=== PATIENT | male | born 1945 | race Caucasian/White ===

== ENCOUNTER 2018-07-18 15:43 | Inpatient (IN) | payer OTHER ==
--- OUTSIDE RECORDS SUMMARY | 2018-07-18 16:01 | XMS REPORT | Continuity of Care Document ---
:1945 Author Organization Interface Problems Problem Status Onset Classification Date Comments Source Date Reported Essential Active Problem 06/18/2018 Data Mischer tremor<sup>7, 8, 017 migrated Neuro 9</sup> from [employer] [facility] on 05/12/2016. Originally documented as Essential tremor. HEADACHE Active [facility] 017 [facility] FOOT PAIN OR Active [facility] INJURY 017 Hospital CELLULITIS OF Active [facility] RIGHT LOWER LIMB 017 [facility] Essential Active Problem 07/01/2016 Data [facility] tremor<sup>7</sup 017 migrated Rehab, > from [facility] Works on 05/12/2016. Originally documented as Essential tremor. WOUND Active [facility] 017 Rehab ACUTE RESPIRATORY Active [facility] FAILURE, ACUTE 016 Hospital RESPIRA SHORTNESS OF Active [facility] BREATH 016 [facility] ACUTE COPD Active [facility] EXACERBATION 016 [facility] COPD Active [facility] 016 [facility] 305.1 - TOBACCO Active OPID [facility] USE DIS 015 Tobacco Active Problem 06/18/2018 Data Mischer dependence 015 migrated Neuro syndrome<sup>22, from GE 23</sup> [facility] on 08/12/14. Tobacco Active Problem 07/23/2015 Data [facility] dependence 015 migrated Hospital syndrome<sup>19, from GE 20</sup> [facility] on 08/12/14. Tobacco Active Problem 07/01/2016 Data [facility] dependence 015 migrated Rehab, syndrome<sup>20, from GE [facility] 21</sup> [facility] on 08/12/14. TOBACCO ABUSE Active Condition 07/23/2014 Medical 015 Group Carotid Active Problem 06/18/2018 Data Mischer bruit<sup>1, 015 migrated Neuro, 2</sup> from [facility] Rehab, on 08/12/14. [facility] Weight Active Problem 06/18/2018 Data Mischer decreased<sup>24, 015 migrated Neuro 25</sup> from [facility] on 08/12/14. Weight Active Problem 07/23/2015 Data [facility] decreased<sup>21, 015 migrated Hospital 22</sup> from [facility] on 08/12/14. Weight Active Problem 07/01/2016 Data [facility] decreased<sup>22, 015 migrated Rehab, 23</sup> from [facility] on 08/12/14. LOSS OF WEIGHT Active Condition 07/23/2014 Medical 015 Group CAROTID BRUIT, Active Condition 07/23/2014 Medical RIGHT 015 Group PNEUMONIA Active [facility] 015 Hospital COPD EXACERBATION Active [address] RASH AND OTHER Inactive Condition 07/23/2014 [facility] NONSPECIFIC SKIN 015 Group ERUPTION RASH Active [facility] 014 Hospital CELLULITIS FAILED Active [facility] OUTPATIENT 014 Hospital THERAPY Erysipelas<sup>6< Resolved Problem 06/18/2018 Data Mischer /sup> 014 migrated Neuro, from [facility] Re[facility], on 09/26/14. 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 [facility] Hypogonadism<sup> Active Problem 06/18/2018 Data Mischer 10, 11, 12</sup> 014 migrated Neuro from [facility] on 08/12/14. Hypothyroidism<arboleda Active Problem 06/18/2018 Data Mischer p>13, 14, 014 migrated Neuro 15</sup> from [facility] on 08/12/14. Osteoporosis<sup> Active Problem 06/18/2018 Data Mischer 16, 17, 18</sup> 014 migrated Neuro from [facility] on 08/12/14. Peripheral Active Problem 06/18/2018 Data Mischer vascular 014 migrated Neuro disease<sup>19, from GE 20, 21</sup> [facility] on 08/12/14. Hypogonadism<sup> Active Problem 07/23/2015 Data [facility] 7, 8, 9</sup> 014 migrated Hospital from [facility] on 08/12/14. Hypothyroidism<arboleda Active Problem 07/23/2015 Data [facility] p>10, 11, 014 migrated Hospital 12</sup> from [facility] on 08/12/14. Osteoporosis<sup> Active Problem 07/23/2015 Data [facility] 13, 14, 15</sup> 014 migrated Hospital from [facility] on 08/12/14. Peripheral Active Problem 07/23/2015 Data [facility] vascular 014 migrated Hospital disease<sup>16, from 17, 18</sup> [facility] on 08/12/14. Hypogonadism<sup> Active Problem 07/01/2016 Data [facility] 8, 9, 10</sup> 014 migrated Rehab, from [facility] on 08/12/14. Hypothyroidism<arboleda Active Problem 07/01/2016 Data [facility] p>11, 12, 014 migrated Rehab, 13</sup> from [facility] on 08/12/14. Osteoporosis<sup> Active Problem 07/01/2016 Data [facility] 14, 15, 16</sup> 014 migrated Rehab, from [facility] on 08/12/14. Peripheral Active 09/16/2 Problem 07/01/2016 Data [facility] vascular 014 migrated Rehab, disease<sup>17, from [facility] 18, 19</sup> [facility] on 08/12/14. HYPOTHYROIDISM Active Condition 07/23/2014 Medical 014 Group HYPOGONADISM Active Condition 07/23/2014 Medical 014 Group SHOULDER PAIN, Inactive Condition 07/23/2014 Medical LEFT 014 Group PERIPHERAL Active Condition 07/23/2014 Medical VASCULAR DISEASE 014 Group OSTEOPOROSIS Active Condition 07/23/2014 Medical 014 Group NEOPLASM, SKIN, Inactive Condition 07/23/2014 Medical UNCERTAIN 014 Group BEHAVIOR COPD Active Condition 07/23/2014 Medical 014 Group DYSPNEA Active [address] Cellulitis Resolved Problem 06/18/2018 [facility] Neuro,[facility] Rehab,[facility] COPD Active Problem 06/18/2018 VERONICA Tavares,[facility] Neuro Hx of Resolved Problem 06/18/2018 [facility] osteoporosis Neuro,[facility] Rehab,[facility] Hypertension Active Problem 06/18/2018 [facility] Neuro,[facility] Rehab,[facility] Hypothyroidism Resolved Problem 06/18/2018 [facility] Rehab,[facility] PAD (<span Active Problem 06/18/2018 Mischer ID="[id number]"> Neuro, Confirmed</span>) OPID Anusha,[facility] Rehab,[facility] PVD (<span Active Problem 09/11/2017 Mischer ID="[id number]" Neuro, >Confirmed</span> Anusha ) Rehab,[facility] Short-term memory Active Problem 06/18/2018 [facility] loss Neuro Current smoker Active Problem 06/18/2018 [facility] Neuro,[facility] Rehab,[facility] COPD Active Problem 07/01/2016 OPID [facility] COPD Resolved Problem 09/14/2012 [facility] COPD Active Problem 07/01/2016 OPID Anusha,[facility] Rehab Cellulitis of Active Diagnosis 02/18/2017 W Kristin right lower limb Infectious Disease RESPIRATORY Active [facility] ABNORM [facility] CHR AIRWAY Active [facility] OBSTRUCT NEC Hospital CELLULITIS NOS Active [facility] CHRONIC Active [facility] OBSTRUCTIVE [facility] PULMON DISEASE W ACU ACUTE RESPIRATORY Active [facility] FAILURE, UNSP W Hospital HYPOXI Medications Medication Details Route Status Patient Ordering Order Source Instructions Provider Date rivastigmine See Active 06/26/ Mischer 1.5 mg oral Instructions 2018 Neuro capsule , # 180 unknown unit, Refill(s) 3, TAKE 1 CAPSULE BY MOUTH TWICE DAILY, Pharmacy: [facility] [id number] primidone 50 mg See Active 06/05/ Mischer oral tablet Instructions 2018 Neuro , 4 tabs twice a day, # 720 tab, 3 Refill(s), Pharmacy: [facility] [id number] Megestrol See Active 05/12/ Mischer Acetate 40 Instructions 2018 Neuro MG/ML Oral , # 600 mL, Suspension SHAKE WELL AND TAKE 20 ML BY MOUTH EVERY DAY, Pharmacy: [facility] [id number] rivastigmine 1.5 mg=1 No Longer 04/24/ Mischer 1.5 mg oral cap, PO, Active 2017 Neuro capsule BID, # 60 cap, 3 Refill(s), Pharmacy: [facility] [id number] diazepam 2 mg 2 mg=1 tab, Active Mischer oral tablet PO, Daily, 2018 Neuro PRN Tremor, X 30 day, # 30 tab, 3 Refill(s) Enoxaparin 40 mg, 0.4 No Longer 06/29/ [facility] mL, Route: Active 2017 [facility] SUB-Q, Drug form: INJ, [id number], Dosing Weight 71.682, kg, Change to Q AM, Start date: 06/29/16 9:00:00 CDT, Stop date: 07/28/16 9:00:00 CDTNotes: (Same as: Lovenox) Miralax 17 gm, 1 Inactive 06/28/ [facility] pkt, Route: 2017 Hospital PO, Drug form: PWDR, Daily, Dosing Weight 71.682, kg, Start date: 06/28/16 13:31:00 CDT, Duration: 30 day, Stop date: 07/28/16 9:00:00 CDTNotes: Dissolve in 8 oz of water or juice. (Same as: Miralax) Dulcolax 10 mg, 1 Inactive [facility] Laxative supp, Route: [address] [facility] [address], Drug form: SUPP, ONCE, Dosing Weight 71.682, kg, PRN Constipation , Start date: 06/28/16 13:16:00 CDTNotes: (Same As: Dulcolax, Bisco-Lax) metoprolol 75 mg, 3 Inactive [facility] tartrate tab, Route: 2017 [facility] PO, Drug form: TAB, BID, Dosing Weight 71.682, kg, Start date: 06/28/16 12:00:00 CDT, Stop date: 07/28/16 0:00:00 CDTNotes: (Same as: Lopressor) metoprolol 50 mg=1 tab, Active [facility] tartrate 50 mg PO, BID, # 2017 Hospital oral tablet 60 tab, 0 Refill(s) Nystatin 426289 500,000 Active [facility] UNT/ML Oral unit=5 mL, 2017 Hospital Suspension S&SPIT, QID, X 7 day, # 140 mL, 0 Refill(s) amLODIPine 10 10 mg=1 tab, Active [facility] mg oral tablet PO, Daily, # 2017 Hospital 30 tab, 0 Refill(s) metoprolol 50 mg, 1 No Longer [facility] tartrate tab, Route: Active [address] [place] [address] PO, Drug form: TAB, BID, Dosing Weight 71.682, kg, Start date: 06/25/16 21:00:00 CDT, Stop date: 07/25/16 9:00:00 CDTNotes: (Same as: Lopressor) Levaquin 500 mg, 1 No Longer [facility] tab, Route: Active 2017 [facility] PO, Drug form: TAB, [id number], Dosing Weight 71.682, kg, Start date: 06/25/16 15:00:00 CDT, Duration: 7 day, Stop date: 07/01/16 15:00:00 CDT cholecalciferol 1,000 No Longer [facility] IntlUnit, 1 Active 2017 Hospital tab, Route: PO, Drug form: TAB, Daily, Dosing Weight 71.682, kg, Start date: 06/25/16 9:00:00 CDT, Duration: 30 day, Stop date: 07/24/16 9:00:00 CDTNotes: Same as : Vitamin D3 clopidogrel 75 mg, 1 No Longer [facility] tab, Route: Active 2017 Hospital PO, Drug form: TAB, Daily, Dosing Weight 71.682, kg, Start date: 06/25/16 9:00:00 CDT, Duration: 30 day, Stop date: 07/24/16 9:00:00 CDTNotes: (Same As: Plavix) Vitamin E 400 No Longer An[facility] IntlUnit, 1 Active 2017 Hospital cap, Route: PO, Drug form: CAP, Daily, Dosing Weight 71.682, kg, Start date: 06/25/16 9:00:00 CDT, Duration: 30 day, Stop date: 07/24/16 9:00:00 CDT Furosemide 20 20 mg, 1 No Longer An[facility] MG Oral Tablet tab, Route: Active 2017 Hospital PO, Drug form: TAB, Daily, Dosing Weight 71.682, kg, Start date: 06/25/16 9:00:00 CDT, Duration: 30 day, Stop date: 07/24/16 9:00:00 CDTNotes: (Same as: Lasix) May cause GI upset. Give with food or milk. Fish Oil 1,000 mg, 1 No Longer [facility] cap, Route: Active 2017 Hospital PO, Drug form: CAP, Daily, Dosing Weight 71.682, kg, Start date: 06/25/16 9:00:00 CDT, Duration: 30 day, Stop date: 07/24/16 9:00:00 CDTNotes: (Same as: MaxEPA, [place] 3 fish oil ) Non-Formular y Drug Vitamin C 2,000 mg, 4 No Longer [facility] tab, Route: Active 2017 Hospital PO, Drug form: TAB, Daily, Dosing Weight 71.682, kg, Start date: 06/25/16 9:00:00 CDT, Duration: 30 day, Stop date: 07/24/16 9:00:00 CDTNotes: (Same as: Vitamin C) Spiriva 18 No Longer An[facility] microgram, 1 Active 2017 Hospital inhalation, Route: INHALATION, Drug form: CAP, RDaily, Dosing Weight 71.682, kg, Start date: 06/25/16 8:00:00 CDT, Duration: 30 day, Stop date: 07/24/16 8:00:00 CDTNotes: (Same As: Spiriva) metoprolol 25 mg, 1 No Longer [facility] tartrate tab, Route: Active 2017 Hospital PO, Drug form: TAB, BID, Dosing Weight 71.682, kg, Start date: 06/24/16 23:50:00 CDT, Stop date: 07/24/16 21:00:00 CDTNotes: (Same as: Lopressor) atorvastatin 10 mg, 1 No Longer [facility] tab, Route: Active 2017 Hospital PO, Drug form: TAB, Bedtime, Dosing Weight 71.682, kg, Start date: 06/24/16 21:00:00 CDT, Duration: 30 day, Stop date: 07/23/16 21:00:00 CDTNotes: (Same As: Lipitor) Symbicort 2 puff, No Longer An[facility] 160/4.5 Route: Active 2017 Hospital inhalation INHALATION, aerosol with Drug Form: adapter AERO/A, Dosing Weight 71.682, kg, RBID, Start date: 06/24/16 20:00:00 CDT, Duration: 30 day, Stop date: 07/24/16 8:00:00 CDTNotes: (Same as: Symbicort) WASTE: Aerosol - Return to Pharmacy pantoprazole 40 mg, 1 No Longer [facility] tab, Route: Active 2017 Hospital PO, Drug form: ECTAB, Before Dinner, Dosing Weight 71.682, kg, Start date: 06/24/16 16:30:00 CDT, Duration: 30 day, Stop date: 07/23/16 16:30:00 CDTNotes: Tablet should not be chewed or crushed. (Same as: Protonix) Amlodipine 10 mg, 1 No Longer [facility] tab, Route: Active 2017 Hospital PO, Drug form: TAB, Daily, Dosing Weight 71.682, kg, Start date: 06/24/16 14:00:00 CDT, Stop date: 07/24/16 9:00:00 CDTNotes: (Same as: Norvasc) Primidone 50 mg, 1 No Longer [facility] tab, Route: Active [address] [place] [address] PO, Drug form: TAB, TID, Dosing Weight 71.682, kg, Start date: 06/24/16 13:00:00 CDT, Duration: 30 day, Stop date: 07/24/16 9:00:00 CDTNotes: (Same as: Mysoline) Albuterol 0.83 2.49 mg, 3 No Longer [facility] MG/ML Inhalant mL, Route: Active [address] [place] [address] Solution INHALATION, Drug form: SOLN, RQ4H, Dosing Weight 71.682, kg, PRN Wheezing, Start date: 06/24/16 3:09:00 CDT, Duration: 30 day, Stop date: 07/24/16 3:08:00 CDTNotes: SEE RT DOCUMENTATIO N (Same as: Proventil) vancomycin + 1,250 mg, No Longer An[facility] sodium chloride Route: IVPB, [address] 0.9% 250 mL INJ [id number], (for IV set) Start date: 250 mL 06/23/16 11:00:00 CDT, Duration: 30 day, Stop date: 07/22/16 23:00:00 CDTNotes: TIME CRITICAL MEDICATION (Same As: Vancocin) Infusion rate 2001 mg: infuse over 2.5 hours MEDICATION WASTE Product Size: 1000 mg Product Wasted: ___ mg ketOROLAC 15 15 mg, 0.5 No Longer [facility] mg/mL mL, Route: [address] injectable IVP, Drug solution form: INJ, Q6H, Dosing Weight 71.682, kg, PRN Pain Score 7-10, Start date: 06/22/16 21:27:00 CDT, Duration: 4 day, Stop date: 06/26/16 21:26:00 CDTNotes: (Same as:Toradol) IV bolus must be given >15 seconds. Give IM administrati on slowly and deeply into the muscle. Not for use > 4 days MEDICATION WASTE Product Size: 30 mg Product Wasted: _15__ mg Tylenol 650 mg, 1 No Longer An[facility] supp, Route: Active [address] [facility] [address], Drug form: SUPP, Q4H, Dosing Weight 71.682, kg, PRN For Temp > 100.4 F, Start date: 06/22/16 21:19:00 CDT, Duration: 30 day, Stop date: 07/22/16 21:18:00 CDTNotes: Max acetaminophe k=8426 mg/day (4 gm/day). (Same as: Tylenol) Levofloxacin 750 mg, 150 No Longer [facility] mL, Route: Active 2017 [facility] IVPB, Drug form: SOLN, [id number], Dosing Weight 71.682, kg, For CrCl > 49ml/min, Start date: 06/22/16 21:00:00 CDT, Duration: 10 day, Stop date: 07/01/16 21:00:00 CDTNotes: (Same as:Levaquin) Levofloxacin 500 mg, 100 Inactive An[facility] mL, Route: 2017 [facility] IVPB, Drug form: SOLN, [id number], Dosing Weight 71.682, kg, Start date: 06/22/16 20:00:00 CDT, Duration: 30 day, Stop date: 07/21/16 20:00:00 CDTNotes: (Same as:Levaquin) Hydralazine 10 mg, 0.5 Inactive [facility] mL, Route: [address] [place] [address] IV, Drug form: INJ, ONCE, Dosing Weight 71.682, kg, Start date: 06/22/16 18:32:00 CDT, Stop date: 06/22/16 18:32:00 CDTNotes: (Same as: Apresoline) Push over 5 minutes sodium chloride 1,000 mL, No Longer [facility] 0.9% 1000 ml Rate: [address] [place] [address] INJ 1,000 mL ml/hr, Infuse over: 20 hr, Route: IV, Dosing Weight 71.682 kg, Total Volume: 1,000, Start date: 06/22/16 18:30:00 CDT, Duration: 30 day, Stop date: 07/22/16 18:29:00 CDT Vancomycin 1,000 mg, No Longer An[facility] Route: IVPB, Active [address] [place] [address] [id number], Dosing Weight 71.682, kg, Start date: 06/22/16 10:00:00 CDT, Duration: 30 day, Stop date: 07/21/16 22:00:00 CDTNotes: MEDICATION WASTE Product Size: 1000 mg Product Wasted: _0__ mg Hydralazine 10 mg, 0.5 No Longer An[facility] mL, Route: Active 2017 [facility] IVP, Drug form: INJ, Q4H, Dosing Weight 71.682, kg, PRN Hypertension , Start date: 06/22/16 5:35:00 CDT, Duration: 30 day, Stop date: 07/22/16 5:34:00 CDT Dilaudid 1 mg, 0.5 Inactive An[facility] mL, Route: 2017 [facility] IVP, Drug form: INJ, Q4H, Dosing Weight 71.682, kg, PRN Pain Score 7-10, Start date: 06/22/16 5:34:00 CDT, Duration: 30 day, Stop date: 07/22/16 5:33:00 CDTNotes: Same as Dilaudid Albuterol 0.833 3 mL, Route: No Longer [facility] MG/ML / NEB, Drug Active [address] [place] [address] Ipratropium Form: SOLN, [place] 0.167 Dosing MG/ML Inhalant Weight Solution 71.682, kg, RQ6H, Start date: 06/22/16 2:00:00 CDT, Duration: 30 day, Stop date: 07/21/16 20:00:00 CDTNotes: (Same as: Duoneb) Nystatin [id number] 500,000 No Longer [facility] UNT/ML Oral unit, 5 mL, Active 2017 Hospital Suspension Route: S&SPIT, Drug form: SUSP, QID, Dosing Weight 71.682, kg, Start date: 06/22/16 0:00:00 CDT, Duration: 30 day, Stop date: 07/21/16 21:00:00 CDT Albuterol 0.83 2.49 mg, 3 No Longer [facility] MG/ML Inhalant mL, Route: Active 2017 Hospital Solution NEB, Drug form: SOLN, RQ2H, Dosing Weight 71.682, kg, PRN Respiratory Protocol, Start date: 06/21/16 23:08:00 CDT, Duration: 30 day, Stop date: 07/21/16 23:07:00 CDTNotes: SEE RT DOCUMENTATIO N (Same as: Proventil) Enoxaparin 40 mg, 0.4 No Longer [facility] mL, Route: Active 2017 Hospital SUB-Q, Drug form: INJ, [id number], Dosing Weight 71.682, kg, Start date: 06/21/16 23:00:00 CDT, Duration: 30 day, Stop date: 07/20/16 23:00:00 CDTNotes: (Same as: Lovenox) Albuterol 0.83 2.49 mg, Inactive [facility] MG/ML Inhalant Route: BANNER, 2016 Hospital Solution PRN, Dosing Weight 71.682, kg, PRN Respiratory Protocol, Start date: 06/21/16 22:54:00 CDT, Duration: 30 day, Stop date: 07/21/16 22:53:00 CDT Albuterol 0.833 3 mL, Route: Inactive An[facility] MG/ML / NEB, Dosing 2017 Hospital Ipratropium Weight [place] 0.167 71.682, kg, MG/ML Inhalant PRN, PRN Solution Respiratory Protocol, Start date: 06/21/16 22:54:00 CDT, Duration: 30 day, Stop date: 07/21/16 22:53:00 CDT Guaifenesin 200 mg, 10 No Longer [facility] mL, Route: Active 2017 Hospital PO, Drug form: SYRP, Q4H, Dosing Weight 71.682, kg, PRN Cough, Start date: 06/21/16 22:54:00 CDT, Duration: 30 day, Stop date: 07/21/16 22:53:00 CDTNotes: (Same as: Robitussin) Sodium Chloride 1,000 mL, No Longer [facility] 0.154 MEQ/ML Rate: 125 Active 2017 Hospital Injectable ml/hr, Solution Infuse over: 8 hr, Route: IV, Dosing Weight 71.682 kg, Total Volume: 1,000, Start date: 06/21/16 22:51:00 CDT, Duration: 30 day, Stop date: 07/21/16 22:50:00 CDT Saline Flush 10 ml, Inactive An[facility]a 0.9% Route: IVP, 2016 [facility] Drug Form: INJ, Dosing Weight 71.682, kg, PRN, PRN Line Flush, Start date: 06/21/16 22:51:00 CDT, Duration: 30 day, Stop date: 07/21/16 22:50:00 CDT Acetaminophen 650 mg, 2 No Longer [facility] tab, Route: Active 2016 [facility] PO, Drug form: TAB, Q4H, Dosing Weight 71.682, kg, PRN Pain 1-3/Temp > 100.4 F, Start date: 06/21/16 22:51:00 CDT, Duration: 30 day, Stop date: 07/21/16 22:50:00 CDT Ondansetron 4 mg, 2 mL, No Longer An[facility] Route: IVP, Active 2016 [facility] Drug form: INJ, Q6H, Dosing Weight 71.682, kg, PRN Nausea & Vomiting, Start date: 06/21/16 22:51:00 CDT, Duration: 30 day, Stop date: 07/21/16 22:50:00 CDTNotes: (Same as: Stephania) MEDICATION WASTE Product Size: 4 mg Product Wasted: ___ mg Acetaminophen 1 tab, No Longer Anusha 325 MG / Route: PO, Active 2016 [facility] Hydrocodone Drug Form: Bitartrate 5 MG TAB, Dosing Oral Tablet Weight 71.682, kg, Q4H, PRN Pain Score 4-6, Start date: 06/21/16 22:51:00 CDT, Duration: 30 day, Stop date: 07/21/16 22:50:00 CDT Morphine 2 mg, 1 mL, No Longer An[facility] Route: IVP, Active 2016 [facility] Drug form: SOLN, Q4H, Dosing Weight 71.682, kg, PRN Pain Score 7-10, Start date: 06/21/16 22:51:00 CDT, Duration: 30 day, Stop date: 07/21/16 22:50:00 CDT vancomycin + 1,750 mg, Inactive [facility] sodium chloride Route: IVPB, [address] [place] [address] 0.9% 500 mL INJ ONCE, Start (for IV set) date: 500 mL 06/21/16 22:00:00 CDT, Stop date: 06/21/16 22:00:00 CDTNotes: MEDICATION WASTE Product Size: 1750 mg Product Wasted: __0_ mg Furosemide 20 PO, 0 Active An[facility]a MG Oral Tablet Refill(s) 2017 [facility] pantoprazole 40 40 mg=1 tab, Active [facility] mg oral enteric PO, Daily, 0 2017 [facility] coated tablet Refill(s) Symbicort 2 puff, Active [facility] 160/4.5 INHALATION, [address] [place] [address] inhalation BID, 0 aerosol with Refill(s) adapter Vancomycin 1,000 mg, Inactive An[facility] Route: IVPB, [address] [place] [address] Drug form: INJ, ONCE, Dosing Weight 69.091, kg, Priority: STAT, Start date: 06/21/16 20:24:00 CDT, Stop date: 06/21/16 20:24:00 CDT, TIME CRITICAL MEDICATION Ciprofloxacin 400 mg, Inactive An[facility]a Route: IVPB, [address] [place] [address] ONCE, Dosing Weight 69.091, kg, Priority: STAT, Start date: 06/21/16 20:24:00 CDT, Stop date: 06/21/16 20:24:00 CDT Albuterol 0.833 3 ml, Route: Inactive Anusha MG/ML / INHALATION, 2017 [facility] Ipratropium Drug Form: [place] 0.167 SOLN, Dosing MG/ML Inhalant Weight Solution 69.091, kg, [DuoNeb] ONCE, Start date: 06/21/16 20:12:00 CDT, Stop date: 06/21/16 20:12:00 CDTNotes: (Same as: Duoneb) Acetaminophen 650 mg, 2 Inactive [facility] tab, Route: 2017 Hospital PO, Drug form: TAB, ONCE, Dosing Weight 69.091, kg, Priority: STAT, Start date: 06/21/16 19:42:00 CDT, Stop date: 06/21/16 19:42:00 CDTNotes: Do not exceed 4 gm/day. (Same as: Tylenol) Sodium Chloride 25 mL, No Longer An[facility] 0.9% IV Route: IV, Active 2017 Hospital Start date: 06/21/16 18:40:00 CDT, Duration: 30 day, Stop date: 07/21/16 18:39:00 CDT, PRN Line Flush Hydralazine 20 mg, 1 mL, Inactive An[facility] Route: IVP, 2016 [facility] Drug form: INJ, ONCE, Dosing Weight 69.091, kg, Priority: STAT, Start date: 06/21/16 18:36:00 CDT, Stop date: 06/21/16 18:36:00 CDTNotes: (Same as: Apresoline) Push over 5 minutes Morphine 4 mg, 1 mL, Inactive An[facility] Route: IVP, 2017 [facility] Drug form: INJ, ONCE, Dosing Weight 69.091, kg, Priority: STAT, Start date: 06/21/16 18:36:00 CDT, Stop date: 06/21/16 18:36:00 CDTNotes: (Same as:MORPhine Sulfate) Morphine 4 mg, 1 mL, Inactive An[facility]a Route: IVP, 2017 [facility] Drug form: INJ, ONCE, Dosing Weight 69.091, kg, Priority: STAT, Start date: 06/21/16 15:38:00 CDT, Stop date: 06/21/16 15:38:00 CDTNotes: (Same as:MORPhine Sulfate) Diphenhydramine 25 mg, 0.5 Inactive An[facility] mL, Route: 2017 [facility] IVP, Drug form: INJ, ONCE, Dosing Weight 69.091, kg, Priority: STAT, Start date: 06/21/16 15:38:00 CDT, Stop date: 06/21/16 15:38:00 CDTNotes: (Same as: Benadryl) Metoclopramide 10 mg, 2 mL, Inactive An[facility] Route: IVP, [address] [place] [address] Drug form: INJ, ONCE, Dosing Weight 69.091, kg, Priority: STAT, Start date: 06/21/16 15:38:00 CDT, Stop date: 06/21/16 15:38:00 CDTNotes: (Same as: Reglan) Sodium Chloride 1,000 mL, Inactive An[facility] 0.154 MEQ/ML 1000 ml/hr, 2017 [facility] Injectable Infuse Over: Solution 1 hr, Route: IV, 1,000, Drug form: INJ, ONCE, Priority: STAT, Dosing Weight 69.091 kg, Start date: 06/21/16 15:38:00 CDT, Duration: 1 doses or times, Stop date: 06/21/16 15:38:00 CDT Saline Flush 10 mL, No Longer An[facility] 0.9% Route: IVP, Active [address] [place] [address] Drug Form: INJ, Dosing Weight 69.091, kg, PRN, PRN Line Flush, Start date: 06/21/16 14:29:00 CDT, Duration: 30 day, Stop date: 07/21/16 14:28:00 CDTNotes: (Same as: BD Posiflush) Doxycycline 100 mg, 1 Inactive Anusha cap, Route: [address] [place] [address] PO, Drug form: CAP, [id number], Dosing Weight 74.545, kg, Start date: 05/18/16 15:00:00 [employer], Duration: 28 day, Stop date: 06/15/16 3:00:00 CDTNotes: (Same as: Vibramycin) No milk/antacid s/iron. Ciprofloxacin 500 mg, 1 Inactive Anusha tab, Route: [address] [place] [address] PO, Drug form: TAB, [id number], Dosing Weight 74.545, kg, Start date: 05/18/16 15:00:00 [employer], Duration: 14 day, Stop date: 06/01/16 3:00:00 CDTNotes: May interfere w/enteral feedings - Take 1 hr before or 2 hrs after antacids, dairy pdt & minerals. On empty stomach. minocycline 100 100 mg=1 Active Anusha mg oral capsule cap, PO, 2017 [facility] Q12H, X 30 day, # 60 cap, 0 Refill(s), [facility] [id number] ciprofloxacin 500 mg=1 Active Anusha 500 mg oral tab, PO, 2017 [facility] tablet Q12H, X 30 day, # 60 tab, 0 Refill(s), [id number] Nicotine 14 mg, 1 Inactive Anusha patch, 2017 [facility] Route: TOP, Drug form: ERFILM, Daily, Dosing Weight 74.545, kg, Start date: 05/18/16 9:00:00 [employer], Duration: 30 day, Stop date: 06/16/16 9:00:00 CDTNotes: (Same as: Habitrol) "Remove old patch before application of new patch" WASTE: F/P - P Waste Black; E - P Waste Black Protonix 40 mg, 1 Inactive Anusha tab, Route: 2017 [facility] PO, Drug form: ECTAB, Before Breakfast, Dosing Weight 74.545, kg, Start date: 05/18/16 7:30:00 [employer], Duration: 30 day, Stop date: 06/16/16 7:30:00 CDTNotes: Tablet should not be chewed or crushed. (Same as: Protonix) vancomycin + 1,000 mg, Inactive Anusha sodium chloride Route: IVPB, [address] [place] [address] 0.9% INJ 250 mL [id number], Start date: 05/18/16 6:30:00 [employer], Duration: 30 day, Stop date: 06/16/16 18:30:00 CDTNotes: TIME CRITICAL MEDICATION (Same As: Vancocin) Infusion rate 2001 mg: infuse over 2.5 hours MEDICATION WASTE Product Size: 1000 mg Product Wasted: _0__ mg Cleocin HCl 600 mg, 50 No Longer Anusha mL, Route: Active 2017 [facility] IVPB, Drug form: INJ, [id number], Start date: 05/17/16 21:30:00 [employer], Duration: 30 day, Stop date: 06/16/16 13:30:00 CDT atorvastatin 10 mg, 1 No Longer Anusha tab, Route: Active 2017 [facility] PO, Drug form: TAB, Bedtime, Dosing Weight 74.545, kg, Start date: 05/17/16 21:00:00 [employer], Duration: 30 day, Stop date: 06/15/16 21:00:00 CDTNotes: (Same As: Lipitor) Symbicort 2 No Longer Anusha 160/4.5 inhalation, Active 2017 [facility] inhalation Route: aerosol with INHALATION, adapter Drug Form: AERO/A, Dosing Weight 74.545, kg, RBID, Start date: 05/17/16 20:00:00 [employer], Duration: 30 day, Stop date: 06/16/16 8:00:00 CDTNotes: (Same as: Symbicort) WASTE: Aerosol - Return to Pharmacy Vitamin C 1000 2,000 mg=2 Active Anusha mg oral tablet tab, PO, 2017 [facility] Daily, # 30 tab, 0 Refill(s) Spiriva 18 Active Anusha microgram, 2017 [facility] INHALATION, Daily, # 30 ea, 0 Refill(s) vitamin E 400 400 Active Anusha intl units oral IntlUnit=[address] [place] [address] capsule cap, PO, Daily, # 100 cap, 0 Refill(s) predniSONE 50 See Active Anusha mg oral tablet Instructions [address] [place] [address] , PRN Allergies, 1 tab PO PRN asthma attacks., 0 Refill(s) clopidogrel 75 75 mg=1 tab, Active Anusha mg oral tablet PO, Daily, # 2017 [facility] 30 tab, 0 Refill(s) levofloxacin 500 mg=1 No Longer Anusha 500 mg oral tab, PO, Active 2017 [facility] tablet Daily, # 10 tab, 0 Refill(s) cholecalciferol 1,000 Active Anusha 1000 intl units IntlUnit=1 2017 [facility] oral tablet tab, PO, Daily, # 30 tab, 0 Refill(s) vancomycin + 1,750 mg, Inactive Anusha sodium chloride Route: IVPB, [address] [place] [address] 0.9% 500 mL INJ ONCE, Start (for IV set) date: 500 mL 05/17/16 17:30:00 [employer], Stop date: 05/17/16 17:30:00 CSTNotes: TIME CRITICAL MEDICATION (Same As: Vancocin) Infusion rate 2001 mg: infuse over 2.5 hours MEDICATION WASTE Product Size: 1000 mg Product Wasted: _250__ mg Primidone 50 mg, 1 No Longer Anusha tab, Route: Active 2017 [facility] PO, Drug form: TAB, TID, Dosing Weight 74.545, kg, Start date: 05/17/16 17:00:00 [employer], Duration: 30 day, Stop date: 06/16/16 13:00:00 CDTNotes: (Same as: Mysoline) Enoxaparin 40 mg, 0.4 No Longer Anusha mL, Route: Active 2016 [facility] SUB-Q, Drug form: INJ, [id number], Dosing Weight 74.545, kg, Start date: 05/17/16 17:00:00 [employer], Duration: 30 day, Stop date: 06/15/16 17:00:00 CDTNotes: (Same as: Lovenox) metoprolol 25 mg, 1 No Longer Anusha tartrate tab, Route: Active 2017 [facility] PO, Drug form: TAB, Q12H, Dosing Weight 74.545, kg, Priority: STAT, Start date: 05/17/16 16:42:00 [employer], Duration: 30 day, Stop date: 06/16/16 9:00:00 CDTNotes: (Same as: Lopressor) Ondansetron 4 mg, 2 mL, No Longer Anusha Route: IVP, Active 2016 [facility] Drug form: INJ, Q8H, Dosing Weight 74.545, kg, PRN Nausea & Vomiting, Start date: 05/17/16 16:41:00 [employer], Duration: 30 day, Stop date: 06/16/16 16:40:00 CDTNotes: (Same as: Zofran) MEDICATION WASTE Product Size: 4 mg Product Wasted: _0__ mg Simethicone 80 mg, 1 No Longer Anusha tab, Route: Active 2017 [facility] PO, Drug form: CHEWTAB, Q6H, Dosing Weight 74.545, kg, PRN Gas, Start date: 05/17/16 16:41:00 [employer], Duration: 2 doses or times, Stop date: Limited # of timesNotes: (Same as: Mylicon) Bisacodyl 10 mg, 1 No Longer Anusha supp, Route: Active 2017 [facility] [address], Drug form: SUPP, Daily, Dosing Weight 74.545, kg, PRN Constipation , Start date: 05/17/16 16:41:00 [employer], Duration: 30 day, Stop date: 06/16/16 16:40:00 CDTNotes: (Same As: Dulcolax, Bisco-Lax) Acetaminophen 650 mg, 2 No Longer Anusha tab, Route: Active 2017 [facility] PO, Drug form: TAB, Q4H, Dosing Weight 74.545, kg, PRN For Temp > 100.4 F, Start date: 05/17/16 16:41:00 [employer], Duration: 30 day, Stop date: 06/16/16 16:40:00 CDTNotes: Do not exceed 4 gm/day. (Same as: Tylenol) Tessalon Perles 100 mg, 1 No Longer Anusha cap, Route: Active 2017 [facility] PO, Drug form: CAP, Q8H, Dosing Weight 74.545, kg, PRN Cough, Start date: 05/17/16 16:41:00 [employer], Duration: 30 day, Stop date: 06/16/16 16:40:00 CDTNotes: (Same As: Tessalon Perles) "Do Not Crush" Loratadine 10 mg, 1 No Longer Anusha tab, Route: Active 2017 [facility] PO, Drug form: TAB, Daily, Dosing Weight 74.545, kg, PRN Allergies, Start date: 05/17/16 16:41:00 [employer], Duration: 30 day, Stop date: 06/16/16 16:40:00 CDTNotes: 1 hr before meals (Same as: Claritin) Non-formular y item Hydralazine 10 mg, 0.5 No Longer Anusha mL, Route: Active 2017 [facility] IVP, Drug form: INJ, Q4H, Dosing Weight 74.545, kg, PRN Elevated BP, SBP > 160 mmhg, Start date: 05/17/16 16:41:00 [employer], Duration: 30 day, Stop date: 06/16/16 16:40:00 CDTNotes: (Same as: Apresoline) Push over 5 minutes Acetaminophen 1 tab, No Longer Anusha 325 MG / Route: PO, Active [address] [place] [address] Hydrocodone Drug Form: Bitartrate 5 MG TAB, Dosing Oral Tablet Weight [Hachita 5/325] 74.545, kg, Q4H, PRN Pain Score 1-3, Start date: 05/17/16 16:41:00 [employer], Duration: 30 day, Stop date: 06/16/16 16:40:00 CDTNotes: (Same as: Hachita 325/5) Do not exceed 4gm/day of acetaminophe n. Acetaminophen 2 tab, No Longer Anusha 325 MG / Route: PO, Active [address] [place] [address] Hydrocodone Drug Form: Bitartrate 10 TAB, Dosing MG Oral Tablet Weight [Hachita 10/325] 74.545, kg, Q6H, PRN Pain Score 7-10, Start date: 05/17/16 16:41:00 [employer], Duration: 30 day, Stop date: 06/16/16 16:40:00 CDTNotes: Do not exceed 4gm/day of acetaminophe n. (Same as: Hachita 325/10) Lorazepam 0.5 mg, 1 No Longer Anusha tab, Route: Active [address] [place] [address] PO, Drug form: TAB, Q8H, Dosing Weight 74.545, kg, PRN as needed for anxiety, Start date: 05/17/16 16:41:00 [employer], Duration: 30 day, Stop date: 06/16/16 16:40:00 CDTNotes: (Same as: Ativan) Morphine 1 mg, 0.5 No Longer Anusha mL, Route: Active [address] [place] [address] IVP, Drug form: SOLN, Q4H, Dosing Weight 74.545, kg, PRN Pain Score 7-10, if unable to take po, Start date: 05/17/16 16:41:00 [employer], Duration: 30 day, Stop date: 06/16/16 16:40:00 CDT Albuterol 0.833 3 mL, Route: No Longer Anusha MG/ML / NEB, Drug Active [address] [place] [address] Ipratropium Form: SOLN, [place] 0.167 Dosing MG/ML Inhalant Weight Solution 74.545, kg, RQID, PRN Shortness of breath, Start date: 05/17/16 16:41:00 [employer], Duration: 30 day, Stop date: 06/16/16 16:40:00 CDTNotes: (Same as: Duoneb) Vancomycin 1,118.175 Inactive Anusha mg, Route: 2017 [facility] IVPB, [id number], Dosing Weight 74.545, kg, TIME CRITICAL MEDICATION, Priority: STAT, Start date: 05/17/16 16:39:00 [employer], Duration: 30 day, Stop date: 06/16/16 8:39:00 CDT Clindamycin 600 mg, Inactive Anusha Route: IVPB, [address] [place], [place] [id number], Dosing Weight 74.545, kg, Priority: STAT, Start date: 05/17/16 16:39:00 [employer], Duration: 30 day, Stop date: 06/16/16 8:39:00 CDT Saline Flush 10 ml, No Longer Anusha 0.9% Route: IVP, Active [address] [place] [address] Drug Form: INJ, Dosing Weight 74.545, kg, PRN, PRN Line Flush, Start date: 05/17/16 16:39:00 [employer], Duration: 30 day, Stop date: 06/16/16 17:38:00 CDTNotes: (Same as: BD Posiflush) Sodium Chloride 1,000 mL, No Longer Anusha 0.154 MEQ/ML Rate: 100 Active 2017 [facility] Injectable ml/hr, Solution Infuse over: 10 hr, Route: IV, Dosing Weight 74.545 kg, Total Volume: 1,000, Start date: 05/17/16 16:39:00 [employer], Duration: 30 day, Stop date: 06/16/16 16:38:00 CDT Acetaminophen 650 mg, Inactive Anusha Route: PO, 2017 [facility] Drug form: TAB, Q4H, Dosing Weight 74.545, kg, PRN Pain 1-3/Temp > 100.4 F, Start date: 05/17/16 16:39:00 [employer], Duration: 30 day, Stop date: 06/16/16 16:38:00 CDT Clindamycin 600 mg, 50 Inactive Anusha mL, Route: [address] [place] [address] IVPB, Drug form: INJ, ONCE, Dosing Weight 74.545, kg, Priority: STAT, Start date: 05/17/16 12:31:00 [employer], Stop date: 05/17/16 12:31:00 [employer] Symbicort 2 puff, Active Anusha 160/4.5 INHALATION, 2015 [facility] inhalation RBID, # 1 aerosol with ea, 0 adapter Refill(s) tiotropium 18 Active Anusha 0.018 MG/ACTUAT microgram=1 2015 [facility] Inhalant Powder cap, [Spiriva] INHALATION, Daily, Use two inhalations of one capsule for each dose, # 30 cap, 1 Refill(s) predniSONE 10 See Special Active Anusha mg oral tablet Instructions [address] [place] [address] , PO, Daily, 12 day regimen: Days 1-4 - 30 mg (3 tabs) daily Days 5-8 - 20 mg (2 tabs) daily Days 9-12 - 10 mg (1 tab) daily, X 12 day, # 24 tab, 0 Refill(s) methylPREDNISol 40 mg, 1 mL, No Longer Anusha one SODium Route: IVP, Active [address] [place] [address] SUCCinate Drug form: INJ, Q12H, Dosing Weight 68.182, kg, Start date: 07/18/15 21:00:00 CDT, Duration: 30 day, Stop date: 08/17/15 9:00:00 CDTNotes: (Same as:Solu-MEDR OL, A-Methapred) Albuterol 0.833 3 ml, Route: No Longer Anusha MG/ML / INHALATION, Active [address] [place] [address] Ipratropium Drug Form: [place] 0.167 SOLN, Dosing MG/ML Inhalant Weight Solution 68.182, kg, [DuoNeb] RQ6H, Start date: 07/18/15 14:00:00 CDT, Duration: 30 day, Stop date: 08/17/15 8:00:00 CDTNotes: (Same as: Duoneb) Acetylcysteine 200 mg, 1 No Longer Anusha 200 MG/ML mL, Route: Active 2015 [facility] Inhalant NEB, Drug Solution Form: SOLN, Dosing Weight 68.182, kg, RQ6H, Start date: 07/18/15 14:00:00 CDT, Duration: 30 day, Stop date: 08/17/15 8:00:00 CDT Symbicort 2 puff, No Longer Anusha 160/4.5 Route: Active 2015 [facility] inhalation INHALATION, aerosol with Drug Form: adapter AERO/A, Dosing Weight 68.182, kg, RBID, Start date: 07/18/15 11:42:00 CDT, Duration: 30 day, Stop date: 08/17/15 8:00:00 CDTNotes: (Same as: Symbicort) WASTE: Aerosol - Return to Pharmacy Spiriva 18 No Longer Anusha microgram, 1 Active 2015 [facility] inhalation, Route: INHALATION, Drug form: CAP, Daily, Dosing Weight 68.182, kg, Priority: NOW, Start date: 07/18/15 11:42:00 CDT, Duration: 30 day, Stop date: 08/17/15 9:00:00 CDTNotes: (Same As: Spiriva) remove patch 1 patch, No Longer Anusha Route: TOP, Active 2015 [facility] Drug form: ERFILM, Daily, Start date: 07/17/15 21:00:00 CDT, Duration: 30 day, Stop date: 08/15/15 21:00:00 CDTNotes: WASTE: F/P - P Waste Black; E - P Waste Black Ipratropium 500 No Longer Anusha [place] 0.2 microgram, Active 2016 [facility] MG/ML Inhalant 2.5 mL, Solution Route: NEB, Drug form: SOLN, RQ4H, Dosing Weight 68.182, kg, Start date: 07/16/15 11:00:00 CDT, Duration: 30 day, Stop date: 08/15/15 7:00:00 CDTNotes: SEE RT DOCUMENTATIO N (Same as:Atrovent) Levalbuterol 0.63 mg, 3 No Longer Anusha mL, Route: Active 2016 [facility] NEB, Drug form: SOLN, RQ4H, Dosing Weight 68.182, kg, Start date: 07/16/15 11:00:00 CDT, Duration: 30 day, Stop date: 08/15/15 7:00:00 CDTNotes: SEE RT DOCUMENTATIO N (Same as:Xopenex) Non-Formular y Nicotine 21 mg, 1 No Longer Anusha patch, Active 2016 [facility] Route: TOP, Drug form: ERFILM, Daily, Dosing Weight 68.182, kg, Start date: 07/16/15 9:00:00 CDT, Duration: 30 day, Stop date: 08/13/15 21:00:00 CDTNotes: (Same as: Habitrol) WASTE: F/P - P Waste Black; E - P Waste Black Ipratropium 500 Inactive Anusha [place] 0.2 microgram, 2016 [facility] MG/ML Inhalant 2.5 mL, Solution Route: BANNER, Drug form: SOLN, RQID, Dosing Weight 68.182, kg, Start date: 07/16/15 7:00:00 CDT, Duration: 30 day, Stop date: 08/14/15 19:00:00 CDTNotes: SEE RT DOCUMENTATIO N (Same as:Atrovent) Acetylcysteine 200 mg, 1 No Longer Anusha 200 MG/ML mL, Route: Active 2015 [facility] Inhalant NEB, Drug Solution Form: SOLN, Dosing Weight 68.182, kg, RQID, Start date: 07/16/15 7:00:00 CDT, Duration: 30 day, Stop date: 08/14/15 19:00:00 CDT methylPREDNISol 125 mg, 2 No Longer Anusha one SODium mL, Route: Active 2015 [facility] SUCCinate IVP, Drug form: INJ, Q8H, Dosing Weight 68.182, kg, Start date: 07/16/15 6:00:00 CDT, Duration: 30 day, Stop date: 08/14/15 22:00:00 CDTNotes: (Same as:Solu-MEDR OL, A-Methapred) Albuterol 0.833 3 mL, Route: No Longer Anusha MG/ML / NEB, Drug Active 2015 [facility] Ipratropium Form: SOLN, [place] 0.167 Dosing MG/ML Inhalant Weight Solution 68.182, kg, RQ6H, Start date: 07/16/15 2:00:00 CDT, Duration: 30 day, Stop date: 08/14/15 20:00:00 CDTNotes: (Same as: Duoneb) Levalbuterol 0.63 mg, 3 Inactive Anusha mL, Route: [address] [place] [address] NEB, Drug form: SOLN, RQ6H, Dosing Weight 68.182, kg, Start date: 07/16/15 2:00:00 CDT, Duration: 30 day, Stop date: 08/14/15 20:00:00 CDTNotes: SEE RT DOCUMENTATIO N (Same as:Xopenex) Non-Formular y methylPREDNISol 85 mg, 1.36 Inactive Anusha one mL, Route: 2016 [facility] IV, Drug form: INJ, ONCE, Start date: 07/15/15 22:30:00 CDT, Stop date: 07/15/15 22:30:00 CDTNotes: (Same as:Solu-MEDR OL, A-Methapred) methylPREDNISol 125 mg, 2 Inactive Anusha one SODium mL, Route: [address] [place] [address] SUCCinate IVP, Drug form: INJ, Q8H, Dosing Weight 68.182, kg, Start date: 07/15/15 22:00:00 CDT, Duration: 30 day, Stop date: 08/14/15 14:00:00 CDTNotes: (Same as:Solu-MEDR OL, A-Methapred) atorvastatin 10 mg, 1 No Longer 07/15[facility] Anusha tab, Route: Active 2016 [facility] PO, Drug form: TAB, Bedtime, Dosing Weight 68.182, kg, Start date: 07/15/15 22:00:00 CDT, Duration: 30 day, Stop date: 08/14/15 21:00:00 CDTNotes: (Same As: Lipitor) Plavix 75 mg, 1 No Longer Anusha tab, Route: Active 2016 [facility] PO, Drug form: TAB, Bedtime, Dosing Weight 68.182, kg, Start date: 07/15/15 22:00:00 CDT, Duration: 30 day, Stop date: 08/14/15 21:00:00 CDTNotes: (Same As: Plavix) Levaquin 750 mg, 150 No Longer Anusha mL, Route: Active 2016 [facility] IVPB, Drug form: SOLN, [id number], Dosing Weight 68.182, kg, Start date: 07/15/15 22:00:00 CDT, Duration: 30 day, Stop date: 08/13/15 22:00:00 CDTNotes: (Same as:Levaquin) Ativan 1 mg, 0.5 No Longer Anusha mL, Route: Active 2016 [facility] IVP, Drug form: INJ, Q8H, Dosing Weight 68.182, kg, PRN Anxiety, Start date: 07/15/15 21:46:00 CDT, Duration: 30 day, Stop date: 08/14/15 21:45:00 CDTNotes: (Same as: Ativan) Albuterol 0.83 2.49 mg, 3 No Longer Anusha MG/ML Inhalant mL, Route: Active 2015 [facility] Solution NEB, Drug form: SOLN, RQ2H, Dosing Weight 68.182, kg, PRN Wheezing, Priority: Routine, Start date: 07/15/15 21:13:00 CDT, Duration: 30 day, Stop date: 08/14/15 21:12:00 CDTNotes: SEE RT DOCUMENTATIO N (Same as: Proventil) Enoxaparin 40 mg, 0.4 No Longer Anusha mL, Route: Active 2016 [facility] SUB-Q, Drug form: INJ, [id number], Dosing Weight 68.182, kg, Start date: 07/15/15 21:00:00 CDT, Duration: 30 day, Stop date: 08/13/15 21:00:00 CDTNotes: (Same as: Lovenox) Albuterol 0.833 3 mL, Route: Inactive Anusha MG/ML / NEB, Drug 2016 [facility] Ipratropium Form: SOLN, [place] 0.167 Dosing MG/ML Inhalant Weight Solution 68.182, kg, RQ6H, STAT, Start date: 07/15/15 20:16:00 CDT, Duration: 30 day, Stop date: 08/14/15 20:00:00 CDTNotes: (Same as: Duoneb) Sodium Chloride 25 mL, No Longer Anusha 0.9% IV Route: IV, Active 2015 [facility] Start date: 07/15/15 18:14:00 CDT, Duration: 30 day, Stop date: 08/14/15 18:13:00 CDT, PRN Line Flush BD Normal 10 mL, No Longer Anusha Saline Flush Route: IV, Active 2015 [facility] Drug Form: INJ, PRN, PRN Line Flush, Start date: 07/15/15 18:14:00 CDT, Stop date: 08/14/15 18:13:52 CDTNotes: (Same as: BD Posiflush) Ipratropium 500 Inactive Anusha microgram, 2016 [facility] Route: NEB, ONCE, Dosing Weight 68.182, kg, Start date: 07/15/15 18:11:00 CDT, Stop date: 07/15/15 18:11:00 CDT Xopenex 1.25 mg, 0.5 Inactive Anusha mL, Route: 2016 [facility] NEB, Drug form: SOLN, ONCE, Dosing Weight 68.182, kg, Start date: 07/15/15 18:11:00 CDT, Stop date: 07/15/15 18:11:00 CDTNotes: Same as: Xopenex Non-Formular y High Concentrated (0.5ml) SEE RT DOCUMENTATIO N Lorazepam 1 mg, 0.5 Inactive Anusha mL, Route: 2016 [facility] IVP, Drug form: INJ, ONCE, Dosing Weight 68.182, kg, Priority: STAT, Start date: 07/15/15 18:10:00 CDT, Stop date: 07/15/15 18:10:00 CDTNotes: (Same as: Ativan) Sodium Chloride 1,000 mL, Inactive Anusha 0.154 MEQ/ML 1,000 ml/hr, 2016 [facility] Injectable Infuse Over: Solution 1 hr, Route: IV, 1,000, Drug form: INJ, ONCE, Priority: STAT, Dosing Weight 68.182 kg, Start date: 07/15/15 18:05:00 CDT, Duration: 1 doses or times, Stop date: 07/15/15 18:05:00 CDT Magnesium 2 gm, 50 mL, Inactive Anusha Sulfate Route: IVPB, [address] [place] [address] Drug form: INJ, ONCE, Dosing Weight 68.182, kg, Priority: STAT, Start date: 07/15/15 18:05:00 CDT, Duration: 30 min, Stop date: 07/15/15 18:05:00 CDTNotes: WASTE: F/P - Sink; E - [employer]ash [facility] Albuterol 0.833 3 ml, Route: Inactive Anusha MG/ML / INHALATION, [address] [place] [address] Ipratropium Drug Form: [place] 0.167 SOLN, Dosing MG/ML Inhalant Weight Solution 68.182, kg, [DuoNeb] ONCE, Start date: 07/15/15 18:05:00 CDT, Stop date: 07/15/15 18:05:00 CDTNotes: (Same as: Duoneb) Brovana 15 No Longer Anusha microgram, [address] [place] [address] mL, Route: NEB, Drug form: SOLN, RBID, Dosing Weight 68.182, kg, Start date: 07/15/15 8:00:00 CDT, Duration: 30 day, Stop date: 08/13/15 20:00:00 CDTNotes: SEE RT DOCUMENTATIO N Same as Brovana atorvastatin 10 mg, 1 Inactive 07/[facility] Anusha tab, Route: [address] [place] [address] PO, Drug form: TAB, Bedtime, Dosing Weight 71.932, kg, Start date: 07/14/15 21:00:00 CDT, Duration: 30 day, Stop date: 08/12/15 21:00:00 CDTNotes: (Same As: Lipitor) Plavix 75 mg, 1 Inactive Anusha tab, Route: [address] [place] [address] PO, Drug form: TAB, Bedtime, Dosing Weight 71.932, kg, Start date: 07/14/15 21:00:00 CDT, Duration: 30 day, Stop date: 08/12/15 21:00:00 CDTNotes: (Same As: Plavix) Levofloxacin 750 mg=1 On Hold Anusha 750 MG Oral tab, PO, 2016 [facility] Tablet Q24H, X 10 [Levaquin] day, # 10 tab, 0 Refill(s) predniSONE 20 40 mg=2 tab, On Hold Anusha mg oral tablet PO, Daily, X 2016 [facility] 5 day, # 10 tab, 0 Refill(s) Brovana 15 Inactive Anusha microgram, [address] [place] [address] mL, Route: NEB, Drug form: SOLN, RBID, Dosing Weight 71.932, kg, Start date: 07/14/15 8:00:00 CDT, Duration: 30 day, Stop date: 08/12/15 20:00:00 CDTNotes: SEE RT DOCUMENTATIO N Same as Brovana Protonix 40 mg, 1 Inactive Anusha tab, Route: [address] [place] [address] PO, Drug form: ECTAB, Before Breakfast, Dosing Weight 71.932, kg, Start date: 07/14/15 7:30:00 CDT, Duration: 30 day, Stop date: 08/12/15 7:30:00 CDTNotes: Tablet should not be chewed or crushed. (Same as: Protonix) Albuterol 0.833 3 mL, Route: Inactive Anusha MG/ML / NEB, Drug [address] [place] [address] Ipratropium Form: SOLN, [place] 0.167 Dosing MG/ML Inhalant Weight Solution 71.932, kg, RQ6H, Routine, Start date: 07/14/15 2:00:00 CDT, Duration: 30 day, Stop date: 08/12/15 20:00:00 CDTNotes: (Same as: Duoneb) Solu-Medrol 125 mg, 2 Inactive Anusha mL, Route: [address] [place] [address] IVP, Drug form: INJ, [id number], Dosing Weight 71.932, kg, Start date: 07/14/15 2:00:00 CDT, Duration: 30 day, Stop date: 08/12/15 20:00:00 CDTNotes: (Same as:Solu-MEDR OL, A-Methapred) Melatonin 3 mg, 1 tab, Inactive Anusha Route: PO, 2016 [facility] Drug form: TAB, Bedtime, Dosing Weight 71.932, kg, PRN Sleep, Start date: 07/14/15 0:40:00 CDT, Duration: 30 day, Stop date: 08/13/15 0:39:00 CDT, ..Notes: (Same as: Melatonin) Acetaminophen 1 tab, Inactive Anusha 325 MG / Route: PO, 2016 [facility] Hydrocodone Drug Form: Bitartrate 10 TAB, Dosing MG Oral Tablet Weight [Hachita 10/325] 71.932, kg, Q6H, PRN Pain Score 4-6, Start date: 07/14/15 0:39:00 CDT, Duration: 30 day, Stop date: 08/13/15 0:38:00 CDTNotes: Do not exceed 4gm/day of acetaminophe n. (Same as: Hach[place] 325/10) Hydralazine 10 mg, 0.5 Inactive Anusha mL, Route: [address] [place] [address] IVP, Drug form: INJ, Q4H, Dosing Weight 71.932, kg, PRN Elevated BP, SBP > 160 mmhg, Start date: 07/14/15 0:39:00 CDT, Duration: 30 day, Stop date: 08/13/15 0:38:00 CDTNotes: (Same as: Apresoline) Push over 5 minutes Acetaminophen 650 mg, 2 Inactive Anusha tab, Route: 2016 [facility] PO, Drug form: TAB, Q4H, Dosing Weight 71.932, kg, PRN For Temp > 100.4 F, Start date: 07/14/15 0:39:00 CDT, Duration: 30 day, Stop date: 08/13/15 0:38:00 CDTNotes: Do not exceed 4 gm/day. (Same as: Tylenol) Tessalon Perles 100 mg, 1 Inactive Anusha cap, Route: 2016 [facility] PO, Drug form: CAP, Q8H, Dosing Weight 71.932, kg, PRN Cough, Start date: 07/14/15 0:39:00 CDT, Duration: 30 day, Stop date: 08/13/15 0:38:00 CDTNotes: (Same As: Caitlin Cox) "Do Not Crush" Morphine 1 mg, 0.5 Inactive Anusha mL, Route: 2016 [facility] IVP, Drug form: INJ, Q4H, Dosing Weight 71.932, kg, PRN Pain Score 7-10, if unable to take po, Start date: 07/14/15 0:39:00 CDT, Duration: 30 day, Stop date: 08/13/15 0:38:00 CDTNotes: (Same as:MORPhine Sulfate) Loratadine 10 mg, 1 Inactive Anusha tab, Route: 2016 [facility] PO, Drug form: TAB, Daily, Dosing Weight 71.932, kg, PRN Allergies, Start date: 07/14/15 0:39:00 CDT, Duration: 30 day, Stop date: 08/13/15 0:38:00 CDTNotes: 1 hr before meals (Same as: Claritin) Bisacodyl 10 mg, 1 Inactive Anusha supp, Route: [address] [facility] [address], Drug form: SUPP, Daily, Dosing Weight 71.932, kg, PRN Constipation , Start date: 07/14/15 0:39:00 CDT, Duration: 30 day, Stop date: 08/13/15 0:38:00 CDTNotes: (Same As: Dulcolax, Bisco-Lax) Ondansetron 4 mg, 2 mL, Inactive Anusha Route: [facility], [facility] [facility] Drug form: INJ, Q8H, Dosing Weight 71.932, kg, PRN Nausea & Vomiting, Start date: 07/14/15 0:39:00 CDT, Duration: 30 day, Stop date: 08/13/15 0:38:00 CDTNotes: (Same as: Zofran) MEDICATION WASTE Product Size: 4 mg Product Wasted: _0__ mg Simethicone 80 mg, 1 Inactive [facility] tab, Route: 2016 [facility] PO, Drug form: [place], Q6H, Dosing Weight 71.932, kg, PRN Gas, Start date: 07/14/15 0:39:00 CDT, Duration: 2 doses or times, Stop date: Limited # of timesNotes: (Same as: Mylicon) Lorazepam 0.5 mg, 1 Inactive [facility] tab, Route: 2016 Hospital PO, Drug form: TAB, Q8H, Dosing Weight 71.932, kg, PRN as needed for anxiety, Start date: 07/14/15 0:39:00 CDT, Duration: 30 day, Stop date: 08/13/15 0:38:00 CDTNotes: (Same as: Ativan) Flagyl 500 mg, 100 Inactive [facility] mL, Route: 2016 [facility] IV, Drug form: INJ, [id number], Dosing Weight 71.932, kg, Priority: NOW, Start date: 07/14/15 0:32:00 CDT, Duration: 30 day, Stop date: 08/12/15 17:00:00 CDTNotes: (Same as: Flagyl) Avoid alcohol. Levaquin 750 mg, 150 No Longer [facility] mL, Route: Active [address] [place] [address], Drug form: SOLN, [id number], Dosing Weight 71.932, kg, Start date: 07/13/15 20:00:00 CDT, Duration: 30 day, Stop date: 08/11/15 20:00:00 CDTNotes: (Same as:Levaquin) Enoxaparin 40 mg, 0.4 No Longer [facility] mL, Route: Active 2016 [facility], Drug form: INJ, [id number], Dosing Weight 71.932, kg, Start date: 07/13/15 20:00:00 CDT, Duration: 30 day, Stop date: 08/11/15 20:00:00 CDTNotes: (Same as: Lovenox) Vitamin C 500 mg, PO, On Hold [facility] Daily 2016 [facility] Albuterol 0.83 2.49 mg, 3 Inactive [facility] MG/ML Inhalant mL, Route: 2016 [facility] Solution [facility]ANNER, Drug form: SOLN, ONCE, Dosing Weight 71.932, kg, Priority: STAT, Start date: 07/13/15 19:53:00 CDT, Stop date: 07/13/15 19:53:00 CDTNotes: SEE RT DOCUMENTATIO N (Same as: Proventil) arformoterol 15 On Hold [facility] 0.0075 MG/ML microgram=2 2015 [facility] Inhalant mL, NEB, BID Solution [Brovana] Saline Flush 10 ml, No Longer [facility] 0.9% Route: IVP, Active 2015 [facility] Drug Form: INJ, Dosing Weight 71.932, kg, PRN, PRN Line Flush, Start date: 07/13/15 19:47:00 CDT, Duration: 30 day, Stop date: 08/12/15 19:46:00 CDTNotes: (Same as: BD Posiflush) Sodium Chloride 1,000 mL, No Longer [facility] 0.154 MEQ/ML Rate: 75 Active 2015 [facility] Injectable ml/hr, Solution Infuse over: 13.3 hr, Route: IV, Dosing Weight 71.932 kg, Total Volume: 1,000, Start date: 07/13/15 19:47:00 CDT, Duration: 30 day, Stop date: 08/12/15 19:46:00 CDT Morphine 2 mg, 1 mL, No Longer [facility] Route: IVP, Active 2015 [facility] Drug form: INJ, Q4H, Dosing Weight 71.932, kg, PRN Pain Score 7-10, Start date: 07/13/15 19:47:00 CDT, Duration: 30 day, Stop date: 08/12/15 19:46:00 CDTNotes: (Same as:MORPhine Sulfate) Acetaminophen 1 tab, No Longer [facility] 325 MG / Route: PO, Active 2015 [facility] Hydrocodone Drug Form: Bitartrate 5 MG TAB, Dosing Oral Tablet Weight 71.932, kg, Q4H, PRN Pain Score 4-6, Start date: 07/13/15 19:47:00 CDT, Duration: 30 day, Stop date: 08/12/15 19:46:00 CDTNotes: (Same as: Hachita 325/5) Do not exceed 4gm/day of acetaminophe n. Docusate 100 mg, 1 No Longer [facility] cap, Route: Active 2016 [facility] PO, Drug form: CAP, BID, Dosing Weight 71.932, kg, PRN Constipation , Start date: 07/13/15 19:47:00 CDT, Duration: 30 day, Stop date: 08/12/15 19:46:00 CDTNotes: (Same as: Colace) Ondansetron 4 mg, 2 mL, No Longer [facility] Route: IVP, Active 2015 [facility] Drug form: INJ, Q6H, Dosing Weight 71.932, kg, PRN Nausea & Vomiting, Start date: 07/13/15 19:47:00 CDT, Duration: 30 day, Stop date: 08/12/15 19:46:00 CDTNotes: (Same as: Stephania) MEDICATION WASTE Product Size: 4 mg Product Wasted: _0__ mg Roflumilast 0.5 0 Refill(s) Inactive [facility] MG Oral Tablet [address] [place] [address] [Daliresp] Albuterol 0.833 0 Refill(s) Inactive [facility] MG/ML / [address] [place] [address] Ipratropium [place] 0.167 MG/ML Inhalant Solution atorvastatin 10 10 mg=1 tab, On Hold [facility] mg oral tablet PO, Bedtime, 2016 [facility] 0 Refill(s) Sodium Chloride 25 mL, No Longer [facility] 0.9% IV Route: IV, Active [facility] Start date: 07/13/15 15:59:00 CDT, Duration: 30 day, Stop date: 08/12/15 15:58:00 CDT, PRN Line Flush Albuterol 0.833 3 mL, Route: Inactive [facility] MG/ML / NEB, Drug 2015 [facility] Ipratropium Form: SOLN, [place] 0.167 Dosing MG/ML Inhalant Weight Solution 71.932, kg, Q15Min, STAT, Start date: 07/13/15 15:50:00 CDT, Duration: 2 doses or times, Stop date: 07/13/15 16:05:00 CDTNotes: (Same as: Olinda) methylPREDNISol 125 mg, 2 Inactive [facility] one SODium mL, Route: 2016 Hospital SUCCinate IVP, Drug form: INJ, ONCE, Dosing Weight 71.932, kg, Priority: STAT, Start date: 07/13/15 15:50:00 CDT, Stop date: 07/13/15 15:50:00 CDTNotes: (Same as:Solu-MEDR OL, A-Methapred) Saline Flush 10 mL, Inactive [facility] 0.9% Route: IVP, 2015 [facility] Drug Form: INJ, Dosing Weight 71.932, kg, PRN, PRN Line Flush, Start date: 07/13/15 15:50:00 CDT, Duration: 30 day, Stop date: 08/12/15 15:49:00 CDTNotes: (Same as: BD Posiflush) Doxycycline 100 mg, PO, No Longer [facility] Q12H Active 2015 [facility] Acetylcysteine 400 mg, 2 No Longer [facility] 200 MG/ML mL, Route: Active 2015 [facility] Inhalant INHALATION, Solution Drug form: DAWNA, [id number], Dosing Weight 71.023, kg, Start date: 05/06/15 15:00:00, Duration: 30 day, Stop date: 06/05/15 11:00:00Note s: WASTE: F/P - Black; E - [employer] Acetylcysteine 400 mg, 4 No Longer [facility] 200 MG/ML mL, Route: Active 2015 [facility] Inhalant INHALATION, Solution Drug form: SOLN, RQ8H, Dosing Weight 71.023, kg, Start date: 05/05/15 15:00:00, Duration: 30 day, Stop date: 06/04/15 7:00:00Notes : WASTE: F/P - Black; E - [employer] Trash [facility] methylPREDNISol 40 mg, 1 mL, No Longer [facility] one SODium Route: IVP, Active 2015 [facility] SUCCinate Drug form: INJ, Q8H, Dosing Weight 71.023, kg, Priority: Routine, Start date: 05/05/15 0:00:00, Duration: 30 day, Stop date: 06/03/15 16:00:00Note s: (Same as:Solu-MEDR OL, A-Methapred) Albuterol 0.833 3 ml, Route: No Longer [facility] MG/ML / INHALATION, Active 2015 [facility] Ipratropium Drug Form: [place] 0.167 SOLN, Dosing MG/ML Inhalant Weight Solution 71.023, kg, [DuoNeb] RQ4H, Start date: 05/04/15 19:00:00, Duration: 30 day, Stop date: 06/03/15 15:00:00Note s: (Same as: Duoneb) BD Normal 10 mL, No Longer [facility] Saline Flush Route: IV, Active 2015 [facility] Drug Form: INJ, PRN, PRN Line Flush, Start date: 05/04/15 17:43:00, Duration: 30 day, Stop date: 06/03/15 18:42:00Note s: (Same as: BD Posiflush) Sodium Chloride IV, 0 ml/hr, No Longer [facility] 0.9% IV PRN, PRN Active 2015 [facility] Line Flush, Start date: 05/04/15 17:42:00, Duration: 30, 25 ml Levaquin 750 mg, 150 No Longer [facility] mL, Route: Active 2015 [facility] IVPB, Drug form: SOLN, [id number], Dosing Weight 71.023, kg, Start date: 05/04/15 17:00:00, Duration: 30 day, Stop date: 06/02/15 17:00:00Note s: (Same as:Levaquin) Tessalon Perles 200 mg, 2 No Longer [facility] cap, Route: Active 2015 [facility] PO, Drug form: CAP, TID, Dosing Weight 71.023, kg, PRN Cough, Start date: 05/04/15 16:18:00, Duration: 30 day, Stop date: 06/03/15 16:17:00Note s: (Same As: Tessalon Perles) "Do Not Crush" Robitussin-AC 5 ml, Route: No Longer [facility] oral syrup PO, Drug Active 2015 [facility] Form: SYRP, Dosing Weight 71.023, kg, Q4H, PRN Cough/Conges tion, Start date: 05/04/15 16:18:00, Duration: 30 day, Stop date: 06/03/15 16:17:00Note s: (Same As: Radha MCCONNELL) Unknown Home 2 puffs, Active [facility] Medication INHALATION, 2016 [facility] BID, experimental drug no name, Refill(s) 0 PREDNISONE 10 4 po daily Active [facility] MG TABS on days 1-4, 2014 [facility] 3 po daily on days 5-8, 2 po daily on days 9-12, 1 po daily on days 13-16 AUGMENTIN 1 tablet No Longer Medical 875-125 MG TABS twice daily Active 2014 Group for 14 days PREDNISONE 10 4 po daily No Longer Medical MG TABS on days 1-4, Active 2014 [facility] 3 po daily on days 5-8, 2 po daily on days 9-12, 1 po daily on days 13-16 AUGMENTIN 1 tablet No Longer Medical 875-125 MG TABS twice daily Active 2013 Group for 10 days DOXYCYCLINE 1 tablet No Longer Medical HYCLATE 100 MG twice daily Active 2013 Group TABS for 10 days SYMBICORT Two puffs Active Medical 160-4.5 MCG/ACT twice a day. 2013 Group AERO ALENDRONATE 1 po weekly Active Medical SODIUM 70 MG 2013 Group TABS SPIRIVA Inhale one Active Medical HANDIHALER 18 capsule 2013 Group MCG CAPS daily ARMOUR THYROID 1 po qd Active [facility] 60 MG TABS 2013 Group CLOPIDOGREL 1 po qd Active Medical BISULFATE 75 MG 2013 Group TABS FISH OIL 1000 1 po qd Active Medical MG CAPS 2013 Group VITAMIN D3 5000 1 po qd Active Medical UNIT CAPS 2013 Group TESTOSTERONE inject .5 mL No Longer Medical CYPIONATE OIL every 10 Active 2013 Group days ALBUTEROL use as Active Medical SULFATE NEBU needed 2013 Group ARMOUR THYROID 1 po qd Active Medical 60 MG TABS 2013 Group dexamethasone 10 mg, 1 mL, No Longer [facility] Route: IV, Active 2013 [facility] Drug form: INJ, Q6H, Start date: 05/17/13 12:00:00, Duration: 30 day, Stop date: 06/16/13 6:00:00 ciprofloxacin 500 mg=1 Active [facility] 500 mg oral tab, PO, 2013 [facility] tablet Q12H, # 14 tab, 0 Refill(s) methylPREDNISol 40 mg, Inactive [facility] one SODium Route: IVP, 2013 [facility] SUCCinate Q6H, Dosing Weight 80.909, kg, Priority: Routine, Start date: 05/16/13 18:00:00, Duration: 30 day, Stop date: 06/15/13 12:00:00 Acetylcysteine 2 mL, Route: Inactive [facility] 100 MG/ML BANNER, Drug 2013 [facility] Inhalant Form: SOLN, Solution Dosing Weight 80.909, kg, Q8H, Start date: 05/16/13 16:00:00, Duration: 30 day, Stop date: 06/15/13 8:00:00 acetylcysteine 200 mg, 1 No Longer [facility] mL, Route: Active 2013 [facility], Drug Form: SOLN, RQ8H, Start date: 05/16/13 15:00:00, Duration: 30 day, Stop date: 06/15/13 7:00:00 Albuterol 0.833 3 ml, Route: No Longer [facility] MG/ML / INHALATION, Active 2013 [facility] Ipratropium Drug Form: [place] 0.167 SOLN, Dosing MG/ML Inhalant Weight Solution 80.909, kg, [DuoNeb] RQ4H, Start date: 05/16/13 15:00:00, Duration: 30 day, Stop date: 06/15/13 11:00:00(Joe obrien as: Duoneb) Cipro 400 mg, 200 No Longer [facility] mL, Route: Active 2013 [facility] IVPB, Drug form: INJ, [id number], Dosing Weight 80.909, kg, Start date: 05/16/13 13:00:00, Duration: 30 day, Stop date: 06/15/13 1:00:00Do not refrigerate dexamethasone 4 mg, 1 mL, No Longer [facility] Route: IV, Active 2013 [facility] Drug form: INJ, Q6H, Start date: 05/16/13 12:21:00, Duration: 30 day, Stop date: 06/15/13 12:00:00Conc entration: 4mg/ml Sodium Chloride 25 mL, No Longer [facility] 0.9% IV Route: IV, Active 2013 [facility] Start date: 05/16/13 12:18:00, Duration: 30 day, Stop date: 06/15/13 13:17:00, PRN Line Flush BD Normal 10 mL, No Longer [facility] Saline Flush Route: IV, Active 2013 [facility] Drug Form: INJ, PRN, PRN Line Flush, Start date: 05/16/13 12:17:00, Duration: 30 day, Stop date: 06/15/13 13:16:00(Joe e as: BD Posiflush) Robitussin-AC 5 ml, Route: No Longer [facility] oral syrup PO, Drug Active 2013 [facility] Form: SYRP, Dosing Weight 80.909, kg, Q4H, PRN Cough/Conges tion, Start date: 05/16/13 12:04:00, Duration: 30 day, Stop date: 06/15/13 12:03:00(cod eine-guaifen esin 20-200mg/10m l LIQ) (Same As: Robitussin AC) predniSONE 20 20 mg, 1 PO Active [facility] mg oral tablet tab, PO, 2012 [facility] BID, 14 tab, Substitution Allowed, TAB DuoNeb 3 ml, INHALATION Active [facility] An[facility] inhalation INHALATION, 2012 [facility] solution Q4H, 120 ea, Substitution Allowed, Maintenance, SOLN DuoNeb 3 ml, Route: NEB No Longer [facility] inhalation NEB, Drug Active 2012 [facility] solution Form: SOLN, Dosing Weight 80.028, kg, RQ4H, Start date: 09/11/12 15:00:00, Duration: 30 day, Stop date: 10/11/12 11:00:00 albuterol-iprat 3 ml, INHALATION Active [facility] ropium 2.5-0.5 INHALATION, 2012 [facility] mg inhalation QID, 30 ea, solution Substitution Allowed, Maintenance, SOLN Combivent 2 puff, INHALER Active [facility] inhalation INHALER, 2012 [facility] aerosol with QID, 14 gm, adapter Substitution Allowed, Maintenance Symbicort 2 puff, INHALATION Active [facility] 160/4.5 INHALATION, 2012 [facility] inhalation BID, 10 gm, aerosol with Substitution adapter Allowed, Maintenance, AERO Ventolin HFA 90 2 puff, INHALATION Active [facility] mcg/inh INHALATION, 2012 [facility] inhalation QID, 17 gm, aerosol with Substitution adapter Allowed, Maintenance, AERO levofloxacin 500 mg, 1 PO Active [facility] 500 mg oral tab, PO, 2012 [facility] tablet Daily, 7 tab, Substitution Allowed predniSONE 20 20 mg, 1 PO Active [facility] mg oral tablet tab, PO, 2012 [facility] BID, Substitution Allowed, TAB Cipro 400 mg, 200 IVPB No Longer [facility] 09/11/ [facility] mL, Route: Active 2012 [facility] IVPB, Drug form: INJ, [id number], Dosing Weight 80.028, kg, Start date: 09/11/12 12:00:00, Duration: 30 day, Stop date: 10/11/12 0:00:00 methylPREDNISol 40 mg, 1 mL, IVP No Longer [facility] 09/11/ [facility] one SODium Route: IVP, Active 2012 [facility] SUCCinate Drug form: INJ, Q8H, Dosing Weight 80.028, kg, Priority: Routine, Start date: 09/11/12 12:00:00, Duration: 30 day, Stop date: 10/11/12 4:00:00 Sodium Chloride 25 mL, IV No Longer [facility] 09/11/ [facility] 0.9% IV Route: IV, Active 2012 [facility] Start date: 09/11/12 11:48:00, Duration: 30 day, Stop date: 10/11/12 11:47:00, PRN Line Flush BD Normal 10 mL, IV No Longer [facility] 09/11/ [facility] Saline Flush Route: IV, Active 2012 [facility] Drug Form: INJ, PRN, PRN Line Flush, Start date: 09/11/12 11:48:00, Duration: 30 day, Stop date: 10/11/12 11:47:00 Robitussin-AC 5 ml, Route: PO No Longer [facility] 09/11/ [facility] oral syrup PO, Drug Active 2012 [facility] Form: SYRP, Dosing Weight 80.028, kg, Q4H, PRN Cough/Conges tion, Start date: 09/11/12 11:36:00, Duration: 30 day, Stop date: 10/11/12 11:35:00 NS 1,000 mL 1,000 mL, IV No Longer [facility] 09/11/ [facility] Rate: [address] [place] [address] ml/hr, Infuse over: 10 hr, Route: IV, Dosing Weight 80.028 kg, Total Volume: 1,000, Start date: 09/11/12 11:36:00, Duration: 30 day, Stop date: 10/11/12 11:35:00 clopidogrel 1 tab(s) orally Active 75 mg orally JIMY W Kristin once a day Infectious Disease potassium 1 tab Oral Active Oral [facility] prednisolone 5 mL orally Active 15 mg/5 mL JIM[facility] W Kristin orally 2 Infectious times a day Disease levofloxacin 1 tab(s) orally Active 250 mg orally JIMY W Kristin every 24 Infectious hours Disease Furosemide 1 tab Oral Active Oral [facility] Infectious Disease Allergies, Adverse Reactions, Alerts Substance Category Reaction Severity Reaction Status Date Comments Source type Reported KEFLEX Drug KEFLEX [facility] allergy 5 [facility] cephalexin Assertion Drug Active 2exudative OPID <sup>1, allergy 5 dermatitis [facility] 2</sup> cephalexin Assertion Drug Active exudative [facility] <sup>2, 3, allergy 7 dermatitis Neuro 4</sup> cephalexin Assertion Drug Active exudative [facility] <sup>1, 2, allergy 7 dermatitis Rehab 3</sup> N.K.D.A. Adverse Info Not Adverse Active W Kristin Reaction Available Reaction 7 Infectiou s Disease Bactrim drug Allergy Active [facility] Keflex drug Allergy Active [facility] nka Assertion Drug Active [facility] sulfa Assertion Moderate Drug Active generalized [facility] drugs<sup> allergy rash [facility] 1</sup> sulfa Assertion Moderate Drug Active generalized [facility] drugs<sup> allergy rash Hospital 3</sup> sulfa Assertion Moderate Drug Active generalized [facility] drugs<sup> allergy rash Hospital 4</sup> Immunizations Immunization Date Given Site Status Last Updated Comments Source Results Order Name Results Value Reference Date Interpretation Comments Source Range ELECTROLYTE Sodium Lvl 132 meq/L 135 - 145 06/24 [facility] ELECTROLYTE Creatinine 0.51 mg/dL 0.50 - 06/24 [facility] 1[facility]40 [facility] ELECTROLYTE CO2 26 meq/L 24 - 32 06/24 [facility] ELECTROLYTE Chloride Lvl 97 meq/L 95 - 109 06/24 [facility] ELECTROLYTE Potassium 3.7 meq/L 3.5 - 5.1 06/24 [facility] ELECTROLYTE Calcium Lvl 7.8 mg/dL 8.5 - 10.5 06/24 [facility] ELECTROLYTE eGFR 109 06/24 Result Comment: The eGFR is calculated using the CKD-EPI formula. In most young, healthy individuals the eGFR will be > 90 mL/min/1.73m2. The eGFR declines with age. An eGFR of 60-89 may be normal in [facility] S mL/min/1.7 some populations, particularly the elderly, for whom the CKD-EPI formula has not been extensively validated. Use of the eGFR is not recommended in the following populations: Hospital 3m2 Individuals with unstable creatinine concentrations, including patients and those with serious co-morbid conditions. Patients with extremes in muscle mass or diet. The data above are obtained from the National Kidney Disease Education Program (NKDEP) which additionally recommends that when the eGFR is used in patients with extremes of body mass index for purposes of drug dosing, the eGFR should be multiplied by the estimated BMI. ELECTROLYTE AGAP 12.7 meq/L 10.0 - 06/24 [facility] 20[facility]0 [facility] ELECTROLYTE BUN 7 mg/dL 7 - 22 06/24 [facility] ELECTROLYTE Glucose Lvl 101 mg/dL 70 - 99 06/24 [facility] BACTERIAL - Strep Negative Negative 06/23 [facility] pneumoniae [facility] Ag (06/23/16 10:36 AM) BACTERIAL - Source Strep Cerebral 06/23 [facility] Fluid BODY FLUIDS Glucose CSF 50 mg/dL 45 - 80 06/23 Hospital BODY FLUIDS Protein CSF 233 mg/dL 15 - 45 06/23 Result Comment: Hospital "Significant Findings called to AFSHIN MENDIETA_at 06/23/2016 12:14___by PAUL___. Read Back OK." BODY FLUIDS Color CSF Colorless Colorless 06/23 [facility] (06/23/16 10:36 AM) BODY FLUIDS Tube Num CSF 4 06/23 [facility] BODY FLUIDS WBC CSF 270 /mm3 0 - 53 06/23 [facility] BODY FLUIDS Clarity CSF Clear Clear 06/23 [facility] (06/23/16 10:36 AM) BODY FLUIDS RBC CSF 73 /mm3 0 - 03 06/23 [facility] BODY FLUIDS Supernat CSF Colorless Colorless 06/23 [facility] (06/23/16 10:36 AM) BODY FLUIDS Lymph CSF 82 % 40 - 80 06/23 [facility] BODY FLUIDS Segs CSF 5 % 0 - 6 06/23 [facility] BODY FLUIDS Monocyte CSF 12 % 15 - 45 06/23 [facility] BODY FLUIDS Eos CSF 1 % 06/23 [facility] IMMUNOLOGY VDRL Scr CSF Non Reactive Non 06/23 Reactive [facility] (06/23/16 10:36 AM) VIRAL - [facility] Negative Negative 06[facility]23 [facility] (06/23/16 10:36 AM) TOXICOLOGY Vanco Tr TND 1000 06/23 [facility] TOXICOLOGY Vanco Tr 11.2 ug/ml 06/23 [facility] Spine Spine lumbar FLUOROSCOPIC DIRECTED LUMBAR PUNCTURE 06/23 - [facility] lumbar puncture - Hospital puncture w fluoro DX fluoro DX HISTORY: Meningitis.. Read by: Kevon Mendoza MD Dictated Date/time: 06/23/16 11:14 Electronically Signed by: Kevon Mendoza MD 06/23/16 11:16 FINAL REPORT FLUORO TIME: 12 seconds of fluoroscopy were used. Informed consent was obtained. Site for needle placement was selected with fluoroscopy. Under sterile conditions and local anesthesia and with fluoroscopic guidance an L4-5 puncture was performed with a 22-gauge spinal needle without incident. Opening pressure 44 cm of water. Approximately 17mL of crystal clear CSF withdrawn and sent for analysis. No immediate complication evident. END REPORT SL: [id number] BACTERIAL - Source Strep Urine 06/23 [facility] *NA* (06/23/16 4:34 AM) BACTERIAL - Strep Negative Negative 06/23 [facility] Ag (06/23/16 4:34 AM) ELECTROLYTE Sodium Lvl 130 meq/L 135 - 145 06/23 [facility] ELECTROLYTE BUN 10 mg/dL 7 - 22 06/23 [facility] ELECTROLYTE Glucose Lvl 98 mg/dL 70 - 99 06/23 [facility] ELECTROLYTE Creatinine 0.68 mg/dL 0.50 - 06/23 [facility] 1.40 [facility] ELECTROLYTE Potassium 4.1 meq/L 3.5 - 5.1 06/23 [facility] Lvl [facility] ELECTROLYTE eGFR 97 06/23 Result Comment: The eGFR is calculated using the CKD-EPI formula. In most young, healthy individuals the eGFR will be >90 mL/ min/1.73m2. The eGFR declines with age. An eGFR of 60-89 may be normal in [facility] S mL/min/1.7 some populations, particularly the elderly, for whom the CKD-EPI formula has not been extensively validated. Use of the eGFR is not recommended in the following populations: Hospital 3m2 Individuals with unstable creatinine concentrations, including patients and those with serious co-morbid conditions. Patients with extremes in muscle mass or diet. The data above are obtained from the National Kidney Disease Education Program (NKDEP) which additionally recommends that when the eGFR is used in patients with extremes of body mass index for purposes of drug dosing, the eGFR should be multiplied by the estimated BMI. ELECTROLYTE AGAP 17.1 meq/L 10.0 - 06/23 [facility] S 20.0 [facility] ELECTROLYTE Calcium Lvl 7.9 mg/dL 8.5 - 10.5 06/23 [facility] ELECTROLYTE CO2 19 meq/L 24 - 32 06/23 [facility] ELECTROLYTE Chloride Lvl 98 meq/L 95 - 109 06/23 [facility] Brain w/wo Brain w/wo MRI head without and with contrast. 06/22 - [facility] contrast contrast MRI /2016 - [facility] MRI Indication: Headache for past 2 weeks with intermittent nausea and vomiting. Read by: Sha Richey MD Dictated Date/time: 06/22/16 15:54 Electronically Signed by: Sha Richey MD 06/22/16 16:03 FINAL REPORT Comparison: 06/21/2016 CT head. Technique: MRI head was performed in the following sequences: Axial T1 pre and post contrast, FLAIR, T2, DWI, sagittal T1, coronal FLAIR and post contrast T1. Approximately 13 mL gadolinium injected int ravenously for this exam. A full and complete exam was performed. Findings: Mild motion artifact degrades image quality. There is no evidence for restrictive diffusion. Normal flow-voids are appreciated in the intracranial internal carotid arteries. Moderate patchy pe riventricular and subcortical white matter T2 hyperintensities are present bilaterally. Black-white matter differentiation is otherwise preserved. There is no evidence for midline shift. Cerebral and cer ebellar sulci as well as the ventricles are normal in size for the patient' s age. No intra or extra-axial fluid collections are present. There are no areas of abnormal enhancement with contrast adm inistration. No evidence for acute intracranial hemorrhage, acute ischemic infarct, or enhancing cerebral or cerebellar masses. Impression: 1. No acute intracranial findings or abnormal contrast enhancement. 2. Nonspecific white matter changes likely related to chronic small vessel ischemia in patient of this age group. Demyelinating disorder, vasculitis , migraine headaches, and other etiologies can also be considered. SL: [id number] CHEM PANEL Glucose Lvl 82 mg/dL 70 - 99 06/22 Hospital CHEM PANEL BUN 12 mg/dL 7 - 22 06/22 Hospital CHEM PANEL Sodium Lvl 133 meq/L 135 - 145 06/22 Hospital CHEM PANEL Creatinine 0.67 mg/dL 0.50 - 06/22 [facility] Lvl 1.40 [facility] CHEM PANEL Potassium 3.7 meq/L 3.5 - 5.1 06/22 Hospital CHEM PANEL Chloride Lvl 98 meq/L 95 - 109 06/22 Hospital CHEM PANEL CO2 23 meq/L 24 - 32 06/22 Hospital CHEM PANEL Calcium Lvl 8.0 mg/dL 8.5 - 10.5 06/22 Hospital CHEM PANEL eGFR 97 06/22 Result Comment: The eGFR is calculated using the CKD-EPI formula. In most young, healthy individuals the eGFR will be >90 mL/ min/1.73m2. The eGFR declines with age. An eGFR of 60-89 may be normal in mL/min/1. some populations, particularly the elderly, for whom the CKD-EPI formula has not been extensively validated. Use of the eGFR is not recommended in the following populations: Hospital 3m2 Individuals with unstable creatinine concentrations, including patients and those with serious co-morbid conditions. Patients with extremes in muscle mass or diet. The data above are obtained from the National Kidney Disease Education Program (NKDEP) which additionally recommends that when the eGFR is used in patients with extremes of body mass index for purposes of drug dosing, the eGFR should be multiplied by the estimated BMI. CHEM PANEL AGAP 15.7 meq/L 10.0 - 06/22 [facility] 20.0 [facility] CHEM PANEL Procalcitoni <0.05 0.00 - 06/22 [facility] n Lvl ng/mL 0.10 [facility] HEMATOLOGY MPV 9.6 fL 7.4 - 10.4 06/22 [facility] HEMATOLOGY Platelet 97 K/CMM 133 - 450 06/22 [facility] HEMATOLOGY WBC 8.3 K/CMM 3.7 - 10.4 06/22 [facility] HEMATOLOGY RBC 4.78 M/CMM 4.70 - 06/22 [facility] 6.10 [facility] HEMATOLOGY Hgb 16.3 g/dL 14.0 - 06/22 [facility] 18.0 [facility] HEMATOLOGY MCHC 34.0 g/dL 32.0 - 06/22 [facility] 36.0 [facility] HEMATOLOGY RDW 13.7 % 11.5 - 06/22 [facility] 14.5 [facility] HEMATOLOGY Hct 48.0 % 42.0 - 06/22 [facility] 54.0 [facility] HEMATOLOGY MCV 100.4 fL 80.0 - 06/22 [facility] 94.0 [facility] HEMATOLOGY MCH 34.2 pg 27.0 - 06/22 [facility] 31.0 [facility] HEMATOLOGY Macrocyte 1+ None Seen 06/22 [facility] *ABN* (06/22/16 4:19 AM) HEMATOLOGY Monocytes # 1.0 K/CMM 0.0 - 0.8 06/22 [facility] HEMATOLOGY Basophils 0.2 % 0.0 - 1.0 06/22 [facility] HEMATOLOGY Monocytes 12.1 % 2.0 - 12.0 06/22 [facility] HEMATOLOGY Lymphocytes 5.5 % 20.0 - 06/22 [facility] 40.0 [facility] HEMATOLOGY Segs 81.7 % 45.0 - 06/22 [facility] 75.0 [facility] HEMATOLOGY Eosinophils 0.5 % 0.0 - 4.0 06/22 [facility] HEMATOLOGY Lymphocytes 0.5 K/CMM 1.0 - 5.5 06/22 [facility] # /2016 [facility] HEMATOLOGY Segs-Bands # 6.8 K/CMM 1.5 - 8.1 06/22 [facility] IMMUNOLOGY C-REACTIVE 57.8 mg/L <=2.9 mg/L 06/22 [facility] PROTEIN [facility] CHEM PANEL Lactic Acid 1.6 mMol/L 0.5 - 2.2 06/22 [facility] Lvl [facility] URINE AND UA Glucose 500 mg/dL Negative 06/21 [facility] STOOL mg/dL [facility] URINE AND UA Protein 100 mg/dL Negative 06/21 [facility] STOOL mg/dL [facility] URINE AND UA Bili Negative Negative 06/21 [facility] *NA* (06/21/16 5:17 PM) URINE AND UA Ketones 80 mg/dL Negative 06/21 [facility] STOOL mg/dL [facility] URINE AND UA Turbidity Slight Clear 06/21 [facility] *ABN* (06/21/16 5:17 PM) URINE AND UA pH 5.0 5.0 - 8.0 06/21 [facility] STOOL [facility] URINE AND UA Spec Grav 1.023 <=1.030 06/21 [facility] URINE AND UA Color Yellow Yellow 06/21 [facility] *NA* (06/21/16 5:17 PM) URINE AND UA Blood Small Negative 06/21 [facility] *ABN* (06/21/16 5:17 PM) URINE AND UA Mucus Moderate None Seen 06/21 [facility] STOOL /LPF /LPF Hospital URINE AND UA Nitrite Negative Negative 06/21 [facility] (06/21/16 5:17 PM) URINE AND UA Sq Epi Occasional Few /LPF 06/21 [facility] STOOL /LPF /2016 [facility] URINE AND UA Leuk Est Negative Negative 06/21 [facility] STOOL /2016 [facility] (06/21/16 5:17 PM) URINE AND UA Bacteria Occasional None Seen 06/21 [facility] STOOL /HPF /HPF [facility] URINE AND UA <=1.0 0.1 - 1.0 06/21 [facility] STOOL Urobilinogen mg/dL /2016 [facility] Chest Chest PROCEDURE: CTA CHEST 06/21 - [facility] Pulmonary /2016 - [facility] Embolism Embolism CTA CTA Clinical Indication: Shortness of Breath - cough, SOB, Fever. ; Read by: Rc Rivera MD Dictated Date/time: 06/21/16 21:53 Comparison: None Electronically Signed by: Rc Rivera MD 06/21/16 22:08 FINAL REPORT TECHNIQUE: CTA of the pulmonary arteries was performed following intravenous contrast administration. Multiplanar and 3-D MIP angiographic reconstructions are reviewed. IV CONTRAST: 100 mL Omnipaque 300 DLP: 9:15 mGy-cm FINDINGS: PULMONARY ARTERIES: Enhancement of the pulmonary arteries is technically suboptimal. No proximal or central emboli demonstrated. Assessment beyond the lobar branches is not of diagnostic quality. Immedi ate repeat imaging of the chest was obtained with similar suboptimal opacification of the pulmonary arteries demonstrating no central or proximal emboli through the lobar branches. Within limitations, n o discrete segmental or subsegmental emboli evident. MEDIASTINUM: The mediastinal contents are normal. No adenopathy. HEART: The cardiac chambers are unremarkable. Coronary arterial calcifications. No pericardial effusion. VASCULAR STRUCTURES: Atherosclerosis thoracic aorta and proximal great vessels. No aneurysm, dissection or other acute abnormality demonstrated. The superior vena cava is unremarkable. LUNGS: Mild centrilobular and paraseptal emphysema. Bronchial wall thickening with partial opacification of multiple segmental bronchi in the lower lobes. Interstitial opacities in the right lower lobe. No consolidation. Biapical pleural-parenchymal scarring. No suspicious mass lesions. No pleural abnormality. UPPER ABDOMEN: Survey of viscera may be limited by early phase of contrast enhancement. Bilateral perinephric stranding, nonspecific. No hydronephrosis. Visualized portions of the collecting systems. D egree of stranding is similar to that on prior chest CT. MUSCULOSKELETAL: The skeleton is intact. IMPRESSION: 1. Technically suboptimal CTA of the pulmonary arteries without proximal or central emboli demonstrated. 2. Emphysema. 3. Bronchial wall thickening with partial opacification of lower lobe segmental bronchi compatible with a bronchitis. Interstitial opacities asymmetric in the right lung base may reflect acute inflammat ion. No lobar pneumonia. Close radiographic follow-up is recommended. 4. Atherosclerosis. 5. Nonspecific stranding of perinephric fat, likely chronic. Acute inflammation not excluded. Please correlate with urinalysis. SL: KL-M CARDIAC Troponin-I 0.02 ng/mL 0.00 - 06/21 [facility] ENZYMES 0.40 /2016 [facility] CARDIAC CK MB null 0.5 - 3.6 06/21 [facility] CARDIAC Total CK 49 unit/L 12 - 191 06/21 [facility] ENZYMES [facility] CARDIAC CK MB Index null 0.0 - 2.5 06/21 [facility] CHEM PANEL B/C Ratio 25 6 - 25 06/21 [facility] CHEM PANEL Globulin 3.6 g/dL 2.7 - 4.2 06/21 [facility] CHEM PANEL A/G Ratio 0.9 0.7 - 1.6 06/21 [facility] CHEM PANEL Alk Phos 56 unit/L 39 - 136 06/21 [facility] CHEM PANEL AST 24 unit/L 0 - 37 06/21 [facility] CHEM PANEL Bili Total 0.7 mg/dL 0.2 - 1.3 06/21 [facility] CHEM PANEL Albumin Lvl 3.2 g/dL 3.5 - 5.0 06/21 [facility] CHEM PANEL ALT 31 unit/L 0 - 65 06/21 [facility] CHEM PANEL Total 6.8 g/dL 6.4 - 8.4 06/21 [facility] HEMATOLOGY PT 12.4 s 12.0 - 06/21 [facility] 14.7 [facility] HEMATOLOGY INR 0.91 0.85 - 06/21 [facility] 1.17 [facility] HEMATOLOGY MPV 9.2 fL 7.4 - 10.4 06/21 [facility] HEMATOLOGY RDW 13.6 % 11.5 - 06/21 [facility] 14.5 [facility] HEMATOLOGY Hgb 16.4 g/dL 14.0 - 06/21 [facility] 18.0 [facility] HEMATOLOGY MCHC 34.3 g/dL 32.0 - 06/21 [facility] 36.0 [facility] HEMATOLOGY Platelet 99 K/CMM 133 - 450 06/21 [facility] HEMATOLOGY MCV 99.1 fL 80.0 - 06/21 [facility] 94.0 [facility] HEMATOLOGY MCH 34.0 pg 27.0 - 06/21 [facility] 31.0 [facility] HEMATOLOGY Hct 47.9 % 42.0 - 06/21 [facility] 54.0 [facility] HEMATOLOGY WBC 10.1 K/CMM 3.7 - 10.4 06/21 [facility] HEMATOLOGY RBC 4.83 M/CMM 4.70 - 06/21 [facility] 6.10 [facility] HEMATOLOGY PTT 28.2 s 22.9 - 06/21 [facility] 35.8 [facility] HEMATOLOGY Monocytes # 1.0 K/CMM 0.0 - 0.8 06/21 [facility] HEMATOLOGY Segs 85.4 % 45.0 - 06/21 [facility] 75.0 [facility] HEMATOLOGY Basophils 0.3 % 0.0 - 1.0 06/21 [facility] HEMATOLOGY Eosinophils 0.2 % 0.0 - 4.0 06/21 [facility] HEMATOLOGY Monocytes 10.2 % 2.0 - 12.0 06/21 [facility] HEMATOLOGY Lymphocytes 3.9 % 20.0 - 06/21 [facility] 40.0 [facility] HEMATOLOGY Lymphocytes 0.4 K/CMM 1.0 - 5.5 06/21 [facility] # /2016 [facility] HEMATOLOGY Segs-Bands # 8.6 K/CMM 1.5 - 8.1 06/21 Hospital HEMATOLOGY Plt Morph Normal 06/21 [facility] (06/21/16 4:15 PM) HEMATOLOGY RBC Morph Normal 06/21 [facility] (06/21/16 4:15 PM) RAPID Grp A Strep Negative Negative 06/21 Scr [facility] (06/21/16 4:15 PM) VIRAL - Influ B Negative Negative 06/21 [facility] SEROLOGY [facility] (06/21/16 4:15 PM) VIRAL - Influ A Negative Negative 06/21 [facility] SEROLOGY /2017 Hospital (06/21/16 4:15 PM) Chest 1view Chest 1view FRONTAL CHEST, 06/21/2016 2:29 PM CDT : 06/21 - [facility] DX DX /2016 - Hospital HISTORY: Dizziness. Read by: Sammy Henry MD Dictated Date/time: 06/21/16 15:08 Electronically Signed by: Sammy Henry 06/21/16 15:13 FINAL REPORT COMPARISON: None FINDINGS: Heart size and vascularity are within normal limits. Emphysematous changes with hyperlucency and distortion of pulmonary architecture. The lungs are clear of focal consolidation. No effusion, pneumothorax, or acute osseous abnormality. IMPRESSION: 1. No radiographic evidence of acute cardiopulmonary process. SL: [id number] Brain wo Brain wo Addendum: Addendum: 06/21 - [facility] contrast CT contrast CT /2016 - Hospital I reviewed this examination and concur with the interpretation. Read by: Gustavo Randall MD Dictated Date/time: 06/21/16 14:[address] head. Electronically Signed by: Gustavo Randall MD 06/21/16 15:01 FINAL REPORT - - INDICATION: Headache for 2 weeks. Weakness. Read by: Sha Richey MD Dictated Date/time: 06/21/16 14:53 Comparison: None. Electronically Signed by: Sha Richey MD 06/21/16 14:58 FINAL REPORT TECHNIQUE: Noncontrast CT head was performed from skull base to vertex at 3 mm slice collimation. FINDINGS: Mild periventricular white matter hypodensities are present. Black -white matter differentiation is otherwise preserved. Ventricles are normal in size for the patient's stated age. There is no evidence of midline shift. No intra or extra-axial fluid collections are seen. No evidence for acute ischemic infarct or cerebral mass. No abnormally increased parenchymal density is identified to s uggest acute hemorrhage. Few bilateral mastoid air cells are opacified. Visualized portions of paranasal sinuses are clear. IMPRESSION: 1. No acute intracranial findings. 2. Mild nonspecific white matter hypodensities likely related to chronic small vessel ischemic changes. SL: [id number] CHEM PANEL eGFR 92 05/18 Result Comment: The eGFR is calculated using the CKD-EPI formula. In most young, healthy individuals the eGFR will be >90 mL/ min/1.73m2. The eGFR declines with age. An eGFR of 60-89 may be normal in mL/min/1.7 some populations, particularly the elderly, for whom the CKD-EPI formula has not been extensively validated. Use of the eGFR is not recommended in the following populations: Hospital 2 Individuals with unstable creatinine concentrations, including patients and those with serious co-morbid conditions. Patients with extremes in muscle mass or diet. The data above are obtained from the National Kidney Disease Education Program (NKDEP) which additionally recommends that when the eGFR is used in patients with extremes of body mass index for purposes of drug dosing, the eGFR should be multiplied by the estimated BMI. CHEM PANEL Alk Phos 49 unit/L 39 - 136 05/18 Hospital CHEM PANEL Bili Total 0.6 mg/dL 0.2 - 1.3 05/18 Hospital CHEM PANEL Total 5.0 g/dL 6.4 - 8.4 05/18 Hospital CHEM PANEL AST 23 unit/L 0 - 37 05/18 Hospital CHEM PANEL CO2 23 meq/L 24 - 32 05/18 Hospital CHEM PANEL Albumin Lvl 2.5 g/dL 3.5 - 5.0 05/18 Hospital CHEM PANEL Globulin 2.5 g/dL 2.7 - 4.2 05/18 Hospital CHEM PANEL A/G Ratio 1.0 0.7 - 1.6 05/18 Hospital CHEM PANEL ALT 21 unit/L 0 - 65 05/18 Hospital CHEM PANEL B/C Ratio 11 6 - 25 05/18 Hospital CHEM PANEL Creatinine 0.76 mg/dL 0.50 - 05/18 [facility] 1.40 [facility] CHEM PANEL AGAP 14.6 meq/L 10.0 - 05/18 20.0 Hospital CHEM PANEL Calcium Lvl 8.0 mg/dL 8.5 - 10.5 05/18 Hospital CHEM PANEL Potassium 3.6 meq/L 3.5 - 5.1 05/18 [facility] Lvl [facility] CHEM PANEL Chloride Lvl 110 meq/L 95 - 109 03/ [facility] CHEM PANEL Glucose Lvl 95 mg/dL 70 - 99 03 Hospital CHEM PANEL Sodium Lvl 144 meq/L 135 - 145 05/18 [facility] CHEM PANEL BUN 8 mg/dL 7 - 22 05/18 [facility] HEMATOLOGY Eosinophils 3.1 % 0.0 - 4.0 05/18 [facility] HEMATOLOGY Lymphocytes 1.4 K/CMM 1.0 - 5.5 05/18 [facility] HEMATOLOGY Segs-Bands # 3.2 K/CMM 1.5 - 8.1 05/18 [facility] HEMATOLOGY Monocytes 11.9 % 2.0 - 12.0 05/18 [facility] HEMATOLOGY Basophils 0.4 % 0.0 - 1.0 05/18 [facility] HEMATOLOGY Macrocyte 1+ None Seen 05/18 Hospital *ABN* (05/18/16 5:43 AM) HEMATOLOGY Eosinophils 0.2 K/CMM 0.0 - 0.5 05/18 [facility] HEMATOLOGY Monocytes # 0.6 K/CMM 0.0 - 0.8 05/18 [facility] HEMATOLOGY Lymphocytes 25.2 % 20.0 - 03 [facility] 40.0 [facility] HEMATOLOGY Segs 59.4 % 45.0 - 05/18 [facility] 75.0 [facility] HEMATOLOGY RBC 3.95 M/CMM 4.70 - 05/18 [facility] 6.10 [facility] HEMATOLOGY WBC 5.4 K/CMM 3.7 - 10.4 05/18 [facility] HEMATOLOGY Platelet 100 K/CMM 133 - 450 05/18 [facility] HEMATOLOGY RDW 14.1 % 11.5 - 05/18 [facility] 14.5 [facility] HEMATOLOGY MPV 9.1 fL 7.4 - 10.4 05/18 [facility] HEMATOLOGY MCV 104.8 fL 80.0 - 05/18 [facility] 94.0 [facility] HEMATOLOGY MCHC 33.5 g/dL 32.0 - 05/18 [facility] 36.0 [facility] HEMATOLOGY MCH 35.1 pg 27.0 - 05/18 [facility] 31.0 [facility] HEMATOLOGY Hct 41.3 % 42.0 - 05/18 [facility] 54.0 [facility] HEMATOLOGY Hgb 13.9 g/dL 14.0 - 05/18 [facility] 18.0 [facility] CHEM PANEL Lactic Acid 1.2 mMol/L 0.5 - 2.2 05/18 [facility] Lvl [facility] IMMUNOLOGY C-REACTIVE null <=2.9 mg/L 05/18 [facility] PROTEIN [facility] HEMATOLOGY MPV 9.3 fL 7.4 - 10.4 05/17 [facility] HEMATOLOGY Platelet 136 K/CMM 133 - 450 05/17 [facility] HEMATOLOGY RDW 14.3 % 11.5 - 05/17 [facility] 14.5 [facility] HEMATOLOGY MCHC 34.4 g/dL 32.0 - 05/17 [facility] 36.0 [facility] HEMATOLOGY Hgb 17.1 g/dL 14.0 - 05/17 [facility] 18.0 [facility] HEMATOLOGY RBC 4.78 M/CMM 4.70 - 05/17 [facility] 6.10 [facility] HEMATOLOGY WBC 8.4 K/CMM 3.7 - 10.4 05/17 [facility] HEMATOLOGY MCH 35.7 pg 27.0 - 05/17 [facility] 31.0 [facility] HEMATOLOGY MCV 103.6 fL 80.0 - 05/17 [facility] 94.0 [facility] HEMATOLOGY Hct 49.6 % 42.0 - 05/17 [facility] 54.0 [facility] HEMATOLOGY Macrocyte 1+ None Seen 05/17 Hospital *ABN* (05/17/16 1:08 PM) HEMATOLOGY Monocytes # 0.9 K/CMM 0.0 - 0.8 05/17 [facility] HEMATOLOGY Eosinophils 0.1 K/CMM 0.0 - 0.5 05/17 [facility] # [facility] HEMATOLOGY Segs-Bands # 6.0 K/CMM 1.5 - 8.1 05/17 [facility] HEMATOLOGY Eosinophils 1.1 % 0.0 - 4.0 05/17 [facility] HEMATOLOGY Lymphocytes 1.3 K/CMM 1.0 - 5.5 05/17 [facility] HEMATOLOGY Basophils 0.5 % 0.0 - 1.0 05/17 Hospital HEMATOLOGY Monocytes 10.9 % 2.0 - 12.0 05/17 Hospital HEMATOLOGY Lymphocytes 15.9 % 20.0 - 05/17 40.0 Hospital HEMATOLOGY Segs 71.6 % 45.0 - 05/17 75.0 Hospital CHEM PANEL Lactic Acid 1.7 mMol/L 0.5 - 2.2 05/17 Hospital ELECTROLYTE AGAP 18.3 meq/L 10.0 - 03 20.0 Hospital ELECTROLYTE B/C Ratio 6 6 - 25 05/17 Hospital ELECTROLYTE Globulin 3.7 g/dL 2.7 - 4.2 05/17 Hospital ELECTROLYTE A/G Ratio 1.0 0.7 - 1.6 05/17 Hospital ELECTROLYTE ALT 32 unit/L 0 - 65 05/17 Hospital ELECTROLYTE Albumin Lvl 3.7 g/dL 3.5 - 5.0 05/17 Hospital ELECTROLYTE AST 33 unit/L 0 - 37 05/17 Hospital ELECTROLYTE Alk Phos 68 unit/L 39 - 136 05/17 Hospital ELECTROLYTE Bili Total 0.5 mg/dL 0.2 - 1.3 05/17 Hospital ELECTROLYTE Chloride Lvl 104 meq/L 95 - 109 05/17 Hospital ELECTROLYTE Sodium Lvl 143 meq/L 135 - 145 05/17 Hospital ELECTROLYTE Potassium 3.3 meq/L 3.5 - 5.1 05/17 Hospital ELECTROLYTE Calcium Lvl 8.8 mg/dL 8.5 - 10.5 05/17 Hospital ELECTROLYTE CO2 24 meq/L 24 - 32 05/17 Hospital ELECTROLYTE Total 7.4 g/dL 6.4 - 8.4 05/17 Hospital ELECTROLYTE Creatinine 0.89 mg/dL 0.50 - 03 [facility] 1.40 [facility] ELECTROLYTE BUN 5 mg/dL 7 - 22 05/17 [facility] S /2016 [facility] ELECTROLYTE Glucose Lvl 89 mg/dL 70 - 99 05/17 [facility] S /2016 Hospital ELECTROLYTE eGFR 87 05/17 Result Comment: The eGFR is calculated using the CKD-EPI formula. In most young, healthy individuals the eGFR will be >90 mL/ min/1.73m2. The eGFR declines with age. An eGFR of 60-89 may be normal in [facility] mL/min/1.7 some populations, particularly the elderly, for whom the CKD-EPI formula has not been extensively validated. Use of the eGFR is not recommended in the following populations: [address] Individuals with unstable creatinine concentrations, including patients and those with serious co-morbid conditions. Patients with extremes in muscle mass or diet. The data above are obtained from the National Kidney Disease Education Program (NKDEP) which additionally recommends that when the eGFR is used in patients with extremes of body mass index for purposes of drug dosing, the eGFR should be multiplied by the estimated BMI. Ext Lower Ext Lower Study: Ext Lower Venous Doppler Bilat US 05/17/2016 4:39 PM [employer] 05/17 - [facility] Venous Venous /2016 - Hospital Doppler Doppler Bilat US Bilat US Clinical Indication: Bilateral leg swelling; Read by: Kolby Jaffe MD Dictated Date/time: 05/17/16 18:45 Comparison: None Electronically Signed by: Kolby Jaffe MD 05/17/16 18:46 FINAL REPORT TECHNIQUE: Sonographic evaluation of the bilateral lower extremity veins is performed using high resolution B-mode imaging, along with pulse and color Doppler imaging. FINDINGS: Right lower extremity: The common femoral vein, femoral vein, popliteal vein and visualized posterior tibial/calf veins are patent. There is no echogenic debris to suggest deep venous thrombosis. Left lower extremity: The common femoral vein, superficial femoral vein, popliteal vein and visualized posterior tibial/calf veins are patent. There is no echogenic debris to suggest deep venous thrombosis. IMPRESSION: No DVT of the bilateral lower extremities. SL: [id number] Tibia Tibia fibula PROCEDURE: Right leg 2 views 05/17 - [facility] fibula series DX /2016 - Hospital series DX Clinical Indication: Erythema. Wound infection right ankle. Redness and swelling right leg and ankle. Read by: Rc Rivera MD Dictated Date/time: 05/17/16 17:25 Comparison: None Electronically Signed by: Rc Rivera MD 05/17/16 17:27 FINAL REPORT FINDINGS: Scattered vascular calcifications. No gross soft tissue abnormality. No subcutaneous gas. Previous surgery proximal tibia with single screw in place. No radiographic evidence for loosening. Di minutive lucent foci compatible with previous orthopedic pin placement in the tibia. No bone destructive lesion. No fracture or dislocation. IMPRESSION: No acute radiographic abnormality. SL: [id number]-M CHEM PANEL eGFR 92 07/18 Result Comment: The eGFR is calculated using the CKD-EPI formula. In most young, healthy individuals the eGFR will be >90 mL/ min/1.73m2. The eGFR declines with age. An eGFR of 60-89 may be normal in mL/min/1. some populations, particularly the elderly, for whom the CKD-EPI formula has not been extensively validated. Use of the eGFR is not recommended in the following populations: [place] [address] Individuals with unstable creatinine concentrations, including patients and those with serious co-morbid conditions. Patients with extremes in muscle mass or diet. The data above are obtained from the National Kidney Disease Education Program (NKDEP) which additionally recommends that when the eGFR is used in patients with extremes of body mass index for purposes of drug dosing, the eGFR should be multiplied by the estimated BMI. CHEM PANEL Calcium Lvl 8.8 mg/dL 8.5 - 10.5 07/18 [facility] CHEM PANEL Creatinine 0.78 mg/dL 0.50 - 07/18 [facility] Lvl 1.40 [facility] CHEM PANEL Glucose Lvl 181 mg/dL 70 - 99 07/18 [facility] CHEM PANEL Chloride Lvl 104 meq/L 95 - 109 07/18 Hospital CHEM PANEL BUN 19 mg/dL 7 - 22 07/18 [facility] CHEM PANEL Sodium Lvl 139 meq/L 135 - 145 07/18 [facility] CHEM PANEL Potassium 4.5 meq/L 3.5 - 5.1 07/18 [facility] CHEM PANEL CO2 28 meq/L 24 - 32 07/18 [facility] CHEM PANEL AGAP 11.5 meq/L 10.0 - 07/18 [facility] 20.0 [facility] HEMATOLOGY Macrocyte 1+ None Seen 07/18 Hospital *ABN* (07/19/15 2:27 PM) HEMATOLOGY Basophils # 0.2 K/CMM 0.0 - 0.2 07/18 [facility] HEMATOLOGY Segs-Bands # 11.8 K/CMM 1.5 - 8.1 07/18 [facility] HEMATOLOGY Eosinophils 0.0 K/CMM 0.0 - 0.5 07/18 [facility] # [facility] HEMATOLOGY Monocytes # 0.4 K/CMM 0.0 - 0.8 07/18 [facility] HEMATOLOGY Basophils 1.4 % 0.0 - 1.0 07/18 [facility] HEMATOLOGY Lymphocytes 0.3 K/CMM 1.0 - 5.5 07/18 [facility] HEMATOLOGY Lymphocytes 2.0 % 20.0 - 07/18 [facility] 40.0 [facility] HEMATOLOGY Segs 93.2 % 45.0 - 07/18 [facility] 75.0 [facility] HEMATOLOGY Plt Morph Normal 07/18 [facility] (07/19/15 2:27 PM) HEMATOLOGY RBC Morph Normal 07/18 [facility] (07/19/15 2:27 PM) HEMATOLOGY Eosinophils 0.0 % 0.0 - 4.0 07/18 [facility] HEMATOLOGY Monocytes 3.4 % 2.0 - 12.0 07/18 [facility] HEMATOLOGY MCH 32.9 pg 27.0 - 07/18 [facility] 31.0 [facility] HEMATOLOGY MCV 101.1 fL 80.0 - 07/18 [facility] 94.0 [facility] HEMATOLOGY MCHC 32.6 g/dL 32.0 - 07/18 [facility] 36.0 [facility] HEMATOLOGY WBC 12.6 K/CMM 3.7 - 10.4 07/18 [facility] HEMATOLOGY RBC 4.21 M/CMM 4.70 - 07/18 [facility] 6.10 [facility] HEMATOLOGY Hgb 13.9 g/dL 14.0 - 07/18 [facility] 18.0 [facility] HEMATOLOGY Hct 42.6 % 42.0 - 07/18 [facility] 54.0 [facility] HEMATOLOGY MPV 8.4 fL 7.4 - 10.4 07/18 [facility] HEMATOLOGY Platelet 165 K/CMM 133 - 450 07/18 [facility] HEMATOLOGY RDW 14.6 % 11.5 - 07/18 [facility] 14.5 [facility] ELECTROLYTE AGAP 9.3 meq/L 10.0 - 07/15 [facility] S 20.0 [facility] ELECTROLYTE B/C Ratio 14 6 - 25 07/15 [facility] ELECTROLYTE Globulin 3.2 g/dL 2.0 - 4.0 07/15 [facility] ELECTROLYTE A/G Ratio 0.9 0.7 - 1.6 07/15 [facility] ELECTROLYTE Potassium 4.3 meq/L 3.5 - 5.1 07/15 [facility] Lvl [facility] ELECTROLYTE Chloride Lvl 106 meq/L 95 - 109 07/15 [facility] ELECTROLYTE Sodium Lvl 139 meq/L 135 - 145 07/15 [facility] ELECTROLYTE eGFR 76 07/15 Result Comment: The eGFR is calculated using the CKD-EPI formula. In most young, healthy individuals the eGFR will be >90 mL/ min/1.73m2. The eGFR declines with age. An eGFR of 60-89 may be normal in [facility] mL/min/1.7 some populations, particularly the elderly, for whom the CKD-EPI formula has not been extensively validated. Use of the eGFR is not recommended in the following populations: [address] Individuals with unstable creatinine concentrations, including patients and those with serious co-morbid conditions. Patients with extremes in muscle mass or diet. The data above are obtained from the National Kidney Disease Education Program (NKDEP) which additionally recommends that when the eGFR is used in patients with extremes of body mass index for purposes of drug dosing, the eGFR should be multiplied by the estimated BMI. ELECTROLYTE Glucose Lvl 178 mg/dL 70 - 99 07/15 [facility] ELECTROLYTE BUN 14 mg/dL 7 - 22 07/15 [facility] ELECTROLYTE Creatinine 1.01 mg/dL 0.50 - 07/15 [facility] Lvl 1.40 /2015 [facility] ELECTROLYTE Calcium Lvl 8.2 mg/dL 8.5 - 10.5 07/15 [facility] ELECTROLYTE CO2 28 meq/L 24 - 32 07/15 [facility] ELECTROLYTE Albumin Lvl 3.0 g/dL 3.5 - 5.0 05 [facility] ELECTROLYTE ALT 29 unit/L 0 - 65 05 [facility] ELECTROLYTE Total 6.2 g/dL 6.4 - 8.4 05 [facility] ELECTROLYTE Bili Total 0.4 mg/dL 0.2 - 1.3 05 [facility] ELECTROLYTE AST 36 unit/L 0 - 37 05 [facility] ELECTROLYTE Alk Phos 56 unit/L 39 - 136 05 [facility] HEMATOLOGY Lymphocytes 2.3 % 20.0 - 05 [facility] 40[facility]0 [facility] HEMATOLOGY Segs-Bands # 10.4 K/CMM 1.5 - 8.1 05 [facility] HEMATOLOGY Basophils 0.0 % 0.0 - 1.0 05 [facility] HEMATOLOGY Monocytes 3.2 % 2.0 - 12.0 05 [facility] HEMATOLOGY Segs 94.5 % 45.0 - 05 [facility] 75[facility]0 [facility] HEMATOLOGY Basophils # 0.0 K/CMM 0.0 - 0.2 05 [facility] HEMATOLOGY Eosinophils 0.0 K/CMM 0.0 - 0.5 05 [facility] # /2015 [facility] HEMATOLOGY Eosinophils 0.0 % 0.0 - 4.0 05/ [facility] HEMATOLOGY Monocytes # 0.3 K/CMM 0.0 - 0.8 05 [facility] HEMATOLOGY Lymphocytes 0.3 K/CMM 1.0 - 5.5 05 [facility] # /2015 [facility] HEMATOLOGY MCHC 33.3 g/dL 32.0 - 05/05 [facility] 36[facility] HEMATOLOGY MPV 8.4 fL 7.4 - 10.4 05 [facility] HEMATOLOGY Platelet 167 K/CMM 133 - 450 05 [facility] HEMATOLOGY MCH 33.6 pg 27.0 - 05 [facility] 31.0 /2015 [facility] HEMATOLOGY RDW 15.5 % 11.5 - 0505 [facility] 14[facility]5 [facility] HEMATOLOGY Hgb 13.6 g/dL 14.0 - 07/15 [facility] 18.0 [facility] HEMATOLOGY RBC 4.05 M/CMM 4.70 - 07/15 [facility] 6.10 [facility] HEMATOLOGY MCV 100.9 fL 80.0 - 07/15 [facility] 94.0 [facility] HEMATOLOGY Hct 40.9 % 42.0 - 07/15 [facility] 54.0 [facility] HEMATOLOGY WBC 11.0 K/CMM 3.7 - 10.4 07/15 [facility] CHEM PANEL BUN 14 mg/dL 7 - 22 07/14 [facility] CHEM PANEL Sodium Lvl 143 meq/L 135 - 145 07/14 [facility] CHEM PANEL Glucose Lvl 140 mg/dL 70 - 99 07/14 [facility] CHEM PANEL Chloride Lvl 107 meq/L 95 - 109 07/14 [facility] CHEM PANEL Potassium 4.1 meq/L 3.5 - 5.1 07/14 [facility] CHEM PANEL CO2 25 meq/L 24 - 32 07/14 [facility] CHEM PANEL Albumin Lvl 3.5 g/dL 3.5 - 5.0 07/14 [facility] CHEM PANEL Calcium Lvl 8.9 mg/dL 8.5 - 10.5 07/14 [facility] CHEM PANEL eGFR 63 07/14 Result Comment: The eGFR is calculated using the CKD-EPI formula. In most young, healthy individuals the eGFR will be >90 mL/ min/1.73m2. The eGFR declines with age. An eGFR of 60-89 may be normal in mL/min/1.7 some populations, particularly the elderly, for whom the CKD-EPI formula has not been extensively validated. Use of the eGFR is not recommended in the following populations: Hospital 3m2 Individuals with unstable creatinine concentrations, including patients and those with serious co-morbid conditions. Patients with extremes in muscle mass or diet. The data above are obtained from the National Kidney Disease Education Program (NKDEP) which additionally recommends that when the eGFR is used in patients with extremes of body mass index for purposes of drug dosing, the eGFR should be multiplied by the estimated BMI. CHEM PANEL AST 35 unit/L 0 - 37 07/14 [facility] CHEM PANEL Creatinine 1.17 mg/dL 0.50 - 05 [facility] 1.40 /2015 [facility] CHEM PANEL ALT 40 unit/L 0 - 65 05 [facility] CHEM PANEL Total 7.0 g/dL 6.4 - 8.4 07/14 [facility] CHEM PANEL Alk Phos 66 unit/L 39 - 136 07/14 [facility] CHEM PANEL Bili Total 0.4 mg/dL 0.2 - 1.3 07/14 [facility] CHEM PANEL AGAP 15.1 meq/L 10.0 - 07/14 [facility] 20[facility]0 [facility] CHEM PANEL Globulin 3.5 g/dL 2.0 - 4.0 07/14 [facility] CHEM PANEL A/G Ratio 1.0 0.7 - 1.6 07/14 [facility] CHEM PANEL B/C Ratio 12 6 - 25 07/14 [facility] HEMATOLOGY INR 0.98 0.85 - 07/14 [facility] 1[facility]17 [facility] HEMATOLOGY PT 13.3 s 12.0 - 07/14 [facility] 14[facility] HEMATOLOGY Platelet 218 K/CMM 133 - 450 07/14 [facility] HEMATOLOGY MPV 8.1 fL 7.4 - 10.4 07/14 [facility] HEMATOLOGY Hct 45.9 % 42.0 - 07/14 [facility] 54[facility]0 [facility] HEMATOLOGY MCHC 32.4 g/dL 32.0 - 07/14 [facility] 36[facility]0 [facility] HEMATOLOGY RDW 15.2 % 11.5 - 07/14 [facility] 14[facility]5 [facility] HEMATOLOGY MCV 101.9 fL 80.0 - 07/14 [facility] 94[facility]0 [facility] HEMATOLOGY MCH 33.0 pg 27.0 - 07/14 [facility] 31[facility]0 [facility] HEMATOLOGY WBC 17.8 K/CMM 3.7 - 10.4 07/14 [facility] HEMATOLOGY RBC 4.51 M/CMM 4.70 - 07/14 [facility] 6[facility]10 [facility] HEMATOLOGY Hgb 14.9 g/dL 14.0 - 07/14 [facility] 18[facility]0 [facility] HEMATOLOGY Monocytes # 1.1 K/CMM 0.0 - 0.8 05/ [facility] HEMATOLOGY Eosinophils 0.0 K/CMM 0.0 - 0.5 07/14 [facility] # /2015 [facility] HEMATOLOGY Segs-Bands # 15.4 K/CMM 1.5 - 8.1 07/14 [facility] HEMATOLOGY Lymphocytes 1.4 K/CMM 1.0 - 5.5 07/14 [facility] # /2016 [facility] HEMATOLOGY Eosinophils 0.0 % 0.0 - 4.0 07/14 [facility] HEMATOLOGY Basophils # 0.0 K/CMM 0.0 - 0.2 07/14 [facility] HEMATOLOGY Basophils 0.1 % 0.0 - 1.0 07/14 [facility] HEMATOLOGY Macrocyte 1+ None Seen 07/14 [facility] *ABN* (07/15/15 6:15 PM) HEMATOLOGY Monocytes 6.0 % 2.0 - 12.0 07/14 [facility] HEMATOLOGY Plt Morph Normal 07/14 [facility] (07/15/15 6:15 PM) HEMATOLOGY RBC Morph Normal 07/14 [facility] (07/15/15 6:15 PM) HEMATOLOGY Lymphocytes 7.7 % 20.0 - 07/14 [facility] 40.0 [facility] HEMATOLOGY Segs 86.2 % 45.0 - 07/14 [facility] 75.0 [facility] Chest 1view Chest 1view One view portable chest: 07/14 - [facility] DX DX - [facility] HISTORY: Dyspnea. Read by: Henri Fam MD Dictated Date/time: 07/15/15 18:26 Electronically Signed by: Henri Fam MD 07/15/15 18:27 FINAL REPORT FINDINGS: No active process in the chest. Exam is stable compared with 04/2015. SL: WR2-M CHEM PANEL eGFR 88 07/13 Result Comment: The eGFR is calculated using the CKD-EPI formula. In most young, healthy individuals the eGFR will be >90 mL/ min/1.73m2. The eGFR declines with age. An eGFR of 60-89 may be normal in mL/min/1. some populations, particularly the elderly, for whom the CKD-EPI formula has not been extensively validated. Use of the eGFR is not recommended in the following populations: Hospital 3m2 Individuals with unstable creatinine concentrations, including patients and those with serious co-morbid conditions. Patients with extremes in muscle mass or diet. The data above are obtained from the National Kidney Disease Education Program (NKDEP) which additionally recommends that when the eGFR is used in patients with extremes of body mass index for purposes of drug dosing, the eGFR should be multiplied by the estimated BMI. CHEM PANEL AGAP 11.4 meq/L 10.0 - 07/13 [facility] CHEM PANEL Calcium Lvl 8.9 mg/dL 8.5 - 10.5 07/13 [facility] CHEM PANEL CO2 28 meq/L 24 - 32 07/13 [facility] CHEM PANEL BUN 10 mg/dL 7 - 22 07/13 [facility] CHEM PANEL Creatinine 0.87 mg/dL 0.50 - 05 [facility] 1[facility]40 [facility] CHEM PANEL Glucose Lvl 149 mg/dL 70 - 99 07/13 [facility] CHEM PANEL Sodium Lvl 142 meq/L 135 - 145 07/13 [facility] CHEM PANEL Potassium 4.4 meq/L 3.5 - 5.1 07/13 [facility] /2015 [facility] CHEM PANEL Chloride Lvl 107 meq/L 95 - 109 07/13 [facility] HEMATOLOGY Basophils # 0.0 K/CMM 0.0 - 0.2 05 [facility] HEMATOLOGY Eosinophils 0.0 K/CMM 0.0 - 0.5 05 [facility] HEMATOLOGY Monocytes # 0.1 K/CMM 0.0 - 0.8 07/13 [facility] HEMATOLOGY Monocytes 1.9 % 2.0 - 12.0 / [facility] HEMATOLOGY Segs 92.6 % 45.0 - 05 [facility] 75[facility] HEMATOLOGY Lymphocytes 5.5 % 20.0 - 05/03 [facility] 40.0 [facility] HEMATOLOGY Basophils 0.0 % 0.0 - 1.0 05/ [facility] HEMATOLOGY Eosinophils 0.0 % 0.0 - 4.0 05/ [facility] HEMATOLOGY Segs-Bands # 5.1 K/CMM 1.5 - 8.1 07/13 [facility] /2015 [facility] HEMATOLOGY Lymphocytes 0.3 K/CMM 1.0 - 5.5 07/13 [facility] # /2015 [facility] HEMATOLOGY MCV 100.8 fL 80.0 - 07/13 [facility] 94.0 /2015 [facility] HEMATOLOGY Platelet 147 K/CMM 133 - 450 07/13 [facility] HEMATOLOGY MPV 8.1 fL 7.4 - 10.4 07/13 [facility] HEMATOLOGY RDW 14.9 % 11.5 - 07/13 [facility] 14.5 /2015 [facility] HEMATOLOGY Hgb 13.6 g/dL 14.0 - 07/13 [facility] 18.0 /2015 [facility] HEMATOLOGY RBC 4.11 M/CMM 4.70 - 07/13 [facility] 6.10 [facility] HEMATOLOGY Hct 41.5 % 42.0 - 07/13 [facility] 54.0 [facility] HEMATOLOGY WBC 5.5 K/CMM 3.7 - 10.4 07/13 [facility] HEMATOLOGY MCH 33.0 pg 27.0 - 07/13 [facility] 31.0 [facility] HEMATOLOGY MCHC 32.7 g/dL 32.0 - 07/13 [facility] 36.0 [facility] CHEM PANEL eGFR 93 07/13 Result Comment: The eGFR is calculated using the CKD-EPI formula. In most young, healthy individuals the eGFR will be >90 mL/ min/1.73m2. The eGFR declines with age. An eGFR of 60-89 may be normal in mL/min/1.7 some populations, particularly the elderly, for whom the CKD-EPI formula has not been extensively validated. Use of the eGFR is not recommended in the following populations: [facility] 3m2 Individuals with unstable creatinine concentrations, including patients and those with serious co-morbid conditions. Patients with extremes in muscle mass or diet. The data above are obtained from the National Kidney Disease Education Program (NKDEP) which additionally recommends that when the eGFR is used in patients with extremes of body mass index for purposes of drug dosing, the eGFR should be multiplied by the estimated BMI. CHEM PANEL Creatinine 0.76 mg/dL 0.50 - 07/13 [facility] 1.40 /2015 [facility] HEMATOLOGY Platelet 159 K/CMM 133 - 450 07/13 [facility] HEMATOLOGY PTT 26.6 s 22.9 - 07/13 [facility] 35.8 /2015 [facility] CARDIAC Total CK 70 unit/L 12 - 191 07/12 [facility] CARDIAC Troponin-I null 0.00 - 05 [facility]YMES 0.40 [facility] CARDIAC CK MB 1.7 ng/mL 0.5 - 3.6 07/12 [facility] CARDIAC CK MB Index 2.4 0.0 - 2.5 07/12 [facility] CHEM PANEL AST 28 unit/L 0 - 37 07/12 [facility] CHEM PANEL ALT 30 unit/L 0 - 65 07/12 [facility] CHEM PANEL Albumin Lvl 3.0 g/dL 3.5 - 5.0 07/12 [facility] CHEM PANEL Total 6.6 g/dL 6.4 - 8.4 07/12 [facility] CHEM PANEL Calcium Lvl 8.8 mg/dL 8.5 - 10.5 07/12 [facility] CHEM PANEL Globulin 3.6 g/dL 2.0 - 4.0 07/12 [facility] CHEM PANEL B/C Ratio 6 6 - 25 07/12 [facility] CHEM PANEL AGAP 11.8 meq/L 10.0 - 07/12 [facility] CHEM PANEL Bili Total 0.4 mg/dL 0.2 - 1.3 07/12 [facility] CHEM PANEL Alk Phos 65 unit/L 39 - 136 07/12 [facility] CHEM PANEL BUN 5 mg/dL 7 - 22 07/12 [facility] CHEM PANEL Glucose Lvl 141 mg/dL 70 - 99 07/12 [facility] CHEM PANEL CO2 29 meq/L 24 - 32 07/12 [facility] CHEM PANEL Chloride Lvl 104 meq/L 95 - 109 07/12 [facility] CHEM PANEL Potassium 3.8 meq/L 3.5 - 5.1 07/12 [facility] CHEM PANEL Sodium Lvl 141 meq/L 135 - 145 07/12 [facility] CHEM PANEL Creatinine 0.80 mg/dL 0.50 - 05 [facility] Lvl 1.40 /2015 [facility] CHEM PANEL A/G Ratio 0.8 0.7 - 1.6 07/12 [facility] CHEM PANEL eGFR 91 07/12 Result Comment: The eGFR is calculated using the CKD-EPI formula. In most young, healthy individuals the eGFR will be >90 mL/ min/1.73m2. The eGFR declines with age. An eGFR of 60-89 may be normal in [facility] mL/min/1.7 /2015 some populations, particularly the elderly, for whom the CKD-EPI formula has not been extensively validated. Use of the eGFR is not recommended in the following populations: Hospital 3m2 Individuals with unstable creatinine concentrations, including patients and those with serious co-morbid conditions. Patients with extremes in muscle mass or diet. The data above are obtained from the National Kidney Disease Education Program (NKDEP) which additionally recommends that when the eGFR is used in patients with extremes of body mass index for purposes of drug dosing, the eGFR should be multiplied by the estimated BMI. HEMATOLOGY MPV 8.5 fL 7.4 - 10.4 07/12 [facility] HEMATOLOGY RDW 15.2 % 11.5 - 07/12 [facility] 14[facility] HEMATOLOGY Platelet 166 K/CMM 133 - 450 07/12 [facility] HEMATOLOGY MCHC 33.1 g/dL 32.0 - 07/12 [facility] 36[facility]0 [facility] HEMATOLOGY WBC 5.8 K/CMM 3.7 - 10.4 07/12 [facility] HEMATOLOGY MCV 99.9 fL 80.0 - 07/12 [facility] 94[facility]0 [facility] HEMATOLOGY MCH 33.0 pg 27.0 - 07/12 [facility] 31.0 /2015 [facility] HEMATOLOGY Hct 42.8 % 42.0 - 07/12 [facility] 54.0 /2015 [facility] HEMATOLOGY RBC 4.28 M/CMM 4.70 - 07/12 [facility] 6.10 [facility] HEMATOLOGY Hgb 14.2 g/dL 14.0 - 07/12 [facility] 18.0 [facility] HEMATOLOGY Monocytes 5.8 % 2.0 - 12.0 07/12 [facility] HEMATOLOGY Eosinophils 0.0 % 0.0 - 4.0 07/12 [facility] HEMATOLOGY Lymphocytes 10.7 % 20.0 - 07/12 [facility] 40.0 /2016 [facility] HEMATOLOGY Monocytes # 0.3 K/CMM 0.0 - 0.8 / [facility] /2015 [facility] HEMATOLOGY Lymphocytes 0.6 K/CMM 1.0 - 5.5 / [facility] # /2016 [facility] HEMATOLOGY Eosinophils 0.0 K/CMM 0.0 - 0.5 / [facility] # /2016 [facility] HEMATOLOGY Segs 83.4 % 45.0 - / [facility] 75.0 /2015 [facility] HEMATOLOGY Segs-Bands # 4.8 K/CMM 1.5 - 8.1 07/12 [facility] /2015 [facility] HEMATOLOGY Basophils 0.1 % 0.0 - 1.0 / [facility] /2015 [facility] HEMATOLOGY Basophils # 0.0 K/CMM 0.0 - 0.2 / [facility] /2016 [facility] Chest 1view Chest 1view Patient Name: SHIRLENE NICHOLAS. 07/12 - [facility] DX DX - Hospital : 1945; Age: 70 years y/o; Male. MR: [id number]. Read by: Joe Judd MD Dictated Date/time: 07/13/15 18:00 Ordering Physician: Maryuri Mariscal MD. Electronically Signed by: Joe Judd MD 07/13/15 18:01 FINAL REPORT PORTABLE CHEST AP: HISTORY: Shortness of breath, nausea, cough and weakness with worsening. Chronic obstructive pulmonary disease. COMPARISON: Chest x-ray 05/04/2015. FINDINGS: Portable frontal view of the chest was obtained. The lungs are clear bilaterally. The cardiomediastinal silhouette and pulmonary vasculature are unremarkable. The partially visualized upper abdomen is unremarkable. IMPRESSION: No acute disease in the chest. SL: WR1-M Chest wo Chest wo CT chest without contrast with high-resolution images. 05/07 - [facility] contrast CT contrast CT /2015 - Hospital INDICATION: Shortness of breath with dyspnea on exertion. Acute exacerbation of chronic obstructive pulmonary disease. Tracheobronchitis. Tobacco dependency. Read by: Sha Richey MD Dictated Date/time: 05/07/15 10:51 Electronically Signed by: Sha Richey MD 05/07/15 11:04 FINAL REPORT COMPARISON: 07/31/[address] TECHNIQUE: Helical axial images were obtained from the thoracic inlet to the level the diaphragms at 3 mm slice collimation without IV contrast with coronal and sagittal reconstructions. Additional thin cut high-resolution axial images obtained. FINDINGS: Trachea and mainstem bronchi are free of masses. No hiatal hernia identified. Thoracic aorta is normal caliber with mild calcifications. Heart is normal in size without significant volume alex cardial effusion. No enlarged mediastinal lymph nodes are seen. No pneumothorax or significant volume pleural fluid identified. Posterior subpleural dependent atelectasis is seen in the lower lobes, lef t greater than right. Lungs are very well inflated with very subtle lucent changes suggesting a component of centrilobular emphysema. No definite changes of fibrosis seen on the high-resolution images. Visualized portions of the upper liver, spleen, pancreas, and adrenal glands appear normal. 4 cm fluid density lesion in the right kidney is partially visualized in the [id number]. 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 IMPRESSION: 1. Moderate dependent atelectasis in the lower lobes. 2. Mild emphysematous changes. 3. Atherosclerosis. 4. Partial visualization of right renal cyst. SL: [id number] CHEM PANEL Magnesium 2.2 mg/dL 1.8 - 2.4 05/06 [facility] CHEM PANEL eGFR 91 05/06 Result Comment: The eGFR is calculated using the CKD-EPI formula. In most young, healthy individuals the eGFR will be >90 mL/ min/1.73m2. The eGFR declines with age. An eGFR of 60-89 may be normal in [facility] mL/min/1. some populations, particularly the elderly, for whom the CKD-EPI formula has not been extensively validated. Use of the eGFR is not recommended in the following populations: Hospital 3m2 Individuals with unstable creatinine concentrations, including patients and those with serious co-morbid conditions. Patients with extremes in muscle mass or diet. The data above are obtained from the National Kidney Disease Education Program (NKDEP) which additionally recommends that when the eGFR is used in patients with extremes of body mass index for purposes of drug dosing, the eGFR should be multiplied by the estimated BMI. CHEM PANEL Globulin 3.1 g/dL 2.0 - 4.0 05/06 [facility] CHEM PANEL A/G Ratio 0.9 0.7 - 1.6 05/06 [facility] CHEM PANEL Glucose Lvl 170 mg/dL 70 - 99 05/06 [facility] CHEM PANEL Bili Total 0.3 mg/dL 0.2 - 1.3 05/06 [facility] CHEM PANEL AGAP 14.1 meq/L 10.0 - 05/06 [facility] 20[facility] CHEM PANEL B/C Ratio 25 6 - 25 05/06 [facility] CHEM PANEL Creatinine 0.79 mg/dL 0.50 - 05/06 [facility] CHEM PANEL BUN 20 mg/dL 7 - 05/06 [facility] CHEM PANEL CO2 25 meq/L 24 - 32 05/06 [facility] CHEM PANEL Calcium Lvl 8.4 mg/dL 8.5 - 10.5 05/06 [facility] CHEM PANEL Total 6.0 g/dL 6.4 - 8.4 05/06 [facility] CHEM PANEL Albumin Lvl 2.9 g/dL 3.5 - 5.0 05/06 [facility] CHEM PANEL ALT 74 unit/L 0 - 65 05/06 [facility] CHEM PANEL AST 22 unit/L 0 - 37 05/06 [facility] CHEM PANEL Alk Phos 46 unit/L 39 - 136 05/06 [facility] CHEM PANEL Potassium 4.1 meq/L 3.5 - 5.1 05/06 [facility] CHEM PANEL Chloride Lvl 107 meq/L 95 - 109 05/06 [facility] CHEM PANEL Sodium Lvl 142 meq/L 135 - 145 05/06 [facility] HEMATOLOGY Hgb 14.1 g/dL 14.0 - 05/06 [facility] 18[facility]0 [facility] HEMATOLOGY RBC 4.17 M/CMM 4.70 - 05/06 [facility] 6.10 [facility] HEMATOLOGY RDW 13.8 % 11.5 - 05/06 [facility] 14[facility]5 [facility] HEMATOLOGY MCHC 33.5 g/dL 32.0 - 05/06 [facility] HEMATOLOGY MPV 8.9 fL 7.4 - 10.4 05/06 [facility] HEMATOLOGY Platelet 119 K/CMM 133 - 450 05/06 [facility] HEMATOLOGY WBC 13.0 K/CMM 3.7 - 10.4 05/06 [facility] HEMATOLOGY Hct 42.0 % 42.0 - 05/06y 54.0 Hospital HEMATOLOGY MCH 33.8 pg 27.0 - 05/06y 31.0 Hospital HEMATOLOGY MCV 100.7 fL 80.0 - 05/06y 94.0 Hospital CHEM PANEL eGFR 72 05/04 Result Comment: The eGFR is calculated using the CKD-EPI formula. In most young, healthy individuals the eGFR will be >90 mL/ min/1.73m2. The eGFR declines with age. An eGFR of 60-89 may be normal in mL/min/1.7 some populations, particularly the elderly, for whom the CKD-EPI formula has not been extensively validated. Use of the eGFR is not recommended in the following populations: Hospital 3m2 Individuals with unstable creatinine concentrations, including patients and those with serious co-morbid conditions. Patients with extremes in muscle mass or diet. The data above are obtained from the National Kidney Disease Education Program (NKDEP) which additionally recommends that when the eGFR is used in patients with extremes of body mass index for purposes of drug dosing, the eGFR should be multiplied by the estimated BMI. CHEM PANEL Creatinine 1.05 mg/dL 0.50 - 05/04 [facility] 1[facility]40 [facility] CHEM PANEL Glucose Lvl 134 mg/dL 70 - 99 05/04 [facility] CHEM PANEL BUN 22 mg/dL 7 - 22 05/04 [facility] CHEM PANEL Chloride Lvl 105 meq/L 95 - 109 05/04 [facility] CHEM PANEL Calcium Lvl 8.7 mg/dL 8.5 - 10.5 05/04 [facility] CHEM PANEL CO2 29 meq/L 24 - 32 05/04 [facility] CHEM PANEL Potassium 4.3 meq/L 3.5 - 5.1 05/04 [facility] CHEM PANEL Sodium Lvl 141 meq/L 135 - 145 05/04 [facility] CHEM PANEL AGAP 11.3 meq/L 10.0 - 05/04 20.0 Hospital HEMATOLOGY Hct 45.4 % 42.0 - 05/04 [facility] 54.0 /2015 [facility] HEMATOLOGY MCH 33.8 pg 27.0 - 05/04 [facility] 31.0 /2015 [facility] HEMATOLOGY MCV 101.0 fL 80.0 - 05/04 [facility] 94.0 /2015 [facility] HEMATOLOGY MPV 8.7 fL 7.4 - 10.4 05/04 [facility] /2015 [facility] HEMATOLOGY MCHC 33.5 g/dL 32.0 - 05/04 [facility] 36.0 /2015 [facility] HEMATOLOGY Hgb 15.2 g/dL 14.0 - 05/04 [facility] 18.0 /2015 [facility] HEMATOLOGY RBC 4.50 M/CMM 4.70 - 05/04 [facility] 6.10 /2015 [facility] HEMATOLOGY WBC 12.5 K/CMM 3.7 - 10.4 05/04 [facility] /2015 [facility] HEMATOLOGY Platelet 153 K/CMM 133 - 450 05/04 [facility] /2015 [facility] HEMATOLOGY RDW 14.0 % 11.5 - 05/04 [facility] 14.5 [facility] Chest 1view Chest 1view Chest one view 05/04 - [facility] DX DX /2015 - Hospital HISTORY: Short of breath Read by: Henri Fam MD Dictated Date/time: 05/04/15 20:35 Electronically Signed by: Henri Fam MD 05/04/15 20:36 FINAL REPORT COMPARISON: 04/25/2014 Lungs are hyperinflated but clear. No pleural fluid or pneumothorax. The heart and mediastinal contours stable.. IMPRESSION: No active process. SL: 200 Carotid Carotid CAROTID DOPPLER ULTRASOUND 07/28 - [facility] artery artery /2014 [facility] Doppler Doppler bilat US bilat US INDICATION: 785.9. Other symptoms involving cardiovascular system. Carotid bruit Read by: Sammy Henry MD Dictated Date/time: 07/28/14 16:47 Electronically Signed by: Sammy Henry 07/28/14 16:53 FINAL REPORT TECHNIQUE: Black scale, color Doppler and spectral Doppler of the carotid arteries was performed. Any reported ICA stenoses indirectly references the distal internal carotid diameter as the denominator for stenosis measurement utilizing Consensus Panel Criteria. No comparison studies. RIGHT: Mild atherosclerotic plaque ICA PSV- 99 cm/sec CCA PSV- 94 cm/sec ICA/CCA Ratio- 1.0 Vertebral flow is antegrade LEFT: Mild atherosclerotic plaque ICA PSV- 131 cm/sec CCA PSV- 119 cm/sec ICA/CCA Ratio- 1.1 Vertebral flow is antegrade IMPRESSION: 1. RIGHT: ICA stenosis less than 50 % by velocity criteria. 2. LEFT: ICA stenosis less than 50 % by velocity criteria. SL: 41 CONSENSUS PANEL DOPPLER US CRITERIA FOR DIAGNOSIS OF ICA STENOSIS. Stenosis (%) ICA PSV (cm/s) ICA/CCA ratio <50 <125 <2.0 50-69 125-230 2.0 - 4.0 >70 >230 >4.0 Chest 1view Chest 1view One view portable chest: 04/25 - [facility] DX DX /2014 - Hospital HISTORY: Asthma exacerbation. Read by: Henri Fam MD Dictated Date/time: 04/25/14 11:24 Electronically Signed by: Henri Fam MD 04/25/14 11:24 FINAL REPORT FINDINGS: Lungs are hyperinflated but clear. The heart and mediastinal contours stable from 05/16/2013. No pleural fluid or pneumothorax. IMPRESSION: No acute finding. SL: 200 Shoulder wo Shoulder wo MRI LEFT SHOULDER WITHOUT CONTRAST: 11/27 - [facility] contrast contrast MRI /2013 - [facility] MRI HISTORY: Left shoulder pain. Read by: Joe Judd MD Dictated Date/time: 11/27/13 19:44 Electronically Signed by: Joe Judd MD 11/27/13 19:55 FINAL REPORT COMPARISON: None. FINDINGS: Multiplanar multisequence MRI of the left shoulder was performed without intravenous or intra-articular gadolinium based contrast. Intrasubstance signal is noted along the undersurface of the supraspinatus tendon just proximal to its greater tuberosity insertion/footprint compatible with either tendinopathy versus partial thickness undersurface tear. Tendinopathy versus partial thickness undersurface tear of the infraspinatus is also noted, best seen on sagittal T2 fat-sat sequence image 7. Teres minor and subscapularis tendons a re normal in signal and morphology. No evidence of full-thickness rotator cuff tear or subacromial/subdeltoid bursitis to suggest pinpoint full-thickness rotator cuff tear. Rotator cuff muscles are well preserved without edema or fatty atrophy. Long head of biceps tendon is normal in signal and morphology. Minimal glenohumeral spurring is noted. 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 Tear of the entire posterior glenoid labrum noted with paralabral cysts. Intras ubstance signal is also noted within the superior glenoid labrum extending posterior to the biceps anchor, highly suspicious for nondisplaced SLAP type labral tear. No evidence of tear involving the anterior glenoid labrum. Mild hypertrophic degenerative change of the acromioclavicular joint is noted. No evidence of subacromial spurring or os acromiale. IMPRESSION: 1. Tendinopathy versus partial-thickness undersurface tear of both supraspinatus and infraspinatus tendons as described. No evidence of full- thickness rotator cuff tear. 2. Tear of the entire posterior glenoid labrum with paralabral cysts. SLAP type labral tear is also suspected as described. 3. 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 Mild hypertrophic degenerative change of the AC joint. SL:02 Bone Bone Density - Bone Density DXA [employer] MA 10/09 - OPID Density DXA DXA /2013 - [employer] OR MALE BONE DENSITY EVALUATION: 10/09/2013 MA Read by: Bobby Sheldon MD Dictated Date/time: 10/09/13 15:52 RISK FACTORS: race. Electronically Signed by: Bobby Sheldon MD 10/09/13 15:52 FINAL REPORT FINDINGS: Bone density evaluation was performed 10/09/2013 on the AP L1-L4 region of spine using a Hologic unit. The BMD average for the exam is 0.810 g/cm2. The T- score is -2.60 and the Z-score is -1.70. This matches the World Health Organization's criteria for osteoporosis and places the patient at a high risk for fracture. An additional bone density evaluation was performed 10/09/2013 on the left femur neck using a Hologic unit. The BMD average for the exam is 0.655 g/cm2. The T-score is -2.00 and the Z-score is -0.90. This matches the World Health Organization's criteria for osteopenia and places the patient at a medium risk for fracture. An additional bone density evaluation was performed 10/09/2013 on the left hip using a Hologic unit. The BMD average for the exam is 0.765 g/cm2. The T- score is -1.80 and the Z-score is -1.20. This ma tches the World Health Organization's criteria for osteopenia and places the patient at a medium risk for fracture. IMPRESSION: OSTEOPOROSIS Patient is at high risk for fracture. Bobby Sheldon M.D. dg/lamont:10/09/2013 15:52:48 Chemical Strength Tester: Meeta TORRESy ELECTROLYTE AGAP 11.8 meq/L 10.0 - 05/16 [facility] S 20.0 [facility] ELECTROLYTE Chloride Lvl 107 meq/L 95 - 109 05/16 [facility] ELECTROLYTE Sodium Lvl 142 meq/L 135 - 145 05/16 [facility] S [facility] ELECTROLYTE Potassium 3.8 meq/L 3.5 - 5.1 05/16 [facility] S Lvl [facility] ELECTROLYTE eGFR 88 05/16 1Result Comment: The eGFR is calculated using the CKD-EPI formula. In most young, healthy individuals the eGFR will be > 90 mL/min/1.73m2. The eGFR declines with age. An eGFR of 60-89 may be normal in [facility] mL/min/1. some populations, particularly the elderly, for whom the CKD-EPI formula has not been extensively validated. Use of the eGFR is not recommended in the following populations: Hospital 3m2 Individuals with unstable creatinine concentrations, including patients and those with serious co-morbid conditions. Patients with extremes in muscle mass or diet. The data above are obtained from the National Kidney Disease Education Program (NKDEP) which additionally recommends that when the eGFR is used in patients with extremes of body mass index for purposes of drug dosing, the eGFR should be multiplied by the estimated BMI. ELECTROLYTE Glucose Lvl 104 mg/dL 70 - 99 05/16 2Interpretive Data: Adult reference range values reflect the clinical guidelines of the [place] [employer]. Hospital ELECTROLYTE CO2 27 meq/L 24 - 32 05/16 Hospital ELECTROLYTE Calcium Lvl 8.9 mg/dL 8.5 - 10.5 05/16 Hospital ELECTROLYTE BUN 10 mg/dL 7 - 22 05/16 [facility] ELECTROLYTE Creatinine 0.9 mg/dL 0.5 - 1.4 05/16 [facility] L[facility] HEMATOLOGY Monocytes # 0.6 K/CMM 0.0 - 0.8 05/16 [facility] HEMATOLOGY Eosinophils 0.1 K/CMM 0.0 - 0.5 05/16 [facility] # [facility] HEMATOLOGY Basophils # 0.0 K/CMM 0.0 - 0.2 05/16 Hospital HEMATOLOGY Eosinophils 1.6 % 0.0 - 4.0 05/16 Hospital HEMATOLOGY Monocytes 7.2 % 2.0 - 12.0 05/16 [facility] HEMATOLOGY Segs-Bands # 6.2 K/CMM 1.5 - 8.1 05/16 Hospital HEMATOLOGY Basophils 0.2 % 0.0 - 1.0 05/16 [facility] HEMATOLOGY Lymphocytes 1.1 K/CMM 1.0 - 5.5 05/16 [facility] HEMATOLOGY Lymphocytes 14.2 % 20.0 - 05/16 [facility] 40.0 [facility] HEMATOLOGY Segs 76.8 % 45.0 - 05/16 [facility] 75.0 [facility] HEMATOLOGY MCV 98.1 fL 80.0 - 05/16 [facility] 94.0 [facility] HEMATOLOGY Hgb 13.9 g/dL 14.0 - 05/16 [facility] 18.0 [facility] HEMATOLOGY MCH 33.3 pg 27.0 - 05/16 [facility] 31.0 [facility] HEMATOLOGY Hct 40.9 % 42.0 - 05/16 [facility] 54.0 [facility] HEMATOLOGY MCHC 34.0 g/dL 32.0 - 05/16 [facility] 36.0 [facility] HEMATOLOGY Platelet 149 K/CMM 133 - 450 05/16 [facility] HEMATOLOGY RDW 13.7 % 11.5 - 05/16 [facility] 14.5 [facility] HEMATOLOGY MPV 8.9 fL 7.4 - 10.4 05/16 [facility] HEMATOLOGY RBC X 10x6 4.17 M/CMM 4.70 - 05/16 [facility] 6.10 [facility] HEMATOLOGY WBC X 10x3 8.0 K/CMM 3.7 - 10.4 05/16 [facility] Chest 2 Chest 2 2 VIEW CHEST X-RAY 05/16 - [facility] views - Hospital HISTORY: Chest tightness. Read by: Kevon Mendoza Dictated Date/time: 05/16/13 13:04 Electronically Signed by: Kevon Mendoza MD 05/16/13 13:05 FINAL REPORT COMPARISON: No relevant priors available. Lungs are hyperinflated but free of infiltrate. The heart and mediastinum are normal.. IMPRESSION: Pulmonary hyperinflation otherwise normal exam . SL: 02 HEMATOLOGY Large Plt Slight None Seen 09/12 [facility] *ABN* (09/12/2012 03:55:40) HEMATOLOGY Tear Cell Slight None Seen 09/12 [facility] *ABN* (09/12/2012 03:55:40) HEMATOLOGY Elliptocyte Slight None Seen 09/12 [facility] *ABN* (09/12/2012 03:55:40) HEMATOLOGY Basophils # 0.0 K/CMM 0.0 - 0.2 09/12 Normal [facility] HEMATOLOGY Macrocyte 1+ None Seen 09/12 [facility] *ABN* (09/12/2012 03:55:40) HEMATOLOGY Monocytes # 0.5 K/CMM 0.0 - 0.8 09/12 Normal [facility] HEMATOLOGY Eosinophils 0.0 K/CMM 0.0 - 0.5 09/12 Normal [facility] HEMATOLOGY Lymphocytes 0.8 K/CMM 1.0 - 5.5 09/12 LOW [facility] HEMATOLOGY Lymphocytes 4.6 % 20.0 - 07 LOW [facility] 40.0 Hospital HEMATOLOGY Monocytes 3.1 % 2.0 - 12.0 09/12 Normal [facility] HEMATOLOGY Segs-Bands # 15.4 K/CMM 1.5 - 8.1 09/12 [facility] /2012 Hospital HEMATOLOGY Eosinophils 0.0 % 0.0 - 4.0 09/12 Normal [facility] /2012 Hospital HEMATOLOGY Basophils 0.0 % 0.0 - 1.0 09/12 Normal [facility] HEMATOLOGY Plt Morph Normal 09/12 Normal [facility] /2012 Hospital (09/12/2012 03:55:40) HEMATOLOGY Segs 92.3 % 45.0 - 09/12 [facility] 75.0 [facility] HEMATOLOGY Bands 0.0 % 0.0 - 11.0 09/12 Normal [facility] HEMATOLOGY MPV 9.3 fL 7.4 - 10.4 09/12 Normal [facility] HEMATOLOGY Hct 40.0 % 42.0 - 09/12 LOW [facility] 54.0 Hospital HEMATOLOGY MCV 97.4 fL 80.0 - 09/12 [facility] 94.0 [facility] HEMATOLOGY MCH 32.4 pg 27.0 - 09/12 [facility] 31.0 [facility] HEMATOLOGY Hgb 13.3 g/dL 14.0 - 09/12 LOW [facility] 18.0 [facility] HEMATOLOGY WBC 16.7 K/CMM 3.7 - 10.4 09/12 [facility] /2012 Hospital HEMATOLOGY RBC 4.11 M/CMM 4.70 - 09/12 LOW [facility] 6.10 Hospital HEMATOLOGY MCHC 33.3 g/dL 32.0 - 09/12 Normal [facility] 36.0 Hospital HEMATOLOGY RDW 15.0 % 11.5 - 09/12 [facility] 14.5 /2012 Hospital HEMATOLOGY Platelet 114 K/CMM 133 - 450 09/12 LOW [facility] CHEMISTRY eGFR 78 09/11 NA 1Result Comment: The eGFR is calculated using the CKD-EPI formula. In most young, healthy individuals the eGFR will be > 90 mL/min/1.73m2. The eGFR declines with age. An eGFR of 60-89 may be normal in [facility] mL/min/1.7 some populations, particularly the elderly, for whom the CKD-EPI formula has not been extensively validated. Use of the eGFR is not recommended in the following populations: Hospital 3m2 Individuals with unstable creatinine concentrations, including patients and those with serious co-morbid conditions. Patients with extremes in muscle mass or diet. The data above are obtained from the National Kidney Disease Education Program (NKDEP) which additionally recommends that when the eGFR is used in patients with extremes of body mass index for purposes of drug dosing, the eGFR should be multiplied by the estimated BMI. CHEMISTRY Chloride Lvl 106 meq/L 95 - 109 09/11 Normal Hospital CHEMISTRY CO2 27 meq/L 24 - 32 09/11 Normal Hospital CHEMISTRY Creatinine 1.0 mg/dL 0.5 - 1.4 09/11 [facility] CHEMI[facility]Y Calcium Lvl 9.0 mg/dL 8.5 - 10.5 09/11 Normal [facility] CHEMISTRY Sodium Lvl 143 meq/L 135 - 145 09/11 Normal Hospital CHEMISTRY Potassium 4.4 meq/L 3.5 - 5.1 09/11 Normal [facility] Lvl Hospital CHEMISTRY BUN 15 mg/dL 7 - 22 09/11 Normal Hospital CHEMISTRY Glucose Lvl 139 mg/dL 70 - 99 09/11 [facility] 2Interpretive Data: Adult reference range values reflect the clinical guidelines of the [place] [employer]. Hospital CHEMISTRY AGAP 14.4 meq/L 10.0 - 09/11 Normal [facility] 20.0 [facility] HEMATOLOGY Hgb 14.7 g/dL 14.0 - 09/11 Normal [facility] 18.0 /2012 Hospital HEMATOLOGY MCV 96.9 fL 80.0 - 09/11 HI [facility] 94.0 /2012 Hospital HEMATOLOGY Hct 43.9 % 42.0 - 07 Normal [facility] 54.0 /2012 Hospital HEMATOLOGY MCHC 33.4 g/dL 32.0 - 07/ Normal [facility] 36.0 /2012 Hospital HEMATOLOGY MCH 32.4 pg 27.0 - 07 HI [facility] 31.0 /2012 Hospital HEMATOLOGY RDW 15.1 % 11.5 - 07/ HI [facility] 14.5 /2012 Hospital HEMATOLOGY Platelet 136 K/CMM 133 - 450 07 Normal [facility] HEMATOLOGY MPV 9.5 fL 7.4 - 10.4 09/11 Normal [facility] HEMATOLOGY WBC 18.4 K/CMM 3.7 - 10.4 07/ [facility] /2012 Hospital HEMATOLOGY RBC 4.53 M/CMM 4.70 - 07/ LOW MH [facility] 6.10 /2012 Hospital HEMATOLOGY Basophils # 0.0 K/CMM 0.0 - 0.2 07/ Normal [facility] /2012 Hospital HEMATOLOGY Eosinophils 0.0 K/CMM 0.0 - 0.5 07/ Normal [facility] # /2012 Hospital HEMATOLOGY Monocytes # 0.6 K/CMM 0.0 - 0.8 07/ Normal [facility] /2012 Hospital HEMATOLOGY Monocytes 3.2 % 2.0 - 12.0 07/ Normal [facility] /2012 Hospital HEMATOLOGY Segs-Bands # 17.1 K/CMM 1.5 - 8.1 09/11 [facility] HEMATOLOGY Lymphocytes 0.7 K/CMM 1.0 - 5.5 07/ LOW [facility] # /2012 Hospital HEMATOLOGY Eosinophils 0.0 % 0.0 - 4.0 / Normal [facility] HEMATOLOGY Basophils 0.0 % 0.0 - 1.0 07/ Normal [facility] /2012 [facility] HEMATOLOGY Segs 92.9 % 45.0 - 07/ [place] [facility] 75.0 /2012 Hospital HEMATOLOGY Plt Morph Normal 09/11 Normal [facility] /2012 [facility] (09/11/2012 12:30:00) HEMATOLOGY Lymphocytes 3.9 % 20.0 - 07/ LOW MH [facility] 40.0 /2012 Hospital HEMATOLOGY RBC Morph Normal / Normal [facility] /2012 [facility] (09/11/2012 12:30:00) Vital Signs Vital Sign Value Date Comments Source Height 182.88 cm 06/05/2017 [facility] BMI Calculated 21.25 06/05/2017 [facility] Weight 71.08 06/05/2017 [facility] Systolic (mm Hg) 116 06/05/2017 [facility] Diastolic (mm Hg) 66 06/05/2017 [facility] Weight 68.693 04/24/2017 [facility] BMI Calculated 20.54 04/24/2017 [facility] Height 182.88 cm 04/24/2017 [facility] Heart Rate 92 04/24/2017 [facility] Systolic (mm Hg) 146 04/24/2017 [facility] Diastolic (mm Hg) 89 04/24/2017 [facility] Heart Rate 81 06/28/2016 [facility] Respitory Rate 20 06/28/2016 [facility] Systolic (mm Hg) 136 06/28/2016 [facility] Hospital Diastolic (mm Hg) 76 06/28/2016 [facility] Temperature Oral (F) 98.5 F 06/28/2016 [facility] Systolic (mm Hg) 134 06/28/2016 [facility] Diastolic (mm Hg) 75 06/28/2016 [facility] Respitory Rate 20 06/28/2016 [facility] Heart Rate 95 06/28/2016 [facility] Temperature Oral (F) 98.1 F 06/28/2016 [facility] Temperature Oral (F) 97.5 F 06/28/2016 [facility] Heart Rate 92 06/28/2016 [facility] Systolic (mm Hg) 153 06/28/2016 [facility] Diastolic (mm Hg) 79 06/28/2016 [facility] Respitory Rate 18 06/28/2016 [facility] Weight 71.682 06/22/2016 [facility] BMI Calculated 21.43 06/22/2016 [facility] Height 182.88 cm 06/22/2016 [facility] Weight 69.091 06/21/2016 [facility] Height 182.88 cm 06/21/2016 [facility] BMI Calculated 20.66 06/21/2016 [facility] Heart Rate 79 05/31/2016 [facility] Respitory Rate 16 05/31/2016 [facility] Temperature Oral (F) 97.8 F 05/31/2016 [facility] Weight 163 05/31/2016 [facility] Diastolic (mm Hg) 84 05/31/2016 [facility] Systolic (mm Hg) 130 05/31/2016 [facility] Systolic (mm Hg) 142 05/18/2016 [facility] Diastolic (mm Hg) 69 05/18/2016 [facility] Heart Rate 70 05/18/2016 [facility] Respitory Rate 18 05/18/2016 [facility] Temperature Oral (F) 98.5 F 05/18/2016 [facility] Temperature Oral (F) 98.4 F 05/18/2016 [facility] Heart Rate 61 05/18/2016 [facility] Systolic (mm Hg) 154 05/18/2016 [facility] Diastolic (mm Hg) 89 05/18/2016 [facility] Respitory Rate 17 05/18/2016 [facility] Temperature Oral (F) 98.2 F 05/18/2016 [facility] Respitory Rate 18 05/18/2016 [facility] Heart Rate 51 05/18/2016 [facility] Systolic (mm Hg) 163 05/18/2016 [facility] Diastolic (mm Hg) 80 05/18/2016 [facility] Height 182.88 cm 05/18/2016 [facility] BMI Calculated 22.29 05/18/2016 [facility] Weight 74.545 05/18/2016 [facility] BMI Calculated 22.29 05/17/2016 [facility] Height 182.88 cm 05/17/2016 [facility] Weight 74.545 05/17/2016 [facility] Systolic (mm Hg) 138 07/20/2015 [facility] Diastolic (mm Hg) 67 07/20/2015 [facility] Respitory Rate 18 07/20/2015 [facility] Heart Rate 65 07/20/2015 [facility] Temperature Oral (F) 98.4 F 07/20/2015 [facility] Temperature Oral (F) 98.3 F 07/20/2015 [facility] Respitory Rate 18 07/20/2015 [facility] Systolic (mm Hg) 130 07/20/2015 [facility] Diastolic (mm Hg) 74 07/20/2015 [facility] Heart Rate 63 07/20/2015 [facility] Respitory Rate 18 07/20/2015 [facility] Heart Rate 71 07/20/2015 [facility] Systolic (mm Hg) 119 07/20/2015 [facility] Diastolic (mm Hg) 67 07/20/2015 [facility] Temperature Oral (F) 97.4 F 07/20/2015 [facility] Height 203.2 cm 07/16/2015 [facility] BMI Calculated 22.2 07/15/2015 [facility] Height 175.26 cm 07/15/2015 [facility] Weight 68.182 07/15/2015 [facility] Respitory Rate 18 07/14/2015 [facility] Heart Rate 78 07/14/2015 [facility] Systolic (mm Hg) 110 07/14/2015 [facility] Hospital Diastolic (mm Hg) 54 07/14/2015 [facility] Temperature Oral (F) 98.6 F 07/14/2015 [facility] Hospital Respitory Rate 18 07/14/2015 [facility] Systolic (mm Hg) 136 07/14/2015 [facility] Hospital Diastolic (mm Hg) 76 07/14/2015 [facility] Hospital Heart Rate 61 07/14/2015 [facility] Temperature Oral (F) 98 F 07/14/2015 [facility] Temperature Oral (F) 98.2 F 07/14/2015 [facility] Heart Rate 83 07/14/2015 [facility] Systolic (mm Hg) 134 07/14/2015 [facility] Diastolic (mm Hg) 75 07/14/2015 [facility] Respitory Rate 18 07/14/2015 [facility] Height 182.88 cm 07/14/2015 [facility] Height 182.88 cm 07/14/2015 [facility] BMI Calculated 21.51 07/13/2015 [facility] Weight 71.932 07/13/2015 [facility] Height 182.88 cm 07/13/2015 [facility] Heart Rate 78 05/07/2015 [facility] Temperature Oral (F) 98 F 05/07/2015 [facility] Systolic (mm Hg) 132 05/07/2015 [facility] Diastolic (mm Hg) 78 05/07/2015 [facility] Respitory Rate 18 05/07/2015 [facility] Temperature Oral (F) 98.1 F 05/07/2015 [facility] Respitory Rate 18 05/07/2015 [facility] Systolic (mm Hg) 125 05/07/2015 [facility] Hospital Diastolic (mm Hg) 75 05/07/2015 [facility] Hospital Heart Rate 74 05/07/2015 [facility] Heart Rate 75 05/07/2015 [facility] Systolic (mm Hg) 134 05/07/2015 [facility] Diastolic (mm Hg) 69 05/07/2015 [facility] Respitory Rate 19 05/07/2015 [facility] Temperature Oral (F) 97.9 F 05/07/2015 [facility] Weight 71.023 05/04/2015 [facility] BMI Calculated 21.24 05/04/2015 [facility] Height 182.88 cm 05/04/2015 [facility] Height 182.88 cm 05/04/2015 [facility] Weight 72.727 05/04/2015 [facility] BMI Calculated 21.75 05/04/2015 [facility] Height 72 07/23/2014 [facility] Weight 160 07/23/2014 [facility] Systolic (mm Hg) 157 07/23/2014 [facility] Diastolic (mm Hg) 81 07/23/2014 [facility] Temperature Oral (F) 98.5 F 07/23/2014 [facility] Respitory Rate 17 07/23/2014 [facility] Heart Rate 82 07/23/2014 [facility] Height 72 03/14/2014 [facility] Temperature Oral (F) 97 F 03/14/2014 [facility] Respitory Rate 17 03/14/2014 [facility] Heart Rate 17 03/14/2014 [facility] Systolic (mm Hg) 172 03/14/2014 [facility] Diastolic (mm Hg) 80 03/14/2014 [facility] Height 72 02/20/2014 [facility] Weight 98.3 02/20/2014 [facility] Temperature Oral (F) 98.3 F 02/20/2014 [facility] Respitory Rate 17 02/20/2014 [facility] Heart Rate 102 02/20/2014 [facility] Systolic (mm Hg) 143 02/20/2014 [facility] Diastolic (mm Hg) 83 02/20/2014 [facility] Height 72 02/18/2014 [facility] Weight 167 02/18/2014 [facility] Temperature Oral (F) 98.3 F 02/18/2014 [facility] Respitory Rate 16 02/18/2014 [facility] Heart Rate 74 02/18/2014 [facility] Systolic (mm Hg) 149 02/18/2014 [facility] Diastolic (mm Hg) 78 02/18/2014 [facility] Height 72 12/03/2013 [facility] Weight 167 12/03/2013 [facility] Temperature Oral (F) 98.3 F 12/03/2013 [facility] Respitory Rate 17 12/03/2013 [facility] Heart Rate 67 12/03/2013 [facility] Systolic (mm Hg) 157 12/03/2013 [facility] Diastolic (mm Hg) 76 12/03/2013 [facility] Systolic (mm Hg) 151 11/26/2013 [facility] Diastolic (mm Hg) 75 11/26/2013 [facility] Weight 167 11/26/2013 [facility] Temperature Oral (F) 98.4 F 11/26/2013 [facility] Respitory Rate 17 11/26/2013 [facility] Heart Rate 75 11/26/2013 [facility] Height 72 11/26/2013 [facility] Temperature Oral (F) 98.1 F 05/18/2013 [facility] Hospital Respitory Rate 18 05/18/2013 [facility] Heart Rate 85 05/18/2013 [facility] Hospital Systolic (mm Hg) 116 05/18/2013 [facility] Hospital Diastolic (mm Hg) 62 05/18/2013 [facility] Hospital Systolic (mm Hg) 118 05/18/2013 [facility] Hospital Diastolic (mm Hg) 60 05/18/2013 [facility] Hospital Temperature Oral (F) 96.8 F 05/18/2013 [facility] Hospital Respitory Rate 18 05/18/2013 [facility] Hospital Heart Rate 82 05/18/2013 [facility] Hospital Diastolic (mm Hg) 59 05/18/2013 [facility] Temperature Oral (F) 96.5 F 05/18/2013 [facility] Hospital Respitory Rate 18 05/18/2013 [facility] Hospital Systolic (mm Hg) 114 05/18/2013 [facility] Hospital Heart Rate 68 05/18/2013 [facility] BMI Calculated 24.19 05/16/2013 [facility] Weight 80.909 05/16/2013 [facility] Height 182.88 cm 05/16/2013 [facility] Hospital Respitory Rate 18 09/12/2012 [facility] Hospital Systolic (mm Hg) 128 09/12/2012 [facility] Hospital Diastolic (mm Hg) 68 09/12/2012 [facility] Hospital Temperature Oral (F) 96.9 F 09/12/2012 [facility] Heart Rate 61 09/12/2012 [facility] Hospital Diastolic (mm Hg) 66 09/12/2012 [facility] Hospital Systolic (mm Hg) 127 09/12/2012 [facility] Hospital Respitory Rate 18 09/12/2012 [facility] Heart Rate 91 09/12/2012 [facility] Hospital Temperature Oral (F) 96.3 F 09/12/2012 [facility] Hospital Systolic (mm Hg) 129 09/12/2012 [facility] Hospital Diastolic (mm Hg) 63 09/12/2012 [facility] Heart Rate 57 09/12/2012 [facility] Respitory Rate 18 09/12/2012 [facility] Temperature Oral (F) 96.9 F 09/12/2012 [facility] Weight 80.028 09/11/2012 [facility] Height 182.88 cm 09/11/2012 [facility] Encounters Location Location Encounter Encounter Reason Attending ADM DC Status Source Details Type Number For Provider Date Date Visit [facility] Inpatient [id number] JOSÉ MIGUEL ASHISH 09/11 09/12 Active [facility] Inpatient [id number] _MAPID: José Miguel Brunner 05/17 05/18 [facility] [place] 5 [id number] ENCNTRR /2013 [facility] [id number] [facility] Outpt Diag [id number] Sriram Royal 10/09 10/10 [facility] 0 [facility] Tavares [facility] Office [id number] Ifeanyi 11/26 11/26 [place] Visit [id number] DeFriece, [facility] Outpt Diag [id number] Ifeanyi 11/27 11/28 [facility] 1 DeFriece /2013 [facility] Tavares [facility] Lab Report [id number] Ifeanyi 11/28 11/28 [place] [address] DeFriece, [facility] Group - [facility] Office [id number] Ifeanyi 12/03 12/03 [place] Visit [id number] DeFriece, [facility] Office [id number] Ifeanyi 02/18 02/18 [place] Visit [id number] DeFriece, Medical Medical MD [facility] Office [id number] Ifeanyi 02/20 02/20 [facility] Visit [id number] DeFriece, [facility] Office [id number] Ifeanyi 03/14 03/14 [place] Visit [id number] DeFriece, [facility] Office [id number] Ifeanyi 07/23 07/23 [place] Visit [id number] DeFriece, /2014 [facility] Outpt Diag [id number] Ifeanyi 07/28 07/29 [facility] 2 DeFriece /2014 [facility] [facility] Out[facility] Diag [id number] Ifeanyi 07/31 08/01 [facility] 3 DeFriece /2014 [facility] Outpatient [id number] IFEANYI 04/17 Active [facility] 0 [facility] Inpatient [id number] José Miguel Brunner 05/06 05/07 [facility] [place] [facility] OBS [id number] Alicia 07/12 07/13 [facility] [place] [facility] 4 [facility] Inpatient [id number] Alicia 07/14 07/19 [facility] 5 [facility] Outpatient [id number] AXEL 03/03 Active [facility] 1 [place] Outpatient [id number] AXEL 03/22 Active [facility] 2 [place] Outpatient [id number] AXEL 05/11 Active [facility] 3 [place] Outpatient [id number] AXEL 05/17 [facility] 4 [facility] Inpatient [id number] Crow Madni 05/17 05/19 MH [facility] [place] [facility] Wound Care [id number] Ebba Ning 05/30 06/29 [facility] [place] [facility] [id number] Kohler 06/21 06/29 [facility] [place] 9 Ishfaq [facility] Outpatient [id number] AXEL 07/11 Active [facility] Outpatient [id number] AXEL 08/04 Active [facility] [place] Outpatient [id number] AXEL 08/09 Active [facility] Outpatient [id number] NURSE VISIT 08/11 Active [facility] Outpatient [id number] AXEL 08/17 Active [facility] 9 [place] GUTIERREZA Phone [phone] 04/12 04/14 [facility] Neurology Message Neuro [facility] Outpatient [id number] Ifeanyi 04/24 04/25 [facility] Neurology 3 DeFri Neuro [facility]NA Outpatient [id number] Roddy Wyatt 06/05 06/06 [facility] Neurology Neuro [facility] MNA Ambulatory [id number] Roddy Wyatt 11/29 11/29 [facility] Neurology Pre-Reg Neuro [facility] Procedures Procedure Code Date Perfomer Comments Source smoking/tobacco 14 07/23/2014 yes Medical cessation, Group patient education and counseling smoking/tobacco 14 03/14/2014 yes Medical cessation, Group patient education and counseling smoking/tobacco 14 02/20/2014 yes Medical cessation, Group patient education and counseling smoking/tobacco 14 02/18/2014 yes Medical cessation, Group patient education and counseling smoking/tobacco 14 12/03/2013 yes Medical cessation, Group patient education and counseling smoking/tobacco 14 11/26/2013 DONE Medical cessation, Group patient education and counseling Appendectomy; [id number] [facility] Neuro ORIF - Open [id number] [facility] Neuro reduction and internal fixation of fracture ORIF - Open [id number] [facility] reduction and Hospital internal fixation of fracture ORIF - Open [id number] [facility] [place] reduction and internal fixation of fracture Appendectomy; 20843 [facility] Rehab ORIF - Open [id number] [facility] Rehab reduction and internal fixation of fracture ORIF - Open [id number] [facility] reduction and Hospital internal fixation of fracture Appendectomy; [address] [facility]
--- OUTSIDE RECORDS SUMMARY | 2018-07-18 16:04 | XMS REPORT | CCD ---
:1945 Author Organization [facility] Care Team Providers Name Role Phone Pascual Brunner Consulting Provider Allergies, Adverse Reactions, Alerts Substance Reaction Status Bactrim Active Keflex Active nka Active Problem List Condition Effective Dates Status COPD Resolved Medications Medication Instructions Start Date End Date Status Robitussin-AC oral syrup 5 ml, Route: PO, Drug 09/11/2012 09/12/2012 Discontinued Form: SYRP, Dosing Weight 80.028, kg, Q4H, PRN Cough/Congestion, Start date: 09/11/12 11:36:00, Duration: 30 day, Stop date: 10/11/12 11:35:00 levofloxacin 500 mg oral 500 mg, 1 tab, PO, 09/11/2012 09/18/2012 Ordered tablet Daily, 7 tab, Substitution Allowed NS 1,000 mL 1,000 mL, Rate: 100 09/11/2012 09/12/2012 Discontinued ml/hr, Infuse over: 10 hr, Route: IV, Dosing Weight 80.028 kg, Total Volume: 1,000, Start date: 09/11/12 11:36:00, Duration: 30 day, Stop date: 10/11/12 11:35:00 Cipro 400 mg, 200 mL, Route: 09/11/2012 09/12/2012 Discontinued IVPB, Drug form: INJ, [id number], Dosing Weight 80.028, kg, Start date: 09/11/12 12:00:00, Duration: 30 day, Stop date: 10/11/12 0:00:00 DuoNeb inhalation solution 3 ml, Route: NEB, Drug 09/11/2012 09/12/2012 Discontinued Form: SOLN, Dosing Weight 80.028, kg, RQ4H, Start date: 09/11/12 15:00:00, Duration: 30 day, Stop date: 10/11/12 11:00:00 methylPREDNISolone SODium 40 mg, 1 mL, Route: 09/11/2012 09/12/2012 Discontinued SUCCinate IVP, Drug form: INJ, Q8H, Dosing Weight 80.028, kg, Priority: Routine, Start date: 09/11/12 12:00:00, Duration: 30 day, Stop date: 10/11/12 4:00:00 Sodium Chloride 0.9% IV 25 mL, Route: IV, 09/11/2012 09/12/2012 Discontinued Start date: 09/11/12 11:48:00, Duration: 30 day, Stop date: 10/11/12 11:47:00, PRN Line Flush BD Normal Saline Flush 10 mL, Route: IV, Drug 09/11/2012 09/12/2012 Discontinued Form: INJ, PRN, PRN Line Flush, Start date: 09/11/12 11:48:00, Duration: 30 day, Stop date: 10/11/12 11:47:00 predniSONE 20 mg oral tablet 20 mg, 1 tab, PO, BID, 09/11/2012 Ordered Substitution Allowed, TAB albuterol-ipratropium 3 ml, INHALATION, QID, 09/11/2012 Ordered 2.5-0.5 mg inhalation 30 ea, Substitution solution Allowed, Maintenance, SOLN Combivent inhalation aerosol 2 puff, INHALER, QID, 09/11/2012 Ordered with adapter 14 gm, Substitution Allowed, Maintenance predniSONE 20 mg oral tablet 20 mg, 1 tab, PO, BID, 09/12/2012 09/26/2012 Ordered 14 tab, Substitution Allowed, TAB DuoNeb inhalation solution 3 ml, INHALATION, Q4H, 09/12/2012 Ordered 120 ea, Substitution Allowed, Maintenance, SOLN Symbicort 160/4.5 inhalation 2 puff, INHALATION, 09/11/2012 Ordered aerosol with adapter BID, 10 gm, Substitution Allowed, Maintenance, AERO Ventolin HFA 90 mcg/inh 2 puff, INHALATION, 09/11/2012 Ordered inhalation aerosol with QID, 17 gm, adapter Substitution Allowed, Maintenance, AERO Vital Signs Most recent to oldest 1 2 3 [Reference Range]: Height 182.88 cm (09/11/2012 11:16:00) Temperature Oral 96.9 DegF 96.3 DegF 96.9 DegF [96.4-99.1 DegF] (09/12/2012 12:09:00) *LOW* (09/12/2012 04:36:00) (09/12/2012 07:55:00) Systolic Blood Pressure 128 mmHg 127 mmHg 129 mmHg [90-140 mmHg] (09/12/2012 12:09:00) (09/12/2012 07:55:00) (09/12/2012 04:36: 00) Diastolic Blood Pressure 68 mmHg 66 mmHg 63 mmHg [60-90 mmHg] (09/12/2012 12:09:00) (09/12/2012 07:55:00) (09/12/2012 04:36: 00) Respiratory Rate [14-20 18 BRMIN 18 BRMIN 18 BRMIN BRMIN] (09/12/2012 12:09:00) (09/12/2012 07:55:00) (09/12/2012 04:36:00) Peripheral Pulse Rate 61 bpm 91 bpm 57 bpm [60-100 bpm] (09/12/2012 12:09:00) (09/12/2012 07:55:00) *LOW* (09/12/2012 04:36:00) Weight 80.028 kg (09/11/2012 11:16:00) Results CHEMISTRY Most recent to oldest [Reference Range]: 1 2 Sodium Lvl [135-145 mEq/L] 143 mEq/L (09/11/2012 12:30:00) Potassium Lvl [3.5-5.1 mEq/L] 4.4 mEq/L (09/11/2012 12:30:00) Chloride Lvl [95-109 mEq/L] 106 mEq/L (09/11/2012 12:30:00) CO2 [24-32 mEq/L] 27 mEq/L (09/11/2012 12:30:00) AGAP [10.0-20.0 mEq/L] 14.4 mEq/L (09/11/2012 12:30:00) Creatinine Lvl [0.5-1.4 mg/dL] 1.0 mg/dL (09/11/2012 12:30:00) eGFR 78 mL/min/1.73m2 1 *NA* (09/11/2012 12:30:00) BUN [7-22 mg/dL] 15 mg/dL (09/11/2012 12:30:00) Glucose Lvl [70-99 mg/dL] 139 mg/dL 2 *HI* (09/11/2012 12:30:00) Calcium Lvl [8.5-10.5 mg/dL] 9.0 mg/dL (09/11/2012 12:30:00) 1Result Comment: The eGFR is calculated using the CKD-EPI formula. In most young , healthy individualsthe eGFR will be >90 mL/min/1.73m2. The eGFR declines with age. An eGFR of 60-89 may be normal in some populations, particularly the elderly, for whom the CKD-EPI formula has not been extensively validated. Use of the eGFR is not recommended in the following populations: Individuals with unstable creatinine concentrations, including patients and those with serious co-morbid conditions. Patients with extremes in muscle mass or diet. The data above are obtained from the National Kidney Disease Education Program ( NKDEP) which additionally recommends that when the eGFR is used in patients with extremes of body mass index for purposesof drug dosing, the eGFR should be multiplied by the estimated BMI.2Interpretive Data: Adult reference range values reflect the clinical guidelines of the [place] [employer].HEMATOLOGY Most recent to oldest [Reference 1 2 Range]: WBC [3.7-10.4 K/CMM] 16.7 K/CMM 18.4 K/CMM *HI* *HI* (09/12/2012 03:55:40) (09/11/2012 12:30:00) RBC [4.70-6.10 M/CMM] 4.11 M/CMM 4.53 M/CMM *LOW* *LOW* (09/12/2012 03:55:40) (09/11/2012 12:30:00) Hgb [14.0-18.0 g/dL] 13.3 g/dL 14.7 g/dL *LOW* (09/11/2012 12:30:00) (09/12/2012 03:55:40) Hct [42.0-54.0 %] 40.0 % 43.9 % *LOW* (09/11/2012 12:30:00) (09/12/2012 03:55:40) MCV [80.0-94.0 fL] 97.4 fL 96.9 fL *HI* *HI* (09/12/2012 03:55:40) (09/11/2012 12:30:00) MCH [27.0-31.0 pg] 32.4 pg 32.4 pg *HI* *HI* (09/12/2012 03:55:40) (09/11/2012 12:30:00) MCHC [32.0-36.0 g/dL] 33.3 g/dL 33.4 g/dL (09/12/2012 03:55:40) (09/11/2012 12:30:00) RDW [11.5-14.5 %] 15.0 % 15.1 % *HI* *HI* (09/12/2012 03:55:40) (09/11/2012 12:30:00) Platelet [133-450 K/CMM] 114 K/CMM 136 K/CMM *LOW* (09/11/2012 12:30:00) (09/12/2012 03:55:40) MPV [7.4-10.4 fL] 9.3 fL 9.5 fL (09/12/2012 03:55:40) (09/11/2012 12:30:00) Segs [45.0-75.0 %] 92.3 % 92.9 % *HI* *HI* (09/12/2012 03:55:40) (09/11/2012 12:30:00) Bands [0.0-11.0 %] 0.0 % (09/12/2012 03:55:40) Lymphocytes [20.0-40.0 %] 4.6 % 3.9 % *LOW* *LOW* (09/12/2012 03:55:40) (09/11/2012 12:30:00) Monocytes [2.0-12.0 %] 3.1 % 3.2 % (09/12/2012 03:55:40) (09/11/2012 12:30:00) Eosinophils [0.0-4.0 %] 0.0 % 0.0 % (09/12/2012 03:55:40) (09/11/2012 12:30:00) Basophils [0.0-1.0 %] 0.0 % 0.0 % (09/12/2012 03:55:40) (09/11/2012 12:30:00) Segs-Bands # [1.5-8.1 K/CMM] 15.4 K/CMM 17.1 K/CMM *HI* *HI* (09/12/2012 03:55:40) (09/11/2012 12:30:00) Lymphocytes # [1.0-5.5 K/CMM] 0.8 K/CMM 0.7 K/CMM *LOW* *LOW* (09/12/2012 03:55:40) (09/11/2012 12:30:00) Monocytes # [0.0-0.8 K/CMM] 0.5 K/CMM 0.6 K/CMM (09/12/2012 03:55:40) (09/11/2012 12:30:00) Eosinophils # [0.0-0.5 K/CMM] 0.0 K/CMM 0.0 K/CMM (09/12/2012 03:55:40) (09/11/2012 12:30:00) Basophils # [0.0-0.2 K/CMM] 0.0 K/CMM 0.0 K/CMM (09/12/2012 03:55:40) (09/11/2012 12:30:00) RBC Morph Normal (09/11/2012 12:30:00) Macrocyte [None Seen] 1+ *ABN* (09/12/2012 03:55:40) Tear Cell [None Seen] Slight *ABN* (09/12/2012 03:55:40) Elliptocyte [None Seen] Slight *ABN* (09/12/2012 03:55:40) Plt Morph Normal Normal (09/12/2012 03:55:40) (09/11/2012 12:30:00) Large Plt [None Seen] Slight *ABN* (09/12/2012 03:55:40) Procedures Procedures Date Related Diagnosis ORIF - Open reduction and internal fixation of fracture
--- OUTSIDE RECORDS SUMMARY | 2018-07-18 16:06 | XMS REPORT | Continuity of Care Document ---
:1945 Author Organization [facility] Care Team Providers Name Role Phone MD Villasenor Joshua Unavailable Unavailable Insurance Providers Payer name Policy type / Policy ID Covered libertarian ID Policy Michele Coverage type [place] [employer] (MEDICARE SUPPLEMENT) [place] [employer] (MEDICARE REPLACEMENT PPO) HUMANA (MEDICARE SUPPLEMENT) [place] [employer] (MEDICARE SUPPLEMENT) [place]: [employer] Encounters Encounter Performer Location Date Office Visit Ifeanyi Villasenor MD [facility] Nov 26, 2013 [place] Problems Problem Effective Dates Problem Status HYPOTHYROIDISM Nov 26, 2013 Active HYPOGONADISM Nov 26, 2013 Active SHOULDER PAIN, LEFT Nov 26, 2013 Active PERIPHERAL VASCULAR DISEASE Nov 26, 2013 Active OSTEOPOROSIS Nov 26, 2013 Active NEOPLASM, SKIN, UNCERTAIN BEHAVIOR Nov 26, 2013 Active COPD Nov 26, 2013 Active Procedures Date Description Comments Nov 26, 2013 smoking/tobacco cessation, patient education DONE and counseling Nov 26, 2013 smoking status Current every day smoker Nov 26, 2013 smoking/tobacco cessation, patient education yes and counseling Medications Medication Instructions Start Date Status SYMBICORT 160-4.5 MCG/ACT AERO Two puffs twice a day. Nov 26, 2013 Active ALENDRONATE SODIUM 70 MG TABS 1 po weekly Nov 26, 2013 Active SPIRIVA HANDIHALER 18 MCG CAPS Inhale one capsule daily Nov 26, 2013 Active ARMOUR THYROID 60 MG TABS 1 po qd Nov 26, 2013 Active CLOPIDOGREL BISULFATE 75 MG TABS 1 po qd Nov 26, 2013 Active FISH OIL 1000 MG CAPS 1 po qd Nov 26, 2013 Active VITAMIN D3 5000 UNIT CAPS 1 po qd Nov 26, 2013 Active TESTOSTERONE CYPIONATE OIL inject .5 mL every 10 days Nov 26, 2013 Active ALBUTEROL SULFATE NEBU use as needed Nov 26, 2013 Active Vital Signs Date Description Test Result Nov 26, 2013 blood pressure, systolic - 8480-6 BP SYSTOLIC 151 mm Hg Nov 26, 2013 blood pressure, diastolic - 8462-4 BP DIASTOLIC 75 mm Hg Nov 26, 2013 weight E&M - 3141-9 WEIGHT 167 lb Nov 26, 2013 temperature E&M TEMPERATURE 98.4 deg f Nov 26, 2013 respiratory rate E&M - 9279-1 RESP RATE 17 /min Nov 26, 2013 pulse rate E&M - 8867-4 PULSE RATE 75 /min Nov 26, 2013 height E&M - 8302-2 HEIGHT 72 in
--- OUTSIDE RECORDS SUMMARY | 2018-07-18 16:06 | XMS REPORT | Continuity of Care Document ---
:1945 Author Organization [facility] Care Team Providers Name Role Phone MD Jacklyn, Ifeanyi Unavailable Unavailable Insurance Providers Payer name Policy type / Policy ID Covered constitution party ID Policy Michele Coverage type [place]IC[place]: [...] Location Date Office Visit Ifeanyi Villasenor MD [facility] Feb 20, 2014 [place] Problems Problem Effective Dates Problem Status HYPOTHYROIDISM Nov 26, 2013 Active HYPOGONADISM Nov 26, 2013 Active SHOULDER PAIN, LEFT Nov 26, 2013 Inactive PERIPHERAL VASCULAR DISEASE Nov 26, 2013 Active OSTEOPOROSIS Nov 26, 2013 Active NEOPLASM, SKIN, UNCERTAIN BEHAVIOR Nov 26, 2013 Inactive COPD Nov 26, 2013 Active SUPERIOR GLENOID LABRUM LESIONS (SLAP) Nov 27, 2013 Inactive ROTATOR CUFF TEAR Nov 27, 2013 Inactive SEBORRHEIC KERATOSIS Dec 03, 2013 Inactive ERYSIPELAS Feb 18, 2014 Active Procedures Date Description Comments Nov 26, 2013 smoking/tobacco cessation, patient education DONE and counseling Nov 26, 2013 smoking status Current every day smoker Nov 26, 2013 smoking/tobacco cessation, patient education yes and counseling Dec 03, 2013 smoking status Current every day smoker Dec 03, 2013 smoking/tobacco cessation, patient education yes and counseling Feb 18, 2014 smoking status Current every day smoker Feb 18, 2014 smoking/tobacco cessation, patient education yes and counseling Feb 20, 2014 smoking status Current every day smoker Feb 20, 2014 smoking/tobacco cessation, patient education yes and counseling [...] use as needed Nov 26, 2013 Active DOXYCYCLINE HYCLATE 100 MG TABS 1 tablet twice daily for 10 days Feb 18, 2014 Active AUGMENTIN 875-125 MG TABS 1 tablet twice daily for 10 days Feb 20, 2014 Active Vital Signs Date Description Test Result [...] height E&M - 8302-2 HEIGHT 72 in Dec 03, 2013 height E&M - 8302-2 HEIGHT 72 in Dec 03, 2013 weight E&M - 3141-9 WEIGHT 167 lb Dec 03, 2013 temperature E&M TEMPERATURE 98.3 deg f Dec 03, 2013 respiratory rate E&M - 9279-1 RESP RATE 17 /min Dec 03, 2013 pulse rate E&M - 8867-4 PULSE RATE 67 /min Dec 03, 2013 blood pressure, systolic - 8480-6 BP SYSTOLIC 157 mm Hg Dec 03, 2013 blood pressure, diastolic - 8462-4 BP DIASTOLIC 76 mm Hg Feb 18, 2014 height E&M - 8302-2 HEIGHT 72 in Feb 18, 2014 weight E&M - 3141-9 WEIGHT 167 lb Feb 18, 2014 temperature E&M TEMPERATURE 98.3 deg f Feb 18, 2014 respiratory rate E&M - 9279-1 RESP RATE 16 /min Feb 18, 2014 pulse rate E&M - 8867-4 PULSE RATE 74 /min Feb 18, 2014 blood pressure, systolic - 8480-6 BP SYSTOLIC 149 mm Hg Feb 18, 2014 blood pressure, diastolic - 8462-4 BP DIASTOLIC 78 mm Hg Feb 20, 2014 height E&M - 8302-2 HEIGHT 72 in Feb 20, 2014 weight E&M - 3141-9 WEIGHT 98.3 lb Feb 20, 2014 temperature E&M TEMPERATURE 98.3 deg f Feb 20, 2014 respiratory rate E&M - 9279-1 RESP RATE 17 /min Feb 20, 2014 pulse rate E&M - 8867-4 PULSE RATE 102 /min Feb 20, 2014 blood pressure, systolic - 8480-6 BP SYSTOLIC 143 mm Hg Feb 20, 2014 blood pressure, diastolic - 8462-4 BP DIASTOLIC 83 mm Hg
--- OUTSIDE RECORDS SUMMARY | 2018-07-18 16:06 | XMS REPORT | Continuity of Care Document ---
:1945 Author Organization [facility] Care Team Providers Name Role Phone MD Jacklyn, Ifeanyi Unavailable Unavailable Insurance Providers Payer name Policy type / Policy ID Covered democrat ID Policy Michele Coverage type MEDIC[place]: [...] Location Date Office Visit Ifeanyi Villasenor MD [facility] Dec 03, 2013 [place] Problems Problem Effective Dates Problem Status HYPOTHYROIDISM Nov 26, 2013 Active HYPOGONADISM Nov 26, 2013 Active SHOULDER PAIN, LEFT Nov 26, 2013 Active PERIPHERAL VASCULAR DISEASE Nov 26, 2013 Active OSTEOPOROSIS Nov 26, 2013 Active NEOPLASM, SKIN, UNCERTAIN BEHAVIOR Nov 26, 2013 Active COPD Nov 26, 2013 Active SUPERIOR GLENOID LABRUM LESIONS (SLAP) Nov 27, 2013 Active ROTATOR CUFF TEAR Nov 27, 2013 Active SEBORRHEIC KERATOSIS Dec 03, 2013 Active Procedures Date Description Comments Nov [...]
--- OUTSIDE RECORDS SUMMARY | 2018-07-18 16:06 | XMS REPORT | Continuity of Care Document ---
:1945 Author Organization [facility] Care Team Providers Name Role Phone MD Jacklyn, Ifeanyi Unavailable Unavailable Insurance Providers Payer name Policy type / Policy ID Covered constitution party ID Policy Michele Coverage type [place] [employer] (MEDICARE SUPPLEMENT) [place]: [employer] (MEDICARE REPLACEMENT PPO) HUMANA (MEDICARE SUPPLEMENT) MED[place]: [employer] HUMANA (MEDICARE SUPPLEMENT) MEDIC[place]: [employer] Encounters Encounter Performer Location Date Lab Report Ifeanyi Villasenor MD [facility] - Nov 28, 2013 [place] Problems Problem Effective Dates Problem Status HYPOTHYROIDISM [...]
--- OUTSIDE RECORDS SUMMARY | 2018-07-18 16:07 | XMS REPORT | Continuity of Care Document ---
:1945 Author Organization [facility] Care Team Providers Name Role [...] Location Date Office Visit Ifeanyi Villasenor MD [facility] July 23, 2014 [place] Allergies, Adverse Reactions, Alerts Type Substance Reaction Status Drug allergy KEFLEX Active Problems Problem Effective Dates Problem Status HYPOTHYROIDISM [...] 03, 2013 Inactive ERYSIPELAS Feb 18, 2014 Inactive RASH AND OTHER NONSPECIFIC SKIN ERUPTION Mar 14, 2014 Inactive LOSS OF WEIGHT July 23, 2014 Active CAROTID BRUIT, RIGHT July 23, 2014 Active Procedures Date Description Comments Nov [...] smoking/tobacco cessation, patient education yes and counseling Mar 14, 2014 smoking status Current every day smoker Mar 14, 2014 smoking/tobacco cessation, patient education yes and counseling July 23, 2014 smoking status Current every day smoker July 23, 2014 smoking/tobacco cessation, patient education yes and [...] 1 po qd Nov 26, 2013 Active ALBUTEROL SULFATE NEBU use as needed Nov 26, 2013 Active DOXYCYCLINE HYCLATE 100 MG TABS 1 tablet twice daily for Feb 18, 2014 Inactive days AUGMENTIN 875-125 MG TABS 1 tablet twice daily for Feb 20, 2014 Inactive days AUGMENTIN 875-125 MG TABS 1 tablet twice daily for 14 Mar 14, 2014 Inactive days PREDNISONE 10 MG TABS 4 po daily on days 1-4, 3 po Mar 14, 2014 Inactive daily on days 5-8, 2 po daily on days 9-12, 1 po daily on days - TESTOSTERONE CYPIONATE OIL inject .5 mL every 10 days Nov 26, 2013 Inactive Vital Signs Date Description Test Result Nov [...] - 8462-4 BP DIASTOLIC 83 mm Hg Mar 14, 2014 height E&M - 8302-2 HEIGHT 72 in Mar 14, 2014 temperature E&M TEMPERATURE 97 deg f Mar 14, 2014 respiratory rate E&M - 9279-1 RESP RATE 17 /min Mar 14, 2014 pulse rate E&M - 8867-4 PULSE RATE 17 /min Mar 14, 2014 blood pressure, systolic - 8480-6 BP SYSTOLIC 172 mm Hg Mar 14, 2014 blood pressure, diastolic - 8462-4 BP DIASTOLIC 80 mm Hg July 23, 2014 height E&M - 8302-2 HEIGHT 72 in July 23, 2014 weight E&M - 3141-9 WEIGHT 160 lb July 23, 2014 blood pressure, systolic - 8480-6 BP SYSTOLIC 157 mm Hg July 23, 2014 blood pressure, diastolic - 8462-4 BP DIASTOLIC 81 mm Hg July 23, 2014 temperature E&M TEMPERATURE 98.5 deg f July 23, 2014 respiratory rate E&M - 9279-1 RESP RATE 17 /min July 23, 2014 pulse rate E&M - 8867-4 PULSE RATE 82 /min
--- OUTSIDE RECORDS SUMMARY | 2018-07-18 16:07 | XMS REPORT ---
:1945 Author Organization [employer] Care Team Providers Name Role Phone NELL AHN Provider Role Unavailable Allergies, Adverse Reactions, Alerts Substance Reaction Event Type N.K.D.A. Info Not Available Non Drug Allergy Problems Problem Type Condition Code Onset Dates Condition Status Assessment Cellulitis of right lower limb L03.115 Active Problem Cellulitis of right lower limb L03.115 Active Medications Medication Code System Code Instructions Start End Date Status Dosage Date clopidogrel [facility] 30300828161 75 mg orally Active 1 tab(s) once a day potassium NDC 0 Oral Active 1 tab prednisolone ND 26149191313 15 mg/5 mL Active 5 mL orally 2 times a day levofloxacin ND 37242531536 250 mg orally Active 1 tab(s) every 24 hours Furosemide NDC 0 Oral Active 1 tab Vital Signs Date/Time: May 31, 2016 Cardiac Monitoring Heart Rate 79 /min Respiratory Rate 16 /min Temperature 97.8 F Weight 163 lbs Height 6,0 in Blood Pressure Diastolic 84 mm Hg Blood Pressure Systolic 130 mm Hg BMI 31.83 Index Results No Known Results Summary Purpose [employer] Submission
--- OUTSIDE RECORDS SUMMARY | 2018-07-18 16:07 | XMS REPORT | Continuity of Care Document ---
:1945 Author Organization [facility] Care Team Providers Name Role Phone MD Villasenor Joshua Unavailable Unavailable Insurance Providers Payer name Policy type / Policy ID Covered green party ID Policy Michele Coverage type MEDICARE [...] Location Date Office Visit Ifeanyi Villasenor MD [facility] July 23, 2014 [place] Allergies, Adverse Reactions, [...] CAROTID BRUIT, RIGHT July 23, 2014 Active TOBACCO ABUSE July 25, 2014 Active Procedures Date Description Comments Nov [...] TABS 1 tablet twice daily for 10 Feb 20, 2014 Inactive days AUGMENTIN 875-125 MG TABS 1 tablet twice daily for 14 Mar 14, 2014 Inactive days PREDNISONE 10 MG TABS 4 po daily on days 1-4, 3 po Mar 14, 2014 Inactive daily on days 5-8, 2 po daily on days 9-12, 1 po daily on days 13-16 TESTOSTERONE CYPIONATE OIL inject .5 mL every [...]
--- OUTSIDE RECORDS SUMMARY | 2018-07-18 16:07 | XMS REPORT | Continuity of Care Document ---
:1945 Author Organization [facility] Care Team Providers Name Role Phone MD Villasenor Joshua Unavailable Unavailable Insurance Providers Payer name Policy type / Policy ID Covered republican ID Policy Michele Coverage type MEDICARE [place]: [...] Location Date Office Visit Ifeanyi Villasenor MD [facility] Mar 14, 2014 [place] Allergies, Adverse Reactions, Alerts Type [...] OTHER NONSPECIFIC SKIN ERUPTION Mar 14, 2014 Active Procedures Date Description Comments Nov [...] daily for Feb 20, 2014 Inactive days PREDNISONE 10 MG TABS 4 po daily on days 1-4, 3 po Mar 14, 2014 Active daily on days 5-8, 2 po daily on days 9-12, 1 po daily on days 13-16 AUGMENTIN 875-125 MG TABS 1 tablet twice daily for Mar 14, 2014 Active days Vital Signs Date Description Test Result Nov [...]
--- OUTSIDE RECORDS SUMMARY | 2018-07-18 16:07 | XMS REPORT | Continuity of Care Document ---
:1945 Author Organization [facility] Care Team Providers Name Role Phone [...] Location Date Office Visit Ifeanyi Villasenor MD [facility] Feb 18, 2014 [place] Problems Problem Effective Dates Problem [...] for 10 days Feb 18, 2014 Active Vital Signs Date Description Test [...]
[2018-07-18 16:38] LABS: Arterial Blood Carboxyhemoglob 11.4 % (0-1.5); Blood Gas Oxyhemoglobin 78.8 % (94-97)
--- NOTE | 2018-07-18 17:07 | RAD REPORT ---
EXAM DESCRIPTION: RAD - Chest Single View - 07/18/2018 4:52 pm CLINICAL HISTORY: Cough, shortness of breath COMPARISON: January 2018 TECHNIQUE: AP portable chest image was obtained 1647 hours . FINDINGS: No focal lung parenchymal process. Interstitial pattern is similar to comparison. Heart an d vasculature are normal. No measurable pleural effusion and no pneumothorax. No acute bony abnormali ty seen. No acute aortic findings suspected. IMPRESSION: No acute cardiopulmonary process. No significant change from comparison.
[2018-07-18 17:44] LABS: Absolute Lymphocytes (CBC) 0.8 K/uL (0.7-4.9); Absolute Monocytes 0.6 K/uL (0.1-1.3); Absolute Neutrophil 8.2 K/uL (1.8-8.0); Basophils % 0.2 % (0-1.3); Eosinophils % 0.3 % (0-4.4); Hematocrit 52.1 % (39.6-49.0); Lymphocytes % 7.8 % (15.3-44.8); MPV 7.7 fL (7.6-11.3); Monocytes % 6.4 % (3.3-12.3); RBC Red Blood Cell Count 5.04 M/uL (4.33-5.43)
[2018-07-18 17:52] LABS: Protime INR 0.83
[2018-07-18] MEDS ORDERED: ALBUTEROL 2.5 MG/3 ML NEB SOL ONE (17:59)
[2018-07-18] MEDS ORDERED: FAMOTIDINE 20 MG TAB ONE (18:00)
[2018-07-18] MEDS ORDERED: predniSONE 20 MG TAB ONE (18:00)
[2018-07-18 18:06] LABS: ALT/SGPT 65 U/L (12-78); AST/SGOT 69 U/L (15-37); Albumin 3.8 g/dL (3.4-5.0); Alkaline Phosphatase 115 U/L (45-117); BUN Blood Urea Nitrogen 7 mg/dL (7-18); Bicarbonate 29 mmol/L (21-32); Bilirubin Direct 0.2 mg/dL (0-0.2); Bilirubin Total 0.4 mg/dL (0.2-1.0); CKMB Creatine Kinase MB 1.9 ng/mL (0.3-3.6); Creatine Phosphokinase 67 U/L (39-308); Glucose Level 85 mg/dL (74-106); Lipase 161 U/L (73-393); Potassium 4.3 mmol/L (3.5-5.1); Protein, Total 7.9 g/dL (6.4-8.2); Sodium Level 133 mmol/L (136-145); Troponin (Emerg Dept Use Only) < 0.02 ng/mL (0.0-0.045)
--- NOTE | 2018-07-18 18:09 | EDPHYS ---
Physician Documentation [facility] Name: Bossman Gooden Age: 73 yrs Sex: Male : 1945 Arrival Date: 07/18/2018 Time: 15:56 Bed 17 Private MD: ED Physician Yoni García HPI: 07/18 17:17 This 73 yrs old Male presents to ER via EMS with complaints of Shortness Of snw Breath. 17:17 The patient has shortness of breath at rest. Onset: The symptoms/episode began/occurred snw suddenly, 5 day(s) ago, and became worse 4 day(s) ago, and became persistent. Duration: The symptoms are continuous, but are steadily getting better. The patient's shortness of breath is aggravated by coughing, light activity. Associated signs and symptoms: Pertinent positives: chills. Severity of symptoms: At their worst the symptoms were moderate severe. It is unknown whether or not the patient has had similar symptoms in the past. 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 + COPD. Historical: - Allergies: 16:00 Keflex; sg 16:00 Sulfa (Sulfonamide Antibiotics); sg - PMHx: 16:00 Asthma; CAD; COPD; EDEMA; Emphysema; ESSENTIAL TREMORS; High Cholesterol; Hypertension; sg meningitis; Pneumonia; - Immunization history:: Adult Immunizations up to date. - Social history:: Smoking status: Patient uses tobacco products. - Ebola Screening: : Patient negative for fever greater than or equal to 101.5 degrees Fahrenheit, and additional compatible Ebola Virus Disease symptoms Patient denies exposure to infectious person Patient denies travel to an Ebola-affected area in the 21 days before illness onset No symptoms or risks identified at this time. ROS: 17:15 Constitutional: Negative for fever, chills, and weight loss, Eyes: Negative for injury, snw pain, redness, and discharge, ENT: Negative for injury, pain, and discharge, Neck: Negative for injury, pain, and swelling, Cardiovascular: Negative for chest pain, palpitations, and edema, Abdomen/GI: Negative for abdominal pain, nausea, vomiting, diarrhea, and constipation, Back: Negative for injury and pain, : Negative for injury, bleeding, discharge, and swelling, MS/Extremity: Negative for injury and deformity, Skin: Negative for injury, rash, and discoloration, Neuro: Negative for headache, weakness, numbness, tingling, and seizure. 17:15 Respiratory: Positive for cough, dyspnea on exertion, orthopnea, pleurisy, shortness of breath, wheezing, productive of toothpaste like, egg colored sputum. Exam: 17:13 Cardiovascular: Regular rate and rhythm with a normal S1 and S2. No gallops, murmurs, snw or rubs. Normal PMI, no JVD. No pulse deficits. 17:13 Abdomen/GI: Soft, non-tender, with normal bowel sounds. No distension or tympany. No guarding or rebound. No evidence of tenderness throughout. Back: No spinal tenderness. No costovertebral tenderness. Full range of motion. Skin: Warm, dry with normal turgor. Normal color with no rashes, no lesions, and no evidence of cellulitis. MS/ Extremity: Pulses equal, no cyanosis. Neurovascular intact. Full, normal range of motion. Neuro: Awake and alert, GCS 15, oriented to person, place, time, and situation. Cranial nerves II-XII grossly intact. Motor strength 5/5 in all extremities. Sensory grossly intact. Cerebellar exam normal. Normal gait. Psych: Awake, alert, with orientation to person, place and time. Behavior, mood, and affect are within normal limits. 17:13 Head/Face: Normocephalic, atraumatic. Eyes: Pupils equal round and reactive to light, extra-ocular motions intact. Lids and lashes normal. Conjunctiva and sclera are non-icteric and not injected. Cornea within normal limits. Periorbital areas with no swelling, redness, or edema. ENT: Nares patent. No nasal discharge, no septal abnormalities noted. Tympanic membranes are normal to left, tm with probable perf to right with slight blood noted in ear canal, and external auditory canals are clear. Oropharynx with redness, no swelling, or masses, exudates, or evidence of obstruction, uvula midline. Mucous membranes moist. Neck: Trachea midline, no thyromegaly or masses palpated, and no cervical lymphadenopathy. Supple, full range of motion without nuchal rigidity, or vertebral point tenderness. No Meningismus. 17:13 Constitutional: The patient appears alert, awake, anxious, uncomfortable. 17:13 Chest/axilla: Inspection: normal, Palpation: tenderness, that is moderate, that is severe, of the left breast, only with cough. 17:13 Respiratory: mild respiratory distress is noted, Respirations: shallow respirations, tachypnea, Breath sounds: bronchial sounds, + upper airway congestion. wheezing: Vital Signs: 16:00 BP 132 / 77; Pulse 89; Resp 19; Temp 98.3; Pulse Ox 94% on R/A; Weight 79.38 kg; Pain sg 0/10; 19:30 BP 140 / 80; Pulse 90; Resp 21; Temp 98.5(O); Pulse Ox 93% on 2 lpm NC; Pain 0/10; lp1 20:30 BP 139 / 68; Pulse 85; Resp 22; Pulse Ox 95% on 2 lpm NC; lp1 21:30 BP 139 / 73; Pulse 85; Resp 22; Pulse Ox 94% on 2 lpm NC; Pain 0/10; lp1 MDM: 16:23 Patient medically screened. snw 18:09 Data reviewed: vital signs, nurses notes. Data interpreted: Pulse oximetry: on room air snw is 89 %. Plan: will initiate a nebulizer treatment. Counseling: I had a detailed discussion with the patient and/or guardian regarding: the historical points, exam findings, and any diagnostic results supporting the discharge/admit diagnosis, lab results, radiology results, the need for further work-up and treatment in the hospital. 18:09 Physician consultation: Stephanie Rios MD was called at 18:10, regarding admission, to [facility] the telemetry unit. 07/18 16:23 Order name: ABG; Complete Time: 17:05 snw 07/18 16:47 Order name: Sputum Culture snw 07/18 16:47 Order name: Basic Metabolic Panel snw 07/18 16:47 Order name: Blood Culture Adult (2) snw 07/18 16:47 Order name: CBC with Diff snw 07/18 16:47 Order name: Ckmb; Complete Time: 18:10 snw 07/18 16:47 Order name: CPK; Complete Time: 18:10 snw 07/18 16:47 Order name: Lactate; Complete Time: 18:04 snw 07/18 16:47 Order name: LFT's; Complete Time: 18:10 w 07/18 16:47 Order name: Lipase; Complete Time: 18:10 w 07/18 16:47 Order name: Procalcitonin [facility] 07/18 16:47 Order name: Protime (+inr); Complete Time: 18:10 w 07/18 16:47 Order name: Ptt, Activated; Complete Time: 18:10 w 07/18 16:47 Order name: Troponin (emerg Dept Use Only); Complete Time: 18:10 w 07/18 16:23 Order name: Chest Single View XRAY; Complete Time: 17:09 [facility] 07/18 16:48 Order name: Sputum Culture [facility] 07/18 16:48 Order name: Basic Metabolic Panel; Complete Time: 18:10 [facility] 07/18 17:14 Order name: Urine Dipstick--Ancillary (enter results) 07/18 17:53 Order name: CBC Smear Scan [facility] 07/18 18:19 Order name: ETOH Level [facility] 07/18 18:19 Order name: B12 [facility] 07/18 18:19 Order name: Folic Acid,Serum (folate) [facility] 07/18 18:34 Order name: Influenza Screen (A [facility] 07/18 20:32 Order name: Lactate Sepsis 2 HR Follow-up [facility] 07/18 16:47 Order name: Accucheck; Complete Time: 17:35 w 07/18 16:47 Order name: Cardiac monitoring; Complete Time: 17:36 [facility] 07/18 16:47 Order name: EKG - Nurse/Tech; Complete Time: 19:10 [facility] 07/18 16:47 Order name: IV Saline Lock - Large Bore; Complete Time: 17:26 w 07/18 16:47 Order name: Labs collected and sent; Complete Time: 17:26 w 07/18 16:47 Order name: O2 Per Protocol; Complete Time: 17:48 w 07/18 16:47 Order name: O2 Sat Monitoring; Complete Time: 17:48 [facility] 07/18 16:47 Order name: Urine Dipstick-Ancillary (obtain specimen); Complete Time: 17:36 [facility] 07/18 18:03 Order name: EKG Electrocardiogram; Complete Time: 18:03 [facility] 07/18 18:29 Order name: CONS Physician Consult [facility] 07/18 18:30 Order name: Physical Therapy Consult [facility] 07/18 18:31 Order name: Heart Healthy [facility] Administered Medications: 17:47 Drug: Albuterol 2.5 mg Route: Inhalation; sg 18:20 Drug: NS 0.9% 1000 ml Route: IV; Rate: 1 bolus; Site: right antecubital; sg 20:00 Follow up: IV Status: Completed infusion; IV Intake: 1000ml lp1 18:41 Not Given (Physician Discretion): Cyanocobalamin 1000 mcg IM once sg 18:41 Drug: SOLU-Medrol 125 mg {Note: medication ordered by at bedside.} Route: IVP; sg Site: right antecubital; 19:59 Follow up: Response: No adverse reaction lp1 18:42 Not Given (Other Intervention Used): predniSONE 40 mg PO once sg 18:42 Not Given (Other Intervention Used): Pepcid 20 mg PO once sg Point of Care Testing: Blood Glucose: 17:35 Blood Glucose: 62 mg/dL; mh5 17:55 Blood Glucose: 79 mg/dL; sg Ranges: Critical Glucose Levels:Adult <50 mg/dl or >400 mg/dl <40 mg/dl or >180 mg/dl Disposition: 07/19 06:50 Co-signature as Attending Physician, Yoni García MD I agree with the assessment and kdr plan of care. Disposition: 07/18/18 18:08 Hospitalization ordered by Stephanie Rios for Inpatient Admission. Preliminary diagnosis are Chronic obstructive pulmonary disease with (acute) exacerbation, Dehydration, Malaise and fatigue. - Bed requested for Telemetry/MedSurg (Inpatient). - Status is Inpatient Admission. lp1 - Condition is Stable. - Problem is an acute exacerbation. - Symptoms have worsened. UTI on Admission? No Signatures: Dispatcher [employer] [facility] Sha Donaldson RN YULISA sg Yoni García MD MD kdr Therrien, Shelly, DECKHAND OYSTER DREDGE-C DECKHAND OYSTER DREDGE-Csnw Megan Villafuerte RN RN Viola Go RN RN lp1 Corrections: (The following items were deleted from the chart) 07/18 17:17 17:13 Head/Face: Normocephalic, atraumatic. Eyes: Pupils equal round and reactive to snw light, extra-ocular motions intact. Lids and lashes normal. Conjunctiva and sclera are non-icteric and not injected. Cornea within normal limits. Periorbital areas with no swelling, redness, or edema. ENT: Nares patent. No nasal discharge, no septal abnormalities noted. Tympanic membranes are normal and external auditory canals are clear. Oropharynx with no redness, swelling, or masses, exudates, or evidence of obstruction, uvula midline. Mucous membranes moist. Neck: Trachea midline, no thyromegaly or masses palpated, and no cervical lymphadenopathy. Supple, full range of motion without nuchal rigidity, or vertebral point tenderness. No Meningismus. snw 20:30 18:08 Hospitalization Ordered by Stephanie Rios MD for Inpatient Admission. Preliminary bb diagnosis is Chronic obstructive pulmonary disease with (acute) exacerbation; Dehydration; Malaise and fatigue. Bed requested for Telemetry/MedSurg (Inpatient). Status is Inpatient Admission. Condition is Stable. Problem is an acute exacerbation. Symptoms have worsened. UTI on Admission? No. snw 21:44 20:30 07/18/2018 18:08 Hospitalization Ordered by Stephanie Rios MD for Inpatient lp1 Admission. Preliminary diagnosis is Chronic obstructive pulmonary disease with (acute) exacerbation; Dehydration; Malaise and fatigue. Bed requested for Telemetry/MedSurg (Inpatient). Status is Inpatient Admission. Condition is Stable. Problem is an acute exacerbation. Symptoms have worsened. UTI on Admission? No. bb
--- NOTE | 2018-07-18 18:09 | ER ---
Nurse's Notes 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 Transition of care: patient was not received from another setting of care. Onset of symptoms was July 18, 2018. Risk Assessment: Do you want to hurt yourself or someone else? Patient reports no desire to harm self or others. Initial Sepsis Screen: Does the patient meet any 2 criteria? No. Patient's initial sepsis screen is negative. Does the patient have a suspected source of infection? Yes: Productive cough/pneumonia. Care prior to arrival: Glucose check: 98. 15:56 Method Of Arrival: EMS: [facility] 15:56 Acuity: GUANACO 3 sg Triage Assessment: 16:01 General: Appears in no apparent distress. well groomed, well developed, well nourished, sg Behavior is calm, cooperative, appropriate for age. Respiratory: Reports shortness of breath on exertion cough that is productive, pain with cough Pain is 8 out of 10 on a pain scale. Respiratory effort is even, unlabored, Respiratory pattern is regular, tachypnea Onset: The symptoms/episode began/occurred gradually, the patient has mild shortness of breath. Historical: - Allergies: 16:00 Keflex; sg 16:00 Sulfa (Sulfonamide Antibiotics); sg - PMHx: 16:00 Asthma; CAD; COPD; EDEMA; Emphysema; ESSENTIAL TREMORS; High Cholesterol; Hypertension; sg meningitis; Pneumonia; - Immunization history:: Adult Immunizations up to date. - Social history:: Smoking status: Patient uses tobacco products. - Ebola Screening: : Patient negative for fever greater than or equal to 101.5 degrees Fahrenheit, and additional compatible Ebola Virus Disease symptoms Patient denies exposure to infectious person Patient denies travel to an Ebola-affected area in the 21 days before illness onset No symptoms or risks identified at this time. Screenin:58 Abuse screen: Denies threats or abuse. Denies injuries from another. Nutritional lp1 screening: No deficits noted. Tuberculosis screening: No symptoms or risk factors identified. Fall Risk None identified. Assessment: 16:35 General: Appears in no apparent distress. well groomed, well developed, well nourished, sg Behavior is calm, cooperative, appropriate for age. 17:53 Reassessment: pt provided with pillow and educated on splinting technique while sg coughing to improve comfort, pt reports that is working better at this time. 19:30 Reassessment: Patient appears in no apparent distress at this time. General: Behavior lp1 is calm, cooperative. Neuro: Level of Consciousness is awake, alert, obeys commands, Oriented to person, place, situation. Cardiovascular: Patient's skin is warm and dry. Rhythm is sinus rhythm. Respiratory: Airway is patent Respiratory effort is even, Respiratory pattern is regular, symmetrical, Breath sounds are coarse bilaterally. Parent/caregiver reports the patient having shortness of breath cough that is productive. GI: Abdomen is flat. : No signs and/or symptoms were reported regarding the genitourinary system. EENT: No signs and/or symptoms were reported regarding the EENT system. Derm: Skin is intact, Skin is dry, Skin is normal. Musculoskeletal: No deficits noted. 21:00 Reassessment: Patient appears in no apparent distress at this time. Patient and/or lp1 family updated on plan of care and expected duration. Pain level reassessed. Patient resting, eyes closed, respirations unlabored. 21:13 Reassessment: report given to Isabella MÁRQUEZ for room 217. bb Vital Signs: 16:00 BP 132 / 77; Pulse 89; Resp 19; Temp 98.3; Pulse Ox 94% on R/A; Weight 79.38 kg; Pain sg 0/10; 19:30 BP 140 / 80; Pulse 90; Resp 21; Temp 98.5(O); Pulse Ox 93% on 2 lpm NC; Pain 0/10; lp1 20:30 BP 139 / 68; Pulse 85; Resp 22; Pulse Ox 95% on 2 lpm NC; lp1 21:30 BP 139 / 73; Pulse 85; Resp 22; Pulse Ox 94% on 2 lpm NC; Pain 0/10; lp1 ED Course: 15:50 Patient has correct armband on for positive identification. Bed in low position. Side sg rails up X2. conveyor monitor on. Pulse ox on. NIBP on. Head of bed elevated. 15:56 Patient arrived in ED. sg 15:59 Triage completed. sg 15:59 Arm band placed on. sg 16:03 Sha Donaldson, RN is Primary Nurse. sg 16:22 Lydia Bedolla F[facility]-C [facility]. snw 16:22 Yoni García MD is Attending Physician. snw 16:51 Assisted with urinal. pt able to stand at bedside with urinal, no assistance required sg with urinal, pt back in stretcher, no issues reported. 16:53 Chest Single View XRAY In Process Unspecified. EDMS 17:15 Initial lab(s) drawn, by sc, sent to lab. First set of blood cultures drawn by sc, ABG [facility] drawn. by RT staff, SPUTUM CULTURE. 17:23 Inserted saline lock: 22 gauge in right antecubital area, using aseptic technique. 5 Blood collected. 17:25 Basic Metabolic Panel Sent. [facility] 17:25 Sputum Culture Sent. [facility] 17:25 Basic Metabolic Panel Sent. [facility] 17:25 Blood Culture Adult (2) Sent. [facility] 17:25 CBC with Diff Sent. [facility] 17:25 Ckmb Sent. [facility] 17:25 CPK Sent. [facility] 17:25 Lactate Sent. [facility] 17:25 LFT's Sent. [facility] 17:25 Lipase Sent. [facility] 17:25 Procalcitonin Sent. [facility] 17:25 Protime (+inr) Sent. [facility] 17:25 Ptt, Activated Sent. [facility] 17:25 Troponin (emerg Dept Use Only) Sent. [facility] 17:30 Second set of blood cultures drawn by sc. [facility] 17:32 Diet: Patient given a regular meal tray. Patient given snack. Patient given juice. sg Patient given water. Tolerated well. 17:36 Urine Dipstick--Ancillary (enter results) Sent. [facility] 17:36 Sputum Culture Sent. 5 17:56 EKG done, by engineering technologist. reviewed by Lydia RODRÍGUEZ. 3 18:07 Stephanie Rios MD is Hospitalizing Provider. snw 19:58 No provider procedures requiring assistance completed. Patient admitted, IV remains in lp1 place. Administered Medications: 17:47 Drug: Albuterol 2.5 mg Route: Inhalation; sg 18:20 Drug: NS 0.9% 1000 ml Route: IV; Rate: 1 bolus; Site: right antecubital; sg 20:00 Follow up: IV Status: Completed infusion; IV Intake: 1000ml lp1 18:41 Not Given (Physician Discretion): Cyanocobalamin 1000 mcg IM once sg 18:41 Drug: SOLU-Medrol 125 mg {Note: medication ordered by at bedside.} Route: IVP; sg Site: right antecubital; 19:59 Follow up: Response: No adverse reaction lp1 18:42 Not Given (Other Intervention Used): predniSONE 40 mg PO once sg 18:42 Not Given (Other Intervention Used): Pepcid 20 mg PO once sg Point of Care Testing: Blood Glucose: 17:35 Blood Glucose: 62 mg/dL; mh5 17:55 Blood Glucose: 79 mg/dL; sg Ranges: Intake: 20:00 IV: 1000ml; Total: 1000ml. lp1 Outcome: 18:08 Decision to Hospitalize by Provider. snw 19:58 Condition: stable lp1 19:58 Instructed on the need for admit. 21:44 Admitted to Med/surg accompanied by tech, via wheelchair, room 217, with oxygen, with lp1 chart. 21:44 Patient left the ED. lp1 Signatures: Dispatcher [employer] EDMS Sha Donaldson RN RN sg Lydia Bedolla, KEYBOARD INSTRUMENT TUNER-C KEYBOARD INSTRUMENT TUNER-Jesusw Megan Villafuerte RN RN bb Pena, Laura, RN RN 1 Anastacia N[place] 5 Denise Patten 3 Corrections: (The following items were deleted from the chart) 18:42 17:46 Pepcid 20 mg PO sg sg 18:42 17:46 predniSONE 40 mg PO sg sg
[2018-07-18] MEDS ORDERED: NA CHLORIDE 0.9% 1,000 ML ONE (18:13)
[2018-07-18] MEDS ORDERED: LORazepam 2 MG/ML VIAL IV PRN (18:29)
[2018-07-18] MEDS ORDERED: chlordiazePOXIDE HCl 5 MG CAP PO PRN (18:29)
[2018-07-18] MEDS ORDERED: ALBUTEROL 2.5 MG/3 ML NEB SOL NEB PRN (18:29)
[2018-07-18] MEDS ORDERED: IPRATROPIUM BROM 0.5MG/2.5ML NEB PRN (18:29)
[2018-07-18 18:33] LABS: Urine Blood NEGATIVE (NEG); Urine Glucose NEGATIVE (NEG); Urine Protein NEGATIVE (NEG); Urine Specific Gravity <1.005 (1.005-1.030); Urine pH 5.5 (5.0-7.0)
--- NOTE | 2018-07-18 18:39 | P.HP ---
Certification for Inpatient Patient admitted to: Observation With expected LOS: <2 Midnights Patient will require the following post-hospital care: None Practitioner: I am a practitioner with admitting privileges, knowledge of patient current condition, hospital course, and medical plan of care. Services: Services provided to patient in accordance with Admission requirements found in Title 42 Section 412.3 of the Code of Federal Regulations Patient History Date of Service: 07/18/18 Reason for admission: Coughing and SOB History of Present Illness: The 73-year-old male with significant past medical history of CAD, COPD, alcohol abuse, tobacco abuse, who presented to the ED complaining of having some shortness of breath, chills, and coughing spells. 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 Cough is nonproductive at this time. Patient has inhalers at home which she did try using however did not have any improvement with that. Patient denies having any fever chills nausea vomiting chest pain or any other associated symptoms. Patient positive for alcohol and positive for smoking at this time. In the ER patient was seen and evaluated. Lab work and imaging was done. Patient was found to have COPD exacerbation and thus was referred for admission Allergies cephalexin [From Keflex] Allergy (Intermediate, Verified 12/23/16 16:36) Unknown Sulfa (Sulfonamide Ant Allergy (Uncoded 04/16/17 16:06) Unknown Home medications list reviewed: Yes Home Medications: Atorvastatin Calcium [Lipitor*] 10 mg PO BEDTIME 11/02/16 Clopidogrel Bisulfate [Plavix] 1 tab PO DAILY 11/02/16 Potassium Chloride [Klor-Con Sprinkle] 10 meq PO DAILY 11/02/16 Roflumilast [Daliresp*] 500 mcg PO DAILY #30 tablet 12/10/16 Aspirin [Aspirin EC 81 MG] 81 mg PO DAILY #30 tablet.dr 12/16/16 Ipratropium/Albuterol Sulfate [Iprat-Albut 0.5-3(2.5) mg/3 ml] 1 inh IH Q4HP PRN 12/23/16 Metoprolol Tartrate [Lopressor*] 50 mg PO DAILY 12/23/16 Nicotine [Nicotine Patch] 1 patch TOP DAILY 12/23/16 Primidone [Mysoline *] 150 mg PO BID 12/23/16 Losartan/Hydrochlorothiazide [Losartan-Hctz 50-12.5 mg Tab] 1 each PO DAILY #30 tablet 12/24/16 - Past Medical/Surgical History Has patient received pneumonia vaccine in the past: Yes Diabetic: No -: Peripheral arterial disease status post stent -: COPD -: Essential tremor -: Peripheral arterial disease -: HTN -: Tobacco abuse -: History of meningitis, June 2016 -: Appendectomy -: Right leg surgery -: Peripheral arterial disease with stent -: Eye surgery Psychosocial/ Personal History: The patient is . He has 1 child. 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 - Family History Father -: Lung disease Notes: COPD Mother -: Heart disease - Social History Smoking Status: Current every day smoker Counseled patient to stop smoking for: more than 10 minutes Smoking therapy provided: Yes Patient receptive to therapy: Yes Alcohol use: Yes CD- Drugs: No Caffeine use: Yes Place of Residence: Home Review of Systems 10-point ROS is otherwise unremarkable Physical Examination - Physical Exam General: Alert, Acute distress HEENT: Atraumatic Neck: Supple Respiratory: Normal air movement, Expiratory wheezes, Inspiratory wheezes Cardiovascular: Regular rate/rhythm, Normal S1 S2 Gastrointestinal: Normal bowel sounds, No tenderness Musculoskeletal: No tenderness Integumentary: No rashes Neurological: Normal speech, Normal tone Lymphatics: No axilla or inguinal lymphadenopathy - Studies Laboratory Data (last 24 hrs) 07/18/18 17:15: PT 9.9, INR 0.83, APTT 29.5 07/18/18 17:15: WBC 9.7, Hgb 17.3, Hct 52.1 H, Plt Count 198 07/18/18 17:15: Sodium 133 L, Potassium 4.3, BUN 7, Creatinine 0.83, Glucose 85 , Total Bilirubin 0.4, AST 69 H, ALT 65, Alkaline Phosphatase 115, Lipase 161 Assessment and Plan - Problems (Diagnosis) (1) COPD (chronic obstructive pulmonary disease) Current Visit: No Status: Acute Plan: Acute COPD exacerbation most likely secondary to viral illness -WBC and pro calcitonin negative chest x-ray negative for any pneumonia -sputum culture and flu culture pending at this time -started on duo nebs, steroids, oxygen at this time -pulmonology has been consulted. Awaiting recommendations Qualifiers: COPD type: COPD with acute exacerbation Qualified Code(s): J44.1 - Chronic obstructive pulmonary disease with (acute) exacerbation (2) Alcohol abuse Current Visit: Yes Status: Acute Plan: Currently states that he has occasional alcohol -blood alcohol level is pending at this time -Ativan p.r.n. along with folic acid thymine and multi vitamin order (3) Tobacco abuse Current Visit: No Status: Chronic Plan: Current every day smoker -smoking cessation provided more than 10 min (4) CAD (coronary artery disease) Current Visit: Yes Status: Chronic Plan: Stable at this time. -resume home medication Qualifiers: Coronary Disease-Associated Artery/Lesion type: [place] artery [place] vs. transplanted heart: [place] heart Associated angina: without angina Qualified Code(s): I25.10 - Atherosclerotic heart disease of [place] coronary artery without angina pectoris (5) Hyperlipidemia Current Visit: No Status: Chronic Plan: Stable at this time will restart home medication Qualifiers: (6) PAD (peripheral artery disease) Onset Date: 11/02/16 Current Visit: No Status: Chronic - Advance Directives Does patient have a Living Will: Yes Does patient have a Durable POA for Healthcare: Yes
[2018-07-18] MEDS ORDERED: METHYLPREDNISOLONE 125 MG INJ ONE (18:40)
[2018-07-18] MEDS: NA CHLORIDE 0.9% 1,000 ML IV SCH ×2 (19:00→22:19)
[2018-07-18 19:13] LABS: Folic Acid, (Folate) 9.6 ng/mL (3.1-17.5)
[2018-07-18] MEDS: ALBUTEROL 2.5 MG/3 ML NEB SOL NEB SCH (20:00)
[2018-07-18] MEDS: IPRATROPIUM BROM 0.5MG/2.5ML NEB SCH (20:00)
--- NOTE | 2018-07-18 20:30 | EKG ---
Test Date: 2018-07-18 Test Time: 17:31:48 Professional Housing Consultant: JACKY MEASUREMENT RESULTS: Intervals: Rate: 83 [place]: 176 QRSD: 88 QT: 408 QTc: 479 [place]: P: 87 [place]: 176 QRS: 82 T: 85 INTERPRETIVE STATEMENTS: Normal sinus rhythm Normal ECG Compared to ECG 04/16/2017 13:37:57 No significant changes Electronically Signed On 07-18-18 20:29:11 CDT by Farooq Hill
[2018-07-18 20:40] LABS: Blood Morphology Comment NOT SEEN (NOT SEEN); Platelet Estimate ADEQ; Urine White Blood Cell Casts OK
[2018-07-18] MEDS: BENZONATATE 100 MG CAP PO PRN (22:20)
[2018-07-18] MEDS: predniSONE 10 MG TAB PO SCH (22:20)
[2018-07-18] MEDS ORDERED: ONDANSETRON 4 MG/2 ML VIAL IV PRN (22:36)
[2018-07-19 01:29] VITALS: BMI 20.2
[2018-07-19] MEDS: IPRATROPIUM BROM 0.5MG/2.5ML NEB SCH ×4 (02:00→20:00)
[2018-07-19] MEDS: ALBUTEROL 2.5 MG/3 ML NEB SOL NEB SCH ×4 (02:00→20:00)
[2018-07-19] MEDS: NA CHLORIDE 0.9% 1,000 ML IV SCH ×2 (04:21→06:08)
[2018-07-19 05:53] LABS: Absolute Lymphocytes (CBC) 0.2 K/uL (0.7-4.9); Absolute Monocytes 0.2 K/uL (0.1-1.3); Absolute Neutrophil 6.7 K/uL (1.8-8.0); Basophils % 0.1 % (0-1.3); Hematocrit 43.9 % (39.6-49.0); Lymphocytes % 3.3 % (15.3-44.8); MPV 8.5 fL (7.6-11.3); Monocytes % 2.6 % (3.3-12.3)
[2018-07-19 06:01] LABS: ALT/SGPT 46 U/L (12-78); AST/SGOT 37 U/L (15-37); Albumin 2.8 g/dL (3.4-5.0); Alkaline Phosphatase 90 U/L (45-117); BUN Blood Urea Nitrogen 12 mg/dL (7-18); Bicarbonate 31 mmol/L (21-32); Bilirubin Total 0.3 mg/dL (0.2-1.0); Glucose Level 158 mg/dL (74-106); Magnesium 2.2 mg/dL (1.8-2.4); Phosphorus 3.3 mg/dL (2.5-4.9); Potassium 4.7 mmol/L (3.5-5.1); Protein, Total 6.1 g/dL (6.4-8.2); Sodium Level 139 mmol/L (136-145)
[2018-07-19 06:44] LABS: Anisocytosis SLIGHT; Blood Morphology Comment NOTED (NOT SEEN); Macrocytosis SLIGHT; Platelet Estimate ADEQ
[2018-07-19] MEDS: THIAMINE HCL 100 MG TABLET PO SCH (08:44)
[2018-07-19] MEDS: predniSONE 10 MG TAB PO SCH (08:44)
[2018-07-19] MEDS: MULTIVITAMIN TAB PO SCH (08:44)
[2018-07-19] MEDS: BENZONATATE 100 MG CAP PO PRN ×2 (08:44→17:03)
[2018-07-19] MEDS: ENOXAPARIN 40 MG/0.4 ML SQ SCH (08:44)
[2018-07-19] MEDS: FOLIC ACID 1 MG in NA CHLORIDE 0.9% 50 ML IV SCH ×2 (08:54→09:39)
--- NOTE | 2018-07-19 11:22 | P.PN ---
Subjective Date of Service: 07/19/18 Primary Care Provider: Dr. Mark Chief Complaint: Coughing and SOB Subjective: Improving Patient seen and examined at bedside. No family at bedside. Chart reviewed and case discussed with nursing staff. Patient reports improvement, though still having coughing fits. The medication helping with the cough. No other concerns or complaints today. He has been off of oxygen, satting well on room air. Review of Systems 10-point ROS is otherwise unremarkable Physical Examination - Vital Signs Temperature: 97.2 F Blood Pressure: 148/67 Pulse: 78 Respirations: 20 Pulse Ox (%): 95 - Physical Exam General: Alert, In no apparent distress Respiratory: Diminished, Expiratory wheezes Cardiovascular: Regular rate/rhythm, Normal S1 S2 Gastrointestinal: Normal bowel sounds, No tenderness Musculoskeletal: No tenderness - Studies Laboratory Data (last 24 hrs) 07/18/18 17:15: PT 9.9, INR 0.83, APTT 29.5 07/18/18 17:15: WBC 9.7, Hgb 17.3, Hct 52.1 H, Plt Count 198 07/18/18 17:15: Sodium 133 L, Potassium 4.3, BUN 7, Creatinine 0.83, Glucose 85 , Total Bilirubin 0.4, AST 69 H, ALT 65, Alkaline Phosphatase 115, Lipase 161 Assessment And Plan - Current Problems (Diagnosis) (1) COPD (chronic obstructive pulmonary disease) Current Visit: No Status: Acute Plan: Acute COPD exacerbation most likely secondary to viral illness -WBC and pro calcitonin negative chest x-ray negative for any pneumonia -sputum culture pending and flu negative -continue on duo nebs, steroids, oxygen at this time -pulmonology has been consulted. Awaiting recommendations Qualifiers: COPD type: COPD with acute exacerbation Qualified Code(s): J44.1 - Chronic obstructive pulmonary disease with (acute) exacerbation (2) Alcohol abuse Current Visit: Yes Status: Acute Plan: Currently states that he has occasional alcohol -blood alcohol level elevated at 158 -Ativan p.r.n. along with folic acid thymine and multi vitamin order (3) Tobacco abuse Current Visit: No Status: Chronic Plan: Current every day smoker -smoking cessation provided more than 10 min (4) CAD (coronary artery disease) Current Visit: Yes Status: Chronic Plan: Stable at this time. -resume home medication Qualifiers: Coronary Disease-Associated Artery/Lesion type: [place] artery [place] vs. transplanted heart: [place] heart Associated angina: without angina Qualified Code(s): I25.10 - Atherosclerotic heart disease of [place] coronary artery without angina pectoris (5) Hyperlipidemia Current Visit: No Status: Chronic Plan: Stable at this time will restart home medication Qualifiers: (6) PAD (peripheral artery disease) Onset Date: 11/02/16 Current Visit: No Status: Chronic (7) Macrocytosis without anemia Current Visit: No Status: Chronic Plan: This could be secondary to alcohol use. Normal folate and B12 levels, therefore no need to replete at this time This seems to be a chronic finding. He may need outpatient hematology follow up down the line - Plan DVT prophylaxis: Lovenox GI prophylaxis: None Diet: Heart healthy Disposition: Pending symptomatic improvement. Likely discharge in the next 24- 48 hr Discharge Plan: Home Plan to discharge in: 48 Hours
--- NOTE | 2018-07-19 11:52 | RAD REPORT ---
EXAM DESCRIPTION: RAD - Chest Pa And Lat (2 Views) - 07/19/2018 11:42 am CLINICAL HISTORY: copd exacerbation Chest pain. COMPARISON: Chest Single View dated 07/18/2018; Chest Pa And Lat (2 Views) dated 02/08/2018; Chest Pa And Lat (2 Views) dated 12/14/2017; Chest Single View dated 04/16/2017; Lung Cancer Screening CT W/O heike ed 07/12/2018 TECHNIQUE: PA and lateral views of the chest were obtained. FINDINGS: The lungs are hyperexpanded compatible with COPD. Blunting of the costophrenic angles is l ikely related to chronic pleural thickening. The heart is upper limit of normal in size. No fracture or aggressive bony process. IMPRESSION: COPD without acute process identified.
--- NOTE | 2018-07-19 13:07 | P.CNS ---
Date of Consult: 07/19/18 Reason for Consult: COPD exacerbation Primary Care Provider: Dr. Mark Chief Complaint: Shortness of breath and cough History of Present Illness: Patient is 73 years of age with a history of severe terminal COPD admitted with increasing shortness of breath cough left-sided pleuritic chest pain since Monday I have advised the patient to increase his prednisone to 20 mg twice a day on Monday and go to the emergency room did come to my office and had to call an EMS to be taken to the hospital still feeling weak complaining of cough congestion productive sputum Allergies cephalexin [From Keflex] Allergy (Intermediate, Verified 07/18/18 22:10) Unknown Home Medications: Albuterol Sulfate [Ventolin Hfa] 1 puff IN BID 07/18/18 Aspirin 1 tab PO DAILY 07/18/18 Diclofenac Sodium 1 tab PO BID PRN 07/18/18 Mirtazapine 5 mg PO DAILY 07/18/18 Omeprazole [Prilosec] 1 cap PO 0630 07/18/18 Potassium Chloride [Klor-Con M10] 1 tab PO DAILY 07/18/18 Primidone [Mysoline *] 1 tab PO BID 07/18/18 Rivastigmine Tartrate [Exelon*] 1 cap PO BID 07/18/18 Tiotropium Br/Olodaterol HCl [Stiolto Respimat Inhal [place]] 1 puff IN BID - Past Medical/Surgical History Diabetic: No -: Peripheral arterial disease status post stent 2013 -: COPD -: Essential tremor -: Peripheral arterial disease -: HTN -: Tobacco abuse -: History of meningitis, June 2016 -: pneumonia -: Appendectomy -: Right leg surgery -: Peripheral arterial disease with stent -: Eye surgery cataract sx on both eyes Psychosocial/ Personal History: The patient is . He has 1 child. 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 - Family History Father Medical History: Lung disease Notes: COPD Mother Medical History: Heart disease - Social History Smoking Status: Current every day smoker Alcohol use: Yes CD- Drugs: No Caffeine use: Yes Place of Residence: Home Review of Systems General: Weakness Respiratory: Cough, Shortness of Breath Cardiovascular: Chest Pain Gastrointestinal: Diarrhea Physical Examination Temp Pulse Resp BP Pulse Ox 97.2 F 78 20 148/67 H 95 07/19/18 11:22 07/19/18 11:22 07/19/18 11:22 07/19/18 11:22 07/19/18 11:22 General: Alert, Oriented x3, Moderate distress HEENT: Atraumatic Neck: Supple Respiratory: Diminished, Expiratory wheezes Cardiovascular: No edema, Normal S1 S2 Laboratory Data (last 24 hrs) 07/18/18 17:15: PT 9.9, INR 0.83, APTT 29.5 07/18/18 17:15: WBC 9.7, Hgb 17.3, Hct 52.1 H, Plt Count 198 07/18/18 17:15: Sodium 133 L, Potassium 4.3, BUN 7, Creatinine 0.83, Glucose 85 , Total Bilirubin 0.4, AST 69 H, ALT 65, Alkaline Phosphatase 115, Lipase 161 - Problems (1) COPD exacerbation Current Visit: Yes Status: Acute Plan: Patient is 73 years of age with a history of COPD admitted with worsening shortness of breath cough congestion chest pain no evidence of an obvious fracture chest x-ray hyperinflated patient is hypoxic hypercapnic no evidence of sepsis I have added levofloxacin sputum cultures patient's alcohol level is very high oxygenation satisfactory CT angiogram IV Solu-Medrol
[2018-07-19] MEDS: levoFLOXacin 750 MG TAB PO SCH (15:07)
[2018-07-19] MEDS: METHYLPREDNISOLONE 40 MG INJ IV SCH ×2 (15:07→16:36)
--- NOTE | 2018-07-19 15:23 | RAD REPORT ---
EXAM DESCRIPTION: CT - Chest Angio - 07/19/2018 2:52 pm CLINICAL HISTORY: Chest pain, shortness of breath COMPARISON: CT July 12, 2018 TECHNIQUE: Dynamically enhanced 3 mm thick images of the chest were obtained during administration o f approximately 150mL Isovue 370 IV contrast. Coronal and oblique MIP reconstruction images were gene rated and reviewed. Exam utilizes a protocol to evaluate the pulmonary arterial tree. All CT scans are performed using dose optimization technique as appropriate and may include automated exposure control or mA/KV adjustment according to patient size. FINDINGS: No pulmonary emboli are identified. The aorta as imaged shows no acute or suspicious finding. No pericardial thickening or effusion. No new mass or consolidation. Bronchial wall thickening has developed or progressed from prior imagin g. Partial opacification of left lower lobe segmental bronchi seen. No suspicious endobronchial lesio n. No consolidation or mass within the lung parenchyma. No pleural effusion or pleural thickening. No mediastinal or hilar suspicious masses. No chest wall masses or abnormal axillary lymphadenopathy. IMPRESSION: No pulmonary emboli identified. New or progressive bronchial wall thickening most likely bronchitis/ viral infiltrate.
[2018-07-19] MEDS: RIVASTIGMINE TARTRATE 1.5 MG PO SCH (21:40)
[2018-07-19] MEDS: PRIMIDONE 50 MG TAB PO SCH (21:40)
[2018-07-19] MEDS: HYDROCODONE/CHLORPHEN 5 ML/OSYR PO PRN (22:11)
[2018-07-20] MEDS: METHYLPREDNISOLONE 40 MG INJ IV SCH ×3 (00:03→16:31)
[2018-07-20] MEDS: BENZONATATE 100 MG CAP PO PRN ×2 (00:03→08:38)
[2018-07-20] MEDS: IPRATROPIUM BROM 0.5MG/2.5ML NEB SCH ×4 (02:00→19:20)
[2018-07-20] MEDS: ALBUTEROL 2.5 MG/3 ML NEB SOL NEB SCH ×2 (02:00→08:40)
[2018-07-20] MEDS: PANTOPRAZOLE 40MG TABLET PO SCH (04:56)
[2018-07-20 06:16] LABS: Absolute Lymphocytes (CBC) 0.3 K/uL (0.7-4.9); Absolute Monocytes 0.2 K/uL (0.1-1.3); Absolute Neutrophil 9.2 K/uL (1.8-8.0); Basophils % 0.3 % (0-1.3); Hematocrit 43.1 % (39.6-49.0); Lymphocytes % 3.1 % (15.3-44.8); Monocytes % 2.4 % (3.3-12.3); RBC Red Blood Cell Count 4.18 M/uL (4.33-5.43)
[2018-07-20] MEDS ORDERED: HOME MED 1 EA UNK (Omeprazole [Prilosec] 1 CAP) PO SCH (06:30)
[2018-07-20 06:31] LABS: ALT/SGPT 42 U/L (12-78); AST/SGOT 33 U/L (15-37); Albumin 2.9 g/dL (3.4-5.0); Alkaline Phosphatase 79 U/L (45-117); BUN Blood Urea Nitrogen 8 mg/dL (7-18); Bicarbonate 29 mmol/L (21-32); Bilirubin Total 0.4 mg/dL (0.2-1.0); Glucose Level 158 mg/dL (74-106); Phosphorus 2.6 mg/dL (2.5-4.9); Potassium 3.9 mmol/L (3.5-5.1); Sodium Level 136 mmol/L (136-145)
[2018-07-20] MEDS: levoFLOXacin 750 MG TAB PO SCH (08:38)
[2018-07-20] MEDS: MULTIVITAMIN TAB PO SCH (08:38)
[2018-07-20] MEDS: POTASSIUM CL SA 10 MEQ TAB PO SCH (08:38)
[2018-07-20] MEDS: ENOXAPARIN 40 MG/0.4 ML SQ SCH (08:38)
[2018-07-20] MEDS: ASPIRIN 81 MG CHEWABLE TABLET PO SCH (08:38)
[2018-07-20] MEDS: PRIMIDONE 50 MG TAB PO SCH ×2 (08:38→20:33)
[2018-07-20] MEDS: THIAMINE HCL 100 MG TABLET PO SCH (08:39)
[2018-07-20] MEDS: RIVASTIGMINE TARTRATE 1.5 MG PO SCH ×2 (08:39→20:33)
[2018-07-20] MEDS ORDERED: MIRTAZAPINE PO SCH (09:00)
[2018-07-20] MEDS ORDERED: POTASSIUM CHLORIDE PO SCH (09:00)
[2018-07-20] MEDS: FOLIC ACID 1 MG in NA CHLORIDE 0.9% 50 ML IV SCH (11:37)
[2018-07-20] MEDS: HYDROCODONE/CHLORPHEN 5 ML/OSYR PO PRN (11:38)
[2018-07-20] MEDS ORDERED: TRAMADOL 37.5mg/APAP 325mg PER TAB PO PRN (12:04)
[2018-07-20] MEDS ORDERED: ALBUTEROL 2.5 MG/3 ML NEB SOL NEB PRN (12:08)
--- NOTE | 2018-07-20 12:10 | P.PN ---
Subjective Date of Service: 07/20/18 Primary Care Provider: Dr. Mark Chief Complaint: COPD exacerbation Patient is still complaining of cough congestion shortness of breath no better again experiencing significant left-sided chest disk productive cough Review of Systems General: Weakness Respiratory: Cough, Shortness of Breath Cardiovascular: Chest Pain Physical Examination - Vital Signs Temperature: 97.1 F Blood Pressure: 172/77 Pulse: 68 Respirations: 16 Pulse Ox (%): 98 - Physical Exam General: Alert, Oriented x3, Moderate distress Neck: Supple Respiratory: Crackles/rales, Expiratory wheezes Cardiovascular: No edema, Regular rate/rhythm, Normal S1 S2 - Studies Microbiology Data (last 24 hrs): 07/18/18 17:00 Sputum Gram Stain - Final Assessment & Plan - Problems (Diagnosis) (1) COPD exacerbation Current Visit: Yes Status: Acute Plan: Patient is 73 years of age admitted with COPD exacerbation I suspect secondary to Haemophilus influenzae continue with antibiotics steroids I have also addeddaliresp. CT angiogram does not show any evidence of thromboembolism no pneumonia oxygenation satisfactory blood pressure is little elevated
[2018-07-20] MEDS: ROFLUMILAST 500 MCG TABLET PO SCH (12:42)
[2018-07-20] MEDS: CODEINE 12mg/APAP 120mg PER 5 ML UCUP PO PRN ×2 (13:50→20:36)
--- NOTE | 2018-07-20 14:40 | P.PN ---
Subjective Date of Service: 07/20/18 Primary Care Provider: Dr. Mark Chief Complaint: COPD exacerbation Subjective: No new changes Patient seen and examined at bedside. No family at bedside. Chart reviewed and case discussed with nursing staff. Still having coughing fits. The medication helping with the cough. No other concerns or complaints today. He has been off of oxygen, satting well on room air. Review of Systems 10-point ROS is otherwise unremarkable Physical Examination - Vital Signs Temperature: 97.1 F Blood Pressure: 172/77 Pulse: 68 Respirations: 16 Pulse Ox (%): 98 - Physical Exam General: Alert, In no apparent distress, Oriented x3 HEENT: Atraumatic, PERRLA, EOMI Neck: Supple, JVD not distended Respiratory: Diminished, Crackles/rales, Expiratory wheezes Cardiovascular: Regular rate/rhythm, Normal S1 S2 Gastrointestinal: Normal bowel sounds, No tenderness Musculoskeletal: No tenderness Integumentary: No rashes Neurological: Normal speech, Normal tone, Normal affect Lymphatics: No axilla or inguinal lymphadenopathy - Studies Microbiology Data (last 24 hrs): 07/18/18 17:00 Sputum Gram Stain - Final Assessment And Plan - Current Problems (Diagnosis) (1) COPD (chronic obstructive pulmonary disease) Current Visit: No Status: Acute Plan: Acute COPD exacerbation most likely secondary to viral illness -WBC and pro calcitonin negative chest x-ray negative for any pneumonia -sputum culture pending and flu negative -continue on duo nebs, steroids, oxygen at this time -pulmonology has been consulted. Recommendations appreciated Qualifiers: COPD type: COPD with acute exacerbation Qualified Code(s): J44.1 - Chronic obstructive pulmonary disease with (acute) exacerbation (2) Alcohol abuse Current Visit: Yes Status: Acute Plan: Currently states that he has occasional alcohol -blood alcohol level elevated at 158 -Ativan p.r.n. along with folic acid thymine and multi vitamin order (3) Tobacco abuse Current Visit: No Status: Chronic Plan: Current every day smoker -smoking cessation provided more than 10 min (4) CAD (coronary artery disease) Current Visit: Yes Status: Chronic Plan: Stable at this time. -resume home medication Qualifiers: Coronary Disease-Associated Artery/Lesion type: [place] artery [place] vs. transplanted heart: [place] heart Associated angina: without angina Qualified Code(s): I25.10 - Atherosclerotic heart disease of [place] coronary artery without angina pectoris (5) Hyperlipidemia Current Visit: No Status: Chronic Plan: Stable at this time will restart home medication Qualifiers: (6) PAD (peripheral artery disease) Onset Date: 11/02/16 Current Visit: No Status: Chronic (7) Macrocytosis without anemia Current Visit: No Status: Chronic Plan: This could be secondary to alcohol use. Normal folate and B12 levels, therefore no need to replete at this time This seems to be a chronic finding. He may need outpatient hematology follow up down the line - Plan DVT prophylaxis: Lovenox GI prophylaxis: None Diet: Heart healthy Disposition: Pending symptomatic improvement. Likely discharge in the next 24- 48 hr
[2018-07-20] MEDS: ARFORMOTEROL TARTRATE 15 MCG/2 ML VIAL.NEB NEB SCH (19:20)
[2018-07-20] MEDS ORDERED: MIRTAZAPINE 15 MG TAB PO SCH (21:00)
[2018-07-21] MEDS: METHYLPREDNISOLONE 40 MG INJ IV SCH ×2 (00:24→08:43)
[2018-07-21] MEDS: HYDROCODONE/CHLORPHEN 5 ML/OSYR PO PRN (01:28)
[2018-07-21] MEDS: IPRATROPIUM BROM 0.5MG/2.5ML NEB SCH ×2 (02:05→07:27)
[2018-07-21 05:58] LABS: Absolute Lymphocytes (CBC) 0.3 K/uL (0.7-4.9); Absolute Monocytes 0.4 K/uL (0.1-1.3); Absolute Neutrophil 8.3 K/uL (1.8-8.0); Basophils % 0.6 % (0-1.3); Hematocrit 43.4 % (39.6-49.0); Lymphocytes % 3.2 % (15.3-44.8); MPV 8.5 fL (7.6-11.3); Monocytes % 4.5 % (3.3-12.3); RBC Red Blood Cell Count 4.22 M/uL (4.33-5.43)
[2018-07-21 06:15] LABS: ALT/SGPT 42 U/L (12-78); AST/SGOT 32 U/L (15-37); Albumin 2.8 g/dL (3.4-5.0); Alkaline Phosphatase 68 U/L (45-117); BUN Blood Urea Nitrogen 13 mg/dL (7-18); Bicarbonate 30 mmol/L (21-32); Bilirubin Total 0.3 mg/dL (0.2-1.0); Glucose Level 152 mg/dL (74-106); Magnesium 2.2 mg/dL (1.8-2.4); Phosphorus 2.9 mg/dL (2.5-4.9); Potassium 4.3 mmol/L (3.5-5.1); Protein, Total 5.6 g/dL (6.4-8.2); Sodium Level 140 mmol/L (136-145)
[2018-07-21] MEDS: PANTOPRAZOLE 40MG TABLET PO SCH (06:37)
[2018-07-21] MEDS: ARFORMOTEROL TARTRATE 15 MCG/2 ML VIAL.NEB NEB SCH (07:27)
[2018-07-21] MEDS: POTASSIUM CL SA 10 MEQ TAB PO SCH (08:44)
[2018-07-21] MEDS: ROFLUMILAST 500 MCG TABLET PO SCH (08:44)
[2018-07-21] MEDS: levoFLOXacin 750 MG TAB PO SCH (08:44)
[2018-07-21] MEDS: ASPIRIN 81 MG CHEWABLE TABLET PO SCH (08:44)
[2018-07-21] MEDS: MULTIVITAMIN TAB PO SCH (08:44)
[2018-07-21] MEDS: RIVASTIGMINE TARTRATE 1.5 MG PO SCH (08:45)
[2018-07-21] MEDS: PRIMIDONE 50 MG TAB PO SCH (08:45)
[2018-07-21] MEDS: THIAMINE HCL 100 MG TABLET PO SCH (08:45)
[2018-07-21] MEDS: ENOXAPARIN 40 MG/0.4 ML SQ SCH (08:46)
[2018-07-21] MEDS: CODEINE 12mg/APAP 120mg PER 5 ML UCUP PO PRN (08:51)
[2018-07-21] MEDS: FOLIC ACID 1 MG in NA CHLORIDE 0.9% 50 ML IV SCH (09:26)
[2018-07-21 09:32] VITALS: O2SAT 96
--- NOTE | 2018-07-21 11:20 | P.PN ---
Subjective Date of Service: 07/21/18 Primary Care Provider: Dr. Mark Chief Complaint: COPD exacerbation Patient has improved significantly chest pain has resolved slight cough and shortness of breath he looks much better slept well last night Review of Systems General: Weakness Respiratory: Cough, Shortness of Breath Physical Examination - Vital Signs Temperature: 97.4 F Blood Pressure: 154/75 Pulse: 61 Respirations: 20 Pulse Ox (%): 96 - Physical Exam General: Alert, Oriented x3 Neck: Supple Respiratory: Clear to auscultation bilaterally, Diminished Cardiovascular: No edema, Normal pulses - Studies Microbiology Data (last 24 hrs): 07/18/18 17:00 Sputum Gram Stain - Final 07/18/18 17:00 Sputum Culture & Sensitivity - Final Haemophilus Influenzae I Assessment & Plan - Problems (Diagnosis) (1) COPD exacerbation Current Visit: Yes Status: Acute Plan: Patient admitted with COPD exacerbation Haemophilus influenza infection discharged home on prednisone 10 mg twice a day to be taken for 7 days and then 10 mg once a day I faxed in some Augmentin I am not sure if his allergic doing discuss with Dr. Rios will verify his allergies status or change to levofloxacin and he will also benefit from Daliresp discharged home
--- NOTE | 2018-07-21 11:46 | P.DS ---
Admission Date: 07/18/18 Discharge Date: 07/21/18 Primary Care Provider: Dr. Mark Disposition: ROUTINE DISCHARGE Discharge Condition: FAIR Reason for Admission: COPD exacerbation Consultations: Pulmonology - Problems (1) COPD (chronic obstructive pulmonary disease) Current Visit: No Status: Acute Qualifiers: COPD type: COPD with acute exacerbation Qualified Code(s): J44.1 - Chronic obstructive pulmonary disease with (acute) exacerbation (2) Alcohol abuse Current Visit: Yes Status: Acute (3) Tobacco abuse Current Visit: No Status: Chronic (4) CAD (coronary artery disease) Current Visit: Yes Status: Chronic Qualifiers: Coronary Disease-Associated Artery/Lesion type: [place] artery [place] vs. transplanted heart: [place] heart Associated angina: without angina Qualified Code(s): I25.10 - Atherosclerotic heart disease of [place] coronary artery without angina pectoris (5) Hyperlipidemia Current Visit: No Status: Chronic Qualifiers: (6) PAD (peripheral artery disease) Onset Date: 11/02/16 Current Visit: No Status: Chronic (7) Macrocytosis without anemia Current Visit: No Status: Chronic Brief History of Present Illness: The 73-year-old male with significant past medical history of CAD, COPD, alcohol abuse, tobacco abuse, who presented to the ED complaining of having some shortness of breath, chills, and coughing spells. Patient was seen at the [facility] today where he started having some shortness of breath along with coughing spell and thus was sent to the ER for further workup. Cough is nonproductive at this time. Patient has inhalers at home which she did try using however did not have any improvement with that. Patient denies having any fever chills nausea vomiting chest pain or any other associated symptoms. Patient positive for alcohol and positive for smoking at this time. In the ER patient was seen and evaluated. Lab work and imaging was done. Patient was found to have COPD exacerbation and thus was referred for admission Hospital Course: Patient was admitted for acute COPD exacerbation, most likely secondary to viral infection. He was started on duo nebs, steroids and oxygen as needed. Pulmonology was consulted. 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 He was discharged home on Augmentin, oral steroids. I did discuss cephalexin allergy with patient. Patient stated that he does not remember the reaction to some Keflex as it was 30-40 years ago, thinks it may have just been back in town but is unsure. He states that he has had Augmentin multiple times afterwards without any problems or concerns. He was provided medication for cough. His cough and symptoms improved. Prior to discharge, he was tolerating an oral diet, ambulating without concerns, shortness of breath had improved drastically, about at baseline. He was counseled on alcohol and tobacco cessation. He otherwise remained stable throughout the stay. His diagnoses/treatment plan were explained to patient. All questions were answered, he verbalized understanding. He was discharged home in a safe and stable manner. He was instructed to follow up with pulmonology in 2 weeks. Vital Signs/Physical Exam: Temp Pulse Resp BP Pulse Ox 97.4 F 61 20 154/75 H 96 07/21/18 11:20 07/21/18 11:20 07/21/18 11:20 07/21/18 11:20 07/21/18 11:20 General: Alert, In no apparent distress, Oriented x3 HEENT: Atraumatic, PERRLA, EOMI Neck: Supple, JVD not distended Respiratory: Clear to auscultation bilaterally, Normal air movement, Expiratory wheezes Cardiovascular: Regular rate/rhythm, Normal S1 S2 Gastrointestinal: Normal bowel sounds, No tenderness Musculoskeletal: No tenderness Integumentary: No rashes Neurological: Normal speech, Normal tone, Normal affect Lymphatics: No axilla or inguinal lymphadenopathy Laboratory Data at Discharge: WBC 9.1 K/uL (4.3-10.9) 07/21/18 05:32 Hgb 14.5 g/dL (13.6-17.9) 07/21/18 05:32 Hct 43.4 % (39.6-49.0) 07/21/18 05:32 Plt Count 189 K/uL (152-406) D 07/21/18 05:32 PT 9.9 SECONDS (9.5-12.5) 07/18/18 17:15 INR 0.83 07/18/18 17:15 APTT 29.5 SECONDS (24.3-36.9) 07/18/18 17:15 Sodium 140 mmol/L (136-145) 07/21/18 05:32 Potassium 4.3 mmol/L (3.5-5.1) 07/21/18 05:32 BUN 13 mg/dL (7-18) 07/21/18 05:32 Creatinine 0.67 mg/dL (0.55-1.3) 07/21/18 05:32 Glucose 152 mg/dL (74-106) H 07/21/18 05:32 Phosphorus 2.9 mg/dL (2.5-4.9) 07/21/18 05:32 Magnesium 2.2 mg/dL (1.8-2.4) 07/21/18 05:32 Total Bilirubin 0.3 mg/dL (0.2-1.0) 07/21/18 05:32 AST 32 U/L (15-37) 07/21/18 05:32 ALT 42 U/L (12-78) 07/21/18 05:32 Alkaline Phosphatase 68 U/L (45-117) 07/21/18 05:32 Lipase 161 U/L (73-393) 07/18/18 17:15 Home Medications: Albuterol Sulfate [Ventolin Hfa] 1 puff IN BID 07/18/18 Aspirin 1 tab PO DAILY 07/18/18 Diclofenac Sodium 1 tab PO BID PRN 07/18/18 Mirtazapine 5 mg PO DAILY 07/18/18 Omeprazole [Prilosec] 1 cap PO 0630 07/18/18 Potassium Chloride [Klor-Con M10] 1 tab PO DAILY 07/18/18 Primidone [Mysoline *] 1 tab PO BID 07/18/18 Rivastigmine Tartrate [Exelon*] 1 cap PO BID 07/18/18 Tiotropium Br/Olodaterol HCl [Stiolto Respimat Inhal [place]] 1 puff IN BID Amox/Clavulanate [Augmentin 875-125 Tab] 875 mg PO BID #14 tab 07/21/18 Prednisone [Sterapred Ds] 10 mg PO DAILY 90 Days #90 tab.ds.pk 07/21/18 Roflumilast [Daliresp*] 500 mcg PO DAILY #30 tablet 07/21/18 Thiamine HCl [Vitamin B-1*] 100 mg PO DAILY #30 tablet 07/21/18 New Medications: Amox/Clavulanate [Augmentin 875-125 Tab] 875 mg PO BID #14 tab Prednisone [Sterapred Ds] 10 mg PO DAILY 90 Days #90 tab.ds.pk Roflumilast [Daliresp*] 500 mcg PO DAILY #30 tablet Thiamine HCl [Vitamin B-1*] 100 mg PO DAILY #30 tablet Patient Discharge Instructions: Please follow up with the primary care physician in 2-3 days. Please follow up with pulmonology in 2 weeks. New medications: Prednisone 10 mg twice a day for 10 days. Augmentin, an antibiotic for your infection. As discussed, please stop medication and noted to have any allergic reaction. Diet: AHA Activity: Ad vania Followup: Brandon Ventura MD [ACTIVE - CAN ADMIT] - 1-2 Weeks Time spent managing pt's care (in minutes): 55
[2018-07-21 12:44] VITALS: BP 145/79; TEMP 97.7
== END 2018-07-21 13:28 | disposition home or self-care (01) | DRG 192 ==
LOC: ER 15:43 → 2ND 21:25
PROVIDERS: ADMIT Family Medicine; ATTEND Family Medicine
DX: J44.1 Chronic obstructive pulmonary disease with (acute) exacerbation (principal); I25.10 Atherosclerotic heart disease of native coronary artery without angina pectoris; F10.10 Alcohol abuse, uncomplicated; E78.5 Hyperlipidemia, unspecified; I73.9 Peripheral vascular disease, unspecified; D75.89 Other specified diseases of blood and blood-forming organs; F17.210 Nicotine dependence, cigarettes, uncomplicated; I10 Essential (primary) hypertension; R09.3 Abnormal sputum
CPT/HCPCS: 36415; 71045; 71046; 71275; 80048; 80053; 80076; 80320; 81003; 82550; 82553; 82607; 82746; 82805; 82962; 83605; 83690; 83735; 84100; 84145; 84484; 85025; 85610; 85730; 87040; 87070; 87184; 87205; 87804; 93005; 94760; 96361; 96365; 96367; 96374; 97116; 97163; 97530; 99285; J1650; J2920; J2930; J7030; J7512; J7605; Q9967

== ENCOUNTER 2019-03-15 21:47 | Emergency (ER) | payer OTHER ==
[2019-03-15 22:38] LABS: Absolute Lymphocytes (CBC) 0.8 K/uL (0.7-4.9); Basophils % 0.5 % (0-1.3); Hematocrit 44.7 % (39.6-49.0); Lymphocytes % 5.7 % (15.3-44.8); MPV 8.7 fL (7.6-11.3); RBC Red Blood Cell Count 4.75 M/uL (4.33-5.43)
[2019-03-15] MEDS ORDERED: LEVALBUTEROL 1.25 MG/3 ML NEB ONE (22:41)
[2019-03-15] MEDS ORDERED: NA CHLORIDE 0.9% 250 ML ONE (22:41)
[2019-03-15] MEDS ORDERED: NA CHLORIDE 0.9% 1,000 ML ONE (22:41)
[2019-03-15] MEDS ORDERED: NA CHLORIDE 0.9% 500 ML ONE (22:42)
[2019-03-15 22:57] LABS: Protime INR 0.99
[2019-03-15 22:59] LABS: ALT/SGPT 40 U/L (12-78); AST/SGOT 34 U/L (15-37); Albumin 2.8 g/dL (3.4-5.0); Alkaline Phosphatase 75 U/L (45-117); BUN Blood Urea Nitrogen 9 mg/dL (7-18); Bicarbonate 31 mmol/L (21-32); Bilirubin Direct 0.1 mg/dL (0-0.2); Bilirubin Total 0.3 mg/dL (0.2-1.0); Glucose Level 127 mg/dL (74-106); Magnesium 1.7 mg/dL (1.8-2.4); NT PRO-BNP 354 pg/mL (<125); Potassium 4.3 mmol/L (3.5-5.1); Protein, Total 6.9 g/dL (6.4-8.2); Sodium Level 136 mmol/L (136-145); Troponin (Emerg Dept Use Only) < 0.02 ng/mL (0.0-0.045)
[2019-03-15 23:41] LABS: Urine Blood NEGATIVE (NEG); Urine Glucose NEGATIVE (NEG); Urine Protein 1+ (NEG); Urine Specific Gravity >1.030 (1.005-1.030); Urine pH 5.5 (5.0-7.0)
[2019-03-15] MEDS ORDERED: MAGNESIUM SULFATE 1 gm IVPB 1 GM/100 ML BAG IV ONE (23:48)
[2019-03-16 00:38] LABS: Calcium Oxalate Crystals- Ur FEW (NONE SEEN); Urine Bacteria <20 /HPF (NONE SEEN); Urine Culture Reflex Order NOT NEEDED; Urine Mucus 3+ /HPF (NONE SEEN); Urine RBC <5 /HPF (NONE SEEN)
[2019-03-16] MEDS ORDERED: METHYLPREDNISOLONE 125 MG INJ ONE (01:05)
[2019-03-16] MEDS ORDERED: levoFLOXacin 750 MG TAB ONE (01:06)
--- NOTE | 2019-03-16 03:09 | ER ---
Nurse's Notes [facility] Name: Bossman Gooden Age: 74 yrs Sex: Male : 1945 Arrival Date: 03/15/2019 Time: 21:50 Bed 18 Private MD: Diagnosis: Chronic obstructive pulmonary disease with acute lower respiratory infection Presentation: 03/15 22:08 Presenting complaint: Patient states: Shortness of breath and cough for the past couple aj1 weeks, he started feeling worse a few days ago. Today he can't catch his breath at all. Patient reports that he has had pneumonia 3 time and this feels like when has has felt like every time he has pneumonia. Patient also reports that he has lost 30 pounds in the past 3 months. Denies fever. Transition of care: patient was not received from another setting of care. Onset of symptoms was 2019. Risk Assessment: Do you want to hurt yourself or someone else? Patient reports no desire to harm self or others. Initial Sepsis Screen: Does the patient meet any 2 criteria? RR > 20 per min. HR > 90 bpm. Yes Does the patient have a suspected source of infection? Yes: Productive cough/pneumonia. Care prior to arrival: None. 22:08 Method Of Arrival: Ambulatory aj1 22:08 Acuity: GUANACO 2 aj1 Triage Assessment: 22:10 General: Appears uncomfortable, Behavior is calm, cooperative, appropriate for age. aj1 Pain: Complains of pain in back Pain currently is 5 out of 10 on a pain scale. Neuro: Level of Consciousness is awake, alert, obeys commands. Cardiovascular:. Historical: - Allergies: 22:10 Keflex; aj1 22:10 Sulfa (Sulfonamide Antibiotics); aj1 - PMHx: 22:10 Asthma; CAD; COPD; EDEMA; Emphysema; ESSENTIAL TREMORS; High Cholesterol; Hypertension; aj1 meningitis; Pneumonia; - Immunization history:: Adult Immunizations up to date. - Social history:: Smoking status: Patient uses tobacco products, smokes one pack cigarettes per day. - Ebola Screening: : Patient denies travel to an Ebola-affected area in the 21 days before illness onset. Screenin:06 Abuse screen: Denies threats or abuse. Nutritional screening: No deficits noted. jd3 Tuberculosis screening: No symptoms or risk factors identified. Fall Risk IV access (20 points). Ambulatory Aid- None/Bed Rest/Nurse Assist (0 pts). Gait- Weak (10 pts.). Mental Status- Oriented to own ability (0 pts). Total Tello Fall Scale indicates Low Risk Score (25-44 pts). Fall prevention measures have been instituted. Side Rails Up X 2 Placed close to Nursing Station Frequent Obs/Assesments occuring Family Present and informed to notify staff if they need to leave bedside. Assessment: 22:34 General: Appears in no apparent distress. uncomfortable, ill, Behavior is calm, jd3 cooperative, appropriate for age, anxious. Pain: Complains of pain in back Quality of pain is described as aching. Neuro: Level of Consciousness is awake, alert, obeys commands, Oriented to person, place, time, situation. Cardiovascular: Heart tones S1 S2 present Capillary refill < 3 seconds Patient's skin is warm and dry. Respiratory: Reports shortness of breath at rest cough that is persistent Airway is patent Respiratory effort is labored, shallow, Respiratory pattern is tachypnea Breath sounds with wheezes bilaterally. GI: No signs and/or symptoms were reported involving the gastrointestinal system. Patient currently denies diarrhea, nausea, vomiting. : No signs and/or symptoms were reported regarding the genitourinary system. EENT: No signs and/or symptoms were reported regarding the EENT system. Derm: Skin is intact, Skin is dry, Skin is normal, Skin temperature is warm. Musculoskeletal: Circulation, motion, and sensation intact. Range of motion: intact in all extremities. 23:05 Reassessment: Patient appears in no apparent distress at this time. No changes from jd3 previously documented assessment. Patient and/or family updated on plan of care and expected duration. Pain level reassessed. 03/16 00:02 Reassessment: Patient appears in no apparent distress at this time. No changes from jd3 previously documented assessment. Patient and/or family updated on plan of care and expected duration. Pain level reassessed. reports minor relief from shortness of breath. A\\T\\O X 4. pt reporting continued shortness of breath. resting in bed comfortably. awaiting results. 01:09 Reassessment: Patient appears in no apparent distress at this time. No changes from jd3 previously documented assessment. Patient and/or family updated on plan of care and expected duration. Pain level reassessed. :45 Reassessment: provider at bedside discussing plan of care with pt. jd3 02:43 Reassessment: Patient appears in no apparent distress at this time. Patient and/or jd3 family updated on plan of care and expected duration. Pain level reassessed. pt reports some relief, provider at bedside discussing plan of care. pt with even respirations, tachypnea noted. pt appears less labored. 02:53 Reassessment: Patient appears in no apparent distress at this time. No changes from [facility] previously documented assessment. pt reported understanding of discharge instructions. awaiting ride for discharge. 03:34 Reassessment: Patient appears in no apparent distress at this time. No changes from [facility] previously documented assessment. Patient and/or family updated on plan of care and expected duration. Pain level reassessed. pt moved to different room to rest and wait for ride. pt attempted to call a ride with no answer. pt resting in bed comfortably. 04:30 Reassessment: Patient appears in no apparent distress at this time. No changes from previously documented assessment. Patient and/or family updated on plan of care and expected duration. Pain level reassessed. Patient is alert, oriented x 3, equal unlabored respirations, skin warm/dry/pink. PT awaiting ride to home. 05:31 Reassessment: Patient appears in no apparent distress at this time. Patient and/or jd3 family updated on plan of care and expected duration. Pain level reassessed. Patient is alert, oriented x 3, equal unlabored respirations, skin warm/dry/pink. resting comfortably in bed with no signs of pain. awaiting ride. 06:58 Reassessment: Patient appears in no apparent distress at this time. No changes from previously documented assessment. Patient and/or family updated on plan of care and expected duration. Pain level reassessed. Patient is alert, oriented x 3, equal unlabored respirations, skin warm/dry/pink. 07:36 Reassessment: Patient appears in no apparent distress at this time. Patient and/or ph family updated on plan of care and expected duration. Pain level reassessed. Patient is alert, oriented x 3, equal unlabored respirations, skin warm/dry/pink. Pt resting comfortably, awaiting ride home, states, " My should be here soon.". Vital Signs: 01/03 22:10 BP 158 / 81; Pulse 127; Resp 32; Temp 99.4; Pulse Ox 93% on 2 lpm NC; Weight 57.15 kg aj1 (R); Height 6 ft. 0 in. (182.88 cm) (R); Pain 5/10; 23:05 BP 176 / 81; Pulse 110; Resp 23 S; Pulse Ox 100% on Nebulizer Mask; jd3 03/16 00:02 BP 120 / 70; Pulse 110; Resp 26 S; Temp 98.9; Pulse Ox 96% on 2.5 lpm NC; jd3 01:08 BP 134 / 74; Pulse 101; Resp 26 S; Pulse Ox 97% on 2.5 lpm NC; jd3 02:42 BP 130 / 56; Pulse 97; Resp 21 S; Pulse Ox 95% on 2.5 lpm NC; jd3 03:37 Pulse 96; Resp 27 S; Pulse Ox 98% on 2.5 lpm NC; jd3 05:32 Pulse 97; Resp 24 S; Pulse Ox 98% on 2.5 lpm NC; jd3 07:39 BP 127 / 60; Pulse 95; Resp 22; Pulse Ox 97% on 2.5 lpm NC; ph 03/15 22:10 Body Mass Index 17.09 (57.15 kg, 182.88 cm) aj1 ED Course: 03/15 21:50 Patient arrived in ED. ag3 22:09 Triage completed. aj1 22:10 Arm band placed on Patient placed in an exam room. aj1 22:10 shelter monitor on. Pulse ox on. NIBP on. aj1 22:15 Paco Atkinson PA is PHCP. cp 22:16 Lior Monson MD is Attending Physician. cp 22:25 Inserted saline lock: 18 gauge in right antecubital area, using aseptic technique. aj1 Blood collected. 22:25 Initial lab(s) drawn, by me, sent to lab. First set of blood cultures drawn by me, Flu aj1 and/or RSV swab sent to lab. 22:33 Second set of blood cultures drawn by lab staff. aj1 22:35 Saleem Mercado, YULISA is Primary Nurse. jd3 22:52 XRAY Chest (1 view) In Process Unspecified. EDMS 23:06 Patient has correct armband on for positive identification. Placed in gown. Bed in low jd3 position. Call light in reach. Side rails up X2. Adult w/ patient. 03/16 02:15 CT Chest For PE Angio In Process Unspecified. EDMS 02:54 No provider procedures requiring assistance completed. IV discontinued, intact, jd3 bleeding controlled, No redness/swelling at site. Pressure dressing applied. Administered Medications: 03/15 22:48 Drug: Xopenex (3) 1.25 mg Route: Inhalation; jd3 03/16 02:56 Follow up: Response: No adverse reaction jd3 03/15 22:48 Drug: NS 0.9% (30 ml/kg) 30 ml/kg Route: IV; Rate: bolus; Site: right antecubital; jd3 03/16 02:55 Follow up: Response: No adverse reaction; IV Status: Completed infusion jd3 03/15 23:49 Drug: Magnesium Sulfate 1 grams Route: IVPB; Infused Over: 1 hrs; Site: right jd3 antecubital; 03/16 00:45 Follow up: Response: No adverse reaction; IV Status: Completed infusion jd3 01:08 Drug: LevaQUIN 750 mg Route: PO; jd3 02:00 Follow up: Response: No adverse reaction jd3 01:08 Drug: SOLU-Medrol 125 mg Route: IVP; Site: right antecubital; jd3 02:00 Follow up: Response: No adverse reaction jd3 Outcome: 02:12 Discharge ordered by MD. bennett 02:54 Condition: stable jd3 02:54 Discharge instructions given to patient, Instructed on discharge instructions, follow up and referral plans. medication usage, Demonstrated understanding of instructions, follow-up care, medications, Prescriptions given X 3. 08:36 Discharged to home ambulatory, with significant other. ph 08:36 Patient left the ED. ph Signatures: Dispatcher [employer] EDMS Ale Heath RN RN aj1 Tamar Borja RN RN ph Paco Atkinson PA PA cp Habalo, Winsy wh Davies, Jonathon, RN RN jd3 Jo Segundo3 Corrections: (The following items were deleted from the chart) 00:38 00:02 BP 120 / 70; Pulse 110bpm; Resp 26bpm; Spontaneous; Pulse Ox 96% 2.5 lpm Nasal jd3 Cannula; jd3
--- NOTE | 2019-03-16 03:12 | EDPHYS ---
Physician Documentation [facility] Name: Bossman Gooden Age: 74 yrs Sex: Male : 1945 Arrival Date: 03/15/2019 Time: 21:50 Bed 18 Private MD: ED Physician Lior Monson HPI: 03/15 22:26 This 74 yrs old Male presents to ER via Ambulatory with complaints of Cough. cp 22:26 The patient or guardian reports cough, with productive sputum, that is green. Onset: cp The symptoms/episode began/occurred over 1 week ago. Severity of symptoms: in the emergency department the symptoms are unchanged, despite home interventions. Associated signs and symptoms: Pertinent positives: shortness of breath, Pertinent negatives: chest pain, diarrhea, fever, vomiting. Historical: - Allergies: 22:10 Keflex; aj1 22:10 Sulfa (Sulfonamide Antibiotics); aj1 - PMHx: 22:10 Asthma; CAD; COPD; EDEMA; Emphysema; ESSENTIAL TREMORS; High Cholesterol; Hypertension; aj1 meningitis; Pneumonia; - Immunization history:: Adult Immunizations up to date. - Social history:: Smoking status: Patient uses tobacco products, smokes one pack cigarettes per day. - Ebola Screening: : Patient denies travel to an Ebola-affected area in the 21 days before illness onset. ROS: 22:33 Eyes: Negative for injury, pain, redness, and discharge. cp 22:33 Constitutional: Positive for weight loss, Negative for body aches, chills, fever, poor PO intake. 22:35 ENT: Negative for drainage from ear(s), ear pain, sore throat, difficulty swallowing, cp difficulty handling secretions. 22:35 Neck: Negative for pain with movement, pain at rest, stiffness. 22:35 Cardiovascular: Negative for chest pain, edema. 22:35 Respiratory: Positive for cough, with green sputum, shortness of breath, at rest. Negative for wheezing. 22:35 Abdomen/GI: Positive for nausea, anorexia, Negative for vomiting, diarrhea, constipation, black/tarry stool, rectal bleeding. 22:35 : Negative for urinary symptoms, flank pain. 22:35 Skin: Negative for rash. 22:35 Neuro: Negative for altered mental status, dizziness, headache, syncope, weakness. 22:35 All other systems are negative. cp Exam: 22:49 ECG was reviewed by the Attending Physician. cp 22:50 Head/Face: Normocephalic, atraumatic. cp 22:50 Eyes: Pupils equal round and reactive to light, extra-ocular motions intact. Lids and lashes normal. Conjunctiva and sclera are non-icteric and not injected. Cornea within normal limits. Periorbital areas with no swelling, redness, or edema. 22:50 Constitutional: The patient appears in no acute distress, alert, awake, non-diaphoretic, non-toxic, well developed, well groomed, well nourished. 22:50 ENT: External ear(s): are unremarkable, Ear canal(s): are normal, clear, TM's: dullness, bilaterally, Nose: is normal, Mouth: Lips: moist, Oral mucosa: moist, Posterior pharynx: Airway: no evidence of obstruction, patent, Tonsils: no enlargement, no exudate, swelling, is not appreciated, erythema, that is mild, exudate, is not appreciated. 22:50 Neck: ROM/movement: is normal, is supple, no meningismus, no nuchal rigidity. 22:50 Chest/axilla: Inspection: normal, Palpation: is normal, no crepitus, no tenderness. 22:50 Cardiovascular: Rate: tachycardic, Rhythm: regular, Edema: is not appreciated, JVD: is not appreciated. 22:50 Respiratory: mild respiratory distress is noted, Respirations: labored breathing, that is mild, shallow respirations, that is mild, tachypnea, that is mild, Breath sounds: decreased breath sounds, that are mild, throughout, stridor, is not appreciated, + upper airway congestion. wheezing: is not appreciated. 22:50 Abdomen/GI: Inspection: abdomen appears normal, Bowel sounds: active, all quadrants, Palpation: soft, in all quadrants, mild abdominal tenderness, in the epigastric area, voluntary guarding, is not appreciated, involuntary guarding, is not appreciated. 22:50 Back: pain, of the low back area, ROM is painful. 22:50 Skin: no rash present. 22:50 Neuro: Orientation: to person, place \T\ time. Mentation: is normal, Cerebellar function: is grossly normal, Motor: moves all fours, strength is normal, Sensation: is normal. Vital Signs: 22:10 BP 158 / 81; Pulse 127; Resp 32; Temp 99.4; Pulse Ox 93% on 2 lpm NC; Weight 57.15 kg aj1 (R); Height 6 ft. 0 in. (182.88 cm) (R); Pain 5/10; 23:05 BP 176 / 81; Pulse 110; Resp 23 S; Pulse Ox 100% on Nebulizer Mask; jd3 03/16 00:02 BP 120 / 70; Pulse 110; Resp 26 S; Temp 98.9; Pulse Ox 96% on 2.5 lpm NC; jd3 01:08 BP 134 / 74; Pulse 101; Resp 26 S; Pulse Ox 97% on 2.5 lpm NC; jd3 02:42 BP 130 / 56; Pulse 97; Resp 21 S; Pulse Ox 95% on 2.5 lpm NC; jd3 03:37 Pulse 96; Resp 27 S; Pulse Ox 98% on 2.5 lpm NC; jd3 05:32 Pulse 97; Resp 24 S; Pulse Ox 98% on 2.5 lpm NC; jd3 07:39 BP 127 / 60; Pulse 95; Resp 22; Pulse Ox 97% on 2.5 lpm NC; ph 03/15 22:10 Body Mass Index 17.09 (57.15 kg, 182.88 cm) aj1 MDM: 03/15 22:20 Patient medically screened. cp 23:00 Differential Diagnosis: Bronchitis Influenza Viral Syndrome Pneumonia Other pulmonary cp embolism, COPD exacerbation. 03/16 02:11 Data reviewed: vital signs, nurses notes, lab test result(s), EKG, radiologic studies, cp CT scan, plain films, I have discussed the patient's presentation/case with the attending Emergency Department Physician; and as a result, I will discharge patient. 02:11 Test interpretation: by ED physician or midlevel provider: ECG, plain radiologic cp studies, chest xray negative for infiltrates. 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 Response to treatment: the patient's symptoms have markedly improved after treatment, and as a result, I will discharge patient. 03/15 22:22 Order name: Basic Metabolic Panel; Complete Time: 23:39 cp 03/15 23:40 Interpretation: Normal except: GLUC 127. cp 03/15 22:22 Order name: CBC with Diff; Complete Time: 23:39 cp 03/16 00:20 Interpretation: Normal except: WBC 13.8; MCV 94.2; RDW 15.8; AVI% 80.7; LYM% 5.7; MN% cp 12.9; NEUT A 11.1; MNA 1.8. 03/15 22:22 Order name: LFT's; Complete Time: 23:39 cp 03/16 00:21 Interpretation: Normal except: ALB 2.8; GLOB 4.1; A/G 0.7. cp 03/15 22:22 Order name: Magnesium; Complete Time: 23:39 cp 03/16 00:21 Interpretation: Abnormal: MG 1.7. cp 03/15 22:22 Order name: NT PRO-BNP; Complete Time: 23:39 cp 03/15 22:22 Order name: PT-INR; Complete Time: 23:39 cp 03/15 22:22 Order name: Troponin (emerg Dept Use Only); Complete Time: 23:39 cp 03/16 00:23 Interpretation: Within normal limits: TROPED < 0.02. cp 03/15 22:22 Order name: Influenza Screen (a \T\ B); Complete Time: 23:39 cp 03/16 00:23 Interpretation: Reviewed. cp 03/15 22:22 Order name: Blood Culture Adult (2) cp 03/15 22:22 Order name: Procalcitonin; Complete Time: 23:39 cp 03/16 00:22 Interpretation: Within normal limits: Reviewed. cp 03/15 22:22 Order name: Lactate; Complete Time: 23:39 cp 03/16 00:22 Interpretation: Within normal limits: LAC 1.7; Reviewed. cp 03/15 22:30 Order name: Urine Microscopic Only; Complete Time: 00:44 cp 03/16 00:48 Interpretation: Reviewed. cp 03/15 22:30 Order name: Urine Culture cp 03/15 23:36 Order name: Urine Dipstick--Ancillary (enter results); Complete Time: 23:43 cm6 03/15 23:44 Interpretation: Normal except: USPGR >1.030; UPROT 1+. cp 03/15 22:22 Order name: XRAY Chest (1 view) cp 03/15 22:22 Order name: EKG; Complete Time: 22:24 cp 03/15 22:22 Order name: Cardiac monitoring; Complete Time: 22:32 cp 03/15 22:22 Order name: EKG - Nurse/Tech; Complete Time: 22:35 cp 03/15 22:22 Order name: IV Saline Lock; Complete Time: 22:32 cp 03/15 22:22 Order name: Labs collected and sent; Complete Time: 22:32 cp 03/15 22:22 Order name: O2 Per Protocol; Complete Time: 22:32 cp 03/15 22:22 Order name: O2 Sat Monitoring; Complete Time: 22:33 cp 03/15 22:30 Order name: Urine Dipstick-Ancillary (obtain specimen); Complete Time: 23:14 cp 03/15 23:44 Order name: CT Chest For PE Angio cp EC/03 22:49 Rate is 119 beats/min. Rhythm is regular. CO interval is normal. QRS interval is cp normal. QT interval is normal. T waves are Inverted in lead aVL. Interpreted by me. Reviewed by me. Administered Medications: 22:48 Drug: Xopenex (3) 1.25 mg Route: Inhalation; jd3 03/16 02:56 Follow up: Response: No adverse reaction [facility] 03/15 22:48 Drug: NS 0.9% (30 ml/kg) 30 ml/kg Route: IV; Rate: bolus; Site: right antecubital; jd3 03/16 02:55 Follow up: Response: No adverse reaction; IV Status: Completed infusion jd3 03/15 23:49 Drug: Magnesium Sulfate 1 grams Route: IVPB; Infused Over: 1 hrs; Site: right [facility] antecubital; 03/16 00:45 Follow up: Response: No adverse reaction; IV Status: Completed infusion jd3 01:08 Drug: LevaQUIN 750 mg Route: PO; jd3 02:00 Follow up: Response: No adverse reaction jd3 01:08 Drug: SOLU-Medrol 125 mg Route: IVP; Site: right antecubital; jd3 02:00 Follow up: Response: No adverse reaction jd3 Disposition: 19:03 Co-signature as Attending Physician, Lior Monson MD Available for consultation at ps1 all times. Signing chart for administrative purposes. Not an endorsement of care. . Disposition: 03/16/19 02:12 Discharged to Home. Impression: Chronic obstructive pulmonary disease with acute lower respiratory infection. - Condition is Stable. - Discharge Instructions: Chronic Obstructive Pulmonary Disease Exacerbation. - Prescriptions for ipratropium- albuterol 0.5 mg-3 mg(2.5 mg base)/3 mL Inhalation solution for nebulization - inhale 3 milliliter by NEBULIZATION route 4 times per day As needed; 1 box. Levaquin 750 mg Oral Tablet - take 1 tablet by ORAL route once daily for 7 days start taking before bedtime 03-16-2019; 6 tablet. Prednisone 20 mg Oral Tablet - take 3 tablet by ORAL route once daily for 5 days; 15 tablet. - Medication Reconciliation Form, Thank You Letter, Antibiotic Education, Prescription Opioid Use form. - Follow up: Private Physician; When: 2 - 3 days; Reason: Recheck today's complaints. - Problem is an acute exacerbation. - Symptoms have improved. Signatures: Dispatcher [employer] EDMS Ale Heath RN RN aj1 Tamar Borja RN RN ph Paco Atkinson PA PA cp Davies, Jonathon, RN RN jLior Bermudez MD MD ps1 Corrections: (The following items were deleted from the chart) 00:19 00:20 Normal except: WBC 13.8; MCV 94.2; RDW 15.8; AVI% 80.7; LYM% 5.7; MN% 12.9; NEUT cp A 11.1. cp 08:36 02:12 03/16/2019 02:12 Discharged to Home. Impression: Chronic obstructive pulmonary ph disease with acute lower respiratory infection. Condition is Stable. Forms are Medication Reconciliation Form, Thank You Letter, Antibiotic Education, Prescription Opioid Use. Follow up: Private Physician; When: 2 - 3 days; Reason: Recheck today's complaints. Problem is an acute exacerbation. Symptoms have improved. cp
--- NOTE | 2019-03-16 08:38 | RAD REPORT ---
EXAM DESCRIPTION: RAD - Chest Single View - 03/15/2019 10:53 pm CLINICAL HISTORY: Cough, shortness of breath COMPARISON: July 2018 TECHNIQUE: AP portable chest image was obtained 2249 hours . FINDINGS: Fibrotic and hyperexpanded lung [place] are present. Diaphragm is flattened. No peripheral mass or consolidation. Hilar regions are similar to comparison. No mass or consolidation. Severity of chronic lung disease could mask interstitial edema or infiltrate. Trachea is midline. Heart and vasculature are normal. No measurable pleural effusion and no pneumotho rax. No acute bony abnormality seen. No acute aortic findings suspected. IMPRESSION: Baseline COPD pattern with no focal mass or consolidation. Extent of chronic disease could mask early stage interstitial edema or infiltrate.
[2019-03-16 08:50] VITALS: TEMP 98.9
[2019-03-16 08:56] VITALS: BP 127/60; O2SAT 97
--- NOTE | 2019-03-16 14:51 | EKG ---
Test Date: 2019-03-15 Test Time: 22:38:53 Preschool Director: HERBERT MEASUREMENT RESULTS: Intervals: Rate: 119 AL: 152 QRSD: 88 QT: 324 QTc: 455 [place]: P: 88 AL: 152 QRS: 81 T: 85 INTERPRETIVE STATEMENTS: Sinus tachycardia Otherwise normal ECG Compared to ECG 07/18/2018 17:31:48 Sinus rhythm no longer present Electronically Signed On 03-16-19 14:50:15 TRANSPORT TRUCK DRIVER by Flaco Guallpa
--- NOTE | 2019-03-18 12:33 | RAD REPORT ---
EXAM DESCRIPTION: CT - Chest For Pe Angio - 03/16/2019 5:23 am CLINICAL HISTORY: SOB; Productive cough TECHNIQUE: Contiguous axial images obtained through the chest during angiographic phase following th e uneventful administration of IV contrast. Sagittal and coronal reformatted images were provided. NM P reformatted images were provided. This exam was performed according to our departmental dose-optimization program, which includes autom ated exposure control, adjustment of the mA and/or kV according to patient size and/or use of iterati ve reconstruction technique. COMPARISON: 07/19/2017 FINDINGS: Diagnostic quality: There is good opacification of the pulmonary arterial tree. Motion art ifact degrades image quality and limits evaluation of segmental and subsegmental vessels. Lungs: Mild centrilobular emphysema with an upper lobe predominance. Minimal biapical pleural parench ymal scar. Bilateral peribronchial thickening. Right greater than left basilar mucous plugging. Patch y multifocal reticulonodular opacities, right greater than left. Pleura: No effusion. No pneumothorax. Heart and pericardium: The heart is normal in size. Coronary artery calcification. Minimal pericardia l fluid. Mediastinum and mark: No pathologically enlarged lymph nodes. Lower neck and chest wall: Unremarkable Vessels: No central pulmonary arterial filling defects. Moderate atherosclerotic disease. No thoracic aortic aneurysm. Upper abdomen: Unremarkable Bones: Thoracic dextroscoliosis and multilevel spondylosis. No acute fracture. IMPRESSION: 1. Motion artifact degrades image quality and limits evaluation of segmental and subse gmental vessels. No central pulmonary embolic disease. 2. Findings compatible with bronchitis/bronchiolitis. Right greater than left basilar mucous pluggi ng. Patchy multifocal reticulonodular infiltrates, right greater than left. 3. Other findings as above. Electronically signed by: Maria Del Carmen Mcconnell MD 03/16/2019 1:47 AM WRECKER DRIVER Due to temporary technical issues with the PACS/Fluency reporting system, reports are being signed by the in house radiologist as a courtesy to ensure prompt reporting. The interpreting radiologist is f ully responsible for the content of the report.
== END 2019-03-16 08:36 | disposition home or self-care (01) ==
LOC: ER 21:47
DX: J44.0 Chronic obstructive pulmonary disease with (acute) lower respiratory infection (principal); I10 Essential (primary) hypertension; F17.210 Nicotine dependence, cigarettes, uncomplicated; Z88.1 Allergy status to other antibiotic agents; Z88.2 Allergy status to sulfonamides
CPT/HCPCS: 96365; 96361; 93005; 87040 ×2; 85025; 87086; 80048; 36415; 83735; 85610; 80076; 83605; 84484; 84145; 83880; 87804 ×2; 71275; 71045; 96375; 99285; Q9967; J3475; J7030 ×2; J7040; J2930; 81003; 81015; 87088; 96366

== ENCOUNTER 2019-04-25 12:16 | Observation (INO) | payer OTHER ==
[2019-04-25] MEDS ORDERED: NA CHLORIDE 0.9% 1,000 ML ONE ×2 (14:07→15:22)
--- NOTE | 2019-04-25 14:20 | RAD REPORT ---
EXAM DESCRIPTION: RAD - Chest Single View - 04/25/2019 2:13 pm CLINICAL HISTORY: COPD Chest pain. COMPARISON: Chest Single View dated 03/15/2019; Chest Pa And Lat (2 Views) dated 07/19/2018; Chest Singl e View dated 07/18/2018; Chest Pa And Lat (2 Views) dated 02/08/2018 FINDINGS: Portable technique limits examination quality. Diffuse COPD is present. The heart is normal in size. No displaced fractures.Mild thoracic dextroscol iosis. IMPRESSION: Mild diffuse COPD
[2019-04-25 14:37] LABS: Basophils % 0.6 % (0-1.3); Hematocrit 45.7 % (39.6-49.0); Lymphocytes % 15.6 % (15.3-44.8); MPV 9.4 fL (7.6-11.3); RBC Red Blood Cell Count 4.65 M/uL (4.33-5.43)
[2019-04-25 14:39] LABS: ALT/SGPT 61 U/L (12-78); AST/SGOT 59 U/L (15-37); Albumin 3.5 g/dL (3.4-5.0); Alkaline Phosphatase 70 U/L (45-117); BUN Blood Urea Nitrogen 7 mg/dL (7-18); Bicarbonate 28 mmol/L (21-32); Bilirubin Direct 0.2 mg/dL (0-0.2); Bilirubin Total 0.6 mg/dL (0.2-1.0); Glucose Level 90 mg/dL (74-106); Magnesium 1.7 mg/dL (1.8-2.4); NT PRO-BNP 669 pg/mL (<125); Potassium 4.2 mmol/L (3.5-5.1); Protein, Total 7.1 g/dL (6.4-8.2); Sodium Level 135 mmol/L (136-145); Troponin (Emerg Dept Use Only) 0.05 ng/mL (0.0-0.045)
[2019-04-25 14:41] LABS: Protime INR 0.89
--- NOTE | 2019-04-25 18:11 | ER ---
Nurse's Notes [facility] Name: Bossman Gooden Age: 74 yrs Sex: Male : 1945 Arrival Date: 04/25/2019 Time: 12:20 Bed 14 Private MD: Christian Mark Diagnosis: Weakness;Non-ST elevation (NSTEMI) myocardial infarction;Abnormal weight loss Presentation: 04/25 12:35 Presenting complaint: Patient states: I was the GI center today and they told me I was ca1 dehydrated and they don't have the capability to rehydrate me. I have constant and constant diarrhea for about 3 weeks and but has gotten worse. I lost 35 lbs in a month. Reports Nausea and "a bit" of abdominal pain. Denies vomiting and fever. Transition of care: patient was not received from another setting of care. Onset of symptoms was April 25, 2019. Risk Assessment: Do you want to hurt yourself or someone else? Patient reports no desire to harm self or others. Initial Sepsis Screen: Does the patient meet any 2 criteria? No. Patient's initial sepsis screen is negative. Does the patient have a suspected source of infection? No. Patient's initial sepsis screen is negative. Care prior to arrival: None. 12:35 Method Of Arrival: Wheelchair ca1 12:35 Acuity: GUANACO 3 ca1 Historical: - Allergies: 12:40 Keflex; ca1 12:40 Sulfa (Sulfonamide Antibiotics); ca1 - Home Meds: 12:44 Prednisone Oral [Active]; Primadone [Active]; Klor-Con 10 Oral [Active]; Vitamon B ca1 [Active]; sertraline oral oral [Active]; Diphenoxylate-Atropine Oral [Active]; Ventolin HFA inhalation Nebulizer [Active]; Trelegy [Active]; - PMHx: 12:40 Asthma; CAD; COPD; EDEMA; Emphysema; ESSENTIAL TREMORS; High Cholesterol; Hypertension; ca1 meningitis; Pneumonia; - PSHx: 12:40 Stents on Legs; Tonsillectomy; ca1 - Immunization history:: Adult Immunizations up to date, Pneumococcal vaccine is up to date, Flu vaccine is up to date. - Coronavirus screen:: The patient has NOT traveled to [place] in the past 14 days. The patient has NOT had contact with known/suspected case of Coronavirus?. - Social history:: Smoking status: Patient reports the use of cigarette tobacco products, 5-6 cigarettes a day. - Ebola Screening: : Patient negative for fever greater than or equal to 101.5 degrees Fahrenheit, and additional compatible Ebola Virus Disease symptoms Patient denies exposure to infectious person Patient denies travel to an Ebola-affected area in the 21 days before illness onset No symptoms or risks identified at this time. Screenin:45 Abuse screen: Denies threats or abuse. Denies injuries from another. Nutritional hb screening: No deficits noted. Tuberculosis screening: No symptoms or risk factors identified. Fall Risk None identified. Assessment: 13:00 General: Appears in no apparent distress. Behavior is calm, cooperative. Pain: Denies hb pain. Neuro: Level of Consciousness is awake, alert, obeys commands, Oriented to person, place, time, situation. Cardiovascular: Heart tones S1 S2 present Capillary refill < 3 seconds Patient's skin is warm and dry. Respiratory: Airway is patent Respiratory effort is even, unlabored, Respiratory pattern is regular, symmetrical, Breath sounds are clear bilaterally. GI: Reports diarrhea, nausea. : No signs and/or symptoms were reported regarding the genitourinary system. EENT: No signs and/or symptoms were reported regarding the EENT system. Derm: Skin is pink, warm \\T\\ dry. Musculoskeletal: No signs and/or symptoms reported regarding the musculoskeletal system. 14:00 Reassessment: Patient appears in no apparent distress at this time. Patient and/or hb family updated on plan of care and expected duration. Pain level reassessed. Patient is alert, oriented x 3, equal unlabored respirations, skin warm/dry/pink. 15:00 Reassessment: Patient appears in no apparent distress at this time. No changes from hb previously documented assessment. Patient and/or family updated on plan of care and expected duration. Pain level reassessed. Patient is alert, oriented x 3, equal unlabored respirations, skin warm/dry/pink. 16:00 Reassessment: Patient appears in no apparent distress at this time. Patient and/or hb family updated on plan of care and expected duration. Pain level reassessed. Patient is alert, oriented x 3, equal unlabored respirations, skin warm/dry/pink. 16:58 Reassessment: Patient appears in no apparent distress at this time. Patient and/or hb family updated on plan of care and expected duration. Pain level reassessed. Patient is alert, oriented x 3, equal unlabored respirations, skin warm/dry/pink. 18:01 Reassessment: Patient appears in no apparent distress at this time. Patient and/or hb family updated on plan of care and expected duration. Pain level reassessed. Patient is alert, oriented x 3, equal unlabored respirations, skin warm/dry/pink. 18:55 Reassessment: Ok to eat and drinking coffee per Dr. García, sandwich and cup of coffee hb provided as requested. Vital Signs: 12:40 BP 98 / 66; Pulse 104; Resp 16 S; Temp 98.5(O); Pulse Ox 95% on R/A; Weight 53.52 kg ca1 (R); Height 6 ft. (182.88 cm) (R); Pain 0/10; 14:00 BP 108 / 68; Pulse 84; Resp 15; Pulse Ox 97% ; kj1 15:31 BP 106 / 77; Pulse 70; Resp 17; Pulse Ox 100% on R/A; kj1 16:58 BP 137 / 72; Pulse 73; Resp 16; Pulse Ox 99% on R/A; hb 18:01 BP 141 / 79; Pulse 77; Resp 15; Pulse Ox 100% on R/A; hb 19:00 BP 145 / 72; Pulse 72; Resp 16; Pulse Ox 99% on R/A; rv 20:00 BP 149 / 71; Pulse 67; Resp 16; Pulse Ox 98% on R/A; rv 12:40 Body Mass Index 16.00 (53.52 kg, 182.88 cm) ca1 ED Course: 12:20 Patient arrived in ED. ag5 12:21 Christian Mark MD is Private Physician. ag5 12:23 Yoni García MD is Attending Physician. kdr 12:38 Triage completed. ca1 12:40 Arm band placed on right wrist. ca1 13:45 Patient has correct armband on for positive identification. Placed in gown. Bed in low hb position. Call light in reach. Side rails up X 1. 14:01 Shirin Hsu, RN is Primary Nurse. hb 14:02 Inserted MIDLINE inserted to R basilic vein. 18 gauge cm powerglide. PT tolerated well. ss Blood return noted, flushes easily. 16:01 Christian Mark MD is Referral Physician. kdr 18:09 Paulette Tafoya MD is Hospitalizing Provider. kdr 20:12 No provider procedures requiring assistance completed. Patient admitted, IV remains in rv place. Administered Medications: 14:07 Drug: NS 0.9% 1000 ml Route: IV; Rate: 1 bolus; Site: right antecubital; hb 15:27 Follow up: Response: No adverse reaction; IV Status: Completed infusion; IV Intake: ah 1000ml 15:34 Drug: NS 0.9% 1000 ml Route: IV; Rate: 125 ml/hr; Site: right antecubital; hb 20:20 Follow up: IV Status: Completed infusion rv 18:54 Drug: Aspirin Chewable Tablet 324 mg Route: PO; hb 20:20 Follow up: Response: No adverse reaction rv Intake: 15:27 IV: 1000ml; Total: 1000ml. ah Outcome: 16:01 Discharge ordered by MD. kdr 18:09 Decision to Hospitalize by Provider. kdr 20:13 Admitted to Tele accompanied by nurse, via wheelchair, room 409, with chart, Report rv called to brodie 20:13 Condition: good 20:13 Discharge instructions given to patient, Instructed on the need for admit, Demonstrated understanding of instructions. 20:21 Patient left the ED. rv Signatures: Yoni García MD MD kdr Gris Bowens RN RN Shirin Hsu RN RN Obdulio Tinsley RN RN Aida Santos RN RN ca1 [place], Ajare agJoslyn Murray kj1 Tameka Hill RN RN
--- NOTE | 2019-04-25 18:12 | EDPHYS ---
Physician Documentation [facility] Name: Bossman Gooden Age: 74 yrs Sex: Male : 1945 Arrival Date: 04/25/2019 Time: 12:20 Bed 14 Private MD: Christian Mark ED Physician Yoni García HPI: 04/25 15:23 This 74 yrs old Male presents to ER via Wheelchair with complaints of kdr Dehydration. 15:23 The patient feels dehydrated and weak. He has had persistent diarrhea for a week or kdr more. He denies focal pain but states he has lost 35 pounds in a month. He has had significant and complete scans in the last few weeks but has not been given a diagnosis. He has been a pack a day smoker for 59 years. Onset: The symptoms/episode began/occurred gradually, 1 month(s) ago. Severity of symptoms: At their worst the symptoms were moderate in the emergency department the symptoms are unchanged. The patient has experienced similar episodes in the past, chronically. The patient has been recently seen by a physician:. Historical: - Allergies: 12:40 Keflex; ca1 12:40 Sulfa (Sulfonamide Antibiotics); ca1 - Home Meds: 12:44 Prednisone Oral [Active]; Primadone [Active]; Klor-Con 10 Oral [Active]; Vitamon B ca1 [Active]; sertraline oral oral [Active]; Diphenoxylate-Atropine Oral [Active]; Ventolin HFA inhalation Nebulizer [Active]; Trelegy [Active]; - PMHx: 12:40 Asthma; CAD; COPD; EDEMA; Emphysema; ESSENTIAL TREMORS; High Cholesterol; Hypertension; ca1 meningitis; Pneumonia; - PSHx: 12:40 Stents on Legs; Tonsillectomy; ca1 - Immunization history:: Adult Immunizations up to date, Pneumococcal vaccine is up to date, Flu vaccine is up to date. - Coronavirus screen:: The patient has NOT traveled to [place] in the past 14 days. The patient has NOT had contact with known/suspected case of Coronavirus?. - Social history:: Smoking status: Patient reports the use of cigarette tobacco products, 5-6 cigarettes a day. - Ebola Screening: : Patient negative for fever greater than or equal to 101.5 degrees Fahrenheit, and additional compatible Ebola Virus Disease symptoms Patient denies exposure to infectious person Patient denies travel to an Ebola-affected area in the 21 days before illness onset No symptoms or risks identified at this time. ROS: 15:23 Constitutional: Negative for fever, chills, - he has had about 35 poounds of weight kdr loss in the last month Eyes: Negative for injury, pain, redness, and discharge, ENT: Negative for injury, pain, and discharge, Neck: Negative for injury, pain, and swelling, Cardiovascular: Negative for chest pain, palpitations, and edema, Respiratory: Negative for shortness of breath, cough, wheezing, and pleuritic chest pain, Abdomen/GI: Negative for abdominal pain, nausea, vomiting, diarrhea, and constipation, Back: Negative for injury and pain, : Negative for injury, bleeding, discharge, and swelling, MS/Extremity: Negative for injury and deformity, Skin: Negative for injury, rash, and discoloration, Psych: Negative for depression, anxiety, suicide ideation, homicidal ideation, and hallucinations, Allergy/Immunology: Negative for hives, rash, and allergies, Endocrine: Negative for neck swelling, polydipsia, polyuria, polyphagia, and marked weight changes, Hematologic/Lymphatic: Negative for swollen nodes, abnormal bleeding, and unusual bruising. 15:23 Neuro: Positive for weakness, Negative for altered mental status, dizziness, hearing loss, loss of consciousness, numbness, seizure activity, speech changes, syncope, near syncope, tingling. 15:23 Psych: Positive for Exam: 15:23 Constitutional: This is a well developed, well nourished patient who is awake, alert, kdr and in no acute distress. Head/Face: Normocephalic, atraumatic. Eyes: Pupils equal round and reactive to light, extra-ocular motions intact. Lids and lashes normal. Conjunctiva and sclera are non-icteric and not injected. Cornea within normal limits. Periorbital areas with no swelling, redness, or edema. Neck: Trachea midline, no thyromegaly or masses palpated, and no cervical lymphadenopathy. Supple, full range of motion without nuchal rigidity, or vertebral point tenderness. No Meningismus. Chest/axilla: Normal chest wall appearance and motion. Nontender with no deformity. No lesions are appreciated. Cardiovascular: Regular rate and rhythm with a normal S1 and S2. No gallops, murmurs, or rubs. Normal PMI, no JVD. No pulse deficits. Respiratory: Lungs have equal breath sounds bilaterally, clear to auscultation and percussion. No rales, rhonchi or wheezes noted. No increased work of breathing, no retractions or nasal flaring. Abdomen/GI: Soft, non-tender, with normal bowel sounds. No distension or tympany. No guarding or rebound. No evidence of tenderness throughout. Back: No spinal tenderness. No costovertebral tenderness. Full range of motion. Skin: Warm, dry with normal turgor. Normal color with no rashes, no lesions, and no evidence of cellulitis. MS/ Extremity: Pulses equal, no cyanosis. Neurovascular intact. Full, normal range of motion. Neuro: Awake and alert, GCS 15, oriented to person, place, time, and situation. Cranial nerves II-XII grossly intact. Motor strength 5/5 in all extremities. Sensory grossly intact. Cerebellar exam normal. Normal gait. Psych: Awake, alert, with orientation to person, place and time. Behavior, mood, and affect are within normal limits. Vital Signs: 12:40 BP 98 / 66; Pulse 104; Resp 16 S; Temp 98.5(O); Pulse Ox 95% on R/A; Weight 53.52 kg ca1 (R); Height 6 ft. (182.88 cm) (R); Pain 0/10; 14:00 BP 108 / 68; Pulse 84; Resp 15; Pulse Ox 97% ; kj1 15:31 BP 106 / 77; Pulse 70; Resp 17; Pulse Ox 100% on R/A; kj1 16:58 BP 137 / 72; Pulse 73; Resp 16; Pulse Ox 99% on R/A; hb 18:01 BP 141 / 79; Pulse 77; Resp 15; Pulse Ox 100% on R/A; hb 19:00 BP 145 / 72; Pulse 72; Resp 16; Pulse Ox 99% on R/A; rv 20:00 BP 149 / 71; Pulse 67; Resp 16; Pulse Ox 98% on R/A; rv 12:40 Body Mass Index 16.00 (53.52 kg, 182.88 cm) ca1 MDM: 15:23 Data reviewed: vital signs, nurses notes, lab test result(s), radiologic studies. kdr Counseling: I had a detailed discussion with the patient and/or guardian regarding: the historical points, exam findings, and any diagnostic results supporting the discharge/admit diagnosis, lab results, radiology results, the need for outpatient follow up. 16:01 Patient medically screened. [facility] 04/25 13:37 Order name: Basic Metabolic Panel kdr 04/25 13:37 Order name: CBC with Diff kdr 04/25 13:37 Order name: LFT's kdr 04/25 13:37 Order name: Magnesium kdr 04/25 13:37 Order name: NT PRO-BNP kdr 04/25 13:37 Order name: PT-INR kdr 04/25 13:37 Order name: Troponin (emerg Dept Use Only) kdr 04/25 15:22 Order name: Basic Metabolic Panel; Complete Time: 15:43 EDMS 04/25 15:22 Order name: Liver (Hepatic) Function; Complete Time: 15:43 EDMS 04/25 15:22 Order name: Troponin (Emerg Dept Use Only); Complete Time: 15:43 EDDC 04/25 15:22 Order name: NT PRO-BNP; Complete Time: 15:43 EDDC 04/25 15:22 Order name: Magnesium; Complete Time: 15:43 EDDC 04/25 15:24 Order name: CBC with Automated Diff; Complete Time: 15:43 EDDC 04/25 15:26 Order name: Protime (+INR); Complete Time: 15:43 EDDC 04/25 13:37 Order name: XRAY Chest (1 view) [facility] 04/25 13:37 Order name: Cardiac monitoring; Complete Time: 14:02 [facility] 04/25 13:37 Order name: IV Saline Lock; Complete Time: 14:02 [facility] 04/25 13:37 Order name: Labs collected and sent; Complete Time: 14:07 [facility] 04/25 13:37 Order name: O2 Per Protocol; Complete Time: 14:02 [facility] 04/25 13:37 Order name: O2 Sat Monitoring; Complete Time: 14:02 [facility] 04/25 14:18 Order name: Labs - recollect needed: cbc; Complete Time: 15:27 04/25 15:53 Order name: RAD; Complete Time: 16:02 EDDC 04/25 16:06 Order name: Troponin (emerg Dept Use Only) [facility] 04/25 16:07 Order name: EKG - Nurse/Tech; Complete Time: 17:15 kdr 04/25 18:02 Order name: Troponin (Emerg Dept Use Only); Complete Time: 18:41 EDMS 04/25 20:10 Order name: CT EDMS Administered Medications: 14:07 Drug: NS 0.9% 1000 ml Route: IV; Rate: 1 bolus; Site: right antecubital; hb 15:27 Follow up: Response: No adverse reaction; IV Status: Completed infusion; IV Intake: ah 1000ml 15:34 Drug: NS 0.9% 1000 ml Route: IV; Rate: 125 ml/hr; Site: right antecubital; hb 20:20 Follow up: IV Status: Completed infusion rv 18:54 Drug: Aspirin Chewable Tablet 324 mg Route: PO; hb 20:20 Follow up: Response: No adverse reaction rv Disposition: 04/25/19 18:09 Hospitalization ordered by Paulette Tafoya for Observation. Preliminary diagnosis are Weakness, Non-ST elevation (NSTEMI) myocardial infarction, Abnormal weight loss. - Bed requested for Telemetry/MedSurg (observation). - Status is Observation. rv - Condition is Fair. - Problem is new. - Symptoms are unchanged. Signatures: Dispatcher [employer] EDDC Nieves Newell RN Yoni Taylor MD MD [facility] Marlen Abad RN RN Shirin Hsu RN RN hb Vicente, Ronaldo, RN RN Aida Santos RN RN ca1 Harris, Amy RN Corrections: (The following items were deleted from the chart) 16:07 16:01 04/25/2019 16:01 Discharged to Home. Impression: Weakness; Dehydration. Condition kdr is Fair. Forms are Medication Reconciliation Form, Thank You Letter, Antibiotic Education, Prescription Opioid Use. Follow up: Christian Mark; When: 2 - 3 days; Reason: If symptoms return, Further diagnostic work-up, Recheck today's complaints, Continuance of care, Re-evaluation by your physician. Problem is an ongoing problem. Symptoms have improved. kdr 19:44 18:09 Hospitalization Ordered by Paulette Tafoya MD for Observation. Preliminary diagnosis is christa Weakness; Non-ST elevation (NSTEMI) myocardial infarction; Abnormal weight loss. Bed requested for Telemetry/MedSurg (observation). Status is Observation. Condition is Fair. Problem is new. Symptoms are unchanged. kdr 20:21 19:44 04/25/2019 18:09 Hospitalization Ordered by Paulette Tafoya MD for Observation. rv Preliminary diagnosis is Weakness; Non-ST elevation (NSTEMI) myocardial infarction; Abnormal weight loss. Bed requested for Telemetry/MedSurg (observation). Status is Observation. Condition is Fair. Problem is new. Symptoms are unchanged. mw
[2019-04-25] MEDS ORDERED: ALPRAZOLAM 0.25 MG TABLET PO PRN (18:29)
[2019-04-25] MEDS ORDERED: ONDANSETRON 4 MG/2 ML VIAL IV PRN (18:29)
[2019-04-25] MEDS ORDERED: ACETAMINOPHEN 500 MG TAB PO PRN (18:29)
[2019-04-25] MEDS ORDERED: ASPIRIN 81 MG CHEWABLE TABLET ONE (18:49)
[2019-04-25] MEDS: NA CHLORIDE 0.9% 1,000 ML IV SCH ×2 (19:00→21:31)
--- NOTE | 2019-04-25 19:24 | RAD REPORT ---
EXAM DESCRIPTION: CT - Abdomen Pelvis W Contrast - 04/25/2019 7:00 pm CLINICAL HISTORY: diarrhea COMPARISON: Abdomen Pelvis W Contrast dated 09/07/2018 TECHNIQUE: Biphasic, helical CT imaging of the abdomen and pelvis was performed following 100 ml non -ionic IV contrast. No oral contrast administered. All CT scans are performed using dose optimization technique as appropriate and may include automated exposure control or mA/KV adjustment according to patient size. FINDINGS: COPD changes are present in each lung base with no acute pleural or parenchymal process. N o cardiomegaly or pericardial effusion. The liver, spleen, and pancreas show no suspicious findings. Gallbladder is contracted. Stones can be occult on CT imaging. No biliary tree dilatation. Symmetric renal function is seen with no hydronephrosis or suspicious renal mass. No pyelonephritis o r acute parenchymal process. Bilateral renal cysts are present. Largest on the left is approximately 5.6 cm. This is not significantly different from the comparison. No active renal parenchymal process seen. Urinary bladder wall thickening is present. This is similar to the prior study and probably bas kathleen. No adrenal abnormalities. Prostate calcifications are present. No dilated bowel loops or bowel wall thickening. No acute GI process identifiable. There is dense spr ay artifact related to a metal object in the bowel right-sided pelvis. This appears to be a small bow el camera/pill cam. This can be correlated with history. Left-sided diverticulosis is present without diverticulitis. No free air, free fluid or inflammatory stranding. No hernia, mass or bulky lymphad enopathy. No suspicious bony findings. IMPRESSION: No bowel obstruction, free air or emergent abdomen or pelvis finding. No occult malignan cy findings. Urinary bladder wall thickening is present possibly related to prostate outlet obstructive process. T he bladder is normal in size. No wall thickening is similar to August 2018. Metallic object in the bowel right abdomen may be a pill cam. This can be correlated with history.
[2019-04-25] MEDS: ALBUTEROL 2.5 MG/3 ML NEB SOL NEB SCH (22:55)
[2019-04-25] MEDS: IPRATROPIUM BROM 0.5MG/2.5ML NEB SCH (22:55)
--- NOTE | 2019-04-25 23:21 | HP ---
Date of Admission: 04/25/2019 Chief Complaint: Generalized weakness. History Of Present Illness: This patient is a 74-year-old gentleman who presented for generalized weakness. He has a history of COPD, chronic diarrhea , and possible anxiety and depression. This patient has been suffering from diarrhea for the last month. His stool is watery and loose. There is no visible blood. There is no abdominal pain. No nausea or vomiting. He had bowel movement 3-4 times each day. He lost 35 pounds of body weight over 1 month. He has been feeling fatigue and weak. He has been feeling hungry, but he does not have a good appetite. This patient has been following GI physician , Dr. Renteria. GI physician performed colonoscopy, which is unremarkable per patient. Video capsule was ordered and the patient just swallowed yesterday. The patient has been feeling extremely weak and tired after preparation for GI video capsule. He almost could not get up. He spends a lot of time on the chair and bed. No fever or chills. He has some sore throat without much cough. He is an active smoker. The patient presented to the emergency room for extremity weakness. In the ED, his blood pressure is 98/66, pulse 104, respiratory rate 16, oxygen saturation 95 on room air. His WBC 6.6 and hemoglobin 15.4. Sodium 135, potassium 4.2, creatinine 0.69. Troponin 0.05. ED physician gave some IV fluid and he is feeling mildly better. He was admitted for further management. Review of Systems: No headaches or dizziness. No hearing or vision change. No nasal congestion. No chest pain or cough. No nausea or vomiting. No abdominal pain. No dysuria or hematuria. For the rest of the review of systems, please see HPI. Home Medications: Reviewed, please see home medication list. Family History: Noncontributory. Allergies: PATIENT IS ALLERGIC TO CEPHALEXIN. Past Medical History: 1. COPD. 2. Anxiety and depression. 3. Chronic diarrhea. 4. Tobacco abuse. Social History: Patient has been living with his . He is active smoker. No alcohol abuse. Physical Examination: General: Patient awake, alert, in chronic disease status, oriented x3. HEENT: Atraumatic, normocephalic. PERRLA. EOMI. Bilateral temporal wasting. Neck: No JVD. Supple. Chest: Bilateral decreased breath sounds. No wheezing. No respiratory distress. Heart: Normal S1, S2. Regular rhythm and rate. No murmur. Abdomen: Soft, flat. Bowel sounds present. No tenderness. Extremity: No edema. No cyanosis. Extensive muscle wasting. Neuro: Patient awake and alert, oriented x3, nonfocal. Strength 3 to 4/5. Psych: Mildly depressed. Skin: No rashes or eczema. Laboratory Data: WBC 6.6, hemoglobin 15.4, platelet 172. Sodium 135, potassium 4.2, chloride 98, creatinine 0.69, magnesium 1.7, AST 59, ALT of 61, troponin 0.05. ProBNP 669, albumin 3.5. Assessment And Plan: 04/25/19 This patient is 74-year-old gentleman who presented with generalized weakness. He has a history of chronic obstructive pulmonary disease, tobacco abuse, anxiety and depression, and chronic diarrhea. Likely, this patient is suffering from malnutrition from chronic diarrhea and poor intake. He appears to be dehydrated. We started IV fluid. Abdominal CT was ordered. 1. Generalized weakness. This is likely due to chronic diarrhea and malnutrition. PT was ordered. 2. Severe malnutrition. Patient has extensive muscle wasting. Dietitian was consulted. Started IV fluids. Encouraged the patient to eat. 3. Diarrhea. Patient had chronic diarrhea for months. He has been following with Dr. Renteria. Colonoscopy is unremarkable per patient. Capsule video result is pending. I will try to consult GI. C. diff test was ordered 4. Chronic obstructive pulmonary disease, this is stable. No wheezing. Patient requests anthropology instructor consultation. 5. Tobacco abuse. Advised the patient to stop smoking. 6. Anxiety and depression. We will resume home psych medication. 7. Troponin elevation. Troponin 0.05. The patient does not have shortness of breath or chest pain. This is likely secondary to stress. Echo was ordered. 8. Deep venous thrombosis prophylaxis with Lovenox. Further plan will be based on his condition. QT/MODL Voice ID: [id number] MTDD
[2019-04-26] MEDS: IPRATROPIUM BROM 0.5MG/2.5ML NEB SCH ×4 (02:42→21:30)
[2019-04-26] MEDS: ALBUTEROL 2.5 MG/3 ML NEB SOL NEB SCH ×4 (02:42→21:30)
[2019-04-26 04:11] VITALS: BMI 16.0
[2019-04-26] MEDS: NA CHLORIDE 0.9% 1,000 ML IV SCH ×3 (05:00→16:41)
[2019-04-26 07:20] LABS: Basophils % 0.6 % (0-1.3); Hematocrit 39.1 % (39.6-49.0); Lymphocytes % 22.2 % (15.3-44.8); MPV 8.7 fL (7.6-11.3); RBC Red Blood Cell Count 3.94 M/uL (4.33-5.43)
[2019-04-26 07:36] LABS: ALT/SGPT 39 U/L (12-78); AST/SGOT 39 U/L (15-37); Albumin 2.4 g/dL (3.4-5.0); Alkaline Phosphatase 47 U/L (45-117); BUN Blood Urea Nitrogen 8 mg/dL (7-18); Bicarbonate 29 mmol/L (21-32); Bilirubin Total 0.4 mg/dL (0.2-1.0); Glucose Level 88 mg/dL (74-106); Magnesium 1.7 mg/dL (1.8-2.4); Phosphorus 2.9 mg/dL (2.5-4.9); Potassium 3.6 mmol/L (3.5-5.1); Protein, Total 5.2 g/dL (6.4-8.2); Sodium Level 138 mmol/L (136-145)
[2019-04-26] MEDS: ENOXAPARIN 40 MG/0.4 ML SQ SCH (08:49)
[2019-04-26] MEDS ORDERED: POTASSIUM CL SA 10 MEQ TAB PO ONE (09:00)
[2019-04-26] MEDS ORDERED: MAGNESIUM SULFATE 1 gm IVPB 1 GM/100 ML BAG IV ONE (09:00)
--- NOTE | 2019-04-26 09:32 | P.PN ---
Subjective Date of Service: 05/12/19 Chief Complaint: COPD Patient admitted to the hospital for weakness he has been losing some weight I have been following him as an outpatient he has severe COPD far his lungs are concerned he is doing better with trilogy and nebulize bronchodilators I had stopped his Wellbutrin and dial arrest patient still continues to have diarrhea seen by GI denies any fever chills Review of Systems General: Weakness, Other (Significant weight loss) Respiratory: Shortness of Breath Physical Examination - Vital Signs Temperature: 97.7 F Blood Pressure: 134/64 Pulse: 74 Respirations: 18 Pulse Ox (%): 98 - Physical Exam General: Alert, In no apparent distress, Oriented x3 Respiratory: Clear to auscultation bilaterally, Diminished Cardiovascular: No edema, Regular rate/rhythm - Studies Laboratory Data (last 24 hrs) 04/25/19 14:26: WBC 6.6, Hgb 15.4, Hct 45.7, Plt Count 172 04/25/19 14:02: PT 10.5, INR 0.89 04/25/19 14:02: Sodium 135 L, Potassium 4.2, BUN 7, Creatinine 0.69, Glucose 90 , Magnesium 1.7 L, Total Bilirubin 0.6, AST 59 H, ALT 61, Alkaline Phosphatase 70 Assessment & Plan - Problems (Diagnosis) (1) COPD (chronic obstructive pulmonary disease) Status: Acute Plan: PT is well known to me with terminal COPD. c/o weight loss and diarhea. Aw dehydration. NE of sepsis. Labs unremarkable Wellbutrinand Daliresp was stopped. complaint progressive cachecxia from COPD , Alcohol and tobacco use. Stable fro discharge. PRog very poor Qualifiers: COPD type: COPD with acute exacerbation Qualified Code(s): J44.1 - Chronic obstructive pulmonary disease with (acute) exacerbation
--- NOTE | 2019-04-26 09:32 | P.PN ---
Subjective Date of Service: 04/26/19 Chief Complaint: weakness Subjective: No new changes, Doing well Review of Systems General: Weakness, Malaise Eyes: Unremarkable ENT: Unremarkable Respiratory: SOB with Excertion Cardiovascular: Unremarkable Gastrointestinal: Unremarkable Genitourinary: Unremarkable Musculoskeletal: Unremarkable Integumentary: Unremarkable Neurological: Unremarkable Physical Examination - Vital Signs Temperature: 97.7 F Blood Pressure: 134/64 Pulse: 74 Respirations: 18 Pulse Ox (%): 98 - Physical Exam General: Alert, In no apparent distress, Oriented x3, Cooperative HEENT: Atraumatic, Normocephalic, PERRLA Neck: Supple, 2+ carotid pulse no bruit, JVD not distended Respiratory: Clear to auscultation bilaterally, Normal air movement Cardiovascular: No edema, Normal pulses Gastrointestinal: Normal bowel sounds, Hypoactive Musculoskeletal: No clubbing, No swelling, No contractures, No erythema, No tenderness, No warmth, Other (wasting) Integumentary: No rashes, No breakdown, No significant lesion Neurological: Normal speech, Normal strength at 5/5 x4 extr, Normal tone, Sensation intact, Cranial nerves 3-12 intact, Abnormal strength (4/5) - Studies Laboratory Data (last 24 hrs) 04/25/19 14:26: WBC 6.6, Hgb 15.4, Hct 45.7, Plt Count 172 04/25/19 14:02: PT 10.5, INR 0.89 04/25/19 14:02: Sodium 135 L, Potassium 4.2, BUN 7, Creatinine 0.69, Glucose 90 , Magnesium 1.7 L, Total Bilirubin 0.6, AST 59 H, ALT 61, Alkaline Phosphatase 70 Assessment And Plan - Plan Assessment And Plan: 04/25/19 This patient is 74-year-old gentleman who presented with generalized weakness. He has a history of chronic obstructive pulmonary disease, tobacco abuse, anxiety and depression, and chronic diarrhea. Likely, this patient is suffering from malnutrition from chronic diarrhea and poor intake. He appears to be dehydrated. We started IV fluid. Abdominal CT was ordered. 04/26/19: Patient is feeling much better. He feels more energetic. He did not have diarrhea since admission. Waiting for stool sample for C. diff test. Will start oral Darwin to empirically in the setting of recent antibiotics use. Patient declined home health. Plan to discharge him tomorrow morning. Further plan will be based on his condition. 1. Generalized weakness. This is likely due to chronic diarrhea and malnutrition. PT was ordered. improving 2. Severe malnutrition. Patient has extensive muscle wasting. Dietitian was consulted. On IV fluids. Encouraged the patient to eat. 3. Diarrhea. Patient had chronic diarrhea for months. He has been following with Dr. Renteria. Colonoscopy is unremarkable per patient. Capsule video result is pending. C. diff test was ordered. He did not have BM since admission 4. Chronic obstructive pulmonary disease, this is stable. No wheezing. Patient requests balance truer consultation. 5. Tobacco abuse. Advised the patient to stop smoking. 6. Anxiety and depression. On home psych medication. 7. Troponin elevation. Troponin 0.05. The patient does not have shortness of breath or chest pain. This is likely secondary to stress. Echo was ordered. 8. Deep venous thrombosis prophylaxis with Lovenox. Discharge Plan: Home Plan to discharge in: 24 Hours - Code Status/Comfort Care Code Status Assessed: Yes Code Status: Full Code Time Spent Managing PTS Care (In Minutes): 28
[2019-04-26 11:13] LABS: Urine Appearance CLEAR; Urine Bilirubin NEGATIVE (NEG); Urine Blood NEGATIVE (NEG); Urine Color DK YELLOW; Urine Glucose NEGATIVE (NEG); Urine Protein NEGATIVE (NEG); Urine Specific Gravity >=1.030 (1.005-1.030); Urine pH 5.5 (5.0-7.0)
[2019-04-26 11:22] LABS: Urine Microscopic Reflex NO UMIC
--- NOTE | 2019-04-26 13:36 | EKG ---
Test Date: 2019-04-25 Test Time: 17:09:31 Spa Assistant Manager: OCTAVIA MEASUREMENT RESULTS: Intervals: Rate: 74 RI: 164 QRSD: 86 QT: 422 QTc: 468 Gamaliel: P: 82 RI: 164 QRS: 82 T: 97 INTERPRETIVE STATEMENTS: Normal sinus rhythm Normal ECG Compared to ECG 03/15/2019 22:38:53 Sinus tachycardia no longer present Electronically Signed On 04-26-19 13:36:07 CREATIVE INTERN by Farooq Hill
[2019-04-26] MEDS: metroNIDAZOLE 500 MG TABLET PO SCH ×2 (14:35→20:26)
--- NOTE | 2019-04-26 15:22 | ECHO ---
HEIGHT: 6 ft 0 in WEIGHT: 117 lb 15.862 oz DATE OF STUDY: 04/26/[address]: Paulette Tafoya MD 2-DIMENSIONAL: YES M.MODE: YES DOPPLER: YES COLOR FLOW: YES TDS: YES PORTABLE:NO DEFINITY: NO BUBBLE STUDY: NO DIAGNOSIS: SHORTNESS OF BREATH CARDIAC HISTORY: CATHERIZATION: NO SURGERY: NO PROSTHETIC VALVE: NO PACEMAKER: NO MEASUREMENTS (cm) DIASTOLIC (NORMALS) SYSTOLIC (NORMALS) IVSd 1.0 (0.6-1.2) LA Diam 4.0 (1.9-4.0) LVEF 57% LVIDd 4.2 (3.5-5.7) LVIDs 2.9 (2.0-3.5) %FS 30% LVPWd 1.1 (0.6-1.2) Ao Diam (2.0-3.7) 2 DIMENSIONAL ASSESSMENT: RIGHT ATRIUM: NORMAL LEFT ATRIUM: NORMAL RIGHT VENTRICLE: NORMAL LEFT VENTRICLE: NORMAL TRICUSPID VALVE: NORMAL MITRAL VALVE: NORMAL PULMONIC VALVE: NORMAL AORTIC VALVE: NORMAL PERICARDIAL EFFUSION: NONE AORTIC ROOT: NORMAL LEFT VENTRICULAR WALL MOTION: NORMAL DOPPLER/COLOR FLOW: NORMAL COMMENTS: NORMAL 2D ECHOCARDIOGRAM WITH DOPPLER. TECHNOLOGIST: Yarely KAN
[2019-04-26] MEDS: guaiFENesin 100 MG/5 ML UCUP PO PRN (17:41)
[2019-04-26] MEDS ORDERED: POLYETHYL GLY 3350 17 GM/DOSE PO ONE (18:51)
[2019-04-26] MEDS ORDERED: PANTOPRAZOLE 40MG TABLET PO ONE (18:51)
--- NOTE | 2019-04-26 18:55 | P.PN ---
Date of Service: 04/26/19 Pt complained sore throat. His throat appears to be red. I ordered sputum stain and culture. I started protonix and doxycycline as levaquin did not work in the past. he is allergic to Keflex.
[2019-04-26] MEDS: DOXYCYCLINE 100 MG CAP PO SCH (20:26)
[2019-04-26] MEDS: ENSURE HIGH PROTEIN 237 ML CAN PO SCH (20:27)
[2019-04-27] MEDS ORDERED: VANCOMYCIN 1 GM in NA CHLORIDE 0.9% 250 ML IVPB ONE (01:00)
[2019-04-27] MEDS: NA CHLORIDE 0.9% 1,000 ML IV SCH ×2 (01:00→06:21)
[2019-04-27] MEDS ORDERED: VANCOMYCIN 1 GM/VIAL ONE (01:05)
[2019-04-27] MEDS ORDERED: NA CHLORIDE 0.9% 250 ML ONE (01:06)
[2019-04-27] MEDS: ALBUTEROL 2.5 MG/3 ML NEB SOL NEB SCH ×2 (02:30→07:50)
[2019-04-27] MEDS: IPRATROPIUM BROM 0.5MG/2.5ML NEB SCH ×2 (02:30→07:50)
[2019-04-27] MEDS: guaiFENesin 100 MG/5 ML UCUP PO PRN (06:27)
[2019-04-27] MEDS: metroNIDAZOLE 500 MG TABLET PO SCH (07:41)
[2019-04-27] MEDS: ENOXAPARIN 40 MG/0.4 ML SQ SCH (07:41)
[2019-04-27] MEDS: DOXYCYCLINE 100 MG CAP PO SCH (07:41)
[2019-04-27] MEDS: ENSURE HIGH PROTEIN 237 ML CAN PO SCH (07:42)
[2019-04-27 08:11] LABS: BUN Blood Urea Nitrogen 2 mg/dL (7-18); Bicarbonate 28 mmol/L (21-32); Glucose Level 94 mg/dL (74-106); Magnesium 1.8 mg/dL (1.8-2.4); Potassium 4.4 mmol/L (3.5-5.1); Sodium Level 138 mmol/L (136-145)
[2019-04-27 12:05] VITALS: O2SAT 95
[2019-04-27 12:28] VITALS: TEMP 97.7
--- NOTE | 2019-04-27 20:51 | DS ---
Date of Discharge: 04/27/2019 Discharge Diagnoses: 1.Diarrhea? Gastroenteritis, resolved. 2.Generalized weakness, improved. 3.Malnutrition, secondary to diarrhea. 4.Chronic obstructive pulmonary disease, emphysema. 5.History of tobacco abuse. 6.Anxiety and depression. 7.Borderline troponin. Procedure: 1.Echocardiogram done yesterday showed normal. 2.CAT scan of the abdomen and pelvis done on the day of admission showed no obstruction or free air, questionable enlarged prostate. History Of Present Illness: Please refer to admission note. Consult: Dr. Ventura. Hospital Course: Initially, the patient presented with a generalized weakness as well as chronic renee rrhea. Patient was in progress, getting workup done for diarrhea by Dr. Renteria. Colonoscopy was d one and noted fine. Dr. Renteria ordered camera scope. In the ER, patient was evaluated and abdomin al CAT scan was unremarkable except for enlarged prostate. He was admitted and C diff was ordered, b ut the patient did not have any bowel movement since admission. He was able to tolerate diet well wi thout any abdominal pain. Internal medicine consult requested. Patient also has history of COPD and Dr. Ventura seen in followup pulmonary to adjust medication. Patient was able to tolerate diet lisa y well today and plan was to discharge him today home to follow up with Dr. Renteria as outpatient fo r further workup for this diarrhea. Patient last night had a sore throat. He was started on doxycyc line. I will continue that for 7 more days. Patient had borderline troponin of 0.05 and echocardiog sina was done and that was totally normal. Patient not have any shortness of breath, abdominal or christianne st pain. He will be discharged today in stable condition. Discharge Condition: Stable. Discharge Diet: As tolerated. Discharge Followup: With Dr. Renteria for the GI for colonoscopy workup. Follow up with primary car e physician on Monday and follow up with Dr. Ventura as advised. Discharge Medications: Doxycycline 100 mg twice a day for 7 days, albuterol inhaler, vitamin B12 as before orally, diphenoxylate atropine 1 tablet every 6 hours as needed, Trelegy inhaler daily, Mucine x 1 tab as needed, Creon 3 times a day 2 tablets, potassium chloride as before 10 mEq once a day. Pr imidone 50 mg twice a day 6 tablets, sertraline 50 mg 1 tablet daily, Stiolto inhaler daily, predniso ne 10 mg orally daily Physical Examination: Discharge Vital Signs: Blood pressure is 127/61, respiratory rate 16, pulse 70, temperature 97.6. General: Patient is alert and oriented x3. Does not look in any distress. HEENT: Atraumatic, normocephalic. PERRLA. Oral mucosa is moist. Neck: Supple. No JVD. No bruits. Chest: Clear to auscultation. Good air entry. Heart: Regular rate and rhythm. S1, S2 normal. No gallop or murmur. Abdomen: Soft, nontender. No masses. No hepatosplenomegaly. Positive bowel sounds. Extremities: No clubbing, cyanosis, or edema. No calf tenderness. Neurologic: Grossly intact. Cranial exam 2 through 12 intact. Normal sensation. Normal reflexes. Normal muscle strength. ANDREA/MODL Voice ID: [id number] Report ID: [id number]
[2019-05-12 09:39] VITALS: BP 134/64
== END 2019-04-27 13:30 | disposition home or self-care (01) ==
LOC: ER 12:16 → ERHOLD 18:30 → 4TH 20:23
PROVIDERS: ADMIT Internal Medicine; ATTEND Internal Medicine
DX: K52.9 Noninfective gastroenteritis and colitis, unspecified (principal); R53.1 Weakness; E43 Unspecified severe protein-calorie malnutrition; Z68.1 Body mass index [BMI] 19.9 or less, adult; J44.9 Chronic obstructive pulmonary disease, unspecified; F41.8 Other specified anxiety disorders; R79.89 Other specified abnormal findings of blood chemistry; F17.210 Nicotine dependence, cigarettes, uncomplicated
CPT/HCPCS: 96361; 93005; 93306; 87040 ×2; 85025 ×2; 80048 ×2; 36415 ×3; 83735 ×3; 87205; 84100; 85610; 80076; 84443; 81003; 84484 ×4; 80053; 83880; 74177; 71045; 97112; 97116; 97161; 94640; 94760 ×5; 96360; 99285; Q9967; J1650 ×2; J3475; J7030 ×9; G0378 ×4

== ENCOUNTER 2019-05-04 09:53 | Emergency (ER) | payer OTHER ==
[2019-05-04 11:00] LABS: Absolute Lymphocytes (CBC) 0.5 K/uL (0.7-4.9); Basophils % 0.4 % (0-1.3); Lymphocytes % 5.5 % (15.3-44.8); MPV 9.3 fL (7.6-11.3); RBC Red Blood Cell Count 4.65 M/uL (4.33-5.43)
[2019-05-04] MEDS ORDERED: NA CHLORIDE 0.9% 500 ML ONE (11:03)
[2019-05-04] MEDS ORDERED: ONDANSETRON 4 MG/2 ML VIAL ONE (11:12)
[2019-05-04 11:24] LABS: BUN Blood Urea Nitrogen 5 mg/dL (7-18); Bicarbonate 28 mmol/L (21-32); Glucose Level 103 mg/dL (74-106); Potassium 4.3 mmol/L (3.5-5.1); Sodium Level 133 mmol/L (136-145)
[2019-05-04 11:53] LABS: Anisocytosis 1+; Blood Morphology Comment NOTED (NOT SEEN); Platelet Estimate ADEQ; Urine White Blood Cell Casts OK
--- NOTE | 2019-05-04 12:04 | RAD REPORT ---
EXAM DESCRIPTION: CT - Soft Tissue Neck W/Contr - 05/04/2019 11:48 am CLINICAL HISTORY: Neck pain, weight loss, dysphagia COMPARISON: None TECHNIQUE: During dynamic enhancement using 100 milliliters nonionic IV contrast, axial 5 millimeter thick images of the neck were obtained. All CT scans are performed using dose optimization technique as appropriate and may include automated exposure control or mA/KV adjustment according to patient size. FINDINGS: No gross abnormality in the intracranial portion of the examination. No globe or orbital c ontent abnormality. Paranasal sinuses, mastoid air cells and middle ears are clear. No acute bone abn ormality seen. Patient has prominent facet joint degenerative change. Pathologic bone process not trevor ntified. Bilateral foraminal encroachment at C3-4 with borderline central spinal stenosis. Skeleton i s not optimally assessed on soft tissue neck examination. No pharyngeal mucosal mass or asymmetry identifiable. No tonsillar mass or enlargement. Soft palate i s normal. No tongue base, epiglottis or acute laryngeal finding seen. Imaged portions of the trachea and esophagus show no acute finding. Parotid, submandibular and thyroid gland tissue show no suspicious findings. No mass or lymphadenopat hy identifiable. No finding clearly distinguishable from normal neck soft tissues. Dense arterial tree calcifications are present. Proximal left subclavian artery stenosis is evident. Dense carotid bulb calcifications are present without a significant stenosis. There is borderline to mildly stenotic proximal left internal carotid artery. IMPRESSION: No pharyngeal mucosal mass, lymphadenopathy or other suspicious soft tissue finding. Slight asymmetry of the prevertebral soft tissues can be accounted for by the prominent degenerative change. No distinguishable mass seen. No abnormal lymphadenopathy.
--- NOTE | 2019-05-04 12:31 | EDPHYS ---
Physician Documentation [facility] Name: Bossman Gooden Age: 74 yrs Sex: Male : 1945 Arrival Date: 05/04/2019 Time: 09:55 Bed 15 Private MD: ED Physician Tahir Stephen HPI: 05/04 10:22 This 74 yrs old Male presents to ER via Ambulatory with complaints of rn Weakness, Decreased Appetite. 10:22 The patient presents to the emergency department with weakness of the entire body, rn generalized weakness. Onset: The symptoms/episode began/occurred at an unknown time. Severity of symptoms: At their worst the symptoms were moderate in the emergency department the symptoms are unchanged. Current symptoms:. The patient has experienced similar episodes in the past. Recently admitted for generalized weakness, chronic diarrhea, seen by GI, had neck pill camera, declined physical rehab during hospitalization, now returns because symptoms have not improved. Reports still having some diarrhea, decreased appetite, and not eating. Continues to lose weight. Reports recently had choking episode with steak, has not happened again. Pt states came here because didn't know where else to go. . Historical: - Allergies: 10:11 Keflex; iw 10:11 Sulfa (Sulfonamide Antibiotics); iw - Home Meds: 10:11 amlodipine 10 mg tab 1 tab once daily [Active]; aspirin 81 mg Oral chew 1 tab once iw daily [Active]; atorvastatin 10 mg Oral tab 1 tab once daily [Active]; Atrovent 0.5mg PRN Inhl [Active]; bevespi 2 puffs a day [Active]; clopidogrel 75 mg Oral tab 1 tab once daily [Active]; Daliresp 500 mcg Oral tab 1 tab once daily [Active]; Diphenoxylate-Atropine Oral [Active]; Klor-Con 10 Oral [Active]; prednisone 10 mg Oral tab once daily [Active]; primidone 50 mg Oral tab 2 tabs twice a day [Active]; sertraline Oral [Active]; trelegy [Active]; Ventolin Nebulizer PRN [Active]; Ventolin HFA inhalation Nebulizer [Active]; - PMHx: 10:11 Asthma; CAD; COPD; EDEMA; Emphysema; ESSENTIAL TREMORS; High Cholesterol; Hypertension; iw meningitis; Pneumonia; - PSHx: 10:11 Stents on Legs; Tonsillectomy; iw - Immunization history:: Adult Immunizations unknown. - Coronavirus screen:: The patient has NOT traveled to [place] in the past 14 days. The patient has NOT had contact with known/suspected case of Coronavirus?. - Family history:: not pertinent. - Social history:: Smoking status: Patient denies any tobacco usage or history of. - Ebola Screening: : Patient negative for fever greater than or equal to 101.5 degrees Fahrenheit, and additional compatible Ebola Virus Disease symptoms Patient denies exposure to infectious person Patient denies travel to an Ebola-affected area in the 21 days before illness onset No symptoms or risks identified at this time. - Hospitalizations: : The patient was recently seen at [facility]. ROS: 10:22 Constitutional: Negative for fever, chills, + weight loss Eyes: Negative for injury, rn pain, redness, and discharge, ENT: Negative for injury, pain, and discharge, Neck: Negative for injury, pain, and swelling, Cardiovascular: Negative for chest pain, palpitations, and edema, Respiratory: Negative for shortness of breath, cough, wheezing, and pleuritic chest pain, Abdomen/GI: Negative for abdominal pain, and constipation, MS/Extremity: Negative for injury and deformity, Skin: Negative for injury, rash, and discoloration, Neuro: Negative for headache, numbness, tingling, and seizure. Exam: 10:22 Constitutional: Thin male, no acute distress Head/Face: Normocephalic, atraumatic. product management intern: MMM, no stridor or oral swelling Neck: Trachea midline, no thyromegaly or masses palpated, and no cervical lymphadenopathy. Supple, full range of motion without nuchal rigidity, or vertebral point tenderness. No Meningismus. Cardiovascular: Regular rate and rhythm. No pulse deficits. Respiratory: No increased work of breathing, no retractions or nasal flaring. Abdomen/GI: soft, non-tender, non-distended MS/ Extremity: Pulses equal, no cyanosis. Neurovascular intact. Full, normal range of motion. Equal circumference. Neuro: Awake and alert, GCS 15, oriented to person, place, time, and situation. Cranial nerves II-XII grossly intact. Motor strength 5/5 in all extremities. Sensory grossly intact. Vital Signs: 10:11 BP 141 / 92; Pulse 100; Resp 16 S; Temp 97.9(TE); Pulse Ox 94% on R/A; iw MDM: 10:00 Patient medically screened. rn 12:28 Data reviewed: vital signs, nurses notes, lab test result(s), radiologic studies, CT rn scan, and as a result, I will discharge patient. Counseling: I had a detailed discussion with the patient and/or guardian regarding: the historical points, exam findings, and any diagnostic results supporting the discharge/admit diagnosis, lab results, radiology results, the need for outpatient follow up, to return to the emergency department if symptoms worsen or persist or if there are any questions or concerns that arise at home. Response to treatment: There is no appreciated change of the patient's symptoms at this time, and as a result, I will discharge patient. Special discussion: I discussed with the patient/guardian in detail that at this point there is no indication for admission to the hospital. It is understood, however, that if the symptoms persist or worsen the patient needs to return immediately for re-evaluation. ED course: No acute findings on blood or CT neck, just recently had GI w/u and CT abdomen/chest. Possibly progression of chronic illnesses vs depression. Will dc home with pcp f/u. . 05/04 10:18 Order name: CBC with Diff rn 05/04 10:18 Order name: Basic Metabolic Panel rn 05/04 10:18 Order name: [place] Screen Profile rn 05/04 10:19 Order name: TSH rn 05/04 10:19 Order name: T4 Free rn 05/04 11:08 Order name: CBC with Automated Diff; Complete Time: 12:27 EDHI 05/04 10:18 Order name: CT Soft Tissue Neck W/contr rn 05/04 11:24 Order name: Basic Metabolic Panel; Complete Time: 12:27 EDHI 05/04 11:24 Order name: T4 Free; Complete Time: 12:27 EDHI 05/04 11:24 Order name: Thyroid Stimulating Hormone; Complete Time: 12:27 EDHI 05/04 11:36 Order name: [place] Screen; Complete Time: 12:27 EDHI 05/04 11:53 Order name: CBC Smear Scan; Complete Time: 12:27 EDHI 05/04 12:05 Order name: CT; Complete Time: 12: EDHI 05/04 10:18 Order name: IV Start; Complete Time: 10:57 rn Administered Medications: 11:21 Drug: NS 0.9% 500 ml Route: IV; Rate: bolus; Site: right forearm; ph 11:22 Drug: Zofran 4 mg Route: IVP; Site: right forearm; ph Disposition: 05/04/19 12:30 Discharged to Home. Impression: Weakness, Abnormal weight loss. - Condition is Stable. - Discharge Instructions: Weakness, Fatigue. - Medication Reconciliation Form, Thank You Letter, Antibiotic Education, Prescription Opioid Use form. - Follow up: Private Physician; When: As needed; Reason: Recheck today's complaints, Re-evaluation by your physician. - Problem is an ongoing problem. - Symptoms are unchanged. Signatures: Dispatcher [employer] Marlen Montes RN RN iw Nieto, Roman, MD MD rn Hall, Patricia, RN RN ph Corrections: (The following items were deleted from the chart) 13:07 12:30 05/04/2019 12:30 Discharged to Home. Impression: Weakness; Abnormal weight loss. ph Condition is Stable. Forms are Medication Reconciliation Form, Thank You Letter, Antibiotic Education, Prescription Opioid Use. Follow up: Private Physician; When: As needed; Reason: Recheck today's complaints, Re-evaluation by your physician. Problem is an ongoing problem. Symptoms are unchanged. rn
--- NOTE | 2019-05-04 12:31 | ER ---
Nurse's Notes [facility] Name: Bossman Gooden Age: 74 yrs Sex: Male : 1945 Arrival Date: 05/04/2019 Time: 09:55 Bed 15 Private MD: Diagnosis: Weakness;Abnormal weight loss Presentation: 05/04 10:07 Presenting complaint: Patient states: was recently seen here for similar symptoms, is iw still having diarrhea, is becoming increasingly weak and is still losing weight. Transition of care: patient was not received from another setting of care. Onset of symptoms was May 04, 2019. Risk Assessment: Do you want to hurt yourself or someone else? Patient reports no desire to harm self or others. Initial Sepsis Screen: Does the patient meet any 2 criteria? No. Patient's initial sepsis screen is negative. Does the patient have a suspected source of infection? No. Patient's initial sepsis screen is negative. Care prior to arrival: None. 10:07 Method Of Arrival: Ambulatory iw 10:07 Acuity: GUANACO 3 iw Historical: - Allergies: 10:11 Keflex; iw 10:11 Sulfa (Sulfonamide Antibiotics); iw - Home Meds: 10:11 amlodipine 10 mg tab 1 tab once daily [Active]; aspirin 81 mg Oral chew 1 tab once iw daily [Active]; atorvastatin 10 mg Oral tab 1 tab once daily [Active]; Atrovent 0.5mg PRN Inhl [Active]; bevespi 2 puffs a day [Active]; clopidogrel 75 mg Oral tab 1 tab once daily [Active]; Daliresp 500 mcg Oral tab 1 tab once daily [Active]; Diphenoxylate-Atropine Oral [Active]; Klor-Con 10 Oral [Active]; prednisone 10 mg Oral tab once daily [Active]; primidone 50 mg Oral tab 2 tabs twice a day [Active]; sertraline Oral [Active]; trelegy [Active]; Ventolin Nebulizer PRN [Active]; Ventolin HFA inhalation Nebulizer [Active]; - PMHx: 10:11 Asthma; CAD; COPD; EDEMA; Emphysema; ESSENTIAL TREMORS; High Cholesterol; Hypertension; iw meningitis; Pneumonia; - PSHx: 10:11 Stents on Legs; Tonsillectomy; iw - Immunization history:: Adult Immunizations unknown. - Coronavirus screen:: The patient has NOT traveled to [place] in the past 14 days. The patient has NOT had contact with known/suspected case of Coronavirus?. - Family history:: not pertinent. - Social history:: Smoking status: Patient denies any tobacco usage or history of. - Ebola Screening: : Patient negative for fever greater than or equal to 101.5 degrees Fahrenheit, and additional compatible Ebola Virus Disease symptoms Patient denies exposure to infectious person Patient denies travel to an Ebola-affected area in the 21 days before illness onset No symptoms or risks identified at this time. - Hospitalizations: : The patient was recently seen at [facility]. Screenin:23 Abuse screen: Denies threats or abuse. Denies injuries from another. Nutritional ph screening: No deficits noted. Tuberculosis screening: No symptoms or risk factors identified. Fall Risk None identified. Assessment: 11:27 General: Appears in no apparent distress. comfortable, slender, well groomed, Behavior ph is calm, cooperative, appropriate for age, Denies fever. Pain: Denies pain. Neuro: Level of Consciousness is awake, alert, obeys commands, Oriented to person, place, time, situation. Cardiovascular: Capillary refill < 3 seconds in bilateral fingers Patient's skin is warm and dry. Respiratory: Airway is patent Respiratory effort is even, unlabored, Respiratory pattern is regular, symmetrical. GI: Abdomen is flat, non-distended, Reports diarrhea, nausea, Patient currently denies abdominal pain, vomiting. Derm: Skin is intact, Skin is pink, warm \T\ dry. Musculoskeletal: Circulation, motion, and sensation intact. Range of motion: intact in all extremities. 12:30 Reassessment: Patient appears in no apparent distress at this time. Patient and/or ph family updated on plan of care and expected duration. Pain level reassessed. Patient is alert, oriented x 3, equal unlabored respirations, skin warm/dry/pink. Vital Signs: 10:11 BP 141 / 92; Pulse 100; Resp 16 S; Temp 97.9(TE); Pulse Ox 94% on R/A; iw ED Course: 09:55 Patient arrived in ED. as 10:00 Tahir Stephen MD is Attending Physician. rn 10:08 Triage completed. iw 10:11 Arm band placed on. iw 10:26 Tamar Borja, RN is Primary Nurse. ph 11:00 Radiology exam delayed due to lab results not completed at this time. (BUN/Creatinine). mw3 11:24 Patient has correct armband on for positive identification. Bed in low position. Call ph light in reach. Side rails up X 1. Pulse ox on. NIBP on. 11:30 Inserted saline lock: 20 gauge in right forearm, using aseptic technique. ph 11:47 CT completed. Patient tolerated procedure well. Patient moved back from CT. bq 13:05 IV discontinued, intact, bleeding controlled, No redness/swelling at site. Pressure ph dressing applied. 13:07 No provider procedures requiring assistance completed. ph Administered Medications: 11:21 Drug: NS 0.9% 500 ml Route: IV; Rate: bolus; Site: right forearm; ph 11:22 Drug: Zofran 4 mg Route: IVP; Site: right forearm; ph Outcome: 12:30 Discharge ordered by . rn 13:07 Patient left the ED. ph 13:07 Discharged to home via wheelchair, with family. ph 13:07 Condition: good 13:07 Discharge instructions given to patient, family, Instructed on discharge instructions, follow up and referral plans. Demonstrated understanding of instructions, follow-up care. Signatures: Florinda Coy Amelia as Williams, Irene, RN RN iw Nieto, Roman, MD MD rn Hall, Patricia, RN RN ph Willis, Michelle mw3
[2019-05-04 13:27] VITALS: BP 141/92; TEMP 97.9; O2SAT 94
== END 2019-05-04 13:07 | disposition home or self-care (01) ==
LOC: ER 09:53
DX: R53.1 Weakness (principal); R63.4 Abnormal weight loss; Z88.2 Allergy status to sulfonamides; Z88.1 Allergy status to other antibiotic agents
CPT/HCPCS: 85025; 80048; 36415; 86308; 84443; 84439; 70491; 96374; 99284; Q9967; J7040; J2405

== ENCOUNTER 2019-11-08 10:28 | Emergency (ER) | payer OTHER ==
--- OUTSIDE RECORDS SUMMARY | 2019-11-08 10:37 | XMS REPORT | Continuity of Care Document ---
:1945 Author Organization [employer] Care Team Providers Name Role Phone [employer] Unavailable Un available Problems Problem Status Onset Classification Date Comments Sour e Date Reported Essential tremor Active Problem 06/18/2018 Data nathaniel rated from [employer] on 12/27/2016. Originally documented as Essential tremor. Mischer (disorder) 017 Data migrated from [employer] on 11/02/2016. Originally documented as Essential tremor. Neuro, Data migrated from [employer] on 05/12/2016. Originally documented as Essential tremor. [facility] HEADACHE Active [facility] 017 [facility] FOOT PAIN OR Active [facility] INJURY 017 Hospital CELLULITIS OF Active Jyoti y RIGHT LOWER LIMB 017 Hos pital WOUND Active [facility] 017 Rehab ACUTE RESPIRATORY Active [facility] FAILURE, ACUTE 016 Hospi [facility]quez RESPIRA SHORTNESS OF Active [facility] BREATH 016 Hospital PCP SENT/WEAKNESS Active [facility] 016 [facility] ACUTE COPD Active [facility] EXACERBATION 016 Hospita l COPD Active [address] 305.1 - TOBACCO Active O PID [facility] USE DIS 015 TOBACCO ABUSE Active Condition 07/23/2014 [facility] dical 015 Group Tobacco dependence Active Problem 06/18/2018 Data m igrated from [employer] on 09/17/14. 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 Neuro, (disorder) [facility] LOSS OF WEIGHT Active Condition 07/23/2014 [facility] edical 015 Group CAROTID BRUIT, Active Condition 07/23/2014 [facility] edical RIGHT 015 Group Carotid bruit Active Problem 06/18/2018 Data migrat ed from [employer] on 09/17/14. Mischer (finding) 015 Data migrated from [employer] on 08/12/14. Neuro,[facility] Weight decreased Active Problem 06/18/2018 Data nathaniel rated from [employer] on 09/17/14. Mischer (finding) 015 Data migrated from [employer] on 08/12/14. Neuro,[facility] PNEUMONIA Active [place] [id number] Hospital COPD EXACERBATION Active [address] RASH AND OTHER Inactive Condition 07/23/2014 [facility] edical NONSPECIFIC SKIN 015 Az up ERUPTION RASH Active [facility] 014 [facility] CELLULITIS FAILED Active [facility] OUTPATIENT THERAPY 014 H ospital ERYSIPELAS Inactive Condition 07/23/2014 Medic al 014 Group Erysipelas Resolved Problem 06/18/2018 Data Mischer (disorder) 014 migrated Neuro, from [facility], on 09/26/14. [facility] SEBORRHEIC Inactive Condition 07/23/2014 Medic al KERATOSIS 014 Group SUPERIOR GLENOID Inactive Condition 07/23/2014 Medical LABRUM LESIONS 014 Group (SLAP) ROTATOR CUFF TEAR Inactive Condition 07/23/[address] [facility] Medical 014 Group HYPOTHYROIDISM Active Condition 07/23/2014 [facility] edical 014 Group HYPOGONADISM Active Condition 07/23/2014 Med ical 014 Group SHOULDER PAIN, Inactive Condition 07/23/2014 [facility] edical LEFT 014 Group PERIPHERAL Active Condition 07/23/2014 Medic al VASCULAR DISEASE 014 Az up OSTEOPOROSIS Active Condition 07/23/2014 Med ical 014 Group NEOPLASM, SKIN, Inactive Condition 07/23/2014 Medical UNCERTAIN BEHAVIOR 014 G roup COPD Active Condition 07/23/2014 Medica l 014 Group Chronic Active Problem 06/18/2018 Data migrated from [employer] on 09/17/14. Mischer obstructive lung 014 Data migrated from [employer] on 08/12/14. Neuro, disease (disorder) Data migrat ed from [employer] on 08/12/14. [facility] Hypogonadism Active Problem 06/18/2018 Data migrate d from [employer] on 09/17/14. Mischer (disorder) 014 Data migrated from [employer] on 08/12/14. Neuro,[facility] Data migrated from [employer] on 08/12/14. [facility] Osteoporosis Active Problem 06/18/2018 Data migrate d from [employer] on 09/17/14. Mischer (disorder) 014 Data migrated from [employer] on 08/12/14. Neuro, Data migrated from [employer] on 08/12/14. [facility] Peripheral Active Problem 06/18/2018 Data migrated from [employer] on 09/17/14. Mischer vascular disease 014 Data migrated from [employer] on 08/12/14. Neuro, (disorder) Data migrated from [employer] on 08/12/14. 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, systemic N euro, arterial [facility] (disorder) [facility] Hypothyroidism Resolved Problem 06/18/2018 Misc her (disorder) Neuro,[facility] 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 euro, disease (disorder) K aty Rehab, OPID [facility] Poor short-term Active Problem 06/18/2018 Mis shamar memory (finding) Dede ro Smoker (finding) Active Problem 06/18/2018 Mi sofya Neuro,[facility] COPD Resolved Problem 09/14/2012 [facility] Cellulitis of Active Diagnosis 02/18/2017 W Kristin right lower limb Inf ectious Disease RESPIRATORY ABNORM Active Valarie Tavares [facility] CHR AIRWAY Active PATTIE Tavares [facility] Hospita l CELLULITIS NOS Active [facility] CHRONIC Active [facility] OBSTRUCTIVE PULMON H ospital DISEASE W ACU ACUTE RESPIRATORY Active PATTIE Tavares FAILURE, UNSP W Hosp ital HYPOXI Medications Medication Details Route Status Patient Ordering Order Source Instructions Provider Date rivastigmine See Active 06/26/ Mischer 1.5 mg oral Instructions 2018 Neuro capsule , # 180 unknown unit, Refill(s) 3, TAKE 1 CAPSULE BY MOUTH TWICE DAILY, Pharmacy: [facility] [id number] primidone 50 mg See Active 06/05/ Mischer oral tablet Instructions 2018 Neuro , 4 tabs twice a day, # 720 tab, 3 Refill(s), Pharmacy: [facility] [id number] Megestrol See Active 05/12/ Maryanncher Acetate 40 Instructions 2018 Neuro MG/ML Oral , # 600 mL, Suspension SHAKE WELL AND TAKE 20 ML BY MOUTH EVERY DAY, Pharmacy: [facility] [id number] rivastigmine 1.5 mg = 1 No Longer 04/24/ Mische r 1.5 mg oral cap, PO, Active 2018 Neuro capsule BID, # 60 cap, 3 Refill(s), Pharmacy: [facility] [id number] diazepam 2 mg 2 mg = 1 Active 04/12/ Maryanncher oral tablet tab, PO, 2018 Neuro Daily, PRN Tremor, X 30 day, # 30 tab, 3 Refill(s) Enoxaparin Notes: (Same No Longer 06/29/ Jyoti bourgeois as: Lovenox) Active 2017 Hospital Miralax Notes: Inactive 06/28/ [facility] Dissolve in 2017 Hospital 8 oz of water or juice. (Same as: Miralax) Dulcolax Notes: (Same Inactive 06/28/ [facility] Laxative As: 2017 Hospital Dulcolax, Bisco-Lax) metoprolol Notes: (Same Inactive 06/28/ [facility] tartrate as: 2017 Hospital Lopressor) metoprolol 50 mg = 1 Active 06/27/ [facility] tartrate 50 mg tab, PO, 2017 Hospital oral tablet BID, # 60 tab, 0 Refill(s) Nystatin 520840 500,000 unit Active [facility] UNT/ML Oral = 5 mL, 2017 Hospital Suspension S&SPIT, QID, X 7 day, # 140 mL, 0 Refill(s) amLODIPine 10 10 mg = 1 Active [facility] mg oral tablet tab, PO, 2017 Hospital Daily, # 30 tab, 0 Refill(s) metoprolol Notes: (Same No Longer Jyoti y tartrate as: Active 2017 Hospital Lopressor) Levaquin 500 mg, 1 No Longer [facility] tab, Route: Active 2017 Hospital PO, Drug form: TAB, [id number], Dosing Weight 71.682, kg, Start date: 06/25/16 15:00:00 CDT, Duration: 7 day, Stop date: 07/01/16 15:00:00 CDT cholecalciferol Notes: Same No Longer [facility] as : Vitamin Active 2017 Hospital D3 clopidogrel Notes: (Same No Longer Ka ty As: Plavix) Active 2017 Hospital Vitamin E 400 No Longer [facility] IntlUnit, 1 Active 2017 Hospital cap, Route: PO, Drug form: CAP, Daily, Dosing Weight 71.682, kg, Start date: 06/25/16 9:00:00 CDT, Duration: 30 day, Stop date: 07/24/16 9:00:00 CDT Furosemide 20 Notes: (Same No Longer [facility] MG Oral Tablet as: Lasix) Active 2017 Hospit al May cause GI upset. Give with food or milk. Fish Oil Notes: (Same No Longer [facility] as: MaxEPA, Active 2017 Hospital Sears 3 fish oil ) Non-Formular y Drug Vitamin C Notes: (Same No Longer [facility] as: Vitamin Active 2017 [facility] C) Spiriva Notes: (Same No Longer [facility] As: Spiriva) Active 2017 Hospital metoprolol Notes: (Same No Longer Jyoti y tartrate as: Active 2017 Hospital Lopressor) atorvastatin Notes: (Same No Longer K aty As: Lipitor) Active 2017 Hospital Symbicort Notes: (Same No Longer [facility] 160/4.5 as: Active 2017 Hospital inhalation Symbicort) aerosol with WASTE: adapter Aerosol - Return to Pharmacy pantoprazole Notes: No Longer [facility] Tablet Active 2017 Hospital should not be chewed or crushed. (Same as: Protonix) Amlodipine Notes: (Same No Longer Jyoti y as: Norvasc) Active 2017 Hospital Primidone Notes: (Same No Longer [facility] as: Active 2017 Hospital Mysoline) Albuterol 0.83 Notes: SEE No Longer K aty MG/ML Inhalant RT Active 2016 Hospital Solution DOCUMENTATIO N (Same as: Proventil) vancomycin + 2001 mg: No Longer [facility] sodium chloride infuse over Active 2017 Hosp ital 0.9% 250 mL INJ 2.5 hours (for IV set) 250 mL MEDICATION WASTE Product Size: 1000 mg Product Wasted: ___ mg ketOROLAC 15 4 days No Longer [facility] mg/mL Active 2016 Hospital injectable MEDICATION solution WASTE Product Size: 30 mg Product Wasted: _15__ mg Tylenol Notes: Max No Longer [facility] acetaminophe Active 2017 Hospital n = 4000 mg/day (4 gm/day). (Same as: Tylenol) Levofloxacin Notes: (Same No Longer K aty as:Levaquin) Active 2017 Hospital Levofloxacin Notes: (Same Inactive Ka ty as:Levaquin) 2017 Hospital Hydralazine Notes: (Same Inactive Jyoti y as: 2017 Hospital Apresoline) Push over 5 minutes sodium chloride 1,000 mL, No Longer K aty 0.9% 1000 ml Rate: 50 Active 2017 Hospital INJ 1,000 mL ml/hr, Infuse over: 20 hr, Route: IV, Dosing Weight 71.682 kg, Total Volume: 1,000, Start date: 06/22/16 18:30:00 CDT, Duration: 30 day, Stop date: 07/22/16 18:29:00 CDT Vancomycin Notes: No Longer [facility] MEDICATION Active 2017 Hospital WASTE Product Size: 1000 mg Product Wasted: _0__ mg Hydralazine 10 mg, 0.5 No Longer [facility] mL, Route: Active 2017 Hospital IVP, Drug form: INJ, Q4H, Dosing Weight 71.682, kg, PRN Hypertension , Start date: 06/22/16 5:35:00 CDT, Duration: 30 day, Stop date: 07/22/16 5:34:00 CDT Dilaudid Notes: Same Inactive [facility] as Dilaudid 2017 Hospital Albuterol 0.833 Notes: (Same No Longer H [facility] MG/ML / as: Duoneb) Active 2017 Hospital Ipratropium [place] 0.167 MG/ML Inhalant Solution Nystatin [id number] 500,000 No Longer Jyoti y UNT/ML Oral unit, 5 mL, Active 2017 Hospital Suspension Route: S&SPIT, Drug form: SUSP, QID, Dosing Weight 71.682, kg, Start date: 06/22/16 0:00:00 CDT, Duration: 30 day, Stop date: 07/21/16 21:00:00 CDT Albuterol 0.83 Notes: SEE No Longer K aty MG/ML Inhalant RT Active 2017 Hospital Solution DOCUMENTATIO N (Same as: Proventil) Enoxaparin Notes: (Same No Longer Jyoti y as: Lovenox) Active 2017 Hospital Albuterol 0.83 2.49 mg, Inactive [facility] MG/ML Inhalant Route: NEB, 2017 Hospi vasquez Solution PRN, Dosing Weight 71.682, kg, PRN Respiratory Protocol, Start date: 06/21/16 22:54:00 CDT, Duration: 30 day, Stop date: 07/21/16 22:53:00 CDT Albuterol 0.833 3 mL, Route: Inactive [facility] MG/ML / NEB, Dosing 2017 Hospital Ipratropium Weight [place] 0.167 71.682, kg, MG/ML Inhalant PRN, PRN Solution Respiratory Protocol, Start date: 06/21/16 22:54:00 CDT, Duration: 30 day, Stop date: 07/21/16 22:53:00 CDT Guaifenesin Notes: (Same No Longer Ellis ty as: Active 2017 Hospital Robitussin) Sodium Chloride 1,000 mL, No Longer K aty 0.154 MEQ/ML Rate: 125 Active 2017 Hospital Injectable ml/hr, Solution Infuse over: 8 hr, Route: IV, Dosing Weight 71.682 kg, Total Volume: 1,000, Start date: 06/21/16 22:51:00 CDT, Duration: 30 day, Stop date: 07/21/16 22:50:00 CDT Saline Flush 10 ml, Inactive [facility] 0.9% Route: IVP, 2016 Hospital Drug Form: INJ, Dosing Weight 71.682, kg, PRN, PRN Line Flush, Start date: 06/21/16 22:51:00 CDT, Duration: 30 day, Stop date: 07/21/16 22:50:00 CDT Acetaminophen 100.4 F, No Longer Jyoti y Start date: Active [address] [place] [address] 06/21/16 22:51:00 CDT, Duration: 30 day, Stop date: 07/21/16 22:50:00 CDT Ondansetron Notes: (Same No Longer Ellis dailey as: Zofran) Active 2017 Hospital MEDICATION WASTE Product Size: 4 mg Product Wasted: ___ mg Acetaminophen 1 tab, No Longer [facility] 325 MG / Route: PO, Active [address] [place] [address] Hydrocodone Drug Form: Bitartrate 5 MG TAB, Dosing Oral Tablet Weight 71.682, kg, Q4H, PRN Pain Score 4-6, Start date: 06/21/16 22:51:00 CDT, Duration: 30 day, Stop date: 07/21/16 22:50:00 CDT Morphine 2 mg, 1 mL, No Longer [facility] Route: IVP, Active 2016 Hospital Drug form: SOLN, Q4H, Dosing Weight 71.682, kg, PRN Pain Score 7-10, Start date: 06/21/16 22:51:00 CDT, Duration: 30 day, Stop date: 07/21/16 22:50:00 CDT vancomycin + Notes: Inactive [facility] sodium chloride MEDICATION 2017 Hospi vasquez 0.9% 500 mL INJ WASTE (for IV set) Product 500 mL Size: 1750 mg Product Wasted: __0_ mg Furosemide 20 PO, 0 Active [facility] MG Oral Tablet Refill(s) 2017 Hospita l pantoprazole 40 40 mg = 1 Active Jyoti y mg oral enteric tab, PO, 2017 Hospita l coated tablet Daily, 0 Refill(s) Symbicort 2 puff, Active [facility] 160/4.5 INHALATION, 2017 Hospital inhalation BID, 0 aerosol with Refill(s) adapter Vancomycin 1,000 mg, Inactive [facility] Route: IVPB, [address] [place] [address] Drug form: INJ, ONCE, Dosing Weight 69.091, kg, Priority: STAT, Start date: 06/21/16 20:24:00 CDT, Stop date: 06/21/16 20:24:00 CDT, TIME CRITICAL MEDICATION Ciprofloxacin 400 mg, Inactive [facility] Route: IVPB, [facility] ONCE, Dosing Weight 69.091, kg, Priority: STAT, Start date: 06/21/16 20:24:00 CDT, Stop date: 06/21/16 20:24:00 CDT Albuterol 0.833 Notes: (Same Inactive [facility] MG/ML / as: Duoneb) [address] [place] [address] Ipratropium [place] 0.167 MG/ML Inhalant Solution [DuoNeb] Acetaminophen Notes: Do Inactive [facility] not exceed 4 2017 Hospital gm/day. (Same as: Tylenol) Sodium Chloride 25 mL, No Longer Jyoti y 0.9% IV Route: IV, Active [facility] Start date: 06/21/16 18:40:00 CDT, Duration: 30 day, Stop date: 07/21/16 18:39:00 CDT, PRN Line Flush Hydralazine Notes: (Same Inactive Jyoti y as: 2017 Hospital Apresoline) Push over 5 minutes Morphine Notes: (Same Inactive [facility] as:MORPhine 2017 [facility] Sulfate) Morphine Notes: (Same Inactive [facility] as:MORPhine 2017 [facility] Sulfate) Diphenhydramine Notes: (Same Inactive [facility] as: 2017 Hospital Benadryl) Metoclopramide Notes: (Same Inactive [facility] as: Reglan) 2017 Hospital Sodium Chloride 1,000 mL, Inactive Ka ty 0.154 MEQ/ML 1000 ml/hr, 2017 Hospita l Injectable Infuse Over: Solution 1 hr, Route: IV, 1,000, Drug form: INJ, ONCE, Priority: STAT, Dosing Weight 69.091 kg, Start date: 06/21/16 15:38:00 CDT, Duration: 1 doses or times, Stop date: 06/21/16 15:38:00 CDT Saline Flush Notes: (Same No Longer K aty 0.9% as: BD Active 2016 Hospital Posiflush) Doxycycline Notes: (Same Inactive Jyoti y as: 2017 Hospital Vibramycin) No milk/antacid s/iron. Ciprofloxacin Notes: July Inactive Jyoti y interfere 2017 Hospital w/enteral feedings - Take 1 hr before or 2 hrs after antacids, dairy pdt & minerals. On empty stomach. minocycline 100 100 mg = 1 Active Ka ty mg oral capsule cap, PO, 2017 Hospita l Q12H, X 30 day, # 60 cap, 0 Refill(s), Pharmacy: [facility] [id number] ciprofloxacin 500 mg = 1 Active [facility] 500 mg oral tab, PO, 2017 Hospital tablet Q12H, X 30 day, # 60 tab, 0 Refill(s), Pharmacy: [facility] [id number] Nicotine Notes: (Same Inactive [facility] as: 2017 Hospital Habitrol) "Remove old patch before application of new patch" WASTE: F/P - P Waste Black; E - P Waste Black Protonix Notes: Inactive [facility] Tablet 2017 Hospital should not be chewed or crushed. (Same as: Protonix) vancomycin + 2001 mg: Inactive [facility] sodium chloride infuse over 2017 Hosp ital 0.9% INJ 250 mL 2.5 hours MEDICATION WASTE Product Size: 1000 mg Product Wasted: _0__ mg Cleocin HCl 600 mg, 50 No Longer [facility] mL, Route: Active 2016 Hospital IVPB, Drug form: INJ, [id number], Start date: 05/17/16 21:30:00 ENDOSCOPY RN, Duration: 30 day, Stop date: 06/16/16 13:30:00 CDT atorvastatin Notes: (Same No Longer K aty As: Lipitor) Active 2016 Hospital Symbicort Notes: (Same No Longer [facility] 160/4.5 as: Active 2016 Hospital inhalation Symbicort) aerosol with WASTE: adapter Aerosol - Return to Pharmacy Vitamin C 1000 2,000 mg = 2 Active K aty mg oral tablet tab, PO, 2017 Hospital Daily, # 30 tab, 0 Refill(s) Spiriva 18 Active [facility] microgram, 2016 Hospital INHALATION, Daily, # 30 ea, 0 Refill(s) vitamin E 400 400 IntlUnit Active Ka ty intl units oral = 1 cap, PO, 2017 Hos pital capsule Daily, # 100 cap, 0 Refill(s) predniSONE 50 See Active [facility] mg oral tablet Instructions 2017 Hosp ital , PRN Allergies, 1 tab PO PRN asthma attacks., 0 Refill(s) clopidogrel 75 75 mg = 1 Active [facility] mg oral tablet tab, PO, 2017 Hospital Daily, # 30 tab, 0 Refill(s) levofloxacin 500 mg = 1 No Longer Jyoti y 500 mg oral tab, PO, Active 2016 Hospital tablet Daily, # 10 tab, 0 Refill(s) cholecalciferol 1,000 Active [facility] 1000 intl units IntlUnit = 1 2017 Hos pital oral tablet tab, PO, Daily, # 30 tab, 0 Refill(s) vancomycin + 2001 mg: Inactive [facility] sodium chloride infuse over 2017 Hosp ital 0.9% 500 mL INJ 2.5 hours (for IV set) 500 mL MEDICATION WASTE Product Size: 1000 mg Product Wasted: _250__ mg Primidone Notes: (Same No Longer [facility] as: Active 2016 Hospital Mysoline) Enoxaparin Notes: (Same No Longer Jyoti y as: Lovenox) Active 2017 Hospital metoprolol Notes: (Same No Longer Jyoti y tartrate as: Active 2016 Hospital Lopressor) Ondansetron Notes: (Same No Longer Ka ty as: Zofran) Active 2016 Hospital MEDICATION WASTE Product Size: 4 mg Product Wasted: _0__ mg Simethicone Notes: (Same No Longer Ka ty as: Mylicon) Active 2016 Hospital Bisacodyl Notes: (Same No Longer [facility] As: Active 2016 Hospital Dulcolax, Bisco-Lax) Acetaminophen Notes: Do No Longer Jyoti y not exceed 4 Active 2016 Hospital gm/day. (Same as: Tylenol) Jeff Kenny Notes: (Same No Longer 05/17/ H [facility] As: Tessalon Active 2016 [facility] Perles) "Do Not Crush" Loratadine Notes: 1 hr No Longer [facility] before meals Active 2016 Hospital (Same as: Claritin) Non-formular y item Hydralazine Notes: (Same No Longer Ka ty as: Active 2016 [facility] Apresoline) Push over 5 minutes Acetaminophen Notes: (Same No Longer [facility] 325 MG / as: [place] Active 2016 [facility] Hydrocodone 325/5) Do Bitartrate 5 MG not exceed Oral Tablet 4gm/day of [[place] 5/325] acetaminophe n. Acetaminophen Notes: Do No Longer Jyoti y 325 MG / not exceed Active 2016 [facility] Hydrocodone 4gm/day of Bitartrate 10 acetaminophe MG Oral Tablet n. (Same [[place] 10/325] as: [place] 325/10) Lorazepam Notes: (Same No Longer [facility] as: Ativan) Active 2016 Hospital Morphine 1 mg, 0.5 No Longer [facility] mL, Route: Active 2016 Hospital IVP, Drug form: SOLN, Q4H, Dosing Weight 74.545, kg, PRN Pain Score 7-10, if unable to take po, Start date: 05/17/16 16:41:00 ENDOSCOPY RN, Duration: 30 day, Stop date: 06/16/16 16:40:00 CDT Albuterol 0.833 Notes: (Same No Longer 05/17/ H [facility] MG/ML / as: Duoneb) Active [address] [place] [address] Ipratropium [place] 0.167 MG/ML Inhalant Solution Vancomycin 1,118.175 Inactive [facility] mg, Route: [address] [place] [address] IVPB, [id number], Dosing Weight 74.545, kg, TIME CRITICAL MEDICATION, Priority: STAT, Start date: 05/17/16 16:39:00 ENDOSCOPY RN, Duration: 30 day, Stop date: 06/16/16 8:39:00 CDT Clindamycin 600 mg, Inactive [facility] Route: IVPB, [address] [place], [place] [id number], Dosing Weight 74.545, kg, Priority: STAT, Start date: 05/17/16 16:39:00 ENDOSCOPY RN, Duration: 30 day, Stop date: 06/16/16 8:39:00 CDT Saline Flush Notes: (Same No Longer K aty 0.9% as: BD Active [address] [place] [address] Posiflush) Sodium Chloride 1,000 mL, No Longer K aty 0.154 MEQ/ML Rate: [address] [place] [address] Injectable ml/hr, Solution Infuse over: 10 hr, Route: IV, Dosing Weight 74.545 kg, Total Volume: 1,000, Start date: 05/17/16 16:39:00 ENDOSCOPY RN, Duration: 30 day, Stop date: 06/16/16 16:38:00 CDT Acetaminophen 100.4 F, Inactive [facility] Start date: [address] [place] [address] 05/17/16 16:39:00 ENDOSCOPY RN, Duration: 30 day, Stop date: 06/16/16 16:38:00 CDT Clindamycin 600 mg, 50 Inactive [facility] mL, Route: 2017 [facility] IVPB, Drug form: INJ, ONCE, Dosing Weight 74.545, kg, Priority: STAT, Start date: 05/17/16 12:31:00 ENDOSCOPY RN, Stop date: 05/17/16 12:31:00 ENDOSCOPY RN Symbicort 2 puff, Active [facility] 160/4.5 INHALATION, 2016 [facility] inhalation RBID, # 1 aerosol with ea, 0 adapter Refill(s) tiotropium 18 microgram Active [facility] 0.018 MG/ACTUAT = 1 cap, 2016 Hospita l Inhalant Powder INHALATION, [Spiriva] Daily, Use two inhalations of one capsule for each dose, # 30 cap, 1 Refill(s) predniSONE 10 See Special Active Jyoti y mg oral tablet Instructions 2016 Hosp ital , PO, Daily, 12 day regimen: Days 1-4 - 30 mg (3 tabs) daily Days 5-8 - 20 mg (2 tabs) daily Days 9-12 - 10 mg (1 tab) daily, X 12 day, # 24 tab, 0 Refill(s) methylPREDNISol Notes: (Same No Longer 07/18/ H [facility] one SODium as:Solu-MEDR Active 2015 Hospital SUCCinate OL, A-Methapred) Albuterol 0.833 Notes: (Same No Longer H [facility] MG/ML / as: Duoneb) Active 2015 Hospital Ipratropium [place] 0.167 MG/ML Inhalant Solution [DuoNeb] Acetylcysteine 200 mg, 1 No Longer Ka ty 200 MG/ML mL, Route: Active 2015 Hospital Inhalant NEB, Drug Solution Form: SOLN, Dosing Weight 68.182, kg, RQ6H, Start date: 07/18/15 14:00:00 CDT, Duration: 30 day, Stop date: 08/17/15 8:00:00 CDT Symbicort Notes: (Same No Longer [facility] 160/4.5 as: Active 2015 Hospital inhalation Symbicort) aerosol with WASTE: adapter Aerosol - Return to Pharmacy Spiriva Notes: (Same No Longer [facility] As: Spiriva) Active 2015 Hospital remove patch Notes: No Longer [facility] WASTE: F/P - Active 2015 Hospital P Waste Black; E - P Waste Black Ipratropium Notes: SEE No Longer [facility] [place] 0.2 RT Active 2015 Hospital MG/ML Inhalant DOCUMENTATIO Solution N (Same as:Atrovent) Levalbuterol Notes: SEE No Longer Jyoti y RT Active 2015 Hospital DOCUMENTATIO N (Same as:Xopenex) Non-Formular y Nicotine Notes: (Same No Longer [facility] as: Active 2016 Hospital Habitrol) WASTE: F/P - P Waste Black; E - P Waste Black Ipratropium Notes: SEE Inactive [facility] [place] 0.2 RT 2016 Hospital MG/ML Inhalant DOCUMENTATIO Solution N (Same as:Atrovent) Acetylcysteine 200 mg, 1 No Longer Ka ty 200 MG/ML mL, Route: Active 2016 Hospital Inhalant NEB, Drug Solution Form: SOLN, Dosing Weight 68.182, kg, RQID, Start date: 07/16/15 7:00:00 CDT, Duration: 30 day, Stop date: 08/14/15 19:00:00 CDT methylPREDNISol Notes: (Same No Longer 07/15/ M H [facility] one SODium as:Solu-MEDR Active 2016 Hospital [facility], A-Methapred) Albuterol 0.833 Notes: (Same No Longer 07/15/ M H [facility] MG/ML / as: Duoneb) Active 2016 Hospital Ipratropium [place] 0.167 MG/ML Inhalant Solution Levalbuterol Notes: SEE Inactive [facility] RT 2016 Hospital DOCUMENTATIO N (Same as:Xopenex) Non-Formular y methylPREDNISol Notes: (Same Inactive [facility] one as:Solu-MEDR 2016 Hospital OL, A-Methapred) methylPREDNISol Notes: (Same Inactive [facility] one SODium as:Solu-MEDR 2016 [facility] [place] [facility], A-Methapred) atorvastatin Notes: (Same No Longer K aty As: Lipitor) Active 2016 Hospital Plavix Notes: (Same No Longer Anush[facility] As: Plavix) Active 2016 Hospital Levaquin Notes: (Same No Longer [facility] as:Levaquin) Active 2016 Hospital Ativan Notes: (Same No Longer [facility] as: Ativan) Active 2016 Hospital Albuterol 0.83 Notes: SEE No Longer K aty MG/ML Inhalant RT Active 2016 Hospital Solution DOCUMENTATIO N (Same as: Proventil) Enoxaparin Notes: (Same No Longer Jyoti y as: Lovenox) Active 2016 Hospital Albuterol 0.833 Notes: (Same Inactive [facility] MG/ML / as: Duoneb) 2016 Hospital Ipratropium [place] 0.167 MG/ML Inhalant Solution Sodium Chloride 25 mL, No Longer Jyoti y 0.9% IV Route: IV, Active 2016 Hospital Start date: 07/15/15 18:14:00 CDT, Duration: 30 day, Stop date: 08/14/15 18:13:00 CDT, PRN Line Flush BD Normal Notes: (Same No Longer [facility] Saline Flush as: BD Active 2016 Hospital Posiflush) Ipratropium 500 Inactive [facility] microgram, 2016 Hospital Route: NEB, ONCE, Dosing Weight 68.182, kg, Start date: 07/15/15 18:11:00 CDT, Stop date: 07/15/15 18:11:00 CDT Xopenex Notes: Same Inactive An[facility] as: Xopenex 2016 Hospital Non-Formular y High Concentrated (0.5ml) SEE RT DOCUMENTATIO N Lorazepam Notes: (Same Inactive Anusha as: Ativan) 2016 [facility] Sodium Chloride 1,000 mL, Inactive Ka ty 0.154 MEQ/ML 1,000 ml/hr, 2016 Hospit al Injectable Infuse Over: Solution 1 hr, Route: IV, 1,000, Drug form: INJ, ONCE, Priority: STAT, Dosing Weight 68.182 kg, Start date: 07/15/15 18:05:00 CDT, Duration: 1 doses or times, Stop date: 07/15/15 18:05:00 CDT Magnesium Notes: Inactive An[facility] Sulfate WASTE: F/P - 2016 Hospital Sink; E - [facility] Tr[facility] Albuterol 0.833 Notes: (Same Inactive Anusha MG/ML / as: Duoneb) 2016 [facility] Ipratropium [place] 0.167 MG/ML Inhalant Solution [DuoNeb] Brovana Notes: SEE No Longer Anusha RT Active 2016 Hospital DOCUMENTATIO N Same as Brovana atorvastatin Notes: (Same Inactive Ka ty As: Lipitor) 2016 Hospital Plavix Notes: (Same Inactive Anusha As: Plavix) 2016 Hospital Levofloxacin 750 mg = 1 On Hold Anusha 750 MG Oral tab, PO, 2016 Hospital Tablet Q24H, X 10 [Levaquin] day, # 10 tab, 0 Refill(s) predniSONE 20 40 mg = 2 On Hold [facility] mg oral tablet tab, PO, 2016 Hospital Daily, X 5 day, # 10 tab, 0 Refill(s) Noe Notes: SEE Inactive Anusha RT 2016 Hospital DOCUMENTATIO N Same as Brovana Protonix Notes: Inactive [facility] Tablet 2016 Hospital should not be chewed or crushed. (Same as: Protonix) Albuterol 0.833 Notes: (Same Inactive Anusha MG/ML / as: Duoneb) 2016 [facility] Ipratropium [place] 0.167 MG/ML Inhalant Solution Solu-Medrol Notes: (Same Inactive Jyoti y as:Solu-MEDR 2016 Hospital OL, A-Methapred) Melatonin Notes: (Same Inactive Anusha as: 2016 [facility] Melatonin) Acetaminophen Notes: Do Inactive Anusha 325 MG / not exceed 2016 Hospital Hydrocodone 4gm/day of Bitartrate 10 acetaminophe MG Oral Tablet n. (Same [[place] 10/325] as: [place] 325/10) Hydralazine Notes: (Same Inactive Jyoti y as: [address] [place] [address] Apresoline) Push over 5 minutes Acetaminophen Notes: Do Inactive Anusha not exceed 4 [facility] gm/day. (Same as: Tylenol) Caitlin Cox Notes: (Same Inactive Anusha As: Tessalon 2016 [facility] Perles) "Do Not Crush" Morphine Notes: (Same Inactive Ansuha as:MORPhine 2016 Hospital Sulfate) Loratadine Notes: 1 hr Inactive [facility] before meals 2016 Hospital (Same as: Claritin) Bisacodyl Notes: (Same Inactive [facility]ush[facility] As: 2016 Hospital Dulcolax, Bisco-Lax) Ondansetron Notes: (Same Inactive Jyoti y as: Zofran) 2016 Hospital MEDICATION WASTE Product Size: 4 mg Product Wasted: _0__ mg Simethicone Notes: (Same Inactive Jyoti y as: Mylicon) 2016 Hospital Lorazepam Notes: (Same Inactive as: Ativan) 2016 Hospital Flagyl Notes: (Same Inactive Anusha as: Flagyl) 2016 Hospital Avoid alcohol. Levaquin Notes: (Same No Longer as:Levaquin) Active 2016 Hospital Enoxaparin Notes: (Same No Longer Jyoti y as: Lovenox) Active 2015 Hospital Vitamin C 500 mg, PO, On Hold Daily 2016 Hospital Albuterol 0.83 Notes: SEE Inactive Ka ty MG/ML Inhalant RT 2016 Hospital Solution DOCUMENTATIO N (Same as: Proventil) arformoterol 15 microgram On Hold y 0.0075 MG/ML = 2 mL, NEB, 2016 Hospit al Inhalant BID Solution [Brovana] Saline Flush Notes: (Same No Longer K aty 0.9% as: BD Active 2015 Hospital Posiflush) Sodium Chloride 1,000 mL, No Longer K aty 0.154 MEQ/ML Rate: 75 Active 2016 Hospital Injectable ml/hr, Solution Infuse over: 13.3 hr, Route: IV, Dosing Weight 71.932 kg, Total Volume: 1,000, Start date: 07/13/15 19:47:00 CDT, Duration: 30 day, Stop date: 08/12/15 19:46:00 CDT Morphine Notes: (Same No Longer as:MORPhine Active 2015 Hospital Sulfate) Acetaminophen Notes: (Same No Longer Anusha 325 MG / as: [place] Active 2015 Hospital Hydrocodone 325/5) Do Bitartrate 5 MG not exceed Oral Tablet 4gm/day of acetaminophe n. Docusate Notes: (Same No Longer Anusha as: Colace) Active 2015 Hospital Ondansetron Notes: (Same No Longer Ka ty as: Zofran) Active 2016 Hospital MEDICATION WASTE Product Size: 4 mg Product Wasted: _0__ mg Roflumilast 0.5 0 Refill(s) Inactive [facility] MG Oral Tablet 2016 Hospital [Daliresp] Albuterol 0.833 0 Refill(s) Inactive An[facility] MG/ML / 2016 Hospital Ipratropium [place] 0.167 MG/ML Inhalant Solution atorvastatin 10 10 mg = 1 On Hold Jyoti y mg oral tablet tab, PO, 2016 Hospital Bedtime, 0 Refill(s) Sodium Chloride 25 mL, No Longer Jyoti y 0.9% IV Route: IV, Active 2015 Hospital Start date: 07/13/15 15:59:00 CDT, Duration: 30 day, Stop date: 08/12/15 15:58:00 CDT, PRN Line Flush Albuterol 0.833 Notes: (Same Inactive Anusha MG/ML / as: Duoneb) 2016 [facility] Ipratropium [place] 0.167 MG/ML Inhalant Solution methylPREDNISol Notes: (Same Inactive Anusha one SODium as:Solu-MEDR 2016 Hospital SUCCinate OL, A-Methapred) Saline Flush Notes: (Same Inactive Ka ty 0.9% as: BD 2016 Hospital Posiflush) Doxycycline 100 mg, PO, No Longer Jyoti y Q12H Active 2016 Hospital Acetylcysteine Notes: No Longer Anusha 200 MG/ML WASTE: F/P - Active 2016 Hospital Inhalant Black; E - Solution [facility] Acetylcysteine Notes: No Longer Anusha 200 MG/ML WASTE: F/P - Active 2015 Hospital Inhalant Black; E - Solution [facility] methylPREDNISol Notes: (Same No Longer 05/05/ M H [facility]a one SODium as:Solu-MEDR Active 2016 Hospital SUCCinate OL, A-Methapred) Albuterol 0.833 Notes: (Same No Longer 05/05/ M H [facility] MG/ML / as: Duoneb) Active 2016 Hospital Ipratropium [place] 0.167 MG/ML Inhalant Solution [DuoNeb] BD Normal Notes: (Same No Longer An[facility]a Saline Flush as: BD Active 2016 Hospital Posiflush) Sodium Chloride IV, 0 ml/hr, No Longer H Anusha 0.9% IV PRN, PRN Active 2015 [facility] Line Flush, Start date: 05/04/15 17:42:00, Duration: 30, 25 ml Levaquin Notes: (Same No Longer Anusha as:Levaquin) Active 2016 [facility] Notes: (Same No Longer H Anusha As: Tessalon Active 2016 [facility] Perl) "Do Not Crush" Robitussin-AC Notes: (Same No Longer Anusha oral syrup As: Active 2015 [facility] Robitussin AC) Unknown Home 2 puffs, Active [facility] Medication INHALATION, 2016 Hospital BID, experimental drug no name, Refill(s) 0 AUGMENTIN 1 tablet No Longer Medical 875-125 MG TABS twice daily Active 2014 [facility] for 14 days PREDNISONE 10 4 po daily No Longer Me dical MG TABS on days 1-4, Active 2014 Group 3 po daily on days 5-8, 2 po daily on days 9-12, 1 po daily on days 13-16 PREDNISONE 10 4 po daily Active Medi rogelio MG TABS on days 1-4, 2015 Group 3 po daily on days 5-8, 2 po daily on days 9-12, 1 po daily on days 13-16 AUGMENTIN 1 tablet No Longer Medical 875-125 MG TABS twice daily Active 2013 Grou p for 10 days DOXYCYCLINE 1 tablet No Longer Medica l HYCLATE 100 MG twice daily Active 2013 Group TABS for 10 days SYMBICORT Two puffs Active Medical 160-4.5 MCG/ACT twice a day. 2013 Az up AERO ALENDRONATE 1 po weekly Active Medic al SODIUM 70 MG 2013 Group TABS SPIRIVA Inhale one Active Medical HANDIHALER 18 capsule 2013 Group MCG CAPS daily ARMOUR THYROID 1 po qd Active Medica l 60 MG TABS 2013 Group CLOPIDOGREL 1 po qd Active Medical BISULFATE 75 MG 2013 Group TABS FISH OIL 1000 1 po qd Active Medical MG CAPS 2013 Group VITAMIN D3 5000 1 po qd Active Medic al UNIT CAPS 2013 Group TESTOSTERONE inject .5 mL No Longer M edical CYPIONATE OIL every 10 Active 2013 Group days ALBUTEROL use as Active Medical SULFATE NEBU needed 2013 Group ARMOUR THYROID 1 po qd Active Medica l 60 MG TABS 2013 Group dexamethasone 10 mg, 1 mL, No Longer [facility] Route: IV, Active 2013 Hospital Drug form: INJ, Q6H, Start date: 05/17/13 12:00:00, Duration: 30 day, Stop date: 06/16/13 6:00:00 ciprofloxacin 500 mg = 1 Active [facility] 500 mg oral tab, PO, 2013 [facility] tablet Q12H, # 14 tab, 0 Refill(s) methylPREDNISol 40 mg, Inactive Anusha one SODium Route: IVP, 2013 [facility] SUCCinate Q6H, Dosing Weight 80.909, kg, Priority: Routine, Start date: 05/16/13 18:00:00, Duration: 30 day, Stop date: 06/15/13 12:00:00 Acetylcysteine 2 mL, Route: Inactive Anusha 100 MG/ML [facility], Drug 2013 [facility] Inhalant Form: SOLN, Solution Dosing Weight 80.909, kg, Q8H, Start date: 05/16/13 16:00:00, Duration: 30 day, Stop date: 06/15/13 8:00:00 acetylcysteine 200 mg, 1 No Longer Ka ty mL, Route: Active 2013 [facility], Drug Form: SOLN, RQ8H, Start date: 05/16/13 15:00:00, Duration: 30 day, Stop date: 06/15/13 7:00:00 Albuterol 0.833 3 ml, Route: No Longer H Anusha MG/ML / INHALATION, Active 2013 [facility] Ipratropium Drug Form: [place] 0.167 SOLN, Dosing MG/ML Inhalant Weight Solution 80.909, kg, [DuoNeb] RQ4H, Start date: 05/16/13 15:00:00, Duration: 30 day, Stop date: 06/15/13 11:00:00([facility] e as: Duoneb) Cipro 400 mg, 200 No Longer Anusha mL, Route: Active 2013 [facility] IVPB, Drug form: INJ, [id number], Dosing Weight 80.909, kg, Start date: 05/16/13 13:00:00, Duration: 30 day, Stop date: 06/15/13 1:00:00Do not refrigerate dexamethasone 4 mg, 1 mL, No Longer K aty Route: IV, Active 2013 [facility] Drug form: INJ, Q6H, Start date: 05/16/13 12:21:00, Duration: 30 day, Stop date: 06/15/13 12:00:00Conc entration: 4mg/ml Sodium Chloride 25 mL, No Longer Jyoti y 0.9% IV Route: IV, [facility] 2013 [facility] Start date: 05/16/13 12:18:00, Duration: 30 day, Stop date: 06/15/13 13:17:00, PRN Line Flush BD Normal 10 mL, No Longer An[facility] Saline Flush Route: IV, Active 2013 [facility] Drug Form: INJ, PRN, PRN Line Flush, Start date: 05/16/13 12:17:00, Duration: 30 day, Stop date: 06/15/13 13:16:00([facility] e as: BD Posiflush) Robitussin-AC 5 ml, Route: No Longer Anusha oral syrup PO, Drug Active 2013 [facility] Form: SYRP, Dosing Weight 80.909, kg, Q4H, PRN Cough/Conges tion, Start date: 05/16/13 12:04:00, Duration: 30 day, Stop date: 06/15/13 12:03:00(cod eine-guaifen esin 20-200mg/10m l LIQ) (Same As: Robitussin AC) predniSONE 20 20 mg, 1 PO Active Hinojosa Anusha mg oral tablet tab, PO, 2012 [facility] BID, 14 tab, Substitution Allowed, TAB DuoNeb 3 ml, INHALATION Active Hinojosa An[facility]a inhalation INHALATION, 2012 [facility] solution Q4H, 120 ea, Substitution Allowed, Maintenance, SOLN DuoNeb 3 ml, Route: NEB No Longer Hinojosa 09/11/ Anusha inhalation NEB, Drug Active 2012 [facility] solution Form: SOLN, Dosing Weight 80.028, kg, RQ4H, Start date: 09/11/12 15:00:00, Duration: 30 day, Stop date: 10/11/12 11:00:00 albuterol-iprat 3 ml, INHALATION Active Ellis ty ropium 2.5-0.5 INHALATION, 2012 [facility] mg inhalation QID, 30 ea, solution Substitution Allowed, Maintenance, SOLN Combivent 2 puff, INHALER Active [facility] inhalation INHALER, 2012 Hospital aerosol with QID, 14 gm, adapter Substitution Allowed, Maintenance Symbicort 2 puff, INHALATION Active [facility] 160/4.5 INHALATION, 2012 Hospital inhalation BID, 10 gm, aerosol with Substitution adapter Allowed, Maintenance, AERO Ventolin HFA 90 2 puff, INHALATION Active Ka ty mcg/inh INHALATION, 2012 Hospital inhalation QID, 17 gm, aerosol with Substitution adapter Allowed, Maintenance, AERO levofloxacin 500 mg, 1 PO Active [facility] 500 mg oral tab, PO, 2012 Hospital tablet Daily, 7 tab, Substitution Allowed predniSONE 20 20 mg, 1 PO Active [facility] mg oral tablet tab, PO, 2012 Hospital BID, Substitution Allowed, TAB Cipro 400 mg, 200 IVPB No Longer Hinojosa 09/11/ Anusha mL, Route: Active 2012 [facility] IVPB, Drug form: INJ, [id number], Dosing Weight 80.028, kg, Start date: 09/11/12 12:00:00, Duration: 30 day, Stop date: 10/11/12 0:00:00 methylPREDNISol 40 mg, 1 mL, IVP No Longer Hinojosa 09/11/ M H Anusha one SODium Route: IVP, Active 2012 [facility] SUCCinate Drug form: INJ, Q8H, Dosing Weight 80.028, kg, Priority: Routine, Start date: 09/11/12 12:00:00, Duration: 30 day, Stop date: 10/11/12 4:00:00 Sodium Chloride 25 mL, IV No Longer Hinojosa 09/11/ Jyoti y 0.9% IV Route: IV, Active [address] [place] [address] Start date: 09/11/12 11:48:00, Duration: 30 day, Stop date: 10/11/12 11:47:00, PRN Line Flush BD Normal 10 mL, IV No Longer Kannan 09/11Rico Tavares Saline Flush Route: IV, [address] Drug Form: INJ, PRN, PRN Line Flush, Start date: 09/11/12 11:48:00, Duration: 30 day, Stop date: 10/11/12 11:47:00 Robitussin-AC 5 ml, Route: PO No Longer Kannan 09/11/ PATTIE Tavares oral syrup PO, Drug [facility] 2012 [facility] Form: SYRP, Dosing Weight 80.028, kg, Q4H, PRN Cough/Conges tion, Start date: 09/11/12 11:36:00, Duration: 30 day, Stop date: 10/11/12 11:35:00 NS 1,000 mL 1,000 mL, IV No Longer Kannan 09/11Rico Tavares Rate: [address] [place] [address] Hospital ml/hr, Infuse over: 10 hr, Route: IV, [...] orally Active 250 mg orally JIMY W Ho u every 24 Infectious hours Disease Furosemide 1 tab Oral Active Oral JIMY W Kristin Infectious Disease Allergies, Adverse Reactions, Alerts Substance Category Reaction Severity Reaction Status Date Comments S ource type Reported KEFLEX Drug KEFLEX allergy 5 [facility] cephalexin Assertion Drug Active Data migr ated from [facility] on 07/10/14. Originally documented as KEFLEX. Anusha <sup>1, allergy 5 exudative dermat itis [facility] 2</sup> cephalexin Assertion Drug Active Data migr ated from [employer] on 05/11/16. Originally documented as Keflex. Mischer <sup>2, 3, allergy 7 Data migrated from [facility] on 07/10/14. Originally documented as KEFLEX. Neuro 4</sup> exudative dermat itis cephalexin Assertion Drug Active Data migr ated from [employer] on 05/11/16. Originally documented as Keflex. MH Anusha <sup>1, 2, allergy 7 Data migrated from [facility] on 07/10/14. Originally documented as KEFLEX. Hospital 3</sup> exudative dermat itis N.K.D.A. Adverse Info Not Adverse Active W Ho u Reaction Available Reaction 7 Infe ctiou s Diseas e sulfa Assertion Moderate Drug Active generalized M ischer drugs<sup> allergy rash Neuro 1</sup> Bactrim Assertion Drug Active OPI D allergy An[facility]a Keflex Assertion Drug Active OPI D allergy Anusha nka Assertion Drug Active Jyoti y allergy Hospital sulfa Assertion Moderate Drug Active generalized M H [facility] drugs<sup> allergy rash [facility] 3</sup> sulfa Assertion Moderate Drug Active generalized M H [facility] drugs<sup> allergy rash [facility] 4</sup> Immunizations No Data Provided for This Section Results Order Name Results Value Reference Date Interpretation Comments [facility] Range ELECTROLYTE Sodium Lvl 132 135 - 145 06/24 [facility] ELECTROLYTE Creatinine 0.51 0.50 - 06/24 [facility] S Lvl 1.40 /2016 Hospital ELECTROLYTE CO2 26 24 - 32 06/24 [facility] ELECTROLYTE Chloride Lvl 97 95 - 109 06/24 [facility] ELECTROLYTE Potassium 3.7 3.5 - 5.1 06/24 [facility] S Lvl Hospital ELECTROLYTE Calcium Lvl 7.8 8.5 - 10.5 06/24 [facility] ELECTROLYTE eGFR 109 06/24 Result Comment: The Hospital eGFR is calculated using the CKD-EPI formula. In most young, healthy individuals the eGFR will be >90 mL/min/1.73m2 . The eGFR declines with age. An eGFR of 60-89 may be normal in some populations, particularly the elderly, for whom the CKD-EPI formula has not been extensively validated. Use of the eGFR is not recommended in the following populations:< br/>
Vidhya viduals with unstable creatinine concentration s, including patients and those with serious co-morbid conditions.<b r/>
Patie nts with extremes in muscle mass or diet.

The data above are obtained from the National Kidney Disease Education Program (NKDEP) which additionally recommends that when the eGFR is used in patients with extremes of body mass index for purposes of drug dosing, the eGFR should be multiplied by the estimated BMI. ELECTROLYTE AGAP 12.7 10.0 - 06/24 [facility] S 20.0 [facility] ELECTROLYTE BUN 7 7 - 22 06/24 [facility] S [facility] ELECTROLYTE Glucose Lvl 101 70 - 99 06/24 [facility] BACTERIAL - Strep Negative Negative 06/23 SEROLOGY pneumoniae (06/23/16 10:36 AM) H ospital Ag BACTERIAL - Source Strep Cerebral 06/23 J[facility] y [facility]OLOGY [facility] Fluid BODY FLUIDS Glucose CSF 50 45 - 80 06/23 Hospital BODY FLUIDS Protein CSF 233 15 - 45 06/23 Result Comment: Hospital "Significant Findings called to AFSHIN MENDIETA_at 06/23/2016 12:14___by PAUL___. Read Back OK." BODY FLUIDS Color CSF Colorless Colorless 06/23 Jyoti y (06/23/16 10:36 AM) [facility] BODY FLUIDS Tube Num CSF 4 06/23 Hospital BODY FLUIDS WBC CSF 270 0 - 53 06/23 Hospital BODY FLUIDS Clarity CSF Clear Clear 06/23 [facility] (06/23/16 10:36 AM) [facility] BODY FLUIDS RBC CSF 73 0 - 03 06/23 Hospital BODY FLUIDS Supernat CSF Colorless Colorless 06/23 [facility] (06/23/16 10:36 AM) [facility] BODY FLUIDS Lymph CSF 82 40 - 80 06/23 Hospital BODY FLUIDS Segs CSF 5 0 - 6 06/23 Hospital BODY FLUIDS Monocyte CSF 12 15 - 45 06/23 Hospital BODY FLUIDS Eos CSF 1 06/23 Hospital IMMUNOLOGY VDRL Scr CSF Non Reactive Non 06/23 [facility] (06/23/16 10:36 AM) Reactive /2016 Hosp ital VIRAL - Enterovirus Negative Negative 06/23 [facility] SEROLOGY PCR CSF (06/23/16 10:36 AM) Hosp ital TOXICOLOGY Vanco Tr TND 1000 06/23 [facility] TOXICOLOGY Vanco Tr 11.2 06/23 [facility] BACTERIAL - Source Strep Urine 06/23 [facility] SEROLOGY *NA* /2016 Hospital (06/23/16 4:34 AM) BACTERIAL - Strep Negative Negative 06/23 [facility] SEROLOGY pneumoniae (06/23/16 4:34 AM) Ho spital Ag ELECTROLYTE Sodium Lvl 130 135 - 145 06/23 [facility] S Hospital ELECTROLYTE BUN 10 7 - 22 06/23 [facility] S [facility] ELECTROLYTE Glucose Lvl 98 70 - 99 06/23 [facility] ELECTROLYTE Creatinine 0.68 0.50 - 06/23 [facility] S Lvl 1.40 Hospital ELECTROLYTE Potassium 4.1 3.5 - 5.1 06/23 [facility] Lvl [facility] ELECTROLYTE eGFR 97 06/23 Result [facility] Comment: The Hospital eGFR is calculated using the CKD-EPI formula. In most young, healthy individuals the eGFR will be >90 mL/min/1.73m2 . The eGFR declines with age. An eGFR of 60-89 may be normal in some populations, particularly the elderly, for whom the CKD-EPI formula has not been extensively validated. Use of the eGFR is not recommended in the following populations:< br/>
Vidhya viduals with unstable creatinine concentration s, including patients and those with serious co-morbid conditions.<b r/>
Patie nts with extremes in muscle mass or diet.

The data above are obtained from the National Kidney Disease Education Program (NKDEP) which additionally recommends that when the eGFR is used in patients with extremes of body mass index for purposes of drug dosing, the eGFR should be multiplied by the estimated BMI. ELECTROLYTE AGAP 17.1 10.0 - 06/23 [facility] S 20.0 [facility] ELECTROLYTE Calcium Lvl 7.9 8.5 - 10.5 06/23 [facility] ELECTROLYTE CO2 19 24 - 32 06/23 Hospital ELECTROLYTE Chloride Lvl 98 95 - 109 06/23 [facility] CHEM PANEL Glucose Lvl 82 70 - 99 06/22 Hospital CHEM PANEL BUN 12 7 - 22 06/22 Hospital CHEM PANEL Sodium Lvl 133 135 - 145 06/22 Hospital CHEM PANEL Creatinine 0.67 0.50 - 06/22 [facility] Lvl 1.40 [facility] CHEM PANEL Potassium 3.7 3.5 - 5.1 06/22 [facility] Lvl [facility] CHEM PANEL Chloride Lvl 98 95 - 109 06/22 Hospital CHEM PANEL CO2 23 24 - 32 06/22 Hospital CHEM PANEL Calcium Lvl 8.0 8.5 - 10.5 06/22 Hospital CHEM PANEL eGFR 97 06/22 Result Comment: The Hospital eGFR is calculated using the CKD-EPI formula. In most young, healthy individuals the eGFR will be >90 mL/min/1.73m2 . The eGFR declines with age. An eGFR of 60-89 may be normal in some populations, particularly the elderly, for whom the CKD-EPI formula has not been extensively validated. Use of the eGFR is not recommended in the following populations:< br/>
Vidhya viduals with unstable creatinine concentration s, including patients and those with serious co-morbid conditions.<b r/>
Patie nts with extremes in muscle mass or diet.

The data above are obtained from the National Kidney Disease Education Program (NKDEP) which additionally recommends that when the eGFR is used in patients with extremes of body mass index for purposes of drug dosing, the eGFR should be multiplied by the estimated BMI. CHEM PANEL AGAP 15.7 10.0 - 06/22 20.0 Hospital CHEM PANEL Procalcitoni <0.05 0.00 - 06/22 [facility] n Lvl ng/mL 0.10 Hospital HEMATOLOGY MPV 9.6 7.4 - 10.4 06/22 Hospital HEMATOLOGY Platelet 97 133 - 450 06/22 Hospital HEMATOLOGY WBC 8.3 3.7 - 10.4 06/22 [facility] /2016 Hospital HEMATOLOGY RBC 4.78 4.70 - 06/22 [facility] 6.10 Hospital HEMATOLOGY Hgb 16.3 14.0 - 06/22 [facility] 18.0 Hospital HEMATOLOGY MCHC 34.0 32.0 - 06/22 [facility] 36.0 Hospital HEMATOLOGY RDW 13.7 11.5 - 06/22 [facility] 14.5 Hospital HEMATOLOGY Hct 48.0 42.0 - 06/22 [facility] 54.0 Hospital HEMATOLOGY MCV 100.4 80.0 - 06/22 [facility] 94.0 [facility] HEMATOLOGY MCH 34.2 27.0 - 06/22 MH [facility] 31.0 Hospital HEMATOLOGY Macrocyte 1+ None Seen 06/22 [facility] *ABN* /2016 [facility] (06/22/16 4:19 AM) HEMATOLOGY Monocytes # 1.0 0.0 - 0.8 06/22 [facility] HEMATOLOGY Basophils 0.2 0.0 - 1.0 06/22 [facility] HEMATOLOGY Monocytes 12.1 2.0 - 12.0 06/22 [facility] HEMATOLOGY Lymphocytes 5.5 20.0 - 06/22 [facility] 40.0 Hospital HEMATOLOGY Segs 81.7 45.0 - 06/22 [facility] 75.0 [facility] HEMATOLOGY Eosinophils 0.5 0.0 - 4.0 06/22 [facility] HEMATOLOGY Lymphocytes 0.5 1.0 - 5.5 06/22 [facility] # /2016 [facility] HEMATOLOGY Segs-Bands # 6.8 1.5 - 8.1 06/22 Jyoti y /2016 Hospital IMMUNOLOGY C-REACTIVE 57.8 <=2.9 mg/L 06/22 [facility] PROTEIN /2016 Hospital CHEM PANEL Lactic Acid 1.6 0.5 - 2.2 06/22 [facility] Lvl /2016 Hospital URINE AND UA Glucose 500 mg/dL Negative 06/21 [facility] STOOL mg/dL /2016 Hospital URINE AND UA Protein 100 mg/dL Negative 06/21 [facility] STOOL mg/dL Hospital URINE AND UA Bili Negative Negative 06/21 [facility] STOOL *NA* /2016 Hospital (06/21/16 5:17 PM) URINE AND UA Ketones 80 mg/dL Negative 06/21 [facility] STOOL mg/dL /2016 Hospital URINE AND UA Turbidity Slight Clear 06/21 [facility] STOOL *ABN* /2016 Hospital (06/21/16 5:17 PM) URINE AND UA pH 5.0 5.0 - 8.0 06/21 [facility] STOOL [facility] URINE AND UA Spec Grav 1.023 <=1.030 06/21 [facility] STOOL Hospital URINE AND UA Color Yellow Yellow 06/21 [facility] STOOL *NA* /2016 Hospital (06/21/16 5:17 PM) URINE AND UA Blood Small Negative 06/21 [facility] STOOL *ABN* /2016 Hospital (06/21/16 5:17 PM) URINE AND UA Mucus Moderate None Seen 06/21 [facility] STOOL /LPF /LPF Hospital URINE AND UA Nitrite Negative Negative 06/21 [facility]OOL (06/21/16 5:17 PM) Hospit al URINE AND UA Sq Epi Occasional Few /LPF 06/21 [facility] STOOL /LPF [facility] URINE AND UA Leuk Est Negative Negative 06/21 [facility] STOOL (06/21/16 5:17 PM) Hospit al URINE AND UA Bacteria Occasional None Seen 06/21 Ka ty STOOL /HPF /HPF Hospital URINE AND UA <=1.0 0.1 - 1.0 06/21 [facility] STOOL Urobilinogen mg/dL [facility] CARDIAC Troponin-I 0.02 0.00 - 06/21 [facility] ENZYMES 0.40 [facility] CARDIAC CK MB <0.5 0.5 - 3.6 06/21 [facility] ENZYMES [facility] CARDIAC Total CK 49 12 - 191 06/21 [facility] ENZYMES [facility] CARDIAC CK MB Index <1.0 0.0 - 2.5 06/21 [facility] CHEM PANEL B/C Ratio 25 6 - 25 06/21 [facility] CHEM PANEL Globulin 3.6 2.7 - 4.2 06/21 [facility] CHEM PANEL A/G Ratio 0.9 0.7 - 1.6 06/21 [facility] CHEM PANEL Alk Phos 56 39 - 136 06/21 [facility] CHEM PANEL AST 24 0 - 37 06/21 [facility] CHEM PANEL Bili Total 0.7 0.2 - 1.3 06/21 [facility] CHEM PANEL Albumin Lvl 3.2 3.5 - 5.0 06/21 [facility] CHEM PANEL ALT 31 0 - 65 06/21 [facility] CHEM PANEL Total 6.8 6.4 - 8.4 06/21 [facility] HEMATOLOGY PT 12.4 12.0 - 06/21 [facility] 14[facility]7 [facility] HEMATOLOGY INR 0.91 0.85 - 06/21 [facility] 1[facility]17 [facility] HEMATOLOGY MPV 9.2 7.4 - 10.4 06/21 [facility] HEMATOLOGY RDW 13.6 11.5 - 06/21 [facility] 14[facility]5 [facility] HEMATOLOGY Hgb 16.4 14.0 - 06/21 [facility] 18.0 [facility] HEMATOLOGY MCHC 34.3 32.0 - 06/21 [facility] 36[facility]0 [facility] HEMATOLOGY Platelet 99 133 - 450 06/21 [facility] HEMATOLOGY MCV 99.1 80.0 - 06/21 [facility] 94.0 [facility] HEMATOLOGY MCH 34.0 27.0 - 06/21 [facility] 31[facility]0 [facility] HEMATOLOGY Hct 47.9 42.0 - 06/21 [facility] 54[facility]0 [facility] HEMATOLOGY WBC 10.1 3.7 - 10.4 06/21 [facility] HEMATOLOGY RBC 4.83 4.70 - 06/21 [facility] 6[facility]10 [facility] HEMATOLOGY PTT 28.2 22.9 - 06/21 [facility] 35[facility]8 [facility] HEMATOLOGY Monocytes # 1.0 0.0 - 0.8 06/21 [facility] HEMATOLOGY Segs 85.4 45.0 - 06/21 [facility] 75[facility]0 [facility] HEMATOLOGY Basophils 0.3 0.0 - 1.0 06/21 [facility] HEMATOLOGY Eosinophils 0.2 0.0 - 4.0 06/21 [facility] HEMATOLOGY Monocytes 10.2 2.0 - 12.0 06/21 [facility] HEMATOLOGY Lymphocytes 3.9 20.0 - 06/21 [facility] 40[facility]0 [facility] HEMATOLOGY Lymphocytes 0.4 1.0 - 5.5 06/21 [facility] # /2017 Hospital HEMATOLOGY Segs-Bands # 8.6 1.5 - 8.1 06/21 [facility] y /2016 Hospital HEMATOLOGY Plt Morph Normal 06/21 [facility] (06/21/16 4:15 PM) /2016 Hospit al HEMATOLOGY RBC Morph Normal 06/21 [facility] (06/21/16 4:15 PM) /2016 Hospit al RAPID Grp A Strep Negative Negative 06/21 [facility] Scr (06/21/16 4:15 PM) /2016 Hospit al VIRAL - Influ B Negative Negative 06/21 [facility] (06/21/16 4:15 PM[facility] A Negative Negative 06/21 [facility] (06/21/16 4:15 PM) [facility] eGFR 92 05/18 Result Comment: The Hospital eGFR is calculated using the CKD-EPI formula. In most young, healthy individuals the eGFR will be >90 mL/min/1.73m2 . The eGFR declines with age. An eGFR of 60-89 may be normal in some populations, particularly the elderly, for whom the CKD-EPI formula has not been extensively validated. Use of the eGFR is not recommended in the following populations:< br/>
Vidhya viduals with unstable creatinine concentration s, including patients and those with serious co-morbid conditions.<b r/>
Patie nts with extremes in muscle mass or diet.

The data above are obtained from the National Kidney Disease Education Program (NKDEP) which additionally recommends that when the eGFR is used in patients with extremes of body mass index for purposes of drug dosing, the eGFR should be multiplied by the estimated BMI. CHEM PANEL Alk Phos 49 39 - 136 05/18 [facility] CHEM PANEL Bili Total 0.6 0.2 - 1.3 05/18 Hospital CHEM PANEL Total 5.0 6.4 - 8.4 05/18 Hospital CHEM PANEL AST 23 0 - 37 05/18 Hospital CHEM PANEL CO2 23 24 - 32 05/18 Hospital CHEM PANEL Albumin Lvl 2.5 3.5 - 5.0 05/18 Hospital CHEM PANEL Globulin 2.5 2.7 - 4.2 03/08 [facility] CHEM PANEL A/G Ratio 1.0 0.7 - 1.6 03/ Hospital CHEM PANEL ALT 21 0 - 65 03/ Hospital CHEM PANEL B/C Ratio 11 6 - 25 03/ Hospital CHEM PANEL Creatinine 0.76 0.50 - 03/08 [facility] Lvl 1.40 /2016 [facility] CHEM PANEL AGAP 14.6 10.0 - 0308 [facility] 20.0 [facility] CHEM PANEL Calcium Lvl 8.0 8.5 - 10.5 03/ Hospital CHEM PANEL Potassium 3.6 3.5 - 5.1 03 [facility] CHEM PANEL Chloride Lvl 110 95 - 109 03/ [facility] CHEM PANEL Glucose Lvl 95 70 - 99 03 Hospital CHEM PANEL Sodium Lvl 144 135 - 145 03/ Hospital CHEM PANEL BUN 8 7 - 22 03/ Hospital HEMATOLOGY Eosinophils 3.1 0.0 - 4.0 03/08 [facility] HEMATOLOGY Lymphocytes 1.4 1.0 - 5.5 03 [facility] # [facility] HEMATOLOGY Segs-Bands # 3.2 1.5 - 8.1 03 [facility] HEMATOLOGY Monocytes 11.9 2.0 - 12.0 03/ [facility] HEMATOLOGY Basophils 0.4 0.0 - 1.0 03 [facility] HEMATOLOGY Macrocyte 1+ None Seen 05/18 [facility] *ABN* /2016 [facility] (05/18/16 5:43 AM) HEMATOLOGY Eosinophils 0.2 0.0 - 0.5 03/08 [facility] # [facility] HEMATOLOGY Monocytes # 0.6 0.0 - 0.8 03/ [facility] HEMATOLOGY Lymphocytes 25.2 20.0 - 03/08 [facility] 40.0 [facility] HEMATOLOGY Segs 59.4 45.0 - 03/08 [facility] 75.0 [facility] HEMATOLOGY RBC 3.95 4.70 - 03/08 [facility] 6.10 [facility] HEMATOLOGY WBC 5.4 3.7 - 10.4 03 [facility] HEMATOLOGY Platelet 100 133 - 450 05/18 [facility] HEMATOLOGY RDW 14.1 11.5 - 05/18 [facility] 14[facility]5 [facility] HEMATOLOGY MPV 9.1 7.4 - 10.4 05/18 [facility] HEMATOLOGY MCV 104.8 80.0 - 05/18 [facility] 94[facility]0 [facility] HEMATOLOGY MCHC 33.5 32.0 - 05/18 [facility] 36[facility]0 [facility] HEMATOLOGY MCH 35.1 27.0 - 05/18 [facility] 31[facility]0 [facility] HEMATOLOGY Hct 41.3 42.0 - 05/18 [facility] 54.0 [facility] HEMATOLOGY Hgb 13.9 14.0 - 05/18 [facility] 18[facility]0 [facility] CHEM PANEL Lactic Acid 1.2 0.5 - 2.2 05/18 [facility] IMMUNOLOGY C-REACTIVE <2.9 <=2.9 mg/L 05/18 [facility] HEMATOLOGY MPV 9.3 7.4 - 10.4 05/17 [facility] HEMATOLOGY Platelet 136 133 - 450 05/17 [facility] HEMATOLOGY RDW 14.3 11.5 - 05/17 [facility] 14[facility]5 [facility] HEMATOLOGY MCHC 34.4 32.0 - 05/17 [facility] 36[facility]0 [facility] HEMATOLOGY Hgb 17.1 14.0 - 05/17 [facility] 18[facility]0 [facility] HEMATOLOGY RBC 4.78 4.70 - 05/17 [facility] 6.10 [facility] HEMATOLOGY WBC 8.4 3.7 - 10.4 05/17 [facility] HEMATOLOGY MCH 35.7 27.0 - 05/17 [facility] 31[facility]0 [facility] HEMATOLOGY MCV 103.6 80.0 - 05/17 [facility] 94[facility]0 [facility] HEMATOLOGY Hct 49.6 42.0 - 05/17 [facility] 54.0 [facility] HEMATOLOGY Macrocyte 1+ None Seen 05/17 [facility] *ABN* /2016 [facility] (05/17/16 1:08 PM) HEMATOLOGY Monocytes # 0.9 0.0 - 0.8 05/17 [facility] HEMATOLOGY Eosinophils 0.1 0.0 - 0.5 05/17 [facility] # [facility] HEMATOLOGY Segs-Bands # 6.0 1.5 - 8.1 03 [facility] HEMATOLOGY Eosinophils 1.1 0.0 - 4.0 03 [facility] HEMATOLOGY Lymphocytes 1.3 1.0 - 5.5 03 [facility] # [facility] HEMATOLOGY Basophils 0.5 0.0 - 1.0 03 [facility] HEMATOLOGY Monocytes 10.9 2.0 - 12.0 05/17 [facility] HEMATOLOGY Lymphocytes 15.9 20.0 - 05/17 [facility] 40[facility]0 [facility] HEMATOLOGY Segs 71.6 45.0 - 03 [facility] 75[facility]0 [facility] CHEM PANEL Lactic Acid 1.7 0.5 - 2.2 05/17 [facility] ELECTROLYTE AGAP 18.3 10.0 - 03 [facility] S 20.0 [facility] ELECTROLYTE B/C Ratio 6 6 - 25 05/17 [facility] ELECTROLYTE Globulin 3.7 2.7 - 4.2 05/17 [facility] ELECTROLYTE A/G Ratio 1.0 0.7 - 1.6 05/17 [facility] ELECTROLYTE ALT 32 0 - 65 05/17 [facility] ELECTROLYTE Albumin Lvl 3.7 3.5 - 5.0 05/17 [facility] ELECTROLYTE AST 33 0 - 37 03 [facility] ELECTROLYTE Alk Phos 68 39 - 136 05/17 [facility] ELECTROLYTE Bili Total 0.5 0.2 - 1.3 05/17 [facility] ELECTROLYTE Chloride Lvl 104 95 - 109 05/17 [facility] ELECTROLYTE Sodium Lvl 143 135 - 145 03 [facility] ELECTROLYTE Potassium 3.3 3.5 - 5.1 05/17 [facility] ELECTROLYTE Calcium Lvl 8.8 8.5 - 10.5 05/17 [facility] ELECTROLYTE CO2 24 24 - 32 03 [facility] ELECTROLYTE Total 7.4 6.4 - 8.4 05/17 [facility] ELECTROLYTE Creatinine 0.89 0.50 - 05/17 [facility] S Lvl 1.40 /2016 Hospital ELECTROLYTE BUN 5 7 - 22 05/17 [facility] ELECTROLYTE Glucose Lvl 89 70 - 99 05/17 [facility] ELECTROLYTE eGFR 87 05/17 Result Comment: The Hospital eGFR is calculated using the CKD-EPI formula. In most young, healthy individuals the eGFR will be >90 mL/min/1.73m2 . The eGFR declines with age. An eGFR of 60-89 may be normal in some populations, particularly the elderly, for whom the CKD-EPI formula has not been extensively validated. Use of the eGFR is not recommended in the following populations:< br/>
Vidhya viduals with unstable creatinine concentration s, including patients and those with serious co-morbid conditions.<b r/>
Patie nts with extremes in muscle mass or diet.

The data above are obtained from the National Kidney Disease Education Program (NKDEP) which additionally recommends that when the eGFR is used in patients with extremes of body mass index for purposes of drug dosing, the eGFR should be multiplied by the estimated BMI. CHEM PANEL eGFR 92 07/18 Result Comment: The Hospital eGFR is calculated using the CKD-EPI formula. In most young, healthy individuals the eGFR will be >90 mL/min/1.73m2 . The eGFR declines with age. An eGFR of 60-89 may be normal in some populations, particularly the elderly, for whom the CKD-EPI formula has not been extensively validated. Use of the eGFR is not recommended in the following populations:< br/>
Vidhya viduals with unstable creatinine concentration s, including patients and those with serious co-morbid conditions.<b r/>
Patie nts with extremes in muscle mass or diet.

The data above are obtained from the National Kidney Disease Education Program (NKDEP) which additionally recommends that when the eGFR is used in patients with extremes of body mass index for purposes of drug dosing, the eGFR should be multiplied by the estimated BMI. CHEM PANEL Calcium Lvl 8.8 8.5 - 10.5 07/18 [facility] CHEM PANEL Creatinine 0.78 0.50 - 08 [facility] Lvl 1.40 /2015 Hospital CHEM PANEL Glucose Lvl 181 70 - 99 05/08 [facility] /2015 Hospital CHEM PANEL Chloride Lvl 104 95 - 109 05/08 [facility] /2015 Hospital CHEM PANEL BUN 19 7 - 22 05/08 [facility] /2015 Hospital CHEM PANEL Sodium Lvl 139 135 - 145 05/08 [facility] /2015 Hospital CHEM PANEL Potassium 4.5 3.5 - 5.1 05/08 [facility] Lvl /2015 Hospital CHEM PANEL CO2 28 24 - 32 05/08 [facility] /2015 Hospital CHEM PANEL AGAP 11.5 10.0 - 0508 [facility] 20.0 /2015 Hospital HEMATOLOGY Macrocyte 1+ None Seen 07/18 [facility] *ABN* /2015 Hospital (07/19/15 2:27 PM) HEMATOLOGY Basophils # 0.2 0.0 - 0.2 05/ [facility] /2016 [facility] HEMATOLOGY Segs-Bands # 11.8 1.5 - 8.1 05 [facility] y /2015 Hospital HEMATOLOGY Eosinophils 0.0 0.0 - 0.5 05/08 [facility] # /2016 Hospital HEMATOLOGY Monocytes # 0.4 0.0 - 0.8 05/08 [facility] /2015 [facility] HEMATOLOGY Basophils 1.4 0.0 - 1.0 05/08 [facility] /2015 Hospital HEMATOLOGY Lymphocytes 0.3 1.0 - 5.5 05/ [facility] # /2016 Hospital HEMATOLOGY Lymphocytes 2.0 20.0 - 0508 [facility] 40.0 [facility] HEMATOLOGY Segs 93.2 45.0 - 0508 [facility] 75.0 [facility] HEMATOLOGY Plt Morph Normal 07/18 [facility] (07/19/15 2:27 PM) [facility] HEMATOLOGY RBC Morph Normal 07/18 [facility] (07/19/15 2:27 PM) [facility]ospita [facility] HEMATOLOGY Eosinophils 0.0 0.0 - 4.0 05/08 [facility] /2015 [facility] HEMATOLOGY Monocytes 3.4 2.0 - 12.0 05/08 [facility] /2016 Hospital HEMATOLOGY MCH 32.9 27.0 - 05/08 [facility] 31.0 [facility] HEMATOLOGY MCV 101.1 80.0 - 0508 [facility] 94.0 [facility] HEMATOLOGY MCHC 32.6 32.0 - 05/08 [facility] 36.0 /2015 Hospital HEMATOLOGY WBC 12.6 3.7 - 10.4 07/18 [facility] /2015 [facility] HEMATOLOGY RBC 4.21 4.70 - 07/18 [facility] 6.10 [facility] HEMATOLOGY Hgb 13.9 14.0 - 07/18 [facility] 18.0 [facility] HEMATOLOGY Hct 42.6 42.0 - 07/18 [facility] 54.0 [facility] HEMATOLOGY MPV 8.4 7.4 - 10.4 07/18 [facility] /2015 [facility] HEMATOLOGY Platelet 165 133 - 450 07/18 [facility] HEMATOLOGY RDW 14.6 11.5 - 07/18 [facility] 14.5 [facility] ELECTROLYTE AGAP 9.3 10.0 - 07/15 [facility] S 20.0 [facility] ELECTROLYTE B/C Ratio 14 6 - 25 07/15 [facility] S [facility] ELECTROLYTE Globulin 3.2 2.0 - 4.0 07/15 [facility] S [facility] ELECTROLYTE A/G Ratio 0.9 0.7 - 1.6 07/15 [facility] S [facility] ELECTROLYTE Potassium 4.3 3.5 - 5.1 07/15 [facility] S Lvl /2015 [facility] ELECTROLYTE Chloride Lvl 106 95 - 109 05 [facility] S [facility] ELECTROLYTE Sodium Lvl 139 135 - 145 07/15 [facility] S [facility] ELECTROLYTE eGFR 76 07/15 Result Comment: The Hospital eGFR is calculated using the CKD-EPI formula. In most young, healthy individuals the eGFR will be >90 mL/min/1.73m2 . The eGFR declines with age. An eGFR of 60-89 may be normal in some populations, particularly the elderly, for whom the CKD-EPI formula has not been extensively validated. Use of the eGFR is not recommended in the following populations:< br/>
Vidhya viduals with unstable creatinine concentration s, including patients and those with serious co-morbid conditions.<b r/>
Patie nts with extremes in muscle mass or diet.

The data above are obtained from the National Kidney Disease Education Program (NKDEP) which additionally recommends that when the eGFR is used in patients with extremes of body mass index for purposes of drug dosing, the eGFR should be multiplied by the estimated BMI. ELECTROLYTE Glucose Lvl 178 70 - 99 05/05 [facility] S /2015 [facility] ELECTROLYTE BUN 14 7 - 22 05/05 [facility] S /2015 [facility] ELECTROLYTE Creatinine 1.01 0.50 - 05/05 [facility] S Lvl 1.40 /2015 [facility] ELECTROLYTE Calcium Lvl 8.2 8.5 - 10.5 05/05 [facility] /2015 [facility] ELECTROLYTE CO2 28 24 - 32 05/05 [facility] S /2015 [facility] ELECTROLYTE Albumin Lvl 3.0 3.5 - 5.0 05/05 [facility] y S [facility] ELECTROLYTE ALT 29 0 - 65 05/05 [facility] S /2015 [facility] ELECTROLYTE Total 6.2 6.4 - 8.4 05/05 [facility] S Protein [facility] ELECTROLYTE Bili Total 0.4 0.2 - 1.3 05/05 [facility] S [facility] ELECTROLYTE AST 36 0 - 37 05/05 [facility] S [facility] ELECTROLYTE Alk Phos 56 39 - 136 05/05 [facility] S [facility] HEMATOLOGY Lymphocytes 2.3 20.0 - 05/05 [facility] 40.0 [facility] HEMATOLOGY Segs-Bands # 10.4 1.5 - 8.1 05/05 [facility] y [facility] HEMATOLOGY Basophils 0.0 0.0 - 1.0 05/05 [facility] /2016 [facility] HEMATOLOGY Monocytes 3.2 2.0 - 12.0 05/05 [facility] 2016 [facility] HEMATOLOGY Segs 94.5 45.0 - 05/05 [facility] 75.0 [facility] HEMATOLOGY Basophils # 0.0 0.0 - 0.2 05/05 [facility] /2016 [facility] HEMATOLOGY Eosinophils 0.0 0.0 - 0.5 05/05 [facility] # /2016 Hospital HEMATOLOGY Eosinophils 0.0 0.0 - 4.0 05/05 [facility] /2016 [facility] HEMATOLOGY Monocytes # 0.3 0.0 - 0.8 05/05 [facility] /2016 [facility] HEMATOLOGY Lymphocytes 0.3 1.0 - 5.5 05/05 [facility] # /2016 [facility] HEMATOLOGY MCHC 33.3 32.0 - 05/05 [facility] 36.0 /2016 Hospital HEMATOLOGY MPV 8.4 7.4 - 10.4 05/05 [facility] /2016 [facility] HEMATOLOGY Platelet 167 133 - 450 05/05 [facility] HEMATOLOGY MCH 33.6 27.0 - 05 [facility] 31.0 /2015 [facility] HEMATOLOGY RDW 15.5 11.5 - 05 [facility] 14.5 [facility] HEMATOLOGY Hgb 13.6 14.0 - 05 [facility] 18.0 [facility] HEMATOLOGY RBC 4.05 4.70 - 07/15 [facility] 6.10 /2015 [facility] HEMATOLOGY MCV 100.9 80.0 - 05 [facility] 94.0 /2015 [facility] HEMATOLOGY Hct 40.9 42.0 - 05 [facility] 54.0 /2015 [facility] HEMATOLOGY WBC 11.0 3.7 - 10.4 05 Hospital CHEM PANEL BUN 14 7 - 22 05 [facility] CHEM PANEL Sodium Lvl 143 135 - 145 05 [facility] CHEM PANEL Glucose Lvl 140 70 - 99 07/14 [facility] CHEM PANEL Chloride Lvl 107 95 - 109 07/14 [facility] CHEM PANEL Potassium 4.1 3.5 - 5.1 07/14 [facility] CHEM PANEL CO2 25 24 - 32 05 Hospital CHEM PANEL Albumin Lvl 3.5 3.5 - 5.0 07/14 [facility] CHEM PANEL Calcium Lvl 8.9 8.5 - 10.5 07/14 Hospital CHEM PANEL eGFR 63 05 Result Comment: The Hospital eGFR is calculated using the CKD-EPI formula. In most young, healthy individuals the eGFR will be >90 mL/min/1.73m2 . The eGFR declines with age. An eGFR of 60-89 may be normal in some populations, particularly the elderly, for whom the CKD-EPI formula has not been extensively validated. Use of the eGFR is not recommended in the following populations:< br/>
Vidhya viduals with unstable creatinine concentration s, including patients and those with serious co-morbid conditions.<b r/>
Patie nts with extremes in muscle mass or diet.

The data above are obtained from the National Kidney Disease Education Program (NKDEP) which additionally recommends that when the eGFR is used in patients with extremes of body mass index for purposes of drug dosing, the eGFR should be multiplied by the estimated BMI. CHEM PANEL AST 35 0 - 37 05/ [facility] CHEM PANEL Creatinine 1.17 0.50 - 05 [facility] Lvl 1.40 /2015 [facility] CHEM PANEL ALT 40 0 - 65 05/ [facility] CHEM PANEL Total 7.0 6.4 - 8.4 05 [facility] Protein [facility] CHEM PANEL Alk Phos 66 39 - 136 05/ [facility] CHEM PANEL Bili Total 0.4 0.2 - 1.3 05/ [facility] CHEM PANEL AGAP 15.1 10.0 - 05 [facility] 20.0 [facility] CHEM PANEL Globulin 3.5 2.0 - 4.0 05/ [facility] CHEM PANEL A/G Ratio 1.0 0.7 - 1.6 07/14 [facility] CHEM PANEL B/C Ratio 12 6 - 25 05/ [facility] HEMATOLOGY INR 0.98 0.85 - 05 [facility] 1.17 [facility] HEMATOLOGY PT 13.3 12.0 - 05 [facility] 14.7 [facility] HEMATOLOGY Platelet 218 133 - 450 05 [facility] HEMATOLOGY MPV 8.1 7.4 - 10.4 05/ [facility] HEMATOLOGY Hct 45.9 42.0 - 05 [facility] 54.0 [facility] HEMATOLOGY MCHC 32.4 32.0 - 05 [facility] 36.0 [facility] HEMATOLOGY RDW 15.2 11.5 - 05 [facility] 14.5 /2015 Hospital HEMATOLOGY MCV 101.9 80.0 - 05 [facility] 94.0 /2015 [facility] HEMATOLOGY MCH 33.0 27.0 - 05/04 [facility] 31.0 [facility] HEMATOLOGY WBC 17.8 3.7 - 10.4 05 [facility] HEMATOLOGY RBC 4.51 4.70 - 05 [facility] 6.10 [facility] HEMATOLOGY Hgb 14.9 14.0 - 05 [facility] 18.0 [facility] HEMATOLOGY Monocytes # 1.1 0.0 - 0.8 05/ MH [facility] HEMATOLOGY Eosinophils 0.0 0.0 - 0.5 07/14 [facility] # /2015 Hospital HEMATOLOGY Segs-Bands # 15.4 1.5 - 8.1 07/14 [facility] y [facility] HEMATOLOGY Lymphocytes 1.4 1.0 - 5.5 07/14 [facility] # /2015 Hospital HEMATOLOGY Eosinophils 0.0 0.0 - 4.0 07/14 [facility] HEMATOLOGY Basophils # 0.0 0.0 - 0.2 07/14 [facility] HEMATOLOGY Basophils 0.1 0.0 - 1.0 07/14 [facility] HEMATOLOGY Macrocyte 1+ None Seen 07/14 [facility] *ABN* /2015 [facility] (07/15/15 6:15 PM) HEMATOLOGY Monocytes 6.0 2.0 - 12.0 07/14 [facility] HEMATOLOGY Plt Morph Normal 07/14 [facility] (07/15/15 6:15 PM) [facility] HEMATOLOGY RBC Morph Normal 07/14 [facility] (07/15/15 6:15 PM) [facility] HEMATOLOGY Lymphocytes 7.7 20.0 - 07/14 [facility] 40.0 [facility] HEMATOLOGY Segs 86.2 45.0 - 07/14 [facility] 75.0 [facility] CHEM PANEL eGFR 88 07/13 Result Comment: The Hospital eGFR is calculated using the CKD-EPI formula. In most young, healthy individuals the eGFR will be >90 mL/min/1.73m2 . The eGFR declines with age. An eGFR of 60-89 may be normal in some populations, particularly the elderly, for whom the CKD-EPI formula has not been extensively validated. Use of the eGFR is not recommended in the following populations:< br/>
Vidhya viduals with unstable creatinine concentration s, including patients and those with serious co-morbid conditions.<b r/>
Patie nts with extremes in muscle mass or diet.

The data above are obtained from the National Kidney Disease Education Program (NKDEP) which additionally recommends that when the eGFR is used in patients with extremes of body mass index for purposes of drug dosing, the eGFR should be multiplied by the estimated BMI. CHEM PANEL AGAP 11.4 10.0 - 07/13 [facility] 20.0 /2015 [facility] CHEM PANEL Calcium Lvl 8.9 8.5 - 10.5 05/ [facility] CHEM PANEL CO2 28 24 - 32 05/ [facility] CHEM PANEL BUN 10 7 - 22 05/ [facility] CHEM PANEL Creatinine 0.87 0.50 - 05/03 [facility] Lvl 1.40 /2015 [facility] CHEM PANEL Glucose Lvl 149 70 - 99 05/ [facility] CHEM PANEL Sodium Lvl 142 135 - 145 05/ [facility] CHEM PANEL Potassium 4.4 3.5 - 5.1 05/ [facility] Lvl /2015 [facility] CHEM PANEL Chloride Lvl 107 95 - 109 05/ [facility] HEMATOLOGY Basophils # 0.0 0.0 - 0.2 05/ [facility] HEMATOLOGY Eosinophils 0.0 0.0 - 0.5 05/ [facility] # /2015 Hospital HEMATOLOGY Monocytes # 0.1 0.0 - 0.8 05/ [facility] HEMATOLOGY Monocytes 1.9 2.0 - 12.0 05/ [facility] HEMATOLOGY Segs 92.6 45.0 - 05/03 [facility] 75.0 [facility] HEMATOLOGY Lymphocytes 5.5 20.0 - 05/03 [facility] 40.0 [facility] HEMATOLOGY Basophils 0.0 0.0 - 1.0 05/ [facility] HEMATOLOGY Eosinophils 0.0 0.0 - 4.0 05/ [facility] HEMATOLOGY Segs-Bands # 5.1 1.5 - 8.1 05 [facility] HEMATOLOGY Lymphocytes 0.3 1.0 - 5.5 05/ [facility] # /2015 [facility] HEMATOLOGY MCV 100.8 80.0 - 05/03 [facility] 94.0 [facility] HEMATOLOGY Platelet 147 133 - 450 05/ [facility] HEMATOLOGY MPV 8.1 7.4 - 10.4 05/ [facility] HEMATOLOGY RDW 14.9 11.5 - 05/03 [facility] 14.5 [facility] HEMATOLOGY Hgb 13.6 14.0 - 05/03 [facility] 18.0 [facility] HEMATOLOGY RBC 4.11 4.70 - 05/03 [facility] 6.10 /2015 [facility] HEMATOLOGY Hct 41.5 42.0 - 07/13 [facility] 54.0 /2015 [facility] HEMATOLOGY WBC 5.5 3.7 - 10.4 05/ [facility] /2015 [facility] HEMATOLOGY MCH 33.0 27.0 - 05 [facility] 31.0 /2015 [facility] HEMATOLOGY MCHC 32.7 32.0 - 07/13 [facility] 36.0 /2015 [facility] CHEM PANEL eGFR 93 / Result Comment: The Hospital eGFR is calculated using the CKD-EPI formula. In most young, healthy individuals the eGFR will be >90 mL/min/1.73m2 . The eGFR declines with age. An eGFR of 60-89 may be normal in some populations, particularly the elderly, for whom the CKD-EPI formula has not been extensively validated. Use of the eGFR is not recommended in the following populations:< br/>
Vidhya viduals with unstable creatinine concentration s, including patients and those with serious co-morbid conditions.<b r/>
Patie nts with extremes in muscle mass or diet.

The data above are obtained from the National Kidney Disease Education Program (NKDEP) which additionally recommends that when the eGFR is used in patients with extremes of body mass index for purposes of drug dosing, the eGFR should be multiplied by the estimated BMI. CHEM PANEL Creatinine 0.76 0.50 - 07/13 [facility] Lvl 1.40 /2015 [facility] HEMATOLOGY Platelet 159 133 - 450 07/13 [facility] HEMATOLOGY PTT 26.6 22.9 - 07/13 [facility] 35.8 /2016 [facility] CARDIAC Total CK 70 12 - 191 07/12 [facility] ENZYMES /2015 Hospital CARDIAC Troponin-I <0.02 0.00 - 05/ [facility] ENZYMES 0.40 /2015 [facility] CARDIAC CK MB 1.7 0.5 - 3.6 / [facility] ENZYMES /2015 [facility] CARDIAC CK MB Index 2.4 0.0 - 2.5 / [facility] ENZYMES /2015 [facility] CHEM PANEL AST 28 0 - 37 05/ [facility] CHEM PANEL ALT 30 0 - 65 05/ [facility] CHEM PANEL Albumin Lvl 3.0 3.5 - 5.0 / Hospital CHEM PANEL Total 6.6 6.4 - 8.4 07/12 [facility] CHEM PANEL Calcium Lvl 8.8 8.5 - 10.5 07/12 [facility] CHEM PANEL Globulin 3.6 2.0 - 4.0 / Hospital CHEM PANEL B/C Ratio 6 6 - 25 07/12 [facility] CHEM PANEL AGAP 11.8 10.0 - 07/12 [facility] 20.0 [facility] CHEM PANEL Bili Total 0.4 0.2 - 1.3 07/12 [facility] CHEM PANEL Alk Phos 65 39 - 136 07/12 [facility] CHEM PANEL BUN 5 7 - 22 07/12 [facility] CHEM PANEL Glucose Lvl 141 70 - 99 07/12 [facility] CHEM PANEL CO2 29 24 - 32 07/12 [facility] CHEM PANEL Chloride Lvl 104 95 - 109 07/12 [facility] CHEM PANEL Potassium 3.8 3.5 - 5.1 07/12 [facility] CHEM PANEL Sodium Lvl 141 135 - 145 07/12 [facility] CHEM PANEL Creatinine 0.80 0.50 - 05 [facility] CHEM PANEL A/G Ratio 0.8 0.7 - 1.6 07/12 [facility] CHEM PANEL eGFR 91 / Comment: The Hospital eGFR is calculated using the CKD-EPI formula. In most young, healthy individuals the eGFR will be >90 mL/min/1.73m2 . The eGFR declines with age. An eGFR of 60-89 may be normal in some populations, particularly the elderly, for whom the CKD-EPI formula has not been extensively validated. Use of the eGFR is not recommended in the following populations:< br/>
Vidhya viduals with unstable creatinine concentration s, including patients and those with serious co-morbid conditions.<b r/>
Patie nts with extremes in muscle mass or diet.

The data above are obtained from the [employer] Program (NKDEP) which additionally recommends that when the eGFR is used in patients with extremes of body mass index for purposes of drug dosing, the eGFR should be multiplied by the estimated BMI. HEMATOLOGY MPV 8.5 7.4 - 10.4 05/02 [facility]2015 [facility] HEMATOLOGY RDW 15.2 11.5 - 05/ [facility] 14.5 /2015 [facility] HEMATOLOGY Platelet 166 133 - 450 05/ [facility] /2015 [facility] HEMATOLOGY MCHC 33.1 32.0 - 05/ [facility] 36.0 /2015 [facility] HEMATOLOGY WBC 5.8 3.7 - 10.4 05/ [facility] /2015 [facility] HEMATOLOGY MCV 99.9 80.0 - 05/ [facility] 94.0 /2015 [facility] HEMATOLOGY MCH 33.0 27.0 - 05/ [facility] 31.0 /2015 [facility] HEMATOLOGY Hct 42.8 42.0 - 05/ [facility] 54.0 /2015 [facility] HEMATOLOGY RBC 4.28 4.70 - 07/12 [facility] 6.10 [facility] HEMATOLOGY Hgb 14.2 14.0 - 07/12 [facility] 18.0 [facility] HEMATOLOGY Monocytes 5.8 2.0 - 12.0 05/ [facility] /2015 [facility] HEMATOLOGY Eosinophils 0.0 0.0 - 4.0 05/ [facility] /2015 [facility] HEMATOLOGY Lymphocytes 10.7 20.0 - 05/ [facility] 40.0 /2015 [facility] HEMATOLOGY Monocytes # 0.3 0.0 - 0.8 05/ [facility] /2015 [facility] HEMATOLOGY Lymphocytes 0.6 1.0 - 5.5 05/ [facility] # /2015 Hospital HEMATOLOGY Eosinophils 0.0 0.0 - 0.5 05/ [facility] # /2016 [facility] HEMATOLOGY Segs 83.4 45.0 - 05/ [facility] 75.0 /2015 [facility] HEMATOLOGY Segs-Bands # 4.8 1.5 - 8.1 05/ [facility] HEMATOLOGY Basophils 0.1 0.0 - 1.0 05/ [facility] HEMATOLOGY Basophils # 0.0 0.0 - 0.2 05/ [facility] CHEM PANEL Magnesium 2.2 1.8 - 2.4 05/06 [facility] CHEM PANEL eGFR 91 05/06 Result Comment: The Hospital eGFR is calculated using the CKD-EPI formula. In most young, healthy individuals the eGFR will be >90 mL/min/1.73m2 . The eGFR declines with age. An eGFR of 60-89 may be normal in some populations, particularly the elderly, for whom the CKD-EPI formula has not been extensively validated. Use of the eGFR is not recommended in the following populations:< br/>
Vidhya viduals with unstable creatinine concentration s, including patients and those with serious co-morbid conditions.<b r/>
Patie nts with extremes in muscle mass or diet.

The data above are obtained from the National Kidney Disease Education Program (NKDEP) which additionally recommends that when the eGFR is used in patients with extremes of body mass index for purposes of drug dosing, the eGFR should be multiplied by the estimated BMI. CHEM PANEL Globulin 3.1 2.0 - 4.0 / [facility] CHEM PANEL A/G Ratio 0.9 0.7 - 1.6 05/06 [facility] CHEM PANEL Glucose Lvl 170 70 - 99 05/06 [facility] CHEM PANEL Bili Total 0.3 0.2 - 1.3 05/06 [facility] CHEM PANEL AGAP 14.1 10.0 - 02 [facility] 20.0 [facility] CHEM PANEL B/C Ratio 25 6 - 25 05/06 [facility] CHEM PANEL Creatinine 0.79 0.50 - 05/06 [facility] L[facility] 1.40 /2015 [facility] CHEM PANEL BUN 20 7 - 22 05/06 [facility] CHEM PANEL CO2 25 24 - 32 05/06 [facility] CHEM PANEL Calcium Lvl 8.4 8.5 - 10.5 05/06 [facility] CHEM PANEL Total 6.0 6.4 - 8.4 05/06 [facility] CHEM PANEL Albumin Lvl 2.9 3.5 - 5.0 05/06 [facility] CHEM PANEL ALT 74 0 - 65 05/06 [facility] CHEM PANEL AST 22 0 - 37 05/06 [facility] CHEM PANEL Alk Phos 46 39 - 136 05/06 [facility] CHEM PANEL Potassium 4.1 3.5 - 5.1 05/06 [facility] /2015 [facility] CHEM PANEL Chloride Lvl 107 95 - 109 05/06 [facility] CHEM PANEL Sodium Lvl 142 135 - 145 05/06 [facility] HEMATOLOGY Hgb 14.1 14.0 - 05/06 [facility] 18.0 [facility] HEMATOLOGY RBC 4.17 4.70 - 05/06 [facility] 6.10 [facility] HEMATOLOGY RDW 13.8 11.5 - 05/06 [facility] 14.5 /2015 [facility] HEMATOLOGY MCHC 33.5 32.0 - 05/06 [facility] 36.0 /2015 [facility] HEMATOLOGY MPV 8.9 7.4 - 10.4 05/06 [facility] HEMATOLOGY Platelet 119 133 - 450 05/06 [facility] HEMATOLOGY WBC 13.0 3.7 - 10.4 05/06 [facility] HEMATOLOGY Hct 42.0 42.0 - 05/06 [facility] 54.0 [facility] HEMATOLOGY MCH 33.8 27.0 - 05/06 [facility] 31.0 [facility] HEMATOLOGY MCV 100.7 80.0 - 05/06 [facility] 94.0 [facility] CHEM PANEL eGFR 72 05/04 Result Comment: The Hospital eGFR is calculated using the CKD-EPI formula. In most young, healthy individuals the eGFR will be >90 mL/min/1.73m2 . The eGFR declines with age. An eGFR of 60-89 may be normal in some populations, particularly the elderly, for whom the CKD-EPI formula has not been extensively validated. Use of the eGFR is not recommended in the following populations:< br/>
Vidhya viduals with unstable creatinine concentration s, including patients and those with serious co-morbid conditions.<b r/>
Patie nts with extremes in muscle mass or diet.

The data above are obtained from the National Kidney Disease Education Program (NKDEP) which additionally recommends that when the eGFR is used in patients with extremes of body mass index for purposes of drug dosing, the eGFR should be multiplied by the estimated BMI. CHEM PANEL Creatinine 1.05 0.50 - 05/04 [facility] 1.40 /2015 [facility] CHEM PANEL Glucose Lvl 134 70 - 99 05/04 [facility] CHEM PANEL BUN 22 7 - 22 05/04 [facility] CHEM PANEL Chloride Lvl 105 95 - 109 05/04 [facility] CHEM PANEL Calcium Lvl 8.7 8.5 - 10.5 05/04 [facility] CHEM PANEL CO2 29 24 - 32 05/04 [facility] CHEM PANEL Potassium 4.3 3.5 - 5.1 05/04 [facility] CHEM PANEL Sodium Lvl 141 135 - 145 05/04 [facility] CHEM PANEL AGAP 11.3 10.0 - 05/04 [facility] 20.0 /2015 [facility] HEMATOLOGY Hct 45.4 42.0 - 05/04 [facility] 54.0 /2015 [facility] HEMATOLOGY MCH 33.8 27.0 - 05/04 [facility] 31.0 [facility] HEMATOLOGY MCV 101.0 80.0 - 05/04 [facility] 94.0 [facility] HEMATOLOGY MPV 8.7 7.4 - 10.4 05/04 [facility] HEMATOLOGY MCHC 33.5 32.0 - 05/04 [facility] 36.0 /2015 [facility] HEMATOLOGY Hgb 15.2 14.0 - 05/04 [facility] 18.0 [facility] HEMATOLOGY RBC 4.50 4.70 - 05/04 [facility] 6.10 [facility] HEMATOLOGY WBC 12.5 3.7 - 10.4 05/04 [facility] /2015 [facility] HEMATOLOGY Platelet 153 133 - 450 05/04 [facility] HEMATOLOGY RDW 14.0 11.5 - 05/04 [facility] 14.5 [facility] ELECTROLYTE AGAP 11.8 10.0 - 05/16 [facility] S 20.0 [facility] ELECTROLYTE Chloride Lvl 107 95 - 109 05/16 [facility] ELECTROLYTE Sodium Lvl 142 135 - 145 05/16 [facility] ELECTROLYTE Potassium 3.8 3.5 - 5.1 05/16 [facility] ELECTROLYTE eGFR 88 05/16 <sup>1</sup>R [facility] Comment: The eGFR is calculated using the CKD-EPI formula. In most young, healthy individuals the eGFR will be >90 mL/min/1.73m2 . The eGFR declines with age. An eGFR of 60-89 may be normal in some populations, particularly the elderly, for whom the CKD-EPI formula has not been extensively validated. Use of the eGFR is not recommended in the following populations:& lt;br/>
I ndividuals with unstable creatinine concentration s, including patients and those with serious co-morbid conditions.<b r/>
Patie nts with extremes in muscle mass or diet.

The data above are obtained from the National Kidney Disease Education Program (NKDEP) which additionally recommends that when the eGFR is used in patients with extremes of body mass index for purposes of drug dosing, the eGFR should be multiplied by the estimated BMI. ELECTROLYTE Glucose Lvl 104 70 - 99 05/16 <sup>2</sup>I [facility] Data: Adult reference range values reflect the clinical guidelines
of the [place] [employer]. ELECTROLYTE CO2 27 24 - 32 05/16 [facility] ELECTROLYTE Calcium Lvl 8.9 8.5 - 10.5 05/16 [facility] ELECTROLYTE BUN 10 7 - 22 05/16 [facility] ELECTROLYTE Creatinine 0.9 0.5 - 1.4 05/16 [facility] Lvl [facility] HEMATOLOGY Monocytes # 0.6 0.0 - 0.8 05/16 [facility] HEMATOLOGY Eosinophils 0.1 0.0 - 0.5 05/16 [facility] # [facility] HEMATOLOGY Basophils # 0.0 0.0 - 0.2 05/16 [facility] HEMATOLOGY Eosinophils 1.6 0.0 - 4.0 05/16 [facility] HEMATOLOGY Monocytes 7.2 2.0 - 12.0 05/16 [facility] HEMATOLOGY Segs-Bands # 6.2 1.5 - 8.1 05/16 [facility] HEMATOLOGY Basophils 0.2 0.0 - 1.0 05/16 [facility] HEMATOLOGY Lymphocytes 1.1 1.0 - 5.5 05/16 [facility] # /2013 [facility] HEMATOLOGY Lymphocytes 14.2 20.0 - / [facility] 40.0 /2013 [facility] HEMATOLOGY Segs 76.8 45.0 - / [facility] 75.0 [facility] HEMATOLOGY MCV 98.1 80.0 - 05/16 [facility] 94.0 /2013 [facility] HEMATOLOGY Hgb 13.9 14.0 - 05/16 [facility] 18.0 /2013 [facility] HEMATOLOGY MCH 33.3 27.0 - 05/16 [facility] 31.0 /2013 [facility] HEMATOLOGY Hct 40.9 42.0 - 05/16 [facility] 54.0 /2013 [facility] HEMATOLOGY MCHC 34.0 32.0 - 05/16 [facility] 36.0 /2013 [facility] HEMATOLOGY Platelet 149 133 - 450 05/16 [facility] /2013 [facility] HEMATOLOGY RDW 13.7 11.5 - 05/16 [facility] 14.5 /2013 [facility] HEMATOLOGY MPV 8.9 7.4 - 10.4 05/16 [facility] HEMATOLOGY RBC X 10x6 4.17 4.70 - 05/16 [facility] 6.10 [facility] HEMATOLOGY WBC X 10x3 8.0 3.7 - 10.4 05/16 [facility] HEMATOLOGY Large Plt Slight None Seen 09/12 [facility] (09/12/2012 03:55:40) HEMATOLOGY Tear Cell Slight None Seen 09/12 [facility] *[facility]N* [facility] (09/12/2012 03:55:40) HEMATOLOGY Elliptocyte Slight None Seen 09/12 [facility] *ABN* [facility] (09/12/2012 03:55:40) HEMATOLOGY Basophils # 0.0 0.0 - 0.2 09/12 Normal [facility] HEMATOLOGY Macrocyte 1+ None Seen 09/12 [facility] *ABN* [facility] (09/12/2012 03:55:40) HEMATOLOGY Monocytes # 0.5 0.0 - 0.8 09/12 Normal [facility] HEMATOLOGY Eosinophils 0.0 0.0 - 0.5 09/12 Normal [facility] HEMATOLOGY Lymphocytes 0.8 1.0 - 5.5 09/12 LOW [facility] HEMATOLOGY Lymphocytes 4.6 20.0 - 09/12 LOW [facility] 40.0 [facility] HEMATOLOGY Monocytes 3.1 2.0 - 12.0 09/12 Normal [facility] HEMATOLOGY Segs-Bands # 15.4 1.5 - 8.1 09/12 HI [facility] /2012 Hospital HEMATOLOGY Eosinophils 0.0 0.0 - 4.0 / Normal [facility] /2012 Hospital HEMATOLOGY Basophils 0.0 0.0 - 1.0 09/12 Normal [facility] /2012 Hospital HEMATOLOGY Plt Morph Normal 09/12 Normal [facility] (09/12/2012 03:55:40) /2012 Ho spital HEMATOLOGY Segs 92.3 45.0 - 09/12 HI [facility] 75.0 /2012 Hospital HEMATOLOGY Bands 0.0 0.0 - 11.0 09/12 Normal [facility] /2012 Hospital HEMATOLOGY MPV 9.3 7.4 - 10.4 09/12 Normal [facility] /2012 Hospital HEMATOLOGY Hct 40.0 42.0 - 09/12 LOW MH [facility] 54.0 /2012 Hospital HEMATOLOGY MCV 97.4 80.0 - 09/12 HI [facility] 94.0 /2012 [facility] HEMATOLOGY MCH 32.4 27.0 - 09/12 HI [facility] 31.0 /2012 Hospital HEMATOLOGY Hgb 13.3 14.0 - 09/12 LOW [facility] 18.0 [facility] HEMATOLOGY WBC 16.7 3.7 - 10.4 09/12 HI [facility] /2012 Hospital HEMATOLOGY RBC 4.11 4.70 - 09/12 LOW MH [facility] 6.10 /2012 Hospital HEMATOLOGY MCHC 33.3 32.0 - 07 Normal MH [facility] 36.0 /2012 Hospital HEMATOLOGY RDW 15.0 11.5 - 09/12 HI [facility] 14.5 /2012 Hospital HEMATOLOGY Platelet 114 133 - 450 09/12 LOW [facility] CHEMISTRY eGFR 78 09/11 NA <sup>1</sup>R [facility] Comment: The eGFR is calculated using the CKD-EPI formula. In most young, healthy individuals the eGFR will be >90 mL/min/1.73m2 . The eGFR declines with age. An eGFR of 60-89 may be normal in some populations, particularly the elderly, for whom the CKD-EPI formula has not been extensively validated. Use of the eGFR is not recommended in the following populations:& lt;br/>
I ndividuals with unstable creatinine concentration s, including patients and those with serious co-morbid conditions.<b r/>
Patie nts with extremes in muscle mass or diet.

The data above are obtained from the National Kidney Disease Education Program (NKDEP) which additionally recommends that when the eGFR is used in patients with extremes of body mass index for purposes of drug dosing, the eGFR should be multiplied by the estimated BMI. CHEMISTRY Chloride Lvl 106 95 - 109 07/ Normal [facility] /2012 [facility] CHEMISTRY CO2 27 24 - 32 07/ Normal [facility] CHEMISTRY Creatinine 1.0 0.5 - 1.4 / Normal [facility] L[facility] /2012 Hospital CHEMISTRY Calcium Lvl 9.0 8.5 - 10.5 07/ Normal [facility] /2012 Hospital CHEMISTRY Sodium Lvl 143 135 - 145 07/ Normal [facility] CHEMISTRY Potassium 4.4 3.5 - 5.1 09/11 Normal [facility] CHEMISTRY BUN 15 7 - 22 09/11 Normal [facility] /2012 Hospital CHEMISTRY Glucose Lvl 139 70 - 99 09/11 [facility] <sup>2</sup>I [facility] Data: Adult reference range values reflect the clinical guidelines
of the [place] [employer]. CHEMISTRY AGAP 14.4 10.0 - 07 Normal [facility] 20.0 /2012 Hospital HEMATOLOGY Hgb 14.7 14.0 - 07/ Normal [facility] 18.0 /2012 Hospital HEMATOLOGY MCV 96.9 80.0 - 07/ HI [facility] 94.0 /2012 [facility] HEMATOLOGY Hct 43.9 42.0 - 07/ Normal [facility] 54.0 /2012 Hospital HEMATOLOGY MCHC 33.4 32.0 - 07/ Normal [facility] 36.0 /2012 Hospital HEMATOLOGY MCH 32.4 27.0 - 07/02 HI [facility] 31.0 /2012 Hospital HEMATOLOGY RDW 15.1 11.5 - 07/ HI [facility] 14.5 /2012 Hospital HEMATOLOGY Platelet 136 133 - 450 07/ Normal [facility] /2012 Hospital HEMATOLOGY MPV 9.5 7.4 - 10.4 07/ Normal [facility] /2012 Hospital HEMATOLOGY WBC 18.4 3.7 - 10.4 07/ HI [facility] /2012 Hospital HEMATOLOGY RBC 4.53 4.70 - 07 LOW [facility] 6.10 [facility] HEMATOLOGY Basophils # 0.0 0.0 - 0.2 / Normal [facility] /2012 Hospital HEMATOLOGY Eosinophils 0.0 0.0 - 0.5 07/ Normal [facility] # /2013 Hospital HEMATOLOGY Monocytes # 0.6 0.0 - 0.8 / Normal [facility] /2012 [facility] HEMATOLOGY Monocytes 3.2 2.0 - 12.0 / Normal [facility] /2012 [facility] HEMATOLOGY Segs-Bands # 17.1 1.5 - 8.1 / HI [facility] /2012 [facility] HEMATOLOGY Lymphocytes 0.7 1.0 - 5.5 / LOW MH [facility] # /2013 Hospital HEMATOLOGY Eosinophils 0.0 0.0 - 4.0 07/ Normal [facility] /2012 [facility] HEMATOLOGY Basophils 0.0 0.0 - 1.0 / Normal [facility] /2012 [facility] HEMATOLOGY Segs 92.9 45.0 - 09/11 HI [facility] 75.0 /2012 [facility] HEMATOLOGY Plt Morph Normal 09/11 Normal [facility] (09/11/2012 12:30:00) Ho spital HEMATOLOGY Lymphocytes 3.9 20.0 - 09/11 LOW [facility] 40.0 /2012 [facility] HEMATOLOGY RBC Morph Normal 09/11 [facility] 12:30:00[facility] Ho spital Pathology Reports No Data Provided for This Section Diagnostic Reports Report Value Date Source Spine lumbar puncture FLUOROSCOPIC DIRECTED LUMBAR PUNCTURE 06[facility] w fluoro DX HISTORY: Meningitis.. FLUORO TIME: 12 seconds of fluoroscopy were used . Informed consent was obtaine d. Site for needle placement was selected with fluoroscopy. Under sterile conditions and local anesthesia and with fluoroscopic guidance an L4-5 puncture was performed with a 22-gauge spinal needle with out incident. Opening pressure 44 cm of water. Approximately 17mL of crystal clear CSF withdrawn and sent for analysis. No immediate complication evident. END REPORT SL: [id number] Brain w/wo contrast MRI head without and with contrast. 06/23/[address] [place] [address] MRI Indication: Headache for pas t 2 weeks with intermittent nausea and vomiting. Comparison: 06/21/2016 CT head. Technique: MRI head was perf ormed in the following sequences: Axial T1 pre and post contrast, FLAIR, T2, DWI, sagittal T1, coronal FLAIR and post contrast T1. Approximately 13 mL gadolinium injected int ravenously for this exam. A full and complete ex am was performed. Findings: Mild motion artifa ct degrades image quality. There is no evidence for restrictive diffusion. Normal flow-voids are appreciated in the intracranial internal carotid arteries. Moderate patchy pe riventricular and subcortica l white matter T2 hyperintensities are present bilaterally. Black-white matter differentiation is otherwise preserved. There is no evidence for midline shift. Cerebral and cer ebellar sulci as well as the ventricles are normal in size for the patient's age. No intra or extra-axial fluid collections are present. There are no areas of abnormal enhancement with contrast administration. No evidence for acute intracranial hemorrhage, acute ischemic infarct, or enhancing cerebral or cerebellar masses. Impression: 1. No acute intracranial findings or abnormal c ontrast enhancement. 2. Nonspecific white matter changes likely related to chronic small vessel ischemia in patient of this age group. Demyelinating disorder, vasculitis, migraine headaches, and other etiologies can also be considered. SL: [id number] Chest Pulmonary PROCEDURE: CTA CHEST 06/21/2016 [facility] Embolism CTA Clinical Indication: Shortness of Breath - cough , SOB, Fever. ; Comparison: None TECHNIQUE: CTA of the pulmon stefania arteries was performed following intravenous contrast administration. Multiplanar and 3-D MIP angiographic reconstructions are reviewed. IV CONTRAST: 100 mL Omnipaque 300 DLP: 9:15 mGy-cm FINDINGS: PULMONARY ARTERIES: Enhancem ent of the pulmonary arteries is technically suboptimal. No proximal or central emboli demonstrated. Assessment beyond the lobar branches is not of diagnostic quality. Immedi ate repeat imaging of the est was obtained with similar suboptimal opacification of the pulmonary arteries demonstrating no central or proximal emboli through the lobar branches. Within limitations, n o discrete segmental or subsegmental emboli evid ent. MEDIASTINUM: The mediastinal contents are normal . No adenopathy. HEART: The cardiac chambers are unremarkable. Coronary arterial calcifications. No pericardial effusion. VASCULAR STRUCTURES: Atheros clerosis thoracic aorta and proximal great vessels. No aneurysm, dissection or other acute abnormality demonstrated. The superior vena cava is unremarkable. LUNGS: Mild centrilobular an d paraseptal emphysema. Bronchial wall thickening with partial opacification of multiple segmental bronchi in the lower lobes. Interstitial opacities in the right lower lobe. No consolidation. Biapical pleural-parenchymal scarring. No suspicious mass lesions. No pleural abnormality. UPPER ABDOMEN: Survey of vis cera may be limited by early phase of contrast enhancement. Bilateral perinephric stranding, nonspecific. No hydronephrosis. Visualized portions of the collecting systems. D egree of stranding is similar to that on prior c hest CT. MUSCULOSKELETAL: The skeleton is intact. IMPRESSION: 1. Technically suboptimal CT A of the pulmonary arteries without proximal or central emboli demonstrated. 2. Emphysema. 3. Bronchial wall thickening with partial opacification of lower lobe segmental bronchi compatible with a bronchitis. Interstitial opacities asymmetric in the right lung base may reflect acute inflammat ion. No lobar pneumonia. Close radiographic foll ow-up is recommended. 4. Atherosclerosis. 5. Nonspecific stranding of perinephric fat, likely chronic. Acute inflammation not excluded. Please correlate with urinalysis. SL: BRIA Chest 1view DX FRONTAL CHEST, 06/21/2016 2:29 PM CDT : 7 [facility] HISTORY: Dizziness. COMPARISON: None FINDINGS: Heart size and vascularity a re within normal limits. Emphysematous changes with hyperlucency and distortion of pulmonary architecture. The lungs are clear of focal consolidation. No effusion, pneumothorax, or acute osseous abnormality. IMPRESSION: 1. No radiographic evidence of acute cardiopulmo nary process. SL: [id number] Brain wo contrast CT Addendum: Addendum: 06/21/2016 [facility] I reviewed this examination and concur with the interpretation. Noncontrast CT head. INDICATION: Headache for 2 weeks. Weakness. Comparison: None. TECHNIQUE: Noncontrast CT he ad was performed from skull base to vertex at 3 mm slice collimation. FINDINGS: Mild periventricul ar white matter hypodensities are present. Black- white matter differentiation is otherwise preserved. Ventricles are normal in size for the patient's stated age. Ther e is no evidence of midline shift. No intra or extra-axial fluid collections are seen. No evidence for acute ischemic infarct or cerebral mass. No abnormally increased parenchymal density is identified to suggest acute hemorrhage. Few bilateral mastoid air cells are opacified. Visualized portions of paranasal sinuses are clear. IMPRESSION: 1. No acute intracranial findings. 2. Mild nonspecific white m atter hypodensities likely related to chronic small vessel ischemic changes. SL: [id number] Ext Lower Venous Study: Ext Lower Venous Doppler Bilat US 05/17/2016 4:39 PM ENDOSCOPY RN 05/17/2016 [facility] Doppler Bilat US Clinical Indication: Bilateral leg swelling; Comparison: None TECHNIQUE: Sonographic evalu ation of the bilateral lower extremity veins is performed using high resolution B-mode imaging, along with pulse and color Doppler imaging. FINDINGS: Right lower extremity: The c ommon femoral vein, femoral vein, popliteal vein and visualized posterior tibial/calf veins are patent. There is no echogenic debris to suggest deep venous thrombosis. Left lower extremity: The co mmon femoral vein, superficial femoral vein, popliteal vein and visualized posterior tibial/calf veins are patent. There is no echogenic debris to suggest deep venous thrombosis. IMPRESSION: No DVT of the bilateral lower extrem ities. SL: [id number]-M Tibia fibula series PROCEDURE: Right leg 2 views 05/17/2016 [facility] DX Clinical Indication: Erythem a. Wound infection right ankle. Redness and swelling right leg and ankle. Comparison: None FINDINGS: Scattered vascular calcifications. No gross soft tissue abnormality. No subcutaneous gas. Previous surgery proximal tibia with single screw in place. No radiographic evidence for loosening. Di minutive lucent foci compati ble with previous orthopedic pin placement in the tibia. No bone destructive lesion. No fracture or dislocation. IMPRESSION: No acute radiographic abnormality. SL: [id number] Chest 1view DX One view portable chest: 07/15/2015 [facility] HISTORY: Dyspnea. FINDINGS: No active process in the chest. Exam is stable compared with 07/13/2015. SL: WR2-M Chest 1view DX Patient Name: SHIRLENE NICHOLAS. 07[facility]13/2015 [facility] : 1945; Age: 70 years y/o; Male. MR: [id number]. Ordering Physician: Maryuri Mariscal MD. PORTABLE CHEST AP: HISTORY: Shortness of breath , nausea, cough and weakness with worsening. Chronic obstructive pulmonary disease. COMPARISON: Chest x-ray 05/04/2015. FINDINGS: Portable frontal v iew of the chest was obtained. The lungs are clear bilaterally. The cardiomediastinal silhouette and pulmonary vasculature are unremarkable. The partially visualized upper abdomen is unremarkable. IMPRESSION: No acute disease in the chest. SL: WR1-M Chest wo contrast CT CT chest without contrast with high-res olution images. 05/07/2015 [facility] INDICATION: Shortness of thony ath with dyspnea on exertion. Acute exacerbation of chronic obstructive pulmonary disease. Tracheobronchitis. Tobacco dependency. COMPARISON: 07/31/[address] TECHNIQUE: Helical axial yecenia ges were obtained from the thoracic inlet to the level the diaphragms at 3 mm slice collimation without IV contrast with coronal and sagittal reconstructions. Additional thin cut high-resolution axial images obtained. FINDINGS: Trachea and mainst em bronchi are free of masses. No hiatal hernia identified. Thoracic aorta is normal caliber with mild calcifications. Heart is normal in size without significant volume alex cardial effusion. No enlarge d mediastinal lymph nodes are seen. No pneumothorax or significant volume pleural fluid identified. Posterior subpleural dependent atelectasis is seen in the lower lobes, lef t greater than right. Lungs are very well inflated with very subtle lucent changes suggesting a component of centrilobular emphysema. No definite changes of fibrosis seen on the high-resolution images. Visualized portions of the u pper liver, spleen, pancreas, and adrenal glands appear normal. 4 cm fluid density lesion in the right kidney is partially visualized in the [id number]. 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 IMPRESSION: 1. Moderate dependent atelectasis in the lower l obes. 2. Mild emphysematous changes. 3. Atherosclerosis. 4. Partial visualization of right renal cyst. SL: [id number] Chest 1view DX Chest one view 05/04/2015 [facility] HISTORY: Short of breath COMPARISON: 04/25/2014 Lungs are hyperinflated but clear. No pleural fluid or pneumothorax. The heart and mediastinal contours stable.. IMPRESSION: No active process. SL: 200 Carotid artery CAROTID DOPPLER ULTRASOUND 07/28/2014 OP ID [facility] Doppler bilat US INDICATION: 785.9. Other sym ptoms involving cardiovascular system. Carotid bruit TECHNIQUE: Black scale, color Doppler and spectral Doppler of the carotid arteries was performed. Any reported ICA stenoses indirectly references the distal internal carotid diameter as the denominator for stenosis measurement uti lizing Consensus Panel Criteria. No comparison studies. RIGHT: Mild atherosclerotic plaque ICA PSV- 99 cm/sec CCA PSV- 94 cm/sec ICA/CCA Ratio- 1.0 Vertebral flow is antegrade LEFT: Mild atherosclerotic plaque ICA PSV- 131 cm/sec CCA PSV- 119 cm/sec ICA/CCA Ratio- 1.1 Vertebral flow is antegrade IMPRESSION: 1. RIGHT: ICA stenosis less than 50 % by veloci ty criteria. 2. LEFT: ICA stenosis less than 50 % by velocity criteria. SL: 41 CONSENSUS PANEL DOPPLER US CRITERIA FOR DIAGNOSI S OF ICA STENOSIS. Stenosis (%) ICA PSV (cm/s) ICA/CCA ratio _ <50 <125 <2.0 50-69 125-230 2.0 - 4.0 >70 >230 >4.0 Chest 1view DX One view portable chest: [facility] HISTORY: Asthma exacerbation. FINDINGS: Lungs are hyperinf lated but clear. The heart and mediastinal contours stable from 05/16/2013. No pleural fluid or pneumothorax. IMPRESSION: No acute finding. SL: 200 Shoulder wo contrast MRI LEFT SHOULDER WITHOUT CONTRAST: 014 [facility] MRI HISTORY: Left shoulder pain. COMPARISON: None. FINDINGS: Multiplanar multis equence MRI of the left shoulder was performed without intravenous or intra-articular gadolinium based contrast. Intrasubstance signal is not ed along the undersurface of the supraspinatus tendon just proximal to its greater tuberosity insertion/footprint compatible with either tendinopathy versus partial thickness undersurface tear. Tendinop athy versus partial thickness undersurface tear of the infraspinatus is also noted, best seen on sagittal T2 fat-sat sequence image 7. Teres minor and subscapularis tendons a re normal in signal and morp hology. No evidence of full-thickness rotator cuff tear or subacromial/subdeltoid bursitis to suggest pinpoint full-thickness rotator cuff tear. Rotator cuff muscles are well preserved without edema or fatty atrophy. Long head of biceps tendon is normal in signal a nd morphology. Minimal glenohumeral spurrin g is noted. 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 Tear of the entire posterior glenoid labrum noted with paralabral cysts. Intras ubstance signal is also note d within the superior glenoid labrum extending posterior to the biceps anchor, highly suspicious for nondisplaced SLAP type labral tear. No evidence of tear involving the anterior glenoid labrum. Mild hypertrophic degenerati ve change of the acromioclavicular joint is noted. No evidence of subacromial spurring or os acromiale. IMPRESSION: 1. Tendinopathy versus parti al-thickness undersurface tear of both supraspinatus and infraspinatus tendons as described. No evidence of full- thickness rotator cuff tear. 2. 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 SLAP type labral tear is also suspected as described. 3. 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 Mild hypertrophic degenerative change of the AC joint. SL:02 Bone Density DXA Dual - Bone Density DXA Dual Energy MA 10/10/19 14 [facility] MA MALE BONE DENSITY EVALUATION: 10/09/2013 RISK FACTORS: race. FINDINGS: Bone density evaluation was performed 10/09/2013 on the AP L1-L4 region of spine using a Hologic unit. The BMD average for the exam is 0.810 g/cm2. The T- score is -2.60 and the Z-score is -1.70. This matches the World Health Org anization's criteria for osteoporosis and places the patient at a high risk for fracture. An additional bone density e valuation was performed 10/09/2013 on the left femur neck using a Hologic unit. The BMD average for the exam is 0.655 g/cm2. The T-score is -2.00 and the Z-score is -0.90. This matches the World Healt h Organization's criteria for osteopenia and places the patient at a medium risk for fracture. An additional bone density e valuation was performed 10/09/2013 on the left hip using a Hologic unit. The BMD average for the exam is 0.765 g/cm2. The T-score is -1.80 and the Z-score is -1.20. This ma tches the World Health Organ ization's criteria for osteopenia and places the patient at a medium risk for fracture. IMPRESSION: OSTEOPOROSIS Patient is at high risk for fracture. Bobby Sheldon M.D. dg/penrad:10/09/2013 15:52:48 Summer Sessions Director: Meeta TORRES Chest 2 views 2 VIEW CHEST X-RAY 05/16/2013 [facility] HISTORY: Chest tightness. COMPARISON: No relevant priors available. Lungs are hyperinflated but free of infiltrate. The heart and mediastinum are normal.. IMPRESSION: Pulmonary hyperinflation otherwise normal exam . SL: 02 Consultation Notes No Data Provided for This Section Discharge Summaries No Data Provided for This Section History and Physicals No Data Provided for This Section Vital Signs Vital Sign Value Date Comments Source Height 182.88 cm 06/05/2017 [facility] BMI Calculated 21.25 06/05/2017 [facility] Weight 71.08 06/05/2017 [facility] Systolic (mm Hg) 116 06/05/2017 [facility] Diastolic (mm Hg) 66 06/05/2017 [facility] Weight 68.693 04/24/2017 [facility] BMI Calculated 20.54 04/24/2017 [facility] Height 182.88 cm 04/24/2017 [facility] Heart Rate 92 04/24/2017 [facility] Systolic (mm Hg) 146 04/24/2017 [facility] Diastolic (mm Hg) 89 04/24/2017 [facility] Heart Rate 81 06/28/2016 [facility] Resp[facility] 20 [facility] Sy[facility] (mm Hg) 136 06/28/2016 [facility] Diastolic (mm Hg) 76 06/28/2016 [facility] spital Temperature Oral (F) 98.5 F 06/28/2016 [facility] Systolic (mm Hg) 134 06/28/2016 [facility] Diastolic (mm Hg) 75 06/28/2016 [facility] Respitory Rate 20 06/28/2016 [facility] vasquez Heart Rate 95 06/28/2016 [facility] Temperature Oral (F) 98.1 F 06/28/2016 [facility] Temperature Oral (F) 97.5 F 06/28/2016 [facility] Heart Rate 92 06/28/2016 [facility] Systolic (mm Hg) 153 06/28/2016 [facility] Diastolic (mm Hg) 79 06/28/2016 [facility] Respitory Rate 18 06/28/2016 [facility] vasquez Weight 71.682 06/22/2016 [facility] BMI Calculated 21.43 06/22/2016 [facility] vasquez Height 182.88 cm 06/22/2016 [facility] Weight 69.091 06/21/2016 [facility] Height 182.88 cm 06/21/2016 [facility] BMI Calculated 20.66 06/21/2016 [facility] vasquez Heart Rate 79 05/31/2016 [facility] Respitory Rate 16 05/31/2016 [facility] Temperature Oral (F) 97.8 F 05/31/2016 [facility] nfect[facility] Weight 163 05/31/2016 [facility] Diastolic (mm Hg) 84 05/31/2016 [facility] Systolic (mm Hg) 130 05/31/2016 [facility] Systolic (mm Hg) 142 05/18/2016 [facility] Diastolic (mm Hg) 69 05/18/2016 [facility] Heart Rate 70 [facility] 18 05/18/2016 [facility] vasquez Temperature Oral (F) 98.5 F 05/18/2016 [facility] Temperature Oral (F) 98.4 F 05/18/2016 [facility] Heart Rate 61 05/18/2016 [facility] Systolic (mm Hg) 154 05/18/2016 [facility] Diastolic (mm Hg) 89 05/18/2016 [facility] Resp[facility] Rate 17 05/18/2016 [facility] vasquez Temperature Oral (F) 98.2 F 05/18/2016 [facility] Respitory Rate 18 05/18/2016 [facility] Heart Rate 51 05/18/[facility] Systolic (mm Hg) 163 05/18/2016 [facility] Diastolic (mm Hg) 80 05/18/2016 [facility] Height 182.88 cm 05/18/2016 [facility] BMI Calculated 22.29 05/18/2016 [facility] vasquez Weight 74.545 05/18/2016 [facility] BMI Calculated 22.29 05/17/2016 [facility] vasquez Height 182.88 cm 05/17/2016 [facility] Weight 74.545 05/17/2016 [facility] Systolic (mm Hg) 138 07/20/2015 [facility] Diastolic (mm Hg) 67 07/20/2015 [facility] Respitory Rate 18 07/20/2015 [facility] vasquez Heart Rate 65 07/20/2015 [facility] Temperature Oral (F) 98.4 F 07/20/2015 [facility] Temperature Oral (F) 98.3 F 07/20/2015 [facility] Respitory Rate 18 07/20/2015 [facility] vasquez Systolic (mm Hg) 130 07/20/2015 [facility] Diastolic (mm Hg) 74 07/20/2015 [facility] Heart Rate 63 07/20/2015 [facility] Respitory Rate 18 07/20/2015 [facility] vasquez Heart Rate 71 07/20/2015 [facility] Systolic (mm Hg) 119 07/20/2015 [facility] Diastolic (mm Hg) 67 07/20/2015 [facility] Temperature Oral (F) 97.4 F 07/20/2015 [facility] Height 203.2 cm 07/16/2015 [facility] BMI Calculated 22.2 07/15/2015 [facility] vasquez Height 175.26 cm 07/15/2015 [facility] Weight 68.182 07/15/2015 [facility] Respitory Rate 18 07/14/2015 [facility] vasquez Heart Rate 78 07/14/2015 [facility] Systolic (mm Hg) 110 07/14/2015 [facility] Diastolic (mm Hg) 54 07/14/2015 [facility] Temperature Oral (F) 98.6 F 07/14/2015 [facility] Respitory Rate 18 07/14/2015 [facility] vasquez Systolic (mm Hg) 136 07/14/2015 [facility] Diastolic (mm Hg) 76 07/14/2015 [facility] spital Heart Rate 61 07/14/2015 [facility] Temperature Oral (F) 98 F 07/14/2015 [facility] Temperature Oral (F) 98.2 F 07/14/2015 [facility] Heart Rate 83 07/14/2015 [facility] Systolic (mm Hg) 134 07/14/2015 [facility] Diastolic (mm Hg) 75 07/14/2015 [facility] Respitory Rate 18 07/14/2015 [facility] vasquez Height 182.88 cm 07/14/2015 [facility] Height 182.88 cm 07/14/2015 [facility] BMI Calculated 21.51 07/13/2015 [facility] vasquez Weight 71.932 07/13/2015 [facility] Height 182.88 cm 07/13/2015 [facility] Heart Rate 78 05/07/2015 [facility] Temperature Oral (F) 98 F 05/07/2015 [facility] Systolic (mm Hg) 132 05/07/2015 [facility] Diastolic (mm Hg) 78 05/07/2015 [facility] spital Respitory Rate 18 05/07/2015 [facility] vasquez Temperature Oral (F) 98.1 F 05/07/2015 [facility] Hospital Respitory Rate 18 05/07/2015 [facility] vasquez Systolic (mm Hg) 125 05/07/2015 [facility] Diastolic (mm Hg) 75 05/07/2015 [facility] Heart Rate 74 05/07/2015 [facility] Heart Rate 75 05/07/2015 [facility] Systolic (mm Hg) 134 05/07/2015 [facility] Diastolic (mm Hg) 69 05/07/2015 [facility] Resp[facility] Rate 19 05/07/2015 [facility] vasquez Temperature Oral (F) 97.9 F 05/07/2015 [facility] Weight 71.023 05/04/2015 [facility] BMI Calculated 21.24 05/04/2015 [facility] vasquez Height 182.88 cm 05/04/2015 [facility] Height 182.88 cm 05/04/2015 [facility] Weight 72.727 05/04/2015 [facility] BMI Calculated 21.75 05/04/2015 [facility] vasquez Height 72 07/23/2014 [facility] Weight 160 07/23/2014 [facility] Systolic (mm Hg) 157 07/23/2014 [facility] Diastolic (mm Hg) 81 07/23/2014 [facility] Temperature Oral (F) 98.5 F 07/23/2014 [facility] Respitory Rate 17 07/23/2014 [facility] Heart Rate 82 07/23/2014 [facility] Height 72 03/14/2014 [facility] Temperature Oral (F) 97 F 03/14/2014 [facility] Respitory Rate 17 03/14/2014 [facility] Heart Rate 17 03/14/2014 [facility] Systolic (mm Hg) 172 03/14/2014 [facility] Diastolic (mm Hg) 80 03/14/2014 [facility] Height 72 02/20/2014 [facility] Weight 98.3 02/20/2014 [facility] Temperature Oral (F) 98.3 F 02/20/2014 [facility] Respitory Rate 17 02/20/2014 [facility] Heart Rate 102 02/20/2014 [facility] Systolic (mm Hg) 143 02/20/2014 [facility] Diastolic (mm Hg) 83 02/20/2014 [facility] Height 72 02/18/2014 [facility] Weight 167 02/18/2014 [facility] Temperature Oral (F) 98.3 F 02/18/2014 [facility] Respitory Rate 16 02/18/2014 [facility] Heart Rate 74 02/18/2014 [facility] Systolic (mm Hg) 149 02/18/2014 [facility] Diastolic (mm Hg) 78 02/18/2014 [facility] Height 72 12/03/2013 [facility] Weight 167 12/03/2013 [facility] Temperature Oral (F) 98.3 F 12/03/2013 [facility] Respitory Rate 17 12/03/2013 [facility] Heart Rate 67 12/03/2013 [facility] Systolic (mm Hg) 157 12/03/2013 [facility] Diastolic (mm Hg) 76 12/03/2013 [facility] Systolic (mm Hg) 151 11/26/2013 [facility] Diastolic (mm Hg) 75 11/26/2013 [facility] Weight 167 11/26/2013 [facility] Temperature Oral (F) 98.4 F 11/26/2013 [facility] Respitory Rate 17 11/26/2013 [facility] Heart Rate 75 11/26/2013 [facility] Height 72 11/26/2013 [facility] Temperature Oral (F) 98.1 F 05/18/2013 [facility] Respitory Rate 18 05/18/2013 [facility] vasquez Heart Rate 85 05/18/2013 [facility] Systolic (mm Hg) 116 05/18/2013 [facility] Diastolic (mm Hg) 62 05/18/2013 [facility] Systolic (mm Hg) 118 05/18/2013 [facility] Diastolic (mm Hg) 60 05/18/2013 [facility] Temperature Oral (F) 96.8 F 05/18/2013 [facility] Respitory Rate 18 [facility] 82 05/18/2013 [facility] Diastolic (mm Hg) 59 05/18/2013 [facility] Temperature Oral (F) 96.5 F 05/18/2013 [facility] Respitory Rate 18 05/18/2013 [facility] vasquez Systolic (mm Hg) 114 05/18/2013 [facility] Heart Rate 68 05/18/2013 [facility] BMI Calculated 24.19 05/16/2013 [facility] Weight 80.909 05/16/2013 [facility] Height 182.88 cm 05/16/2013 [facility] Respitory Rate 18 09/12/2012 [facility]quez Systolic (mm Hg) 128 09/12/2012 [facility] Diastolic (mm Hg) 68 09/12/2012 [facility] Temperature Oral (F) 96.9 F 09/12/2012 [facility] Heart Rate 61 09/12/2012 [facility] Diastolic (mm Hg) 66 09/12/2012 [facility] Systolic (mm Hg) 127 09/12/2012 [facility] Respitory Rate 18 09/12/2012 [facility] Heart Rate 91 09/12/2012 [facility] Temperature Oral (F) 96.3 F 09/12/2012 [facility] Systolic (mm Hg) 129 09/12/2012 [facility] Diastolic (mm Hg) 63 09/12/2012 [facility] Heart Rate 57 09/12/2012 [facility] Respitory Rate 18 09/12/2012 [facility] vasquez Temperature Oral (F) 96.9 F 09/12/2012 [facility] Weight 80.028 09/11/2012 [facility] Height 182.88 cm 09/11/2012 [facility] Encounters Location Location Encounter Encounter Reason Attending ADM DC Stat us Source Details Type Number For Provider Date Date Visit [facility] Inpatient [id number] JOSÉ MIGUEL HINOJOSA 09/11 09/12 Disch arg [facility] ed [facility] Inpatient [id number] _MAPID: José Miguel Hinojosa 05/17 05/18 [facility] Damien 5 [id number] ENCNTRR /2013 [facility] [id number] Hospital [facility] Outpt Diag [id number] Srriam Royal 10/09 10/10 [facility] Outpatient Services 0 [facility] Imaging [facility] Office [id number] Ifeanyi11/26 [facility] EDann Visit 32104 DeFriece, Philip Reyna MD Group [facility] Outpt Diag [id number] Ifeanyi11/27 M [facility] Outpatient Services 1 DeFriece /2013 Ka ty Imaging [facility] Lab Report [id number] Ifeanyi11/28 Damein 05302 DeFriece, Philip Reyna MD Group Group - [facility] Office [id number] Ifeanyi12/03 [facility] Visit 09663 DeFriece, Philip Brown Group [facility] Office [id number] Ifeanyi02/18 [facility] EDann Visit 24266 DeFriece, /2013 [place] Reyna MD Group Group [facility] Office [id number] Ifeanyi 02/20 02/20 [facility] Visit 37491 DeFriece, Philip Reyna MD Group Group [facility] Office [id number] Ifeanyi 03/14 03/14 [place] Visit [id number] DeFriece, Philip Reyna MD Group Group [facility] Office [id number] Ifeanyi 07/23 07/23 [facility] Visit 57850 DeFriece, Philip Reyna MD Group Group [facility] Outpt Diag [id number] Ifeanyi 07/28 07/29 M H [facility] Outpatient Services 2 DeFriece /2014 Ka ty Imaging [facility] Outpt Diag [id number] Ifeanyi 07/31 08/01 M H [facility] Outpatient Services 3 DeFriece /2014 Ka ty Imaging [facility] Outpatient [id number] IFEANYI 04/17 Active [facility] 0 [facility] Inpatient [id number] José Miguel Hinojosa 05/06 05/07 [facility] Quezada [facility] OBS [id number] Alicia 07/12 07/13 [facility] Quezada Observation 4 Hosp ital [facility] Inpatient [id number] Alicia 07/14 07/19 [facility] Quezada 5 [facility] Outpatient [id number] XAEL 03/03 Active [facility] 1 [place] Outpatient [id number] AXEL 03/22 Active [facility] 2 [place] Outpatient [id number] AXEL 05/11 Active [facility] 3 [facility] Outpatient [id number] AXLE 05/17 Active [facility] 4 [facility] Inpatient [id number] Crow Madni 05/17 05/19 [facility] Quezada [facility] Wound Care [id number] Ebba Ning 05/30 06/29 [facility] Quezada 0 Tsinopo Reha b [facility] Inpatient [id number] Kohler 06/21 06/29 [facility] [place] 9 Ishfaq [facility] Outpatient [id number] AXEL 07/11 Active [facility] 5 [place] Outpatient [id number] AXEL 08/04 Active [facility] 7 [facility] Outpatient [id number] AXEL 08/09 Active [facility] 6 [facility] Outpatient [id number] NURSE VISIT 08/11 [facility] [place] Outpatient [id number] AXEL 08/17 Active [facility] 9 [facility] MNA Phone [id number] 04/12 04/14 [facility] er Neurology Message Neuro [facility]NA Outpatient [id number] Ifeanyi 04/24 04/25 [facility] 3 DeFri Neuro [facility] Outpatient [id number] Roddy Wyatt 06/05 06/06 [facility] Neuro [facility]NA Ambulatory [id number] Roddy Wyatt 11/29 11/29 [facility] Neurology Pre-Reg Neuro [facility] Procedures Procedure Code Date Perfomer Comments Source smoking/tobacco 14 11/26/2013 DONE Medica l cessation, Group patient education and counseling Appendectomy; [id number] [facility] Rehab,[facility] ORIF - Open [id number] [facility] reduction and Neuro,[facility] internal fixation Rehab,[facility] of fracture Damon,[facility] ORIF - Open [id number] [facility] internal fixation of fracture Assessment and Plan Assessment and Plan Date Source Extracted from:Title: Consult Note 06/29/2016 [facility] Author: Dominique Souza MD Date: 06/24/16 Assessment/Plan 1. PVCs (asymptomatic) 2. HTN 3. H/o CAD (stable) 4. Nicotine dependence 5. PVD 6. COPD 7. Viral meningitis 8. Hyponatremia RECOMMENDATIONS: Continue home cardiac medications at this time. No specific treatment necessary to PVCs at this time. If occurs in great frequency then will o rder an echo, and follow cardiac enzymes, but at this time this is not required. Follow on telemetry. Counselled on nicotine cessation. Continue current medical management of v iral meningitis, and electrolyte replacement. Extracted from:Title: Progress Note * 07/20/2015 [facility] Author: Alicia Payan MD Date: 07/19/15 Impression and Plan 1. Acute exacerbation of chronic obstru ctive pulmonary disease with acute worsening secondary to smoking and tobacco abuse disorder. continue with nebulizations, IV antibiotics, and IV steroids. Cont inue with incentive spirometry and aggre ssive pulmonary toilet. The patient's dominatrix, Dr. Hinojosa, is following for further evaluation and management. 2. Hyperlipidemia. Continue atorvastatin. 3. Hypothyroidism. 4. Peripheral vascular disease. Patient is on aspirin and Plavix. 5. Deep venous thrombosis and gastrointestinal prophylaxis will be initiated. 6. Family is at the bedside. Did discu ss his plan of care and condition in detail with the family. 7. Tobacco abuse disorder. Patient advised in detail about smoking cessation. Discussed plan of care with . Time spent is 35 minutes. Plan of Care No Data Provided for This Section Social History Social History Date Source Social History TypeResponse 05/18/2016 [facility] Substance Abuse Use: None. IV drug use: No. Drug use interferes with work/ home: No. Alcohol Never, Alcohol use interferes with work or home: No. Drinks more than intended: No. Others hurt by drinking: No. Smoking Status Current some day smoker; Type: Cigarette s; Previous treatment: Counseling; Ready to change: Yes; Concerns about tobacco use in household: No; Exposure to Tobacco Smoke habit; Cigarette Smoking Last 365 Days No; Reg Smoking Cessation Counselin g Yes; Tobacco use per day: 10; Number of years: 50; Started at age: 56.0; entered on: 06/05/17 Social History TypeResponse 05/18/2016 [facility] Substance Abuse Use: None. IV drug use: No. Drug use interferes with work/ home: No. Alcohol Never, Alcohol use interferes with work or home: No. Drinks more than intended: No. Others hurt by drinking: No. Smoking Status Current every day smoker; Type: Cigarett es; Tobacco use per day: 3; Ready to change: No; Concerns about tobacco use in household: No; Exposure to Tobacco Smoke None; Cigarette Smoking Last 365 Days Yes; Reg Smoking Cessation Counseling Yes Social History TypeResponse 05/18/2016 [facility] Reha b Substance Abuse Use: None. IV drug use: No. Drug use interferes with work/ home: No. Alcohol Never, Alcohol use interferes with work or home: No. Drinks more than intended: No. Others hurt by drinking: No. Smoking Status Current every day smoker; Type: Cigarett es; Tobacco use per day: 3; Ready to change: No; Concerns about tobacco use in household: No; Exposure to Tobacco Smoke None; Cigarette Smoking Last 365 Days Yes; Reg Smoking Cessation Counseling Yes Social History TypeResponse 02/22/2014 VERONICA Tavares Substance Abuse IV drug use: No. Drug use interferes with work/home: No. Alcohol Alcohol use interferes with work or home : No. Drinks more than intended: No. Others hurt by drinking: No. Smoking Status Current some day smoker; Type: Cigarette s; Number of years: 50; Started at age: 18.0; Previous treatment: Counseling; Ready to change: Yes; Concerns about tobacco use in household: No; Exposure to Tobac co Smoke habit; Cigarette Smoking Last 3 65 Days No; Reg Smoking Cessation Counseling Yes Family History No Data Provided for This Section Advance Directives No Data Provided for This Section Functional Status No Data Provided for This Section
[2019-11-08 11:53] LABS: Absolute Lymphocytes (CBC) 0.8 K/uL (0.7-4.9); Basophils % 0.5 % (0-1.3); Hematocrit 46.3 % (39.6-49.0); Lymphocytes % 13.3 % (15.3-44.8); MPV 8.5 fL (7.6-11.3); RBC Red Blood Cell Count 4.42 M/uL (4.33-5.43)
[2019-11-08 11:56] LABS: Protime INR 0.97
[2019-11-08] MEDS ORDERED: IPRATROPIUM BROM 0.5MG/2.5ML ONE (11:58)
[2019-11-08] MEDS ORDERED: ACETAMINOPHEN 325 MG TABLET ONE (11:59)
[2019-11-08] MEDS ORDERED: NA CHLORIDE 0.9% 500 ML ONE ×2 (11:59→12:28)
[2019-11-08] MEDS ORDERED: ALBUTEROL 2.5 MG/3 ML NEB SOL ONE (11:59)
[2019-11-08 12:30] LABS: ALT/SGPT 34 U/L (12-78); AST/SGOT 60 U/L (15-37); Albumin 2.6 g/dL (3.4-5.0); Alkaline Phosphatase 89 U/L (45-117); BUN Blood Urea Nitrogen 2 mg/dL (7-18); Bicarbonate 32 mmol/L (21-32); Bilirubin Direct 0.2 mg/dL (0-0.2); Bilirubin Total 0.4 mg/dL (0.2-1.0); Glucose Level 77 mg/dL (74-106); NT PRO-BNP 94 pg/mL (<125); Potassium 3.4 mmol/L (3.5-5.1); Protein, Total 6.5 g/dL (6.4-8.2); Sodium Level 134 mmol/L (136-145); Troponin (Emerg Dept Use Only) < 0.02 ng/mL (0.0-0.045)
[2019-11-08 12:31] LABS: Magnesium 1.4 mg/dL (1.8-2.4)
--- NOTE | 2019-11-08 12:45 | RAD REPORT ---
EXAM DESCRIPTION: CT - Chest Abdomen Pelvis W Cont - 11/08/2019 12:31 pm CLINICAL HISTORY: Chest and abdomen pain. abdomnal pain;Congestion;Cough COMPARISON: Soft Tissue Neck W/Wo dated 10/24/2019; Bone Imaging Whole Body dated 06/27/2019; Soft Tis vic Neck W/Contr dated 05/04/2019; Abdomen Pelvis W Contrast dated 04/25/2019 TECHNIQUE: Approximately 100 mL nonionic IV contrast was administered to the patient. All CT scans are performed using dose optimization technique as appropriate and may include automated exposure control or mA/KV adjustment according to patient size. FINDINGS: Mild diffuse COPD is present.No pleural or pericardial effusion.No intrathoracic adenopath y. The liver, spleen, pancreas, adrenal glands and kidneys are within normal limits. Bilateral renal cys ts are seen, largest on the left measuring 5 cm and containing thin septum. No bowel obstruction, free air, free fluid or abscess. Normal appendix. Diverticulosis coli involving the sigmoid colon. Moderate stool is present in the colon. Aortic atherosclerosis. No pathologic lym phadenopathy in the abdomen or pelvis. No worrisome osseous finding. IMPRESSION: Mild diffuse COPD. No acute abnormality discerned in the chest, abdomen or pelvis. Sigmoid diverticulosis coli.
[2019-11-08 12:54] LABS: Urine Blood NEGATIVE (NEG); Urine Glucose NEGATIVE (NEG); Urine Protein NEGATIVE (NEG); Urine Specific Gravity 1.005 (1.005-1.030)
--- NOTE | 2019-11-08 13:24 | RAD REPORT ---
EXAM DESCRIPTION: RAD - Chest Single View - 11/08/2019 12:05 pm CLINICAL HISTORY: cough, congestoin and abdomnal pain Chest pain. COMPARISON: Chest Single View dated 04/25/2019; Chest Single View dated 03/15/2019; Chest Pa And Lat (2 Views) dated 07/19/2018; Chest Single View dated 07/18/2018; Chest Abdomen Pelvis W Cont dated 11/08/2019 FINDINGS: Portable technique limits examination quality. The lungs are mildly emphysematous but grossly clear. The heart is normal in size. No displaced fract ures. IMPRESSION: Mild COPD.
[2019-11-08] MEDS ORDERED: MAGNESIUM SULFATE 1 gm IVPB 1 GM/100 ML BAG IV ONE (13:42)
--- NOTE | 2019-11-08 14:31 | ER ---
Nurse's Notes [facility] Name: Bossman Gooden Age: 74 yrs Sex: Male : 1945 Arrival Date: 11/08/2019 Time: 10:31 Bed 3 Private MD: Diagnosis: Shortness of breath;Peripheral Edema;COPD;Hypomagnesemia Presentation: 11/07 10:36 Chief complaint: Patient states: productive, painful cough, throat swelling and weight ss loss x 2-3 years that has been getting worse over the past 2-3 months. Coronavirus screen: Client denies travel out of the [place] in the last 14 days. Ebola Screen: Patient denies exposure to infectious person. Patient denies travel to an Ebola-affected area in the 21 days before illness onset. Initial Sepsis Screen:. Onset of symptoms is unknown. 10:36 Method Of Arrival: Wheelchair ss 10:36 Acuity: GUANACO 3 ss 10:42 Initial Sepsis Screen: Does the patient meet any 2 criteria? No. Patient's initial hb sepsis screen is negative. Does the patient have a suspected source of infection? No. Patient's initial sepsis screen is negative. Risk Assessment: Do you want to hurt yourself or someone else? Patient reports no desire to harm self or others. Historical: - Allergies: 10:38 Keflex; ss 10:38 Sulfa (Sulfonamide Antibiotics); ss - Home Meds: 10:47 amlodipine 10 mg tab 1 tab once daily [Active]; aspirin 81 mg Oral chew 1 tab once hb daily [Active]; atorvastatin 10 mg Oral tab 1 tab once daily [Active]; Atrovent 0.5mg PRN Inhl [Active]; bevespi 2 puffs a day [Active]; clopidogrel 75 mg Oral tab 1 tab once daily [Active]; Daliresp 500 mcg Oral tab 1 tab once daily [Active]; Diphenoxylate-Atropine Oral [Active]; Klor-Con 10 Oral [Active]; prednisone 10 mg Oral tab once daily [Active]; Prednisone Oral [Active]; primadone [Active]; primidone 50 mg Oral tab 2 tabs twice a day [Active]; sertraline Oral [Active]; trelegy [Active]; Ventolin Nebulizer PRN [Active]; Ventolin HFA inhalation Nebulizer [Active]; Vitamon B [Active]; - PMHx: 10:38 Asthma; COPD; CAD; meningitis; Pneumonia; ESSENTIAL TREMORS; Hypertension; High ss Cholesterol; Emphysema; EDEMA; - PSHx: 10:38 Stents on Legs; Tonsillectomy; ss - Immunization history:: Adult Immunizations up to date. - Social history:: Smoking status: Patient reports the use of cigarette tobacco products, smokes one pack cigarettes per day. Patient uses alcohol, on a daily basis. "3 beers a day". Screenin:43 Abuse screen: Denies threats or abuse. Denies injuries from another. Nutritional hb screening: No deficits noted. Tuberculosis screening: No symptoms or risk factors identified. Fall Risk None identified. Assessment: 10:44 General: Appears in no apparent distress. Behavior is calm, cooperative, Smells of hb alcohol. Pain:. Pain: Complains of pain in chest Pain does not radiate. Pain began years ago. Neuro: Level of Consciousness is awake, alert, obeys commands, Oriented to person, place, time, situation. Cardiovascular: Patient's skin is warm and dry. Rhythm is regular. Respiratory: Respiratory effort is even, unlabored, Respiratory pattern is regular, symmetrical. GI: Reports anorexia. : No signs and/or symptoms were reported regarding the genitourinary system. EENT: No signs and/or symptoms were reported regarding the EENT system. Derm: Skin is pink, warm \\T\\ dry. Musculoskeletal: No signs and/or symptoms reported regarding the musculoskeletal system. 11:30 Reassessment: Patient appears in no apparent distress at this time. No changes from hb previously documented assessment. Patient and/or family updated on plan of care and expected duration. Pain level reassessed. 11:56 Reassessment: Pt c/o headache 07/20. Dr. García notified, Tylenol administered as hb ordered. 12:53 Reassessment: Patient appears in no apparent distress at this time. No changes from tw2 previously documented assessment. Patient and/or family updated on plan of care and expected duration. Pain level reassessed. 13:59 Reassessment: Patient appears in no apparent distress at this time. No changes from tw2 previously documented assessment. Patient and/or family updated on plan of care and expected duration. Pain level reassessed. 15:01 Reassessment: Patient appears in no apparent distress at this time. Discharge pending hb completion of IV Mag. Vital Signs: 10:36 BP 154 / 78; Pulse 83; Resp 17; Temp 97.9(TE); Pulse Ox 99% on R/A; Weight 55.79 kg; hb Height 6 ft. (182.88 cm); Pain 4/10; 11:30 BP 130 / 72; Pulse 88; Resp 17; Pulse Ox 99% on R/A; hb 12:52 BP 120 / 65; Pulse 76; Resp 17; Pulse Ox 100% on R/A; tw2 14:00 BP 126 / 69; Pulse 67; Resp 17; Pulse Ox 97% on R/A; tw2 10:36 Body Mass Index 16.68 (55.79 kg, 182.88 cm) hb ED Course: 10:31 Patient arrived in ED. mr 10:36 Yoni García MD is Attending Physician. kdr 10:37 Triage completed. ss 10:38 Arm band placed on right wrist. ss 10:43 Patient has correct armband on for positive identification. Placed in gown. Bed in low hb position. Call light in reach. Side rails up X 1. threat monitoring analyst on. Pulse ox on. NIBP on. 10:43 Patient maintains SpO2 saturation greater than 95% on room air. hb 11:18 EKG done, by ED staff, reviewed by Yoni García MD. em1 11:29 Shirin Hsu, RN is Primary Nurse. hb 12:05 XRAY Chest (1 view) In Process Unspecified. EDMS 12:32 CT Chest, Abdomen, Pelvis - W/Contrast In Process Unspecified. EDMS 14:57 Awaiting: completion of IV magnesium at this time prior to discharge. tw2 15:33 No provider procedures requiring assistance completed. IV discontinued, intact, hb bleeding controlled, No redness/swelling at site. Administered Medications: 11:55 Drug: NS 0.9% 500 ml Route: IV; Rate: bolus; Site: right antecubital; hb 12:40 Follow up: Response: No adverse reaction; IV Status: Completed infusion; IV Intake: tw2 500ml 11:55 Drug: Albuterol - atroVENT (3:1) (2.5 mg - 0.5 mg) 3 ml Route: Nebulizer; hb 12:30 Follow up: Response: No adverse reaction tw2 11:55 Drug: Tylenol 650 mg Route: PO; hb 13:24 Follow up: Response: No adverse reaction tw2 13:55 Drug: Magnesium Sulfate 1 grams Route: IVPB; Infused Over: 1 hrs; Site: right tw2 antecubital; 15:32 Follow up: Response: No adverse reaction; IV Status: Completed infusion; IV Intake: hb 100ml Intake: 12:40 IV: 500ml; Total: 500ml. tw2 15:32 IV: 100ml; Total: 600ml. hb Output: 13:56 Urine: 650ml (Voided); Total: 650ml. tw2 Outcome: 14:31 Discharge ordered by . kdr 15:33 Discharged to home via wheelchair. hb 15:33 Condition: stable 15:33 Discharge instructions given to patient, Instructed on discharge instructions, follow up and referral plans. Demonstrated understanding of instructions, follow-up care. 15:33 Patient left the ED. hb Signatures: Dispatcher [employer] EDMS Yoni García MD MD [facility] Marry Chavira, Henri em1 Gris Bowens RN RN ss Shirin Hsu RN RN Tiffany Jaimes RN RN tw2 Corrections: (The following items were deleted from the chart) 10:43 10:36 Temp 97.9F Temporal; hb
--- NOTE | 2019-11-08 14:31 | EDPHYS ---
Physician Documentation [facility] Name: Bossman Gooden Age: 74 yrs Sex: Male : 1945 Arrival Date: 11/08/2019 Time: 10:31 Bed 3 Private MD: ED Physician Yoni García HPI: 11/07 14:39 This 74 yrs old Male presents to ER via Wheelchair with complaints of Chest kdr Pain, Breathing Difficulty. 14:40 The patient has shortness of breath at rest, with light activity. kdr 14:40 Onset: The symptoms/episode began/occurred gradually, many months. Duration: The kdr symptoms are continuous, and are steadily getting worse. The patient's shortness of breath is aggravated by exertion, light activity, is alleviated by rest. Associated signs and symptoms: Pertinent positives: chest pain, Pertinent negatives: productive cough, diaphoresis, dizziness, fever, hemoptysis, loss of consciousness, nausea, numbness in extremities, visual changes. Severity of symptoms: At their worst the symptoms were moderate just prior to arrival, in the emergency department the symptoms are unchanged. The patient has experienced similar episodes in the past, chronically, Has been getting worse over time. 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 14:40 The patient has been recently evaluated by multiple providers for weight loss, SOB, CP kdr and difficulty swallowing. He has been seen by Dr. Mendiola for the difficulty swallowing without definitive diagnosis. Historical: - Allergies: 10:38 Keflex; ss 10:38 Sulfa (Sulfonamide Antibiotics); ss - Home Meds: 10:47 amlodipine 10 mg tab 1 tab once daily [Active]; aspirin 81 mg Oral chew 1 tab once hb daily [Active]; atorvastatin 10 mg Oral tab 1 tab once daily [Active]; Atrovent 0.5mg PRN Inhl [Active]; bevespi 2 puffs a day [Active]; clopidogrel 75 mg Oral tab 1 tab once daily [Active]; Daliresp 500 mcg Oral tab 1 tab once daily [Active]; Diphenoxylate-Atropine Oral [Active]; Klor-Con 10 Oral [Active]; prednisone 10 mg Oral tab once daily [Active]; Prednisone Oral [Active]; primadone [Active]; primidone 50 mg Oral tab 2 tabs twice a day [Active]; sertraline Oral [Active]; trelegy [Active]; Ventolin Nebulizer PRN [Active]; Ventolin HFA inhalation Nebulizer [Active]; Vitamon B [Active]; - PMHx: 10:38 Asthma; COPD; CAD; meningitis; Pneumonia; ESSENTIAL TREMORS; Hypertension; High ss Cholesterol; Emphysema; EDEMA; - PSHx: 10:38 Stents on Legs; Tonsillectomy; ss - Immunization history:: Adult Immunizations up to date. - Social history:: Smoking status: Patient reports the use of cigarette tobacco products, smokes one pack cigarettes per day. Patient uses alcohol, on a daily basis. "3 beers a day". ROS: 14:40 Constitutional: Negative for fever, chills, and weight loss, Eyes: Negative for injury, kdr pain, redness, and discharge, Neck: Negative for injury, pain, and swelling. 14:40 ENT: Positive for difficulty swallowing. 14:40 Neck: Negative for injury, pain, and swelling, Cardiovascular: Negative for chest pain, kdr palpitations, and edema, Respiratory: Negative for shortness of breath, cough, wheezing, and pleuritic chest pain, Abdomen/GI: Negative for abdominal pain, nausea, vomiting, diarrhea, and constipation, Back: Negative for injury and pain, : Negative for injury, bleeding, discharge, and swelling, MS/Extremity: Negative for injury and deformity, Skin: Negative for injury, rash, and discoloration, Neuro: Negative for headache, weakness, numbness, tingling, and seizure activity. Psych: Negative for depression, anxiety, suicide ideation, homicidal ideation, and hallucinations, Allergy/Immunology: Negative for hives, rash, and allergies, Endocrine: Negative for neck swelling, polydipsia, polyuria, polyphagia, and marked weight changes, Hematologic/Lymphatic: Negative for swollen nodes, abnormal bleeding, and unusual bruising. 14:40 Respiratory: Positive for cough, "sounds productive", dyspnea on exertion, shortness of breath, wheezing. Exam: 14:40 Constitutional: This is a well developed, poorly nourished/cachectic patient who is kdr awake, alert, and in no acute distress. Head/Face: Normocephalic, atraumatic. Eyes: Pupils equal round and reactive to light, extra-ocular motions intact. Lids and lashes normal. Conjunctiva and sclera are non-icteric and not injected. Cornea within normal limits. Periorbital areas with no swelling, redness, or edema. Neck: Trachea midline, no thyromegaly or masses palpated, and no cervical lymphadenopathy. Supple, full range of motion without nuchal rigidity, or vertebral point tenderness. No Meningismus. Chest/axilla: Normal chest wall appearance and motion. Nontender with no deformity. No lesions are appreciated. Cardiovascular: Regular rate and rhythm with a normal S1 and S2. No gallops, murmurs, or rubs. Normal PMI, no JVD. No pulse deficits. Respiratory: Lungs have equal breath sounds bilaterally, clear to auscultation and percussion. No rales, rhonchi or wheezes noted. No increased work of breathing, no retractions or nasal flaring. Abdomen/GI: Soft, non-tender, with normal bowel sounds. No distension or tympany. No guarding or rebound. No evidence of tenderness throughout. Back: No spinal tenderness. No costovertebral tenderness. Full range of motion. Skin: Warm, dry with normal turgor. Normal color with no rashes, no lesions, and no evidence of cellulitis. MS/ Extremity: Pulses equal, no cyanosis. Neurovascular intact. Full, normal range of motion. Neuro: Awake and alert, GCS 15, oriented to person, place, time, and situation. Cranial nerves II-XII grossly intact. Motor strength 5/5 in all extremities. Sensory grossly intact. Cerebellar exam normal. Normal gait. Psych: Awake, alert, with orientation to person, place and time. Behavior, mood, and affect are within normal limits. 19:30 ECG was reviewed by the Attending Physician. kdr Vital Signs: 10:36 BP 154 / 78; Pulse 83; Resp 17; Temp 97.9(TE); Pulse Ox 99% on R/A; Weight 55.79 kg; hb Height 6 ft. (182.88 cm); Pain 4/10; 11:30 BP 130 / 72; Pulse 88; Resp 17; Pulse Ox 99% on R/A; hb 12:52 BP 120 / 65; Pulse 76; Resp 17; Pulse Ox 100% on R/A; tw2 14:00 BP 126 / 69; Pulse 67; Resp 17; Pulse Ox 97% on R/A; tw2 10:36 Body Mass Index 16.68 (55.79 kg, 182.88 cm) hb MDM: 14:31 Patient medically screened. kdr 14:40 Data reviewed: vital signs, nurses notes, lab test result(s), EKG, radiologic studies. kdr Counseling: I had a detailed discussion with the patient and/or guardian regarding: the historical points, exam findings, and any diagnostic results supporting the discharge/admit diagnosis, lab results, radiology results, the need for outpatient follow up. ED course: The patient was happy with the care provided and the plan for discharge and follow-up. 11/07 11:32 Order name: Basic Metabolic Panel; Complete Time: 13:23 kdr 11/07 11:32 Order name: CBC with Diff; Complete Time: 13: kdr 11/07 11:32 Order name: LFT's; Complete Time: 13: kdr 11/07 11:32 Order name: Magnesium; Complete Time: 13:23 kdr 11/07 11:32 Order name: NT PRO-BNP; Complete Time: 13:23 kdr 11/07 11:32 Order name: PT-INR; Complete Time: 13: kdr 11/07 11:32 Order name: Troponin (emerg Dept Use Only); Complete Time: 13: kdr 11/07 11:32 Order name: XRAY Chest (1 view); Complete Time: 13:24 kdr 11/07 11:34 Order name: CT Chest, Abdomen, Pelvis - W/Contrast; Complete Time: 13: kdr 11/07 11:56 Order name: Urine Dipstick--Ancillary (enter results); Complete Time: 13:23 eb 11/07 11:32 Order name: EKG; Complete Time: 11:33 kdr 11/07 11:32 Order name: EKG - Nurse/Tech; Complete Time: 11:56 kdr 11/07 11:32 Order name: Cardiac monitoring; Complete Time: 11:56 kdr 11/07 11:32 Order name: IV Saline Lock; Complete Time: 11:56 kdr 11/07 11:32 Order name: Labs collected and sent; Complete Time: 11:56 kdr 11/07 11:32 Order name: O2 Per Protocol; Complete Time: 11:56 kdr 11/07 11:32 Order name: O2 Sat Monitoring; Complete Time: 11:56 kdr EC:30 Rate is 64 beats/min. Rhythm is regular, Normal Sinus Rhythm with No ectopy. QRS [place] kdr is Normal. MO interval is normal. QRS interval is normal. Clinical impression: NSR w/ Non-specific ST/T Changes. Administered Medications: 11:55 Drug: NS 0.9% 500 ml Route: IV; Rate: bolus; Site: right antecubital; hb 12:40 Follow up: Response: No adverse reaction; IV Status: Completed infusion; IV Intake: tw2 500ml 11:55 Drug: Albuterol - atroVENT (3:1) (2.5 mg - 0.5 mg) 3 ml Route: Nebulizer; hb 12:30 Follow up: Response: No adverse reaction tw2 11:55 Drug: Tylenol 650 mg Route: PO; hb 13:24 Follow up: Response: No adverse reaction tw2 13:55 Drug: Magnesium Sulfate 1 grams Route: IVPB; Infused Over: 1 hrs; Site: right tw2 antecubital; 15:32 Follow up: Response: No adverse reaction; IV Status: Completed infusion; IV Intake: hb 100ml Disposition: 11/08/19 14:31 Discharged to Home. Impression: Shortness of breath, Peripheral Edema, COPD, Hypomagnesemia. - Condition is Stable. - Discharge Instructions: Dysphagia, Hypomagnesemia, Shortness of Breath, [id number]. - Medication Reconciliation Form, Thank You Letter form. - Follow up: Private Physician; When: 2 - 3 days; Reason: If symptoms return, Further diagnostic work-up, Recheck today's complaints, Continuance of care, Re-evaluation by your physician. - Problem is an ongoing problem. - Symptoms have improved. Signatures: Dispatcher [employer] EDNC Yoni García MD MD [facility] Gris Bowens RN RN Shirin Hsu RN RN Tiffany Jaimes RN RN tw2 Corrections: (The following items were deleted from the chart) 14:31 14:31 11/08/2019 14:31 Discharged to Home. Impression: Shortness of breath; Peripheral kdr Edema. Condition is Stable. Forms are Medication Reconciliation Form, Thank You Letter, Antibiotic Education, Prescription Opioid Use. Follow up: Private Physician; When: 2 - 3 days; Reason: If symptoms return, Further diagnostic work-up, Recheck today's complaints, Continuance of care, Re-evaluation by your physician. Problem is an ongoing problem. Symptoms have improved. kdr 15:33 14:31 11/08/2019 14:31 Discharged to Home. Impression: Shortness of breath; Peripheral hb Edema; COPD; Hypomagnesemia. Condition is Stable. Forms are Medication Reconciliation Form, Thank You Letter, Antibiotic Education, Prescription Opioid Use. Follow up: Private Physician; When: 2 - 3 days; Reason: If symptoms return, Further diagnostic work-up, Recheck today's complaints, Continuance of care, Re-evaluation by your physician. Problem is an ongoing problem. Symptoms have improved. kdr
--- NOTE | 2019-11-09 05:48 | EKG ---
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
[2019-11-12 13:25] VITALS: TEMP 97.9
[2019-11-12 13:29] VITALS: BP 126/69; O2SAT 97
== END 2019-11-08 15:33 | disposition home or self-care (01) ==
LOC: ER 10:28
DX: J44.9 Chronic obstructive pulmonary disease, unspecified (principal); R60.9 Edema, unspecified; E83.42 Hypomagnesemia; I10 Essential (primary) hypertension; E78.00 Pure hypercholesterolemia, unspecified; F17.210 Nicotine dependence, cigarettes, uncomplicated; Z79.82 Long term (current) use of aspirin; Z88.1 Allergy status to other antibiotic agents; Z88.2 Allergy status to sulfonamides
CPT/HCPCS: 96365; 96361; 93005; 85025; 80048; 36415; 83735; 85610; 82565; 80076; 81003; 84484; 83880; 71260; 74177; 71045; 99285; 96366; Q9967; J3475; J7040 ×2

== ENCOUNTER 2019-11-19 18:08 | Inpatient (IN) | payer OTHER ==
--- OUTSIDE RECORDS SUMMARY | 2019-11-19 18:16 | XMS REPORT | Continuity of Care Document ---
:1945 Author Organization [employer] Care Team Providers Name Role Phone Numecent Unavailable Un available Problems Problem Status Onset Classification Date Comments Sour e Date Reported Essential tremor Active Problem 06/18/2018 Data nathaniel rated from [employer] on 12/27/2016. Originally documented as Essential tremor. Mischer (disorder) 017 Data migrated from [employer] on 11/02/2016. Originally documented as Essential tremor. Neuro, Data migrated from [employer] on 05/12/2016. Originally documented as Essential tremor. [facility] HEADACHE Active [facility] 017 [facility] FOOT PAIN OR Active [facility] INJURY 017 Hospital CELLULITIS OF Active Jyoti y RIGHT LOWER LIMB 017 Hos pital WOUND Active [facility] 017 Rehab ACUTE RESPIRATORY Active [facility] FAILURE, ACUTE 016 Hospi vasquez RESPIRA SHORTNESS OF Active [facility] BREATH 016 Hospital PCP SENT/WEAKNESS Active [facility] 016 [facility] ACUTE COPD Active [facility] EXACERBATION 016 Hospita l COPD Active [address] 305.1 - TOBACCO Active O PID [facility] USE DIS 015 TOBACCO ABUSE Active Condition 07/23/2014 [facility] dical 015 Group Tobacco dependence Active Problem 06/18/2018 Data m igrated from [employer] on 09/17/14. 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 Neuro, (disorder) [facility] LOSS OF WEIGHT Active Condition 07/23/2014 [facility] edical 015 Group CAROTID BRUIT, Active Condition 07/23/2014 [facility] edical RIGHT 015 Group Carotid bruit Active Problem 06/18/2018 Data migrat ed from [employer] on 09/17/14. Mischer (finding) 015 Data migrated from G E [employer] on 08/12/14. Neuro,[facility] Rehab,[facility] Weight decreased Active Problem 06/18/2018 Data nathaniel rated from [employer] on 09/17/14. Mischer (finding) 015 Data migrated from E [employer] on 08/12/14. Neuro,[facility] Rehab,[facility] PNEUMONIA Active [place] [address] [facility] COPD EXACERBATION Active [address] RASH AND OTHER Inactive Condition 07/23/2014 [facility] edical NONSPECIFIC SKIN 015 Az up ERUPTION RASH Active [facility] 014 [facility] CELLULITIS FAILED Active [facility] OUTPATIENT THERAPY 014 H ospital ERYSIPELAS Inactive Condition 07/23/2014 Medic al 014 Group Erysipelas Resolved Problem 06/18/2018 Data Mischer (disorder) 014 migrated Neuro, from [facility], on 09/26/14. [facility] SEBORRHEIC Inactive Condition 07/23/2014 Medic al KERATOSIS 014 Group SUPERIOR GLENOID Inactive Condition 07/23/2014 Medical LABRUM LESIONS 014 Group (SLAP) ROTATOR CUFF TEAR Inactive Condition 07/23/2014 [facility] Medical 014 Group HYPOTHYROIDISM Active Condition 07/23/2014 [facility] edical 014 Group HYPOGONADISM Active Condition 07/23/2014 Med ical 014 Group SHOULDER PAIN, Inactive Condition 07/23/2014 [facility] edical LEFT 014 Group PERIPHERAL Active [...] Centricity on 08/12/14. [facility], [facility], [facility] Hypogonadism Active Problem 06/18/2018 Data migrate d from [employer] on 09/17/14. Mischer (disorder) 014 Data migrated from [employer] on 08/12/14. Neuro,[facility] Data migrated from G E [employer] on 08/12/14. [facility] Osteoporosis Active Problem 06/18/2018 Data migrate d from [employer] on 09/17/14. Mischer (disorder) 014 Data migrated from [employer] on 08/12/14. Neuro, Data migrated from G [facility] [employer] on 08/12/14. [place] [facility] Peripheral Active Problem 06/18/2018 Data migrated from [employer] on 09/17/14. Mischer vascular disease 014 Data migrated from [employer] on 08/12/14. Neuro, (disorder) Data migrated from [employer] on 08/12/14. 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, disease (disorder) K [facility] Re[facility], [facility], [facility] Poor short-term Active Problem 06/18/2018 Mis shamar memory (finding) Dede ro Smoker (finding) Active Problem 06/18/2018 Mi sofya Neuro,[facility] Rehab,[facility] COPD Resolved Problem 09/14/2012 [facility] Cellulitis of Active Diagnosis 02/18/2017 W Kristin right lower limb Inf ectious Disease RESPIRATORY ABNORM Active Valarie Tavares [facility] CHR AIRWAY Active PATTIE Tavares [facility]CT [facility] Hospita l CELLULITIS NOS Active [facility] CHRONIC Active [facility] OBSTRUCTIVE PULMON H ospital DISEASE W ACU ACUTE RESPIRATORY Active PATTIE Tavares FAILURE, UNSP W Hosp ital HYPOXI Medications Medication Details Route Status Patient Ordering Order Source Instructions Provider Date rivastigmine See Active 06/26/ Mischer 1.5 mg oral Instructions 2018 Neuro capsule , # 180 unknown unit, Refill(s) 3, TAKE 1 CAPSULE BY MOUTH TWICE DAILY, Pharmacy: [facility] [id number] primidone 50 mg See Active 06/05/ Mischer oral tablet Instructions 2018 Neuro , 4 tabs twice a day, # 720 tab, 3 Refill(s), Pharmacy: [facility] [id number] Megestrol See Active 05/12/ Maryanncher Acetate 40 Instructions 2018 Neuro MG/ML Oral , # 600 mL, Suspension SHAKE WELL AND TAKE 20 ML BY MOUTH EVERY DAY, Pharmacy: [facility] [id number] rivastigmine 1.5 mg = 1 No Longer 04/24/ Mische r 1.5 mg oral cap, PO, Active 2018 Neuro capsule BID, # 60 cap, 3 Refill(s), Pharmacy: [facility] [id number] diazepam 2 mg 2 mg = 1 [...] BID, # 60 tab, 0 Refill(s) Nystatin 445674 500,000 unit Active [facility] UNT/ML Oral = [...] Active 2017 Hospital PO, Drug form: TAB, [id number], Dosing Weight 71.682, kg, Start date: 06/25/16 [...] Longer Anusha as: MaxEPA, Active 2017 [facility] 3 fish oil ) Non-Formular y Drug Vitamin C Notes: (Same No Longer An[facility] as: Vitamin Active 2017 [facility] C) Spiriva Notes: (Same No Longer [...] / as: Duoneb) Active 2017 Hospital Ipratropium Tyler 0.167 MG/ML Inhalant Solution Nystatin [id number] 500,000 No Longer Jyoti y UNT/ML Oral [...] / NEB, Dosing 2017 Hospital Ipratropium Weight Tyler 0.167 71.682, kg, MG/ML Inhalant PRN, PRN [...] No Longer Jyoti y Start date: Active [address] [place] [address] 06/21/16 22:51:00 CDT, Duration: 30 day, Stop date: 07/21/16 22:50:00 CDT Ondansetron Notes: (Same No Longer Ellis dailey as: Zofran) Active 2017 Hospital MEDICATION WASTE Product Size: 4 mg Product Wasted: ___ mg Acetaminophen 1 tab, No Longer [facility] 325 MG / Route: PO, Active [address] [place] [address] Hydrocodone Drug Form: Bitartrate 5 MG TAB, [...] Vancomycin 1,000 mg, Inactive An[facility]a Route: IVPB, [address] [place] [address] Drug form: INJ, ONCE, Dosing Weight 69.091, kg, Priority: STAT, Start date: 06/21/16 20:24:00 CDT, Stop date: 06/21/16 20:24:00 CDT, TIME CRITICAL MEDICATION Ciprofloxacin 400 mg, Inactive An[facility]a Route: IVPB, [facility] ONCE, Dosing Weight 69.091, kg, Priority: STAT, Start date: 06/21/16 20:24:00 CDT, Stop date: 06/21/16 20:24:00 CDT Albuterol 0.833 Notes: (Same Inactive An[facility] MG/ML / as: Duoneb) [address] [place] [address] Ipratropium Tyler 0.167 MG/ML Inhalant Solution [DuoNeb] Acetaminophen Notes: Do Inactive An[facility] not exceed 4 2017 Hospital gm/day. (Same as: Tylenol) Sodium Chloride 25 mL, No Longer Jyoti y 0.9% IV Route: IV, Active [facility] Start date: 06/21/16 18:40:00 CDT, Duration: 30 day, Stop date: 07/21/16 18:39:00 CDT, PRN Line Flush Hydralazine Notes: (Same Inactive Jyoti y as: 2017 Hospital Apresoline) Push over 5 minutes Morphine Notes: (Same Inactive Anusha as:MORPhine 2017 [facility] Sulfate) Morphine Notes: (Same Inactive Anusha as:MORPhine 2017 [facility] Sulfate) Diphenhydramine Notes: (Same Inactive Anusha [...] day, # 60 cap, 0 Refill(s), Pharmacy: [facility] [id number] ciprofloxacin 500 mg = 1 Active An[facility] 500 mg oral tab, PO, 2017 Hospital tablet Q12H, X 30 day, # 60 tab, 0 Refill(s), Pharmacy: [facility] [id number] Nicotine Notes: (Same Inactive Anusha as: 2017 [...] form: INJ, ABXQ8H, Start date: 05/17/16 21:30:00 MEDICAL BILLING ASSOCIATE, Duration: 30 day, Stop date: 06/16/16 13:30:00 [...] 05/17/ H [facility] As: Tessalon Active 2016 [facility] Perles) "Do Not Crush" Loratadine Notes: 1 hr No Longer [facility] before meals Active 2016 Hospital (Same as: Claritin) Non-formular y item Hydralazine Notes: (Same No Longer Ka ty as: Active 2016 [facility] Apresoline) Push over 5 minutes Acetaminophen Notes: (Same No Longer [facility] 325 MG / as: Platinum Active 2016 [facility] Hydrocodone 325/5) Do Bitartrate 5 MG not exceed Oral Tablet 4gm/day of [Platinum 5/325] acetaminophe n. Acetaminophen Notes: Do No Longer Jyoti y 325 MG / not exceed Active 2016 [facility] Hydrocodone 4gm/day of Bitartrate 10 acetaminophe MG Oral Tablet n. (Same [Platinum 10/325] as: Platinum 325/10) Lorazepam Notes: (Same No Longer [facility] as: Ativan) Active 2016 Hospital Morphine 1 mg, 0.5 No Longer [facility] mL, Route: Active 2016 Hospital IVP, Drug form: SOLN, Q4H, Dosing Weight 74.545, kg, PRN Pain Score 7-10, if unable to take po, Start date: 05/17/16 16:41:00 MEDICAL BILLING ASSOCIATE, Duration: 30 day, Stop date: 06/16/16 16:40:00 CDT Albuterol 0.833 Notes: (Same No Longer 05/17/ H [facility] MG/ML / as: Duoneb) Active [address] [place] [address] Ipratropium Tyler 0.167 MG/ML Inhalant Solution Vancomycin 1,118.175 Inactive [facility] mg, Route: [address] [place] [address] IVPB, ABXQ8H, Dosing Weight 74.545, kg, TIME CRITICAL MEDICATION, Priority: STAT, Start date: 05/17/16 16:39:00 MEDICAL BILLING ASSOCIATE, Duration: 30 day, Stop date: 06/16/16 8:39:00 CDT Clindamycin 600 mg, Inactive [facility] Route: IVPB, [address] [place], [place] [id number], Dosing Weight 74.545, kg, Priority: STAT, Start date: 05/17/16 16:39:00 MEDICAL BILLING ASSOCIATE, Duration: 30 day, Stop date: 06/16/16 8:39:00 CDT Saline Flush Notes: (Same No Longer K aty 0.9% as: BD Active [address] [place] [address] Posiflush) Sodium Chloride 1,000 mL, No Longer K aty 0.154 MEQ/ML Rate: [address] [place] [address] Injectable ml/hr, Solution Infuse over: 10 hr, Route: IV, Dosing Weight 74.545 kg, Total Volume: 1,000, Start date: 05/17/16 16:39:00 MEDICAL BILLING ASSOCIATE, Duration: 30 day, Stop date: 06/16/16 16:38:00 CDT Acetaminophen 100.4 F, Inactive [facility] Start date: [address] [place] [address] 05/17/16 16:39:00 MEDICAL BILLING ASSOCIATE, Duration: 30 day, Stop date: 06/16/16 16:38:00 CDT Clindamycin 600 mg, 50 Inactive [facility] mL, Route: 2017 [facility] IVPB, Drug form: INJ, ONCE, Dosing Weight 74.545, kg, Priority: STAT, Start date: 05/17/16 12:31:00 MEDICAL BILLING ASSOCIATE, Stop date: 05/17/16 12:31:00 MEDICAL BILLING ASSOCIATE Symbicort 2 puff, Active [facility] 160/4.5 INHALATION, 2016 [facility] inhalation RBID, # 1 aerosol with [...] / as: Duoneb) Active 2015 Hospital Ipratropium Tyler 0.167 MG/ML Inhalant Solution [DuoNeb] Acetylcysteine 200 [...] Black Ipratropium Notes: SEE No Longer [facility] [place] 0.2 RT Active 2015 Hospital MG/ML Inhalant DOCUMENTATIO Solution N (Same as:Atrovent) Levalbuterol Notes: SEE No Longer Jyoti y RT Active 2015 Hospital DOCUMENTATIO N (Same as:Xopenex) Non-Formular y Nicotine Notes: (Same No Longer [facility] as: Active 2016 Hospital Habitrol) WASTE: F/P - P Waste Black; E - P Waste Black Ipratropium Notes: SEE Inactive [facility] Tyler 0.2 RT 2016 Hospital MG/ML Inhalant DOCUMENTATIO [...] Anusha one SODium as:Solu-MEDR Active 2016 Hospital [facility], A-Methapred) Albuterol 0.833 Notes: (Same No Longer 07/15/ M H [facility] MG/ML / as: Duoneb) Active 2016 Hospital Ipratropium Tyler 0.167 MG/ML Inhalant Solution Levalbuterol Notes: SEE Inactive [facility] RT 2016 Hospital DOCUMENTATIO N (Same as:Xopenex) Non-Formular y methylPREDNISol Notes: (Same Inactive [facility] one as:Solu-MEDR 2016 [facility], A-Methapred) methylPREDNISol Notes: (Same Inactive [facility] one SODium as:Solu-MEDR 2016 [facility], A-Methapred) atorvastatin Notes: (Same No Longer K [...] MG/ML / as: Duoneb) 2016 Hospital Ipratropium Tyler 0.167 MG/ML Inhalant Solution Sodium Chloride 25 [...] Notes: (Same Inactive An[facility]a as: Ativan) 2016 [facility] Sodium Chloride 1,000 mL, Inactive Ka [...] Inactive An[facility] MG/ML / as: Duoneb) 2016 [facility] Ipratropium Tyler 0.167 MG/ML Inhalant Solution [DuoNeb] Brovana Notes: [...] Inactive An[facility] MG/ML / as: Duoneb) 2016 [facility] Ipratropium Tyler 0.167 MG/ML Inhalant Solution Solu-Medrol Notes: (Same Inactive Jyoti y as:Solu-MEDR 2016 Hospital [facility], A-Methapred) Melatonin Notes: (Same Inactive [facility] as: 2016 [facility] Melatonin) Acetaminophen Notes: Do Inactive [facility] 325 MG / not exceed 2016 Hospital Hydrocodone 4gm/day of Bitartrate 10 acetaminophe MG Oral Tablet n. (Same [Platinum 10/325] as: Platinum 325/10) Hydralazine Notes: (Same Inactive Jyoti y as: [address] [place] [address] Apresoline) Push over 5 minutes Acetaminophen Notes: Do Inactive Anusha not exceed 4 [facility] gm/day. (Same as: Tylenol) Caitlin Cox Notes: (Same Inactive [facility] As: Tessalon 2016 [facility] Perles) "Do Not Crush" Morphine Notes: (Same Inactive An[facility] as:MORPhine 2016 Hospital Sulfate) Loratadine Notes: 1 [...] No Longer An[facility] 325 MG / as: Platinum Active 2015 Hospital Hydrocodone 325/5) Do Bitartrate [...] Inactive [facility] MG/ML / 2016 Hospital Ipratropium [place] 0.167 MG/ML Inhalant Solution atorvastatin 10 10 [...] MG/ML / as: Duoneb) 2016 Hospital Ipratropium Tyler 0.167 MG/ML Inhalant Solution methylPREDNISol Notes: (Same [...] / as: Duoneb) Active 2016 Hospital Ipratropium [place] 0.167 MG/ML Inhalant Solution [DuoNeb] BD Normal Notes: (Same No Longer [facility] Saline Flush as: BD Active 2016 Hospital Posiflush) Sodium Chloride IV, 0 ml/hr, No Longer H [facility] 0.9% IV PRN, PRN Active 2015 [facility] Line Flush, Start date: 05/04/15 17:42:00, Duration: 30, 25 ml Levaquin Notes: (Same No Longer [facility] as:Levaquin) Active 2016 [facility] Notes: (Same No Longer H Anusha As: Tessalon Active 2016 [facility] Perl) "Do Not Crush" Robitussin-AC Notes: (Same No Longer [facility] oral syrup As: Active 2015 [facility] Robitussin AC) Unknown Home 2 puffs, [...] Anusha 500 mg oral tab, PO, 2013 [facility] tablet Q12H, # 14 tab, 0 Refill(s) methylPREDNISol 40 mg, Inactive An[facility]a one SODium Route: IVP, 2013 [facility] SUCCinate Q6H, Dosing Weight 80.909, kg, Priority: Routine, Start date: 05/16/13 18:00:00, Duration: 30 day, Stop date: 06/15/13 12:00:00 Acetylcysteine 2 mL, Route: Inactive [facility] 100 MG/ML [facility], Drug 2013 [facility] Inhalant Form: SOLN, Solution Dosing Weight 80.909, kg, Q8H, Start date: 05/16/13 16:00:00, Duration: 30 day, Stop date: 06/15/13 8:00:00 acetylcysteine 200 mg, 1 No Longer Ka ty mL, Route: Active 2013 [facility] Drug Form: SOLN, RQ8H, Start date: 05/16/13 15:00:00, Duration: 30 day, Stop date: 06/15/13 7:00:00 Albuterol 0.833 3 ml, Route: No Longer H [facility] MG/ML / INHALATION, Active 2013 [facility] Ipratropium Drug Form: Tyler 0.167 SOLN, Dosing MG/ML Inhalant Weight Solution 80.909, kg, [DuoNeb] RQ4H, Start date: 05/16/13 15:00:00, Duration: 30 day, Stop date: 06/15/13 11:00:00([facility] e as: Duoneb) Cipro 400 mg, 200 No Longer [facility] mL, Route: Active 2013 [facility] IVPB, Drug form: INJ, [id number], Dosing Weight 80.909, kg, Start date: 05/16/13 13:00:00, Duration: 30 day, Stop date: 06/15/13 1:00:00Do not refrigerate dexamethasone 4 mg, 1 mL, No Longer K aty Route: IV, Active 2013 [facility] Drug form: INJ, Q6H, Start date: 05/16/13 12:21:00, Duration: 30 day, Stop date: 06/15/13 12:00:00Conc entration: 4mg/ml Sodium Chloride 25 mL, No Longer Jyoti y 0.9% IV Route: IV, [facility] 2013 [facility] Start date: 05/16/13 12:18:00, Duration: 30 day, Stop date: 06/15/13 13:17:00, PRN Line Flush BD Normal 10 mL, No Longer [facility] Saline Flush Route: IV, Active 2013 [facility] Drug Form: INJ, PRN, PRN Line Flush, Start date: 05/16/13 12:17:00, Duration: 30 day, Stop date: 06/15/13 13:16:00([facility] e as: BD Posiflush) Robitussin-AC 5 ml, Route: No Longer [facility] oral syrup PO, Drug Active 2013 [facility] Form: SYRP, Dosing Weight 80.909, kg, Q4H, PRN Cough/Conges tion, Start date: 05/16/13 12:04:00, Duration: 30 day, Stop date: 06/15/13 12:03:00(cod eine-guaifen esin 20-200mg/10m l LIQ) (Same As: Robitussin AC) predniSONE 20 20 mg, 1 PO Active Hinojosa [facility] mg oral tablet tab, PO, 2012 [facility] BID, 14 tab, Substitution Allowed, TAB DuoNeb 3 ml, INHALATION Active Hinojosa [facility] inhalation INHALATION, 2012 [facility] solution Q4H, 120 ea, Substitution Allowed, Maintenance, SOLN DuoNeb 3 ml, Route: NEB No Longer Hinojosa 09/11/ Anusha inhalation NEB, Drug Active 2012 [facility] solution Form: SOLN, Dosing Weight 80.028, [...] Hinojosa 09/11/ Anusha mL, Route: Active 2012 [facility] IVPB, Drug form: INJ, [id number], Dosing Weight 80.028, kg, Start date: 09/11/12 12:00:00, Duration: 30 day, Stop date: 10/11/12 0:00:00 methylPREDNISol 40 mg, 1 mL, IVP No Longer Hinojosa 09/11/ M H Anusha one SODium Route: IVP, Active 2012 [facility] SUCCinate Drug form: INJ, Q8H, Dosing Weight 80.028, kg, Priority: Routine, Start date: 09/11/12 12:00:00, Duration: 30 day, Stop date: 10/11/12 4:00:00 Sodium Chloride 25 mL, IV No Longer Hinojosa 09/11/ Jyoti y 0.9% IV Route: IV, Active [address] [place] [address] Start date: 09/11/12 11:48:00, Duration: 30 day, Stop date: 10/11/12 11:47:00, PRN Line Flush BD Normal 10 mL, IV No Longer Kannan 09/11Rico Tavares Saline Flush Route: IV, [address] Drug Form: INJ, PRN, PRN Line Flush, Start date: 09/11/12 11:48:00, Duration: 30 day, Stop date: 10/11/12 11:47:00 Robitussin-AC 5 ml, Route: PO No Longer Kannan 09/11/ PATTIE Tavares oral syrup PO, Drug [facility] 2012 [facility] Form: SYRP, Dosing Weight 80.028, kg, Q4H, PRN Cough/Conges tion, Start date: 09/11/12 11:36:00, Duration: 30 day, Stop date: 10/11/12 11:35:00 NS 1,000 mL 1,000 mL, IV No Longer Kannan 09/11Rico Tavares Rate: [address] [place] [address] Hospital ml/hr, Infuse over: 10 hr, Route: [...] Assertion Drug Active Data migr ated from [email or web address] on 07/10/14. Originally documented as KEFLEX. [facility] <sup>1, allergy [address] [facility] 2</sup> cephalexin Assertion Drug Active Data migr ated from [employer] on 05/11/16. Originally documented as Keflex. Mischer <sup>2, 3, allergy 7 Data migrated from [email or web address] on 07/10/14. Originally documented as KEFLEX. Neuro 4</sup> exudative dermat itis cephalexin Assertion Drug Active Data migr ated from [employer] on 05/11/16. Originally documented as Keflex. MH Anusha <sup>1, 2, allergy 7 Data migrated from [email or web address] on 07/10/14. Originally documented as KEFLEX. Hospital [...] 12.7 10.0 - 06/[address] [facility] ELECTROLYTE BUN 7 7 - 22 06/[address] [facility] ELECTROLYTE Glucose Lvl 101 70 - 99 06/24 [facility] BACTERIAL - Strep Negative Negative 06/23 [...] 1+ None Seen 06/22 [facility] *ABN* /2016 [facility] (06/22/16 4:19 AM) HEMATOLOGY Monocytes # 1.0 0.0 - 0.8 06/[address] [facility] HEMATOLOGY Basophils 0.2 0.0 - 1.0 06/22 [facility] HEMATOLOGY Monocytes 12.1 2.0 - 12.0 06/[address] [facility] HEMATOLOGY Lymphocytes 5.5 20.0 - 06/22 [facility] 40.0 Hospital HEMATOLOGY Segs 81.7 45.0 - 06/22 [facility] 75.0 Hospital HEMATOLOGY Eosinophils 0.5 0.0 - 4.0 06/[address] [facility] HEMATOLOGY Lymphocytes 0.5 1.0 - 5.5 06/22 An[facility]a # /2016 [facility] HEMATOLOGY Segs-Bands # 6.8 1.5 - [...] 5.0 5.0 - 8.0 06/[address] [facility] URINE AND UA Spec Grav 1.023 [...] Occasional Few /LPF 06/21 Anusha STOOL /LPF [facility] URINE AND UA Leuk Est Negative Negative 06/21 [facility] STOOL (06/21/16 5:17 PM) Hospit al URINE AND UA Bacteria Occasional None Seen 06/21 Ka ty STOOL /HPF /HPF Hospital URINE AND UA <=1.0 0.1 - 1.0 06/21 [facility] STOOL Urobilinogen mg/dL [facility] CARDIAC Troponin-I 0.02 0.00 - 06/[address] [facility] CARDIAC CK MB <0.5 0.5 - 3.6 06/[address] [facility] CARDIAC Total CK 49 12 - 191 06/[address] [facility] CARDIAC CK MB Index <1.0 0.0 - 2.5 06/[address] [facility] CHEM PANEL B/C Ratio 25 6 - 25 06/21 [facility] CHEM PANEL Globulin 3.6 2.7 - 4.2 06/[address] [facility] CHEM PANEL A/G Ratio 0.9 0.7 - 1.6 06/[address] [facility] CHEM PANEL Alk Phos 56 39 - 136 06/21 [facility] CHEM PANEL AST 24 0 - 37 06/21 [facility] CHEM PANEL Bili Total 0.7 0.2 - 1.3 06/[address] [facility] CHEM PANEL Albumin Lvl 3.2 3.5 - 5.0 06/21 [facility] CHEM PANEL ALT 31 0 - 65 06/[address] [facility] CHEM PANEL Total 6.8 6.4 - 8.4 06/21 [facility] HEMATOLOGY PT 12.4 12.0 - 06/21 [facility] 14.7 Hospital HEMATOLOGY INR 0.91 0.85 - 06/21 [facility] 1.17 Hospital HEMATOLOGY MPV 9.2 7.4 - 10.4 06/[address] [facility] HEMATOLOGY RDW 13.6 11.5 - 06/21 [...] WBC 10.1 3.7 - 10.4 06/[address] [facility] HEMATOLOGY RBC 4.83 4.70 - 06/21 [...] 06/21 [facility]21/16 4:15 PM[facility] - Influ A Negative Negative 06/21 [facility]OLOG[facility] (06/21/16 4:15 PM) [facility] eGFR 92 05/18 Result [...] Chloride Lvl 110 95 - 109 03/ [facility] CHEM PANEL Glucose Lvl 95 70 - 99 03 Hospital CHEM PANEL Sodium Lvl 144 135 - 145 03/ Hospital CHEM PANEL BUN 8 7 - 22 03/ Hospital HEMATOLOGY Eosinophils 3.1 0.0 - 4.0 03/08 [facility] HEMATOLOGY Lymphocytes 1.4 1.0 - 5.5 03 Anusha # [facility] HEMATOLOGY Segs-Bands # 3.2 1.5 - 8.[address] [facility] HEMATOLOGY Monocytes 11.9 2.0 - 12.0 03/ [facility] HEMATOLOGY Basophils 0.4 0.0 - 1.[address] [facility] HEMATOLOGY Macrocyte 1+ None Seen 05/18 [facility] *ABN* /2016 [facility] (05/18/16 5:43 AM) HEMATOLOGY Eosinophils 0.2 0.0 - 0.5 03/08 An[facility] # [facility] HEMATOLOGY Monocytes # 0.6 0.0 - 0.8 03/ [facility] HEMATOLOGY Lymphocytes 25.2 20.0 - 03/08 [...] 1+ None Seen 05/17 [facility] *ABN* /2016 [facility] (05/17/16 1:08 PM) HEMATOLOGY Monocytes # [...] ELECTROLYTE BUN 5 7 - 22 05/17 [facility] ELECTROLYTE Glucose Lvl 89 70 - 99 05/17 [facility] ELECTROLYTE eGFR 87 05/17 Result Comment: [...] Calcium Lvl 8.8 8.5 - 10.5 07/18 [facility] CHEM PANEL Creatinine 0.78 0.50 - [...] 0.2 0.0 - 0.2 05/ Anusha /2016 [facility] HEMATOLOGY Segs-Bands # 11.8 1.5 - 8.1 05 Jyoti y /2015 Hospital HEMATOLOGY Eosinophils 0.0 0.0 - 0.5 05/08 An[facility] # /2016 Hospital HEMATOLOGY Monocytes # 0.4 0.0 - 0.8 05/08 [facility] /2015 [facility] HEMATOLOGY Basophils 1.4 0.0 - 1.0 [...] 0.0 0.0 - 4.0 05/08 Anusha /2015 [facility] HEMATOLOGY Monocytes 3.4 2.0 - 12.0 05/08 [facility] /2016 Hospital HEMATOLOGY MCH 32.9 27.0 - 05/08 [facility] 31.0 [facility] HEMATOLOGY MCV 101.1 80.0 - 0508 [facility] 94.0 [facility] HEMATOLOGY MCHC 32.6 32.0 - 05/08 [facility] 36.0 /2015 Hospital HEMATOLOGY WBC 12.6 3.7 - 10.4 07/18 [facility] /2015 [facility] HEMATOLOGY RBC 4.21 4.70 - 07/[address] [facility] HEMATOLOGY Hgb 13.9 14.0 - 07/18 [facility] 18.0 [facility] HEMATOLOGY Hct 42.6 42.0 - 07/[address] [facility] HEMATOLOGY MPV 8.4 7.4 - 10.4 07/18 [facility] /2015 [facility] HEMATOLOGY Platelet 165 133 - 450 07/[address] [facility] HEMATOLOGY RDW 14.6 11.5 - 07/18 [facility] 14.5 [facility] ELECTROLYTE AGAP 9.3 10.0 - 07/[address] [facility] [facility] ELECTROLYTE B/C Ratio 14 6 - 25 07/[address] [facility] ELECTROLYTE Globulin 3.2 2.0 - 4.0 07/[address] [facility] ELECTROLYTE A/G Ratio 0.9 0.7 - 1.6 07/[address] [facility] ELECTROLYTE Potassium 4.3 3.5 - 5.1 07/15 [facility] S Lvl /2015 [facility] ELECTROLYTE Chloride Lvl 106 95 - 109 [address] [facility] ELECTROLYTE Sodium Lvl 139 135 - 145 07/[address] [facility] ELECTROLYTE eGFR 76 07/15 Result Comment: [...] 70 - 99 05/05 [facility] S /2015 [facility] ELECTROLYTE BUN 14 7 - 22 05/05 [facility] S /2015 [facility] ELECTROLYTE Creatinine 1.01 0.50 - 05/05 [facility] S Lvl 1.40 /2015 [facility] ELECTROLYTE Calcium Lvl 8.2 8.5 - 10.5 05/05 Ka ty S /2015 [facility] ELECTROLYTE CO2 28 24 - 32 05/05 [facility] S /2015 [facility] ELECTROLYTE Albumin Lvl 3.0 3.5 - 5.0 05/[address] [facility] ELECTROLYTE ALT 29 0 - 65 05/05 [facility] S /2015 [facility] ELECTROLYTE Total 6.2 6.4 - 8.4 05/[address] [place] [address] [facility] ELECTROLYTE Bili Total 0.4 0.2 - 1.3 05/[address] [facility] ELECTROLYTE AST 36 0 - 37 05/[address] [facility] ELECTROLYTE Alk Phos 56 39 - 136 05/[address] [facility] HEMATOLOGY Lymphocytes 2.3 20.0 - 05/[address] [facility] HEMATOLOGY Segs-Bands # 10.4 1.5 - 8.1 05/[address] [facility] HEMATOLOGY Basophils 0.0 0.0 - 1.0 05/05 [facility] /2016 [facility] HEMATOLOGY Monocytes 3.2 2.0 - 12.0 05/[address] [facility] HEMATOLOGY Segs 94.5 45.0 - 05/[address] [facility] HEMATOLOGY Basophils # 0.0 0.0 - 0.2 05/05 [facility] /2016 [facility] HEMATOLOGY Eosinophils 0.0 0.0 - 0.5 05/05 [facility] # /2016 Hospital HEMATOLOGY Eosinophils 0.0 0.0 - 4.0 05/05 [facility] /2016 [facility] HEMATOLOGY Monocytes # 0.3 0.0 - 0.8 05/05 [facility] /2016 [facility] HEMATOLOGY Lymphocytes 0.3 1.0 - 5.5 05/05 [facility] # /2016 [facility] HEMATOLOGY MCHC 33.3 32.0 - 05/05 [facility] 36.0 /2016 Hospital HEMATOLOGY MPV 8.4 7.4 - 10.4 05/05 [facility] /2016 [facility] HEMATOLOGY Platelet 167 133 - 450 05/05 [facility] HEMATOLOGY MCH 33.6 27.0 - 05 [facility] 31.0 /2015 [facility] HEMATOLOGY RDW 15.5 11.5 - [address] [facility] HEMATOLOGY Hgb 13.6 14.0 - [address] [facility] HEMATOLOGY RBC 4.05 4.70 - 07/15 [facility] 6.10 /2015 [facility] HEMATOLOGY MCV 100.9 80.0 - 05 [facility] 94.0 /2015 [facility] HEMATOLOGY Hct 40.9 42.0 - 05 [facility] 54.0 /2015 [facility] HEMATOLOGY WBC 11.0 3.7 - 10.4 05 Hospital CHEM PANEL BUN 14 7 - [address] [facility] CHEM PANEL Sodium Lvl 143 135 - [address] [facility] CHEM PANEL Glucose Lvl 140 70 - 99 07/14 [facility] CHEM PANEL Chloride Lvl 107 95 - 109 07/14 Hospital CHEM PANEL Potassium 4.1 3.5 - 5.1 07/14 [facility] Lvl [facility] CHEM PANEL CO2 25 24 - 32 05 Hospital CHEM PANEL Albumin Lvl 3.5 3.5 - 5.0 07/14 [facility] CHEM PANEL Calcium Lvl 8.9 8.5 [...] PANEL AST 35 0 - 37 05/ [facility] CHEM PANEL Creatinine 1.17 0.50 - 05 [facility] Lvl 1.40 /2015 [facility] CHEM PANEL ALT 40 0 - 65 05/ [facility] CHEM PANEL Total 7.0 6.4 - 8.[address] [facility] CHEM PANEL Alk Phos 66 39 - 136 05/ [facility] CHEM PANEL Bili Total 0.4 0.2 - 1.3 05/ [facility] CHEM PANEL AGAP 15.1 10.0 - [address] [facility] CHEM PANEL Globulin 3.5 2.0 - 4.0 05/ [facility] CHEM PANEL A/G Ratio 1.0 0.7 - 1.6 07/14 [facility] CHEM PANEL B/C Ratio 12 6 - 25 05/ [facility] HEMATOLOGY INR 0.98 0.85 - 05 [facility] 1.17 [facility] HEMATOLOGY PT 13.3 12.0 - [address] [facility] HEMATOLOGY Platelet 218 133 - [address] [facility] HEMATOLOGY MPV 8.1 7.4 - 10.4 05/ [facility] HEMATOLOGY Hct 45.9 42.0 - [address] [facility] HEMATOLOGY MCHC 32.4 32.0 - 05 [facility] 36.0 [facility] HEMATOLOGY RDW 15.2 11.5 - 05 [facility] 14.5 /2015 [facility] HEMATOLOGY MCV 101.9 80.0 - 05 [facility] 94.0 /2015 [facility] HEMATOLOGY MCH 33.0 27.0 - 05/04 [facility] 31.0 [facility] HEMATOLOGY WBC 17.8 3.7 - 10.[address] [facility] HEMATOLOGY RBC 4.51 4.70 - 05 [facility] 6.10 [facility] HEMATOLOGY Hgb 14.9 14.0 - 05 [facility] 18.0 [facility] HEMATOLOGY Monocytes # 1.1 0.0 - 0.8 05/ MH [facility] HEMATOLOGY Eosinophils 0.0 0.0 - 0.5 07/14 [facility] # /2015 Hospital HEMATOLOGY Segs-Bands # 15.4 1.5 - 8.1 07/[address] [facility] HEMATOLOGY Lymphocytes 1.4 1.0 - 5.5 07/14 MH [facility] # /2015 Hospital HEMATOLOGY Eosinophils 0.0 0.0 - 4.0 07/[address] [facility] HEMATOLOGY Basophils # 0.0 0.0 - 0.2 07/[address] [facility] HEMATOLOGY Basophils 0.1 0.0 - 1.0 07/[address] [facility] HEMATOLOGY Macrocyte 1+ None Seen 07/14 [facility] *ABN* /2015 [facility] (07/15/15 6:15 PM) HEMATOLOGY Monocytes 6.0 2.0 - 12.0 07/[address] [facility] HEMATOLOGY Plt Morph Normal 07/14 [facility] (07/15/15 6:15 PM) [facility] HEMATOLOGY RBC Morph Normal 07/14 [facility] (07/15/15 6:15 PM) [facility] HEMATOLOGY Lymphocytes 7.7 20.0 - 07/[address] [facility] HEMATOLOGY Segs 86.2 45.0 - 07/[address] [facility] CHEM PANEL eGFR 88 07/13 Result [...] # 0.0 0.0 - 0.2 05/ [facility] HEMATOLOGY Eosinophils 0.0 0.0 - 0.5 05/ [facility] # /2015 Hospital HEMATOLOGY Monocytes # 0.1 0.0 - 0.8 05/ [facility] HEMATOLOGY Monocytes 1.9 2.0 - 12.0 05/ [facility] HEMATOLOGY Segs 92.6 45.0 - 05/03 [facility] 75.0 [facility] HEMATOLOGY Lymphocytes 5.5 20.0 - 05/03 [facility] 40.0 [facility] HEMATOLOGY Basophils 0.0 0.0 - 1.0 05/ [facility] HEMATOLOGY Eosinophils 0.0 0.0 - 4.0 05/ [facility] HEMATOLOGY Segs-Bands # 5.1 1.5 - 8.1 05 Jy[facility] y [facility] HEMATOLOGY Lymphocytes 0.3 1.0 - 5.5 05/ [facility] # /2015 [facility] HEMATOLOGY MCV 100.8 80.0 - 05/03 [facility] 94.0 [facility] HEMATOLOGY Platelet 147 133 - 450 05/ [facility] HEMATOLOGY MPV 8.1 7.4 - 10.4 05/ [facility] HEMATOLOGY RDW 14.9 11.5 - 05/03 [...] 0.50 - 07/13 [facility] Lvl 1.40 /2015 [facility] HEMATOLOGY Platelet 159 133 - 450 [...] 0.3 0.0 - 0.8 05/ [facility] /2015 [facility] HEMATOLOGY Lymphocytes 0.6 1.0 - 5.5 05/ [facility] # /2015 [facility] HEMATOLOGY Eosinophils 0.0 0.0 - 0.5 05/ [facility] # /2016 [facility] HEMATOLOGY Segs 83.4 45.0 - 05/ [facility] 75.0 /2015 [facility] HEMATOLOGY Segs-Bands # 4.8 1.5 - 8.1 05/ Jyoti y [facility] HEMATOLOGY Basophils 0.1 0.0 - 1.0 05/ [facility] HEMATOLOGY Basophils # 0.0 0.0 - [...] Lvl 141 135 - 145 05/[address] [facility] CHEM PANEL AGAP 11.3 10.0 - 05/04 [facility] 20.0 /2015 Hospital HEMATOLOGY Hct 45.4 42.0 - 05/04 [facility] 54.0 /2015 Hospital HEMATOLOGY MCH 33.8 27.0 - 05/[address] [facility] HEMATOLOGY MCV 101.0 80.0 - 05/[address] [facility] HEMATOLOGY MPV 8.7 7.4 - 10.4 05/[address] [facility] HEMATOLOGY MCHC 33.5 32.0 - 05/04 [facility] 36.0 /2015 [facility] HEMATOLOGY Hgb 15.2 14.0 - 05/04 [facility] 18.0 [facility] HEMATOLOGY RBC 4.50 4.70 - 05/04 [facility] 6.10 [facility] HEMATOLOGY WBC 12.5 3.7 - 10.4 05/04 [facility] /2015 [facility] HEMATOLOGY Platelet 153 133 - 450 05/[address] [facility] HEMATOLOGY RDW 14.0 11.5 - 05/04 [facility] 14.5 [facility] ELECTROLYTE AGAP 11.8 10.0 - 05/16 [facility] S 20.0 Hospital ELECTROLYTE Chloride Lvl 107 95 - 109 05/16 Jyoti y S Hospital ELECTROLYTE Sodium Lvl 142 135 - 145 05/16 [facility] S [facility] ELECTROLYTE Potassium 3.8 3.5 - 5.1 05/16 [facility] S Lvl Hospital ELECTROLYTE eGFR 88 05/16 <sup>1</sup>R Jyoti y S [facility] Comment: The eGFR is calculated using [...] values reflect the clinical guidelines
of the [place] [employer]. ELECTROLYTE CO2 27 24 - 32 05/[address] [facility] ELECTROLYTE Calcium Lvl 8.9 8.5 - 10.5 05/[address] [facility] ELECTROLYTE BUN 10 7 - 22 05/[address] [facility] ELECTROLYTE Creatinine 0.9 0.5 - 1.4 05/16 [place] [address] [facility] HEMATOLOGY Monocytes # 0.6 0.0 - 0.8 05/16 [facility] HEMATOLOGY Eosinophils 0.1 0.0 - 0.5 05/16 [facility] # [facility] HEMATOLOGY Basophils # 0.0 0.0 - 0.2 05/16 [facility] HEMATOLOGY Eosinophils 1.6 0.0 - 4.0 05/[address] [facility] HEMATOLOGY Monocytes 7.2 2.0 - 12.0 05/[address] [facility] HEMATOLOGY Segs-Bands # 6.2 1.5 - 8.1 05/16 J[facility] y [facility] HEMATOLOGY Basophils 0.2 0.0 - 1.0 05/16 [facility] HEMATOLOGY Lymphocytes 1.1 1.0 - 5.5 [...] 149 133 - 450 05/16 [facility] /2013 [facility] HEMATOLOGY RDW 13.7 11.5 - 05/16 [facility] 14.5 /2013 Hospital HEMATOLOGY MPV 8.9 7.4 - 10.4 05/[address] [facility] HEMATOLOGY RBC X 10x6 4.17 4.70 - 05/16 [facility] 6.10 [facility] HEMATOLOGY WBC X 10x3 8.0 3.7 - 10.4 05/[address] [facility] HEMATOLOGY Large Plt Slight None Seen 09/12 [facility] *ABN* Hospital (09/12/2012 03:55:40) HEMATOLOGY Tear Cell Slight None Seen 09/12 [facility] *ABN* [facility] (09/12/2012 03:55:40) HEMATOLOGY Elliptocyte Slight None Seen 09/12 [facility] *ABN* [facility] (09/12/2012 03:55:40) HEMATOLOGY Basophils # 0.0 0.0 - 0.2 09/[address] [facility] HEMATOLOGY Macrocyte 1+ None Seen 09/12 [facility] *ABN* [facility] (09/12/2012 03:55:40) HEMATOLOGY Monocytes # 0.5 0.0 - 0.8 09/[address] [facility] HEMATOLOGY Eosinophils 0.0 0.0 - 0.5 09/12 Normal [facility] HEMATOLOGY Lymphocytes 0.8 1.0 - 5.5 09/12 LOW [facility] HEMATOLOGY Lymphocytes 4.6 20.0 - 09/12 LOW [facility] 40.0 [facility] HEMATOLOGY Monocytes 3.1 2.0 - 12.0 09/[address] [facility] HEMATOLOGY Segs-Bands # 15.4 1.5 - 8.1 09/12 HI MH Jyoti y /2012 Hospital HEMATOLOGY Eosinophils 0.0 0.0 - 4.0 / Normal MH [facility] /2012 Hospital HEMATOLOGY Basophils 0.0 0.0 - [...] eGFR 78 09/11 NA <sup>1</sup>R MH [facility] Comment: The eGFR is calculated using [...] values reflect the clinical guidelines
of the [place] [employer]. CHEMISTRY AGAP 14.4 10.0 - [...] 0.0 - 0.8 / Normal [facility] /2012 [facility] HEMATOLOGY Monocytes 3.2 2.0 - 12.0 / Normal [facility] /2012 [facility] HEMATOLOGY Segs-Bands # 17.1 1.5 - 8.1 / HI Jyoti y /2012 [facility] HEMATOLOGY Lymphocytes 0.7 1.0 - 5.5 / LOW MH [facility] # /2013 Hospital HEMATOLOGY Eosinophils 0.0 0.0 - 4.0 07/ Normal [facility] /2012 [facility] HEMATOLOGY Basophils 0.0 0.0 - 1.0 / Normal [facility] /2012 [facility] HEMATOLOGY Segs 92.9 45.0 - 09/11 HI [facility] 75.0 /2012 [facility] HEMATOLOGY Plt Morph Normal 09/11 Normal [facility] (09/11/2012 12:30:00) Ho spital HEMATOLOGY Lymphocytes 3.9 20.0 - 09/11 LOW [facility] 40.0 /2012 [facility] HEMATOLOGY RBC Morph Normal 09/11 [facility]09[facility] 12:30:00[facility] Ho spital Pathology Reports No Data Provided for This Section Diagnostic Reports Report Value Date Source Spine lumbar puncture FLUOROSCOPIC DIRECTED LUMBAR PUNCTURE 06/11 [facility] w fluoro DX HISTORY: Meningitis.. FLUORO TIME: [...] No immediate complication evident. END REPORT SL: [id number] Brain w/wo contrast MRI head without and with contrast. 06/23/[address] [place] [address] MRI Indication: Headache for pas t 2 [...] other etiologies can also be considered. SL: [id number] Chest Pulmonary PROCEDURE: CTA CHEST 06/21/2016 [facility] [...] CHEST, 06/21/2016 2:29 PM CDT : 7 [facility] HISTORY: Dizziness. COMPARISON: None FINDINGS: Heart size and vascularity a re within normal limits. Emphysematous changes with hyperlucency and distortion of pulmonary architecture. The lungs are clear of focal consolidation. No effusion, pneumothorax, or acute osseous abnormality. IMPRESSION: 1. No radiographic evidence of acute cardiopulmo nary process. SL: [id number] Brain wo contrast CT Addendum: Addendum: 06/21/2016 [facility] I reviewed this examination and concur with [...] to chronic small vessel ischemic changes. 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 Wound infection [...] 1view DX One view portable chest: 07/15/2015 [facility] HISTORY: Dyspnea. FINDINGS: No active process in the chest. Exam is stable compared with 07/13/2015. SL: [id number] Chest 1view DX Patient Name: SHIRLENE NICHOLAS. 07/13/2015 [facility] : 1945; Age: 70 years y/o; Male. MR: [id number]. Ordering Physician: Maryuri Mariscal MD. PORTABLE CHEST [...] without contrast with high-res olution images. 05/07/2015 [facility] INDICATION: Shortness of thony ath with dyspnea [...] right kidney is partially visualized in the [id number]. 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 IMPRESSION: 1. Moderate dependent atelectasis in the lower l obes. 2. Mild emphysematous changes. 3. Atherosclerosis. 4. Partial visualization of right renal cyst. SL: [id number] Chest 1view DX Chest one view 05/04/2015 [facility] HISTORY: Short of breath COMPARISON: 04/25/2014 Lungs [...] 1view DX One view portable chest: 04/25/2014 [facility] HISTORY: Asthma exacerbation. FINDINGS: Lungs are hyperinf lated but clear. The heart and mediastinal contours stable from 05/16/2013. No pleural fluid or pneumothorax. IMPRESSION: No acute finding. SL: 200 Shoulder wo contrast MRI LEFT SHOULDER WITHOUT CONTRAST: 014 [facility] MRI HISTORY: Left shoulder pain. COMPARISON: None. [...] cuff tear. 2. 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 SLAP [...] for fracture. Bobby Sheldon M.D. 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: Meeta TORRES Chest 2 views 2 VIEW [...] 06/05/2017 [facility] BMI Calculated 21.25 06/05/2017 [facility] Weight 71.08 06/05/2017 [facility] Systolic (mm Hg) 116 06/05/2017 [facility] Diastolic (mm Hg) 66 06/05/2017 [facility] Weight 68.693 04/24/2017 [facility] BMI Calculated 20.54 04/24/2017 [facility] Height 182.88 cm 04/24/2017 [facility] Heart Rate 92 04/24/2017 [facility] Systolic (mm Hg) 146 04/24/2017 [facility] Diastolic (mm Hg) 89 04/24/2017 [facility] Heart Rate 81 06/28/2016 [facility] Respitory [facility] 20 [facility]28[facility] Systolic (mm Hg) 136 06/28/2016 [facility] Diastolic (mm Hg) 76 06/28/2016 [facility] spital Temperature Oral (F) 98.5 F 06/28/2016 [facility] Systolic (mm Hg) 134 06/28/2016 [facility] Diastolic (mm Hg) 75 06/28/2016 [facility] Respitory Rate 20 06/28/2016 [facility] Heart Rate 95 06/28/2016 [facility] Temperature Oral (F) 98.1 F 06/28/2016 [facility] Temperature Oral (F) 97.5 F 06/28/2016 [facility] Heart Rate 92 06/28/2016 [facility] Systolic (mm Hg) 153 [...] Hos pital Diastolic (mm Hg) 69 05/18/2016 [facility] spital Heart Rate 70 05/18/2016 [facility] Respitory Rate 18 05/18/2016 [facility] vasquez Temperature Oral (F) 98.5 F 05/18/2016 [facility] Temperature Oral (F) 98.4 F 05/18/2016 [facility] Heart Rate 61 05/18/2016 [facility] Systolic (mm Hg) 154 05/18/2016 [facility] Diastolic (mm Hg) 89 05/18/2016 [facility] Respitory Rate 17 05/18/2016 [facility] vasquez Temperature Oral (F) 98.2 F 05/18/2016 [facility] Respitory Rate 18 05/18/2016 [facility] Heart Rate 51 05/18/2016 [facility] Systolic (mm Hg) 163 05/18/2016 [...] [facility] Heart Rate 65 07/20/2015 [facility] Temperature Oral (F) 98.4 F 07/20/2015 [facility] Temperature Oral (F) 98.3 F 07/20/2015 [facility] Respitory Rate 18 07/20/2015 [facility] [...] spital Temperature Oral (F) 97.4 F 07/20/2015 [facility] Height 203.2 cm 07/16/2015 [facility] BMI Calculated 22.2 07/15/2015 [facility] Height 175.26 cm 07/15/2015 [facility] Weight 68.182 07/15/2015 [facility] Respitory Rate 18 07/14/2015 [facility] Heart Rate 78 07/14/2015 [facility] Systolic (mm Hg) 110 07/14/2015 [facility] Diastolic (mm Hg) 54 07/14/2015 [facility] Temperature Oral (F) 98.6 F 07/14/2015 [facility] Respitory Rate 18 07/14/2015 [facility] Systolic (mm Hg) 136 07/14/2015 [facility] Diastolic (mm Hg) 76 07/14/2015 [facility] sp[facility] Heart Rate 61 07/14/2015 [facility] Temperature Oral (F) 98 F 07/14/2015 [facility] Temperature Oral (F) 98.2 F 07/14/2015 [facility] Heart Rate 83 07/14/2015 [facility] Systolic (mm Hg) 134 07/14/2015 [facility] Diastolic (mm Hg) 75 07/14/2015 [facility] Respitory Rate 18 07/14/2015 [facility] Height 182.88 cm 07/14/2015 [facility] Height 182.88 cm 07/14/2015 [facility] BMI Calculated 21.51 07/13/2015 [facility] Weight 71.932 07/13/2015 [facility] Height 182.88 cm 07/13/2015 [facility] Heart Rate 78 05/07/2015 [facility] Temperature Oral (F) 98 F 05/07/2015 [facility] Systolic (mm Hg) 132 05/07/2015 [facility] Diastolic (mm Hg) 78 05/07/2015 [facility] spital Respitory Rate 18 05/07/2015 [facility] vasquez Temperature Oral (F) 98.1 F 05/07/2015 [facility] Respitory Rate 18 05/07/2015 [facility] Systolic (mm Hg) 125 05/07/2015 [facility] Diastolic (mm Hg) 75 05/07/2015 [facility] Heart Rate 74 05/07/2015 [facility] Heart Rate 75 05/07/2015 [facility] Systolic (mm Hg) 134 05/07/2015 [facility] Diastolic (mm Hg) 69 05/07/2015 [facility] Respitory Rate 19 05/07/2015 [facility] Temperature Oral (F) 97.9 F 05/07/2015 [facility] Weight 71.023 05/04/2015 [facility] BMI [...] p Temperature Oral (F) 98.1 F 05/18/2013 [facility] Respitory Rate 18 05/18/2013 [facility] Heart Rate 85 05/18/2013 [facility] Systolic (mm Hg) 116 05/18/2013 [facility] Diastolic (mm Hg) 62 05/18/2013 [facility] Systolic (mm Hg) 118 05/18/2013 [facility] Diastolic (mm Hg) 60 05/18/2013 [facility] Temperature Oral (F) 96.8 F 05/18/2013 [facility] Respitory Rate 18 05/18/2013 [facility] 82 05/18/2013 [facility] Diastolic (mm Hg) 59 05/18/2013 [facility] Temperature Oral (F) 96.5 F 05/18/2013 [facility] Respitory Rate 18 05/18/2013 [facility] Hospi vasquez [...] spital Temperature Oral (F) 96.9 F 09/12/2012 [facility] Heart Rate 61 09/12/2012 [facility] Diastolic (mm Hg) 66 09/12/2012 [facility] Systolic (mm Hg) 127 09/12/2012 [facility] Respitory Rate 18 09/12/2012 [facility] Heart Rate 91 09/12/2012 [facility] Temperature Oral (F) 96.3 F 09/12/2012 [facility] Systolic (mm Hg) 129 09/12/2012 [facility] Diastolic (mm Hg) 63 09/12/2012 [facility] Heart Rate 57 09/12/2012 [facility] Respitory Rate 18 09/12/2012 [facility] vasqeuz Temperature Oral (F) 96.9 F 09/12/2012 [facility] Weight 80.028 09/11/2012 [facility] Height 182.88 cm 09/11/2012 [facility] Encounters Location Location Encounter Encounter Reason Attending ADM DC Stat us Source Details Type Number For Provider Date Date Visit [facility] Inpatient [id number] JOSÉ MIGUEL HINOJOSA 09/11 09/12 Disch arg [facility] ed [facility] Inpatient [id number] _MAPID: José Miguel Hinojosa 05/17 05/18 [facility] [place] 5 [id number] ENCNTRR /[address] [facility] [id number] Hospital 122 [facility] Outpt Diag [id number] Sriram Royal 10/09 10/10 [facility] 0 [facility] Imaging [facility] Office [id number] Ifeanyi11/26 [id number] DeFriece, Philip Reyna MD Group [facility] Outpt Diag [id number] Ifeanyi11/27 M [facility] Outpatient Services 1 DeFriece /2013 Ka ty Imaging [facility] Lab Report [id number] Ifeanyi11/28 Damien 24070 DeFriece, Philip Reyna MD Group Group - [facility] Office [id number] Ifeanyi12/03 [facility] Visit 08026 DeFriece, Philip Brown Group [facility] Office [id number] Ifeanyi02/18 [facility] 0[facility] De[facility]riece, /2013 Philip Reyna MD Group Group [facility] Office [id number] Ifeanyi 02/20 02/20 Damien Visit [id number] DeFriece, Philip Reyna MD Group Group [facility] Office [id number] Ifeanyi 03/14 03/14 Damien Visit [id number] DeFriece, Philip Reyna MD Group Group [facility] Office [id number] Ifeanyi 07/23 07/23 Damien Visit [id number] DeFriece, Philip Reyna MD Group Group [facility] Outpt Diag [id number] Ifeanyi 07/28 07/29 M H [facility] Outpatient Services 2 DeFriece /2014 [facility] Outpt Diag [id number] Ifeanyi 07/31 08/01 M H [facility] Outpatient Services 3 DeFriece /2014 [facility] Outpatient [id number] IFEANYI 04/17 Active [facility] 0 [facility] Inpatient [id number] José Miguel Hinojosa 05/06 05/07 [facility] OBS [id number] Alicia 07/12 07/13 [facility]a Quezada Observation 4 Hosp ital [facility] Inpatient [id number] Alicia 07/14 07/19 [facility] Quezada 5 [facility] Outpatient [id number] AXEL 03/03 Active [facility] 1 [facility] Outpatient [id number] AXEL 03/22 Active [facility] 2 [facility] Outpatient [id number] AXEL 05/11 Active [facility] 3 [facility] Outpatient [id number] AXEL 05/17 Active M [facility] 4 [facility] Inpatient [id number] Crow Madni 05/17 05/19 [facility]a Quezada [facility] Wound Care [id number] Ebba Ning 05/30 06/29 [facility]a Quezada 0 Tsinopo Reha b [facility] Inpatient [id number] Kohler 06/21 06/29 [facility] [place] 9 Ishfaq [facility] Outpatient [id number] AXEL 07/11 [facility] 5 [facility] Outpatient [id number] AXEL 08/04 Active [facility] 7 [facility] Outpatient [id number] AXEL 08/09 Active [facility] 6 [facility] Outpatient [id number] NURSE VISIT 08/11 [facility] Outpatient [id number] AXEL 08/17 [facility] 9 [facility] Phone [id number] 04/12 04/14 [facility] Message Neuro [facility] Outpatient [id number] Ifeanyi 04/24 04/25 [facility] 3 DeFri Neuro [facility] Outpatient [id number] Roddy Wyatt 06/05 06/06 [facility] Neurology Neuro [place] Ambulatory [id number] Roddy Wyatt 11/29 11/29 [facility] Neurology Pre-Reg Neuro [place] Procedures Procedure Code Date Perfomer Comments Source smoking/tobacco 14 11/26/2013 DONE Medica l cessation, Group patient education and counseling Appendectomy; [id number] [facility] Neuro,[facility] ORIF - Open [id number] [facility] reduction and Neuro,[facility] internal fixation Rehab,M OPID of fracture [place],[facility] ORIF - Open [id number] [facility] internal fixation of fracture Assessment and Plan Assessment and Plan Date Source Extracted from:Title: Consult Note 06/29/2016 [facility] Author: Dominique Souza MD Date: 06/24/16 Assessment/Plan [...] replacement. Extracted from:Title: Progress Note * 07/20/2015 [facility] Author: Alicia Payan MD Date: 07/19/15 Impression and Plan 1. Acute exacerbation of chronic obstru ctive pulmonary disease with acute worsening secondary to smoking and tobacco abuse disorder. continue with nebulizations, IV antibiotics, and IV steroids. Cont inue with incentive spirometry and aggre ssive pulmonary toilet. The patient's box toe cutter, Dr. Hinojosa, is following for further evaluation [...] entered on: 06/05/17 Social History TypeResponse 05/18/2016 [facility] Substance Abuse Use: None. IV drug [...]
[2019-11-19] MEDS ORDERED: ACETAMINOPHEN 500 MG TAB PO PRN (21:05)
--- NOTE | 2019-11-19 21:24 | P.HP ---
Certification for Inpatient With expected LOS: >2 Midnights Patient will require the following post-hospital care: None Practitioner: I am a practitioner with admitting privileges, knowledge of patient current condition, hospital course, and medical plan of care. Services: Services provided to patient in accordance with Admission requirements found in Title 42 Section 412.3 of the Code of Federal Regulations Patient History Date of Service: 11/19/19 Reason for admission: Dehydration/failure to thrive/syncope History of Present Illness: 74-year-old male with a past medical history of COPD not on home oxygen, PAD with stents in 2013, meningitis June 2016, chronic diarrhea, essential tremors, current smoker approximately half a pack-a-day and drinks 2 beers a day, who was seen by Dr. Martinez earlier today and was sent as a direct admit secondary to worsening syncope/diarrhea/dehydration and failure to thrive. Patient states that he was treated for thrush approximately 3 months ago. States that since then he has not been able to eat well or drink fluids. States that he has probably lost 30 lb over the last 3 months. On admission patient is alert and oriented x3 in no distress. He states that he cannot swallow well. Appears dehydrated. Patient is pleasant and cooperative though. Dr. Martinez spoke with his GI doctor who will see patient further wor kup as an inpatient. Also she consulted Dr. Manrique due to worsening muscle weakness. Patient will be admitted and further evaluated. Allergies cephalexin [From Keflex] Allergy (Intermediate, Verified 04/25/19 22:05) Unknown Home Medications: Albuterol Sulfate [Ventolin Hfa] 1 puff IN BIDP PRN 07/18/18 Primidone [Mysoline *] 6 tab PO BID 07/18/18 Tiotropium Br/Olodaterol HCl [Stiolto Respimat Inhal [place]] 1 puff IN DAILY 07/18/18 Cyanocobalamin (Vitamin B-12) [Vitamin B12] 500 mcg PO DAILY 04/26/19 Guaifenesin/Dextromethorphan [Mucinex Dm ER 600-30 mg Tablet] 1 tab PO DAILYPRN PRN 04/26/19 Lipase/Protease/Amylase [Alden [place] 36,000 Units Capsule] 2 tab PO TIDWM 04/26/19 Sertraline [Zoloft*] 1 tab PO DAILY 04/26/19 predniSONE [Prednisone] 60 mg PO DAILY 04/26/19 Ascorbic Acid [Vitamin C] 1 tab PO DAILY 11/19/19 Furosemide 60 mg PO DAILY 11/19/19 Loperamide [Imodium*] 1 cap PO SEECOM 11/19/19 Mirtazapine [Remeron*] 1 tab PO BEDTIME 11/19/19 Pantoprazole [Protonix Tab*] 1 tab PO DAILY 11/19/19 Primidone [Mysoline] 50 mg PO DAILY 11/19/19 Vitamin E 500 unit PO DAILY 11/19/19 - Past Medical/Surgical History Has patient received pneumonia vaccine in the past: Yes Diabetic: No -: Peripheral arterial disease status post stent 2013 -: COPD -: Essential tremor -: Peripheral arterial disease -: Chronic Diarrhea -: Tobacco abuse -: History of meningitis, June 2016 -: pneumonia -: Erysipelas -: Appendectomy -: Right leg surgery -: Peripheral arterial disease with stent -: Eye surgery cataract sx on both eyes Psychosocial/ Personal History: The patient is . He has 1 child. 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 - Family History Father -: Lung disease Notes: COPD Mother -: Heart disease - Social History Smoking Status: Current every day smoker Alcohol use: Yes CD- Drugs: No Caffeine use: Yes Place of Residence: Home Review of Systems General: As per HPI Eyes: Unremarkable ENT: Other (Difficulty swallowing) Respiratory: Unremarkable Cardiovascular: Unremarkable Gastrointestinal: Diarrhea (Chronic) Genitourinary: Unremarkable Musculoskeletal: As per HPI Integumentary: Unremarkable Neurological: Weakness Lymphatics: Unremarkable Physical Examination - Vital Signs Temperature: 97.8 F Blood Pressure: 177/74 Pulse: 75 Respirations: 18 Pulse Ox (%): 94 - Physical Exam General: Alert, In no apparent distress, Oriented x3 HEENT: Atraumatic, Normocephalic, PERRLA, Mucous membr. moist/pink Neck: Supple, JVD not distended, Other (Trachea midline) Respiratory: Clear to auscultation bilaterally, Normal air movement Cardiovascular: No edema, Normal pulses, Regular rate/rhythm Capillary refill: <2 Seconds Gastrointestinal: Normal bowel sounds, Soft and benign Musculoskeletal: No clubbing, No swelling, No contractures, No erythema, Other (Generalized wasting of muscle) Integumentary: No rashes, No significant lesion, No tenderness/swelling Neurological: Normal gait, Normal speech, Abnormal strength (Generalize weakness) Assessment and Plan - Plan Impression: Syncope: Dehydration complicated by a history of chronic diarrhea: Failure to thrive with unintentional weight loss of 30 lb over 3 months: Tobacco abuse: Plan: Syncope: Etiology unclear. Patient has had poor nutritional intake over the past 3 months, presents with dehydration and has a history of chronic diarrhea. Denies any lightheadedness, chest pain, dyspnea on exertion. Has a history of peripheral vascular disease with stent placements in 2013. States he has had multiple falls due to lower extremity weakness. Dehydration complicated by a history of chronic diarrhea: Patient states that he has a history of chronic diarrhea of uncertain etiology. GI consulted . Will continue IV fluids, telemetry. Will order full liquid diet. Patient states he can swallow some liquids but has to go slow. Failure to thrive with unintentional weight loss of 30 lb over 3 months: Patient stated he had thrush approximately 1 month ago. States he has lost over 30 lb in the last 3 months. Not able to tolerate regular p.o. diet. States he feels like he cannot swallow. Tobacco abuse: Patient smokes a half a pack of cigarettes a day. Discharge Plan: Home Plan to discharge in: Greater than 2 days - Advance Directives Does patient have a Living Will: Yes Does patient have a Durable POA for Healthcare: Yes - Code Status/Comfort Care Code Status Assessed: Yes Time Spent Managing Pts Care (In Minutes): 55
[2019-11-19] MEDS: NA CHLORIDE 0.9% 1,000 ML IV SCH (21:50)
[2019-11-19] MEDS ORDERED: HEPARIN 5000 UNIT/ML 1 ML VIAL SQ SCH (22:00)
[2019-11-20] MEDS: HEPARIN 5000 UNIT/ML 1 ML VIAL SQ SCH ×3 (00:13→17:18)
[2019-11-20 02:00] VITALS: BMI 16.0
[2019-11-20 06:46] LABS: Absolute Lymphocytes (CBC) 1.3 K/uL (0.7-4.9); Basophils % 0.6 % (0-1.3); Hematocrit 43.6 % (39.6-49.0); Lymphocytes % 17.6 % (15.3-44.8); MPV 9.1 fL (7.6-11.3); RBC Red Blood Cell Count 4.16 M/uL (4.33-5.43)
[2019-11-20 06:51] LABS: Protime INR 0.97
[2019-11-20 07:05] LABS: ALT/SGPT 20 U/L (12-78); AST/SGOT 26 U/L (15-37); Albumin 2.3 g/dL (3.4-5.0); Alkaline Phosphatase 74 U/L (45-117); BUN Blood Urea Nitrogen 4 mg/dL (7-18); Bicarbonate 30 mmol/L (21-32); Bilirubin Total 0.7 mg/dL (0.2-1.0); Glucose Level 74 mg/dL (74-106); HDL Cholesterol 90 mg/dL (40-60); LDL Cholesterol, Calculated 47 (<130); Magnesium 1.8 mg/dL (1.8-2.4); Potassium 3.7 mmol/L (3.5-5.1); Protein, Total 5.9 g/dL (6.4-8.2); Sodium Level 136 mmol/L (136-145)
[2019-11-20] MEDS ORDERED: MAGNESIUM SULFATE 1 gm IVPB 1 GM/100 ML BAG IV ONE (09:00)
[2019-11-20] MEDS ORDERED: POTASSIUM 25 MEQ EFFERV TAB PO ONE (09:00)
[2019-11-20] MEDS: NA CHLORIDE 0.9% 1,000 ML IV SCH ×3 (09:11→23:16)
[2019-11-20] MEDS ORDERED: KCL 20 MEQ/100 mL IVPB 20 MEQ/100 ML BAG IV SCH (10:00)
--- NOTE | 2019-11-20 13:21 | RAD REPORT ---
EXAM DESCRIPTION: RAD - Barium Swallow Modified - 11/20/2019 1:06 pm CLINICAL HISTORY: dysphagia Difficulty swelling, aspiration COMPARISON: Abdomen Pelvis W Contrast dated 04/25/2019 TECHNIQUE: The patient was given liquid, semi-solid and solid forms of barium. Lateral view fluorosc opic imaging was performed in conjunction with speech pathology service. FINDINGS: Laryngeal penetration cleared with thin on cue, hard cough and consecutive swallow. Pharyngeal penetration, vallecular. Moderate with all consistencies. Severe with barium tablet, could not pass from oropharynx to UES. Osteophytes C2-C4. Prominent cricopharyngeus C5-C6. Pain with pudding and cracker. Total fluoroscopy time: 5 minutes and 32 seconds
[2019-11-20] MEDS: ALBUTEROL 2.5 MG/3 ML NEB SOL NEB PRN (16:35)
--- NOTE | 2019-11-20 21:30 | CON ---
Reason For Consultation: Consultation called because of progressive muscle weakness and falling. History Of Present Illness: Mr. Gooden is a 74-year-old right-handed patient, whom I hav e seen in the clinic for more than 4 years for progressive weakness with gait instability and falls a nd a history of 60 years of drinking that much alcohol. He has had a progressive loss of balance and muscle weakness. He has poor nutrition secondary to drinking. He also smokes a pack of cigarettes daily. He was seen and treated in the clinic for benign essential tremor, which otherwise improved s lightly with primidone 50 mg twice daily. The patient also uses alcohol to control his tremors. He is now admitted to [facility] on November 19, 2019 with dehydration and failure to thrive, a nd syncopal episodes. He reports becoming more weak over the last few months. He has had an episode of oral thrush and has again not been able to swallow where he has also lost about 30 pounds in the 3 months. He has a swallow study done today showed significant difficulty with multiple consistencie s where there was laryngeal penetration, although it cleared with thin liquids and hard cough. There was severe difficulty swallowing the barium tablet and could not pass the oropharynx. There was als o pain when trying to swallow pudding and cracker. His workup thus far for malignancy has been negat sylvia. He is seen by Dr. Martinez in the Oncology Department. He is also seen by Dr. Ester Mendiola fo r his dysphagia. Past Medical History: COPD, essential tremor, peripheral artery disease, chronic diarrhea, alcohol a nd tobacco abuse. He also notes a history of meningitis in 2017 after which he did become even weake r. Past Surgical History: Appendectomy, right leg surgery, peripheral arterial disease stents, and jeffrey ract surgery in both eyes. Social History: The patient is . 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 He drinks at least 24 ounces of beer at night and perhaps more. At one point. He admitt ed to it and then suddenly said he does not drink anymore, but at one point admitted to drinking at [place] years every night and smoking regularly. He denies illegal drugs, but does drink caffeinated beverages. Family History: Positive for lung disease and COPD in father and heart disease in mother. Medications: At home; Ventolin 1 puff twice daily, primidone 50 mg twice daily, vitamin B12 500 mcg daily, Mucinex daily, Zoloft daily, prednisone 60 mg daily, ascorbic acid 500 mg daily, furosemide 60 mg daily, Imodium as needed, Remeron daily, Protonix daily, and vitamin E 500 international units da faby. Review of Systems: He reports progressive weakness, diarrhea, difficulty swallowing, and significant weight loss. Also, loss of balance with incoordination and again severe dysarthria. Physical Examination: Vital Signs: Blood pressure 127-162/67-72, pulse ranged from 70-80, respiratory rate from 14-18, tem perature 97.5, oxygen saturation 97% on room air. Weight 118 pounds with 6 feet with BMI of 16.0. General: Mr. Gooden is resting in bed. He appears disheveled and unkempt and older than stated ag e. HEENT: He is normocephalic, atraumatic. His sclerae are anicteric. Oropharynx is moist. He does a ppear somewhat emaciated. Abdomen: Soft. Extremities: Some bruising in his lower and upper extremities. Neurological: He is alert and oriented to situation, place, and person. He does follow commands mindi ropriately. Cranial nerves show mild facial muscle weakness. He does have some difficulty with labi al, lingual and guttural sounds and some atrophy of his tongue noted. No clear fasciculations apprec iated. He has poor neck flexion, strength and weakness in the shoulder elevation bilaterally. Motor examination, he has a diffuse more proximal than distal weakness in the upper and lower extremities, rated at least 4/5. He is able to lift and resist against gravity at hip flexion and knee extension and flexion bilaterally and he is stronger in the foot in terms of plantar dorsiflexion. In the upp er extremities proximally, he is slightly weaker than distally in the deltoids and biceps compared to the wrist extension and flexion where he is more 4/5 proximally and distally 4+ to 5-. He does have intact coordination in terms of [id number]-dw-ugki and dhhzzy-gt-hzii, although there is mild loss of chec k that is axial, inability to hold the arms unsteady when held out in front, but has had good finger- to-nose. He has absent reflexes in the upper and lower extremities. He actually will be ambulated t his with physical therapy. Laboratory Studies: Complete blood count with differential is essentially unremarkable, except eleva allyssa MCV of 104, RBCs low at 4.16. Coagulation panel is normal. Chemistries show creatinine low at 0 .53, calcium low at 8.0. AST, ALT, and alkaline phosphatase are normal despite his long history of a lcohol use. LDL cholesterol is 47, HDL cholesterol is 90. TSH and free T4 are normal. Procalcitoni n is less than 0.05. C-reactive protein elevated at 21.7. Assessment: Mr. Gooden is a 74-year-old patient with possible multiple etiologies for his diffuse weakness. His pattern is more consistent with a myopathy, perhaps alcohol-related myopathy, although he has some evidence of a neuropathy. He does have some cerebellar dysfunction probably related to chronic alcohol use in terms of loss of check and that may be partly responsible for his loss of alina nce. He is a heavy chronic alcohol user; however, the MRI of the brain does not show evidence of yoel tral pontine myelinolysis or any significant ischemic event, but [id number]-[id number] small vessel diffus e ischemic disease. He has no evidence of acute stroke. Plan: 1.Possible EMG nerve conduction study of the upper and lower extremities to help define the possibil ity of a myopathy. Other possibility is steroid related myopathy where he may have evidence in the p roximal lower extremities versus distal. 2.He should be on thiamine 100 mg twice daily and multivitamin along with folic acid for possible al cohol withdrawal. He does not have evidence of a Wernicke-Korsakoff syndrome at this time. 3.He may benefit from physical and occupational therapy along with speech therapy to help with his b alance, gait, coordination and activities of daily living and speech and swallowing. He may require a PEG tube placement short-term if he is unable to maintain his weight. 4.He should also continue with workup for possible malignancy. 5.He does not have evidence of probable pontocerebellar degeneration on the MRI or on clinical examination. He will be followed while in hospital. YI/SURYA Voice ID: [id number] Report ID: [id number]
[2019-11-21] MEDS: HEPARIN 5000 UNIT/ML 1 ML VIAL SQ SCH ×3 (00:55→17:05)
[2019-11-21] MEDS ORDERED: FENTANYL CITR 100 MCG/2 ML IV ONE (02:04)
[2019-11-21] MEDS: NA CHLORIDE 0.9% 1,000 ML IV SCH ×5 (04:00→23:53)
[2019-11-21 04:58] LABS: BUN Blood Urea Nitrogen 4 mg/dL (7-18); Bicarbonate 26 mmol/L (21-32); Glucose Level 67 mg/dL (74-106); Magnesium 1.9 mg/dL (1.8-2.4); Potassium 4.2 mmol/L (3.5-5.1); Sodium Level 139 mmol/L (136-145)
[2019-11-21] MEDS ORDERED: NA CHLORIDE 0.9% 250 ML IV ONE (06:53)
--- NOTE | 2019-11-21 09:05 | ECHO ---
HEIGHT: 6 ft 0 in WEIGHT: 118 lb 0 oz DATE OF STUDY: 11/20/[address]: Miky Quintero 2-DIMENSIONAL: YES M.MODE: YES DOPPLER: YES COLOR FLOW: YES TDS: YES PORTABLE: NO DEFINITY: NO BUBBLE STUDY: NO DIAGNOSIS: WEAKNESS, CONGESTIVE HEART FAILURE CARDIAC HISTORY: CATHERIZATION: NO SURGERY: NO PROSTHETIC VALVE: NO PACEMAKER: NO MEASUREMENTS (cm) DIASTOLIC (NORMALS) SYSTOLIC (NORMALS) IVSd 0.9 (0.6-1.2) LA Diam (1.9-4.0) LVEF 51% LVIDd 3.9 (3.5-5.7) LVIDs 2.9 (2.0-3.5) %FS % LVPWd 0.9 (0.6-1.2) Ao Diam 2.7 (2.0-3.7) 2 DIMENSIONAL ASSESSMENT: RIGHT ATRIUM: NORMAL LEFT ATRIUM: NORMAL RIGHT VENTRICLE: NORMAL LEFT VENTRICLE: NORMAL TRICUSPID VALVE: NORMAL MITRAL VALVE: MITRAL ANNULAR CALCIFICATION PULMONIC VALVE: NORMAL AORTIC VALVE: SCLEROSIS PERICARDIAL EFFUSION: NONE AORTIC ROOT: NORMAL LEFT VENTRICULAR WALL MOTION: NORMAL LEFT VENTRICULAR EJECTION FRACTION. DECREASED LEFT VENTRICULAR COMPLIANCE. DOPPLER/COLOR FLOW: NORMAL COMMENTS: DIASTOLIC DYSFUNCTION. NORMAL LEFT VENTRICULAR EJECTION FRACTION. MITRAL ANNULAR CALCIFICATION. AORTIC SCLEROSIS WITH NO STENOSIS. TECHNOLOGIST: Yarely KAN
[2019-11-21 10:27] LABS: Urine Appearance CLEAR; Urine Bilirubin NEGATIVE (NEG); Urine Blood NEGATIVE (NEG); Urine Color YELLOW; Urine Glucose NEGATIVE (NEG); Urine Protein NEGATIVE (NEG); Urine Specific Gravity 1.015 (1.005-1.030); Urine Urobilinogen 0.2 mg/dL (0.2-1.0)
[2019-11-21 10:30] LABS: Urine Microscopic Reflex NO UMIC
[2019-11-21 12:49] LABS: C.diff Antigen/Toxin Ag neg : Tox neg (NEG : NEG)
[2019-11-21] MEDS: ENSURE HIGH PROTEIN 237 ML CAN PO SCH (21:51)
[2019-11-22] MEDS: ALBUTEROL 2.5 MG/3 ML NEB SOL NEB PRN ×2 (05:35→20:27)
[2019-11-22] MEDS: NA CHLORIDE 0.9% 1,000 ML IV SCH ×3 (05:56→16:53)
[2019-11-22] MEDS: ENSURE HIGH PROTEIN 237 ML CAN PO SCH ×3 (08:26→22:22)
[2019-11-22] MEDS ORDERED: BOTU TOX TYPE A 100 UNIT/VIAL ID ONE (13:35)
[2019-11-22] MEDS ORDERED: NS 0.9% VIAL 0 ML ONE (13:38)
[2019-11-22] MEDS ORDERED: LIDOCAINE 1% W/EPI 1:100,000 MDV 20 ML VIAL ONE (13:38)
[2019-11-22] MEDS ORDERED: EPINEPHRINE/PF 1 MG/ML AMP ONE (13:38)
[2019-11-22] MEDS ORDERED: propofoL 200 MG/20 ML VIAL IV ONE (13:45)
[2019-11-22] MEDS ORDERED: NS 0.9% VIAL 10 ML ONE ×3 (13:45→14:26)
[2019-11-22] MEDS ORDERED: LIDOCAINE 1% MPF 5 ML VIAL ONE (13:46)
[2019-11-22] MEDS ORDERED: MIDAZOLAM HCL 2 MG/2 ML INJ ONE (13:46)
[2019-11-22] MEDS ORDERED: ROCURONIUM 50 MG/5 ML VIAL IV ONE (13:46)
[2019-11-22] MEDS ORDERED: FENTANYL CITR 100 MCG/2 ML ONE (13:48)
[2019-11-22] MEDS ORDERED: LIDOCAINE JELLY 2%- 5 ML TUBE ONE (13:53)
[2019-11-22] MEDS ORDERED: dexAMETHasone 10 MG/ML VIAL ONE ×2 (14:07→14:19)
[2019-11-22] MEDS ORDERED: KETOROLAC 30 MG/ML INJ ONE ×2 (14:07→14:19)
[2019-11-22] MEDS ORDERED: EPHEDRINE SULF 50 MG/ML VIAL ONE (14:12)
[2019-11-22] MEDS ORDERED: ONDANSETRON 4 MG/2 ML VIAL ONE (14:12)
[2019-11-22] MEDS ORDERED: Ringers Lactate 1,000 ML IV ONE (14:19)
--- NOTE | 2019-11-22 14:21 | P.BOP ---
Preoperative diagnosis: dysphagia, odynophagia, CP spasm Postoperative diagnosis: same, abnormal hypopharynx Primary procedure: DL with bx, Esophagoscopy with Botox injection to CP (21u) Labelling Machine Operator: NONE,NONE Estimated blood loss: <5ml Specimen: posterior pharyngeal wall, right Findings: thickened, irritated posterior pharynx, possible yeast/fungal infection Anesthesia: General Complications: None Implants: none Fluids & blood products: Crystalloid 500ml Transferred to: Recovery Room Condition: Fair
[2019-11-22] MEDS ORDERED: Phenylephrine HCl 10 MG/ML 1 ML VIAL ONE (14:26)
[2019-11-22] MEDS ORDERED: GLYCOPYRROLATE 0.2 MG/ML SYR ONE (14:28)
[2019-11-22] MEDS ORDERED: NEOSTIGMINE 1 MG/ML -5 ML ONE (14:30)
--- NOTE | 2019-11-22 15:52 | PN ---
Subjective: Mr. Gooden is resting in bed. He is working with the physical therapist. He is about to have a Botox injection actually by Dr. Rivera in the cricopharyngeal muscles to help assist with his dysphagia. He reports no new complaints. Continues to report significant difficulty with his ba panda, gait, coordination, and actually was unable to stand and ambulate with the help of the physica l therapist because of very very poor gait. His speech has not changed and his swallowing has not ch anged. He has no additional complaints. Objective: Vital Signs: Blood pressure 126/47, pulse is 59 to 89, respiratory rate 14 to 20, temper ature 98.3, oxygen saturation 100% on room air. General: Mr. Gooden does have some difficulty getting his articulation out but has fairly good lab ial, lingual and guttural sounds. Some mild tongue atrophy noted. He does have more proximal and di stal lower more than upper extremity symmetrical weakness noted. He does have stocking-glove loss to light touch temperature. Reflexes are depressed in the upper and lower extremities. He is able to show good coordination for appendicular activity such as [id number] and [id number]. Laboratory Studies: His creatinine yesterday 0.46. Magnesium normal at 1.9. Assessment: Mr. Gooden is a 74-year-old patient with weakness in terms of actually not necessarily significant weakness but still proximal more than distal weakness and normal upper extremity, weakne ss along with incoordination, gait difficulties, and some dysphagia and dysarthria. All of those are of unclear etiology. Still there should be considered a perhaps cerebellar paraneoplastic syndrome, which may produce ataxia of gait. 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 He has no evidence of olivopontocereb ellar degeneration or stroke at his brain imaging. Plan: Continue as with Dr. Rivera's plan for cricopharyngeal Botox injections. Also given his signi ficant weight loss over several months, he probably will benefit from PEG tube placement, which appea rs to be in the works and continue with speech therapy to help improve his swallowing. He should continue with physical therapy, bed mobility exercises, range of motion exercises and work on his coordination, balance, and gait. He may even require muscle biopsy after discharge along with EMG nerve conduction study and lumbar puncture for possible paraneoplastic syndrome workup. YI/MODL Voice ID: [id number] Report ID: [id number]
[2019-11-22] MEDS ORDERED: FLUCONAZOLE 200mg IVPB 200 MG/100 ML BAG IV ONE (17:00)
--- NOTE | 2019-11-22 19:52 | OP ---
Date of Procedure: 11/22/2019 Surgeon: Ester Mendiola MD Clerk Cashier: None. Preoperative Diagnoses: Odynophagia, dysphagia, cricopharyngeal muscle spasm, and excessive weight l oss. Postoperative Diagnoses: Odynophagia, dysphagia, cricopharyngeal muscle spasm, and excessive weight loss with findings suspicious for hypopharyngeal thrush. Procedures: 1.Direct operative laryngoscopy with telescope and biopsy. 2.Esophagoscopy, rigid, with injection of botulinum toxin to the cricopharyngeus muscle. 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 He was initially treated with flynn trimazole lozenges without improvement. He was subsequently treated with 7 days of oral fluconazole with significant improvement in the appearance of his oropharynx. He underwent a flexible laryngosco py in the office in early October with no significant finding suggestive of hypopharyngeal malignancy, tumor, or infections. The patient was recommended to have a modified barium swallow. Over the ensu ing 4 weeks, he had progressive increase in his odynophagia with inability to take p.o. due to the de gree of pain and difficulty swallowing. He was evaluated by his medical oncologist and recommended f or admission to the hospital for dehydration, overall debilitation with recommendations for swallow s alfredo. He underwent the swallow study on November 19. I spoke with the patient regarding the findi ngs on November 20 and recommended injection of the cricopharyngeus muscle with botulinum toxin in order to improve his swallowing and in hopes of improving his degree of pain and improve his ability to take oral foods and liquids. The patient had a strong desire to avoid placement of a feeding tub e if possible. Description Of Procedure: The patient was brought to the operating room. He was placed under genera l anesthesia via oral endotracheal tube. A thorough exam under anesthesia was undertaken. The patie nt's lips and buccal mucosa were unremarkable. His teeth are in poor condition and his gums are infl jyoti. There was no specific lesion visible or palpable of the floor of mouth, palate, uvula, posteri or oropharyngeal wall, tonsil, or tongue. There was a thick white coating on the dorsal surface of t he tongue. There was no palpable masses of the base of tongue or vallecula. A rubber tooth guard wa s placed over the upper teeth and the Lilly laryngoscope was used to perform direct laryngoscopy. The vallecula was unremarkable. The mucosal surface of the epiglottis was very erythematous, but ot herwise without lesions, ulcerations, or masses. The glottis was partially obscured by the endotrach eal tube, but the visualized portions appeared normal. The piriform sinuses were clear of mucosal le sions or ulcerations. The most notable finding was severe thickening, friability with white plaques across the posterior hypopharyngeal wall. A swab was obtained for fungal stain and culture due to cl inical suspicion for recurrent hypopharyngeal thrush. A second swab was collected for aerobic bacter ial culture. A cup forceps was used to obtain a biopsy along the right lateral aspect of this abnorm al tissue and sent to pathology for permanent section. A telescope was used to aid in visualization as well as photo documentation of this abnormal finding. Although the tissue was friable, there was minimal bleeding overall. After completion of the direct laryngoscopy, the Lilly was removed and set aside. The cervical rigid esophagoscope was then selected and passed under direct visualization through the oral cavity and oropharynx. The tip was passed into the esophageal introitus without dif ficulty. Once the esophageal introitus was entered, the scope was passed to its full length at 25 cm measured at the teeth. The mucosa of the esophagus did not appear overly irritated. There was no s ignificant friability. There were no white plaques. There were no evidence of ulcerations or esopha geal thrush that I could determine. The scope was slowly withdrawn to the point of the cricopharynge us. The muscle was noted to be mildly hypertrophic. The Sidekick needle was fitted to a 1 mL syring e, which was filled with botulinum toxin diluted to a concentration of 7 units per 0.1 mL. The needl e was inserted into the mucosa on the posterior aspect and 0.1 mL was injected. A second injection w as given to the left and a third injection to the right of the initial injection site at approximatel y 5, 6, and 7 o'clock for a total injection of 21 units of toxin. Bleeding was very minimal. The es ophagoscope was removed and the procedure was concluded. The mouth guard was removed and the patient was returned to care of Anesthesia for awakening, extubation in the operating room, which proceeded without difficulty. The patient was then transported to the recovery room in stable condition. Disposition: The patient will be returned to the floor for further medical evaluation. We will plan for fluconazole IV 200 mg today followed by 100 mg daily for 14 days. I spoke with the inpatient ph armacist regarding dosing and recommendations. Fluconazole does have mildly increased bioavailabilit y when given by IV rather than oral dose and therefore it is advisable the patient receive IV dosing while he remains in the hospital. We should continue to monitor his liver function periodically. We will monitor his oral intake and consider discharge within the next 48 to 72 hours depending on clin ical status. If the patient is not able to adequately hydrate and take calories by mouth, reconsider ation for PEG tube placement may need to be discussed. MERT Voice ID: [id number] Report ID: [id number]
[2019-11-23] MEDS: NA CHLORIDE 0.9% 1,000 ML IV SCH ×2 (03:35→06:00)
[2019-11-23 06:11] LABS: Absolute Lymphocytes (CBC) 1.1 K/uL (0.7-4.9); Basophils % 0.8 % (0-1.3); RBC Red Blood Cell Count 3.72 M/uL (4.33-5.43)
[2019-11-23 06:20] LABS: Protime INR 0.94
[2019-11-23 06:56] LABS: ALT/SGPT 20 U/L (12-78); AST/SGOT 25 U/L (15-37); Albumin 2.1 g/dL (3.4-5.0); Alkaline Phosphatase 63 U/L (45-117); BUN Blood Urea Nitrogen 5 mg/dL (7-18); Bicarbonate 24 mmol/L (21-32); Bilirubin Total 0.4 mg/dL (0.2-1.0); Folic Acid, (Folate) 17.8 ng/mL (3.1-17.5); Glucose Level 94 mg/dL (74-106); HDL Cholesterol 73 mg/dL (40-60); LDL Cholesterol, Calculated 65 (<130); Magnesium 1.7 mg/dL (1.8-2.4); Phosphorus 2.5 mg/dL (2.5-4.9); Protein, Total 5.3 g/dL (6.4-8.2); Sodium Level 137 mmol/L (136-145)
[2019-11-23] MEDS: ALBUTEROL 2.5 MG/3 ML NEB SOL NEB PRN ×2 (08:10→13:21)
[2019-11-23] MEDS: ENSURE HIGH PROTEIN 237 ML CAN PO SCH ×3 (08:50→21:13)
[2019-11-23] MEDS ORDERED: NA CHLORIDE 0.9% 250 ML ONE (16:42)
[2019-11-23] MEDS: FLUCONAZOLE 100mg IVPB 100 MG/50 ML BAG IV SCH (16:44)
[2019-11-23] MEDS ORDERED: MAGNESIUM SULFATE 1 gm IVPB 1 GM/100 ML BAG IV ONE (21:00)
[2019-11-24] MEDS: ALBUTEROL 2.5 MG/3 ML NEB SOL NEB PRN ×4 (02:35→23:30)
[2019-11-24 05:49] LABS: Absolute Lymphocytes (CBC) 0.9 K/uL (0.7-4.9); Basophils % 0.5 % (0-1.3); Hematocrit 39.6 % (39.6-49.0); Lymphocytes % 14.8 % (15.3-44.8); MPV 9.1 fL (7.6-11.3)
[2019-11-24 06:16] LABS: BUN Blood Urea Nitrogen 3 mg/dL (7-18); Bicarbonate 26 mmol/L (21-32); Glucose Level 96 mg/dL (74-106); Magnesium 1.8 mg/dL (1.8-2.4); Potassium 3.5 mmol/L (3.5-5.1); Sodium Level 139 mmol/L (136-145)
[2019-11-24] MEDS: ENSURE HIGH PROTEIN 237 ML CAN PO SCH ×3 (08:50→20:46)
[2019-11-24] MEDS ORDERED: POTASSIUM CL SA 10 MEQ TAB PO ONE (09:00)
[2019-11-24] MEDS ORDERED: MAGNESIUM SULFATE 1 gm IVPB 1 GM/100 ML BAG IV ONE (09:00)
[2019-11-24] MEDS: FLUCONAZOLE 100mg IVPB 100 MG/50 ML BAG IV SCH (16:47)
--- NOTE | 2019-11-24 17:15 | P.PN ---
Subjective Date of Service: 11/20/19 Patient is severely malnourished. Patient having severe odynophagia. Has lost over 60 lb per PCP. Will Consult dietitian and GI. Calorie count and possible PEG tube placement. Review of Systems 10-point ROS is otherwise unremarkable Physical Examination - Vital Signs Temperature: 97.2 F Blood Pressure: 122/63 Pulse: 55 Respirations: 16 Pulse Ox (%): 98 - Physical Exam General: Alert, In no apparent distress, Oriented x3 Respiratory: Clear to auscultation bilaterally, Normal air movement Cardiovascular: Regular rate/rhythm, Normal S1 S2, No murmurs Gastrointestinal: Normal bowel sounds, Soft and benign, Non-distended, No tenderness Musculoskeletal: No clubbing, No swelling, No tenderness Neurological: Sensation intact, Cranial nerves 3-12 intact, Abnormal strength - Studies Laboratory Data (last 24 hrs) 11/24/19 05:29: Sodium 139, Potassium 3.5, BUN 3 L, Creatinine 0.39 L, Glucose 96, Phosphorus 3.0, Magnesium 1.8 11/24/19 05:29: WBC 6.2 D, Hgb 13.9, Hct 39.6, Plt Count 125 L Microbiology Data (last 24 hrs): 11/22/19 14:00 Other - Other Gram Stain - Final Medications List Reviewed: Yes Assessment & Plan - Problems (Diagnosis) (1) Severe malnutrition Current Visit: Yes Status: Acute (2) Odynophagia Current Visit: Yes Status: Acute (3) Dysphagia Current Visit: Yes Status: Acute (4) Alcohol abuse Current Visit: No Status: Acute (5) COPD (chronic obstructive pulmonary disease) Current Visit: No Status: Acute Qualifiers: COPD type: COPD with acute exacerbation Qualified Code(s): J44.1 - Chronic obstructive pulmonary disease with (acute) exacerbation (6) CAD (coronary artery disease) Current Visit: No Status: Chronic Qualifiers: Coronary Disease-Associated Artery/Lesion type: [place] artery [place] vs. transplanted heart: [place] heart Associated angina: without angina Qualified Code(s): I25.10 - Atherosclerotic heart disease of [place] coronary artery without angina pectoris (7) PAD (peripheral artery disease) Onset Date: 11/02/16 Current Visit: No Status: Chronic (8) TIA (transient ischemic attack) Current Visit: No Status: Suspected Qualifiers: Transient cerebral ischemia type: unspecified Qualified Code(s): G45.9 - Transient cerebral ischemic attack, unspecified - Plan Plan: 1. Calorie count 2. GI consultation 3. Possible PEG tube placement as recommended by Dr. Martinez; patient sees Dr. Renteria, so will Consult him 4. Modified barium swallow study recommended per ENT 5. Pain control 6. Protein shakes 7. GI and DVT prophylax Discharge Plan: Home Plan to discharge in: Greater than 2 days - Advance Directives Does patient have a Living Will: Yes Does patient have a Durable POA for Healthcare: Yes - Code Status/Comfort Care Code Status Assessed: Yes Code Status: Full Code Critical Care: No Time Spent Managing PTS Care (In Minutes): 35
--- NOTE | 2019-11-24 17:18 | P.PN ---
Subjective Date of Service: 11/21/19 Patient doing poorly with his caloric intake. Modified barium swallow study revealed that he is able to swallow nectar thick liquids. However, he is having a lot of pain when he does this so we will still probably need to get GI to do PEG tube because of his poor caloric intake. Awaiting ENT recommendations Review of Systems 10-point ROS is otherwise unremarkable Physical Examination - Vital Signs Temperature: 97.2 F Blood Pressure: 122/63 Pulse: 55 Respirations: 16 Pulse Ox (%): 98 - Physical Exam General: Alert, In no apparent distress, Oriented x3, Cachectic, Other (Severely malnourished) Respiratory: Clear to auscultation bilaterally, Normal air movement Cardiovascular: Regular rate/rhythm, Normal S1 S2, No murmurs Gastrointestinal: Normal bowel sounds, Soft and benign, Non-distended, No tenderness Musculoskeletal: No clubbing, No swelling, No tenderness Integumentary: No rashes Neurological: Sensation intact, Cranial nerves 3-12 intact, Abnormal gait, Abnormal strength Lymphatics: No axilla or inguinal lymphadenopathy - Studies Laboratory Data (last 24 hrs) 11/24/19 05:29: Sodium 139, Potassium 3.5, BUN 3 L, Creatinine 0.39 L, Glucose 96, Phosphorus 3.0, Magnesium 1.8 11/24/19 05:29: WBC 6.2 D, Hgb 13.9, Hct 39.6, Plt Count 125 L Microbiology Data (last 24 hrs): 11/22/19 14:00 Other - Other Gram Stain - Final Medications List Reviewed: Yes Assessment & Plan - Problems (Diagnosis) (1) Severe malnutrition Current Visit: Yes Status: Acute (2) Odynophagia Current Visit: Yes Status: Acute (3) Dysphagia Current Visit: Yes Status: Acute (4) Alcohol abuse Current Visit: No Status: Acute (5) COPD (chronic obstructive pulmonary disease) Current Visit: No Status: Acute Qualifiers: COPD type: COPD with acute exacerbation Qualified Code(s): J44.1 - Chronic obstructive pulmonary disease with (acute) exacerbation (6) CAD (coronary artery disease) Current Visit: No Status: Chronic Qualifiers: Coronary Disease-Associated Artery/Lesion type: [place] artery [place] vs. transplanted heart: [place] heart Associated angina: without angina Qualified Code(s): I25.10 - Atherosclerotic heart disease of [place] coronary artery without angina pectoris (7) PAD (peripheral artery disease) Onset Date: 11/02/16 Current Visit: No Status: Chronic (8) TIA (transient ischemic attack) Current Visit: No Status: Suspected Qualifiers: Transient cerebral ischemia type: unspecified Qualified Code(s): G45.9 - Transient cerebral ischemic attack, unspecified - Plan Plan: Continue with plan of care as mentioned below 1. Calorie count 2. GI consultation will probably proceed with PEG tube placement unless ENT recommend something different; pending discussion with ENT 3. Possible PEG tube placement as recommended by Dr. Martinez; patient sees Dr. Renteria, so will Consult him 4. Modified barium swallow study showed that patient should tolerate nectar thick liquids. However, because of his poor calorie count he will probably need PEG tube placement 5. Pain control 6. Protein shakes 7. GI and DVT prophylax Discharge Plan: Home Plan to discharge in: Greater than 2 days - Advance Directives Does patient have a Living Will: Yes Does patient have a Durable POA for Healthcare: Yes - Code Status/Comfort Care Code Status: Full Code Critical Care: No Time Spent Managing PTS Care (In Minutes): 35
--- NOTE | 2019-11-24 17:20 | P.PN ---
Subjective Date of Service: 11/22/19 Spoke with ENT overnight and they are recommending laryngoscopy. They will do this this morning and see if there is anything they can do to assist in patient's swallowing issues. If not then will proceed with PEG tube placement Review of Systems 10-point ROS is otherwise unremarkable Physical Examination - Vital Signs Temperature: 97.2 F Blood Pressure: 122/63 Pulse: 55 Respirations: 16 Pulse Ox (%): 98 - Physical Exam General: Alert, In no apparent distress, Oriented x3 Respiratory: Clear to auscultation bilaterally, Normal air movement Cardiovascular: Regular rate/rhythm, Normal S1 S2 Gastrointestinal: Normal bowel sounds, Soft and benign, Non-distended, No tenderness Musculoskeletal: No clubbing, No swelling, No tenderness Integumentary: No rashes - Studies Laboratory Data (last 24 hrs) 11/24/19 05:29: Sodium 139, Potassium 3.5, BUN 3 L, Creatinine 0.39 L, Glucose 96, Phosphorus 3.0, Magnesium 1.8 11/24/19 05:29: WBC 6.2 D, Hgb 13.9, Hct 39.6, Plt Count 125 L Microbiology Data (last 24 hrs): 11/22/19 14:00 Other - Other Gram Stain - Final Medications List Reviewed: Yes Assessment & Plan - Problems (Diagnosis) (1) Severe malnutrition Current Visit: Yes Status: Acute (2) Odynophagia Current Visit: Yes Status: Acute (3) Dysphagia Current Visit: Yes Status: Acute (4) Alcohol abuse Current Visit: No Status: Acute (5) COPD (chronic obstructive pulmonary disease) Current Visit: No Status: Acute Qualifiers: COPD type: COPD with acute exacerbation Qualified Code(s): J44.1 - Chronic obstructive pulmonary disease with (acute) exacerbation (6) CAD (coronary artery disease) Current Visit: No Status: Chronic Qualifiers: Coronary Disease-Associated Artery/Lesion type: [place] artery [place] vs. transplanted heart: [place] heart Associated angina: without angina Qualified Code(s): I25.10 - Atherosclerotic heart disease of [place] coronary artery without angina pectoris (7) PAD (peripheral artery disease) Onset Date: 11/02/16 Current Visit: No Status: Chronic (8) TIA (transient ischemic attack) Current Visit: No Status: Suspected Qualifiers: Transient cerebral ischemia type: unspecified Qualified Code(s): G45.9 - Transient cerebral ischemic attack, unspecified - Plan Plan: Continue with plan of care as mentioned below 1. Calorie count 2. Spoke with the ENT and they will proceed with laryngoscopy this morning. Possible intervention if they find anything unusual. 3. If no abnormality than PEG tube placement on Monday 4. NPO for lower endoscopy today 5. Pain control 6. Protein shakes 7. GI and DVT prophylax Discharge Plan: Home Plan to discharge in: Greater than 2 days - Advance Directives Does patient have a Living Will: Yes Does patient have a Durable POA for Healthcare: Yes - Code Status/Comfort Care Code Status: Full Code Critical Care: No Time Spent Managing PTS Care (In Minutes): 35
--- NOTE | 2019-11-24 17:22 | P.PN ---
Subjective Date of Service: 11/23/19 Status post laryngoscopy and injection of cricopharyngeal muscle. Patient doing much better. He is able to start eating now. He has not had any difficulty with pain. ENT also recommends Diflucan for 2 weeks. Continue diet as tolerated. If he does well then anticipate discharge in the next 48 hr. Review of Systems 10-point ROS is otherwise unremarkable Physical Examination - Vital Signs Temperature: 97.2 F Blood Pressure: 122/63 Pulse: 55 Respirations: 16 Pulse Ox (%): 98 - Physical Exam General: Alert, In no apparent distress, Oriented x3 HEENT: Atraumatic, PERRLA, EOMI Neck: Supple, JVD not distended Respiratory: Clear to auscultation bilaterally, Normal air movement Cardiovascular: Regular rate/rhythm, Normal S1 S2, No murmurs Gastrointestinal: Normal bowel sounds, Soft and benign, Non-distended, No tenderness - Studies Laboratory Data (last 24 hrs) 11/24/19 05:29: Sodium 139, Potassium 3.5, BUN 3 L, Creatinine 0.39 L, Glucose 96, Phosphorus 3.0, Magnesium 1.8 11/24/19 05:29: WBC 6.2 D, Hgb 13.9, Hct 39.6, Plt Count 125 L Microbiology Data (last 24 hrs): 11/22/19 14:00 Other - Other Gram Stain - Final Medications List Reviewed: Yes Assessment & Plan - Problems (Diagnosis) (1) Severe malnutrition Current Visit: Yes Status: Acute (2) Odynophagia Current Visit: Yes Status: Acute (3) Dysphagia Current Visit: Yes Status: Acute (4) Alcohol abuse Current Visit: No Status: Acute (5) COPD (chronic obstructive pulmonary disease) Current Visit: No Status: Acute Qualifiers: COPD type: COPD with acute exacerbation Qualified Code(s): J44.1 - Chronic obstructive pulmonary disease with (acute) exacerbation (6) CAD (coronary artery disease) Current Visit: No Status: Chronic Qualifiers: Coronary Disease-Associated Artery/Lesion type: [place] artery [place] vs. transplanted heart: [place] heart Associated angina: without angina Qualified Code(s): I25.10 - Atherosclerotic heart disease of [place] coronary artery without angina pectoris (7) PAD (peripheral artery disease) Onset Date: 11/02/16 Current Visit: No Status: Chronic (8) TIA (transient ischemic attack) Current Visit: No Status: Suspected Qualifiers: Transient cerebral ischemia type: unspecified Qualified Code(s): G45.9 - Transient cerebral ischemic attack, unspecified - Plan Plan: Continue with plan of care as mentioned below 1. Patient doing much better with his diet after injection of cricopharyngeal muscle; tolerating diet and will probably not need PEG tube as he is eating much better. 2. Continue Diflucan for 2 week 3. Outpatient follow with PCP 4. Anticipate discharge home in the next 24-48 hr 5. GI and DVT prophylax Discharge Plan: Home Plan to discharge in: Greater than 2 days - Advance Directives Does patient have a Living Will: Yes Does patient have a Durable POA for Healthcare: Yes - Code Status/Comfort Care Code Status: Full Code Critical Care: No Time Spent Managing PTS Care (In Minutes): 35
--- NOTE | 2019-11-24 17:22 | P.PN ---
Subjective Date of Service: 11/24/19 Subjective: No new changes, No C/O voiced, Improving did have a mild headache which was relieved by Tylenol. Otherwise he continues to tolerate diet with no pain. Anticipate discharge home in morning. Review of Systems 10-point ROS is otherwise unremarkable Physical Examination - Vital Signs Temperature: 97.2 F Blood Pressure: 122/63 Pulse: 55 Respirations: 16 Pulse Ox (%): 98 - Physical Exam General: Alert, In no apparent distress, Oriented x3 Respiratory: Clear to auscultation bilaterally, Normal air movement Cardiovascular: Regular rate/rhythm, Normal S1 S2 Gastrointestinal: Normal bowel sounds, Soft and benign, Non-distended, No tenderness Neurological: Normal speech, Normal strength at 5/5 x4 extr - Studies Laboratory Data (last 24 hrs) 11/24/19 05:29: Sodium 139, Potassium 3.5, BUN 3 L, Creatinine 0.39 L, Glucose 96, Phosphorus 3.0, Magnesium 1.8 11/24/19 05:29: WBC 6.2 D, Hgb 13.9, Hct 39.6, Plt Count 125 L Microbiology Data (last 24 hrs): 11/22/19 14:00 Other - Other Gram Stain - Final Medications List Reviewed: Yes Assessment & Plan - Problems (Diagnosis) (1) Severe malnutrition Current Visit: Yes Status: Acute (2) Odynophagia Current Visit: Yes Status: Acute (3) Dysphagia Current Visit: Yes Status: Acute (4) Alcohol abuse Current Visit: No Status: Acute (5) COPD (chronic obstructive pulmonary disease) Current Visit: No Status: Acute Qualifiers: COPD type: COPD with acute exacerbation Qualified Code(s): J44.1 - Chronic obstructive pulmonary disease with (acute) exacerbation (6) CAD (coronary artery disease) Current Visit: No Status: Chronic Qualifiers: Coronary Disease-Associated Artery/Lesion type: [place] artery [place] vs. transplanted heart: [place] heart Associated angina: without angina Qualified Code(s): I25.10 - Atherosclerotic heart disease of [place] coronary artery without angina pectoris (7) PAD (peripheral artery disease) Onset Date: 11/02/16 Current Visit: No Status: Chronic (8) TIA (transient ischemic attack) Current Visit: No Status: Suspected Qualifiers: Transient cerebral ischemia type: unspecified Qualified Code(s): G45.9 - Transient cerebral ischemic attack, unspecified - Plan Plan: Continue with plan of care as mentioned below 1. Patient doing much better with his diet after injection of cricopharyngeal muscle; tolerating diet and will probably not need PEG tube as he is eating much better. Significant improvement. Anticipate discharge home in the morning. 2. Continue Diflucan for 2 week 3. Outpatient follow with PCP 4. GI and DVT prophylax Discharge Plan: Home Plan to discharge in: 24 Hours - Advance Directives Does patient have a Living Will: Yes Does patient have a Durable POA for Healthcare: Yes - Code Status/Comfort Care Code Status: Full Code Critical Care: No Time Spent Managing PTS Care (In Minutes): 35
[2019-11-24 22:28] VITALS: O2SAT 98
[2019-11-25 06:24] LABS: BUN Blood Urea Nitrogen 2 mg/dL (7-18); Bicarbonate 29 mmol/L (21-32); Glucose Level 80 mg/dL (74-106); Magnesium 1.9 mg/dL (1.8-2.4); Sodium Level 136 mmol/L (136-145)
[2019-11-25] MEDS ORDERED: levoFLOXacin 250 MG TAB PO ONE (06:53)
[2019-11-25] MEDS: ENSURE HIGH PROTEIN 237 ML CAN PO SCH (08:41)
--- NOTE | 2019-11-25 09:14 | P.PN ---
Subjective Date of Service: 11/25/19 Chief Complaint: Dehydration/failure to thrive/syncope Subjective: Improving, Other (eating well. no problems.) Physical Examination - Vital Signs Temperature: 97.2 F Blood Pressure: 122/63 Pulse: 55 Respirations: 16 Pulse Ox (%): 98 - Physical Exam General: Alert, In no apparent distress, Oriented x3, Cooperative HEENT: Atraumatic Neck: Supple Respiratory: Clear to auscultation bilaterally, Normal air movement Cardiovascular: Normal pulses, Regular rate/rhythm Gastrointestinal: Normal bowel sounds Integumentary: No erythema, No warmth, No cyanosis Neurological: Normal speech, Normal strength at 5/5 x4 extr, Normal tone, Normal affect - Studies Laboratory Data (last 24 hrs) 11/25/19 05:40: Sodium 136, Potassium 4.0, BUN 2 L, Creatinine 0.47 L, Glucose 80, Magnesium 1.9 Microbiology Data (last 24 hrs): 11/22/19 14:00 Other - Other Gram Stain - Final Medications List Reviewed: Yes Assessment & Plan Discharge Plan: Home Plan to discharge in: 24 Hours Physician Review Additional Text: Impression: Severe malnutrition secondary to Odynophasia/dysphagia/cricopharyngeal muscle spasm, weight loss with possible hypopharyngeal thrush status post direct operative laryngoscopy with injection of Botox to cricopharyngeus muscle COPD with exacerbation CAD Peripheral vascular disease History of TIA Alcohol abuse Essential tremors Depression Plan: Severe malnutrition secondary to Odynophasia/dysphagia/cricopharyngeal muscle spasm, weight loss with possible hypopharyngeal thrush status post direct operative laryngoscopy with injection of Botox to cricopharyngeus muscle: Patient has done remarkably well after Botox injection. Patient now able to eat. No need for PEG tube at this time. Patient to be evaluated by ENT prior to discharge. Discharge planned for today if okay with ENT. Patient will continue with treatment of thrush at discharge. Dc summary to done by Dr. Santillan. COPD with exacerbation: Continue COPD treatment in medications. CAD: Continue home medication Peripheral vascular disease: This can be further evaluated monitored as an outpatient. History of TIA: Overall stable. Alcohol abuse: Continue to address alcohol cessation education as an outpatient. Essential tremors: Continue medication Depression: Continue medication Time Spent Managing Pts Care (In Minutes): 55
[2019-11-25] MEDS ORDERED: LOPERAMIDE HCL 2 MG CAPSULE PO PRN (10:00)
[2019-11-25] MEDS ORDERED: AMYLASE PO SCH (12:00)
[2019-11-25] MEDS ORDERED: PROTEASE PO SCH (12:00)
[2019-11-25] MEDS ORDERED: LIPASE PO SCH (12:00)
[2019-11-25 12:49] VITALS: BP 113/53; TEMP 97.8
[2019-11-25] MEDS ORDERED: PRIMIDONE 50 MG TAB PO SCH ×2 (21:00)
[2019-11-25] MEDS ORDERED: MIRTAZAPINE 15 MG TAB PO SCH (21:00)
[2019-11-26] MEDS ORDERED: PANTOPRAZOLE 40MG TABLET PO SCH (09:00)
[2019-11-26] MEDS ORDERED: CYANOCOBALAMIN 1,000 MCG TAB PO SCH (09:00)
[2019-11-26] MEDS ORDERED: PRIMIDONE 50 MG TAB PO SCH ×2 (09:00)
[2019-11-26] MEDS ORDERED: predniSONE 10 MG TAB PO SCH (09:00)
[2019-11-26] MEDS ORDERED: TIOTROPIUM BR IN SCH (09:00)
[2019-11-26] MEDS ORDERED: ASCORBIC ACID 500 MG TABLET PO SCH (09:00)
[2019-11-26] MEDS ORDERED: FUROSEMIDE 20 MG TABLET PO SCH (09:00)
[2019-11-26] MEDS ORDERED: SERTRALINE HCL 50 MG TAB PO SCH (09:00)
[2019-11-26] MEDS ORDERED: VITAMIN E 400 IU CAP PO SCH (09:00)
[2019-11-26] MEDS ORDERED: predniSONE 20 MG TAB PO SCH (09:00)
[2019-11-26] MEDS ORDERED: levoFLOXacin 500 MG TAB PO SCH (09:00)
[2019-11-26] MEDS ORDERED: OLODATEROL HCL IN SCH (09:00)
== END 2019-11-25 14:25 | disposition home or self-care (01) | DRG 391 ==
LOC: 2ND 18:08 → OBSVTOIN 20:54
PROVIDERS: ADMIT Hospitalist; ATTEND Family Medicine
PROC: 3E0G8GC Introduction of Other Therapeutic Substance into Upper GI, Via Natural or Artificial Opening Endoscopic (ICD-10-PCS; 2019-11-22)
PROC: 0CBM8ZX Excision of Pharynx, Via Natural or Artificial Opening Endoscopic, Diagnostic (ICD-10-PCS; principal; 2019-11-22 14:45)
DX: R13.10 Dysphagia, unspecified (principal); E43 Unspecified severe protein-calorie malnutrition; Z68.1 Body mass index [BMI] 19.9 or less, adult; J44.1 Chronic obstructive pulmonary disease with (acute) exacerbation; E86.0 Dehydration; F17.210 Nicotine dependence, cigarettes, uncomplicated; G62.9 Polyneuropathy, unspecified; F10.10 Alcohol abuse, uncomplicated; I25.10 Atherosclerotic heart disease of native coronary artery without angina pectoris; I73.9 Peripheral vascular disease, unspecified; G25.0 Essential tremor; F32.9 Major depressive disorder, single episode, unspecified; R62.7 Adult failure to thrive; R55 Syncope and collapse; Z86.73 Personal history of transient ischemic attack (TIA), and cerebral infarction without residual deficits; Z88.1 Allergy status to other antibiotic agents; Z79.899 Other long term (current) drug therapy; Z90.49 Acquired absence of other specified parts of digestive tract; Z79.52 Long term (current) use of systemic steroids; Z20.828 Contact with and (suspected) exposure to other viral communicable diseases
CPT/HCPCS: 36415; 74230; 80048; 80053; 80061; 81003; 82607; 82746; 83540; 83735; 84100; 84145; 84439; 84443; 85025; 85044; 85610; 85652; 85730; 86140; 87070; 87077; 87102; 87186; 87205; 87324; 87449; 88305; 92526; 92611; 93306; 94640; 97110; 97161; 99215; G0378; G0379; J0171; J0585; J1100; J1450; J1644; J2250; J2370; J2405; J2704; J2710; J3010; J3475; J3480; J7030; J7050; J7120; U0002

== ENCOUNTER 2020-04-02 15:24 | Emergency (ER) | payer OTHER ==
--- OUTSIDE RECORDS SUMMARY | 2020-04-02 15:30 | XMS REPORT | Continuity of Care Document ---
:1945 Author Organization [employer] Care Team Providers Name Role Phone [employer] Unavailable Un available Problems Problem Status Onset Classification Date Comments Sour e Date Reported Essential tremor Active Problem 06/18/2018 Data nathaniel rated from [employer] on 12/27/2016. Originally documented as Essential tremor. Mischer (disorder) 017 Data migrated from [employer] on 11/02/2016. Originally documented as Essential tremor. Neuro, Data migrated from [employer] on 05/12/2016. Originally documented as Essential tremor. [facility] HEADACHE Active [facility] 017 [facility] FOOT PAIN OR Active [facility] INJURY 017 Hospital CELLULITIS OF Active Jyoti y RIGHT LOWER LIMB 017 Hos pital WOUND Active [facility] 017 Rehab ACUTE RESPIRATORY Active [facility] FAILURE, ACUTE 016 [facility] RESPIRA SHORTNESS OF Active [facility] BREATH 016 Hospital PCP SENT/WEAKNESS Active [facility] 016 [facility] ACUTE COPD Active [facility] EXACERBATION 016 Hospita l COPD Active [address] 305.1 - TOBACCO Active O PID Anush[facility] USE DIS 015 TOBACCO ABUSE Active Condition 07/23/2014 [facility] dical 015 Group Tobacco dependence Active Problem 06/18/2018 Data m igrated from [employer] on 09/17/14. 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 Neuro, (disorder) [facility] LOSS OF WEIGHT Active Condition 07/23/2014 M edical 015 Group CAROTID BRUIT, Active Condition 07/23/2014 [facility] edical RIGHT 015 Group Carotid bruit Active Problem 06/18/2018 Data migrat ed from [employer] on 09/17/14. Mischer (finding) 015 Data migrated from [employer] on 08/12/14. Neuro,[facility] Rehab,[facility] Weight decreased Active Problem 06/18/2018 Data nathaniel rated from [employer] on 09/17/14. Mischer (finding) 015 Data migrated from [employer] on 08/12/14. Neuro,[facility] Rehab,[facility] PNEUMONIA Active [facility] 015 Hospital COPD EXACERBATION Active [address] RASH AND OTHER Inactive Condition 07/23/2014 [facility] edical NONSPECIFIC SKIN 015 Az up ERUPTION RASH Active [facility] 014 [facility] CELLULITIS FAILED Active [facility] OUTPATIENT THERAPY 014 H ospital ERYSIPELAS Inactive Condition 07/23/2014 Medic al 014 Group Erysipelas Resolved Problem 06/18/2018 Data Mischer (disorder) 014 migrated Neuro, from [facility] Rehab, on 09/26/14. [facility] SEBORRHEIC Inactive Condition 07/23/2014 Medic al KERATOSIS 014 Group SUPERIOR GLENOID Inactive Condition 07/23/2014 Medical LABRUM LESIONS 014 Group (SLAP) ROTATOR CUFF TEAR Inactive Condition 07/23/2014 [facility] Medical 014 Group HYPOTHYROIDISM Active Condition 07/23/2014 [facility] edical 014 Group HYPOGONADISM Active Condition 07/23/2014 Med ical 014 Group SHOULDER PAIN, Inactive Condition 07/23/2014 [facility] edical LEFT 014 Group PERIPHERAL Active Condition [...] migrated from [employer] on 08/12/14. Neuro,[facility] disease (disorder) Data migrat ed from [employer] on 08/12/14. [facility], OPID Anusha, [facility] Hypogonadism Active Problem 06/18/2018 Data migrate d from [employer] on 09/17/14. Mischer (disorder) 014 Data migrated from [employer] on 08/12/14. Neuro,[facility] Data migrated from [employer] on 08/12/14. [facility] Osteoporosis Active Problem 06/18/2018 Data migrate d from [employer] on 09/17/14. Mischer (disorder) 014 Data migrated from [employer] on 08/12/14. Neuro, Data migrated from [employer] on 08/12/14. [place] [facility] Peripheral Active Problem 06/18/2018 Data migrated from [employer] on 09/17/14. Mischer vascular disease 014 Data migrated from [employer] on 08/12/14. Neuro, (disorder) Data migrated from [employer] on 08/12/14. 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, systemic N euro, arterial Anusha (disorder) Rehab,[facility] Hypothyroidism Resolved Problem 06/18/2018 Misc her (disorder) Neuro,[facility] Rehab,[facility] 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 euro, disease (disorder) K aty Rehab, OPID Anusha, [facility] Poor short-term Active Problem 06/18/2018 Mis shamar memory (finding) Dede ro Smoker (finding) Active Problem 06/18/2018 Mi sofya Neuro,[facility] Rehab,[facility] COPD Resolved Problem 09/14/2012 [facility] Cellulitis of Active Diagnosis 02/18/2017 W Kristin right lower limb Inf ectious Disease RESPIRATORY ABNORM Active Emelia Tavares [facility] CHR AIRWAY Active PATTIE Tavares [facility] CELLULITIS NOS Active [facility] CHRONIC Active PATTIE Tavares [facility] H ospital DISEASE W ACU ACUTE RESPIRATORY Active PATTIE Tavares FAILURE, UNSP W Hosp ital HYPOXI Medications Medication Details Route Status Patient Ordering Order Source Instructions Provider Date rivastigmine See Active 06/26/ Mischer 1.5 mg oral Instructions 2018 Neuro capsule , # 180 unknown unit, Refill(s) 3, TAKE 1 CAPSULE BY MOUTH TWICE DAILY, Pharmacy: [facility] [id number] primidone 50 mg See Active 06/05/ Mischer oral tablet Instructions 2018 Neuro , 4 tabs twice a day, # 720 tab, 3 Refill(s), Pharmacy: [facility] [id number] Megestrol See Active 05/12/ Mischer Acetate 40 Instructions 2018 Neuro MG/ML Oral , # 600 mL, Suspension SHAKE WELL AND TAKE 20 ML BY MOUTH EVERY DAY, Pharmacy: [facility] [id number] rivastigmine 1.5 mg = 1 No Longer 04/24/ Mische r 1.5 mg oral cap, PO, Active 2018 Neuro capsule BID, # 60 cap, 3 Refill(s), Pharmacy: [facility] [id number] diazepam 2 mg 2 mg = 1 Active 04/12/ Mischer oral tablet tab, PO, 2018 Neuro Daily, PRN Tremor, X 30 day, # 30 tab, 3 Refill(s) Enoxaparin Notes: (Same No Longer 06/29/ Jyoti y as: Lovenox) Active 2017 Hospital Miralax Notes: [...] BID, # 60 tab, 0 Refill(s) Nystatin 012519 500,000 unit Active Anusha UNT/ML Oral = [...] Active 2017 Hospital PO, Drug form: TAB, [id number], Dosing Weight 71.682, kg, Start date: 06/25/16 15:00:00 CDT, Duration: 7 day, Stop date: 07/01/16 15:00:00 CDT cholecalciferol Notes: Same No Longer Anusha as : Vitamin Active 2016 Hospital D3 clopidogrel Notes: (Same No Longer [...] Longer Anusha as: MaxEPA, Active 2017 Hospital Sandy 3 fish oil ) Non-Formular y Drug Vitamin C Notes: (Same No Longer Anusha as: Vitamin Active 2017 Hospital C) Spiriva Notes: (Same No Longer [...] / as: Duoneb) Active 2017 Hospital Ipratropium [place] 0.167 MG/ML Inhalant Solution Nystatin 289501 500,000 No Longer Jyoti y UNT/ML Oral [...] / NEB, Dosing 2017 Hospital Ipratropium Weight [place] 0.167 71.682, kg, MG/ML Inhalant PRN, PRN [...] No Longer Jyoti y Start date: Active [facility] Hospital 06/21/16 22:51:00 CDT, Duration: 30 day, Stop date: 07/21/16 22:50:00 CDT Ondansetron Notes: (Same No Longer Ellis dailey as: Zofran) Active 2017 Hospital MEDICATION WASTE Product Size: 4 mg Product Wasted: ___ mg Acetaminophen 1 tab, No Longer Anusha 325 MG / Route: PO, Active [address] [place] [address] Hydrocodone Drug Form: Bitartrate 5 MG TAB, [...] Vancomycin 1,000 mg, Inactive Anusha Route: IVPB, [address] [place] [address] Drug form: INJ, ONCE, Dosing Weight 69.091, kg, Priority: STAT, Start date: 06/21/16 20:24:00 CDT, Stop date: 06/21/16 20:24:00 CDT, TIME CRITICAL MEDICATION Ciprofloxacin 400 mg, Inactive Anusha Route: IVPB, [facility] Hospital ONCE, Dosing Weight 69.091, kg, Priority: STAT, Start date: 06/21/16 20:24:00 CDT, Stop date: 06/21/16 20:24:00 CDT Albuterol 0.833 Notes: (Same Inactive Anusha MG/ML / as: Duoneb) [address] [place] [address] Ipratropium [place] 0.167 MG/ML Inhalant Solution [DuoNeb] Acetaminophen Notes: Do Inactive Anusha not exceed 4 2017 Hospital gm/day. (Same as: Tylenol) Sodium Chloride 25 mL, No Longer Jyoti y 0.9% IV Route: IV, Active [facility] Hospital Start date: 06/21/16 18:40:00 CDT, Duration: 30 day, Stop date: 07/21/16 18:39:00 CDT, PRN Line Flush Hydralazine Notes: (Same Inactive Jyoti y as: [facility] Hospital Apresoline) Push over 5 minutes Morphine Notes: (Same Inactive Anusha as:MORPhine 2017 [facility] Sulfate) Morphine Notes: (Same Inactive Anusha as:MORPhine 2017 [facility] Sulfate) Diphenhydramine Notes: (Same Inactive Anusha as: [...] Hospital Posiflush) Doxycycline Notes: (Same Inactive Jyoti bourgeois as: 2017 [facility] Vibramycin) No milk/antacid s/iron. Ciprofloxacin Notes: May Inactive Jyoti y interfere 2017 Hospital w/enteral feedings - Take 1 hr before or 2 hrs after antacids, dairy pdt & minerals. On empty stomach. minocycline 100 100 mg = 1 Active Ka ty mg oral capsule cap, PO, 2017 Hospita l Q12H, X 30 day, # 60 cap, 0 Refill(s), Pharmacy: [facility] [address] ciprofloxacin 500 mg = 1 Active Anusha 500 mg oral tab, PO, 2017 Hospital tablet Q12H, X 30 day, # 60 tab, 0 Refill(s), Pharmacy: [facility] [id number] Nicotine Notes: (Same Inactive Anusha as: 2017 [...] form: INJ, ABXQ8H, Start date: 05/17/16 21:30:00 [employer], Duration: 30 day, Stop date: 06/16/16 13:30:00 [...] levofloxacin 500 mg = 1 No Longer y 500 mg oral tab, PO, Active [...] Jyoti y as: Lovenox) Active 2016 Hospital metoprolol Notes: (Same No Longer Jyoti y tartrate as: Active 2016 Hospital Lopressor) Ondansetron Notes: (Same No Longer Ka ty as: Zofran) Active 2017 Hospital MEDICATION WASTE [...] 05/17/ H Anusha As: Tessalon Active 2016 [facility] Perles) "Do Not Crush" Loratadine Notes: 1 hr No Longer Anusha before meals Active 2016 Hospital (Same as: Claritin) Non-formular y item Hydralazine Notes: (Same No Longer Ka ty as: Active 2016 Hospital Apresoline) Push over 5 minutes Acetaminophen Notes: (Same No Longer Anusha 325 MG / as: [place] Active 2016 [facility] Hydrocodone 325/5) Do Bitartrate 5 MG not exceed Oral Tablet 4gm/day of [[place] 5/325] acetaminophe n. Acetaminophen Notes: Do No Longer Jyoti y 325 MG / not exceed Active 2016 [facility] Hydrocodone 4gm/day of Bitartrate 10 acetaminophe MG Oral Tablet n. (Same [[place] 10/325] as: [place] 325/10) Lorazepam Notes: (Same No Longer Anusha as: Ativan) Active 2016 Hospital Morphine 1 mg, 0.5 No Longer Anusha mL, Route: Active 2016 Hospital IVP, Drug form: SOLN, Q4H, Dosing Weight 74.545, kg, PRN Pain Score 7-10, if unable to take po, Start date: 05/17/16 16:41:00 [employer], Duration: 30 day, Stop date: 06/16/16 16:40:00 CDT Albuterol 0.833 Notes: (Same No Longer 05/17/ H Anusha MG/ML / as: Duoneb) Active [address] [place] [address] Ipratropium [place] 0.167 MG/ML Inhalant Solution Vancomycin 1,118.175 Inactive Anusha mg, Route: [address] [place] [address] IVPB, ABXQ8H, Dosing Weight 74.545, kg, TIME CRITICAL MEDICATION, Priority: STAT, Start date: 05/17/16 16:39:00 [employer], Duration: 30 day, Stop date: 06/16/16 8:39:00 CDT Clindamycin 600 mg, Inactive Anusha Route: IVPB, [address] [place] [address] ABXQ8, Dosing Weight 74.545, kg, Priority: STAT, Start date: 05/17/16 16:39:00 [employer], Duration: 30 day, Stop date: 06/16/16 8:39:00 CDT Saline Flush Notes: (Same No Longer K aty 0.9% as: BD Active [address] [place] [address] Posiflush) Sodium Chloride 1,000 mL, No Longer K aty 0.154 MEQ/ML Rate: [address] [place] [address] Injectable ml/hr, Solution Infuse over: 10 hr, Route: IV, Dosing Weight 74.545 kg, Total Volume: 1,000, Start date: 05/17/16 16:39:00 [employer], Duration: 30 day, Stop date: 06/16/16 16:38:00 CDT Acetaminophen 100.4 F, Inactive Anusha Start date: [address] [place] [address] 05/17/16 16:39:00 [employer], Duration: 30 day, Stop date: 06/16/16 16:38:00 CDT Clindamycin 600 mg, 50 Inactive Anusha mL, Route: 2017 [facility] IVPB, Drug form: INJ, ONCE, Dosing Weight 74.545, kg, Priority: STAT, Start date: 05/17/16 12:31:00 [employer], Stop date: 05/17/16 12:31:00 [employer] Symbicort 2 puff, Active Anusha 160/4.5 INHALATION, 2016 [facility] inhalation RBID, # 1 aerosol with ea, [...] Refill(s) methylPREDNISol Notes: (Same No Longer 07/18/ M H Anusha one SODium as:Solu-MEDR Active 2015 Hospital SUCCinate OL, A-Methapred) Albuterol 0.833 Notes: (Same No Longer 07/17/ H Anusha MG/ML / as: Duoneb) Active 2015 Hospital Ipratropium [place] 0.167 MG/ML Inhalant Solution [DuoNeb] Acetylcysteine 200 [...] Black Ipratropium Notes: SEE No Longer Anusha [place] 0.2 RT Active 2015 Hospital MG/ML Inhalant DOCUMENTATIO Solution N (Same as:Atrovent) Levalbuterol Notes: SEE No Longer Jyoti y RT Active 2015 Hospital DOCUMENTATIO N (Same as:Xopenex) Non-Formular y Nicotine Notes: (Same No Longer Anusha as: Active 2016 Hospital Habitrol) WASTE: F/P - P Waste Black; E - P Waste Black Ipratropium Notes: SEE Inactive Anusha [place] 0.2 RT 2016 Hospital MG/ML Inhalant DOCUMENTATIO Solution N (Same as:Atrovent) Acetylcysteine 200 mg, 1 No Longer Ka ty 200 MG/ML mL, Route: Active 2016 Hospital Inhalant NEB, Drug Solution Form: SOLN, Dosing Weight 68.182, kg, RQID, Start date: 07/16/15 7:00:00 CDT, Duration: 30 day, Stop date: 08/14/15 19:00:00 CDT methylPREDNISol Notes: (Same No Longer 07/15/ H Anusha one SODium as:Solu-MEDR Active [address] [facility], A-Methapred) Albuterol 0.833 Notes: (Same No Longer 07/15/ M H Anusha MG/ML / as: Duoneb) Active 2016 Hospital Ipratropium [place] 0.167 MG/ML Inhalant Solution Levalbuterol Notes: SEE Inactive Anusha RT 2016 Hospital DOCUMENTATIO N (Same as:Xopenex) Non-Formular y methylPREDNISol Notes: (Same Inactive Anusha one as:Solu-MEDR 2016 Hospital OL, A-Methapred) methylPREDNISol Notes: (Same Inactive Anusha one SODium as:Solu-MEDR 2016 [facility], A-Methapred) atorvastatin Notes: (Same No Longer [...] MG/ML / as: Duoneb) 2016 Hospital Ipratropium [place] 0.167 MG/ML Inhalant Solution Sodium Chloride 25 mL, No Longer Jyoti y 0.9% IV Route: IV, Active 2016 Hospital Start date: 07/15/15 18:14:00 CDT, Duration: 30 day, Stop date: 08/14/15 18:13:00 CDT, PRN Line Flush BD Normal Notes: (Same No Longer Anusha Saline Flush as: BD Active 2015 Hospital Posiflush) Ipratropium 500 Inactive Anusha microgram, 2016 Hospital Route: NEB, ONCE, Dosing Weight 68.182, kg, Start date: 07/15/15 18:11:00 CDT, Stop date: 07/15/15 18:11:00 CDT Xopenex Notes: Same Inactive Anusha as: Xopenex 2016 Hospital Non-Formular y High Concentrated (0.5ml) SEE RT DOCUMENTATIO N Lorazepam Notes: (Same Inactive Anusha as: Ativan) 2016 [facility] Sodium Chloride 1,000 mL, Inactive Ka ty [...] MG/ML / as: Duoneb) 2016 Hospital Ipratropium [place] 0.167 MG/ML Inhalant Solution [DuoNeb] Brovana Notes: SEE No Longer Anusha RT Active 2015 Hospital DOCUMENTATIO N Same as Brovana atorvastatin [...] Inactive Anusha MG/ML / as: Duoneb) 2016 [facility] Ipratropium [place] 0.167 MG/ML Inhalant Solution Solu-Medrol Notes: (Same Inactive Jyoti y as:Solu-MEDR 2016 Hospital OL, A-Methapred) Melatonin Notes: (Same Inactive Anusha as: 2016 [facility] Melatonin) Acetaminophen Notes: Do Inactive Anusha 325 MG / not exceed 2016 Hospital Hydrocodone 4gm/day of Bitartrate 10 acetaminophe MG Oral Tablet n. (Same [[place] 10/325] as: [place] 325/10) Hydralazine Notes: (Same Inactive Jyoti y as: [address] [place] [address] Apresoline) Push over 5 minutes Acetaminophen Notes: Do Inactive Anusha not exceed [address] [facility] gm/day. (Same as: Tylenol) Caitlin Cox Notes: (Same Inactive Anusha As: Tessalon 2016 [facility] Perles) "Do Not Crush" Morphine Notes: (Same Inactive Anusha as:MORPhine 2016 [facility] Sulfate) Loratadine Notes: 1 hr Inactive Anusha before meals 2016 Hospital (Same as: Claritin) Bisacodyl Notes: (Same Inactive Anusha As: 2016 Hospital Dulcolax, Bisco-Lax) Ondansetron Notes: (Same Inactive Jyoti y as: Zofran) 2016 Hospital MEDICATION WASTE Product Size: 4 mg Product Wasted: _0__ mg Simethicone Notes: (Same Inactive Jyoti y as: Mylicon) 2016 Hospital Lorazepam Notes: (Same Inactive Anusha as: Ativan) 2016 Hospital Flagyl Notes: (Same [...] No Longer Anusha 325 MG / as: [place] Active 2015 Hospital Hydrocodone 325/5) Do Bitartrate [...] Inactive Anusha MG/ML / 2016 Hospital Ipratropium [place] 0.167 MG/ML Inhalant Solution atorvastatin 10 10 mg = 1 On Hold Jyoti y mg oral tablet tab, PO, 2016 Hospital Bedtime, 0 Refill(s) Sodium Chloride 25 mL, No Longer Jyoti y 0.9% IV Route: IV, Active 2016 Hospital Start date: 07/13/15 15:59:00 CDT, Duration: 30 day, Stop date: 08/12/15 15:58:00 CDT, PRN Line Flush Albuterol 0.833 Notes: (Same Inactive Anusha MG/ML / as: Duoneb) 2016 Hospital Ipratropium [place] 0.167 MG/ML Inhalant Solution methylPREDNISol Notes: (Same [...] / as: Duoneb) Active 2016 Hospital Ipratropium [place] 0.167 MG/ML Inhalant Solution [DuoNeb] BD Normal Notes: (Same No Longer Anusha Saline Flush as: BD Active 2016 Hospital Posiflush) Sodium Chloride IV, 0 ml/hr, No Longer H Anusha 0.9% IV PRN, PRN Active 2015 [facility] Line Flush, Start date: 05/04/15 17:42:00, Duration: 30, 25 ml Levaquin Notes: (Same No Longer Anusha as:Levaquin) Active 2016 [facility] Notes: (Same No Longer H Anusha As: Tessalon Active 2016 [facility]) "Do Not Crush" Robitussin-AC Notes: (Same No Longer Anusha oral syrup As: Active 2015 [facility] Robitussin AC) Unknown Home 2 puffs, Active [...] Anusha 500 mg oral tab, PO, 2013 [facility] tablet Q12H, # 14 tab, 0 Refill(s) methylPREDNISol 40 mg, Inactive Anusha one SODium Route: IVP, 2013 [facility] SUCCinate Q6H, Dosing Weight 80.909, kg, Priority: Routine, Start date: 05/16/13 18:00:00, Duration: 30 day, Stop date: 06/15/13 12:00:00 Acetylcysteine 2 mL, Route: Inactive Anusha 100 MG/ML [facility], Drug 2013 [facility] Inhalant Form: SOLN, Solution Dosing Weight 80.909, kg, Q8H, Start date: 05/16/13 16:00:00, Duration: 30 day, Stop date: 06/15/13 8:00:00 acetylcysteine 200 mg, 1 No Longer Ka ty mL, Route: Active 2013 [facility], Drug Form: SOLN, RQ8H, Start date: 05/16/13 15:00:00, Duration: 30 day, Stop date: 06/15/13 7:00:00 Albuterol 0.833 3 ml, Route: No Longer H Anusha MG/ML / INHALATION, Active 2013 [facility] Ipratropium Drug Form: [place] 0.167 SOLN, Dosing MG/ML Inhalant Weight Solution 80.909, kg, [DuoNeb] RQ4H, Start date: 05/16/13 15:00:00, Duration: 30 day, Stop date: 06/15/13 11:00:00([facility] e as: Duoneb) Cipro 400 mg, 200 No Longer Anusha mL, Route: Active 2013 [facility] IVPB, Drug form: INJ, [id number], Dosing Weight 80.909, kg, Start date: 05/16/13 13:00:00, Duration: 30 day, Stop date: 06/15/13 1:00:00Do not refrigerate dexamethasone 4 mg, 1 mL, No Longer K aty Route: IV, Active 2013 [facility] Drug form: INJ, Q6H, Start date: 05/16/13 12:21:00, Duration: 30 day, Stop date: 06/15/13 12:00:00Conc entration: 4mg/ml Sodium Chloride 25 mL, No Longer Jyoti y 0.9% IV Route: IV, [facility] 2013 [facility] Start date: 05/16/13 12:18:00, Duration: 30 day, Stop date: 06/15/13 13:17:00, PRN Line Flush BD Normal 10 mL, No Longer Anusha Saline Flush Route: IV, Active 2013 [facility] Drug Form: INJ, PRN, PRN Line Flush, Start date: 05/16/13 12:17:00, Duration: 30 day, Stop date: 06/15/13 13:16:00([facility] e as: BD Posiflush) Robitussin-AC 5 ml, Route: No Longer Anusha oral syrup PO, Drug Active 2013 [facility] Form: SYRP, Dosing Weight 80.909, kg, Q4H, PRN Cough/Conges tion, Start date: 05/16/13 12:04:00, Duration: 30 day, Stop date: 06/15/13 12:03:00(cod eine-guaifen esin 20-200mg/10m l LIQ) (Same As: Robitussin AC) predniSONE 20 20 mg, 1 PO Active Hinojosa Anusha mg oral tablet tab, PO, 2012 [facility] BID, 14 tab, Substitution Allowed, TAB DuoNeb 3 ml, INHALATION Active Hinojosa Anusha inhalation INHALATION, 2012 [facility] solution Q4H, 120 ea, Substitution Allowed, Maintenance, SOLN DuoNeb 3 ml, Route: NEB No Longer Hinojosa 09/11/ Anusha inhalation NEB, Drug Active 2012 [facility] solution Form: SOLN, Dosing Weight 80.028, kg, RQ4H, Start date: 09/11/12 15:00:00, Duration: 30 day, Stop date: 10/11/12 11:00:00 albuterol-iprat 3 ml, INHALATION Active Ellis ty ropium 2.5-0.5 INHALATION, 2012 Hospi vasquez mg inhalation QID, 30 ea, solution Substitution Allowed, Maintenance, SOLN Combivent 2 puff, INHALER Active Anusha inhalation INHALER, 2012 [facility] aerosol with QID, 14 gm, adapter Substitution [...] Anusha 500 mg oral tab, PO, 2012 [facility] tablet Daily, 7 tab, Substitution Allowed predniSONE 20 20 mg, 1 PO Active Anusha mg oral tablet tab, PO, 2012 Hospital BID, Substitution Allowed, TAB Cipro 400 mg, 200 IVPB No Longer Hinojosa Anusha mL, Route: Active 2012 [facility] IVPB, Drug form: INJ, [id number], Dosing Weight 80.028, kg, Start date: 09/11/12 12:00:00, Duration: 30 day, Stop date: 10/11/12 0:00:00 methylPREDNISol 40 mg, 1 mL, IVP No Longer Hinojosa 09/11/ M H Anusha one SODium Route: IVP, Active 2012 [facility] SUCCinate Drug form: INJ, Q8H, Dosing Weight 80.028, kg, Priority: Routine, Start date: 09/11/12 12:00:00, Duration: 30 day, Stop date: 10/11/12 4:00:00 Sodium Chloride 25 mL, IV No Longer Hinojosa 09/11/ Jyoti y 0.9% IV Route: IV, Active [address] [place] [address] Start date: 09/11/12 11:48:00, Duration: 30 day, Stop date: 10/11/12 11:47:00, PRN Line Flush BD Normal 10 mL, IV No Longer Kannan 09/11Rico Tavares Saline Flush Route: IV, [address] Drug Form: INJ, PRN, PRN Line Flush, Start date: 09/11/12 11:48:00, Duration: 30 day, Stop date: 10/11/12 11:47:00 Robitussin-AC 5 ml, Route: PO No Longer Kannan 09/11/ PATTIE Tavares oral syrup PO, Drug Active 2012 [facility] Form: SYRP, Dosing Weight 80.028, kg, Q4H, PRN Cough/Conges tion, Start date: 09/11/12 11:36:00, Duration: 30 day, Stop date: 10/11/12 11:35:00 NS 1,000 mL 1,000 mL, IV No Longer Kannan 09/11Rico Tavares Rate: [address] [address] Hospital ml/hr, Infuse over: 10 hr, Route: [...] Assertion Drug Active Data migr ated from [employer] on 07/10/14. Originally documented as KEFLEX. Anusha <sup>1, allergy 5 [facility]sup> cephalexin Assertion Drug Active Data migr ated from [employer] on 05/11/16. Originally documented as Keflex. Mischer <sup>2, 3, allergy 7 Data migrated from [employer] on 07/10/14. Originally documented as KEFLEX. Neuro 4</sup> exudative dermat itis cephalexin Assertion Drug Active Data migr ated from [employer] on 05/11/16. Originally documented as Kef[employer]. [facility] <sup>1, 2, allergy 7 Data migrated from [employer] on 07/10/14. Originally documented as [employer]EF[employer]. Hospital [...] ELECTROLYTE CO2 26 24 - 32 06/24 Hospital ELECTROLYTE Chloride Lvl 97 95 - [...] 12.7 10.0 - 06/24 [facility] S 20.0 [facility] ELECTROLYTE BUN 7 7 - 22 06/24 [facility] S [facility] ELECTROLYTE Glucose Lvl 101 70 - 99 06/24 An[facility] S [facility] BACTERIAL - Strep Negative Negative 06/23 SEROLOGY pneumoniae (06/23/16 10:36 AM) H ospital Ag BACTERIAL - Source Strep Cerebral 06/23 [facility] Fluid BODY FLUIDS Glucose CSF 50 [...] S Lvl Hospital ELECTROLYTE eGFR 97 06/23 Comment: The Hospital eGFR is calculated using [...] ELECTROLYTE CO2 19 24 - 32 06/23 [facility] ELECTROLYTE Chloride Lvl 98 95 - [...] Calcium Lvl 8.0 8.5 - 10.5 06/22 [facility] CHEM PANEL eGFR 97 06/22 Result [...] Hospital HEMATOLOGY WBC 8.3 3.7 - 10.4 04/12 [facility] /2016 Hospital HEMATOLOGY RBC 4.78 4.70 [...] 1+ None Seen 06/22 [facility] *ABN* /2016 [facility] (06/22/16 4:19 AM) HEMATOLOGY Monocytes # 1.0 0.0 - 0.8 06/22 [facility] HEMATOLOGY Basophils 0.2 0.0 - 1.0 06/22 [facility] HEMATOLOGY Monocytes 12.1 2.0 - 12.0 06/22 [facility] HEMATOLOGY Lymphocytes 5.5 20.0 - 06/22 [facility] 40.0 Hospital HEMATOLOGY Segs 81.7 45.0 - 06/22 [facility] 75.0 [facility] HEMATOLOGY Eosinophils 0.5 0.0 - 4.0 06/22 [facility] HEMATOLOGY Lymphocytes 0.5 1.0 - 5.5 06/22 [facility] # /2016 [facility] HEMATOLOGY Segs-Bands # 6.8 1.5 - 8.1 [...] Negative Negative 06/21 [facility] STOOL *NA* /2016 [facility] (06/21/16 5:17 PM) URINE AND UA Ketones 80 mg/dL Negative 06/21 [facility] STOOL mg/dL Hospital URINE AND UA Turbidity Slight Clear 06/21 [facility] STOOL *ABN* /2016 Hospital (06/21/16 5:17 PM) URINE AND UA pH 5.0 5.0 - 8.0 06/21 [facility] STOOL [facility] URINE AND UA Spec Grav 1.023 <=1.030 [...] Occasional Few /LPF 06/21 [facility] STOOL /LPF [facility] URINE AND UA Leuk Est Negative Negative 06/21 [facility] STOOL (06/21/16 5:17 PM) Hospit al URINE AND UA Bacteria Occasional None Seen 06/21 Ka ty STOOL /HPF /HPF Hospital URINE AND UA <=1.0 0.1 - 1.0 06/21 [facility] STOOL Urobilinogen mg/dL [facility] CARDIAC Troponin-I 0.02 0.00 - 06/21 [facility] ENZYMES 0.40 [facility] CARDIAC CK MB <0.5 0.5 - 3.6 06/21 [facility] ENZYMES [facility] CARDIAC Total CK 49 12 - 191 06/21 [facility] ENZYMES [facility] CARDIAC CK MB Index <1.0 0.0 - 2.5 06/21 [facility] ENZYMES [facility] CHEM PANEL B/C Ratio 25 6 - 25 06/21 [facility] CHEM PANEL Globulin 3.6 2.7 - 4.2 06/21 [facility] CHEM PANEL A/G Ratio 0.9 0.7 - 1.6 06/21 [facility] CHEM PANEL Alk Phos 56 39 - 136 06/21 [facility] CHEM PANEL AST 24 0 - 37 06/21 Hospital CHEM PANEL Bili Total 0.7 0.2 - 1.3 06/21 [facility] CHEM PANEL Albumin Lvl 3.2 3.5 - 5.0 06/21 [facility] CHEM PANEL ALT 31 0 - 65 06/21 [facility] CHEM PANEL Total 6.8 6.4 - 8.4 06/21 [facility] HEMATOLOGY PT 12.4 12.0 - 06/21 [facility] 14.7 [facility] HEMATOLOGY INR 0.91 0.85 - 06/21 [facility] 1.17 Hospital HEMATOLOGY MPV 9.2 7.4 - 10.4 06/21 [facility] HEMATOLOGY RDW 13.6 11.5 - 06/21 [facility] [...] HEMATOLOGY WBC 10.1 3.7 - 10.4 06/21 [facility] HEMATOLOGY RBC 4.83 4.70 - 06/21 [facility] 6.10 Hospital HEMATOLOGY PTT 28.2 22.9 - 06/21 [facility] 35.8 Hospital HEMATOLOGY Monocytes # 1.0 0.0 - 0.8 06/21 Hospital HEMATOLOGY Segs 85.4 45.0 - 06/21 [facility] 75.0 [facility] HEMATOLOGY Basophils 0.3 0.0 - 1.0 06/21 Hospital HEMATOLOGY Eosinophils 0.2 0.0 - 4.0 [...] 06/21 [facility] SEROLOG[facility] (06/21/16 4:15 PM[facility] - Influ A Negative Negative 06/21 [facility] SER[facility] (06/21/16 4:15 PM) [facility] CHEM PANEL eGFR 92 05/18 Result Comment: [...] PANEL Alk Phos 49 39 - 136 / Hospital CHEM PANEL Bili Total 0.6 0.2 - 1.3 05/18 Hospital CHEM PANEL Total 5.0 6.4 - 8.4 05/18 Hospital CHEM PANEL AST 23 0 - 37 / Hospital CHEM PANEL CO2 23 24 - [...] Hospital CHEM PANEL AGAP 14.6 10.0 - 03/08 [facility] 20.0 [facility] CHEM PANEL Calcium Lvl 8.0 8.5 - 10.5 03/ Hospital CHEM PANEL Potassium 3.6 3.5 - 5.1 03 [facility] Lvl [facility] CHEM PANEL Chloride Lvl 110 95 - 109 03/ [facility] CHEM PANEL Glucose Lvl 95 70 - 99 03 Hospital CHEM PANEL Sodium Lvl 144 135 - 145 03/ Hospital CHEM PANEL BUN 8 7 - 22 03/ [facility] HEMATOLOGY Eosinophils 3.1 0.0 - 4.0 03/08 [facility] HEMATOLOGY Lymphocytes 1.4 1.0 - 5.5 03/ [facility] # [facility] HEMATOLOGY Segs-Bands # 3.2 1.5 - 8.1 03 [facility] HEMATOLOGY Monocytes 11.9 2.0 - 12.0 03/ [facility] HEMATOLOGY Basophils 0.4 0.0 - 1.0 03/ [facility] HEMATOLOGY Macrocyte 1+ None Seen 05/18 [facility] *ABN* /2016 [facility] (05/18/16 5:43 AM) HEMATOLOGY Eosinophils 0.2 0.0 - 0.5 03/08 [facility] # [facility] HEMATOLOGY Monocytes # 0.6 0.0 - 0.8 03/ [facility] HEMATOLOGY Lymphocytes 25.2 20.0 - 03/08 [facility] [...] 1+ None Seen 05/17 [facility] *ABN* /2016 [facility] (05/17/16 1:08 PM) HEMATOLOGY Monocytes # 0.9 0.0 - 0.8 05/17 [facility] HEMATOLOGY Eosinophils 0.1 0.0 - 0.5 03/07 [facility] # Hospital HEMATOLOGY Segs-Bands # 6.0 [...] Hospital ELECTROLYTE AST 33 0 - 37 05/17 [facility] S Hospital ELECTROLYTE Alk Phos 68 [...] Hospital ELECTROLYTE CO2 24 24 - 32 05/17 [facility] S [facility] ELECTROLYTE Total 7.4 6.4 - 8.4 05/17 [facility] S [facility] ELECTROLYTE Creatinine 0.89 0.50 - 05/17 [facility] S Lvl 1.40 /2016 Hospital ELECTROLYTE BUN 5 7 - 22 05/17 [facility] Hospital ELECTROLYTE Glucose Lvl 89 70 - 99 05/17 [facility] Hospital ELECTROLYTE eGFR 87 05/17 [...] Calcium Lvl 8.8 8.5 - 10.5 07/18 [facility] CHEM PANEL Creatinine 0.78 0.50 - 05/08 [facility] Lvl 1.40 /2015 Hospital CHEM PANEL Glucose Lvl 181 70 - 99 05/08 [facility] /2015 Hospital CHEM PANEL Chloride Lvl 104 95 - 109 05/08 [facility] /2015 Hospital CHEM PANEL BUN 19 7 - 22 05/08 [facility] /2015 Hospital CHEM PANEL Sodium Lvl 139 135 - 145 05/08 [facility] CHEM PANEL Potassium 4.5 3.5 - 5.1 05/08 [facility] Lvl /2015 Hospital CHEM PANEL CO2 28 24 - 32 05/08 [facility] /2015 Hospital CHEM PANEL AGAP 11.5 10.0 - 0508 [facility] 20.0 [facility] HEMATOLOGY Macrocyte 1+ None Seen 07/18 [facility] *ABN* /2015 Hospital (07/19/15 2:27 PM) HEMATOLOGY Basophils # 0.2 0.0 - 0.2 05/ [facility] /2015 [facility] HEMATOLOGY Segs-Bands # 11.8 1.5 - 8.1 07/18 [facility] HEMATOLOGY Eosinophils 0.0 0.0 - 0.5 05/08 [facility] # /2016 Hospital HEMATOLOGY Monocytes # 0.4 0.0 - 0.8 0508 [facility] HEMATOLOGY Basophils 1.4 0.0 - 1.0 05/08 [facility] /2015 Hospital HEMATOLOGY Lymphocytes 0.3 1.0 - 5.5 05 [facility] # /2016 Hospital HEMATOLOGY Lymphocytes 2.0 20.0 - 0508 [facility] 40.0 [facility] HEMATOLOGY Segs 93.2 45.0 - 0508 [facility] 75.0 [facility] HEMATOLOGY Plt Morph Normal 07/18 [facility] (07/19/15 2:27 PM) [facility]ospita [facility] HEMATOLOGY RBC Morph Normal 07/18 [facility] (07/19/15 2:27 PM) [facility] HEMATOLOGY Eosinophils 0.0 0.0 - 4.0 05/08 [facility] /2015 [facility] HEMATOLOGY Monocytes 3.4 2.0 - 12.0 05/08 [facility] /2016 Hospital HEMATOLOGY MCH 32.9 27.0 - 05/08 [facility] 31.0 Hospital HEMATOLOGY MCV 101.1 80.0 - 0508 [facility] 94.0 [facility] HEMATOLOGY MCHC 32.6 32.0 - 05/08 [facility] 36.0 /2015 Hospital HEMATOLOGY WBC 12.6 3.7 - 10.4 07/18 [facility] /2015 Hospital HEMATOLOGY RBC 4.21 4.70 - 07/18 [facility] 6.10 [facility] HEMATOLOGY Hgb 13.9 14.0 - 07/18 [facility] 18.0 Hospital HEMATOLOGY Hct 42.6 42.0 - 07/18 [facility] 54.0 Hospital HEMATOLOGY MPV 8.4 7.4 - 10.4 07/18 [facility] /2015 [facility] HEMATOLOGY Platelet 165 133 - 450 07/18 [facility] HEMATOLOGY RDW 14.6 11.5 - 07/18 [facility] 14.5 Hospital ELECTROLYTE AGAP 9.3 10.0 - 07/15 [facility] S 20.0 [facility] ELECTROLYTE B/C Ratio 14 6 - 25 07/15 [facility] S [facility] ELECTROLYTE Globulin 3.2 2.0 - 4.0 07/15 [facility] S [facility] ELECTROLYTE A/G Ratio 0.9 0.7 - 1.6 07/15 [facility] S [facility] ELECTROLYTE Potassium 4.3 3.5 - 5.1 07/15 [facility] S Lvl /2015 [facility] ELECTROLYTE Chloride Lvl 106 95 - 109 05 [facility] ELECTROLYTE Sodium Lvl 139 135 - 145 05 [facility] S [facility] ELECTROLYTE eGFR 76 07/15 Result Comment: The [...] 70 - 99 05/05 [facility] S /2015 [facility] ELECTROLYTE BUN 14 7 - 22 05/05 [facility] S /2016 [facility] ELECTROLYTE Creatinine 1.01 0.50 - 05/05 [facility] S Lvl 1.40 /2015 [facility] ELECTROLYTE Calcium Lvl 8.2 8.5 - 10.5 05/05 Ka ty S /2015 [facility] ELECTROLYTE CO2 28 24 - 32 05/05 [facility] S /2015 [facility] ELECTROLYTE Albumin Lvl 3.0 3.5 - 5.0 05/05 [facility] S [facility] ELECTROLYTE ALT 29 0 - 65 05/05 [facility] S /2015 [facility] ELECTROLYTE Total 6.2 6.4 - 8.4 05/05 [facility] S Protein [facility] ELECTROLYTE Bili Total 0.4 0.2 - 1.3 05/05 [facility] S [facility] ELECTROLYTE AST 36 0 - 37 05/05 [facility] S [facility] ELECTROLYTE Alk Phos 56 39 - 136 05/05 [facility] S [facility] HEMATOLOGY Lymphocytes 2.3 20.0 - 05/05 [facility] 40.0 [facility] HEMATOLOGY Segs-Bands # 10.4 1.5 - 8.1 05/05 J[facility] y [facility] HEMATOLOGY Basophils 0.0 0.0 - 1.0 05/05 [facility] /2016 [facility] HEMATOLOGY Monocytes 3.2 2.0 - 12.0 05/05 An[facility] 2016 [facility] HEMATOLOGY Segs 94.5 45.0 - 05/05 [facility] 75.0 Hospital HEMATOLOGY Basophils # 0.0 0.0 - 0.2 05/05 [facility] /2016 [facility] HEMATOLOGY Eosinophils 0.0 0.0 - 0.5 05/05 [facility] # /2016 Hospital HEMATOLOGY Eosinophils 0.0 0.0 - 4.0 05/05 [facility] /2016 [facility] HEMATOLOGY Monocytes # 0.3 0.0 - 0.8 05/05 [facility] /2016 [facility] HEMATOLOGY Lymphocytes 0.3 1.0 - 5.5 05/05 [facility] # /2016 [facility] HEMATOLOGY MCHC 33.3 32.0 - 05/05 [facility] 36.0 /2016 Hospital HEMATOLOGY MPV 8.4 7.4 - 10.4 05/05 [facility] /2016 [facility] HEMATOLOGY Platelet 167 133 - 450 05/05 [facility] HEMATOLOGY MCH 33.6 27.0 - 05 [facility] 31.0 /2015 [facility] HEMATOLOGY RDW 15.5 11.5 - 05 [facility] 14.5 [facility] HEMATOLOGY Hgb 13.6 14.0 - 07/15 [facility] 18.0 [facility] HEMATOLOGY RBC 4.05 4.70 - 07/15 [facility] 6.10 Hospital HEMATOLOGY MCV 100.9 80.0 - 07/15 [facility] 94.0 /2015 Hospital HEMATOLOGY Hct 40.9 42.0 - 05 [facility] 54.0 /2015 [facility] HEMATOLOGY WBC 11.0 3.7 - 10.4 07/15 Hospital CHEM PANEL BUN 14 7 - 22 05 [facility] CHEM PANEL Sodium Lvl 143 135 - 145 05 [facility] CHEM PANEL Glucose Lvl 140 70 - 99 07/14 Hospital CHEM PANEL Chloride Lvl 107 95 - 109 07/14 Hospital CHEM PANEL Potassium 4.1 3.5 - 5.1 07/14 [facility] Lvl [facility] CHEM PANEL CO2 25 24 - 32 05 Hospital CHEM PANEL Albumin Lvl 3.5 3.5 - 5.0 07/14 [facility] CHEM PANEL Calcium Lvl 8.9 8.5 - [...] PANEL AST 35 0 - 37 05/ [facility] CHEM PANEL Creatinine 1.17 0.50 - 05/ [facility] Lvl 1.40 /2015 [facility] CHEM PANEL ALT 40 0 - 65 05/ [facility] CHEM PANEL Total 7.0 6.4 - 8.4 05/ [facility] Protein [facility] CHEM PANEL Alk Phos 66 39 - 136 05/ [facility] CHEM PANEL Bili Total 0.4 0.2 - 1.3 05/ [facility] CHEM PANEL AGAP 15.1 10.0 - 05 [facility] 20.0 [facility] CHEM PANEL Globulin 3.5 2.0 - 4.0 05/ [facility] CHEM PANEL A/G Ratio 1.0 0.7 - 1.6 05/ [facility] CHEM PANEL B/C Ratio 12 6 - 25 05/ [facility] HEMATOLOGY INR 0.98 0.85 - 05 [facility] 1.17 [facility] HEMATOLOGY PT 13.3 12.0 - 05 [facility] 14.7 [facility] HEMATOLOGY Platelet 218 133 - 450 05/ [facility] HEMATOLOGY MPV 8.1 7.4 - 10.4 05/ [facility] HEMATOLOGY Hct 45.9 42.0 - 05 [facility] 54.0 /2015 [facility] HEMATOLOGY MCHC 32.4 32.0 - 05 [facility] 36.0 Hospital HEMATOLOGY RDW 15.2 11.5 - 05 [facility] 14.5 /2015 Hospital HEMATOLOGY MCV 101.9 80.0 - 05 [facility] 94.0 /2015 Hospital HEMATOLOGY MCH 33.0 27.0 - 05/ [facility] 31.0 Hospital HEMATOLOGY WBC 17.8 3.7 - 10.4 05/ [facility] HEMATOLOGY RBC 4.51 4.70 - 05 [facility] 6.10 [facility] HEMATOLOGY Hgb 14.9 14.0 - 05/ [facility] 18.0 Hospital HEMATOLOGY Monocytes # 1.1 0.0 - 0.8 05/ MH [facility] HEMATOLOGY Eosinophils 0.0 0.0 - 0.5 07/14 [facility] # /2015 Hospital HEMATOLOGY Segs-Bands # 15.4 1.5 - 8.1 07/14 [facility] HEMATOLOGY Lymphocytes 1.4 1.0 - 5.5 07/14 MH [facility] # /2015 Hospital HEMATOLOGY Eosinophils 0.0 0.0 - 4.0 07/14 [facility] HEMATOLOGY Basophils # 0.0 0.0 - 0.2 07/14 [facility] HEMATOLOGY Basophils 0.1 0.0 - 1.0 07/14 [facility] HEMATOLOGY Macrocyte 1+ None Seen 07/14 [facility] *ABN* /2015 [facility] (07/15/15 6:15 PM) HEMATOLOGY Monocytes 6.0 2.0 - 12.0 07/14 [facility] HEMATOLOGY Plt Morph Normal 07/14 [facility] (07/15/15 6:15 PM) [facility] HEMATOLOGY RBC Morph Normal 07/14 [facility] (07/15/15 6:15 PM) /2015 [facility] HEMATOLOGY Lymphocytes 7.7 20.0 - 07/14 [facility] 40.0 [facility] HEMATOLOGY Segs 86.2 45.0 - 07/14 [facility] 75.0 [facility] CHEM PANEL eGFR 88 07/13 Result Comment: [...] AGAP 11.4 10.0 - 07/13 [facility] 20.0 [facility] CHEM PANEL Calcium Lvl 8.9 8.5 [...] HEMATOLOGY Basophils # 0.0 0.0 - 0.2 05/03 [facility] HEMATOLOGY Eosinophils 0.0 0.0 - 0.5 05/ [facility] # /2015 Hospital HEMATOLOGY Monocytes # 0.1 0.0 - 0.8 05/ Hospital HEMATOLOGY Monocytes 1.9 2.0 - 12.0 05/ [facility] HEMATOLOGY Segs 92.6 45.0 - 05/03 [facility] 75.0 [facility] HEMATOLOGY Lymphocytes 5.5 20.0 - 0503 [facility] 40.0 [facility] HEMATOLOGY Basophils 0.0 0.0 - 1.0 05/ [facility] HEMATOLOGY Eosinophils 0.0 0.0 - 4.0 05/ [facility] HEMATOLOGY Segs-Bands # 5.1 1.5 - 8.1 05/ [facility] HEMATOLOGY Lymphocytes 0.3 1.0 - 5.5 05/ [facility] # /2015 Hospital HEMATOLOGY MCV 100.8 80.0 - 05/03 [facility] 94.0 /2015 Hospital HEMATOLOGY Platelet 147 133 - 450 05/ [facility] HEMATOLOGY MPV 8.1 7.4 - 10.4 05/ [facility] HEMATOLOGY RDW 14.9 11.5 - 05/03 [facility] 14.5 [facility] HEMATOLOGY Hgb 13.6 14.0 - 05/03 [facility] 18.0 [facility] HEMATOLOGY RBC 4.11 4.70 - 05/03 [facility] 6.10 /2016 Hospital HEMATOLOGY Hct 41.5 42.0 - 07/13 [facility] 54.0 /2015 Hospital HEMATOLOGY WBC 5.5 3.7 - 10.4 05/ [facility] /2015 Hospital HEMATOLOGY MCH 33.0 27.0 - 05 MH [facility] 31.0 /2015 Hospital HEMATOLOGY MCHC 32.7 32.0 - 07/13 MH [facility] 36.0 /2015 Hospital CHEM PANEL eGFR [...] 0.50 - 07/13 [facility] Lvl 1.40 /2015 [facility] HEMATOLOGY Platelet 159 133 - 450 07/13 Hospital HEMATOLOGY PTT 26.6 22.9 - 07/13 [facility] 35.8 /2016 Hospital CARDIAC Total CK 70 12 - 191 07/12 [facility] ENZYMES /2015 Hospital CARDIAC Troponin-I <0.02 0.00 - 05/ [facility] ENZYMES 0.40 /2016 Hospital CARDIAC CK MB 1.7 0.5 - [...] CHEM PANEL Globulin 3.6 2.0 - 4.0 07/12 Hospital CHEM PANEL [...] 166 133 - 450 05/ MH [facility] HEMATOLOGY MCHC 33.1 32.0 - 05/ MH [facility] 36.0 /2015 Hospital HEMATOLOGY WBC 5.8 3.7 - 10.4 05/ [facility] /2015 Hospital HEMATOLOGY MCV 99.9 80.0 - 05/ [facility] 94.0 /2015 Hospital HEMATOLOGY MCH 33.0 27.0 - 05/ [facility] 31.0 /2015 Hospital HEMATOLOGY Hct 42.8 42.0 - 05/ [facility] 54.0 Hospital HEMATOLOGY RBC 4.28 4.70 - 07/12 [facility] 6.10 [facility] HEMATOLOGY Hgb 14.2 14.0 - 05 [facility] 18.0 [facility] HEMATOLOGY Monocytes 5.8 2.0 - 12.0 05/ [facility] HEMATOLOGY Eosinophils 0.0 0.0 - 4.0 05/ [facility] HEMATOLOGY Lymphocytes 10.7 20.0 - 05/ [facility] 40.0 [facility] HEMATOLOGY Monocytes # 0.3 0.0 - 0.8 05/ [facility] /2015 [facility] HEMATOLOGY Lymphocytes 0.6 1.0 - 5.5 05/ [facility] # /2015 Hospital HEMATOLOGY Eosinophils 0.0 0.0 - 0.5 05/ [facility] # /2015 Hospital HEMATOLOGY Segs 83.4 45.0 - 05/ [facility] 75.0 [facility] HEMATOLOGY Segs-Bands # 4.8 1.5 - 8.1 05/ [facility] HEMATOLOGY Basophils 0.1 0.0 - 1.0 05/ [facility] HEMATOLOGY Basophils # 0.0 0.0 - 0.2 05/ [facility] CHEM PANEL Magnesium 2.2 1.8 - 2.4 05/06 MH [facility] Lvl [facility] CHEM PANEL eGFR 91 05/06 Result Comment: [...] CHEM PANEL Globulin 3.1 2.0 - 4.0 05/06 [facility] CHEM PANEL A/G Ratio 0.9 0.7 - 1.6 05/06 Hospital CHEM PANEL Glucose Lvl 170 70 - 99 05/06 Hospital CHEM PANEL Bili Total 0.3 0.2 - 1.3 05/06 Hospital CHEM PANEL AGAP 14.1 10.0 - 05/06 [facility] 20.0 [facility] CHEM PANEL B/C Ratio 25 6 - 25 05/06 Hospital CHEM PANEL Creatinine 0.79 0.50 - 05/06 MH [facility] Lvl 1.40 /2015 Hospital CHEM PANEL BUN 20 7 - 22 05/06 Hospital CHEM PANEL CO2 25 24 - 32 05/06 Hospital CHEM PANEL Calcium Lvl 8.4 8.5 - 10.5 05/06 Hospital CHEM PANEL Total 6.0 6.4 - [...] Hospital HEMATOLOGY Hgb 14.1 14.0 - 05/06 [facility] 18.0 [facility] HEMATOLOGY RBC 4.17 4.70 - 05/06 [facility] 6.10 [facility] HEMATOLOGY RDW 13.8 11.5 - 05/06 [facility] 14.5 [facility] HEMATOLOGY MCHC 33.5 32.0 - 05/06 [...] Lvl 141 135 - 145 05/04 [facility] CHEM PANEL AGAP 11.3 10.0 - 05/04 [facility] 20.0 /2015 Hospital HEMATOLOGY Hct 45.4 42.0 - 05/04 [facility] 54.0 /2015 Hospital HEMATOLOGY MCH 33.8 27.0 - 05/04 [facility] 31.0 [facility] HEMATOLOGY MCV 101.0 80.0 - 05/04 [facility] 94.0 [facility] HEMATOLOGY MPV 8.7 7.4 - 10.4 05/04 [facility] HEMATOLOGY MCHC 33.5 32.0 - 05/04 [facility] 36.0 /2015 [facility] HEMATOLOGY Hgb 15.2 14.0 - 05/04 [facility] 18.0 [facility] HEMATOLOGY RBC 4.50 4.70 - 05/04 [facility] 6.10 Hospital HEMATOLOGY WBC 12.5 3.7 - 10.4 05/04 [facility] /2015 [facility] HEMATOLOGY Platelet 153 133 - 450 05/04 [facility] HEMATOLOGY RDW 14.0 11.5 - 05/04 [facility] 14.5 /2015 Hospital ELECTROLYTE AGAP 11.8 10.0 - 05/16 [facility] S 20.0 Hospital ELECTROLYTE Chloride Lvl 107 95 - 109 05/16 [facility] ELECTROLYTE Sodium Lvl 142 135 - 145 05/16 [facility] S [facility] ELECTROLYTE Potassium 3.8 3.5 - 5.1 05/16 [facility] S Lvl Hospital ELECTROLYTE eGFR 88 05/16 <sup>1</sup>R [facility] Comment: The eGFR is calculated using [...] Lvl 104 70 - 99 05/16 <sup>2</sup>I nterpretive Hospital Data: Adult reference range values reflect the clinical guidelines
of the [employer]. ELECTROLYTE CO2 27 24 - 32 05/16 [facility] S [facility] ELECTROLYTE Calcium Lvl 8.9 8.5 - 10.5 05/16 [facility] S [facility] ELECTROLYTE BUN 10 7 - 22 05/16 [facility] S [facility] ELECTROLYTE Creatinine 0.9 0.5 - 1.4 05/16 [facility] S Lvl [facility] HEMATOLOGY Monocytes # 0.6 0.0 - 0.8 05/16 [facility] HEMATOLOGY Eosinophils 0.1 0.0 - 0.5 05/16 [facility] # /2013 [facility] HEMATOLOGY Basophils # 0.0 0.0 - 0.2 05/16 Hospital HEMATOLOGY Eosinophils 1.6 0.0 - 4.0 05/16 [facility] HEMATOLOGY Monocytes 7.2 2.0 - 12.0 05/16 [facility] HEMATOLOGY Segs-Bands # 6.2 1.5 - 8.1 05/16 [facility] HEMATOLOGY Basophils 0.2 0.0 - 1.0 05/16 [facility] HEMATOLOGY Lymphocytes 1.1 1.0 - 5.5 05/16 [facility] # /2013 Hospital HEMATOLOGY Lymphocytes 14.2 20.0 - / [facility] 40.0 /2013 Hospital HEMATOLOGY Segs 76.8 45.0 - 05/16 [facility] 75.0 Hospital HEMATOLOGY MCV 98.1 80.0 - 05/16 [facility] 94.0 /2013 Hospital HEMATOLOGY Hgb 13.9 14.0 - 05/16 [facility] 18.0 [facility] HEMATOLOGY MCH 33.3 27.0 - 05/16 [facility] 31.0 /2013 Hospital HEMATOLOGY Hct 40.9 42.0 - 05/16 [facility] 54.0 /2013 Hospital HEMATOLOGY MCHC 34.0 32.0 - 05/16 [facility] 36.0 /2013 Hospital HEMATOLOGY Platelet 149 133 - 450 05/16 [facility] /2013 [facility] HEMATOLOGY RDW 13.7 11.5 - 05/16 [facility] 14.5 /2013 Hospital HEMATOLOGY MPV 8.9 7.4 - 10.4 05/16 [facility] HEMATOLOGY RBC X 10x6 4.17 4.70 - 05/16 [facility] 6.10 [facility] HEMATOLOGY WBC X 10x3 8.0 3.7 - 10.4 05/16 [facility] HEMATOLOGY Large Plt Slight None Seen 09/12 [facility] *ABN* Hospital (09/12/2012 03:55:40) HEMATOLOGY Tear Cell Slight None Seen 09/12 [facility] *ABN* [facility] (09/12/2012 03:55:40) HEMATOLOGY Elliptocyte Slight None Seen 09/12 [facility] An[facility] *ABN* [facility] (09/12/2012 03:55:40) HEMATOLOGY Basophils # 0.0 0.0 - 0.2 09/12 Normal [facility] HEMATOLOGY Macrocyte 1+ None Seen 09/12 [facility] An[facility] *ABN* [facility] (09/12/2012 03:55:40) HEMATOLOGY Monocytes # 0.5 0.0 - 0.8 09/12 Normal [facility] HEMATOLOGY Eosinophils 0.0 0.0 - 0.5 09/12 Normal [facility] HEMATOLOGY Lymphocytes 0.8 1.0 - 5.5 09/12 LOW [facility] HEMATOLOGY Lymphocytes 4.6 20.0 - 09/12 L[facility] 40.0 [facility] HEMATOLOGY Monocytes 3.1 2.0 - 12.0 09/12 Normal [facility] HEMATOLOGY Segs-Bands # 15.4 1.5 - 8.1 [...] HEMATOLOGY Hgb 13.3 14.0 - 09/12 [facility] 18.0 [facility] HEMATOLOGY WBC 16.7 3.7 - 10.4 09/12 [facility] /2012 Hospital HEMATOLOGY RBC 4.11 4.70 - 09/12 LOW [facility] 6.10 /2012 Hospital HEMATOLOGY MCHC 33.3 32.0 - 07 Normal [facility] 36.0 /2012 Hospital HEMATOLOGY RDW 15.0 11.5 - 09/12 [facility] 14.5 /2012 Hospital HEMATOLOGY Platelet 114 133 - 450 09/12 LOW [facility] CHEMISTRY eGFR 78 09/11 NA <sup>1</sup>R [facility] Comment: The eGFR is calculated using [...] 106 95 - 109 07/ Normal [facility] CHEMISTRY CO2 27 24 - 32 07 Normal [facility] CHEMISTRY Creatinine 1.0 0.5 - 1.4 09/11 Normal [facility] CHEMISTRY Calcium Lvl 9.0 8.5 - 10.5 / Normal [facility] /2012 Hospital CHEMISTRY Sodium Lvl 143 135 - 145 07/ Normal [facility] CHEMISTRY Potassium 4.4 3.5 - 5.1 09/11 Normal [facility] CHEMISTRY BUN 15 7 - 22 09/11 Normal [facility] /2012 Hospital CHEMISTRY Glucose Lvl 139 70 - 99 09/11 [facility] <sup>2</sup>I [facility] Data: Adult reference range values reflect the clinical guidelines
of the [employer]. CHEMISTRY AGAP 14.4 10.0 - [...] HEMATOLOGY RBC 4.53 4.70 - 07 LOW [facility] 6.10 [facility] HEMATOLOGY Basophils # 0.0 0.0 - 0.2 / Normal [facility] /2012 Hospital HEMATOLOGY Eosinophils 0.0 0.0 - 0.5 07/ Normal [facility] # /2013 [facility] HEMATOLOGY Monocytes # 0.6 0.0 - 0.8 / Normal [facility] /2012 [facility] HEMATOLOGY Monocytes 3.2 2.0 - 12.0 / Normal [facility] /2012 [facility] HEMATOLOGY Segs-Bands # 17.1 1.5 - 8.1 09/11 HI Jyoti y /2012 [facility] HEMATOLOGY Lymphocytes 0.7 1.0 - 5.5 / LOW [facility] # /2013 [facility] HEMATOLOGY Eosinophils 0.0 0.0 - 4.0 / Normal [facility] /2012 [facility] HEMATOLOGY Basophils 0.0 0.0 - 1.0 / Normal [facility] /2012 [facility] HEMATOLOGY Segs 92.9 45.0 - 09/11 HI [facility] 75.0 /2012 [facility] HEMATOLOGY Plt Morph Normal 09/11 Normal [facility] (09/11/2012 12:30:00) Ho spital HEMATOLOGY Lymphocytes 3.9 20.0 - 09/11 LOW [facility] 40.0 /2012 [facility] HEMATOLOGY RBC Morph Normal 09/11 Normal [facility] (09/11/2012 12:30:00) Ho spital Pathology Reports No Data Provided for This Section Diagnostic Reports Report Value Date Source Spine lumbar puncture FLUOROSCOPIC DIRECTED LUMBAR PUNCTURE 06/11 [facility] w fluoro DX HISTORY: Meningitis.. FLUORO TIME: [...] No immediate complication evident. END REPORT SL: [id number] Brain w/wo contrast MRI head without and with contrast. 06/23/[address] [place] [address] MRI Indication: Headache for pas t 2 [...] other etiologies can also be considered. SL: [id number] Chest Pulmonary PROCEDURE: CTA CHEST 06/21/2016 [facility] [...] CHEST, 06/21/2016 2:29 PM CDT : 7 [facility] HISTORY: Dizziness. COMPARISON: None FINDINGS: Heart size and vascularity a re within normal limits. Emphysematous changes with hyperlucency and distortion of pulmonary architecture. The lungs are clear of focal consolidation. No effusion, pneumothorax, or acute osseous abnormality. IMPRESSION: 1. No radiographic evidence of acute cardiopulmo nary process. SL: [id number] Brain wo contrast CT Addendum: Addendum: 06/21/2016 [facility] I reviewed this examination and concur with [...] to chronic small vessel ischemic changes. 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 Wound infection [...] 1view DX One view portable chest: 07/15/2015 [facility] HISTORY: Dyspnea. FINDINGS: No active process in the chest. Exam is stable compared with 07/13/2015. SL: WR2-M Chest 1view DX Patient Name: SHIRLENE NICHOLAS. 07/13/2015 [facility] : 1945; Age: 70 years y/o; Male. MR: [id number]. Ordering Physician: Maryuri Mariscal MD. PORTABLE CHEST [...] without contrast with high-res olution images. 05/07/2015 [facility] INDICATION: Shortness of thony ath with dyspnea [...] right kidney is partially visualized in the awcmr-au-osce. 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 IMPRESSION: 1. Moderate dependent atelectasis in the lower l obes. 2. Mild emphysematous changes. 3. Atherosclerosis. 4. Partial visualization of right renal cyst. SL: [id number] Chest 1view DX Chest one view 05/04/2015 [facility] HISTORY: Short of breath COMPARISON: 04/25/2014 Lungs [...] 1view DX One view portable chest: 04/25/2014 [facility] HISTORY: Asthma exacerbation. FINDINGS: Lungs are hyperinf lated but clear. The heart and mediastinal contours stable from 05/16/2013. No pleural fluid or pneumothorax. IMPRESSION: No acute finding. SL: 200 Shoulder wo contrast MRI LEFT SHOULDER WITHOUT CONTRAST: 014 [facility] MRI HISTORY: Left shoulder pain. COMPARISON: None. [...] cuff tear. 2. 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 SLAP [...] for fracture. Bobby Sheldon M.D. dg/penrad:10/09/2013 15:52:48 Assistant Men'S Lacrosse Coach: Meeta TORRES Chest 2 views 2 VIEW [...] 06/05/2017 [facility] Weight 68.693 04/24/2017 [facility] BMI Calculated 20.54 04/24/2017 [facility] Height 182.88 cm 04/24/2017 [facility] Heart Rate 92 04/24/2017 [facility] Systolic (mm Hg) 146 04/24/2017 [facility] Diastolic (mm Hg) 89 04/24/2017 [facility] Heart Rate 81 06/28/2016 [facility] 20 [facility]mm Hg) 136 06/28/2016 [facility] Diastolic (mm Hg) 76 06/28/2016 [facility] sp[facility] Temperature Oral (F) 98.5 F 06/28/2016 [facility] Hospital Systolic (mm Hg) 134 06/28/2016 [facility] Diastolic (mm Hg) 75 06/28/2016 [facility] Respitory Rate 20 06/28/2016 [facility] Heart Rate 95 06/28/2016 [facility] Temperature Oral (F) 98.1 F 06/28/2016 [facility] Temperature Oral (F) 97.5 F 06/28/2016 [facility] Hospital Heart Rate 92 06/28/2016 [facility] Systolic (mm Hg) 153 [...] tious Disease Systolic (mm Hg) 142 05/18/2016 [facility] Diastolic (mm Hg) 69 05/18/2016 [facility] spital Heart Rate 70 05/18/2016 [facility] Respitory Rate 18 05/18/2016 [facility] vasquez Temperature Oral (F) 98.5 F 05/18/2016 [facility] Temperature Oral (F) 98.4 F 05/18/2016 [facility] Heart Rate 61 05/18/2016 [facility] Systolic (mm Hg) 154 05/18/2016 [facility] Diastolic (mm Hg) 89 05/18/2016 [facility] spital Respitory Rate 17 05/18/2016 [facility] vasquez Temperature Oral (F) 98.2 F 05/18/2016 [facility] Hospital Respitory Rate 18 05/18/2016 [facility] vasquez Heart Rate 51 05/18/2016 [facility] Systolic (mm Hg) [...] [facility] Heart Rate 65 07/20/2015 [facility] Temperature Oral (F) 98.4 F 07/20/2015 [facility] Hospital Temperature Oral (F) 98.3 F 07/20/2015 [facility] Hospital Respitory Rate 18 07/20/2015 [facility] [...] spital Temperature Oral (F) 97.4 F 07/20/2015 [facility] Height 203.2 cm 07/16/2015 [facility] [...] Oral (F) 98.6 F 07/14/2015 [facility] Hospital Respitory Rate 18 07/14/2015 [facility] Systolic (mm Hg) 136 07/14/2015 [facility] Diastolic (mm Hg) 76 07/14/2015 [facility] Heart Rate 61 07/14/2015 [facility] Temperature Oral (F) 98 F 07/14/2015 [facility] Hospital Temperature Oral (F) 98.2 F 07/14/2015 [facility] Hospital Heart Rate 83 07/14/2015 [facility] [...] l Height 182.88 cm 07/13/2015 [facility] Heart Rate 78 05/07/2015 [facility] Temperature Oral (F) 98 F 05/07/2015 [facility] Systolic (mm Hg) 132 05/07/2015 [facility] Diastolic (mm Hg) 78 05/07/2015 [facility] spital Respitory Rate 18 05/07/2015 [facility] vasquez Temperature Oral (F) 98.1 F 05/07/2015 [facility] Hospital Respitory Rate 18 05/07/2015 [facility]quez Systolic (mm Hg) 125 05/07/2015 [facility] Diastolic (mm Hg) 75 05/07/2015 [facility] Ho [facility] Heart Rate 74 05/07/2015 [facility] Heart Rate 75 05/07/2015 [facility] Systolic (mm Hg) 134 05/07/2015 [facility] Diastolic (mm Hg) 69 05/07/2015 [facility] Respitory Rate 19 05/07/2015 [facility] vasquez Temperature Oral (F) 97.9 F 05/07/2015 [facility] Weight 71.023 05/04/2015 [facility] BMI Calculated 21.24 05/04/2015 [facility] Height 182.88 cm 05/04/2015 [facility] Height 182.88 cm 05/04/2015 [facility] Weight 72.727 05/04/2015 [facility] BMI Calculated 21.75 05/04/2015 [facility]quez Height 72 07/23/2014 [facility] [...] p Temperature Oral (F) 98.1 F 05/18/2013 [facility] Respitory Rate 18 05/18/2013 [facility] vasquez Heart Rate 85 05/18/2013 [facility] Systolic (mm Hg) 116 05/18/2013 [facility] Diastolic (mm Hg) 62 05/18/2013 [facility] Systolic (mm Hg) 118 05/18/2013 [facility] Diastolic (mm Hg) 60 05/18/2013 [facility] Temperature Oral (F) 96.8 F 05/18/2013 [facility] Respitory Rate 18 05/18[facility] 82 05/18/2013 [facility] Di[facility] (mm Hg) 59 05/18/2013 [facility] Temperature Oral (F) 96.5 F 05/18/2013 [facility] Respitory Rate 18 05/18/2013 [facility] Systolic (mm Hg) 114 05/18/2013 [facility] [...] spital Temperature Oral (F) 96.9 F 09/12/2012 [facility] Heart Rate 61 09/12/2012 [facility] Diastolic (mm Hg) 66 09/12/2012 [facility] Systolic (mm Hg) 127 09/12/2012 [facility] Respitory Rate 18 09/12/2012 [facility] Heart Rate 91 09/12/2012 [facility] Temperature Oral (F) 96.3 F 09/12/2012 [facility] Hospital Systolic (mm Hg) 129 09/12/2012 [facility] Diastolic (mm Hg) 63 09/12/2012 [facility] Heart Rate 57 09/12/2012 [facility] Respitory Rate 18 09/12/2012 [facility] Temperature Oral (F) 96.9 F 09/12/2012 [facility] Weight 80.028 09/11/2012 [facility] Height 182.88 cm 09/11/2012 [facility] Encounters Location Location Encounter Encounter Reason Attending ADM DC Stat us Source Details Type Number For Provider Date Date Visit [facility] Inpatient [id number] JOSÉ MIGUEL HINOJOSA 09/11 09/12 Disch arg [facility] ed [facility] Inpatient [id number] _MAPID: José Miguel Hinojosa 05/17 05/18 [facility] Arroyoann 5 [id number] ENCNTRR /2013 [facility] [id number] Hospital 122 [facility] Outpt Diag [id number] Sriram Royal 10/09 10/10 [facility] Outpatient [facility] 0 [facility] Dave Tavares [facility] Office [id number] Ifeanyi11/26 [id number] DeFriece, Philip Reyna MD Group Group [facility] Outpt Diag [id number] Ifeanyi11/27 M [facility] Outpatient Services 1 DeFriece /2013 Ka ty Imaging [facility] Lab Report [id number] Ifeanyi11/28 Damien [id number] DeFriece, Philip Reyna MD Group Group - [facility] Office [id number] Ifeanyi12/03 [facility] [id number] DeFriece, /2013 Philip Reyna MD Group Group [facility] Office [id number] Ifeanyi02/18 [facility] 72502 DeFriece, /2013 Philip Reyna MD Group Group [facility] Office [id number] Ifeanyi 02/20 02/20 [place] Visit [id number] DeFriece, Philip Reyna MD Group Group [facility] Office [id number] Ifeanyi 03/14 03/14 [place] Visit [id number] DeFriece, Philip Reyna MD Group Group [facility] Office [id number] Ifeanyi 07/23 07/23 [place] Visit [id number] DeFriece, Philip Reyna MD Group Group [facility] Outpt Diag [id number] Ifeanyi 07/28 07/29 M H [facility] Outpatient Services 2 DeFriece /2014 Ka [facility] Imaging [facility] Outpt Diag [id number] Ifeanyi 07/31 08/01 M H [facility] Outpatient Services 3 DeFriece /2014 Ka [facility] Outpatient [id number] IFEANYI 04/17 Active [facility] 0 [facility] Inpatient [id number] José Miguel Hinojosa 05/06 05/07 [facility] Que[facility] OBS [id number] Alicia 07/12 07/13 [facility] Quezada Observation 4 Hosp ital [facility] Inpatient [id number] Aliica 07/14 07/19 [facility] Quezada 5 [facility] Outpatient [id number] AXEL 03/03 Active [facility] 1 [facility] Outpatient [id number] AXEL 03/22 Active [facility] 2 [place] Outpatient [id number] AXEL 05/11 Active [facility] 3 [place] Outpatient [id number] AXEL 05/17 Active [facility] 4 [facility] Inpatient [id number] Crow Darianni 05/17 05/19 [facility] Quezada [facility] Wound Care [id number] Ebba Ning 05/30 06/29 [facility] Que[facility]ada 0 Tsinopo Reha b [facility] Inpatient [id number] Kohler 06/21 06/29 [facility] Damien 9 Ishfaq /2016 [facility] Outpatient [id number] AXEL 07/11 Active [facility] 5 [place] Outpatient [id number] AXEL 08/04 Active [facility] 7 [place] Outpatient [id number] AXEL 08/09 Active [facility] 6 [place] Outpatient [id number] NURSE VISIT 08/11 [facility] Damien Outpatient [id number] AXEL 08/17 Active [facility] 9 [facility] Phone [id number] 04/12 04/14 [facility] Message Neuro [facility] Outpatient [id number] Ifeanyi 04/24 04/25 [facility] 3 DeFri Neuro [facility] Outpatient [id number] Roddy Wyatt 06/05 06/06 [facility] Neurology Neuro [facility] MNA Ambulatory [id number] Roddy Wyatt 11/29 11/29 [facility] Neurology Pre-Reg Neuro [facility] Procedures Procedure Code Date Perfomer Comments Source smoking/tobacco 14 11/26/2013 DONE Medica l cessation, Group patient education and counseling Appendectomy; [id number] [facility] Neuro,[facility] Rehab,[facility] ORIF - Open [id number] [facility] reduction and Neuro,[facility] internal fixation Rehab,[facility] of fracture [place],[facility] ORIF - Open [id number] [facility] internal fixation of fracture Assessment and Plan Assessment and Plan Date Source Extracted from:Title: Consult Note 06/29/2016 [facility] Author: Dominique Souza MD Date: 06/24/16 Assessment/Plan [...] replacement. Extracted from:Title: Progress Note * 07/20/2015 [facility] Author: Alicia Payan MD Date: 07/19/15 Impression and Plan 1. Acute exacerbation of chronic obstru ctive pulmonary disease with acute worsening secondary to smoking and tobacco abuse disorder. continue with nebulizations, IV antibiotics, and IV steroids. Cont inue with incentive spirometry and aggre ssive pulmonary toilet. The patient's hand polisher, Dr. Hinojosa, is following for further evaluation [...] entered on: 06/05/17 Social History TypeResponse 05/18/2016 [facility] Substance Abuse Use: None. IV drug [...]
--- OUTSIDE RECORDS SUMMARY | 2020-04-02 15:34 | XMS REPORT | Continuity of Care Document ---
:1945 Author Organization [facility] t Address [address] [place] [address] Care Team Providers Name Role Phone Mj Wyatt Attending Clinician Best Prince Attending Clinician Josy Attending Clinician Holley Calzada Attending Clinician Jefe Payan Attending Clinician Kannan Attending Clinician Mu Villasenor Attending Clinician Lele Attending Clinician Marcoq Admitting Clinician Holley Calzada Admitting Clinician Jefe Payan Admitting Clinician Kannan Admitting Clinician Payers Payer Name Policy Type Policy Number Effective Date Expiration Date S ource Problems Condition Condition Condition Status Onset Resolution Last Treating Co mments Source Name Details Category Date Date Treatment Clinician Date Essential Problem Active 2018-06-18 Me moria tremor 10-19 11:05:32 l (disorder) 00:00: Shravan n Essential 00 tremor (disorder) Active 10/19/2016 Problem 06/18/2018 Data migrated from [employer] on 12/27/2016 . Originally documented as Essential tremor.Bud a migrated from [employer] on 11/02/2016 . Originally documented as Essential tremor.Bud a migrated from [employer] on 05/12/2016 . Originally documented as Essential tremor. [facility] HEADACHE Diagnosis Active 2016-07-04 M emoria 4 22:02:00 l HEADACHE 00:00: Shravan n 00 Active 06/21/2016 [facility] FOOT PAIN Diagnosis Active 2016-05-22 Memoria OR INJURY 3 20:01:00 l FOOT 00:00: Damien PAIN OR 00 INJURY Active 05/17/2016 [facility] WOUND Diagnosis Active 2016-05-30 Mem oria 1- 09:23:00 l WOUND 08:00: [place] 00 Active 03/13/2016 [facility] ACUTE Diagnosis Active 2015-07-21 Mem oria RESPIRATOR 5-04 11:54:00 l Y FAILURE, ACUTE 00:00: Danielle nn ACUTE RESPIRATOR 00 RESPIRA Y FAILURE, ACUTE RESPIRA Active 07/15/2015 [facility] SHORTNESS Diagnosis Active 2015-07-15 Memoria OF BREATH 5- 18:29:00 l 00:00: [place] SHORTNESS 00 OF BREATH Active 07/15/2015 [facility] PCP Diagnosis Active 2015-07-13 Mem oria SENT/WEAKN - 19:58:00 l ESS PCP 00:00: [place] SENT/WEAKN 00 ESS Active 07/13/2015 [facility] ACUTE COPD Diagnosis Active 2015-07-14 Memoria EXACERBATI 07-12 08:45:00 l ON ACUTE 00:00: Damien COPD 00 EXACERBATI ON Active 6 [facility] COPD Diagnosis Active 2015-05-13 Mem oria - 22:05:00 l COPD 07:00: [place] 00 Active 05/04/2015 [facility] 305.1 - Diagnosis Active 2014-07-31 Me moria TOBACCO 07-29 14:03:00 l USE DIS 305.1 - 00:01: Shravan n TOBACCO 00 USE DIS Active 07/29/2014 [facility] TOBACCO Condition Active 2014-07-23 Me moria ABUSE 07-25 07:58:30 l TOBACCO 00:00: [place] ABUSE 00 Active 07/25/2014 [facility] Tobacco Problem Active 2018-06-18 Xiang bethany dependence 07-25 11:05:32 l syndrome Tobacco 00:00: Danielle nn (disorder) dependence 00 syndrome (disorder) Active 07/25/2014 Problem 06/18/2018 Data migrated from [employer] on 09/17/14.Bud a migrated from [employer] on 08/12/14. [facility] LOSS OF Condition Active 2014-07-23 Sc moria WEIGHT 07-23 07:58:30 l LOSS OF 00:00: [place] WEIGHT 00 Active 07/23/2014 [facility] CAROTID Condition Active 2014-07-23 Sc moria BRUIT, 07-23 07:58:30 l RIGHT CAROTID 00:00: [place] BRUIT, 00 RIGHT Active 07/23/2014 [facility] Carotid Problem Active 2018-06-18 Xiang bethany bruit 07-23 11:05:32 l (finding) Carotid 00:00: Herm martha bruit 00 (finding) Active 07/23/2014 Problem 06/18/2018 Data migrated from [employer] on 09/17/14.Bud a migrated from [employer] on 08/12/14. [facility], [facility] Weight Problem Active 2018-06-18 Memor ia decreased 07-23 11:05:32 l (finding) Weight 00:00: Danielle nn decreased 00 (finding) Active 07/23/2014 Problem 06/18/2018 Data migrated from [employer] on 09/17/14.Bud a migrated from [employer] on 08/12/14. [facility], [facility] PNEUMONIA Diagnosis Active 2014-04-25 Memoria 04-25 11:22:00 l 00:00: [place] PNEUMONIA 00 Active 04/25/2014 [facility] COPD Diagnosis Active 2014-05-02 Mem oria EXACERBATI 04-25 16:47:00 l ON COPD 00:00: [place] EXACERBATI 00 ON Active 5 [facility] RASH Diagnosis Active 2013-032014-02-21 Mem oria 04-24 17:08:00 l RASH 00:00: [place] 00 Active 02/21/2014 [facility] CELLULITIS Diagnosis Active 2013-032014-03-05 Memoria FAILED 04-24 16:34:00 l OUTPATIENT 00:00: Shravan n THERAPY CELLULITIS 00 FAILED OUTPATIENT THERAPY Active 02/21/2014 [facility] HYPOTHYROI Condition Active 2014-07-23 Memoria DISM 11-26 07:58:30 l 00:00: [place] HYPOTHYROI 00 DISM Active 11/26/2013 [facility] HYPOGONADI Condition Active 2014-07-23 Memoria SM 11-26 07:58:30 l 00:00: [place] HYPOGONADI 00 SM Active 4 Condition 07/23/2014 [facility] PERIPHERAL Condition Active 2014-07-23 Memoria VASCULAR 11-26 07:58:30 l DISEASE 00:00: [place] PERIPHERAL 00 VASCULAR DISEASE Active 11/26/2013 [facility] OSTEOPOROS Condition Active 2014-07-23 Memoria IS 11-26 07:58:30 l 00:00: [place] OSTEOPOROS 00 IS Active 4 Condition 07/23/2014 [facility] COPD Condition Active 2014-07-23 Mem oria 11-26 07:58:30 l COPD 00:00: [place] 00 Active 11/26/2013 [facility] Chronic Problem Active 2018-06-18 Xiang bethany obstructiv 11-26 11:05:32 l e lung Chronic 00:00: [place] disease obstructiv 00 (disorder) e lung disease (disorder) Active 11/26/2013 Problem 06/18/2018 Data migrated from [employer] on 09/17/14.Bud a migrated from [employer] on 08/12/14.Bud a migrated from [employer] on 08/12/14. [facility], [facility], [facility] Hypogonadi Problem Active 2018-06-18 M emoria 11-26 11:05:32 l (disorder) 00:00: Shravan n Hypogonadi 00 sm (disorder) Active 11/26/2013 Problem 06/18/2018 Data migrated from [employer] on 09/17/14.Bud a migrated from [employer] on 08/12/14.Bud a migrated from [employer] on 08/12/14. [facility] Osteoporos Problem Active 2018-06-18 M emoria is 11-26 11:05:32 l (disorder) 00:00: Shravan n Osteoporos 00 is (disorder) Active 11/26/2013 Problem 06/18/2018 Data migrated from [employer] on 09/17/14.Bud a migrated from [employer] on 08/12/14.Bud a migrated from [employer] on 08/12/14. [facility] Peripheral Problem Active 2018-06-18 M emoria vascular 11-26 11:05:32 l disease 00:00: [place] (disorder) Peripheral 00 vascular disease (disorder) Active 11/26/2013 Problem 06/18/2018 Data migrated from [employer] on 09/17/14.Bud a migrated from [employer] on 08/12/14.Bud a migrated from [employer] on 08/12/14. [facility] DYSPNEA Diagnosis Active 2012-09-12 Sc moria 03-13 13:24:00 l DYSPNEA 08:00: Damien 00 Active 03/13/2012 [facility] Cellulitis Problem Resolve 2018-06-18 Memoria (disorder) d 11:05:32 l [place] Cellulitis (disorder) Resolved Problem 06/18/2018 [facility] History of Problem Resolve 2018-06-18 Memoria - d 11:05:32 l musculoske History Her ruiz letal of - disease musculoske (context-d letal ependent disease category) (context-d ependent category) Resolved Problem 06/18/2018 [facility] Hypothyroi Problem Resolve 2018-06-18 Memoria dism d 11:05:32 l (disorder) Shravan n Hypothyroi dism (disorder) Resolved Problem 06/18/2018 [facility] COPD Problem Resolve 2012-09-14 Xiang bethany d 21:37:11 l COPD Damien Resolved Problem 09/14/2012 [facility] Hypertensi Problem Active 2018-06-18 M emoria ve 11:05:32 l disorder, [place] systemic Hypertensi arterial ve (disorder) disorder, systemic arterial (disorder) Active Problem 06/18/2018 [facility] Peripheral Problem Active 2018-06-18 M emoria arterial 11:05:32 l occlusive [place] disease Peripheral (disorder) arterial occlusive disease (disorder) Active Problem 06/18/2018 [facility], [facility] Poor Problem Active 2018-06-18 Memor ia short-term 11:05:32 l memory Poor Dam[place] (finding) short-term memory (finding) Active Problem 06/18/2018 [facility] Smoker Problem Active 2018-06-18 Memor ia (finding) 11:05:32 l Smoker Dam[place] (finding) Active Problem 06/18/2018 [facility] Cellulitis Diagnosis Active 2017-02-18 Memoria of right 03:46:09 l lower limb Shravan n Cellulitis of right lower limb Active Diagnosis 02/18/2017 [facility] RESPIRATOR Diagnosis Active 2012-09-12 Memoria Y ABNORM 13:24:00 l NEC [place] RESPIRATOR Y ABNORM NEC Active [facility] CHR AIRWAY Diagnosis Active 2014-05-02 Memoria OBSTRUCT 16:47:00 l NEC CHR [place] AIRWAY OBSTRUCT NEC Active [facility] CELLULITIS Diagnosis Active 2014-03-05 Memoria NOS 16:34:00 l [place] CELLULITIS NOS Active [facility] CHRONIC Diagnosis Active 2015-05-13 Me moria OBSTRUCTIV 22:05:00 l E PULMON CHRONIC Danielle nn DISEASE W OBSTRUCTIV ACU E PULMON DISEASE W ACU Active [facility] ACUTE Diagnosis Active 2015-07-21 Mem oria RESPIRATOR 11:54:00 l Y FAILURE, ACUTE Danielle nn UNSP W RESPIRATOR HYPOXI Y FAILURE, UNSP W HYPOXI Active [facility] History of Past Illness Condition Condition Condition Status Onset Resolution Last Treating Co mments Source Name Details Category Date Date Treatment Clinician Date Erysipelas Problem Resolve 2013-032018-06-18 2018-06-18 Memoria (disorder) d 04-21 11:05:32 11:05:32 l 00:00: [place] Erysipelas 00 (disorder) Resolved 02/18/2014 Problem 06/18/2018 Data migrated from [facility] on 09/26/14. [facility] RASH AND Condition Inactiv 2014-07-23 2014-07-23 Memoria OTHER e 03-14 07:58:30 07:58:30 l NONSPECIFI RASH AND 00:00: He rmann C SKIN OTHER 00 ERUPTION NONSPECIFI C SKIN ERUPTION Inactive 03/14/2014 [facility] ERYSIPELAS Condition Inactiv 2013-032014-07-23 2014-07-23 Memoria e 04-21 07:58:30 07:58:30 l 00:00: [place] ERYSIPELAS 00 Inactive 02/18/2014 [facility] SEBORRHEIC Condition Inactiv 2014-07-23 2014-07-23 Memoria KERATOSIS e 12-03 07:58:30 07:58:30 l 00:00: [place] SEBORRHEIC 00 KERATOSIS Inactive 12/03/2013 Condition 5 [facility] SUPERIOR Condition Inactiv 2014-07-23 2014-07-23 Memoria GLENOID e 11-27 07:58:30 07:58:30 l LABRUM SUPERIOR 00:00: Shravan n LESIONS GLENOID 00 (SLAP) LABRUM LESIONS (SLAP) Inactive 11/27/2013 Condition 5 [facility] ROTATOR Condition Inactiv 2014-07-23 2014-07-23 Memoria CUFF TEAR e 11-27 07:58:30 07:58:30 l ROTATOR 00:00: [place] CUFF TEAR 00 Inactive 11/27/2013 Condition 5 [facility] SHOULDER Condition Inactiv 2014-07-23 2014-07-23 Memoria PAIN, LEFT e 11-26 07:58:30 07:58:30 l SHOULDER 00:00: Shravan n PAIN, LEFT 00 Inactive 11/26/2013 [facility] NEOPLASM, Condition Inactiv 2014-07-23 2014-07-23 Memoria SKIN, e 11-26 07:58:30 07:58:30 l UNCERTAIN 00:00: [place] BEHAVIOR NEOPLASM, 00 SKIN, UNCERTAIN BEHAVIOR Inactive 11/26/2013 [facility] Allergies, Adverse Reactions, Alerts Allergy Allergy Status Severity Reaction(s) Onset Inactive Treating Comm ents Source Name Type Date Date Clinician cephalex DA Active U 2019-03 [facility] in 0-21 Clear 00:00: [place] 00 [facility] N[facility] Active Info Not Xiang bethany Available 3-21 l 00:00: [place] 00 cephalex cephalex Active Memori a in<sup>1 in<sup>1 1-02 l , , 06:00: Damien 2</sup> 2</sup> 00 KEFLEX KEFLEX Active Memoria 1-02 l 00:00: [place] 00 sulfa sulfa Active Moderate Memoria drugs<arboleda drugs<arboleda l p>1</sup p>1</sup Shravan n > > Bactrim Bactrim Active Memoria l [place] Keflex Keflex Active Memoria l [place] nka nka Active Memoria l [place] sulfa sulfa Active Moderate Memoria drugs<arboleda drugs<arboleda l p>3</sup p>3</sup Shravan n > > sulfa sulfa Active Moderate Memoria drugs<arboleda drugs<arboleda l p>4</sup p>4</sup Shravan n > > Social History Social Habit Start Date Stop Date Quantity Comments Source Social History 2014-02-22 2014-02-22 [facility] 08:08:27 08:08:27 Medications Ordered Filled Start Stop Current Ordering Indication Dosage Frequency Signature Comments Components Source Medication Medication Date Date Medication? Clinician (SIG) Name Name rivastigmin Yes See Memori a e 1.5 mg 4-16 Instructio l oral 12:14: ns, # 180 [place] capsule 18 unknown unit, Refill(s) 3, TAKE 1 CAPSULE BY MOUTH TWICE DAILY, [facility] [address] primidone Yes See Memoria 50 mg oral 06-05 Instructio l tablet 18:35: ns, 4 tabs Danielle nn 00 twice a day, # 720 tab, 3 Refill(s), Pharmacy: [facility] [place] [id number] Megestrol Yes See Memoria Acetate 40 05-12 Instructio l MG/ML Oral 21:38: ns, # 600 He rmann Suspension 36 mL, SHAKE WELL AND TAKE 20 ML BY MOUTH EVERY DAY, Pharmacy: [facility] [place] [id number] rivastigmin No 1.5 mg = 1 Memoria e 1.5 mg 2-12 cap, PO, l oral 22:23: BID, # 60 [place] capsule 00 cap, 3 Refill(s), [facility] [place] [id number] diazepam 2 Yes 2 mg = 1 Mem oria mg oral -31 tab, PO, l tablet 18:07: Daily, PRN Danielle nn 00 Tremor, X 30 day, # 30 tab, 3 Refill(s) clopidogrel 2016-03 Yes NELL 1 tab(s) M emoria 2-09 JIMY l 03:46: potassium 2016-03 Yes NELL 1 tab Memori a - JIMY l 03:46: prednisolon 2016-03 Yes NELL 5 mL Memor ia e 04-21 JIMY l 03:46: levofloxaci 2016-03 Yes NELL 1 tab(s) M emoria n 2- JIMY l 03:46: Furosemide 2016-03 Yes NELL 1 tab Memor ia - JIMY l 03:46: Enoxaparin No Notes: Memor ia -19 (Same as: l 14:00: Lovenox) [place] 00 Miralax No Notes: Memoria -18 Dissolve l 18:31: in 8 oz of water or juice. (Same as: Miralax) Dulcolax No Notes: Memoria Laxative -18 (Same As: l 18:16: Dulcolax, Bisco-Lax) metoprolol No Notes: Memor ia tartrate 18 (Same as: l 17:00: Lopressor) metoprolol Yes 50 mg = 1 Me moria tartrate 50 4-17 tab, PO, l mg oral 17:15: BID, # 60 Danielle nn tablet 00 tab, 0 Refill(s) Nystatin Yes 500,000 Memori a 969498 4-17 unit = 5 l UNT/ML Oral 17:15: mL, Shravan n Suspension 00 S&SPIT, QID, X 7 day, # 140 mL, 0 Refill(s) amLODIPine Yes 10 mg = 1 Me moria 10 mg oral 4-17 tab, PO, l tablet 17:15: Daily, # [place] 00 30 tab, 0 Refill(s) metoprolol No Notes: Memor ia tartrate 4-16 (Same as: l 02:00: Lopressor) Levaquin No 500 mg, 1 Xiang bethany 4-15 tab, l 20:00: Route: PO, Drug form: TAB, [id number], Dosing Weight 71.682, kg, Start date: 06/25/16 15:00:00 CDT, Duration: 7 day, Stop date: 07/01/16 15:00:00 CDT cholecalcif No Notes: Xiang bethany adin 4-15 Same as : l 14:00: Vitamin D3 clopidogrel No Notes: Xiang bethany 4-15 (Same As: l 14:00: Plavix) Vitamin E No 400 Memoria 4-15 IntlUnit, l 14:00: 1 cap, Route: PO, Drug form: CAP, Daily, Dosing Weight 71.682, kg, Start date: 06/25/16 9:00:00 CDT, Duration: 30 day, Stop date: 07/24/16 9:00:00 CDT Furosemide No Notes: Memor ia 20 MG Oral 4-15 (Same as: l Tablet 14:00: Lasix) May cause GI upset. Give with food or milk. Fish Oil No Notes: Memoria 4-15 (Same as: l 14:00: MaxEPA, [place] 3 fish oil ) Non-Formul stef[facility] Drug Vitamin C No Notes: Memori a 4-15 (Same as: l 14:00: Vitamin C) Spiriva No Notes: Memoria 4-15 (Same As: l 13:00: Spiriva) metoprolol No Notes: Memor ia tartrate 4-15 (Same as: l 04:50: Lopressor) atorvastati No Notes: Xiang bethany n 4-15 (Same As: l 02:00: Lipitor) Symbicort No Notes: Memori a 160/4.5 4-15 (Same as: l inhalation 01:00: Symbicort) H ermann aerosol 00 WASTE: with Aerosol - adapter Return to Pharmacy pantoprazol No Notes: Xiang bethany e 4-14 Tablet l 21:30: should not [place] 00 be chewed or crushed. (Same as: Protonix) Amlodipine No Notes: Memor ia 4-14 (Same as: l 19:00: Norvasc) Primidone No Notes: Memori a 4-14 (Same as: l 18:00: Mysoline) Albuterol No Notes: SEE Me moria 0.83 MG/ML 4-14 RT l Inhalant 08:09: DOCUMENTAT Her ruiz Solution 00 ION (Same as: Proventil) vancomycin No 2000 mg: Me moria + sodium 4-13 infuse l chloride 16:00: over 2.5 Danielle nn 0.9% 250 mL 00 hours INJ (for IV set) 250 mL MEDICATION WASTE Product Size: 1000 mg Product Wasted: ___ mg ketOROLAC No 4 days Memor ia 15 mg/mL 4-13 l injectable 02:27: MEDICATION H ermann solution 00 WASTE Product Size: 30 mg Product Wasted: _15__ mg Tylenol No Notes: Max Xiang bethany 4-13 acetaminop l 02:19: hen = 4000 [place] 00 mg/day (4 gm/day). (Same as: Tylenol) Levofloxaci No Notes: Xiang bethany n 4-13 (Same l 02:00: as:Levaqui [place] 00 n) Levofloxaci No Notes: Xiang bethany n 4-13 (Same l 01:00: as:Levaqui [place] 00 n) Hydralazine No Notes: Xiang bethany 4-12 (Same as: l 23:32: Apresoline Damien 00 ) Push over 5 minutes sodium 2016- No 1,000 mL, Memori a chloride -12 Rate: 50 l 0.9% 1000 23:30: ml/hr, Shravan n ml INJ 00 Infuse 1,000 mL over: 20 hr, Route: IV, Dosing Weight 71.682 kg, Total Volume: 1,000, Start date: 06/22/16 18:30:00 CDT, Duration: 30 day, Stop date: 07/22/16 18:29:00 CDT Vancomycin 2016- No Notes: M emoria 4-12 MEDICATION l 15:00: WASTE Dam[place] 00 Product Size: 1000 mg Product Wasted: _0__ mg Hydralazine No 10 mg, 0.5 Memoria 4-12 mL, Route: l 10:35: IVP, Drug form: INJ, Q4H, Dosing Weight 71.682, kg, PRN Hypertensi on, Start date: 06/22/16 5:35:00 CDT, Duration: 30 day, Stop date: 07/22/16 5:34:00 CDT Dilaudid No Notes: Memoria 4-12 Same as l 10:34: Dilaudid Albuterol No Notes: Memori a 0.833 MG/ML -12 (Same as: l / 07:00: Duoneb) Damien Ipratropium 00 Mobile 0.167 MG/ML Inhalant Solution Nystatin No 500,000 Memori a 134245 4-12 unit, 5 l UNT/ML Oral 05:00: mL, Route: Dam[place] Suspension 00 S&SPIT, Drug form: SUSP, QID, Dosing Weight 71.682, kg, Start date: 06/22/16 0:00:00 CDT, Duration: 30 day, Stop date: 07/21/16 21:00:00 CDT Albuterol No Notes: SEE Me moria 0.83 MG/ML 4-12 RT l Inhalant 04:08: DOCUMENTAT Her ruiz Solution 00 ION (Same as: Proventil) Enoxaparin No Notes: Memor ia 4-12 (Same as: l 04:00: Lovenox) [place] 00 Albuterol No 2.49 mg, Xiang bethany 0.83 MG/ML 12 Route: l Inhalant 03:54: NEB, PRN, Herm martha Solution 00 Dosing Weight 71.682, kg, PRN Respirator y Protocol, Start date: 06/21/16 22:54:00 CDT, Duration: 30 day, Stop date: 07/21/16 22:53:00 CDT Albuterol No 3 mL, Memoria 0.833 MG/ML 06-22 Route: l / 03:54: NEB, [place] Ipratropium 00 Dosing Mobile Weight 0.167 MG/ML 71.682, Inhalant kg, PRN, Solution PRN Respirator y Protocol, Start date: 06/21/16 22:54:00 CDT, Duration: 30 day, Stop date: 07/21/16 22:53:00 CDT Guaifenesin No Notes: Xiang bethany -12 (Same as: l 03:54: Robitussin Damien ) Sodium No 1,000 mL, Memori a Chloride 12 Rate: 125 l 0.154 03:51: ml/hr, Dam[place] MEQ/ML 00 Infuse Injectable over: 8 Solution hr, Route: IV, Dosing Weight 71.682 kg, Total Volume: 1,000, Start date: 06/21/16 22:51:00 CDT, Duration: 30 day, Stop date: 07/21/16 22:50:00 CDT Saline No 10 ml, Memoria Flush 0.9% 06-22 Route: l 03:51: IVP, Drug [place] 00 Form: INJ, Dosing Weight 71.682, kg, PRN, PRN Line Flush, Start date: 06/21/16 22:51:00 CDT, Duration: 30 day, Stop date: 07/21/16 22:50:00 CDT Acetaminoph No 100.4 F, M emoria en 4-12 Start l 03:51: date: [place] 00 06/21/16 22:51:00 CDT, Duration: 30 day, Stop date: 07/21/16 22:50:00 CDT Ondansetron No Notes: Xiang bethany 4-12 (Same as: l 03:51: Zofran) MEDICATION WASTE Product Size: 4 mg Product Wasted: ___ mg Acetaminoph No 1 tab, Xiang bethany en 325 MG / 4-12 Route: PO, l Hydrocodone 03:51: Drug Form: [place] Bitartrate 00 TAB, 5 MG Oral Dosing Tablet Weight 71.682, kg, Q4H, PRN Pain Score 4-6, Start date: 06/21/16 22:51:00 CDT, Duration: 30 day, Stop date: 07/21/16 22:50:00 CDT Morphine No 2 mg, 1 Memori a 4-12 mL, Route: l 03:51: IVP, Drug form: SOLN, Q4H, Dosing Weight 71.682, kg, PRN Pain Score 7-10, Start date: 06/21/16 22:51:00 CDT, Duration: 30 day, Stop date: 07/21/16 22:50:00 CDT vancomycin No Notes: M emoria + sodium 4-12 MEDICATION l chloride 03:00: WASTE Herm martha 0.9% 500 mL 00 Product INJ (for IV Size: set) 500 mL 1750 mg Product Wasted: __0_ mg Furosemide 2017- Yes PO, 0 Memori a 20 MG Oral 4-12 Refill(s) l Tablet 02:26: [place] 00 pantoprazol Yes 40 mg = 1 M emoria e 40 mg 4-12 tab, PO, l oral 02:22: Daily, 0 Dam[place] enteric 00 Refill(s) coated tablet Symbicort Yes 2 puff, Memor ia 160/4.5 4-12 INHALATION l inhalation 02:21: , BID, 0 Her ruiz aerosol 00 Refill(s) with adapter Vancomycin No 1,000 mg, Me moria 06-22 Route: l 01:24: IVPB, Drug form: INJ, ONCE, Dosing Weight 69.091, kg, Priority: STAT, Start date: 06/21/16 20:24:00 CDT, Stop date: 06/21/16 20:24:00 CDT, TIME CRITICAL MEDICATION Ciprofloxac No 400 mg, Mem oria in 06-22 Route: l 01:24: IVPB, [place] 00 ONCE, Dosing Weight 69.091, kg, Priority: STAT, Start date: 06/21/16 20:24:00 CDT, Stop date: 06/21/16 20:24:00 CDT Albuterol No Notes: Memori a 0.833 MG/ML 06-22 (Same as: l :12: Duoneb) Ipratropium 00 Mobile 0.167 MG/ML Inhalant Solution [DuoNeb] Acetaminoph No Notes: Do M emoria en 06-22 not exceed l 00:42: 4 gm/day. (Same as: Tylenol) Sodium No 25 mL, Memoria Chloride 06-21 Route: IV, l 0.9% IV 23:40: Start date: 06/21/16 18:40:00 CDT, Duration: 30 day, Stop date: 07/21/16 18:39:00 CDT, PRN Line Flush Hydralazine No Notes: Xiang bethany -11 (Same as: l 23:36: Apresoline ) Push over 5 minutes Morphine No Notes: Memoria 4-11 (Same l 23:36: as:MORPhin e Sulfate) Morphine No Notes: Memoria 4-11 (Same l 20:38: as:MORPhin e Sulfate) Diphenhydra No Notes: Xiang bethany mine -11 (Same as: l 20:38: Benadryl) Metoclopram No Notes: Xiang bethany trevor -11 (Same as: l 20:38: Reglan) Sodium 2017-0 No 1,000 mL, Memori a Chloride -11 1000 l 0.154 20:38: ml/hr, [place] MEQ/ML 00 Infuse Injectable Over: 1 Solution hr, Route: IV, 1,000, Drug form: INJ, ONCE, Priority: STAT, Dosing Weight 69.091 kg, Start date: 06/21/16 15:38:00 CDT, Duration: 1 doses or times, Stop date: 06/21/16 15:38:00 CDT Saline No Notes: Memoria Flush 0.9% 06-21 (Same as: l 19:29: BD [place] 00 Posiflush) Doxycycline No Notes: Xiang bethany 05-18 (Same as: l 21:00: Vibramycin [place] 00 ) No milk/antac ids/iron. Ciprofloxac No Notes: May Memoria in 05-18 interfere l 21:00: w/enteral [place] 00 feedings - Take 1 hr before or 2 hrs after antacids, dairy pdt & minerals. On empty stomach. minocycline Yes 100 mg = 1 Memoria 100 mg oral 308 cap, PO, l capsule 20:20: Q12H, X 30 Herm day, # 60 cap, 0 Refill(s), Pharmacy: [facility] ciprofloxac Yes 500 mg = 1 Memoria in 500 mg 3-08 tab, PO, l oral tablet 20:20: Q12H, X 30 Dam[place] 00 day, # 60 tab, 0 Refill(s), Pharmacy: [facility] Nicotine No Notes: Memoria 3-08 (Same as: l 15:00: Habitrol) Damien 00 "Remove old patch before applicatio n of new patch" WASTE: F/P - P Waste Black; E - P Waste Black Protonix No Notes: Memoria 3-08 Tablet l 13:30: should not [place] 00 be chewed or crushed. (Same as: Protonix) vancomycin No 2001 mg: Me moria + sodium 3-08 infuse l chloride 12:30: over 2.5 Danielle nn 0.9% INJ 00 hours 250 mL MEDICATION WASTE Product Size: 1000 mg Product Wasted: _0__ mg Cleocin HCl No 600 mg, 50 Memoria 3-08 mL, Route: l 03:30: IVPB, Drug 00 form: INJ, [id number], Start date: 05/17/16 21:30:00 [facility] [employer], Duration: 30 day, Stop date: 06/16/16 13:30:00 CDT atorvastati No Notes: Xiang bethany n 05-18 (Same As: l 03:00: Lipitor) Damien 00 Symbicort No Notes: Memori a 160/4.5 05-18 (Same as: l inhalation 02:00: Symbicort) H ermann aerosol 00 WASTE: with Aerosol - adapter Return to Pharmacy Vitamin C Yes 2,000 mg = Me moria 1000 mg 3-08 2 tab, PO, l oral tablet 01:56: Daily, # He rmann 00 30 tab, 0 Refill(s) Spiriva Yes 18 Memoria 3-08 microgram, l 01:56: INHALATION [place] 00 , Daily, # 30 ea, 0 Refill(s) vitamin E Yes 400 Memoria 400 intl 308 IntlUnit = l units oral 01:56: 1 cap, PO, H ermann capsule 00 Daily, # 100 cap, 0 Refill(s) predniSONE Yes See Memoria 50 mg oral 308 Instructio l tablet 01:56: ns, PRN [place] 00 Allergies, 1 tab PO PRN asthma attacks., 0 Refill(s) clopidogrel Yes 75 mg = 1 M emoria 75 mg oral 3-08 tab, PO, l tablet 01:56: Daily, # [place] 00 30 tab, 0 Refill(s) levofloxaci No 500 mg = 1 Memoria n 500 mg 3-08 tab, PO, l oral tablet 01:56: Daily, # He rmann 00 10 tab, 0 Refill(s) cholecalcif Yes 1,000 Memor ia adin 1000 08 IntlUnit = l intl units 01:56: 1 tab, PO, H ermann oral tablet 00 Daily, # 30 tab, 0 Refill(s) vancomycin No 2001 mg: Me moria + sodium 3-07 infuse l chloride 23:30: over 2.5 Danielle nn 0.9% 500 mL 00 hours INJ (for IV set) 500 mL MEDICATION WASTE Product Size: 1000 mg Product Wasted: _250__ mg Primidone No Notes: Memori a 3-07 (Same as: l 23:00: Mysoline) Enoxaparin No Notes: Memor ia 3-07 (Same as: l 23:00: Lovenox) metoprolol No Notes: Memor ia tartrate 3-07 (Same as: l 22:42: Lopressor) Ondansetron No Notes: Xiang bethany 3-07 (Same as: l 22:41: Zofran) MEDICATION WASTE Product Size: 4 mg Product Wasted: _0__ mg Simethicone No Notes: Xiang bethany 3-07 (Same as: l 22:41: Mylicon) Bisacodyl No Notes: Memori a 3-07 (Same As: l 22:41: Dulcolax, Bisco-Lax) Acetaminoph No Notes: Do M emoria en 3-07 not exceed l 22:41: 4 gm/day. (Same as: Tylenol) Tessalon No Notes: Memoria Perles -07 (Same As: l 22:41: Tessalon Perles) "Do Not Crush" Loratadine No Notes: 1 Mem oria 3-07 hr before l 22:41: meals (Same as: Claritin) Non-formul stefania item Hydralazine No Notes: Xiang bethany 3-07 (Same as: l 22:41: Apresoline ) Push over 5 minutes Acetaminoph No Notes: Xiang bethany en 325 MG / 3-07 (Same as: l Hydrocodone 22:41: [place] Danielle nn Bitartrate 00 325/5) Do 5 MG Oral not exceed Tablet 4gm/day of [[place] acetaminop 5/325] hen. Acetaminoph No Notes: Do M emoria en 325 MG / 3-07 not exceed l Hydrocodone 22:41: 4gm/day of [place] Bitartrate 00 acetaminop 10 MG Oral hen. Tablet (Same as: [[place] 10/325] 325/10) Lorazepam No Notes: Memori a 3-07 (Same as: l 22:41: Ativan) Morphine No 1 mg, 0.5 Xiang bethany 3-07 mL, Route: l 22:41: IVP, Drug form: SOLN, Q4H, Dosing Weight 74.545, kg, PRN Pain Score 7-10, if unable to take po, Start date: 05/17/16 16:41:00 [facility] [employer], Duration: 30 day, Stop date: 06/16/16 16:40:00 CDT Albuterol No Notes: Memori a 0.833 MG/ML 05-17 (Same as: 22:41: Duoneb) Ipratropium 00 Mobile 0.167 MG/ML Inhalant Solution Vancomycin No 1,118.175 Me moria 3-07 mg, Route: l 22:39: IVPB, Damien 00 ABXQ8H, Dosing Weight 74.545, kg, TIME CRITICAL MEDICATION , Priority: STAT, Start date: 05/17/16 16:39:00 [facility] [employer], Duration: 30 day, Stop date: 06/16/16 8:39:00 CDT Clindamycin No 600 mg, Mem oria 3-07 Route: l 22:39: IVPB, [place] 00 ABXQ8H, Dosing Weight 74.545, kg, Priority: STAT, Start date: 05/17/16 16:39:00 [facility] [employer], Duration: 30 day, Stop date: 06/16/16 8:39:00 CDT Saline No Notes: Memoria Flush 0.9% 07 (Same as: l 22:39: BD Damien 00 Posiflush) Sodium No 1,000 mL, Memori a Chloride 3-07 Rate: 100 l 0.154 22:39: ml/hr, [place] MEQ/ML 00 Infuse Injectable over: 10 Solution hr, Route: IV, Dosing Weight 74.545 kg, Total Volume: 1,000, Start date: 05/17/16 16:39:00 [facility] [employer], Duration: 30 day, Stop date: 06/16/16 16:38:00 CDT Acetaminoph No 100.4 F, M nena en 3-07 Start l 22:39: date: Damien 00 05/17/16 16:39:00 [facility] [employer], Duration: 30 day, Stop date: 06/16/16 16:38:00 CDT Clindamycin No 600 mg, 50 Memoria 3-07 mL, Route: l 18:31: IVPB, Drug form: INJ, ONCE, Dosing Weight 74.545, kg, Priority: STAT, Start date: 05/17/16 12:31:00 [facility] [employer], Stop date: 05/17/16 12:31:00 [facility] [employer] Symbicort Yes 2 puff, Memor ia 160/4.5 5-09 INHALATION l inhalation 15:35: , RBID, # He rmann aerosol 00 1 ea, 0 with Refill(s) adapter tiotropium Yes 18 Memoria 0.018 5-09 microgram l MG/ACTUAT 15:35: = 1 cap, Herm martha Inhalant 00 INHALATION Powder , Daily, [Spiriva] Use two inhalation s of one capsule for each dose, # 30 cap, 1 Refill(s) predniSONE Yes See Memoria 10 mg oral 5-09 Special l tablet 15:35: Karina Santos nn 00 ns, PO, Daily, 12 day regimen: Days 1-4 - 30 mg (3 tabs) daily Days 5-8 - 20 mg (2 tabs) daily Days 9-12 - 10 mg (1 tab) daily, X 12 day, # 24 tab, 0 Refill(s) methylPREDN No Notes: Xiang bethany ISolone -08 (Same l SODium 02:00: as:Solu-ME Danielle nn SUCCinate 00 DROL, A-Methapre d) Albuterol No Notes: Memori a 0.833 MG/ML 07-17 (Same as: l / 19:00: Duoneb) Damien Ipratropium 00 Mobile 0.167 MG/ML Inhalant Solution [DuoNeb] Acetylcyste No 200 mg, 1 M emoria ine 200 5-07 mL, Route: l MG/ML 19:00: NEB, Drug [place] Inhalant 00 Form: Solution SOLN, Dosing Weight 68.182, kg, RQ6H, Start date: 07/18/15 14:00:00 CDT, Duration: 30 day, Stop date: 08/17/15 8:00:00 CDT Symbicort No Notes: Memori a 160/4.5 07-17 (Same as: l inhalation 16:42: Symbicort) H ermann aerosol WASTE: with Aerosol - adapter Return to Pharmacy Spiriva No Notes: Memoria 07-17 (Same As: l 16:42: Spiriva) [place] 00 remove No Notes: Memoria patch 07-17 WASTE: F/P l 02:00: - P Waste [place] 00 Black; E - P Waste Black Ipratropium No Notes: SEE Memoria Mobile 0.2 5-05 RT l MG/ML 16:00: DOCUMENTAT Shravan n Inhalant 00 ION (Same Solution as:Atroven t) Levalbutero No Notes: SEE Memoria l 5-05 RT l 16:00: DOCUMENTAT [place] 00 ION (Same as:Xopenex ) Non-Formul stefania Nicotine No Notes: Memoria 5-05 (Same as: l 14:00: Habitrol) [place] WASTE: F/P - P Waste Black; E - P Waste Black Ipratropium No Notes: SEE Memoria Mobile 0.2 5-05 RT l MG/ML 12:00: DOCUMENTAT Shravan n Inhalant 00 ION (Same Solution as:Atroven t) Acetylcyste No 200 mg, 1 M emoria ine 200 5-05 mL, Route: l MG/ML 12:00: NEB, Drug [place] Inhalant 00 Form: Solution SOLN, Dosing Weight 68.182, kg, RQID, Start date: 07/16/15 7:00:00 CDT, Duration: 30 day, Stop date: 08/14/15 19:00:00 CDT methylPREDN No Notes: Xiang bethany ISolone 5-05 (Same l SODium 11:00: as:Solu-ME Danielle nn SUCCinate 00 DROL, A-Methapre d) Albuterol No Notes: Memori a 0.833 MG/ML 5-05 (Same as: l / 07:00: Duoneb) Ipratropium 00 Mobile 0.167 MG/ML Inhalant Solution Levalbutero No Notes: SEE Memoria l 5-05 RT l 07:00: DOCUMENTAT [place] 00 ION (Same as:Xopenex ) Non-Formul setfania methylPREDN No Notes: Xiang bethany ISolone 5-05 (Same l 03:30: as:Solu-ME [place]ien 00 DROL, A-Methapre d) methylPREDN No Notes: Xiang behtany ISolone 5-05 (Same l SODium 03:00: as:Solu-ME Danielle nn SUCCinate 00 DROL, A-Methapre d) atorvastati No Notes: Xiang bethany n 5-05 (Same As: l 03:00: Lipitor) Plavix No Notes: Memoria 5-05 (Same As: l 03:00: Plavix) [place] 00 Levaquin No Notes: Memoria 5-05 (Same l 03:00: as:Levaqui Damien 00 n) Ativan No Notes: Memoria 5-05 (Same as: l 02:46: Ativan) Albuterol No Notes: SEE Me moria 0.83 MG/ML -05 RT l Inhalant 02:13: DOCUMENTAT Her ruiz Solution 00 ION (Same as: Proventil) Enoxaparin No Notes: Memor ia 5-05 (Same as: l 02:00: Lovenox) Albuterol No Notes: Memori a 0.833 MG/ML 5-05 (Same as: l / 01:16: Duoneb) Ipratropium 00 Mobile 0.167 MG/ML Inhalant Solution Sodium No 25 mL, Memoria Chloride 07-14 Route: IV, l 0.9% IV 23:14: Start date: 07/15/15 18:14:00 CDT, Duration: 30 day, Stop date: 08/14/15 18:13:00 CDT, PRN Line Flush BD Normal No Notes: Memori a Saline -04 (Same as: l Flush 23:14: BD Damien 00 Posiflush) Ipratropium No 500 Memori a 5-04 microgram, l 23:11: Route: [place] 00 NEB, ONCE, Dosing Weight 68.182, kg, Start date: 07/15/15 18:11:00 CDT, Stop date: 07/15/15 18:11:00 CDT Xopenex No Notes: Memoria 5-04 Same as: l 23:11: Xopenex Non-Formul stefania High Concentrat ed (0.5ml) SEE RT DOCUMENTAT ION Lorazepam No Notes: Memori a 5-04 (Same as: l 23:10: Ativan) Sodium No 1,000 mL, Memori a Chloride 5-04 1,000 l 0.154 23:05: ml/hr, [place] MEQ/ML 00 Infuse Injectable Over: 1 Solution hr, Route: IV, 1,000, Drug form: INJ, ONCE, Priority: STAT, Dosing Weight 68.182 kg, Start date: 07/15/15 18:05:00 CDT, Duration: 1 doses or times, Stop date: 07/15/15 18:05:00 CDT Magnesium No Notes: Memori a Sulfate - WASTE: F/P l 23:05: - Sink; E - Municipal Trash Bin Albuterol No Notes: Memori a 0.833 MG/ML - (Same as: l / 23:05: Duoneb) Ipratropium 00 Mobile 0.167 MG/ML Inhalant Solution [DuoNeb] Brovana No Notes: SEE Xiang bethany 5-04 RT l 13:00: DOCUMENTAT [place] 00 ION Same as Brovana atorvastati No Notes: Xiang bethany n -04 (Same As: l 02:00: Lipitor) [place] 00 Plavix No Notes: Memoria 5-04 (Same As: l 02:00: Plavix) Damien 00 Levofloxaci Yes 750 mg = 1 Memoria n 750 MG 5-03 tab, PO, l Oral Tablet 20:01: Q24H, X 10 [place] [Levaquin] 00 day, # 10 tab, 0 Refill(s) predniSONE Yes 40 mg = 2 Me moria 20 mg oral 5-03 tab, PO, l tablet 20:01: Daily, X 5 Danielle nn 00 day, # 10 tab, 0 Refill(s) Brovana No Notes: SEE Xiang bethany 5-03 RT l 13:00: DOCUMENTAT [place] 00 ION Same as Brovana Protonix No Notes: Memoria 5-03 Tablet l 12:30: should not be chewed or crushed. (Same as: Protonix) Albuterol No Notes: Memori a 0.833 MG/ML -03 (Same as: l / 07:00: Duoneb) Ipratropium 00 Mobile 0.167 MG/ML Inhalant Solution Solu-Medrol No Notes: Xiang bethany 5-03 (Same l 07:00: as:Solu-ME 00 DROL, A-Methapre d) Melatonin No Notes: Memori a 5-03 (Same as: l 05:40: Melatonin) Acetaminoph No Notes: Do M emoria en 325 MG / 5-03 not exceed l Hydrocodone 05:39: 4gm/day of [place] Bitartrate 00 acetaminop 10 MG Oral hen. Tablet (Same as: [[place] 10/325] 325/10) Hydralazine No Notes: Xiang bethany 5-03 (Same as: l 05:39: Apresoline ) Push over 5 minutes Acetaminoph No Notes: Do M emoria en 5-03 not exceed l 05:39: 4 gm/day. [place] 00 (Same as: Tylenol) Tessalon No Notes: Memoria Perles 5-03 (Same As: l 05:39: Tessalon Perles) "Do Not Crush" Morphine No Notes: Memoria 5-03 (Same l 05:39: as:MORPhin e Sulfate) Loratadine No Notes: 1 Mem oria 5-03 hr before l 05:39: meals Damien 00 (Same as: Claritin) Bisacodyl No Notes: Memori a 5-03 (Same As: l 05:39: Dulcolax, Bisco-Lax) Ondansetron No Notes: Xiang bethany 5-03 (Same as: l 05:39: Zofran) MEDICATION WASTE Product Size: 4 mg Product Wasted: _0__ mg Simethicone No Notes: Xiang bethany 5-03 (Same as: l 05:39: Mylicon) Lorazepam No Notes: Memori a 5-03 (Same as: l 05:39: Ativan) Flagyl No Notes: Memoria 5-03 (Same as: l 05:32: Flagyl) Avoid alcohol. Levaquin No Notes: Memoria 5-03 (Same l 01:00: as:Levaqui n) Enoxaparin No Notes: Memor ia -03 (Same as: l 01:00: Lovenox) Vitamin C Yes 500 mg, Memor ia 5-03 PO, Daily l 00:53: Albuterol No Notes: SEE Me moria 0.83 MG/ML 07-13 RT l Inhalant 00:53: DOCUMENTAT Her ruiz Solution 00 ION (Same as: Proventil) arformotero Yes 15 Memori a l 0.0075 -03 microgram l MG/ML 00:53: = 2 mL, Damien Inhalant 00 NEB, BID Solution [Brovana] Saline No Notes: Memoria Flush 0.9% 07-13 (Same as: l 00:47: BD Posiflush) Sodium No 1,000 mL, Memori a Chloride 07-13 Rate: 75 l 0.154 00:47: ml/hr, Damien MEQ/ML 00 Infuse Injectable over: 13.3 Solution hr, Route: IV, Dosing Weight 71.932 kg, Total Volume: 1,000, Start date: 07/13/15 19:47:00 CDT, Duration: 30 day, Stop date: 08/12/15 19:46:00 CDT Morphine No Notes: Memoria 5-03 (Same l 00:47: as:MORPhin Damien 00 e Sulfate) Acetaminoph No Notes: Xiang bethany en 325 MG / 5-03 (Same as: l Hydrocodone 00:47: [place] Danielle nn Bitartrate 00 325/5) Do 5 MG Oral not exceed Tablet 4gm/day of acetaminop hen. Docusate No Notes: Memoria 5-03 (Same as: l 00:47: Colace) Ondansetron No Notes: Xiang bethany 5-03 (Same as: l 00:47: Zofran) MEDICATION WASTE Product Size: 4 mg Product Wasted: _0__ mg Roflumilast No 0 Memori a 0.5 MG Oral 5-03 Refill(s) l Tablet 00:38: [place] [Daliresp] 00 Albuterol No 0 Memoria 0.833 MG/ML 5-03 Refill(s) l / 00:38: [place] Ipratropium 00 Mobile 0.167 MG/ML Inhalant Solution atorvastati Yes 10 mg = 1 M emoria n 10 mg 5-03 tab, PO, l oral tablet 00:38: Bedtime, 0 Refill(s) Sodium No 25 mL, Memoria Chloride 5-02 Route: IV, l 0.9% IV 20:59: Start [place] 00 date: 07/13/15 15:59:00 CDT, Duration: 30 day, Stop date: 08/12/15 15:58:00 CDT, PRN Line Flush Albuterol No Notes: Memori a 0.833 MG/ML -02 (Same as: l / 20:50: Duoneb) Ipratropium 00 Mobile 0.167 MG/ML Inhalant Solution methylPREDN No Notes: Xiang bethany ISolone 5-02 (Same l SODium 20:50: as:Solu-ME Danielle nn SUCCinate 00 DROL, A-Methapre d) Saline No Notes: Memoria Flush 0.9% -02 (Same as: l 20:50: BD D[place] 00 Posiflush) Doxycycline No 100 mg, Mem oria 4-29 PO, Q12H l 00:54: Damien 00 Acetylcyste No Notes: Xiang bethany ine 200 2-24 WASTE: F/P l MG/ML 21:00: - Black; E Shravan n Inhalant 00 - Solution [facility] Trash Bin Acetylcyste No Notes: Xiang bethany ine 200 2-23 WASTE: F/P l MG/ML 21:00: - Black; E Shravan n Inhalant 00 - Solution [place] Trash Bin methylPREDN No Notes: Xiang bethany ISolone 2- (Same l SODium 06:00: as:Solu-ME Danielle nn SUCCinate 00 DROL, A-Methapre d) Albuterol No Notes: Memori a 0.833 MG/ML - (Same as: l / 01:00: Duoneb) Damien Ipratropium 00 Mobile 0.167 MG/ML Inhalant Solution [DuoNeb] BD Normal No Notes: Memori a Saline 2- (Same as: l Flush 23:43: BD [place] 00 Posiflush) Sodium No IV, 0 Memoria Chloride 2-22 ml/hr, l 0.9% IV 23:42: PRN, PRN Shravan n 00 Line Flush, Start date: 05/04/15 17:42:00, Duration: 30, 25 ml Levaquin No Notes: Memoria 2-22 (Same l 23:00: as:Levaqui [place] 00 n) Tessalon No Notes: Memoria Perles 2-22 (Same As: l 22:18: Tessalon Damien 00 Perles) "Do Not Crush" Robitussin- No Notes: Xiang bethany AC oral 2-22 (Same As: l syrup 22:18: Robitussin Shravan n 00 AC) Unknown Yes 2 puffs, Memori a Home 2-22 INHALATION l Medication 21:24: , BID, Danielle nn 00 experiment al drug no name, Refill(s) 0 AUGMENTIN No 1 tablet Xiang bethany 875-125 MG 1-02 twice l TABS 00:00: daily for [place] 14 days PREDNISONE No 4 po daily M emoria 10 MG TABS 1-02 on days l 00:00: 1-4, 3 po Damien 00 daily on days 5-8, 2 po daily on days 9-12, 1 po daily on days 13-16 PREDNISONE Yes 4 po daily M emoria 10 MG TABS 1-02 on days l 00:00: 1-4, 3 po [place] 00 daily on days 5-8, 2 po daily on days 9-12, 1 po daily on days 13-16 AUGMENTIN 2013-03 No 1 tablet Xiang bethany 875-125 MG 2-11 twice l TABS 00:00: daily for Damien 00 10 days DOXYCYCLINE 2013-03 No 1 tablet Me moria HYCLATE 100 2-09 twice l MG TABS 00:00: daily for Danielle nn 10 days SYMBICORT Yes Two puffs Mem oria 160-4.5 9-16 twice a l MCG/ACT 00:00: day. AERO ALENDRONATE Yes 1 po Memori a SODIUM 70 9-16 weekly l MG TABS 00:00: SPIRIVA Yes Inhale one Xiang bethany HANDIHALER 9-16 capsule l 18 MCG CAPS 00:00: daily Danielle nn ARMOUR Yes 1 po qd Memoria THYROID 60 9-16 l MG TABS 00:00: CLOPIDOGREL Yes 1 po qd Mem oria BISULFATE 9-16 l 75 MG TABS 00:00: FISH OIL Yes 1 po qd Memori a 1000 MG 9-16 l CAPS 00:00: VITAMIN D3 Yes 1 po qd Xiang bethany 5000 UNIT 9-16 l CAPS 00:00: TESTOSTERON No inject .5 M emoria E CYPIONATE 9-16 mL every l OIL 00:00: 10 days ALBUTEROL Yes use as Memori a SULFATE 9-16 needed l NEBU 00:00: ARMOUR Yes 1 po qd Memoria THYROID 60 9-16 l MG TABS 00:00: dexamethaso No 10 mg, 1 Me moria ne 3-07 mL, Route: l 18:00: IV, Drug [place] 00 form: INJ, Q6H, Start date: 05/17/13 12:00:00, Duration: 30 day, Stop date: 06/16/13 6:00:00 ciprofloxac Yes 500 mg = 1 Memoria in 500 mg 3-07 tab, PO, l oral tablet 16:06: Q12H, # 14 tab, 0 Refill(s) methylPREDN No 40 mg, Xiang bethany ISolone 3-07 Route: l SODium 00:00: IVP, Q6H, Shravan n SUCCinate 00 Dosing Weight 80.909, kg, Priority: Routine, Start date: 05/16/13 18:00:00, Duration: 30 day, Stop date: 06/15/13 12:00:00 Acetylcyste No 2 mL, Memor ia ine 100 3-06 Route: l MG/ML 22:00: NEB, Drug Inhalant 00 Form: Solution SOLN, Dosing Weight 80.909, kg, Q8H, Start date: 05/16/13 16:00:00, Duration: 30 day, Stop date: 06/15/13 8:00:00 acetylcyste No 200 mg, 1 M emoria ine 3-06 mL, Route: l 21:00: NEB, Drug [place] 00 Form: SOLN, RQ8H, Start date: 05/16/13 15:00:00, Duration: 30 day, Stop date: 06/15/13 7:00:00 Albuterol 0 No 3 ml, Memoria 0.833 MG/ML 3-06 Route: l / 21:00: INHALATION [place] Ipratropium 00 , Drug Mobile Form: 0.167 MG/ML SOLN, Inhalant Dosing Solution Weight [DuoNeb] 80.909, kg, RQ4H, Start date: 05/16/13 15:00:00, Duration: 30 day, Stop date: 06/15/13 11:00:00(S lizabeth as: Duoneb) Cipro 2013- No 400 mg, Memoria 3-06 200 mL, l 19:00: Route: Damien IVPB, Drug form: INJ, [id number], Dosing Weight 80.909, kg, Start date: 05/16/13 13:00:00, Duration: 30 day, Stop date: 06/15/13 1:00:00Do not refrigerat e dexamethaso No 4 mg, 1 Mem oria ne 3-06 mL, Route: l 18:21: IV, Drug form: INJ, Q6H, Start date: 05/16/13 12:21:00, Duration: 30 day, Stop date: 06/15/13 12:00:00Co ncentratio n: 4mg/ml Sodium No 25 mL, Memoria Chloride 3 Route: IV, l 0.9% IV 18:18: Start Damien 00 date: 05/16/13 12:18:00, Duration: 30 day, Stop date: 06/15/13 13:17:00, PRN Line Flush BD Normal No 10 mL, Memori a Saline 06 Route: IV, l Flush 18:17: Drug Form: Shravan n 00 INJ, PRN, PRN Line Flush, Start date: 05/16/13 12:17:00, Duration: 30 day, Stop date: 06/15/13 13:16:00(S lizabeth as: BD Posiflush) Robitussin- No 5 ml, Memor ia AC oral 3-06 Route: PO, l syrup 18:04: Drug Form: Shravan n 00 SYRP, Dosing Weight 80.909, kg, Q4H, PRN Cough/Nii estion, Start date: 05/16/13 12:04:00, Duration: 30 day, Stop date: 06/15/13 12:03:00(c odeine-gua ifenesin 20-200mg/1 0ml LIQ) (Same As: Robitussin AC) predniSONE Yes Pascual Brunner 20 mg, 1 Memoria 20 mg oral 09-12 tab, PO, l tablet 15:49: BID, 14 [place] 54 tab, Substituti on Allowed, TAB DuoNeb Yes Pascual Brunner 3 ml, Memor ia inhalation 09-12 INHALATION l solution 15:49: , Q4H, 120 Her ruiz 47 ea, Substituti on Allowed, Maintenanc e SOLN DuoNeb No Pascual Brunner 3 ml, Memor ia inhalation 09-11 Route: l solution 20:00: NEB, Drug Form: SOLN, Dosing Weight 80.028, kg, RQ4H, Start date: 09/11/12 15:00:00, Duration: 30 day, Stop date: 10/11/12 11:00:00 albuterol-i Yes 3 ml, Memor ia pratropium 09-11 INHALATION l 2.5-0.5 mg 18:07: , QID, 30 He rmann inhalation 42 ea, solution Substituti on Allowed, Maintenanc eSHARONLyudmila Combivent Yes 2 puff, Memor ia inhalation 09-11 INHALER, l aerosol 18:07: QID, 14 [place] with 00 gm, adapter Substituti on Allowed, Maintenanc e Symbicort Yes 2 puff, Memor ia 160/4.5 09-11 INHALATION l inhalation 18:05: , BID, 10 He rmann aerosol 27 gm, with Substituti adapter on Allowed, Maintenanc e, AERO Ventolin Yes 2 puff, Memori a HFA 90 09-11 INHALATION l mcg/inh 18:04: , QID, 17 Danielle nn inhalation 22 gm, aerosol Substituti with on adapter Allowed, Maintenanc e, AERO levofloxaci Yes 500 mg, 1 M emoria n 500 mg 09-11 tab, PO, l oral tablet 18:02: Daily, 7 He rmann 03 tab, Substituti on Allowed predniSONE Yes 20 mg, 1 Mem oria 20 mg oral 09-11 tab, PO, l tablet 18:00: BID, [place] 21 Substituti on Allowed, TAB Cipro No Pascual Brunner 400 mg, Xiang bethany 7-02 200 mL, l 17:00: Route: [place] IVPB, Drug form: INJ, [id number], Dosing Weight 80.028, kg, Start date: 09/11/12 12:00:00, Duration: 30 day, Stop date: 10/11/12 0:00:00 methylPREDN No Pascual Brunner 40 mg, 1 Memoria ISolone 702 mL, Route: l SODium 17:00: IVP, Drug Shravan n SUCCinate 00 form: INJ, Q8H, Dosing Weight 80.028, kg, Priority: Routine, Start date: 09/11/12 12:00:00, Duration: 30 day, Stop date: 10/11/12 4:00:00 Sodium No Pascual Brunner 25 mL, Xiang bethany Chloride 09-11 Route: IV, l 0.9% IV 16:48: Start date: 09/11/12 11:48:00, Duration: 30 day, Stop date: 10/11/12 11:47:00, PRN Line Flush BD Normal No Pascual Brunner 10 mL, M emoria Saline 09-11 Route: IV, l Flush 16:48: Drug Form: Shravan n 00 INJ, PRN, PRN Line Flush, Start date: 09/11/12 11:48:00, Duration: 30 day, Stop date: 10/11/12 11:47:00 Robitussin- No Pascual Brunner 5 ml, Memoria AC oral 09-11 Route: PO, l syrup 16:36: Drug Form: Shravan n 00 SYRP, Dosing Weight 80.028, kg, Q4H, PRN Cough/Nii estion, Start date: 09/11/12 11:36:00, Duration: 30 day, Stop date: 10/11/12 11:35:00 NS 1,000 mL No Pascual Brunner 1,000 mL, Memoria 09-11 Rate: 100 l 16:36: ml/hr, Infuse over: 10 hr, Route: IV, Dosing Weight 80.028 kg, Total Volume: 1,000, Start date: 09/11/12 11:36:00, Duration: 30 day, Stop date: 10/11/12 11:35:00 Vital Signs Vital Name Observation Time Observation Value Comments Source Height 2017-06-05 18:21:00 182.88 cm [facility] [place] BMI Calculated 2017-06-05 18:21:00 [facility] [place] Weight 2017-06-05 18:21:00 [facility] [place] Systolic (mm Hg) 2017-06-05 18:21:00 Xiang rial [place] Diastolic (mm Hg) 2017-06-05 18:21:00 [facility] [place] Weight 2017-04-24 20:45:00 [facility] [place] BMI Calculated 2017-04-24 20:45:00 [facility] [place] Height 2017-04-24 20:45:00 182.88 cm [facility] [place] Heart Rate 2017-04-24 20:45:00 [facility] [place] Systolic (mm Hg) 2017-04-24 20:45:00 Xiang rial [place] Diastolic (mm Hg) 2017-04-24 20:45:00 [facility] [place] Heart Rate 2016-06-28 20:00:00 [facility] [place] Respitory Rate 2016-06-28 20:00:00 [facility] [place] Systolic (mm Hg) 2016-06-28 20:00:00 [facility] [place] Diastolic (mm Hg) 2016-06-28 20:00:00 [facility] [place] Temperature Oral (F) 2016-06-28 20:00:00 98.5 F [facility] Systolic (mm Hg) 2016-06-28 16:00:00 [facility] [place] Diastolic (mm Hg) 2016-06-28 16:00:00 [facility] Respitory Rate 2016-06-28 16:00:00 [facility] [place] Heart Rate 2016-06-28 16:00:00 [facility] [place] Temperature Oral (F) 2016-06-28 16:00:00 98.1 F [facility] Temperature Oral (F) 2016-06-28 12:00:00 97.5 F [facility] [place] Heart Rate 2016-06-28 12:00:00 [facility] Systolic (mm Hg) 2016-06-28 12:00:00 [facility] [place] Diastolic (mm Hg) 2016-06-28 12:00:00 [facility] Respitory Rate 2016-06-28 12:00:00 [facility] [place] Weight 2016-06-22 03:50:00 [facility] BMI Calculated 2016-06-22 03:50:00 [facility] Height 2016-06-22 03:50:00 182.88 cm [facility] Weight 2016-06-21 18:45:00 [facility] [place] Height 2016-06-21 18:45:00 182.88 cm [facility] [place] BMI Calculated 2016-06-21 18:45:00 [facility] [place] Heart Rate 2016-05-31 20:30:00 [facility] [place] Respitory Rate 2016-05-31 20:30:00 [facility] Temperature Oral (F) 2016-05-31 20:30:00 97.8 F [facility] [place] Weight 2016-05-31 20:30:00 [facility] [place] Diastolic (mm Hg) 2016-05-31 20:30:00 [facility] [place] Systolic (mm Hg) 2016-05-31 20:30:00 [facility] Systolic (mm Hg) 2016-05-18 22:11:00 [facility] [place] Diastolic (mm Hg) 2016-05-18 22:11:00 [facility] [place] Heart Rate 2016-05-18 22:11:00 [facility] Respitory Rate 2016-05-18 22:11:00 [facility] Temperature Oral (F) 2016-05-18 22:11:00 98.5 F [facility] Temperature Oral (F) 2016-05-18 17:09:00 98.4 F [facility] [place] Heart Rate 2016-05-18 17:09:00 [facility] Systolic (mm Hg) 2016-05-18 17:09:00 [facility] [place] Diastolic (mm Hg) 2016-05-18 17:09:00 [facility] Respitory Rate 2016-05-18 17:09:00 [facility] [place] Temperature Oral (F) 2016-05-18 14:45:00 98.2 F [facility] [place] Respitory Rate 2016-05-18 14:45:00 [facility] [place] Heart Rate 2016-05-18 14:45:00 [facility] [place] Systolic (mm Hg) 2016-05-18 14:45:00 [facility] [place] Diastolic (mm Hg) 2016-05-18 14:45:00 [facility] Height 2016-05-18 01:33:00 182.88 cm [facility] BMI Calculated 2016-05-18 01:33:00 [facility] [place] Weight 2016-05-18 01:33:00 [facility] [place] BMI Calculated 2016-05-17 17:50:00 [facility] Height 2016-05-17 17:50:00 182.88 cm [facility] [place] Weight 2016-05-17 17:50:00 [facility] [place] Systolic (mm Hg) 2015-07-20 16:05:00 [facility] [place] Diastolic (mm Hg) 2015-07-20 16:05:00 [facility] [place] Respitory Rate 2015-07-20 16:05:00 [facility] Heart Rate 2015-07-20 16:05:00 [facility] Temperature Oral (F) 2015-07-20 16:05:00 98.4 F [facility] [place] Temperature Oral (F) 2015-07-20 12:26:00 98.3 F [facility] Respitory Rate 2015-07-20 12:26:00 [facility] Systolic (mm Hg) 2015-07-20 12:26:00 [facility] Diastolic (mm Hg) 2015-07-20 12:26:00 [facility] Heart Rate 2015-07-20 12:26:00 [facility] Respitory Rate 2015-07-20 09:30:00 [facility] Heart Rate 2015-07-20 09:30:00 [facility] Systolic (mm Hg) 2015-07-20 09:30:00 [facility] Diastolic (mm Hg) 2015-07-20 09:30:00 [facility] Temperature Oral (F) 2015-07-20 09:30:00 97.4 F [facility] Height 2015-07-16 02:36:00 203.2 cm [facility] BMI Calculated 2015-07-15 23:02:00 [facility] Height 2015-07-15 23:02:00 175.26 cm [facility] Weight 2015-07-15 23:02:00 [facility] Respitory Rate 2015-07-14 17:47:00 [facility] Heart Rate 2015-07-14 17:47:00 [facility] Systolic (mm Hg) 2015-07-14 17:47:00 [facility] Diastolic (mm Hg) 2015-07-14 17:47:00 [facility] Temperature Oral (F) 2015-07-14 17:47:00 98.6 F [facility] Respitory Rate 2015-07-14 13:00:00 [facility] Systolic (mm Hg) 2015-07-14 13:00:00 [facility] Diastolic (mm Hg) 2015-07-14 13:00:00 [facility] Heart Rate 2015-07-14 13:00:00 [facility] Temperature Oral (F) 2015-07-14 13:00:00 98 F [facility] Temperature Oral (F) 2015-07-14 09:15:00 98.2 F [facility] Heart Rate 2015-07-14 09:15:00 [facility] Systolic (mm Hg) 2015-07-14 09:15:00 [facility] Diastolic (mm Hg) 2015-07-14 09:15:00 [facility] Respitory Rate 2015-07-14 09:15:00 [facility] Height 2015-07-14 02:19:00 182.88 cm [facility] Height 2015-07-14 02:13:00 182.88 cm [facility] BMI Calculated 2015-07-13 18:47:00 [facility] Weight 2015-07-13 18:47:00 [facility] Height 2015-07-13 18:47:00 182.88 cm [facility] Heart Rate 2015-05-07 18:43:00 [facility] Temperature Oral (F) 2015-05-07 18:43:00 98 F [facility] Systolic (mm Hg) 2015-05-07 18:43:00 [facility] Diastolic (mm Hg) 2015-05-07 18:43:00 [facility] Respitory Rate 2015-05-07 18:43:00 [facility] Temperature Oral (F) 2015-05-07 14:07:00 98.1 F [facility] Respitory Rate 2015-05-07 14:07:00 [facility] Systolic (mm Hg) 2015-05-07 14:07:00 [facility] Diastolic (mm Hg) 2015-05-07 14:07:00 [facility] Heart Rate 2015-05-07 14:07:00 [facility] Heart Rate 2015-05-07 09:20:00 [facility] Systolic (mm Hg) 2015-05-07 09:20:00 [facility] Diastolic (mm Hg) 2015-05-07 09:20:00 [facility] Respitory Rate 2015-05-07 09:20:00 [facility] Temperature Oral (F) 2015-05-07 09:20:00 97.9 F [facility] Weight 2015-05-04 21:15:00 [facility] BMI Calculated 2015-05-04 21:15:00 [facility] Height 2015-05-04 21:15:00 182.88 cm [facility] Height 2015-05-04 21:07:00 182.88 cm [facility] Weight 2015-05-04 21:07:00 [facility] BMI Calculated 2015-05-04 21:07:00 [facility] Height 2014-07-23 12:58:30 [facility] Weight 2014-07-23 12:58:30 [facility] Systolic (mm Hg) 2014-07-23 12:58:30 [facility] Diastolic (mm Hg) 2014-07-23 12:58:30 [facility] Temperature Oral (F) 2014-07-23 12:58:30 98.5 F [facility] Respitory Rate 2014-07-23 12:58:30 [facility] Heart Rate 2014-07-23 12:58:30 [facility] Height 2014-03-14 14:04:42 [facility] Temperature Oral (F) 2014-03-14 14:04:42 97 F [facility] Respitory Rate 2014-03-14 14:04:42 [facility] Heart Rate 2014-03-14 14:04:42 [facility] Systolic (mm Hg) 2014-03-14 14:04:42 [facility] Diastolic (mm Hg) 2014-03-14 14:04:42 [facility] Height 2014-02-20 14:03:41 [facility] Weight 2014-02-20 14:03:41 [facility] Temperature Oral (F) 2014-02-20 14:03:41 98.3 F [facility] Respitory Rate 2014-02-20 14:03:41 [facility] Heart Rate 2014-02-20 14:03:41 [facility] Systolic (mm Hg) 2014-02-20 14:03:41 [facility] Diastolic (mm Hg) 2014-02-20 14:03:41 [facility] Height 2014-02-18 17:25:11 [facility] Weight 2014-02-18 17:25:11 [facility] Temperature Oral (F) 2014-02-18 17:25:11 98.3 F [facility] Respitory Rate 2014-02-18 17:25:11 [facility] Heart Rate 2014-02-18 17:25:11 [facility] Systolic (mm Hg) 2014-02-18 17:25:11 [facility] Diastolic (mm Hg) 2014-02-18 17:25:11 [facility] Height 2013-12-03 18:05:02 [facility] Weight 2013-12-03 18:05:02 [facility] Temperature Oral (F) 2013-12-03 18:05:02 98.3 F [facility] Respitory Rate 2013-12-03 18:05:02 [facility] Heart Rate 2013-12-03 18:05:02 [facility] Systolic (mm Hg) 2013-12-03 18:05:02 [facility] Diastolic (mm Hg) 2013-12-03 18:05:02 [facility] Systolic (mm Hg) 2013-11-26 18:55:21 [facility] Diastolic (mm Hg) 2013-11-26 18:55:21 [facility] Weight 2013-11-26 18:55:21 [facility] Temperature Oral (F) 2013-11-26 18:55:21 98.4 F [facility] Respitory Rate 2013-11-26 18:55:21 [facility] Heart Rate 2013-11-26 18:55:21 [facility] Height 2013-11-26 18:55:21 [facility] Temperature Oral (F) 2013-05-18 13:27:00 98.1 F [facility] Respitory Rate 2013-05-18 13:27:00 [facility] Heart Rate 2013-05-18 13:27:00 [facility] Systolic (mm Hg) 2013-05-18 13:27:00 [facility] Diastolic (mm Hg) 2013-05-18 13:27:00 [facility] Systolic (mm Hg) 2013-05-18 10:00:00 [facility] Diastolic (mm Hg) 2013-05-18 10:00:00 [facility] Temperature Oral (F) 2013-05-18 10:00:00 96.8 F [facility] Respitory Rate 2013-05-18 10:00:00 [facility] Heart Rate 2013-05-18 10:00:00 [facility] Diastolic (mm Hg) 2013-05-18 05:35:00 [facility] Temperature Oral (F) 2013-05-18 05:35:00 96.5 F [facility] Respitory Rate 2013-05-18 05:35:00 [facility] Systolic (mm Hg) 2013-05-18 05:35:00 [facility] Heart Rate 2013-05-18 05:35:00 [facility] BMI Calculated 2013-05-16 17:59:00 [facility] Weight 2013-05-16 17:59:00 [facility] Height 2013-05-16 17:59:00 182.88 cm [facility] Respitory Rate 2012-09-12 17:09:00 [facility] Systolic (mm Hg) 2012-09-12 17:09:00 [facility] Diastolic (mm Hg) 2012-09-12 17:09:00 [facility] Temperature Oral (F) 2012-09-12 17:09:00 96.9 F [facility] Heart Rate 2012-09-12 17:09:00 [facility] Diastolic (mm Hg) 2012-09-12 12:55:00 [facility] Systolic (mm Hg) 2012-09-12 12:55:00 [facility] Respitory Rate 2012-09-12 12:55:00 [facility] Heart Rate 2012-09-12 12:55:00 [facility] Temperature Oral (F) 2012-09-12 12:55:00 96.3 F [facility] Systolic (mm Hg) 2012-09-12 09:36:00 [facility] Diastolic (mm Hg) 2012-09-12 09:36:00 [facility] Heart Rate 2012-09-12 09:36:00 [facility] Respitory Rate 2012-09-12 09:36:00 [facility] Temperature Oral (F) 2012-09-12 09:36:00 96.9 F [facility] Weight 2012-09-11 16:16:00 [facility] Height 2012-09-11 16:16:00 182.88 cm [facility] Procedures Procedure Date / Time Performed Performing Clinician [facility] e smoking/tobacco 2013-11-26 18:55:21 [facility] cessation, patient education and counseling Appendectomy; [facility] ORIF - Open reduction and [facility] internal fixation of fracture ORIF - Open reduction and [facility] internal fixation of fracture Encounters Start End Encounter Admission Attending Care Care Encounter Source Date/Time Date/Time Type Type Clinicians Facility Department ID 2017-11-29 2017-11-29 Outpatient Wyatt, MHMISCHER MISCHER [id number] 13:30:00 13:30:00 [facility] 2017-06-05 2017-06-05 Outpatient Wyatt, MHMISCHER MISCHER [id number] 13:15:00 23:59:59 [facility] 2017-04-24 2017-04-24 Outpatient Wyatt, MHMISCHER MHMISCHER [id number] 14:15:00 23:59:59 [facility] 2017-04-24 2017-04-24 Outpatient Wyatt, MHMISCHER MHMISCHER [id number] 14:15:00 23:59:59 [facility] 2017-04-12 2017-04-13 Outpatient MHMISCHER MHMISCHER [id number] 11:38:00 23:59:59 2016-05-30 2016-06-28 Outpatient Tsinopojay [id number]. [id number]. 1. [id number] 09:00:00 23:59:00 , Ebba [id number]. [id number] Ning 3.615.15 5.15 Best 2016-06-21 2016-06-28 Outpatient Josy, [facility] [id number] 13:24:00 19:30:00 [place] 2016-05-31 2016-05-31 Outpatient Sahil Hunter Sahil T Binta [id number] eClinic 14:30:00 14:30:00 Binta Crespo ks 2016-05-17 2016-05-18 Outpatient Crow Calzada MH9 MH9 [id number] 11:39:00 18:19:00 Ali 2015-07-15 2015-07-20 Outpatient , MH9 MH9 [id number] 18:00:00 12:31:00 Alicia 05 Jefe 2015-07-13 2015-07-14 Outpatient , MH9 MH9 [id number] 13:41:00 15:50:00 Alicia 04 Jefe 2015-05-06 2015-05-07 Outpatient Kannan Pascual 9 [id number] 12:00:00 16:00:00 53 2014-07-31 2014-07-31 Outpatient DeFriece, MHIE MHIE [id number] 13:53:00 23:59:00 Ifeanyi Dobbins 2014-07-28 2014-07-28 Outpatient DeFriece, MHIE MHIE [id number] 16:00:00 23:59:00 Ifeanyi Mu 2013-11-27 2013-11-27 Outpatient DeFriece, MHIE MHIE [id number] 18:11:00 23:59:00 Ifeanyi Mu 2013-10-09 2013-10-09 Outpatient Lele, MHIE MHIE [id number] 08:55:00 23:59:00 Sriram 00 2013-05-17 2013-05-18 Outpatient Kannan Pascual IE IE [id number] 11:45:00 12:45:00 65 Results Test Description Test Time Test Comments Results Result Sour e Comments - INS GASTRO TUBE 2020-01-23 PERC 15:10:00 [facility] 1945 Sex: M Name: SHIRLENE NICHOLAS [place] : 1945 Age/S: 74 / M [id number] [address] Unit #: [id number] Loc: [place] [address] Phys: Sapna Rosas MD Acct: [id number] Dis Date: [id number] Status: DIS IN PHONE #: [phone] Exam Date: 01/02/2020 1200 FAX #: Reason: THROAT CA EXAMS: CPT: [id number] INS GASTRO TUBE PERC 71240 Fluoro Time: 00:24 DAP (Gy m2): 1 Air Kerma (mGy): 0.27 C3 Procedure: Aborted gastrostomy tube Indication: Dysphagia. Head and neck cancer. Date: 01/02/2020 Operators: Jason Rosa M.D. Medications: 1 mg IV glucagon IV Versed, and IV fentanyl Omvg-ag-cewy time: Approximately 30 minutes. Complications: None immediate Technique: Informed consent was obtained. The specific risks of bleeding, damage to adjacent organs,(liver and bowel) and infection were discussed and accepted. The anterior abdominal wall was prepped and draped in sterile fashion. The liver edge was ultrasonographically evaluated and marked on the skin. A metallic marker was placed at the lower costal margin on the left. IV glucagon was administered. Through a 5-Indonesian Kumpe catheter which was placed in the procedure room, the gastric lumen was insufflated with air. Fluoroscopy was utilized to exclude the presence of overlying bowel gas. Findings: Colon is seen overlying the stomach as noted on previous CT. The window is inappropriate for percutaneous gastrostomy tube placement. Impression: Aborted percutaneous gastrostomy tube. The referring service was notified at the time of the procedure. PAGE 1 Signed Report (CONTINUED) Name: SHIRLENE NICHOLAS [place] : 1945 Age/S: 74 / M [address] [address] Unit #: [id number] Loc: [place] [address] Phys: Sapna Rosas MD Acct: [id number] Dis Date: [id number] Status: DIS IN PHONE #: [phone] Exam Date: 01/02/2020 1200 FAX #: Reason: THROAT CA EXAMS: CPT: [id number] INS GASTRO TUBE PERC 38050 Fluoro Time: 00:24 DAP (Gy m2): 1 Air Kerma (mGy): 0.27 <Continued> at 1510 Reported and signed by: Jason Rosa M.D. CC: Sapna Rosas MD; Morteza Arriaza MD PAGE 2 Signed Report Name: SHIRLENE NICHOLASland : 1945 Age/S: 74 / M [address] [address] Unit #: [id number] Loc: [place] [address] Phys: Sapna Rosas MD Acct: [id number] Dis Date: [id number] Status: DIS IN PHONE #: [phone] Exam Date: 01/02/2020 1200 FAX #: Reason: THROAT CA EXAMS: CPT: [id number] INS GASTRO TUBE PERC 40594 Fluoro Time: 00:24 DAP (Gy m2): 1 Air Kerma (mGy): 0.27 <Continued> Technologist: Kanika Garcia Trnhib Date/Time: 01/23/2020 (1509) [email or web address] Orig Print D/T: S: 01/23/2020 (151) PAGE 3 Signed Report GLUCOSE BEDSIDE TESTING 2020-01-08 11:44:00 Test Item Value Reference Range Interpretation Comme nts GLUCOSE BEDSIDE TESTING (test code = GLUBED) 131 mg/dL 70-110 H GLUCOSE BEDSIDE [id number] 07:59:00 Test Item Value Reference Range Interpretation Comments GLUCOSE BEDSIDE TESTING (test code = 79 mg/dL 70-110 N GLUBED) GLUCOSE BEDSIDE [id number] 06:23:00 Test Item Value Reference Range Interpretation Comments GLUCOSE BEDSIDE TESTING (test code = 87 mg/dL 70-110 N GLUBED) GLUCOSE BEDSIDE [id number] 11:37:00 Test Item Value Reference Range Interpretation Comments GLUCOSE BEDSIDE TESTING (test code 101 mg/dL 70-110 N = GLUBED) GLUCOSE BEDSIDE [id number] 08:43:00 Test Item Value Reference Range Interpretation Comments GLUCOSE BEDSIDE TESTING (test code 114 mg/dL 70-110 H = GLUBED) GLUCOSE BEDSIDE [id number] 20:55:00 Test Item Value Reference Range Interpretation Comments GLUCOSE BEDSIDE TESTING (test code = 86 mg/dL 70-110 N GLUBED) - XR SWLW FUNC W/C [id number] 12:12:00 [facility] : 1945 Sex: M Name: SHIRLENE NICHOLAS [facility] : 1945ge/S: 74 / M [id number] [address] Unit #: [id number] Loc: [place] [address] Phys: Sapna Rosas MD Acct: [id number] Dis Date: Status: ADM IN PHONE#: [phone] Exam Date: 01/06/2020 1000 FAX #: Reason: MBS EXAMS: CPT: [id number] XR SWLW FUNC W/C V 51907 Fluoro Time:132 DAP (Gy m2): Air Kerma (mGy): 8.79 EXAMINATION: - XR SWLW FUNC W/C V. LOCATION: S17. HISTORY: MBS. Difficulty swallowing, dysphagia. COMPARISON: None. FINDINGS: Fluoroscopic assistance was provided to speech therapy. Images were obtained from oropharynx to thoracic inlet while patient ingested barium coated food and liquid. Please see separately dictated speech therapy note for reportand recommendation. Fluoroscopic time: 132 seconds. 8.79 mGy. IMPRESSION: Please see separately dictated speech therapy note for report and recommendation. at 1212 Reported and signed by: Gely Muller M.D. CC: Sapna Rosas MD; Morteza Arriaza MD PAGE 1 Signed Report Name: SHIRLENE NICHOLAS [place] : 1945 Age/S: 74 / M [address] [address] Unit #: [id number] Loc: [place] [address] Phys: Sapna Rosas MD Acct: [id number] Dis Date: Status: ADMIN PHONE #: [phone] Exam Date: 01/06/2020 1000 FAX #: Reason: MBS EXAMS: CPT: [id number] XR SWLW FUNC W/C V 44111 Fluoro Time: 132 DAP (Gy m2): Air Kerma (mGy): 8.79 <Continued> Technologist: Wayne Cleary, RT(R)(CT) Trnscb Date/Time: 01/06/2020 (1212) [email or web address] Orig Print D/T: S: 01/06/2020 (8223) PAGE 2 Signed ReportGLUCOSE BEDSIDE [id number] 11:57:00 Test Item Value Reference Range Interpretation Comments GLUCOSE BEDSIDE TESTING (test code 136 mg/dL 70-110 H = GLUBED) GLUCOSE BEDSIDE [id number] 10:25:00 Test Item Value Reference Range Interpretation Comments GLUCOSE BEDSIDE TESTING (test code 105 mg/dL 70-110 N = GLUBED) - XR CHEST 1 [id number] 07:39:00 [facility] : 1945 Sex: M Name: SHIRLENE NICHOLAS [facility] : 1945ge/S: 74 / M [id number] [address] Unit #: [id number] Loc: [place] [address] Phys: Magen Hammond MD Acct: [id number] Dis Date: Status: ADM IN PHONE#: [phone] Exam Date: 01/06/2020604 FAX #: Reason: pneumnonia EXAMS: CPT: [id number] XR CHEST 1 V 05618 Fluoro Time: DAP (Gy m2): Air Kerma (mGy): EXAM: - XR CHEST 1 V LOCATION: C3 HISTORY: pneumonia COMPARISON: 01/04/2020 FINDINGS: Single view of the chest. No indwelling lines or tubes. No pneumothorax. Minimal interstitial opacities identified at the right lung base. Small left effusion. The mediastinal contours are unremarkable/unchanged. No acute osseous findings are present. IMPRESSION: Small left pleural effusion and minimal interstitial pulmonary edema the right lung base. at 0739 Reported and signed by: LUIS ANGEL STANTON M.D. CC: Sapna Rosas MD; Magen Hammond MD; Morteza Arriaza MD PAGE 1 Signed Report Name: SHIRLENE NICHOLAS [place] : 1945 Age/S: 74 / M [address] [facility] Unit #: [id number] Loc: [place] [address] Phys: Magen Hammond MD Acct: [id number] Dis Date: Status: ADM IN PHONE #: [phone] ExamDate: 01/06/2020604 FAX #: Reason: pneumnonia EXAMS: CPT: [id number] XR CHEST 1 V 12503 Fluoro Time: DAP (Gy m2): Air Kerma (mGy): <Continued> Technologist: Tati Buchanan, RT(R)(CT) Trnscb Date/Time: 01/06/2020 (0739) [email or web address] Orig Print D/T: S: 01/06/2020 (0742) PAGE 2 Signed ReportGLUCOSE BEDSIDE [id number] 04:31:00 Test Item Value Reference Range Interpretation Comments GLUCOSE BEDSIDE TESTING (test code = 89 mg/dL 70-110 N GLUBED) GLUCOSE BEDSIDE [id number] 20:49:00 Test Item Value Reference Range Interpretation Comments GLUCOSE BEDSIDE TESTING (test code 109 mg/dL 70-110 N = GLUBED) GLUCOSE BEDSIDE [id number] 12:37:00 Test Item Value Reference Range Interpretation Comments GLUCOSE BEDSIDE TESTING (test code 160 mg/dL 70-110 H = GLUBED) - CT CHEST W/O [id number] 10:09:00 [facility] 1945 Sex: M Name: SHIRLENE NICHOLAS [facility] : 1945ge/S: 74 / M [id number] [address] Unit #: [id number] Loc: [place] [address] Phys: Sapna Rosas MD Acct: [id number] Dis Date: Status: ADM IN PHONE#: [phone] Exam Date: 01/05/2020 0958 FAX #: Reason:TANIKA CONGESTION EXAMS: CPT: [id number] CT CHEST W/O CONTRAST 68668 EXAM: - CT CHEST W/O CONTRAST INDICATION: CHEST CONGESTION LOCATION: T18 COMPARISON: None available TECHNIQUE: Volumetric CT acquisition of the chest with no intravenous contrast. All CT scans are performed using radiation dose reductiontechnique. Technical factors are evaluated and adjusted to insure appropriate moderation of exposure. Automated dose management technology is applied to adjust the radiation dose to minimize exposure while achieving a diagnostic quality image. FINDINGS: Lungs: Small bilateral pleural effusions. Associated small amount of bibasilar opacities, favored to reflect atelectasis. Mild emphysematous changes. Mediastinum: No cardiomegaly or pericardial effusion seen. Aorta does not appear aneurysmal. Lower Neck: Visualized thyroid appears unremarkable. Lymph Nodes: No enlarged lymph nodes seen. Upper abdomen: There is pneumoperitoneum again seen, essentially unchanged. Partially visualized gastrostomy tube. The tip and balloon appear to be located within the gastric lumen. Soft Tissues: No significant abnormality seen Bones: No acute or destructive osseous process is seen. IMPRESSION: Pneumoperitoneum again seen, essentially unchanged. Small bilateral pleural effusions. Associated small amount of bibasilar opacities, favored to reflect atelectasis rather than pneumonia.Mild erythematous changes. Please refer to the findings section for additional details. PAGE 1 Signed Report (CONTINUED) Name: SHIRLENE NICHOLAS [facility] : 1945 Age/S: 74 / M [address] [address] Unit #: [id number] Loc: [place] [address] Phys: Sapna Rosas MD Acct: [id number] Dis Date: Status: ADM IN PHONE #: [phone] ExamDate: 01/05/2020 0926 FAX #: Reason: TANIKA CONGESTION EXAMS: CPT: [id number] CT CHEST W/O CONTRAST 29002 <Continued> at 1009 Reported and signed by: Lalo Lao M.D. CC: Sapna Rosas MD; Morteza Arriaza MD Tech nologist:Anne-Marie Cuevas, RT(R)(CT) CTDI: DLP: Trnscb Date/Time: 01/05/2020 (1009) [email or web address] Orig Print D/T: S: 01/05/2020 (1012) PAGE 2 Signed ReportGLUCOSE BEDSIDE [id number] 07:56:00 Test Item Value Reference Range Interpretation Comments GLUCOSE BEDSIDE TESTING (test code 137 mg/dL 70-110 H = GLUBED) GLUCOSE BEDSIDE [id number] 00:33:00 Test Item Value Reference Range Interpretation Comments GLUCOSE BEDSIDE TESTING (test code 162 mg/dL 70-110 H = GLUBED) - CT ABD PELVIS [id number] 13:06:00 [facility] 1945 Sex: M Name: SHIRLENE NICHOLAS [facility] : 1945ge/S: 74 / M [address] [address] Unit #: [id number] Loc: [place] [address] Phys: Sapna Rosas MD Acct: [id number] Dis Date: Status: ADM IN PHONE#: [phone] Exam Date: 01/04/2020 1230 FAX #: Reason:abd pain EXAMS: CPT: [id number] CT ABD PELVIS W/CONT 19798 CT abdomen and pelvis with IV contrast. Indication: Abdominal pain Location: R16 Comparison: 01/02/2020 Technique: CT images of the abdomen and pelvis were obtained from the diaphragm to the pubic symphysis after the administration of intravenous contrast. Coronal and sagittal reformats are provided. One or more of the following dose reduction techniques were used: Automated exposure control, adjustment of the mA and/or kV according to patient size, and/or utilization of iterative reconstruction technique. Findings: Lungs bases: Emphysema is visualized at the lung bases. There are trace pleural effusions with adjacent atelectasis. Liver: Unremarkable. Gallbladder: Unremarkable. Pancreas: Unremarkable. Spleen: Unremarkable. Adrenal glands: There is no adrenal mass. Kidneys: There are bilateral renal cysts measuring up to 4.7 cm on the left with thin peripheral calcification. There is no renal calculus or hydronephros is. Bowel: There is no bowel obstruction. A gastrostomy tube is visualized with ballooninflated within the gastric antrum. There appears to be an ulceration at the anterior gastricantrum as best seen on axial image 28. The appendix is not definitively visualized, though there is no pericecal inflammation to suggest acute appendicitis. There are sigmoid colonicdiverticula without evidence of diverticulitis. Peritoneum: There are foci of air withinthe upper abdomen. There is trace pelvic ascites. Pelvis: The bladder appears thick-walled despite decompression by a Steinberg catheter. The prostate is unchanged in appearance. V ascular: There is no abdominal aortic aneurysm. Moderately extensive arterial atheroscleroticcalcifications are redemonstrated. Skeletal: There is no acute fracture. Impression: PAGE 1 Signed Report (CONTINUED) Name: SHIRLENE NICHOLAS [facility] : 1945 Age/S: 74 / M [address] [address] Unit #: [id number] Loc: [place] [address] Phys: Sapna Rosas MD Acct: [id number] Date: Status: ADM IN PHONE #: [phone] Exam Date: 01/04/2020 1230 FAX #: Reason: abd pain EXAMS: CPT: [id number] CT ABD PELVIS W/CONT 34240 <Continued> Interval development of upper abdominal foci of pneumoperitoneum and trace pelvic ascites, this may be related to the patient's recent gastrostomy tube placement. Of note, there appears to be an anterior gastric ulceration without definitive evidence for perforation at thissite. Thickened appearing bladder despite decompression, correlate with urinalysis to assess for cystitis. Trace pleural effusions with compressive atelectasis. Additional chronic findings as above. at 1306 Reported and signed by: Kevon Angela M.D. CC: Sapna Rosas MD; Morteza Arriaza MD Technologist:RT Linda(R) CTDI: DLP: Trnscb Date/Time: 01/04/2020 (1306) [email or web address] Orig Print D/T: S: 01/04/2020 (1896) PAGE 2 Signed Report- XR ABDOMEN 1 [id number] 08:50:00 [facility] 1945 Sex: M Name: SHIRLENE NICHOLAS [place] : 1945ge/S: 74 / M [address] [address] Unit #: [id number] Loc: [place] [address] Phys: Sapna Rosas MD Acct: [id number] Dis Date: Status: ADM IN PHONE#: [phone] Exam Date: 01/04/2020 08 FAX #: Reason: abd pain EXAMS: CPT: [id number] XR ABDOMEN 1 V 66587 Fluoro Time: DAP (Gy m2): Air Kerma (mGy): STUDY: Chest abdominal radiograph HISTORY: Abdominal pain, cough. COMPARISON: 01/02/2020 CT abdomen/pelvis. TECHNIQUE: Frontal view of the chest. 2 supine views of the abdomen. SITE:R16 FINDINGS: Chest: The cardiac silhouette is unremarkable. The aorta isatherosclerotic. The lungs are hyperaerated. There is no focal consolidation, pleural effusion, or pneumothorax. No acute osseous abnormalities are identified. There is dextroscoliosis of the midthoracic spine. ABDOMEN: A gastrostomy tube projects over left upper abdomen. There are adjacent vertically oriented surgical skin david. There is question of trace subdiaphragmatic free air. There are no air-filled dilated loops of bowel to suggest bowel obstruction. Arterial atherosclerotic calcifications are appreciated. IMPRESSION: Chest: No radiographic evidence for acute pulmonary abnormality. Abdomen: Question of trace subdiaphragmatic free air, this may be related to the patient's gastrostomy tube placement, correlate clinically. No air-filled dilated bowel loops to suggestbowel obstruction. at 0850 Reported and signed by: Kevon Angela M.D. CC: Sapna Rosas MD; Morteza Arriaza MD PAGE 1 Signed Report Name:SHIRLENE NICHOLAS [place] : 1945 Age/S: 74 / M [id number] Unit #: [id number] Loc: [place] [address] Phys: Sapna Rosas MD Acct: [id number] Dis Date: Status: ADM IN PHONE #: [phone] Exam Date: 01/04/2020 0837 FAX #: Reason: abd pain EXAMS: CPT: [id number] XR ABDOMEN 1 V 34228 Fluoro Time: DAP(Gy m2): Air Kerma (mGy): <Continued> Technologist: Anne-Marie Cuevas RT(R)(CT) Trnscb Date/Time: 01/04/2020 (0850) t.ISISR.RH16 Orig Print D/T: S: 01/04/2020 (0853) PAGE 2 Signed Report- XR CHEST 1 [id number] 08:50:00 [facility] 1945 Sex: M Name: SHIRLENE NICHOLAS [facility] : 1945ge/S: 74 / M [address] [facility] Unit #: [id number] Loc: [place] [address] Phys: Sapna Rosas MD Acct: [id number] Dis Date: Status: ADM IN PHONE#: [phone] Exam Date: 01/04/2020 0837 FAX #: Reason: cough EXAMS: CPT: [id number] XR CHEST 1 V 16956 Fluoro Time: DAP (Gy m2): Air Kerma (mGy): STUDY: Chest abdominal radiograph HISTORY: Abdominal pain, cough. COMPARISON: 01/02/2020 CT abdomen/pelvis. TECHNIQUE: Frontal view of the chest. 2 supine views of the abdomen. SITE:R16 FINDINGS: Chest: The cardiac silhouette is unremarkable. The aorta isatherosclerotic. The lungs are hyperaerated. There is no focal consolidation, pleural effusion, or pneumothorax. No acute osseous abnormalities are identified. There is dextroscoliosis of the midthoracic spine. ABDOMEN: A gastrostomy tube projects over left upper abdomen. There are adjacent vertically oriented surgical skin david. There is question of trace subdiaphragmatic free air. There are no air-filled dilated loops of bowel to suggest bowel obstruction. Arterial atherosclerotic calcifications are appreciated. IMPRESSION: Chest: No radiographic evidence for acute pulmonary abnormality. Abdomen: Question of trace subdiaphragmatic free air, this may be related to the patient's gastrostomy tube placement, correlate clinically. No air-filled dilated bowel loops to suggestbowel obstruction. at 0850 Reported and signed by: Kevon Angela M.D. CC: Sapna Rosas MD; Morteza Arriaza MD PAGE 1 Signed Report Name:SHIRLENE NICHOLAS [facility] : 1945 Age/S: 74 / M [address] [address] Unit #: [id number] Loc: [place] [address] Phys: Sapna Rosas MD Acct: [id number] Dis Date: Status: ADM IN PHONE #: [phone] Exam Date: 01/04/2020 0837 FAX #: Reason: cough EXAMS: CPT: [id number] XR CHEST 1 V 74812 Fluoro Time: DAP(Gy m2): Air Kerma (mGy): <Continued> Technologist: RT Rekha(R)(CT) Trnscb Date/Time: 01/04/2020 (0850) tVERENAR.RH16 Orig Print D/T: S: 01/04/2020 (0953) PAGE 2 Signed ReportBASIC METABOLIC [id number] 10:05:00 Test Item Value Reference Range Interpretation Comments SODIUM (test code = NA) 141 mmol/L 134-147 N POTASSIUM (test code = 3.6 mmol/L 3.4-5.0 N K) CHLORIDE (test code = 110 mmol/L 100-108 H CL) CARBON DIOXIDE (test 25 mmol/L 21-32 N code = CO2) ANION GAP (test code = 6.0 GAP calc 4.0-15.0 N GAP) GLUCOSE (test code = 100 MG/DL 70-110 N GLU) BLOOD UREA NITROGEN 3 MG/DL 7-18 L (test code = BUN) GLOMERULAR FILTRATION >=60 max estimate >60 RATE (test code = GFR) estGFR CREATININE (test code = 0.4 MG/DL 0.8-1.3 L CREAT) CALCIUM (test code = CA) 7.4 MG/DL 8.5-10.1 L [id number] 10:05:00 Test Item Value Reference Range Interpretation Comments MAGNESIUM (test code = MAG) 1.7 MG/DL 1.8-2.4 L PROTHROMBIN [id number] 09:57:00 Test Item Value Reference Range Interpretation Comments PT PATIENT (test code = PTP) 11.5 SECONDS 9.3-12.9 N INTERNATIONAL NORMAL RATIO 1.02 INR Unit 0.8-1.2 N (test code = INR) CBC W/AUTO [id number] 09:50:00 Test Item Value Reference Range Interpretation Comments WHITE BLOOD CELL (test code = 5.8 K/mm3 3.5-11.0 N WBC) RED BLOOD CELL (test code = 3.14 M/mm3 4.70-6.10 L RBC) HEMOGLOBIN (test code = HGB) 11.1 G/DL 12.3-15.9 L HEMATOCRIT (test code = HCT) 32.0 % 35.8-46.7 L MEAN CELL VOLUME (test code = 101.9 Fl 86.3-98.9 H MCV) MEAN CELL HGB (test code = MCH) 35.4 pg 28.9-34.4 H MEAN CELL HGB CONCETRATION 34.7 G/DL 32.1-34.5 H (test code = MCHC) RED CELL DISTRIBUTION WIDTH 13.2 SD 11.5-14.5 N (test code = RDW) PLATELET COUNT (test code = 189 K/mm3 150-450 N PLT) MEAN PLATELET VOLUME (test code 9.80 fL 7.0-9.6 H = MPV) NEUTROPHIL % (test code = NT%) 75.0 % 40-76 IMMATURE GRANULOCYTE % (test 0.2 % 0.0-5.0 N code = IG%) LYMPHOCYTE % (test code = LY%) 13.9 % 20.5-51.1 L MONOCYTE % (test code = MO%) 9.5 % 1.7-9.3 H EOSINOPHIL % (test code = EO%) 1.2 % 0.0-6.0 N BASOPHIL % (test code = BA%) 0.2 % 0.0-2.0 N NUCLEATED RBC % (test code = 0.0 /100WBC% 0.0-1.0 N NRBC%) NEUTROPHIL # (test code = NT#) 4.3 K/mm3 1.8-7.6 N IMMATURE GRANULOCYTE # (test 0.01 x10 3/uL 0.00-0.03 N code = IG#) LYMPHOCYTE # (test code = LY#) 0.8 K/mm3 0.6-3.0 N MONOCYTE # (test code = MO#) 0.6 K/mm3 0.2-1.5 N EOSINOPHIL # (test code = EO#) 0.1 K/mm3 0.0-0.4 N BASOPHIL # (test code = BA#) 0.0 K/mm3 0.0-0.2 N NUCLEATED RBC # (test code = 0.0 K/mm3 0.00-0.01 N NRBC#) MANUAL DIFF REQUIRED (test code NO DIFF/SCN CRITERIA = MDIFF) - CT ABD PELVIS W/O [id number] 10:46:00 [facility] : 1945 Sex: M Name: SHIRLENE NICHOLAS [facility] : 1945ge/S: 74 / M [address] [address] Unit #: [id number] Loc: [place] [address] Phys: Jason Rosa MD Acct: [id number] Dis Date: Status: ADM IN PHONE#: [phone] Exam Date: 01/02/2020 1004 FAX #: Reason:PEG placement planning EXAMS: CPT: [id number] CT ABD PELVIS W/O CONT 99528 EXAM: CT pelvis abdomen and without contrast HISTORY: 74 years -old Male with PEG placement planning, malnutrition long-term enteric feeding LOCATION CODE: C3 TECHNIQUE: Contrast - No IV contrast was given . Noncontrast phase - abdomen and pelvis Reconstructions - coronal and sagittal planes One or more of the following dose reduction techniques were used: Automated exposure control, adjustment of the mA and/or kV accordin g to patient size, and/or utilization of iterative reconstruction technique. Total Exam DLP : 152 mGy/cm CTDI vol: 3.24 mGy COMPARISON: None FINDINGS: Statements: Lack of intravenous contrast compromises evaluation of solid organs and vasculature. Thoracic: Included images of the lower chest demonstrate no abnormalities. Hepatobiliary: Liver is homogeneous throughout. The left margin extending to the level of midline. The gallbladder is unremarkable. Pancreas: No abnormality identified in the pancreas. Spleen: No abnormality identified in the spleen. Adrenals: No abnormality identified in either adrenal gland. Genitourinary: Right kidney : There is a 4 cm hypodense structure compatible with renal cysts reside at the medial aspect of the mid to lower pole. No hydronephrosis. no nephrolithiasis Left kidney: There is a 5 cm hypodense structure involving the left lower pole compatiblewith a renal cyst. No hydronephrosis no nephrolithiasis . PAGE 1 Signed Report (CONTINUED) Name: SHIRLENE NICHOLAS [facility] : 1945 Age/S: 74 / M [address] [facility] Unit #: [id number] Loc: [place] [address] Phys: Jason Rosa MD Acct: [id number] Dis Date: Status: ADM IN PHONE #: [phone] Exam Date: 01/02/2020 1005 FAX #: Reason: PEG placement planning EXAMS: CPT: [id number] CT ABD PELVIS W/O CONT 00845 <Continued> Evaluation of the bladder is limited, butno obvious bladder abnormality is present. Organs of Reproduction: Not well assessed due to the lack of IV contrast, though no gross abnormalities are identified. Gastrointestinal: Small bowel are unremarkable. Large bowel reveal minimal fecal retentionwithin the ascending and descending colon. The transverse colon does extend anterior to the stomach therefore may poses a problem in placement of the G-tube. The appendix is not wellseen. Vascular: Abdominal aorta reveal severe atherosclerotic calcification throughout. No aneurysmal dilatation. Extending into the common iliac artery bilaterally is seen. Lymph nodes: No enlarged lymph nodes by CT size criteria. Bones/Soft Tissues: No concerning bony lesion identified. No ventral hernias. Peritoneum/Other: No extraluminal air. No extraluminal fluid. IMPRESSION: 1. No free fluid, air, or inflammatory process. 2. Transverse colon extends anterior to the stomach, as discussed above. 3. Bilateral renal cysts. RECOMMENDATIONS: None. Internal Coding only:B3One or more of the following dose reduction techniques were used: Automated exposure control, adjustment of the mA and/or kV according to patient size, and/or utilization of iterative re construction technique. PAGE 2 Signed Report (CONTINUED) Name: SHIRLENE NICHOLAS [facility] : 1945 Age/S: 74 / M [address] [address] Unit #: [id number] Loc: [place] [address] Phys: Jason Rosa MD Acct: [id number] Dis Date: Status: ADM IN PHONE #: [phone] Exam Date: 01/02/2020 1006 FAX #:Reason: PEG placement planning EXAMS: CPT: [id number] CT ABD PELVIS W/O CONT 79293 <Continued> at 1046 Reported and signed by: French Vazquez M.D. CC: Sapna Rosas MD; Jason Rosa MD; Morteza Arriaza MD Technologist:Viola Leger, RT(R) CTDI: DLP: Trnscb Date/Time: 01/02/2020 (1046) t.SDR.HPD Orig Print D/T: S: 01/02/2020 (4269) PAGE 3 Signed ReportCOVID 19 INHOUSE [id number] 13:50:00 Test Item Value Reference Range Interpretation Comments COVID 19 INHOUSE AG NEGATIVE Negative Per manu facturer, (test code = negative result s should [id number]) be treated aspr esumptive and, if inconsi stent with clinical signs andsymptoms or necessary for patient man agement, should betested with an alternative mol ecular assay. Negative resultsdo not preclude SA RS-CoV-2 infection and s hould not be usedas the s ole basis for patient man agement decisions. Neg ative results should be considered in t he context of apatient's r ecent exposures, hist ory, presence of cli nicalsigns and symptoms co nsistent with COVID-19. CBC W/AUTO [id number] 12:12:00 Test Item Value Reference Range Interpretation Comments WHITE BLOOD CELL (test code = 9.0 K/mm3 3.5-11.0 N WBC) RED BLOOD CELL (test code = 3.65 M/mm3 4.70-6.10 L RBC) HEMOGLOBIN (test code = HGB) 13.0 G/DL 12.3-15.9 N HEMATOCRIT (test code = HCT) 40.1 % 35.8-46.7 N MEAN CELL VOLUME (test code = 109.9 Fl 86.3-98.9 H MCV) MEAN CELL HGB (test code = MCH) 35.6 pg 28.9-34.4 H MEAN CELL HGB CONCETRATION 32.4 G/DL 32.1-34.5 N (test code = MCHC) RED CELL DISTRIBUTION WIDTH 13.2 SD 11.5-14.5 N (test code = RDW) PLATELET COUNT (test code = 201 K/mm3 150-450 N PLT) MEAN PLATELET VOLUME (test code 9.90 fL 7.0-9.6 H = MPV) NEUTROPHIL % (test code = NT%) 68.1 % 40-76 N IMMATURE GRANULOCYTE % (test 0.7 % 0.0-5.0 N code = IG%) LYMPHOCYTE % (test code = LY%) 16.0 % 20.5-51.1 L MONOCYTE % (test code = MO%) 13.7 % 1.7-9.3 H EOSINOPHIL % (test code = EO%) 1.1 % 0.0-6.0 N BASOPHIL % (test code = BA%) 0.4 % 0.0-2.0 N NUCLEATED RBC % (test code = 0.0 /100WBC% 0.0-1.0 N NRBC%) NEUTROPHIL # (test code = NT#) 6.1 K/mm3 1.8-7.6 N IMMATURE GRANULOCYTE # (test 0.06 x10 3/uL 0.00-0.03 H code = IG#) LYMPHOCYTE # (test code = LY#) 1.4 K/mm3 0.6-3.0 N MONOCYTE # (test code = MO#) 1.2 K/mm3 0.2-1.5 N EOSINOPHIL # (test code = EO#) 0.1 K/mm3 0.0-0.4 N BASOPHIL # (test code = BA#) 0.0 K/mm3 0.0-0.2 N NUCLEATED RBC # (test code = 0.0 K/mm3 0.00-0.01 N NRBC#) MANUAL DIFF REQUIRED (test code NO DIFF/SCN CRITERIA = MDIFF) BASIC METABOLIC [id number] 12:12:00 Test Item Value Reference Range Interpretation Comments SODIUM (test code = NA) 133 mmol/L 134-147 L POTASSIUM (test code = 4.4 mmol/L 3.4-5.0 N K) CHLORIDE (test code = 101 mmol/L 100-108 N CL) CARBON DIOXIDE (test 28 mmol/L 21-32 N code = CO2) ANION GAP (test code = 4.0 GAP calc 4.0-15.0 N GAP) GLUCOSE (test code = 91 MG/DL 70-110 N GLU) BLOOD UREA NITROGEN 5 MG/DL 7-18 L (test code = BUN) GLOMERULAR FILTRATION >=60 max estimate >60 RATE (test code = GFR) estGFR CREATININE (test code = 0.6 MG/DL 0.8-1.3 L CREAT) CALCIUM (test code = CA) 8.5 MG/DL 8.5-10.1 N GERPITGMKINL8576-40-57 10:27:21240Nylqkdds PuscffhLLGKCPQAPFDO3466-90-85 10:27:000.51[facility] KkxprioDEULMLHYJUME0906-13-47 10:27:0026[facility] JWXFGUPOLENN2490-95-41 10:27:0097[facility] XldzfioVEXGGBIMPSOM4219-17-94 10:27:00 3.7[facility] HsmxfgnLBYLGRFERLER8601-73-43 10:27:007.8[facility] ZPGRFDMAGFDR7232-20-01 10:27:25357Ejfauzyd CpwaimzWHZILIVAPFNF0407-20-69 10:27:0012.7[facility] GqjqjdfTTNJHTZTCTYL6740-53-18 10:27:007[facility] MDGTIUPBUMYC8914-82-74 10:27:21084Rhgjepye HermannBACTERIAL - ZSWWKCMS4385-46-62 15:36:00Negative (06/23/16 10:36 AM)[facility] HermannBODY VRPXEB5017-17-93 15:36:0050[facility] HermannBODY EPMAQJ0191-98-73 15:36:54661Hpjzckkd HermannBODY UGKYKC1041-31-66 15:36:00Colorless (06/23/16 10:36 AM)[facility] HermannBODY FLUIDS 2016-06-23 15:36:00 Test Item Value Reference Range Interpretation Comments Tube Num CSF (test code = Tube Num CSF) 4 1 [facility]annBODY FWNPPP4964-07-82 15:36:38180Djgbtobu HermannBODY FLUIDS 2016-06-23 15:36:00Clear (06/23/16 10:36 AM)[facility]annBODY MHSUIA5870-61-64 15:36:0073[facility]annBODY XSCGMO5379-58-75 15:36:00Colorless (06/23/16 10:36 AM)[facility]annBODY ATMKFU9045-74-07 15:36:0082[facility] HermannBODY STXRKP8677-53-89 15:36:005[facility]annB[facility] MBJXFA6353-40-62 15:36:0012 [facility]annB[facility] HNPWGM3354-40-18 15:36:001[facility] HermannIMMUNOLOGY 2016-06-23 15:36:00Non Reactive (06/23/16 10:36 AM)[facility] HermannVIRAL - IRQULMVJ9061-80-89 15:36:00Negative (06/23/16 10:36 AM)[facility] HermannTOXICOLOGY 2016-06-23 14:34:744721Ekwntnmq FdvmzyzYTIIQSDMTO3865-81-45 14:34:0011.2[facility] HermannBACTERIAL - OIPRZLFR4744-47-33 09:34:00Urine *NA*(06/23/16 4:34 AM) [facility] HermannBACTERIAL - QBNFVSBO5094-05-09 09:34:00Negative (06/23/16 4:34 AM)[facility] XashtlzLWDIWQNOKRXK0686-63-68 09:20:94723Spypysmr [place] JHFQBEMSEGCG3901-49-58 09:20:0010[facility] MkhpymvPBNTIMQPLEPW4462-85-75 09:20:00 98[facility] RhuilcaEDUMTZUNKZRT8770-48-75 09:20:000.68[facility] YAONGWMVNZSQ2436-43-75 09:20:004.1[facility] KgdxcoyPQHDXKESRGKP0345-86-30 09:20:0097[facility] LorjxqsOTPNPUJGSXRC5867-36-21 09:20:0017.1[facility] CXDNMBHVDNYV1715-35-77 09:20:007.9[facility] VqtnshtHUNZQKRCGHHT2406-82-71 09:20:0019[facility] NpirncbCGBAAJSLFYQS4555-09-65 09:20:0098[facility] HermannCHEM YGQUV6599-77-31 09:19:0082[facility] HermannCHEM IHXXX7987-91-63 09:19:0012 [facility] HermannCHEM MKKHF3479-04-25 09:19:58849Usrqiexy HermannCHEM PANEL 2016-06-22 09:19:000.67[facility] HermannCHEM XCLJA9440-54-54 09:19:003.7[facility] HermannCHEM QNWKQ4780-15-51 09:19:0098[facility] HermannCHEM BUYTV1965-63-19 09:19:0023[facility] HermannCHEM UBSXS3191-92-26 09:19:008.0[facility] HermannCHEM JKCLH8734-18-86 09:19:0097[facility] HermannCHEM ZEMDZ6092-28-88 09:19:0015.7 [facility] KhmufqoPPTWQHIDKR5729-52-55 09:19:009.6[facility] HermannHEMATOLOGY 2016-06-22 09:19:0097[facility] ZjhhwnkJHLCFWXIGJ4662-54-63 09:19:008.3[facility] YymkyeuUZRDCGGFYB6226-89-56 09:19:004.78[facility] NzwypleBWBFNDMLSX4881-47-77 09:19:0016.3[facility] TyyhbzeHIPKPSFYKW5737-40-80 09:19:0034.0[facility] OINKNVPZFZ3314-27-08 09:19:0013.7[facility] OanpektKWJJKLTSMJ6536-23-69 09:19:00 48.0[facility] FhabrfiQFAEBJIVUK3143-38-73 09:19:01234.4[facility] HermannHEMATOLOGY 2016-06-22 09:19:00 Test Item Value Reference Range Interpretation Comments MCH (test code = MCH) 34.2 pg 27.0-31.0 [facility] JgixmehMETLNTPTGV2912-90-52 09:19:001+ *ABN*(06/22/16 4:19 AM)[facility] QjpkympTRQFCCMAKB3211-03-72 09:19:001.0[facility] JtaeeweRQPDDBKRPF0580-90-58 09:19:000.2[facility] QtahyjnLHIJTYEBDI6804-40-41 09:19:0012.1[facility] HYEZCMUEIR9393-76-53 09:19:005.5[facility] CotsubkDDKXKURXIB8961-78-09 09:19:00 81.7[facility] FbbjczoLUZDGLVLXO3171-34-00 09:19:000.5[facility] HermannHEMATOLOGY 2016-06-22 09:19:000.5[facility] HrblspxELTAASHGXR1546-87-22 09:19:006.8[facility] NmfvpukNZDQARCGTA6801-64-18 08:24:0057.8[facility] HermannCHEM JPNYY5016-37-36 00:57:001.6[facility] HermannURINE AND KSPNY9303-99-73 22:17:00Negative *NA*(06/21/16 5:17 PM)[facility]annURINE AND PJLMR2366-38-70 22:17:00Slight *ABN*(06/21/16 5:17 PM)[facility]annURINE AND MCMAU8711-43-58 22:17:005.0 [facility]annURINE AND COZSI8742-94-16 22:17:001.023[facility]annURINE AND SZHOT7780-80-44 22:17:00Yellow *NA*(06/21/16 5:17 PM)[facility]annURINE AND SYWVE1880-10-04 22:17:00Small *ABN*(06/21/16 5:17 PM)[facility]annUR[facility] AND VKWCH0149-99-56 22:17:00Negative (06/21/16 5:17 PM)[facility]annURINE AND FYWPQ0890-84-91 22:17:00Negative (06/21/16 5:17 PM)[facility] HermannCARDIAC VGHFCZK5795-64-14 21:15:000.02[facility] HermannCARDIAC KZRVGPQ4134-80-72 21:15:00 <0.5[facility] HermannCARDIAC YKALTYH5394-85-47 21:15:0049[facility] CARDIAC OYVKLPE1984-92-22 21:15:00<1.0[facility] HermannCHEM XMIWV1048-18-09 21:15:0025[facility] HermannCHEM YPOTO7970-00-48 21:15:003.6[facility] HermannCHEM AQVVL8662-97-01 21:15:000.9[facility] HermannCHEM LCCVU6626-64-82 21:15:0056 [facility]annCHEM SJGQF1170-01-63 21:15:0024[facility] HermannCHEM PANEL 2016-06-21 21:15:000.7[facility] HermannCHEM ZZMIR5955-01-99 21:15:003.2[facility] HermannCHEM TPSEK6054-33-05 21:15:0031[facility] HermannCHEM CHWUO8849-21-09 21:15:006.8[facility] LayyosyKHXCCUUJPO4875-04-22 21:15:00 Test Item Value Reference Range Interpretation Comments PT (test code = PT) 12.4 s 12.0-14.7 [facility] GnglcueQQMZZMPLMS8601-40-66 21:15:000.91[facility] HermannHEMATOLOGY 2016-06-21 21:15:009.2[facility] XtjhtmvXZKGPRRTAL2957-06-78 21:15:0013.6[facility] TfwvytsIENAAVPHZI0054-37-36 21:15:0016.4[facility] ZldjnguLCPWPBJKUP5049-56-04 21:15:0034.3[facility] PiyzgszYZYEVEMPZH8182-30-25 21:15:0099[facility] TXHHLMXWLU9167-52-15 21:15:0099.1[facility] UbkbsqwUKVBAWMWDY9022-82-62 21:15:00 Test Item Value Reference Range Interpretation Comments MCH (test code = MCH) 34.0 pg 27.0-31.0 [facility] DyiqccmIZIAQVFPGT9527-14-08 21:15:0047.9[facility] HermannHEMATOLOGY 2016-06-21 21:15:0010.1[facility] KoqxnyqRXAGAYKZEN8657-22-74 21:15:004.83[facility] VvmfvmnCCWSLSIORV2903-27-39 21:15:00 Test Item Value Reference Range Interpretation Comments PTT (test code = PTT) 28.2 s 22.9-35.8 [facility] QxhlwgvAEECBJNMUJ3657-08-28 21:15:001.0[facility] HermannHEMATOLOGY 2016-06-21 21:15:0085.4[facility] AykyotjQEABKCAHLQ1587-18-99 21:15:000.3[facility] UhygzjzYDTSCDFJRO6094-29-79 21:15:000.2[facility] OihsnkxYTOTKRYCQA1668-25-18 21:15:0010.2[facility] WhrjwygSBIIOGDEGS3715-70-16 21:15:003.9[facility] UXJMEJYNGX7376-54-39 21:15:000.4[facility] OofwbczOHZCOXMHAL5967-83-11 21:15:008.6 [facility] OcdazojDVVGCEPDUP7041-18-30 21:15:00Normal (06/21/16 4:15 PM)[facility] OjsenzeTDQXYNIAVK4951-25-68 21:15:00Normal (06/21/16 4:15 PM)[facility] HZESO1368-87-84 21:15:00Negative (06/21/16 4:15 PM)[facility] HermannVIRAL - TFFGARIF4288-88-97 21:15:00Negative (06/21/16 4:15 PM)[facility] HermannVIRAL - HIPUARQH0618-88-91 21:15:00Negative (06/21/16 4:15 PM)[facility] HermannCHEM PANEL 2016-05-18 11:43:0092[facility] HermannCHEM ELYOG9038-56-71 11:43:0049[facility] HermannCHEM AUCER7550-86-31 11:43:000.6[facility] HermannCHEM WMYTB8786-77-06 11:43:005.0[facility] HermannCHEM JIGRV4189-24-43 11:43:0023[facility] HermannCHEM YMMGY4466-36-87 11:43:0023[facility] HermannCHEM ONVWM2980-01-52 11:43:002.5 [facility] HermannCHEM NNDCN5238-09-63 11:43:002.5[facility] HermannCHEM PANEL 2016-05-18 11:43:001.0[facility] HermannCHEM IZYVG5930-71-16 11:43:0021[facility] HermannCHEM FUFMT0539-72-20 11:43:0011[facility] HermannCHEM WRDJO8477-45-64 11:43:000.76[facility] HermannCHEM AVZUF0433-19-33 11:43:0014.6[facility] CHEM VIWQF7764-46-35 11:43:008.0[facility] HermannCHEM HHOVL4077-47-83 11:43:003.6 [facility] HermannCHEM BJZUI7623-71-18 11:43:64724Lpqcrlxf HermannCHEM PANEL 2016-05-18 11:43:0095[facility] HermannCHEM RWBFU6330-09-66 11:43:31645Zukyewta HermannCHEM CFATO9535-99-60 11:43:008[facility] NzsmhaqBZRGMCTLTC3610-47-64 11:43:003.1[facility] LknttaeHMARFOFSEL7424-71-39 11:43:001.4[facility] SSASDKYTFV6383-68-35 11:43:003.2[facility] IzzbixbJFZAZUJHDM1284-56-12 11:43:00 11.9[facility] WaqrxvqSXTRPBUHSG0773-25-81 11:43:000.4[facility] HermannHEMATOLOGY 2016-05-18 11:43:001+ *ABN*(05/18/16 5:43 AM)[facility] LscenhpAUVCWXRJOA7299-07-23 11:43:000.2[facility] PteeyxgHTZVFZOAYJ1494-68-60 11:43:000.6[facility] PYVJDTMBXH7319-45-14 11:43:0025.2[facility] HxciobaDVCFRYXAKL9641-76-08 11:43:00 59.4[facility] FafzlzgHAEGCHEYUN9166-57-76 11:43:003.95[facility]annHEMATOLOGY 2016-05-18 11:43:005.4[facility] XptmdxcOWMMVQDHDF8987-57-71 11:43:43415Ifnfhlir VqtvmciYLDFYQMQRD4310-08-13 11:43:0014.1[facility] AyubsguDDDHTAPTAZ6050-51-24 11:43:009.1[facility] WcwvkotZLLVLWBMBR7918-26-98 11:43:45051.8[facility] VAGKNNHDBD1414-33-25 11:43:0033.5[facility] ZykktnfTGJDWDKIPI3211-20-01 11:43:00 Test Item Value Reference Range Interpretation Comments MCH (test code = MCH) 35.1 pg 27.0-31.0 [facility] FngyqrtUCFHSUBOOR8739-84-04 11:43:0041.3[facility]annHEMATOLOGY 2016-05-18 11:43:0013.9[facility] HermannCHEM QSGFI0154-19-53 00:40:001.2[facility] MjdqyeiYQABVVCWWA5429-54-41 00:40:00<2.9[facility] OqjkmznKULJAJAYVH5453-63-82 19:08:009.3[facility] EaneowmQYLDMUXJEO7291-95-18 19:08:19457Torggwrg [place] EZMRXFEVOY4988-34-10 19:08:0014.3[facility] TxhebsdMGSVEFVUYT3605-68-39 19:08:00 34.4[facility] AvmcfgmFRTYSNDSMV2328-18-94 19:08:0017.1[facility]annHEMATOLOGY 2016-05-17 19:08:004.78[facility] OmgfjunGSTIUFHNDR1453-58-04 19:08:008.4[facility] VmrcmcpGAWPXLWOHA4803-70-63 19:08:00 Test Item Value Reference Range Interpretation Comments MCH (test code = MCH) 35.7 pg 27.0-31.0 [facility] OdxxzhrHVMRVCCZPD6840-03-40 19:08:84144.6[facility]annHEMATOLOGY 2016-05-17 19:08:0049.6[facility] LhqlberVMAIVGLTUL2537-08-62 19:08:001+ *ABN*(05/17/16 1:08 PM)[facility] WrskohgFPQLBWPOJQ1839-28-22 19:08:000.9[facility] GrufwlbURCMXSAUVJ5978-38-42 19:08:000.1[facility] JqnkbssGACDIRXLFO7166-30-80 19:08:006.0[facility] WhuemseWKZOIRZZFU5006-66-44 19:08:001.1[facility] FURPNBWRLK3709-71-62 19:08:001.3[facility] XdyvjnjFGLMXKFSYP9252-45-74 19:08:000.5 [facility] PxiiogmPLUSZWTRXG7710-84-75 19:08:0010.9[facility]annHEMATOLOGY 2016-05-17 19:08:0015.9[facility] TcvmgfpVLWQWLIIQN4128-22-39 19:08:0071.6[facility] HermannCHEM TDBKP1773-67-40 19:03:001.7[facility] DfeymgoLMXZJOLUULKZ9175-80-81 19:03:0018.3[facility] FiioxuxNAUVFAETWRAG6153-53-11 19:03:006[facility] XRZTLWZWPLQJ5476-30-51 19:03:003.7[facility] JorlxypGGRZEXUOUBDV4444-16-60 19:03:001.0[facility] PvgnapyHSBXQPBBOBMU9880-32-21 19:03:0032[facility] WKSCDAHMEDGS4219-99-57 19:03:003.7[facility] QzqoqzzMURWNFZMGKNG1250-25-58 19:03:0033[facility] MhtymhgGCEYITNIYLVK9848-42-63 19:03:0068[facility] YCIXSBLLKBNJ2130-50-26 19:03:000.5[facility] OzcfywxZHYLIQBKYGQX1670-09-06 19:03:67071Deyauhqg YpciekhQKUGHBZDZSYR3164-74-76 19:03:46693Kzvgotre [place] XAIBCZUHCZDZ1694-25-48 19:03:003.3[facility] OccihwcJSBUGYOUYNDJ6689-39-63 19:03:008.8[facility] JycgpvtUHISFGXRYYPX2980-27-49 19:03:0024[facility] WENMINXDJPNX0688-04-85 19:03:007.4[facility] YycsfxnMPGOWNRFCGGU4318-78-60 19:03:000.89[facility] LzoxqkpKVXRQFPUVSTZ4538-11-43 19:03:005[facility] WEBHMHTGFCTP0926-65-94 19:03:0089[facility] MtbedaxUANDHRMPSPCP7693-90-81 19:03:00 87[facility] HermannCHEM RKYGW5220-45-14 19:27:0092[facility] HermannCHEM PANEL 2015-07-19 19:27:008.8[facility]annCHEM KRWZF1400-91-33 19:27:000.78[facility] HermannCHEM IGHDI8891-23-29 19:27:71558Olkjlaxp HermannCHEM CJSIZ7258-77-09 19:27:11775Ylaackhu HermannCHEM UNHWK7339-66-65 19:27:0019[facility] HermannCHEM FJWCP5958-21-25 19:27:83312Amlteunx HermannCHEM RLPAU4831-98-99 19:27:004.5 [facility]annCHEM QRXRX2962-68-65 19:27:0028[facility] HermannCHEM PANEL 2015-07-19 19:27:0011.5[facility] GltsletWHOBFLDJRM1192-46-09 19:27:001+ *ABN*(07/19/15 2:27 PM)[facility] RgpfxbqGSQFEBXUJR2296-72-40 19:27:000.2[facility] AqnyoixHZJHVPLDNK0772-94-62 19:27:0011.8[facility] MddbltaZJQETNTEOR6969-69-22 19:27:000.0[facility] RgtrgmrVXNRSWMDSZ3118-45-91 19:27:000.4[facility] TONETZLYLR0493-88-62 19:27:001.4[facility] JkatktdEOAYREQNKH3075-54-26 19:27:000.3 [facility] EemvswgUNUILHCEVF5604-71-82 19:27:002.0[facility]annHEMATOLOGY 2015-07-19 19:27:0093.2[facility] SudrclgPOPZNOGGKX1328-82-49 19:27:00Normal (07/19/15 2:27 PM)[facility] JmvcxgmPSDUPXUCSX4264-40-26 19:27:00Normal (07/19/15 2:27 PM)[facility] OvlydwuSSHAAQXTFK8619-49-95 19:27:000.0[facility]annHEMATOLOGY 2015-07-19 19:27:003.4[facility] UozimouBFHWXATSOI6185-03-29 19:27:00 Test Item Value Reference Range Interpretation Comments MCH (test code = MCH) 32.9 pg 27.0-31.0 [facility] EceotioALYCIZEMQP8830-35-72 19:27:68061.1[facility]annHEMATOLOGY 2015-07-19 19:27:0032.6[facility] DemgtnaTGCDBWMQQC6323-20-87 19:27:0012.6[facility] ZqcecluILJIQBOANG7531-00-86 19:27:004.21[facility] BsadikpVKPDUJZFQK2908-67-65 19:27:0013.9[facility] QltthidIWVBZTFHRN1669-37-61 19:27:0042.6[facility] HQHTXUXEUF0677-36-55 19:27:008.4[facility] HssevjiKLEWTMCRKB9878-54-66 19:27:58930 [facility] QqqqxasEYCQPBKZIT1148-96-75 19:27:0014.6[facility] HermannELECTROLYTES 2015-07-16 10:10:009.3[facility] NtmsthbHALPUYPXEDML0509-24-45 10:10:0014[facility] AqjnajwITYTUBKZKTAT6283-25-73 10:10:003.2[facility] LqewlffVTGHWWNZMEAY8692-06-40 10:10:000.9[facility] PndqyvnRRHVTWGTGRFZ4026-20-95 10:10:004.3[facility] VPYCMKEDNAIE6817-00-33 10:10:58950Bhujmstt VupvpbqXZNRQOVHHUDO4296-82-82 10:10:68646Qfjjopal RfrevtgGNWRRAPJJKEC5713-34-49 10:10:0076[facility] DWEKFJCTXEPZ2338-95-38 10:10:76659Qkzuauph TyzcwevCPZMJDJOZPFD2852-57-58 10:10:0014[facility] LvupqapMTDLDHTRXCLR0311-52-29 10:10:001.01[facility] KVVUDDLWVZNN6033-11-60 10:10:008.2[facility] UjjtipsGAYYTRMLYJRX0262-37-51 10:10:0028[facility] UogepocWLZGNRSXUYOL9491-25-54 10:10:003.0[facility] KXKHJMAWSIFY2284-66-10 10:10:0029[facility] VumoaoyHEWLWSKIXVXL0214-46-36 10:10:00 6.2[facility] ZwofiblZNMRVQJPMBOX5224-44-59 10:10:000.4[facility] ENAFDRLSBPKE9656-34-12 10:10:0036[facility] UdexkjnFBHQPMCRXJJV3777-40-75 10:10:00 56[facility] UuqczlwCBVGIOTZOF9437-03-65 10:10:002.3[facility]annHEMATOLOGY 2015-07-16 10:10:0010.4[facility] ZxpvpigVXZHGZZWVF2587-73-15 10:10:000.0[facility] LlgkdhtEMNGGHJUBE8975-52-26 10:10:003.2[facility] LaznjqnBXYGIIHBYO0814-75-96 10:10:0094.5[facility] IfvkpeeUODKKVUMAO2363-88-40 10:10:000.0[facility] HOKIQTWWYB5011-28-05 10:10:000.0[facility] RkoirtmEXBQRYPBVN9115-17-07 10:10:000.0 [facility] KnpxjosNHOSQNGZCR8964-69-66 10:10:000.3[facility] HermannHEMATOLOGY 2015-07-16 10:10:000.3[facility] IyntjcwUCCKZURKJU7117-26-53 10:10:0033.3[facility] OqgnijeXZNOARECVR1726-87-01 10:10:008.4[facility] LosxwbdGMMILILSHP1159-98-85 10:10:14857Jjenkbbn DeqymlqTFJOOVACRL5143-34-92 10:10:00 Test Item Value Reference Range Interpretation Comments MCH (test code = MCH) 33.6 pg 27.0-31.0 [facility] FimhhmxVQQFZLVBPN5400-04-40 10:10:0015.5[facility] HermannHEMATOLOGY 2015-07-16 10:10:0013.6[facility] CtrwnayXNBLHHOLKD9831-81-09 10:10:004.05[facility] GrtjscaXSEPXGCMHY5841-26-48 10:10:82125.9[facility] UfluadpOMYFXIXIRY9034-20-23 10:10:0040.9[facility] XdozmiyOBGAISYGUK5443-23-47 10:10:0011.0[facility] CHEM JBGNJ8919-61-72 23:15:0014[facility] HermannCHEM VIDCV5115-30-27 23:15:17999 [facility]annCHEM GZZWX6304-86-87 23:15:65827Oekfeohc HermannCHEM PANEL 2015-07-15 23:15:29549Zkjuxjnu HermannCHEM IOSHG0367-56-39 23:15:004.1[facility] HermannCHEM HUMFL0593-31-24 23:15:0025[facility]annCHEM DTBJN8016-87-76 23:15:003.5[facility]annCHEM RZBJF4230-95-34 23:15:008.9[facility] HermannCHEM ULYXK0636-06-68 23:15:0063[facility]annCHEM QPXEQ1988-69-41 23:15:0035 [facility]annCHEM FUAVJ8144-51-99 23:15:001.17[facility]annCHEM PANEL 2015-07-15 23:15:0040[facility]annCHEM VGHWT4278-71-91 23:15:007.0[facility]annCHEM LJMMI2095-75-85 23:15:0066[facility]annCHEM CDJYL4995-08-89 23:15:000.4[facility] HermannCHEM DMING6096-24-54 23:15:0015.1[facility] HermannCHEM AUIBI6507-30-00 23:15:003.5[facility] HermannCHEM PWUYL5233-05-90 23:15:001.0 [facility]annCHEM TJGHA1768-01-11 23:15:0012[facility]annHEMATOLOGY 2015-07-15 23:15:000.98[facility] WicuzsiQNVGDSTWKZ7099-79-60 23:15:00 Test Item Value Reference Range Interpretation Comments PT (test code = PT) 13.3 s 12.0-14.7 [facility] OobzuygIXTAOBBHRX5140-14-59 23:15:12610Lmzykwrb HermannHEMATOLOGY 2015-07-15 23:15:008.1[facility] ZoxvdrnTRAUKBLUKB9723-47-62 23:15:0045.9[facility] NfgqigeJHVIJQJSYZ6412-45-81 23:15:0032.4[facility] YymtaplDENQUAZWYD3756-01-10 23:15:0015.2[facility] AfwkqhjEFLACHQYWN1370-39-18 23:15:75603.9[facility] GEFJWGMTRR9298-55-69 23:15:00 Test Item Value Reference Range Interpretation Comments MCH (test code = MCH) 33.0 pg 27.0-31.0 [facility] OxuffdxAXEIFFQVZQ0494-15-72 23:15:0017.8[facility] HermannHEMATOLOGY 2015-07-15 23:15:004.51[facility] BelnqqoRQLKAHPCOA3797-81-72 23:15:0014.9[facility] NpzujvsNVMWGCHIGB9019-76-36 23:15:001.1[facility] BaixrwnFCLHTMPJEE1352-01-16 23:15:000.0[facility] IdetekhOCHWNJTIQO1626-95-88 23:15:0015.4[facility] NKMHTVKPSZ1380-58-02 23:15:001.4[facility] JzhhoutSVKFHDGSAI7312-67-32 23:15:000.0 [facility] DzyhsnzECZIHYOVIY2238-97-16 23:15:000.0[facility] HermannHEMATOLOGY 2015-07-15 23:15:000.1[facility] DpwvshhOOGKASSJBA3414-26-32 23:15:001+ *ABN*(07/15/15 6:15 PM)[facility] NqnjwwlXYZJVTQDNA6675-57-36 23:15:006.0[facility] MsgforjRWPNPUICGF8319-39-49 23:15:00Normal (07/15/15 6:15 PM)[facility] GZXFIUNALP1955-37-87 23:15:00Normal (07/15/15 6:15 PM)[facility]annHEMATOLOGY 2015-07-15 23:15:007.7[facility] MxcmkswIPQGNDKROV7718-72-55 23:15:0086.2[facility] HermannCHEM CIPHH0281-47-27 10:30:0088[facility] HermannCHEM ANGTH4496-92-56 10:30:0011.4[facility] HermannCHEM ONWPL9059-49-84 10:30:008.9[facility] HermannCHEM OOZHY2070-69-30 10:30:0028[facility]annCHEM EACCC7011-98-19 10:30:0010 [facility]annCHEM UZHSC2886-30-49 10:30:000.87[facility] HermannCHEM PANEL 2015-07-14 10:30:68508Kuwogxdu HermannCHEM UWOYD2354-54-22 10:30:48315Jgjtosks HermannCHEM JTMON5648-19-60 10:30:004.4[facility] HermannCHEM QRASW9445-11-58 10:30:44964Tlmytzyw AdthjpeJTONREVDZN4711-00-03 10:30:000.0[facility] EIJIFHNXBT2428-62-75 10:30:000.0[facility] MoiomjiBBUAXSDJMK6636-80-76 10:30:000.1 [facility] EsrjegwHKHATNUNSZ4440-10-13 10:30:001.9[facility] HermannHEMATOLOGY 2015-07-14 10:30:0092.6[facility] GqcuhzkBJATWJSCZI8208-48-56 10:30:005.5[facility] JwhrkmpCGDTRMCFSE2045-11-03 10:30:000.0[facility] IqzeisuTYSGRJLEXU0754-49-64 10:30:000.0[facility] IggeoueHFNGKHVKCI8856-44-70 10:30:005.1[facility] PMKBUCTVIN2341-77-61 10:30:000.3[facility] YthcovdQZZVFEAHBT7687-77-66 10:30:00 100.8[facility] IkcaflgXFSDZFRTVW8875-24-26 10:30:16118Nnoofbwt HermannHEMATOLOGY 2015-07-14 10:30:008.1[facility] UliqvxaSVTCYJGLLC1446-87-84 10:30:0014.9[facility] UhkrahsAQEWMPLHVM7664-57-64 10:30:0013.6[facility] PsgnmneMKDXJXPSEY0166-97-96 10:30:004.11[facility] OluyfkuQDOZQGELHV9346-18-69 10:30:0041.5[facility] VAWWBLSJAD3965-59-35 10:30:005.5[facility] BosksrdZNKQQMXCOR8547-54-65 10:30:00 Test Item Value Reference Range Interpretation Comments MCH (test code = MCH) 33.0 pg 27.0-31.0 [facility] MqpbomkLBEBVAACCT5318-66-34 10:30:0032.7[facility] HermannCHEM PANEL 2015-07-14 01:11:0093[facility] HermannCHEM WNQIS9269-76-91 01:11:000.76[facility] UcettnlGZDJWRGHPM9309-38-52 01:11:11298Mghypxmw LrceqtmBNYJOROYBN4205-89-39 01:11:00 Test Item Value Reference Range Interpretation Comments PTT (test code = PTT) 26.6 s 22.9-35.8 [facility]annCARDIAC MKWQPPP5778-10-32 21:04:0070[facility] HermannCARDIAC BAOWNIB7342-32-41 21:04:00<0.02[facility] HermannCARDIAC GHEPXUG7649-38-83 21:04:001.7[facility] HermannCARDIAC HDMCCLC3128-85-54 21:04:002.4[facility] CHEM JKFUD4861-14-80 21:04:0028[facility]annCHEM SUJMD1616-62-91 21:04:0030 [facility]annCHEM VQLVB7488-05-17 21:04:003.0[facility] HermannCHEM PANEL 2015-07-13 21:04:006.6[facility] HermannCHEM TLTOW9861-81-99 21:04:008.8[facility]annCHEM KWGDG3070-12-84 21:04:003.6[facility] HermannCHEM KPCGW1324-88-77 21:04:006[facility]annCHEM PIBAV8819-83-28 21:04:0011.8[facility] HermannCHEM AULRD2458-90-56 21:04:000.4[facility] HermannCHEM UCKTZ7394-51-05 21:04:0065 [facility]annCHEM DNKKW9072-41-70 21:04:005[facility]annCHEM PANEL 2015-07-13 21:04:86746Xhyohhas HermannCHEM XYYKS3925-21-95 21:04:0029[facility] HermannCHEM IEIRA6474-53-27 21:04:13831Sqqqdbeq HermannCHEM IOIOF3541-76-37 21:04:003.8[facility] HermannCHEM LCJNJ5868-78-22 21:04:75235Tyvgskaq HermannCHEM BZOTG9085-65-43 21:04:000.80[facility] HermannCHEM JZHYW4139-28-90 21:04:000.8 [facility]annCHEM ZVJFJ5026-76-92 21:04:0091[facility] HermannHEMATOLOGY 2015-07-13 21:04:008.5[facility] JzcwphrWGEQVSVFQB8847-28-72 21:04:0015.2[facility] OpeavykCLONGHXGLA9861-62-19 21:04:90189Yslhjpsc CgtwabwGTXYVLPGFX4026-50-10 21:04:0033.1[facility] JhumqsaFUCMQXSYHW9407-56-13 21:04:005.8[facility] IYTLLHDANT5716-50-56 21:04:0099.9[facility] YztcuggXIYRJWYYPJ4036-95-35 21:04:00 Test Item Value Reference Range Interpretation Comments MCH (test code = MCH) 33.0 pg 27.0-31.0 [facility] BaswedfAXEECTDKYI8924-63-11 21:04:0042.8[facility] HermannHEMATOLOGY 2015-07-13 21:04:004.28[facility] IbzszelGVVOGIJUIE6181-15-21 21:04:0014.2[facility] AhnonedXVXSGZWNVM1320-23-31 21:04:005.8[facility] UjefwwkNFTYJDXQGT8233-15-00 21:04:000.0[facility] XkbkpssPSISMZAOEN6767-31-27 21:04:0010.7[facility] DLNAJWGGLO3889-53-33 21:04:000.3[facility] ZyrryauUSYZODOXFC7623-26-08 21:04:000.6 [facility] OxiaznsFKUOPMGVZZ7193-96-19 21:04:000.0[facility] HermannHEMATOLOGY 2015-07-13 21:04:0083.4[facility] RuotcgzHTXKFVTSVO0767-48-00 21:04:004.8[facility] XesqetkBOLWAYTAZH9494-66-60 21:04:000.1[facility] FdewzrpEPBBBCYFGQ1974-59-30 21:04:000.0[facility] HermannCHEM JSCRK4776-64-71 10:54:002.2[facility] HermannCHEM BMWQC0640-70-03 10:54:0091[facility] HermannCHEM BXXFS4549-10-21 10:54:003.1 [facility]annCHEM BDLCV9775-08-35 10:54:000.9[facility] HermannCHEM PANEL 2015-05-06 10:54:51124Cxiffroo HermannCHEM IUTZF9000-84-55 10:54:000.3[facility] HermannCHEM XGVKZ4377-53-77 10:54:0014.1[facility] HermannCHEM GSMOX7521-07-37 10:54:0025[facility]annCHEM GVNUS1373-63-81 10:54:000.79[facility]annCHEM ATLSA8586-53-86 10:54:0020[facility]annCHEM TBQXG3356-70-29 10:54:0025 [facility]annCHEM NINGC4404-20-49 10:54:008.4[facility] HermannCHEM PANEL 2015-05-06 10:54:006.0[facility] HermannCHEM WLUWR0737-34-25 10:54:002.9[facility]annCHEM ISJDI2085-77-49 10:54:0074[facility]annCHEM UJYWT9431-58-34 10:54:0022[facility]annCHEM GBLGC7685-97-72 10:54:0046[facility]annCHEM AHCGO9749-10-25 10:54:004.1[facility] HermannCHEM GREDC5748-99-19 10:54:24067 [facility]annCHEM DXBNN1284-37-78 10:54:76024Bxkhafjc HermannHEMATOLOGY 2015-05-06 10:54:0014.1[facility] HholpjdOFKXQLHNIP0107-58-52 10:54:004.17[facility] LuwbvqwMPFIUCXGZS9778-30-95 10:54:0013.8[facility] DzvtvbhZJZZUPUWPC6949-54-33 10:54:0033.5[facility] QqdiqyjPCYDXZUIKK6459-94-22 10:54:008.9[facility] ZWEWNFKWHY9487-51-16 10:54:57964Dkmijrye MiowkzbUEVQENRTBT4763-85-30 10:54:00 13.0[facility] IwyvodpFBKVZTRRKJ3755-63-93 10:54:0042.0[facility] HermannHEMATOLOGY 2015-05-06 10:54:00 Test Item Value Reference Range Interpretation Comments MCH (test code = MCH) 33.8 pg 27.0-31.0 [facility] VdtkgklTKPZPKOZVR6906-17-28 10:54:52964.7[facility] HermannCHEM PANEL 2015-05-04 23:48:0072[facility] HermannCHEM KDMRX9060-14-61 23:48:001.05[facility] HermannCHEM FZXTS9243-13-68 23:48:92714Bwgtfsqi HermannCHEM ZCZKA9872-67-04 23:48:0022[facility] HermannCHEM EHRWJ7896-97-66 23:48:16116Vxgearqj HermannCHEM WWUVA1467-16-52 23:48:008.7[facility] HermannCHEM DXUWH8582-04-40 23:48:0029 [facility]annCHEM DWLOF9178-67-35 23:48:004.3[facility] HermannCHEM PANEL 2015-05-04 23:48:84663Mmfuwflp HermannCHEM BGZAI4528-41-70 23:48:0011.3[facility] BqedrsfDLOVOEFALE2950-89-98 23:48:0045.4[facility] HxlmvgjPXGFCDTLLI8452-67-12 23:48:00 Test Item Value Reference Range Interpretation Comments MCH (test code = MCH) 33.8 pg 27.0-31.0 [facility] UodaufiXZUQOAUPGO6564-49-93 23:48:11865.0[facility] HermannHEMATOLOGY 2015-05-04 23:48:008.7[facility] XcucivdNPXAOHMXZL4797-36-25 23:48:0033.5[facility] WxwfhzyFSNXNZAJLU9634-71-99 23:48:0015.2[facility] BezljnkGVXZZIXSWV0830-49-59 23:48:004.50[facility] AlhfnqrAZROUDKWCR0365-54-26 23:48:0012.5[facility] AISBAFENPT6403-75-05 23:48:73334Ogrgrtrk MvzxgzeDIUPBJDAQA5925-57-09 23:48:00 14.0[facility] JxdrpqrVOQTPWLQEQOR9075-28-69 19:10:0011.8[facility] YZMUGYNBRDKP8520-99-06 19:10:03086Eosogshc YojmxdtWAHLUSMWBDMZ5227-96-46 19:10:31053Zdpvkdfd YknotogSGMWTFZHLHPR2408-70-07 19:10:003.8[facility] RXTJHBSQELRF0120-87-88 19:10:0088[facility] MmxzbqvROCQQAKBEAGI8759-67-13 19:10:00 104[facility] NagsbazKSNVZIXOCUYU6596-07-79 19:10:0027[facility] HermannELECTROLYTES 2013-05-16 19:10:008.9[facility] LdngasuWNECASKSBJAM8590-91-77 19:10:0010[facility] RngfqhcYIECTNACJZAK1358-90-40 19:10:000.9[facility] GsufzitDLSPJMTIDQ0242-20-89 19:10:000.6[facility] XfgpszdSYNDEOTBAA3980-59-37 19:10:000.1[facility] XOZXNPVVZA7246-60-18 19:10:000.0[facility] NruwadwVJIMNHICDG2789-68-41 19:10:001.6 [facility] YpogvtsIZBMCIPQGE3043-52-47 19:10:007.2[facility] HermannHEMATOLOGY 2013-05-16 19:10:006.2[facility] RslnpwqVGPRKFPOTD3476-55-54 19:10:000.2[facility] UdnpzsqBIKFIKLOQU4458-99-36 19:10:001.1[facility] ImboxdzPTGMPSWCZX1962-92-07 19:10:0014.2[facility] MmyihyiJBKZSRGPMZ5860-21-76 19:10:0076.8[facility] EXEPCTTHTA8588-91-74 19:10:0098.1[facility] HmiuxgnIUAHWDOHWT0635-47-23 19:10:00 13.9[facility] KwirvxtBFZZWMCMNY1457-53-30 19:10:00 Test Item Value Reference Range Interpretation Comments MCH (test code = MCH) 33.3 pg 27.0-31.0 [facility] DxzesooQDNYGDIOYO3167-24-09 19:10:0040.9[facility] HermannHEMATOLOGY 2013-05-16 19:10:0034.0[facility] JnwwxxcRWPGWJTKBX7796-07-46 19:10:18162Jyodnuaf RhzdvoyGTUGVSFNNP1544-13-18 19:10:0013.7[facility] DptsfryBXASBUOIPO8506-93-23 19:10:008.9[facility] WsgkdhaPBJLWIVKLN9587-89-12 19:10:004.17[facility] DYHYLDODEI8167-30-72 19:10:008.0[facility] WqnwkdgUMSYYHLFUG7169-99-67 08:55:40 Slight *ABN*(09/12/2012 03:55:40)[facility] TfhdafaKITNLHPTWM9996-80-56 08:55:40 Slight *ABN*(09/12/2012 03:55:40)[facility] KioshqqUNPORABBAM1508-07-78 08:55:40 Slight *ABN*(09/12/2012 03:55:40)[facility] LgdvrktPXMOGWWCFY0175-09-90 08:55:40 0.0[facility] TmxhupsLDDQMNVBEO7298-95-53 08:55:401+ *ABN*(09/12/2012 03:55:40) [facility] QffqpwcTTGXGONEHN3677-57-24 08:55:400.5[facility] HermannHEMATOLOGY 2012-09-12 08:55:400.0[facility] RubxlpjGIPZWUNVJQ5302-56-10 08:55:400.8[facility] TvirxkzCCSJIMNIWZ4620-11-22 08:55:404.6[facility] FyrcarsHBNHTZWSCN5922-58-64 08:55:403.1[facility] KyjubqfTUHHFZLKZG6923-07-72 08:55:4015.4[facility] EZSYGIRNVI6572-65-22 08:55:400.0[facility] WbjvpffISDZIOQRPM7993-31-94 08:55:400.0 [facility] ZldgmhhPBWMSPDIOA8096-13-86 08:55:40Normal (09/12/2012 03:55:40) [facility] HgcuxddHGWPVPFYMP2109-81-36 08:55:4092.3[facility] HermannHEMATOLOGY 2012-09-12 08:55:400.0[facility] GhwngehYDXEMOUVGX8451-93-91 08:55:409.3[facility] OwhaubeFTDEZTLUYA5452-40-50 08:55:4040.0[facility] OmzhkfpFUORRBESWK6686-16-19 08:55:4097.4[facility] YvbgadvMWPRJGPQFA2689-79-40 08:55:40 Test Item Value Reference Range Interpretation Comments MCH (test code = MCH) 32.4 pg 27.0-31.0 H [facility] JdsxudpNLZEENRLSS2149-48-35 08:55:4013.3[facility] HermannHEMATOLOGY 2012-09-12 08:55:4016.7[facility] GandoeiOGMHSWWINM1695-76-70 08:55:404.11[facility] NfmpswuLMLFTCQHDA8800-20-62 08:55:4033.3[facility] ArqfiwnYKGUTXXSDX6418-20-56 08:55:4015.0[facility] BkrtrziMKWQVAJMUR4585-92-28 08:55:04880Unnbqdit [facility] TBFWAIMLR3271-98-35 17:30:0078[facility] JiqzmdrLNLBUOETX5202-71-72 17:30:68216 [facility] YfrtrgtKJBHAXMUC2508-91-27 17:30:0027[facility] HermannCHEMISTRY 2012-09-11 17:30:001.0[facility] PbttrovKXBIOWCJV8684-82-03 17:30:009.0[facility] LbsvksmKFIZODJCG0941-69-92 17:30:81650Uhvignkz TihwaxbCEISYWGCH9912-54-82 17:30:004.4[facility] ZgtycjyWCORXFHDP3564-32-98 17:30:0015[facility] COIVYIATE6236-50-39 17:30:49622Vhqkwhmz VihjdpeRQOENLWHR8360-65-67 17:30:0014.4 [facility] OvwmgrtMJORTMCRPK6500-43-88 17:30:0014.7[facility] HermannHEMATOLOGY 2012-09-11 17:30:0096.9[facility] TmctztgEXPSGLAWFX3736-63-32 17:30:0043.9[facility] VqffiuzVFYLWWJSQW4778-68-46 17:30:0033.4[facility] PowhdbeUBJKJBJPAU5355-75-96 17:30:00 Test Item Value Reference Range Interpretation Comments MCH (test code = MCH) 32.4 pg 27.0-31.0 H [facility] LgpbnecNXFKRVTKDZ3057-17-75 17:30:0015.1[facility] HermannHEMATOLOGY 2012-09-11 17:30:68644Xhtshagg GkavixtHTFXBOTRRL8685-73-65 17:30:009.5[facility] WqpzgexGJBZYBEFVW0445-33-15 17:30:0018.4[facility] YwictjqLMZAATBZGQ1461-81-14 17:30:004.53[facility] AlmyxuzYVJQIXHMLR2929-46-36 17:30:000.0[facility] WFHQTFCGSY0673-41-32 17:30:000.0[facility] FwcctccLYWTBOUKPA2686-66-53 17:30:000.6 [facility] FrfzmezDOHNKRCZGW8592-96-43 17:30:003.2[facility] HermannHEMATOLOGY 2012-09-11 17:30:0017.1[facility] TxvedgxWMYRUHWCAL2470-00-88 17:30:000.7[facility] EcoksbhHOJIFNZETV7067-22-75 17:30:000.0[facility] MeyvuvvBIQKFHXKPD1161-67-16 17:30:000.0[facility] MxjhljbCQUXARHAOX1254-71-56 17:30:0092.9[facility] OEOHOSVZSH8088-11-58 17:30:00Normal (09/11/2012 12:30:00)[facility] MMRCBFOWER5697-03-22 17:30:003.9[facility] KsegtpuOLLQGIQQCZ1197-82-08 17:30:00 Normal (09/11/2012 12:30:00)[facility]
[2020-04-02 20:39] LABS: Protime INR 1.02
[2020-04-02] MEDS ORDERED: IPRATROPIUM BROM 0.5MG/2.5ML ONE (20:39)
[2020-04-02] MEDS ORDERED: NA CHLORIDE 0.9% 1,000 ML ONE (20:39)
[2020-04-02] MEDS ORDERED: METHYLPREDNISOLONE 125 MG INJ ONE (20:39)
[2020-04-02] MEDS ORDERED: LEVALBUTEROL 1.25 MG/3 ML NEB ONE ×2 (20:39→21:56)
--- NOTE | 2020-04-02 20:40 | RAD REPORT ---
EXAM DESCRIPTION: RAD - Chest Single View - 04/02/2020 8:27 pm CLINICAL HISTORY: COUGH Chest pain. COMPARISON: Chest Single View dated 11/08/2019; Chest Single View dated 04/25/2019; Chest Single View dated 03/15/2019; Chest Pa And Lat (2 Views) dated 07/19/2018 FINDINGS: Portable technique limits examination quality. The lungs are emphysematous but grossly clear. The heart is normal in size. No displaced fractures.Mi ld S-shaped scoliosis of the thoracic spine. IMPRESSION: Mild diffuse COPD.
[2020-04-02 20:41] LABS: Absolute Lymphocytes (CBC) 0.8 K/uL (0.7-4.9); Basophils % 0.8 % (0-1.3); Hematocrit 33.2 % (39.6-49.0); Lymphocytes % 17.6 % (15.3-44.8); MPV 8.7 fL (7.6-11.3); RBC Red Blood Cell Count 3.32 M/uL (4.33-5.43)
[2020-04-02 20:46] LABS: ALT/SGPT 21 U/L (12-78); AST/SGOT 23 U/L (15-37); Albumin 3.2 g/dL (3.4-5.0); Alkaline Phosphatase 69 U/L (45-117); BUN Blood Urea Nitrogen 19 mg/dL (7-18); Bicarbonate 31 mmol/L (21-32); Bilirubin Direct < 0.1 mg/dL (0-0.2); Bilirubin Total 0.3 mg/dL (0.2-1.0); Glucose Level 103 mg/dL (74-106); Lipase 133 U/L (73-393); Magnesium 2.2 mg/dL (1.8-2.4); NT PRO-BNP 157 pg/mL (<125); Potassium 4.2 mmol/L (3.5-5.1); Protein, Total 7.2 g/dL (6.4-8.2); Sodium Level 139 mmol/L (136-145); Troponin (Emerg Dept Use Only) < 0.02 ng/mL (0.0-0.045)
[2020-04-02] MEDS ORDERED: Levofloxacin500mg IV 500 MG/100 ML BAG IV ONE (21:11)
[2020-04-02] MEDS ORDERED: prednisoLONE 15 MG/5 ML OSYR ONE (21:12)
--- NOTE | 2020-04-02 21:29 | EDPHYS ---
Physician Documentation [facility] Name: Bossman Gooden Age: 75 yrs Sex: Male : 1945 Arrival Date: 04/02/2020 Time: 15:36 Bed 20 Private MD: ED Physician Paco Smith HPI: 04/02 20:08 This 75 yrs old Male presents to ER via Wheelchair with complaints of tsering Breathing Difficulty, Feeding tube problem. 20:08 The patient has shortness of breath at rest, with light activity. Onset: The tsering symptoms/episode began/occurred 2 day(s) ago. Duration: The symptoms are continuous, and are steadily getting worse. The patient's shortness of breath is aggravated by nothing, is alleviated by nebulizer treatment, application of supplemental oxygen. Associated signs and symptoms: The patient has no apparent associated signs or symptoms. Severity of symptoms: At their worst the symptoms were moderate in the emergency department the symptoms are worse mildly. The patient has experienced similar episodes in the past, several times. Historical: - Allergies: 16:09 Keflex; ll1 16:09 Sulfa (Sulfonamide Antibiotics); ll1 - PMHx: 16:09 Asthma; Emphysema; Pneumonia; EDEMA; meningitis; Hypertension; ESSENTIAL TREMORS; High ll1 Cholesterol; COPD; CAD; - PSHx: 16:09 Stents on Legs; Tonsillectomy; feeding tube; ll1 - Immunization history:: Flu vaccine is not up to date. - Social history:: Smoking status: Patient reports the use of cigarette tobacco products, smokes one-half pack cigarettes per day. - Family history:: not pertinent. ROS: 20:08 Constitutional: Negative for fever, chills, and weight loss, Eyes: Negative for injury, tsering pain, redness, and discharge, ENT: Negative for injury, pain, and discharge, Neck: Negative for injury, pain, and swelling, Cardiovascular: Negative for chest pain, palpitations, and edema, Back: Negative for injury and pain, : Negative for injury, bleeding, discharge, and swelling, MS/Extremity: Negative for injury and deformity, Skin: Negative for injury, rash, and discoloration, Neuro: Negative for headache, weakness, numbness, tingling, and seizure, Psych: Negative for depression, anxiety, suicide ideation, homicidal ideation, and hallucinations, Allergy/Immunology: Negative for hives, rash, and allergies, Endocrine: Negative for neck swelling, polydipsia, polyuria, polyphagia, and marked weight changes, Hematologic/Lymphatic: Negative for swollen nodes, abnormal bleeding, and unusual bruising. 20:08 Respiratory: Positive for cough, shortness of breath, wheezing, expiratory. 20:08 Abdomen/GI: Positive for peg tube blocked, rubber stopper. Exam: 20:08 Constitutional: This is a well developed, well nourished patient who is awake, alert, tsering and in no acute distress. Head/Face: Normocephalic, atraumatic. Eyes: Pupils equal round and reactive to light, extra-ocular motions intact. Lids and lashes normal. Conjunctiva and sclera are non-icteric and not injected. Cornea within normal limits. Periorbital areas with no swelling, redness, or edema. ENT: Nares patent. No nasal discharge, no septal abnormalities noted. Tympanic membranes are normal and external auditory canals are clear. Oropharynx with no redness, swelling, or masses, exudates, or evidence of obstruction, uvula midline. Mucous membranes moist. Neck: Trachea midline, no thyromegaly or masses palpated, and no cervical lymphadenopathy. Supple, full range of motion without nuchal rigidity, or vertebral point tenderness. No Meningismus. Chest/axilla: Normal chest wall appearance and motion. Nontender with no deformity. No lesions are appreciated. Cardiovascular: Regular rate and rhythm with a normal S1 and S2. No gallops, murmurs, or rubs. Normal PMI, no JVD. No pulse deficits. Abdomen/GI: Soft, non-tender, with normal bowel sounds. No distension or tympany. No guarding or rebound. No evidence of tenderness throughout. Back: No spinal tenderness. No costovertebral tenderness. Full range of motion. Male : Normal genitalia with no discharge or lesions. Skin: Warm, dry with normal turgor. Normal color with no rashes, no lesions, and no evidence of cellulitis. MS/ Extremity: Pulses equal, no cyanosis. Neurovascular intact. Full, normal range of motion. Neuro: Awake and alert, GCS 15, oriented to person, place, time, and situation. Cranial nerves II-XII grossly intact. Motor strength 5/5 in all extremities. Sensory grossly intact. Cerebellar exam normal. Normal gait. Psych: Awake, alert, with orientation to person, place and time. Behavior, mood, and affect are within normal limits. 20:08 Respiratory: mild respiratory distress is noted, Respirations: labored breathing, that is mild, accessory muscle usage, that is mild. 20:14 ECG was reviewed by the Attending Physician. [facility] Vital Signs: 16:05 BP 110 / 63; Pulse 91; Resp 18; Temp 97.7; Pulse Ox 98% ; Weight 53.52 kg; Height 6 ft. ll1 0 in. (182.88 cm); Pain 0/10; 20:00 BP 124 / 68; Pulse 78; Resp 22; Pulse Ox 97% on R/A; wh 21:00 BP 119 / 56; Pulse 75; Resp 20; Pulse Ox 98% ; wh 22:00 BP 127 / 60; Pulse 84; Resp 20; Pulse Ox 98% on R/A; wh 16:05 Body Mass Index 16.00 (53.52 kg, 182.88 cm) ll1 MDM: 19:16 Patient medically screened. tsering 20:12 Differential diagnosis: CHF exacerbation, Chronic Obstructive Pulmonary Disease tsering pneumonia, Pneumothorax pulmonary edema, reactive airway disease. Antibiotic administration: Levaquin given. The patient's Wells Deep Vein Thrombosis Score was calculated as follows: Total Score: 0-2 Pts- Low Risk. The patient's pulmonary embolism risk score was calculated as follows: Total Score: 0-2 points. This patient was found to be at low risk for a pulmonary embolism by using the Well's assessment criteria. Immunization status: Pneumococcal vaccine: Influenza vaccine: Data reviewed: vital signs, nurses notes, lab test result(s), EKG, radiologic studies, plain films. Data interpreted: nurse monitoring: rate is 91 beats/min, rhythm is regular, Pulse oximetry: is not applicable for this patient encounter. Test interpretation: by ED physician or midlevel provider: ECG, plain radiologic studies. Counseling: I had a detailed discussion with the patient and/or guardian regarding: the historical points, exam findings, and any diagnostic results supporting the discharge/admit diagnosis, lab results, radiology results. 04/02 19:28 Order name: Basic Metabolic Panel [facility] 04/02 19: Order name: CBC with Diff [facility] 04/02 18:28 Order name: LFT's [facility] 01/21 19:28 Order name: Magnesium [facility] 04/02 19:28 Order name: NT PRO-BNP [facility] 04/02 19:28 Order name: PT-INR [facility] 04/02 19:28 Order name: Troponin (emerg Dept Use Only) [facility] 04/02 19:28 Order name: Lipase [facility] 04/02 19:28 Order name: Blood Culture Adult (2) [facility] 04/02 19:28 Order name: Flu [facility] 04/02 19:28 Order name: COVID-19 [facility] 04/02 20:21 Order name: Influenza Screen (A EDMI 04/02 20:21 Order name: [facility] 04/02 20:47 Order name: Basic Metabolic Panel; Complete Time: 20:55 EDMS 04/02 19:28 Order name: XRAY Chest (1 view) [facility] 04/02 20:41 Order name: RAD; Complete Time: 20:55 EDMS 04/02 20:47 Order name: Liver (Hepatic) Function; Complete Time: 20:55 EDMI 04/02 20:47 Order name: Troponin (Emerg Dept Use Only); Complete Time: 20:55 EDMI 04/02 20:47 Order name: NT PRO-BNP; Complete Time: 20:55 EDMS 04/02 20:47 Order name: Magnesium; Complete Time: 20:55 EDMI 04/02 20:47 Order name: Lipase; Complete Time: 20:55 EDMI 04/02 20:47 Order name: Protime (+INR); Complete Time: 20:55 EDMS 04/02 20:50 Order name: CBC with Automated Diff; Complete Time: 20:55 EDMI 04/02 19:28 Order name: EKG; Complete Time: 19:30 [facility] 04/02 19:28 Order name: Cardiac monitoring; Complete Time: 20:15 [facility] 04/02 19:28 Order name: EKG - Nurse/Tech; Complete Time: 20:15 [facility] 04/02 19:28 Order name: IV Saline Lock; Complete Time: 20:15 [facility] 04/02 19:28 Order name: Labs collected and sent; Complete Time: 20:15 [facility] 04/02 19:28 Order name: O2 Per Protocol; Complete Time: 20:16 [facility] 04/02 19:28 Order name: O2 Sat Monitoring; Complete Time: 20:16 [facility] EC:14 Rate is 78 beats/min. Rhythm is regular. QRS Edwards is Normal. SD interval is normal. QRS tsering interval is normal. QT interval is normal. No Q waves. T waves are Normal. No ST changes noted. Clinical impression: Normal ECG and No evidence of ischemia. Interpreted by me. Reviewed by me. Administered Medications: : Drug: SOLU-Medrol 2 mg/kg Route: IVP; Site: right forearm; 22:22 Follow up: Response: No adverse reaction :43 Drug: Xopenex (3) 1.25 mg Route: Inhalation; :43 Drug: AtroVENT Aerosol 0.5 mg Route: Inhalation; :44 Drug: NS 0.9% 1000 ml Route: IV; Rate: 125 ml/hr; Site: right forearm; 22:22 Follow up: Response: No adverse reaction; IV Status: Order to discontinue infusion : Drug: levofloxacin 500 mg Volume: 100 ml; Route: IVPB; Infused Over: 60 mins; Site: right forearm; 22:22 Follow up: Response: No adverse reaction; IV Status: Completed infusion :35 Drug: PrElone Liquid 1 mg/kg Route: PO; : Follow up: Response: No adverse reaction :43 Drug: Xopenex 2.5 mg Route: Inhalation; Disposition: 04/02/20 21:28 Discharged to Home. Impression: Dyspnea, Chronic obstructive pulmonary disease with (acute) exacerbation, Gastrostomy status. - Condition is Stable. - Discharge Instructions: Asthma, Adult, Chronic Obstructive Pulmonary Disease, How to Use an Inhaler, Shortness of Breath, Chronic Obstructive Pulmonary Disease Exacerbation, Chronic Obstructive Pulmonary Disease, [id number], Gastrostomy Tube Home Guide, Adult. - Prescriptions for Levaquin 250 mg Oral Tablet - take 1 tablet by ORAL route once daily for 6 days; 6 tablet. Xopenex 1.25 mg/3 mL Inhalation Solution for Nebulization - inhale 1 unit by NEBULIZATION route every 8 hours As needed; 1 box. Albuterol Sulfate 90 mcg/actuation - inhale 1-2 puff by INHALATION route every 4-6 hours; 1 Inhaler. prednisolone 15 mg/5 mL Oral Solution - take 20 milliliter by ORAL route once daily for 7 days with food; 150 milliliter. - Medication Reconciliation Form, Thank You Letter, Antibiotic Education, Prescription Opioid Use form. - Follow up: Private Physician; When: 2 - 3 days; Reason: Recheck today's complaints, Continuance of care, Re-evaluation by your physician. Follow up: Brandon Ventura; When: 2 - 3 days; Reason: Recheck today's complaints, Continuance of care, Re-evaluation by your physician. - Problem is new. - Symptoms have improved. Signatures: Dispatcher [employer] EDMI Paco Smith MD MD cha Habalo, Winsy, RN RN Berkley Ngo RN RN ll1 Corrections: (The following items were deleted from the chart) 22:27 21:28 04/02/2020 21:28 Discharged to Home. Impression: Dyspnea; Chronic obstructive wh pulmonary disease with (acute) exacerbation; Gastrostomy status. Condition is Stable. Discharge Instructions: Asthma, Adult, Chronic Obstructive Pulmonary Disease, How to Use an Inhaler, Shortness of Breath, Chronic Obstructive Pulmonary Disease Exacerbation, Chronic Obstructive Pulmonary Disease, [id number], Gastrostomy Tube Home Guide, Adult. Prescriptions for Levaquin 250 mg Oral Tablet - take 1 tablet by ORAL route once daily for 6 days; 6 tablet, Xopenex 1.25 mg/3 mL Inhalation Solution for Nebulization - inhale 1 unit by NEBULIZATION route every 8 hours As needed; 1 box, Albuterol Sulfate 90 mcg/actuation - inhale 1-2 puff by INHALATION route every 4-6 hours; 1 Inhaler, prednisolone 15 mg/5 mL Oral Solution - take 20 milliliter by ORAL route once daily for 7 days with food; 150 milliliter. and Forms are Medication Reconciliation Form, Thank You Letter, Antibiotic Education, Prescription Opioid Use. Follow up: Private Physician; When: 2 - 3 days; Reason: Recheck today's complaints, Continuance of care, Re-evaluation by your physician. Follow up: Brandon Ventura; When: 2 - 3 days; Reason: Recheck today's complaints, Continuance of care, Re-evaluation by your physician. Problem is new. Symptoms have improved. tsering
--- NOTE | 2020-04-02 21:29 | ER ---
Nurse's Notes [facility] Name: Bossman Gooden Age: 75 yrs Sex: Male : 1945 Arrival Date: 04/02/2020 Time: 15:36 Bed 20 Private MD: Diagnosis: Dyspnea;Chronic obstructive pulmonary disease with (acute) exacerbation;Gastrostomy status Presentation: 04/02 16:05 Chief complaint: Patient states: Feeding tube clogged today. States the tip broke off ll1 into tubing. 2. Noticed SOB worse than usual today. Has been doing inhalers since 1300. Coronavirus screen: Client denies travel out of the [place] in the last 14 days. At this time, the client does not indicate any symptoms associated with coronavirus-19. Ebola Screen: Patient denies travel to an Ebola-affected area in the 21 days before illness onset. Initial Sepsis Screen: Does the patient meet any 2 criteria? HR > 90 bpm. No. Patient's initial sepsis screen is negative. Does the patient have a suspected source of infection? Yes: Other: SOB/COPD. Risk Assessment: Do you want to hurt yourself or someone else? Patient reports no desire to harm self or others. Onset of symptoms was April 02, 2020. 16:05 Method Of Arrival: Wheelchair ll1 16:05 Acuity: GUANACO 3 ll1 Triage Assessment: 19:30 Respiratory: Onset: The symptoms/episode began/occurred suddenly, the patient has mild wh shortness of breath. Historical: - Allergies: 16:09 Keflex; ll1 16:09 Sulfa (Sulfonamide Antibiotics); ll1 - PMHx: 16:09 Asthma; Emphysema; Pneumonia; EDEMA; meningitis; Hypertension; ESSENTIAL TREMORS; High ll1 Cholesterol; COPD; CAD; - PSHx: 16:09 Stents on Legs; Tonsillectomy; feeding tube; ll1 - Immunization history:: Flu vaccine is not up to date. - Social history:: Smoking status: Patient reports the use of cigarette tobacco products, smokes one-half pack cigarettes per day. - Family history:: not pertinent. Screenin:30 Abuse screen: Denies threats or abuse. Denies injuries from another. Nutritional wh screening: No deficits noted. Tuberculosis screening: No symptoms or risk factors identified. Fall Risk None identified. Assessment: 19:30 General: Appears in no apparent distress. Behavior is calm, cooperative, appropriate for age. Pain: Denies pain. Neuro: Level of Consciousness is awake, alert, obeys commands, Oriented to person, place, time, situation, Appropriate for age. Cardiovascular: Heart tones S1 S2 Rhythm is regular. Respiratory: Airway is patent Respiratory effort is labored, Respiratory pattern is tachypnea Breath sounds with wheezes. Respiratory: Reports shortness of breath cough that is. GI: Abdomen is flat, PEG tube. : No signs and/or symptoms were reported regarding the genitourinary system. EENT: No signs and/or symptoms were reported regarding the EENT system. Derm: Skin is intact, Skin is pink, warm \T\ dry. Musculoskeletal: Circulation, motion, and sensation intact. 20:45 Reassessment: Patient appears in no apparent distress at this time. No changes from previously documented assessment. Patient and/or family updated on plan of care and expected duration. Pain level reassessed. Patient is alert, oriented x 3, equal unlabored respirations, skin warm/dry/pink. 22:00 Reassessment: Patient appears in no apparent distress at this time. Patient and/or family updated on plan of care and expected duration. Pain level reassessed. Patient is alert, oriented x 3, equal unlabored respirations, skin warm/dry/pink. Vital Signs: 16:05 BP 110 / 63; Pulse 91; Resp 18; Temp 97.7; Pulse Ox 98% ; Weight 53.52 kg; Height 6 ft. 1 0 in. (182.88 cm); Pain 0/10; 20:00 BP 124 / 68; Pulse 78; Resp 22; Pulse Ox 97% on R/A; wh 21:00 BP 119 / 56; Pulse 75; Resp 20; Pulse Ox 98% ; wh 22:00 BP 127 / 60; Pulse 84; Resp 20; Pulse Ox 98% on R/A; 16:05 Body Mass Index 16.00 (53.52 kg, 182.88 cm) 1 ED Course: 15:36 Patient arrived in ED. mr 16:07 Triage completed. ll1 16:07 Arm band placed on. 1 19:16 Paco Smith MD is Attending Physician. [facility] 19:30 Patient has correct armband on for positive identification. Bed in low position. Call light in reach. Side rails up X 1. residential monitor on. Pulse ox on. NIBP on. 19:30 Inserted saline lock: 20 gauge in right forearm, using aseptic technique. Blood collected. 19:31 Gisell Huerta, RN is Primary Nurse. 21:28 Brandon Ventura MD is Referral Physician. [facility] 22:23 IV discontinued, intact, bleeding controlled, No redness/swelling at site. 22:25 No provider procedures requiring assistance completed. Administered Medications: 20:43 Drug: SOLU-Medrol 2 mg/kg Route: IVP; Site: right forearm; 22:22 Follow up: Response: No adverse reaction :43 Drug: Xopenex (3) 1.25 mg Route: Inhalation; :43 Drug: AtroVENT Aerosol 0.5 mg Route: Inhalation; :44 Drug: NS 0.9% 1000 ml Route: IV; Rate: 125 ml/hr; Site: right forearm; 22:22 Follow up: Response: No adverse reaction; IV Status: Order to discontinue infusion : Drug: levofloxacin 500 mg Volume: 100 ml; Route: IVPB; Infused Over: 60 mins; Site: right forearm; 22:22 Follow up: Response: No adverse reaction; IV Status: Completed infusion :35 Drug: PrElone Liquid 1 mg/kg Route: PO; 22: Follow up: Response: No adverse reaction :43 Drug: Xopenex 2.5 mg Route: Inhalation; Outcome: :28 Discharge ordered by . [facility] 22:23 Discharged to home via wheelchair, with family. 22:23 Condition: stable 22:23 Discharge instructions given to patient, family, Instructed on discharge instructions, follow up and referral plans. medication usage, POC Demonstrated understanding of instructions, follow-up care, medications, POC Prescriptions given X 4. 22:27 Patient left the ED. Signatures: Paco Smith MD MD cha Rivera, Mary mr Gisell Huerta, YULISA MÁRQUEZ Berkley gNo RN RN ll1
[2020-04-02 22:32] LABS: SARS-COV-2 RT PCR NEGATIVE (NEGATIVE)
[2020-04-02 22:46] VITALS: TEMP 97.7
[2020-04-02 22:49] VITALS: O2SAT 98
[2020-04-02 22:50] VITALS: BP 127/60
== END 2020-04-02 22:27 | disposition home or self-care (01) ==
LOC: ER 15:24
DX: J44.1 Chronic obstructive pulmonary disease with (acute) exacerbation (principal); K94.23 Gastrostomy malfunction; Z20.822 Contact with and (suspected) exposure to COVID-19; F17.210 Nicotine dependence, cigarettes, uncomplicated; I10 Essential (primary) hypertension; Z88.1 Allergy status to other antibiotic agents; Z88.2 Allergy status to sulfonamides
CPT/HCPCS: 96365; 96361; 87040 ×2; 85025; 80048; 36415; 83735; 85610; 80076; 84484; 83690; 83880; 0240U; 71045; 96375; 99285; J7030; J2930; 93005; J7510

== ENCOUNTER 2020-04-22 06:24 | Day surgery (SDC) | payer OTHER ==
[2020-04-22] MEDS ORDERED: Ringers Lactate 1,000 ML IV ONE (06:55)
[2020-04-22] MEDS ORDERED: propofoL 200 MG/20 ML VIAL IV ONE ×2 (07:53)
[2020-04-22] MEDS ORDERED: LIDOCAINE 1% MPF 5 ML VIAL ONE (07:53)
[2020-04-22] MEDS ORDERED: CEFAZOLIN/SWI 1gm 0 GM/0 ML SYR ONE (08:01)
[2020-04-22] MEDS ORDERED: Levofloxacin500mg IV 500 MG/100 ML BAG IV ONE (08:02)
--- NOTE | 2020-04-22 08:25 | ENDO RPT ---
[address], [address] EGD WITH PEG PROCEDURE REPORT EXAM DATE: 04/22/2020 PATIENT NAME: Bossman Gooden MR #: [id number] BIRTHDATE: 1945 ATTENDING: Panchito Huang Dr STATUS: outpatient SPOOL SANDER: Edelmira Clement RN, Yarelis Holley RN, Jack Blake CST, and Miranda Peck RN INDICATIONS: The patient is a 75 yr old Male here for an EGD with PEG due to dysphagia and malnutrition PROCEDURE PERFORMED: EGD-PEG EGD with biopsy MEDICATIONS: Per Anesthesia. TOPICAL ANESTHETIC: none CONSENT: The patient understands the risks and benefits of the procedure and understands that these risks include, but are not limited to: sedation, allergic reaction, infection, perforation and/or bleeding. Alternative means of evaluation and treatment include, among others: physical exam, x-rays, and/or surgical intervention. The patient elects to proceed with this endoscopic procedure. DESCRIPTION OF PROCEDURE: During intra-op preparation period all mechanical medical equipment was checked for proper function. Hand hygiene and appropriate measures for infection prevention was taken. After the risks, benefits and alternatives of the procedure were thoroughly explained, Informed consent was verified, confirmed and timeout was successfully executed by the treatment team. The patient was anesthetized with topical anesthesia and the EG-[id number] ([id number]) endoscope was introduced through the mouth and advanced to the second portion of the duodenum. The instrument was slowly withdrawn as the mucosa was fully examined. A small hiatal hernia was found. Specks of dark heme were found in the antrum. Duodenitis was found in the bulb of the duodenum. Multiple gastric biopsies were obtained and sent to pathology. The stomach was then inflated with air. The olc peg tube was identified (patient reports major difficulty with placement of PEG by surgery in the past due to interposition of colon and is highly concerned about repeat difficulty with PEG tube replacement and loss of enteral access). and by a combination of transillumination and manual palpation, the site for the gastrostomy tube placement was selected and marked on the anterior abdominal wall. The skin of the anterior abdomen was surgically prepped and draped with sterile towels. Utilizing strict sterile technique, insertion wire was placed through the PEG stoma into the stomach, maintaining visualization with the endoscope. A snare device previously placed through the instrument channel was then opened and placed around the insertion wire. The snare was then pulled up to the endoscope distal tip, and the scope was then withdrawn bringing with it the snare and insertion wire. The insertion wire was then released from the snare, and the PEG PUSH gastrostomy tube placed over the guidewire. Using the push technique, the tube was then pushed into place over the insertion wire at the abdominal wall end. The tube insertion site was then cleansed once again, and the external bolster was placed over the tube to secure it to the abdominal wall. A sterile dressing was then applied, and the procedure terminated. Retroflexed views revealed a small hiatal hernia. The gastroscope was then slowly withdrawn and removed. ADVERSE EVENT: There were no complications. IMPRESSIONS: 1. Status post 20 Fr percutaneous endoscopic gastrostomy 2. Small hiatal hernia 3. Specks of dark heme in the antrum 4. Duodenitis in the bulb of the duodenum, s/p gastric biopsies RECOMMENDATIONS: 1. begin PEG use in 3 hours 2. await biopsy results 3. acid suppression therapy REPEAT EXAM: Panchito Huang Dr eSigned: Panchito Huang Dr 04/22/2020 8:25 AM cc: CPT CODES: ICD9 CODES: PATIENT NAME: Bossman Gooden MR#: [id number]
[2020-04-22] MEDS ORDERED: Phenylephrine HCl 10 MG/ML 1 ML VIAL ONE (08:39)
[2020-04-22 09:28] VITALS: O2SAT 100
[2020-04-22 09:29] VITALS: BP 109/54; TEMP 97.8
--- OUTSIDE RECORDS SUMMARY | 2020-04-22 12:43 | XMS REPORT | Continuity of Care Document ---
:1945 Author Organization [facility] Care Team Providers Name Role Phone [facility] Unavailable Un available Problems Problem Status Onset Classification Date Comments Sour e Date Reported Essential tremor Active Problem 06/18/2018 Data nathaniel rated from [employer] on 12/27/2016. Originally documented as Essential tremor. Mischer (disorder) 017 Data migrated from [employer] on 11/02/2016. Originally documented as Essential tremor. Neuro, Data migrated from [employer] on 05/12/2016. Originally documented as Essential tremor. [facility] HEADACHE Active [facility] 017 [facility] FOOT PAIN OR Active [facility] INJURY 017 Hospital CELLULITIS OF Active Jyoti y RIGHT LOWER LIMB 017 Hos pital WOUND Active [facility] 017 Rehab ACUTE RESPIRATORY Active [facility] FAILURE, ACUTE 016 Hospi [facility]quez RESPIRA SHORTNESS OF Active [facility] BREATH 016 Hospital PCP SENT/WEAKNESS Active [facility] 016 [facility] ACUTE COPD Active [facility] EXACERBATION 016 Hospita l COPD Active [address] 305.1 - TOBACCO Active O PID [facility] USE DIS 015 TOBACCO ABUSE Active Condition 07/23/2014 [facility] dical 015 Group Tobacco dependence Active Problem 06/18/2018 Data m igrated from [employer] on 09/17/14. 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 Neuro, (disorder) [facility] LOSS OF WEIGHT Active Condition 07/23/2014 M edical 015 Group CAROTID BRUIT, Active Condition 07/23/2014 [facility] edical RIGHT 015 Group Carotid bruit Active Problem 06/18/2018 Data migrat ed from [employer] on 09/17/14. Mischer (finding) 015 Data migrated from [employer] on 08/12/14. Neuro,[facility] Rehab,[facility] Weight decreased Active Problem 06/18/2018 Data nathaniel rated from [employer] on 09/17/14. Mischer (finding) 015 Data migrated from [employer] on 08/12/14. Neuro,[facility] Rehab,[facility] PNEUMONIA Active [facility] 015 Hospital COPD EXACERBATION Active [address] RASH AND OTHER Inactive Condition 07/23/2014 [facility] edical NONSPECIFIC SKIN 015 Az up ERUPTION RASH Active [facility] 014 [facility] CELLULITIS FAILED Active [facility] OUTPATIENT THERAPY 014 H ospital ERYSIPELAS Inactive Condition 07/23/2014 Medic al 014 Group Erysipelas Resolved Problem 06/18/2018 Data Mischer (disorder) 014 migrated Neuro, from [facility], on 09/26/14. [facility] SEBORRHEIC Inactive Condition 07/23/2014 Medic al KERATOSIS 014 Group SUPERIOR GLENOID Inactive Condition 07/23/2014 Medical LABRUM LESIONS 014 Group (SLAP) ROTATOR CUFF TEAR Inactive Condition 07/23/2014 [facility] Medical 014 Group HYPOTHYROIDISM Active Condition 07/23/2014 [facility] edical 014 Group HYPOGONADISM Active Condition 07/23/2014 Med ical 014 Group SHOULDER PAIN, Inactive Condition 07/23/2014 [facility] edical LEFT 014 Group PERIPHERAL Active Condition [...] on 08/12/14. [facility], OPID [facility], [facility] Hypogonadism Active Problem 06/18/2018 Data migrate d from [employer] on 09/17/14. Mischer (disorder) 014 Data migrated from [employer] on 08/12/14. Neuro,[facility] Data migrated from [employer] on 08/12/14. [facility] Osteoporosis Active Problem 06/18/2018 Data migrate d from [employer] on 09/17/14. Mischer (disorder) 014 Data migrated from [employer] on 08/12/14. Neuro, Data migrated from [employer] on 08/12/14. [place] [facility] Peripheral Active Problem 06/18/2018 Data migrated from [employer] on 09/17/14. Mischer vascular disease 014 Data migrated from [employer] on 08/12/14. Neuro, (disorder) Data migrated from [employer] on 08/12/14. 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, disease (disorder) [facility], OPID [facility], [facility] Poor short-term Active Problem 06/18/2018 Mis shamar memory (finding) Dede ro Smoker (finding) Active Problem 06/18/2018 Mi sofya Neuro,[facility] Rehab,[facility] COPD Resolved Problem 09/14/2012 [facility] Cellulitis of Active Diagnosis 02/18/2017 W Kristin right lower limb Inf ectious Disease RESPIRATORY ABNORM Active Emelia Tavares [facility] CHR AIRWAY Active PATTIE Tavares [facility] Hospita l CELLULITIS NOS Active [facility] CHRONIC Active PATTIE Tavares [facility] H ospital DISEASE W ACU ACUTE RESPIRATORY Active PATTIE Tavares FAILURE, UNSP W Hosp ital HYPOXI Medications Medication Details Route Status Patient Ordering Order Source Instructions Provider Date rivastigmine See Active 06/26/ Mischer 1.5 mg oral Instructions 2018 Neuro capsule , # 180 unknown unit, Refill(s) 3, TAKE 1 CAPSULE BY MOUTH TWICE DAILY, Pharmacy: [facility] [id number] primidone 50 mg See Active 06/05/ Mischer oral tablet Instructions 2018 Neuro , 4 tabs twice a day, # 720 tab, 3 Refill(s), Pharmacy: [facility] [id number] Megestrol See Active 05/12/ Mischer Acetate 40 Instructions 2018 Neuro MG/ML Oral , # 600 mL, Suspension SHAKE WELL AND TAKE 20 ML BY MOUTH EVERY DAY, Pharmacy: [facility] [id number] rivastigmine 1.5 mg = 1 No Longer 04/24/ Mische r 1.5 mg oral cap, PO, Active 2018 Neuro capsule BID, # 60 cap, 3 Refill(s), Pharmacy: [facility] [id number] diazepam 2 mg 2 mg = 1 [...] BID, # 60 tab, 0 Refill(s) Nystatin 074636 500,000 unit Active [facility] UNT/ML Oral = [...] Active 2017 Hospital PO, Drug form: TAB, [id number], Dosing Weight 71.682, kg, Start date: 06/25/16 [...] Longer An[facility] as: MaxEPA, Active 2017 Hospital [place] 3 fish oil ) Non-Formular y Drug [...] / as: Duoneb) Active 2017 Hospital Ipratropium Dahinda 0.167 MG/ML Inhalant Solution Nystatin 368956 500,000 No Longer Jyoti y UNT/ML Oral [...] / NEB, Dosing 2017 Hospital Ipratropium Weight Dahinda 0.167 71.682, kg, MG/ML Inhalant PRN, PRN [...] No Longer Jyoti y Start date: Active [facility] 06/21/16 22:51:00 CDT, Duration: 30 day, Stop date: 07/21/16 22:50:00 CDT Ondansetron Notes: (Same No Longer Ellis dailey as: Zofran) Active 2017 Hospital MEDICATION WASTE Product Size: 4 mg Product Wasted: ___ mg Acetaminophen 1 tab, No Longer An[facility] 325 MG / Route: PO, Active [address] [place] [address] Hydrocodone Drug Form: Bitartrate 5 MG TAB, [...] Vancomycin 1,000 mg, Inactive An[facility] Route: IVPB, [address] [place] [address] Drug form: INJ, ONCE, Dosing Weight 69.091, kg, Priority: STAT, Start date: 06/21/16 20:24:00 CDT, Stop date: 06/21/16 20:24:00 CDT, TIME CRITICAL MEDICATION Ciprofloxacin 400 mg, Inactive Anusha Route: IVPB, [facility] ONCE, Dosing Weight 69.091, kg, Priority: STAT, Start date: 06/21/16 20:24:00 CDT, Stop date: 06/21/16 20:24:00 CDT Albuterol 0.833 Notes: (Same Inactive An[facility] MG/ML / as: Duoneb) [address] [place] [address] Ipratropium Dahinda 0.167 MG/ML Inhalant Solution [DuoNeb] Acetaminophen Notes: Do Inactive Anusha not exceed 4 2017 Hospital gm/day. (Same as: Tylenol) Sodium Chloride 25 mL, No Longer Jyoti y 0.9% IV Route: IV, Active [facility] Start date: 06/21/16 18:40:00 CDT, Duration: 30 day, Stop date: 07/21/16 18:39:00 CDT, PRN Line Flush Hydralazine Notes: (Same Inactive Jyoti y as: [facility] Apresoline) Push over 5 minutes Morphine Notes: (Same Inactive Anusha as:MORPhine 2017 [facility] Sulfate) Morphine Notes: (Same Inactive Anusha as:MORPhine 2017 [facility] Sulfate) Diphenhydramine Notes: (Same Inactive Anusha [...] Notes: (Same Inactive Jyoti bourgeois as: 2017 [facility] Vibramycin) No milk/antacid s/iron. Ciprofloxacin Notes: May Inactive Jyoti y interfere 2017 Hospital w/enteral feedings - Take 1 hr before or 2 hrs after antacids, dairy pdt & minerals. On empty stomach. minocycline 100 100 mg = 1 Active Ka ty mg oral capsule cap, PO, 2017 Hospita l Q12H, X 30 day, # 60 cap, 0 Refill(s), Pharmacy: [facility] [id number] ciprofloxacin 500 mg = 1 Active [facility] 500 mg oral tab, PO, 2017 Hospital tablet Q12H, X 30 day, # 60 tab, 0 Refill(s), Pharmacy: [facility] [id number] Nicotine Notes: (Same Inactive Anusha as: 2017 [...] form: INJ, ABXQ8H, Start date: 05/17/16 21:30:00 GENDER STUDIES PROFESSOR, Duration: 30 day, Stop date: 06/16/16 13:30:00 [...] 05/17/ H [facility] As: Tessalon Active 2016 [facility] Perles) "Do Not Crush" Loratadine Notes: 1 hr No Longer [facility] before meals Active 2016 Hospital (Same as: Claritin) Non-formular y item Hydralazine Notes: (Same No Longer Ka ty as: Active 2016 Hospital Apresoline) Push over 5 minutes Acetaminophen Notes: (Same No Longer [facility] 325 MG / as: [place] Active 2016 [facility] Hydrocodone 325/5) Do Bitartrate 5 MG not exceed Oral Tablet 4gm/day of [[place] 5/325] acetaminophe n. Acetaminophen Notes: Do No Longer Jyoti y 325 MG / not exceed Active 2016 [facility] Hydrocodone 4gm/day of Bitartrate 10 acetaminophe MG Oral Tablet n. (Same [[place] 10/325] as: [place] 325/10) Lorazepam Notes: (Same No Longer [facility] as: Ativan) Active 2016 Hospital Morphine 1 mg, 0.5 No Longer [facility] mL, Route: Active 2016 Hospital IVP, Drug form: SOLN, Q4H, Dosing Weight 74.545, kg, PRN Pain Score 7-10, if unable to take po, Start date: 05/17/16 16:41:00 GENDER STUDIES PROFESSOR, Duration: 30 day, Stop date: 06/16/16 16:40:00 CDT Albuterol 0.833 Notes: (Same No Longer 05/17/ H [facility] MG/ML / as: Duoneb) Active [address] [place] [address] Ipratropium Dahinda 0.167 MG/ML Inhalant Solution Vancomycin 1,118.175 Inactive An[facility] mg, Route: [address] [place] [address] IVPB, ABXQ8H, Dosing Weight 74.545, kg, TIME CRITICAL MEDICATION, Priority: STAT, Start date: 05/17/16 16:39:00 GENDER STUDIES PROFESSOR, Duration: 30 day, Stop date: 06/16/16 8:39:00 CDT Clindamycin 600 mg, Inactive [facility] Route: IVPB, [address] [place] [address] ABXQ8, Dosing Weight 74.545, kg, Priority: STAT, Start date: 05/17/16 16:39:00 GENDER STUDIES PROFESSOR, Duration: 30 day, Stop date: 06/16/16 8:39:00 CDT Saline Flush Notes: (Same No Longer K aty 0.9% as: BD Active [address] [place] [address] Posiflush) Sodium Chloride 1,000 mL, No Longer K aty 0.154 MEQ/ML Rate: [address] [place] [address] Injectable ml/hr, Solution Infuse over: 10 hr, Route: IV, Dosing Weight 74.545 kg, Total Volume: 1,000, Start date: 05/17/16 16:39:00 GENDER STUDIES PROFESSOR, Duration: 30 day, Stop date: 06/16/16 16:38:00 CDT Acetaminophen 100.4 F, Inactive An[facility] Start date: [address] [place] [address] 05/17/16 16:39:00 GENDER STUDIES PROFESSOR, Duration: 30 day, Stop date: 06/16/16 16:38:00 CDT Clindamycin 600 mg, 50 Inactive An[facility] mL, Route: 2017 [facility] IVPB, Drug form: INJ, ONCE, Dosing Weight 74.545, kg, Priority: STAT, Start date: 05/17/16 12:31:00 GENDER STUDIES PROFESSOR, Stop date: 05/17/16 12:31:00 GENDER STUDIES PROFESSOR Symbicort 2 puff, Active [facility] 160/4.5 INHALATION, 2016 [facility] inhalation RBID, # 1 aerosol with [...] / as: Duoneb) Active 2015 Hospital Ipratropium Dahinda 0.167 MG/ML Inhalant Solution [DuoNeb] Acetylcysteine 200 [...] Black Ipratropium Notes: SEE No Longer [facility] Dahinda 0.2 RT Active 2015 Hospital MG/ML Inhalant DOCUMENTATIO Solution N (Same as:Atrovent) Levalbuterol Notes: SEE No Longer Jyoti y RT Active 2015 Hospital DOCUMENTATIO N (Same as:Xopenex) Non-Formular y Nicotine Notes: (Same No Longer [facility] as: Active 2016 Hospital Habitrol) WASTE: F/P - P Waste Black; E - P Waste Black Ipratropium Notes: SEE Inactive [facility] Dahinda 0.2 RT 2016 Hospital MG/ML Inhalant DOCUMENTATIO [...] Anusha one SODium as:Solu-MEDR Active 2016 Hospital [facility], A-Methapred) Albuterol 0.833 Notes: (Same No Longer 07/15/ M H [facility] MG/ML / as: Duoneb) Active 2016 Hospital Ipratropium Dahinda 0.167 MG/ML Inhalant Solution Levalbuterol Notes: SEE Inactive An[facility] RT 2016 Hospital DOCUMENTATIO N (Same as:Xopenex) Non-Formular y methylPREDNISol Notes: (Same Inactive An[facility]a one as:Solu-MEDR 2016 Hospital OL, A-Methapred) methylPREDNISol Notes: (Same Inactive [facility] one SODium as:Solu-MEDR 2016 [facility], A-Methapred) atorvastatin Notes: (Same No Longer [...] MG/ML / as: Duoneb) 2016 Hospital Ipratropium Dahinda 0.167 MG/ML Inhalant Solution Sodium Chloride 25 [...] Notes: (Same Inactive Anusha as: Ativan) 2016 [facility] Sodium Chloride 1,000 mL, Inactive Ka [...] MG/ML / as: Duoneb) 2016 Hospital Ipratropium Dahinda 0.167 MG/ML Inhalant Solution [DuoNeb] Brovana Notes: [...] Inactive Anusha MG/ML / as: Duoneb) 2016 [facility] Ipratropium Dahinda 0.167 MG/ML Inhalant Solution Solu-Medrol Notes: (Same Inactive Jyoti y as:Solu-MEDR 2016 Hospital OL, A-Methapred) Melatonin Notes: (Same Inactive Anusha as: 2016 [facility] Melatonin) Acetaminophen Notes: Do Inactive An[facility] 325 MG / not exceed 2016 Hospital Hydrocodone 4gm/day of Bitartrate 10 acetaminophe MG Oral Tablet n. (Same [[place] 10/325] as: [place] 325/10) Hydralazine Notes: (Same Inactive Jyoti y as: [address] [place] [address] Apresoline) Push over 5 minutes Acetaminophen Notes: Do Inactive Anusha not exceed [address] [facility] Hospital gm/day. (Same as: Tylenol) Caitlin Cox Notes: (Same Inactive An[facility] As: Tessalon 2016 [facility] Perles) "Do Not Crush" Morphine Notes: (Same Inactive Anusha as:MORPhine 2016 [facility] Sulfate) Loratadine Notes: 1 hr Inactive [...] Hospital Sulfate) Acetaminophen Notes: (Same No Longer Nausha 325 MG / as: [place] Active 2015 Hospital Hydrocodone 325/5) Do Bitartrate [...] Inactive [facility] MG/ML / 2016 Hospital Ipratropium Dahinda 0.167 MG/ML Inhalant Solution atorvastatin 10 10 [...] MG/ML / as: Duoneb) 2016 Hospital Ipratropium Dahinda 0.167 MG/ML Inhalant Solution methylPREDNISol Notes: (Same [...] / as: Duoneb) Active 2016 Hospital Ipratropium Dahinda 0.167 MG/ML Inhalant Solution [DuoNeb] BD Normal Notes: (Same No Longer [facility] Saline Flush as: BD Active 2016 Hospital Posiflush) Sodium Chloride IV, 0 ml/hr, No Longer H [facility]ush[facility] 0.9% IV PRN, PRN Active 2015 [facility] Line Flush, Start date: 05/04/15 17:42:00, Duration: 30, 25 ml Levaquin Notes: (Same No Longer [facility] as:Levaquin) Active 2016 [facility] Notes: (Same No Longer H Anusha As: Tessalon Active 2016 [facility]) "Do Not Crush" Robitussin-AC Notes: (Same No Longer An[facility] oral syrup As: Active 2015 [facility] Robitussin AC) Unknown Home 2 puffs, [...] Anusha 500 mg oral tab, PO, 2013 [facility] tablet Q12H, # 14 tab, 0 Refill(s) methylPREDNISol 40 mg, Inactive An[facility]a one SODium Route: IVP, 2013 [facility] SUCCinate Q6H, Dosing Weight 80.909, kg, Priority: Routine, Start date: 05/16/13 18:00:00, Duration: 30 day, Stop date: 06/15/13 12:00:00 Acetylcysteine 2 mL, Route: Inactive An[facility]a 100 MG/ML [facility], Drug 2013 [facility] Inhalant Form: SOLN, Solution Dosing Weight 80.909, kg, Q8H, Start date: 05/16/13 16:00:00, Duration: 30 day, Stop date: 06/15/13 8:00:00 acetylcysteine 200 mg, 1 No Longer Ka ty mL, Route: Active 2013 [facility], Drug Form: SOLN, RQ8H, Start date: 05/16/13 15:00:00, Duration: 30 day, Stop date: 06/15/13 7:00:00 Albuterol 0.833 3 ml, Route: No Longer H Anusha MG/ML / INHALATION, Active 2013 [facility] Ipratropium Drug Form: Dahinda 0.167 SOLN, Dosing MG/ML Inhalant Weight Solution 80.909, kg, [DuoNeb] RQ4H, Start date: 05/16/13 15:00:00, Duration: 30 day, Stop date: 06/15/13 11:00:00([facility] e as: Duoneb) Cipro 400 mg, 200 No Longer Anusha mL, Route: Active 2013 [facility] IVPB, Drug form: INJ, [id number], Dosing Weight 80.909, kg, Start date: 05/16/13 13:00:00, Duration: 30 day, Stop date: 06/15/13 1:00:00Do not refrigerate dexamethasone 4 mg, 1 mL, No Longer K aty Route: IV, Active 2013 [facility] Drug form: INJ, Q6H, Start date: 05/16/13 12:21:00, Duration: 30 day, Stop date: 06/15/13 12:00:00Conc entration: 4mg/ml Sodium Chloride 25 mL, No Longer Jyoti y 0.9% IV Route: IV, [facility] 2013 [facility] Start date: 05/16/13 12:18:00, Duration: 30 day, Stop date: 06/15/13 13:17:00, PRN Line Flush BD Normal 10 mL, No Longer An[facility] Saline Flush Route: IV, Active 2013 [facility] Drug Form: INJ, PRN, PRN Line Flush, Start date: 05/16/13 12:17:00, Duration: 30 day, Stop date: 06/15/13 13:16:00([facility] e as: BD Posiflush) Robitussin-AC 5 ml, Route: No Longer An[facility]a oral syrup PO, Drug Active 2013 [facility] Form: SYRP, Dosing Weight 80.909, kg, Q4H, PRN Cough/Conges tion, Start date: 05/16/13 12:04:00, Duration: 30 day, Stop date: 06/15/13 12:03:00(cod eine-guaifen esin 20-200mg/10m l LIQ) (Same As: Robitussin AC) predniSONE 20 20 mg, 1 PO Active Hinojosa Anusha mg oral tablet tab, PO, 2012 [facility] BID, 14 tab, Substitution Allowed, TAB DuoNeb 3 ml, INHALATION Active Hinojosa [facility] inhalation INHALATION, 2012 [facility] solution Q4H, 120 ea, Substitution Allowed, Maintenance, SOLN DuoNeb 3 ml, Route: NEB No Longer Hinojosa 09/11/ Anusha inhalation NEB, Drug Active 2012 [facility] solution Form: SOLN, Dosing Weight 80.028, kg, RQ4H, Start date: 09/11/12 15:00:00, Duration: 30 day, Stop date: 10/11/12 11:00:00 albuterol-iprat 3 ml, INHALATION Active Ellis ty ropium 2.5-0.5 INHALATION, 2012 Hospi vasquez mg inhalation QID, 30 ea, solution Substitution Allowed, Maintenance, SOLN Combivent 2 puff, INHALER Active An[facility]a inhalation INHALER, 2012 [facility] aerosol with QID, 14 gm, adapter [...] Anusha 500 mg oral tab, PO, 2012 [facility] tablet Daily, 7 tab, Substitution Allowed predniSONE 20 20 mg, 1 PO Active [facility] mg oral tablet tab, PO, 2012 Hospital BID, Substitution Allowed, TAB Cipro 400 mg, 200 IVPB No Longer Hinojosa Anusha mL, Route: Active 2012 [facility] IVPB, Drug form: INJ, [id number], Dosing Weight 80.028, kg, Start date: 09/11/12 12:00:00, Duration: 30 day, Stop date: 10/11/12 0:00:00 methylPREDNISol 40 mg, 1 mL, IVP No Longer Hinojosa 09/11/ M H Anusha one SODium Route: IVP, Active 2012 [facility] SUCCinate Drug form: INJ, Q8H, Dosing Weight 80.028, kg, Priority: Routine, Start date: 09/11/12 12:00:00, Duration: 30 day, Stop date: 10/11/12 4:00:00 Sodium Chloride 25 mL, IV No Longer Hinojosa 09/11/ Jyoti y 0.9% IV Route: IV, Active [address] [place] [address] Start date: 09/11/12 11:48:00, Duration: 30 day, Stop date: 10/11/12 11:47:00, PRN Line Flush BD Normal 10 mL, IV No Longer Kannan 09/11Rico Tavares Saline Flush Route: IV, [address] Drug Form: INJ, PRN, PRN Line Flush, Start date: 09/11/12 11:48:00, Duration: 30 day, Stop date: 10/11/12 11:47:00 Robitussin-AC 5 ml, Route: PO No Longer Kannan 09/11/ PATTIE Tavares oral syrup PO, Drug Active 2012 [facility] Form: SYRP, Dosing Weight 80.028, kg, Q4H, PRN Cough/Conges tion, Start date: 09/11/12 11:36:00, Duration: 30 day, Stop date: 10/11/12 11:35:00 NS 1,000 mL 1,000 mL, IV No Longer Kannan 09/11Rico Tavares Rate: [address] [address] Hospital ml/hr, Infuse over: 10 hr, Route: [...] Assertion Drug Active Data migr ated from [employer] on 07/10/14. Originally documented as KEFLEX. [facility] <sup>[facility], [facility]exin Assertion Drug Active Data migr ated from [employer] on 05/11/16. Originally documented as Keflex. Mischer <sup>2, 3, allergy 7 Data migrated from [employer] on 07/10/14. Originally documented as KEFLEX. Neuro 4</sup> exudative dermat itis cephalexin Assertion Drug Active Data migr ated from [employer] on 05/11/16. Originally documented as Keflex. MH Anusha <sup>1, 2, allergy 7 Data migrated from [employer] on 07/10/14. Originally documented as KEFLEX. Hospital [...] 12.7 10.0 - 06/24 Anusha S 20.0 [facility] ELECTROLYTE BUN 7 7 - 22 06/24 Anusha S [facility] ELECTROLYTE Glucose Lvl 101 70 - 99 06/24 Anusha S [facility] BACTERIAL - Strep Negative Negative 06/23 [...] 1+ None Seen 06/22 Anusha *ABN* /2016 [facility] (06/22/16 4:19 AM) HEMATOLOGY Monocytes # 1.0 0.0 - 0.8 06/22 Anusha [facility] HEMATOLOGY Basophils 0.2 0.0 - 1.0 06/22 [facility] HEMATOLOGY Monocytes 12.1 2.0 - 12.0 06/22 Anush[facility] HEMATOLOGY Lymphocytes 5.5 20.0 - 06/22 [facility] 40.0 Hospital HEMATOLOGY Segs 81.7 45.0 - 06/22 [facility] 75.0 Hospital HEMATOLOGY Eosinophils 0.5 0.0 - 4.0 06/22 Anusha [facility] HEMATOLOGY Lymphocytes 0.5 1.0 - 5.5 06/22 Anusha # /2016 [facility] HEMATOLOGY Segs-Bands # 6.8 1.5 - [...] Negative Negative 06/21 An[facility]a STOOL *NA* /2016 [facility] (06/21/16 5:17 PM) URINE AND UA Ketones 80 mg/dL Negative 06/21 [facility] STOOL mg/dL Hospital URINE AND UA Turbidity Slight Clear 06/21 [facility] STOOL *ABN* /2016 Hospital (06/21/16 5:17 PM) URINE AND UA pH 5.0 5.0 - 8.0 06/21 [facility] STOOL [facility] URINE AND UA Spec Grav 1.023 [...] Occasional Few /LPF 06/21 An[facility] STOOL /LPF [facility] URINE AND UA Leuk Est Negative Negative 06/21 [facility] STOOL (06/21/16 5:17 PM) Hospit al URINE AND UA Bacteria Occasional None Seen 06/21 Ka ty STOOL /HPF /HPF Hospital URINE AND UA <=1.0 0.1 - 1.0 06/21 [facility] STOOL Urobilinogen mg/dL [facility] CARDIAC Troponin-I 0.02 0.00 - 06/21 [facility] ENZYMES 0.40 [facility] CARDIAC CK MB <0.5 0.5 - 3.6 06/21 [facility] ENZYMES [facility] CARDIAC Total CK 49 12 - 191 06/21 [facility] ENZYMES [facility] CARDIAC CK MB Index <1.0 0.0 - 2.5 06/21 An[facility] ENZYMES [facility] CHEM PANEL B/C Ratio 25 6 - 25 06/21 [facility] CHEM PANEL Globulin 3.6 2.7 - 4.2 06/21 Anusha [facility] CHEM PANEL A/G Ratio 0.9 0.7 - 1.6 06/21 Anush[facility] CHEM PANEL Alk Phos 56 39 - 136 06/21 [facility] CHEM PANEL AST 24 0 - 37 06/21 Hospital CHEM PANEL Bili Total 0.7 0.2 - 1.3 06/21 Anusha [facility] CHEM PANEL Albumin Lvl 3.2 3.5 - 5.0 06/21 [facility] CHEM PANEL ALT 31 0 - 65 06/21 Anusha [facility] CHEM PANEL Total 6.8 6.4 - 8.4 06/21 [facility] HEMATOLOGY PT 12.4 12.0 - 06/21 [facility] 14.7 Hospital HEMATOLOGY INR 0.91 0.85 - 06/21 [facility] 1.17 Hospital HEMATOLOGY MPV 9.2 7.4 - 10.4 06/21 Anusha [facility] HEMATOLOGY RDW 13.6 11.5 - 06/21 [...] HEMATOLOGY WBC 10.1 3.7 - 10.4 06/21 [facility] HEMATOLOGY RBC 4.83 4.70 - 06/21 [...] 06/21 [facility]16 4:15 PM[facility] - [facility] A Negative Negative 06/21 [facility] (06/21/16 4:15 PM[facility] CHEM PANEL eGFR 92 05/18 [...] Chloride Lvl 110 95 - 109 03/ [facility] CHEM PANEL Glucose Lvl 95 70 - 99 03 Hospital CHEM PANEL Sodium Lvl 144 135 - 145 03/ Hospital CHEM PANEL BUN 8 7 - 22 03/ [facility] HEMATOLOGY Eosinophils 3.1 0.0 - 4.0 03/08 [facility] HEMATOLOGY Lymphocytes 1.4 1.0 - 5.5 03/ Anusha # [facility] HEMATOLOGY Segs-Bands # 3.2 1.5 - 8.1 03 [facility] HEMATOLOGY Monocytes 11.9 2.0 - 12.0 03/ [facility] HEMATOLOGY Basophils 0.4 0.0 - 1.0 03/ [facility] HEMATOLOGY Macrocyte 1+ None Seen 05/18 An[facility]a *ABN* /2016 [facility] (05/18/16 5:43 AM) HEMATOLOGY Eosinophils 0.2 0.0 - 0.5 03/08 Anusha # [facility] HEMATOLOGY Monocytes # 0.6 0.0 - 0.8 03/ Anusha [facility] HEMATOLOGY Lymphocytes 25.2 20.0 - 03/08 [...] 1+ None Seen 05/17 An[facility]a *ABN* /2016 [facility] (05/17/16 1:08 PM) HEMATOLOGY Monocytes # [...] ELECTROLYTE BUN 5 7 - 22 05/17 [facility] Hospital ELECTROLYTE Glucose Lvl 89 70 - 99 05/17 [facility] Hospital ELECTROLYTE eGFR 87 05/17 Result Comment: [...] Calcium Lvl 8.8 8.5 - 10.5 07/18 [facility] CHEM PANEL Creatinine 0.78 0.50 - 05/08 [...] 0.2 0.0 - 0.2 05/ Anusha /2015 [facility] HEMATOLOGY Segs-Bands # 11.8 1.5 - [...] 0.0 0.0 - 4.0 05/08 Anusha /2015 [facility] HEMATOLOGY Monocytes 3.4 2.0 - 12.0 05/08 [facility] /2016 Hospital HEMATOLOGY MCH 32.9 27.0 - 05/08 [facility] 31.0 Hospital HEMATOLOGY MCV 101.1 80.0 - 0508 [facility] 94.0 Hospital HEMATOLOGY MCHC 32.6 32.0 - 05/08 [facility] 36.0 /2015 Hospital HEMATOLOGY WBC 12.6 3.7 - 10.4 07/18 [facility] /2015 Hospital HEMATOLOGY RBC 4.21 4.70 - 07/18 [facility] 6.10 [facility] HEMATOLOGY Hgb 13.9 14.0 - 07/18 [facility] 18.0 Hospital HEMATOLOGY Hct 42.6 42.0 - 07/18 [facility] 54.0 Hospital HEMATOLOGY MPV 8.4 7.4 - 10.4 07/18 Anusha /2015 [facility] HEMATOLOGY Platelet 165 133 - 450 07/18 Anush[facility] HEMATOLOGY RDW 14.6 11.5 - 07/18 [facility] 14.5 Hospital ELECTROLYTE AGAP 9.3 10.0 - 07/15 [facility] S 20.0 [facility] ELECTROLYTE B/C Ratio 14 6 - 25 07/15 Anusha S [facility] ELECTROLYTE Globulin 3.2 2.0 - 4.0 07/15 Anush[facility] S [facility] ELECTROLYTE A/G Ratio 0.9 0.7 - 1.6 07/15 Anusha S [facility] ELECTROLYTE Potassium 4.3 3.5 - 5.1 07/15 [facility] S Lvl /2015 [facility] ELECTROLYTE Chloride Lvl 106 95 - 109 05 Jyoti y S Hospital ELECTROLYTE Sodium Lvl 139 135 - 145 05 Anusha S [facility] ELECTROLYTE eGFR 76 07/15 Result Comment: [...] 70 - 99 05/05 An[facility]a S /2015 [facility] ELECTROLYTE BUN 14 7 - 22 05/05 Anusha S /2016 [facility] ELECTROLYTE Creatinine 1.01 0.50 - 05/05 An[facility] S Lvl 1.40 /2015 [facility] ELECTROLYTE Calcium Lvl 8.2 8.5 - 10.5 05/05 Ka ty S /2015 [facility] ELECTROLYTE CO2 28 24 - 32 05/05 Anusha S /2015 [facility] ELECTROLYTE Albumin Lvl 3.0 3.5 - 5.0 05/05 Jyoti y S [facility] ELECTROLYTE ALT 29 0 - 65 05/05 Anusha S /2015 [facility] ELECTROLYTE Total 6.2 6.4 - 8.4 05/05 Anusha S Protein [facility] ELECTROLYTE Bili Total 0.4 0.2 - 1.3 05/05 Anusha S [facility] ELECTROLYTE AST 36 0 - 37 05/05 Anush[facility] S [facility] ELECTROLYTE Alk Phos 56 39 - 136 05/05 Anusha S [facility] HEMATOLOGY Lymphocytes 2.3 20.0 - 05/05 Anusha 40.0 [facility] HEMATOLOGY Segs-Bands # 10.4 1.5 - 8.1 05/05 Jyoti y [facility] HEMATOLOGY Basophils 0.0 0.0 - 1.0 05/05 Anusha /2016 [facility] HEMATOLOGY Monocytes 3.2 2.0 - 12.0 05/05 Anusha 2016 [facility] HEMATOLOGY Segs 94.5 45.0 - 05/05 [facility] 75.0 Hospital HEMATOLOGY Basophils # 0.0 0.0 - 0.2 05/05 Anusha /2016 [facility] HEMATOLOGY Eosinophils 0.0 0.0 - 0.5 05/05 Anusha # /2016 Hospital HEMATOLOGY Eosinophils 0.0 0.0 - 4.0 05/05 Anusha /2016 [facility] HEMATOLOGY Monocytes # 0.3 0.0 - 0.8 05/05 Anusha /2016 [facility] HEMATOLOGY Lymphocytes 0.3 1.0 - 5.5 05/05 Anusha # /2016 [facility] HEMATOLOGY MCHC 33.3 32.0 - 05/05 [facility] 36.0 /2016 Hospital HEMATOLOGY MPV 8.4 7.4 - 10.4 05/05 Anusha /2016 [facility] HEMATOLOGY Platelet 167 133 - 450 05/05 [facility] HEMATOLOGY MCH 33.6 27.0 - 05 Anusha 31.0 /2015 [facility] HEMATOLOGY RDW 15.5 11.5 - 05 Anusha 14.5 [facility] HEMATOLOGY Hgb 13.6 14.0 - 07/15 Anusha 18.0 [facility] HEMATOLOGY RBC 4.05 4.70 - 07/15 [facility] 6.10 Hospital HEMATOLOGY MCV 100.9 80.0 - 07/15 [facility] 94.0 /2015 Hospital HEMATOLOGY Hct 40.9 42.0 - 05 Anusha 54.0 /2015 [facility] HEMATOLOGY WBC 11.0 3.7 - 10.4 07/15 Hospital CHEM PANEL BUN 14 7 - 22 05 [facility] CHEM PANEL Sodium Lvl 143 135 - 145 05 [facility] CHEM PANEL Glucose Lvl 140 70 - 99 07/14 Hospital CHEM PANEL Chloride Lvl 107 95 - 109 07/14 Hospital CHEM PANEL Potassium 4.1 3.5 - 5.1 07/14 [facility] Lvl Hospital CHEM PANEL CO2 25 24 - 32 05 Hospital CHEM PANEL Albumin Lvl 3.5 3.5 - 5.0 07/14 [facility] CHEM PANEL Calcium Lvl 8.9 8.5 [...] PANEL AST 35 0 - 37 05/ [facility] CHEM PANEL Creatinine 1.17 0.50 - 05/ Anusha Lvl 1.40 /2015 [facility] CHEM PANEL ALT 40 0 - 65 05/ [facility] CHEM PANEL Total 7.0 6.4 - 8.4 05/ Anusha Protein [facility] CHEM PANEL Alk Phos 66 39 - 136 05/ Anusha [facility] CHEM PANEL Bili Total 0.4 0.2 - 1.3 05/ Anusha [facility] CHEM PANEL AGAP 15.1 10.0 - 05 Anusha 20.0 [facility] CHEM PANEL Globulin 3.5 2.0 - 4.0 05/ [facility] CHEM PANEL A/G Ratio 1.0 0.7 - 1.6 05/ [facility] CHEM PANEL B/C Ratio 12 6 - 25 05/ [facility] HEMATOLOGY INR 0.98 0.85 - 05 Anusha 1.17 [facility] HEMATOLOGY PT 13.3 12.0 - 05 Anusha 14.7 [facility] HEMATOLOGY Platelet 218 133 - 450 05/ [facility] HEMATOLOGY MPV 8.1 7.4 - 10.4 05/ [facility] HEMATOLOGY Hct 45.9 42.0 - 05 Anusha 54.0 /2015 [facility] HEMATOLOGY MCHC 32.4 32.0 - 05 [facility] 36.0 Hospital HEMATOLOGY RDW 15.2 11.5 - 05 [facility] 14.5 /2015 Hospital HEMATOLOGY MCV 101.9 80.0 - 05 [facility] 94.0 /2015 Hospital HEMATOLOGY MCH 33.0 27.0 - 05/ [facility] 31.0 Hospital HEMATOLOGY WBC 17.8 3.7 - 10.4 05/ Anusha [facility] HEMATOLOGY RBC 4.51 4.70 - 05 Anusha 6.10 [facility] HEMATOLOGY Hgb 14.9 14.0 - 05/ [facility] 18.0 Hospital HEMATOLOGY Monocytes # 1.1 0.0 - 0.8 05/ MH Anusha [facility] HEMATOLOGY Eosinophils 0.0 0.0 - 0.5 07/14 Anusha # /2015 Hospital HEMATOLOGY Segs-Bands # 15.4 1.5 - 8.1 07/14 Jyoti y Hospital HEMATOLOGY Lymphocytes 1.4 1.0 - 5.5 07/14 MH Anusha # /2015 Hospital HEMATOLOGY Eosinophils 0.0 0.0 - 4.0 07/14 Anusha [facility] HEMATOLOGY Basophils # 0.0 0.0 - 0.2 07/14 Anusha [facility] HEMATOLOGY Basophils 0.1 0.0 - 1.0 07/14 Anusha [facility] HEMATOLOGY Macrocyte 1+ None Seen 07/14 Anusha *ABN* /2015 [facility] (07/15/15 6:15 PM) HEMATOLOGY Monocytes 6.0 2.0 - 12.0 07/14 Anusha [facility] HEMATOLOGY Plt Morph Normal 07/14 [facility] (07/15/15 6:15 PM) [facility] HEMATOLOGY RBC Morph Normal 07/14 [facility] (07/15/15 6:15 PM) /2015 [facility] HEMATOLOGY Lymphocytes 7.7 20.0 - 07/14 Anusha 40.0 [facility] HEMATOLOGY Segs 86.2 45.0 - 07/14 Anusha 75.0 [facility] CHEM PANEL eGFR 88 07/13 Result [...] # 0.0 0.0 - 0.2 05/03 Anusha [facility] HEMATOLOGY Eosinophils 0.0 0.0 - 0.5 [...] Eosinophils 0.0 0.0 - 4.0 05/ Anusha [facility] HEMATOLOGY Segs-Bands # 5.1 1.5 - [...] 0.50 - 07/13 Anusha Lvl 1.40 /2015 [facility] HEMATOLOGY Platelet 159 133 - 450 [...] 166 133 - 450 05/ MH Anusha [facility] HEMATOLOGY MCHC 33.1 32.0 - 05/ [...] Eosinophils 0.0 0.0 - 4.0 05/ Anusha [facility] HEMATOLOGY Lymphocytes 10.7 20.0 - 05/ Anusha 40.0 [facility] HEMATOLOGY Monocytes # 0.3 0.0 - 0.8 05/ Anusha /2015 [facility] HEMATOLOGY Lymphocytes 0.6 1.0 - 5.5 05/ Anusha # /2015 Hospital HEMATOLOGY Eosinophils 0.0 0.0 - 0.5 05/ Anusha # /2015 Hospital HEMATOLOGY Segs 83.4 45.0 - 05/ Anusha 75.0 [facility] HEMATOLOGY Segs-Bands # 4.8 1.5 - 8.1 05/ Jyoti y Hospital HEMATOLOGY Basophils 0.1 0.0 - 1.0 05/ Anusha [facility] HEMATOLOGY Basophils # 0.0 0.0 - 0.2 05/ Anusha [facility] CHEM PANEL Magnesium 2.2 1.8 - 2.4 05/06 MH Anusha Lvl [facility] CHEM PANEL eGFR 91 05/06 Result [...] Lvl 141 135 - 145 05/04 Anusha [facility] CHEM PANEL AGAP 11.3 10.0 - 05/04 An[facility] 20.0 /2015 Hospital HEMATOLOGY Hct 45.4 42.0 - 05/04 Anusha 54.0 /2015 Hospital HEMATOLOGY MCH 33.8 27.0 - 05/04 Anusha 31.0 [facility] HEMATOLOGY MCV 101.0 80.0 - 05/04 Anusha 94.0 [facility] HEMATOLOGY MPV 8.7 7.4 - 10.4 05/04 Anusha [facility] HEMATOLOGY MCHC 33.5 32.0 - 05/04 Anusha 36.0 /2015 [facility] HEMATOLOGY Hgb 15.2 14.0 - 05/04 [facility] 18.0 Hospital HEMATOLOGY RBC 4.50 4.70 - 05/04 [facility] 6.10 Hospital HEMATOLOGY WBC 12.5 3.7 - 10.4 05/04 Anusha /2015 [facility] HEMATOLOGY Platelet 153 133 - 450 05/04 Anusha [facility] HEMATOLOGY RDW 14.0 11.5 - 05/04 [facility] 14.5 /2015 Hospital ELECTROLYTE AGAP 11.8 10.0 - 05/16 [facility] S 20.0 Hospital ELECTROLYTE Chloride Lvl 107 95 - 109 05/16 Jyoti y S Hospital ELECTROLYTE Sodium Lvl 142 135 - 145 05/16 Anusha S Hospital ELECTROLYTE Potassium 3.8 3.5 - 5.1 05/16 [facility] S Lvl Hospital ELECTROLYTE eGFR 88 05/16 <sup>1</sup>R Jyoti y S [facility] Comment: The eGFR is calculated using [...] values reflect the clinical guidelines
of the [place] [employer]. ELECTROLYTE CO2 27 24 - 32 05/16 Anusha S [facility] ELECTROLYTE Calcium Lvl 8.9 8.5 - 10.5 05/16 Ka ty S [facility] ELECTROLYTE BUN 10 7 - 22 05/16 Anusha S [facility] ELECTROLYTE Creatinine 0.9 0.5 - 1.4 05/16 Anusha S Lvl [facility] HEMATOLOGY Monocytes # 0.6 0.0 - 0.8 05/16 [facility] HEMATOLOGY Eosinophils 0.1 0.0 - 0.5 05/16 Anusha # /2013 [facility] HEMATOLOGY Basophils # 0.0 0.0 - 0.2 05/16 Hospital HEMATOLOGY Eosinophils 1.6 0.0 - 4.0 05/16 [facility] HEMATOLOGY Monocytes 7.2 2.0 - 12.0 05/16 Anusha [facility] HEMATOLOGY Segs-Bands # 6.2 1.5 - 8.1 05/16 J[facility] y [facility] HEMATOLOGY Basophils 0.2 0.0 - 1.0 05/16 [facility] HEMATOLOGY Lymphocytes 1.1 1.0 - 5.5 [...] 149 133 - 450 05/16 Anusha /2013 [facility] HEMATOLOGY RDW 13.7 11.5 - 05/16 Anusha 14.5 /2013 Hospital HEMATOLOGY MPV 8.9 7.4 - 10.4 05/16 Anusha [facility] HEMATOLOGY RBC X 10x6 4.17 4.70 - 05/16 Anush[facility] 6.10 Hospital HEMATOLOGY WBC X 10x3 8.0 3.7 - 10.4 05/16 Anusha [facility] HEMATOLOGY Large Plt Slight None Seen 09/12 [facility] Anusha *ABN* Hospital (09/12/2012 03:55:40) HEMATOLOGY Tear Cell Slight None Seen 09/12 [facility] Anusha *ABN* [facility] (09/12/2012 03:55:40) HEMATOLOGY Elliptocyte Slight None Seen 09/12 [facility] Anusha *ABN* [facility] (09/12/2012 03:55:40) HEMATOLOGY Basophils # 0.0 0.0 - 0.2 09/12 Normal [facility] HEMATOLOGY Macrocyte 1+ None Seen 09/12 [facility] Anusha *ABN* [facility] (09/12/2012 03:55:40) HEMATOLOGY Monocytes # 0.5 0.0 - 0.8 09/12 Normal Anusha [facility] HEMATOLOGY Eosinophils 0.0 0.0 - 0.5 09/12 Normal Anusha [facility] HEMATOLOGY Lymphocytes 0.8 1.0 - 5.5 09/12 LOW [facility] HEMATOLOGY Lymphocytes 4.6 20.0 - 09/12 LOW [facility] 40.0 Hospital HEMATOLOGY Monocytes 3.1 2.0 - 12.0 09/12 Normal Anusha [facility] HEMATOLOGY Segs-Bands # 15.4 1.5 - [...] eGFR 78 09/11 NA <sup>1</sup>R MH [facility] Comment: The eGFR is calculated using [...] values reflect the clinical guidelines
of the [employer]. CHEMISTRY AGAP 14.4 10.0 - [...] 0.0 - 0.8 / Normal Anusha /2012 [facility] HEMATOLOGY Monocytes 3.2 2.0 - 12.0 / Normal Anusha /2012 [facility] HEMATOLOGY Segs-Bands # 17.1 1.5 - 8.1 09/11 HI Jyoti y /2012 [facility] HEMATOLOGY Lymphocytes 0.7 1.0 - 5.5 / LOW Anusha # /2013 [facility] HEMATOLOGY Eosinophils 0.0 0.0 - 4.0 / Normal Anusha /2012 [facility] HEMATOLOGY Basophils 0.0 0.0 - 1.0 / Normal Anusha /2012 [facility] HEMATOLOGY Segs 92.9 45.0 - 09/11 HI Anusha 75.0 /2012 [facility] HEMATOLOGY Plt Morph Normal 09/11 Normal [facility] (09/11/2012 12:30:00) Ho spital HEMATOLOGY Lymphocytes 3.9 20.0 - 09/11 LOW Anusha 40.0 /2012 [facility] HEMATOLOGY RBC Morph Normal 09/11 Normal [facility] (09/11/2012 12:30:00) Ho spital Pathology Reports No Data Provided for This Section Diagnostic Reports Report Value Date Source Spine lumbar puncture FLUOROSCOPIC DIRECTED LUMBAR PUNCTURE 06/11 [facility] w fluoro DX HISTORY: Meningitis.. FLUORO TIME: [...] No immediate complication evident. END REPORT SL: [id number] Brain w/wo contrast MRI head without and with contrast. 06/23/[address] [place] [address] MRI Indication: Headache for pas t 2 [...] other etiologies can also be considered. SL: [id number] Chest Pulmonary PROCEDURE: CTA CHEST 06/21/2016 Anusha [...] 06/21/2016 2:29 PM CDT : 7 [facility] HISTORY: Dizziness. COMPARISON: None FINDINGS: Heart size and vascularity a re within normal limits. Emphysematous changes with hyperlucency and distortion of pulmonary architecture. The lungs are clear of focal consolidation. No effusion, pneumothorax, or acute osseous abnormality. IMPRESSION: 1. No radiographic evidence of acute cardiopulmo nary process. SL: [id number] Brain wo contrast CT Addendum: Addendum: 06/21/2016 [facility] I reviewed this examination and concur with [...] to chronic small vessel ischemic changes. 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 Wound infection [...] DX One view portable chest: 07/15/2015 [facility] HISTORY: Dyspnea. FINDINGS: No active process in the chest. Exam is stable compared with 07/13/2015. SL: [id number] Chest 1view DX Patient Name: SHIRLENE NICHOLAS. 07/13/2015 [facility] : 1945; Age: 70 years y/o; Male. MR: [id number]. Ordering Physician: Maryuri Mariscal MD. PORTABLE CHEST [...] contrast with high-res olution images. 05/07/2015 [facility] INDICATION: Shortness of thony ath with dyspnea [...] right kidney is partially visualized in the [id number]. 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 IMPRESSION: 1. Moderate dependent atelectasis in the lower l obes. 2. Mild emphysematous changes. 3. Atherosclerosis. 4. Partial visualization of right renal cyst. SL: [id number] Chest 1view DX Chest one view 05/04/2015 [facility] HISTORY: Short of breath COMPARISON: 04/25/2014 Lungs [...] DX One view portable chest: 04/25/2014 [facility] HISTORY: Asthma exacerbation. FINDINGS: Lungs are hyperinf lated but clear. The heart and mediastinal contours stable from 05/16/2013. No pleural fluid or pneumothorax. IMPRESSION: No acute finding. SL: 200 Shoulder wo contrast MRI LEFT SHOULDER WITHOUT CONTRAST: 014 [facility] MRI HISTORY: Left shoulder pain. COMPARISON: [...] cuff tear. 2. Tear of the entire armhole feller handstitching machine ior glenoid labrum with paralabral cysts. SLAP [...] for fracture. Bobby Sheldon M.D. dg/penrad:10/09/2013 15:52:48 Machine Joint Cutter: Meeta TORRES Chest 2 views 2 VIEW [...] Mischer [facility] uro Heart Rate 81 06/28/2016 [facility] Resp[facility] Syst[facility]mm Hg) 136 06/28/2016 [facility] Diastolic (mm Hg) 76 06/28/2016 [facility] Temperature Oral (F) 98.5 F 06/28/2016 [facility] Systolic (mm Hg) 134 06/28/2016 [facility] Diastolic (mm Hg) 75 06/28/2016 [facility] Respitory Rate 20 06/28/2016 [facility] Heart Rate 95 06/28/2016 [facility] Temperature Oral (F) 98.1 F 06/28/2016 [facility] Temperature Oral (F) 97.5 F 06/28/2016 [facility] Heart Rate 92 06/28/2016 [facility] Systolic (mm Hg) 153 [...] tious Disease Systolic (mm Hg) 142 05/18/2016 [facility] Diastolic (mm Hg) 69 05/18/2016 [facility] Heart Rate 70 05/18/2016 [facility] Respitory Rate 18 05/18/2016 [facility] vasquez Temperature Oral (F) 98.5 F 05/18/2016 [facility] Temperature Oral (F) 98.4 F 05/18/2016 [facility] Heart Rate 61 05/18/2016 [facility] Systolic (mm Hg) 154 05/18/2016 [facility] Diastolic (mm Hg) 89 05/18/2016 [facility] Respitory Rate 17 05/18/2016 [facility] Temperature Oral (F) 98.2 F 05/18/2016 [facility] Respitory Rate 18 05/18/2016 [facility] Heart Rate 51 05/18/2016 [facility] Systolic (mm Hg) 163 05/18/2016 [...] [facility] Heart Rate 65 07/20/2015 [facility] Temperature Oral (F) 98.4 F 07/20/2015 [facility] Temperature Oral (F) 98.3 F 07/20/2015 [facility] Respitory Rate 18 07/20/2015 An[facility]a [...] Temperature Oral (F) 97.4 F 07/20/2015 [facility] Height 203.2 cm 07/16/2015 [facility] BMI Calculated 22.2 07/15/2015 [facility] Height 175.26 cm 07/15/2015 [facility] Weight 68.182 07/15/2015 [facility] Respitory Rate 18 07/14/2015 [facility] Heart Rate 78 07/14/2015 [facility] Systolic (mm Hg) 110 07/14/2015 [facility] Diastolic (mm Hg) 54 07/14/2015 [facility] Temperature Oral (F) 98.6 F 07/14/2015 [facility] Respitory Rate 18 07/14/2015 [facility] Systolic (mm Hg) 136 07/14/2015 [facility] Diastolic (mm Hg) 76 07/14/2015 [facility] Heart Rate 61 07/14/2015 [facility] Temperature Oral (F) 98 F 07/14/2015 [facility] Temperature Oral (F) 98.2 F 07/14/2015 [facility] Heart Rate 83 07/14/2015 [facility] Systolic (mm Hg) 134 07/14/2015 [facility] Diastolic (mm Hg) 75 07/14/2015 [facility] Respitory Rate 18 07/14/2015 [facility] Height 182.88 cm 07/14/2015 [facility] Height 182.88 cm 07/14/2015 [facility] BMI Calculated 21.51 07/13/2015 [facility] Weight 71.932 07/13/2015 [facility] Height 182.88 cm 07/13/2015 [facility] Heart Rate 78 05/07/2015 [facility] Temperature Oral (F) 98 F 05/07/2015 [facility] Systolic (mm Hg) 132 05/07/2015 [facility] Diastolic (mm Hg) 78 05/07/2015 [facility] spital Respitory Rate 18 05/07/2015 [facility] vas[facility] Temperature Oral (F) 98.1 F 05/07/2015 [facility] Respitory Rate 18 05/07/2015 [facility] Systolic (mm Hg) 125 05/07/2015 [facility] Diastolic (mm Hg) 75 05/07/2015 [facility] Heart Rate 74 05/07/2015 [facility] Heart Rate 75 05/07/2015 [facility] Systolic (mm Hg) 134 05/07/2015 [facility] Diastolic (mm Hg) 69 05/07/2015 [facility] Respitory Rate 19 05/07/2015 [facility] Temperature Oral (F) 97.9 F 05/07/2015 [facility] Weight 71.023 05/04/2015 [facility] BMI [...] Temperature Oral (F) 98.1 F 05/18/2013 [facility] Respitory Rate 18 05/18/2013 [facility] Heart Rate 85 05/18/2013 [facility] Systolic (mm Hg) 116 05/18/2013 [facility] Diastolic (mm Hg) 62 05/18/2013 [facility] Systolic (mm Hg) 118 05/18/2013 [facility] Diastolic (mm Hg) 60 05/18/2013 [facility] Temperature Oral (F) 96.8 F 05/18/2013 [facility] Respitory Rate 18 05/18/[facility] 82 [facility]18[facility] Diastolic (mm Hg) 59 05/18/2013 [facility] Temperature Oral (F) 96.5 F 05/18/2013 [facility] Respitory Rate 18 05/18/2013 [facility] Systolic (mm Hg) 114 05/18/2013 [...] Temperature Oral (F) 96.9 F 09/12/2012 [facility] Heart Rate 61 09/12/2012 [facility] Diastolic (mm Hg) 66 09/12/2012 [facility] Systolic (mm Hg) 127 09/12/2012 [facility] Respitory Rate 18 09/12/2012 [facility] Heart Rate 91 09/12/2012 [facility] Temperature Oral (F) 96.3 F 09/12/2012 [facility] Systolic (mm Hg) 129 09/12/2012 [facility] Diastolic (mm Hg) 63 09/12/2012 [facility] Heart Rate 57 09/12/2012 [facility] Respitory Rate 18 09/12/2012 [facility] Temperature Oral (F) 96.9 F 09/12/2012 [facility] Weight 80.028 09/11/2012 [facility] Height 182.88 cm 09/11/2012 [facility] Encounters Location Location Encounter Encounter Reason Attending ADM DC Stat us Source Details Type Number For Provider Date Date Visit [facility] Inpatient [id number] JOSÉ MIGUEL HINOJOSA 09/11 09/12 Disch arg [facility] ed [facility] Inpatient [id number] _MAPID: José Miguel Hinojosa 05/17 05/18 [facility] Arroyoann 5 [id number] ENCNTRR /2013 [facility] [id number] Hospital 122 [facility] Outpt Diag [id number] Sriram Royal 10/09 10/10 [facility] 0 [facility] Dave Tavares [facility] Office [id number] [facility]i11[facility] 7[facility] DeFriece, Philip Reyna MD Group Group [facility] Outpt Diag [id number] Ifeanyi11/27 M [facility] Outpatient [facility] 1 DeFriece /2013 [facility] Imaging [facility] Lab Report [id number] Ifeanyi11/28 Damien 99946 DeFriece, Philip Reyna MD Group Group - [facility] Office [id number] Ifeanyi12/03 [facility] 612[facility] DeFriece, /2013 Philip Reyna MD Group Group [facility] Office [id number] Ifeanyi02/18 [facility] [id number] DeFriece, /2013 Philip Reyna MD Group Group [facility] Office [id number] Ifeanyi 02/20 02/20 Damien Visit [id number] DeFriece, Philip Reyna MD Group Group [facility] Office [id number] Ifeanyi 03/14 03/14 Damien Visit [id number] DeFriece, Philip Reyna MD Group Group [facility] Office [id number] Ifeanyi 07/23 07/23 Damien Visit [id number] DeFriece, Philip Reyna MD Group Group [facility] Outpt Diag [id number] Ifeanyi 07/28 07/29 M H [facility] Outpatient Services 2 DeFriece /2014 [facility] Outpt Diag [id number] Ifeanyi 07/31 08/01 M H [facility] Outpatient Services 3 DeFriece /2014 [facility] Outpatient [id number] IFEANYI 04/17 [facility] Inpatient [id number] José Miguel Hinojosa 05/06 05/07 [facility] Quezada [facility] OBS [id number] Alicia 07/12 07/13 [facility] Quezada Observation 4 Hosp ital [facility] Inpatient [id number] Alicia 07/14 07/19 [facility] Quezada 5 [facility] [id number] AXEL 03/03 Active [facility] 1 [place] [facility] [id number] AXEL 03/22 Active [facility] 2 [facility] Outpatient [id number] AXEL 05/11 Active [facility] 3 [place] [facility] [id number] AXEL 05/17 Active [facility] 4 [facility] Inpatient [id number] Crow Darianni 05/17 05/19 Anusha Quezada [facility] [id number] Ebba Ning 05/30 06/29 Anusha Quezada 0 Tsinopo Reha b [facility] Inpatient [id number] Kohler 06/21 06/29 Anusha Damien 9 Ishfaq /2016 [facility] [id number] [facility] 07/11 [facility] [id number] AXEL 08/04 [facility] [place] [facility] [id number] AXEL 08/09 [facility] [place] [facility] [id number] NURSE VISIT 08/11 [facility] [place] [facility] [id number] AXEL 08/17 [facility] [place] [facility] Phone [id number] 04/12 04/14 [facility] Message Neuro [facility] Outpatient [id number] Ifeanyi 04/24 04/25 [facility] 3 [facility] Outpatient [id number] Roddy Wyatt 06/05 06/06 [facility] Neuro [facility] Ambulatory [id number] Roddy Wyatt 11/29 11/29 [facility] Pre-Reg Neuro Anusha Procedures Procedure Code Date Perfomer Comments Source smoking/tobacco 14 11/26/2013 DONE Medica l cessation, Group patient education and counseling Appendectomy; [address]32 [facility] Neuro,[facility] ORIF - Open [id number] [facility] reduction and Neuro,[facility] internal fixation Rehab,M [facility] of fracture [place],[facility] ORIF - Open [id number] [facility] internal fixation of fracture Assessment and Plan Assessment and Plan Date Source Extracted from:Title: Consult Note 06/29/2016 [facility] Author: Dominique Souza MD Date: 06/24/16 [...] Extracted from:Title: Progress Note * 07/20/2015 [facility] Author: Alicia Payan MD Date: 07/19/15 Impression and Plan 1. Acute exacerbation of chronic obstru ctive pulmonary disease with acute worsening secondary to smoking and tobacco abuse disorder. continue with nebulizations, IV antibiotics, and IV steroids. Cont inue with incentive spirometry and aggre ssive pulmonary toilet. The patient's computer aided design drafter, Dr. Hinojosa, is following for further evaluation [...] 06/05/17 Social History TypeResponse 05/18/2016 [facility] Substance Abuse Use: None. IV drug [...]
--- OUTSIDE RECORDS SUMMARY | 2020-04-22 12:48 | XMS REPORT | Continuity of Care Document ---
:1945 Author Organization [facility] t Address [address] [place] [address] Care Team Providers Name Role Phone Mj Wyatt Attending Clinician Best Prince Attending Clinician Josy Attending Clinician Holley Calzada Attending Clinician Jefe Payan Attending Clinician Kannan Attending Clinician Mu Villasenor Attending Clinician Lele Attending Clinician Ishfaq Admitting Clinician Hollye Calzada Admitting Clinician Jefe Payan Admitting Clinician Kannan Admitting Clinician Payers Payer Name Policy Type Policy Number Effective Date Expiration Date S ource Problems Condition Condition Condition Status Onset Resolution Last Treating Co mments Source Name Details Category Date Date Treatment Clinician Date Essential Problem Active 2018-06-18 Me moria tremor - 11:05:32 l (disorder) 00:00: Shravan n Essential 00 tremor (disorder) Active 10/19/2016 Problem 06/18/2018 Data migrated from [email or web address] on 12/27/2016 . Originally documented as Essential tremor.Bud a migrated from [email or web address] on 11/02/2016 . Originally documented as Essential tremor.Bud a migrated from [email or web address] on 05/12/2016 . Originally documented as Essential tremor. [facility] HEADACHE Diagnosis Active 2016-07-04 M emoria 06-21 22:02:00 l HEADACHE 00:00: Shravan n 00 Active 06/21/2016 [facility] FOOT PAIN Diagnosis Active 2016-05-22 Memoria OR INJURY 05-17 20:01:00 l FOOT 00:00: Damien PAIN OR 00 INJURY Active 05/17/2016 [facility] WOUND Diagnosis Active 2016-05-30 Mem oria 1- 09:23:00 l WOUND 08:00: Damien 00 Active 03/13/2016 [facility] ACUTE Diagnosis Active 2015-07-21 Mem oria RESPIRATOR - 11:54:00 l Y FAILURE, ACUTE 00:00: Danielle nn ACUTE RESPIRATOR 00 RESPIRA Y FAILURE, ACUTE RESPIRA Active 07/15/2015 [facility] SHORTNESS Diagnosis Active 2015-07-15 Memoria OF BREATH 5- 18:29:00 l 00:00: Damien SHORTNESS 00 OF BREATH Active 07/15/2015 [facility] PCP Diagnosis Active 2015-07-13 Mem oria SENT/WEAKN 5- 19:58:00 l ESS PCP 00:00: Damien SENT/WEAKN 00 ESS Active 07/13/2015 [facility] ACUTE COPD Diagnosis Active 2015-07-14 Memoria EXACERBATI - 08:45:00 l ON ACUTE 00:00: Damien COPD 00 EXACERBATI ON Active 6 [facility] COPD Diagnosis Active 2015-05-13 Mem oria 2- 22:05:00 l COPD 07:00: Damien 00 Active 05/04/2015 [facility] 305.1 - Diagnosis Active 2014-07-31 Me moria TOBACCO 07-29 14:03:00 l USE DIS 305.1 - 00:01: Shravan n TOBACCO 00 USE DIS Active 07/29/2014 [facility] TOBACCO Condition Active 2014-07-23 Me moria ABUSE 07-25 07:58:30 l TOBACCO 00:00: [place] ABUSE 00 Active 07/25/2014 [facility] Tobacco Problem Active 2018-06-18 Xiang bethany dependence 07-25 11:05:32 l syndrome Tobacco 00:00: Danielle nn (disorder) dependence 00 syndrome (disorder) Active 07/25/2014 Problem 06/18/2018 Data migrated from [employer] on 09/17/14.Bud a migrated from [employer] on 08/12/14. [facility], [facility] LOSS OF Condition Active 2014-07-23 Nv moria WEIGHT 07-23 07:58:30 l LOSS OF 00:00: Damien WEIGHT 00 Active 07/23/2014 [facility] CAROTID Condition Active 2014-07-23 Me moria BRUIT, 07-23 07:58:30 l RIGHT CAROTID 00:00: [place] BRUIT, 00 RIGHT Active 07/23/2014 [facility] Carotid Problem Active 2018-06-18 Xiang bethany bruit 07-23 11:05:32 l (finding) Carotid 00:00: Herm martha bruit 00 (finding) Active 07/23/2014 Problem 06/18/2018 Data migrated from [employer] on 09/17/14.Ubd a migrated from [employer] on 08/12/14. [facility], [facility] Weight Problem Active 2018-06-18 Memor ia decreased 07-23 11:05:32 l (finding) Weight 00:00: Danielle nn decreased 00 (finding) Active 07/23/2014 Problem 06/18/2018 Data migrated from [employer] on 09/17/14.Bud a migrated from [employer] on 08/12/14. [facility], [facility] PNEUMONIA Diagnosis Active 2014-04-25 Memoria 04-25 11:22:00 l 00:00: Damien PNEUMONIA 00 Active 04/25/2014 [facility] COPD Diagnosis Active 2014-05-02 Mem oria EXACERBATI 04-25 16:47:00 l ON COPD 00:00: Damien EXACERBATI 00 ON Active 5 [facility] RASH Diagnosis Active 2013-032014-02-21 Mem oria 04-24 17:08:00 l RASH 00:00: Damien 00 Active 02/21/2014 [facility] CELLULITIS Diagnosis Active 2013-032014-03-05 Memoria FAILED 04-24 16:34:00 l OUTPATIENT 00:00: Shravan n THERAPY CELLULITIS 00 FAILED OUTPATIENT THERAPY Active 02/21/2014 [facility] HYPOTHYROI Condition Active 2014-07-23 Memoria DISM 11-26 07:58:30 l 00:00: [place] HYPOTHYROI 00 DISM Active 11/26/2013 [facility] HYPOGONADI Condition Active 2014-07-23 Memoria SM 11-26 07:58:30 l 00:00: Damien HYPOGONADI 00 SM Active 4 Condition 07/23/2014 [facility] PERIPHERAL Condition Active 2014-07-23 Memoria VASCULAR 11-26 07:58:30 l DISEASE 00:00: Damien PERIPHERAL 00 VASCULAR DISEASE Active 11/26/2013 [facility] OSTEOPOROS Condition Active 2014-07-23 Memoria IS 11-26 07:58:30 l 00:00: Damien OSTEOPOROS 00 IS Active 4 Condition 07/23/2014 [facility] COPD Condition Active 2014-07-23 Mem oria 11-26 07:58:30 l COPD 00:00: Damien 00 Active 11/26/2013 [facility] Chronic Problem Active 2018-06-18 Xiang bethany obstructiv 11-26 11:05:32 l e lung Chronic 00:00: [place] disease obstructiv 00 (disorder) e lung disease (disorder) Active 11/26/2013 Problem 06/18/2018 Data migrated from [employer] on 09/17/14.Bud a migrated from [employer] on 08/12/14.Bud a migrated from [employer] on 08/12/14. [facility], [facility], VERON[facility] Hypogonadi Problem Active 2018-06-18 M emoria sm 11-26 11:05:32 l (disorder) 00:00: Shravan n Hypogonadi 00 sm (disorder) Active 11/26/2013 Problem 06/18/2018 Data migrated from [employer] on 09/17/14.Bud a migrated from [employer] on 08/12/14.Bud a migrated from [employer] on 08/12/14. [facility] Osteoporos Problem Active 2018-06-18 M emoria is 11-26 11:05:32 l (disorder) 00:00: Shravan n Osteoporos 00 is (disorder) Active 11/26/2013 Problem 06/18/2018 Data migrated from [employer] on 09/17/14.Bud a migrated from [employer] on 08/12/14.Bud a migrated from [employer] on 08/12/14. [facility] Peripheral Problem Active 2018-06-18 M emoria vascular 11-26 11:05:32 l disease 00:00: Damien (disorder) Peripheral 00 vascular disease (disorder) Active 11/26/2013 Problem 06/18/2018 Data migrated from [employer] on 09/17/14.Bud a migrated from [employer] on 08/12/14.Bud a migrated from [employer] on 08/12/14. T[facility] DYSPNEA Diagnosis Active 2012-09-12 Nv moria 03-13 13:24:00 l DYSPNEA 08:00: [place] 00 Active 03/13/2012 [facility] CELLULITIS Diagnosis Active 2014-03-05 Memoria NOS 16:34:00 l [place] CELLULITIS NOS Active [facility] CHRONIC Diagnosis Active 2015-05-13 Nv moria OBSTRUCTIV 22:05:00 l E PULMON CHRONIC Danielle nn DISEASE W OBSTRUCTIV ACU E PULMON DISEASE W ACU Active [facility] ACUTE Diagnosis Active 2015-07-21 Mem oria RESPIRATOR 11:54:00 l Y FAILURE, ACUTE Danielle nn UNSP W RESPIRATOR HYPOXI Y FAILURE, UNSP W HYPOXI Active [facility] Cellulitis Problem Resolve 2018-06-18 Memoria (disorder) d 11:05:32 l [place] Cellulitis (disorder) Resolved Problem 06/18/2018 [facility] History of Problem Resolve 2018-06-18 Memoria - d 11:05:32 l musculoske History Her ruiz letal of - disease musculoske (context-d letal ependent disease category) (context-d ependent category) Resolved Problem 06/18/2018 [facility] Hypothyroi Problem Resolve 2018-06-18 Memoria dism d 11:05:32 l (disorder) Shravan n Hypothyroi dism (disorder) Resolved Problem 06/18/2018 [facility] COPD Problem Resolve 2012-09-14 Xiang bethany d 21:37:11 l COPD Damien Resolved Problem 09/14/2012 [facility] Hypertensi Problem Active 2018-06-18 M emoria ve 11:05:32 l disorder, Damien systemic Hypertensi arterial ve (disorder) disorder, systemic arterial (disorder) Active Problem 06/18/2018 [facility] Peripheral Problem Active 2018-06-18 M emoria arterial 11:05:32 l occlusive Damien disease Peripheral (disorder) arterial occlusive disease (disorder) Active Problem 06/18/2018 [facility], [facility] Poor Problem Active 2018-06-18 Memor ia short-term 11:05:32 l memory Poor Damien (finding) short-term memory (finding) Active Problem 06/18/2018 [facility] Smoker Problem Active 2018-06-18 Memor ia (finding) 11:05:32 l Smoker Damien (finding) Active Problem 06/18/2018 [facility] Cellulitis Diagnosis Active 2017-02-18 Memoria of right 03:46:09 l lower limb Shravan n Cellulitis of right lower limb Active Diagnosis 02/18/2017 W [facility] Infectious Disease RESPIRATOR Diagnosis Active 2012-09-12 Memoria Y ABNORM 13:24:00 l NEC [place] RESPIRATOR Y ABNORM NEC Active [facility] CHR AIRWAY Diagnosis Active 2014-05-02 Memoria OBSTRUCT 16:47:00 l NEC CHR Damien AIRWAY OBSTRUCT NEC Active [facility] Erysipelas Problem Resolve 2013-032018-06-182018-06-18 Memoria (disorder) d 2 11:05:32 11:05:32 l 00:00: [place] Erysipelas 00 (disorder) Resolved 02/18/2014 Problem 06/18/2018 Data migrated from [facility] on 09/26/14. [facility], [facility] History of Past Illness Condition Condition Condition Status Onset Resolution Last Treating Co mments Source Name Details Category Date Date Treatment Clinician Date RASH AND Condition Inactiv 2014-07-23 2014-07-23 Memoria OTHER e 1- 07:58:30 07:58:30 l NONSPECIFI RASH AND 00:00: He rmann C SKIN OTHER 00 ERUPTION NONSPECIFI C SKIN ERUPTION Inactive 03/14/2014 [facility] ERYSIPELAS Condition Inactiv 2013-032014-07-23 2014-07-23 Memoria e 04-21 07:58:30 07:58:30 l 00:00: Damien ERYSIPELAS 00 Inactive 02/18/2014 Condition 5 [facility] SEBORRHEIC Condition Inactiv 2014-07-23 2014-07-23 Memoria KERATOSIS e 12-03 07:58:30 07:58:30 l 00:00: [place] SEBORRHEIC 00 KERATOSIS Inactive 12/03/2013 [facility] SUPERIOR Condition Inactiv 2014-07-23 2014-07-23 Memoria GLENOID e 11-27 07:58:30 07:58:30 l LABRUM SUPERIOR 00:00: Shravan n LESIONS GLENOID 00 (SLAP) LABRUM LESIONS (SLAP) Inactive 11/27/2013 [facility] ROTATOR Condition Inactiv 2014-07-23 2014-07-23 Memoria CUFF TEAR e 11-27 07:58:30 07:58:30 l ROTATOR 00:00: [place] CUFF TEAR 00 Inactive 11/27/2013 [facility] SHOULDER Condition Inactiv 2014-07-23 2014-07-23 Memoria PAIN, LEFT e 11-26 07:58:30 07:58:30 l SHOULDER 00:00: Shravan n PAIN, LEFT 00 Inactive 11/26/2013 [facility] NEOPLASM, Condition Inactiv 2013-2014-07-23 2014-07-23 Memoria SKIN, e 16 07:58:30 07:58:30 l UNCERTAIN 00:00: Damien BEHAVIOR NEOPLASM, 00 SKIN, UNCERTAIN BEHAVIOR Inactive 11/26/2013 [facility] Allergies, Adverse Reactions, Alerts Allergy Allergy Status Severity Reaction(s) Onset Inactive Treating Comm ents Source Name Type Date Date Clinician cephalex DA Active U 2019-03 [facility] in 0-21 Clear 00:00: Fowler 00 [facility] N.K.D.A. N.K.D.A. Active Info Not Xiang bethany Available 3-21 l 00:00: [place] 00 cephalex cephalex Active Memori a in<sup>2 in<sup>2 1-09 l , 3, , 3, 06:00: [place] 4</sup> 4</sup> 00 cephalex cephalex Active Memori a in<sup>1 in<sup>1 1-02 l , , 06:00: Damien 2</sup> 2</sup> 00 KEFLEX KEFLEX Active Memoria 1-02 l 00:00: [place] 00 sulfa sulfa Active Moderate Memoria drugs<arboleda drugs<arboleda l p>1</sup p>1</sup Shravan n > > Bactrim Bactrim Active Memoria l Damien nka nka Active Memoria l Damien sulfa sulfa Active Moderate Memoria drugs<arboleda drugs<arboleda l p>3</sup p>3</sup Shravan n > > sulfa sulfa Active Moderate Memoria drugs<arboleda drugs<arboleda l p>4</sup p>4</sup Shravan n > > Social History Social Habit Start Date Stop Date Quantity Comments Source Social History 2016-05-18 2016-05-18 Meeta linton 01:51:07 01:51:07 Medications Ordered Filled Start Stop Current Ordering Indication Dosage Frequency Signature Comments Components Source Medication Medication Date Date Medication? Clinician (SIG) Name Name rivastigmin Yes See Memori a e 1.5 mg 4-16 Instructio l oral 12:14: ns, # 180 Damien capsule 18 unknown unit, Refill(s) 3, TAKE 1 CAPSULE BY MOUTH TWICE DAILY, Pharmacy: [facility] [id number] primidone Yes See Memoria 50 mg oral 3-26 Instructio l tablet 18:35: ns, 4 tabs Danielle nn 00 twice a day, # 720 tab, 3 Refill(s), Pharmacy: [facility] Megestrol Yes See Memoria Acetate 40 3-02 Instructio l MG/ML Oral 21:38: ns, # 600 He rmann Suspension 36 mL, SHAKE WELL AND TAKE 20 ML BY MOUTH EVERY DAY, Pharmacy: [facility] [id number] rivastigmin No 1.5 mg = 1 Memoria e 1.5 mg 2-12 cap, PO, l oral 22:23: BID, # 60 [place] capsule 00 cap, 3 Refill(s), Pharmacy: [facility] [id number] diazepam 2 Yes 2 mg = 1 Mem oria mg oral 1-31 tab, PO, l tablet 18:07: Daily, PRN Danielle nn 00 Tremor, X 30 day, # 30 tab, 3 Refill(s) clopidogrel 2016-03 Yes NELL 1 tab(s) M emoria - JIMY l 03:46: potassium 2016-03 Yes NELL 1 tab Memori a - JIMY l 03:46: prednisolon 2016-03 Yes NELL 5 mL Memor ia e 04-21 JIMY l 03:46: levofloxaci 2016-03 Yes NELL 1 tab(s) M emoria n - JIMY l 03:46: Furosemide 2016-03 Yes NELL 1 tab Memor ia - JIMY l 03:46: Enoxaparin No Notes: Memor ia -19 (Same as: l 14:00: Lovenox) Miralax No Notes: Memoria -18 Dissolve l 18:31: in 8 oz of water or juice. (Same as: Miralax) Dulcolax No Notes: Memoria Laxative -18 (Same As: l 18:16: Dulcolax, Bisco-Lax) metoprolol No Notes: Memor ia tartrate 4-18 (Same as: l 17:00: Lopressor) metoprolol Yes 50 mg = 1 Me moria tartrate 50 4-17 tab, PO, l mg oral 17:15: BID, # 60 Danielle nn tablet 00 tab, 0 Refill(s) Nystatin Yes 500,000 Memori a [id number] 4-17 unit = 5 l UNT/ML Oral 17:15: mL, Shravan n Suspension 00 S&SPIT, QID, X 7 day, # 140 mL, 0 Refill(s) amLODIPine Yes 10 mg = 1 Me moria 10 mg oral 4-17 tab, PO, l tablet 17:15: Daily, # [place] 00 30 tab, 0 Refill(s) metoprolol No Notes: Memor ia tartrate 4-16 (Same as: l 02:00: Lopressor) Levaquin No 500 mg, 1 Xiang bethany 4-15 tab, l 20:00: Route: PO, Drug form: TAB, [id number], Dosing Weight 71.682, kg, Start date: 06/25/16 [...] Memoria 4-15 (Same as: l 14:00: MaxEPA, Damien 00 [place] 3 fish oil ) Non-Formul stefania Drug Vitamin C No Notes: Memori a 4-15 (Same as: l 14:00: Vitamin C) [place] 00 Spiriva No Notes: Memoria 4-15 (Same As: [...] e 4-14 Tablet l 21:30: should not Damien be chewed or crushed. (Same as: Protonix) [...] 4-13 acetaminop l 02:19: hen = 4000 Damien 00 mg/day (4 gm/day). (Same as: Tylenol) Levofloxaci No Notes: Xiang bethany n 4-13 (Same l 02:00: as:Levaqui [place] n) Levofloxaci No Notes: Xiang bethany n 4-13 (Same l 01:00: as:Levaqui Damien 00 n) Hydralazine No Notes: Xiang bethany 4-12 (Same as: l 23:32: Apresoline [place] 00 ) Push over 5 minutes sodium No 1,000 mL, Memori a chloride 12 Rate: 50 l 0.9% 1000 23:30: ml/hr, Shravan n ml INJ 00 Infuse 1,000 mL over: 20 hr, Route: IV, Dosing Weight 71.682 kg, Total Volume: 1,000, Start date: 06/22/16 18:30:00 CDT, Duration: 30 day, Stop date: 07/22/16 18:29:00 CDT Vancomycin No Notes: M emoria -12 MEDICATION l 15:00: WASTE [place] Product Size: 1000 mg Product Wasted: _0__ [...] a 0.833 MG/ML -12 (Same as: l 07:00: Duoneb) Ipratropium 00 Wallace 0.167 MG/ML Inhalant Solution Nystatin No 500,000 Memori a [id number] 4-12 unit, 5 l UNT/ML Oral 05:00: [...] ia 4-12 (Same as: l 04:00: Lovenox) Damien 00 Albuterol No 2.49 mg, Xiang bethany 0.83 MG/ML 12 Route: l Inhalant 03:54: NEB, PRN, Herm martha Solution 00 Dosing Weight 71.682, kg, PRN Respirator y Protocol, Start date: 06/21/16 22:54:00 CDT, Duration: 30 day, Stop date: 07/21/16 22:53:00 CDT Albuterol No 3 mL, Memoria 0.833 MG/ML 06-22 Route: l / 03:54: NEB, Damien Ipratropium 00 Dosing Wallace Weight 0.167 MG/ML 71.682, Inhalant kg, PRN, Solution PRN Respirator y Protocol, Start date: 06/21/16 22:54:00 CDT, Duration: 30 day, Stop date: 07/21/16 22:53:00 CDT Guaifenesin No Notes: Xiang bethany 4-12 (Same as: l 03:54: Robitussin Damien 00 ) Sodium No 1,000 mL, Memori a Chloride 12 Rate: 125 l 0.154 03:51: ml/hr, [place] MEQ/ML 00 Infuse Injectable over: 8 Solution hr, Route: IV, Dosing Weight 71.682 kg, Total Volume: 1,000, Start date: 06/21/16 22:51:00 CDT, Duration: 30 day, Stop date: 07/21/16 22:50:00 CDT Saline No 10 ml, Memoria Flush 0.9% 06-22 Route: l 03:51: IVP, Drug Damien 00 Form: INJ, Dosing Weight 71.682, kg, PRN, PRN Line Flush, Start date: 06/21/16 22:51:00 CDT, Duration: 30 day, Stop date: 07/21/16 22:50:00 CDT Acetaminoph 2017- No 100.4 F, M emoria en 4-12 Start l 03:51: date: [place] 00 06/21/16 22:51:00 CDT, Duration: 30 day, Stop date: 07/21/16 22:50:00 CDT Ondansetron 2016-0 No Notes: Xiang bethany 4-12 (Same as: l 03:51: Zofran) MEDICATION WASTE Product Size: 4 mg Product Wasted: ___ mg Acetaminoph No 1 tab, Xiang bethany en 325 MG / 4-12 Route: PO, l Hydrocodone 03:51: Drug Form: [place] Bitartrate 00 TAB, 5 MG Oral Dosing [...] day, Stop date: 07/21/16 22:50:00 CDT vancomycin 2016-0 No Notes: M emoria + sodium 4-12 MEDICATION l chloride 03:00: WASTE Herm martha 0.9% 500 mL 00 Product INJ (for IV Size: set) 500 mL 1750 mg Product Wasted: __0_ mg Furosemide 2017-0 Yes PO, 0 Memori a 20 MG Oral 4-12 Refill(s) l Tablet 02:26: Damien 00 pantoprazol 2017 Yes 40 mg = 1 M emoria e 40 mg 4-12 tab, PO, l oral 02:22: Daily, 0 [place] enteric 00 Refill(s) coated tablet Symbicort Yes 2 puff, Memor ia 160/4.5 06-22 INHALATION l inhalation 02:21: , BID, 0 Her ruiz aerosol 00 Refill(s) with adapter Vancomycin No 1,000 mg, Me moria 06-22 Route: l 01:24: IVPB, Drug form: INJ, ONCE, Dosing Weight 69.091, kg, Priority: STAT, Start date: 06/21/16 20:24:00 CDT, Stop date: 06/21/16 20:24:00 CDT, TIME CRITICAL MEDICATION Ciprofloxac No 400 mg, Mem oria in 06-22 Route: l 01:24: IVPB, Damien 00 ONCE, Dosing Weight 69.091, kg, Priority: STAT, Start date: 06/21/16 20:24:00 CDT, Stop date: 06/21/16 20:24:00 CDT Albuterol No Notes: Memori a 0.833 MG/ML 06-22 (Same as: :12: Duoneb) Ipratropium 00 Wallace 0.167 MG/ML Inhalant Solution [DuoNeb] Acetaminoph No [...] Sulfate) Diphenhydra No Notes: Xiang bethany mine 11 (Same as: l 20:38: Benadryl) Metoclopram No Notes: Xiang bethany trevor 11 (Same as: l 20:38: Reglan) Sodium No 1,000 mL, Memori a Chloride 11 1000 l 0.154 20:38: ml/hr, [place] MEQ/ML 00 Infuse Injectable Over: 1 Solution hr, Route: IV, 1,000, Drug form: INJ, ONCE, Priority: STAT, Dosing Weight 69.091 kg, Start date: 06/21/16 15:38:00 CDT, Duration: 1 doses or times, Stop date: 06/21/16 15:38:00 CDT Saline No Notes: Memoria Flush 0.9% 06-21 (Same as: l 19:29: BD [place] 00 Posiflush) Doxycycline No Notes: Xiang bethany 05-18 (Same as: l 21:00: Vibramycin ) No milk/antac ids/iron. Ciprofloxac No Notes: May Memoria in -08 interfere l 21:00: w/enteral [place] 00 feedings - Take 1 hr before or 2 hrs after antacids, dairy pdt & minerals. On empty stomach. minocycline Yes 100 mg = 1 Memoria 100 mg oral 3-08 cap, PO, l capsule 20:20: Q12H, X 30 Herm day, # 60 cap, 0 Refill(s), Pharmacy: [facility] [id number] ciprofloxac Yes 500 mg = 1 Memoria in 500 mg 3-08 tab, PO, l oral tablet 20:20: Q12H, X 30 [place] 00 day, # 60 tab, 0 Refill(s), Pharmacy: [facility] [id number] Nicotine No Notes: Memoria 3-08 (Same as: l 15:00: Habitrol) Damien 00 "Remove old patch before applicatio n of new patch" WASTE: F/P - P Waste Black; E - P Waste Black Protonix No Notes: Memoria 3-08 Tablet l 13:30: should not [place] 00 be chewed or crushed. (Same as: Protonix) vancomycin No 2001 mg: Me moria + sodium 308 infuse l chloride 12:30: over 2.5 Danielle nn 0.9% INJ 00 hours 250 mL MEDICATION WASTE Product Size: 1000 mg Product Wasted: _0__ mg Cleocin HCl No 600 mg, 50 Memoria 3-08 mL, Route: l 03:30: IVPB, Drug [place] 00 form: INJ, ABXQ8H, Start date: 05/17/16 21:30:00 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, Duration: 30 day, Stop date: 06/16/16 13:30:00 CDT atorvastati No Notes: Xiang bethany n 08 (Same As: l 03:00: Lipitor) Damien 00 Symbicort No Notes: Memori a 160/4.5 08 (Same as: l inhalation 02:00: Symbicort) H ermann aerosol 00 WASTE: with Aerosol - adapter Return to Pharmacy Vitamin C Yes 2,000 mg = Me moria 1000 mg 3-08 2 tab, PO, l oral tablet 01:56: Daily, # He rmann 00 30 tab, 0 Refill(s) Spiriva Yes 18 Memoria 3-08 microgram, l 01:56: INHALATION [place] 00 , Daily, # 30 ea, 0 Refill(s) vitamin E Yes 400 Memoria 400 intl 3-08 IntlUnit = l units oral 01:56: 1 cap, PO, H ermann capsule 00 Daily, # 100 cap, 0 Refill(s) predniSONE Yes See Memoria 50 mg oral 3-08 Instructio l tablet 01:56: ns, PRN Damien 00 Allergies, 1 tab PO PRN asthma attacks., 0 Refill(s) clopidogrel Yes 75 mg = 1 M emoria 75 mg oral 3-08 tab, PO, l tablet 01:56: Daily, # Damien 00 30 tab, 0 Refill(s) levofloxaci No 500 mg = 1 Memoria n 500 mg 3-08 tab, PO, l oral tablet 01:56: Daily, # He rmann 00 10 tab, 0 Refill(s) cholecalcif Yes 1,000 Memor ia adin 1000 3-08 IntlUnit = l intl units 01:56: 1 [...] 23:00: Mysoline) Enoxaparin No Notes: Memor ia 3- (Same as: l 23:00: Lovenox) metoprolol No Notes: Memor ia tartrate 05-17 (Same as: l 22:42: Lopressor) Ondansetron No Notes: Xiang bethany -07 (Same as: l 22:41: Zofran) MEDICATION WASTE Product Size: 4 mg Product Wasted: _0__ mg Simethicone No Notes: Xiang bethany 3-07 (Same as: l 22:41: Mylicon) Bisacodyl No Notes: Memori a 3-07 (Same As: l 22:41: Dulcolax, Bisco-Lax) Acetaminoph No Notes: Do M emoria en - not exceed l 22:41: 4 gm/day. (Same [...] / 3-07 (Same as: l Hydrocodone 22:41: [place] Danielle nn Bitartrate 00 325/5) Do 5 MG Oral not exceed Tablet 4gm/day of [[place] acetaminop 5/325] hen. Acetaminoph No Notes: Do M emoria en 325 MG / 3-07 not exceed l Hydrocodone 22:41: 4gm/day of [place] Bitartrate 00 acetaminop 10 MG Oral hen. Tablet (Same as: [[place] 10/325] 325/10) Lorazepam No Notes: Memori a 3-07 (Same as: l 22:41: Ativan) Morphine No 1 mg, 0.5 Xiang bethany 3-07 mL, Route: l 22:41: IVP, Drug form: SOLN, Q4H, Dosing Weight 74.545, kg, PRN Pain Score 7-10, if unable to take po, Start date: 05/17/16 16:41:00 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, Duration: 30 day, Stop date: 06/16/16 16:40:00 CDT Albuterol No Notes: Memori a 0.833 MG/ML 05-17 (Same as: l 22:41: Duoneb) Ipratropium Wallace 0.167 MG/ML Inhalant Solution Vancomycin No 1,118.175 Me moria 3-07 mg, Route: l 22:39: IVPB, ABXQ8H, Dosing Weight 74.545, kg, TIME CRITICAL MEDICATION , Priority: STAT, Start date: 05/17/16 16:39:00 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, Duration: 30 day, Stop date: 06/16/16 8:39:00 CDT Clindamycin No 600 mg, Mem oria 3-07 Route: l 22:39: IVPB, ABXQ8H, Dosing Weight 74.545, kg, Priority: STAT, Start date: 05/17/16 16:39:00 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, Duration: 30 day, Stop date: 06/16/16 8:39:00 CDT Saline No Notes: Memoria Flush 0.9% 07 (Same as: l 22:39: BD Posiflush) Sodium No 1,000 mL, Memori a Chloride 3-07 Rate: 100 l 0.154 22:39: ml/hr, Damien MEQ/ML Infuse Injectable over: 10 Solution hr, Route: IV, Dosing Weight 74.545 kg, Total Volume: 1,000, Start date: 05/17/16 16:39:00 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, Duration: 30 day, Stop date: 06/16/16 16:38:00 CDT Acetaminoph No 100.4 F, M emoria en 05-17 Start l 22:39: date: Damien 00 05/17/16 16:39:00 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, Duration: 30 day, Stop date: 06/16/16 16:38:00 CDT Clindamycin No 600 mg, 50 Memoria 3-07 mL, Route: l 18:31: IVPB, Drug form: INJ, ONCE, Dosing Weight 74.545, kg, Priority: STAT, Start date: 05/17/16 12:31:00 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, Stop date: 05/17/16 12:31:00 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 Symbicort Yes 2 puff, Memor ia 160/4.5 [...] predniSONE Yes See Memoria 10 mg oral -09 Special l tablet 15:35: Instructio Danielle nn 00 ns, PO, Daily, 12 day regimen: Days 1-4 - 30 mg (3 tabs) daily Days 5-8 - 20 mg (2 tabs) daily Days 9-12 - 10 mg (1 tab) daily, X 12 day, # 24 tab, 0 Refill(s) methylPREDN No Notes: Xiang bethany ISolone 07-18 (Same l SODium 02:00: as:Solu-ME Danielle nn SUCCinate 00 DROL, A-Methapre d) Albuterol No Notes: Memori a 0.833 MG/ML 07-17 (Same as: l / 19:00: Duoneb) Damien Ipratropium 00 Wallace 0.167 MG/ML Inhalant Solution [DuoNeb] Acetylcyste No 200 mg, 1 M emoria ine 200 5-07 mL, Route: l MG/ML 19:00: NEB, Drug Damien Inhalant 00 Form: Solution SOLN, Dosing Weight 68.182, kg, RQ6H, Start date: 07/18/15 14:00:00 CDT, Duration: 30 day, Stop date: 08/17/15 8:00:00 CDT Symbicort No Notes: Memori a 160/4.5 07-17 (Same as: l inhalation 16:42: Symbicort) H ermann aerosol 00 WASTE: with Aerosol - adapter Return to Pharmacy Spiriva No Notes: Memoria 07-17 (Same As: l 16:42: Spiriva) [place] 00 remove No Notes: Memoria patch 07-17 WASTE: F/P l 02:00: - P Waste Damien 00 Black; E - P Waste Black Ipratropium No Notes: SEE Memoria Wallace 0.2 5-05 RT l MG/ML 16:00: DOCUMENTAT Shravan n Inhalant 00 ION (Same Solution as:Atroven t) Levalbutero No Notes: SEE Memoria l 5-05 RT l 16:00: DOCUMENTAT Damien 00 ION (Same as:Xopenex ) Non-Formul stefania Nicotine No Notes: Memoria -05 (Same as: l 14:00: Habitrol) Damien WASTE: F/P - P Waste Black; E - P Waste Black Ipratropium No Notes: SEE Memoria Wallace 0.2 5-05 RT l MG/ML 12:00: DOCUMENTAT Shravan n Inhalant 00 ION (Same Solution as:Atroven t) Acetylcyste No 200 mg, 1 M emoria ine 200 5-05 mL, Route: l MG/ML 12:00: NEB, Drug [place] Inhalant 00 Form: Solution SOLN, Dosing Weight 68.182, kg, RQID, Start date: 07/16/15 7:00:00 CDT, Duration: 30 day, Stop date: 08/14/15 19:00:00 CDT methylPREDN No Notes: Xiang bethany ISolone 5-05 (Same l SODium 11:00: as:Solu-ME Danielle nn SUCCinate 00 DROL, A-Methapre d) Albuterol No Notes: Memori a 0.833 MG/ML 5-05 (Same as: l / 07:00: Duoneb) Damien Ipratropium 00 Wallace 0.167 MG/ML Inhalant Solution Levalbutero No Notes: SEE Memoria l 5-05 RT l 07:00: DOCUMENTAT [place] 00 ION (Same as:Xopenex ) Non-Formul stefania methylPREDN No Notes: Xiang bethany ISolone 5-05 (Same l 03:30: as:Solu-ME [place] 00 DROL, A-Methapre d) methylPREDN No Notes: Xiang bethany ISolone 5-05 (Same l SODium 03:00: as:Solu-ME Danielle nn SUCCinate 00 DROL, A-Methapre d) atorvastati No Notes: Xiang bethany n 5-05 (Same As: l 03:00: Lipitor) [place] 00 Plavix No Notes: Memoria 5-05 (Same As: l 03:00: Plavix) Damien 00 Levaquin No Notes: Memoria 5-05 (Same l 03:00: as:Levaqui [place] 00 n) Ativan No Notes: Memoria 5-05 (Same as: l 02:46: Ativan) [place] Albuterol No Notes: SEE Me moria 0.83 MG/ML 5-05 RT l Inhalant 02:13: DOCUMENTAT Her ruiz Solution 00 ION (Same as: Proventil) Enoxaparin No Notes: Memor ia 5-05 (Same as: l 02:00: Lovenox) [place] Albuterol No Notes: Memori a 0.833 MG/ML 5-05 (Same as: l 01:16: Duoneb) [place] Ipratropium 00 Wallace 0.167 MG/ML Inhalant Solution Sodium No 25 mL, Memoria Chloride -04 Route: IV, l 0.9% IV 23:14: Start [place] 00 date: 07/15/15 18:14:00 CDT, Duration: 30 day, Stop date: 08/14/15 18:13:00 CDT, PRN Line Flush BD Normal No Notes: Memori a Saline -04 (Same as: l Flush 23:14: BD [place] 00 Posiflush) Ipratropium No 500 Memori a 5-04 microgram, l 23:11: Route: Damien 00 NEB, ONCE, Dosing Weight 68.182, kg, Start date: 07/15/15 18:11:00 CDT, Stop date: 07/15/15 18:11:00 CDT Xopenex No Notes: Memoria 5-04 Same as: l 23:11: Xopenex Non-Formul stefania High Concentrat ed (0.5ml) SEE RT DOCUMENTAT ION Lorazepam No Notes: Memori a 5-04 (Same as: l 23:10: Ativan) Sodium No 1,000 mL, Memori a Chloride -04 1,000 l 0.154 23:05: ml/hr, MEQ/ML 00 Infuse Injectable Over: 1 Solution hr, Route: IV, 1,000, Drug form: INJ, ONCE, Priority: STAT, Dosing Weight 68.182 kg, Start date: 07/15/15 18:05:00 CDT, Duration: 1 doses or times, Stop date: 07/15/15 18:05:00 CDT Magnesium No Notes: Memori a Sulfate - WASTE: F/P l 23:05: - Sink; E [place] - [facility] Albuterol No Notes: Memori a 0.833 MG/ML -04 (Same as: l / 23:05: Duoneb) Ipratropium 00 Wallace 0.167 MG/ML Inhalant Solution [DuoNeb] Brovana No Notes: SEE Xiang bethany 5-04 RT l 13:00: DOCUMENTAT Damien 00 ION Same as Brorichellea atorezekieltaradha No Notes: Xiang bethany n 5-04 (Same As: l 02:00: Lipitor) Plavix No Notes: Memoria 5-04 (Same As: l 02:00: Plavix) Levofloxaci Yes 750 mg = 1 Memoria n 750 MG 5-03 tab, PO, l Oral Tablet 20:01: Q24H, X 10 [place] [Levaquin] 00 day, # 10 tab, 0 Refill(s) predniSONE Yes 40 mg = 2 Me moria 20 mg oral 5-03 tab, PO, l tablet 20:01: Daily, X 5 Danielle nn day, # 10 tab, 0 Refill(s) Brovana No Notes: SEE Xiang bethany 5-03 RT l 13:00: DOCUMENTAT [place] ION Same as Brovana Protonix No Notes: Memoria 5-03 Tablet l 12:30: should not be chewed or crushed. (Same as: Protonix) Albuterol No Notes: Memori a 0.833 MG/ML - (Same as: l / 07:00: Duoneb) Ipratropium 00 Wallace 0.167 MG/ML Inhalant Solution Solu-Medrol No Notes: Xiang bethany 5-03 (Same l 07:00: as:Solu-ME Damien 00 DROL, A-Methapre d) Melatonin No Notes: Memori a 5-03 (Same as: l 05:40: Melatonin) Acetaminoph No Notes: Do M emoria en 325 MG / 5- not exceed l Hydrocodone 05:39: 4gm/day of [place] Bitartrate 00 acetaminop 10 MG Oral hen. Tablet (Same as: [Exeter Exeter 10/325] 325/10) Hydralazine No Notes: Xiang bethayn 5-03 (Same as: l 05:39: Apresoline ) Push over 5 minutes Acetaminoph No Notes: Do M emoria en 5-03 not exceed l 05:39: 4 gm/day. Damien 00 (Same as: Tylenol) Tessalon No Notes: Memoria Perles 5-03 (Same As: l 05:39: Tessalon Perles) "Do Not Crush" Morphine No Notes: Memoria 5-03 (Same l 05:39: as:MORPhin e Sulfate) Loratadine No Notes: 1 Mem oria 5-03 hr before l 05:39: meals (Same as: Claritin) Bisacodyl No Notes: Memori a 5-03 (Same As: l 05:39: Dulcolax, Damien 00 Bisco-Lax) Ondansetron No Notes: Xiang bethany 5-03 (Same as: l 05:39: Zofran) MEDICATION WASTE Product Size: 4 mg Product Wasted: _0__ mg Simethicone No Notes: Xiang bethany -03 (Same as: l 05:39: Mylicon) Lorazepam No Notes: Memori a 5-03 (Same as: l 05:39: Ativan) Flagyl No Notes: Memoria 5-03 (Same as: l 05:32: Flagyl) Avoid alcohol. Levaquin No Notes: Memoria 5-03 (Same l 01:00: as:Levaqui n) Enoxaparin No Notes: Memor ia 5-03 (Same as: l 01:00: Lovenox) Vitamin C Yes 500 mg, Memor ia 5-03 PO, Daily l 00:53: Damien 00 Albuterol No Notes: SEE Me moria 0.83 MG/ML -03 RT l Inhalant 00:53: DOCUMENTAT Her ruiz Solution 00 ION (Same as: Proventil) arformotero Yes 15 Memori a l 0.0075 5-03 microgram l MG/ML 00:53: = 2 mL, Damien Inhalant 00 NEB, BID Solution [Brovana] Saline No Notes: Memoria Flush 0.9% 03 (Same as: l 00:47: BD Posiflush) Sodium 2016-0 No 1,000 mL, Memori a Chloride 5-03 Rate: 75 l 0.154 00:47: ml/hr, Damien MEQ/ML 00 Infuse Injectable over: 13.3 Solution hr, Route: IV, Dosing Weight 71.932 kg, Total Volume: 1,000, Start date: 07/13/15 19:47:00 CDT, Duration: 30 day, Stop date: 08/12/15 19:46:00 CDT Morphine No Notes: Memoria 5-03 (Same l 00:47: as:MORPhin Damien 00 e Sulfate) Acetaminoph No Notes: Xiang ebthany en 325 MG / 5-03 (Same as: l Hydrocodone 00:47: Exeter Danielle nn Bitartrate 00 325/5) Do 5 MG Oral not exceed Tablet 4gm/day of acetaminop hen. Docusate No Notes: Memoria 5-03 (Same as: l 00:47: Colace) Ondansetron No Notes: Xiang bethany 5-03 (Same as: l 00:47: Zofran) MEDICATION WASTE Product Size: 4 mg Product Wasted: _0__ mg Roflumilast No 0 Memori a 0.5 MG Oral 5-03 Refill(s) l Tablet 00:38: [place] [Daliresp] 00 Albuterol No 0 Memoria 0.833 MG/ML 5-03 Refill(s) l / 00:38: Damien Ipratropium 00 Wallace 0.167 MG/ML Inhalant Solution atorvastati Yes 10 mg = 1 M emoria n 10 mg 5-03 tab, PO, l oral tablet 00:38: Bedtime, 0 Refill(s) Sodium No 25 mL, Memoria Chloride 5-02 Route: IV, l 0.9% IV 20:59: Start Damien 00 date: 07/13/15 15:59:00 CDT, Duration: 30 day, Stop date: 08/12/15 15:58:00 CDT, PRN Line Flush Albuterol No Notes: Memori a 0.833 MG/ML 5-02 (Same as: l / 20:50: Duoneb) [place] Ipratropium 00 Wallace 0.167 MG/ML Inhalant Solution methylPREDN No Notes: Xiang bethany ISolone 5- (Same l SODium 20:50: as:Solu-ME Danielle nn SUCCinate 00 DROL, A-Methapre d) Saline No Notes: Memoria Flush 0.9% - (Same as: l 20:50: BD Damien 00 Posiflush) Doxycycline No 100 mg, Mem [...] Albuterol No Notes: Memori a 0.833 MG/ML 05-05 (Same as: l / 01:00: Duoneb) Damien Ipratropium 00 Wallace 0.167 MG/ML Inhalant Solution [DuoNeb] BD Normal No Notes: Memori a Saline - (Same as: l Flush 23:43: BD [place] Posiflush) Sodium No IV, 0 Memoria Chloride 2-22 ml/hr, l 0.9% IV 23:42: PRN, PRN Shravan n 00 Line Flush, Start date: 05/04/15 17:42:00, Duration: 30, 25 ml Levaquin No Notes: Memoria 2-22 (Same l 23:00: as:Levaqui [place] 00 n) Tessalon No Notes: Memoria Perles 2-22 (Same As: l 22:18: Tessalon Perles) "Do Not Crush" Robitussin- No Notes: Xiang bethany AC oral 2-22 (Same As: l syrup 22:18: Robitussin Shravan n 00 AC) Unknown Yes 2 puffs, Memori a Home 2-22 INHALATION l Medication 21:24: , BID, Danielle nn experiment al drug no name, Refill(s) 0 AUGMENTIN No 1 tablet Xiang bethany 875-125 MG 1-02 twice l TABS 00:00: daily for [place] 14 days PREDNISONE No 4 po daily [...] twice l TABS 00:00: daily for Damien 10 days DOXYCYCLINE 2013-03 No 1 tablet Me moria HYCLATE 100 2-09 twice l MG TABS 00:00: daily for Danielle nn 10 days SYMBICORT Yes Two puffs Mem oria 160-4.5 9-16 twice a l MCG/ACT 00:00: day. AER ALENDRONATE Yes 1 po Memori a SODIUM [...] 5000 UNIT 9-16 l CAPS 00:00: TESTOSTERON 2013- No inject .5 M emoria E CYPIONATE 9-16 mL every l OIL 00:00: 10 days ALBUTEROL Yes use as Memori a SULFATE 9-16 needed l NEBU 00:00: ARMOUR 0 Yes 1 po qd Memoria THYROID 60 9-16 l MG TABS 00:00: dexamethaso 0 No 10 mg, 1 Me moria ne 3-07 mL, Route: l 18:00: IV, Drug form: INJ, Q6H, Start date: 05/17/13 12:00:00, Duration: 30 day, Stop date: 06/16/13 6:00:00 ciprofloxac Yes 500 mg = 1 Memoria in 500 mg 3-07 tab, PO, l oral tablet 16:06: Q12H, # 14 tab, 0 Refill(s) methylPREDN No 40 mg, Xiang bethany ISolone 307 Route: l SODium 00:00: IVP, Q6H, Shravan n SUCCinate 00 Dosing Weight 80.909, kg, Priority: Routine, Start date: 05/16/13 18:00:00, Duration: 30 day, Stop date: 06/15/13 12:00:00 Acetylcyste No 2 mL, Memor ia ine 100 306 Route: l MG/ML 22:00: NEB, Drug [place] Inhalant 00 Form: Solution SOLN, Dosing Weight 80.909, kg, Q8H, Start date: 05/16/13 16:00:00, Duration: 30 day, Stop date: 06/15/13 8:00:00 acetylcyste No 200 mg, 1 M emoria ine 3-06 mL, Route: l 21:00: NEB, Drug Damien 00 Form: SOLN, RQ8H, Start date: 05/16/13 15:00:00, Duration: 30 day, Stop date: 06/15/13 7:00:00 Albuterol 0 No 3 ml, Memoria 0.833 MG/ML 306 Route: l / 21:00: INHALATION Damien Ipratropium 00 , Drug Wallace Form: 0.167 MG/ML SOLN, Inhalant Dosing Solution Weight [DuoNeb] 80.909, kg, RQ4H, Start date: 05/16/13 15:00:00, Duration: 30 day, Stop date: 06/15/13 11:00:00(S lizabeth as: Duoneb) Cipro 2014-0 No 400 mg, Memoria 3-06 200 mL, l 19:00: Route: Damien 00 IVPB, Drug form: INJ, [id number], Dosing Weight 80.909, kg, Start date: 05/16/13 13:00:00, Duration: 30 day, Stop date: 06/15/13 1:00:00Do not refrigerat e dexamethaso 2013-0 No 4 mg, 1 Mem oria ne 3-06 mL, Route: l 18:21: IV, Drug form: INJ, Q6H, Start date: 05/16/13 12:21:00, Duration: 30 day, Stop date: 06/15/13 12:00:00Co ncentratio n: 4mg/ml Sodium 2013-0 No 25 mL, Memoria Chloride 3-06 Route: IV, l 0.9% IV 18:18: Start Damien date: 05/16/13 12:18:00, Duration: 30 day, Stop date: 06/15/13 13:17:00, PRN Line Flush BD Normal 2014-0 No 10 mL, Memori a Saline 3-06 Route: IV, l Flush 18:17: Drug Form: Shravan n 00 INJ, PRN, PRN Line Flush, Start date: 05/16/13 12:17:00, Duration: 30 day, Stop date: 06/15/13 13:16:00(S lizabeth as: BD Posiflush) Robitussin- 2013-0 No 5 ml, Memor ia AC oral 3-06 Route: PO, l syrup 18:04: Drug Form: Shravan n 00 SYRP, Dosing Weight 80.909, kg, Q4H, PRN Cough/Nii estion, Start date: 05/16/13 12:04:00, Duration: 30 day, Stop date: 06/15/13 12:03:00(calos gilliam ifenesin 20-200mg/1 0ml LIQ) (Same As: Keanuitussin AC) predniSONE Yes Pascual Brunner 20 mg, 1 Memoria 20 mg oral 09-12 tab, PO, l tablet 15:49: BID, 14 Damien 54 tab, Substituti on Allowed, TAB DuoNeb Yes Pascual Brunner 3 ml, Memor ia inhalation 09-12 INHALATION l solution 15:49: , Q4H, 120 Her ruiz 47 ea, Substituti on Allowed, Maintenanc e, SOLN DuoNeb No Pascual Brunner 3 ml, Memor ia inhalation 09-11 Route: l solution 20:00: NEB, Drug Herm martha 00 Form: SOLN, Dosing Weight 80.028, kg, RQ4H, Start date: 09/11/12 15:00:00, Duration: 30 day, Stop date: 10/11/12 11:00:00 albuterol-i Yes 3 ml, Memor ia pratropium 09-11 INHALATION l 2.5-0.5 mg 18:07: , QID, 30 He rmann inhalation 42 ea, solution Substituti on Allowed, Maintenanc e, DAWNA Combivent Yes 2 puff, Memor ia inhalation 09-11 INHALER, l aerosol 18:07: QID, 14 [place] with 00 gm, adapter Substituti on Allowed, [...] mg, 1 Mem oria 20 mg oral 02 tab, PO, l tablet 18:00: BID, [place] 21 Substituti on Allowed, TAB Cipro No Pascual Brunner 400 mg, Xiang bethany -02 200 mL, l 17:00: Route: [place] IVPB, Drug form: INJ, [id number], Dosing Weight 80.028, kg, Start date: 09/11/12 12:00:00, Duration: 30 day, Stop date: 10/11/12 0:00:00 methylPREDN No Pascual Brunner 40 mg, 1 Memoria ISolone 7-02 mL, Route: l SODium 17:00: IVP, Drug [...] Damien BMI Calculated 2017-06-05 18:21:00 Memori al [place] Weight 2017-06-05 18:21:00 [facility] [place] Systolic (mm Hg) 2017-06-05 18:21:00 Xiang rial [place] Diastolic (mm Hg) 2017-06-05 18:21:00 Mem orial [place] Weight 2017-04-24 20:45:00 [facility] [place] BMI Calculated 2017-04-24 20:45:00 Memori al [place] Height 2017-04-24 20:45:00 182.88 cm [facility] [place] Heart Rate 2017-04-24 20:45:00 [facility] [place] Systolic (mm Hg) 2017-04-24 20:45:00 Xiang rial [place] Diastolic (mm Hg) 2017-04-24 20:45:00 Mem orial [place] Heart Rate 2016-06-28 20:00:00 [facility] [place] Respitory Rate 2016-06-28 20:00:00 Memori al [place] Systolic (mm Hg) 2016-06-28 20:00:00 Xiang rial [place]ien Diastolic (mm Hg) 2016-06-28 20:00:00 Mem orial [place] Temperature Oral (F) 2016-06-28 20:00:00 98.5 F [facility] [place] Systolic (mm Hg) 2016-06-28 16:00:00 Xiang rial [place] Diastolic (mm Hg) 2016-06-28 16:00:00 Mem orial [place] Respitory Rate 2016-06-28 16:00:00 Memori al [place] Heart Rate 2016-06-28 16:00:00 [facility] [place] Temperature Oral (F) 2016-06-28 16:00:00 98.1 F [facility] [place] Temperature Oral (F) 2016-06-28 12:00:00 97.5 F [facility] [place] Heart Rate 2016-06-28 12:00:00 [facility] [place] Systolic (mm Hg) 2016-06-28 12:00:00 Xiang rial [place] Diastolic (mm Hg) 2016-06-28 12:00:00 Mem orial [place] Respitory Rate 2016-06-28 12:00:00 Memori al [place] Weight 2016-06-22 03:50:00 [facility] [place] BMI Calculated 2016-06-22 03:50:00 Memori al [place] Height 2016-06-22 03:50:00 182.88 cm [facility] [place] Weight 2016-06-21 18:45:00 [facility] [place] Height 2016-06-21 18:45:00 182.88 cm [facility] [place] BMI Calculated 2016-06-21 18:45:00 Memori al [place] Heart Rate 2016-05-31 20:30:00 [facility] [place] Respitory Rate 2016-05-31 20:30:00 Memori al [place] Temperature Oral (F) 2016-05-31 20:30:00 97.8 F [facility] [place] Weight 2016-05-31 20:30:00 [facility] [place] Diastolic (mm Hg) 2016-05-31 20:30:00 Mem orial [place] Systolic (mm Hg) 2016-05-31 20:30:00 Xiang rial [place] Systolic (mm Hg) 2016-05-18 22:11:00 Xiang rial [place]ien Diastolic (mm Hg) 2016-05-18 22:11:00 Mem orial [place] Heart Rate 2016-05-18 22:11:00 [facility] [place] Respitory Rate 2016-05-18 22:11:00 Memori al [place] Temperature Oral (F) 2016-05-18 22:11:00 98.5 F [facility] [place] Temperature Oral (F) 2016-05-18 17:09:00 98.4 F [facility] [place] Heart Rate 2016-05-18 17:09:00 [facility] [place] Systolic (mm Hg) 2016-05-18 17:09:00 Xiang rial [place] Diastolic (mm Hg) 2016-05-18 17:09:00 Mem orial [place] Respitory Rate 2016-05-18 17:09:00 Memori al [place] Temperature Oral (F) 2016-05-18 14:45:00 98.2 F [facility] [place] Respitory Rate 2016-05-18 14:45:00 Memori al [place] Heart Rate 2016-05-18 14:45:00 [facility] [place] Systolic (mm Hg) 2016-05-18 14:45:00 Xiang rial [place] Diastolic (mm Hg) 2016-05-18 14:45:00 Mem orial [place] Height 2016-05-18 01:33:00 182.88 cm [facility] [place] BMI Calculated 2016-05-18 01:33:00 Memori al [place] Weight 2016-05-18 01:33:00 [facility] [place] BMI Calculated 2016-05-17 17:50:00 Memori al [place] Height 2016-05-17 17:50:00 182.88 cm [facility] [place] Weight 2016-05-17 17:50:00 [facility] [place] Systolic (mm Hg) 2015-07-20 16:05:00 Xiang rial [place] Diastolic (mm Hg) 2015-07-20 16:05:00 Mem orial [place] Respitory Rate 2015-07-20 16:05:00 Memori al [place] Heart Rate 2015-07-20 16:05:00 [facility] [place] Temperature Oral (F) 2015-07-20 16:05:00 98.4 F [facility] [place] Temperature Oral (F) 2015-07-20 12:26:00 98.3 F [facility] [place] Respitory Rate 2015-07-20 12:26:00 Memori al [place] Systolic (mm Hg) 2015-07-20 12:26:00 Xiang rial [place] Diastolic (mm Hg) 2015-07-20 12:26:00 Mem orial [place] Heart Rate 2015-07-20 12:26:00 [facility] [place] Respitory Rate 2015-07-20 09:30:00 Memori al [place] Heart Rate 2015-07-20 09:30:00 [facility] [place] Systolic (mm Hg) 2015-07-20 09:30:00 Xiang rial [place]ien Diastolic (mm Hg) 2015-07-20 09:30:00 Mem orial [place] Temperature Oral (F) 2015-07-20 09:30:00 97.4 F [facility] [place] Height 2015-07-16 02:36:00 203.2 cm [facility] [place] BMI Calculated 2015-07-15 23:02:00 Memori al [place] Height 2015-07-15 23:02:00 175.26 cm [facility] [place] Weight 2015-07-15 23:02:00 [facility] [place] Respitory Rate 2015-07-14 17:47:00 Memori al [place] Heart Rate 2015-07-14 17:47:00 [facility] [place] Systolic (mm Hg) 2015-07-14 17:47:00 Xiang rial [place] Diastolic (mm Hg) 2015-07-14 17:47:00 Mem orial [place] Temperature Oral (F) 2015-07-14 17:47:00 98.6 F [facility] [place] Respitory Rate 2015-07-14 13:00:00 Memori al [place] Systolic (mm Hg) 2015-07-14 13:00:00 Xiang rial [place]ien Diastolic (mm Hg) 2015-07-14 13:00:00 Mem orial [place] Heart Rate 2015-07-14 13:00:00 [facility] [place] Temperature Oral (F) 2015-07-14 13:00:00 98 F [facility] [place] Temperature Oral (F) 2015-07-14 09:15:00 98.2 F [facility] [place] Heart Rate 2015-07-14 09:15:00 [facility] [place] Systolic (mm Hg) 2015-07-14 09:15:00 Xiang rial [place] Diastolic (mm Hg) 2015-07-14 09:15:00 Mem orial [place] Respitory Rate 2015-07-14 09:15:00 Memori al [place] Height 2015-07-14 02:19:00 182.88 cm [facility] [place] Height 2015-07-14 02:13:00 182.88 cm [facility] [place] BMI Calculated 2015-07-13 18:47:00 Memori al [place] Weight 2015-07-13 18:47:00 [facility] [place] Height 2015-07-13 18:47:00 182.88 cm [facility] [place] Heart Rate 2015-05-07 18:43:00 [facility] [place] Temperature Oral (F) 2015-05-07 18:43:00 98 F [facility] [place] Systolic (mm Hg) 2015-05-07 18:43:00 Xiang rial [place] Diastolic (mm Hg) 2015-05-07 18:43:00 Mem orial [place] Respitory Rate 2015-05-07 18:43:00 Memori al [place] Temperature Oral (F) 2015-05-07 14:07:00 98.1 F [facility] [place] Respitory Rate 2015-05-07 14:07:00 Memori al [place] Systolic (mm Hg) 2015-05-07 14:07:00 Xiang rial [place] Diastolic (mm Hg) 2015-05-07 14:07:00 Mem orial [place] Heart Rate 2015-05-07 14:07:00 [facility] [place] Heart Rate 2015-05-07 09:20:00 [facility] [place] Systolic (mm Hg) 2015-05-07 09:20:00 Xiang rial [place]ien Diastolic (mm Hg) 2015-05-07 09:20:00 Mem orial [place] Respitory Rate 2015-05-07 09:20:00 Memori al [place] Temperature Oral (F) 2015-05-07 09:20:00 97.9 F [facility] [place] Weight 2015-05-04 21:15:00 [facility] [place] BMI Calculated 2015-05-04 21:15:00 [facility] al [place] Height 2015-05-04 21:15:00 182.88 cm [facility] [place] Height 2015-05-04 21:07:00 182.88 cm [facility] [place] Weight 2015-05-04 21:07:00 [facility] [place] BMI Calculated 2015-05-04 21:07:00 Mem[facility] al [place] Temperature Oral (F) 2014-07-23 12:58:30 98.5 F [facility] [place] Respitory Rate 2014-07-23 12:58:30 [facility] al [place] Heart Rate 2014-07-23 12:58:30 [facility] [place] Height 2014-07-23 12:58:30 [facility] [place] Weight 2014-07-23 12:58:30 [facility] [place] Systolic (mm Hg) 2014-07-23 12:58:30 Xiang rial Damien Diastolic (mm Hg) 2014-07-23 12:58:30 Mem orial [place] Height 2014-03-14 14:04:42 [facility] [place] Temperature Oral (F) 2014-03-14 14:04:42 97 F [facility] [place] Respitory Rate 2014-03-14 14:04:42 Memori al [place] Heart Rate 2014-03-14 14:04:42 [facility] [place] Systolic (mm Hg) 2014-03-14 14:04:42 Xiang rial [place]ien Diastolic (mm Hg) 2014-03-14 14:04:42 Mem orial [place] Height 2014-02-20 14:03:41 [facility] [place] Weight 2014-02-20 14:03:41 [facility] Temperature Oral (F) 2014-02-20 14:03:41 98.3 F [facility] Respitory Rate 2014-02-20 14:03:41 [facility] Heart Rate 2014-02-20 14:03:41 [facility] Systolic (mm Hg) 2014-02-20 14:03:41 [facility] Diastolic (mm Hg) 2014-02-20 14:03:41 [facility] Height 2014-02-18 17:25:11 [facility] Weight 2014-02-18 17:25:11 [facility] Temperature Oral (F) 2014-02-18 17:25:11 98.3 F [facility] Respitory Rate 2014-02-18 17:25:11 [facility] Heart Rate 2014-02-18 17:25:11 [facility] Systolic (mm Hg) 2014-02-18 17:25:11 [facility] Diastolic (mm Hg) 2014-02-18 17:25:11 [facility] Height 2013-12-03 18:05:02 [facility] Weight 2013-12-03 18:05:02 [facility] Temperature Oral (F) 2013-12-03 18:05:02 98.3 F [facility] Respitory Rate 2013-12-03 18:05:02 [facility] Heart Rate 2013-12-03 18:05:02 [facility] Systolic (mm Hg) 2013-12-03 18:05:02 [facility] Diastolic (mm Hg) 2013-12-03 18:05:02 [facility] Systolic (mm Hg) 2013-11-26 18:55:21 [facility] Diastolic (mm Hg) 2013-11-26 18:55:21 [facility] Weight 2013-11-26 18:55:21 [facility] Temperature Oral (F) 2013-11-26 18:55:21 98.4 F [facility] Respitory Rate 2013-11-26 18:55:21 [facility] Heart Rate 2013-11-26 18:55:21 [facility] Height 2013-11-26 18:55:21 [facility] Temperature Oral (F) 2013-05-18 13:27:00 98.1 F [facility] Respitory Rate 2013-05-18 13:27:00 [facility] Heart Rate 2013-05-18 13:27:00 [facility] Systolic (mm Hg) 2013-05-18 13:27:00 [facility] Diastolic (mm Hg) 2013-05-18 13:27:00 [facility] Systolic (mm Hg) 2013-05-18 10:00:00 [facility] Diastolic (mm Hg) 2013-05-18 10:00:00 [facility] Temperature Oral (F) 2013-05-18 10:00:00 96.8 F [facility] Respitory Rate 2013-05-18 10:00:00 [facility] Heart Rate 2013-05-18 10:00:00 [facility] Diastolic (mm Hg) 2013-05-18 05:35:00 [facility] Temperature Oral (F) 2013-05-18 05:35:00 96.5 F [facility] Respitory Rate 2013-05-18 05:35:00 [facility] Systolic (mm Hg) 2013-05-18 05:35:00 [facility] Heart Rate 2013-05-18 05:35:00 [facility] BMI Calculated 2013-05-16 17:59:00 [facility] Weight 2013-05-16 17:59:00 [facility] Height 2013-05-16 17:59:00 182.88 cm [facility] Respitory Rate 2012-09-12 17:09:00 [facility] Systolic (mm Hg) 2012-09-12 17:09:00 [facility] Diastolic (mm Hg) 2012-09-12 17:09:00 [facility] Temperature Oral (F) 2012-09-12 17:09:00 96.9 F [facility] Heart Rate 2012-09-12 17:09:00 [facility] Diastolic (mm Hg) 2012-09-12 12:55:00 [facility] Systolic (mm Hg) 2012-09-12 12:55:00 [facility] Respitory Rate 2012-09-12 12:55:00 [facility] Heart Rate 2012-09-12 12:55:00 [facility] Temperature Oral (F) 2012-09-12 12:55:00 96.3 F [facility] Systolic (mm Hg) 2012-09-12 09:36:00 Xiang sánchez [facility] Diastolic (mm Hg) 2012-09-12 09:36:00 [facility] Heart Rate 2012-09-12 09:36:00 [facility] Respitory Rate 2012-09-12 09:36:00 Niltonkimberli al [place] Temperature Oral (F) 2012-09-12 09:36:00 96.9 F [facility] Weight 2012-09-11 16:16:00 [facility] Height 2012-09-11 16:16:00 [facility] Procedure Date / Time Performed Performing Clinician Adriano camille smoking/tobacco 2013-11-26 18:55:21 [facility] ruiz cessation, patient education and counseling Appendectomy; [facility] ORIF - Open reduction and Karol al [place] internal fixation of fracture ORIF - Open reduction and Niltonori al [place] internal fixation of fracture Encounters Start End Encounter Admission Attending Care Care Encounter Source Date/Time Date/Time Type Type Clinicians Facility Department ID 2017-11-29 2017-11-29 Outpatient Wyatt, MHMISCHER MHMISCHER [id number] 13:30:00 13:30:00 Roddy Mj 2017-06-05 2017-06-05 Outpatient Wyatt, MHMISCHER MHMISCHER [id number] 13:15:00 23:59:59 Roddy Mj 2017-04-24 2017-04-24 Outpatient Wyatt, MHMISCHER MHMISCHER [id number] 14:15:00 23:59:59 Roddy Mj 2017-04-24 2017-04-24 Outpatient Wyatt, MHMISCHER MHMISCHER [id number] 14:15:00 23:59:59 Roddy Mj 2017-04-12 2017-04-13 Outpatient MHMISCHER MHMISCHER [id number] 11:38:00 23:59:59 2016-05-30 2016-06-28 Outpatient Niki 2.16.840. 2.16.840. 1. [id number] 09:00:00 23:59:00 , Ebba 1.970746. 831347.3.61 00 Ning 3.615.15 5.15 Manlangit 2016-06-21 2016-06-28 Outpatient Ishfaq, MH9 [id number] 13:24:00 19:30:00 Kohler 2016-05-31 2016-05-31 Outpatient Sahil Hunter Sahil Dale Binta [id number] eClinic 14:30:00 14:30:00 Binta Crespo ks 2016-05-17 2016-05-18 Outpatient Zheng, Crow MH9 MH9 [id number] 11:39:00 18:19:00 Ali 2015-07-15 2015-07-20 Outpatient Payan, MH9 [id number] 18:00:00 12:31:00 Alicia ooq 2015-07-13 2015-07-14 Outpatient Paayn, MH9 MH9 [id number] 13:41:00 15:50:00 Alicia 04 Jefe 2015-05-06 2015-05-07 Outpatient BrunnerPascual 9 9 [id number] 12:00:00 16:00:00 53 2014-07-31 2014-07-31 [place] [id number] 13:53:00 23:59:00 Iefanyi Mu 2014-07-28 2014-07-28 [place] [id number] 16:00:00 23:59:00 Ifeanyi Mu 2013-11-27 2013-11-27 [place] [id number] 18:11:00 23:59:00 Ifeanyi Mu 2013-10-09 2013-10-09 [facility] [id number] 08:55:00 23:59:00 Sriram 00 2013-05-17 2013-05-18 Outpatient BrunnerPascual [facility] [id number] 11:45:00 12:45:00 65 Results Test Description Test Time Test Comments Results Result [facility] e Comments - INS GASTRO TUBE 2020-01-23 PERC 15:10:00 [facility] 1945 Sex: M Name: SHIRLENE NICHOLAS [facility] : 1945 Age/S: 74 / M [address] [address] Unit #: [id number] Loc: [place] [address] Phys: Sapna Rosas MD Acct: [id number] Dis Date: [id number] Status: DIS IN PHONE #: [phone] Exam Date: 01/02/2020 1200 FAX #: Reason: THROAT CA EXAMS: CPT: [id number] INS GASTRO TUBE PERC 35034 Fluoro Time: 00:24 DAP (Gy m2): 1 Air Kerma (mGy): 0.27 C3 Procedure: Aborted gastrostomy tube Indication: Dysphagia. Head and neck cancer. Date: 01/02/2020 Operators: Jason Rosa M.D. Medications: 1 mg IV glucagon IV Versed, and IV fentanyl Esfy-xq-ehtr time: Approximately 30 minutes. Complications: None immediate [...] left. IV glucagon was administered. Through a 5-Slovenian Kumpe catheter which was placed in the [...] 1 Signed Report (CONTINUED) Name: SHIRLEN[facility]ICHOLAS [facility] [place] : 1945 Age/S: 74 / M [address] [address] Unit #: [id number] Loc: [place] [address] Phys: Sapna Rosas MD Acct: [id number] Dis Date: [id number] Status: DIS IN PHONE #: [phone] Exam Date: 01/02/2020 1200 FAX #: Reason: THROAT CA EXAMS: CPT: [id number] INS GASTRO TUBE PERC 54891 Fluoro Time: 00:24 DAP (Gy m2): 1 Air Kerma (mGy): 0.27 <Continued> at 1510 Reported and signed by: Jason Rosa M.D. CC: Spana Rosas MD; Morteza Arriaza MD PAGE 2 Signed Report Name: SHIRLENE NICHOLAS [place] : 1945 Age/S: 74 / M [address] [address] Unit #: [id number] Loc: [place] [address] Phys: Sapna Rosas MD Acct: [id number] Dis Date: 20200108 Status: DIS IN PHONE #: [phone] Exam Date: 01/02/2020 1200 FAX #: Reason: THROAT CA EXAMS: CPT: [id number] INS GASTRO TUBE PERC 51574 Fluoro Time: 00:24 DAP (Gy m2): 1 Air Kerma (mGy): 0.27 <Continued> Technologist: Kanika Garcia Trnsdb Date/Time: 01/23/2020 (1509) [email or web address] Orig Print D/T: S: 01/23/2020 (1512) PAGE 3 Signed Report GLUCOSE BEDSIDE TESTING 2020-01-08 11:44:00 Test Item Value Reference Range Interpretation Comme nts GLUCOSE BEDSIDE TESTING (test code = GLUBED) 131 mg/dL 70-110 H GLUCOSE BEDSIDE [id number] 07:59:00 Test Item Value Reference Range Interpretation Comments GLUCOSE BEDSIDE TESTING (test code = 79 mg/dL 70-110 N GLUBED) GLUCOSE BEDSIDE [id number] 06:23:00 Test Item Value Reference Range Interpretation Comments GLUCOSE BEDSIDE TESTING (test code = 87 mg/dL 70-110 N GLUBED) GLUCOSE BEDSIDE [id number] 11:37:00 Test Item Value Reference Range Interpretation Comments GLUCOSE BEDSIDE TESTING (test code 101 mg/dL 70-110 N = GLUBED) GLUCOSE BEDSIDE [id number] 08:43:00 Test Item Value Reference Range Interpretation Comments GLUCOSE BEDSIDE TESTING (test code 114 mg/dL 70-110 H = GLUBED) GLUCOSE BEDSIDE [id number] 20:55:00 Test Item Value Reference Range Interpretation Comments GLUCOSE BEDSIDE TESTING (test code = 86 mg/dL 70-110 N GLUBED) - XR SWLW FUNC W/C [id number] 12:12:00 [facility] : 1945 Sex: M Name: SHIRLENE NICHOLAS [facility] : 1945ge/S: 74 / M [address] [address] Unit #: [id number] Loc: [place] [address] Phys: Sapna Rosas MD Acct: [id number] Dis Date: Status: ADM IN PHONE#: [phone] Exam Date: 01/06/2020 1000 FAX #: Reason: MBS EXAMS: CPT: [id number] XR SWLW FUNC W/C V 75785 Fluoro Time:132 DAP (Gy m2): Air Kerma [...] PAGE 1 Signed Report Name: SHIRLENE NICHOLAS [facility] : 1945 Age/S: 74 / M [address] [address] Unit #: [id number] Loc: [place] [address] Phys: Sapna Rosas MD Acct: [id number] Dis Date: Status: ADMIN PHONE #: [phone] Exam Date: 01/06/2020 1000 FAX #: Reason: MBS EXAMS: CPT: [id number] XR SWLW FUNC W/C V 21556 Fluoro Time: 132 DAP (Gy m2): Air Kerma (mGy): 8.79 <Continued> Technologist: Wayne Cleary, RT(R)(CT) Trnscb Date/Time: 01/06/2020 (121) t.SDR.ANS4 Orig Print D/T: S: 01/06/2020 (2026) PAGE 2 Signed ReportGLUCOSE BEDSIDE [id number] 11:57:00 Test Item Value Reference Range Interpretation Comments GLUCOSE BEDSIDE TESTING (test code 136 mg/dL 70-110 H = GLUBED) GLUCOSE BEDSIDE [id number] 10:25:00 Test Item Value Reference Range Interpretation Comments GLUCOSE BEDSIDE TESTING (test code 105 mg/dL 70-110 N = GLUBED) - XR CHEST 1 [id number] 07:39:00 [facility] : 1945 Sex: M Name: SHIRLENE NICHOLAS [place] : 1945ge/S: 74 / M [address] [address] Unit #: [id number] Loc: [place] [address] Phys: Magen Hammond MD Acct: [id number] Dis Date: Status: ADM IN PHONE#: [phone] Exam Date: 01/06/2020604 FAX #: Reason: pneumnonia EXAMS: CPT: [id number] XR CHEST 1 V 70145 Fluoro Time: DAP (Gy m2): Air Kerma [...] PAGE 1 Signed Report Name: SHIRLENE NICHOLAS [place] : 1945 Age/S: 74 / M [address] [address] Unit #: [id number] Loc: [place] [address] Phys: Magen Hammond MD Acct: [id number] Dis Date: Status: ADM IN PHONE #: [phone] ExamDate: 01/06/2020 06 FAX #: Reason: pneumnonia EXAMS: CPT: [id number] XR CHEST 1 V 59522 Fluoro Time: DAP (Gy m2): Air Kerma (mGy): <Continued> Technologist: Tati Buchanan, RT(R)(CT) Trnscb Date/Time: 01/06/2020 (0739) tVERENAR.HV2 Orig Print D/T: S: 01/06/2020 (0742) PAGE 2 Signed ReportGLUCOSE BEDSIDE [id number] 04:31:00 Test Item Value Reference Range Interpretation Comments GLUCOSE BEDSIDE TESTING (test code = 89 mg/dL 70-110 N GLUBED) GLUCOSE BEDSIDE [id number] 20:49:00 Test Item Value Reference Range Interpretation Comments GLUCOSE BEDSIDE TESTING (test code 109 mg/dL 70-110 N = GLUBED) GLUCOSE BEDSIDE [id number] 12:37:00 Test Item Value Reference Range Interpretation Comments GLUCOSE BEDSIDE TESTING (test code 160 mg/dL 70-110 H = GLUBED) - CT CHEST W/O [id number] 10:09:00 [facility] : 1945 Sex: M Name: SHIRLENE NICHOLAS [facility] : 1945ge/S: 74 / M [address] Unit #: [id number] Loc: [place] [address] Phys: Sapna Rosas MD Acct: [id number] Dis Date: Status: ADM IN PHONE#: [phone] Exam Date: 01/05/2020 0958 FAX #: Reason:TANIKA CONGESTION EXAMS: CPT: [id number] CT CHEST W/O CONTRAST 76070 EXAM: - CT CHEST W/O CONTRAST INDICATION: [...] 1 Signed Report (CONTINUED) Name: SHIRLENE NICHOLAS [place] : 1945 Age/S: 74 / M [address] Unit #: [id number] Loc: [place] [address] Phys: Sapna Rosas MD Acct: [id number] Dis Date: Status: ADM IN PHONE #: [phone] ExamDate: 01/05/2020 0946 FAX #: Reason: TANIKA CONGESTION EXAMS: CPT: [id number] CT CHEST W/O CONTRAST 55165 <Continued> at 1009 Reported and signed by: Lalo Lao M.D. CC: Sapna Rosas MD; Morteza Arriaza MD Tech nologist:RT Rekha(R)(CT) CTDI: DLP: Trnscb Date/Time: 01/05/2020 (1009) t.ISISR.AH26 Orig Print D/T: S: 01/05/2020 (1012) PAGE 2 Signed ReportGLUCOSE BEDSIDE [id number] 07:56:00 Test Item Value Reference Range Interpretation Comments GLUCOSE BEDSIDE TESTING (test code 137 mg/dL 70-110 H = GLUBED) GLUCOSE BEDSIDE [id number] 00:33:00 Test Item Value Reference Range Interpretation Comments GLUCOSE BEDSIDE TESTING (test code 162 mg/dL 70-110 H = GLUBED) - CT ABD PELVIS W/DUZB1614-27-25 13:06:00 [facility] : 1945 Sex: M Name: SHIRLENE NICHOLAS [facility] : 1945ge/S: 74 / M [address] [address] Unit #: [id number] Loc: [place] [address] Phys: Sapna Rosas MD Acct: [id number] Dis Date: Status: ADM IN PHONE#: [phone] Exam Date: 01/04/2020 1238 FAX #: Reason:abd pain EXAMS: CPT: [id number] CT ABD PELVIS W/CONT 68856 CT abdomen and pelvis with IV contrast. [...] 1 Signed Report (CONTINUED) Name: SHIRLENE NICHOLAS [place] : 1945 Age/S: 74 / M [address] [address] Unit #: [id number] Loc: [place] [address] Phys: Sapna Rosas MD Acct: [id number] Date: Status: ADM IN PHONE #: [phone] Exam Date: 01/04/2020 1231 FAX #: Reason: abd pain EXAMS: CPT: [id number] CT ABD PELVIS W/CONT 34950 <Continued> Interval development of upper abdominal foci [...] CC: Sapna Rosas MD; Morteza Arriaza MD Technologist:Jennifer Abbasi, RT(R) CTDI: DLP: Trnscb Date/Time: 01/04/2020 (1306) t.ISISR.RH16 Orig Print D/T: S: 01/04/2020 (5573) PAGE 2 Signed Report- XR ABDOMEN 1 [id number] 08:50:00 [facility] : 1945 Sex: M Name: SHIRLENE NICHOLAS [facility] : 1945ge/S: 74 / M [address] [address] Unit #: [id number] Loc: [place] [address] Phys: Sapna Rosas MD Acct: [id number] Dis Date: Status: ADM IN PHONE#: [phone] Exam Date: 01/04/2020 0837 FAX #: Reason: abd pain EXAMS: CPT: [id number] XR ABDOMEN 1 V 26746 Fluoro Time: DAP (Gy m2): Air Kerma [...] MD PAGE 1 Signed Report Name:SHIRLENE NICHOLAS [place] : 1945 Age/S: 74 / M [address] [address] Unit #: [id number] Loc: [place] [address] Phys: Sapna Rosas MD Acct: [id number] Dis Date: Status: ADM IN PHONE #: [phone] Exam Date: 01/04/2020 0837 FAX #: Reason: abd pain EXAMS: CPT: [id number] XR ABDOMEN 1 V 02851 Fluoro Time: DAP(Gy m2): Air Kerma (mGy): <Continued> Technologist: RT Rekha(R)(CT) Trnscb Date/Time: 01/04/2020 (0850) tTATUMRH16 Orig Print D/T: S: 01/04/2020 (0853) PAGE 2 Signed Report- XR CHEST 1 [id number] 08:50:00 [facility] : 1945 Sex: M Name: SHIRLENE NICHOLAS [facility] : 1945ge/S: 74 / M [address] [address] Unit #: [id number] Loc: [place] [address] Phys: Sapna Rosas MD Acct: [id number] Dis Date: Status: ADM IN PHONE#: [phone] Exam Date: 01/04/2020 0837 FAX #: Reason: cough EXAMS: CPT: [id number] XR CHEST 1 V 38662 Fluoro Time: DAP (Gy m2): Air Kerma [...] MD PAGE 1 Signed Report Name:SHIRLENE NICHOLAS [facility] : 1945 Age/S: 74 / M [address] [address] Unit #: [id number] Loc: [place] [address] Phys: Sapna Rosas MD Acct: [id number] Dis Date: Status: ADM IN PHONE #: [phone] Exam Date: 01/04/2020 0837 FAX #: Reason: cough EXAMS: CPT: [id number] XR CHEST 1 V 04309 Fluoro Time: DAP(Gy m2): Air Kerma (mGy): <Continued> Technologist: Anne-Marie Cuevas RT(R)(CT) Trnscb Date/Time: 01/04/2020 (0850) TessaRH16 Orig Print D/T: S: 01/04/2020 (0853) PAGE 2 Signed ReportBASIC METABOLIC [id number] 10:05:00 Test Item Value Reference Range Interpretation [...] code = CA) 7.4 MG/DL 8.5-10.1 L [id number] 10:05:00 Test Item Value Reference Range Interpretation Comments MAGNESIUM (test code = MAG) 1.7 MG/DL 1.8-2.4 L PROTHROMBIN [id number] 09:57:00 Test Item Value Reference Range Interpretation Comments PT PATIENT (test code = PTP) 11.5 SECONDS 9.3-12.9 N INTERNATIONAL NORMAL RATIO 1.02 INR Unit 0.8-1.2 N (test code = INR) CBC W/AUTO [id number] 09:50:00 Test Item Value Reference Range Interpretation [...] = MDIFF) - CT ABD PELVIS W/O [id number] 10:46:00 [facility] : 1945 Sex: M Name: SHIRLENE NICHOLAS : 1945ge/S: 74 / M [address] [address] Unit #: [id number] Loc: [place] [address] Phys: Jason Rosa MD Acct: [id number] Dis Date: Status: ADM IN PHONE#: [phone] Exam Date: 01/02/2020 1001 FAX #: Reason:PEG placement planning EXAMS: CPT: [id number] CT ABD PELVIS W/O CONT 41949 EXAM: CT pelvis abdomen and without contrast [...] 1 Signed Report (CONTINUED) Name: SHIRLENE NICHOLAS : 1945 Age/S: 74 / M [address] [address] Unit #: [id number] Loc: [place] [address] Phys: Jason Rosa MD Acct: [id number] Dis Date: Status: ADM IN PHONE #: [phone] Exam Date: 01/02/2020 1005 FAX #: Reason: PEG placement planning EXAMS: CPT: [id number] CT ABD PELVIS W/O CONT 24729 <Continued> Evaluation of the bladder is limited, [...] 2 Signed Report (CONTINUED) Name: SHIRLENE NICHOLAS [place] : 1945 Age/S: 74 / M [address] [facility] Unit #: [id number] Loc: [place] [address] Phys: Jason Rosa MD Acct: [id number] Dis Date: Status: ADM IN PHONE #: [phone] Exam Date: 01/02/2020 1001 FAX #:Reason: PEG placement planning EXAMS: CPT: [id number] CT ABD PELVIS W/O CONT 25074 <Continued> at 1046 Reported and signed by: French Vazquez M.D. CC: Sapna Rosas MD; Jason Rosa MD; Morteza Arriaza MD Technologist:Viola Arsen, RT(R) CTDI: DLP: Trnscb Date/Time: 01/02/2020 (1871) t.SDR.HPD Orig Print D/T: S: 01/02/2020 (1025) PAGE 3 Signed ReportCOVID 19 INHOUSE [id number] 13:50:00 Test Item Value Reference Range Interpretation Comments COVID 19 INHOUSE AG NEGATIVE Negative Per manu facturer, (test code = negative result s should [id number]) be treated aspr esumptive and, if inconsi [...] symptoms co nsistent with COVID-19. CBC W/AUTO [id number] 12:12:00 Test Item Value Reference Range Interpretation [...] NO DIFF/SCN CRITERIA = MDIFF) BASIC METABOLIC [id number] 12:12:00 Test Item Value Reference Range Interpretation [...] code = CA) 8.5 MG/DL 8.5-10.1 N VTTKOZGJLNEX3868-08-93 10:27:61592Eiyvffko EqvohwcCGRSTDZWXVSD5708-49-41 10:27:000.51[facility] QuuihkgZSQATIYSSUGU6079-91-73 10:27:0026[facility] BNCBKAEYHMSM2820-23-40 10:27:0097[facility] AbhpfurAAPDQUHSMVQL1574-80-31 10:27:00 3.7[facility] UlxkwfqHGDBUBPMATAY9153-62-40 10:27:007.8[facility] WIAEUEPVVOJQ6584-87-31 10:27:81010Nbmtucke UpavvddDTUFUFSLRNDS2283-06-71 10:27:0012.7[facility] TvvgixiDOJQAJKKSTVT4166-91-18 10:27:007[facility] NTXYGBVKMAFD4886-68-23 10:27:95492Jmrvviuo HermannBACTERIAL - BUXWZIUC7270-49-86 15:36:00Negative (06/23/16 10:36 AM)[facility] HermannBODY EBTBVT9670-27-52 15:36:0050[facility] HermannBODY EUDQHG9225-50-99 15:36:82992Tpwxdikn HermannBODY DZTELQ6632-18-15 15:36:00Colorless (06/23/16 10:36 AM)[facility] HermannBODY FLUIDS 2016-06-23 15:36:00 Test Item Value Reference Range Interpretation Comments Tube Num CSF (test code = Tube Num CSF) 4 1 [facility] HermannBODY EMWAMD4154-48-49 15:36:76809Gxikjjjz HermannBODY FLUIDS 2016-06-23 15:36:00Clear (06/23/16 10:36 AM)[facility] HermannBODY XFCXSN8470-91-83 15:36:0073[facility] HermannBODY NMWDNW7939-34-91 15:36:00Colorless (06/23/16 10:36 AM)[facility] HermannBODY LDOLVW4108-55-96 15:36:0082[facility] HermannBODY XYMMEG9481-29-51 15:36:005[facility] HermannBODY TXAFXN2802-19-37 15:36:0012 [facility] HermannBODY UEWWTI8524-54-28 15:36:001[facility] HermannIMMUNOLOGY 2016-06-23 15:36:00Non Reactive (06/23/16 10:36 AM)[facility] HermannVIRAL - SUBQAVCF1668-05-23 15:36:00Negative (06/23/16 10:36 AM)[facility] HermannTOXICOLOGY 2016-06-23 14:34:943115Frlarejh BylyeadLIHEGIVALO0775-21-11 14:34:0011.2[facility] HermannBACTERIAL - LACLBFQB2759-93-61 09:34:00Urine *NA*(06/23/16 4:34 AM) [facility] HermannBACTERIAL - DRGIFZTY9313-64-82 09:34:00Negative (06/23/16 4:34 AM)[facility] LojrxtcPUPZDCSEHNQT6978-16-97 09:20:66175Gewtltuc Damien PFTOSSCYXZJF3909-41-57 09:20:0010[facility] IbuaadfQJSUMXCJZKNE6067-22-71 09:20:00 98[facility] KxrnzkfCYVVHDBIDPFB4656-07-46 09:20:000.68[facility] KRWHYUURJXIF7447-63-15 09:20:004.1[facility] LkdkevkUPRBLSQLWLZY5788-44-48 09:20:0097[facility] BvaabyeHFRKNTCGZZER9907-45-76 09:20:0017.1[facility] QDPOSMMTBJJP6878-81-47 09:20:007.9[facility] WoohnakMPULXSBOTWZM8590-53-29 09:20:0019[facility] HbvdevzFWALNUXYPUGC4767-55-25 09:20:0098[facility] HermannCHEM TZGWZ2153-68-42 09:19:0082[facility] HermannCHEM CKZTK6796-89-57 09:19:0012 [facility] HermannCHEM MXWMT5992-01-63 09:19:32201Aiaxihjr HermannCHEM PANEL 2016-06-22 09:19:000.67[facility] HermannCHEM EVHLT0624-40-25 09:19:003.7[facility] HermannCHEM LLJNE5600-46-89 09:19:0098[facility] HermannCHEM QMVVB8568-39-25 09:19:0023[facility] HermannCHEM VRIUN4401-34-13 09:19:008.0[facility] HermannCHEM CSBXC6711-14-61 09:19:0097[facility] HermannCHEM YQVOJ7202-13-31 09:19:0015.7 [facility] KkwvnarPWPAKKOHHF9110-88-53 09:19:009.6[facility] HermannHEMATOLOGY 2016-06-22 09:19:0097[facility] ObnadskHWOXXTJGCI8408-51-08 09:19:008.3[facility] ZlmhrrjEXPVSKTEET6637-12-95 09:19:004.78[facility] EilfcgaVUKCGHRSIJ0887-53-00 09:19:0016.3[facility] HgwflsnIKBKQUZNBT3378-72-51 09:19:0034.0[facility] RNSRVUBTTN0090-86-41 09:19:0013.7[facility] ShooypnYOEBPAMGDT4554-65-36 09:19:00 48.0[facility] NkhsewnIBIVUREIGV6033-18-51 09:19:98072.4[facility] HermannHEMATOLOGY 2016-06-22 09:19:00 Test Item Value Reference Range Interpretation Comments MCH (test code = MCH) 34.2 pg 27.0-31.0 [facility] RdilokuNZBFJGZJNM3650-69-50 09:19:001+ *ABN*(06/22/16 4:19 AM)[facility] IuldnbfZZACXKEKOY5900-14-92 09:19:001.0[facility] HgqkdmtXQIVYUJPAK8960-14-51 09:19:000.2[facility] VvqryrbHUKHFSLATK1677-38-31 09:19:0012.1[facility] JHYYCTBXBA3945-14-80 09:19:005.5[facility] CwhjmmsXUDMHKFCQM6934-43-76 09:19:00 81.7[facility] NcmcdbfELVRDLMHRP5491-54-11 09:19:000.5[facility] HermannHEMATOLOGY 2016-06-22 09:19:000.5[facility] MhsscniLUYYCJICEC9685-78-54 09:19:006.8[facility] UysqafcHHFEPSYXVJ1226-71-99 08:24:0057.8[facility] HermannCHEM WKJFR8629-16-10 00:57:001.6[facility] HermannURINE AND OPMKY3515-01-23 22:17:00Negative *NA*(06/21/16 5:17 PM)[facility] HermannURINE AND YLYUB4502-73-45 22:17:00Slight *ABN*(06/21/16 5:17 PM)[facility] HermannURINE AND PXCOG9100-65-95 22:17:005.0 [facility] HermannURINE AND HVXVS6864-39-21 22:17:001.023[facility] HermannURINE AND SCPZO5306-95-13 22:17:00Yellow *NA*(06/21/16 5:17 PM)[facility] HermannURINE AND HXIQC0073-95-67 22:17:00Small *ABN*(06/21/16 5:17 PM)[facility] HermannURINE AND URMGJ2565-02-23 22:17:00Negative (06/21/16 5:17 PM)[facility] HermannURINE AND YPPMU1151-59-77 22:17:00Negative (06/21/16 5:17 PM)[facility] HermannCARDIAC FXUYPHC1596-20-66 21:15:000.02[facility] HermannCARDIAC DFFPEUX0761-76-96 21:15:00 <0.5[facility] HermannCARDIAC JOWFEFU1916-92-68 21:15:0049[facility] CARDIAC DLUMSDK0263-89-12 21:15:00<1.0[facility]annCHEM QOLGG8414-74-26 21:15:0025[facility]annCHEM LZWSK1068-81-98 21:15:003.6[facility]annCHE[facility] GHQRE8963-00-51 21:15:000.9[facility]annCHE[facility] QLYKX7406-57-77 21:15:0056 [facility]CHE[facility] ONKXL7010-68-64 21:15:0024[facility]annCHEM PANEL 2016-06-21 21:15:000.7[facility]annCHE[facility] PDRJJ2075-75-81 21:15:003.2[facility]annCHE[facility] YJSDQ7718-11-31 21:15:0031[facility]annCHE[facility] BSLGB3099-64-57 21:15:006.8[facility] VbcmlonJQJSIZKSTZ3995-33-43 21:15:00 Test Item Value Reference Range Interpretation Comments PT (test code = PT) 12.4 s 12.0-14.7 [facility] AwsnustDKKNDSVYQH1991-60-82 21:15:000.91[facility]annHEMATOLOGY 2016-06-21 21:15:009.2[facility] JqtwjnoNWSWWLFYAR0350-00-25 21:15:0013.6[facility] LinwfgePVIWRXIIOS4346-00-44 21:15:0016.4[facility] ZmlcssdXIAEUIBQBZ5770-02-27 21:15:0034.3[facility] BxuwmsfQKSYOIMTRA2897-30-89 21:15:0099[facility] DYTNWLDEBV4134-29-11 21:15:0099.1[facility] CmcnsxiLLZCEXDHVP4757-36-22 21:15:00 Test Item Value Reference Range Interpretation Comments MCH (test code = MCH) 34.0 pg 27.0-31.0 [facility] DwxvscnULEOIWLECY6869-40-67 21:15:0047.9[facility]annHEMATOLOGY 2016-06-21 21:15:0010.1[facility] EmowqtmSMIGSSLCJB3486-29-12 21:15:004.83[facility] KjxeeawLSPLFDOGRD2149-31-38 21:15:00 Test Item Value Reference Range Interpretation Comments PTT (test code = PTT) 28.2 s 22.9-35.8 [facility] BbomfguGGFETQFLTE1628-10-44 21:15:001.0[facility]annHEMATOLOGY 2016-06-21 21:15:0085.4[facility] SmbzwpkQDZLDDHFYW8865-47-98 21:15:000.3[facility] GifocutFKXLPSGKGD3626-83-23 21:15:000.2[facility] FpslfvtLYSCUEFTDV4569-33-79 21:15:0010.2[facility] PcxuexxDNVPFBEGNG7003-98-60 21:15:003.9[facility] NXARVFBHRU4181-98-25 21:15:000.4[facility] MrucpruMXAKRFEDAI9760-96-39 21:15:008.6 [facility] FhqnnbpUYOFPEMKWX3911-70-20 21:15:00Normal (06/21/16 4:15 PM)[facility] XhsnygpCDKZITWVKW6013-78-74 21:15:00Normal (06/21/16 4:15 PM)[facility] EKXTG6771-42-58 21:15:00Negative (06/21/16 4:15 PM)[facility]annVIRAL - MSPOVESB9300-66-97 21:15:00Negative (06/21/16 4:15 PM)[facility]annVIRAL - PWLGOTUB9343-51-51 21:15:00Negative (06/21/16 4:15 PM)[facility]annCHEM PANEL 2016-05-18 11:43:0092[facility]annCHEM VXBUJ1571-69-53 11:43:0049[facility]annCHEM GUNAB4819-15-56 11:43:000.6[facility]annCHEM KIEUJ3365-15-08 11:43:005.0[facility]annCHE[facility] BJJTV1097-91-54 11:43:0023[facility]annCHEM VOJWX0600-90-46 11:43:0023[facility]annCHE[facility] MECTL4770-13-92 11:43:002.5 [facility]annCHE[facility] JFTOC1998-29-05 11:43:002.5[facility]annCHEM PANEL 2016-05-18 11:43:001.0[facility]annCHEM ZLKTE1388-96-89 11:43:0021[facility]annCHEM EZNLS2446-87-13 11:43:0011[facility]annCHEM QMXKS7604-68-44 11:43:000.76[facility]annCHEM HQGSS4379-10-47 11:43:0014.6[facility] CHEM ZQDGA9123-73-08 11:43:008.0[facility]annCHEM JPVQO4759-78-88 11:43:003.6 [facility]annCHE[facility] YIOPP4614-80-04 11:43:64181Kjtbpdqy HermannCHEM PANEL 2016-05-18 11:43:0095[facility]annCHEM AJBCG9889-96-47 11:43:89319Daqnvvth HermannCHEM PUNHO6847-06-91 11:43:008[facility] OfgfiisQTBMAHUSNA8424-28-82 11:43:003.1[facility] ZwofyucOGWZQRMJAX8036-82-95 11:43:001.4[facility] IYRLKZLICW4564-56-05 11:43:003.2[facility] FlyyzmqSHUBAHLPFE4955-59-48 11:43:00 11.9[facility] RzhpdlnSXQISUFUVT2360-37-98 11:43:000.4[facility]annHEMATOLOGY 2016-05-18 11:43:001+ *ABN*(05/18/16 5:43 AM)[facility] AeihvksVYGVDVTIBK4134-34-37 11:43:000.2[facility] UoosjdzGLRSHHUSQN4311-05-61 11:43:000.6[facility] MBSRPPPQGZ3584-74-80 11:43:0025.2[facility] GmfghhhLYNLAYNFTN3135-05-33 11:43:00 59.4[facility] UecuqudOVQVLURONF0830-77-14 11:43:003.95[facility]annHEMATOLOGY 2016-05-18 11:43:005.4[facility] MlplihpRDSSTEWYYN0914-42-29 11:43:99605Lfukcaki BspwthnKMKBVOBKFH6186-23-38 11:43:0014.1[facility] QfgkrkuNWRTAYTNQL5013-05-10 11:43:009.1[facility] ZygmrcwYLJQSHHDCL7942-63-78 11:43:25352.8[facility] UOYSECYJOT2858-07-75 11:43:0033.5[facility] IofmazkJMTQSWYXHA2553-27-86 11:43:00 Test Item Value Reference Range Interpretation Comments MCH (test code = MCH) 35.1 pg 27.0-31.0 [facility] YqzzfqqFQLQWKZLTN3727-62-87 11:43:0041.3[facility]annHEMATOLOGY 2016-05-18 11:43:0013.9[facility]annCHEM JCDDT8474-52-54 00:40:001.2[facility] HqqqytpCIPMAVEZWF0480-48-70 00:40:00<2.9[facility] MbmramgLIPTQSSIRD9330-68-32 19:08:009.3[facility] RfkichsENQQNWBQGZ2789-89-51 19:08:57665Okllwjyx [facility] XCKZDZPBDP2869-55-33 19:08:0014.3[facility] DigqfzfELCHSBBAIB3837-56-96 19:08:00 34.4[facility] MzbfytrMPPYBNYCPX3957-92-99 19:08:0017.1[facility]annHEMATOLOGY 2016-05-17 19:08:004.78[facility] LkqlhihYYTWRFLRFM8295-22-49 19:08:008.4[facility] CwpvdtrVAEQHIISFM4191-02-40 19:08:00 Test Item Value Reference Range Interpretation Comments MCH (test code = MCH) 35.7 pg 27.0-31.0 [facility] PzugmmmVKHTKJXTSD3663-13-83 19:08:13367.6[facility]annHEMATOLOGY 2016-05-17 19:08:0049.6[facility] TmzmafnYIEUQYGRKC1049-92-93 19:08:001+ *ABN*(05/17/16 1:08 PM)[facility] JoawywtOCUYXLZJGY0342-19-19 19:08:000.9[facility] NvlbrfsKQUVDTQGXQ1161-08-53 19:08:000.1[facility] GzxvuqkPTAJWCXOIQ3720-74-95 19:08:006.0[facility] IdjjzniYONLUAAXFX9391-36-55 19:08:001.1[facility] RRLHLKQSTC5101-42-17 19:08:001.3[facility] DfvoncmWAPIXIHDXV7133-31-54 19:08:000.5 [facility] TztaomcESVIQDIMBW0754-62-31 19:08:0010.9[facility]annHEMATOLOGY 2016-05-17 19:08:0015.9[facility] ZwawqprYQCMQRHVMX6816-38-73 19:08:0071.6[facility]annCHEM YFOTP5044-98-50 19:03:001.7[facility] NvuwcreXBKOXAAVFDHC8183-55-16 19:03:0018.3[facility] ZygyneuOLWXQGWRNPWQ8646-49-11 19:03:006[facility] CTVVZITXDPJM7965-84-42 19:03:003.7[facility] YwxpgnjTSIUFRVYBNRS3476-71-90 19:03:001.0[facility] CqotvtzPMMVMXDJVOVY3529-42-71 19:03:0032[facility] NOFZHCKGUGFQ0421-20-77 19:03:003.7[facility] BosrzouUBVZAJOGTMOO7773-40-50 19:03:0033[facility] AethcwoDNYXZUIPHCCJ1755-33-56 19:03:0068[facility] LZXYQJKJLBAB7267-69-37 19:03:000.5[facility] DglyuymAVLALKXQWQAP0776-74-82 19:03:52054Grecnwdo VxsbbscHKWSOCBJELIG4965-96-34 19:03:56050Begvulpe [facility] FUQGDFDUTIAU1668-12-67 19:03:003.3[facility] IcvsnzzQTVYSXGOOJCC6601-48-61 19:03:008.8[facility] DhfdtnwYNDAWBVWYMAJ7586-42-22 19:03:0024[facility] UVZMHSJTPDZO8896-73-12 19:03:007.4[facility] FeokdvhTEJMPMITLWZB0081-07-40 19:03:000.89[facility] MuefhbqCBCGBMIZKBYE9402-85-81 19:03:005[facility] ZSEKAANKGBIG6438-47-29 19:03:0089[facility] RvzvxnmQITLJXVKJJJZ8447-77-33 19:03:00 87[facility]annCHEM ASWSJ9658-72-14 19:27:0092[facility]annCHEM PANEL 2015-07-19 19:27:008.8[facility]annCHEM QKPYD7544-76-07 19:27:000.78[facility]annCHEM WFGRF0298-22-43 19:27:58845Qpjsujja HermannCHEM OOVRH5223-89-65 19:27:24128Kpuqxeqg HermannCHEM IOJHP4913-76-87 19:27:0019[facility]annCHEM GXSWQ2253-47-28 19:27:96097Myljquqx HermannCHEM SOQOK3776-09-81 19:27:004.5 [facility]annCHEM LLPYX8268-96-93 19:27:0028[facility]annCHEM PANEL 2015-07-19 19:27:0011.5[facility] EardizzDFSHVXTBYI6633-62-74 19:27:001+ *ABN*(07/19/15 2:27 PM)[facility] SkvwzxmEMAMQGJZWZ1424-44-36 19:27:000.2[facility] QpuxsyhFOEGRZSVBN0189-91-40 19:27:0011.8[facility] DiiyaoxYEYIXVZTZC1058-05-79 19:27:000.0[facility] WjseodeOIPRRBHYIT1133-95-90 19:27:000.4[facility] MMMLONCTKA6980-47-44 19:27:001.4[facility] FgbkdfiEDNTQBTHZE9889-55-01 19:27:000.3 [facility] LgnkrzxRMZZBEFYKK5142-70-15 19:27:002.0[facility]annHEMATOLOGY 2015-07-19 19:27:0093.2[facility] JjmglvcCFUKLTJHRN3176-81-16 19:27:00Normal (07/19/15 2:27 PM)[facility] JipmnmvQMDCPKLAGX3601-54-99 19:27:00Normal (07/19/15 2:27 PM)[facility] XeediklPEDQWPIGGH1939-87-37 19:27:000.0[facility]annHEMATOLOGY 2015-07-19 19:27:003.4[facility] GfrweuiFJWQYLOFAD2133-44-05 19:27:00 Test Item Value Reference Range Interpretation Comments MCH (test code = MCH) 32.9 pg 27.0-31.0 [facility] EqecszeOHIHKZSWXO8260-09-64 19:27:95868.1[facility]annHEMATOLOGY 2015-07-19 19:27:0032.6[facility] MyifjpoNGMIEKBRYX1147-80-73 19:27:0012.6[facility] PdmbslhLDAWOLZLZU9654-81-70 19:27:004.21[facility] MccegnyQUVIOXRUSX0037-98-06 19:27:0013.9[facility] LvgoczbJHEMYXCSON0105-17-16 19:27:0042.6[facility] ZDYATBDRTY9410-01-47 19:27:008.4[facility] OwuughjASIZLJWEGL8081-93-15 19:27:71210 [facility] VitnvcxRZSFFWRWOS6563-30-79 19:27:0014.6[facility] HermannELECTROLYTES 2015-07-16 10:10:009.3[facility] NzhdbqlPVSXVVYANDTA6718-22-00 10:10:0014[facility] PxvwayhNDOISSIPWQEP1616-45-76 10:10:003.2[facility] VhqluueHLMSGIKBCCGU5839-84-72 10:10:000.9[facility] FhymggiPCRDAPXXHCMG5564-19-33 10:10:004.3[facility] ASUCUOZIMECM6652-28-96 10:10:66848Wgpuijtm UwjkprsEXOEJROIXQUG9222-28-48 10:10:84026Pwrwvkkj FpkxpenDVWUPRIUTULT7298-36-43 10:10:0076[facility] EDSBYGLQOYYU0824-30-55 10:10:46044Ijmegnes ArsurecEDVKLRCHUJDM9115-64-57 10:10:0014[facility] ObxihipDHJMVZFPEOTM2164-10-82 10:10:001.01[facility] XDMWKBHUIDRD7205-43-26 10:10:008.2[facility] YwhmsplMYMXPCUGTVMV5101-74-05 10:10:0028[facility] RelqqefZDGQSJLWXIAK9479-43-91 10:10:003.0[facility] FCRWMGAZWQBS9814-06-26 10:10:0029[facility] UxnsfrhJXNQMQVZEAVA7015-54-06 10:10:00 6.2[facility] ZldzjsqBNEEVJCPYKHR0644-87-72 10:10:000.4[facility] BNQHSMMFXEFR0254-91-09 10:10:0036[facility] UwerazoCNKQKCIPRADD8357-96-85 10:10:00 56[facility] LxxcdwnPGDREXAAUR5259-51-11 10:10:002.3[facility]annHEMATOLOGY 2015-07-16 10:10:0010.4[facility] LmbzqjhIAOWWIPMNN0515-83-07 10:10:000.0[facility] GiiwmhyEXFLSMQUTR1964-74-66 10:10:003.2[facility] JjmwiglMRKPJNXURN4537-89-41 10:10:0094.5[facility] TmbswrkYKHOOJSIHG9446-78-08 10:10:000.0[facility] EJOBETJMBZ9087-54-80 10:10:000.0[facility] NvozrcvOEDYCZLJMZ4683-56-75 10:10:000.0 [facility] BttipfxNKJUFVPQYO4294-68-78 10:10:000.3[facility]annHEMATOLOGY 2015-07-16 10:10:000.3[facility] JguuaipTCXNXVDINT3273-20-78 10:10:0033.3[facility] YydbgkxHOSYQZZKTH7744-66-07 10:10:008.4[facility] YayduuzSSEHVLRWTA9392-07-06 10:10:08034Rthvluaa OwyrtjuGONMRXYOYY1226-67-06 10:10:00 Test Item Value Reference Range Interpretation Comments MCH (test code = MCH) 33.6 pg 27.0-31.0 [facility] GsfzqshLMOTEDFZHU1045-26-09 10:10:0015.5[facility] HermannHEMATOLOGY 2015-07-16 10:10:0013.6[facility] QvgclppUCYUQMIMXE9670-03-49 10:10:004.05[facility] IamveyeULXHVLQAAY2571-23-33 10:10:57004.9[facility] HvlffjwTLMSFAKCOB7603-21-64 10:10:0040.9[facility] RdesftvTRKPJSZFBY4465-67-95 10:10:0011.0[facility] CHEM HRRJL5896-72-57 23:15:0014[facility] HermannCHEM ULSPG7049-88-38 23:15:91688 [facility]annCHEM TUKQJ8112-73-88 23:15:70586Xztcottv HermannCHEM PANEL 2015-07-15 23:15:97719Ukphneuc HermannCHEM GFEGL6553-02-33 23:15:004.1[facility]annCHEM IFKUE2471-10-74 23:15:0025[facility]annCHEM BWEMI3987-18-66 23:15:003.5[facility]annCHEM VSUWE5955-14-04 23:15:008.9[facility]annCHEM YVHNE6688-73-63 23:15:0063[facility]annCHEM GRFDM4164-43-37 23:15:0035 [facility]annCHEM EDZQU6070-63-94 23:15:001.17[facility]annCHEM PANEL 2015-07-15 23:15:0040[facility]annCHEM TDLBS6395-54-75 23:15:007.0[facility]annCHEM VEZDR8192-36-47 23:15:0066[facility]annCHEM LGSHG2531-00-15 23:15:000.4[facility]annCHEM KIETC4019-02-50 23:15:0015.1[facility]annCHEM ZLUNO7303-51-87 23:15:003.5[facility]annCHEM PZNUM8548-88-57 23:15:001.0 [facility]annCHEM JZKNC2109-07-84 23:15:0012[facility]annHEMATOLOGY 2015-07-15 23:15:000.98[facility] YjbouobPBSREXFDYU2581-42-51 23:15:00 Test Item Value Reference Range Interpretation Comments PT (test code = PT) 13.3 s 12.0-14.7 [facility] XeyhtyeLKQIHAHSKG7453-66-38 23:15:90073Tqpnrbah HermannHEMATOLOGY 2015-07-15 23:15:008.1[facility] SspknqvDILKIKWAKU9348-43-49 23:15:0045.9[facility] HgaoofhVYIMPVSYRA5851-67-72 23:15:0032.4[facility] AocytizJVBBYHIBEO4419-35-06 23:15:0015.2[facility] CqlrrhhYTYLQMILRM7079-58-59 23:15:43106.9[facility] SJZLJVDJMV8504-33-10 23:15:00 Test Item Value Reference Range Interpretation Comments MCH (test code = MCH) 33.0 pg 27.0-31.0 [facility] IrwelebBFJAJYXBFI4707-62-57 23:15:0017.8[facility]annHEMATOLOGY 2015-07-15 23:15:004.51[facility] KkreqcwTTIUTFJXKK5171-82-19 23:15:0014.9[facility] FvnpmtbTYERUHERTE7238-46-30 23:15:001.1[facility] YlxpouhAFIKCGMPYJ2467-14-03 23:15:000.0[facility] XrpqracRAECXYGCCN1449-12-59 23:15:0015.4[facility] NCYNPKQDLH8430-52-37 23:15:001.4[facility] IjgsncsJOJFWFHYZM7333-47-83 23:15:000.0 [facility] YdbwuozLSBPKDOQMV3211-82-05 23:15:000.0[facility]annHEMATOLOGY 2015-07-15 23:15:000.1[facility] QkztavcELSUFEBDNT9392-01-97 23:15:001+ *ABN*(07/15/15 6:15 PM)[facility] JmhupelFMJJXKTJTJ1982-37-81 23:15:006.0[facility] SpxnhklFYTCJZJXWX8632-83-82 23:15:00Normal (07/15/15 6:15 PM)[facility] CPCJTOACTM2669-85-11 23:15:00Normal (07/15/15 6:15 PM)[facility]annHEMATOLOGY 2015-07-15 23:15:007.7[facility] MatplejXTHFFMHSYH7935-06-73 23:15:0086.2[facility] HermannCHEM YELHT3672-76-22 10:30:0088[facility]annCHEM DWJQL5191-16-98 10:30:0011.4[facility] HermannCHEM FULIK8300-12-85 10:30:008.9[facility]annCHEM GGWDX4669-41-13 10:30:0028[facility]annCHEM DGVOQ1060-18-87 10:30:0010 [facility]annCHEM MQHSR2072-21-74 10:30:000.87[facility] HermannCHEM PANEL 2015-07-14 10:30:17596Ywdvoyia HermannCHEM WRUHH8527-70-51 10:30:67938Wogmbftl HermannCHEM ULLLM4693-84-23 10:30:004.4[facility]annCHEM XIJRR3660-65-42 10:30:24756Hfusmbtz LkixmgaDDBWZVZGXV9126-26-76 10:30:000.0[facility] OXLLQASTVZ7141-86-35 10:30:000.0[facility] JwbasptGTPGYTLQTQ7439-02-45 10:30:000.1 [facility] OtgqavnHWFVYEKHYP6260-37-28 10:30:001.9[facility]annHEMATOLOGY 2015-07-14 10:30:0092.6[facility] MmfzsxgJJISKIVTCS0623-17-68 10:30:005.5[facility] TkxxdrxRCGVZPKWMA9738-80-69 10:30:000.0[facility] BagogvfNSLYHADSGD9123-25-62 10:30:000.0[facility] VtztxurFOBCOHGFRD7241-79-42 10:30:005.1[facility] VUAEKSCUWT4340-32-68 10:30:000.3[facility] SaxzkbqUZDSSCYCQV6962-13-84 10:30:00 100.8[facility] PezkfgjSRWFIGYHAK3390-51-91 10:30:33671Cljgqyoj HermannHEMATOLOGY 2015-07-14 10:30:008.1[facility] XrbucotWZIYHYUYNV9023-62-21 10:30:0014.9[facility] KnxfdzrBGEWENDCNW2773-06-77 10:30:0013.6[facility] SksifirJECUFSKZAV8517-13-48 10:30:004.11[facility] LkxxbggJPVYNPSKTJ3593-06-19 10:30:0041.5[facility] RUCODKOYFG9326-40-29 10:30:005.5[facility] WcscnneLXQCBQREUX3591-80-06 10:30:00 Test Item Value Reference Range Interpretation Comments MCH (test code = MCH) 33.0 pg 27.0-31.0 [facility] MijdrchZOGXAPKXSS6400-09-66 10:30:0032.7[facility] HermannCHEM PANEL 2015-07-14 01:11:0093[facility] HermannCHEM HRIAH6663-02-65 01:11:000.76[facility] HqomytgMZTKCKTUUS0976-54-01 01:11:04579Qxjymjzg JwjtfafBZICISQOBY2502-49-87 01:11:00 Test Item Value Reference Range Interpretation Comments PTT (test code = PTT) 26.6 s 22.9-35.8 [facility]annCARDIAC NJUUVLX0219-01-03 21:04:0070[facility]annCARDIAC LVXGHWI6857-91-85 21:04:00<0.02[facility]annCARDIAC LSLXTVE3920-66-15 21:04:001.7[facility]annCARDIAC SMSWJJE2100-23-85 21:04:002.4[facility] CHEM WPFSY6422-38-98 21:04:0028[facility]annCHEM PCAJT7811-05-18 21:04:0030 [facility]annCHEM AHWYL2341-64-67 21:04:003.0[facility]annCHEM PANEL 2015-07-13 21:04:006.6[facility]annCHEM JVFQE3171-14-29 21:04:008.8[facility]annCHEM AJBYA0326-78-83 21:04:003.6[facility]annCHEM EORNB3641-72-76 21:04:006[facility]annCHEM NRKBH4023-35-80 21:04:0011.8[facility]annCHEM DNVPJ5509-22-93 21:04:000.4[facility]annCHEM ZGPNJ3863-16-37 21:04:0065 [facility]annCHEM OOOPQ7118-72-24 21:04:005[facility]annCHEM PANEL 2015-07-13 21:04:28150Ntygdyim HermannCHEM ISURO3308-27-52 21:04:0029[facility]annCHEM VYOZV1493-36-25 21:04:45259Ksxjlojd HermannCHEM PIKXX8640-20-15 21:04:003.8[facility]annCHEM JBRJT5354-05-77 21:04:93224Nqygyotu HermannCHEM NVLUD2402-07-15 21:04:000.80[facility]annCHEM MZDJG7124-63-79 21:04:000.8 [facility]annCHEM YIRSD5134-77-74 21:04:0091[facility]annHEMATOLOGY 2015-07-13 21:04:008.5[facility] HrzcjsxGAQXLTZWGR9842-09-41 21:04:0015.2[facility] PddpulmBDYZFOOMQM0724-45-25 21:04:59711Elzwjagr NejoxaoHGNLVDAJWC6974-46-25 21:04:0033.1[facility] AdcqcrcVIWCEZJEPW5201-40-93 21:04:005.8[facility] NGYDCUCYTE7653-65-57 21:04:0099.9[facility] OkpzxzlWFZZLXUFAD9288-15-34 21:04:00 Test Item Value Reference Range Interpretation Comments MCH (test code = MCH) 33.0 pg 27.0-31.0 [facility] ZlmjashUOMZTVHKYP8341-57-89 21:04:0042.8[facility]annHEMATOLOGY 2015-07-13 21:04:004.28[facility] SevwbthODTBJPBKXO2254-98-80 21:04:0014.2[facility] BhqtrkmANQWCCHHLI9489-65-85 21:04:005.8[facility] XgnvdjsVGQMYOZAHD7792-21-95 21:04:000.0[facility] QtewgjjLVBHFWJJBM6102-07-88 21:04:0010.7[facility] FSCPVVNQZF5833-13-15 21:04:000.3[facility] DfgyyvcJGWMLQBBZN5104-64-27 21:04:000.6 [facility] LqlajqeVYKCVUZQSP3243-66-28 21:04:000.0[facility]annHEMATOLOGY 2015-07-13 21:04:0083.4[facility] CuhvtucICSEWMLIIM4529-69-19 21:04:004.8[facility] MlijtoyVYIPOLIANY5965-27-27 21:04:000.1[facility] BhtelazDUXRPPTOYB6976-25-10 21:04:000.0[facility]annCHEM OZRVK9624-12-30 10:54:002.2[facility]annCHEM WEBCW0132-12-29 10:54:0091[facility]annCHEM WLILQ2290-90-02 10:54:003.1 [facility]annCHEM VUARX8080-67-01 10:54:000.9[facility]annCHEM PANEL 2015-05-06 10:54:37324Okcticty HermannCHEM KRHMV2398-82-35 10:54:000.3[facility]annCHEM BEZBK3490-63-41 10:54:0014.1[facility]annCHEM EGUFR4428-50-61 10:54:0025[facility]annCHEM QPWZG3537-51-62 10:54:000.79[facility]annCHEM IBBBU7687-19-84 10:54:0020[facility]annCHEM MRZYN8429-78-09 10:54:0025 [facility]annCHEM TPBBX1562-98-83 10:54:008.4[facility]annCHEM PANEL 2015-05-06 10:54:006.0[facility] HermannCHEM ZLSNQ7041-43-15 10:54:002.9[facility]annCHEM KZWVE5113-90-18 10:54:0074[facility]annCHEM JRDNX4095-13-70 10:54:0022[facility]annCHEM QFIXC6295-91-81 10:54:0046[facility]annCHEM PIYJK8953-67-69 10:54:004.1[facility]annCHEM EPDVO7386-76-47 10:54:35891 [facility]annCHEM TYUXP1814-99-06 10:54:02176Teajcahr HermannHEMATOLOGY 2015-05-06 10:54:0014.1[facility] HmaxkbwYUPYUMWNOF1566-18-14 10:54:004.17[facility] SpezcthWKFTLQZRSW2344-88-77 10:54:0013.8[facility] WmyseofNADGKUHQYL9440-11-62 10:54:0033.5[facility] WznsjwmOPEBRHIXDJ9771-51-74 10:54:008.9[facility] EAJCWWXFMA0205-12-09 10:54:09063Aexyjxpb FeqiimtIVBEUESATF9421-34-59 10:54:00 13.0[facility] WhbkagtDMUXHIRSOV5321-21-23 10:54:0042.0[facility]annHEMATOLOGY 2015-05-06 10:54:00 Test Item Value Reference Range Interpretation Comments MCH (test code = MCH) 33.8 pg 27.0-31.0 [facility] YyhpsyvWACWXYJLVZ7773-43-05 10:54:52928.7[facility] HermannCHEM PANEL 2015-05-04 23:48:0072[facility] HermannCHEM CDOAX4573-51-26 23:48:001.05[facility] HermannCHEM DTLTQ6662-48-02 23:48:50628Hadcxfmd HermannCHEM UBQGF3325-45-70 23:48:0022[facility]annCHEM KWFYF5082-74-67 23:48:21932Hnizkktt HermannCHEM QTEMS4312-28-43 23:48:008.7[facility] HermannCHEM AYZHS4709-28-41 23:48:0029 [facility]annCHEM GRRDA9292-88-67 23:48:004.3[facility] HermannCHEM PANEL 2015-05-04 23:48:38611Xqjkketp HermannCHEM SKCGQ9219-87-25 23:48:0011.3[facility] BlqjejeXETFCZZNMG0406-57-06 23:48:0045.4[facility] SfibgruFCKPBZNKUL2035-37-48 23:48:00 Test Item Value Reference Range Interpretation Comments MCH (test code = MCH) 33.8 pg 27.0-31.0 [facility] BtzaomlUAAYDNZDGQ6579-86-59 23:48:48007.0[facility] HermannHEMATOLOGY 2015-05-04 23:48:008.7[facility] QypyquuXDOKECMJBE2052-10-76 23:48:0033.5[facility] AxwmtwhRFCFXWSKBK4600-61-84 23:48:0015.2[facility] MepggywCVCJMDISER8247-28-83 23:48:004.50[facility] FjtbzgpXZAGZQHKIB9205-57-50 23:48:0012.5[facility] QMNIJZTZSZ6179-78-66 23:48:88488Jqiryekx RoabcntZQVVQOUGBW2266-16-64 23:48:00 14.0[facility] LhzobrmMSABOHHIPXJS5435-46-23 19:10:0011.8[facility] ONWSCWUPIYYW8410-20-73 19:10:89784Buklevqq YabheqrJCOJBPQLYQCV7542-25-01 19:10:87820Ivgwtbjo IjjuohdMNDQFHTOPXUO2405-28-79 19:10:003.8[facility] AZCBMGBFNZGF7557-61-11 19:10:0088[facility] CimzvqbDLXDAPGRQCDT2854-78-22 19:10:00 104[facility] LsfjqcuCEOAESFNTSGB1794-11-23 19:10:0027[facility] HermannELECTROLYTES 2013-05-16 19:10:008.9[facility] NzmhvodHREXEEPGWUEK0130-31-83 19:10:0010[facility] UmlxvsqCKPLLDCSENAQ7916-73-72 19:10:000.9[facility] RkqdqnhXFSXMEFYDT7535-76-08 19:10:000.6[facility] QoxhadcCGUPUKFJFE9539-73-40 19:10:000.1[facility] LGKQSJRTIM7066-61-12 19:10:000.0[facility] BajjfucTFGHOTOLNL0815-95-44 19:10:001.6 [facility] CozvdglPFYWVAYYVA4413-08-63 19:10:007.2[facility] HermannHEMATOLOGY 2013-05-16 19:10:006.2[facility] HekhkiyMQGQSXFLSW5796-43-80 19:10:000.2[facility] EpuwtcuNLUYHKHRAJ2277-52-76 19:10:001.1[facility] VfymamoPLPBDYEBOE1509-95-72 19:10:0014.2[facility] VhinsgiPKXNEPSSGQ0430-85-16 19:10:0076.8[facility] NBMIHYWZWR7075-05-94 19:10:0098.1[facility] MjfissyFVWQYZPURI7045-06-49 19:10:00 13.9[facility] FygsonoUVNURTWPLD9981-16-72 19:10:00 Test Item Value Reference Range Interpretation Comments MCH (test code = MCH) 33.3 pg 27.0-31.0 [facility] KvlzrzuIAZGGVFLEV8191-44-09 19:10:0040.9[facility]annHEMATOLOGY 2013-05-16 19:10:0034.0[facility] EeaysgqEAOMTLGOGA4121-58-23 19:10:34295Jsbqsahv ZqkkaoePLJTKFVTKO5864-35-27 19:10:0013.7[facility] PkqgvzbVZXNBDIDBY9668-70-77 19:10:008.9[facility] YdfplqoNWDFUTCOHG4037-69-15 19:10:004.17[facility] KCMCJHOWLY5206-13-45 19:10:008.0[facility] JraoauuPSSZHMIMUN1961-00-09 08:55:40 Slight *ABN*(09/12/2012 03:55:40)[facility] GppedzlDKDXEDNLUZ0974-25-64 08:55:40 Slight *ABN*(09/12/2012 03:55:40)[facility] EwmihcuKSGVQIHEEN1787-86-42 08:55:40 Slight *ABN*(09/12/2012 03:55:40)[facility] IizllfzVZZOAEVECB0178-48-00 08:55:40 0.0[facility] NandyvnHWCUEPIBYP6441-51-30 08:55:401+ *ABN*(09/12/2012 03:55:40) [facility] PhdbujaVUKHGFLYCB1889-84-15 08:55:400.5[facility]annHEMATOLOGY 2012-09-12 08:55:400.0[facility] DidlnuwCCFNXZYUHD1946 08:55:400.8[facility] QsobdqjTQAIMLMMSZ6873-73-69 08:55:404.6[facility] KckyfdqDGWWOVWDUG7536-78-06 08:55:403.1[facility] TdyyqvoIDISLELKAX3801-54-88 08:55:4015.4[facility] SVEMHGIJYP0530-50-21 08:55:400.0[facility] SulqopvXNDICIRDBL1909-04-90 08:55:400.0 [facility] NfupdqlKSFTFJJAYD2724-22-12 08:55:40Normal (09/12/2012 03:55:40) [facility] WhqknktUTDHOZKOXI0363-49-09 08:55:4092.3[facility]annHEMATOLOGY 2012-09-12 08:55:400.0[facility] IifnluqDBNIWLLCHE4350-06-77 08:55:409.3[facility] GvddbrrGGGCDCMSYI7617-36-92 08:55:4040.0[facility] MjhpwpdMGSUUMLAAF1343-67-67 08:55:4097.4[facility] TtdxpmoEWNBYFPRJU2141-39-60 08:55:40 Test Item Value Reference Range Interpretation Comments MCH (test code = MCH) 32.4 pg 27.0-31.0 H [facility] OmamsolXCVCOPSVCG7316-80-09 08:55:4013.3[facility]annHEMATOLOGY 2012-09-12 08:55:4016.7[facility] AlunazbEFCZBURACC5879-53-49 08:55:404.11[facility] IjwlbgfRYPQJRVDDJ7490-18-87 08:55:4033.3[facility] ErctifdYNPEMZEUCP1531-18-03 08:55:4015.0[facility] FfopoceAKXSOBODPA7712-13-79 08:55:73572Uhtdtyqc [place] APPMYJIGC7961-99-56 17:30:0078[facility] KnxmgqnKXSVUBGEQ9516-49-92 17:30:72929 [facility] CntcnkvKOOUDTBHG9337-83-19 17:30:0027[facility]annCHEMISTRY 2012-09-11 17:30:001.0[facility] WzdhhkdFJIFSBLOH8886-70-20 17:30:009.0[facility] XcpxoikIJXNYYJZR5384-50-91 17:30:78623Yxpfcnty DftxjskHZUBVLVIQ6295-92-60 17:30:004.4[facility] DvqolplJWQHMDNOB9391-84-60 17:30:0015[facility] ITMLBMPMI3091-07-15 17:30:39773Xsymvosa BgtawvzMBONYFXBE0723-01-45 17:30:0014.4 [facility] XldoictLZSVSSISHL0644-98-19 17:30:0014.7[facility]annHEMATOLOGY 2012-09-11 17:30:0096.9[facility] XijjgedNLJLIBIXWM6751-27-45 17:30:0043.9[facility] WtbdjxwVOMPMCTJOE3478-50-49 17:30:0033.4[facility] GesuqmtUMUNMYFCFT3965-98-48 17:30:00 Test Item Value Reference Range Interpretation Comments MCH (test code = MCH) 32.4 pg 27.0-31.0 H [facility] GycaerhEBILLXEHDG7897-55-02 17:30:0015.1[facility]annHEMATOLOGY 2012-09-11 17:30:67973Iurudrac DyjmfcxJDYJLHUGHL8559-54-79 17:30:009.5[facility] WdoekpsKPURJYMCOV9796-30-45 17:30:0018.4[facility] TsrtyelDWXANVQAEH1126-51-22 17:30:004.53[facility] QtehausUJQHWDJKXU1773-02-12 17:30:000.0[facility] JFMGWFCPXD9844-13-31 17:30:000.0[facility] IbmtxcjOHEUCZYNAL8910-21-52 17:30:000.6 [facility] BuqxytqZIOFQQMHPI4591-00-72 17:30:003.2[facility]annHEMATOLOGY 2012-09-11 17:30:0017.1[facility] YmlfvfgWIWBVZSPCN5878-04-29 17:30:000.7[facility] XivphmfGMYNYMMAJS3430-61-30 17:30:000.0[facility] NwvabgbMHTTVJPNSU7650-08-56 17:30:000.0[facility] ExxckmlHFQKXYOYGA0151-19-29 17:30:0092.9[facility] LPKOCPDVFV7709-82-80 17:30:00Normal (09/11/2012 12:30:00)[facility] FCEQZVQPAI8080-59-97 17:30:003.9[facility] LvxraqfPYFLNAONEU5568-18-11 17:30:00 Normal (09/11/2012 12:30:00)[facility]
== END 2020-04-22 09:20 | disposition home or self-care (01) ==
LOC: OR 06:24
PROVIDERS: ATTEND Internal Medicine Gastroenterology
PROC: 0DH63UZ Insertion of Feeding Device into Stomach, Percutaneous Approach (ICD-10-PCS; principal; 2020-04-22 07:30)
PROC: 0DB68ZX Excision of Stomach, Via Natural or Artificial Opening Endoscopic, Diagnostic (ICD-10-PCS; 2020-04-22 07:30)
DX: R13.10 Dysphagia, unspecified (principal); K94.23 Gastrostomy malfunction; J45.909 Unspecified asthma, uncomplicated; J44.9 Chronic obstructive pulmonary disease, unspecified; Z88.2 Allergy status to sulfonamides; K29.80 Duodenitis without bleeding; K44.9 Diaphragmatic hernia without obstruction or gangrene; Z20.822 Contact with and (suspected) exposure to COVID-19
CPT/HCPCS: 88312; 88305; 43246; 43239; U0002; J2704 ×2; J2370; J7120; J0690

== ENCOUNTER 2020-06-05 06:25 | Day surgery (SDC) | payer OTHER ==
[2020-06-05] MEDS ORDERED: OXYMETAZOLINE HCL 0.05% 15ML NAS ONE (07:09)
[2020-06-05] MEDS ORDERED: EPINEPHRINE/PF 1 MG/ML AMP ONE (07:10)
[2020-06-05] MEDS ORDERED: Ringers Lactate 1,000 ML IV ONE ×2 (07:13→08:52)
[2020-06-05] MEDS ORDERED: BOTU TOX TYPE A 100 UNIT/VIAL ID ONE (07:25)
[2020-06-05] MEDS ORDERED: LIDOCAINE 1% W/EPI 1:100,000 MDV 20 ML VIAL ONE (07:34)
[2020-06-05] MEDS ORDERED: FENTANYL CITR 100 MCG/2 ML ONE ×2 (08:21)
[2020-06-05] MEDS ORDERED: propofoL 200 MG/20 ML VIAL IV ONE (08:21)
[2020-06-05] MEDS ORDERED: dexAMETHasone 4 MG/ML VIAL ONE (08:21)
[2020-06-05] MEDS ORDERED: ROCURONIUM 50 MG/5 ML VIAL IV ONE (08:21)
[2020-06-05] MEDS ORDERED: LIDOCAINE 2% MPF 5 ML VIAL ONE (08:21)
[2020-06-05] MEDS ORDERED: NS 0.9% VIAL 10 ML ONE (08:21)
[2020-06-05] MEDS ORDERED: ONDANSETRON 4 MG/2 ML VIAL ONE ×2 (08:21→09:13)
[2020-06-05] MEDS ORDERED: MIDAZOLAM HCL 2 MG/2 ML INJ ONE (08:21)
--- NOTE | 2020-06-05 08:30 | P.BOP ---
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
[2020-06-05] MEDS ORDERED: NEOSTIGMINE 1 MG/ML -5 ML ONE (08:42)
[2020-06-05] MEDS ORDERED: GLYCOPYRROLATE 0.2 MG/ML SYR ONE (08:42)
[2020-06-05] MEDS: MORPHINE 4 MG/ML SYR ONE ×2 (08:50→08:55)
[2020-06-05] MEDS: FENTANYL CITR 100 MCG/2 ML ONE ×2 (09:00→09:05)
[2020-06-05] MEDS ORDERED: MORPHINE 4 MG/ML SYR ONE (09:17)
[2020-06-05 10:21] VITALS: BP 113/64; TEMP 97; O2SAT 96
[2020-06-05] MEDS ORDERED: HYDROCODONE/APAP 7.5/325 MG TAB ONE (11:11)
--- NOTE | 2020-06-05 11:53 | OP ---
Date of Procedure: 06/05/2020 Surgeon: Ester Mendiola MD Application Support Consultant: None. Preoperative Diagnoses: Dysphagia, history of radiation treatment, history of hypopharyngeal cancer, and cricopharyngeal spasm. Postoperative Diagnoses: Dysphagia, history of radiation treatment, history of hypopharyngeal cancer , and cricopharyngeal spasm. Procedure: Direct laryngoscopy with telescope and rigid esophagoscopy with dilation and injection of therapeutic medication. Blood Loss: Minimal. Surgical Findings: Healing appearance of the posterior hypopharyngeal and oropharyngeal wall with th in layer of exudate and fibrinous material without obvious gross tumor. Dilation using bougie dilato rs from 10 mm to 16 mm. 21 units of botulinum toxin to the posterior cricopharyngeal muscle in 3 ali quots of 7 units. Indication For Procedure: Mr. 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 His subsequent staging i ncluded positive lymph nodes and he underwent concurrent chemoradiation treatment completed in late 2019. The patient presented in early May with continued severe dysphagia about 8 weeks fol lowing completion of his radiation treatment. He was pending restaging at that time and a swallow st udy was ordered, which demonstrated severe cricopharyngeal spasm. The risks, benefits, and alternati ves to the procedure were discussed with the patient who agreed to proceed. Procedure In Detail: The patient was brought to the operating room. He was placed under general ane sthesia via oral endotracheal tube. The neck was extended and supported but no shoulder roll was nec essary. The Lilly laryngoscope was used to perform a direct laryngoscopy following exam under anesthesia. Exam findings included no visible or palpable lesions of the lips or buccal mucosa. The patient's maxilla is edent ulous. His remaining mandibular teeth are in moderate to fair condition. He has mild xerostomia wit h dryness of the tongue and clinical findings consistent with black hairy tongue. There are no palpa ble lesions of the tonsillar fossa or base of tongue. The Lilly was advanced and used to examine the base of tongue, vallecula, epiglottis, supraglottis, and hypopharynx. There was mild generalized erythema of the larynx. There was minimal swelling of the epiglottis. The true and false vocal cor ds appear without discrete lesions. The arytenoids and post cricoid area appeared clear. The pirifo rm sinuses appeared clear. The posterior pharyngeal wall in the area of the original tumor appeared to be healing with no evidence of gross residual tumor. There were areas on the left wall and right posterior aspect, which have a thin layer of fibrinous debris. There was no significant friability o f these areas and no discrete ulcerations. A telescope was used to perform a photodocumentation of t hese areas. The Lilly laryngoscope was then removed and preparations were made for esophagoscopy. The rigid esophagus scope was passed through the hypopharynx, but was difficult to advance past the cricopharyngeus due to narrowing. The esophagoscope was then removed. The Lilly laryngoscope was used to elevate the larynx and provide better direct visualization to the esophageal introitus. Und er direct visualization the bougie dilators were sequentially passed with ease through the esophageal antritis starting at 10 mm diameter, advancing to a 16 mm diameter. The sidekick needle was then pr epared with a 1 mL syringe filled with botulinum toxin, which was reconstituted to 7 units per 0.1 mL . Under direct visualization, the tip of the needle was injected submucosally in the posterior aspec t just around the cricopharyngeus muscle. Injections were performed at 8 o'clock, 6 o'clock and 4 o' clock with 0.1 mL per injection for a total dose of 21 units of botulinum toxin. A pledget was appli ed to these areas for control of hemostasis. After several moments, the pledget was removed and the area was re-examined. There was no additional bleeding noted from deeper within the esophagus and th e area of the hypopharynx was again carefully examined. The small area of fibrinous debris was sucti oned and decision was made to forego biopsy. My suspicion is the patient is continuing to heal follo wing completion of his radiation approximately 3 months ago. The patient continues to use tobacco wi th unwillingness to quit, which I suspect is resulting in slow healing and slow recovery from his can cer treatment. At the conclusion of the procedure, all counts were verified and correct. The instru mentation was removed and there was no evidence of injury to the gums or lips. The patient was retur reginaldo to care of Anesthesia for awakening and extubation in the operating room, which proceeded without difficulty. Disposition: The patient will be discharged home in the care of his family and resume PEG tube feedi ngs. Starting in 24 hours he can resume oral trials as tolerated. Plan: Due to the operative findings of inadequately healed hypopharyngeal cancer and difficulty with examination of this area in the clinic setting due to the location, I will plan to repeat the greer t's direct laryngoscopy in the operating room in 6 weeks. I will strongly recommend the patient sust ain from smoking during that period of time. If this area is not completely healed, I will plan to p erform biopsies at that time. If biopsy-proven recurrence is noted, the patient will require salvage surgical therapy and be referred [facility]. I recommend we proceed with rest aging since his PET scan this week was not completed. I would defer scanning for approximately 2 wee ks to allow for recovery of local inflammatory changes associated with his procedure today. ISSAC/SURYA Voice ID: [id number] Report ID: [id number]
== END 2020-06-05 10:17 | disposition home health service (06) ==
LOC: OR 06:25
PROVIDERS: ATTEND Otolaryngology
PROC: 3E0G8GC Introduction of Other Therapeutic Substance into Upper GI, Via Natural or Artificial Opening Endoscopic (ICD-10-PCS; 2020-06-05)
PROC: 0C7S8ZZ Dilation of Larynx, Via Natural or Artificial Opening Endoscopic (ICD-10-PCS; principal; 2020-06-05 07:30)
DX: R13.12 Dysphagia, oropharyngeal phase (principal); Z20.822 Contact with and (suspected) exposure to COVID-19; Z85.818 Personal history of malignant neoplasm of other sites of lip, oral cavity, and pharynx; Z92.3 Personal history of irradiation
CPT/HCPCS: 31528; 43192; U0003; J2704; J1100; J0585; J2250; J3010 ×3; J2710; J7120 ×2; J2405 ×2; J0171

== ENCOUNTER 2020-06-16 09:47 | Emergency (ER) | payer OTHER ==
--- OUTSIDE RECORDS SUMMARY | 2020-06-16 09:54 | XMS REPORT | Continuity of Care Document ---
:1945 Author Organization [facility] t Address [address] [place] [address] Care Team Providers Name Role Phone Mj Wyatt Attending Clinician Best Prince Attending Clinician Josy Attending Clinician Holley Calzada Attending Clinician Jefe Payan Attending Clinician Kannan Attending Clinician Mu Villasenor Attending Clinician Lele Attending Clinician Ishfaq Admitting Clinician Holley Calzada Admitting Clinician Jefe [...] Active 10/19/2016 Problem 06/18/2018 Data migrated from Dhingana on 12/27/2016 . Originally documented as Essential tremor.Bud a migrated from Dhingana on 11/02/2016 . Originally documented as Essential tremor.Bud a migrated from Dhingana on 05/12/2016 . Originally documented as Essential tremor. [facility] HEADACHE Diagnosis Active 2016-07-04 M emoria 06-21 22:02:00 l HEADACHE 00:00: Shravan n 00 Active 06/21/2016 [facility] FOOT PAIN Diagnosis Active 2016-05-22 Memoria OR INJURY 05-17 20:01:00 l FOOT 00:00: [place] PAIN OR 00 INJURY Active 05/17/2016 [facility] WOUND Diagnosis Active 2016-05-30 Mem oria 1- 09:23:00 l WOUND 08:00: Damien 00 Active 03/13/2016 [facility] ACUTE Diagnosis Active 2015-07-21 Mem oria RESPIRATOR - 11:54:00 l Y FAILURE, ACUTE 00:00: Danielle nn ACUTE RESPIRATOR 00 RESPIRA Y FAILURE, ACUTE RESPIRA Active 07/15/2015 [facility] SHORTNESS Diagnosis Active 2015-07-15 Memoria OF BREATH 5- 18:29:00 l 00:00: Damien SHORTNESS 00 OF BREATH Active 07/15/2015 [facility] PCP Diagnosis Active 2015-07-13 Mem oria SENT/WEAKN - 19:58:00 l ESS PCP 00:00: Damien SENT/WEAKN 00 ESS Active 07/13/2015 [facility] ACUTE COPD Diagnosis Active 2015-07-14 Memoria EXACERBATI - 08:45:00 l ON ACUTE 00:00: Damien COPD 00 EXACERBATI ON Active 6 [facility] COPD Diagnosis Active 2015-05-13 Mem oria 2- 22:05:00 l COPD 07:00: [place] 00 Active 05/04/2015 [facility] 305.1 - Diagnosis Active 2014-07-31 Me moria TOBACCO 07-29 14:03:00 l USE DIS 305.1 - 00:01: Shravan n TOBACCO 00 USE DIS Active 07/29/2014 [facility] TOBACCO Condition Active 2014-07-23 Me moria ABUSE 07-25 07:58:30 l TOBACCO 00:00: [place] ABUSE 00 Active 07/25/2014 [facility] Tobacco Problem Active 2018-06-18 Xiang bethany dependence 07-25 11:05:32 l syndrome Tobacco 00:00: Danielle nn (disorder) dependence 00 syndrome (disorder) Active 07/25/2014 Problem 06/18/2018 Data migrated from [employer] on 09/17/14.Bud a migrated from [employer] on 08/12/14. [facility] LOSS OF Condition Active 2014-07-23 Ks moria WEIGHT 07-23 07:58:30 l LOSS OF 00:00: [place] WEIGHT 00 Active 07/23/2014 [facility] CAROTID Condition Active 2014-07-23 Me moria BRUIT, 07-23 07:58:30 l RIGHT CAROTID 00:00: [place] BRUIT, 00 RIGHT Active 07/23/2014 [facility] Carotid Problem Active 2018-06-18 Xiang bethany bruit 07-23 11:05:32 l (finding) Carotid 00:00: Herm martha bruit 00 (finding) Active 07/23/2014 Problem 06/18/2018 Data migrated from [employer] on 09/17/14.Bud a migrated from [employer] on 08/12/14. [facility], [facility] Weight Problem Active 2018-06-18 Memor ia decreased 07-23 11:05:32 l (finding) Weight 00:00: Danielle nn decreased 00 (finding) Active 07/23/2014 Problem 06/18/2018 Data migrated from [employer] on 09/17/14.Bud a migrated from [employer] on 08/12/14. [facility] PNEUMONIA Diagnosis Active 2014-04-25 Memoria 04-25 11:22:00 l 00:00: [place] PNEUMONIA 00 Active 04/25/2014 [facility] COPD Diagnosis Active 2014-05-02 Mem oria EXACERBATI 04-25 16:47:00 l ON COPD 00:00: [place] EXACERBATI 00 ON Active 5 [facility] RASH Diagnosis Active 2013-032014-02-21 Mem oria 04-24 17:08:00 l RASH 00:00: Damien 00 Active 02/21/2014 [facility] CELLULITIS Diagnosis Active 2013-032014-03-05 Memoria FAILED 04-24 16:34:00 l OUTPATIENT 00:00: Shravan n THERAPY CELLULITIS 00 FAILED OUTPATIENT THERAPY Active 02/21/2014 [facility] HYPOTHYROI Condition Active 2014-07-23 Memoria DISM 11-26 07:58:30 l 00:00: [place] HYPOTHYROI 00 DISM Active 11/26/2013 Condition 5 [...] Mem oria 11-26 07:58:30 l COPD 00:00: [place] 00 Active 11/26/2013 [facility] Chronic Problem Active 2018-06-18 Xiang bethany obstructiv 11-26 11:05:32 l e lung Chronic 00:00: [place] disease obstructiv 00 (disorder) e lung disease (disorder) Active 11/26/2013 Problem 06/18/2018 Data migrated from [employer] on 09/17/14.Bud a migrated from [employer] on 08/12/14.Bud a migrated from [employer] on 08/12/14. [facility], [facility], [facility] Hypogonadi Problem Active 2018-06-18 M emoria sm 11-26 11:05:32 l (disorder) 00:00: Shravan n Hypogonadi 00 sm (disorder) Active 11/26/2013 Problem 06/18/2018 Data migrated from [employer] on 09/17/14.Bud a migrated from [employer] on 08/12/14.Bud a migrated from [employer] on 08/12/14. [facility] Osteoporos Problem Active 2018-06-18 M emoria is 11-26 11:05:32 l (disorder) 00:00: Shravan n Osteoporos 00 is (disorder) Active 11/26/2013 Problem 06/18/2018 Data migrated from [employer] on 09/17/14.Bud a migrated from [employer] on 08/12/14.Bud a migrated from [employer] on 08/12/14. Tita [facility] Peripheral Problem Active 2018-06-18 M emoria vascular 11-26 11:05:32 l disease 00:00: [place] (disorder) Peripheral 00 vascular disease (disorder) Active 11/26/2013 Problem 06/18/2018 Data migrated from [employer] on 09/17/14.Bud a migrated from [employer] on 08/12/14.Bud a migrated from [employer] on 08/12/14. Tita [facility] DYSPNEA Diagnosis Active 2012-09-12 Me moria 03-13 13:24:00 l DYSPNEA 08:00: Damien 00 Active 03/13/2012 [facility] CELLULITIS Diagnosis Active 2014-03-05 Memoria NOS 16:34:00 l [place] CELLULITIS NOS Active [facility] CHRONIC Diagnosis Active 2015-05-13 Ks moria OBSTRUCTIV 22:05:00 l E PULMON CHRONIC Danielle nn DISEASE W OBSTRUCTIV ACU E PULMON DISEASE W ACU Active [facility] ACUTE Diagnosis Active 2015-07-21 Mem oria RESPIRATOR 11:54:00 l Y FAILURE, ACUTE Danielle nn UNSP W RESPIRATOR HYPOXI Y FAILURE, UNSP W HYPOXI Active [facility] Cellulitis Problem Resolve 2018-06-18 Memoria (disorder) d 11:05:32 l Damien Cellulitis (disorder) Resolved Problem 06/18/2018 [facility] History of Problem Resolve 2018-06-18 Memoria - d 11:05:32 l musculoske History Her ruiz letal of - disease musculoske (context-d letal ependent disease category) (context-d ependent category) Resolved Problem 06/18/2018 [facility] Hypothyroi Problem Resolve 2018-06-18 Memoria dism d 11:05:32 l (disorder) Shravan n Hypothyroi dism (disorder) Resolved Problem 06/18/2018 [facility] COPD Problem Resolve 2012-09-14 Xiang bethany d 21:37:11 l COPD Damien Resolved Problem 09/14/2012 [facility] Hypertensi Problem Active 2018-06-18 M emoria ve 11:05:32 l disorder, Damien systemic Hypertensi arterial ve (disorder) disorder, systemic arterial (disorder) Active Problem 06/18/2018 [facility] Peripheral Problem Active 2018-06-18 M emoria arterial 11:05:32 l occlusive [place] disease Peripheral (disorder) arterial occlusive disease (disorder) Active Problem 06/18/2018 [facility], [facility] Poor Problem Active 2018-06-18 Memor ia short-term 11:05:32 l memory Poor Damien (finding) short-term memory (finding) Active Problem 06/18/2018 [facility] Smoker Problem Active 2018-06-18 Memor ia (finding) 11:05:32 l Smoker Damien (finding) Active Problem 06/18/2018 [facility] Cellulitis Diagnosis Active 2017-02-18 Memoria of right 03:46:09 l lower limb Shravan n Cellulitis of right lower limb Active Diagnosis 02/18/2017 [facility] RESPIRATOR Diagnosis Active 2012-09-12 Memoria Y ABNORM 13:24:00 l NEC [place] RESPIRATOR Y ABNORM NEC Active [facility] CHR AIRWAY Diagnosis Active 2014-05-02 Memoria OBSTRUCT 16:47:00 l NEC CHR [place] AIRWAY OBSTRUCT NEC Active [facility] Erysipelas Problem Resolve 2013-032018-06-182018-062018-06-18 Memoria (disorder) d 2- 11:05:32 11:05:32 l 00:00: Damien Erysipelas 00 (disorder) Resolved 02/18/2014 Problem 06/18/2018 Data migrated from [facility] on 09/26/14. [facility], [facility] History of Past Illness Condition Condition [...] Memoria e 04-21 07:58:30 07:58:30 l 00:00: [place] ERYSIPELAS 00 Inactive 02/18/2014 Condition 5 [facility] SEBORRHEIC Condition Inactiv 2014-07-23 2014-07-23 Memoria [...] Condition Inactiv 2014-07-23 2014-07-23 Memoria SKIN, e 16 07:58:30 07:58:30 l UNCERTAIN 00:00: Damien BEHAVIOR NEOPLASM, 00 SKIN, UNCERTAIN BEHAVIOR Inactive 11/26/2013 [facility] Allergies, Adverse Reactions, Alerts Allergy Allergy Status Severity Reaction(s) Onset Inactive Treating Comm ents Source Name Type Date Date Clinician cedric DA Active U 2019-03 [facility] [place] 00:00: [address] N[place] N[place]A[facility] Active Info Not Xiang bethany Available 3- l 00:00: [place] 00 cephalex cephalex Active Memori a in<sup>2 in<sup>2 1-09 l , 3, , 3, 06:00: [place] 4</sup> 4</sup> 00 cephalex cephalex Active Memori a in<sup>1 in<sup>1 1-02 l , , 06:00: Damien 2</sup> 2</sup> 00 KEFLEX KEFLEX Active Memoria 1-02 l 00:00: [place] 00 sulfa sulfa Active Moderate Memoria drugs<arboleda [...] 1 CAPSULE BY MOUTH TWICE DAILY, Pharmacy: [facility] [id number] primidone Yes See Memoria 50 mg oral 3-26 Instructio l tablet 18:35: ns, 4 tabs Danielle nn 00 twice a day, # 720 tab, 3 Refill(s), Pharmacy: [facility] Megestrol Yes See Memoria Acetate 40 3-02 Instructio l MG/ML Oral 21:38: ns, # 600 He rmann Suspension 36 mL, SHAKE WELL AND TAKE 20 ML BY MOUTH EVERY DAY, Pharmacy: [facility] [id number] rivastigmin No 1.5 mg = 1 Memoria e 1.5 mg 2-12 cap, PO, l oral 22:23: BID, # 60 [place] capsule 00 cap, 3 Refill(s), Pharmacy: [facility] [id number] diazepam 2 Yes 2 mg = 1 Mem oria mg oral 1-31 tab, PO, l tablet 18:07: Daily, PRN Danielle nn 00 Tremor, X 30 day, # 30 tab, 3 Refill(s) clopidogrel 2016-03 Yes NELL 1 tab(s) M emoria 2-09 JIMY l 03:46: potassium 2016-03 Yes NELL 1 tab Memori a 2- JIMY l 03:46: prednisolon 2016-03 Yes NELL 5 mL Memor ia e -09 JIMY l 03:46: levofloxaci 2016-03 Yes NELL 1 tab(s) M emoria n 2- JIMY l 03:46: Furosemide 2016-03 Yes NELL 1 tab Memor ia - JIMY l 03:46: Enoxaparin No Notes: Memor ia 4-19 (Same as: l 14:00: Lovenox) Miralax No Notes: Memoria 4-18 Dissolve l 18:31: in 8 oz of [...] 0 Refill(s) Nystatin Yes 500,000 Memori a [id number] 4-17 unit = 5 l UNT/ML Oral 17:15: mL, Shravan n Suspension 00 S&SPIT, QID, X 7 day, # 140 mL, 0 Refill(s) amLODIPine Yes 10 mg = 1 Me moria 10 mg oral 4-17 tab, PO, l tablet 17:15: Daily, # [place] 00 30 tab, 0 Refill(s) metoprolol No Notes: Memor ia tartrate 4-16 (Same as: l 02:00: Lopressor) Levaquin No 500 mg, 1 Xiang bethany 4-15 tab, l 20:00: Route: PO, Drug form: TAB, [id number], Dosing Weight 71.682, kg, Start date: 06/25/16 [...] (Same as: l 14:00: MaxEPA, Damien 00 [place] 3 fish oil ) Non-Formul stefania Drug Vitamin C No Notes: Memori a 4-15 (Same as: l 14:00: Vitamin C) Damien 00 Spiriva No Notes: Memoria 4-15 (Same [...] bethany n 4-13 (Same l 02:00: as:Levaqui [place] 00 n) Levofloxaci No Notes: Xiang bethany [...] M emoria -12 MEDICATION l 15:00: WASTE Damien Product Size: 1000 mg Product Wasted: _0__ mg Hydralazine No 10 mg, 0.5 Memoria 4-12 mL, Route: l 10:35: IVP, Drug form: INJ, Q4H, Dosing Weight 71.682, kg, PRN Hypertensi on, Start date: 06/22/16 5:35:00 CDT, Duration: 30 day, Stop date: 07/22/16 5:34:00 CDT Dilaudid No Notes: Memoria 4-12 Same as l 10:34: Dilaudid Albuterol No Notes: Memori a 0.833 MG/ML 12 (Same as: l 07:00: Duoneb) Ipratropium 00 [place] 0.167 MG/ML Inhalant Solution Nystatin No 500,000 Memori a [id number] 4-12 unit, 5 l UNT/ML Oral 05:00: mL, Route: [place] Suspension 00 S&SPIT, Drug form: SUSP, QID, Dosing Weight 71.682, kg, Start date: 06/22/16 0:00:00 CDT, Duration: 30 day, Stop date: 07/21/16 21:00:00 CDT Albuterol No Notes: SEE Me moria 0.83 MG/ML 4-12 RT l Inhalant 04:08: DOCUMENTAT Her ruiz Solution 00 ION (Same as: Proventil) Enoxaparin No Notes: Memor ia 4-12 (Same as: l 04:00: Lovenox) Damien Albuterol No 2.49 mg, Xiang bethany 0.83 MG/ML 12 Route: l Inhalant 03:54: NEB, PRN, Herm martha Solution 00 Dosing Weight 71.682, kg, PRN Respirator y Protocol, Start date: 06/21/16 22:54:00 CDT, Duration: 30 day, Stop date: 07/21/16 22:53:00 CDT Albuterol No 3 mL, Memoria 0.833 MG/ML 12 Route: l / 03:54: NEB, Damien Ipratropium 00 Dosing [place] Weight 0.167 MG/ML 71.682, Inhalant kg, PRN, Solution PRN Respirator y Protocol, Start date: 06/21/16 22:54:00 CDT, Duration: 30 day, Stop date: 07/21/16 22:53:00 CDT Guaifenesin No Notes: Xiang bethany 4-12 (Same as: l 03:54: Robitussin [place] 00 ) Sodium No 1,000 mL, Memori a Chloride 12 Rate: 125 l 0.154 03:51: ml/hr, Damien MEQ/ML 00 Infuse Injectable over: 8 Solution hr, Route: IV, Dosing Weight 71.682 kg, Total Volume: 1,000, Start date: 06/21/16 22:51:00 CDT, Duration: 30 day, Stop date: 07/21/16 22:50:00 CDT Saline No 10 ml, Memoria Flush 0.9% 12 Route: l 03:51: IVP, Drug [place] 00 Form: INJ, Dosing Weight 71.682, kg, PRN, PRN Line Flush, Start date: 06/21/16 22:51:00 CDT, Duration: 30 day, Stop date: 07/21/16 22:50:00 CDT Acetaminoph 2016- No 100.4 F, M emoria en 4-12 Start l 03:51: date: Damien 06/21/16 22:51:00 CDT, Duration: 30 day, Stop [...] 06-22 (Same as: :12: Duoneb) Ipratropium 00 [place] 0.167 MG/ML Inhalant Solution [DuoNeb] Acetaminoph No [...] trevor 11 (Same as: l 20:38: Reglan) [place] 00 Sodium No 1,000 mL, Memori a Chloride 06-21 1000 l 0.154 20:38: ml/hr, [place] MEQ/ML 00 Infuse Injectable Over: 1 Solution hr, Route: IV, 1,000, Drug form: INJ, ONCE, Priority: STAT, Dosing Weight 69.091 kg, Start date: 06/21/16 15:38:00 CDT, Duration: 1 doses or times, Stop date: 06/21/16 15:38:00 CDT Saline No Notes: Memoria Flush 0.9% 06-21 (Same as: l 19:29: BD Posiflush) Doxycycline No Notes: Xiang bethany 05-18 (Same as: l 21:00: Vibramycin ) No milk/antac ids/iron. Ciprofloxac No Notes: May Memoria in -08 interfere l 21:00: w/enteral [place] 00 feedings - Take 1 hr before or 2 hrs after antacids, dairy pdt & minerals. On empty stomach. minocycline Yes 100 mg = 1 Memoria 100 mg oral 308 cap, PO, l capsule 20:20: Q12H, X 30 Herm day, # 60 cap, 0 Refill(s), Pharmacy: [facility] [id number] ciprofloxac Yes 500 mg = 1 Memoria in 500 mg 3-08 tab, PO, l oral tablet 20:20: Q12H, X 30 Damien 00 day, # 60 tab, 0 Refill(s), Pharmacy: [facility] [id number] Nicotine No Notes: Memoria 3-08 (Same as: l 15:00: Habitrol) Damien 00 "Remove old patch before applicatio n of new patch" WASTE: F/P - P Waste Black; E - P Waste Black Protonix No Notes: Memoria 3-08 Tablet l 13:30: should not [place] 00 be chewed or crushed. (Same as: Protonix) vancomycin No 2001 mg: Me moria + sodium 3-08 infuse l chloride 12:30: over 2.5 Danielle nn 0.9% INJ 00 hours 250 mL MEDICATION WASTE Product Size: 1000 mg Product Wasted: _0__ mg Cleocin HCl No 600 mg, 50 Memoria 3-08 mL, Route: l 03:30: IVPB, Drug [place] 00 form: INJ, ABXQ8H, Start date: 05/17/16 21:30:00 RESEARCH INTERVIEWER, Duration: 30 day, Stop date: 06/16/16 13:30:00 [...] 18 Memoria 3-08 microgram, l 01:56: INHALATION [place] 00 , Daily, # 30 ea, 0 Refill(s) vitamin E Yes 400 Memoria 400 intl 308 IntlUnit = l units oral 01:56: 1 cap, PO, H ermann capsule 00 Daily, # 100 cap, 0 Refill(s) predniSONE Yes See Memoria 50 mg oral 3-08 Instructio l tablet 01:56: ns, PRN [place] 00 Allergies, 1 tab PO PRN asthma [...] Acetaminoph No Notes: Do M emoria en -07 not exceed l 22:41: 4 gm/day. (Same [...] / 3-07 (Same as: l Hydrocodone 22:41: [place] Danielle nn Bitartrate 00 325/5) Do 5 MG Oral not exceed Tablet 4gm/day of [Empire acetaminop 5/325] hen. Acetaminoph No Notes: Do M emoria en 325 MG / 07 not exceed l Hydrocodone 22:41: 4gm/day of Damien Bitartrate acetaminop 10 MG Oral hen. Tablet (Same as: [Empire [place] 10/325] 325/10) Lorazepam No Notes: Memori a 3-07 (Same as: l 22:41: Ativan) Morphine No 1 mg, 0.5 Xiang bethany 3-07 mL, Route: l 22:41: IVP, Drug form: SOLN, Q4H, Dosing Weight 74.545, kg, PRN Pain Score 7-10, if unable to take po, Start date: 05/17/16 16:41:00 RESEARCH INTERVIEWER, Duration: 30 day, Stop date: 06/16/16 16:40:00 CDT Albuterol No Notes: Memori a 0.833 MG/ML 05-17 (Same as: l 22:41: Duoneb) Ipratropium [place] 0.167 MG/ML Inhalant Solution Vancomycin No 1,118.175 Me moria 3-07 mg, Route: l 22:39: IVPB, ABXQ8H, Dosing Weight 74.545, kg, TIME CRITICAL MEDICATION , Priority: STAT, Start date: 05/17/16 16:39:00 RESEARCH INTERVIEWER, Duration: 30 day, Stop date: 06/16/16 8:39:00 CDT Clindamycin No 600 mg, Mem oria 3-07 Route: l 22:39: IVPB, [place] 00 ABXQ8H, Dosing Weight 74.545, kg, Priority: STAT, Start date: 05/17/16 16:39:00 RESEARCH INTERVIEWER, Duration: 30 day, Stop date: 06/16/16 8:39:00 CDT Saline No Notes: Memoria Flush 0.9% 05-17 (Same as: l 22:39: BD Posiflush) Sodium No 1,000 mL, Memori a Chloride 3-07 Rate: 100 l 0.154 22:39: ml/hr, Damien MEQ/ML Infuse Injectable over: 10 Solution hr, Route: IV, Dosing Weight 74.545 kg, Total Volume: 1,000, Start date: 05/17/16 16:39:00 RESEARCH INTERVIEWER, Duration: 30 day, Stop date: 06/16/16 16:38:00 CDT Acetaminoph No 100.4 F, M emoria en 307 Start l 22:39: date: Damien 00 05/17/16 16:39:00 RESEARCH INTERVIEWER, Duration: 30 day, Stop date: 06/16/16 16:38:00 CDT Clindamycin No 600 mg, 50 Memoria 3-07 mL, Route: l 18:31: IVPB, Drug form: INJ, ONCE, Dosing Weight 74.545, kg, Priority: STAT, Start date: 05/17/16 12:31:00 RESEARCH INTERVIEWER, Stop date: 05/17/16 12:31:00 RESEARCH INTERVIEWER Symbicort Yes 2 puff, Memor ia 160/4.5 [...] mg oral 5-09 Special l tablet 15:35: Instructio Danielle nn [...] Albuterol No Notes: Memori a 0.833 MG/ML 5-07 (Same as: l / 19:00: Duoneb) Damien Ipratropium 00 [place] 0.167 MG/ML Inhalant Solution [DuoNeb] Acetylcyste No 200 mg, 1 M emoria ine 200 5-07 mL, Route: l MG/ML 19:00: NEB, Drug [place] Inhalant 00 Form: Solution SOLN, Dosing Weight 68.182, kg, RQ6H, Start date: 07/18/15 14:00:00 CDT, Duration: 30 day, Stop date: 08/17/15 8:00:00 CDT Symbicort No Notes: Memori a 160/4.5 07-17 (Same as: l inhalation 16:42: Symbicort) H ermann aerosol WASTE: with Aerosol - adapter Return to Pharmacy Spiriva No Notes: Memoria - (Same As: l 16:42: Spiriva) [place] 00 remove No Notes: Memoria patch 07-17 WASTE: F/P l 02:00: - P Waste Damien 00 Black; E - P Waste Black Ipratropium No Notes: SEE Memoria [place] 0.2 5-05 RT l MG/ML 16:00: DOCUMENTAT Shravan n Inhalant 00 ION (Same Solution as:Atroven t) Levalbutero No Notes: SEE Memoria l 5-05 RT l 16:00: DOCUMENTAT Damien 00 ION (Same as:Xopenex ) Non-Formul stefania Nicotine No Notes: Memoria 5-05 (Same as: l 14:00: Habitrol) Damien WASTE: F/P - P Waste Black; E - P Waste Black Ipratropium No Notes: SEE Memoria [place] 0.2 5-05 RT l MG/ML 12:00: DOCUMENTAT Shravan n Inhalant 00 ION (Same Solution as:Atroven t) Acetylcyste No 200 mg, 1 M emoria ine 200 5-05 mL, Route: l MG/ML 12:00: NEB, Drug Damien Inhalant 00 Form: Solution SOLN, Dosing Weight 68.182, kg, RQID, Start date: 07/16/15 7:00:00 CDT, Duration: 30 day, Stop date: 08/14/15 19:00:00 CDT methylPREDN No Notes: Xiang bethany ISolone 5-05 (Same l SODium 11:00: as:Solu-ME Danielle nn SUCCinate 00 DROL, A-Methapre d) Albuterol No Notes: Memori a 0.833 MG/ML 5-05 (Same as: l / 07:00: Duoneb) Damien Ipratropium 00 [place] 0.167 MG/ML Inhalant Solution Levalbutero No Notes: SEE Memoria l 5-05 RT l 07:00: DOCUMENTAT [place] 00 ION (Same as:Xopenex ) Non-Formul stefania methylPREDN No Notes: Xiang bethany ISolone 5-05 (Same l 03:30: as:Solu-ME [place] 00 DROL, A-Methapre d) methylPREDN No Notes: Xiang bethany ISolone 5-05 (Same l SODium 03:00: as:Solu-ME Danielle nn SUCCinate 00 DROL, A-Methapre d) atorvastati No Notes: Xiang bethany n 5-05 (Same As: l 03:00: Lipitor) Damien Plavix No Notes: Memoria 5-05 (Same As: l 03:00: Plavix) Damien 00 Levaquin No Notes: Memoria 5-05 (Same l 03:00: as:Levaqui [place] 00 n) Ativan No Notes: Memoria 5-05 (Same as: l 02:46: Ativan) Albuterol No Notes: SEE Me moria 0.83 MG/ML 5-05 RT l Inhalant 02:13: DOCUMENTAT Her ruiz Solution 00 ION (Same as: Proventil) Enoxaparin No Notes: Memor ia 5-05 (Same as: l 02:00: Lovenox) [place] 00 Albuterol No Notes: Memori a 0.833 MG/ML 5-05 (Same as: l 01:16: Duoneb) Damien Ipratropium 00 [place] 0.167 MG/ML Inhalant Solution Sodium 2016-0 No 25 mL, Memoria Chloride 5-04 Route: IV, l 0.9% IV 23:14: Start [place] date: 07/15/15 18:14:00 CDT, Duration: 30 day, Stop date: 08/14/15 18:13:00 CDT, PRN Line Flush BD Normal No Notes: Memori a Saline 5-04 (Same as: l Flush 23:14: BD [place] 00 Posiflush) Ipratropium No 500 Memori a 5-04 microgram, l 23:11: Route: Damien 00 NEB, ONCE, Dosing Weight 68.182, kg, Start date: 07/15/15 18:11:00 CDT, Stop date: 07/15/15 18:11:00 CDT Xopenex No Notes: Memoria 5-04 Same as: l 23:11: Xopenex Damien 00 Non-Formul stefania High Concentrat ed (0.5ml) SEE RT DOCUMENTAT ION Lorazepam No Notes: Memori a 5-04 (Same as: l 23:10: Ativan) Damien 00 Sodium No 1,000 mL, Memori a Chloride 5-04 1,000 l 0.154 23:05: ml/hr, [place] MEQ/ML 00 Infuse Injectable Over: 1 Solution hr, Route: IV, 1,000, Drug form: INJ, ONCE, Priority: STAT, Dosing Weight 68.182 kg, Start date: 07/15/15 18:05:00 CDT, Duration: 1 doses or times, Stop date: 07/15/15 18:05:00 CDT Magnesium No Notes: Memori a Sulfate - WASTE: F/P l 23:05: - Sink; E [place] 00 - Municipal Trash Bin Albuterol No Notes: Memori a 0.833 MG/ML -04 (Same as: l / 23:05: Duoneb) Damien Ipratropium 00 [place] 0.167 MG/ML Inhalant Solution [DuoNeb] Brovana No Notes: SEE Xiang bethany 5-04 RT l 13:00: DOCUMENTAT [place] 00 ION Same as Brovirginia villatoro No Notes: Xiang bethany n 5-04 (Same As: l 02:00: Lipitor) Plavix No Notes: Memoria 5-04 (Same As: l 02:00: Plavix) Levofloxaci Yes 750 mg = 1 Memoria n 750 MG 5-03 tab, PO, l Oral Tablet 20:01: Q24H, X 10 [place] [Levaquin] 00 day, # 10 tab, 0 Refill(s) predniSONE Yes 40 mg = 2 Me moria 20 mg oral 5-03 tab, PO, l tablet 20:01: Daily, X 5 Danielle nn 00 day, # 10 tab, 0 Refill(s) Brovana No Notes: SEE Xiang bethany - RT l 13:00: DOCUMENTAT Damien 00 ION Same as Brovana Protonix No Notes: Memoria 5-03 Tablet l 12:30: should not be chewed or crushed. (Same as: Protonix) Albuterol No Notes: Memori a 0.833 MG/ML 07-13 (Same as: l / 07:00: Duoneb) Ipratropium 00 [place] 0.167 MG/ML Inhalant Solution Solu-Medrol No Notes: Xiang bethany - (Same l 07:00: as:Solu-ME [place] 00 DROL, A-Methapre d) Melatonin No Notes: Memori a - (Same as: l 05:40: Melatonin) Acetaminoph No Notes: Do M emoria en 325 MG / - not exceed l Hydrocodone 05:39: 4gm/day of Damien Bitartrate 00 acetaminop 10 MG Oral hen. Tablet (Same as: [[place] 10/325] 325/10) Hydralazine No Notes: Xiang bethany -03 (Same as: l 05:39: Apresoline ) Push over 5 minutes Acetaminoph No Notes: Do M emoria en - not exceed l 05:39: 4 gm/day. Damien [...] l 05:39: Ativan) Flagyl No Notes: Memoria -03 (Same as: l 05:32: Flagyl) Avoid alcohol. [...] microgram l MG/ML 00:53: = 2 mL, [place] Inhalant 00 NEB, BID Solution [Brovana] Saline No Notes: Memoria Flush 0.9% 07-13 (Same as: l 00:47: BD Posiflush) Sodium No 1,000 mL, Memori a Chloride 5-03 Rate: 75 l 0.154 00:47: ml/hr, Damien MEQ/ML 00 Infuse Injectable over: 13.3 Solution hr, Route: IV, Dosing Weight 71.932 kg, Total Volume: 1,000, Start date: 07/13/15 19:47:00 CDT, Duration: 30 day, Stop date: 08/12/15 19:46:00 CDT Morphine No Notes: Memoria 5-03 (Same l 00:47: as:MORPhin [place] 00 e Sulfate) Acetaminoph No Notes: Xiang bethany en 325 MG / 5-03 (Same as: l Hydrocodone 00:47: [place] Danielle nn Bitartrate 00 325/5) Do 5 MG Oral not exceed Tablet 4gm/day of acetaminop hen. Docusate No Notes: Memoria 5-03 (Same as: l 00:47: Colace) Ondansetron No Notes: Xiang bethany 5-03 (Same as: l 00:47: Zofran) MEDICATION WASTE Product Size: 4 mg Product Wasted: _0__ mg Roflumilast No 0 Memori a 0.5 MG Oral 5-03 Refill(s) l Tablet 00:38: Damien [Daliresp] 00 Albuterol No 0 Memoria 0.833 MG/ML 5-03 Refill(s) l / 00:38: Damien Ipratropium 00 [place] 0.167 MG/ML Inhalant Solution atorvastati Yes 10 [...] 5-02 (Same as: l / 20:50: Duoneb) [place] Ipratropium 00 [place] 0.167 MG/ML Inhalant Solution methylPREDN No Notes: Xiang bethany ISolone 5- (Same l SODium 20:50: as:Solu-ME Danielle nn SUCCinate 00 DROL, A-Methapre d) Saline No Notes: Memoria Flush 0.9% - (Same as: l 20:50: BD [place] 00 Posiflush) Doxycycline No 100 mg, Mem [...] [facility] methylPREDN No Notes: Xiang bethayn ISolone 2- (Same l SODium 06:00: as:Solu-ME Danielle nn SUCCinate 00 DROL, A-Methapre d) Albuterol No Notes: Memori a 0.833 MG/ML 05-05 (Same as: l / 01:00: Duoneb) [place] Ipratropium 00 [place] 0.167 MG/ML Inhalant Solution [DuoNeb] BD Normal No Notes: Memori a Saline - (Same as: l Flush 23:43: BD Damien 00 Posiflush) Sodium No IV, 0 Memoria Chloride 2-22 ml/hr, l 0.9% IV 23:42: PRN, PRN Shravan n 00 Line Flush, Start date: 05/04/15 17:42:00, Duration: 30, 25 ml Levaquin No Notes: Memoria 2-22 (Same l 23:00: as:Levaqui [place] 00 n) Tessalon No Notes: Memoria Perles [...] 1-02 twice l TABS 00:00: daily for [place] 14 days PREDNISONE No 4 po daily [...] 9-16 twice a l MCG/ACT 00:00: day. ALENDRONATE Yes 1 po Memori a SODIUM [...] 3-07 mL, Route: l 18:00: IV, Drug [place] 00 form: INJ, Q6H, Start date: 05/17/13 [...] 306 Route: l MG/ML 22:00: NEB, Drug Damien Inhalant 00 Form: Solution SOLN, Dosing Weight 80.909, kg, Q8H, Start date: 05/16/13 16:00:00, Duration: 30 day, Stop date: 06/15/13 8:00:00 acetylcyste No 200 mg, 1 M emoria ine 3-06 mL, Route: l 21:00: NEB, Drug [place] 00 Form: SOLN, RQ8H, Start date: 05/16/13 15:00:00, Duration: 30 day, Stop date: 06/15/13 7:00:00 Albuterol No 3 ml, Memoria 0.833 MG/ML 3-06 Route: l / 21:00: INHALATION [place] Ipratropium 00 , Drug [place] Form: 0.167 MG/ML SOLN, Inhalant Dosing Solution Weight [DuoNeb] 80.909, kg, RQ4H, Start date: 05/16/13 15:00:00, Duration: 30 day, Stop date: 06/15/13 11:00:00(S lizabeth as: Duoneb) Cipro 2014-0 No 400 mg, Memoria 3-06 200 mL, l 19:00: Route: [place] 00 IVPB, Drug form: INJ, [id number], Dosing Weight 80.909, kg, Start date: 05/16/13 13:00:00, Duration: 30 day, Stop date: 06/15/13 1:00:00Do not refrigerat e dexamethaso 2013-0 No 4 mg, 1 Mem oria ne 3-06 mL, Route: l 18:21: IV, Drug form: INJ, Q6H, Start date: 05/16/13 12:21:00, Duration: 30 day, Stop date: 06/15/13 12:00:00Co ncentratio n: 4mg/ml Sodium 2013-0 No 25 mL, Memoria Chloride 3 Route: IV, l 0.9% IV 18:18: Start date: 05/16/13 12:18:00, Duration: 30 day, Stop date: 06/15/13 13:17:00, PRN Line Flush BD Normal 2013-0 No 10 mL, Memori a Saline 306 Route: IV, l Flush 18:17: Drug Form: Shravan n 00 INJ, PRN, PRN Line Flush, Start date: 05/16/13 12:17:00, Duration: 30 day, Stop date: 06/15/13 13:16:00(S lizabeth as: BD Posiflush) Robitussin- 2013-0 No 5 ml, Memor ia AC oral 306 Route: PO, l syrup 18:04: Drug Form: Shravan n 00 SYRP, Dosing Weight 80.909, kg, Q4H, PRN Cough/Nii estion, Start date: 05/16/13 12:04:00, Duration: 30 day, Stop date: 06/15/13 12:03:00(calos gilliam ifenesin 20-200mg/1 0ml LIQ) (Same As: Radha AC) predniSONE Yes Pascual Brunner 20 mg, 1 Memoria 20 mg oral 09-12 tab, PO, l tablet 15:49: BID, 14 [place] 54 tab, Substituti on Allowed, TAB DuoNeb Yes Pascual Brunner 3 ml, Memor ia inhalation 09-12 INHALATION l solution 15:49: , Q4H, 120 Her ruiz 47 ea, Substituti on Allowed, Maintenanc e, SOLN DuoNeb No Pascual Brunner 3 ml, Memor ia inhalation 09-11 Route: l solution 20:00: NEB, Drug Herm Form: SOLN, Dosing Weight 80.028, kg, RQ4H, Start date: 09/11/12 15:00:00, Duration: 30 day, Stop date: 10/11/12 11:00:00 albuterol-i Yes 3 ml, Memor ia pratropium 09-11 INHALATION l 2.5-0.5 mg 18:07: , QID, 30 He rmann inhalation 42 ea, solution Substituti on Allowed, Maintenanc e, SOLN Combivent Yes 2 puff, Memor ia inhalation 09-11 INHALER, l aerosol 18:07: QID, 14 [place] with 00 gm, adapter Substituti on Allowed, [...] 02 tab, PO, l tablet 18:00: BID, [place] 21 Substituti on Allowed, TAB Cipro No Pascual Brunner 400 mg, Xiang bethany 7-02 200 mL, l 17:00: Route: Damien IVPB, Drug form: INJ, [id number], Dosing Weight 80.028, kg, Start date: 09/11/12 [...] Source Height 2017-06-05 18:21:00 182.88 cm [facility] [place] BMI Calculated 2017-06-05 18:21:00 Memori al Damien Weight 2017-06-05 18:21:00 [facility] Systolic (mm Hg) 2017-06-05 18:21:00 Xiang rial Damien Diastolic (mm Hg) 2017-06-05 18:21:00 Mem orial Damien Weight 2017-04-24 20:45:00 [facility] [place] BMI Calculated 2017-04-24 20:45:00 Mem[facility] al [place] Height 2017-04-24 20:45:00 182.88 cm [facility] Heart Rate 2017-04-24 20:45:00 [facility] Systolic (mm Hg) 2017-04-24 20:45:00 Xiang rial Damien Diastolic (mm Hg) 2017-04-24 20:45:00 Mem orial [place] Heart Rate 2016-06-28 20:00:00 [facility] Respitory Rate 2016-06-28 20:00:00 [facility] al [place] Systolic (mm Hg) 2016-06-28 20:00:00 Xiang rial [place] Diastolic (mm Hg) 2016-06-28 20:00:00 Mem orial [place] Temperature Oral (F) 2016-06-28 20:00:00 98.5 F [facility] [place] Systolic (mm Hg) 2016-06-28 16:00:00 Xiang rial Damien Diastolic (mm Hg) 2016-06-28 16:00:00 Mem orial [place] Respitory Rate 2016-06-28 16:00:00 [facility] [place] Heart Rate 2016-06-28 16:00:00 [facility] Temperature Oral (F) 2016-06-28 16:00:00 98.1 F [facility] [place] Temperature Oral (F) 2016-06-28 12:00:00 97.5 F [facility] [place] Heart Rate 2016-06-28 12:00:00 [facility] Dam[facility] Systolic (mm Hg) 2016-06-28 12:00:00 Xiang rial [place] Diastolic (mm Hg) 2016-06-28 12:00:00 Mem orial [place] Respitory Rate 2016-06-28 12:00:00 [facility] [place] Weight 2016-06-22 03:50:00 [facility] BMI Calculated 2016-06-22 03:50:00 [facility] [place] Height 2016-06-22 03:50:00 182.88 cm [facility] Weight 2016-06-21 18:45:00 [facility] [place] Height 2016-06-21 18:45:00 182.88 cm [facility] [place] BMI Calculated 2016-06-21 18:45:00 [facility] Heart Rate 2016-05-31 20:30:00 [facility] Respitory Rate 2016-05-31 20:30:00 [facility] [place] Temperature Oral (F) 2016-05-31 20:30:00 97.8 F [facility] Weight 2016-05-31 20:30:00 [facility] Diastolic (mm Hg) 2016-05-31 20:30:00 Mem orial [place] Systolic (mm Hg) 2016-05-31 20:30:00 Xiang rial [place] Systolic (mm Hg) 2016-05-18 22:11:00 Xiang rial Damien Diastolic (mm Hg) 2016-05-18 22:11:00 Mem orial [place] Heart Rate 2016-05-18 22:11:00 [facility] Respitory Rate 2016-05-18 22:11:00 [facility] al [place] Temperature Oral (F) 2016-05-18 22:11:00 98.5 F [facility] [place] Temperature Oral (F) 2016-05-18 17:09:00 98.4 F [facility] Heart Rate 2016-05-18 17:09:00 [facility] [place] Systolic (mm Hg) 2016-05-18 17:09:00 Xiang rial Damien Diastolic (mm Hg) 2016-05-18 17:09:00 Mem orial [place] Respitory Rate 2016-05-18 17:09:00 [facility] al [place] Temperature Oral (F) 2016-05-18 14:45:00 98.2 F [facility] [place] Respitory Rate 2016-05-18 14:45:00 [facility] [place] Heart Rate 2016-05-18 14:45:00 [facility] Systolic (mm Hg) 2016-05-18 14:45:00 Xiang rial [place] Diastolic (mm Hg) 2016-05-18 14:45:00 Mem orial [place] Height 2016-05-18 01:33:00 182.88 cm [facility] BMI Calculated 2016-05-18 01:33:00 [facility] [place] Weight 2016-05-18 01:33:00 [facility] BMI Calculated 2016-05-17 17:50:00 [facility] [place] Height 2016-05-17 17:50:00 182.88 cm [facility] Weight 2016-05-17 17:50:00 [facility] [place] Systolic (mm Hg) 2015-07-20 16:05:00 Xiang rial [place] Diastolic (mm Hg) 2015-07-20 16:05:00 Mem orial [place] Respitory Rate 2015-07-20 16:05:00 [facility] [place] Heart Rate 2015-07-20 16:05:00 [facility] Temperature Oral (F) 2015-07-20 16:05:00 98.4 F [facility] Temperature Oral (F) 2015-07-20 12:26:00 98.3 F [facility] Respitory Rate 2015-07-20 12:26:00 [facility] [place] Systolic (mm Hg) 2015-07-20 12:26:00 Xiang rial [place] Diastolic (mm Hg) 2015-07-20 12:26:00 Mem orial [place] Heart Rate 2015-07-20 12:26:00 [facility] [place] Respitory Rate 2015-07-20 09:30:00 [facility] al [facility] Heart Rate 2015-07-20 09:30:00 [facility] [place] Systolic (mm Hg) 2015-07-20 09:30:00 Xiang rial [place] Diastolic (mm Hg) 2015-07-20 09:30:00 Mem o[facility] [place] Temperature Oral (F) 2015-07-20 09:30:00 97.4 F [facility] [place] Height 2015-07-16 02:36:00 203.2 cm [facility] [place] BMI Calculated 2015-07-15 23:02:00 [facility] [place] Height 2015-07-15 23:02:00 175.26 cm [facility] Weight 2015-07-15 23:02:00 [facility] Respitory Rate 2015-07-14 17:47:00 [facility] [place] Heart Rate 2015-07-14 17:47:00 [facility] [place] Systolic (mm Hg) 2015-07-14 17:47:00 Xiang rial [place] Diastolic (mm Hg) 2015-07-14 17:47:00 Mem orial [place] Temperature Oral (F) 2015-07-14 17:47:00 98.6 F [facility] Respitory Rate 2015-07-14 13:00:00 [facility] [place] Systolic (mm Hg) 2015-07-14 13:00:00 Xiang rial [place] Diastolic (mm Hg) 2015-07-14 13:00:00 Mem orial [place] Heart Rate 2015-07-14 13:00:00 [facility] Temperature Oral (F) 2015-07-14 13:00:00 98 F [facility] [place] Temperature Oral (F) 2015-07-14 09:15:00 98.2 F [facility] Heart Rate 2015-07-14 09:15:00 [facility] [place] Systolic (mm Hg) 2015-07-14 09:15:00 Xiang rial [place] Diastolic (mm Hg) 2015-07-14 09:15:00 Mem orial [place] Respitory Rate 2015-07-14 09:15:00 [facility] [place] Height 2015-07-14 02:19:00 182.88 cm [facility] Height 2015-07-14 02:13:00 182.88 cm [facility] BMI Calculated 2015-07-13 18:47:00 [facility] [place] Weight 2015-07-13 18:47:00 [facility] Height 2015-07-13 18:47:00 182.88 cm [facility] [place] Heart Rate 2015-05-07 18:43:00 [facility] Temperature Oral (F) 2015-05-07 18:43:00 98 F [facility] [place] Systolic (mm Hg) 2015-05-07 18:43:00 Xiang rial [place] Diastolic (mm Hg) 2015-05-07 18:43:00 Mem orial [place] Respitory Rate 2015-05-07 18:43:00 [facility] al [place] Temperature Oral (F) 2015-05-07 14:07:00 98.1 F [facility] Respitory Rate 2015-05-07 14:07:00 [facility] [place] Systolic (mm Hg) 2015-05-07 14:07:00 Xiang rial Damien Diastolic (mm Hg) 2015-05-07 14:07:00 Mem orial [place] Heart Rate 2015-05-07 14:07:00 [facility] [place] Heart Rate 2015-05-07 09:20:00 [facility] Systolic (mm Hg) 2015-05-07 09:20:00 Xiang rial [place] Diastolic (mm Hg) 2015-05-07 09:20:00 Mem orial [place] Respitory Rate 2015-05-07 09:20:00 [facility] [place] Temperature Oral (F) 2015-05-07 09:20:00 97.9 F [facility] Weight 2015-05-04 21:15:00 [facility] [place] BMI Calculated 2015-05-04 21:15:00 [facility] [place] Height 2015-05-04 21:15:00 182.88 cm [facility] Height 2015-05-04 21:07:00 182.88 cm [facility] Weight 2015-05-04 21:07:00 [facility] [place] BMI Calculated 2015-05-04 21:07:00 [facility] [place] Temperature Oral (F) 2014-07-23 12:58:30 98.5 F [facility] [place] Respitory Rate 2014-07-23 12:58:30 [facility] Heart Rate 2014-07-23 12:58:30 [facility] Height 2014-07-23 12:58:30 [facility] Weight 2014-07-23 12:58:30 [facility] [place] Systolic (mm Hg) 2014-07-23 12:58:30 Xiang rial Damien Diastolic (mm Hg) 2014-07-23 12:58:30 Mem orial [place] Height 2014-03-14 14:04:42 [facility] [place] Temperature Oral (F) 2014-03-14 14:04:42 97 F [facility] [place] Respitory Rate 2014-03-14 14:04:42 [facility] [place] Heart Rate 2014-03-14 14:04:42 [facility] [place] Systolic (mm Hg) 2014-03-14 14:04:42 Xiang rial [place] Diastolic (mm Hg) 2014-03-14 14:04:42 Mem orial [place] Height 2014-02-20 14:03:41 [facility] [place] Weight 2014-02-20 14:03:41 [facility] Temperature Oral (F) 2014-02-20 14:03:41 98.3 F [facility] [place] Respitory Rate 2014-02-20 14:03:41 [facility] Heart Rate 2014-02-20 14:03:41 [facility] Systolic (mm Hg) 2014-02-20 14:03:41 Xiang rial [place] Diastolic (mm Hg) 2014-02-20 14:03:41 Mem orial [place] Height 2014-02-18 17:25:11 [facility] Weight 2014-02-18 17:25:11 [facility] [place] Temperature Oral (F) 2014-02-18 17:25:11 98.3 F [facility] [place] Respitory Rate 2014-02-18 17:25:11 [facility] Heart Rate 2014-02-18 17:25:11 [facility] Systolic (mm Hg) 2014-02-18 17:25:11 Xiang rial [place] Diastolic (mm Hg) 2014-02-18 17:25:11 Mem o[facility] [place] Height 2013-12-03 18:05:02 [facility] [place] Weight 2013-12-03 18:05:02 [facility] [place] Temperature Oral (F) 2013-12-03 18:05:02 98.3 F [facility] [place] Respitory Rate 2013-12-03 18:05:02 [facility] Heart Rate 2013-12-03 18:05:02 [facility] [place] Systolic (mm Hg) 2013-12-03 18:05:02 Xiang rial Damien Diastolic (mm Hg) 2013-12-03 18:05:02 Mem orial [place] Systolic (mm Hg) 2013-11-26 18:55:21 Xiang rial [place] Diastolic (mm Hg) 2013-11-26 18:55:21 [facility] o[facility] [place] Weight 2013-11-26 18:55:21 [facility] Temperature Oral (F) 2013-11-26 18:55:21 98.4 F [facility] Respitory Rate 2013-11-26 18:55:21 [facility] Heart Rate 2013-11-26 18:55:21 [facility] Height 2013-11-26 18:55:21 [facility] [place] Temperature Oral (F) 2013-05-18 13:27:00 98.1 F [facility] Respitory Rate 2013-05-18 13:27:00 [facility] Heart Rate 2013-05-18 13:27:00 [facility] [place] Systolic (mm Hg) 2013-05-18 13:27:00 Xiang rial [place] Diastolic (mm Hg) 2013-05-18 13:27:00 Mem o[facility] [place] Systolic (mm Hg) 2013-05-18 10:00:00 Xiang rial [place] Diastolic (mm Hg) 2013-05-18 10:00:00 Mem orial [place] Temperature Oral (F) 2013-05-18 10:00:00 96.8 F [facility] [place] Respitory Rate 2013-05-18 10:00:00 [facility] Heart Rate 2013-05-18 10:00:00 [facility] [place] Diastolic (mm Hg) 2013-05-18 05:35:00 Mem orial [place] Temperature Oral (F) 2013-05-18 05:35:00 96.5 F [facility] [place] Respitory Rate 2013-05-18 05:35:00 [facility] [place] Systolic (mm Hg) 2013-05-18 05:35:00 Xiang rial [place] Heart Rate 2013-05-18 05:35:00 [facility] BMI Calculated 2013-05-16 17:59:00 [facility] [place] Weight 2013-05-16 17:59:00 [facility] [place] Height 2013-05-16 17:59:00 182.88 cm [facility] [place] Respitory Rate 2012-09-12 17:09:00 [facility] [place] Systolic (mm Hg) 2012-09-12 17:09:00 Xiang rial [place] Diastolic (mm Hg) 2012-09-12 17:09:00 Mem o[facility] [place] Temperature Oral (F) 2012-09-12 17:09:00 96.9 F [facility] [place] Heart Rate 2012-09-12 17:09:00 [facility] [place] Diastolic (mm Hg) 2012-09-12 12:55:00 Mem orial [place]ien Systolic (mm Hg) 2012-09-12 12:55:00 Xiang rial [place] Respitory Rate 2012-09-12 12:55:00 [facility] [place] Heart Rate 2012-09-12 12:55:00 [facility] [place] Temperature Oral (F) 2012-09-12 12:55:00 96.3 F [facility] [place] Systolic (mm Hg) 2012-09-12 09:36:00 Xiang Arroyoann Diastolic (mm Hg) 2012-09-12 09:36:00 Mem orial [place] Heart Rate 2012-09-12 09:36:00 [facility] Respitory Rate 2012-09-12 09:36:00 [facility] [place] Temperature Oral (F) 2012-09-12 09:36:00 96.9 F [facility] Weight 2012-09-11 16:16:00 [facility] [place] Height 2012-09-11 16:16:00 [facility] Procedure Date / Time Performed Performing Clinician [facility] e smoking/tobacco 2013-11-26 18:55:[address] [facility] ruiz cessation, patient education and counseling Appendectomy; [facility] [place] ORIF - Open reduction and Memori al [place] internal fixation of fracture ORIF - Open reduction and Memori al Damien internal fixation of fracture Encounters Start End Encounter Admission Attending Care Care Encounter Source Date/Time Date/Time Type Type Clinicians Facility Department ID 2017-11-29 2017-11-29 Outpatient Wyatt, MHMISCHER MHMISCHER [id number] 13:30:00 13:30:00 [facility] 2017-06-05 2017-06-05 Outpatient Wyatt, MHMISCHER MHMISCHER [id number] 13:15:00 23:59:59 [facility] 2017-04-24 2017-04-24 Outpatient Wyatt, MHMISCHER MHMISCHER [id number] 14:15:00 23:59:59 [facility] 2017-04-24 2017-04-24 Outpatient Wyatt, MHMISCHER MHMISCHER [id number] 14:15:00 23:59:59 [facility] 2017-04-12 2017-04-13 Outpatient MHMISCHER MHMISCHER [id number] 11:38:00 23:59:59 2016-05-30 2016-06-28 Outpatient Niki [id number]. [id number] 09:00:00 23:59:00 , Ebba [id number] Ning [id number] 5.15 Best 2016-06-21 2016-06-28 Outpatient Ishfaq, MH9 MH9 [id number] 13:24:00 19:30:00 Kohler 2016-05-31 2016-05-31 Outpatient Sahil Dale Sahil Dale Binta [id number] [facility] 14:30:00 14:30:00 Binta Crespo ks 2016-05-17 2016-05-18 Outpatient Zheng, Crow MH9 MH9 [id number] 11:39:00 18:19:00 Ali 2015-07-15 2015-07-20 Outpatient Payan, MH9 [id number] 18:00:00 12:31:00 Alicia Jefe 2015-07-13 2015-07-14 Outpatient Payan, MH9 MH9 [id number] 13:41:00 15:50:00 Alicia 04 Jefe 2015-05-06 2015-05-07 Outpatient BrunnerPascual 9 9 [id number] 12:00:00 16:00:00 53 2014-07-31 2014-07-31 Outpatient DeFriece, HS [facility] [id number] 13:53:00 23:59:00 Ifeanyi Mu 2014-07-28 2014-07-28 [place] [id number] 16:00:00 23:59:00 Ifeanyi Mu 2013-11-27 2013-11-27 [place] [id number] 18:11:00 23:59:00 Ifeanyi Mu 2013-10-09 2013-10-09 Outpatient Lele, HS HS [id number] 08:55:00 23:59:00 Sriram 00 2013-05-17 2013-05-18 Outpatient BrunnerPascual [facility] [id number] 11:45:00 12:45:00 65 Results Test Description Test Time Test Comments Results Result Comments Source ACT-ISTAT 2020-04-25 09:23:00 Test Item Value Reference Range Interpretation Comme nts ACT-ISTAT (test code = ACTI) 246 SEC 74-137 H BASIC METABOLIC [id number] 09:14:00 Test Item Value Reference Range Interpretation Comments SODIUM (test code = 136 MMOL/L 137-145 L NA) POTASSIUM (test code = 4.3 MMOL/L 3.5-5.1 N K) CHLORIDE (test code = 102 MMOL/L 98-107 N CL) CARBON DIOXIDE (test 30 MMOL/L 22-30 N code = CO2) GLUCOSE (test code = 106 MG/DL 74-106 N GLU) BLOOD UREA NITROGEN 19 MG/DL 9-20 N (test code = BUN) GLOMERULAR FILTRATION > 60 Report ing units: RATE (test code = GFR) ml/mi n/1.73 m2 (Modified MDRD Formula)Referen ce Range: > or = 6 0 ml/min/1.73 m2 CREATININE (test code 0.60 MG/DL 0.66-1.25 L = CREAT) CALCIUM (test code = 9.2 MG/DL 8.4-10.2 N CA) RECOLLECTION NEEDED ON 04/25/20 AT 0817 BY [email or web address]: POSSIBLE CONTAMINTION.NOTIFIED PATIENT CARE STAFF: AMYLIPID PROFILE (CORONARY RISK) 2020-04-25 09:14:00 Test Item Value Reference Range Interpretation Comments TRIGLYCERIDES (test 82 MG/DL TRIGLYCE RIDES code = TRIG) REFERENCE RANGE:Normal: < 150 mg/dLBorderline High: 150-199 mg/dLHi gh: 200-499 mg/dLVe ry High: >=500 mg/ dL CHOLESTEROL (test code 139 MG/DL <200 = CHOL) HDL CHOLESTEROL (test 45 MG/DL 40-59 N code = HDL) LIPOPROTEIN LDL (test 74 MG/DL 0-99 N code = LDL) OPTIMAL........ .<100 mg/dLNEAR OPTIMAL/ABOVE OPTIMAL........ .100-12 9 mg/dL BORDERLINE HIGH.........13 0-159 mg/dL HIGH.........16 0-189 mg/dL VERY HIGH...... ...>/= 190 mg/dL RECOLLECTION NEEDED ON 04/25/20 AT 0817 BY [email or web address]: POSSIBLE CONTAMINTION.NOTIFIED PATIENT CARE STAFF: [id number] 09:14:00 Test Item Value Reference Range Interpretation Comments MAGNESIUM (test code = MAG) 2.0 MG/DL 1.6-2.3 N RECOLLECTION NEEDED ON 04/25/20 AT 0817 BY [email or web address]: POSSIBLE CONTAMINTION.NOTIFIED PATIENT CARE STAFF: AMYBASIC METABOLIC [id number] 09:02:00 Test Item Value Reference Range Interpretation Comments SODIUM (test code = 136 MMOL/L 137-145 L NA) POTASSIUM (test code = 4.3 MMOL/L 3.5-5.1 N K) CHLORIDE (test code = 102 MMOL/L 98-107 N CL) CARBON DIOXIDE (test 30 MMOL/L 22-30 N code = CO2) GLUCOSE (test code = 106 MG/DL 74-106 N GLU) BLOOD UREA NITROGEN 19 MG/DL 9-20 N (test code = BUN) GLOMERULAR FILTRATION > 60 Report ing units: RATE (test code = GFR) ml/mi n/1.73 m2 (Modified MDRD Formula)Referen ce Range: > or = 6 0 ml/min/1.73 m2 CREATININE (test code 0.60 MG/DL 0.66-1.25 L = CREAT) CALCIUM (test code = 9.2 MG/DL 8.4-10.2 N CA) RECOLLECTION NEEDED ON 04/25/20 AT 0817 BY [email or web address]: POSSIBLE CONTAMINTION.NOTIFIED PATIENT CARE STAFF: AMYLIPID PROFILE (CORONARY RISK) 2020-04-25 09:02:00 Test Item Value Reference Range Interpretation Comments TRIGLYCERIDES (test 82 MG/DL TRIGLYCE RIDES code = TRIG) REFERENCE RANGE:Normal: < 150 mg/dLBorderline High: 150-199 mg/dLHi gh: 200-499 mg/dLVe ry High: >=500 mg/ dL CHOLESTEROL (test code 139 MG/DL <200 = CHOL) HDL CHOLESTEROL (test 45 MG/DL 40-59 N code = HDL) LIPOPROTEIN LDL (test 74 MG/DL 0-99 N code = LDL) OPTIMAL........ .<100 mg/dLNEAR OPTIMAL/ABOVE OPTIMAL........ .100-12 9 mg/dL BORDERLINE HIGH.........13 0-159 mg/dL HIGH.........16 0-189 mg/dL VERY HIGH...... ...>/= 190 mg/dL RECOLLECTION NEEDED ON 04/25/20 AT 08 BY [email or web address]: POSSIBLE CONTAMINTION.NOTIFIED PATIENT CARE STAFF: [id number] 09:02:00 Test Item Value Reference Range Interpretation Comments MAGNESIUM (test code = MAG) MG/DL 1.6-2.3 RECOLLECTION NEEDED ON 04/25/20 AT 08 BY [email or web address]: POSSIBLE CONTAMINTION.NOTIFIED PATIENT CARE STAFF: [facility] MET[facility]OL[facility] [id number] 08:52:00 Test Item Value Reference Range Interpretation Comments SODIUM (test code = 136 MMOL/L 137-145 L NA) POTASSIUM (test code = 4.3 MMOL/L 3.5-5.1 N K) CHLORIDE (test code = 102 MMOL/L 98-107 N CL) CARBON DIOXIDE (test 30 MMOL/L 22-30 N code = CO2) GLUCOSE (test code = 106 MG/DL 74-106 N GLU) BLOOD UREA NITROGEN 19 MG/DL 9-20 N (test code = BUN) GLOMERULAR FILTRATION > 60 Report ing units: RATE (test code = GFR) ml/mi n/1.73 m2 (Modified MDRD Formula)Referen ce Range: > or = 6 0 ml/min/1.73 m2 CREATININE (test code 0.60 MG/DL 0.66-1.25 L = CREAT) CALCIUM (test code = 9.2 MG/DL 8.4-10.2 N CA) RECOLLECTION NEEDED ON 04/25/20 AT 08 BY [email or web address]: POSSIBLE CONTAMINTION.NOTIFIED PATIENT CARE STAFF: AMYLIPID PROFILE (CORONARY RISK) 2020-04-25 08:52:00 Test Item Value Reference Range Interpretation Comments TRIGLYCERIDES (test 82 MG/DL TRIGLYCE RIDES code = TRIG) REFERENCE RANGE:Normal: < 150 mg/dLBorderline High: 150-199 mg/dLHi gh: 200-499 mg/dLVe ry High: >=500 mg/ dL CHOLESTEROL (test code 139 MG/DL <200 = CHOL) HDL CHOLESTEROL (test 45 MG/DL 40-59 N code = HDL) LIPOPROTEIN LDL (test MG/DL 0-99 code = LDL) RECOLLECTION NEEDED ON 04/25/20 AT 08 BY [email or web address]: POSSIBLE CONTAMINTION.NOTIFIED PATIENT CARE STAFF: [id number] 08:52:00 Test Item Value Reference Range Interpretation Comments MAGNESIUM (test code = MAG) MG/DL 1.6-2.3 RECOLLECTION NEEDED ON 04/25/20 AT 0817 BY [id number]: POSSIBLE CONTAMINTION.NOTIFIED PATIENT CARE STAFF: AMYPROTHROMBIN [id number] 06:44:00 Test Item Value Reference Range Interpretation Comments PROTHROMBIN TIME PATIENT 13.0 9.5-12.7 H (test code = PTP) INTERNATIONAL NORMAL RATIO 1.2 0.86-1.14 H T he INR is to be used (test code = INR) only for m onitoring oral anticoagulantth erapy. INDICATION INR VALUE ------- ------- -----1. Prophylaxis, d eep venous thrombos is, including high risk surgery. 2.0 - 3.0 2. Prophylaxis, de ep venous thrombos is, hip surgery, tr eatment for deep venous thrombosis or pulmonary preve ntion of systemic embolism in pat ients with valvula r heart disease, atrial fibrillation, tissue heart va lve, or acute myocardia l infarction. 2.0 - 3.0 3. Mechanical pros thesis heart valves, recurrent syste manish embolism. 3.0 - 4.5 PTT [id number] 06:44:00 Test Item Value Reference Range Interpretation Comments PTT ACTIVATED (test code = APTT) 23.6 SECONDS 25.1-36.5 L CBC W/AUTO [id number] 06:33:00 Test Item Value Reference Range Interpretation Comments WHITE BLOOD CELL (test code = 5.7 K/MM3 3.8-9.8 N WBC) RED BLOOD CELL (test code = 2.61 M/MM3 3.95-5.67 L RBC) HEMOGLOBIN (test code = HGB) 8.9 G/DL 12.4-16.7 L HEMATOCRIT (test code = HCT) 28.4 % 35.9-49.5 L MEAN CELL VOLUME (test code = 109 fL 81.7-96.1 H MCV) MEAN CELL HGB (test code = MCH) 34.1 pg 27.6-33.2 H MEAN CELL HGB CONCETRATION 31.3 % 32.9-35.5 L (test code = MCHC) RED CELL DISTRIBUTION WIDTH 14.5 % 12.1-15.2 N (test code = RDW) PLATELET COUNT (test code = 94 K/MM3 129-368 L PLT) MEAN PLATELET VOLUME (test code 11.6 fl 7.4-10.4 H = MPV) NEUTROPHIL % (test code = NT%) 78.0 % 43-75 H IMMATURE GRANULOCYTE % (test 0.2 % 0.0-2.0 N code = IG%) LYMPHOCYTE % (test code = LY%) 8.5 % 14-44 L MONOCYTE % (test code = MO%) 9.7 % 4-13 N EOSINOPHIL % (test code = EO%) 3.4 % 0-6 N BASOPHIL % (test code = BA%) 0.2 % 0-2 N NUCLEATED RBC % (test code = 0.0 % 0-1.0 N NRBC%) NEUTROPHIL # (test code = NT#) 4.41 K/mm3 2.0-7.6 N IMMATURE GRANULOCYTE # (test 0.01 x10 3/uL 0-0.03 N code = IG#) LYMPHOCYTE # (test code = LY#) 0.48 K/mm3 1.0-3.8 L MONOCYTE # (test code = MO#) 0.55 K/mm3 0.1-0.8 N EOSINOPHIL # (test code = EO#) 0.19 K/mm3 0.0-0.2 N BASOPHIL # (test code = BA#) 0.01 K/mm3 0.0-0.2 N NUCLEATED RBC # (test code = 0.00 K/mm3 0.0-0.1 N NRBC#) COVID 19 Asymptomatic IH [id number] 05:24:00 Test Item Value Reference Range Interpretation Comments COVID 19 NEGATIVE Negative "Negative resul ts from Asymptomatic IH AG patients with symptom (test code = onset beyondfiv e days, COVNONPUIAG) should be jh allyssa as presumptive, andconfirmation with a molecular assay , if necessary forpa tient management may be performed. Nega tive results do notr ule out COVID-19 and sh ould not be used as the sole basisfor treatm ent or patient managem ent decisions, includinginfect ion control decisio ns. Negative result s should beconsidered in the context of a pa tients recent exposure s,history, and the presenc e of clinical signs and symptomsconsist ent with COVID-19.This t est detects both vi able andnon-viable S ARS-CoV and SARS CoV-2. Test performance dep endson the amount of virus (antigen) in the sample." - INS GASTRO TUBE [id number] 15:10:00 [facility] 1945 Sex: M Name: SHIRLENE NICHOLAS [facility] : 1945ge/S: 74 / M [address] [facility] Unit #: [id number] Loc: [place] [address] Phys: Sapna Rosas MD Acct: [id number] Dis Date: [id number] Status: DIS IN PHONE#: [phone] Exam Date: 01/02/2020 1200 FAX #: Reason: THROAT CA EXAMS: CPT: [id number] INS GASTRO TUBE PERC 62152 Fluoro Time:00:24 DAP (Gy m2): 1 Air Kerma (mGy): 0.27 C3 Procedure: A borted gastrostomy tube Indication: Dysphagia. Head and neck cancer. Date: 01/02/2020 Operators: Jason Rosa M.D. Medications: 1 mg IV glucagon IV Versed, and IV fentanyl Qpbp-wo-jrvs time: Approximately 30 minutes. Complications: None immediate [...] left. IV glucagon was administered. Through a 5-Samoan Kumpe catheter which was placed in the procedure room, the gastric lumen was insufflated with air. Fluoroscopy was utilized to exclude the presence of overlying bowel gas. Findings: Colon is seen overlying the stomach as noted on previous CT. The window is inappropriate for percutaneous gastrostomy tube placement. Impression: Aborted percutaneous gastrostomy tube. The referring service was notified at the time of the procedure.PAGE 1 Signed Report (CONTINUED) Name: SHIRLENE NICHOLAS [place] : 1945 Age/S: 74 / M [address] [facility] Unit #: [id number] Loc: [place] [address] Phys: Sapna Rosas MD Acct: [id number] Dis Date: [id number] Status: DIS IN PHONE #: [phone] Exam Date: 01/02/2020 1200 FAX #: Reason: THROAT CA EXAMS: CPT: [id number] INS GASTRO TUBE PERC 14625 Fluoro Time: 00:24 DAP (Gy m2): 1 Air Kerma (mGy): 0.27 <Continued> at 1510 Reported and signed by: Jason Rosa M.D. CC: Sapna Rosas MD; Morteza Arriaza MD PAGE 2 Signed Report Name: SHIRLENE NICHOLAS [place] : 1945 Age/S: 74 / M [address] [place] [address] Unit #: [id number] Loc: [place] [address] Phys: Sapna Rosas MD Acct: [id number] Dis Date: [id number] Status: DIS IN PHONE #: [phone] Exam Date: 01/02/2020 1200 FAX #: Reason: THROAT CA EXAMS: CPT: [id number] INS GASTRO TUBE PERC 89603 Fluoro Time: 00:24 DAP (Gy m2): 1 Air Kerma (mGy): 0.27 <Continued> Technologist: Kanika Garcia [facility] Date/Time: 01/23/2020 (151 0) TessaSI1 Orig Print D/T: S: 01/23/2020 (1513) PAGE 3 Signed ReportGLUCOSE BEDSIDE TESTING 2020-01-08 11:44:00 Test Item Value Reference Range Interpretation Comments GLUCOSE BEDSIDE TESTING (test code 131 mg/dL 70-110 H = GLUBED) GLUCOSE BEDSIDE [id number] 07:59:00 Test Item Value Reference Range Interpretation Comments GLUCOSE BEDSIDE TESTING (test code = 79 mg/dL 70-110 N GLUBED) GLUCOSE BEDSIDE [id number] 06:23:00 Test Item Value Reference Range Interpretation Comments GLUCOSE BEDSIDE TESTING (test code = 87 mg/dL 70-110 N GLUBED) GLUCOSE BEDSIDE [id number] 11:37:00 Test Item Value Reference Range Interpretation Comments GLUCOSE BEDSIDE TESTING (test code 101 mg/dL 70-110 N = GLUBED) GLUCOSE BEDSIDE [id number] 08:43:00 Test Item Value Reference Range Interpretation Comments GLUCOSE BEDSIDE TESTING (test code 114 mg/dL 70-110 H = GLUBED) GLUCOSE BEDSIDE [id number] 20:55:00 Test Item Value Reference Range Interpretation Comments GLUCOSE BEDSIDE TESTING (test code = 86 mg/dL 70-110 N GLUBED) - XR SWLW FUNC W/C [id number] 12:12:00 [facility] 1945 Sex: M Name: SHIRLENE NICHOLAS [facility] : 1945ge/S: 74 / M [address] [address] Unit #: [id number] Loc: [place] [address] Phys: Sapna Rosas MD Acct: [id number] Dis Date: Status: ADM IN PHONE#: [phone] Exam Date: 01/06/2020 1000 FAX #: Reason: MBS EXAMS: CPT: [id number] XR SWLW FUNC W/C V 08460 Fluoro Time:132 DAP (Gy m2): Air Kerma [...] PAGE 1 Signed Report Name: SHIRLENE NICHOLAS [place] : 1945 Age/S: 74 / M [address] [facility] Unit #: [id number] Loc: [place] [address] Phys: Sapna Rosas MD Acct: [id number] Dis Date: Status: ADMIN PHONE #: [phone] Exam Date: 01/06/2020 1000 FAX #: Reason: MBS EXAMS: CPT: [id number] XR SWLW FUNC W/C V 19098 Fluoro Time: 132 DAP (Gy m2): Air Kerma (mGy): 8.79 <Continued> Technologist: Wayne Cleary, RT(R)(CT) Trnscb Date/Time: 01/06/2020 (1212) tTATUMANS4 Orig Print D/T: S: 01/06/2020 (1210) PAGE 2 Signed ReportGLUCOSE BEDSIDE [id number] 11:57:00 Test Item Value Reference Range Interpretation Comments GLUCOSE BEDSIDE TESTING (test code 136 mg/dL 70-110 H = GLUBED) GLUCOSE BEDSIDE [id number] 10:25:00 Test Item Value Reference Range Interpretation Comments GLUCOSE BEDSIDE TESTING (test code 105 mg/dL 70-110 N = GLUBED) - XR CHEST 1 [id number] 07:39:00 [facility] : 1945 Sex: M Name: SHIRLENE NICHOLAS [facility] : 1945ge/S: 74 / M [address] [address] Unit #: [id number] Loc: [place] [address] Phys: Magen Hammond MD Acct: [id number] Dis Date: Status: ADM IN PHONE#: [phone] Exam Date: 01/06/2020 0605 FAX #: Reason: pneumnonia EXAMS: CPT: [id number] XR CHEST 1 V 59009 Fluoro Time: DAP (Gy m2): Air Kerma [...] 0739 Reported and signed by: LUIS ANGEL SATNTON M.D. CC: Sapna Rosas MD; Magen Hammond MD; Morteza Arriaza MD PAGE 1 Signed Report [facility]: [facility] 1945 Age/S: 74 / M [address] [address] Unit #: [id number] Loc: [place] [address] Phys: Magen Hammond MD Acct: [id number] Dis Date: Status: ADM IN PHONE #: [phone] ExamDate: 01/06/2020 0605 FAX #: Reason: pneumnonia EXAMS: CPT: [id number] XR CHEST 1 V 26566 Fluoro Time: DAP (Gy m2): Air Kerma (mGy): <Continued> Technologist: Tati Buchanan, RT(R)(CT) Trnscb Date/Time: 01/06/2020 (0739) tVERENAR.HV2 Orig Print D/T: S: 01/06/2020 (0742) PAGE 2 Signed ReportGLUCOSE BEDSIDE [id number] 04:31:00 Test Item Value Reference Range Interpretation Comments GLUCOSE BEDSIDE TESTING (test code = 89 mg/dL 70-110 N GLUBED) GLUCOSE BEDSIDE [id number] 20:49:00 Test Item Value Reference Range Interpretation Comments GLUCOSE BEDSIDE TESTING (test code 109 mg/dL 70-110 N = GLUBED) GLUCOSE BEDSIDE [id number] 12:37:00 Test Item Value Reference Range Interpretation Comments GLUCOSE BEDSIDE TESTING (test code 160 mg/dL 70-110 H = GLUBED) - CT CHEST W/O [id number] 10:09:00 [facility] : 1945 Sex: M Name: SHIRLENE NICHOLAS [place] : 1945ge/S: 74 / M [address] [address] Unit #: [id number] Loc: [place] [address] Phys: Sapna Rosas MD Acct: [id number] Dis Date: Status: ADM IN PHONE#: [phone] Exam Date: 01/05/2020957 FAX #: Reason:TANIKA CONGESTION EXAMS: CPT: [id number] CT CHEST W/O CONTRAST 28265 EXAM: - CT CHEST W/O CONTRAST INDICATION: [...] NICHOLAS : 1945 Age/S: 74 / M [address] [address] Unit #: [id number] Loc: [place] [address] Phys: Sapna Rosas MD Acct: [id number] Dis Date: Status: ADM IN PHONE #: [phone] ExamDate: 01/05/2020957 FAX #: Reason: TANIKA CONGESTION EXAMS: CPT: [id number] CT CHEST W/O CONTRAST 22261 <Continued> at 1009 Reported and signed by: Lalo Lao M.D. CC: Sapna Rosas MD; Morteza Arriaza MD Tech nologist:Anne-Marie Cuevas RT(R)(CT) CTDI: DLP: Trnscb Date/Time: 01/05/2020 (1009) t.ISISR.AH26 Orig Print D/T: S: 01/05/2020 (1012) PAGE 2 Signed ReportGLUCOSE BEDSIDE [id number] 07:56:00 Test Item Value Reference Range Interpretation Comments GLUCOSE BEDSIDE TESTING (test code 137 mg/dL 70-110 H = GLUBED) GLUCOSE BEDSIDE [id number] 00:33:00 Test Item Value Reference Range Interpretation Comments GLUCOSE BEDSIDE TESTING (test code 162 mg/dL 70-110 H = GLUBED) - CT ABD PELVIS W/[id number] 13:06:00 [facility] : 1945 Sex: M Name: SHIRLENE NICHOLAS [facility] : 1945ge/S: 74 / M [address] [address] Unit #: [id number] Loc: [place] [address] Phys: Sapna Rosas MD Acct: [id number] Dis Date: Status: ADM IN PHONE#: [phone] Exam Date: 01/04/2020 1230 FAX #: Reason:abd pain EXAMS: CPT: [id number] CT ABD PELVIS W/CONT 50590 CT abdomen and pelvis with IV contrast. [...] 1 Signed Report (CONTINUED) Name: SHIRLENE NICHOLAS [facility] : 1945 Age/S: 74 / M [address] [facility] Unit #: [id number] Loc: [place] [address] Phys: Sapna Rosas MD Acct: [id number] Date: Status: ADM IN PHONE #: [phone] Exam Date: 01/04/2020 1230 FAX #: Reason: abd pain EXAMS: CPT: [id number] CT ABD PELVIS W/CONT 40440 <Continued> Interval development of upper abdominal foci [...] above. at 1306 Reported and signed by: Kveon Angela M.D. CC: Sapna Rosas MD; Morteza Arriaza MD Technologist:Jennifer Abbasi, RT(R) CTDI: DLP: Trnscb Date/Time: 01/04/2020 (1306) t.SDR.RH16 Orig Print D/T: S: 01/04/2020 (1889) PAGE 2 Signed Report- XR ABDOMEN 1 [id number] 08:50:00 [facility] : 1945 Sex: M Name: SHIRLENE NICHOLAS [facility] : 1945ge/S: 74 / M [address] [address] Unit #: [id number] Loc: [place] [address] Phys: Sapna Rosas MD Acct: [id number] Dis Date: Status: ADM IN PHONE#: [phone] Exam Date: 01/04/2020 0837 FAX #: Reason: abd pain EXAMS: CPT: [id number] XR ABDOMEN 1 V 25591 Fluoro Time: DAP (Gy m2): Air Kerma [...] MD PAGE 1 Signed Report Name:SHIRLENE NICHOLAS [facility] : 1945 Age/S: 74 / M [address] [address] Unit #: [id number] Loc: [place] [address] Phys: Sapna Rosas MD Acct: [id number] Dis Date: Status: ADM IN PHONE #: [phone] Exam Date: 01/04/2020 0837 FAX #: Reason: abd pain EXAMS: CPT: [id number] XR ABDOMEN 1 V 73806 Fluoro Time: DAP(Gy m2): Air Kerma (mGy): <Continued> Technologist: Anne-Marie Cuevas RT(R)(CT) Trnscb Date/Time: 01/04/2020 (0850) tTIMMY.RH16 Orig Print D/T: S: 01/04/2020 (0853) PAGE 2 Signed Report- XR CHEST 1 [id number] 08:50:00 [facility] : 1945 Sex: M Name: SHIRLENE NICHOLAS [place] : 1945ge/S: 74 / M [address] [address] Unit #: [id number] Loc: [place] [address] Phys: Sapna Rossa MD Acct: [id number] Dis Date: Status: ADM IN PHONE#: [phone] Exam Date: 01/04/2020 0837 FAX #: Reason: cough EXAMS: CPT: [id number] XR CHEST 1 V 01889 Fluoro Time: DAP (Gy m2): Air Kerma [...] MD PAGE 1 Signed Report Name:SHIRLENE NICHOLAS [place] : 1945 Age/S: 74 / M [address] [address] Unit #: [id number] Loc: [place] [address] Phys: Sapna Rosas MD Acct: [id number] Dis Date: Status: ADM IN PHONE #: [phone] Exam Date: 01/04/2020 0837 FAX #: Reason: cough EXAMS: CPT: [id number] XR CHEST 1 V 38398 Fluoro Time: DAP(Gy m2): Air Kerma (mGy): <Continued> Technologist: Anne-Marie Cuevas RT(R)(CT) Trnscb Date/Time: 01/04/2020 (0850) tVERENAR.RH16 Orig Print D/T: S: 01/04/2020 (0853) PAGE 2 Signed ReportBASIC METABOLIC [id number] 10:05:00 Test Item Value Reference Range Interpretation [...] code = CA) 7.4 MG/DL 8.5-10.1 L [id number] 10:05:00 Test Item Value Reference Range Interpretation Comments MAGNESIUM (test code = MAG) 1.7 MG/DL 1.8-2.4 L PROTHROMBIN [id number] 09:57:00 Test Item Value Reference Range Interpretation Comments PT PATIENT (test code = PTP) 11.5 SECONDS 9.3-12.9 N INTERNATIONAL NORMAL RATIO 1.02 INR Unit 0.8-1.2 N (test code = INR) CBC W/AUTO [id number] 09:50:00 Test Item Value Reference Range Interpretation [...] REQUIRED (test code NO DIFF/SCN CRITERIA = VICENTE) - CT ABD PELVIS W/O [id number] 10:46:00 [facility] : 1945 Sex: M Name: SHIRLENE NICHOLAS [facility] : 1945ge/S: 74 / M [address] [address] Unit #: [id number] Loc: [place] [address] Phys: Jason Rosa MD Acct: [id number] Dis Date: Status: ADM IN PHONE#: [phone] Exam Date: 01/02/2020 1005 FAX #: Reason:PEG placement planning EXAMS: CPT: [id number] CT ABD PELVIS W/O CONT 54474 EXAM: CT pelvis abdomen and without contrast [...] 1 Signed Report (CONTINUED) Name: SHIRLENE NICHOLAS [facility] [place] : 1945 Age/S: 74 / M [address] [address] Unit #: [id number] Loc: [place] [address] Phys: Jason Rosa MD Acct: [id number] Dis Date: Status: ADM IN PHONE #: [phone] Exam Date: 01/02/2020 1007 FAX #: Reason: PEG placement planning EXAMS: CPT: [id number] CT ABD PELVIS W/O CONT 57939 <Continued> Evaluation of the bladder is limited, [...] 2 Signed Report (CONTINUED) Name: SHIRLENE NICHOLAS : 1945 Age/S: 74 / M [address] [address] Unit #: [id number] Loc: [place] [address] Phys: Jason Rosa MD Acct: [id number] Dis Date: Status: ADM IN PHONE #: [phone] Exam Date: 01/02/2020 1003 FAX #:Reason: PEG placement planning EXAMS: CPT: [id number] CT ABD PELVIS W/O CONT 30538 <Continued> at 1046 Reported and signed by: French Vazquez M.D. CC: Sapna Rosas MD; Jason Rosa MD; Morteza Arriaza MD Technologist:Viola Leger, RT(R) CTDI: DLP: Trnscb Date/Time: 01/02/2020 (1046) t.SDR.HPD Orig Print D/T: S: 01/02/2020 (2617) PAGE 3 Signed ReportCOVID 19 INHOUSE [id number] 13:50:00 Test Item Value Reference Range Interpretation Comments COVID 19 INHOUSE AG NEGATIVE Negative Per harjit factpeggyr, (test code = negative result s should [id number]) be treated aspr esumptive and, if inconsi [...] symptoms co nsistent with COVID-19. CBC W/AUTO [id number] 12:12:00 Test Item Value Reference Range Interpretation [...] NO DIFF/SCN CRITERIA = MDIFF) BASIC METABOLIC [id number] 12:12:00 Test Item Value Reference Range Interpretation [...] code = CA) 8.5 MG/DL 8.5-10.1 N ECNQDZDHSDOK9077-42-68 10:27:89446Ihzgnssa IjzpahzUGNEOZDNKEWJ0617-11-44 10:27:000.51[facility] GnlijwwLVETZNWTAJZE9441-22-62 10:27:0026[facility] BSLIYLPVHAXU4440-75-18 10:27:0097[facility] GthwdyqGPHYTSMDOMDD9909-57-20 10:27:00 3.7[facility] QqmgbkbBYAHCFETFMIG8929-97-75 10:27:007.8[facility] EYOOSNVBXAUU1196-02-43 10:27:00944Uavxceus RmnaifyBUBLTOHYISIK7629-36-60 10:27:0012.7[facility] EnpoeqqKPVHIETOLRCO7530-26-96 10:27:007[facility] EXIKFICJKXYB4987-04-02 10:27:17413Jmoakkql HermannBACTERIAL - PGCEWGUK1275-63-48 15:36:00Negative (06/23/16 10:36 AM)[facility] HermannBODY UEYTBA9187-64-08 15:36:0050[facility] HermannBODY FWICZY5109-22-03 15:36:25390Chsotiye HermannBODY GOOPQD1861-62-11 15:36:00Colorless (06/23/16 10:36 AM)[facility] HermannBODY FLUIDS 2016-06-23 15:36:00 Test Item Value Reference Range Interpretation Comments Tube Num CSF (test code = Tube Num CSF) 4 1 [facility] HermannBODY AJILQS5292-73-94 15:36:79426Qvnzotpt HermannBODY FLUIDS 2016-06-23 15:36:00Clear (06/23/16 10:36 AM)[facility] HermannBODY OBGDRI2942-51-12 15:36:0073[facility] HermannBODY XSMKHY5673-65-01 15:36:00Colorless (06/23/16 10:36 AM)[facility]annBODY MQFVLM7863-79-25 15:36:0082[facility] HermannBODY WGCJSP1237-89-87 15:36:005[facility]annBODY ZJVVTE9796-23-01 15:36:0012 [facility]annBODY AVRRUH2977-67-69 15:36:001[facility] HermannIMMUNOLOGY 2016-06-23 15:36:00Non Reactive (06/23/16 10:36 AM)[facility] HermannVIRAL - LZZMVPOF1798-37-31 15:36:00Negative (06/23/16 10:36 AM)[facility] HermannTOXICOLOGY 2016-06-23 14:34:692567Feamjuhg KbqafzbXDRJIAKWIX4977-19-35 14:34:0011.2[facility] HermannBACTERIAL - MTSQDLRX4367-91-38 09:34:00Urine *NA*(06/23/16 4:34 AM) [facility] HermannBACTERIAL - RSQCGFCV0671-41-17 09:34:00Negative (06/23/16 4:34 AM)[facility] DifzggnGHTGLPLFJZFS6831-16-85 09:20:43532Wpdovwoi Damien SJAGLVYQSQIJ7633-81-71 09:20:0010[facility] UzwxyqnHCXFTMFWZWSM3787-50-70 09:20:00 98[facility] VuyunuhQGMQCKONBODW6490-35-79 09:20:000.68[facility] TNVVTMRWUWXO7122-09-33 09:20:004.1[facility] SavyzshYTVRWMZATOUP2539-31-64 09:20:0097[facility] OmueqdbPTWGOPIMFWXI5084-40-15 09:20:0017.1[facility] RKJDGMVOLHMU9099-91-89 09:20:007.9[facility] UiykbovFDWFTIJQHRVD5757-80-65 09:20:0019[facility] MjiyzwiASBFOHSOTVRR8243-66-72 09:20:0098[facility] HermannCHEM DTTXF9168-89-01 09:19:0082[facility] HermannCHEM FGZED5009-85-34 09:19:0012 [facility] HermannCHEM UVXQU3678-99-00 09:19:40423Raugorur HermannCHEM PANEL 2016-06-22 09:19:000.67[facility] HermannCHEM ZZRFO1433-26-68 09:19:003.7[facility] HermannCHEM KKULL9620-61-74 09:19:0098[facility] HermannCHEM BWOTW3054-37-46 09:19:0023[facility] HermannCHEM OXGNB6181-57-55 09:19:008.0[facility] HermannCHEM OYRJN2955-28-27 09:19:0097[facility] HermannCHEM ZZOVY0638-98-82 09:19:0015.7 [facility] IbqogomRSQKFDDDEQ9370-97-91 09:19:009.6[facility] HermannHEMATOLOGY 2016-06-22 09:19:0097[facility] CqldpszLYNAWSVUNM1496-52-65 09:19:008.3[facility] DnyfuzlPGYRRYSDCX8785-57-42 09:19:004.78[facility] YblsclzDJVHINBQDP3332-77-06 09:19:0016.3[facility] FoskwlyTXHNHSLRLL4476-64-10 09:19:0034.0[facility] SNJNAONMZB0719-30-65 09:19:0013.7[facility] LpeeinkEXYFSENUVM5679-29-64 09:19:00 48.0[facility] SyhxgbiTSHGUYTFUA2214-16-64 09:19:39943.4[facility] HermannHEMATOLOGY 2016-06-22 09:19:00 Test Item Value Reference Range Interpretation Comments MCH (test code = MCH) 34.2 pg 27.0-31.0 [facility] WfoyihhYWDZYNQJJP7298-74-98 09:19:001+ *ABN*(06/22/16 4:19 AM)[facility] XrgkbzfNQIGSWYAKT6008-82-56 09:19:001.0[facility] SuqqwjxZYVNHNMFWD6214-52-11 09:19:000.2[facility] VihwdziABCVQJYSRJ9587-37-80 09:19:0012.1[facility] HXDTNBMCWG5709-94-91 09:19:005.5[facility] DqufrppHIGRSGHUDM8421-68-39 09:19:00 81.7[facility] JfuryqlQAONRKGXCK5911-21-96 09:19:000.5[facility] HermannHEMATOLOGY 2016-06-22 09:19:000.5[facility] RubcfpzTALDXYGOOM1158-39-70 09:19:006.8[facility] KptxxwtNVWLPSDZPB3265-90-01 08:24:0057.8[facility] HermannCHEM XSGFX4377-45-64 00:57:001.6[facility] HermannURINE AND BDXWR2608-25-16 22:17:00Negative *NA*(06/21/16 5:17 PM)[facility] HermannURINE AND QVDZM3414-30-42 22:17:00Slight *ABN*(06/21/16 5:17 PM)[facility] HermannURINE AND YWTHP3374-24-14 22:17:005.0 [facility] HermannURINE AND BWEVM0588-26-51 22:17:001.023[facility] HermannURINE AND SKSQB8366-59-26 22:17:00Yellow *NA*(06/21/16 5:17 PM)[facility] HermannURINE AND KRNUO4119-74-30 22:17:00Small *ABN*(06/21/16 5:17 PM)[facility] HermannURINE AND KTRVI1054-00-29 22:17:00Negative (06/21/16 5:17 PM)[facility] HermannURINE AND RLPOI3353-50-44 22:17:00Negative (06/21/16 5:17 PM)[facility] HermannCARDIAC MEHNXQY0106-77-10 21:15:000.02[facility] HermannCARDIAC LPTIEAJ3139-22-97 21:15:00 <0.5[facility] HermannCARDIAC VINAUHQ3476-72-55 21:15:0049[facility] CARDIAC ZZCJTEH6589-35-32 21:15:00<1.0[facility]annCHEM CZUTL2776-03-68 21:15:0025[facility]annCHEM JNMRR2436-36-87 21:15:003.6[facility]annCHE[facility] IDWDT1081-75-17 21:15:000.9[facility]annCHE[facility] IMAHC4315-53-85 21:15:0056 [facility] MLMKZ2091-44-46 21:15:0024[facility]annCHEM PANEL 2016-06-21 21:15:000.7[facility]annCHE[facility] MIQNX2361-85-56 21:15:003.2[facility]annCHE[facility] QKOEF9330-55-40 21:15:0031[facility]CHE[facility] YHKDG6966-67-42 21:15:006.8[facility] EcbautiBUPMHXANRR9170-44-54 21:15:00 Test Item Value Reference Range Interpretation Comments PT (test code = PT) 12.4 s 12.0-14.7 [facility] GhegsstHXCATTPUCE5616-93-58 21:15:000.91[facility]annHEMATOLOGY 2016-06-21 21:15:009.2[facility] OikgypfAJOTDMSMZV5708-83-75 21:15:0013.6[facility] ZqmsiagFVNPFAQGWK4778-53-19 21:15:0016.4[facility] DdjntqwYQDGESSPRV2484-35-30 21:15:0034.3[facility] KujqpdpZKYXKCAABV9544-16-62 21:15:0099[facility] VXHGRCGAMC4008-70-84 21:15:0099.1[facility] XoezhloWUCPWFTTSB2136-44-84 21:15:00 Test Item Value Reference Range Interpretation Comments MCH (test code = MCH) 34.0 pg 27.0-31.0 [facility] JccjeskEAIQJCGNBD0358-67-41 21:15:0047.9[facility]annHEMATOLOGY 2016-06-21 21:15:0010.1[facility] GviqmqoTFYNSPCFJQ1310-09-79 21:15:004.83[facility] ScguctgJYUYPYAVIV2637-77-28 21:15:00 Test Item Value Reference Range Interpretation Comments PTT (test code = PTT) 28.2 s 22.9-35.8 [facility] LoonawyUGONTDWILU0948-35-71 21:15:001.0[facility]annHEMATOLOGY 2016-06-21 21:15:0085.4[facility] SoybqzeFHGPRYBJPJ8078-74-70 21:15:000.3[facility] SuxzqcrTDYAMDUFKJ5366-05-16 21:15:000.2[facility] ClabvmsQNMDPHMEPI0845-06-19 21:15:0010.2[facility] MjrmsqxTLRPUWZGBB3319-55-70 21:15:003.9[facility] KITNAWWDEX1766-36-20 21:15:000.4[facility] DulemwcCMNMAOMQNO0157-60-64 21:15:008.6 [facility] BzqtitrOYDFIKBAEX8785-60-66 21:15:00Normal (06/21/16 4:15 PM)[facility] BlwdbmlHHAVUFPOSZ1908-89-83 21:15:00Normal (06/21/16 4:15 PM)[facility] CDZZF7679-81-04 21:15:00Negative (06/21/16 4:15 PM)[facility]annVIRAL - OTUJSWPN6026-02-70 21:15:00Negative (06/21/16 4:15 PM)[facility]AL - ZKWWJSSE3677-98-68 21:15:00Negative (06/21/16 4:15 PM)[facility]annCHEM PANEL 2016-05-18 11:43:0092[facility]annCHEM XMXLT5563-02-02 11:43:0049[facility]annCHE[facility] WCFZO2569-59-36 11:43:000.6[facility]annCHE[facility] LVLBW4755-34-47 11:43:005.0[facility]annCHEM QOACN0255-93-06 11:43:0023[facility]annCHEM PHBTW3622-59-49 11:43:0023[facility]annCHEM GWVDW5467-49-88 11:43:002.5 [facility]CHE[facility] TLQFO9406-36-20 11:43:002.5[facility]annCHEM PANEL 2016-05-18 11:43:001.0[facility]annCHE[facility] NXIZJ0006-49-60 11:43:0021[facility]annCHEM AXEZU9792-75-86 11:43:0011[facility]annCHE[facility] DYGDT2674-32-25 11:43:000.76[facility]annCHE[facility] VXPFP0453-12-33 11:43:0014.6[facility] CHEM HXBMC2147-20-38 11:43:008.0[facility]annCHEM VODKA9227-84-58 11:43:003.6 [facility]annCHE[facility] SFDJU5817-72-86 11:43:46022Sfthdmao HermannCHEM PANEL 2016-05-18 11:43:0095[facility]annCHEM BDIPV4127-36-33 11:43:86567Oqdaefwl HermannCHEM FDJMJ7665-76-95 11:43:008[facility] AxpzumyGFKAQMCDNU9226-61-88 11:43:003.1[facility] CnekjrzPAQFGGDWHX7714-14-10 11:43:001.4[facility] VTSXKRNVQU0520-18-90 11:43:003.2[facility] YnfcllvARTXCXJYSX3671-75-78 11:43:00 11.9[facility] IhsiizbGWVXYCXEUN6770-43-75 11:43:000.4[facility] 11:43:001+ *ABN*(05/18/16 5:43 AM)[facility] FmhbjryKFXAOYGYNC6496-46-93 11:43:000.2[facility] MzetqhoGFKUKKOOFW1897-28-42 11:43:000.6[facility] VPVMNFZXWG8407-77-03 11:43:0025.2[facility] KybprpaWTAHBBHQTX4975-16-51 11:43:00 59.4[facility] SkqtwwkCUKYCFCRXL8269-18-28 11:43:003.95[facility]annHEMATOLOGY 2016-05-18 11:43:005.4[facility] CohfihyAMNYZHEQJE9137-67-47 11:43:34533Tzbipcwd LyxclrnGWYQBWCGYQ9426-71-50 11:43:0014.1[facility] YpyjpipNBWNASIWYR2299-23-71 11:43:009.1[facility] PjzyaolDVCOQSTAMA3118-27-55 11:43:90509.8[facility] ITYXQGQPMY8080-36-93 11:43:0033.5[facility] NsfkfqvLPDSNPHHIE3287-92-50 11:43:00 Test Item Value Reference Range Interpretation Comments MCH (test code = MCH) 35.1 pg 27.0-31.0 [facility] GhtzznqSASPBWFHPM4533-71-61 11:43:0041.3[facility]annHE[facility]OLOGY 2016-05-18 11:43:0013.9[facility]annCHEM TRDPS4390-86-61 00:40:001.2[facility] FtckutgJFQBOACYJA8365-46-65 00:40:00<2.9[facility] TdtgpezMGHLIYEBUG9286-25-45 19:08:009.3[facility] IsximfcXOFQRTFYUY4740-56-93 19:08:42921Ephlbbwg [place] COTCAGBPQD6943-76-93 19:08:0014.3[facility] YblriavNUODCGCNAI4660-75-43 19:08:00 34.4[facility] PpcfedqYZARVDUXWY2965-38-92 19:08:0017.1[facility]annHE[facility]OLOGY 2016-05-17 19:08:004.78[facility] IomqfwhGEHBTLYXOG2652-92-66 19:08:008.4[facility] GydteioRFXCLBFOBY0841-87-88 19:08:00 Test Item Value Reference Range Interpretation Comments MCH (test code = MCH) 35.7 pg 27.0-31.0 [facility] LktkdxeIFHHAUOYVW0630-60-45 19:08:67582.6[facility]HE[facility]Y 2016-05-17 19:08:0049.6[facility] WxmnwkyZMLIKSFVEO9540-77-90 19:08:001+ *ABN*(05/17/16 1:08 PM)[facility] HxmpilsQBUWROEAHP1225-30-57 19:08:000.9[facility] FrgireeNTBNVYFMYD4670-75-88 19:08:000.1[facility] HgvihixDEFJDGLSLZ5645-82-33 19:08:006.0[facility] GkwybioVDNIIEVMZR4439-65-16 19:08:001.1[facility] ZAAWIELPFX6225-81-13 19:08:001.3[facility] IuqeocbYPDVLEMQQH2338-65-75 19:08:000.5 [facility] OazpunuJNYSSFAZUX0476-28-82 19:08:0010.9[facility]annHEMATOLOGY 2016-05-17 19:08:0015.9[facility] ZhrnlyjPNTXEANOIG4772-43-27 19:08:0071.6[facility]annCHEM HKXZH3039-12-21 19:03:001.7[facility] GoxosxzQNGKIZHZKWEH0877-48-50 19:03:0018.3[facility] YzenmkcPYJJICHKRTFV8921-62-62 19:03:006[facility] KNSGKUBPOONK5333-65-47 19:03:003.7[facility] VcbgvrlATBDNQFFZWNC1917-90-92 19:03:001.0[facility] OsofoakMZLWOLRKDCWE8071-34-80 19:03:0032[facility] IPVCZDQCZRXL3839-19-04 19:03:003.7[facility] YopgnxgUGYUDSSICMEE6875-93-90 19:03:0033[facility] AqmfvbrTDZXVUTHDTTI8648-85-21 19:03:0068[facility] LJKJILGBWEAH2692-82-27 19:03:000.5[facility] NpdxjkkMNKMXMCWTKEG0478-70-29 19:03:24617Dumvlvag ZenotwfFEYKMPWOPZQQ2886-07-10 19:03:46961Ybliubdr [facility] OIOSWUVFMXKF9061-15-41 19:03:003.3[facility] ZxpxwfnZTMKRVFCKXOF2491-67-21 19:03:008.8[facility] DfzymldHLGTTFXMXWBQ2116-70-19 19:03:0024[facility] MQCICKFHSGPI9561-89-60 19:03:007.4[facility] QrzpmgkWOCKKUKHQGGD0032-85-99 19:03:000.89[facility] WeulczuVZFEYOOMSBWA6581-97-63 19:03:005[facility] EDNDIGFAXCFT0583-64-14 19:03:0089[facility] WfhybxyVHTMBWWKTHCS7234-66-68 19:03:00 87[facility]annCHEM UWMAD7701-63-23 19:27:0092[facility]annCHEM PANEL 2015-07-19 19:27:008.8[facility]annCHEM YVXZE0195-20-60 19:27:000.78[facility]annCHEM AWCWT7248-03-78 19:27:37355Qkuetptq HermannCHEM FQNKZ8564-65-04 19:27:05612Pzgzvdzw HermannCHEM ELLOT9785-36-74 19:27:0019[facility]annCHEM GAWVR5620-95-66 19:27:60929Vidvuoty HermannCHEM AWCYC0380-29-40 19:27:004.5 [facility]annCHE[facility] CTVSJ1546-39-11 19:27:0028[facility]annCHEM PANEL 2015-07-19 19:27:0011.5[facility] JpqasdfCMOAWZDNAU0825-44-26 19:27:001+ *ABN*(07/19/15 2:27 PM)[facility] WdhvlwcAFXVAHXCCW5120-77-75 19:27:000.2[facility] LqarwzuPGDQGKWYNH4089-72-18 19:27:0011.8[facility] JsniozbRXIGIIUFWH7561-21-69 19:27:000.0[facility] MwfilqkXVOQNYWFQT3709-03-31 19:27:000.4[facility] YBPMEVLERM3985-07-59 19:27:001.4[facility] BcnephxRAOKHRXGQI0248-78-44 19:27:000.3 [facility] KuzpxjrRTFOZJNOBS2176-94-18 19:27:002.0[facility]annHEMATOLOGY 2015-07-19 19:27:0093.2[facility] WqgugrdBQCRNDPGXG0810-65-21 19:27:00Normal (07/19/15 2:27 PM)[facility] GzoabrcPREQPZVKKG1787-89-65 19:27:00Normal (07/19/15 2:27 PM)[facility] QhoxptaGYMDCVEDGI5824-03-28 19:27:000.0[facility]annHEMATOLOGY 2015-07-19 19:27:003.4[facility] WpihuhtEBEEIDDXTJ0327-86-27 19:27:00 Test Item Value Reference Range Interpretation Comments MCH (test code = MCH) 32.9 pg 27.0-31.0 [facility] KhaycrpWAUBLSPAIM0214-00-32 19:27:64004.1[facility]annHEMATOLOGY 2015-07-19 19:27:0032.6[facility] KcwhwmaHIENMROSJQ0510-86-03 19:27:0012.6[facility] OigmwwoMPAROOIDNN4644-89-52 19:27:004.21[facility] MqypwwfDIHVRWEMZF2336-65-74 19:27:0013.9[facility] GfiqbdzROQVAAXWLT3442-12-02 19:27:0042.6[facility] MVSENASRFG7791-88-04 19:27:008.4[facility] PogeyddYLAIBQEEZI9974-95-14 19:27:67364 [facility] GldilazERJTPXCUYI8754-45-01 19:27:0014.6[facility] HermannELECTROLYTES 2015-07-16 10:10:009.3[facility] YuurtfeLJTJHOJPKCLX0632-03-07 10:10:0014[facility] NcmurtsXUEAXZFQYZIJ8068-38-67 10:10:003.2[facility] FovxjuhGASVQGTYPDFM1075-63-58 10:10:000.9[facility] GducqniOANSPJQMQFDS5162-54-89 10:10:004.3[facility] CPZATJYXJJIG7472-31-32 10:10:74288Nrtvotar TovmncuSYBCGRILNTKG2792-65-00 10:10:42386Qjioioga LrryhdrCPNTHGLWTDUM5044-97-72 10:10:0076[facility] JMVKENEXNULF1865-48-34 10:10:75583Pszmhsnh BjzzzexZQUNVTFVPFDZ6617-11-07 10:10:0014[facility] McrmgfpQXLNONHAGNFD5887-23-79 10:10:001.01[facility] CQOXCMQSZEYL6569-92-33 10:10:008.2[facility] AxwvauwYYGVMRGWFCHF6110-21-49 10:10:0028[facility] QevsxbrEPHHREPSBSYX5451-40-11 10:10:003.0[facility] JYPKQIBXNEZU8036-09-85 10:10:0029[facility] WzowaobJYOAJWYGBRDC6739-08-42 10:10:00 6.2[facility] XivtubeETIPAMNNJOTI9041-61-45 10:10:000.4[facility] ACKDAJYZPJRV8530-00-22 10:10:0036[facility] NdljhkwVRQVVDRHAWNB8870-52-38 10:10:00 56[facility] NdnbjkuNWJCJFCVRI1106-49-76 10:10:002.3[facility]annHEMATOLOGY 2015-07-16 10:10:0010.4[facility] EnxaavcLSUNSFNXVS7524-55-16 10:10:000.0[facility] QcxnfnyCTLQYYDRFE7745-58-47 10:10:003.2[facility] UlxknvhIDZVSITPRM5470-34-27 10:10:0094.5[facility] XiydxaiFFNEJAULQW0041-31-67 10:10:000.0[facility] JBSHJOQNPL1113-47-42 10:10:000.0[facility] DjyovjdRXKDLRVQTX9654-80-68 10:10:000.0 [facility] IcuokzySIDKSIYNAQ8254-28-62 10:10:000.3[facility]annHEMATOLOGY 2015-07-16 10:10:000.3[facility] IloycpcQVJHMBKBPG4445-71-85 10:10:0033.3[facility] VwrklzmIDRTHTMOSS0336-54-50 10:10:008.4[facility] JfilefgJTDMSVRZNE0108-06-35 10:10:11619Vfslyady FatomfmFBHTEXLFCT9639-90-67 10:10:00 Test Item Value Reference Range Interpretation Comments MCH (test code = MCH) 33.6 pg 27.0-31.0 [facility] KpezlwhWVUZGICVGV3997-98-54 10:10:0015.5[facility]annHEMATOLOGY 2015-07-16 10:10:0013.6[facility] YklooooLQWCDOJAOM7171-02-53 10:10:004.05[facility] SpogeetVSMUBTPGDD5077-15-94 10:10:75199.9[facility] AzucwhlXDPFWCKCHI5416-14-08 10:10:0040.9[facility] MubwgzoDZJIATFNXW5303-42-94 10:10:0011.0[facility] CHEM CCUZJ2373-11-19 23:15:0014[facility]annCHEM FZHSH0909-28-39 23:15:21035 [facility]annCHE[facility] QWNQP9595-83-80 23:15:92187Umgwtray HermannCHEM PANEL 2015-07-15 23:15:27745Tiitkitr HermannCHEM QBTXV8361-37-27 23:15:004.1[facility]annCHEM GIWRA6089-77-69 23:15:0025[facility]annCHEM RGHPL1157-28-48 23:15:003.5[facility]annCHEM DDVZR5860-93-15 23:15:008.9[facility]annCHEM YKCLM0920-86-90 23:15:0063[facility]annCHEM WLBXI3515-34-79 23:15:0035 [facility]annCHE[facility] PBXBF8411-88-91 23:15:001.17[facility]annCHEM PANEL 2015-07-15 23:15:0040[facility]annCHEM OTYZP5163-65-36 23:15:007.0[facility]annCHEM RNZHB6092-30-84 23:15:0066[facility]annCHEM LKGRZ9381-37-62 23:15:000.4[facility]annCHEM HHWJA4512-25-77 23:15:0015.1[facility]annCHEM MJQII0320-07-46 23:15:003.5[facility]annCHEM AUNLP7676-94-24 23:15:001.0 [facility]annCHE[facility] MHIGY9411-10-50 23:15:0012[facility]annHEMATOLOGY 2015-07-15 23:15:000.98[facility] IcjrxihMOGIRPHNWC0574-11-19 23:15:00 Test Item Value Reference Range Interpretation Comments PT (test code = PT) 13.3 s 12.0-14.7 [facility] PhgfhceHQHQOHWHEA2659-70-28 23:15:16018Ztxwqvov HermannHEMATOLOGY 2015-07-15 23:15:008.1[facility] AbrqxygCAIEVYWTBC2629-11-38 23:15:0045.9[facility] GlowwmiSISIPRTQTG5614-71-90 23:15:0032.4[facility] FzpbrdlKORVCLFESQ5575-21-53 23:15:0015.2[facility] IxunjtdPWLCOEXJLT9756-71-97 23:15:13691.9[facility] FWTWRIBJZQ1890-95-98 23:15:00 Test Item Value Reference Range Interpretation Comments MCH (test code = MCH) 33.0 pg 27.0-31.0 [facility] SfhqcozLBUEQYMZAV8252-06-56 23:15:0017.8[facility]annHEMATOLOGY 2015-07-15 23:15:004.51[facility] SdvtvflUVSOWSKVLY2435-81-94 23:15:0014.9[facility] ZsjpsqtUOXZPPCKMU3975-44-85 23:15:001.1[facility] DduskriEFZHKFGCXJ0130-92-99 23:15:000.0[facility] BapwuvmKRVYVMWQHE3999-01-74 23:15:0015.4[facility] UMHFVOKGIM9822-88-58 23:15:001.4[facility] SycoubqBRARVHBDGT8131-56-04 23:15:000.0 [facility] DzolsuwDNZNYGPLPB7484-00-50 23:15:000.0[facility]annHEMATOLOGY 2015-07-15 23:15:000.1[facility] BgkvtduODMPMLQVKJ7380-93-08 23:15:001+ *ABN*(07/15/15 6:15 PM)[facility] DjjoepiLLQRYNRAKR0226-94-80 23:15:006.0[facility] FykdyehRNZUNCPVCB0828-85-15 23:15:00Normal (5/4/16 6:15 PM)[facility] OSXWPVUFIM0250-57-41 23:15:00Normal (07/15/15 6:15 PM)[facility]annHEMATOLOGY 2015-07-15 23:15:007.7[facility] IutpmrdMVEAPWHMYU0948-78-30 23:15:0086.2[facility] HermannCHEM LIXCX2680-31-22 10:30:0088[facility]annCHEM PNYLM2075-27-48 10:30:0011.4[facility]annCHEM DIGEC4179-69-77 10:30:008.9[facility]annCHEM ZKGYI3923-32-13 10:30:0028[facility]annCHEM TZNYC5098-74-54 10:30:0010 [facility]annCHEM KCBEC1342-80-98 10:30:000.87[facility]annCHEM PANEL 2015-07-14 10:30:97120Vfdmxahu HermannCHEM XVSTW9775-23-54 10:30:18209Ktlgrkoe HermannCHEM WVKNU0438-64-53 10:30:004.4[facility]annCHEM NBPJA5559-18-03 10:30:37421Ilnsfxcv IvicthlZGKLEAHQFJ8278-33-41 10:30:000.0[facility] VXFADLKTJO4544-50-19 10:30:000.0[facility] MokoafqYDSXGSNTCW2127-57-15 10:30:000.1 [facility] QvjsfikRCXVMVSLET0956-88-00 10:30:001.9[facility]annHEMATOLOGY 2015-07-14 10:30:0092.6[facility] PhlauplEYRRNIFNXY3045-01-57 10:30:005.5[facility] AxijuwiEFNEANZERM3476-05-73 10:30:000.0[facility] DabobmfPWVXVNHMFH0845-98-24 10:30:000.0[facility] YoaovsrTRABIDIUFO3449-55-81 10:30:005.1[facility] EBSBKOKWCL5134-42-97 10:30:000.3[facility] DghusrpRTAGQDQJNT3537-94-96 10:30:00 100.8[facility] ObfzcaxBCUTEJKWTU8805-35-36 10:30:61247Iyyhwzbm HermannHEMATOLOGY 2015-07-14 10:30:008.1[facility] JnlqdqvTEAYDKIMWW5734-23-65 10:30:0014.9[facility] DnczkanMJJLPEANDD6139-24-44 10:30:0013.6[facility] CldsfkwDANGABUYUL3031-74-68 10:30:004.11[facility] JtoobvzPDUFBDHCFK3696-21-10 10:30:0041.5[facility] BOVJLRSXNA7621-55-62 10:30:005.5[facility] VmgtfzzFCMFMOPJXX3465-07-49 10:30:00 Test Item Value Reference Range Interpretation Comments MCH (test code = MCH) 33.0 pg 27.0-31.0 [facility] YefbegwTCODAOWNDR2853-28-45 10:30:0032.7[facility]annCHEM PANEL 2015-07-14 01:11:0093[facility]annCHEM JJEGD3473-94-17 01:11:000.76[facility] BrocaefZFAZBVCVOK4868-82-30 01:11:06253Twsxcbgi HuvwcpsDPIIFXCORY6392-07-59 01:11:00 Test Item Value Reference Range Interpretation Comments PTT (test code = PTT) 26.6 s 22.9-35.8 [facility]annCARDIAC OGGTXMJ4889-33-86 21:04:0070[facility]annCARDIAC QNXVAKO0751-84-50 21:04:00<0.02[facility]annCARDIAC MTXIWTI4701-60-75 21:04:001.7[facility]annCARDIAC COFZFYV2752-22-55 21:04:002.4[facility] CHEM YRMHU5807-94-63 21:04:0028[facility]annCHEM LJJYX2107-75-97 21:04:0030 [facility]annCHEM VJCRN1930-19-94 21:04:003.0[facility]annCHEM PANEL 2015-07-13 21:04:006.6[facility]annCHEM JPUJB1863-29-20 21:04:008.8[facility]annCHEM CVLTC8680-47-33 21:04:003.6[facility]annCHEM XGLGK7220-39-81 21:04:006[facility]annCHEM QNIDP6736-15-98 21:04:0011.8[facility]annCHEM PMBXB0193-08-65 21:04:000.4[facility]annCHEM USPRB9538-79-28 21:04:0065 [facility]annCHEM LREXV9003-46-17 21:04:005[facility]annCHEM PANEL 2015-07-13 21:04:40314Bjsgahkf HermannCHEM XNOQM4984-94-78 21:04:0029[facility]annCHEM JNFEN2297-95-64 21:04:88058Uiblpxgg HermannCHEM KZRSW5888-71-57 21:04:003.8[facility]annCHEM JMHJE5481-51-34 21:04:67896Qhvvzors HermannCHEM PPIGI9431-19-33 21:04:000.80[facility]annCHEM WLLFX0416-62-32 21:04:000.8 [facility]annCHE[facility] UVFSQ3135-64-45 21:04:0091[facility]annHEMATOLOGY 2015-07-13 21:04:008.5[facility] TxamqypHBYDZGVUBB7195-98-51 21:04:0015.2[facility] WbknzzmRKRFMZZZBB3334-13-56 21:04:53726Pveeegmj MdkbjguMOMEVNGUKJ2800-23-83 21:04:0033.1[facility] CzpbihiJCOLMLNYVV9920-18-91 21:04:005.8[facility] ICSYXNPXCB3850-97-25 21:04:0099.9[facility] ZqxzajlYTZJRTJDSA6053-05-73 21:04:00 Test Item Value Reference Range Interpretation Comments MCH (test code = MCH) 33.0 pg 27.0-31.0 [facility] BwwliiyHDMOTGERPW7153-21-20 21:04:0042.8[facility]annHEMATOLOGY 2015-07-13 21:04:004.28[facility] DquakzsQTUPTCUYYG9497-79-05 21:04:0014.2[facility] XajhhbjGVRFVARETT1279-72-67 21:04:005.8[facility] SvtwllbEARSIMMGFP2840-13-45 21:04:000.0[facility] HxhsqrzPJXLNYQIJS6656-95-40 21:04:0010.7[facility] VGQQKYPGFM9472-53-84 21:04:000.3[facility] HrvniybXJMFIDLLVR9913-08-54 21:04:000.6 [facility] MdaypelSIEPXFMJNO8085-80-21 21:04:000.0[facility]annHEMATOLOGY 2015-07-13 21:04:0083.4[facility] JzkjkceILWXHAWVXF7203-27-59 21:04:004.8[facility] TmclscjNYBHQVHEMT3569-32-93 21:04:000.1[facility] OelkkupCPPVRXDDYK0430-29-05 21:04:000.0[facility]annCHEM ZDGZC6589-39-30 10:54:002.2[facility]annCHEM CMOWS8787-30-68 10:54:0091[facility]annCHEM CKEHX4684-55-88 10:54:003.1 [facility]annCHEM JFENQ8543-04-88 10:54:000.9[facility]annCHEM PANEL 2015-05-06 10:54:19469Svtejfak HermannCHEM GNITS0289-39-60 10:54:000.3[facility]annCHEM SLQVB4243-25-06 10:54:0014.1[facility]annCHEM FMDAA6694-79-55 10:54:0025[facility]annCHEM ASPEL8577-21-27 10:54:000.79[facility]annCHEM MGUVF3008-55-33 10:54:0020[facility]annCHEM CUTZC3084-58-93 10:54:0025 [facility]annCHEM PZCOL6789-46-87 10:54:008.4[facility]annCHEM PANEL 2015-05-06 10:54:006.0[facility]annCHEM DDVSD1639-37-16 10:54:002.9[facility]annCHEM XWMWF9408-00-00 10:54:0074[facility]annCHEM QIIRK6542-70-10 10:54:0022[facility]annCHEM GOWVO4715-53-35 10:54:0046[facility]annCHEM XMQDR3160-52-68 10:54:004.1[facility]annCHEM XJDQL6842-45-00 10:54:43377 [facility]annCHEM QEJLG3849-93-70 10:54:74063Wdfmvasn HermannHEMATOLOGY 2015-05-06 10:54:0014.1[facility] UtnteizEKZQJDFPFR2233-75-55 10:54:004.17[facility] RbzwkthYUXVPDEITH1111-31-61 10:54:0013.8[facility] HbztjvfFVAKXQJSMN6555-59-10 10:54:0033.5[facility] ScyyvwwJQVXJVDCQW5814-01-26 10:54:008.9[facility] MVMIBVSGCQ5459-33-40 10:54:30607Ynkwdlkt RzgeswsERGNXVCFMQ8909-03-98 10:54:00 13.0[facility] IpqxzqhVKAXWOMYSP7474-76-54 10:54:0042.0[facility]annHEMATOLOGY 2015-05-06 10:54:00 Test Item Value Reference Range Interpretation Comments MCH (test code = MCH) 33.8 pg 27.0-31.0 [facility] PssaqwdHKDIIDBSDQ7479-69-79 10:54:87894.7[facility]annCHEM PANEL 2015-05-04 23:48:0072[facility]annCHEM QGHQI3613-41-90 23:48:001.05[facility]annCHEM KPWBT3192-24-57 23:48:01673Ectpgkxk HermannCHEM YPSZC4753-98-69 23:48:0022[facility]annCHEM JYXTU6120-51-46 23:48:85423Zszmwnkn HermannCHEM CASLC1323-33-87 23:48:008.7[facility] HermannCHEM AHJAM4335-41-36 23:48:0029 [facility]annCHEM VQRUX0110-65-11 23:48:004.3[facility]annCHEM PANEL 2015-05-04 23:48:52051Tpzaxqrp HermannCHEM SHIPL8299-83-94 23:48:0011.3[facility] HsingojKVRLCIONCH4630-56-57 23:48:0045.4[facility] AlihezvPQXWGEHCOV6489-30-19 23:48:00 Test Item Value Reference Range Interpretation Comments MCH (test code = MCH) 33.8 pg 27.0-31.0 [facility] XkwsrprFKRGRJBCLN4143-59-42 23:48:14616.0[facility]annHEMATOLOGY 2015-05-04 23:48:008.7[facility] TnmjzprPYKTYLBSRB2814-29-04 23:48:0033.5[facility] AhjktnsMFIFHNENTP2051-33-17 23:48:0015.2[facility] IkucrdsDJFPZSVQYI8997-97-28 23:48:004.50[facility] PafminiLJQCETDHOW9502-85-51 23:48:0012.5[facility] SVYONYGNOA2737-44-55 23:48:93762Jehovpyn HtevgrdLRBNOEBCBT8563-19-26 23:48:00 14.0[facility] RfeuwxcUIBVMCHXHBRT1754-18-06 19:10:0088[facility] RCXICAHDAFEF7125-26-15 19:10:81722Mnjvokie LzdcbagZVRRUDWNUGIU3014-07-47 19:10:0027[facility] BamsqakXBUKRRKYXMAG8671-77-67 19:10:008.9[facility] YMCADIMPUADP7243-98-86 19:10:0010[facility] UqdarrxKQECXJRTSDQP7143-79-70 19:10:00 0.9[facility] ZszbcsoUDKYDTYVIU2821-54-60 19:10:000.6[facility]annHEMATOLOGY 2013-05-16 19:10:000.1[facility] VlwqfvqKSFGRFYXQE5071-54-55 19:10:000.0[facility] IexlcssOLLHLAILRT4399-19-70 19:10:001.6[facility] OxrfqtxGUBZUWSMUP8392-04-62 19:10:007.2[facility] TcexweqYIBCGWNLCW4069-36-02 19:10:006.2[facility] SQZPMQXJFD5417-76-50 19:10:000.2[facility] TdqdqtuPACRWKWMXO6664-08-62 19:10:001.1 [facility] XrqkvqxGEVAELVRVU6284-23-18 19:10:0014.2[facility]annHEMATOLOGY 2013-05-16 19:10:0076.8[facility] XgvowtmKWPOPSOGIB2400-22-50 19:10:0098.1[facility] EsipdsoDJBQFIYOQF7627-47-18 19:10:0013.9[facility] SfwzjdsEMUHSHENQA6800-71-48 19:10:00 Test Item Value Reference Range Interpretation Comments MCH (test code = MCH) 33.3 pg 27.0-31.0 [facility] ZjbhjnjQWGSGXMSNE1822-66-32 19:10:0040.9[facility] HermannHEMATOLOGY 2013-05-16 19:10:0034.0[facility] MlhuqwxNSGGYGQUTP5885-75-71 19:10:01775Emxkrigr MepuhseNANUKLLITG0974-72-61 19:10:0013.7[facility] WismwxtIGIBGTFIGS2688-36-42 19:10:008.9[facility] KnxyoqmRPTALIMPQH2668-70-94 19:10:004.17[facility] DPJOBXOHBM6575-09-94 19:10:008.0[facility] VrjztemZIQZAOBVPOSP9824-74-85 19:10:00 11.8[facility] UkhbzjoCZPMYNIHCXDY7190-99-33 19:10:98670Dvulzlsd [place] KITDXYDOLDER5697-60-68 19:10:05420Zwcbnxas TgnnjoiCNWGKPYKWZZX7828-91-82 19:10:003.8[facility] ArazxobCUMBPXWHNK3874-72-59 08:55:40Slight *ABN*(09/12/2012 03:55:40)[facility] JufxdqdMGUGYPAREF3832-10-96 08:55:40Slight *ABN*(09/12/2012 03:55:40)[facility] DrvqgvrUJZKWRSRWO3287-50-15 08:55:40Slight *ABN*(09/12/2012 03:55:40)[facility] SzwcpppFQCFHYZICQ7549-78-03 08:55:400.0[facility] [place] MFGVXIOSBI4556-82-55 08:55:401+ *ABN*(09/12/2012 03:55:40)[facility] [place] FDEMVSJAAD4021-36-98 08:55:400.5[facility] MnaafqdDCTKTCUEHD2820-50-49 08:55:400.0 [facility] PdceisdKLBYFWEZSP4114-57-44 08:55:400.8[facility]annHEMATOLOGY 2012-09-12 08:55:404.6[facility] OatxvomMZFEVFJSKX3790-88-94 08:55:403.1[facility] EocfqalULNOPBICIB5983-55-75 08:55:4015.4[facility] TogfnsnMVRINFCBWB4077-61-03 08:55:400.0[facility] FdtfcunNNOJLDHHOY9198-86-98 08:55:400.0[facility] ZQDDRTWUJU8760-88-31 08:55:40Normal (09/12/2012 03:55:40)[facility] [place] POSVUCBXFJ3758-44-42 08:55:4092.3[facility] IjrjztsRXWIWSHXJP4815-96-46 08:55:40 0.0[facility] AsciihdQLIBBTBEWE3883-76-92 08:55:409.3[facility]annHEMATOLOGY 2012-09-12 08:55:4040.0[facility] HcdlqncNORAZSUFQI4421-89-16 08:55:4097.4[facility] ZidvgkyAXTEURCYYY8870-54-63 08:55:40 Test Item Value Reference Range Interpretation Comments MCH (test code = MCH) 32.4 pg 27.0-31.0 H [facility] IyqlpabTLHRSLRPDK0097-63-33 08:55:4013.3[facility]annHEMATOLOGY 2012-09-12 08:55:4016.7[facility] SwlgvmqVJSWPAKNBM0081-64-33 08:55:404.11[facility] LwnzqtoAWWVAOROLM1855-59-41 08:55:4033.3[facility] BjnxnpvKBQIBPNHVU2619-21-12 08:55:4015.0[facility] AnucyztLGXBYTUHVV8775-41-86 08:55:79033Dkyaamej [place] SJICOVQYN4743-97-89 17:30:0078[facility] UfdnysxPRKTJOCXI2027-24-36 17:30:82409 [facility] UailvdaFKTXUVQCH7927-61-18 17:30:0027[facility]annCHEMISTRY 2012-09-11 17:30:001.0[facility] BnrwdikDOMNFAKSD8490-50-68 17:30:009.0[facility] NlwsrziAFMXCVPYQ5086-43-63 17:30:69135Vlzqipsg HjpdkilFLLZSZLQT0569-65-82 17:30:004.4[facility] PirouxcJMNHZHBMW9539-69-22 17:30:0015[facility] [place] PNAOXJBTX0766-51-28 17:30:86143Urbwglor YwzlgpbPSFNJPYUC0651-99-57 17:30:0014.4 [facility] FiuprkfUSEHMVKCGR7488-71-86 17:30:0014.7[facility]annHEMATOLOGY 2012-09-11 17:30:0096.9[facility] AjifejgJPQQXSOJSP0390-19-89 17:30:0043.9[facility] FliwinsKQWPTRUEDA3981-41-23 17:30:0033.4[facility] QaajsxcIVTBVOOCUI6576-12-20 17:30:00 Test Item Value Reference Range Interpretation Comments MCH (test code = MCH) 32.4 pg 27.0-31.0 H [facility] RxdtqlwSMFDYCUKIS1053-53-85 17:30:0015.1[facility]annHEMATOLOGY 2012-09-11 17:30:89489Rkauosmc BzsqhwjSQAJGGSWGS0651-39-65 17:30:009.5[facility] DlzwyblGMQCAZALJN5749-87-90 17:30:0018.4[facility] RdmuvmgNTGVOCNECU6311-32-84 17:30:004.53[facility] EynsigdRFGEEZESZL9284-07-69 17:30:000.0[facility] YPQRVOPYNT2154-24-00 17:30:000.0[facility] RbhxgeeBMLYALDUDP5242-94-03 17:30:000.6 [facility] SapjtvuNFCCBKFRUK1973-42-83 17:30:003.2[facility]annHEMATOLOGY 2012-09-11 17:30:0017.1[facility] LypqohhBAESBMEKNX0571-22-07 17:30:000.7[facility] QdqmrfcKNDZDOXWXD0068-76-44 17:30:000.0[facility] DrpqsytXVYZESUCYD2874-30-29 17:30:000.0[facility] TcqbojmGARATIZNKJ3357-47-44 17:30:0092.9[facility] [place] VIHILRQZAQ5546-32-27 17:30:00Normal (09/11/2012 12:30:00)[facility] VCBQSQNBIU9099-24-32 17:30:003.9[facility] BbzaqghUDOHURBVGK5487-70-71 17:30:00 Normal (09/11/2012 12:30:00)[facility]
[2020-06-16] MEDS ORDERED: IPRATROPIUM BROM 0.5MG/2.5ML ONE (10:37)
[2020-06-16] MEDS ORDERED: ALBUTEROL 2.5 MG/3 ML NEB SOL ONE (10:37)
[2020-06-16] MEDS ORDERED: METHYLPREDNISOLONE 125 MG INJ ONE (10:37)
[2020-06-16] MEDS ORDERED: Magnesium Sulfate 2gm IVPB 2 G/50 ML BAG IV ONE (10:38)
[2020-06-16 10:40] LABS: Absolute Lymphocytes (CBC) 0.6 K/uL (0.7-4.9); Basophils % 0.6 % (0-1.3); Hematocrit 36.8 % (39.6-49.0); Lymphocytes % 8.9 % (15.3-44.8); MPV 9.6 fL (7.6-11.3); RBC Red Blood Cell Count 3.66 M/uL (4.33-5.43)
[2020-06-16 10:44] LABS: Protime INR 0.96
--- NOTE | 2020-06-16 11:35 | RAD REPORT ---
EXAM DESCRIPTION: Kamran Single View06/16/2020 11:10 am CLINICAL HISTORY: Shortness of breath COMPARISON: April 2020 FINDINGS: Lungs are hyperaerated. The lungs appear clear of acute infiltrate. The heart is normal size IMPRESSION: COPD without visualization acute abnormality
[2020-06-16 12:06] LABS: BUN Blood Urea Nitrogen 19 mg/dL (7-18); Bicarbonate 32 mmol/L (21-32); Glucose Level 101 mg/dL (74-106); Magnesium 2.4 mg/dL (1.8-2.4); NT PRO-BNP 147 pg/mL (<125); Potassium 3.8 mmol/L (3.5-5.1); Sodium Level 144 mmol/L (136-145); Troponin (Emerg Dept Use Only) < 0.02 ng/mL (0.0-0.045)
--- NOTE | 2020-06-16 13:23 | RAD REPORT ---
EXAM DESCRIPTION: CT - Chest For Pe Angio - 06/16/2020 1:10 pm CLINICAL HISTORY: Chest pain. DYSPNEA COMPARISON: Chest For Pe Angio dated 03/16/2019; Ct Skull/Thigh dated 06/11/2020 TECHNIQUE: CT angiogram of the pulmonary arteries was performed with MIP. All CT scans are performed using dose optimization technique as appropriate and may include automated exposure control or mA/KV adjustment according to patient size. FINDINGS: No evidence of pulmonary thromboembolism. No acute aortic finding demonstrated. Prominent diffuse COPD is present. No significant pericardial or pleural fluid. No concerning bony finding. 33 mm right renal cyst. IMPRESSION: No evidence of pulmonary thromboembolism. Advanced COPD.
--- NOTE | 2020-06-16 13:38 | EDPHYS ---
Physician Documentation [facility] Name: Bossman Gooden Age: 75 yrs Sex: Male : 1945 Arrival Date: 06/16/2020 Time: 09:48 Bed 16 Private MD: ED Physician Tahir Stephen HPI: 06/16 11:25 This 75 yrs old Male presents to ER via Wheelchair with complaints of kb Breathing Difficulty. 11:25 The patient has shortness of breath at rest. Onset: The symptoms/episode began/occurred kb 3 day(s) ago, and became worse today. Duration: The symptoms are continuous. The patient's shortness of breath is aggravated by exertion. Associated signs and symptoms: Pertinent positives: non-productive cough, Pertinent negatives: fever. Severity of symptoms: At their worst the symptoms were moderate in the emergency department the symptoms are unchanged. The patient has not experienced similar symptoms in the past. The patient has not recently seen a physician. Historical: - Allergies: 09:55 Keflex; hb 09:55 Sulfa (Sulfonamide Antibiotics); hb - PMHx: 09:55 Pneumonia; Hypertension; Emphysema; COPD; CAD; EDEMA; Asthma; ESSENTIAL TREMORS; High hb Cholesterol; meningitis; - PSHx: 09:55 Tonsillectomy; Stents on Legs; feeding tube; hb ROS: 11:23 Constitutional: Negative for fever, chills, and weight loss, Cardiovascular: Negative kb for chest pain, palpitations, and edema, Abdomen/GI: Negative for abdominal pain, nausea, vomiting, diarrhea, and constipation, MS/Extremity: Negative for injury and deformity, Skin: Negative for injury, rash, and discoloration, Neuro: Negative for headache, weakness, numbness, tingling, and seizure. 11:23 Respiratory: Positive for dyspnea on exertion, shortness of breath. Exam: 11:23 Constitutional: This is a well developed, well nourished patient who is awake, alert, kb and in no acute distress. Head/Face: Normocephalic, atraumatic. Cardiovascular: Regular rate and rhythm with a normal S1 and S2. No gallops, murmurs, or rubs. No pulse deficits. Skin: Warm, dry with normal turgor. Normal color. MS/ Extremity: Pulses equal, no cyanosis. Neurovascular intact. Full, normal range of motion. Neuro: Awake and alert, GCS 15, oriented to person, place, time, and situation. Moves all extremities. Normal gait. 11:23 Respiratory: moderate respiratory distress is noted, Respirations: labored breathing, that is moderate, Breath sounds: wheezing: inspiratory expiratory that is moderate, is heard diffusely. Vital Signs: 09:55 BP 121 / 73; Pulse 89; Resp 30; Temp 98.1; Pulse Ox 91% on R/A; Weight 57.61 kg; Height hb 6 ft. 0 in. (182.88 cm); 11:37 BP 139 / 67; Pulse 68; Resp 22; Pulse Ox 100% on 2.5 lpm NC; ll1 12:58 BP 134 / 63; Pulse 74; Resp 20; Pulse Ox 96% on 3 lpm NC; vg1 09:55 Body Mass Index 17.22 (57.61 kg, 182.88 cm) hb 09:55 Pt placed on O2 \T\ 2L per NC. hb MDM: 09:54 Patient medically screened. kb 11:23 Data reviewed: vital signs, nurses notes. Data interpreted: Pulse oximetry: on room air kb is 91 %. Interpretation: borderline. 13:34 Counseling: I had a detailed discussion with the patient and/or guardian regarding: the kb historical points, exam findings, and any diagnostic results supporting the discharge/admit diagnosis, lab results, radiology results, the need for outpatient follow up, a log hooker, to return to the emergency department if symptoms worsen or persist or if there are any questions or concerns that arise at home. ED course: Discussed admission with pt for COPD exacerbation. Pt does not want to stay in the hospital. Pt states he has neb treatments and oxygen to use at home. Pt recently seen by log hooker and has steroids to take at home. Pt will return for worsening symptoms.. 13:38 Physician consultation: Ester Mendiola MD in the emergency department to see patient kb at 12:45. 06/16 09:56 Order name: Troponin (emerg Dept Use Only); Complete Time: 12:11 kb 06/16 09:56 Order name: Basic Metabolic Panel; Complete Time: 12:11 kb 06/16 09:56 Order name: CBC with Diff; Complete Time: 10:46 kb 06/16 09:56 Order name: Magnesium; Complete Time: 12:11 kb 06/16 09:56 Order name: NT PRO-BNP; Complete Time: 12:11 kb 06/16 09:56 Order name: PT-INR; Complete Time: 10:48 kb 06/16 09:56 Order name: XRAY Chest (1 view); Complete Time: 11:36 kb 06/16 09:56 Order name: EKG; Complete Time: 09:57 kb 06/16 12:09 Order name: SARS-COV-2 RT PCR; Complete Time: 12:09 EDMS 06/16 12:46 Order name: CT Chest For PE Angio; Complete Time: 13:25 kb 06/16 09:56 Order name: Cardiac monitoring; Complete Time: 10:27 kb 06/16 09:56 Order name: EKG - Nurse/Tech; Complete Time: 10:27 kb 06/16 09:56 Order name: IV Saline Lock; Complete Time: 10:15 kb 06/16 09:56 Order name: Labs collected and sent; Complete Time: 10:16 kb 06/16 09:56 Order name: O2 Per Protocol; Complete Time: 10:15 kb 06/16 09:56 Order name: O2 Sat Monitoring; Complete Time: 10:15 kb 06/16 10:44 Order name: Labs - recollect needed: recollect c7; Complete Time: 11:57 bd Administered Medications: 10:45 Drug: SOLU-Medrol 125 mg Route: IVP; Site: left hand; [facility] 13:02 Follow up: Response: No adverse reaction vg1 10:45 Drug: DuoNeb (albuterol 2.5 mg, ipratropium 0.5 mg) (3:1) (2.5 mg - 0.5 mg) 3 ml Route: ll1 Nebulizer; 13:01 Follow up: Response: No adverse reaction vg1 10:59 Drug: Magnesium Sulfate 2 grams Route: IVPB; Infused Over: 1 hrs; Site: left hand; [facility] 13:01 Follow up: IV Status: Completed infusion; IV Intake: 50ml vg1 Disposition: 15:10 Co-signature as Attending Physician, Tahir Stephen MD. rn Disposition: 06/16/20 13:37 Discharged to Home. Impression: Chronic obstructive pulmonary disease with (acute) exacerbation. - Condition is Stable. - Discharge Instructions: Chronic Obstructive Pulmonary Disease Exacerbation. - Prescriptions for Zithromax Z- Osvaldo 250 mg Oral Tablet - take 1 tablet by ORAL route as directed for 5 days Day 1 - take two (2) tablets one time. Day 2, 3, 4 , 5 take one (1) tablet once daily.; 6 tablet. - Medication Reconciliation Form, Thank You Letter, Antibiotic Education, Prescription Opioid Use form. - Follow up: Emergency Department; When: As needed; Reason: Worsening of condition. Follow up: Private Physician; When: 2 - 3 days; Reason: Recheck today's complaints, Continuance of care, Re-evaluation by your physician. Signatures: Dispatcher [employer] EDMT Kimberlyn Schultz, HUMAN SERVICES SUPERVISOR-C HUMAN SERVICES SUPERVISOR-Ckb Day Cole Roman, MD MD rn Baxter, Heather, RN RN hb Garcia, Victoria, RN RN vg1 Berkley Ngo RN RN ll1 Corrections: (The following items were deleted from the chart) 11:17 09:57 CORONAVIRUS+MR.LAB.BRZ ordered. [facility] 14:10 13:37 06/16/2020 13:37 Discharged to Home. Impression: Chronic obstructive pulmonary vg1 disease with (acute) exacerbation. Condition is Stable. Forms are Medication Reconciliation Form, Thank You Letter, Antibiotic Education, Prescription Opioid Use. Follow up: Emergency Department; When: As needed; Reason: Worsening of condition. Follow up: Private Physician; When: 2 - 3 days; Reason: Recheck today's complaints, Continuance of care, Re-evaluation by your physician. kb
--- NOTE | 2020-06-16 13:38 | ER ---
Nurse's Notes [facility] Name: Bossman Gooden Age: 75 yrs Sex: Male : 1945 Arrival Date: 06/16/2020 Time: 09:48 Bed 16 Private MD: Diagnosis: Chronic obstructive pulmonary disease with (acute) exacerbation Presentation: 06/16 09:53 Chief complaint: Patient states: SOB that started yesterday, reports having surgery hb about 10 days ago on his throat and feels like he can't breathe well today. Coronavirus screen: Client denies travel out of the [place] in the last 14 days. Client presents with at least one sign or symptom that may indicate coronavirus-19. Standard/surgical mask placed on the client. Provider contacted for isolation considerations. Risk Assessment: Do you want to hurt yourself or someone else? Patient reports no desire to harm self or others. Onset of symptoms was June 2001. 09:53 Method Of Arrival: Wheelchair hb 09:53 Acuity: GUANACO 2 hb 09:55 Initial Sepsis Screen: Does the patient meet any 2 criteria? RR > 20 per min. No. hb Patient's initial sepsis screen is negative. Does the patient have a suspected source of infection? No. Patient's initial sepsis screen is negative. Historical: - Allergies: 09:55 Keflex; hb 09:55 Sulfa (Sulfonamide Antibiotics); hb - PMHx: 09:55 Pneumonia; Hypertension; Emphysema; COPD; CAD; EDEMA; Asthma; ESSENTIAL TREMORS; High hb Cholesterol; meningitis; - PSHx: 09:55 Tonsillectomy; Stents on Legs; feeding tube; hb Screenin:58 Abuse screen: Denies threats or abuse. Nutritional screening: No deficits noted. vg1 Tuberculosis screening: No symptoms or risk factors identified. Fall Risk No fall in past 12 months (0 pts). No secondary diagnosis (0 pts). IV access (20 points). Ambulatory Aid- Crutches/Cane/Walker (15 pts). Gait- Normal/Bed Rest/Wheelchair (0 pts) Mental Status- Oriented to own ability (0 pts). Total Tello Fall Scale indicates Low Risk Score (25-44 pts). Fall prevention measures have been instituted. Side Rails Up X 2 Placed close to Nursing Station. Assessment: 10:05 General: Appears uncomfortable, ill, Behavior is calm, cooperative, appropriate for ll1 age. Pain: Denies pain. Neuro: No deficits noted. Cardiovascular: No deficits noted. Rhythm is regular. Respiratory: Airway is patent Trachea midline Respiratory effort is even, labored, Respiratory pattern is symmetrical, tachypnea Sputum is thick, the patient has moderate shortness of breath. 11:05 Reassessment: No changes from previously documented assessment. Patient and/or family ll1 updated on plan of care and expected duration. Pain level reassessed. Patient states symptoms have improved. 12:56 General: Appears in no apparent distress. comfortable, Behavior is calm, cooperative. vg1 Pain: Denies pain. Neuro: Level of Consciousness is awake, alert, obeys commands, Oriented to person, place, time, situation. Cardiovascular: Patient's skin is warm and dry. Respiratory: Airway is patent Respiratory effort is even, labored, Respiratory pattern is regular, symmetrical. GI: No signs and/or symptoms were reported involving the gastrointestinal system. : No signs and/or symptoms were reported regarding the genitourinary system. EENT: Reports difficulty swallowing. Derm: Skin is pink, warm \T\ dry. Musculoskeletal: Circulation, motion, and sensation intact. 14:09 Reassessment: Patient appears in no apparent distress at this time. No changes from vg1 previously documented assessment. Patient and/or family updated on plan of care and expected duration. Pain level reassessed. Patient denies pain at this time. Vital Signs: 09:55 BP 121 / 73; Pulse 89; Resp 30; Temp 98.1; Pulse Ox 91% on R/A; Weight 57.61 kg; Height hb 6 ft. 0 in. (182.88 cm); 11:37 BP 139 / 67; Pulse 68; Resp 22; Pulse Ox 100% on 2.5 lpm NC; ll1 12:58 BP 134 / 63; Pulse 74; Resp 20; Pulse Ox 96% on 3 lpm NC; vg1 09:55 Body Mass Index 17.22 (57.61 kg, 182.88 cm) hb 09:55 Pt placed on O2 \T\ 2L per NC. hb ED Course: 09:48 Patient arrived in ED. ds1 09:54 Kimberlyn Schultz FNP-C [facility]. kb 09:54 Tahir Stephen MD is Attending Physician. kb 09:54 Triage completed. hb 09:57 Berkley Ngo, RN is Primary Nurse. ll1 09:58 Arm band placed on Patient placed in an exam room, on a stretcher. ll1 10:05 Missed attempt(s): 22 gauge in left forearm. Bleeding controlled, band aid applied, ll1 catheter tip intact. 10:15 Inserted saline lock: 22 gauge in left hand, using aseptic technique. Blood collected. ll1 11:10 XRAY Chest (1 view) In Process Unspecified. EDMS 12:01 Primary Nurse role handed off by Berkley Ngo, RN vg1 12:01 Rita Doe, RN is Primary Nurse. vg1 12:[address] via stretcher. vg1 12:58 Patient has correct armband on for positive identification. Bed in low position. Call vg1 light in reach. Side rails up X2. 13:10 CT Chest For PE Angio In Process Unspecified. EDMS 14:09 No provider procedures requiring assistance completed. IV discontinued, intact, vg1 bleeding controlled, No redness/swelling at site. Pressure dressing applied. Administered Medications: 10:45 Drug: SOLU-Medrol 125 mg Route: IVP; Site: left hand; ll1 13:02 Follow up: Response: No adverse reaction vg1 10:45 Drug: DuoNeb (albuterol 2.5 mg, ipratropium 0.5 mg) (3:1) (2.5 mg - 0.5 mg) 3 ml Route: ll1 Nebulizer; 13:01 Follow up: Response: No adverse reaction vg1 10:59 Drug: Magnesium Sulfate 2 grams Route: IVPB; Infused Over: 1 hrs; Site: left hand; ll1 13:01 Follow up: IV Status: Completed infusion; IV Intake: 50ml vg1 Intake: 13:01 IV: 50ml; Total: 50ml. vg1 Outcome: 13:37 Discharge ordered by . kb 14:09 Discharged to home via wheelchair. vg1 14:09 Condition: stable 14:09 Discharge instructions given to patient, Instructed on discharge instructions, follow up and referral plans. medication usage, Demonstrated understanding of instructions, follow-up care, medications, Prescriptions given X 1. 14:10 Patient left the ED. vg1 Signatures: Dispatcher [employer] EDMS Kimberlyn Schultz, AIRCRAFT MAGNETO MECHANIC-C AIRCRAFT MAGNETO MECHANIC-CkVida Santacruz ds1 Shirin Hsu, RN RN hb Rita Doe, RN RN vg1 Berkley Ngo, RN RN ll1
--- NOTE | 2020-06-17 12:50 | EKG ---
Test Date: 2020-06-16 Test Time: 10:23:21 Track Dresser: ANDREA MEASUREMENT RESULTS: Intervals: Rate: 80 CA: 144 QRSD: 76 QT: 402 QTc: 463 [place]: P: 79 CA: 144 QRS: 78 T: 83 INTERPRETIVE STATEMENTS: Normal sinus rhythm Normal ECG Compared to ECG 04/02/2020 19:50:45 No significant changes Electronically Signed On 06-17-20 12:45:51 CDT by Flaco Guallpa
== END 2020-06-16 14:10 | disposition home or self-care (01) ==
LOC: ER 09:47
DX: J44.1 Chronic obstructive pulmonary disease with (acute) exacerbation (principal); I10 Essential (primary) hypertension; Z20.822 Contact with and (suspected) exposure to COVID-19; Z88.1 Allergy status to other antibiotic agents; Z88.2 Allergy status to sulfonamides
CPT/HCPCS: 85025; 80048; 36415; 83735; 85610; 84484; 83880; 71275; 71045; U0003; Q9967; J3475; J2930; 93005; 96365; 96366; 96375; 99285

== ENCOUNTER 2020-06-25 10:26 | Observation (INO) | payer OTHER ==
--- OUTSIDE RECORDS SUMMARY | 2020-06-25 10:29 | XMS REPORT | Continuity of Care Document ---
:1945 Author Organization [facility] t Address [address] [place] [address] Care Team Providers Name Role Phone Mj Wyatt Attending Clinician Best Prince Attending Clinician Josy Attending Clinician Holley Calzada Attending Clinician Jefe Payan Attending Clinician Kannan Attending Clinician Mu Villasenor Attending Clinician Lele Attending Clinician Ishkevenq Admitting Clinician Holley Calzada Admitting Clinician Jefe Payan Admitting Clinician Kannan Admitting Clinician Payers Payer Name Policy Type Policy Number Effective Date Expiration Date S ource Problems This patient has no known problems. Allergies, Adverse Reactions, Alerts Allergy Allergy Status Severity Reaction(s) Onset Inactive Treating Comm ents Source Name Type Date Date Clinician cephalex DA Active U 2019-03 FORMERLY [facility] in 00:00: [address] Medications This patient has no known medications. Procedures This patient has no known procedures. Encounters Start End Encounter Admission Attending Care Care Encounter Source Date/Time Date/Time Type Type Clinicians Facility Department ID 2017-11-29 2017-11-29 Outpatient Wyatt, MHMISCHER MHMISCHER [id number] 13:30:00 13:30:[address] [facility] 2017-06-05 2017-06-05 Outpatient Wyatt, MHMISCHER MHMISCHER [id number] 13:15:00 23:59:[address] [facility] 2017-04-24 2017-04-24 Outpatient Wyatt, MHMISCHER MHMISCHER [id number] 14:15:00 23:59:[address] [facility] 2017-04-24 2017-04-24 Outpatient Wyatt, MHMISCHER MHMISCHER [id number] 14:15:00 23:59:[address] [facility] 2017-04-12 2017-04-13 Outpatient MHMISCHER MHMISCHER [id number] 11:38:00 23:59:59 2016-05-30 2016-06-28 Outpatient Tsinopoulos 2.16.840. 2.16.840. 1. [id number] 09:00:00 23:59:00 , Ebba [id number]. [id number] 00 Ning 3.615.15 5.15 [facility] 2016-06-21 2016-06-28 Outpatient Ishfaq, MH9 MH9 [id number] 13:24:00 19:30:00 Kohler 2016-05-31 2016-05-31 Outpatient Sahil Judd [id number] eClinic 14:30:00 14:30:00 Binta nur 2016-05-17 2016-05-18 Outpatient Crow Calzada MH9 MH9 [id number] 11:39:00 18:19:00 Ali 2015-07-15 2015-07-20 Outpatient Payan, MH9 MH9 [id number] 18:00:00 12:31:00 Alicia Jefe 2015-07-13 2015-07-14 Outpatient Payan, MH9 MH9 [id number] 13:41:00 15:50:00 Alicia 04 Jefe 2015-05-06 2015-05-07 Outpatient Pascual Brunner MH9 MH9 [id number] 12:00:00 16:00:00 2014-07-31 2014-07-31 Outpatient DeFriece, [facility] [id number] 13:53:00 23:59:00 Ifeanyi Dobbins 2014-07-28 2014-07-28 Outpatient DeFriece, [facility] [id number] 16:00:00 23:59:00 Ifeanyi Dobbins 2013-11-27 2013-11-27 Outpatient DeFriece, [facility] [id number] 18:11:00 23:59:00 Ifeanyi Dobbins 2013-10-09 2013-10-09 Outpatient Lele, [facility] [id number] 08:55:00 23:59:00 Sriram 00 2013-05-17 2013-05-18 Outpatient Brunner, Pascual [facility] [id number] 11:45:00 12:45:00 65 Results Test Description Test Time Test Comments Results Result Comments Source ACT-ISTAT 2020-04-25 09:23:00 Test Item Value Reference Range Interpretation Comme nts ACT-ISTAT (test code = ACTI) 246 SEC 74-137 H BASIC METABOLIC [id number] 09:14:00 Test Item Value Reference Range Interpretation [...] RECOLLECTION NEEDED ON 04/25/20 AT 0817 BY [email or web address]: POSSIBLE CONTAMINTION.NOTIFIED PATIENT CARE STAFF: BRITNYLIPID PROFILE (CORONARY RISK) 2020-04-25 09:14:00 Test Item [...] RECOLLECTION NEEDED ON 04/25/20 AT 08 BY Z.LAB.DX6IPPOVV: POSSIBLE CONTAMINTION.NOTIFIED PATIENT CARE STAFF: [id number] 09:14:00 Test Item Value Reference Range Interpretation Comments MAGNESIUM (test code = MAG) 2.0 MG/DL 1.6-2.3 N RECOLLECTION NEEDED ON 04/25/20 AT 08 BY Z.LAB.EO1XKSKSP: POSSIBLE CONTAMINTION.NOTIFIED PAT[facility] ST[facility] [id number] 09:02:00 Test Item Value Reference Range Interpretation [...] RECOLLECTION NEEDED ON 04/25/20 AT 0817 BY Z.LAB.TW3TKELMQ: POSSIBLE CONTAMINTION.NOTIFIED PATIENT CARE STAFF: AMYLIPID PROFILE [...] RECOLLECTION NEEDED ON 04/25/20 AT 08 BY Z.LAB.OE4XUAHFG: POSSIBLE CONTAMINTION.NOTIFIED PATIENT CARE STAFF: [id number] 09:02:00 Test Item Value Reference Range Interpretation Comments MAGNESIUM (test code = MAG) MG/DL 1.6-2.3 RECOLLECTION NEEDED ON 04/25/20 AT 08 BY Jose De Jesus.LAB.CZ4URPCKN: POSSIBLE CONTAMINTION.NOTIFIED PATIENT CARE STAFF: AMYBASIC METABOLIC [id number] 08:52:00 Test Item Value Reference Range Interpretation [...] RECOLLECTION NEEDED ON 04/25/20 AT 08 BY Z.LAB.BJ2LLNVKP: POSSIBLE CONTAMINTION.NOTIFIED PATIENT CARE STAFF: AMYLIPID PROFILE [...] RECOLLECTION NEEDED ON 04/25/20 AT 08 BY Z.LAB.US3MOFNFA: POSSIBLE CONTAMINTION.NOTIFIED PATIENT CARE STAFF: [id number] 08:52:00 Test Item Value Reference Range Interpretation Comments MAGNESIUM (test code = MAG) MG/DL 1.6-2.3 RECOLLECTION NEEDED ON 04/25/20 AT 08 BY Z.LAB.QW2QLUBYU: POSSIBLE CONTAMINTION.NOTIFIED PATIENT CARE STAFF: AMYPROTHROMBIN [id number] 06:44:00 Test Item Value Reference Range Interpretation [...] syste manish embolism. 3.0 - 4.5 PTT [id number] 06:44:00 Test Item Value Reference Range Interpretation Comments PTT ACTIVATED (test code = APTT) 23.6 SECONDS 25.1-36.5 L CBC W/AUTO [id number] 06:33:00 Test Item Value Reference Range Interpretation [...] 0.0-0.1 N NRBC#) COVID 19 Asymptomatic IH [id number] 05:24:00 Test Item Value Reference Range Interpretation [...] in the sample." - INS GASTRO TUBE [id number] 15:10:00 [facility] 1945 Sex: M Name: SHIRLENE NICHOLAS : 1945ge/S: 74 / M [address] Unit #: [id number] Loc: [place] [address] Phys: Sapna Roass MD Acct: [id number] Dis Date: [id number] Status: DIS IN PHONE#: [phone] Exam Date: 01/02/2020 1200 FAX #: Reason: THROAT CA EXAMS: CPT: [id number] INS GASTRO TUBE PERC 55341 Fluoro Time:00:24 DAP (Gy m2): 1 Air Kerma (mGy): 0.27 C3 Procedure: Aborted gastrostomy tube Indication: Dysphagia. Head and neck cancer. Date: 01/02/2020 Operators: Jason Rosa M.D. Medications: 1 mg IV glucagon IV Versed, and IV fentanyl Soyw-ry-rgws time: Approximately 30 minutes. Complications: None immediate [...] left. IV glucagon was administered. Through a 5-Turkish Kumpe catheter which was placed in the [...] NICHOLAS : 1945 Age/S: 74 / M [address] Unit #: [id number] Loc: [place] [address] Phys: Sapna Rosas MD Acct: [id number] Dis Date: [id number] Status: DIS IN PHONE #: [phone] Exam Date: 01/02/2020 1200 FAX #: Reason: THROAT CA EXAMS: CPT: [id number] INS GASTRO TUBE PERC 57069 Fluoro Time: 00:24 DAP (Gy m2): 1 Air Kerma (mGy): 0.27 <Continued> at 1510 Reported and signed by: Jason Rosa M.D. CC: Sapna Rosas MD; Morteza Arriaza MD PAGE 2 Signed Report Name: SHIRLENE NICHOLAS [place] : 1945 Age/S: 74 / M [address] [address] Unit #: [id number] Loc: [place] [address] Phys: Sapna Rosas MD Acct: [id number] Dis Date: [id number] Status: DIS IN PHONE #: [phone] Exam Date: 01/02/2020 1200 FAX #: Reason: THROAT CA EXAMS: CPT: [id number] INS GASTRO TUBE PERC 58203 Fluoro Time: 00:24 DAP (Gy m2): 1 Air Kerma (mGy): 0.27 <Continued> Technologist: Kanika Garcia Trnncb Date/Time: 01/23/2020 (151) TessaSI1 Orig Print D/T: S: 01/23/2020 (1513) PAGE 3 Signed ReportGLUCOSE BEDSIDE [id number] 11:44:00 Test Item Value Reference Range Interpretation Comments GLUCOSE BEDSIDE TESTING (test code 131 mg/dL 70-110 H = GLUBED) GLUCOSE BEDSIDE [id number] 07:59:00 Test Item Value Reference Range Interpretation Comments GLUCOSE BEDSIDE TESTING (test code = 79 mg/dL 70-110 N GLUBED) GLUCOSE BEDSIDE [id number] 06:23:00 Test Item Value Reference Range Interpretation Comments GLUCOSE BEDSIDE TESTING (test code = 87 mg/dL 70-110 N GLUBED) GLUCOSE BEDSIDE [id number] 11:37:00 Test Item Value Reference Range Interpretation Comments GLUCOSE BEDSIDE TESTING (test code 101 mg/dL 70-110 N = GLUBED) GLUCOSE BEDSIDE [id number] 08:43:00 Test Item Value Reference Range Interpretation Comments GLUCOSE BEDSIDE TESTING (test code 114 mg/dL 70-110 H = GLUBED) GLUCOSE BEDSIDE [id number] 20:55:00 Test Item Value Reference Range Interpretation Comments GLUCOSE BEDSIDE TESTING (test code = 86 mg/dL 70-110 N GLUBED) - XR SWLW FUNC W/C [id number] 12:12:00 [facility] 1945 Sex: M Name: SHIRLENE NICHOLAS [facility] : 1945ge/S: 74 / M [address] [address] Unit #: [id number] Loc: [place] [address] Phys: Sapna Rosas MD Acct: [id number] Dis Date: Status: ADM IN PHONE#: [phone] Exam Date: 01/06/2020 1000 FAX #: Reason: MBS EXAMS: CPT: [id number] XR SWLW FUNC W/C V 53648 Fluoro Time:132 DAP (Gy m2): Air Kerma [...] PAGE 1 Signed Report Name: SHIRLENE NICHOLAS [place] : 1945 Age/S: 74 / M [address] [address] Unit #: [id number] Loc: [place] [address] Phys: Sapna Rosas MD Acct: [id number] Dis Date: Status: ADMIN PHONE #: [phone] Exam Date: 01/06/2020 1000 FAX #: Reason: MBS EXAMS: CPT: [id number] XR SWLW FUNC W/C V 46594 Fluoro Time: 132 DAP (Gy m2): Air Kerma (mGy): 8.79 <Continued> Technologist: Wayne Cleary, RT(R)(CT) Trnscb Date/Time: 01/06/2020 (1212) t.ISISR.ANS4 Orig Print D/T: S: 01/06/2020 (1215) PAGE 2 Signed ReportGLUCOSE BEDSIDE [id number] 11:57:00 Test Item Value Reference Range Interpretation Comments GLUCOSE BEDSIDE TESTING (test code 136 mg/dL 70-110 H = GLUBED) GLUCOSE BEDSIDE [id number] 10:25:00 Test Item Value Reference Range Interpretation Comments GLUCOSE BEDSIDE TESTING (test code 105 mg/dL 70-110 N = GLUBED) - XR CHEST 1 [id number] 07:39:00 [facility] : 1945 Sex: M Name: SHIRLENE NICHOLAS [place] : 1945ge/S: 74 / M [address] [address] Unit #: [id number] Loc: [place] [address] Phys: Magen Hammond MD Acct: [id number] Dis Date: Status: ADM IN PHONE#: [phone] Exam Date: 01/06/2020604 FAX #: Reason: pneumnonia EXAMS: CPT: [id number] XR CHEST 1 V 19551 Fluoro Time: DAP (Gy m2): Air Kerma [...] STANTON M.D. CC: Sapna Rosas MD; Magen ball MD; Morteza Arriaza MD PAGE 1 Signed Report Name: SHIRLENE NICHOLAS [place] : 1945 Age/S: 74 / M [address] [place] [address] Unit #: [id number] Loc: [place] [address] Phys: Magen Hammond MD Acct: [id number] Dis Date: Status: ADM IN PHONE #: [phone] ExamDate: 01/06/2020 06 FAX #: Reason: pneumnonia EXAMS: CPT: [id number] XR CHEST 1 V 68003 Fluoro Time: DAP (Gy m2): Air Kerma (mGy): <Continued> Technologist: Tati Buchanan, RT(R)(CT) Trnscb Date/Time: 01/06/2020 (0739) TessaHV2 Orig Print D/T: S: 01/06/2020 (0742) PAGE 2 Signed Report GLUCOSE BEDSIDE [id number] 04:31:00 Test Item Value Reference Range Interpretation Comments GLUCOSE BEDSIDE TESTING (test code = 89 mg/dL 70-110 N GLUBED) GLUCOSE BEDSIDE [id number] 20:49:00 Test Item Value Reference Range Interpretation Comments GLUCOSE BEDSIDE TESTING (test code 109 mg/dL 70-110 N = GLUBED) GLUCOSE BEDSIDE [id number] 12:37:00 Test Item Value Reference Range Interpretation Comments GLUCOSE BEDSIDE TESTING (test code 160 mg/dL 70-110 H = GLUBED) - CT CHEST W/O [id number] 10:09:00 [facility] : 1945 Sex: M Name: SHIRLENE NICHOLAS [facility] : 1945ge/S: 74 / M [address] [address] Unit #: [id number] Loc: [place] [address] Phys: Sapna Rosas MD Acct: [id number] Dis Date: Status: ADM IN PHONE#: [phone] Exam Date: 01/05/2020 0958 FAX #: Reason:TANIKA CONGESTION EXAMS: CPT: [id number] CT CHEST W/O CONTRAST 21217 EXAM: - CT CHEST W/O CONTRAST INDICATION: [...] 1 Signed Report (CONTINUED) Name: SHIRLENE NICHOLAS [place] : 1945 Age/S: 74 / M [address] [address] Unit #: [id number] Loc: [place] [address] Phys: Sapna Rosas MD Acct: [id number] Dis Date: Status: ADM IN PHONE #: [phone] ExamDate: 01/05/2020 0900 FAX #: Reason: TANIKA CONGESTION EXAMS: CPT: [id number] CT CHEST W/O CONTRAST 89876 <Continued> at 1009 Reported and signed by: Lalo Lao M.D. CC: Sapna Rosas MD; Morteza Arriaza MD Technologist:Anne-Marie Cuevas RT(R)(CT) CTDI: DLP: Trnscb Date/Time: 01/05/2020 (1009) t.ISISR.AH26 Orig Print D/T: S: 01/05/2020 (1012) PAGE 2 Signed ReportGLUCOSE BEDSIDE [id number] 07:56:00 Test Item Value Reference Range Interpretation Comments GLUCOSE BEDSIDE TESTING (test code 137 mg/dL 70-110 H = GLUBED) GLUCOSE BEDSIDE [id number] 00:33:00 Test Item Value Reference Range Interpretation Comments GLUCOSE BEDSIDE TESTING (test code 162 mg/dL 70-110 H = GLUBED) - CT ABD PELVIS [id number] 13:06:00 [facility] : 1945 Sex: M Name: SHIRLENE NICHOLAS [facility] : 1945ge/S: 74 / M [address] [address] Unit #: [id number] Loc: [place] [address] Phys: Sapna Rosas MD Acct: [id number] Dis Date: Status: ADM IN PHONE#: [phone] Exam Date: 01/04/2020 1230 FAX #: Reason:abd pain EXAMS: CPT: [id number] CT ABD PELVIS W/CONT 52694 CT abdomen and pelvis with IV contrast. Indication: Abdominal pain Location:R16 Comparison: 01/02/2020 Technique: CT images of the [...] 1 Signed Report (CONTINUED) Name: SHIRLENE NICHOLAS [facility] : 1945 Age/S: 74 / [id number] Unit #: [id number] Loc: [place] [address] Phys: Sapna Rosas MD Acct: [id number] Date: Status: ADM IN PHONE #: [phone] Exam Date: 01/04/2020 1230 FAX #: Reason: abd pain EXAMS: CPT: [id number] CT ABD PELVIS W/CONT 25866 <Continued> Interval development of upper abdominal foci [...] above. at 1306 Reported and signed by: eKvon Angela M.D. CC: Sapna Rosas MD; Morteza Arriaza MD Technologist:RT Linda(R) CTDI: DLP: Trnscb Date/Time: 01/04/2020 (1306) t.ISISR.RH16 Orig Print D/T: S: 01/04/2020 (5159) PAGE 2 Signed Report- XR ABDOMEN 1 [id number] 08:50:00 [facility] : 1945 Sex: M Name: SHIRLENE NICHOLAS [facility] : 1945ge/S: 74 / M [address] [address] Unit #: [id number] Loc: [place] [address] Phys: Sapna Rosas MD Acct: [id number] Dis Date: Status: ADM IN PHONE#: [phone] Exam Date: 01/04/2020 08 FAX #: Reason: abd pain EXAMS: CPT: [id number] XR ABDOMEN 1 V 89355 Fluoro Time: DAP (Gy m2): Air Kerma [...] this may be related to the patient's gas trostomy tube placement, correlate clinically. No air-filled dilated bowel loops to suggestbowel obstruction. at 0850 Reported and signed by: Kevon Angela M.D. CC: Sapna Rosas MD; Morteza Arriaza MD PAGE 1 Signed Report Name:SHIRLENE NICHOLAS [facility] : 1945 Age/S: 74 / M [address] [address] Unit #: [id number] Loc: [place] [address] Phys: Sapna Rosas MD Acct: [id number] Dis Date: Status: ADM IN PHONE #: [phone] Exam Date: 01/04/2020 0837 FAX #: Reason: abd pain EXAMS: CPT: [id number] XR ABDOMEN 1 V 10508 Fluoro Time: DAP(Gy m2): Air Kerma (mGy): <Continued> Technologist: Anne-Marie Cuevas RT(R)(CT) Trnscb Date/Time: 01/04/2020 (0850) t.ISISR.RH16 Orig Print D/T: S: 01/04/2020 (0853) PAGE 2 Signed Report- XR CHEST 1 [id number] 08:50:00 [facility] : 1945 Sex: M Name: SHIRLENE NICHOLAS [facility] : 1945ge/S: 74 / M [address] [facility] Unit #: [id number] Loc: [place] [address] Phys: Sapna Rosas MD Acct: [id number] Dis Date: Status: ADM IN PHONE#: [phone] Exam Date: 01/04/2020 0837 FAX #: Reason: cough EXAMS: CPT: [id number] XR CHEST 1 V 08378 Fluoro Time: DAP (Gy m2): Air Kerma [...] this may be related to the patient's gas trostomy tube placement, correlate clinically. No air-filled dilated bowel loops to suggestbowel obstruction. at 0850 Reported and signed by: Kevon Angela M.D. CC: Sapna Rosas MD; Morteza Arriaza MD PAGE 1 Signed Report Name:SHIRLENE NICHOLAS [facility] : 1945 Age/S: 74 / M [address] [address] Unit #: [id number] Loc: [place] [address] Phys: Sapna Rosas MD Acct: [id number] Dis Date: Status: ADM IN PHONE #: [phone] Exam Date: 01/04/2020 0837 FAX #: Reason: cough EXAMS: CPT: [id number] XR CHEST 1 V 23065 Fluoro Time: DAP(Gy m2): Air Kerma (mGy): <Continued> Technologist: Anne-Marie Cuevas RT(R)(CT) Trnscb Date/Time: 01/04/2020 (0850) tVERENAR.RH16 Orig Print D/T: S: 01/04/2020 (6776) PAGE 2 Signed ReportBASIC METABOLIC [id number] 10:05:00 Test Item Value Reference Range Interpretation [...] code = CA) 7.4 MG/DL 8.5-10.1 L [id number] 10:05:00 Test Item Value Reference Range Interpretation Comments MAGNESIUM (test code = MAG) 1.7 MG/DL 1.8-2.4 L PROTHROMBIN [id number] 09:57:00 Test Item Value Reference Range Interpretation Comments PT PATIENT (test code = PTP) 11.5 SECONDS 9.3-12.9 N INTERNATIONAL NORMAL RATIO 1.02 INR Unit 0.8-1.2 N (test code = INR) CBC W/AUTO [id number] 09:50:00 Test Item Value Reference Range Interpretation [...] = MDIFF) - CT ABD PELVIS W/O [id number] 10:46:00 [facility] : 1945 Sex: M Name: SHIRLENE NICHOLAS [facility] : 1945Age/S: 74 / M [address] [address] Unit #: [id number] Loc: [place] [address] Phys: Jason Rosa MD Acct: [id number] Dis Date: Status: ADM IN PHONE#: [phone] Exam Date: 01/02/2020 1002 FAX #: Reason:PEG placement planning EXAMS: CPT: [id number] CT ABD PELVIS W/O CONT 06605 EXAM: CT pelvis abdomen and without contrast [...] NICHOLAS : 1945 Age/S: 74 / M [address] [facility] Unit #: [id number] Loc: [place] [address] Phys: Jason Rosa MD Acct: [id number] Dis Date: Status: ADM IN PHONE #: [phone] Exam Date: 01/02/2020 1005 FAX #: Reason: PEG placement planning EXAMS: CPT: [id number] CT ABD PELVIS W/O CONT 35433 <Continued> Evaluation of the bladder is limited, [...] size, and/or utilization of iterative reconstruction technique. PAGE 2 Signed Report (CONTINUED) Name: SHIRLENE NICHOLAS [facility] : 1945 Age/S: 74 / M [address] [address] Unit #: [id number] Loc: [place] [address] Phys: Jason Rosa MD Acct: [id number] Dis Date: Status: ADM IN PHONE #: [phone] Exam Date: 01/02/2020 100 FAX #:Reason: PEG placement planning EXAMS: CPT: [id number] CT ABD PELVIS W/O CONT 06159 <Continued> at 1046 Reported and signed by: French Vazquez M.D. CC: Sapna Rosas MD; Jason Rosa MD; Morteza Arriaza MD Technologist:Viola Leger, RT(R) CTDI: DLP: Trnscb Date/Time: 01/02/2020 (1046) t.SDR.HPD Orig Print D/T: S: 01/02/2020 (9372) PAGE 3 Signed ReportCOVID 19 INHOUSE [id number] 13:50:00 Test Item Value Reference Range Interpretation Comments COVID 19 INHOUSE AG NEGATIVE Negative Per manu facturer, (test code = negative result s should [id number]) be treated aspr esumptive and, if inconsi [...] symptoms co nsistent with COVID-19. CBC W/AUTO [id number] 12:12:00 Test Item Value Reference Range Interpretation [...] NO DIFF/SCN CRITERIA = MDIFF) BASIC METABOLIC [id number] 12:12:00 Test Item Value Reference Range Interpretation [...]
[2020-06-25 12:12] LABS: Absolute Lymphocytes (CBC) 0.3 K/uL (0.7-4.9); Basophils % 0.3 % (0-1.3); Hematocrit 37.6 % (39.6-49.0); Lymphocytes % 2.9 % (15.3-44.8); MPV 9.6 fL (7.6-11.3); RBC Red Blood Cell Count 3.76 M/uL (4.33-5.43)
--- NOTE | 2020-06-25 12:15 | RAD REPORT ---
EXAM DESCRIPTION: RAD - Chest Single View - 06/25/2020 12:09 pm CLINICAL HISTORY: SOB Chest pain. COMPARISON: Chest Single View dated 06/16/2020; Chest Pa And Lat (2 Views) dated 05/07/2020; Chest Sing le View dated 04/02/2020; Chest Single View dated 11/08/2019 FINDINGS: Portable technique limits examination quality. The lungs are mildly emphysematous but grossly clear. The heart is normal in size. Mild S-shaped thor acic scoliosis. IMPRESSION: Mild COPD.
[2020-06-25] MEDS ORDERED: predniSONE 20 MG TAB ONE (12:21)
[2020-06-25 12:22] LABS: Protime INR 0.99
[2020-06-25] MEDS ORDERED: LEVALBUTEROL 1.25 MG/3 ML NEB ONE (12:22)
[2020-06-25] MEDS ORDERED: METHYLPREDNISOLONE 125 MG INJ ONE (12:29)
[2020-06-25 12:36] LABS: ALT/SGPT 22 U/L (12-78); AST/SGOT 15 U/L (15-37); Albumin 3.1 g/dL (3.4-5.0); Alkaline Phosphatase 58 U/L (45-117); BUN Blood Urea Nitrogen 19 mg/dL (7-18); Bicarbonate 31 mmol/L (21-32); Bilirubin Direct < 0.1 mg/dL (0-0.2); Bilirubin Total 0.2 mg/dL (0.2-1.0); Glucose Level 101 mg/dL (74-106); Magnesium 2.2 mg/dL (1.8-2.4); NT PRO-BNP 150 pg/mL (<125); Potassium 3.9 mmol/L (3.5-5.1); Protein, Total 6.4 g/dL (6.4-8.2); Sodium Level 141 mmol/L (136-145); Troponin (Emerg Dept Use Only) < 0.02 ng/mL (0.0-0.045)
[2020-06-25 13:22] LABS: Blood Morphology Comment NOT SEEN (NOT SEEN); Platelet Estimate ADEQ; White Blood Cell Scan OK (OK)
--- NOTE | 2020-06-25 15:49 | P.HP ---
Certification for Inpatient Patient admitted to: Observation With expected LOS: <2 Midnights Patient will require the following post-hospital care: None Practitioner: I am a practitioner with admitting privileges, knowledge of patient current condition, hospital course, and medical plan of care. Services: Services provided to patient in accordance with Admission requirements found in Title 42 Section 412.3 of the Code of Federal Regulations Patient History Date of Service: 06/25/20 Primary Care Provider: ENT: Dr. Mendiola, Pulmonary-Dr. Ventura Reason for admission: Shortness of breath History of Present Illness: 75-year-old male with history of laryngeal cancer and COPD. Patient came to the ER with increasing shortness of breath. He reports mild cough, congestion. Patient uses oxygen from time to time at home but his room air saturations he reports are normal. Patient takes an inhaler and prednisone. Patient recently treated for throat cancer with Botox. Patient sees pulmonology. Pulmonology recently gave him antibiotics for Pseudomonas in the sputum. He denies any nausea, vomiting. Denies any significant chest pain. In the ER patient was evaluated. Chest x-ray shows mild COPD. CBC unremarkable. BMP unremarkable. Troponin unremarkable. Patient stable at this time. Patient admitted for observation Patient has PEG tube for nutritional purposes. Patient able to take clear liquids. Patient still smokes. Allergies cephalexin [From Keflex] Allergy (Intermediate, Verified 06/03/20 11:58) Unknown Sulfa (Sulfonamide Antibiotics) Allergy (Verified 06/03/20 11:58) unknown Home medications list reviewed: Yes Home Medications: Albuterol Inhaler [Ventolin Inhaler] 2 puff IH PRN PRN 04/20/20 Aspirin 81 mg PO DAILY 04/20/20 Clopidogrel Bisulfate [Plavix] 75 mg PO DAILY 04/20/20 Tamsulosin [Flomax] 0.4 mg PO BEDTIME 06/03/20 predniSONE [Deltasone] 10 mg PO DAILY 06/03/20 - Past Medical/Surgical History Diabetic: No -: COPD -: Laryngeal cancer -: Essential tremor -: Peripheral arterial disease -: Chronic Diarrhea -: Tobacco abuse -: History of meningitis, June 2016 -: Appendectomy -: Right leg surgery -: Peripheral arterial disease with stent -: Eye surgery cataract sx on both eyes Psychosocial/ Personal History: The patient is . He has 1 child. 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 - Family History Father -: Lung disease Notes: COPD Mother -: Heart disease - Social History Smoking Status: Heavy Tobacco smoker (>10 cigarettes/day) Counseled patient to stop smoking for: less than 10 minutes Smoking therapy provided: Yes Patient receptive to therapy: No Alcohol use: Yes CD- Drugs: No Caffeine use: Yes Place of Residence: Home Review of Systems General: As per HPI Eyes: As per HPI ENT: Nose Congestion, As per HPI Respiratory: Cough, Shortness of Breath, SOB with Excertion, Wheezing, As per HPI Cardiovascular: Unremarkable Gastrointestinal: Unremarkable Genitourinary: Unremarkable Musculoskeletal: Unremarkable Integumentary: Unremarkable Neurological: Unremarkable Lymphatics: As per HPI Physical Examination - Physical Exam General: Alert, In no apparent distress, Oriented x3, Cooperative HEENT: Atraumatic, Normocephalic, PERRLA, Mucous membr. moist/pink Neck: Other (Left submandibular nodule) Respiratory: Expiratory wheezes, Inspiratory wheezes Cardiovascular: Normal pulses, Regular rate/rhythm Gastrointestinal: Normal bowel sounds, Soft and benign, Non-distended, No tenderness, No masses, No rebound, No guarding Musculoskeletal: No erythema, No tenderness, No warmth Integumentary: No tenderness/swelling Neurological: Normal speech, Normal strength at 5/5 x4 extr, Normal tone, Normal affect - Studies Laboratory Data (last 24 hrs) 06/25/20 12:00: PT 11.4, INR 0.99 06/25/20 12:00: WBC 9.70 D, Hgb 12.6 L, Hct 37.6 L, Plt Count 156 06/25/20 12:00: Sodium 141, Potassium 3.9, BUN 19 H, Creatinine 0.48 L, Glucose 101, Magnesium 2.2, Total Bilirubin 0.2, AST 15, ALT 22, Alkaline Phosphatase 58 Assessment and Plan - Plan Impression: Dyspnea secondary to COPD exacerbation Laryngeal cancer Tobacco abuse Left submandibular nodule Seasonal chronic allergies Plan: Patient will be admitted for further evaluation and treatment. We will start IV Solu-Medrol. Continue with COPD medication including Brovana. Continue with home medication. Will provide medication for seasonal allergiesSingulair. Will maintain oxygen above 93%. Patient uses oxygen from time to time. Case discussed with his manager drug safety. Will check sputum culture as the patient was recently treated with Levaquin for Pseudomonas. We will monitor the patient closely. Patient has a nodule to the left submandibular region. He reports this is to be further evaluated by ENT. Patient still smokes. Tobacco cessation addressed in detail. Anticipate improvement over the next 24 hours. Likely discharge tomorrow. Discharge Plan: Home Plan to discharge in: 24 Hours - Advance Directives Does patient have a Living Will: Yes Does patient have a Durable POA for Healthcare: Yes - Code Status/Comfort Care Code Status Assessed: Yes (Patient is full code) Time Spent Managing Pts Care (In Minutes): 55
--- NOTE | 2020-06-25 17:48 | ER ---
Nurse's Notes [facility] Name: Bossman Gooden Age: 75 yrs Sex: Male : 1945 Arrival Date: 06/25/2020 Time: 10:30 Bed 13 Private MD: Diagnosis: COPD Exacerbation;Shortness of breath Presentation: 06/25 11:02 Chief complaint: Patient states: Shortness of breath on exertion x months. Pt reports ss that he was in the ER just over a week ago and was told that he should stay in the hospital, but left anyway. Also reports sinus congestion/ pain. HX of COPD and throat CA. Coronavirus screen: Client denies travel out of the [place] in the last 14 days. Client presents with at least one sign or symptom that may indicate coronavirus-19. Standard/surgical mask placed on the client. Ebola Screen: Patient denies exposure to infectious person. Patient denies travel to an Ebola-affected area in the 21 days before illness onset. Initial Sepsis Screen: Does the patient meet any 2 criteria? No. Patient's initial sepsis screen is negative. Does the patient have a suspected source of infection? No. Patient's initial sepsis screen is negative. Risk Assessment: Do you want to hurt yourself or someone else? Patient reports no desire to harm self or others. Onset of symptoms is unknown. 11:02 Method Of Arrival: Wheelchair 11:02 Acuity: GUANACO 3 ss Triage Assessment: 12:28 General: . Respiratory: Onset: The symptoms/episode began/occurred ca1 Historical: - Allergies: 11:05 Keflex; ss 11:05 Sulfa (Sulfonamide Antibiotics); ss - Home Meds: 21:56 Ventolin HFA inhalation Nebulizer [Active]; sertraline Oral [Active]; trelegy [Active]; sf Ventolin Nebulizer PRN [Active]; primidone 50 mg Oral tab 2 tabs twice a day [Active]; Klor-Con 10 Oral [Active]; Diphenoxylate-Atropine Oral [Active]; Daliresp 500 mcg Oral tab 1 tab once daily [Active]; clopidogrel 75 mg Oral tab 1 tab once daily [Active]; bevespi 2 puffs a day [Active]; Atrovent 0.5mg PRN Inhl [Active]; atorvastatin 10 mg Oral tab 1 tab once daily [Active]; aspirin 81 mg Oral chew 1 tab once daily [Active]; amlodipine 10 mg tab 1 tab once daily [Active]; - PMHx: 11:05 Asthma; CAD; COPD; EDEMA; Emphysema; ESSENTIAL TREMORS; Pneumonia; meningitis; ss Hypertension; High Cholesterol; - PSHx: 11:05 Tonsillectomy; Stents on Legs; feeding tube; ss - Immunization history:: Adult Immunizations up to date. - Social history:: Smoking status: Patient reports the use of cigarette tobacco products, < 1/2 ppd. Screenin:00 Abuse screen: Denies threats or abuse. Denies injuries from another. Nutritional ca1 screening: No deficits noted. Tuberculosis screening: No symptoms or risk factors identified. Fall Risk IV access (20 points). Assessment: 12:00 General: Appears in no apparent distress. comfortable, Behavior is calm, cooperative, ca1 appropriate for age. Pain: Denies pain. Neuro: Level of Consciousness is awake, alert, obeys commands, Oriented to person, place, time, situation. Cardiovascular: Heart tones S1 S2 present Capillary refill < 3 seconds Patient's skin is warm and dry. Rhythm is sinus rhythm. Respiratory: Airway is patent Respiratory effort is even, unlabored, Respiratory pattern is regular, symmetrical, Breath sounds are clear bilaterally. Respiratory: Reports shortness of breath at rest cough that is productive. GI: Abdomen is flat, non-distended, PEG tube in place, clamped. Site clean. Bowel sounds present X 4 quads. Abd is soft and non tender X 4 quads. : No signs and/or symptoms were reported regarding the genitourinary system. EENT: No signs and/or symptoms were reported regarding the EENT system. Derm: Skin is intact, is healthy with good turgor, Skin is pink, warm \T\ dry. Musculoskeletal: Circulation, motion, and sensation intact. Capillary refill < 3 seconds. 13:04 Reassessment: Patient appears in no apparent distress at this time. Patient and/or ca1 family updated on plan of care and expected duration. Pain level reassessed. Patient is alert, oriented x 3, equal unlabored respirations, skin warm/dry/pink. 13:42 Reassessment: Patient appears in no apparent distress at this time. Patient and/or ca1 family updated on plan of care and expected duration. Pain level reassessed. Patient is alert, oriented x 3, equal unlabored respirations, skin warm/dry/pink. 14:01 Reassessment: VO to ambulate pt. Ambulated pt around nurse's station, 20 - 25 steps ca1 after pt got severely SOB, wheeled back to pt's room, O2 sat at 87% RA quickly recovered to 93% in seconds. Put on O2 at 2lpm via NC. Pt did 2 puffs of albuterol inhaler per pt's stock. Condition improved, notified provider. 15:00 Reassessment: Patient appears in no apparent distress at this time. Patient and/or ca1 family updated on plan of care and expected duration. Pain level reassessed. Patient is alert, oriented x 3, equal unlabored respirations, skin warm/dry/pink. 16:00 Reassessment: Patient appears in no apparent distress at this time. Patient and/or ca1 family updated on plan of care and expected duration. Pain level reassessed. Patient is alert, oriented x 3, equal unlabored respirations, skin warm/dry/pink. 16:48 Reassessment: Patient appears in no apparent distress at this time. Patient is alert, ca1 oriented x 3, equal unlabored respirations, skin warm/dry/pink. 17:50 Reassessment: Patient appears in no apparent distress at this time. Patient and/or ca1 family updated on plan of care and expected duration. Pain level reassessed. Patient is alert, oriented x 3, equal unlabored respirations, skin warm/dry/pink. 19:54 Reassessment: Patient appears in no apparent distress at this time. Patient and/or sf family updated on plan of care and expected duration. Pain level reassessed. Patient is alert, oriented x 3, equal unlabored respirations, skin warm/dry/pink. Patient given urinal per request. Patient requesting tube feeding. No orders at this time. Vital Signs: 11:02 BP 138 / 60; Pulse 93; Resp 20; Temp 97.4(TE); Pulse Ox 94% on R/A; Weight 58.79 kg; ss Height 6 ft. 0 in. (182.88 cm); Pain 6/10; 12:00 BP 104 / 54; Pulse 71; Resp 20 S; Pulse Ox 100% on Nebulizer Mask; ca1 13:04 BP 120 / 59; Pulse 74; Resp 17 S; Pulse Ox 98% on R/A; ca1 13:42 BP 120 / 59; Pulse 82; Resp 16 S; Pulse Ox 95% on R/A; ca1 14:36 BP 115 / 75; Pulse 70; Resp 18 S; Pulse Ox 98% on 2 lpm NC; ca1 15:30 BP 114 / 64; Pulse 74; Resp 18 S; Pulse Ox 97% on R/A; ca1 16:22 BP 124 / 63; Pulse 90; Resp 16 S; Pulse Ox 95% on R/A; ca1 17:35 BP 128 / 65; Pulse 73; Resp 18 S; Pulse Ox 98% on R/A; ca1 19:00 BP 117 / 71; Pulse 76; Resp 18; Pulse Ox 98% ; sf 20:00 BP 120 / 70; Pulse 71; Resp 18; Pulse Ox 98% ; sf 21:00 BP 123 / 67; Pulse 78; Resp 18; Pulse Ox 96% ; sf 22:00 BP 122 / 65; Pulse 71; Resp 18; Pulse Ox 96% on 2 lpm NC; sf 11:02 Body Mass Index 17.58 (58.79 kg, 182.88 cm) ED Course: 10:30 Patient arrived in ED. mr 11:04 Triage completed. ss 11:05 Arm band placed on left wrist. ss 11:29 Yoni García MD is Attending Physician. kdr 11:36 Berkley Ngo, RN is Primary Nurse. ll1 12:00 Patient has correct armband on for positive identification. Placed in gown. Bed in low ca1 position. Call light in reach. Side rails up X2. medical billing associate on. Pulse ox on. NIBP on. Warm blanket given. 12:01 Primary Nurse role handed off by Berkley Ngo, YULISA ca1 12:01 Aida Santos, YULISA is Primary Nurse. ca1 12:01 No provider procedures requiring assistance completed. Initial lab(s) drawn, by ky, ca1 sent to lab. Inserted saline lock: 22 gauge in right forearm, using aseptic technique. Blood collected. 12:09 XRAY Chest (1 view) In Process Unspecified. EDMS 17:45 Denilson Stephen MD is Hospitalizing Provider. kdr 17:46 Rudi Hein DO is Hospitalizing Provider. kdr 19:06 Report given to Sha, RN. ca1 19:54 Basic Metabolic Panel Sent. sf 19:54 CBC with Diff Sent. sf 19:54 LFT's Sent. sf 20:42 COVID swab sent to lab. jp3 21:56 Patient admitted, IV remains in place. sf Administered Medications: 12:08 Drug: Xopenex (levalbuterol) (3) 1.25 mg Route: Inhalation; ca1 19:54 Follow up: Response: No adverse reaction sf 12:09 Not Given (Physician Discretion): predniSONE 60 mg PO once ca1 12:14 Drug: SOLU-Medrol (methylPrednisoLONE) 125 mg Route: IVP; Site: right forearm; ca1 13:44 Follow up: Response: No adverse reaction; Marked relief of symptoms ca1 Outcome: 17:47 Decision to Hospitalize by Provider. kdr 21:54 Condition: stable sf 21:54 Instructed on the need for admit. 22:25 Admitted to Tele accompanied by tech, via wheelchair, room 421, with oxygen, Report sf called to YULISA Rod 22:41 Patient left the ED. sf Signatures: Dispatcher [employer] EDMS Yoni García MD MD [facility] Chavira, Marry mr Gris Bowens, YULISA RN ss Noe Cunningham jp3 Aida Santos RN RN ca1 Berkley Ngo RN RN ll1 Sha Ybarra RN RN sf
--- NOTE | 2020-06-25 17:48 | EDPHYS ---
Physician Documentation [facility] Name: Bossman Gooden Age: 75 yrs Sex: Male : 1945 Arrival Date: 06/25/2020 Time: 10:30 Bed 13 Private MD: ED Physician Yoni García HPI: 06/25 13:50 This 75 yrs old Male presents to ER via Wheelchair with complaints of kdr Breathing Difficulty. 13:50 The patient has shortness of breath at rest, with light activity. Onset: The kdr symptoms/episode began/occurred gradually, The patient has a recent history of COPD and neck cancer which has threatened his air way. He is currently very tachypneic and with labored breathing without stridor. Duration: The symptoms are intermittent, with exertion. The patient's shortness of breath is aggravated by exertion, light activity, talking, walking. Associated signs and symptoms: Pertinent positives: productive cough, Pertinent negatives: fever, hemoptysis, loss of consciousness, nausea, numbness in extremities. Severity of symptoms: At their worst the symptoms were severe incapacitating just prior to arrival, in the emergency department the symptoms have improved mildly. The patient has experienced similar episodes in the past, chronically. The patient has been recently seen by a physician: Was here last week for similar problem but opted not to be admitted - regrets not staying at this time. He was seen by Dr. Mendiola prior to d/c. Historical: - Allergies: 11:05 Keflex; ss 11:05 Sulfa (Sulfonamide Antibiotics); ss - Home Meds: 21:56 Ventolin HFA inhalation Nebulizer [Active]; sertraline Oral [Active]; trelegy [Active]; sf Ventolin Nebulizer PRN [Active]; primidone 50 mg Oral tab 2 tabs twice a day [Active]; Klor-Con 10 Oral [Active]; Diphenoxylate-Atropine Oral [Active]; Daliresp 500 mcg Oral tab 1 tab once daily [Active]; clopidogrel 75 mg Oral tab 1 tab once daily [Active]; bevespi 2 puffs a day [Active]; Atrovent 0.5mg PRN Inhl [Active]; atorvastatin 10 mg Oral tab 1 tab once daily [Active]; aspirin 81 mg Oral chew 1 tab once daily [Active]; amlodipine 10 mg tab 1 tab once daily [Active]; - PMHx: 11:05 Asthma; CAD; COPD; EDEMA; Emphysema; ESSENTIAL TREMORS; Pneumonia; meningitis; ss Hypertension; High Cholesterol; - PSHx: 11:05 Tonsillectomy; Stents on Legs; feeding tube; ss - Immunization history:: Adult Immunizations up to date. - Social history:: Smoking status: Patient reports the use of cigarette tobacco products, < 1/2 ppd. ROS: 13:50 Constitutional: Negative for fever, chills, and weight loss, Eyes: Negative for injury, kdr pain, redness, and discharge, ENT: Negative for injury, pain, and discharge, Neck: Negative for injury, pain, and swelling, Cardiovascular: Negative for chest pain, palpitations, and edema, Abdomen/GI: Negative for abdominal pain, nausea, vomiting, diarrhea, and constipation, Back: Negative for injury and pain, : Negative for injury, bleeding, discharge, and swelling, MS/Extremity: Negative for injury and deformity, Skin: Negative for injury, rash, and discoloration. 13:50 Respiratory: Positive for cough, with white sputum, dyspnea on exertion, shortness of breath, wheezing. Exam: 11:45 ECG was reviewed by the Attending Physician. kdr 13:50 Constitutional: This is a well developed, well nourished patient who is awake, alert, kdr and in no acute distress. Head/Face: Normocephalic, atraumatic. Eyes: Pupils equal round and reactive to light, extra-ocular motions intact. Lids and lashes normal. Conjunctiva and sclera are non-icteric and not injected. Cornea within normal limits. Periorbital areas with no swelling, redness, or edema. ENT: Nares patent. No nasal discharge, no septal abnormalities noted. Tympanic membranes are normal and external auditory canals are clear. Oropharynx with no redness, swelling, or masses, exudates, or evidence of obstruction, uvula midline. Mucous membranes moist. Neck: Trachea midline, no thyromegaly or masses palpated, and no cervical lymphadenopathy. Supple, full range of motion without nuchal rigidity, or vertebral point tenderness. No Meningismus. Chest/axilla: Normal chest wall appearance and motion. Nontender with no deformity. No lesions are appreciated. Cardiovascular: Regular rate and rhythm with a normal S1 and S2. No gallops, murmurs, or rubs. Normal PMI, no JVD. No pulse deficits. Abdomen/GI: Soft, non-tender, with normal bowel sounds. No distension or tympany. No guarding or rebound. No evidence of tenderness throughout. Back: No spinal tenderness. No costovertebral tenderness. Full range of motion. Skin: Warm, dry with normal turgor. Normal color with no rashes, no lesions, and no evidence of cellulitis. MS/ Extremity: Pulses equal, no cyanosis. Neurovascular intact. Full, normal range of motion. Neuro: Awake and alert, GCS 15, oriented to person, place, time, and situation. Cranial nerves II-XII grossly intact. Motor strength 5/5 in all extremities. Sensory grossly intact. Cerebellar exam normal. Normal gait. Psych: Awake, alert, with orientation to person, place and time. Behavior, mood, and affect are within normal limits. 13:50 Respiratory: mild respiratory distress is noted, moderate respiratory distress is noted, Respirations: labored breathing, shallow respirations, Breath sounds: decreased breath sounds, that are moderate, are scattered. Vital Signs: 11:02 BP 138 / 60; Pulse 93; Resp 20; Temp 97.4(TE); Pulse Ox 94% on R/A; Weight 58.79 kg; ss Height 6 ft. 0 in. (182.88 cm); Pain 6/10; 12:00 BP 104 / 54; Pulse 71; Resp 20 S; Pulse Ox 100% on Nebulizer Mask; ca1 13:04 BP 120 / 59; Pulse 74; Resp 17 S; Pulse Ox 98% on R/A; ca1 13:42 BP 120 / 59; Pulse 82; Resp 16 S; Pulse Ox 95% on R/A; ca1 14:36 BP 115 / 75; Pulse 70; Resp 18 S; Pulse Ox 98% on 2 lpm NC; ca1 15:30 BP 114 / 64; Pulse 74; Resp 18 S; Pulse Ox 97% on R/A; ca1 16:22 BP 124 / 63; Pulse 90; Resp 16 S; Pulse Ox 95% on R/A; ca1 17:35 BP 128 / 65; Pulse 73; Resp 18 S; Pulse Ox 98% on R/A; ca1 19:00 BP 117 / 71; Pulse 76; Resp 18; Pulse Ox 98% ; sf 20:00 BP 120 / 70; Pulse 71; Resp 18; Pulse Ox 98% ; sf 21:00 BP 123 / 67; Pulse 78; Resp 18; Pulse Ox 96% ; sf 22:00 BP 122 / 65; Pulse 71; Resp 18; Pulse Ox 96% on 2 lpm NC; sf 11:02 Body Mass Index 17.58 (58.79 kg, 182.88 cm) ss MDM: 13:50 Data reviewed: vital signs, nurses notes, lab test result(s), radiologic studies. kdr Counseling: I had a detailed discussion with the patient and/or guardian regarding: the historical points, exam findings, and any diagnostic results supporting the discharge/admit diagnosis, lab results, radiology results. 17:47 Patient medically screened. [facility] 06/25 11:40 Order name: Basic Metabolic Panel [facility] 06/25 11:40 Order name: CBC with Diff [facility] 06/25 11:40 Order name: LFT's [facility] 06/25 11:40 Order name: Magnesium; Complete Time: 13:08 [facility] 06/25 11:40 Order name: NT PRO-BNP; Complete Time: 13:08 [facility] 06/25 11:40 Order name: PT-INR; Complete Time: 13:08 [facility] 06/25 11:40 Order name: Troponin (emerg Dept Use Only); Complete Time: 13:08 [facility] 06/25 11:40 Order name: Basic Metabolic Panel; Complete Time: 13:08 [facility] 06/25 11:40 Order name: CBC with Automated Diff; Complete Time: 13:48 [facility] 06/25 11:40 Order name: Liver (Hepatic) Function; Complete Time: 13:08 [facility] 06/25 13:22 Order name: CBC Smear Scan; Complete Time: 13:48 [facility] 06/25 20:49 Order name: COVID-19 : Document "Date of Symptom Onset" if Symptomatic. [email or web address] 06/25 20:53 Order name: CORONAVIRUS EDHI 06/25 11:40 Order name: XRAY Chest (1 view); Complete Time: 13:08 [facility] 06/25 11:40 Order name: EKG; Complete Time: 11:41 [facility] 06/25 11:40 Order name: Cardiac monitoring; Complete Time: 12:02 [facility] 06/25 11:40 Order name: EKG - Nurse/Tech; Complete Time: 11:45 [facility] 06/25 11:40 Order name: IV Saline Lock; Complete Time: 12:02 kdr 06/25 11:40 Order name: Labs collected and sent; Complete Time: 12:02 kdr 06/25 11:40 Order name: O2 Per Protocol; Complete Time: 11:45 [facility] 06/25 11:40 Order name: O2 Sat Monitoring; Complete Time: 11:46 kdr 06/25 21:35 Order name: SARS-COV-2 RT PCR EDMS EC:45 Rate is 87 beats/min. Rhythm is regular, Normal Sinus Rhythm with No ectopy. QRS Gifford kdr is Normal. WA interval is normal. QRS interval is normal. QT interval is normal. Clinical impression: Normal ECG. Administered Medications: 12:08 Drug: Xopenex (levalbuterol) (3) 1.25 mg Route: Inhalation; ca1 19:54 Follow up: Response: No adverse reaction sf 12:09 Not Given (Physician Discretion): predniSONE 60 mg PO once ca1 12:14 Drug: SOLU-Medrol (methylPrednisoLONE) 125 mg Route: IVP; Site: right forearm; ca1 13:44 Follow up: Response: No adverse reaction; Marked relief of symptoms ca1 Disposition: 06/25/20 17:47 Hospitalization ordered by Rudi Hein for Inpatient Admission. Preliminary diagnosis are COPD Exacerbation, Shortness of breath. - Bed requested for Telemetry/MedSurg (observation). - Status is Inpatient Admission. sf - Condition is Fair. - Problem is new. - Symptoms have improved. Signatures: Dispatcher [employer] EDMS Yoni García MD MD [facility] Gris Bowens RN RN Elisa Doe RN RN Aida Santos RN RN [facility] Sha Ybarra RN RN sf Corrections: (The following items were deleted from the chart) 21:41 17:47 Hospitalization Ordered by Rudi Hein DO for Inpatient Admission. Preliminary cg diagnosis is COPD Exacerbation; Shortness of breath. Bed requested for Telemetry/MedSurg (observation). Status is Inpatient Admission. Condition is Fair. Problem is new. Symptoms have improved. kdr 22:41 21:41 06/25/2020 17:47 Hospitalization Ordered by Rudi Hein DO for Inpatient sf Admission. Preliminary diagnosis is COPD Exacerbation; Shortness of breath. Bed requested for Telemetry/MedSurg (observation). Status is Inpatient Admission. Condition is Fair. Problem is new. Symptoms have improved. cg
[2020-06-25] MEDS ORDERED: MONTELUKAST 10 MG TAB PO SCH (23:38)
[2020-06-25] MEDS ORDERED: ALBUTEROL 2.5 MG/3 ML NEB SOL NEB PRN (23:38)
[2020-06-25] MEDS: FLUTICASONE 50MCG NASAL SPRAY NAS SCH (23:38)
[2020-06-25] MEDS ORDERED: IPRATROPIUM BROM 0.5MG/2.5ML NEB PRN (23:38)
[2020-06-25] MEDS ORDERED: ACETAMINOPHEN 500 MG TAB PO PRN (23:38)
[2020-06-25] MEDS ORDERED: ONDANSETRON 4 MG/2 ML VIAL IV PRN (23:38)
[2020-06-25] MEDS ORDERED: D5 0.45 NS 1,000 ML IV SCH (23:45)
[2020-06-26] MEDS: METHYLPREDNISOLONE 125 MG INJ IV SCH ×2 (00:12→07:35)
[2020-06-26] MEDS: ARFORMOTEROL TARTRATE 15 MCG/2 ML VIAL.NEB NEB SCH ×2 (01:10→08:15)
[2020-06-26 02:20] VITALS: BMI 17.8
[2020-06-26 05:59] LABS: Absolute Lymphocytes (CBC) 0.2 K/uL (0.7-4.9); Hematocrit 37.4 % (39.6-49.0); Lymphocytes % 2.1 % (15.3-44.8); MPV 10.1 fL (7.6-11.3); RBC Red Blood Cell Count 3.72 M/uL (4.33-5.43)
[2020-06-26 06:20] LABS: BUN Blood Urea Nitrogen 19 mg/dL (7-18); Bicarbonate 28 mmol/L (21-32); Glucose Level 147 mg/dL (74-106); Magnesium 2.2 mg/dL (1.8-2.4); Potassium 4.5 mmol/L (3.5-5.1); Sodium Level 141 mmol/L (136-145)
[2020-06-26 07:34] LABS: Urine Appearance CLEAR (Clear); Urine Bilirubin NEGATIVE (Negative); Urine Blood NEGATIVE (Negative); Urine Color YELLOW (Yellow); Urine Glucose TRACE (Negative); Urine Protein NEGATIVE (Negative); Urine Urobilinogen 0.2 mg/dL (0.2-1.0); Urine pH 7.5 (5.0-7.0)
[2020-06-26 07:40] LABS: Urine Microscopic Reflex NO UMIC
[2020-06-26] MEDS: FLUTICASONE 50MCG NASAL SPRAY NAS SCH (08:03)
[2020-06-26 08:16] LABS: Urine Bacteria <20 /HPF (NONE SEEN); Urine RBC NONE SEEN /HPF (NONE SEEN)
[2020-06-26 08:20] VITALS: BP 106/5; TEMP 97.2
--- NOTE | 2020-06-26 08:26 | P.DS ---
Admission Date: 06/25/20 Discharge Date: 06/26/20 Primary Care Provider: ENT: Dr. Mendiola, Pulmonary-Dr. Ventura Disposition: ROUTINE DISCHARGE Discharge Condition: GOOD Reason for Admission: Shortness of breath Consultations: none Procedures: COVID: Negative CXR: FINDINGS: Portable technique limits examination quality. The lungs are mildly emphysematous but grossly clear. The heart is normal in size. Mild S-shaped thoracic scoliosis. IMPRESSION: Mild COPD. Medical problem List: Dyspnea secondary to COPD exacerbation with history of COPD on chronic steroid and home oxygen Laryngeal cancer Tobacco abuse Left submandibular nodule Seasonal chronic allergies Peripheral vascular disease BPH Brief History of Present Illness: 75-year-old male with history of laryngeal cancer and COPD. Patient came to the ER with increasing shortness of breath. He reports mild cough, congestion. Patient uses oxygen from time to time at home but his room air saturations he reports are normal. Patient takes an inhaler and prednisone. Patient recently treated for throat cancer with Botox. Patient sees pulmonology. Pulmonology recently gave him antibiotics for Pseudomonas in the sputum. He denies any nausea, vomiting. Denies any significant chest pain. In the ER patient was evaluated. Chest x-ray shows mild COPD. CBC unremarkable. BMP unremarkable. Troponin unremarkable. Patient stable at this time. Patient admitted for observation Patient has PEG tube for nutritional purposes. Patient able to take clear liquids. Patient still smokes. Hospital Course: Patient presented with shortness of breath. Patient with underlying COPD on chronic oxygen and steroid. Patient presented with dyspnea secondary to COPD exacerbation. Chest x-ray unremarkable. COVID-19 test negative. Patient was given IV steroids with improvement. 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 Patient recently treated with Levaquin. Sputum culture obtained. Patient appears to be at his baseline level. Pulmonology recommends continued COPD treatment. At discharge patient will continue with prednisone 20 mg 1 pill twice daily for 7 days then return back to his baseline of 20 mg daily. Patient will also continue with his other medications Stiolto 2 puffs daily and albuterol 1 unit dose 3 times a day as needed for shortness of breath. Patient will continue with oxygen to maintain sats above 93%. Currently on 2 to 3 L per nasal cannula. Patient may need to use his oxygen more consistently at home. Patient reports using this only as needed. Recommend follow-up with pulmonology within 1 week. Pulmonology will follow up on sputum culture. Education on COPD provided. Patient also with history of laryngeal cancer with prior radiation and Botox. Patient sees ENT. Patient has a left submandibular nodule. Patient is planning to follow-up with ENT to further monitor and address. Patient with seasonal chronic allergies. Patient with mild congestion. At discharge patient will continue with Flonase 1 spray per nostril twice daily and Singulair 10 mg at bedtime. Recommend follow-up with pulmonology and ENT to further monitor and address. Patient with tobacco abuse. Tobacco cessation addressed in detail. Patient would benefit with nicotine patch to help with cessation. This can be further addressed by ENT and pulmonology. Patient with peripheral vascular disease. At discharge he will continue with aspirin 81 mg daily and Plavix 25 mg daily. Patient with BPH. At discharge patient will continue with Flomax 0.4 mg daily. Vital Signs/Physical Exam: Temp Pulse Resp BP Pulse Ox 97.2 F 64 16 106/5 L 95 06/26/20 08:00 06/26/20 08:00 06/26/20 08:00 06/26/20 08:00 06/26/20 08:00 General: Alert, In no apparent distress, Oriented x3, Cooperative HEENT: Atraumatic Neck: Supple Respiratory: Clear to auscultation bilaterally, Normal air movement Cardiovascular: Normal pulses, Regular rate/rhythm Gastrointestinal: Normal bowel sounds, Soft and benign, Non-distended, No tenderness, No masses, No rebound, No guarding Musculoskeletal: No tenderness Integumentary: No tenderness/swelling Neurological: Normal speech, Normal strength at 5/5 x4 extr, Normal tone, Normal affect Laboratory Data at Discharge: WBC 9.20 K/uL (4.3-10.9) 06/26/20 05:15 Hgb 12.4 g/dL (13.6-17.9) L 06/26/20 05:15 Hct 37.4 % (39.6-49.0) L 06/26/20 05:15 Plt Count 163 K/uL (152-406) 06/26/20 05:15 PT 11.4 SECONDS (9.5-12.5) 06/25/20 12:00 INR 0.99 06/25/20 12:00 Sodium 141 mmol/L (136-145) 06/26/20 05:15 Potassium 4.5 mmol/L (3.5-5.1) 06/26/20 05:15 BUN 19 mg/dL (7-18) H 06/26/20 05:15 Creatinine 0.51 mg/dL (0.55-1.3) L 06/26/20 05:15 Glucose 147 mg/dL (74-106) H 06/26/20 05:15 Magnesium 2.2 mg/dL (1.8-2.4) 06/26/20 05:15 Total Bilirubin 0.2 mg/dL (0.2-1.0) 06/25/20 12:00 AST 15 U/L (15-37) 06/25/20 12:00 ALT 22 U/L (12-78) 06/25/20 12:00 Alkaline Phosphatase 58 U/L (45-117) 06/25/20 12:00 Home Medications: Aspirin 81 mg PO DAILY 04/20/20 Clopidogrel Bisulfate [Plavix*] 75 mg PO DAILY 04/20/20 Tamsulosin [Flomax*] 0.4 mg PO BEDTIME 06/03/20 predniSONE [Deltasone*] 20 mg PO DAILY 06/03/20 Albuterol Inhaler [Ventolin Inhaler*] 2 puff IH TID PRN #1 06/26/20 Fluticasone [Flonase 50MCG Nasal Dennis*] 1 sprays ASHLIE BID #1 btl 06/26/20 Montelukast [Singulair*] 10 mg PO BEDTIME #30 tab 06/26/20 Nicotine [Nicoderm] 21 mg TD DAILY #30 patch.td24 06/26/20 Tiotropium Br/Olodaterol HCl [Stiolto Respimat Inhal Dennis] 2 puff IH DAILY #1 mist.inhal 06/26/20 predniSONE [Prednisone*] 20 mg PO SEECOM #21 tab 06/26/20 New Medications: Fluticasone [Flonase 50MCG Nasal Dennis*] 1 sprays ASHLIE BID #1 btl Nicotine [Nicoderm] 21 mg TD DAILY #30 patch.td24 predniSONE [Prednisone*] 20 mg PO SEECOM #21 tab Montelukast [Singulair*] 10 mg PO BEDTIME #30 tab Tiotropium Br/Olodaterol HCl [Stiolto Respimat Inhal Dennis] 2 puff IH DAILY #1 mist.inhal Albuterol Inhaler [Ventolin Inhaler*] 2 puff IH TID PRN #1 PRN Reason: Shortness Of Breath Physician Discharge Instructions: Patient presented with shortness of breath. Patient with underlying COPD on chronic oxygen and steroid. Patient presented with dyspnea secondary to COPD exacerbation. Chest x-ray unremarkable. COVID-19 test negative. Patient was given IV steroids with improvement. 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 Patient recently treated with Levaquin. Sputum culture obtained. Patient appears to be at his baseline level. Pulmonology recommends continued COPD treatment. At discharge patient will continue with prednisone 20 mg 1 pill twice daily for 7 days then return back to his baseline of 20 mg daily. Patient will also continue with his other medications Stiolto 2 puffs daily and alb uterol 1 unit dose 3 times a day as needed for shortness of breath. Patient will continue with oxygen to maintain sats above 93%. Currently on 2 to 3 L per nasal cannula. Patient may need to use his oxygen more consistently at home. Patient reports using this only as needed. Recommend follow-up with pulmonology within 1 week. Pulmonology will follow up on sputum culture. Education on COPD provided. Patient also with history of laryngeal cancer with prior radiation and Botox. Patient sees ENT. Patient has a left submandibular nodule. Patient is planning to follow-up with ENT to further monitor and address. Patient with seasonal chronic allergies. Patient with mild congestion. At discharge patient will continue with Flonase 1 spray per nostril twice daily and Singulair 10 mg at bedtime. Recommend follow-up with pulmonology and ENT to further monitor and address. Patient with tobacco abuse. Tobacco cessation addressed in detail. Patient would benefit with nicotine patch to help with cessation. This can be further addressed by ENT and pulmonology. Patient with peripheral vascular disease. At discharge he will continue with aspirin 81 mg daily and Plavix 25 mg daily. Patient with BPH. At discharge patient will continue with Flomax 0.4 mg daily. Diet: AHA Activity: Ad vania Followup: Noelle Rodríguez FNP [Primary Care Provider] - Time spent managing pt's care (in minutes): 55
[2020-06-26] MEDS ORDERED: ASPIRIN 81 MG CHEWABLE TABLET PO SCH (09:00)
[2020-06-26] MEDS ORDERED: TIOTROPIUM 5 SPRAYS/INHALER IH SCH (09:00)
[2020-06-26] MEDS ORDERED: ENOXAPARIN 40 MG/0.4 ML SQ SCH (09:00)
[2020-06-26] MEDS ORDERED: CLOPIDOGREL 75 MG TABLET PO SCH (09:00)
[2020-06-26 10:05] VITALS: O2SAT 97
[2020-06-26] MEDS ORDERED: TAMSULOSIN 0.4 MG SR CAP PO SCH (21:00)
== END 2020-06-26 12:30 | disposition home or self-care (01) ==
LOC: ER 10:26 → ERHOLD 15:22 → 4TH 22:27
PROVIDERS: ADMIT Family Medicine; ATTEND Family Medicine
DX: J44.1 Chronic obstructive pulmonary disease with (acute) exacerbation (principal); C32.9 Malignant neoplasm of larynx, unspecified; R22.1 Localized swelling, mass and lump, neck; J30.2 Other seasonal allergic rhinitis; I73.9 Peripheral vascular disease, unspecified; N40.0 Benign prostatic hyperplasia without lower urinary tract symptoms; I25.10 Atherosclerotic heart disease of native coronary artery without angina pectoris; I10 Essential (primary) hypertension; E78.00 Pure hypercholesterolemia, unspecified; R60.9 Edema, unspecified; G25.0 Essential tremor; Z79.52 Long term (current) use of systemic steroids; Z99.81 Dependence on supplemental oxygen; F17.210 Nicotine dependence, cigarettes, uncomplicated; Z20.822 Contact with and (suspected) exposure to COVID-19; Z88.2 Allergy status to sulfonamides; Z88.3 Allergy status to other anti-infective agents; Z93.1 Gastrostomy status; Z87.01 Personal history of pneumonia (recurrent); Z86.61 Personal history of infections of the central nervous system; Z95.820 Peripheral vascular angioplasty status with implants and grafts
CPT/HCPCS: 93005; 87070; 85025 ×2; 80048 ×2; 36415; 83735 ×2; 87205; 85610; 80076; 84484; 83880; 71045; 94640; 96374; 99285; U0003; J1650; J7605 ×2; J7799; J2930 ×3; 81003; 81015; G0378; J7512

== ENCOUNTER 2020-07-06 07:35 | Observation (INO) | payer OTHER ==
--- OUTSIDE RECORDS SUMMARY | 2020-07-06 07:38 | XMS REPORT | Continuity of Care Document ---
:1945 Author Organization [facility] t Address [address] [place] [address] Care Team Providers Name Role Phone Mj [...] Date Clinician cephalex DA Active U 2019-03 [facility] in 00:00: [address] Medications This patient has no known medications. Procedures This patient has no known procedures. Encounters Start End Encounter Admission Attending Care Care Encounter Source Date/Time Date/Time Type Type Clinicians Facility Department ID 2017-11-29 2017-11-29 Outpatient Wyatt, MHMISCHER MHMISCHER [id number] 13:30:00 13:30:00 [facility] 2017-06-05 2017-06-05 Outpatient Wyatt, MHMISCHER MHMISCHER [id number] 13:15:00 23:59:59 [facility] 2017-04-24 2017-04-24 Outpatient Wyatt, MHMISCHER MHMISCHER [id number] 14:15:00 23:59:59 [facility] 2017-04-24 2017-04-24 Outpatient Wyatt, MHMISCHER MHMISCHER [id number] 14:15:00 23:59:59 [facility] 2017-04-12 2017-04-13 Outpatient MHMISCHER MHMISCHER [id number] 11:38:00 23:59:59 2016-05-30 2016-06-28 Outpatient Tsinopoulos 2.16.840. 2.16.840. 1. [id number] 09:00:00 23:59:00 , Ebba [id number]. [id number] 00 Ning 3.615.15 5.15 [facility] 2016-06-21 2016-06-28 Outpatient Ishfaq, MH9 MH9 [id number] 13:24:00 19:30:00 Kohler 2016-05-31 2016-05-31 Outpatient Sahil Judd [id number] eClinic 14:30:00 14:30:00 Binta nur 2016-05-17 2016-05-18 Outpatient Crow Calzada MH9 MH9 [id number] 11:39:00 18:19:00 Ali 2015-07-15 2015-07-20 Outpatient Payan, MH9 MH9 [id number] 18:00:00 12:31:00 Alicia Jefe 2015-07-13 2015-07-14 Outpatient Payan, MH9 MH9 [id number] 13:41:00 15:50:00 Alicia 04 Jefe 2015-05-06 2015-05-07 Outpatient Pascual Brunner MH9 MH9 [id number] 12:00:00 16:00:00 2014-07-31 2014-07-31 Outpatient DeFriece, [facility] [id number] 13:53:00 23:59:00 Ifeanyi Dobbins 2014-07-28 2014-07-28 Outpatient DeFriece, [facility] [id number] 16:00:00 23:59:00 Ifeanyi Dobbins 2013-11-27 2013-11-27 Outpatient DeFriece, [facility] [id number] 18:11:00 23:59:00 Ifeanyi Dobbins 2013-10-09 2013-10-09 Outpatient Lele, [facility] [id number] 08:55:00 23:59:00 Sriram 00 2013-05-17 2013-05-18 Outpatient Brunner, Pascual [facility] [id number] 11:45:00 12:45:00 65 Results Test Description Test Time Test Comments Results Result Comments Source ACT-ISTAT 2020-04-25 09:23:00 Test Item Value Reference Range Interpretation Comme nts ACT-ISTAT (test code = ACTI) 246 SEC 74-137 H BASIC METABOLIC [id number] 09:14:00 Test Item Value Reference Range Interpretation [...] RECOLLECTION NEEDED ON 04/25/20 AT 0817 BY [id number]: POSSIBLE CONTAMINTION.NOTIFIED PATIENT CARE STAFF: BRITNYLIPID PROFILE [...] RECOLLECTION NEEDED ON 04/25/20 AT 08 BY Z.LAB.MU0TMFSJT: POSSIBLE CONTAMINTION.NOTIFIED PATIENT CARE STAFF: [id number] 09:14:00 Test Item Value Reference Range Interpretation Comments MAGNESIUM (test code = MAG) 2.0 MG/DL 1.6-2.3 N RECOLLECTION NEEDED ON 04/25/20 AT 08 BY Z.LAB.QZ1KYUSYP: POSSIBLE CONTAMINTION.NOTIFIED PATIENT CARE STAFF: [facility] METABOLIC [id number] 09:02:00 Test Item Value Reference Range Interpretation [...] RECOLLECTION NEEDED ON 04/25/20 AT 0817 BY Z.LAB.QZ8JINPFL: POSSIBLE CONTAMINTION.NOTIFIED PATIENT CARE STAFF: AMYLIPID PROFILE [...] RECOLLECTION NEEDED ON 04/25/20 AT 08 BY Z.LAB.KZ5MNVAJL: POSSIBLE CONTAMINTION.NOTIFIED PATIENT CARE STAFF: [id number] 09:02:00 Test Item Value Reference Range Interpretation Comments MAGNESIUM (test code = MAG) MG/DL 1.6-2.3 RECOLLECTION NEEDED ON 04/25/20 AT 08 BY Jose De Jesus.LAB.HN2CQMTLD: POSSIBLE CONTAMINTION.NOTIFIED PATIENT CARE STAFF: AMYBASIC METABOLIC [id number] 08:52:00 Test Item Value Reference Range Interpretation [...] RECOLLECTION NEEDED ON 04/25/20 AT 08 BY Z.LAB.CQ8XXLFSB: POSSIBLE CONTAMINTION.NOTIFIED PATIENT CARE STAFF: AMYLIPID PROFILE [...] RECOLLECTION NEEDED ON 04/25/20 AT 08 BY Z.LAB.RR1PLXDHZ: POSSIBLE CONTAMINTION.NOTIFIED PATIENT CARE STAFF: [id number] 08:52:00 Test Item Value Reference Range Interpretation Comments MAGNESIUM (test code = MAG) MG/DL 1.6-2.3 RECOLLECTION NEEDED ON 04/25/20 AT 08 BY Z.LAB.OC2BLWBIT: POSSIBLE CONTAMINTION.NOTIFIED PATIENT CARE STAFF: AMYPROTHROMBIN [id number] 06:44:00 Test Item Value Reference Range Interpretation [...] syste manish embolism. 3.0 - 4.5 PTT [id number] 06:44:00 Test Item Value Reference Range Interpretation Comments PTT ACTIVATED (test code = APTT) 23.6 SECONDS 25.1-36.5 L CBC W/AUTO [id number] 06:33:00 Test Item Value Reference Range Interpretation [...] 0.0-0.1 N NRBC#) COVID 19 Asymptomatic IH [id number] 05:24:00 Test Item Value Reference Range Interpretation [...] in the sample." - INS GASTRO TUBE [id number] 15:10:00 [facility] : 1945 Sex: M Name: SHIRLENE NICHOLAS : 1945ge/S: 74 / M [address] [address] Unit #: [id number] Loc: [place] [address] Phys: Sapna Rosas MD Acct: [id number] Dis Date: [id number] Status: DIS IN PHONE#: [phone] Exam Date: 01/02/2020 1200 FAX #: Reason: THROAT CA EXAMS: CPT: [id number] INS GASTRO TUBE PERC 32363 Fluoro Time:00:24 DAP (Gy m2): 1 Air Kerma (mGy): 0.27 C3 Procedure: Aborted gastrostomy tube Indication: Dysphagia. Head and neck cancer. Date: 01/02/2020 Operators: Jason Rosa M.D. Medications: 1 mg IV glucagon IV Versed, and IV fentanyl Ljxx-nf-drar time: Approximately 30 minutes. Complications: None immediate [...] left. IV glucagon was administered. Through a 5-Ivorian Kumpe catheter which was placed in the [...] NICHOLAS : 1945 Age/S: 74 / M [address] [address] Unit #: [id number] Loc: [place] [address] Phys: Sapna Rosas MD Acct: [id number] Dis Date: [id number] Status: DIS IN PHONE #: [phone] Exam Date: 01/02/2020 1200 FAX #: Reason: THROAT CA EXAMS: CPT: [id number] INS GASTRO TUBE PERC 07898 Fluoro Time: 00:24 DAP (Gy m2): 1 Air Kerma (mGy): 0.27 <Continued> at 1510 Reported and signed by: Jason Rosa M.D. CC: Sapna Rosas MD; Morteza Arriaza MD PAGE 2 Signed Report Name: SHIRLENE NICHOLAS [place] : 1945 Age/S: 74 / M [address] [address] Unit #: [id number] Loc: [place] [address] Phys: Sapna Rosas MD Acct: [id number] Dis Date: 20200108 Status: DIS IN PHONE #: [phone] Exam Date: 01/02/2020 1200 FAX #: Reason: THROAT CA EXAMS: CPT: [id number] INS GASTRO TUBE PERC 87058 Fluoro Time: 00:24 DAP (Gy m2): 1 Air Kerma (mGy): 0.27 <Continued> Technologist: Kanika Garcia Trnmnb Date/Time: 01/23/2020 (151) TessaSI1 Orig Print D/T: S: 01/23/2020 (1513) PAGE 3 Signed ReportGLUCOSE BEDSIDE [id number] 11:44:00 Test Item Value Reference Range Interpretation Comments GLUCOSE BEDSIDE TESTING (test code 131 mg/dL 70-110 H = GLUBED) GLUCOSE BEDSIDE [id number] 07:59:00 Test Item Value Reference Range Interpretation Comments GLUCOSE BEDSIDE TESTING (test code = 79 mg/dL 70-110 N GLUBED) GLUCOSE BEDSIDE [id number] 06:23:00 Test Item Value Reference Range Interpretation Comments GLUCOSE BEDSIDE TESTING (test code = 87 mg/dL 70-110 N GLUBED) GLUCOSE BEDSIDE [id number] 11:37:00 Test Item Value Reference Range Interpretation Comments GLUCOSE BEDSIDE TESTING (test code 101 mg/dL 70-110 N = GLUBED) GLUCOSE BEDSIDE [id number] 08:43:00 Test Item Value Reference Range Interpretation Comments GLUCOSE BEDSIDE TESTING (test code 114 mg/dL 70-110 H = GLUBED) GLUCOSE BEDSIDE [id number] 20:55:00 Test Item Value Reference Range Interpretation Comments GLUCOSE BEDSIDE TESTING (test code = 86 mg/dL 70-110 N GLUBED) - XR SWLW FUNC W/C [id number] 12:12:00 [facility] 1945 Sex: M Name: SHIRLENE NICHOLAS [facility] : 1945ge/S: 74 / M [address] [address] Unit #: [id number] Loc: [place] [address] Phys: Sapna Rosas MD Acct: [id number] Dis Date: Status: ADM IN PHONE#: [phone] Exam Date: 01/06/2020 1000 FAX #: Reason: MBS EXAMS: CPT: [id number] XR SWLW FUNC W/C V 10202 Fluoro Time:132 DAP (Gy m2): Air Kerma [...] PAGE 1 Signed Report Name: SHIRLENE NICHOLAS [place] : 1945 Age/S: 74 / M [address] [address] Unit #: [id number] Loc: [place] [address] Phys: Sapna Rosas MD Acct: [id number] Dis Date: Status: ADMIN PHONE #: [phone] Exam Date: 01/06/2020 1000 FAX #: Reason: MBS EXAMS: CPT: [id number] XR SWLW FUNC W/C V 92874 Fluoro Time: 132 DAP (Gy m2): Air Kerma (mGy): 8.79 <Continued> Technologist: Wayne Cleary, RT(R)(CT) Trnscb Date/Time: 01/06/2020 (1212) t.ISISR.ANS4 Orig Print D/T: S: 01/06/2020 (1215) PAGE 2 Signed ReportGLUCOSE BEDSIDE [id number] 11:57:00 Test Item Value Reference Range Interpretation Comments GLUCOSE BEDSIDE TESTING (test code 136 mg/dL 70-110 H = GLUBED) GLUCOSE BEDSIDE [id number] 10:25:00 Test Item Value Reference Range Interpretation Comments GLUCOSE BEDSIDE TESTING (test code 105 mg/dL 70-110 N = GLUBED) - XR CHEST 1 [id number] 07:39:00 [facility] : 1945 Sex: M Name: SHIRLENE NICHOLAS [place] : 1945ge/S: 74 / M [address] [address] Unit #: [id number] Loc: [place] [address] Phys: Magen Hammond MD Acct: [id number] Dis Date: Status: ADM IN PHONE#: [phone] Exam Date: 01/06/2020604 FAX #: Reason: pneumnonia EXAMS: CPT: [id number] XR CHEST 1 V 45518 Fluoro Time: DAP (Gy m2): Air Kerma [...] PAGE 1 Signed Report Name: SHIRLENE NICHOLAS [place] : 1945 Age/S: 74 / M [address] [place] [address] Unit #: [id number] Loc: [place] [address] Phys: Magen Hammond MD Acct: [id number] Dis Date: Status: ADM IN PHONE #: [phone] ExamDate: 01/06/2020 06 FAX #: Reason: pneumnonia EXAMS: CPT: [id number] XR CHEST 1 V 40075 Fluoro Time: DAP (Gy m2): Air Kerma (mGy): <Continued> Technologist: Tati Buchanan, RT(R)(CT) Trnscb Date/Time: 01/06/2020 (0739) TessaHV2 Orig Print D/T: S: 01/06/2020 (0742) PAGE 2 Signed Report GLUCOSE BEDSIDE [id number] 04:31:00 Test Item Value Reference Range Interpretation Comments GLUCOSE BEDSIDE TESTING (test code = 89 mg/dL 70-110 N GLUBED) GLUCOSE BEDSIDE [id number] 20:49:00 Test Item Value Reference Range Interpretation Comments GLUCOSE BEDSIDE TESTING (test code 109 mg/dL 70-110 N = GLUBED) GLUCOSE BEDSIDE [id number] 12:37:00 Test Item Value Reference Range Interpretation Comments GLUCOSE BEDSIDE TESTING (test code 160 mg/dL 70-110 H = GLUBED) - CT CHEST W/O [id number] 10:09:00 [facility] : 1945 Sex: M Name: SHIRLENE NICHOLAS [facility] : 1945ge/S: 74 / M [address] [address] Unit #: [id number] Loc: [place] [address] Phys: Sapna Rosas MD Acct: [id number] Dis Date: Status: ADM IN PHONE#: [phone] Exam Date: 01/05/2020 0958 FAX #: Reason:TANIKA CONGESTION EXAMS: CPT: [id number] CT CHEST W/O CONTRAST 16502 EXAM: - CT CHEST W/O CONTRAST INDICATION: [...] 1 Signed Report (CONTINUED) Name: SHIRLENE NICHOLAS [place] : 1945 Age/S: 74 / M [address] [address] Unit #: [id number] Loc: [place] [address] Phys: Sapna Rosas MD Acct: [id number] Dis Date: Status: ADM IN PHONE #: [phone] ExamDate: 01/05/2020 0941 FAX #: Reason: TANIKA CONGESTION EXAMS: CPT: [id number] CT CHEST W/O CONTRAST 38563 <Continued> at 1009 Reported and signed by: Lalo Lao M.D. CC: Sapna Rosas MD; Morteza Arriaza MD Technologist:Anne-Marie Cuevas RT(R)(CT) CTDI: DLP: Trnscb Date/Time: 01/05/2020 (1009) t.ISISR.AH26 Orig Print D/T: S: 01/05/2020 (1012) PAGE 2 Signed ReportGLUCOSE BEDSIDE [id number] 07:56:00 Test Item Value Reference Range Interpretation Comments GLUCOSE BEDSIDE TESTING (test code 137 mg/dL 70-110 H = GLUBED) GLUCOSE BEDSIDE [id number] 00:33:00 Test Item Value Reference Range Interpretation Comments GLUCOSE BEDSIDE TESTING (test code 162 mg/dL 70-110 H = GLUBED) - CT ABD PELVIS [id number] 13:06:00 [facility] : 1945 Sex: M Name: SHIRLENE NICHOLAS [facility] : 1945ge/S: 74 / M [address] [address] Unit #: [id number] Loc: [place] [address] Phys: Sapna Rosas MD Acct: [id number] Dis Date: Status: ADM IN PHONE#: [phone] Exam Date: 01/04/2020 1230 FAX #: Reason:abd pain EXAMS: CPT: [id number] CT ABD PELVIS W/CONT 62420 CT abdomen and pelvis with IV contrast. [...] [facility] : 1945 Age/S: 74 / [id number] [address] [place] Unit #: [id number] Loc: [place] [address] Phys: Sapna Rosas MD Acct: [id number] Date: Status: ADM IN PHONE #: [phone] Exam Date: 01/04/2020 1230 FAX #: Reason: abd pain EXAMS: CPT: [id number] CT ABD PELVIS W/CONT 42416 <Continued> Interval development of upper abdominal foci [...] (1306) t.ISISR.RH16 Orig Print D/T: S: 01/04/2020 (3288) PAGE 2 Signed Report- XR ABDOMEN 1 [id number] 08:50:00 [facility] : 1945 Sex: M Name: SHIRLENE NICHOLAS [facility] : 1945ge/S: 74 / M [address] [address] [place] Unit #: [id number] Loc: [place] [address] Phys: Sapna Rosas MD Acct: [id number] Dis Date: Status: ADM IN PHONE#: [phone] Exam Date: 01/04/2020 08 FAX #: Reason: abd pain EXAMS: CPT: [id number] XR ABDOMEN 1 V 66556 Fluoro Time: DAP (Gy m2): Air Kerma [...] Center : 1945 Age/S: 74 / M [address] [address] [place] Unit #: [id number] Loc: [place] [address] Phys: Sapna oRsas MD Acct: [id number] Dis Date: Status: ADM IN PHONE #: [phone] Exam Date: 01/04/2020 0837 FAX #: Reason: abd pain EXAMS: CPT: [id number] XR ABDOMEN 1 V 43235 Fluoro Time: DAP(Gy m2): Air Kerma (mGy): <Continued> Technologist: Anne-Marie Cuevas RT(R)(CT) Trnscb Date/Time: 01/04/2020 (0850) t.ISISR.RH16 Orig Print D/T: S: 01/04/2020 (0853) PAGE 2 Signed Report- XR CHEST 1 [id number] 08:50:00 [facility] : 1945 Sex: M Name: SHIRLENE NICHOLAS [facility] : 1945ge/S: 74 / M [address] [facility] Unit #: [id number] Loc: [place] [address] Phys: Sapna Rosas MD Acct: [id number] Dis Date: Status: ADM IN PHONE#: [phone] Exam Date: 01/04/2020 0837 FAX #: Reason: cough EXAMS: CPT: [id number] XR CHEST 1 V 76084 Fluoro Time: DAP (Gy m2): Air Kerma [...] Center : 1945 Age/S: 74 / M [address] [address] [place] Unit #: [id number] Loc: [place] [address] Phys: Sapna Rosas MD Acct: [id number] Dis Date: Status: ADM IN PHONE #: [phone] Exam Date: 01/04/2020 0837 FAX #: Reason: cough EXAMS: CPT: [id number] XR CHEST 1 V 48997 Fluoro Time: DAP(Gy m2): Air Kerma (mGy): <Continued> Technologist: Anne-Marie Cuevas RT(R)(CT) Trnscb Date/Time: 01/04/2020 (0850) tVERENAR.RH16 Orig Print D/T: S: 01/04/2020 (0304) PAGE 2 Signed ReportBASIC METABOLIC [id number] 10:05:00 Test Item Value Reference Range Interpretation [...] code = CA) 7.4 MG/DL 8.5-10.1 L [id number] 10:05:00 Test Item Value Reference Range Interpretation Comments MAGNESIUM (test code = MAG) 1.7 MG/DL 1.8-2.4 L PROTHROMBIN [id number] 09:57:00 Test Item Value Reference Range Interpretation Comments PT PATIENT (test code = PTP) 11.5 SECONDS 9.3-12.9 N INTERNATIONAL NORMAL RATIO 1.02 INR Unit 0.8-1.2 N (test code = INR) CBC W/AUTO [id number] 09:50:00 Test Item Value Reference Range Interpretation [...] = MDIFF) - CT ABD PELVIS W/O [id number] 10:46:00 [facility] : 1945 Sex: M Name: SHIRLENE NICHOLAS [facility] : 1945Age/S: 74 / M [address] [address] [place] Unit #: [id number] Loc: [place] [address] Phys: Jason Rosa MD Acct: [id number] Dis Date: Status: ADM IN PHONE#: [phone] Exam Date: 01/02/2020 100 FAX #: Reason:PEG placement planning EXAMS: CPT: [id number] CT ABD PELVIS W/O CONT 44076 EXAM: CT pelvis abdomen and without contrast [...] NICHOLAS : 1945 Age/S: 74 / M [address] [facility] Unit #: [id number] Loc: [place] [address] Phys: Jason Rosa MD Acct: [id number] Dis Date: Status: ADM IN PHONE #: [phone] Exam Date: 01/02/2020 1005 FAX #: Reason: PEG placement planning EXAMS: CPT: [id number] CT ABD PELVIS W/O CONT 46261 <Continued> Evaluation of the bladder is limited, [...] Center : 1945 Age/S: 74 / M [address] [address] [place] Unit #: [id number] Loc: [place] [address] Phys: Jason Rosa MD Acct: [id number] Dis Date: Status: ADM IN PHONE #: [phone] Exam Date: 01/02/2020 1000 FAX #:Reason: PEG placement planning EXAMS: CPT: [id number] CT ABD PELVIS W/O CONT 82067 <Continued> at 1046 Reported and signed by: French Vazquez M.D. CC: Sapna Rosas MD; Jason Rosa MD; Morteza Arraiza MD Technologist:Viola Leger, RT(R) CTDI: DLP: Trnscb Date/Time: 01/02/2020 (1046) t.SDR.HPD Orig Print D/T: S: 01/02/2020 (5664) PAGE 3 Signed ReportCOVID 19 INHOUSE [id number] 13:50:00 Test Item Value Reference Range Interpretation Comments COVID 19 INHOUSE AG NEGATIVE Negative Per manu facturer, (test code = negative result s should [id number]) be treated aspr esumptive and, if inconsi [...] symptoms co nsistent with COVID-19. CBC W/AUTO [id number] 12:12:00 Test Item Value Reference Range Interpretation [...] NO DIFF/SCN CRITERIA = MDIFF) BASIC METABOLIC [id number] 12:12:00 Test Item Value Reference Range Interpretation [...]
[2020-07-06] MEDS ORDERED: LEVALBUTEROL 1.25 MG/3 ML NEB ONE ×2 (08:17→08:36)
[2020-07-06] MEDS ORDERED: NA CHLORIDE 0.9% 1,000 ML ONE (08:17)
[2020-07-06] MEDS ORDERED: IPRATROPIUM BROM 0.5MG/2.5ML ONE (08:17)
--- NOTE | 2020-07-06 08:20 | ER ---
Nurse's Notes [facility] Name: Bossman Gooden Age: 75 yrs Sex: Male : 1945 Arrival Date: 07/06/2020 Time: 07:35 Bed 7 Private MD: Dereck Toussaint R Diagnosis: Chronic obstructive pulmonary disease with (acute) exacerbation;Dyspnea, unspecified Presentation: 07/06 07:58 Chief complaint: Patient states: SOB and cough since Monday. Reports O2 sat being low mg2 yesterday <90%. No known fever. Coronavirus screen: Client denies travel out of the [place] in the last 14 days. cough unrelated to allergies, difficulty breathing, fatigue, shortness of breath, sore throat, Client presents with at least one sign or symptom that may indicate coronavirus-19. Standard/surgical mask placed on the client. Ebola Screen: Patient denies travel to an Ebola-affected area in the 21 days before illness onset. Initial Sepsis Screen: Does the patient meet any 2 criteria? RR > 20 per min. No. Patient's initial sepsis screen is negative. Does the patient have a suspected source of infection? Yes: Productive cough/pneumonia. Risk Assessment: Do you want to hurt yourself or someone else? Patient reports no desire to harm self or others. Onset of symptoms was July 04, 2020. 07:58 Method Of Arrival: Wheelchair mg2 07:58 Acuity: GUANACO 3 mg2 Triage Assessment: 12:26 Respiratory: the patient has mild shortness of breath. ld1 Historical: - Allergies: 07:57 Keflex; mg2 07:57 Sulfa (Sulfonamide Antibiotics); mg2 - Home Meds: 10:19 aspirin 81 mg Oral chew 1 tab once daily [Active]; Mucinex oral oral [Active]; Ventolin ld1 Nebulizer [Active]; montelukast oral oral [Active]; Prednisolone Oral [Active]; clopidogrel 75 mg oral tab 1 tab once daily [Active]; tamsulosin oral oral [Active]; Famotidine Oral [Active]; - PMHx: 07:57 Asthma; ESSENTIAL TREMORS; Emphysema; High Cholesterol; EDEMA; COPD; CAD; Hypertension; mg2 Pneumonia; meningitis; - PSHx: 07:57 Tonsillectomy; Stents on Legs; feeding tube; mg2 - Immunization history:: Client reports receiving the 2nd dose of the Covid vaccine, Flu vaccine is up to date. - Social history:: Smoking status: Patient reports the use of cigarette tobacco products, smokes one-half pack cigarettes per day. Screenin:27 Abuse screen: Denies threats or abuse. Denies injuries from another. Nutritional ld1 screening: No deficits noted. Tuberculosis screening: No symptoms or risk factors identified. Fall Risk IV access (20 points). Assessment: 08:27 General: Appears in no apparent distress. uncomfortable, Behavior is calm, cooperative, ld1 appropriate for age. Pain: Complains of pain in right eye, left eye and nose Pain radiates to forehead Pain currently is 9 out of 10 on a pain scale. Quality of pain is described as throbbing, Pain began 1 day ago. Is continuous, Aggravated by Coughing. Neuro: Level of Consciousness is awake, alert, obeys commands, Oriented to person, place, time, situation. Cardiovascular: Capillary refill < 3 seconds Patient's skin is warm and dry. Rhythm is regular. Respiratory: Airway is patent Respiratory effort is even, labored, Respiratory pattern is regular, symmetrical, Breath sounds with wheezes bilaterally. GI: Abdomen is flat, non-distended. GI: PEG tube to LLQ. No redness, swelling or drainage. : No deficits noted. EENT: Reports difficulty swallowing nasal congestion since 07/04/2020. Derm: No deficits noted. Musculoskeletal: No deficits noted. 09:43 Reassessment: Patient and/or family updated on plan of care and expected duration. Pain ld1 level reassessed. Patient is alert, oriented x 3, equal unlabored respirations, skin warm/dry/pink. Pain level is now 4/10. Patient states symptoms have improved. 11:31 Reassessment: Patient and/or family updated on plan of care and expected duration. Pain ld1 level reassessed. Patient is alert, oriented x 3, equal unlabored respirations, skin warm/dry/pink. Laying in bed sleeping. No signs of distress, respirations are even and unlabored. Patient denies pain at this time. 12:24 Reassessment: Patient and/or family updated on plan of care and expected duration. Pain ld1 level reassessed. Patient is alert, oriented x 3, equal unlabored respirations, skin warm/dry/pink. Admitted to ER hold status, charting continued in [facility]. Patient denies pain at this time. 22:18 Reassessment: Patient and/or family updated on plan of care and expected duration. Pain ea level reassessed. Patient is alert, oriented x 3, equal unlabored respirations, skin warm/dry/pink. Report given to receiving nurse on second floor. Vital Signs: 07:58 BP 143 / 71; Pulse 82; Resp 24; Temp 98.9; Pulse Ox 98% ; Weight 58.97 kg; Height 6 ft. mg2 0 in. (182.88 cm); Pain 6/10; 08:27 BP 141 / 88; Pulse 67; Resp 20; Temp 98.9(O); Pulse Ox 100% on Nebulizer Mask; Weight ld1 58.97 kg; Pain 9/10; 09:39 BP 145 / 57; Pulse 64; Resp 15 S; Pulse Ox 95% on R/A; ld1 10:40 BP 126 / 51; Pulse 66; Resp 18; Pulse Ox 93% on R/A; ld1 11:31 BP 103 / 40; Pulse 69; Resp 18; Pulse Ox 93% on R/A; ld1 08:27 Body Mass Index 17.63 (58.97 kg, 182.88 cm) ld1 ED Course: 07:35 Patient arrived in ED. am2 07:35 Dereck Toussaint MD is Private Physician. am2 07:44 Paco Smith MD is Attending Physician. tsering 07:55 Janey Ramon RN is Primary Nurse. ld1 07:56 Arm band placed on Patient placed in an exam room, on a stretcher. mg2 08:00 Triage completed. mg2 08:10 Inserted saline lock: 22 gauge in right forearm, using aseptic technique. Blood jl7 collected. 08:10 First set of blood cultures drawn. jl7 08:14 XRAY Chest (1 view) In Process Unspecified. EDMS 08:18 X-ray completed. Portable x-ray completed in exam room. Patient tolerated procedure sw well. 08:19 Noah Duarte is Hospitalizing Provider. tsering 08:19 Initial lab(s) drawn, by ky, sent to lab. Second set of blood cultures drawn. Inserted jl7 saline lock: 20 gauge in left antecubital area, using aseptic technique. Blood collected. 08:22 Patient has correct armband on for positive identification. Bed in low position. Call mh5 light in reach. Side rails up X 1. Adult w/ patient. Warm blanket given. campus monitor on. Pulse ox on. NIBP on. : EKG done, by ED staff, reviewed by Paco Smith MD. 5 08:27 No provider procedures requiring assistance completed. ld1 12:26 Patient admitted, IV remains in place. intact, No redness/swelling at site. ld1 Administered Medications: 08:25 Drug: SOLU-Medrol (methylPrednisoLONE) 125 mg Route: IVP; Site: right forearm; ld1 09:00 Follow up: Response: No adverse reaction ld1 08: Drug: Xopenex (levalbuterol) 2.5 mg Route: Inhalation; ld1 :00 Follow up: Response: No adverse reaction ld1 : Drug: NS 0.9% 1000 ml Route: IV; Rate: 125 ml/hr; Site: left forearm; ld1 09:00 Follow up: Response: No adverse reaction ld1 21:40 Follow up: IV Status: Infusion continued upon admission rv : Drug: Xopenex (levalbuterol) 1.25 mg Route: Inhalation; ld1 09:00 Follow up: Response: No adverse reaction ld1 08: Drug: AtroVENT (ipratropium) Aerosol 0.5 mg Route: Inhalation; ld1 09:12 Drug: Zosyn (piperacillin-tazobactam) 3.375 grams Route: IVPB; Infused Over: 60 mins; ld1 Site: right forearm; 09:45 Follow up: Response: No adverse reaction ld1 Outcome: 08:19 Decision to Hospitalize by Provider. [facility] 12:26 Admitted to ER Hold. Please see [employer] for further documentation. ld1 12: Condition: stable 12:26 Instructed on the need for admit. 22:19 Patient left the ED. ea Signatures: Dispatcher [employer] EDMS Paco Smith MD MD cha Warren, Anastacia Jackson 5 Mariama Velázquez RN RN jl7 Libby Patino am2 Jovita Pena RN RN ea Gardose, Michele RN YULISA [facility] Obdulio Tinsley RN RN Dibbern, Janey, RN RN ld1 Corrections: (The following items were deleted from the chart) 08:48 08:14 CORONAVIRUS+ drawn and sent. ld1 EDMS
--- NOTE | 2020-07-06 08:21 | EDPHYS ---
Physician Documentation [facility] Name: Bossman Gooden Age: 75 yrs Sex: Male : 1945 Arrival Date: 07/06/2020 Time: 07:35 Bed 7 Private MD: Dereck Toussaint R ED Physician Paco Smith HPI: 07/06 08:12 This 75 yrs old Male presents to ER via Wheelchair with complaints of tsering Breathing Difficulty, Shortness Of Breath. 08:12 This 75 yrs old Male presents to ER via Wheelchair with complaints of tsering Breathing Difficulty, Shortness Of Breath. 08:12 The patient has shortness of breath at rest, with light activity. Onset: The tsering symptoms/episode began/occurred 3 day(s) ago. Duration: The symptoms are continuous, and are steadily getting worse. The patient's shortness of breath has no apparent modifying factors. Associated signs and symptoms: Pertinent positives: non-productive cough, nausea. Severity of symptoms: At their worst the symptoms were moderate in the emergency department the symptoms are unchanged. The patient has experienced similar episodes in the past, multiple times. Historical: - Allergies: 07:57 Keflex; mg2 07:57 Sulfa (Sulfonamide Antibiotics); mg2 - Home Meds: 10:19 aspirin 81 mg Oral chew 1 tab once daily [Active]; Mucinex oral oral [Active]; Ventolin ld1 Nebulizer [Active]; montelukast oral oral [Active]; Prednisolone Oral [Active]; clopidogrel 75 mg oral tab 1 tab once daily [Active]; tamsulosin oral oral [Active]; Famotidine Oral [Active]; - PMHx: 07:57 Asthma; ESSENTIAL TREMORS; Emphysema; High Cholesterol; EDEMA; COPD; CAD; Hypertension; mg2 Pneumonia; meningitis; - PSHx: 07:57 Tonsillectomy; Stents on Legs; feeding tube; mg2 - Immunization history:: Client reports receiving the 2nd dose of the Covid vaccine, Flu vaccine is up to date. - Social history:: Smoking status: Patient reports the use of cigarette tobacco products, smokes one-half pack cigarettes per day. ROS: 08:14 Constitutional: Negative for fever, chills, and weight loss, Eyes: Negative for injury, tsering pain, redness, and discharge, ENT: Negative for injury, pain, and discharge, Neck: Negative for injury, pain, and swelling, Cardiovascular: Negative for chest pain, palpitations, and edema, Abdomen/GI: Negative for abdominal pain, nausea, vomiting, diarrhea, and constipation, Back: Negative for injury and pain, : Negative for injury, bleeding, discharge, and swelling, MS/Extremity: Negative for injury and deformity, Skin: Negative for injury, rash, and discoloration, Neuro: Negative for headache, weakness, numbness, tingling, and seizure, Psych: Negative for depression, anxiety, suicide ideation, homicidal ideation, and hallucinations, Allergy/Immunology: Negative for hives, rash, and allergies, Endocrine: Negative for neck swelling, polydipsia, polyuria, polyphagia, and marked weight changes, Hematologic/Lymphatic: Negative for swollen nodes, abnormal bleeding, and unusual bruising. 08:14 Respiratory: Positive for cough, shortness of breath, wheezing, inspiratory, expiratory. Exam: 08:14 Constitutional: This is a well developed, well nourished patient who is awake, alert, tsering and in no acute distress. Head/Face: Normocephalic, atraumatic. Eyes: Pupils equal round and reactive to light, extra-ocular motions intact. Lids and lashes normal. Conjunctiva and sclera are non-icteric and not injected. Cornea within normal limits. Periorbital areas with no swelling, redness, or edema. ENT: Nares patent. No nasal discharge, no septal abnormalities noted. Tympanic membranes are normal and external auditory canals are clear. Oropharynx with no redness, swelling, or masses, exudates, or evidence of obstruction, uvula midline. Mucous membranes moist. Neck: Trachea midline, no thyromegaly or masses palpated, and no cervical lymphadenopathy. Supple, full range of motion without nuchal rigidity, or vertebral point tenderness. No Meningismus. Chest/axilla: Normal chest wall appearance and motion. Nontender with no deformity. No lesions are appreciated. Cardiovascular: Regular rate and rhythm with a normal S1 and S2. No gallops, murmurs, or rubs. Normal PMI, no JVD. No pulse deficits. Abdomen/GI: Soft, non-tender, with normal bowel sounds. No distension or tympany. No guarding or rebound. No evidence of tenderness throughout. Back: No spinal tenderness. No costovertebral tenderness. Full range of motion. Male : Normal genitalia with no discharge or lesions. Skin: Warm, dry with normal turgor. Normal color with no rashes, no lesions, and no evidence of cellulitis. MS/ Extremity: Pulses equal, no cyanosis. Neurovascular intact. Full, normal range of motion. Neuro: Awake and alert, GCS 15, oriented to person, place, time, and situation. Cranial nerves II-XII grossly intact. Motor strength 5/5 in all extremities. Sensory grossly intact. Cerebellar exam normal. Normal gait. Psych: Awake, alert, with orientation to person, place and time. Behavior, mood, and affect are within normal limits. 08:14 Respiratory: mild respiratory distress is noted, Respirations: labored breathing, that is mild, that is moderate, Breath sounds: bronchial sounds, that are mild, that are moderate, decreased breath sounds, that are mild, rhonchi, that are moderate, wheezing: inspiratory expiratory Respiratory rate: 24 08:37 ECG was reviewed by the Attending Physician. [facility] Vital Signs: 07:58 BP 143 / 71; Pulse 82; Resp 24; Temp 98.9; Pulse Ox 98% ; Weight 58.97 kg; Height 6 ft. mg2 0 in. (182.88 cm); Pain 6/10; 08:27 BP 141 / 88; Pulse 67; Resp 20; Temp 98.9(O); Pulse Ox 100% on Nebulizer Mask; Weight ld1 58.97 kg; Pain 9/10; 09:39 BP 145 / 57; Pulse 64; Resp 15 S; Pulse Ox 95% on R/A; ld1 10:40 BP 126 / 51; Pulse 66; Resp 18; Pulse Ox 93% on R/A; ld1 11:31 BP 103 / 40; Pulse 69; Resp 18; Pulse Ox 93% on R/A; ld1 08:27 Body Mass Index 17.63 (58.97 kg, 182.88 cm) ld1 MDM: 07:45 Patient medically screened. [facility] 08:16 Differential diagnosis: asthma, Bronchitis Chronic Obstructive Pulmonary Disease tsering pneumonia, pulmonary edema, reactive airway disease, Sepsis. Antibiotic administration: zosyn. The patient's Wells Deep Vein Thrombosis Score was calculated as follows: Total Score: 0-2 Pts- Low Risk. Differential Diagnosis: Bronchitis Influenza Upper Respiratory Infection Sinusitis Otitis Media Asthma Exacerbation Viral Syndrome Pneumonia. The patient's pulmonary embolism risk score was calculated as follows: Total Score: 0-2 points. This patient was found to be at low risk for a pulmonary embolism by using the Well's assessment criteria. Immunization status: Pneumococcal vaccine: Influenza vaccine: Data reviewed: vital signs, nurses notes, lab test result(s), EKG, radiologic studies, plain films. Data interpreted: playground monitor: rate is 82 beats/min, rhythm is regular, Pulse oximetry: on room air is 98 %. Test interpretation: by ED physician or midlevel provider: ECG, plain radiologic studies. Counseling: I had a detailed discussion with the patient and/or guardian regarding: the historical points, exam findings, and any diagnostic results supporting the discharge/admit diagnosis, lab results, radiology results, the need for further work-up and treatment in the hospital. 07/06 07:50 Order name: Basic Metabolic Panel 07/06 07:50 Order name: CBC with Diff 07/06 07:50 Order name: LFT's 07/06 07:50 Order name: Magnesium 07/06 07:50 Order name: NT PRO-BNP 07/06 07:50 Order name: PT-INR 07/06 07:50 Order name: Troponin (emerg Dept Use Only); Complete Time: 08:57 07/06 07:51 Order name: Blood Culture Adult (2) 07/06 07:51 Order name: Lactate; Complete Time: 08:57 07/06 07:51 Order name: Basic Metabolic Panel; Complete Time: 08:57 EDMS 07/06 07:51 Order name: CBC with Automated Diff; Complete Time: 08:57 EDMS 07/06 07:51 Order name: Liver (Hepatic) Function; Complete Time: 08:57 EDMS 07/06 07:50 Order name: XRAY Chest (1 view) 07/06 07:50 Order name: EKG; Complete Time: 07:52 07/06 07:50 Order name: Cardiac monitoring; Complete Time: 08:21 07/06 07:50 Order name: EKG - Nurse/Tech; Complete Time: 08:21 07/06 07:50 Order name: IV Saline Lock; Complete Time: 08:27 07/06 07:51 Order name: Magnesium; Complete Time: 08:57 EDMS 07/06 07:51 Order name: NT PRO-BNP; Complete Time: 08:57 [facility] 07/06 08:34 Order name: Sputum Culture jl7 07/06 09:41 Order name: COVID-19/FLU A+B [facility] 07/06 10:31 Order name: Urine Dipstick-Ancillary [facility] 07/06 07:50 Order name: Labs collected and sent; Complete Time: 08:27 [facility] 07/06 07:50 Order name: O2 Per Protocol; Complete Time: 08:27 [facility] 07/06 07:50 Order name: O2 Sat Monitoring; Complete Time: 08:27 [facility] 07/06 07:51 Order name: Urine Dipstick-Ancillary (obtain specimen); Complete Time: 11:28 [facility] EC:37 Rate is 67 beats/min. Rhythm is regular. QRS [place] is Normal. IN interval is normal. QRS tsering interval is normal. QT interval is normal. No Q waves. T waves are Normal. No ST changes noted. Clinical impression: NSR w/ Non-specific ST/T Changes and No evidence of ischemia. Interpreted by me. Reviewed by me. Administered Medications: 08: Drug: SOLU-Medrol (methylPrednisoLONE) 125 mg Route: IVP; Site: right forearm; ld1 09:00 Follow up: Response: No adverse reaction ld1 08:25 Drug: Xopenex (levalbuterol) 2.5 mg Route: Inhalation; ld1 09:00 Follow up: Response: No adverse reaction ld1 : Drug: NS 0.9% 1000 ml Route: IV; Rate: 125 ml/hr; Site: left forearm; ld1 09:00 Follow up: Response: No adverse reaction ld1 21:40 Follow up: IV Status: Infusion continued upon admission rv : Drug: Xopenex (levalbuterol) 1.25 mg Route: Inhalation; ld1 09:00 Follow up: Response: No adverse reaction ld1 : Drug: AtroVENT (ipratropium) Aerosol 0.5 mg Route: Inhalation; ld1 09:12 Drug: Zosyn (piperacillin-tazobactam) 3.375 grams Route: IVPB; Infused Over: 60 mins; ld1 Site: right forearm; 09:45 Follow up: Response: No adverse reaction ld1 Disposition: 07/06/20 08:19 Hospitalization ordered by Noah Duarte for Inpatient Admission. Preliminary diagnosis are Chronic obstructive pulmonary disease with (acute) exacerbation, Dyspnea, unspecified. - Bed requested for Telemetry/MedSurg (Inpatient). - Status is Inpatient Admission. ea - Condition is Fair. - Problem is new. - Symptoms have improved. Signatures: Dispatcher [employer] EDMS Day Cole bd Nataly Bliss RN RN dw Anderson, Corey, MD MD cha Antunez, Elena, RN RN ea Gardose, Michele, RN RN mg2 Janey Ramon RN RN ld1 Obdulio Tinsley RN rv Corrections: (The following items were deleted from the chart) 08:48 07:51 CORONAVIRUS+MR.LAB.BRZ ordered. EDMS EDMS 08:49 07:51 Influenza Screen (A \T\ B)+BA.LAB.BRZ ordered. EDKS EDKS 14:00 08:19 Hospitalization Ordered by Noah Duarte for Inpatient Admission. Preliminary bd diagnosis is Chronic obstructive pulmonary disease with (acute) exacerbation; Dyspnea, unspecified. Bed requested for Telemetry/MedSurg (Inpatient). Status is Inpatient Admission. Condition is Fair. Problem is new. Symptoms have improved. [facility] 19:36 14:00 07/06/2020 08:19 Hospitalization Ordered by Noah Duarte for Inpatient dw Admission. Preliminary diagnosis is Chronic obstructive pulmonary disease with (acute) exacerbation; Dyspnea, unspecified. Bed [facility] ER HOLD. Status is Inpatient Admission. Condition is Fair. Problem is new. Symptoms have improved. bd 20:26 19:36 07/06/2020 08:19 Hospitalization Ordered by Noah Duarte for Inpatient dw Admission. Preliminary diagnosis is Chronic obstructive pulmonary disease with (acute) exacerbation; Dyspnea, unspecified. Bed requested for Telemetry/MedSurg (Inpatient). Status is Inpatient Admission. Condition is Fair. Problem is new. Symptoms have improved. dw 22:19 20:26 07/06/2020 08:19 Hospitalization Ordered by Noah Duarte for Inpatient ea Admission. Preliminary diagnosis is Chronic obstructive pulmonary disease with (acute) exacerbation; Dyspnea, unspecified. Bed requested for Telemetry/MedSurg (Inpatient). Status is Inpatient Admission. Condition is Fair. Problem is new. Symptoms have improved. dw
[2020-07-06 08:34] LABS: Absolute Lymphocytes (CBC) 0.7 K/uL (0.7-4.9); Basophils % 0.3 % (0-1.3); Hematocrit 37.3 % (39.6-49.0); Lymphocytes % 6.8 % (15.3-44.8); RBC Red Blood Cell Count 3.77 M/uL (4.33-5.43)
[2020-07-06] MEDS ORDERED: METHYLPREDNISOLONE 125 MG INJ ONE (08:36)
[2020-07-06 08:50] LABS: ALT/SGPT 22 U/L (12-78); AST/SGOT 16 U/L (15-37); Albumin 3.4 g/dL (3.4-5.0); Alkaline Phosphatase 59 U/L (45-117); BUN Blood Urea Nitrogen 18 mg/dL (7-18); Bicarbonate 31 mmol/L (21-32); Bilirubin Direct 0.1 mg/dL (0-0.2); Bilirubin Total 0.3 mg/dL (0.2-1.0); Glucose Level 85 mg/dL (74-106); Magnesium 2.3 mg/dL (1.8-2.4); NT PRO-BNP 191 pg/mL (<125); Potassium 3.7 mmol/L (3.5-5.1); Protein, Total 6.8 g/dL (6.4-8.2); Sodium Level 143 mmol/L (136-145); Troponin (Emerg Dept Use Only) < 0.02 ng/mL (0.0-0.045)
[2020-07-06 08:57] LABS: Protime INR 0.97
--- NOTE | 2020-07-06 09:03 | RAD REPORT ---
EXAM DESCRIPTION: RAD - Chest Single View - 07/06/2020 8:14 am CLINICAL HISTORY: Cough;Dyspnea;Fever Chest pain. COMPARISON: Chest Single View dated 06/25/2020; Chest Single View dated 06/16/2020; Chest Pa And Lat (2 Views) dated 05/07/2020; Chest Single View dated 04/02/2020 FINDINGS: Portable technique limits examination quality. The lungs are emphysematous but grossly clear. The heart is normal in size. No displaced fractures. IMPRESSION: Mild diffuse COPD.
[2020-07-06 09:41] LABS: SARS-COV-2 RT PCR NEGATIVE (NEGATIVE)
[2020-07-06 10:32] LABS: Urine Blood Negative (Negative); Urine Glucose Negative (Negative); Urine Protein Negative (Negative); Urine Specific Gravity 1.025 (1.005-1.030)
--- NOTE | 2020-07-06 10:54 | P.HP ---
Certification for Inpatient Patient admitted to: Observation With expected LOS: <2 Midnights Patient will require the following post-hospital care: Home Health Services Practitioner: I am a practitioner with admitting privileges, knowledge of patient current condition, hospital course, and medical plan of care. Services: Services provided to patient in accordance with Admission requirements found in Title 42 Section 412.3 of the Code of Federal Regulations Patient History Date of Service: 07/07/20 Reason for admission: SOB History of Present Illness: Patient presents with SOB for 3 days. He has wheezing. No chest pain. Cough noted. He has a history of COPD. He has worse symptoms. He is not improving. Allergies cephalexin [From Keflex] Allergy (Intermediate, Verified 06/03/20 11:58) Unknown Sulfa (Sulfonamide Antibiotics) Allergy (Verified 06/03/20 11:58) unknown Home medications list reviewed: Yes Home Medications: Aspirin 81 mg PO DAILY 04/20/20 Clopidogrel Bisulfate [Plavix*] 75 mg PO DAILY 04/20/20 Tamsulosin [Flomax*] 0.4 mg PO BEDTIME 06/03/20 predniSONE [Deltasone*] 10 mg PO DAILY 06/03/20 Albuterol Inhaler [Ventolin Inhaler*] 2 puff IH TID PRN #1 06/26/20 Fluticasone [Flonase 50MCG Nasal [place]*] 1 sprays ASHLIE BID #1 btl 06/26/20 Montelukast [Singulair*] 10 mg PO BEDTIME #30 tab 06/26/20 Famotidine 10 mg PO BEDTIME 07/07/20 - Past Medical/Surgical History Diabetic: No -: COPD -: Laryngeal cancer -: Essential tremor -: Peripheral arterial disease -: Chronic Diarrhea -: Tobacco abuse -: History of meningitis, June 2016 -: pneumonia -: Erysipelas -: Appendectomy -: Right leg surgery -: Peripheral arterial disease with stent -: Eye surgery cataract sx on both eyes Psychosocial/ Personal History: The patient is . He has 1 child. 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 - Family History Father -: Lung disease Notes: COPD Mother -: Heart disease - Social History Alcohol use: Yes CD- Drugs: No Caffeine use: Yes Place of Residence: Home Review of Systems General: As per HPI Eyes: Unremarkable Respiratory: Shortness of Breath, SOB with Excertion, As per HPI Cardiovascular: Unremarkable Gastrointestinal: Unremarkable Genitourinary: Unremarkable Musculoskeletal: Unremarkable Integumentary: Unremarkable Neurological: Unremarkable Lymphatics: Unremarkable Physical Examination - Physical Exam General: Alert, Cooperative HEENT: Atraumatic Neck: Supple Respiratory: Expiratory wheezes Cardiovascular: Normal pulses, Regular rate/rhythm Gastrointestinal: Normal bowel sounds, No tenderness, No masses, No rebound, No guarding Musculoskeletal: No tenderness, No warmth Integumentary: No tenderness/swelling Neurological: Normal strength at 5/5 x4 extr, Normal affect - Studies Laboratory Data (last 24 hrs) 07/06/20 08:19: PT 11.2, INR 0.97 07/06/20 08:19: WBC 9.90, Hgb 12.8 L, Hct 37.3 L, Plt Count 171 07/06/20 08:19: Sodium 143, Potassium 3.7, BUN 18, Creatinine 0.64, Glucose 85, Magnesium 2.3, Total Bilirubin 0.3, AST 16, ALT 22, Alkaline Phosphatase 59 Assessment and Plan - Plan Impression: Dyspnea secondary to COPD exacerbation Plan: Dyspnea secondary to COPD exacerbation: Patient will be made for further evaluation and treatment. We will start IV steroid treatment including COPD treatment with nebulizers. We will monitor the patient closely. Patient uses home oxygen. This will need to be continued at discharge. We will set up and arrange for home health to teach on COPD education. Will monitor overnight. Patient on DVT prophylaxis. Will provide medication for pain, nausea, fever. If stable and well we will plan for discharge as early as tomorrow. Discharge Plan: Home Plan to discharge in: 24 Hours - Advance Directives Does patient have a Living Will: Yes Does patient have a Durable POA for Healthcare: Yes - Code Status/Comfort Care Code Status Assessed: Yes (he is full code) Time Spent Managing Pts Care (In Minutes): 55
--- NOTE | 2020-07-06 10:57 | P.PN ---
Subjective Date of Service: 07/06/20 Physical Examination - Studies Laboratory Data (last 24 hrs) 07/06/20 08:19: PT 11.2, INR 0.97 07/06/20 08:19: WBC 9.90, Hgb 12.8 L, Hct 37.3 L, Plt Count 171 07/06/20 08:19: Sodium 143, Potassium 3.7, BUN 18, Creatinine 0.64, Glucose 85, Magnesium 2.3, Total Bilirubin 0.3, AST 16, ALT 22, Alkaline Phosphatase 59 Assessment & Plan Physician Review Additional Text: Impression: Dyspnea secondary to COPD exacerbation Plan: Dyspnea secondary to COPD exacerbation: Patient will be made for further evaluation and treatment. We will start IV steroid treatment including COPD treatment with nebulizers. We will monitor the patient closely. Patient uses home oxygen. This will need to be continued at discharge. We will set up and arrange for home health to teach on COPD education. Will monitor overnight. Patient on DVT prophylaxis. Will provide medication for pain, nausea, fever. If stable and well we will plan for discharge as early as tomorrow.
[2020-07-06 12:22] VITALS: BMI 19.0
[2020-07-06] MEDS ORDERED: ACETAMINOPHEN 500 MG TAB PO PRN (12:28)
[2020-07-06] MEDS ORDERED: ONDANSETRON 4 MG/2 ML VIAL IV PRN (12:28)
[2020-07-06] MEDS ORDERED: ALBUTEROL 2.5 MG/3 ML NEB SOL NEB PRN ×2 (12:28→15:00)
[2020-07-06] MEDS ORDERED: TRAMADOL HCL 50 MG TAB PO PRN (12:28)
[2020-07-06] MEDS ORDERED: IPRATROPIUM BROM 0.5MG/2.5ML NEB PRN ×2 (12:28→15:00)
[2020-07-06] MEDS: METHYLPREDNISOLONE 125 MG INJ IV SCH ×2 (14:00→23:25)
[2020-07-06] MEDS ORDERED: PNEUMOCOCCAL VACCINE 0.5 ML IMVAC ONE ×2 (14:00→14:19)
[2020-07-06] MEDS ORDERED: METHYLPREDNISOLONE 40 MG INJ ONE (14:18)
[2020-07-06] MEDS ORDERED: CODEINE 30MG/APAP 300MG TAB ONE (15:00)
[2020-07-06] MEDS: CODEINE 30MG/APAP 300MG TAB PO PRN (15:25)
--- NOTE | 2020-07-06 19:35 | P.HP ---
Certification for Inpatient Patient admitted to: Observation With expected LOS: <2 Midnights Patient will require the following post-hospital care: Home Health Services (Social service consulted) Practitioner: I am a practitioner with admitting privileges, knowledge of navarro saenz current condition, hospital course, and medical plan of care. Services: Services provided to patient in accordance with Admission requirements found in Title 42 Section 412.3 of the Code of Federal Regulations Patient History Date of Service: 07/07/20 Reason for admission: SOB History of Present Illness: Patient is a 75 year old male with a PMHx significant for COPD , Laryngeal Cancer, PAD, Essential tremor who presents with c\o of shortness of breath that has been ongoing for the past 2 days. Patient is on O2 therapy- 2 L\min prn at home. Patient reported associated s\s of cough, congestion, weakness and fatigue. Patient denies other s\s. Symptoms are aggravated by exertion and relieved by nothing. Patient reported that his home medications have not been helpful and his O2 sat was 90% on 2.5 L\min of O2 therapy. Patient decided to present to the hospital due to worsening symptoms. Of noted, patient reports of recent stent placed on the right leg 6 weeks ago. Patient has a G-tube due to dysphagia secondary to Laryngeal cancer. Allergies cephalexin [From Keflex] Allergy (Intermediate, Verified 06/03/20 11:58) Unknown Sulfa (Sulfonamide Antibiotics) Allergy (Verified 06/03/20 11:58) unknown Home medications list reviewed: Yes Home Medications: Aspirin 81 mg PO DAILY 04/20/20 Clopidogrel Bisulfate [Plavix*] 75 mg PO DAILY 04/20/20 Tamsulosin [Flomax*] 0.4 mg PO BEDTIME 06/03/20 predniSONE [Deltasone*] 10 mg PO DAILY 06/03/20 Albuterol Inhaler [Ventolin Inhaler*] 2 puff IH TID PRN #1 06/26/20 Fluticasone [Flonase 50MCG Nasal [place]*] 1 sprays ASHLIE BID #1 btl 06/26/20 Montelukast [Singulair*] 10 mg PO BEDTIME #30 tab 06/26/20 Famotidine 10 mg PO BEDTIME 07/07/20 predniSONE [Deltasone] 20 mg PO SEECOM #21 tab 07/07/20 - Past Medical/Surgical History Has patient received pneumonia vaccine in the past: No Diabetic: No -: COPD -: Laryngeal cancer -: Essential tremor -: Peripheral arterial disease -: Chronic Diarrhea -: Tobacco abuse -: History of meningitis, June 2016 -: pneumonia -: Erysipelas -: Appendectomy -: Right leg surgery -: Peripheral arterial disease with stent -: Eye surgery cataract sx on both eyes Psychosocial/ Personal History: The patient is . He has 1 child. 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 - Family History Father -: Lung disease Notes: COPD Mother -: Heart disease, Lung disease - Social History Smoking Status: Current every day smoker Counseled patient to stop smoking for: more than 10 minutes Smoking therapy provided: Yes Patient receptive to therapy: Yes Alcohol use: Yes CD- Drugs: No Caffeine use: Yes Place of Residence: Home Review of Systems General: Weakness Eyes: Unremarkable ENT: Unremarkable Respiratory: Cough, Shortness of Breath, SOB with Excertion Cardiovascular: Unremarkable Gastrointestinal: Unremarkable Genitourinary: Unremarkable Musculoskeletal: Leg Pain Integumentary: Unremarkable Neurological: Weakness Physical Examination - Vital Signs Temperature: 98.9 F Blood Pressure: 105/53 Pulse: 76 Respirations: 12 Pulse Ox (%): 96 - Physical Exam General: Alert, Oriented x3, Cooperative HEENT: Atraumatic, Normocephalic, PERRLA, EOMI Neck: Supple, 2+ carotid pulse no bruit, JVD not distended Respiratory: Diminished, Expiratory wheezes, Inspiratory wheezes Cardiovascular: No edema, Normal pulses, Regular rate/rhythm Capillary refill: <2 Seconds Gastrointestinal: Normal bowel sounds, Non-distended Musculoskeletal: No clubbing, No swelling Integumentary: No rashes, No breakdown, No significant lesion, No tenderness/swelling Neurological: Normal speech, Normal affect Lymphatics: No axilla or inguinal lymphadenopathy External genitalia: No edema Rectal: Deferred - Studies Laboratory Data (last 24 hrs) 07/06/20 08:19: PT 11.2, INR 0.97 07/06/20 08:19: WBC 9.90, Hgb 12.8 L, Hct 37.3 L, Plt Count 171 07/06/20 08:19: Sodium 143, Potassium 3.7, BUN 18, Creatinine 0.64, Glucose 85, Magnesium 2.3, Total Bilirubin 0.3, AST 16, ALT 22, Alkaline Phosphatase 59 Microbiology Data (last 24 hrs): 07/06/20 08:48 Sputum Sputum Gram Stain - Final Assessment and Plan - Plan --Acute on chronic COPD exacerbation. Patient placed on steroids, neb TX with Duoneb and on O2 therapy prn. Titrate to keep O2 sat >93%. instructional services specialist consulted for help with COPD management O/P. --Hx of Laryngeal cancer. Patient follows up with an O\P ENT and Oncologist. Patient scheduled for a throat biopsy in July 2020 out of concern for resurgence of cancer. Continue supportive care. --RLE Chronic pain\PVD. S/P stent placement on the Right leg 6 weeks ago. Continue Aspirin and Plavix. We will manage pain with current pain medication regimen --Nicotine dependence. Patient counseled on tobacco cessation and placed on nicotine patch --Dysphagia. Patient has a peg-tube. Rn Admission consulted to restart tube feeding. Continue supportive care --BPH. Continue flomax --Hx of Essential Tremors. Stable. Continue supportive care --GERD. Continue home medications --DVT prophylaxis with Lovenox SubQ Discharge Plan: Home Plan to discharge in: 48 Hours - Advance Directives Does patient have a Living Will: Yes Does patient have a Durable POA for Healthcare: Yes - Code Status/Comfort Care Code Status Assessed: Yes Code Status: Full Code Critical Care: No
[2020-07-06] MEDS: FLUTICASONE 50MCG NASAL SPRAY NAS SCH (21:00)
[2020-07-06] MEDS: ARFORMOTEROL TARTRATE 15 MCG/2 ML VIAL.NEB NEB SCH (23:40)
[2020-07-07] MEDS: CODEINE 30MG/APAP 300MG TAB PO PRN (05:00)
[2020-07-07 06:12] LABS: BUN Blood Urea Nitrogen 21 mg/dL (7-18); Bicarbonate 27 mmol/L (21-32); Glucose Level 104 mg/dL (74-106); Magnesium 2.2 mg/dL (1.8-2.4); Sodium Level 143 mmol/L (136-145)
[2020-07-07] MEDS: ARFORMOTEROL TARTRATE 15 MCG/2 ML VIAL.NEB NEB SCH (08:21)
--- NOTE | 2020-07-07 08:25 | P.DS ---
Admission Date: 07/06/20 Discharge Date: 07/07/20 Primary Care Provider: Dr. Toussaint; Pulmonary-Dr. Ventura Disposition: ROUTINE DISCHARGE Discharge Condition: GOOD Reason for Admission: SOB Consultations: none Procedures: COVID: Negative CXR: FINDINGS: Portable technique limits examination quality. The lungs are emphysematous but grossly clear. The heart is normal in size. No displaced fractures. IMPRESSION: Mild diffuse COPD. Medical problem List: Dyspnea secondary to COPD exacerbation with history of COPD on chronic steroid and home oxygen Laryngeal cancer Tobacco abuse Left submandibular nodule Seasonal chronic allergies Peripheral vascular disease BPH Anxiety Brief History of Present Illness: 75-year-old male with history of laryngeal cancer and COPD. Patient came to the ER with increasing shortness of breath. He reports mild cough, congestion. He reports periods of shortness of breath and congestion. This increases his anxiety and shortness of breath gets worse. He is on chronic oxygen and steroids. In the ER patient was evaluated. Chest x-ray shows mild COPD. CBC unremarkable. BMP unremarkable. Troponin unremarkable. Patient stable at this time. Patient admitted for observation Patient has PEG tube for nutritional purposes. Patient able to take clear liquids. Patient still smokes. Hospital Course: Patient presented with shortness of breath. Patient with underlying COPD on chronic oxygen and steroid. Patient presented with dyspnea secondary to COPD exacerbation. Chest x-ray unremarkable. COVID-19 test negative. Patient was given IV steroids with improvement. She reports episodes of shortness of breath with increased anxiety. Patient takes medication for anxiety. He reports some nasal congestion as well. Case discussed with his jumpbasting lining baster. Patient recently treated with Levaquin. Sputum culture obtained on June 25. This was unremarkable. Repeat culture obtained. No evidence of infection at this time. Patient would benefit with home health and physical therapy with education on COPD. We will help arrange for this. We will also make arrangements for a suction device at home to help with his increased congestion. Patient appears to be at his baseline level at discharge. Pulmonology recommends continued COPD treatment. At discharge patient will continue with prednisone 20 mg 1 pill twice daily for 7 days then return back to his baseline of 20 mg daily. Patient will also continue with his other medications Stiolto 2 puffs daily and albuterol 1 unit dose 3 times a day as needed for shortness of breath. Patient will be given Brovana at discharge but this is too expensive. This can be arranged through pulmonology as an outpatient. For now patient will be getting samples of Stiolto from pulmonology. Patient will continue with oxygen to maintain sats above 93%. Currently on 2 to 3 L per nasal cannula. Patient may need to use his oxygen more consistently at home. Patient reports using this only as needed. Recommend follow-up with pulmonology within 1 week. Pulmonology will follow up on sputum culture. Education on COPD provided. Patient also with history of laryngeal cancer with prior radiation and Botox. P atient sees ENT. Patient has a left submandibular nodule. Patient is planning to follow-up with ENT to further monitor and address. Patient reports that he is to have an evaluation July 17. Patient with seasonal chronic allergies. Patient with mild congestion. At discharge patient will continue with Flonase 1 spray per nostril twice daily and Singulair 10 mg at bedtime. Recommend follow-up with pulmonology and ENT to further monitor and address. Patient with tobacco abuse. Tobacco cessation addressed in detail. Patient would benefit with nicotine patch to help with cessation. This can be further addressed by ENT and pulmonology. Patient with peripheral vascular disease. At discharge he will continue with aspirin 81 mg daily and Plavix 25 mg daily. Patient with BPH. At discharge patient will continue with Flomax 0.4 mg daily. Vital Signs/Physical Exam: Temp Pulse Resp BP Pulse Ox 98.3 F 76 18 108/54 L 98 07/07/20 04:00 07/07/20 04:00 07/07/20 06:00 07/07/20 04:00 07/07/20 06:00 General: Alert, In no apparent distress, Oriented x3, Cooperative, Other (Increase anxiety) HEENT: Atraumatic Neck: Supple Respiratory: Clear to auscultation bilaterally, Normal air movement Cardiovascular: Normal pulses, Regular rate/rhythm Gastrointestinal: Normal bowel sounds, Soft and benign, Non-distended, No masses, No rebound, No guarding Musculoskeletal: No tenderness, No warmth Integumentary: No tenderness/swelling Neurological: Normal speech, Normal strength at 5/5 x4 extr, Normal tone, Normal affect Laboratory Data at Discharge: WBC 9.90 K/uL (4.3-10.9) 07/06/20 08:19 Hgb 12.8 g/dL (13.6-17.9) L 07/06/20 08:19 Hct 37.3 % (39.6-49.0) L 07/06/20 08:19 Plt Count 171 K/uL (152-406) 07/06/20 08:19 PT 11.2 SECONDS (9.5-12.5) 07/06/20 08:19 INR 0.97 07/06/20 08:19 Sodium 143 mmol/L (136-145) 07/07/20 05:31 Potassium 4.0 mmol/L (3.5-5.1) 07/07/20 05:31 BUN 21 mg/dL (7-18) H 07/07/20 05:31 Creatinine 0.58 mg/dL (0.55-1.3) 07/07/20 05:31 Glucose 104 mg/dL (74-106) 07/07/20 05:31 Magnesium 2.2 mg/dL (1.8-2.4) 07/07/20 05:31 Total Bilirubin 0.3 mg/dL (0.2-1.0) 07/06/20 08:19 AST 16 U/L (15-37) 07/06/20 08:19 ALT 22 U/L (12-78) 07/06/20 08:19 Alkaline Phosphatase 59 U/L (45-117) 07/06/20 08:19 Home Medications: Aspirin 81 mg PO DAILY 04/20/20 Clopidogrel Bisulfate [Plavix*] 75 mg PO DAILY 04/20/20 Tamsulosin [Flomax*] 0.4 mg PO BEDTIME 06/03/20 predniSONE [Deltasone*] 10 mg PO DAILY 06/03/20 Albuterol Inhaler [Ventolin Inhaler*] 2 puff IH TID PRN #1 06/26/20 Fluticasone [Flonase 50MCG Nasal [place]*] 1 sprays ASHLIE BID #1 btl 06/26/20 Montelukast [Singulair*] 10 mg PO BEDTIME #30 tab 06/26/20 Famotidine 10 mg PO BEDTIME 07/07/20 predniSONE [Deltasone] 20 mg PO SEECOM #21 tab 07/07/20 New Medications: predniSONE [Deltasone] 20 mg PO SEECOM #21 tab Physician Discharge Instructions: Patient presented with shortness of breath. Patient with underlying COPD on chronic oxygen and steroid. Patient presented with dyspnea secondary to COPD exacerbation. Chest x-ray unremarkable. COVID-19 test negative. Patient was g iven IV steroids with improvement. She reports episodes of shortness of breath with increased anxiety. Patient takes medication for anxiety. He reports some nasal congestion as well. Case discussed with his jumpbasting lining baster. Patient recently treated with Levaquin. Sputum culture obtained on June 25. This was unremarkable. Repeat culture obtained. No evidence of infection at this time. Patient would benefit with home health and physical therapy with education on COPD. We will help arrange for this. We will also make arrangements for a suction device at home to help with his increased congestion. Patient appears to be at his baseline level at discharge. Pulmonology recommends continued COPD treatment. At discharge patient will continue with prednisone 20 mg 1 pill twice daily for 7 days then return back to his baseline of 20 mg daily. Patient will also continue with his other medications Stiolto 2 puffs daily and albuterol 1 unit dose 3 times a day as needed for shortness of breath. Patient will be given Brovana at discharge but this is too expensive. This can be arranged through pulmonology as an outpatient. For now patient will be getting samples of Stiolto from pulmonology. Patient will continue with oxygen to maintain sats above 93%. Currently on 2 to 3 L per nasal cannula. Patient may need to use his oxygen more consistently at home. Patient reports using this only as needed. Recommend follow-up with pulmonology within 1 week. Pulmonology will follow up on sputum culture. Education on COPD provided. Patient also with history of laryngeal cancer with prior radiation and Botox. Patient sees ENT. Patient has a left submandibular nodule. Patient is planning to follow-up with ENT to further monitor and address. Patient reports that he is to have an evaluation July 17. Patient with seasonal chronic allergies. Patient with mild congestion. At discharge patient will continue with Flonase 1 spray per nostril twice daily and Singulair 10 mg at bedtime. Recommend follow-up with pulmonology and ENT to further monitor and address. Patient with tobacco abuse. Tobacco cessation addressed in detail. Patient would benefit with nicotine patch to help with cessation. This can be further addressed by ENT and pulmonology. Patient with peripheral vascular disease. At discharge he will continue with aspirin 81 mg daily and Plavix 25 mg daily. Patient with BPH. At discharge patient will continue with Flomax 0.4 mg daily. Diet: AHA Activity: Ad vania Followup: Dereck Toussaint MD [Primary Care Provider] - Time spent managing pt's care (in minutes): 55
[2020-07-07] MEDS ORDERED: ENOXAPARIN 40 MG/0.4 ML SQ SCH (09:00)
[2020-07-07] MEDS: FLUTICASONE 50MCG NASAL SPRAY NAS SCH (09:00)
[2020-07-07] MEDS ORDERED: ASPIRIN 81 MG CHEWABLE TABLET PO SCH (09:00)
[2020-07-07] MEDS ORDERED: FLUTICASONE 50MCG NASAL SPRAY NAS SCH (09:00)
[2020-07-07] MEDS ORDERED: CLOPIDOGREL 75 MG TABLET PO SCH (09:00)
[2020-07-07] MEDS: METHYLPREDNISOLONE 125 MG INJ IV SCH (10:17)
[2020-07-07 10:46] VITALS: BP 105/53; TEMP 98.9
[2020-07-07 10:58] VITALS: O2SAT 96
--- NOTE | 2020-07-07 11:17 | EKG ---
Test Date: 2020-07-06 Test Time: 08:30:49 Tuft Machine Operator: DAWSON MEASUREMENT RESULTS: Intervals: Rate: 67 MT: 160 QRSD: 72 QT: 410 QTc: 433 [place]: P: 84 MT: 160 QRS: 77 T: 83 INTERPRETIVE STATEMENTS: Normal sinus rhythm ST elevation, consider early repolarization, pericarditis, or injury Abnormal ECG Compared to ECG 06/25/2020 11:41:07 ST (T wave) deviation now present Electronically Signed On 07-07-20 11:13:42 CDT by Flaco Guallpa
[2020-07-07] MEDS ORDERED: TAMSULOSIN 0.4 MG SR CAP PO SCH (21:00)
[2020-07-07] MEDS ORDERED: FAMOTIDINE 20 MG TAB PO SCH (21:00)
[2020-07-07] MEDS ORDERED: MONTELUKAST 10 MG TAB PO SCH (21:00)
== END 2020-07-07 11:00 | disposition home health service (06) ==
LOC: ER 07:35 → ERHOLD 10:26 → 2ND 20:36
PROVIDERS: ADMIT Family Medicine; ATTEND Family Medicine
DX: J44.1 Chronic obstructive pulmonary disease with (acute) exacerbation (principal); Z99.81 Dependence on supplemental oxygen; Z79.52 Long term (current) use of systemic steroids; C32.9 Malignant neoplasm of larynx, unspecified; I73.9 Peripheral vascular disease, unspecified; Z20.822 Contact with and (suspected) exposure to COVID-19; N40.0 Benign prostatic hyperplasia without lower urinary tract symptoms; F41.9 Anxiety disorder, unspecified; R22.0 Localized swelling, mass and lump, head; R94.31 Abnormal electrocardiogram [ECG] [EKG]; Z93.1 Gastrostomy status; J30.2 Other seasonal allergic rhinitis; F17.210 Nicotine dependence, cigarettes, uncomplicated
CPT/HCPCS: 96361; 93005; 87040 ×2; 87070; 85025; 80048 ×2; 36415; 83735 ×2; 87205; 85610; 80076; 83605; 87077; 87186; 81003; 84484; 83880; 0240U; 71045; 90471; 90732; 96375; 96374; 99285; J7605; J7030; J2930 ×3; J2920; G0378; J1650

== ENCOUNTER 2020-07-17 07:22 | Day surgery (SDC) | payer OTHER ==
[2020-07-17] MEDS ORDERED: Ringers Lactate 1,000 ML IV ONE (07:55)
[2020-07-17] MEDS ORDERED: ALBUTEROL 2.5 MG/3 ML NEB SOL ONE ×2 (08:04→09:17)
[2020-07-17] MEDS ORDERED: METHYLPREDNISOLONE 125 MG INJ ONE (08:09)
[2020-07-17] MEDS ORDERED: BOTU TOX TYPE A 100 UNIT/VIAL ID ONE (08:16)
[2020-07-17] MEDS ORDERED: FENTANYL CITR 100 MCG/2 ML ONE (08:20)
[2020-07-17] MEDS ORDERED: MIDAZOLAM HCL 2 MG/2 ML INJ ONE (08:20)
[2020-07-17] MEDS ORDERED: propofoL 200 MG/20 ML VIAL IV ONE (08:20)
[2020-07-17] MEDS ORDERED: ROCURONIUM 50 MG/5 ML VIAL IV ONE (08:20)
[2020-07-17] MEDS ORDERED: LIDOCAINE 2% MPF 5 ML VIAL ONE (08:20)
[2020-07-17] MEDS ORDERED: EPINEPHRINE/PF 1 MG/ML AMP ONE (08:27)
[2020-07-17] MEDS ORDERED: LIDOCAINE 1% W/EPI 1:100,000 MDV 20 ML VIAL ONE (08:27)
[2020-07-17] MEDS ORDERED: GLYCOPYRROLATE 0.2 MG/ML SYR ONE (09:04)
[2020-07-17] MEDS: MORPHINE 4 MG/ML SYR ONE ×2 (09:05→09:33)
[2020-07-17] MEDS ORDERED: NEOSTIGMINE 1 MG/ML -5 ML ONE (09:11)
[2020-07-17 09:45] VITALS: TEMP 97.8
[2020-07-17] MEDS ORDERED: ONDANSETRON 4 MG/2 ML VIAL ONE (09:45)
[2020-07-17 10:35] VITALS: BP 102/54; O2SAT 98
--- NOTE | 2020-07-23 10:00 | OP ---
Date of Procedure: 07/17/2020 Surgeon: Ester Mendiola MD Preoperative Diagnoses: Persistent dysphagia, history of hypopharyngeal carcinoma with poor healing noted during prior evaluation, continued tobacco use. Postoperative Diagnoses: Persistent dysphagia, history of hypopharyngeal carcinoma with poor healing noted during prior evaluation, continued tobacco use with high clinical concern for persistent versus residual disease in the left oropharynx. Procedure: Direct laryngoscopy with telescope and biopsy. Indication For Procedure: Mr. 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 He was also noted to have severe cricopharyngeal spasm and underwent concurrent injection of the cricopharyngeus with botulinum toxin. He subsequently was treated with concurrent chemotherapy and IMRT external beam radiation. He completed therapy in February 2020. The patient had worsening dysphagia and was brought to the operating room in May 2020 for bougie dilation of the esophagus and reinjection of the cricopharyngeus with botulinum toxin. Operative findings at that time indicated diffuse exudates in and throughout the oral and hypopharynx. There was no obvious tumor at that time and the findings were attributed to poor healing from his radiation and associated with continued tobacco use. Due to the findings and difficulty of thorough exam in the office setting, a planned return to the operating room in 6 weeks for re-evaluation was arranged. Description Of Procedure: The patient was brought to the operating room. He was placed under general anesthesia via oral endotracheal tube. Prior to the initiation of the laryngoscopy, an exam under anesthesia was performed. Deep palpation of the oral and base of tongue was unremarkable, but during palpation of the vallecular space and lateral pharyngeal wall, a palpable ulceration and induration consistent with later laryngoscopic findings was also noted. The upper gingiva was protected and a Jonny-Berci laryngoscope was used to perform a direct laryngoscopy. The vallecula appeared clear and unremarkable. The epiglottis appeared moderately edematous and worse compared to prior exam 6 weeks ago. There were no significant ulcerations or masses of the epiglottis. The false vocal folds likewise appeared edematous and erythematous, but no ulcerations or ac masses were noted. The true vocal folds appeared unremarkable. The piriform sinuses appeared unremarkable. The left oropharyngeal wall laterally and posteriorly demonstrated persistent ulceration with exudate and friability. The lateral fold was thickened and firm to palpation. The degree of ulceration forming laterally and under this tissue fold appeared deeper and progressive compared to prior exam, resulting in a high clinical suspicion for recurrent versus persistent disease in this location. This location is also consistent with the recent PET scan demonstrating hypermetabolic activity in this location. A cup forceps was used to collect specimens from the posterior pharyngeal wall and the left lateral pharyngeal wall. Gauze packing was applied for several minutes to apply pressure to the biopsy sites and control hemostasis. After removal of the packing, the area appeared hemostatic. The instrumentation was withdrawn and the patient was returned to care of Anesthesia for awakening and extubation in the operating room, which proceeded without difficulty. Disposition: I spoke with the patient and his regarding the findings and clinical suspicion for malignancy. We had a detailed discussion regarding options to include referral for surgical evaluation, re-consultation with the oncologist regarding systemic therapy, re-consultation with radiation oncologist regarding treatment options. The patient was encouraged to consider options while awaiting biopsy results. We also discussed the patient's ongoing moderate to severe dysphagia with partial dependence on feeding tube and difficulty with secretions. The patient has very thick mucus and has significant difficulty in swallowing. The secretions resulting in a choking episodes. His swallowing did improve to some degree following recent Botox injection, but I feel the patient would benefit from use of a home suction machine to help manually remove the secretions when he feels unable to tolerate these. The patient states that during his recent hospitalization for COPD exacerbation, the hospitalist was to arrange for a home suction machine, but he has not been contacted regarding further results. I discussed with the patient that I would be happy to resume outpatient management and we will contact the [employer] to help facilitate delivery of necessary medical equipment. MERT Voice ID: [id number] Report ID: [id number] KELVIN
== END 2020-07-17 11:20 | disposition home or self-care (01) ==
LOC: OR 07:22
PROVIDERS: ATTEND Otolaryngology
PROC: 0DJ08ZZ Inspection of Upper Intestinal Tract, Via Natural or Artificial Opening Endoscopic (ICD-10-PCS; 2020-07-17)
PROC: 0CBS8ZX Excision of Larynx, Via Natural or Artificial Opening Endoscopic, Diagnostic (ICD-10-PCS; principal; 2020-07-17 08:30)
DX: R13.12 Dysphagia, oropharyngeal phase (principal); C13.2 Malignant neoplasm of posterior wall of hypopharynx; J45.909 Unspecified asthma, uncomplicated; Z20.822 Contact with and (suspected) exposure to COVID-19
CPT/HCPCS: 88305; J0171; J0585; J2250; J2405; J2704; J2710; J2930; J3010; J7120; U0003

== ENCOUNTER 2020-08-01 18:12 | Inpatient (IN) | payer OTHER ==
--- OUTSIDE RECORDS SUMMARY | 2020-08-01 18:22 | XMS REPORT | Continuity of Care Document ---
:[address] [facility] t Address [address] [place] [address] Care Team Providers Name Role Phone PHYSICIAN Primary Care Physician Unavailable SYSTEM, NOT IN Attending Clinician Unavailable Mj Wyatt Attending Clinician Best Prince Attending Clinician Ishkevenq Attending Clinician Holley Calzada Attending Clinician Jefe [...] Essential Problem Active 2018-06-18 Me moria tremor 8- 11:05:32 l (disorder) 00:00: Shravan n Essential 00 tremor (disorder) Active 10/19/2016 Problem 06/18/2018 Data migrated from [employer] on 12/27/2016 . Originally documented as Essential tremor.Bud a migrated from [employer] on 11/02/2016 . Originally documented as Essential tremor.Bud a migrated from [employer] on 05/12/2016 . Originally documented as Essential tremor. [facility] HEADACHE Diagnosis Active 2016-07-04 M emoria 4 22:02:00 l HEADACHE 00:00: Shravan n 00 Active 06/21/2016 [facility] FOOT PAIN Diagnosis Active 2016-05-22 Memoria OR INJURY 3 20:01:00 l FOOT 00:00: Damien PAIN OR 00 INJURY Active 05/17/2016 [facility] WOUND Diagnosis Active 2016-05-30 Mem oria 1- 09:23:00 l WOUND 08:00: Damien 00 Active 03/13/2016 [facility] ACUTE Diagnosis Active 2015-07-21 Mem oria RESPIRATOR 5-04 11:54:00 l Y FAILURE, ACUTE 00:00: Danielle nn ACUTE RESPIRATOR 00 RESPIRA Y FAILURE, ACUTE RESPIRA Active 07/15/2015 [facility] SHORTNESS Diagnosis Active 2015-07-15 Memoria OF BREATH 5- 18:29:00 l 00:00: [place] SHORTNESS 00 OF BREATH Active 07/15/2015 [facility] PCP Diagnosis Active 2015-07-13 Mem oria SENT/WEAKN - 19:58:00 l ESS PCP 00:00: [place] SENT/WEAKN 00 ESS Active 07/13/2015 [facility] ACUTE COPD Diagnosis Active 2015-07-14 Memoria EXACERBATI - 08:45:00 l ON ACUTE 00:00: Damien COPD 00 EXACERBATI ON Active 6 [facility] COPD Diagnosis Active 2015-05-13 Mem oria 2- 22:05:00 l COPD 07:00: Damien 00 Active 05/04/2015 [facility] 305.1 - Diagnosis Active 2014-07-31 Me moria TOBACCO - 14:03:00 l USE DIS 305.1 - 00:01: Shravan n TOBACCO 00 USE DIS Active 07/29/2014 [facility] TOBACCO Condition Active 2014-07-23 Me moria ABUSE 07-25 07:58:30 l TOBACCO 00:00: [place] ABUSE 00 Active 07/25/2014 [facility] Tobacco Problem Active 2018-06-18 Xiang bethany dependence 07-25 11:05:32 l syndrome Tobacco 00:00: Danielle nn (disorder) dependence 00 syndrome (disorder) Active 07/25/2014 Problem 06/18/2018 Data migrated from [employer] on 09/17/14.Bud a migrated from [employer] on 08/12/14. [facility], [facility] LOSS OF Condition Active 2014-07-23 Sd moria WEIGHT 07-23 07:58:30 l LOSS OF 00:00: Damien WEIGHT 00 Active 07/23/2014 [facility] CAROTID Condition Active 2014-07-23 Sd moria BRUIT, 07-23 07:58:30 l RIGHT CAROTID 00:00: [place] BRUIT, 00 RIGHT Active 07/23/2014 [facility] Carotid Problem Active 2018-06-18 Xiang bethany bruit 07-23 11:05:32 l (finding) Carotid 00:00: Herm martha bruit 00 (finding) Active 07/23/2014 Problem 06/18/2018 Data migrated from [employer] on 09/17/14.Bud a migrated from [employer] on 08/12/14. [facility], [facility] Weight Problem Active 2018-06-18 Memor ia decreased 07-23 11:05:32 l (finding) Weight 00:00: Danielle nn decreased 00 (finding) Active 07/23/2014 Problem 06/18/2018 Data migrated from [employer] on 09/17/14.Bud a migrated from [employer] on 08/12/14. [facility], [facility] PNEUMONIA Diagnosis Active 2014-04-25 Memoria 04-25 11:22:00 l 00:00: [place] PNEUMONIA 00 Active 04/25/2014 [facility] COPD Diagnosis Active 2014-05-02 Mem oria EXACERBATI 04-25 16:47:00 l ON COPD 00:00: [place] EXACERBATI 00 ON Active 5 [facility] RASH Diagnosis Active 2013-032014-02-21 Mem oria 04-24 17:08:00 l RASH 00:00: Damien 00 Active 02/21/2014 [facility] CELLULITIS Diagnosis Active 2013-032014-03-05 Memoria FAILED 04-24 16:34:00 l OUTPATIENT 00:00: Shravan n THERAPY CELLULITIS 00 FAILED OUTPATIENT THERAPY Active 02/21/2014 [facility] HYPOTHYROI Condition Active 2014-07-23 Memoria DISM 11-26 07:58:30 l 00:00: Damien HYPOTHYROI 00 DISM Active 11/26/2013 [facility] HYPOGONADI Condition Active 2014-07-23 Memoria SM 11-26 07:58:30 l 00:00: [place] HYPOGONADI 00 SM Active 4 Condition 07/23/2014 [facility] PERIPHERAL Condition Active 2014-07-23 Memoria VASCULAR 11-26 07:58:30 l DISEASE 00:00: Damien PERIPHERAL 00 VASCULAR DISEASE Active 11/26/2013 [facility] OSTEOPOROS Condition Active 2014-07-23 Memoria IS 11-26 07:58:30 l 00:00: [place] OSTEOPOROS 00 IS Active 4 Condition 07/23/2014 [facility] COPD Condition Active 2014-07-23 Mem oria 11-26 07:58:30 l COPD 00:00: [place] 00 Active 11/26/2013 [facility] Chronic Problem Active 2018-06-18 Xiang bethany obstructiv 11-26 11:05:32 l e lung Chronic 00:00: [place] disease obstructiv 00 (disorder) e lung disease (disorder) Active 11/26/2013 Problem 06/18/2018 Data migrated from [employer] on 09/17/14.Bud a migrated from [employer] on 08/12/14.Bud a migrated from [employer] on 08/12/14. [facility], [facility], [facility] Hypogonadi Problem Active 2018-06-18 M emoria sm 11-26 11:05:32 l (disorder) 00:00: Shravan n Hypogonadi 00 sm (disorder) Active 11/26/2013 Problem 06/18/2018 Data migrated from [employer] on 09/17/14.Bud a migrated from [employer] on 08/12/14.Bud a migrated from [employer] on 08/12/14. [facility] Osteoporos Problem Active 2018-06-18 M emoria is 11-26 11:05:32 l (disorder) 00:00: Shravan n Osteoporos 00 is (disorder) Active 11/26/2013 Problem 06/18/2018 Data migrated from [employer] on 09/17/14.Bud a migrated from [employer] on 08/12/14.Bud a migrated from [employer] on 08/12/14. [facility] Peripheral Problem Active 2018-06-18 M emoria vascular 11-26 11:05:32 l disease 00:00: Damien (disorder) Peripheral 00 vascular disease (disorder) Active 11/26/2013 Problem 06/18/2018 Data migrated from [employer] on 09/17/14.Bud a migrated from [employer] on 08/12/14.Bud a migrated from [employer] on 08/12/14. [facility] DYSPNEA Diagnosis Active 2012-09-12 Sd moria 03-13 13:24:00 l DYSPNEA 08:00: [place] 00 Active 03/13/2012 [facility] CELLULITIS Diagnosis Active 2014-03-05 Memoria NOS 16:34:00 l [place] CELLULITIS NOS Active [facility] CHRONIC Diagnosis Active 2015-05-13 Me moria OBSTRUCTIV 22:05:00 l E PULMON CHRONIC Danielle nn DISEASE W OBSTRUCTIV ACU E PULMON DISEASE W ACU Active [facility] ACUTE Diagnosis Active 2015-07-21 Mem oria RESPIRATOR 11:54:00 l Y FAILURE, ACUTE Danielle nn UNSP W RESPIRATOR HYPOXI Y FAILURE, UNSP W HYPOXI Active [facility] Cellulitis Problem Resolve 2018-06-18 Memoria (disorder) d 11:05:32 l Damien Cellulitis (disorder) Resolved Problem 06/18/2018 [facility] History of Problem Resolve 2018-06-18 Memoria - d 11:05:32 l musculoske History Her ruiz letal of - disease musculoske (context-d letal ependent disease category) (context-d ependent category) Resolved Problem 06/18/2018 [facility] Hypothyroi Problem Resolve 2018-06-18 Memoria dism d 11:05:32 l (disorder) Shravan n Hypothyroi dism (disorder) Resolved Problem 06/18/2018 [facility] COPD Problem Resolve 2012-09-14 Xiang bethany d 21:37:11 l COPD Damien Resolved Problem 09/14/2012 [facility] Hypertensi Problem Active 2018-06-18 M emoria ve 11:05:32 l disorder, [place] systemic Hypertensi arterial ve (disorder) disorder, systemic arterial (disorder) Active Problem 06/18/2018 [facility] Peripheral Problem Active 2018-06-18 M emoria arterial 11:05:32 l occlusive [place] disease Peripheral (disorder) arterial occlusive disease (disorder) Active Problem 06/18/2018 [facility], [facility] Poor Problem Active 2018-06-18 Memor ia short-term 11:05:32 l memory Poor Damien (finding) short-term memory (finding) Active Problem 06/18/2018 [facility] Smoker Problem Active 2018-06-18 Memor ia (finding) 11:05:32 l Smoker Damien (finding) Active Problem 06/18/2018 [facility] Cellulitis Diagnosis Active 2017-02-18 Memoria of right 03:46:09 l lower limb Shravan n Cellulitis of right lower limb Active Diagnosis 02/18/2017 W Krist[facility] Infectious Disease RESPIRATOR Diagnosis Active 2012-09-12 Memoria Y ABNORM 13:24:00 l NEC Damien RESPIRATOR Y ABNORM NEC Active [facility] CHR AIRWAY Diagnosis Active 2014-05-02 Memoria OBSTRUCT 16:47:00 l NEC CHR [place] AIRWAY OBSTRUCT NEC Active [facility] Erysipelas Problem Resolve 2013-032018-06-18 2018-06-18 Memoria (disorder) d 04-21 11:05:32 11:05:32 l 00:00: Damien Erysipelas 00 (disorder) Resolved 02/18/2014 Problem 06/18/2018 Data migrated from [facility] on 09/26/14. [facility] History of Past Illness Condition Condition Condition Status Onset Resolution Last Treating Co mments Source Name Details Category Date Date Treatment Clinician Date RASH AND Condition Inactiv 2014-07-23 2014-07-23 Memoria OTHER e 03-14 07:58:30 07:58:30 l NONSPECIFI RASH AND 00:00: He rmann C SKIN OTHER 00 ERUPTION NONSPECIFI C SKIN ERUPTION Inactive 03/14/2014 Condition 5 [facility] ERYSIPELAS Condition Inactiv 2013-032014-07-23 2014-07-23 Memoria e 04-21 07:58:30 07:58:30 l 00:00: [place] ERYSIPELAS 00 Inactive 02/18/2014 Condition 5 [facility] SEBORRHEIC Condition Inactiv 2014-07-23 2014-07-23 Memoria KERATOSIS e 12-03 07:58:30 07:58:30 l 00:00: [place] SEBORRHEIC 00 KERATOSIS Inactive 12/03/2013 Condition 5 [facility] SUPERIOR Condition Inactiv 2014-07-23 2014-07-23 Memoria GLENOID e 11-27 07:58:30 07:58:30 l LABRUM SUPERIOR 00:00: Shravan n LESIONS GLENOID 00 (SLAP) LABRUM LESIONS (SLAP) Inactive 11/27/2013 Condition 5 [facility] ROTATOR Condition Inactiv 2014-07-23 2014-07-23 Memoria CUFF TEAR e 11-27 07:58:30 07:58:30 l ROTATOR 00:00: [place] CUFF TEAR 00 Inactive 11/27/2013 Condition 5 [facility] SHOULDER Condition Inactiv 2014-07-23 2014-07-23 Memoria PAIN, LEFT e 9-16 07:58:30 07:58:30 l SHOULDER 00:00: Shravan franks PAIN, LEFT 00 Inactive 11/26/2013 [facility] NEOPLASM, Condition Inactiv 2014-07-23 2014-07-23 Memoria SKIN, e 11-26 07:58:30 07:58:30 l UNCERTAIN 00:00: Damien BEHAVIOR NEOPLASM, 00 SKIN, UNCERTAIN BEHAVIOR Inactive 11/26/2013 [facility] Allergies, Adverse Reactions, Alerts Allergy Allergy Status Severity Reaction(s) Onset Inactive Treating Comm ents Source Name Type Date Date Clinician cephalex DA Active U 2019-03 [facility] [place] 00:00: [address] N[place] N[place].Jackeline.A. Active Info Not Xiang bethany Available 3-21 l 00:00: [place] 00 cephalex cephalex Active Memori a in<sup>2 in<sup>2 1-09 l , 3, , 3, 06:00: Damien 4</sup> 4</sup> 00 cephalex cephalex Active Memori a in<sup>1 in<sup>1 1-02 l , , 06:00: Damien 2</sup> 2</sup> 00 KEFLEX KEFLEX Active Memoria 1-02 l 00:00: [place] 00 sulfa sulfa Active Moderate Memoria drugs<arboleda drugs<arboleda l p>1</sup p>1</sup Shravan n > > Bactrim Bactrim Active Memoria l [place] nka nka Active Memoria l Damien sulfa [...] 1 CAPSULE BY MOUTH TWICE DAILY, Pharmacy: [facility] [address] [facility] primidone Yes See Memoria 50 mg oral 3-26 Instructio l tablet 18:35: ns, 4 tabs Danielle nn 00 twice a day, # 720 tab, 3 Refill(s), Pharmacy: [facility] [address] [facility] Megestrol Yes See Memoria Acetate 40 3-02 Instructio l MG/ML Oral 21:38: ns, # 600 He rmann Suspension 36 mL, SHAKE WELL AND TAKE 20 ML BY MOUTH EVERY DAY, Pharmacy: [facility] [address] [facility] rivastigmin No 1.5 mg = 1 Memoria e 1.5 mg 2-12 cap, PO, l oral 22:23: BID, # 60 [place] capsule 00 cap, 3 Refill(s), Pharmacy: [facility] [address] [facility] diazepam 2 Yes 2 mg = 1 Mem oria mg oral 1-31 tab, PO, l tablet 18:07: Daily, PRN Danielle nn 00 Tremor, X 30 day, # 30 tab, 3 Refill(s) clopidogrel 2016-03 Yes NELL 1 tab(s) M emoria 2-09 JIMY l 03:46: potassium 2016-03 Yes NELL 1 tab Memori a 2-09 JIMY l 03:46: prednisolon 2016-03 Yes NELL 5 mL Memor ia e - JIMY l 03:46: levofloxaci 2016-03 Yes NELL 1 tab(s) M emoria n 2-09 JIMY l 03:46: Furosemide 2016-03 Yes NELL 1 tab Memor ia 2-09 JIMY l 03:46: Enoxaparin No Notes: Memor ia 4-19 (Same as: l 14:00: Lovenox) Damien 00 Miralax No Notes: Memoria 4-18 Dissolve l 18:31: in 8 oz of water or juice. (Same as: Miralax) Dulcolax No Notes: Memoria Laxative 4-18 (Same As: l 18:16: Dulcolax, Bisco-Lax) metoprolol No Notes: Memor ia tartrate 4-18 (Same as: l 17:00: Lopressor) metoprolol Yes 50 mg = 1 Me moria tartrate 50 4-17 tab, PO, l mg oral 17:15: BID, # 60 Danielle nn tablet 00 tab, 0 Refill(s) Nystatin Yes 500,000 Memori a [id number] -17 unit = 5 l UNT/ML Oral 17:15: mL, Shravan n Suspension 00 S&SPIT, QID, X 7 day, # 140 mL, 0 Refill(s) amLODIPine Yes 10 mg = 1 Me moria 10 mg oral 4-17 tab, PO, l tablet 17:15: Daily, # [place] 00 30 tab, 0 Refill(s) metoprolol No Notes: Memor ia tartrate 4-16 (Same as: l 02:00: Lopressor) Levaquin No 500 mg, 1 Xiang bethany 4-15 tab, l 20:00: Route: PO, Drug form: TAB, [id number], Dosing Weight 71.682, kg, Start date: 06/25/16 [...] Memoria 4-15 (Same as: l 14:00: MaxEPA, [place] 3 fish oil ) Non-Formul stefania Drug [...] e 4-14 Tablet l 21:30: should not be chewed or crushed. (Same [...] 4-13 acetaminop l 02:19: hen = 4000 [place] 00 mg/day (4 gm/day). (Same as: Tylenol) Levofloxaci No Notes: Xiang bethany n 4-13 (Same l 02:00: as:Levaqui [place] 00 n) Levofloxaci No Notes: Xiang bethany n 4-13 (Same l 01:00: as:Levaqui Damien n) Hydralazine No Notes: Xiang bethany 4-12 (Same as: l 23:32: Apresoline [place] ) Push over 5 minutes sodium 2016- No 1,000 mL, Memori a chloride 12 Rate: 50 l 0.9% 1000 23:30: ml/hr, Shravan n ml INJ 00 Infuse 1,000 mL over: 20 hr, Route: IV, Dosing Weight 71.682 kg, Total Volume: 1,000, Start date: 06/22/16 18:30:00 CDT, Duration: 30 day, Stop date: 07/22/16 18:29:00 CDT Vancomycin No Notes: M emoria 4-12 MEDICATION l 15:00: WASTE [place] Product Size: 1000 mg Product Wasted: _0__ mg Hydralazine No 10 mg, 0.5 Memoria 4-12 mL, Route: l 10:35: IVP, Drug [place] 00 form: INJ, Q4H, Dosing Weight 71.682, kg, PRN Hypertensi on, Start date: 06/22/16 5:35:00 CDT, Duration: 30 day, Stop date: 07/22/16 5:34:00 CDT Dilaudid No Notes: Memoria 4-12 Same as l 10:34: Dilaudid Damien 00 Albuterol No Notes: Memori a 0.833 MG/ML -12 (Same as: l / 07:00: Duoneb) Damien Ipratropium 00 [place] 0.167 MG/ML Inhalant Solution Nystatin No 500,000 Memori a [id number] 4-12 unit, 5 l UNT/ML Oral 05:00: [...] ia 4-12 (Same as: l 04:00: Lovenox) [place] Albuterol No 2.49 mg, Xiang bethany 0.83 MG/ML 4-12 Route: l Inhalant 03:54: NEB, PRN, Herm martha Solution 00 Dosing Weight 71.682, kg, PRN Respirator y Protocol, Start date: 06/21/16 22:54:00 CDT, Duration: 30 day, Stop date: 07/21/16 22:53:00 CDT Albuterol No 3 mL, Memoria 0.833 MG/ML 12 Route: l / 03:54: NEB, [place] Ipratropium 00 Dosing [place] Weight 0.167 MG/ML 71.682, Inhalant kg, PRN, Solution PRN Respirator y Protocol, Start date: 06/21/16 22:54:00 CDT, Duration: 30 day, Stop date: 07/21/16 22:53:00 CDT Guaifenesin No Notes: Xiang bethany 4-12 (Same as: l 03:54: Robitussin [place] ) Sodium No 1,000 mL, Memori a Chloride 06-22 Rate: 125 l 0.154 03:51: ml/hr, [place] MEQ/ML 00 Infuse Injectable over: 8 Solution [...] day, Stop date: 07/21/16 22:50:00 CDT Acetaminoph 2017-0 No 100.4 F, M emoria en 4-12 Start l 03:51: date: [place] 06/21/16 22:51:00 CDT, Duration: 30 day, Stop date: 07/21/16 22:50:00 CDT Ondansetron 2016-0 No Notes: Xiang bethany 4-12 (Same as: l 03:51: Zofran) MEDICATION WASTE Product Size: 4 mg Product Wasted: ___ mg Acetaminoph No 1 tab, Xiang bethany en 325 MG / 4-12 Route: PO, l Hydrocodone 03:51: Drug Form: [place] Bitartrate 00 TAB, 5 MG Oral Dosing Tablet Weight 71.682, kg, Q4H, PRN Pain Score 4-6, Start date: 06/21/16 22:51:00 CDT, Duration: 30 day, Stop date: 07/21/16 22:50:00 CDT Morphine 2017- No 2 mg, 1 Memori a 4-12 mL, Route: l 03:51: IVP, Drug form: SOLN, Q4H, Dosing Weight 71.682, kg, PRN Pain Score 7-10, Start date: 06/21/16 22:51:00 CDT, Duration: 30 day, Stop date: 07/21/16 22:50:00 CDT vancomycin 2017-0 No Notes: M emoria + sodium 4-12 MEDICATION l chloride 03:00: WASTE Herm martha 0.9% 500 mL 00 Product INJ (for IV Size: set) 500 mL 1750 mg Product Wasted: __0_ mg Furosemide 2017-0 Yes PO, 0 Memori a 20 MG Oral 4-12 Refill(s) l Tablet 02:26: [place] 00 pantoprazol 2017- Yes 40 mg = 1 M emoria e 40 mg 4-12 tab, PO, l oral 02:22: Daily, 0 Damien enteric 00 Refill(s) coated tablet Symbicort Yes 2 puff, Memor ia 160/4.5 06-22 INHALATION l inhalation 02:21: , BID, 0 Her ruiz aerosol 00 Refill(s) with adapter Vancomycin No 1,000 mg, Me moria 06-22 Route: l 01:24: IVPB, Drug Damien 00 form: INJ, ONCE, Dosing Weight 69.091, kg, [...] (Same as: l :12: Duoneb) Ipratropium 00 [place] 0.167 MG/ML Inhalant Solution [DuoNeb] Acetaminoph No Notes: Do M emoria en 06-22 not exceed l 00:42: 4 gm/day. Damien (Same as: Tylenol) Sodium No 25 mL, Memoria Chloride 06-21 Route: IV, l 0.9% IV 23:40: Start Damien date: 06/21/16 18:40:00 CDT, Duration: 30 day, Stop date: 07/21/16 18:39:00 CDT, PRN Line Flush Hydralazine No Notes: Xiang bethany -11 (Same as: l 23:36: Apresoline ) Push over 5 minutes Morphine No Notes: Memoria 4-11 (Same l 23:36: as:MORPhin Damien e Sulfate) Morphine No Notes: Memoria 4-11 (Same l 20:38: as:MORPhin [place] e Sulfate) Diphenhydra No Notes: Xiang bethany mine -11 (Same as: l 20:38: Benadryl) Metoclopram No Notes: Xiang bethany trevor 11 (Same as: l 20:38: Reglan) Sodium No 1,000 mL, Memori a Chloride 11 1000 l 0.154 20:38: ml/hr, Damien MEQ/ML 00 Infuse Injectable Over: 1 Solution hr, Route: IV, 1,000, Drug form: INJ, ONCE, Priority: STAT, Dosing Weight 69.091 kg, Start date: 06/21/16 15:38:00 CDT, Duration: 1 doses or times, Stop date: 06/21/16 15:38:00 CDT Saline No Notes: Memoria Flush 0.9% 06-21 (Same as: l 19:29: BD Posiflush) Doxycycline No Notes: Xiang bethany 08 (Same as: l 21:00: Vibramycin ) No milk/antac ids/iron. Ciprofloxac No Notes: May Memoria in 3-08 interfere l 21:00: w/enteral feedings - Take 1 hr before or 2 hrs after antacids, dairy pdt & minerals. On empty stomach. minocycline Yes 100 mg = 1 Memoria 100 mg oral 3-08 cap, PO, l capsule 20:20: Q12H, X 30 Herm day, # 60 cap, 0 Refill(s), Pharmacy: [facility] [id number] ciprofloxac Yes 500 mg = 1 Memoria in 500 mg 3-08 tab, PO, l oral tablet 20:20: Q12H, X 30 day, # 60 tab, 0 Refill(s), Pharmacy: [facility] [id number] Nicotine No Notes: Memoria 3-08 (Same as: l 15:00: Habitrol) "Remove old patch before applicatio n of new patch" WASTE: F/P - P Waste Black; E - P Waste Black Protonix No Notes: Memoria 3-08 Tablet l 13:30: should not be chewed or crushed. (Same as: Protonix) vancomycin No 2001 mg: Me moria + sodium 3-08 infuse l chloride 12:30: over 2.5 Danielle nn 0.9% INJ 00 hours 250 mL MEDICATION WASTE Product Size: 1000 mg Product Wasted: _0__ mg Cleocin HCl No 600 mg, 50 Memoria 3-08 mL, Route: l 03:30: IVPB, Drug Damien 00 form: INJ, ABXQ8H, Start date: 05/17/16 21:30:00 CHOPPER OPERATOR, Duration: 30 day, Stop date: 06/16/16 [...] 18 Memoria 3-08 microgram, l 01:56: INHALATION [place] 00 , Daily, # 30 ea, 0 Refill(s) vitamin E Yes 400 Memoria 400 intl 08 IntlUnit = l units oral 01:56: 1 cap, PO, H ermann capsule 00 Daily, # 100 cap, 0 Refill(s) predniSONE Yes See Memoria 50 mg oral 3-08 Instructio l tablet 01:56: ns, PRN [place] 00 Allergies, 1 tab PO PRN asthma [...] No 2001 mg: Me moria + sodium 05-17 infuse l chloride 23:30: over 2.5 Danielle nn 0.9% 500 mL 00 hours INJ (for IV set) 500 mL MEDICATION WASTE Product Size: 1000 mg Product Wasted: _250__ mg Primidone No Notes: Memori a - (Same as: l 23:00: Mysoline) Enoxaparin No Notes: Memor ia 05-17 (Same as: l 23:00: Lovenox) metoprolol No Notes: Memor ia tartrate 05-17 (Same as: l 22:42: Lopressor) Ondansetron No Notes: Xiang bethany 05-17 (Same as: l 22:41: Zofran) MEDICATION WASTE Product Size: 4 mg Product Wasted: _0__ mg Simethicone No Notes: Xiang bethany -07 (Same as: l 22:41: Mylicon) Bisacodyl No Notes: Memori a - (Same As: l 22:41: Dulcolax, Bisco-Lax) Acetaminoph No Notes: Do M emoria en 05-17 not exceed l 22:41: 4 gm/day. (Same as: Tylenol) Tessalon No Notes: Memoria Perles - (Same As: l 22:41: Tessalon Perles) "Do Not Crush" Loratadine No Notes: 1 Mem oria 3-07 hr before l 22:41: meals (Same as: Claritin) Non-formul stefania item Hydralazine No Notes: Xiang bethany 3-07 (Same as: l 22:41: Apresoline ) Push over 5 minutes Acetaminoph No Notes: Xiang bethany en 325 MG / 3-07 (Same as: l Hydrocodone 22:41: [place] Danielle nn Bitartrate 00 325/5) Do 5 MG Oral not exceed Tablet 4gm/day of [[place] acetaminop 5/325] hen. Acetaminoph No Notes: Do M emoria en 325 MG / 3-07 not exceed l Hydrocodone 22:41: 4gm/day of Damien Bitartrate 00 acetaminop 10 MG Oral hen. Tablet (Same as: [[place] 10/325] 325/10) Lorazepam No Notes: Memori a 3-07 (Same as: l 22:41: Ativan) Morphine No 1 mg, 0.5 Xiang bethany 3-07 mL, Route: l 22:41: IVP, Drug form: SOLN, Q4H, Dosing Weight 74.545, kg, PRN Pain Score 7-10, if unable to take po, Start date: 05/17/16 16:41:00 CHOPPER OPERATOR, Duration: 30 day, Stop date: 06/16/16 16:40:00 CDT Albuterol No Notes: Memori a 0.833 MG/ML - (Same as: l 22:41: Duoneb) Ipratropium 00 [place] 0.167 MG/ML Inhalant Solution Vancomycin No 1,118.175 Me moria 3-07 mg, Route: l 22:39: IVPB, ABXQ8H, Dosing Weight 74.545, kg, TIME CRITICAL MEDICATION , Priority: STAT, Start date: 05/17/16 16:39:00 CHOPPER OPERATOR, Duration: 30 day, Stop date: 06/16/16 8:39:00 CDT Clindamycin No 600 mg, Mem oria 3-07 Route: l 22:39: IVPB, Damien 00 ABXQ8H, Dosing Weight 74.545, kg, Priority: STAT, Start date: 05/17/16 16:39:00 CHOPPER OPERATOR, Duration: 30 day, Stop date: 06/16/16 8:39:00 CDT Saline No Notes: Memoria Flush 0.9% 3-07 (Same as: l 22:39: BD [place] 00 Posiflush) Sodium No 1,000 mL, Memori a Chloride 05-17 Rate: 100 l 0.154 22:39: ml/hr, MEQ/ML Infuse Injectable over: 10 Solution hr, Route: IV, Dosing Weight 74.545 kg, Total Volume: 1,000, Start date: 05/17/16 16:39:00 CHOPPER OPERATOR, Duration: 30 day, Stop date: 06/16/16 16:38:00 CDT Acetaminoph No 100.4 F, M emoria en 05-17 Start l 22:39: date: [place] 05/17/16 16:39:00 CHOPPER OPERATOR, Duration: 30 day, Stop date: 06/16/16 16:38:00 CDT Clindamycin No 600 mg, 50 Memoria 3-07 mL, Route: l 18:31: IVPB, Drug form: INJ, ONCE, Dosing Weight 74.545, kg, Priority: STAT, Start date: 05/17/16 12:31:00 CHOPPER OPERATOR, Stop date: 05/17/16 12:31:00 CHOPPER OPERATOR Symbicort Yes 2 puff, Mem[facility] ia 160/4.5 [...] Refill(s) methylPREDN No Notes: Xiang bethany ISolone 08 (Same l SODium 02:00: as:Solu-ME Danielle nn SUCCinate 00 DROL, A-Methapre d) Albuterol No Notes: Memori a 0.833 MG/ML 07-17 (Same as: l / 19:00: Duoneb) [place] Ipratropium 00 [place] 0.167 MG/ML Inhalant Solution [DuoNeb] Acetylcyste No 200 mg, 1 M emoria ine 200 5-07 mL, Route: l MG/ML 19:00: NEB, Drug [place] Inhalant 00 Form: Solution SOLN, Dosing Weight 68.182, kg, RQ6H, Start date: 07/18/15 14:00:00 CDT, Duration: 30 day, Stop date: 08/17/15 8:00:00 CDT Symbicort No Notes: Memori a 160/4.5 07 (Same as: l inhalation 16:42: Symbicort) H ermann aerosol 00 WASTE: with Aerosol - adapter Return to Pharmacy Spiriva No Notes: Memoria 07 (Same As: l 16:42: Spiriva) [place] 00 remove No Notes: Memoria patch 07-17 WASTE: F/P l 02:00: - P Waste Damien 00 Black; E - P Waste Black Ipratropium No Notes: SEE Memoria [place] 0.2 5-05 RT l MG/ML 16:00: DOCUMENTAT Shravan n Inhalant 00 ION (Same Solution as:Atroven t) Levalbutero No Notes: SEE Memoria l 5-05 RT l 16:00: DOCUMENTAT [place]ien 00 ION (Same as:Xopenex ) Non-Formul stefania Nicotine No Notes: Memoria 5-05 (Same as: l 14:00: Habitrol) [place] 00 WASTE: F/P - P Waste Black; E - P Waste Black Ipratropium No Notes: SEE [facility]oria [place] 0.2 5-05 RT l MG/ML 12:00: DOCUMENTAT [...] 5-05 (Same as: l / 07:00: Duoneb) [place] Ipratropium 00 [place] 0.167 MG/ML Inhalant Solution Levalbutero No Notes: SEE Memoria l 5-05 RT l 07:00: DOCUMENTAT [place] 00 ION (Same as:Xopenex ) Non-Formul stefania [...] Notes: Memoria 5-05 (Same l 03:00: as:Levaqui [place] 00 n) Ativan No Notes: Memoria 5-05 (Same as: l 02:46: Ativan) [place] Albuterol No Notes: SEE Me moria 0.83 MG/ML 5-05 RT l Inhalant 02:13: DOCUMENTAT Her ruiz Solution 00 ION (Same as: Proventil) Enoxaparin No Notes: Memor ia 5-05 (Same as: l 02:00: Lovenox) [place] Albuterol No Notes: Memori a 0.833 MG/ML 5-05 (Same as: l :16: Duoneb) [place] Ipratropium 00 [place] 0.167 MG/ML Inhalant Solution Sodium No 25 mL, Memoria Chloride 5-04 Route: IV, l 0.9% IV 23:14: Start Damien 00 date: 07/15/15 18:14:00 CDT, Duration: 30 day, Stop date: 08/14/15 18:13:00 CDT, PRN Line Flush BD Normal No Notes: Memori a Saline 5-04 (Same as: l Flush 23:14: BD [place] Posiflush) Ipratropium No 500 Memori a 5-04 microgram, l 23:11: Route: [place] 00 NEB, ONCE, Dosing Weight 68.182, kg, Start date: 07/15/15 18:11:00 CDT, Stop date: 07/15/15 18:11:00 CDT Xopenex No Notes: Memoria 5-04 Same as: l 23:11: Xopenex Non-Formul stefania High Concentrat ed (0.5ml) SEE RT DOCUMENTAT ION Lorazepam No Notes: Memori a 5-04 (Same as: l 23:10: Ativan) [place] Sodium No 1,000 mL, Memori a Chloride 5-04 1,000 l 0.154 23:05: ml/hr, Damien MEQ/ML 00 Infuse Injectable Over: 1 Solution hr, Route: IV, 1,000, Drug form: INJ, ONCE, Priority: STAT, Dosing Weight 68.182 kg, Start date: 07/15/15 18:05:00 CDT, Duration: 1 doses or times, Stop date: 07/15/15 18:05:00 CDT Magnesium No Notes: Memori a Sulfate -04 WASTE: F/P l 23:05: - Sink; E Damien 00 - [facility] Albuterol No Notes: Memori a 0.833 MG/ML -04 (Same as: l / 23:05: Duoneb) [place] Ipratropium 00 [place] 0.167 MG/ML Inhalant Solution [DuoNeb] Brovana No Notes: SEE Xiang bethany 5-04 RT l 13:00: DOCUMENTAT [place] 00 ION Same as [facility] atorvastati No Notes: Xiang bethany n 5-04 (Same As: l 02:00: Lipitor) Plavix No Notes: Memoria 5-04 (Same As: l 02:00: Plavix) Levofloxaci Yes 750 mg = 1 Memoria n 750 MG 5-03 tab, PO, l Oral Tablet 20:01: Q24H, X 10 Damien [Levaquin] day, # 10 tab, 0 Refill(s) predniSONE Yes 40 mg = 2 Me moria 20 mg oral 5-03 tab, PO, l tablet 20:01: Daily, X 5 Danielle nn day, # 10 tab, 0 Refill(s) Brovana No Notes: SEE Xiang bethany 5-03 RT l 13:00: DOCUMENTAT [place] 00 ION Same as [facility] Protonix No Notes: Memoria 5-03 Tablet l 12:30: should not be chewed or crushed. (Same as: Protonix) Albuterol No Notes: Memori a 0.833 MG/ML 07-13 (Same as: l / 07:00: Duoneb) Ipratropium 00 [place] 0.167 MG/ML Inhalant Solution Solu-Medrol No Notes: Xiang bethany 5-03 (Same l 07:00: as:Solu-ME 00 DROL, A-Methapre d) Melatonin No Notes: Memori a 5-03 (Same as: l 05:40: Melatonin) Acetaminoph No Notes: Do M emoria en 325 MG / 5-03 not exceed l Hydrocodone 05:39: 4gm/day of Damien Bitartrate 00 acetaminop 10 MG Oral hen. Tablet (Same as: [[place] 10/325] 325/10) Hydralazine No Notes: Xiang bethany 5-03 (Same as: l 05:39: Apresoline ) Push over 5 minutes Acetaminoph No Notes: Do M emoria en 5-03 not exceed l 05:39: 4 gm/day. [place] 00 (Same as: Tylenol) Tessalon No Notes: Memoria Perles -03 (Same As: l 05:39: Tessalon Perles) "Do [...] ia 5-03 PO, Daily l 00:53: Dam[place] Albuterol No Notes: SEE Me moria 0.83 MG/ML -03 RT l Inhalant 00:53: DOCUMENTAT Her ruiz Solution 00 ION (Same as: Proventil) arformotero Yes 15 Memori a l 0.0075 5-03 microgram l MG/ML 00:53: = 2 mL, Damien Inhalant 00 NEB, BID Solution [Brovana] Saline No Notes: Memoria Flush 0.9% -03 (Same as: l 00:47: BD Dam[place] 00 Posiflush) Sodium No 1,000 mL, Memori a Chloride 07-13 Rate: 75 l 0.154 00:47: ml/hr, [place] MEQ/ML 00 Infuse Injectable over: 13.3 Solution hr, Route: IV, Dosing Weight 71.932 kg, Total Volume: 1,000, Start date: 07/13/15 19:47:00 CDT, Duration: 30 day, Stop date: 08/12/15 19:46:00 CDT Morphine No Notes: Memoria 5- (Same l 00:47: as:MORPhin [place] 00 e Sulfate) Acetaminoph No Notes: Xiang bethany en 325 MG / 07-13 (Same as: l Hydrocodone 00:47: [place] Danielle nn Bitartrate 00 325/5) Do 5 MG Oral not exceed Tablet 4gm/day of acetaminop hen. Docusate No Notes: Memoria - (Same as: l 00:47: Colace) Ondansetron No Notes: Xiang bethany -03 (Same as: l 00:47: Zofran) MEDICATION WASTE Product Size: 4 mg Product Wasted: _0__ mg Roflumilast No 0 Memori a 0.5 MG Oral 5-03 Refill(s) l Tablet 00:38: Damien [Daliresp] 00 Albuterol No 0 Memoria 0.833 MG/ML - Refill(s) l / 00:38: [place] Ipratropium 00 [place] 0.167 MG/ML Inhalant Solution atorvastati Yes 10 mg = 1 M emoria n 10 mg 5-03 tab, PO, l oral tablet 00:38: Bedtime, 0 Refill(s) Sodium No 25 mL, Memoria Chloride 07-12 Route: IV, l 0.9% IV 20:59: Start date: 07/13/15 15:59:00 CDT, Duration: 30 day, Stop date: 08/12/15 15:58:00 CDT, PRN Line Flush Albuterol No Notes: Memori a 0.833 MG/ML - (Same as: l / 20:50: Duoneb) [place] Ipratropium 00 [place] 0.167 MG/ML Inhalant Solution methylPREDN No Notes: [...] l / 01:00: Duoneb) Damien Ipratropium 00 [place] 0.167 MG/ML Inhalant Solution [DuoNeb] BD Normal No Notes: Memori a Saline - (Same as: l Flush 23:43: BD [place] 00 Posiflush) Sodium No IV, 0 Memoria Chloride 2-22 ml/hr, l 0.9% IV 23:42: PRN, PRN Shravan n 00 Line Flush, Start date: 05/04/15 17:42:00, Duration: 30, 25 ml Levaquin No Notes: Memoria 2-22 (Same l 23:00: as:Levaqui [place] 00 n) Tessalon No Notes: Memoria Perles 2-22 (Same As: l 22:18: Tessalon Damien 00 Kenny) "Do Not Crush" Robitussin- No Notes: Xiang bethany AC oral 2-22 (Same As: l syrup 22:18: Robitussin Shravan n 00 AC) Unknown Yes 2 puffs, Memori a Home 2-22 INHALATION l Medication 21:24: , BID, Danielle nn experiment al drug no name, Refill(s) 0 AUGMENTIN No 1 tablet Xiang bethany 875-125 MG 1-02 twice l TABS 00:00: daily for Damien 00 14 days PREDNISONE No 4 po daily M emoria 10 MG TABS 1-02 on days l 00:00: 1-4, 3 po 00 daily on days 5-8, 2 po daily on days 9-12, 1 po daily on days 13-16 PREDNISONE Yes 4 po daily M emoria 10 MG TABS 1-02 on days l 00:00: 1-4, 3 po daily on days 5-8, 2 po daily on days 9-12, 1 po daily on days 13-16 AUGMENTIN 2013-03 No 1 tablet Xiang bethany 875-125 MG 2-11 twice l TABS 00:00: daily for [place] 00 10 days DOXYCYCLINE 2013-03 No 1 tablet Me moria HYCLATE 100 2-09 twice l MG TABS 00:00: daily for Danielle 10 days SYMBICORT Yes Two puffs Mem [...] Route: l MG/ML 22:00: NEB, Drug Inhalant Form: Solution SOLN, Dosing Weight 80.909, kg, Q8H, Start date: 05/16/13 16:00:00, Duration: 30 day, Stop date: 06/15/13 8:00:00 acetylcyste No 200 mg, 1 M emoria ine 3-06 mL, Route: l 21:00: NEB, Drug Form: SOLN, RQ8H, Start date: 05/16/13 15:00:00, Duration: 30 day, Stop date: 06/15/13 7:00:00 Albuterol No 3 ml, Memoria 0.833 MG/ML 3-06 Route: l / 21:00: INHALATION [place] Ipratropium , Drug [place] Form: 0.167 MG/ML SOLN, Inhalant Dosing Solution Weight [DuoNeb] 80.909, kg, RQ4H, Start date: 05/16/13 15:00:00, Duration: 30 day, Stop date: 06/15/13 11:00:00(S lizabeth as: Duoneb) Cipro 2013-0 No 400 mg, Memoria 3-06 200 mL, l 19:00: Route: Damien 00 IVPB, Drug form: INJ, [id number], Dosing Weight 80.909, kg, Start date: 05/16/13 [...] Duration: 30 day, Stop date: 06/15/13 12:03:00(c odcheri-meet ifenesin 20-200mg/1 0ml LIQ) (Same As: Radha AC) predniSONE Yes Pascual Brunner 20 mg, 1 Memoria 20 mg oral 09-12 tab, PO, l tablet 15:49: BID, 14 [place] 54 tab, Substituti on Allowed, TAB DuoNeb [...] 42 ea, solution Substituti on Allowed, Maintenanc eDAWNA Combivent Yes 2 puff, Memor ia inhalation 09-11 INHALER, l aerosol 18:07: QID, 14 [place] with 00 gm, adapter Substituti on Allowed, [...] 09-11 tab, PO, l tablet 18:00: BID, Damien 21 Substituti on Allowed, TAB Cipro No Pascual Brunner 400 mg, Xiang bethany 09-11 200 mL, l 17:00: Route: [place] IVPB, Drug form: INJ, [id number], Dosing Weight 80.028, kg, Start date: 09/11/12 12:00:00, Duration: 30 day, Stop date: 10/11/12 0:00:00 methylPREDN No Pascual Brunner 40 mg, 1 Memoria ISolone 09-11 mL, Route: l SODium 17:00: IVP, Drug [...] Memoria 09-11 Rate: 100 l 16:36: ml/hr, [place] 00 Infuse over: 10 hr, Route: IV, Dosing Weight 80.028 kg, Total Volume: 1,000, Start date: 09/11/12 11:36:00, Duration: 30 day, Stop date: 10/11/12 11:35:00 Vital Signs Vital Name Observation Time Observation Value Comments Source Height 2017-06-05 18:21:00 182.88 cm [facility] [place] BMI Calculated 2017-06-05 18:21:00 Memori al [place] Weight 2017-06-05 18:21:00 [facility] [place] Systolic (mm Hg) 2017-06-05 18:21:00 Xiang rial [place] Diastolic (mm Hg) 2017-06-05 18:21:00 Mem orial [place] Weight 2017-04-24 20:45:00 [facility] [place] BMI Calculated 2017-04-24 20:45:00 [facility] al [place] Height 2017-04-24 20:45:00 182.88 cm [facility] [place] Heart Rate 2017-04-24 20:45:00 [facility] [place] Systolic (mm Hg) 2017-04-24 20:45:00 Xiang rial [place] Diastolic (mm Hg) 2017-04-24 20:45:00 Mem orial [place] Heart Rate 2016-06-28 20:00:00 [facility] [place] Respitory Rate 2016-06-28 20:00:00 Mem[facility] al [place] Systolic (mm Hg) 2016-06-28 20:00:00 Xiang rial [place] Diastolic (mm Hg) 2016-06-28 20:00:00 Mem o[facility] [place] Temperature Oral (F) 2016-06-28 20:00:00 98.5 F [facility] [place] Systolic (mm Hg) 2016-06-28 16:00:00 Xiang rial [place] Diastolic (mm Hg) 2016-06-28 16:00:00 Mem orial [place] Respitory Rate 2016-06-28 16:00:00 Memori al [place] Heart Rate 2016-06-28 16:00:00 [facility] [place] Temperature Oral (F) 2016-06-28 16:00:00 98.1 F [facility] [place] Temperature Oral (F) 2016-06-28 12:00:00 97.5 F [facility] [place] Heart Rate 2016-06-28 12:00:00 [facility] [place] Systolic (mm Hg) 2016-06-28 12:00:00 Xiang rial [place] Diastolic (mm Hg) 2016-06-28 12:00:00 Mem orial [place] Respitory Rate 2016-06-28 12:00:00 [facility] al [place] Weight 2016-06-22 03:50:00 [facility] [place] BMI Calculated 2016-06-22 03:50:00 [facility] al [place] Height 2016-06-22 03:50:00 182.88 cm [facility] [place] Weight 2016-06-21 18:45:00 [facility] [place] Height 2016-06-21 18:45:00 182.88 cm [facility] [place] BMI Calculated 2016-06-21 18:45:00 [facility] [place] Heart Rate 2016-05-31 20:30:00 [facility] [place] Respitory Rate 2016-05-31 20:30:00 [facility] al [place] Temperature Oral (F) 2016-05-31 20:30:00 97.8 F [facility] [place] Weight 2016-05-31 20:30:00 [facility] [place] Diastolic (mm Hg) 2016-05-31 20:30:00 Mem orial [place] Systolic (mm Hg) 2016-05-31 20:30:00 Xiang rial [place] Systolic (mm Hg) 2016-05-18 22:11:00 Xiang rial [place] Diastolic (mm Hg) 2016-05-18 22:11:00 Mem orial [place] Heart Rate 2016-05-18 22:11:00 [facility] [place] Respitory Rate 2016-05-18 22:11:00 [facility]ori al [place] Temperature Oral (F) 2016-05-18 22:11:00 98.5 F [facility] [place] Temperature Oral (F) 2016-05-18 17:09:00 98.4 F [facility] [place] Heart Rate 2016-05-18 17:09:00 [facility] [place] Systolic (mm Hg) 2016-05-18 17:09:00 Xiang rial [place] Diastolic (mm Hg) 2016-05-18 17:09:00 Mem orial [place] Respitory Rate 2016-05-18 17:09:00 [facility] al [place] Temperature Oral (F) 2016-05-18 14:45:00 98.2 F [facility] [place] Respitory Rate 2016-05-18 14:45:00 [facility] al [place] Heart Rate 2016-05-18 14:45:00 [facility] [place] Systolic (mm Hg) 2016-05-18 14:45:00 Xiang rial [place] Diastolic (mm Hg) 2016-05-18 14:45:00 Mem orial [place] Height 2016-05-18 01:33:00 182.88 cm [facility] [place] BMI Calculated 2016-05-18 01:33:00 [facility] al [place] Weight 2016-05-18 01:33:00 [facility] [place] BMI Calculated 2016-05-17 17:50:00 [facility] al [place] Height 2016-05-17 17:50:00 182.88 cm [facility] [place] Weight 2016-05-17 17:50:00 [facility] [place] Systolic (mm Hg) 2015-07-20 16:05:00 Xiang rial [place] Diastolic (mm Hg) 2015-07-20 16:05:00 Mem o[facility] [place] Respitory Rate 2015-07-20 16:05:00 [facility] al [place] Heart Rate 2015-07-20 16:05:00 [facility] [place] Temperature Oral (F) 2015-07-20 16:05:00 98.4 F [facility] [place] Temperature Oral (F) 2015-07-20 12:26:00 98.3 F [facility] [place] Respitory Rate 2015-07-20 12:26:00 [facility]ori al [place] Systolic (mm Hg) 2015-07-20 12:26:00 Xiang rial [place] Diastolic (mm Hg) 2015-07-20 12:26:00 Mem orial [place] Heart Rate 2015-07-20 12:26:00 [facility] [place] Respitory Rate 2015-07-20 09:30:00 [facility] al [place] Heart Rate 2015-07-20 09:30:00 [facility] [place] Systolic (mm Hg) 2015-07-20 09:30:00 Xiang rial [place] Diastolic (mm Hg) 2015-07-20 09:30:00 Mem o[facility] [place] Temperature Oral (F) 2015-07-20 09:30:00 97.4 F [facility] [place] Height 2015-07-16 02:36:00 203.2 cm [facility] [place] BMI Calculated 2015-07-15 23:02:00 [facility] al [place] Height 2015-07-15 23:02:00 175.26 cm [facility] [place] Weight 2015-07-15 23:02:00 [facility] [place] Respitory Rate 2015-07-14 17:47:00 Memori al [place] Heart Rate 2015-07-14 17:47:00 [facility] [place] Systolic (mm Hg) 2015-07-14 17:47:00 Xiang rial [place] Diastolic (mm Hg) 2015-07-14 17:47:00 Mem [facility] [place] Temperature Oral (F) 2015-07-14 17:47:00 98.6 F [facility] [place] Respitory Rate 2015-07-14 13:00:00 Mem[facility] al [place] Systolic (mm Hg) 2015-07-14 13:00:00 Xiang rial [place] Diastolic (mm Hg) 2015-07-14 13:00:00 Mem orial [place] Heart Rate 2015-07-14 13:00:00 [facility] [place] Temperature Oral (F) 2015-07-14 13:00:00 98 F [facility] [place] Temperature Oral (F) 2015-07-14 09:15:00 98.2 F [facility] [place] Heart Rate 2015-07-14 09:15:00 [facility] [place] Systolic (mm Hg) 2015-07-14 09:15:00 Xiang rial [place] Diastolic (mm Hg) 2015-07-14 09:15:00 Mem o[facility] [place] Respitory Rate 2015-07-14 09:15:00 [facility] al [place] Height 2015-07-14 02:19:00 182.88 cm [facility] [place] Height 2015-07-14 02:13:00 182.88 cm [facility] [place] BMI Calculated 2015-07-13 18:47:00 [facility] [place] Weight 2015-07-13 18:47:00 [facility] [place] Height 2015-07-13 18:47:00 182.88 cm [facility] [place] Heart Rate 2015-05-07 18:43:00 [facility] [place] Temperature Oral (F) 2015-05-07 18:43:00 98 F [facility] [place] Systolic (mm Hg) 2015-05-07 18:43:00 Xiang rial [place] Diastolic (mm Hg) 2015-05-07 18:43:00 Mem o[facility] [place] Respitory Rate 2015-05-07 18:43:00 [facility] [place] Temperature Oral (F) 2015-05-07 14:07:00 98.1 F [facility] [place] Respitory Rate 2015-05-07 14:07:00 [facility] [place] Systolic (mm Hg) 2015-05-07 14:07:00 Xiang rial [place] Diastolic (mm Hg) 2015-05-07 14:07:00 Mem o[facility] [place] Heart Rate 2015-05-07 14:07:00 [facility] [place] Heart Rate 2015-05-07 09:20:00 [facility] [place] Systolic (mm Hg) 2015-05-07 09:20:00 Xiang rial [place] Diastolic (mm Hg) 2015-05-07 09:20:00 Mem o[facility] [place] Respitory Rate 2015-05-07 09:20:00 [facility] [place] Temperature Oral (F) 2015-05-07 09:20:00 97.9 F [facility] [place] Weight 2015-05-04 21:15:00 [facility] [place] BMI Calculated 2015-05-04 21:15:00 [facility] [place] Height 2015-05-04 21:15:00 182.88 cm [facility] [place] Height 2015-05-04 21:07:00 182.88 cm [facility] [place] Weight 2015-05-04 21:07:00 [facility] [place] BMI Calculated 2015-05-04 21:07:00 [facility] [place] Temperature Oral (F) 2014-07-23 12:58:30 98.5 F [facility] [place] Respitory Rate 2014-07-23 12:58:30 [facility] [place] Heart Rate 2014-07-23 12:58:30 [facility] [place] Height 2014-07-23 12:58:30 [facility] [place] Weight 2014-07-23 12:58:30 [facility] [place] Systolic (mm Hg) 2014-07-23 12:58:30 Xiang rial [place] Diastolic (mm Hg) 2014-07-23 12:58:30 [facility] [place] Height 2014-03-14 14:04:42 [facility] [place] Temperature Oral (F) 2014-03-14 14:04:42 97 F [facility] [place] Respitory Rate 2014-03-14 14:04:42 [facility] [place] Heart Rate 2014-03-14 14:04:42 [facility] [place] Systolic (mm Hg) 2014-03-14 14:04:42 Xiang rial [place] Diastolic (mm Hg) 2014-03-14 14:04:42 [facility] [place] Height 2014-02-20 14:03:41 [facility] [place] Weight 2014-02-20 14:03:41 [facility] [place] Temperature Oral (F) 2014-02-20 14:03:41 98.3 F [facility] [place] Respitory Rate 2014-02-20 14:03:41 [facility] [place] Heart Rate 2014-02-20 14:03:41 [facility] [place] Systolic (mm Hg) 2014-02-20 14:03:41 Xiang rial [place] Diastolic (mm Hg) 2014-02-20 14:03:41 [facility] [place] Height 2014-02-18 17:25:11 [facility] [place] Weight 2014-02-18 17:25:11 [facility] [place] Temperature Oral (F) 2014-02-18 17:25:11 98.3 F [facility] [place] Respitory Rate 2014-02-18 17:25:11 [facility] [place] Heart Rate 2014-02-18 17:25:11 [facility] [place] Systolic (mm Hg) 2014-02-18 17:25:11 Xiang rial [place] Diastolic (mm Hg) 2014-02-18 17:25:11 [facility] [place] Height 2013-12-03 18:05:02 [facility] [place] Weight 2013-12-03 18:05:02 [facility] [place] Temperature Oral (F) 2013-12-03 18:05:02 98.3 F [facility] [place] Respitory Rate 2013-12-03 18:05:02 [facility] [place] Heart Rate 2013-12-03 18:05:02 [facility] [place] Systolic (mm Hg) 2013-12-03 18:05:02 Xiang rial [place] Diastolic (mm Hg) 2013-12-03 18:05:02 [facility] [place] Systolic (mm Hg) 2013-11-26 18:55:21 Xiang rial [place] Diastolic (mm Hg) 2013-11-26 18:55:21 [facility] [place] Weight 2013-11-26 18:55:21 [facility] [place] Temperature Oral (F) 2013-11-26 18:55:21 98.4 F [facility] [place] Respitory Rate 2013-11-26 18:55:21 [facility] [place] Heart Rate 2013-11-26 18:55:21 [facility] [place] Height 2013-11-26 18:55:21 [facility] [place] Temperature Oral (F) 2013-05-18 13:27:00 98.1 F [facility] [place] Respitory Rate 2013-05-18 13:27:00 [facility] [place] Heart Rate 2013-05-18 13:27:00 [facility] [place] Systolic (mm Hg) 2013-05-18 13:27:00 Xiang rial [place] Diastolic (mm Hg) 2013-05-18 13:27:00 [facility] [place] Systolic (mm Hg) 2013-05-18 10:00:00 Xiang rial [place] Diastolic (mm Hg) 2013-05-18 10:00:00 [facility] [place] Temperature Oral (F) 2013-05-18 10:00:00 96.8 F [facility] [place] Respitory Rate 2013-05-18 10:00:00 [facility] [place] Heart Rate 2013-05-18 10:00:00 [facility] [place] Diastolic (mm Hg) 2013-05-18 05:35:00 [facility] [place] Temperature Oral (F) 2013-05-18 05:35:00 96.5 F [facility] [place] Respitory Rate 2013-05-18 05:35:00 [facility] [place] Systolic (mm Hg) 2013-05-18 05:35:00 Xiang rial [place] Heart Rate 2013-05-18 05:35:00 [facility] [place] BMI Calculated 2013-05-16 17:59:00 [facility] [place] Weight 2013-05-16 17:59:00 [facility] [place] Height 2013-05-16 17:59:00 182.88 cm [facility] [place] Respitory Rate 2012-09-12 17:09:00 [facility] [place] Systolic (mm Hg) 2012-09-12 17:09:00 Xiang rial [place] Diastolic (mm Hg) 2012-09-12 17:09:00 [facility] [place] Temperature Oral (F) 2012-09-12 17:09:00 96.9 F [facility] [place] Heart Rate 2012-09-12 17:09:00 [facility] [place] Diastolic (mm Hg) 2012-09-12 12:55:00 [facility] [place] Systolic (mm Hg) 2012-09-12 12:55:00 Xiang rial [place] Respitory Rate 2012-09-12 12:55:00 [facility] [place] Heart Rate 2012-09-12 12:55:00 [facility] [place] Temperature Oral (F) 2012-09-12 12:55:00 96.3 F [facility] [place] Systolic (mm Hg) 2012-09-12 09:36:00 Xiang sánchez [place] Diastolic (mm Hg) 2012-09-12 09:36:00 [facility] [place] Heart Rate 2012-09-12 09:36:00 [facility] [place] Respitory Rate 2012-09-12 09:36:00 [facility] [place] Temperature Oral (F) 2012-09-12 09:36:00 96.9 F [facility] [place] Weight 2012-09-11 16:16:00 [facility] [place] Height 2012-09-11 16:16:00 182.88 cm [facility] Procedures Procedure Date / Time Performed Performing Clinician [facility] e smoking/tobacco 2013-11-26 18:55:21 [facility] ruiz cessation, patient education and counseling Appendectomy; [facility] [place] ORIF - Open reduction and [facility] [place] internal fixation of fracture ORIF - Open reduction and Mem[facility] [place] internal fixation of fracture Encounters Start End Encounter Admission Attending Care Care Encounter Source Date/Time Date/Time Type Type Clinicians Facility Department ID 2020-07-28 Outpatient SYSTEM, [facility] [id number] 08:16:37 PROVIDER Joel franks 2017-11-29 2017-11-29 Outpatient Wyatt, MHMISCHER MHMISCHER [id number] 13:30:00 13:30:00 [facility] 2017-06-05 2017-06-05 Outpatient Wyatt, MHMISCHER MHMISCHER [id number] 13:15:00 23:59:59 [facility] 2017-04-24 2017-04-24 Outpatient Wyatt, MHMISCHER MHMISCHER [id number] 14:15:00 23:59:59 [facility] 2017-04-24 2017-04-24 Outpatient Wyatt, MHMISCHER MHMISCHER [id number] 14:15:00 23:59:59 [facility] 2017-04-12 2017-04-13 Outpatient MHMISCHER MHMISCHER [id number] 11:38:00 23:59:59 2016-05-30 2016-06-28 Outpatient Niki [id number]. [id number] 09:00:00 23:59:00 , Ebba [id number] Ning [id number] 5.15 Best 2016-06-21 2016-06-28 Outpatient Ishkevenq, MH9 MH9 [id number] 13:24:00 19:30:00 Jose F 2016-05-31 2016-05-31 Outpatient Sahil Hunter Sahil T Lo [id number] [facility] 14:30:00 14:30:00 Binta Crespo ks 2016-05-17 2016-05-18 Outpatient Agustín Calzadaed MH9 MH9 [id number] 11:39:00 18:19:00 Ali 2015-07-15 2015-07-20 Outpatient Payan, MH9 MH9 [id number] 18:00:00 12:31:00 Alicia 05 Jefe 2015-07-13 2015-07-14 Outpatient Payan, MH9 MH9 [id number] 13:41:00 15:50:00 Alicia 04 Jefe 2015-05-06 2015-05-07 Outpatient Pascual Brunner MH9 [id number] 12:00:00 16:00:00 53 2014-07-31 2014-07-31 [place] [id number] 13:53:00 23:59:00 Ifeanyi Mu 2014-07-28 2014-07-28 [place] [id number] 16:00:00 23:59:00 Ifeanyi Dobbins 2013-11-27 2013-11-27 [place] [id number] 18:11:00 23:59:00 Ifeanyi Mu 2013-10-09 2013-10-09 Outpatient Lele, MHHS [facility]HS [id number] 08:55:00 23:59:00 Sriram 00 2013-05-17 2013-05-18 [id number] 11:45:00 12:45:00 65 Results Test Description Test Time Test Comments Results Result Comments Source ACT-ISTAT 2020-04-25 09:23:00 Test Item Value Reference Range Interpretation Comme nts ACT-ISTAT (test code = ACTI) 246 SEC 74-137 H BASIC METABOLIC [id number] 09:14:00 Test Item Value Reference Range Interpretation [...] RECOLLECTION NEEDED ON 04/25/20 AT 0817 BY [email or web address]: POSSIBLE CONTAMINTION.NOTIFIED PATIENT CARE STAFF: BRITNYLIPID PROFILE [...] RECOLLECTION NEEDED ON 04/25/20 AT 0817 BY [email or web address]: POSSIBLE CONTAMINTION.NOTIFIED PATIENT CARE STAFF: [id number] 09:14:00 Test Item Value Reference Range Interpretation Comments MAGNESIUM (test code = MAG) 2.0 MG/DL 1.6-2.3 N RECOLLECTION NEEDED ON 04/25/20 AT 0817 BY [email or web address]: POSSIBLE CONTAMINTION.NOTIFIED PATIENT CARE STAFF: [facility] MET[facility]OLIC [id number] 09:02:00 Test Item Value Reference Range Interpretation [...] RECOLLECTION NEEDED ON 04/25/20 AT 0817 BY [email or web address]: POSSIBLE CONTAMINTION.NOTIFIED PATIENT CARE STAFF: AMYLIPID PROFILE [...] RECOLLECTION NEEDED ON 04/25/20 AT 0817 BY [email or web address]: POSSIBLE CONTAMINTION.NOTIFIED PATIENT CARE STAFF: [id number] 09:02:00 Test Item Value Reference Range Interpretation Comments MAGNESIUM (test code = MAG) MG/DL 1.6-2.3 RECOLLECTION NEEDED ON 04/25/20 AT 08 BY Z.LAB.DY5NJVVFW: POSSIBLE CONTAMINTION.NOTIFIED PATIENT CARE STAFF: AMYBASIC METABOLIC [id number] 08:52:00 Test Item Value Reference Range Interpretation [...] RECOLLECTION NEEDED ON 04/25/20 AT 0817 BY Z.LAB.UN6ZGZMDJ: POSSIBLE CONTAMINTION.NOTIFIED PATIENT CARE STAFF: AMYLIPID PROFILE [...] = LDL) RECOLLECTION NEEDED ON 04/25/20 AT 0817 BY StephenLAB.AR0GNBSNZ: POSSIBLE CONTAMINTION.NOTIFIED PATIENT CARE STAFF: FEXVKUTCETMMLCY3360-24-07 08:52:00 Test Item Value Reference Range Interpretation Comments MAGNESIUM (test code = MAG) MG/DL 1.6-2.3 RECOLLECTION NEEDED ON 04/25/20 AT 08 BY Jose De Jesus.LAB.JT4BRIBBI: POSSIBLE CONTAMINTION.NOTIFIED PATIENT CARE STAFF: AMYPROTHROMBIN [id number] 06:44:00 Test Item Value Reference Range Interpretation [...] syste manish embolism. 3.0 - 4.5 PTT JATDABJQU5453-79-00 06:44:00 Test Item Value Reference Range Interpretation Comments PTT ACTIVATED (test code = APTT) 23.6 SECONDS 25.1-36.5 L CBC W/AUTO PQDT2920-03-25 06:33:00 Test Item Value Reference Range Interpretation [...] 0.0-0.1 N NRBC#) COVID 19 Asymptomatic IH [id number] 05:24:00 Test Item Value Reference Range Interpretation [...] in the sample." - INS GASTRO TUBE KIQV0838-13-28 15:10:00 [facility] : 1945 Sex: M Name: SHIRLENE NICHOLAS [facility] : 1945ge/S: 74 / M [address] [address] Unit #: [id number] Loc: [place] [address] Phys: Sapna Rosas MD Acct: [id number] Dis Date: [id number] Status: DIS IN PHONE#: [phone] Exam Date: 01/02/2020 1200 FAX #: Reason: THROAT CA EXAMS: CPT: [id number] INS GASTRO TUBE PERC 07832 Fluoro Time:00:24 DAP (Gy m2): 1 Air Kerma (mGy): 0.27 C3 Procedure: A borted gastrostomy tube Indication: Dysphagia. Head and neck cancer. Date: 01/02/2020 Operators: Jason Rosa M.D. Medications: 1 mg IV glucagon IV Versed, and IV fentanyl Stms-uh-yfnq time: Approximately 30 minutes. Complications: None immediate [...] left. IV glucagon was administered. Through a 5-Nigerian Kumpe catheter which was placed in the [...] the procedure.PAGE 1 Signed Report (CONTINUED) Name: SHRILENE NICHOLAS : 1945 Age/S: 74 / M [address] [facility] Unit #: [id number] Loc: [place] [address] Phys: Sapna Rosas MD Acct: [id number] Dis Date: [id number] Status: DIS IN PHONE #: [phone] Exam Date: 01/02/2020 1200 FAX #: Reason: THROAT CA EXAMS: CPT: [id number] INS GASTRO TUBE PERC 31376 Fluoro Time: 00:24 DAP (Gy m2): 1 Air Kerma (mGy): 0.27 <Continued> at 1510 Reported and signed by: Jason Rosa M.D. CC: Sapna Rosas MD; Morteza Arriaza MD PAGE 2 Signed Report Name: SHIRLENE NICHOLAS : 1945 Age/S: 74 / M [address] [facility] Unit #: [id number] Loc: [place] [address] Phys: Sapna Rosas MD Acct: [id number] Dis Date: [id number] Status: DIS IN PHONE #: [phone] Exam Date: 01/02/2020 1200 FAX #: Reason: THROAT CA EXAMS: CPT: [id number] INS GASTRO TUBE PERC 76452 Fluoro Time: 00:24 DAP (Gy m2): 1 Air Kerma (mGy): 0.27 <Continued> Technologist: Kanika Garcia Trnscb Date/Time: 01/23/2020 (151 0) tVERENAR.SI1 Orig Print D/T: S: 01/23/2020 (1513) PAGE 3 Signed ReportGLUCOSE BEDSIDE TESTING 2020-01-08 11:44:00 Test Item Value Reference Range Interpretation Comments GLUCOSE BEDSIDE TESTING (test code 131 mg/dL 70-110 H = GLUBED) GLUCOSE BEDSIDE [id number] 07:59:00 Test Item Value Reference Range Interpretation Comments GLUCOSE BEDSIDE TESTING (test code = 79 mg/dL 70-110 N GLUBED) GLUCOSE BEDSIDE [id number] 06:23:00 Test Item Value Reference Range Interpretation Comments GLUCOSE BEDSIDE TESTING (test code = 87 mg/dL 70-110 N GLUBED) GLUCOSE BEDSIDE [id number] 11:37:00 Test Item Value Reference Range Interpretation Comments GLUCOSE BEDSIDE TESTING (test code 101 mg/dL 70-110 N = GLUBED) GLUCOSE BEDSIDE [id number] 08:43:00 Test Item Value Reference Range Interpretation Comments GLUCOSE BEDSIDE TESTING (test code 114 mg/dL 70-110 H = GLUBED) GLUCOSE BEDSIDE [id number] 20:55:00 Test Item Value Reference Range Interpretation Comments GLUCOSE BEDSIDE TESTING (test code = 86 mg/dL 70-110 N GLUBED) - XR SWLW FUNC W/C [id number] 12:12:00 [facility] : 1945 Sex: M Name: SHIRLENE NICHOLAS [place] : 1945ge/S: 74 / M [address] [address] Unit #: [id number] Loc: [place] [address] Phys: Sapna Rosas MD Acct: [id number] Dis Date: Status: ADM IN PHONE#: [phone] Exam Date: 01/06/2020 1000 FAX #: Reason: MBS EXAMS: CPT: [id number] XR SWLW FUNC W/C V 64697 Fluoro Time:132 DAP (Gy m2): Air Kerma [...] PAGE 1 Signed Report Name: SHIRLENE NICHOLAS [place] : 1945 Age/S: 74 / M [address] [address] Unit #: [id number] Loc: [place] [address] Phys: Sapna Rosas MD Acct: [id number] Dis Date: Status: ADMIN PHONE #: [phone] Exam Date: 01/06/2020 1000 FAX #: Reason: MBS EXAMS: CPT: [id number] XR SWLW FUNC W/C V 14221 Fluoro Time: 132 DAP (Gy m2): Air Kerma (mGy): 8.79 <Continued> Technologist: Wayne Cleary, RT(R)(CT) Trnscb Date/Time: 01/06/2020 (6524) t.SDR.ANS4 Orig Print D/T: S: 01/06/2020 (6056) PAGE 2 Signed ReportGLUCOSE BEDSIDE [id number] 11:57:00 Test Item Value Reference Range Interpretation Comments GLUCOSE BEDSIDE TESTING (test code 136 mg/dL 70-110 H = GLUBED) GLUCOSE BEDSIDE [id number] 10:25:00 Test Item Value Reference Range Interpretation Comments GLUCOSE BEDSIDE TESTING (test code 105 mg/dL 70-110 N = GLUBED) - XR CHEST 1 [id number] 07:39:00 [facility] : 1945 Sex: M Name: SHIRLENE NICHOLAS [facility] : 1945ge/S: 74 / M [address] [address] Unit #: [id number] Loc: [place] [address] Phys: Magen Hammond MD Acct: [id number] Dis Date: Status: ADM IN PHONE#: [phone] Exam Date: 01/06/2020 0605 FAX #: Reason: pneumnonia EXAMS: CPT: [id number] XR CHEST 1 V 20403 Fluoro Time: DAP (Gy m2): Air Kerma [...] PAGE 1 Signed Report Name: SHIRLENE NICHOLAS [facility] : 1945 Age/S: 74 / M [address] [address] Unit #: [id number] Loc: [place] [address] Phys: Magen Hammond MD Acct: [id number] Dis Date: Status: ADM IN PHONE #: [phone] ExamDate: 01/06/2020 06 FAX #: Reason: pneumnonia EXAMS: CPT: [id number] XR CHEST 1 V 58426 Fluoro Time: DAP (Gy m2): Air Kerma (mGy): <Continued> Technologist: Tati Buchanan, RT(R)(CT) Trnscb Date/Time: 01/06/2020 (07) tVERENAR.HV2 Orig Print D/T: S: 01/06/2020 (0742) PAGE 2 Signed ReportGLUCOSE BEDSIDE [id number] 04:31:00 Test Item Value Reference Range Interpretation Comments GLUCOSE BEDSIDE TESTING (test code = 89 mg/dL 70-110 N GLUBED) GLUCOSE BEDSIDE [id number] 20:49:00 Test Item Value Reference Range Interpretation Comments GLUCOSE BEDSIDE TESTING (test code 109 mg/dL 70-110 N = GLUBED) GLUCOSE BEDSIDE [id number] 12:37:00 Test Item Value Reference Range Interpretation Comments GLUCOSE BEDSIDE TESTING (test code 160 mg/dL 70-110 H = GLUBED) - CT CHEST W/O NZCPJJBI1263-21-64 10:09:00 [facility] : 1945 Sex: M Name: SHIRLENE NICHOLAS : 1945ge/S: 74 / M [address] [address] Unit #: [id number] Loc: [place] [address] Phys: Sapna Rosas MD Acct: [id number] Dis Date: Status: ADM IN PHONE#: [phone] Exam Date: 01/05/2020 0958 FAX #: Reason:TANIKA CONGESTION EXAMS: CPT: [id number] CT CHEST W/O CONTRAST 02171 EXAM: - CT CHEST W/O CONTRAST INDICATION: [...] NICHOLAS : 1945 Age/S: 74 / M [address] [address] Unit #: [id number] Loc: [place] [address] Phys: Sapna Rosas MD Acct: [id number] Dis Date: Status: ADM IN PHONE #: [phone] ExamDate: 01/05/2020 0958 FAX #: Reason: TANIKA CONGESTION EXAMS: CPT: [id number] CT CHEST W/O CONTRAST 28172 <Continued> at 1009 Reported and signed by: Lalo Lao M.D. CC: Sapna Rosas MD; Morteza Arriaza MD Tech nologist:Anne-Marie Cuevas, RT(R)(CT) CTDI: DLP: Trnscb Date/Time: 01/05/2020 (1009) t.ISISR.AH26 Orig Print D/T: S: 01/05/2020 (1012) PAGE 2 Signed ReportGLUCOSE BEDSIDE [id number] 07:56:00 Test Item Value Reference Range Interpretation Comments GLUCOSE BEDSIDE TESTING (test code 137 mg/dL 70-110 H = GLUBED) GLUCOSE BEDSIDE [id number] 00:33:00 Test Item Value Reference Range Interpretation Comments GLUCOSE BEDSIDE TESTING (test code 162 mg/dL 70-110 H = GLUBED) - CT ABD PELVIS W/HXEG0575-21-43 13:06:00 [facility] : 1945 Sex: M Name: SHIRLENE NICHOLAS [facility] : 1945ge/S: 74 / M [address] [address] Unit #: [id number] Loc: [place] [address] Phys: Sapna Rosas MD Acct: [id number] Dis Date: Status: ADM IN PHONE#: [phone] Exam Date: 01/04/2020 1230 FAX #: Reason:abd pain EXAMS: CPT: [id number] CT ABD PELVIS W/CONT 38619 CT abdomen and pelvis with IV contrast. [...] 1 Signed Report (CONTINUED) Name: SHIRLENE NICHOLAS [facility] : 1945 Age/S: 74 / M [address] [address] Unit #: [id number] Loc: [place] [address] Phys: Sapna Rosas MD Acct: [id number] Date: Status: ADM IN PHONE #: [phone] Exam Date: 01/04/2020 1230 FAX #: Reason: abd pain EXAMS: CPT: [id number] CT ABD PELVIS W/CONT 83341 <Continued> Interval development of upper abdominal foci [...] above. at 1306 Reported and signed by: Kevno Angela M.D. CC: Sapna Rosas MD; Morteza Arriaza MD Technologist:Jennifer Abbasi, RT(R) CTDI: DLP: Trnscb Date/Time: 01/04/2020 (7037) t.ISISR.RH16 Orig Print D/T: S: 01/04/2020 (0484) PAGE 2 Signed Report- XR ABDOMEN 1 [id number] 08:50:00 [facility] : 1945 Sex: M Name: SHIRLENE NICHOLAS [facility] : 1945ge/S: 74 / M [address] [facility] Unit #: [id number] Loc: [place] [address] Phys: Sapna Rosas MD Acct: [id number] Dis Date: Status: ADM IN PHONE#: [phone] Exam Date: 01/04/2020 0837 FAX #: Reason: abd pain EXAMS: CPT: [id number] XR ABDOMEN 1 V 97803 Fluoro Time: DAP (Gy m2): Air Kerma [...] MD PAGE 1 Signed Report Name:SHIRLENE NICHOLAS [facility] : 1945 Age/S: 74 / M [address] [address] Unit #: [id number] Loc: [place] [address] Phys: Sapna Rosas MD Acct: [id number] Dis Date: Status: ADM IN PHONE #: [phone] Exam Date: 01/04/2020 0837 FAX #: Reason: abd pain EXAMS: CPT: [id number] XR ABDOMEN 1 V 54604 Fluoro Time: DAP(Gy m2): Air Kerma (mGy): <Continued> Technologist: Anne-Marie Cuevas RT(R)(CT) Trnscb Date/Time: 01/04/2020 (0850) TessaRH16 Orig Print D/T: S: 01/04/2020 (0853) PAGE 2 Signed Report- XR CHEST 1 [id number] 08:50:00 [facility] : 1945 Sex: M Name: SHIRLENE NICHOLAS [facility] : 1945ge/S: 74 / M [address] [address] Unit #: [id number] Loc: [place] [address] Phys: Sapna Rosas MD Acct: [id number] Dis Date: Status: ADM IN PHONE#: [phone] Exam Date: 01/04/2020 08 FAX #: Reason: cough EXAMS: CPT: [id number] XR CHEST 1 V 41834 Fluoro Time: DAP (Gy m2): Air Kerma [...] Arriaza MD PAGE 1 Signed Report Name:SHIRLENE NCIHOLAS [place] : 1945 Age/S: 74 / M [address] [address] Unit #: [id number] Loc: [place] [address] Phys: Sapna Rosas MD Acct: [id number] Dis Date: Status: ADM IN PHONE #: [phone] Exam Date: 01/04/2020 0837 FAX #: Reason: cough EXAMS: CPT: [id number] XR CHEST 1 V 15614 Fluoro Time: DAP(Gy m2): Air Kerma (mGy): <Continued> Technologist: Anne-Marie Cuevas RT(R)(CT) Trnscb Date/Time: 01/04/2020 (0850) SimiR.RH16 Orig Print D/T: S: 01/04/2020 (0853) PAGE 2 Signed ReportBASIC METABOLIC [id number] 10:05:00 Test Item Value Reference Range Interpretation [...] code = CA) 7.4 MG/DL 8.5-10.1 L ISNCKQPII5684-30-55 10:05:00 Test Item Value Reference Range Interpretation Comments MAGNESIUM (test code = MAG) 1.7 MG/DL 1.8-2.4 L PROTHROMBIN [id number] 09:57:00 Test Item Value Reference Range Interpretation Comments PT PATIENT (test code = PTP) 11.5 SECONDS 9.3-12.9 N INTERNATIONAL NORMAL RATIO 1.02 INR Unit 0.8-1.2 N (test code = INR) CBC W/AUTO [id number] 09:50:00 Test Item Value Reference Range Interpretation [...] = MDIFF) - CT ABD PELVIS W/O JAII0537-66-61 10:46:00 [facility] : 1945 Sex: M Name: SHIRLENE NICHOLAS [facility] : 1945ge/S: 74 / M [address] [address] Unit #: [id number] Loc: [place] [address] Phys: Jason Rosa MD Acct: [id number] Dis Date: Status: ADM IN PHONE#: [phone] Exam Date: 01/02/2020 1001 FAX #: Reason:PEG placement planning EXAMS: CPT: [id number] CT ABD PELVIS W/O CONT 52531 EXAM: CT pelvis abdomen and without contrast [...] NICHOLAS : 1945 Age/S: 74 / M [address] [address] Unit #: [id number] Loc: [place] [address] Phys: Jason Rosa MD Acct: [id number] Dis Date: Status: ADM IN PHONE #: [phone] Exam Date: 01/02/2020 1004 FAX #: Reason: PEG placement planning EXAMS: CPT: [id number] CT ABD PELVIS W/O CONT 18014 <Continued> Evaluation of the bladder is limited, [...] NICHOLAS : 1945 Age/S: 74 / M [address] [address] Unit #: [id number] Loc: [place] [address] Phys: Jason Rosa MD Acct: [id number] Dis Date: Status: ADM IN PHONE #: [phone] Exam Date: 01/02/2020 1008 FAX #:Reason: PEG placement planning EXAMS: CPT: [id number] CT ABD PELVIS W/O CONT 86590 <Continued> at 1046 Reported and signed by: French Vazquez M.D. CC: Sapna Rosas MD; Jason Rosa MD; Morteza Arriaza MD Technologist:Viola Leger, RT(R) CTDI: DLP: Trnscb Date/Time: 01/02/2020 (1046) t.SDR.HPD Orig Print D/T: S: 01/02/2020 (8067) PAGE 3 Signed ReportCOVID 19 INHOUSE [id number] 13:50:00 Test Item Value Reference Range Interpretation Comments COVID 19 INHOUSE AG NEGATIVE Negative Per manu facturer, (test code = negative result s should [id number]) be treated aspr esumptive and, if inconsi [...] symptoms co nsistent with COVID-19. CBC W/AUTO [id number] 12:12:00 Test Item Value Reference Range Interpretation [...] NO DIFF/SCN CRITERIA = MDIFF) BASIC METABOLIC [id number] 12:12:00 Test Item Value Reference Range Interpretation [...] code = CA) 8.5 MG/DL 8.5-10.1 N DJRTZPQNMQQU6791-21-34 10:27:60705Aruawfxv SggaxzpTCJUDPJKDRLR9465-59-36 10:27:000.51[facility] SywoslxCXVFXXEQOYSY7707-47-54 10:27:0026[facility] LYYDUFQEJWYD0479-74-20 10:27:0097[facility] IrolsryILSZKLACTXVP8476-94-03 10:27:00 3.7[facility] AypionsDYBEETMGTFEE4263-35-93 10:27:007.8[facility] MMEKKZZGGCLS6998-69-07 10:27:69530Peudrkhi TsqxaytUGILTLTOHCPE8335-28-87 10:27:0012.7[facility] MyplinjITNZMMNQBCKQ3001-47-61 10:27:007[facility] AWPMOZWZHKNE6401-94-72 10:27:49857Afvenrwe HermannBACTERIAL - CRKPYPLY8912-32-77 15:36:00Negative (06/23/16 10:36 AM)[facility] HermannBODY USOCZK6072-68-61 15:36:0050[facility] HermannBODY HEDKDT7988-97-28 15:36:79312Xmvcbimr HermannBODY SVETQX8439-51-73 15:36:00Colorless (06/23/16 10:36 AM)[facility] HermannBODY FLUIDS 2016-06-23 15:36:00 Test Item Value Reference Range Interpretation Comments Tube Num CSF (test code = Tube Num CSF) 4 1 [facility] HermannBODY HSNPDW3426-23-88 15:36:40587Mcawevij HermannBODY FLUIDS 2016-06-23 15:36:00Clear (06/23/16 10:36 AM)[facility] HermannBODY JBGPHM5052-09-34 15:36:0073[facility] HermannBODY JPNUMT9921-10-52 15:36:00Colorless (06/23/16 10:36 AM)[facility] HermannBODY CIIELN0721-30-76 15:36:0082[facility] HermannBODY AVUCOA0045-67-36 15:36:005[facility] HermannBODY KPUWRW2116-15-71 15:36:0012 [facility]annBODY UFDXKE9016-65-75 15:36:001[facility] HermannIMMUNOLOGY 2016-06-23 15:36:00Non Reactive (06/23/16 10:36 AM)[facility] HermannVIRAL - ZVRXNPJU0724-47-97 15:36:00Negative (06/23/16 10:36 AM)[facility] HermannTOXICOLOGY 2016-06-23 14:34:302399Iipkjgtx WhqqptnBZMTKWNVED9217-69-14 14:34:0011.2[facility] HermannBACTERIAL - YLOTOCYH3282-76-47 09:34:00Urine *NA*(06/23/16 4:34 AM) [facility] HermannBACTERIAL - XCJDWMTM0600-94-75 09:34:00Negative (06/23/16 4:34 AM)[facility] FirnzraVLYGEBOOZMZP3950-84-49 09:20:68569Iislxfnt Damien IMINHGTIFLTR8884-52-49 09:20:0010[facility] YajigvuRWGHHPFLONLS7190-26-11 09:20:00 98[facility] VcabcxcZFFXQFPESLBF9326-14-30 09:20:000.68[facility] OLWHJDECWGDX9709-47-51 09:20:004.1[facility] SrzzlzbRFNLIYNIEQPE2794-22-42 09:20:0097[facility] SthaixqXQKFJSEADQKK5339-41-99 09:20:0017.1[facility] MEPPIXUSIYOB0293-78-43 09:20:007.9[facility] MxfaskuWNKWOASINVBD8426-88-98 09:20:0019[facility] YzwjwikCUCCYUKIGVLC0798-02-27 09:20:0098[facility] HermannCHEM WDDYY3160-51-65 09:19:0082[facility] HermannCHEM XZXMT2751-62-53 09:19:0012 [facility] HermannCHEM BKDWL5975-81-85 09:19:51291Qomortvc HermannCHEM PANEL 2016-06-22 09:19:000.67[facility] HermannCHEM GKWYJ2357-50-43 09:19:003.7[facility] HermannCHEM HRHRS1165-15-99 09:19:0098[facility] HermannCHEM HNXJA7443-72-68 09:19:0023[facility] HermannCHEM CLPQO3705-25-16 09:19:008.0[facility] HermannCHEM BBEFD3942-58-76 09:19:0097[facility] HermannCHEM JIVRZ1918-53-34 09:19:0015.7 [facility] JhdjeclJTFQJHENBW9760-67-43 09:19:009.6[facility] HermannHEMATOLOGY 2016-06-22 09:19:0097[facility] IrzwfusXBXBGHOGWS0410-46-97 09:19:008.3[facility] XdtyygeHNCQDOEYRK9031-29-27 09:19:004.78[facility] OzyyfajWZISAAWJJJ1140-29-63 09:19:0016.3[facility] RitxnfnUHQMGVCSXE3894-50-80 09:19:0034.0[facility] DCMBORDTAI8491-24-05 09:19:0013.7[facility] CujpqogDBRJVYGZUG3377-52-21 09:19:00 48.0[facility] JkyalwmFIHJLADFKT4395-78-60 09:19:33079.4[facility] HermannHEMATOLOGY 2016-06-22 09:19:00 Test Item Value Reference Range Interpretation Comments MCH (test code = MCH) 34.2 pg 27.0-31.0 [facility] WisshlzJXOMZOBPCN4224-32-06 09:19:001+ *ABN*(06/22/16 4:19 AM)[facility] DucbcwqFTMGKSANOR2217-70-08 09:19:001.0[facility] SfsvdkzOLUMJSWGIA7255-32-63 09:19:000.2[facility] LohdbsiVSSOZNJLUN8286-28-69 09:19:0012.1[facility] CSHKBYWZQW7809-49-33 09:19:005.5[facility] ThilcrqEELHQUOCRY6317-92-15 09:19:00 81.7[facility] NergboiKWFAKWPAIJ9460-16-18 09:19:000.5[facility] HermannHEMATOLOGY 2016-06-22 09:19:000.5[facility] TjjsqanJOENGBPVZG9888-23-73 09:19:006.8[facility] HhjjovuKBCNKMFVXM5432-21-18 08:24:0057.8[facility] HermannCHEM CHZJH3927-05-22 00:57:001.6[facility] HermannURINE AND LEIKS4569-29-09 22:17:00Negative *NA*(06/21/16 5:17 PM)[facility] HermannURINE AND BNFIJ6193-56-13 22:17:00Slight *ABN*(06/21/16 5:17 PM)[facility] HermannURINE AND VWLTB2916-09-69 22:17:005.0 [facility] HermannURINE AND ROMLU0829-24-91 22:17:001.023[facility] HermannURINE AND XMWZQ6597-29-91 22:17:00Yellow *NA*(06/21/16 5:17 PM)[facility] HermannURINE AND OSDUM7972-11-01 22:17:00Small *ABN*(06/21/16 5:17 PM)[facility] HermannURINE AND NEVPD4004-02-70 22:17:00Negative (06/21/16 5:17 PM)[facility] HermannURINE AND ZTGBX1583-56-44 22:17:00Negative (06/21/16 5:17 PM)[facility] HermannCARDIAC WOHTNWV6773-55-48 21:15:000.02[facility] HermannCARDIAC BXIVKKX4088-47-26 21:15:00 <0.5[facility] HermannCARDIAC NEETHWL9303-21-34 21:15:0049[facility] CARDIAC YSAZQVT2361-22-51 21:15:00<1.0[facility] HermannCHEM ZBFCE6499-53-05 21:15:0025[facility] HermannCHEM OOCTY5150-45-00 21:15:003.6[facility] HermannCHEM TJVXE6207-09-84 21:15:000.9[facility] HermannCHEM VAUVE8655-37-59 21:15:0056 [facility] HermannCHEM ZSRNY6110-74-64 21:15:0024[facility] HermannCHEM PANEL 2016-06-21 21:15:000.7[facility] HermannCHEM DOULS1293-98-93 21:15:003.2[facility] HermannCHEM EHCTR4192-68-99 21:15:0031[facility] HermannCHEM DBXUS6807-60-86 21:15:006.8[facility] RqdnfgsWYNYCAWZYL4132-14-86 21:15:00 Test Item Value Reference Range Interpretation Comments PT (test code = PT) 12.4 s 12.0-14.7 [facility] HlrhbsdUKJDBRFMFZ7934-24-05 21:15:000.91[facility] HermannHEMATOLOGY 2016-06-21 21:15:009.2[facility] ZerocjkFNVAESFXAT9805-46-26 21:15:0013.6[facility] VvqwljzOGMWKGYGTM7738-91-33 21:15:0016.4[facility] RprdnyeCGALYWMXKV8602-99-56 21:15:0034.3[facility] DpumpyzTOFWIUYVWD2296-49-15 21:15:0099[facility] DIMARFJTTU1338-51-13 21:15:0099.1[facility] JqfncstDSZAGTLAIS9483-32-21 21:15:00 Test Item Value Reference Range Interpretation Comments MCH (test code = MCH) 34.0 pg 27.0-31.0 [facility] HzwpvusVFNLUYADQV3940-54-58 21:15:0047.9[facility] HermannHEMATOLOGY 2016-06-21 21:15:0010.1[facility] YhnwsnvNIGNSIRTWO6881-39-98 21:15:004.83[facility] MtoblxxSFJMHGIERV9433-46-85 21:15:00 Test Item Value Reference Range Interpretation Comments PTT (test code = PTT) 28.2 s 22.9-35.8 [facility] WqxyllvRUBCSVYSYK8168-60-51 21:15:001.0[facility] HermannHEMATOLOGY 2016-06-21 21:15:0085.4[facility] QdmackrFJMQANAYVA3509-35-24 21:15:000.3[facility] AtjbotzJYGVIJRCEK4774-97-89 21:15:000.2[facility] UfkxdrqRRGPVMBBUS9229-37-64 21:15:0010.2[facility] CkowztsMCKILWIMSJ9818-20-07 21:15:003.9[facility] WYEQDJURJB0646-41-36 21:15:000.4[facility] YgpmqytTKJYKUYQEW6204-16-21 21:15:008.6 [facility] YzkowtuDSGZOCAEUK4141-43-77 21:15:00Normal (06/21/16 4:15 PM)[facility] TjfjiqxZMMLATJPNJ7475-31-86 21:15:00Normal (06/21/16 4:15 PM)[facility] NEQJK0211-03-92 21:15:00Negative (06/21/16 4:15 PM)[facility]annVIRAL - RFXTFUPR6229-79-38 21:15:00Negative (06/21/16 4:15 PM)[facility]annVIRAL - LMLLRUOR3657-49-49 21:15:00Negative (06/21/16 4:15 PM)[facility]annCHEM PANEL 2016-05-18 11:43:0092[facility]annCHEM VBOZZ0367-56-70 11:43:0049[facility]annCHEM VIEOJ4877-74-55 11:43:000.6[facility]annCHEM XYNDG5048-25-99 11:43:005.0[facility]annCHEM VHZGP6613-42-00 11:43:0023[facility]annCHEM QNOFW1803-02-98 11:43:0023[facility]annCHE[facility] RXDXB0042-46-41 11:43:002.5 [facility]annCHE[facility] CNQWH2400-85-72 11:43:002.5[facility]annCHEM PANEL 2016-05-18 11:43:001.0[facility]annCHEM HIFVQ0538-17-38 11:43:0021[facility]annCHEM LPOTB2917-15-17 11:43:0011[facility]annCHEM JYESH2878-89-81 11:43:000.76[facility]annCHEM ZMXJZ7659-67-94 11:43:0014.6[facility] [place] CHEM LRLBZ3348-22-80 11:43:008.0[facility]annCHEM MPYOS8081-72-46 11:43:003.6 [facility]annCHE[facility] POHEJ0017-50-44 11:43:92193Nkrywyrd HermannCHEM PANEL 2016-05-18 11:43:0095[facility]annCHEM IHDBC6786-02-11 11:43:67832Owhriecx HermannCHEM DCKPX9238-83-40 11:43:008[facility] ZycrzyjHFQIFJRAHJ5980-04-34 11:43:003.1[facility] BtimhggTHRNNNFKFJ1361-94-95 11:43:001.4[facility] ZEJJYUBQZH3357-45-58 11:43:003.2[facility] WffqjyiVCNJYUATBW5213-12-21 11:43:00 11.9[facility] CnlzxypBKJVKWCCDY6811-41-86 11:43:000.4[facility]annHEMATOLOGY 2016-05-18 11:43:001+ *ABN*(05/18/16 5:43 AM)[facility] DrzisxfBXJVSQUWKF3205-88-81 11:43:000.2[facility] FugrztdCZSZQZHRDI5109-72-31 11:43:000.6[facility] OYAKMOEYEP7467-45-24 11:43:0025.2[facility] ZywwhltQVGNPXIZBS3737-11-62 11:43:00 59.4[facility] XzsiogrTZLWKZIZSJ4512-35-54 11:43:003.95[facility]annHEMATOLOGY 2016-05-18 11:43:005.4[facility] JhblqhxVJZFIRSVGE6678-05-52 11:43:38884Qwksuisj UriwmhsRNAJVPSRWV4298-35-46 11:43:0014.1[facility] CifijbcLNAZRDSDWB3239-03-62 11:43:009.1[facility] CvvswbtYPSXHHWODS1089-86-64 11:43:90480.8[facility] TRUYDQGGSN6145-61-33 11:43:0033.5[facility] HzoqaqfMELNRWWEOG6294-15-73 11:43:00 Test Item Value Reference Range Interpretation Comments MCH (test code = MCH) 35.1 pg 27.0-31.0 [facility] JigqvdkTWEGSFBQSE3810-20-21 11:43:0041.3[facility]annHEMATOLOGY 2016-05-18 11:43:0013.9[facility]annCHEM IGBBB0556-12-12 00:40:001.2[facility] RuezrmvWTSCARFGTU6316-19-05 00:40:00<2.9[facility] NsctrxyJYJABWOJQH1724-03-69 19:08:009.3[facility] LicvczoYWBYCYNMEA2515-92-90 19:08:66245Huojtlyr [facility] SDZRXODNZY8922-05-47 19:08:0014.3[facility] WylugiaTSHWRJPZWM8824-77-95 19:08:00 34.4[facility] SdgkhomXGMKFUBJYP5606-55-68 19:08:0017.1[facility]annHEMATOLOGY 2016-05-17 19:08:004.78[facility] ViwtldwOEGTBKZBTD3988-47-99 19:08:008.4[facility] YtebpjoSNLMHWYZDL5699-43-41 19:08:00 Test Item Value Reference Range Interpretation Comments MCH (test code = MCH) 35.7 pg 27.0-31.0 [facility] QzpyqaaGNUDOFVQSX2288-77-23 19:08:91085.6[facility]annHEMATOLOGY 2016-05-17 19:08:0049.6[facility] QcgprtdZOMNUAABES0195-81-48 19:08:001+ *ABN*(05/17/16 1:08 PM)[facility] WrmnizrVSWCWRYJJC5475-53-44 19:08:000.9[facility] UzrpuhbSOCFMUUUWG2591-36-61 19:08:000.1[facility] TntvqssCQWNAVODFD4003-45-98 19:08:006.0[facility] UldulakESQGSWRAII4317-25-82 19:08:001.1[facility] UMSVOKJKKV3887-95-24 19:08:001.3[facility] SohveirNLIALQNRRG8093-83-59 19:08:000.5 [facility] FwpnehzCJHUURNYAX5944-68-06 19:08:0010.9[facility]annHEMATOLOGY 2016-05-17 19:08:0015.9[facility] BdkaqplLYUULYUVPE3331-72-34 19:08:0071.6[facility]annCHEM RWUNE1120-89-71 19:03:001.7[facility] OnrkjejFTQRRGEMMTPT1885-57-80 19:03:0018.3[facility] DgtzjexBTSMVULGELYN3740-64-26 19:03:006[facility] ICKPGTEWPZKJ0512-23-66 19:03:003.7[facility] QwydoekTAQYGDZUJDXE3831-72-89 19:03:001.0[facility] ZfnghseRYFZRZAZGTNQ3250-76-55 19:03:0032[facility] ZRRJFTQPBIFI0335-21-42 19:03:003.7[facility] MlwdvdrJUOFQFXAPMXM5980-51-53 19:03:0033[facility] KcdhtjhHMLGXSJCZIFM0487-77-92 19:03:0068[facility] FIOZFUNWSHMD7636-35-82 19:03:000.5[facility] OymkujpLQWBFZFYIAEK0592-77-93 19:03:50459Quoefoqt QmelpndAOVKRFCQBLLI5564-86-65 19:03:00395Rnnabate [place] VZXBDCLUMYOP7770-15-45 19:03:003.3[facility] ReqlnbtYJZBSMXFMEEM4699-60-13 19:03:008.8[facility] ZnftisvTFUEHGDPUZPR0781-87-33 19:03:0024[facility] HOSGHITRTVID7856-89-82 19:03:007.4[facility] YrtodyhQEYMTQUQSNTP7278-80-82 19:03:000.89[facility] GpqukkuWOUPWMKEYAQW1384-46-04 19:03:005[facility] NXVGBCDYXUCP5417-32-37 19:03:0089[facility] QspvxenOIFHDWFZETNK1950-25-78 19:03:00 87[facility]annCHEM OAKIN6981-41-81 19:27:0092[facility]annCHEM PANEL 2015-07-19 19:27:008.8[facility]annCHEM LGYOR9761-84-54 19:27:000.78[facility]annCHEM XNLXQ4375-19-01 19:27:80853Rcfrvebd HermannCHEM NLIII3045-77-05 19:27:81992Viathank HermannCHEM NIDWH9616-49-08 19:27:0019[facility]annCHEM YQDBQ3655-76-89 19:27:65684Bvtrzjto HermannCHEM CSUYK3177-82-34 19:27:004.5 [facility]annCHE[facility] ECJYR8349-82-43 19:27:0028[facility]annCHEM PANEL 2015-07-19 19:27:0011.5[facility] MaqcbymZQRZQWBYEA8772-37-75 19:27:001+ *ABN*(07/19/15 2:27 PM)[facility] RggkpanWSEQYMPAME3649-00-28 19:27:000.2[facility] CzvfnboRUJBBHUFUV1561-09-83 19:27:0011.8[facility] YpqeqcbUVVYBGBLDC7644-61-38 19:27:000.0[facility] DbmtpbeYLTKXSCJNH8284-67-81 19:27:000.4[facility] CZTCHGYOGB3881-53-23 19:27:001.4[facility] LtgtwdhNGOVOGUAAA9047-27-92 19:27:000.3 [facility] WqizfyqHRIFSYRVVM1187-79-42 19:27:002.0[facility] HermannHEMATOLOGY 2015-07-19 19:27:0093.2[facility] RrrgkpxNNWJIBXFEG4551-57-71 19:27:00Normal (07/19/15 2:27 PM)[facility] EelksjbVPQTVGWAHL3070-02-57 19:27:00Normal (07/19/15 2:27 PM)[facility] VisisysXOUXMZIZLK9410-99-14 19:27:000.0[facility] HermannHEMATOLOGY 2015-07-19 19:27:003.4[facility] CxorzquPZEWICFRVD2193-37-84 19:27:00 Test Item Value Reference Range Interpretation Comments MCH (test code = MCH) 32.9 pg 27.0-31.0 [facility] SesizwnTQJTMYOAHM6462-89-82 19:27:81291.1[facility]annHEMATOLOGY 2015-07-19 19:27:0032.6[facility] JmckvwqGUHSGFWXXB1427-99-11 19:27:0012.6[facility] JmjghxeLQUSNOWFGV9333-67-84 19:27:004.21[facility] RlnbsrwURYYFQFBEJ3271-36-99 19:27:0013.9[facility] GuyvajhCUOBZGUZNR5490-81-32 19:27:0042.6[facility] FQHYFUNJFD9530-60-83 19:27:008.4[facility] FbrteioJKGKLCGVAU9115-99-16 19:27:81413 [facility] CrjuhbuVTAQXMGEDF4514-88-08 19:27:0014.6[facility] HermannELECTROLYTES 2015-07-16 10:10:009.3[facility] WwwjopkYHOZVASFMZBB3989-37-30 10:10:0014[facility] JenjsfaEWFGCDFTZBTO1529-59-80 10:10:003.2[facility] MfbescmMYPIVOSVJTSN3294-76-44 10:10:000.9[facility] RgycxscVQMYIGDIZDIR9394-20-77 10:10:004.3[facility] BYLZTOICQAIP4506-06-27 10:10:90342Ezmuxiil KzkbcwpQNGTLCTFXZTQ1684-77-32 10:10:67609Ztrddkuf IimmrulHICGWKLJGTXO1192-42-78 10:10:0076[facility] OIJFKJSFKQYM2250-45-27 10:10:17793Kyrwtkpp BkjcwfuYEYFHXVAJQYH8917-78-06 10:10:0014[facility] BcxltzsUNOHFFJZYJAL9093-93-48 10:10:001.01[facility] OJVWJWSFMTPB2062-90-18 10:10:008.2[facility] CoeaqehIIIFBTPZONRJ7205-20-60 10:10:0028[facility] WaryploMBFFUZVZHMAR8772-49-15 10:10:003.0[facility] LTWEMYOANTTD7467-50-02 10:10:0029[facility] TssnhgsGESLXDQWPDMW3107-31-80 10:10:00 6.2[facility] YjdilhcDCEJLQUXAQAI1079-01-78 10:10:000.4[facility] JNJCIROOHKKD9789-34-87 10:10:0036[facility] JzphleqINEQXYTFLQEG3071-72-91 10:10:00 56[facility] YaraiycIQDXIUBFUS4977-70-86 10:10:002.3[facility] HermannHEMATOLOGY 2015-07-16 10:10:0010.4[facility] AralijlBDYIBJROUI4680-51-44 10:10:000.0[facility] XiponwjTYZSQQIELE2913-36-13 10:10:003.2[facility] TzvmzczYRMJEWRHVX8155-04-11 10:10:0094.5[facility] ZwmhgicXRRRWCDMHB1806-43-47 10:10:000.0[facility] LSZHNWUITU5407-33-93 10:10:000.0[facility] NflywbaRSOBGXCIRU8587-85-14 10:10:000.0 [facility] BwvnutdUZAZYAPIIB9691-28-92 10:10:000.3[facility] HermannHEMATOLOGY 2015-07-16 10:10:000.3[facility] MnaafhrWAKJMCZRQQ8870-71-46 10:10:0033.3[facility] PnfamrmDPMAKOCPEX9227-80-06 10:10:008.4[facility] GdxniueAXDYVLUQJC2721-79-79 10:10:76057Lvcgemax IdsoqnaEWICKIQJFR7447-36-59 10:10:00 Test Item Value Reference Range Interpretation Comments MCH (test code = MCH) 33.6 pg 27.0-31.0 [facility] TswuvckYWNIIMQMTO1865-52-38 10:10:0015.5[facility] HermannHEMATOLOGY 2015-07-16 10:10:0013.6[facility] GhpakneZJTJXKTFRE8578-44-52 10:10:004.05[facility] MyrwoiiVYBDGGSZDQ8344-48-30 10:10:58940.9[facility] MikwtoxVQAATVKHTU4760-14-93 10:10:0040.9[facility] XjnfztnVCSDJAQXGI5484-22-32 10:10:0011.0[facility] CHEM NYCDD7529-11-90 23:15:0014[facility]annCHEM CDTUW7660-80-80 23:15:47491 [facility]annCHEM NXXZL3206-40-07 23:15:70439Vwfkkxdr HermannCHEM PANEL 2015-07-15 23:15:80818Zkyjfjov HermannCHEM EJJQO6275-52-36 23:15:004.1[facility]annCHEM MMDYC0731-91-15 23:15:0025[facility]annCHEM CVCQA5186-38-43 23:15:003.5[facility]annCHEM JDITK9117-38-83 23:15:008.9[facility]annCHEM BAYNM5713-19-64 23:15:0063[facility]annCHEM FDRFG6045-48-06 23:15:0035 [facility]annCHE[facility] IKGXQ4692-83-86 23:15:001.17[facility]annCHEM PANEL 2015-07-15 23:15:0040[facility]annCHEM GCULE1542-15-17 23:15:007.0[facility]annCHEM DAABG0662-10-53 23:15:0066[facility]annCHEM KEUIK4612-72-61 23:15:000.4[facility]annCHEM FJOJV4356-67-76 23:15:0015.1[facility]annCHEM RMKRK3923-89-83 23:15:003.5[facility]annCHEM AZDPM8952-79-37 23:15:001.0 [facility]annCHEM UALPC0477-25-07 23:15:0012[facility]annHEMATOLOGY 2015-07-15 23:15:000.98[facility] LqchefwBCNYXQAEEB6911-42-93 23:15:00 Test Item Value Reference Range Interpretation Comments PT (test code = PT) 13.3 s 12.0-14.7 [facility] GuxfxbiVKZWTQAVUE7314-75-83 23:15:25255Tmgfegna HermannHEMATOLOGY 2015-07-15 23:15:008.1[facility] AcwqeopDEBRCVGZPU6896-65-16 23:15:0045.9[facility] WhbycixUYFGYHPZIY5449-57-77 23:15:0032.4[facility] SvqeaqgPEYDWTAYVN2739-88-68 23:15:0015.2[facility] TzezvnnWZQCDTZNZQ3012-07-07 23:15:07959.9[facility] HTZUDJGVZW4088-48-21 23:15:00 Test Item Value Reference Range Interpretation Comments MCH (test code = MCH) 33.0 pg 27.0-31.0 [facility] HqlallxJJTOEWJQLO0740-44-78 23:15:0017.8[facility] HermannHEMATOLOGY 2015-07-15 23:15:004.51[facility] QujyjwjJBBSIEPSJG3968-21-60 23:15:0014.9[facility] LcbvsncSQOVCQSGBV4735-95-56 23:15:001.1[facility] PgletosBSBTQCGNHM7271-89-92 23:15:000.0[facility] WmwxnvnXBBEZHEYZO4451-54-11 23:15:0015.4[facility] TWCGFSXBBI0688-10-21 23:15:001.4[facility] FpykjhxFMONKPEQFL3760-69-55 23:15:000.0 [facility] RbvcaacHOOYJYQBGL3771-25-90 23:15:000.0[facility] HermannHEMATOLOGY 2015-07-15 23:15:000.1[facility] YastrqtDGZJUEZJKH6278-46-43 23:15:001+ *ABN*(07/15/15 6:15 PM)[facility] YxqovgiRXFRDTGUNJ9486-95-33 23:15:006.0[facility] BwibumiTHNNNUFSTF2376-98-13 23:15:00Normal (07/15/15 6:15 PM)[facility] VPZZVYJRQF3145-18-29 23:15:00Normal (07/15/15 6:15 PM)[facility]annHEMATOLOGY 2015-07-15 23:15:007.7[facility] BnygovrSBLBHYBWQG0413-78-88 23:15:0086.2[facility]annCHEM BBQHG1259-49-67 10:30:0088[facility]annCHEM AKIGN2333-38-44 10:30:0011.4[facility]annCHEM ISITP5479-36-60 10:30:008.9[facility]annCHEM NXJHV2507-26-63 10:30:0028[facility]annCHEM FIEAF4185-31-79 10:30:0010 [facility]annCHE[facility] OGOPH1616-47-34 10:30:000.87[facility]annCHEM PANEL 2015-07-14 10:30:67638Ywagcdmr HermannCHEM VTJYH1440-07-30 10:30:02398Ouanljmc HermannCHEM TUBPJ3657-94-76 10:30:004.4[facility]annCHEM BVNOG6044-40-53 10:30:97275Msjlcrqu AusfndoLDZUUOCVRG0663-87-46 10:30:000.0[facility] CEXOZSOZOI3637-23-18 10:30:000.0[facility] PfsuqkyCKEIUSGEVT3897-44-96 10:30:000.1 [facility] YcrdsfiIDKJMGHPCZ5799-48-96 10:30:001.9[facility] HermannHEMATOLOGY 2015-07-14 10:30:0092.6[facility] XdxrcxqGYNPLYRGOF9661-29-20 10:30:005.5[facility] AbrrhseRIBPVWBFSI3226-31-61 10:30:000.0[facility] SfxrvwbDLZXWLIHEK4948-24-82 10:30:000.0[facility] FtzfspmJEMSRXORZK4967-46-12 10:30:005.1[facility] PNBRXDSQDZ5066-43-74 10:30:000.3[facility] FiyrwxnUTZNNGAZQK5527-23-19 10:30:00 100.8[facility] ChhyoxnUEDUQYDEKQ6700-69-80 10:30:51443Dwbzglvy HermannHEMATOLOGY 2015-07-14 10:30:008.1[facility] AeqhjpgGZGXMEWNBI1860-14-63 10:30:0014.9[facility] QuggbjwFNANAFTUQB1130-61-93 10:30:0013.6[facility] DdlcsyeFPNSIHFZIL7043-99-77 10:30:004.11[facility] CzedqfxNCMZVGYHXI2428-01-61 10:30:0041.5[facility] AVQCYXPAAM8923-71-82 10:30:005.5[facility] OrxerurYBADIJLREM4311-11-43 10:30:00 Test Item Value Reference Range Interpretation Comments MCH (test code = MCH) 33.0 pg 27.0-31.0 [facility] TrbzfgxTPHGZVQONR5910-95-18 10:30:0032.7[facility] HermannCHEM PANEL 2015-07-14 01:11:0093[facility]annCHEM ZQZFH4266-58-23 01:11:000.76[facility] BxoylbaNZNWAINSKP5536-56-19 01:11:24019Sptxmocj BemdfrmFRKQSCWHDO1865-75-89 01:11:00 Test Item Value Reference Range Interpretation Comments PTT (test code = PTT) 26.6 s 22.9-35.8 [facility]annCARDIAC EPQKTMP1525-50-50 21:04:0070[facility] HermannCARDIAC KTKJKYD1023-92-90 21:04:00<0.02[facility] HermannCARDIAC OAKKXTI0336-50-36 21:04:001.7[facility] HermannCARDIAC UAZHXKI6868-94-52 21:04:002.4[facility] CHEM KPDDQ6576-01-73 21:04:0028[facility]annCHEM IOXYA3093-05-46 21:04:0030 [facility]annCHEM BKXLL0395-47-94 21:04:003.0[facility]annCHEM PANEL 2015-07-13 21:04:006.6[facility]annCHEM DZIHN6982-15-11 21:04:008.8[facility]annCHEM SUJZX4438-11-46 21:04:003.6[facility]annCHEM VOUVW5068-77-84 21:04:006[facility]annCHEM CHUHS6711-77-10 21:04:0011.8[facility]annCHEM BYFBZ9374-64-67 21:04:000.4[facility]annCHEM JRQRG9071-81-71 21:04:0065 [facility]annCHEM NZIGP9477-45-42 21:04:005[facility]annCHEM PANEL 2015-07-13 21:04:67178Hkdjgvif HermannCHEM BGUCT8720-52-31 21:04:0029[facility]annCHEM BMOTI4087-10-58 21:04:94830Vranvlng HermannCHEM USQUE3180-35-43 21:04:003.8[facility]annCHEM OCYBH6413-08-28 21:04:54264Fmdpyqdv HermannCHEM USXOR5933-58-00 21:04:000.80[facility]annCHEM JECUU7628-22-81 21:04:000.8 [facility]annCHEM XDTAE7556-33-57 21:04:0091[facility]annHEMATOLOGY 2015-07-13 21:04:008.5[facility] VopdnioFUWCYFVJXB1524-02-37 21:04:0015.2[facility] TktnaafLFGBXRBWMO8910-37-06 21:04:58968Puctlfqm YfywjveDMZUOMEPPQ6599-14-11 21:04:0033.1[facility] BphqnssQZLNWEMUAA4475-77-64 21:04:005.8[facility] FDMQIXBPIQ0762-58-34 21:04:0099.9[facility] QxvaeqzVKRPTUGITE1856-74-15 21:04:00 Test Item Value Reference Range Interpretation Comments MCH (test code = MCH) 33.0 pg 27.0-31.0 [facility] TkfyawhKMHUQREMNC5289-36-20 21:04:0042.8[facility]annHEMATOLOGY 2015-07-13 21:04:004.28[facility] BrvrinlWGIWMLTEYW5813-58-13 21:04:0014.2[facility] KkvwfehNOLATGRPAE4964-93-51 21:04:005.8[facility] VzteitoVTBXRSPXDN8637-86-89 21:04:000.0[facility] VzzztooCUIKZKJLOZ1921-52-00 21:04:0010.7[facility] XKFFDIRDQE6959-07-24 21:04:000.3[facility] DpyheklKLEQZBEFGM2819-12-95 21:04:000.6 [facility] BhzkymxOELLDVNIUZ5240-12-99 21:04:000.0[facility]annHEMATOLOGY 2015-07-13 21:04:0083.4[facility] OdjdiamZTAWGZXEHY7792-34-69 21:04:004.8[facility] SkliitoQOXAIUQIAN1356-10-14 21:04:000.1[facility] UsbvmgvYPPQNSUQZI0010-11-10 21:04:000.0[facility]annCHEM GJCYE1661-24-08 10:54:002.2[facility]annCHEM JSPKL9654-35-14 10:54:0091[facility]annCHEM TADOR7428-62-19 10:54:003.1 [facility]annCHEM FRHSW4401-48-47 10:54:000.9[facility]annCHEM PANEL 2015-05-06 10:54:45382Dtvuetqx HermannCHEM XCYMZ3570-34-48 10:54:000.3[facility]annCHEM PPHWS8696-87-76 10:54:0014.1[facility]annCHEM YSHIH8070-90-75 10:54:0025[facility]annCHEM LDSIN1858-60-32 10:54:000.79[facility]annCHEM VYAAB8900-14-35 10:54:0020[facility]annCHEM GXNSQ8505-09-76 10:54:0025 [facility]annCHEM XGLTN4528-65-89 10:54:008.4[facility]annCHEM PANEL 2015-05-06 10:54:006.0[facility]annCHEM RVAQS5042-78-85 10:54:002.9[facility]annCHEM QMVCN5477-93-03 10:54:0074[facility]annCHEM KHFPY3733-40-32 10:54:0022[facility]annCHEM BDQSA6147-68-68 10:54:0046[facility]annCHEM UYIRZ0899-64-80 10:54:004.1[facility]annCHEM RXRKH9424-09-49 10:54:03794 [facility]annCHEM YVHLU0768-85-69 10:54:24593Haixauvj HermannHEMATOLOGY 2015-05-06 10:54:0014.1[facility] SreksmjQWCCOMLCAN9872-96-10 10:54:004.17[facility] ZukrqenWMZIBNBZTU3471-47-13 10:54:0013.8[facility] RctzrskGRSUMXKWKQ0327-12-44 10:54:0033.5[facility] YbfcfemEFOAHSICPI9012-08-10 10:54:008.9[facility] WKUGOKRYHH5066-22-22 10:54:91421Xwtcehva FbjxkahHDSCKLAHVC3177-56-28 10:54:00 13.0[facility] BuxtltsRZWXQNBUQW3358-05-49 10:54:0042.0[facility]annHEMATOLOGY 2015-05-06 10:54:00 Test Item Value Reference Range Interpretation Comments MCH (test code = MCH) 33.8 pg 27.0-31.0 [facility] BlrzwxrWOQSFEYXVY1793-25-71 10:54:07585.7[facility]annCHEM PANEL 2015-05-04 23:48:0072[facility]annCHEM TWUUR3105-34-33 23:48:001.05[facility]annCHEM AORGM7740-88-70 23:48:34775Tzlzuodo HermannCHEM BKRCK8096-12-94 23:48:0022[facility]annCHEM GBSVX1100-72-82 23:48:80506Ofsyclfv HermannCHEM VOQRY7159-42-81 23:48:008.7[facility]annCHEM QJRPP7290-34-75 23:48:0029 [facility]annCHEM ZAOXW4011-01-29 23:48:004.3[facility]annCHEM PANEL 2015-05-04 23:48:82309Yjqhrkzf HermannCHEM PNWEM3206-09-99 23:48:0011.3[facility] FxytvyzZDVHHQKSJB0753-14-49 23:48:0045.4[facility] ZdxzscdNNKZFUIQCL4311-90-29 23:48:00 Test Item Value Reference Range Interpretation Comments MCH (test code = MCH) 33.8 pg 27.0-31.0 [facility] LvqwkemEAVNFFTGBV2671-71-87 23:48:36241.0[facility] HermannHEMATOLOGY 2015-05-04 23:48:008.7[facility] XeemrrjPGEQHRSOME4520-48-93 23:48:0033.5[facility] GxoajhvPMHXZTIOMP3585-81-62 23:48:0015.2[facility] IppftaoOOAEHYUNSV4058-76-67 23:48:004.50[facility] PcpqufuGBVLXSULJM2144-10-31 23:48:0012.5[facility] VEDHGEYNHP9523-16-89 23:48:58317Zujnvzyh VhvrozuHIWHZQPOZT3417-42-59 23:48:00 14.0[facility] PdgfmrkSVIUEKXMLLPZ7893-51-25 19:10:0088[facility] AYQSXTJEYAWC5156-19-44 19:10:34129Ewcmlpvd UsirfruMSYMDHKKXMCX2738-72-66 19:10:0027[facility] OndeydgIXJZFXIVFJEC2157-23-57 19:10:008.9[facility] EVQMTTYHFUNH5307-92-41 19:10:0010[facility] AqjjdrfAVDOYPWXOXTR9738-85-66 19:10:00 0.9[facility] VdxycwhOKVNOTCVDX8317-62-24 19:10:000.6[facility] HermannHEMATOLOGY 2013-05-16 19:10:000.1[facility] OfrmotkWOYZSJAUUG0244-64-56 19:10:000.0[facility] MgqjileDNUFSAUZZB0079-89-24 19:10:001.6[facility] UqsaiacPIHJXXYQGV3512-91-18 19:10:007.2[facility] OydtyedSJQYTCRHLM8020-64-22 19:10:006.2[facility] TPTJSTAXJP6398-55-27 19:10:000.2[facility] EkcleclDPSCFRFNUC6059-40-06 19:10:001.1 [facility] RjlfkwmWYLYKCIOBD4911-62-66 19:10:0014.2[facility] HermannHEMATOLOGY 2013-05-16 19:10:0076.8[facility] StdfjizPKIHOEXJNS8197-55-57 19:10:0098.1[facility] SdjutsbNHPAPGUJVR9627-92-05 19:10:0013.9[facility] QdzjcqqTZPQDFGXAS5286-39-47 19:10:00 Test Item Value Reference Range Interpretation Comments MCH (test code = MCH) 33.3 pg 27.0-31.0 [facility] XwdrrdsJVYWJPECCH0564-49-79 19:10:0040.9[facility] HermannHEMATOLOGY 2013-05-16 19:10:0034.0[facility] JnpvpbhMSHCKLULAV8453-10-37 19:10:81609Urbrnhwq TqtdngqOWLYWEBKFH8897-38-48 19:10:0013.7[facility] WanbygjQRTVKTGOGJ0420-48-88 19:10:008.9[facility] WppiaifWKRVRBVTGZ3108-25-17 19:10:004.17[facility] WSGRJJECQN3641-57-11 19:10:008.0[facility] CavwbbxOSTSDGQQTLAJ4574-85-38 19:10:00 11.8[facility] NdjshyeNFKMUFJQJIFU3270-19-89 19:10:87240Hdayjpvu [place] CQFXGYDMMXSA3867-86-11 19:10:03663Drsqxvav FepikmoGBTKSFRAAXKE1855-30-75 19:10:003.8[facility] FaammgjLCLLUGHMWO9005-53-92 08:55:40Slight *ABN*(09/12/2012 03:55:40)[facility] DpcwmucCOJLBOLYLZ5702-08-56 08:55:40Slight *ABN*(09/12/2012 03:55:40)[facility] SeajkmlLZFVEYOFFR0529-71-35 08:55:40Slight *ABN*(09/12/2012 03:55:40)[facility] KkuhbcuVUCPNVGTON1204-78-24 08:55:400.0[facility] HSMJXWKGPF0218-70-59 08:55:401+ *ABN*(09/12/2012 03:55:40)[facility] WTGSBTGDUE1439-80-82 08:55:400.5[facility] IxctbmuJTBYNJBUVY2495-42-28 08:55:400.0 [facility] BzceercMTHYGXDTCF7093-69-91 08:55:400.8[facility] HermannHEMATOLOGY 2012-09-12 08:55:404.6[facility] NlacgowTGECRSAHEC7499-68-75 08:55:403.1[facility] FptdehcSBCBDBNWTA0737-09-24 08:55:4015.4[facility] DdlidcyYRBTVSYZCK5841-54-76 08:55:400.0[facility] KuyewctZRIUKZAVGO8107-86-02 08:55:400.0[facility] KSRSGCHWPP3172-85-57 08:55:40Normal (09/12/2012 03:55:40)[facility] VNVWPNXPED3637-54-81 08:55:4092.3[facility] TeubzwiWPHARFOIZL8483-79-27 08:55:40 0.0[facility] WequyqrDXGCZVOVFW3611-39-10 08:55:409.3[facility] HermannHEMATOLOGY 2012-09-12 08:55:4040.0[facility] KwtqjspATMYYQLLJF7665-71-78 08:55:4097.4[facility] YassqjdRQREJVWXQB3362-24-22 08:55:40 Test Item Value Reference Range Interpretation Comments MCH (test code = MCH) 32.4 pg 27.0-31.0 H [facility] PccjygcSINZLOVQEQ9436-93-32 08:55:4013.3[facility] HermannHEMATOLOGY 2012-09-12 08:55:4016.7[facility] NonojdeQBDFNYHQNX3430-36-52 08:55:404.11[facility] PrrkylaGFIIJSEOQH1279-95-62 08:55:4033.3[facility] WhvflwxSZOQWZNHIL6478-19-12 08:55:4015.0[facility] MqwhsujKFKEUTAUAL2403-34-12 08:55:28711Jwpdywzu [place] EZSVUBUPJ5227-08-15 17:30:0078[facility] JzcebxrBTZOHJOEQ0915-87-61 17:30:22597 [facility] GmmpxqaIMIPHFBOW8110-56-71 17:30:0027[facility]annCHEMISTRY 2012-09-11 17:30:001.0[facility] HercgzkSRFOEYWAW7100-60-28 17:30:009.0[facility] TrffbypYQRRVBRIR1490-07-53 17:30:10385Nrqzhetx BpgwpooLJGUXTTHT1840-87-28 17:30:004.4[facility] JwupokeZWFSHXYYH7094-82-95 17:30:0015[facility] RNFUPYNEN4137-96-18 17:30:76684Kugzajam UxqbfhbGFKJQFVXS2961-73-07 17:30:0014.4 [facility] WrxmnlmZJQUDPFLZD6996-40-05 17:30:0014.7[facility]annHEMATOLOGY 2012-09-11 17:30:0096.9[facility] BdaccopJWFAJPEURM2273-49-55 17:30:0043.9[facility] UlwcrmcOGGRMQSVJF6481-51-65 17:30:0033.4[facility] HcwmreaRZACCJPSOU0255-96-62 17:30:00 Test Item Value Reference Range Interpretation Comments MCH (test code = MCH) 32.4 pg 27.0-31.0 H [facility] ZoywktpZQFCTGSZDA2820-20-85 17:30:0015.1[facility]annHE[facility]OLOGY 2012-09-11 17:30:66547Nwiuamay WjeujzxPHBMKJYGTJ5393-60-71 17:30:009.5[facility] GjkwomnDPTDBODBFF2494-24-57 17:30:0018.4[facility] WnehmtbYUQKTPJBKF4856-10-76 17:30:004.53[facility] OajxkyxJSNEBPDSSG0143-31-27 17:30:000.0[facility] BWTLVDWXFG0848-88-02 17:30:000.0[facility] TvgbsjrGCZMRULNVI5236-06-30 17:30:000.6 [facility] BixztbfATFFNIQNNJ1395-94-79 17:30:003.2[facility]annHEMATOLOGY 2012-09-11 17:30:0017.1[facility] TejqpscYPLEPLRPHQ8698-19-71 17:30:000.7[facility] MxdrdzzROZIMVNWKL3979-90-13 17:30:000.0[facility] VyxpbirUFMPJPVUOU8954-16-11 17:30:000.0[facility] BurcjskVRQRHPNJSN5477-12-57 17:30:0092.9[facility] FJXIDZFOBI8131-60-35 17:30:00Normal (09/11/2012 12:30:00)[facility] WQGYOYLRHB7220-73-44 17:30:003.9[facility] XdihkceXGWLPIFNXH3232-51-12 17:30:00 Normal (09/11/2012 12:30:00)[facility]
[2020-08-01] MEDS ORDERED: Levofloxacin500mg IV 500 MG/100 ML BAG IV ONE (18:53)
[2020-08-01] MEDS ORDERED: METHYLPREDNISOLONE 125 MG INJ ONE (18:53)
[2020-08-01 19:00] LABS: Absolute Lymphocytes (CBC) 0.6 K/uL (0.7-4.9); Basophils % 0.5 % (0-1.3); Hematocrit 40.3 % (39.6-49.0); Lymphocytes % 7.5 % (15.3-44.8); MPV 9.4 fL (7.6-11.3); RBC Red Blood Cell Count 4.05 M/uL (4.33-5.43)
--- NOTE | 2020-08-01 19:00 | RAD REPORT ---
EXAM DESCRIPTION: RAD - Chest Single View - 08/01/2020 6:46 pm CLINICAL HISTORY: DYSPNEA Chest pain. COMPARISON: Chest Single View dated 07/06/2020; Chest Single View dated 06/25/2020; Chest Single View dated 06/16/2020; Chest Pa And Lat (2 Views) dated 05/07/2020 FINDINGS: Portable technique limits examination quality. The lungs are mildly emphysematous but grossly clear. The heart is normal in size. No displaced fract ures. IMPRESSION: No acute intrathoracic process suspected.
--- NOTE | 2020-08-01 19:01 | ER ---
Nurse's Notes [facility] Name: Bossman Gooden Age: 75 yrs Sex: Male : 1945 Arrival Date: 08/01/2020 Time: 18:14 Bed 5 Private MD: Diagnosis: Acute and chronic respiratory failure with hypoxia;Chronic obstructive pulmonary disease with (acute) exacerbation Presentation: 08/01 18:18 Chief complaint: EMS states: increasing SOB over the past few days. on arrival pt is on tr6 bipap sat 100%. pt baseline wears 3L NC at home. Coronavirus screen: At this time, unable to obtain information related to travel outside the [place] Ebola Screen: Patient negative for fever greater than or equal to 101.5 degrees Fahrenheit, and additional compatible Ebola Virus Disease symptoms Patient denies exposure to infectious person. Patient denies travel to an Ebola-affected area in the 21 days before illness onset. Initial Sepsis Screen: Does the patient meet any 2 criteria? RR > 20 per min. No. Patient's initial sepsis screen is negative. Does the patient have a suspected source of infection? No. Patient's initial sepsis screen is negative. Risk Assessment: Do you want to hurt yourself or someone else? Patient reports no desire to harm self or others. Onset of symptoms is unknown. 18:18 Method Of Arrival: EMS: [facility] tr6 18:18 Acuity: GUANACO 2 tr6 Triage Assessment: 18:24 General: Appears distressed, uncomfortable, slender, Behavior is cooperative, anxious. tr6 Pain: Denies pain. Neuro: No deficits noted. Respiratory: Airway is patent Respiratory effort is labored, using tripod position, Respiratory pattern is symmetrical, Patient placed on BiPAP: Breath sounds are diminished Breath sounds with wheezes the patient has severe shortness of breath. GI: Abdomen is flat, non-distended, PEG tube placed. : No deficits noted. Derm: No deficits noted. Musculoskeletal: No deficits noted. Historical: - Home Meds: 18:24 Levofloxacin Oral 500 mg [Active]; doxepin hydrochloride [Active]; Ventolin Nebulizer tr6 [Active]; prednisone 10 mg Oral tab once daily [Active]; - PMHx: 18:24 COPD; Hypertension; esophageal cancer; tr6 - Immunization history:: Adult Immunizations up to date. - Social history:: Smoking status: unknown. Screenin:29 Abuse screen: Denies threats or abuse. Denies injuries from another. Nutritional tr6 screening: No deficits noted. Tuberculosis screening: No symptoms or risk factors identified. Fall Risk None identified. Assessment: 18:57 Reassessment: see triage assessment. Cardiovascular: Rhythm is sinus rhythm. tr6 19:20 Reassessment: Patient appears in no apparent distress at this time. Patient and/or jb4 family updated on plan of care and expected duration. Pain level reassessed. Patient is alert, oriented x 3, equal unlabored respirations, skin warm/dry/pink. Respiratory: Breath sounds with wheezes bilaterally. 20:10 Reassessment: attempted to call report, instructed to wait for call back due to jb4 situation on the floor. 20:30 Reassessment: Patient appears in no apparent distress at this time. Patient and/or jb4 family updated on plan of care and expected duration. Pain level reassessed. Patient is alert, oriented x 3, equal unlabored respirations, skin warm/dry/pink. 21:30 Reassessment: Patient appears in no apparent distress at this time. Patient and/or jb4 family updated on plan of care and expected duration. Pain level reassessed. Patient is alert, oriented x 3, equal unlabored respirations, skin warm/dry/pink. 22:55 Reassessment: Patient appears in no apparent distress at this time. Patient and/or jb4 family updated on plan of care and expected duration. Pain level reassessed. Patient is alert, oriented x 3, equal unlabored respirations, skin warm/dry/pink. Vital Signs: 18:18 BP 144 / 83; Pulse 97; Resp 23; Pulse Ox 100% on BiPAP; Weight 63.05 kg; Height 6 ft. tr6 (182.88 cm); 18:30 BP 126 / 74; Pulse 94; Pulse Ox 100% on BiPAP; tr6 20:00 BP 113 / 64; Pulse 89; Resp 17; Pulse Ox 100% on 30% BiPAP; jb4 21:00 BP 111 / 63; Pulse 93; Resp 24; Pulse Ox 99% on 30% BiPAP; jb4 22:00 BP 115 / 60; Pulse 77; Resp 15; Temp 99.4(TE); Pulse Ox 99% on 30% BiPAP; jb4 18:18 Body Mass Index 18.85 (63.05 kg, 182.88 cm) tr6 ED Course: 18:14 Patient arrived in ED. em1 18:18 Betsy Gonzalez, YULISA is Primary Nurse. tr6 18:22 Triage completed. tr6 18:22 Taiwo Saunders PA is PHCP. jr8 18:22 Yoni García MD is Attending Physician. jr8 18:29 Patient has correct armband on for positive identification. Fall risk band placed. tr6 Placed in gown. Bed in low position. Call light in reach. Side rails up X2. 18:29 monitor worker on. Pulse ox on. NIBP on. Door closed. Noise minimized. Lights dimmed. tr6 Moved to private room. Warm blanket given. Verbal reassurance given. Head of bed elevated. 18:29 No provider procedures requiring assistance completed. Maintain EMS IV. Dressing tr6 intact. Good blood return noted. Site clean \T\ dry. Gauge \T\ site: 20 Right wrist. 18:45 Inserted saline lock: 22 gauge in left wrist, using aseptic technique. hb 18:46 XRAY Chest (1 view) In Process Unspecified. EDMS 19:01 Noah Duarte is Hospitalizing Provider. jr8 22:31 Patient admitted, IV remains in place. jb4 Administered Medications: 18:55 Drug: SOLU-Medrol (methylPrednisoLONE) 125 mg Route: IVP; Site: right wrist; tr6 19:30 Follow up: Response: No adverse reaction jb4 18:55 Drug: LevaQUIN (levofloxacin) 500 mg Volume: 100 ml; Route: IVPB; Infused Over: 60 tr6 mins; Site: right wrist; 19:55 Follow up: Response: No adverse reaction; IV Status: Completed infusion; IV Intake: jb4 100ml 19:37 Drug: Albuterol - atroVENT (ipratropium) (3:1) (2.5 mg - 0.5 mg) 3 ml Route: Nebulizer; jb4 20:00 Follow up: Response: No adverse reaction; Marked relief of symptoms jb4 Intake: 19:55 IV: 100ml; Total: 100ml. jb4 Outcome: 19:01 Decision to Hospitalize by Provider. jr8 22:30 Admitted to Med/surg accompanied by mary via stretcher, room 225, with oxygen, with jb4 chart, Report called to YULISA Rod 22:30 Condition: stable 22:30 Discharge instructions given to patient, Instructed on the need for admit, Demonstrated understanding of instructions. 22:56 Patient left the ED. jb4 Signatures: Dispatcher [employer] EDMS Henri Nj em1 Taiwo Saunders PA PA jr8 Shirin Hsu RN Maik Martins RN RN jb4 Betsy Gonzalez RN RN tr6 Corrections: (The following items were deleted from the chart) 22:30 22:29 BP 115 / 60; Pulse 77bpm; Resp 15bpm; Pulse Ox 99% 02 30% BiPAP; jb4 jb4
--- NOTE | 2020-08-01 19:02 | EDPHYS ---
Physician Documentation [facility] Name: Bossman Gooden Age: 75 yrs Sex: Male : 1945 Arrival Date: 08/01/2020 Time: 18:14 Bed 5 Private MD: ED Physician Yoni García HPI: 08/01 18:38 This 75 yrs old Male presents to ER via EMS with complaints of shortness of jr8 breath. 18:38 The patient has shortness of breath at rest. Onset: The symptoms/episode began/occurred jr8 gradually, 2 day(s) ago. 18:59 Duration: The symptoms are continuous, and are markedly worse than the original jr8 presentation. The patient's shortness of breath is aggravated by talking, walking. Associated signs and symptoms: Pertinent positives: productive cough. Severity of symptoms: At their worst the symptoms were moderate. It is unknown whether or not the patient has had similar symptoms in the past. The patient has not recently seen a physician. Historical: - Home Meds: 18:24 Levofloxacin Oral 500 mg [Active]; doxepin hydrochloride [Active]; Ventolin Nebulizer tr6 [Active]; prednisone 10 mg Oral tab once daily [Active]; - PMHx: 18:24 COPD; Hypertension; esophageal cancer; tr6 - Immunization history:: Adult Immunizations up to date. - Social history:: Smoking status: unknown. ROS: 18:59 Eyes: Negative for injury, pain, redness, and discharge, ENT: Negative for injury, jr8 pain, and discharge, Neck: Negative for injury, pain, and swelling, Cardiovascular: Negative for chest pain, palpitations, and edema, Abdomen/GI: Negative for abdominal pain, nausea, vomiting, diarrhea, and constipation, Back: Negative for injury and pain, MS/Extremity: Negative for injury and deformity, Skin: Negative for injury, rash, and discoloration, Neuro: Negative for headache, weakness, numbness, tingling, and seizure. 18:59 Respiratory: Positive for cough, dyspnea on exertion, shortness of breath, wheezing, expiratory. Exam: 18:59 Cardiovascular: Regular rate and rhythm with a normal S1 and S2. No gallops, murmurs, jr8 or rubs. Normal PMI, no JVD. No pulse deficits. Abdomen/GI: Soft, non-tender, with normal bowel sounds. No distension or tympany. No guarding or rebound. No evidence of tenderness throughout. Back: No spinal tenderness. No costovertebral tenderness. Full range of motion. Skin: Warm, dry with normal turgor. Normal color with no rashes, no lesions, and no evidence of cellulitis. MS/ Extremity: Pulses equal, no cyanosis. Neurovascular intact. Full, normal range of motion. Neuro: Awake and alert, GCS 15, oriented to person, place, time, and situation. Cranial nerves II-XII grossly intact. Motor strength 5/5 in all extremities. Sensory grossly intact. 18:59 Constitutional: The patient appears alert, awake, in obvious distress, moderately distressed. 18:59 Respiratory: moderate respiratory distress is noted, Respirations: labored breathing, tachypnea, Breath sounds: rhonchi, that are moderate, are heard diffusely. Vital Signs: 18:18 BP 144 / 83; Pulse 97; Resp 23; Pulse Ox 100% on BiPAP; Weight 63.05 kg; Height 6 ft. tr6 (182.88 cm); 18:30 BP 126 / 74; Pulse 94; Pulse Ox 100% on BiPAP; tr6 20:00 BP 113 / 64; Pulse 89; Resp 17; Pulse Ox 100% on 30% BiPAP; jb4 21:00 BP 111 / 63; Pulse 93; Resp 24; Pulse Ox 99% on 30% BiPAP; jb4 22:00 BP 115 / 60; Pulse 77; Resp 15; Temp 99.4(TE); Pulse Ox 99% on 30% BiPAP; jb4 18:18 Body Mass Index 18.85 (63.05 kg, 182.88 cm) tr6 MDM: 18:22 Patient medically screened. jr8 18:59 Data reviewed: vital signs, nurses notes, lab test result(s), EKG, radiologic studies, jr8 plain films. Data interpreted: Pulse oximetry: on BIPAP is 100 %. Interpretation: normal. Counseling: I had a detailed discussion with the patient and/or guardian regarding: the historical points, exam findings, and any diagnostic results supporting the discharge/admit diagnosis, lab results, radiology results, the need for further work-up and treatment in the hospital. 08/01 18:23 Order name: Basic Metabolic Panel [facility] 08/01 18:23 Order name: CBC with Diff [facility] 08/01 18:23 Order name: LFT's; Complete Time: 19:40 [facility] 08/01 18:23 Order name: Magnesium; Complete Time: 19:40 [facility] 08/01 18:23 Order name: NT PRO-BNP; Complete Time: 19:40 [facility] 08/01 18:23 Order name: PT-INR; Complete Time: 19:40 [facility] 08/01 18:23 Order name: Troponin (emerg Dept Use Only); Complete Time: 19:40 [facility] 08/01 18:23 Order name: XRAY Chest (1 view); Complete Time: 19:02 [facility] 08/01 18:23 Order name: Blood Culture Adult (2) [facility] 08/01 18:24 Order name: Basic Metabolic Panel; Complete Time: 19:40 [facility] 08/01 18:24 Order name: CBC with Automated Diff; Complete Time: 19:21 [facility] 08/01 18:50 Order name: COVID-19 : Document "Date of Symptom Onset" if Symptomatic. em1 08/01 19:50 Order name: SARS-COV-2 RT PCR [facility] 08/01 18:23 Order name: EKG; Complete Time: 18:24 [facility] 08/01 18:23 Order name: Cardiac monitoring; Complete Time: 18:32 [facility] 08/01 18:23 Order name: EKG - Nurse/Tech; Complete Time: 19:17 [facility] 08/01 18:23 Order name: IV Saline Lock; Complete Time: 18:56 [facility] 08/01 18:23 Order name: Labs collected and sent; Complete Time: 18:56 [facility] 08/01 18:23 Order name: O2 Per Protocol; Complete Time: 18:32 [facility] 08/01 18:23 Order name: O2 Sat Monitoring; Complete Time: 18:32 [facility] 08/01 20:04 Order name: CONS Physician Consult EDMS Administered Medications: 18:55 Drug: SOLU-Medrol (methylPrednisoLONE) 125 mg Route: IVP; Site: right wrist; tr6 19:30 Follow up: Response: No adverse reaction jb4 18:55 Drug: LevaQUIN (levofloxacin) 500 mg Volume: 100 ml; Route: IVPB; Infused Over: 60 tr6 mins; Site: right wrist; 19:55 Follow up: Response: No adverse reaction; IV Status: Completed infusion; IV Intake: jb4 100ml 19:37 Drug: Albuterol - atroVENT (ipratropium) (3:1) (2.5 mg - 0.5 mg) 3 ml Route: Nebulizer; jb4 20:00 Follow up: Response: No adverse reaction; Marked relief of symptoms jb4 Disposition: 08/01/20 19:01 Hospitalization ordered by Noah Duarte for Inpatient Admission. Preliminary diagnosis are Acute and chronic respiratory failure with hypoxia, Chronic obstructive pulmonary disease with (acute) exacerbation. - Bed requested for Telemetry/MedSurg (Inpatient). - Status is Inpatient Admission. jb4 - Condition is Fair. - Problem is new. - Symptoms have improved. Addendum: 08/03/2020 14:58 Co-signature as Attending Physician, Yoni García MD I agree with the assessment and k dr plan of care. Signatures: Dispatcher [employer] [facility] Nataly Bliss RN RN dw Rittger, Kevin, MD MD [facility] Taiwo Saunders PA PA jr8 Maik De Jesus RN RN jb4 Betsy Gonzalez RN RN tr6 Corrections: (The following items were deleted from the chart) 08/01 19:09 18:50 CORONAVIRUS ordered. [facility] 20:11 19:01 Hospitalization Ordered by Noah Duarte for Inpatient Admission. Preliminary diagnosis is Acute and chronic respiratory failure with hypoxia; Chronic obstructive pulmonary disease with (acute) exacerbation. Bed requested for Telemetry/MedSurg (Inpatient). Status is Inpatient Admission. Condition is Fair. Problem is new. Symptoms have improved. jr8 22:56 20:11 08/01/2020 19:01 Hospitalization Ordered by Noah Duarte for Inpatient jb4 Admission. Preliminary diagnosis is Acute and chronic respiratory failure with hypoxia; Chronic obstructive pulmonary disease with (acute) exacerbation. Bed requested for Telemetry/MedSurg (Inpatient). Status is Inpatient Admission. Condition is Fair. Problem is new. Symptoms have improved.
[2020-08-01 19:13] LABS: Protime INR 1.03
[2020-08-01 19:29] LABS: ALT/SGPT 28 U/L (12-78); Albumin 3.6 g/dL (3.4-5.0); Alkaline Phosphatase 75 U/L (45-117); BUN Blood Urea Nitrogen 13 mg/dL (7-18); Bicarbonate 30 mmol/L (21-32); Bilirubin Direct 0.1 mg/dL (0-0.2); Bilirubin Total 0.4 mg/dL (0.2-1.0); Glucose Level 127 mg/dL (74-106); NT PRO-BNP 196 pg/mL (<125); Protein, Total 7.5 g/dL (6.4-8.2); Sodium Level 142 mmol/L (136-145); Troponin (Emerg Dept Use Only) < 0.02 ng/mL (0.0-0.045)
[2020-08-01 19:38] LABS: AST/SGOT 28 U/L (15-37); Magnesium 2.7 mg/dL (1.8-2.4); Potassium 4.3 mmol/L (3.5-5.1)
[2020-08-01] MEDS ORDERED: IPRATROPIUM BROM 0.5MG/2.5ML ONE (19:54)
[2020-08-01] MEDS ORDERED: ALBUTEROL 2.5 MG/3 ML NEB SOL ONE (19:54)
--- NOTE | 2020-08-01 21:16 | P.HP ---
Certification for Inpatient Patient admitted to: Inpatient With expected LOS: >2 Midnights Patient will require the following post-hospital care: None Practitioner: I am a practitioner with admitting privileges, knowledge of patient current condition, hospital course, and medical plan of care. Services: Services provided to patient in accordance with Admission requirements found in Title 42 Section 412.3 of the Code of Federal Regulations Patient History Date of Service: 08/01/20 Primary Care Provider: Sierra Reason for admission: copd exacerbation History of Present Illness: Mr. Gooden is a 75 yo M with laryngeal cancer, COPD, PAD, and a Peg Tube here today for 3 days of worsening SOB, CHACON and increased yellow mucus production. He has not had any relief of symptoms at all and has had to use his PRN O2 on 3L all day yesterday. He reports pleuritc pain. He denies hemoptysis. He says his cancer has returned and he is scheduled to be seen at [facility] next week. Allergies cephalexin [From Keflex] Allergy (Intermediate, Verified 06/03/20 11:58) Unknown Sulfa (Sulfonamide Antibiotics) Allergy (Verified 06/03/20 11:58) unknown Home Medications: Aspirin 81 mg PO DAILY 04/20/20 Clopidogrel Bisulfate [Plavix*] 75 mg PO DAILY 04/20/20 Tamsulosin [Flomax*] 0.4 mg PO BEDTIME 06/03/20 Albuterol Inhaler [Ventolin Inhaler*] 2 puff IH TID PRN #1 06/26/20 Fluticasone [Flonase 50MCG Nasal [place]*] 1 sprays ASHLIE BID #1 btl 06/26/20 Montelukast [Singulair*] 10 mg PO BEDTIME #30 tab 06/26/20 Famotidine 10 mg PO BEDTIME 07/07/20 predniSONE [Deltasone] 20 mg PO SEECOM #21 tab 07/07/20 - Past Medical/Surgical History Diabetic: No -: COPD -: Laryngeal cancer -: Essential tremor -: Peripheral arterial disease -: Chronic Diarrhea -: History of meningitis, June 2016 -: Erysipelas -: Appendectomy -: Right leg surgery -: Peripheral arterial disease with stent -: Eye surgery cataract sx on both eyes Psychosocial/ Personal History: The patient is . He has 1 child. 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 - Family History Father -: Lung disease Notes: COPD Mother -: Heart disease, Lung disease - Social History Smoking Status: Former smoker Alcohol use: No CD- Drugs: No Caffeine use: No Place of Residence: Home Review of Systems General: Unremarkable Eyes: Unremarkable ENT: Unremarkable Respiratory: Cough, Shortness of Breath, SOB with Excertion, Pleuritic Pain, Sputum, As per HPI Cardiovascular: Unremarkable Gastrointestinal: Unremarkable Genitourinary: Unremarkable Musculoskeletal: Unremarkable Integumentary: Unremarkable Neurological: Unremarkable Lymphatics: Unremarkable Physical Examination - Physical Exam General: Alert, Oriented x3, Cooperative HEENT: Atraumatic, Normocephalic, PERRLA, Mucous membr. moist/pink, EOMI, Sclerae nonicteric Neck: Supple, 2+ carotid pulse no bruit, JVD not distended, No Thyromegaly, No LAD Respiratory: Diminished Cardiovascular: No edema, Normal pulses, Regular rate/rhythm, Normal S1 S2, No gallops, No rubs, No murmurs Gastrointestinal: Normal bowel sounds, Soft and benign, Non-distended, No ascites, No tenderness, No masses, No rebound, No guarding Musculoskeletal: No clubbing, No swelling, No contractures, No erythema, No tenderness, No warmth Integumentary: No rashes, No breakdown, No significant lesion, No tenderness/swelling, No erythema, No warmth, No cyanosis Neurological: Normal speech, Normal strength at 5/5 x4 extr, Normal tone, Sensation intact, Cranial nerves 3-12 intact, Normal affect Lymphatics: No axilla or inguinal lymphadenopathy - Studies Laboratory Data (last 24 hrs) 08/01/20 18:50: PT 11.9, INR 1.03 08/01/20 18:50: WBC 7.90 D, Hgb 13.2 L, Hct 40.3, Plt Count 209 08/01/20 18:50: Sodium 142, Potassium 4.3, BUN 13, Creatinine 0.63, Glucose 127 H, Magnesium 2.7 H D, Total Bilirubin 0.4, AST 28, ALT 28, Alkaline Phosphatase 75 Assessment and Plan - Problems (Diagnosis) (1) S/P percutaneous endoscopic gastrostomy (PEG) tube placement Current Visit: Yes Status: Chronic (2) COPD (chronic obstructive pulmonary disease) Current Visit: No Status: Acute Qualifiers: COPD type: COPD with acute exacerbation Qualified Code(s): J44.1 - Chronic obstructive pulmonary disease with (acute) exacerbation (3) COPD exacerbation Current Visit: No Status: Chronic (4) CAD (coronary artery disease) Current Visit: No Status: Chronic Qualifiers: Coronary Disease-Associated Artery/Lesion type: [place] artery [place] vs. transplanted heart: [place] heart Associated angina: without angina Qualified Code(s): I25.10 - Atherosclerotic heart disease of [place] coronary artery without angina pectoris (5) Hyperlipidemia Current Visit: No Status: Chronic Qualifiers: (6) PAD (peripheral artery disease) Onset Date: 11/02/16 Current Visit: No Status: Chronic - Plan pulm consulted, respiratory consulted, continue with bipap continue with steroids, IV antibiotics, breathing treatments continue with home medications for PAD continue with PEG tube feedings, patient can tolerate liquids, dietitian consulted snehal byrd and pain medications PRN Discharge Plan: Home Plan to discharge in: 72 Hours - Advance Directives Does patient have a Living Will: Yes Does patient have a Durable POA for Healthcare: Yes - Code Status/Comfort Care Code Status Assessed: Yes (full code) Critical Care: No Time Spent Managing Pts Care (In Minutes): 70
[2020-08-02] MEDS ORDERED: MORPHINE 2 MG/ML SYR IV PRN (00:07)
[2020-08-02] MEDS: predniSONE 20 MG TAB PO SCH ×2 (00:07→08:50)
[2020-08-02] MEDS ORDERED: ONDANSETRON 4 MG/2 ML VIAL IV PRN (00:07)
[2020-08-02] MEDS ORDERED: ACETAMINOPHEN 500 MG TAB PO PRN (00:07)
[2020-08-02] MEDS ORDERED: DOXEPIN HCL 25 MG CAP PO SCH (00:07)
[2020-08-02] MEDS ORDERED: BENZONATATE 100 MG CAP PO PRN (00:07)
[2020-08-02 01:16] VITALS: BMI 18.8
[2020-08-02 01:56] LABS: Absolute Lymphocytes (CBC) 0.1 K/uL (0.7-4.9); Basophils % 0.2 % (0-1.3); Hematocrit 34.8 % (39.6-49.0); Lymphocytes % 1.9 % (15.3-44.8); MPV 9.4 fL (7.6-11.3); RBC Red Blood Cell Count 3.51 M/uL (4.33-5.43)
[2020-08-02] MEDS: IPRATROPIUM BROM 0.5MG/2.5ML NEB SCH ×3 (02:00→13:50)
[2020-08-02 02:24] LABS: ALT/SGPT 24 U/L (12-78); AST/SGOT 16 U/L (15-37); Albumin 2.9 g/dL (3.4-5.0); Alkaline Phosphatase 63 U/L (45-117); BUN Blood Urea Nitrogen 15 mg/dL (7-18); Bicarbonate 31 mmol/L (21-32); Bilirubin Total 0.4 mg/dL (0.2-1.0); Glucose Level 167 mg/dL (74-106); Magnesium 2.3 mg/dL (1.8-2.4); Phosphorus 3.8 mg/dL (2.5-4.9); Potassium 4.8 mmol/L (3.5-5.1); Protein, Total 6.4 g/dL (6.4-8.2); Sodium Level 144 mmol/L (136-145)
[2020-08-02] MEDS: ALBUTEROL 2.5 MG/3 ML NEB SOL NEB PRN ×3 (04:30→13:50)
[2020-08-02] MEDS ORDERED: ENOXAPARIN 40 MG/0.4 ML SQ SCH (09:00)
[2020-08-02] MEDS ORDERED: CEFEPIME 1 GM/VIAL IV SCH (09:18)
[2020-08-02] MEDS ORDERED: CEFEPIME/SWI 1gm 10 ML IVP SCH (09:45)
[2020-08-02 10:31] VITALS: O2SAT 94
--- NOTE | 2020-08-02 12:05 | RAD REPORT ---
EXAM DESCRIPTION: CT - Chest For Pe Angio - 08/02/2020 11:43 am CLINICAL HISTORY: Shortness of breath COMPARISON: June 2020 TECHNIQUE: Dynamically enhanced axial 3 mm thick images of the chest were obtained during administra tion of <100> mL Isovue 370 IV contrast. Coronal and oblique reconstruction images were generated and reviewed. Exam utilizes a protocol for optimal evaluation of pulmonary arterial tree. Maximum intensity projections 3D imaging was utilized All CT scans are performed using dose optimization technique as appropriate and may include automated exposure control or mA/KV adjustment according to patient size. FINDINGS: A pulmonary embolus is not seen. A thoracic aortic aneurysm is not noted. A pleural effusion is not seen. A pericardial effusion is not seen. A lung consolidation is not present. COPD. Mucous within lower lobe bronchi. Atherosclerotic disease IMPRESSION: Negative for a pulmonary embolism.
--- NOTE | 2020-08-02 13:34 | P.PN ---
Subjective Date of Service: 08/02/20 Primary Care Provider: Sierra Chief Complaint: copd exacerbation Patient states he is feeling much better. The report excessive upper airway secretions and had to be his respiratory distress to the secretions. He required BiPAP briefly last night. He is now stable on baseline oxygen by nasal cannula. Chest x-ray: No infiltrate. Physical Examination - Vital Signs Temperature: 97.4 F Blood Pressure: 103/59 Pulse: 62 Respirations: 24 Pulse Ox (%): 100 - Physical Exam General: Alert, In no apparent distress, Oriented x3 HEENT: Atraumatic, Normocephalic, Mucous membr. moist/pink Neck: JVD not distended Respiratory: Clear to auscultation bilaterally, Normal air movement Cardiovascular: No edema, Regular rate/rhythm, Normal S1 S2 Gastrointestinal: Normal bowel sounds, Soft and benign, Non-distended, Other (PEG tube) Musculoskeletal: No swelling, No tenderness Integumentary: No rashes Neurological: Normal speech, Normal strength at 5/5 x4 extr, Cranial nerves 3-12 intact - Studies Laboratory Data (last 24 hrs) 08/01/20 18:50: PT 11.9, INR 1.03 08/01/20 18:50: WBC 7.90 D, Hgb 13.2 L, Hct 40.3, Plt Count 209 08/01/20 18:50: Sodium 142, Potassium 4.3, BUN 13, Creatinine 0.63, Glucose 127 H, Magnesium 2.7 H D, Total Bilirubin 0.4, AST 28, ALT 28, Alkaline Phosphatase 75 Assessment And Plan - Current Problems (Diagnosis) (1) Acute bronchitis Current Visit: Yes Status: Acute (2) S/P percutaneous endoscopic gastrostomy (PEG) tube placement Current Visit: Yes Status: Chronic (3) Dysphagia Current Visit: No Status: Chronic (4) Laryngeal cancer Current Visit: Yes Status: Acute - Plan CTA thorax: No infiltrate, no pulmonary embolus. Patient symptoms likely related to increased airway secretions. Continue antibiotics, bronchodilators, steroid. Pulmonary input appreciated. Chest physiotherapy as needed. Patient states he has an appointment for infusion chemo tomorrow morning. Will discharge to home today so he can make his appointment tomorrow if he remains stable and asymptomatic.
[2020-08-02 17:35] VITALS: BP 108/54; TEMP 98
[2020-08-02] MEDS ORDERED: Levofloxacin 750mg IV 750 MG/150 ML BAG IV SCH (18:00)
[2020-08-02 19:03] LABS: Urine Appearance CLEAR (Clear); Urine Bilirubin NEGATIVE (Negative); Urine Blood NEGATIVE (Negative); Urine Color YELLOW (Yellow); Urine Glucose TRACE (Negative); Urine Protein NEGATIVE (Negative); Urine Urobilinogen 0.2 mg/dL (0.2-1.0); Urine pH 7.5 (5.0-7.0)
[2020-08-02 19:11] LABS: Urine Microscopic Reflex NO UMIC
[2020-08-02] MEDS ORDERED: GUAIFENESIN 600 MG SA TAB PO SCH (21:00)
--- NOTE | 2020-08-03 20:12 | P.DS ---
Admission Date: 08/01/20 Discharge Date: 08/02/20 Primary Care Provider: Sierra Disposition: ROUTINE DISCHARGE Discharge Condition: GOOD Reason for Admission: copd exacerbation - Problems (1) Acute bronchitis Status: Acute (2) S/P percutaneous endoscopic gastrostomy (PEG) tube placement Status: Chronic (3) Dysphagia Status: Chronic (4) Laryngeal cancer Status: Acute Brief History of Present Illness: 75-year-old gentleman with a history of laryngeal cancer, COPD, peripheral arterial disease and PEG tube presented with a complaint of shortness of breath which has been progressive over the past 3 days. Patient had increased sputum production and secretions which per patient were choking him. He was dyspneic on arrival to the ED and was placed on BiPAP. Chest x-ray did not show show any infiltrate. Patient was hospitalized for COPD exacerbation. Hospital Course: Patient required BiPAP briefly. He was put on bronchodilators and steroid therapy. He was seen in consultation by pulmonary-Dr. Ventura will requested for CTA thorax. CT chest showed no infiltrates by because in the bronchi. Patient clinically improved, was transition to his baseline oxygen by nasal cannula 3 L per min. Patient requested to go home. He is clinically stable. He is discharged per his request. Vital Signs/Physical Exam: Temp Pulse Resp BP Pulse Ox 98.0 F 69 24 H 108/54 L 98 08/02/20 16:00 08/02/20 16:00 08/02/20 16:00 08/02/20 16:00 08/02/20 16:00 General: Alert, In no apparent distress, Oriented x3 HEENT: Mucous membr. moist/pink Neck: JVD not distended Respiratory: Clear to auscultation bilaterally, Normal air movement Cardiovascular: No edema, Regular rate/rhythm, Normal S1 S2 Gastrointestinal: Normal bowel sounds, Soft and benign, Non-distended Musculoskeletal: No swelling Integumentary: No rashes Neurological: Normal strength at 5/5 x4 extr Laboratory Data at Discharge: WBC 6.40 K/uL (4.3-10.9) D 08/02/20 01:38 Hgb 11.6 g/dL (13.6-17.9) L 08/02/20 01:38 Hct 34.8 % (39.6-49.0) L 08/02/20 01:38 Plt Count 188 K/uL (152-406) 08/02/20 01:38 PT 11.9 SECONDS (9.5-12.5) 08/01/20 18:50 INR 1.03 08/01/20 18:50 Sodium 144 mmol/L (136-145) 08/02/20 01:38 Potassium 4.8 mmol/L (3.5-5.1) 08/02/20 01:38 BUN 15 mg/dL (7-18) 08/02/20 01:38 Creatinine 0.73 mg/dL (0.55-1.3) 08/02/20 01:38 Glucose 167 mg/dL (74-106) H 08/02/20 01:38 Phosphorus 3.8 mg/dL (2.5-4.9) 08/02/20 01:38 Magnesium 2.3 mg/dL (1.8-2.4) 08/02/20 01:38 Total Bilirubin 0.4 mg/dL (0.2-1.0) 08/02/20 01:38 AST 16 U/L (15-37) 08/02/20 01:38 ALT 24 U/L (12-78) 08/02/20 01:38 Alkaline Phosphatase 63 U/L (45-117) 08/02/20 01:38 Home Medications: Aspirin 81 mg PO DAILY 04/20/20 Tamsulosin [Flomax*] 0.4 mg PO DAILY 06/03/20 Albuterol Neb [Proventil 0.083% Neb Soln] QID PRN 08/02/20 Albuterol Sulfate [Ventolin Hfa] QID PRN 08/02/20 Clopidogrel Bisulfate [Plavix] 1 tab 08/02/20 Doxepin HCl 1 cap BEDTIME 08/02/20 Famotidine 1 tab BID 08/02/20 Fluticasone [Flonase 50MCG Nasal [place]*] 1 spray DAILY 08/02/20 Levofloxacin [Levaquin] 1 tab DAILY 08/02/20 Montelukast [Singulair*] 10 mg PO DAILY 08/02/20 Tiotropium Br/Olodaterol HCl [Stiolto Respimat Inhal [place]] BID 08/02/20 guaiFENesin [Mucinex Fast-Max Chest-Congest] DAILY 08/02/20 predniSONE [Deltasone*] 1 tab DAILY 08/02/20 Diet: AHA Activity: Ad vania Followup: Unknown,U [Primary Care Provider] - Time spent managing pt's care (in minutes): 32
== END 2020-08-02 19:13 | disposition home or self-care (01) | DRG 189 ==
LOC: ER 18:12 → ERHOLD 20:02 → 2ND 22:33
PROVIDERS: ADMIT Internal Medicine; ATTEND Internal Medicine
PROC: 5A09357 Assistance with Respiratory Ventilation, Less than 24 Consecutive Hours, Continuous Positive Airway Pressure (ICD-10-PCS; principal; 2020-08-01)
DX: J96.21 Acute and chronic respiratory failure with hypoxia (principal); J44.1 Chronic obstructive pulmonary disease with (acute) exacerbation; J44.0 Chronic obstructive pulmonary disease with (acute) lower respiratory infection; J20.9 Acute bronchitis, unspecified; I10 Essential (primary) hypertension; I73.9 Peripheral vascular disease, unspecified; I25.10 Atherosclerotic heart disease of native coronary artery without angina pectoris; E78.5 Hyperlipidemia, unspecified; C32.9 Malignant neoplasm of larynx, unspecified; R13.10 Dysphagia, unspecified; Z79.52 Long term (current) use of systemic steroids; Z79.899 Other long term (current) drug therapy; Z85.01 Personal history of malignant neoplasm of esophagus; Z88.1 Allergy status to other antibiotic agents; Z79.82 Long term (current) use of aspirin; Z90.49 Acquired absence of other specified parts of digestive tract; Z79.02 Long term (current) use of antithrombotics/antiplatelets; Z87.891 Personal history of nicotine dependence; Z93.1 Gastrostomy status; Z20.822 Contact with and (suspected) exposure to COVID-19
CPT/HCPCS: 36415; 71045; 71275; 80048; 80053; 80076; 81003; 83735; 83880; 84100; 84484; 85025; 85379; 85610; 87040; 87205; 93005; 94660; 96365; 96375; 99285; J0692; J1650; J2930; J7050; J7512; Q0138; Q9967; U0003

== ENCOUNTER 2020-09-11 15:37 | Emergency (ER) | payer OTHER ==
--- OUTSIDE RECORDS SUMMARY | 2020-09-11 15:57 | XMS REPORT | Continuity of Care Document ---
:1945 Author Organization [facility] t Address [address] [place] [address] Care Team Providers Name Role Phone [phone] Primary Care Physician Unavailable SYSTEM, NOT IN Attending Clinician Unavailable Dolly DELATORRE Attending Clinician Unavailable Sonya YOST Attending Clinician Unavailable KIM Attending Clinician Unavailable HOWARD Attending Clinician Unavailable ELEUTERIO Attending Clinician Unavailable Mj Wyatt Attending Clinician Best Prince Attending Clinician Isheileen Attending Clinician Holley Calzada Attending Clinician Jefe Payan Attending Clinician Kannan Attending Clinician DeFribonnie, Mu Attending Clinician Lele Attending Clinician HOWARD Admitting Clinician Unavailable Ishfaq Admitting Clinician Holley Calzada Admitting Clinician Jefe Payan Admitting Clinician Kannan Admitting Clinician Payers Payer Name Policy Type Policy Number Effective Date Expiration Date S ource [employer] CHOICE [id number] 2019 MEDICARE PPO 00:00:00 Problems Condition Condition Condition Status Onset Resolution Last Treating Co mments Source Name Details Category Date Date Treatment Clinician Date Essential Problem Active 2018-06-18 Me moria tremor 10-19 11:05:32 l (disorder) 00:00: Shravan n Essential 00 tremor (disorder) Active 10/19/2016 Problem 06/18/2018 Data migrated from [employer] on 12/27/2016 . Originally documented as Essential tremor.Bud a migrated from [employer] on 11/02/2016 . Originally documented as Essential tremor.Bud a migrated from [employer] on 05/12/2016 . Originally documented as Essential tremor. [facility] HEADACHE Diagnosis Active 2016-07-04 M emoria 06-21 22:02:00 l HEADACHE 00:00: Shravan n 00 Active 06/21/2016 [facility] FOOT PAIN Diagnosis Active 2016-05-22 Memoria OR INJURY 05-17 20:01:00 l FOOT 00:00: Lynco PAIN OR 00 INJURY Active 05/17/2016 [facility] WOUND Diagnosis Active 2016-05-30 Mem oria 1- 09:23:00 l WOUND 08:00: Damien 00 Active 03/13/2016 [facility] ACUTE Diagnosis Active 2015-07-21 Mem oria RESPIRATOR 5-04 11:54:00 l Y FAILURE, ACUTE 00:00: Danielle nn ACUTE RESPIRATOR 00 RESPIRA Y FAILURE, ACUTE RESPIRA Active 07/15/2015 [facility] SHORTNESS Diagnosis Active 2015-07-15 Memoria OF BREATH 5-04 18:29:00 l 00:00: Damien SHORTNESS 00 OF BREATH Active 07/15/2015 [facility] ACUTE COPD Diagnosis Active 2015-07-14 Memoria EXACERBATI - 08:45:00 l ON ACUTE 00:00: Damien COPD 00 EXACERBATI ON Active 6 [facility] PCP Diagnosis Active 2015-07-13 Mem oria SENT/WEAKN 5- 19:58:00 l ESS PCP 00:00: Lynco SENT/WEAKN 00 ESS Active 07/13/2015 [facility] COPD Diagnosis Active 2015-05-13 Mem oria 2-22 22:05:00 l COPD 07:00: Lynco 00 Active 05/04/2015 [facility] 305.1 - Diagnosis Active 2014-07-31 Vt moria TOBACCO 07-29 14:03:00 l USE DIS 305.1 - 00:01: Shravan n TOBACCO 00 USE DIS Active 07/29/2014 [facility] TOBACCO Condition Active 2014-07-23 Vt moria ABUSE 07-25 07:58:30 l TOBACCO 00:00: Damien ABUSE 00 Active 07/25/2014 [facility] Tobacco Problem Active 2018-06-18 Xiang bethany dependence 07-25 11:05:32 l syndrome Tobacco 00:00: Danielle nn (disorder) dependence 00 syndrome (disorder) Active 07/25/2014 Problem 06/18/2018 Data migrated from [employer] on 09/17/14.Bud a migrated from [employer] on 08/12/14. [facility], [facility] LOSS OF Condition Active 2014-07-23 Vt moria WEIGHT 07-23 07:58:30 l LOSS OF 00:00: Damien WEIGHT 00 Active 07/23/2014 [facility] CAROTID Condition Active 2014-07-23 Vt moria BRUIT, 07-23 07:58:30 l RIGHT CAROTID 00:00: Lynco BRUIT, 00 RIGHT Active 07/23/2014 [facility] Carotid Problem Active 2018-06-18 Xiang bethany bruit 07-23 11:05:32 l (finding) Carotid 00:00: Herm martha bruit 00 (finding) Active 07/23/2014 Problem 06/18/2018 Data migrated from [employer] on 09/17/14.Bud a migrated from [employer] on 08/12/14. [facility] Weight Problem Active 2018-06-18 Memor ia decreased 07-23 11:05:32 l (finding) Weight 00:00: Danielle nn decreased 00 (finding) Active 07/23/2014 Problem 06/18/2018 Data migrated from [employer] on 09/17/14.Bud a migrated from [employer] on 08/12/14. [facility], [facility] PNEUMONIA Diagnosis Active 2014-04-25 Memoria 2- 11:22:00 l 00:00: Damien PNEUMONIA 00 Active 04/25/2014 [facility] COPD Diagnosis Active 2014-05-02 Mem oria EXACERBATI 04-25 16:47:00 l ON COPD 00:00: Lynco EXACERBATI 00 ON Active 5 [facility] RASH Diagnosis Active 2013-032014-02-21 Mem oria 04-24 17:08:00 l RASH 00:00: Damien 00 Active 02/21/2014 [facility] CELLULITIS Diagnosis Active 2013-032014-03-05 Memoria FAILED 04-24 16:34:00 l OUTPATIENT 00:00: Shravan n THERAPY CELLULITIS 00 FAILED OUTPATIENT THERAPY Active 02/21/2014 [facility] HYPOTHYROI Condition Active 2014-07-23 Memoria DISM 11-26 07:58:30 l 00:00: Lynco HYPOTHYROI 00 DISM Active 11/26/2013 [facility] HYPOGONADI Condition Active 2014-07-23 Memoria SM 11-26 07:58:30 l 00:00: Lynco HYPOGONADI 00 SM Active 4 Condition 07/23/2014 [facility] PERIPHERAL Condition Active 2014-07-23 Memoria VASCULAR 11-26 07:58:30 l DISEASE 00:00: Damien PERIPHERAL 00 VASCULAR DISEASE Active 11/26/2013 [facility] OSTEOPOROS Condition Active 2014-07-23 Memoria IS 11-26 07:58:30 l 00:00: Damien OSTEOPOROS 00 IS Active 4 Condition 07/23/2014 [facility] COPD Condition Active 2014-07-23 Mem oria 11-26 07:58:30 l COPD 00:00: Lynco 00 Active 11/26/2013 [facility] Chronic Problem Active 2018-06-18 Xiang bethany obstructiv 11-26 11:05:32 l e lung Chronic 00:00: Damien disease obstructiv 00 (disorder) e lung disease (disorder) Active 11/26/2013 Problem 06/18/2018 Data migrated from [employer] on 09/17/14.Bud a migrated from [employer] on 08/12/14.Bud a migrated from [employer] on 08/12/14. [facility], [facility] Hypogonadi Problem Active 2018-06-18 M emoria sm 11-26 11:05:32 l (disorder) 00:00: Shravan n Hypogonadi 00 sm (disorder) Active 11/26/2013 Problem 06/18/2018 Data migrated from [employer] on 09/17/14.Bud a migrated from [employer] on 08/12/14.Bud a migrated from [employer] on 08/12/14. [facility] Osteoporos Problem Active 2018-06-18 M emoria is 11-26 11:05:32 l (disorder) 00:00: Shravan n Osteoporos 00 is (disorder) Active 11/26/2013 Problem 06/18/2018 Data migrated from [employer] on 09/17/14.Bud a migrated from [employer] on 08/12/14.Bud a migrated from [employer] on 08/12/14. [facility] Peripheral Problem Active 2018-06-18 M emori vascular 11-26 11:05:32 l disease 00:00: Damien (disorder) Peripheral 00 vascular disease (disorder) Active 11/26/2013 Problem 06/18/2018 Data migrated from [employer] on 09/17/14.Bud a migrated from [employer] on 08/12/14.Bud a migrated from [employer] on 08/12/14. [facility] DYSPNEA Diagnosis Active 2012-09-12 Me moria - 13:24:00 l DYSPNEA 08:00: Damien 00 Active 03/13/2012 [facility] CELLULITIS Diagnosis Active 2014-03-05 Memoria NOS 16:34:00 l Damien CELLULITIS NOS Active [facility] CHRONIC Diagnosis Active 2015-05-13 Me moria OBSTRUCTIV 22:05:00 l E PULMON CHRONIC Danielle nn DISEASE W OBSTRUCTIV ACU E PULMON DISEASE W ACU Active [facility] ACUTE Diagnosis Active 2015-07-21 Mem oria RESPIRATOR 11:54:00 l Y FAILURE, ACUTE Danielle nn UNSP W RESPIRATOR HYPOXI Y FAILURE, UNSP W HYPOXI Active [facility] Cellulitis Problem Resolve 2018-06-18 Memoria (disorder) d 11:05:32 l Lynco Cellulitis (disorder) Resolved Problem 06/18/2018 [facility] History of Problem Resolve 2018-06-18 Memoria - d 11:05:32 l musculoske History Her ruiz letal of - disease musculoske (context-d letal ependent disease category) (context-d ependent category) Resolved Problem 06/18/2018 [facility] Hypothyroi Problem Resolve 2018-06-18 Memoria dism d 11:05:32 l (disorder) Shravan n Hypothyroi dism (disorder) Resolved Problem 06/18/2018 [facility] COPD Problem Resolve 2012-09-14 Xiang bethany d 21:37:11 l COPD Damien Resolved Problem 09/14/2012 [facility] Hypertensi Problem Active 2018-06-18 M emoria ve 11:05:32 l disorder, Lynco systemic Hypertensi arterial ve (disorder) disorder, systemic arterial (disorder) Active Problem 06/18/2018 [facility] Peripheral Problem Active 2018-06-18 M emoria arterial 11:05:32 l occlusive Lynco disease Peripheral (disorder) arterial occlusive disease (disorder) Active Problem 06/18/2018 [facility] Poor Problem Active 2018-06-18 Memor ia short-term 11:05:32 l memory Poor Damien (finding) short-term memory (finding) Active Problem 06/18/2018 [facility] Smoker Problem Active 2018-06-18 Memor ia (finding) 11:05:32 l Smoker Damien (finding) Active Problem 06/18/2018 [facility] Cellulitis Diagnosis Active 2017-02-18 Memoria of right 03:46:09 l lower limb Shravan n Cellulitis of right lower limb Active Diagnosis 02/18/2017 [facility] Infectious Disease RESPIRATOR Diagnosis Active 2012-09-12 Memoria Y ABNORM 13:24:00 l NEC Lynco RESPIRATOR Y ABNORM NEC Active [facility] CHR AIRWAY Diagnosis Active 2014-05-02 Memoria OBSTRUCT 16:47:00 l NEC CHR Damien AIRWAY OBSTRUCT NEC Active [facility] Erysipelas Problem Resolve 2013-032018-06-18 2018-06-18 Memoria (disorder) d 04-21 11:05:32 11:05:32 l 00:00: Damien Erysipelas 00 (disorder) Resolved 02/18/2014 Problem 06/18/2018 Data migrated from [facility] on 09/26/14. [facility] History of Past Illness Condition Condition [...] Damien ERYSIPELAS 00 Inactive 02/18/2014 [facility] SEBORRHEIC Condition Inactiv 2014-07-23 2014-07-23 Memoria KERATOSIS e 12-03 07:58:30 07:58:30 l 00:00: Lynco SEBORRHEIC 00 KERATOSIS Inactive 12/03/2013 Condition 5 [...] DA Active U 2019-03 [facility] in 0- 00:00: [address] N.K.D.A. N.K.D.A. Active Info Not Xiang bethany Available 3-21 l 00:00: Damien 00 cephalex cephalex Active Memori a in<sup>2 in<sup>2 1-09 l , 3, , 3, 06:00: Damien 4</sup> 4</sup> 00 cephalex cephalex Active Memori a in<sup>1 in<sup>1 1-02 l , , 06:00: Lynco 2</sup> 2</sup> 00 KEFLEX KEFLEX Active Memoria 1-02 l 00:00: Lynco 00 sulfa sulfa Active Moderate Memoria drugs<arboleda drugs<arboleda l p>1</sup p>1</sup Shravan n > > Bactrim Bactrim Active Memoria l Lynco nka nka Active Memoria l Lyn[place] sulfa sulfa Active Moderate Memoria drugs<arboleda drugs<arboleda l p>3</sup p>3</sup Shravan n > > sulfa sulfa Active Moderate Memoria drugs<arboleda drugs<arboleda l p>4</sup p>4</sup Shravan n > > Social History Social Habit Start Date Stop Date Quantity Comments Source Social History 2016-05-18 2016-05-18 [facility] 01:51:07 01:51:07 Medications Ordered Filled Start Stop Current Ordering Indication Dosage Frequency Signature Comments Components Source Medication Medication Date Date Medication? Clinician (SIG) Name Name rivastigmin Yes See Memori a e 1.5 mg 4-16 Instructio l oral 12:14: ns, # 180 Lynco capsule 18 unknown unit, Refill(s) 3, TAKE 1 CAPSULE BY MOUTH TWICE DAILY, Pharmacy: [facility] primidone Yes See Memoria 50 mg oral 3-26 Instructio l tablet 18:35: ns, 4 tabs Danielle nn 00 twice a day, # 720 tab, 3 Refill(s), Pharmacy: [facility] Megestrol Yes See Memoria Acetate 40 3-02 Instructio l MG/ML Oral 21:38: ns, # 600 He rmann Suspension 36 mL, SHAKE WELL AND TAKE 20 ML BY MOUTH EVERY DAY, Pharmacy: [facility] rivastigmin No 1.5 mg = 1 Memoria e 1.5 mg 2-12 cap, PO, l oral 22:23: BID, # 60 Damien capsule 00 cap, 3 Refill(s), Pharmacy: [facility] diazepam 2 Yes 2 mg = 1 Mem oria mg oral 1-31 tab, PO, l tablet 18:07: Daily, PRN Danielle nn 00 Tremor, X 30 day, # 30 tab, 3 Refill(s) clopidogrel 2016-03 Yes NELL 1 tab(s) M emoria - JIMY l 03:46: Lynco 09 potassium 2016-03 Yes NELL 1 tab Memori a 2-09 JIMY l 03:46: Lynco 09 prednisolon 2016-03 Yes NELL 5 mL Memor ia e 2-09 JIMY l 03:46: Lynco 09 levofloxaci 2016-03 Yes NELL 1 tab(s) M emoria n 2-09 JIMY l 03:46: Damien 09 Furosemide 2016-03 Yes NELL 1 tab Memor [...] 0 Refill(s) Nystatin Yes 500,000 Memori a 444220 4-17 unit = 5 l UNT/ML Oral 17:15: mL, Shravan n Suspension 00 S&SPIT, QID, X 7 day, # 140 mL, 0 Refill(s) amLODIPine Yes 10 mg = 1 Me moria 10 mg oral 4-17 tab, PO, l tablet 17:15: Daily, # Damien 00 30 tab, 0 Refill(s) metoprolol No Notes: Memor ia tartrate 4-16 (Same as: l 02:00: Lopressor) Levaquin No 500 mg, 1 Xiang bethany 4-15 tab, l 20:00: Route: PO, Drug form: TAB, [id number], Dosing Weight 71.682, kg, Start date: 06/25/16 [...] 4-15 (Same as: l Tablet 14:00: Lasix) Damien 00 May cause GI upset. Give with food or milk. Fish Oil No Notes: Memoria 4-15 (Same as: l 14:00: MaxEPA, Damien Dexter 3 fish oil ) Non-Formul stefania Drug [...] e 4-14 Tablet l 21:30: should not Lynco 00 be chewed or crushed. (Same as: Protonix) Amlodipine No Notes: Memor ia 4-14 (Same as: l 19:00: Norvasc) Primidone No Notes: Memori a 4-14 (Same as: l 18:00: Mysoline) Albuterol No Notes: SEE Me moria 0.83 MG/ML 4-14 RT l Inhalant 08:09: DOCUMENTAT Her ruiz Solution 00 ION (Same as: Proventil) vancomycin No 2001 mg: Me moria + sodium 4-13 infuse l chloride 16:00: over 2.5 Danielle nn 0.9% 250 mL 00 hours INJ (for IV set) 250 mL MEDICATION WASTE Product Size: 1000 mg Product Wasted: ___ mg ketOROLAC No 4 days Memor ia 15 mg/mL 06-23 l injectable 02:27: MEDICATION H ermann solution 00 WASTE Product Size: 30 mg Product Wasted: _15__ mg Tylenol No Notes: Max Xiang bethany -13 acetaminop l 02:19: hen = 4000 Damien 00 mg/day (4 gm/day). (Same as: Tylenol) Levofloxaci No Notes: Xiang bethany n - (Same l 02:00: as:Levaqui Admien 00 n) Levofloxaci No Notes: Xiang bethany n -13 (Same l 01:00: as:Levaqui Damien n) Hydralazine No Notes: Xiang bethany -12 (Same as: l 23:32: Apresoline Damien ) Push over 5 minutes sodium No 1,000 mL, Memori a chloride 06-22 Rate: 50 l 0.9% 1000 23:30: ml/hr, [...] 4-12 mL, Route: l 10:35: IVP, Drug Lynco 00 form: INJ, Q4H, Dosing Weight 71.682, kg, PRN Hypertensi on, Start date: 06/22/16 5:35:00 CDT, Duration: 30 day, Stop date: 07/22/16 5:34:00 CDT Dilaudid No Notes: Memoria 4-12 Same as l 10:34: Dilaudid Albuterol No Notes: Memori a 0.833 MG/ML 06-22 (Same as: l / 07:00: Duoneb) Lynco Ipratropium 00 [place] 0.167 MG/ML Inhalant Solution Nystatin No 500,000 Memori a [id number] 4-12 unit, 5 l UNT/ML Oral 05:00: mL, Route: Lynco Suspension 00 S&SPIT, Drug form: SUSP, QID, [...] MG/ML 12 Route: l / 03:54: NEB, Lynco Ipratropium 00 Dosing [place] Weight 0.167 MG/ML 71.682, Inhalant kg, PRN, Solution PRN Respirator y Protocol, Start date: 06/21/16 22:54:00 CDT, Duration: 30 day, Stop date: 07/21/16 22:53:00 CDT Guaifenesin No Notes: Xiang bethany 4-12 (Same as: l 03:54: Robitussin Damien ) Sodium No 1,000 mL, Memori a Chloride 12 Rate: 125 l 0.154 03:51: ml/hr, Lynco MEQ/ML 00 Infuse Injectable over: 8 Solution hr, Route: IV, Dosing Weight 71.682 kg, Total Volume: 1,000, Start date: 06/21/16 22:51:00 CDT, Duration: 30 day, Stop date: 07/21/16 22:50:00 CDT Saline No 10 ml, Memoria Flush 0.9% 12 Route: l 03:51: IVP, Drug Form: INJ, Dosing Weight 71.682, kg, PRN, PRN Line Flush, Start date: 06/21/16 22:51:00 CDT, Duration: 30 day, Stop date: 07/21/16 22:50:00 CDT Acetaminoph No 100.4 F, M emoria en 4-12 Start l 03:51: date: Lynco 06/21/16 22:51:00 CDT, Duration: 30 day, Stop date: 07/21/16 22:50:00 CDT Ondansetron No Notes: Xiang bethany -12 (Same as: l 03:51: Zofran) MEDICATION WASTE Product Size: 4 mg Product Wasted: ___ mg Acetaminoph No 1 tab, Xiang bethany en 325 MG / 12 Route: PO, l Hydrocodone 03:51: Drug Form: Lynco Bitartrate 00 TAB, 5 MG Oral Dosing [...] MG Oral 4-12 Refill(s) l Tablet 02:26: Lynco 00 pantoprazol Yes 40 mg = 1 M emoria e 40 mg -12 tab, PO, l oral 02:22: Daily, 0 Lynco enteric 00 Refill(s) coated tablet Symbicort Yes [...] 06-22 (Same as: :12: Duoneb) Ipratropium 00 [place] 0.167 MG/ML Inhalant Solution [DuoNeb] Acetaminoph No Notes: Do M emoria en 06-22 not exceed l 00:42: 4 gm/day. Lynco (Same as: Tylenol) Sodium No 25 mL, Memoria Chloride 06-21 Route: IV, l 0.9% IV 23:40: Start Damien 00 date: 06/21/16 18:40:00 CDT, Duration: 30 day, Stop date: 07/21/16 18:39:00 CDT, PRN Line Flush Hydralazine No Notes: Xiang bethany 06-21 (Same as: l 23:36: Apresoline ) Push over 5 minutes Morphine No Notes: Memoria 4-11 (Same l 23:36: as:MORPhin Damien e Sulfate) Morphine No Notes: Memoria 4-11 (Same l 20:38: as:MORPhin e Sulfate) Diphenhydra No Notes: Xiang bethany mine -11 (Same as: l 20:38: Benadryl) Metoclopram No Notes: Xiang bethayn trevor 06-21 (Same as: l 20:38: Reglan) Sodium No 1,000 mL, Memori a Chloride 06-21 1000 l 0.154 20:38: ml/hr, Damien MEQ/ML [...] day, # 60 cap, 0 Refill(s), Pharmacy: [facility] [id number] ciprofloxac Yes 500 mg = 1 Memoria in 500 mg 3-08 tab, PO, l oral tablet 20:20: Q12H, X 30 Damien 00 day, # 60 tab, 0 Refill(s), Pharmacy: [facility] [id number] Nicotine No Notes: Memoria 3-08 (Same as: l 15:00: Habitrol) "Remove old patch before applicatio n of new patch" WASTE: F/P - P Waste Black; E - P Waste Black Protonix No Notes: Memoria 3-08 Tablet l 13:30: should not Lynco 00 be chewed or crushed. (Same as: Protonix) vancomycin No 2001 mg: Me moria + sodium 05-18 infuse l chloride 12:30: over 2.5 Danielle nn 0.9% INJ 00 hours 250 mL MEDICATION WASTE Product Size: 1000 mg Product Wasted: _0__ mg Cleocin HCl No 600 mg, 50 Memoria 3-08 mL, Route: l 03:30: IVPB, Drug form: INJ, ABXQ8H, Start date: 05/17/16 21:30:00 PROMOTIONAL ADVERTISING ASSISTANT, Duration: 30 day, Stop date: 06/16/16 13:30:00 [...] 18 Memoria 3-08 microgram, l 01:56: INHALATION Damien 00 , Daily, # 30 ea, 0 Refill(s) vitamin E Yes 400 Memoria 400 intl -08 IntlUnit = l units oral 01:56: 1 cap, PO, H ermann capsule 00 Daily, # 100 cap, 0 Refill(s) predniSONE Yes See Memoria 50 mg oral 308 Instructio l tablet 01:56: ns, PRN Damien 00 Allergies, 1 tab PO PRN asthma attacks., 0 Refill(s) clopidogrel Yes 75 mg = 1 M emoria 75 mg oral 3-08 tab, PO, l tablet 01:56: Daily, # Lynco 00 30 tab, 0 Refill(s) levofloxaci No 500 mg = 1 Memoria n 500 mg 3-08 tab, PO, l oral tablet 01:56: Daily, # He rmann 00 10 tab, 0 Refill(s) cholecalcif Yes 1,000 Memor ia adin 1000 05-18 IntlUnit = l intl units 01:56: 1 tab, PO, H ermann oral tablet 00 Daily, # 30 tab, 0 Refill(s) vancomycin No 2001 mg: Me moria + sodium 05-17 infuse l chloride 23:30: over 2.5 Danielle nn 0.9% 500 mL 00 hours INJ (for IV set) 500 mL MEDICATION WASTE Product Size: 1000 mg Product Wasted: _250__ mg Primidone No Notes: Memori a 05-17 (Same as: l 23:00: Mysoline) Enoxaparin No Notes: Memor ia 05-17 (Same as: l 23:00: Lovenox) metoprolol No Notes: Memor ia tartrate 05-17 (Same as: l 22:42: Lopressor) Ondansetron No Notes: Xiang bethany 05-17 (Same as: l 22:41: Zofran) MEDICATION WASTE Product Size: 4 mg Product Wasted: _0__ mg Simethicone No Notes: Xiang bethany - (Same as: l 22:41: Mylicon) Bisacodyl No Notes: Memori a 05-17 (Same As: l 22:41: Dulcolax, Bisco-Lax) Acetaminoph No Notes: Do M emoria en 05-17 not exceed l 22:41: 4 gm/day. (Same as: Tylenol) Tessalon No Notes: Memoria Perles 05-17 (Same As: l 22:41: Tessalon Perles) "Do Not Crush" Loratadine No Notes: 1 Mem oria 3-07 hr before l 22:41: meals (Same as: Claritin) Non-formul stefania item Hydralazine No Notes: Xiang bethany 3-07 (Same as: l 22:41: Apresoline ) Push over 5 minutes Acetaminoph No Notes: Xiang bethany en 325 MG / 07 (Same as: l Hydrocodone 22:41: [place] Danielle nn Bitartrate 00 325/5) Do 5 MG Oral not exceed Tablet 4gm/day of [[place] acetaminop 5/325] hen. Acetaminoph No Notes: Do M emoria en 325 MG / 3-07 not exceed l Hydrocodone 22:41: 4gm/day of Damien Bitartrate 00 acetaminop 10 MG Oral hen. Tablet (Same as: [[place] 10/325] 325/10) Lorazepam No Notes: Memori a 3-07 (Same as: l 22:41: Ativan) Morphine No 1 mg, 0.5 Xiang bethany -07 mL, Route: l 22:41: IVP, Drug form: SOLN, Q4H, Dosing Weight 74.545, kg, PRN Pain Score 7-10, if unable to take po, Start date: 05/17/16 16:41:00 PROMOTIONAL ADVERTISING ASSISTANT, Duration: 30 day, Stop date: 06/16/16 16:40:00 CDT Albuterol No Notes: Memori a 0.833 MG/ML 05-17 (Same as: l / 22:41: Duoneb) Ipratropium 00 [place] 0.167 MG/ML Inhalant Solution Vancomycin No 1,118.175 Me moria 3-07 mg, Route: l 22:39: IVPB, Lynco ABXQ8H, Dosing Weight 74.545, kg, TIME CRITICAL MEDICATION , Priority: STAT, Start date: 05/17/16 16:39:00 PROMOTIONAL ADVERTISING ASSISTANT, Duration: 30 day, Stop date: 06/16/16 8:39:00 CDT Clindamycin No 600 mg, Mem oria 3-07 Route: l 22:39: IVPB, Damien 00 ABXQ8H, Dosing Weight 74.545, kg, Priority: STAT, Start date: 05/17/16 16:39:00 PROMOTIONAL ADVERTISING ASSISTANT, Duration: 30 day, Stop date: 06/16/16 8:39:00 CDT Saline No Notes: Memoria Flush 0.9% 3-07 (Same as: l 22:39: BD Damien Posiflush) Sodium No 1,000 mL, Memori a Chloride 3-07 Rate: 100 l 0.154 22:39: ml/hr, Lynco MEQ/ML 00 Infuse Injectable over: 10 Solution hr, Route: IV, Dosing Weight 74.545 kg, Total Volume: 1,000, Start date: 05/17/16 16:39:00 PROMOTIONAL ADVERTISING ASSISTANT, Duration: 30 day, Stop date: 06/16/16 16:38:00 CDT Acetaminoph No 100.4 F, M emoria en 3-07 Start l 22:39: date: Lynco 05/17/16 16:39:00 PROMOTIONAL ADVERTISING ASSISTANT, Duration: 30 day, Stop date: 06/16/16 16:38:00 CDT Clindamycin No 600 mg, 50 Memoria 3-07 mL, Route: l 18:31: IVPB, Drug form: INJ, ONCE, Dosing Weight 74.545, kg, Priority: STAT, Start date: 05/17/16 12:31:00 PROMOTIONAL ADVERTISING ASSISTANT, Stop date: 05/17/16 12:31:00 PROMOTIONAL ADVERTISING ASSISTANT Symbicort Yes 2 puff, Memor ia 160/4.5 [...] Albuterol No Notes: Memori a 0.833 MG/ML 07 (Same as: l / 19:00: Duoneb) Lynco Ipratropium 00 [place] 0.167 MG/ML Inhalant Solution [DuoNeb] Acetylcyste No 200 mg, 1 M emoria ine 200 5-07 mL, Route: l MG/ML 19:00: NEB, Drug Damien Inhalant 00 Form: Solution SOLN, Dosing Weight 68.182, kg, RQ6H, Start date: 07/18/15 14:00:00 CDT, Duration: 30 day, Stop date: 08/17/15 8:00:00 CDT Symbicort No Notes: Memori a 160/4.5 -07 (Same as: l inhalation 16:42: Symbicort) H ermann aerosol 00 WASTE: with Aerosol - adapter Return to Pharmacy [facility] No Notes: Memoria 5-07 (Same As: l 16:42: [facility]) Lynco 00 remove No Notes: Memoria patch 07 WASTE: F/P l 02:00: - P Waste Lynco 00 Black; E - P Waste Black Ipratropium No Notes: SEE Memoria [place] 0.2 5-05 RT l MG/ML 16:00: DOCUMENTAT Shravan n Inhalant 00 ION (Same Solution as:Atroven t) Levalbutero No Notes: SEE Memoria l 5-05 RT l 16:00: DOCUMENTAT Lynco 00 ION (Same as:Xopenex ) Non-Formul stefania Nicotine No Notes: Memoria 5-05 (Same as: l 14:00: Habitrol) [place] 00 WASTE: F/P - P Waste Black; E - P Waste Black Ipratropium No Notes: SEE [facility] [place] 0.2 5-05 RT l MG/ML 12:00: DOCUMENTAT [...] l / 07:00: Duoneb) Damien Ipratropium 00 [place] 0.167 MG/ML Inhalant Solution Levalbutero No Notes: [...] n 5-05 (Same As: l 03:00: Lipitor) [place] Plavix No Notes: [facility]oria 5-05 (Same As: l 03:00: Plavix) [place] 00 Levaquin No Notes: Memoria 5-05 (Same [...] MG/ML 5-05 (Same as: l :16: Duoneb) Ipratropium 00 [place] 0.167 MG/ML Inhalant Solution Sodium No 25 mL, Memoria Chloride 5-04 Route: IV, l 0.9% IV 23:14: Start [place] 00 date: 07/15/15 18:14:00 CDT, Duration: 30 day, Stop date: 08/14/15 18:13:00 CDT, PRN Line Flush BD Normal No Notes: Memori a Saline 5-04 (Same as: l Flush 23:14: BD Posiflush) Ipratropium No 500 Memori a 5-04 [...] Chloride 5-04 1,000 l 0.154 23:05: ml/hr, MEQ/ML 00 Infuse Injectable Over: 1 Solution hr, Route: IV, 1,000, Drug form: INJ, ONCE, Priority: STAT, Dosing Weight 68.182 kg, Start date: 07/15/15 18:05:00 CDT, Duration: 1 doses or times, Stop date: 07/15/15 18:05:00 CDT Magnesium No Notes: Memori a Sulfate 5-04 WASTE: F/P l 23:05: - Sink; E [place] 00 - [facility] Albuterol No Notes: Memori a 0.833 MG/ML 5-04 (Same as: l / 23:05: Duoneb) [place] Ipratropium 00 [place] 0.167 MG/ML Inhalant Solution [DuoNeb] Brovana No Notes: SEE Xiang bethany 07-14 RT l 13:00: DOCUMENTAT Damien 00 ION Same as [facility] atorvastati No Notes: Xiang bethany n - (Same As: l 02:00: Lipitor) Damien 00 Plavix No Notes: Memoria 5-04 (Same As: l 02:00: Plavix) [place] 00 Levofloxaci Yes 750 mg = 1 Memoria n 750 MG - tab, PO, l Oral Tablet 20:01: Q24H, X 10 Damien [Levaquin] 00 day, # 10 tab, 0 Refill(s) predniSONE Yes 40 mg = 2 Me moria 20 mg oral 5-03 tab, PO, l tablet 20:01: Daily, X 5 Danielle nn day, # 10 tab, 0 Refill(s) Brovana No Notes: SEE Xiang bethany 07-13 RT l 13:00: DOCUMENTAT [place] 00 ION Same as [facility] Protonix No Notes: Memoria - Tablet l 12:30: should not [place] 00 be chewed or crushed. (Same as: Protonix) Albuterol No Notes: Memori a 0.833 MG/ML 07-13 (Same as: l / 07:00: Duoneb) Ipratropium 00 [place] 0.167 MG/ML Inhalant Solution Solu-Medrol No Notes: Xiang bethany - (Same l 07:00: as:Solu-ME [place] 00 DROL, A-Methapre d) Melatonin No Notes: Memori a - (Same as: l 05:40: Melatonin) Damien 00 Acetaminoph No Notes: Do M emoria en 325 MG / 07-13 not exceed l Hydrocodone 05:39: 4gm/day of Damien Bitartrate 00 acetaminop 10 MG Oral hen. Tablet (Same as: [[place] 10/325] 325/10) Hydralazine No Notes: Xiang bethany -03 (Same as: l 05:39: Apresoline ) Push over 5 minutes Acetaminoph No Notes: Do M emoria en 07-13 not exceed l 05:39: 4 gm/day. [place] 00 (Same as: Tylenol) Tessalon No Notes: Memoria Perles 07-13 (Same As: l 05:39: Tessalon Perles) "Do Not Crush" Morphine No Notes: Memoria -03 (Same l 05:39: as:MORPhin e Sulfate) Loratadine No Notes: 1 Mem oria - hr before l 05:39: meals (Same as: Claritin) Bisacodyl No Notes: Memori a 07-13 (Same As: l 05:39: Dulcolax, Bisco-Lax) Ondansetron No Notes: Xiang bethany - (Same as: l 05:39: Zofran) MEDICATION WASTE Product Size: 4 mg Product Wasted: _0__ mg Simethicone No Notes: Xiang bethany - (Same as: l 05:39: Mylicon) Lorazepam No Notes: Memori a - (Same as: l 05:39: Ativan) Flagyl No Notes: Memoria 07-13 (Same as: l 05:32: Flagyl) Avoid alcohol. Levaquin No Notes: Memoria -03 (Same l 01:00: as:Levaqui n) Enoxaparin No [...] [Brovana] Saline No Notes: [facility]oria Flush 0.9% 5-03 (Same as: l 00:47: BD [place] 00 Posiflush) Sodium No 1,000 mL, Memori [...] / 5-03 (Same as: l Hydrocodone 00:47: [place] Danielle nn Bitartrate 00 325/5) Do 5 MG Oral not exceed Tablet 4gm/day of acetaminop hen. Docusate No Notes: Memoria 5-03 (Same as: l 00:47: Colace) [place] 00 Ondansetron No Notes: Xiang bethany 5-03 (Same as: l 00:47: Zofran) [place] 00 MEDICATION WASTE Product Size: 4 mg Product Wasted: _0__ mg Roflumilast No 0 Memori a 0.5 MG Oral 5-03 Refill(s) l Tablet 00:38: [place] [Daliresp] 00 Albuterol No 0 Memoria 0.833 MG/ML 5-03 Refill(s) l / 00:38: Damien Ipratropium 00 [place] 0.167 MG/ML Inhalant Solution atorvastati Yes 10 mg = 1 M emoria n 10 mg 5-03 tab, PO, l oral tablet 00:38: Bedtime, 0 [place] 00 Refill(s) Sodium No 25 mL, Memoria Chloride 07-12 Route: IV, l 0.9% IV 20:59: Start Damien 00 date: 07/13/15 15:59:00 CDT, Duration: 30 day, Stop date: 08/12/15 15:58:00 CDT, PRN Line Flush Albuterol No Notes: Memori a 0.833 MG/ML - (Same as: l / 20:50: Duoneb) [place] Ipratropium 00 [place] 0.167 MG/ML Inhalant Solution methylPREDN No Notes: Xiang bethany ISolone - (Same l SODium 20:50: as:Solu-ME Danielle nn SUCCinate 00 DROL, A-Methapre d) Saline No Notes: Memoria Flush 0.9% 07-12 (Same as: l 20:50: BD Damien 00 [...] Bin methylPREDN No Notes: Xiang bethany ISolone 2-23 (Same l SODium 06:00: as:Solu-ME Danielle nn SUCCinate 00 DROL, A-Methapre d) Albuterol No Notes: Memori a 0.833 MG/ML 2- (Same as: l / 01:00: Duoneb) Damien Ipratropium 00 [place] 0.167 MG/ML Inhalant Solution [DuoNeb] BD Normal No Notes: Memori a Saline 2-22 (Same as: l Flush 23:43: BD Damien 00 Posiflush) Sodium No IV, 0 Memoria Chloride 2-22 ml/hr, l 0.9% IV 23:42: PRN, PRN Shravan n 00 Line Flush, Start date: 02/22/16 17:42:00, Duration: 30, 25 ml Levaquin No Notes: Memoria 2-22 (Same l 23:00: as:Levaqui Damien 00 n) Tessalon No Notes: [facility]oria Perles -22 (Same As: l 22:18: Tessalon Perles) "Do Not Crush" Robitussin- No Notes: Xiang bethany AC oral - (Same As: l syrup 22:18: Robitussin Shravan n AC) Unknown Yes 2 puffs, [facility]ori a Home -22 INHALATION l Medication 21:24: , BID, Danielle nn experiment al drug no name, Refill(s) 0 PREDNISONE Yes 4 po daily M emoria 10 MG TABS 1-02 on days l 00:00: 1-4, 3 po [place] 00 daily on days 5-8, 2 po daily on days 9-12, 1 po daily on days 13-16 AUGMENTIN No 1 tablet Xiang bethany 875-125 MG 1-02 twice l TABS 00:00: daily for Damien 14 days PREDNISONE No 4 po daily M emoria 10 MG TABS 1-02 on days l 00:00: 1-4, 3 po [place] 00 daily on days 5-8, 2 po daily on days 9-12, 1 po daily on days 13-16 AUGMENTIN 2013-03 No 1 tablet Xiang bethany 875-125 MG 2-11 twice l TABS 00:00: daily for [place] 10 days DOXYCYCLINE 2013-03 No 1 tablet Me moria HYCLATE 100 2-09 twice l MG TABS 00:00: daily for Danielle nn 10 days SYMBICORT Yes Two puffs Mem oria 160-4.5 9-16 twice a l MCG/ACT 00:00: day. [place] AERO ALENDRONATE Yes 1 po Memori a SODIUM 70 9-16 weekly l MG TABS 00:00: [place] 00 SPIRIVA Yes Inhale one Xiang bethany HANDIHALER 9-16 capsule l 18 MCG CAPS 00:00: daily Danielle nn ARMOUR Yes 1 po qd Memoria THYROID 60 9-16 l MG TABS 00:00: Damien 00 CLOPIDOGREL Yes 1 po qd Mem oria [...] l oral tablet 16:06: Q12H, # 14 00 tab, 0 Refill(s) methylPREDN No 40 mg, Xiang bethany ISolone 3-07 Route: l SODium 00:00: IVP, Q6H, Shravan n SUCCinate 00 Dosing Weight 80.909, kg, Priority: Routine, Start date: 05/16/13 18:00:00, Duration: 30 day, Stop date: 06/15/13 12:00:00 Acetylcyste No 2 mL, Memor ia ine 100 3-06 Route: l MG/ML 22:00: NEB, Drug [place] Inhalant Form: Solution SOLN, Dosing Weight 80.909, kg, Q8H, Start date: 05/16/13 16:00:00, Duration: 30 day, Stop date: 06/15/13 8:00:00 acetylcyste No 200 mg, 1 M emoria ine 3-06 mL, Route: l 21:00: NEB, Drug Form: SOLN, RQ8H, Start date: 05/16/13 15:00:00, Duration: 30 day, Stop date: 06/15/13 7:00:00 Albuterol 2013-0 No 3 ml, Memoria 0.833 MG/ML 05-16 Route: l / 21:00: INHALATION Damien Ipratropium 00 , Drug [place] Form: 0.167 MG/ML SOLN, Inhalant Dosing Solution Weight [DuoNeb] 80.909, kg, RQ4H, Start date: 05/16/13 15:00:00, Duration: 30 day, Stop date: 06/15/13 11:00:00(S lizabeth as: Duoneb) Cipro 2013- No 400 mg, Memoria 05-16 200 mL, l 19:00: Route: IVPB, Drug form: INJ, [id number], Dosing Weight 80.909, kg, Start date: 05/16/13 13:00:00, Duration: 30 day, Stop date: 06/15/13 1:00:00Do not refrigerat e dexamethaso No 4 mg, 1 Mem oria ne 3-06 mL, Route: l 18:21: IV, Drug form: INJ, Q6H, Start date: 05/16/13 12:21:00, Duration: 30 day, Stop date: 06/15/13 12:00:00Co ncentratio n: 4mg/ml Sodium No 25 mL, Memoria Chloride 05-16 Route: IV, l 0.9% IV 18:18: Start date: 05/16/13 12:18:00, Duration: 30 day, Stop date: 06/15/13 13:17:00, PRN Line Flush BD Normal 2013-0 No 10 mL, Memori a Saline 3 Route: IV, l Flush 18:17: Drug Form: [...] tab, PO, l tablet 15:49: BID, 14 [place] 54 tab, Substituti on Allowed, TAB DuoNeb [...] inhalation 42 ea, solution Substituti on Allowed, Maintensarkis eDAWNA Combivent Yes 2 puff, Memor ia inhalation 09-11 INHALER, l aerosol 18:07: QID, 14 Damien with 00 gm, adapter Substituti on Allowed, [...] gm, aerosol Substituti with on adapter Allowed, Stephanie obrien, AERO levofloxaci Yes 500 mg, 1 M [...] bethany 09-11 200 mL, l 17:00: Route: IVPB, Drug form: INJ, [id number], Dosing Weight 80.028, kg, Start date: 09/11/12 [...] Stop date: 10/11/12 11:35:00 NS 1,000 mL 2012- No Pascual Brunner 1,000 mL, Memoria 09-11 Rate: 100 l 16:36: ml/hr, Damien 00 Infuse over: 10 hr, Route: IV, Dosing Weight 80.028 kg, Total Volume: 1,000, Start date: 09/11/12 11:36:00, Duration: 30 day, Stop date: 10/11/12 11:35:00 Vital Signs Vital Name Observation Time Observation Value Comments Source Height 2017-06-05 18:21:00 182.88 cm [facility] [place] BMI Calculated 2017-06-05 18:21:00 [facility] al [place] Weight 2017-06-05 18:21:00 [facility] [place] Systolic (mm Hg) 2017-06-05 18:21:00 Xiang rial [place] Diastolic (mm Hg) 2017-06-05 18:21:00 Mem orial [place] Weight 2017-04-24 20:45:00 [facility] [place] BMI Calculated 2017-04-24 20:45:00 [facility] al [place] Height 2017-04-24 20:45:00 182.88 cm [facility] [place] Heart Rate 2017-04-24 20:45:00 [facility] [place] Systolic (mm Hg) 2017-04-24 20:45:00 Xiang rial [place] Diastolic (mm Hg) 2017-04-24 20:45:00 Mem orial [place] Heart Rate 2016-06-28 20:00:00 [facility] [place] Respitory Rate 2016-06-28 20:00:00 [facility] al [place] Systolic (mm Hg) 2016-06-28 20:00:00 Xiang rial [place] Diastolic (mm Hg) 2016-06-28 20:00:00 [facility] [place] Temperature Oral (F) 2016-06-28 20:00:00 98.5 F [facility] [place] Systolic (mm Hg) 2016-06-28 16:00:00 Xiang rial [place] Diastolic (mm Hg) 2016-06-28 16:00:00 Mem orial [place] Respitory Rate 2016-06-28 16:00:00 [facility] al [place] Heart Rate 2016-06-28 16:00:00 [facility] [place] Temperature Oral (F) 2016-06-28 16:00:00 98.1 F [facility] [place] Temperature Oral (F) 2016-06-28 12:00:00 97.5 F [facility] [place] Heart Rate 2016-06-28 12:00:00 [facility] [place] Systolic (mm Hg) 2016-06-28 12:00:00 Xiang rial [place] Diastolic (mm Hg) 2016-06-28 12:00:00 Mem orial [place] Respitory Rate 2016-06-28 12:00:00 [facility] al [place] Weight 2016-06-22 03:50:00 [facility] [place] BMI Calculated 2016-06-22 03:50:00 [facility] al [place] Height 2016-06-22 03:50:00 182.88 cm [facility] [place] Weight 2016-06-21 18:45:00 [facility] [place] Height 2016-06-21 18:45:00 182.88 cm [facility] [place] BMI Calculated 2016-06-21 18:45:00 [facility] al [place] Heart Rate 2016-05-31 20:30:00 [facility] [place] Respitory Rate 2016-05-31 20:30:00 [facility] al [place] Temperature Oral (F) 2016-05-31 20:30:00 97.8 F [facility] [place] Weight 2016-05-31 20:30:00 [facility] [place] Diastolic (mm Hg) 2016-05-31 20:30:00 Mem orial [place] Systolic (mm Hg) 2016-05-31 20:30:00 Xiang rial [place] Systolic (mm Hg) 2016-05-18 22:11:00 Xiang rial [place] Diastolic (mm Hg) 2016-05-18 22:11:00 Mem orial [place] Heart Rate 2016-05-18 22:11:00 [facility] [place] Respitory Rate 2016-05-18 22:11:00 [facility] al [place] Temperature Oral (F) 2016-05-18 22:11:00 98.5 F [facility] [place] Temperature Oral (F) 2016-05-18 17:09:00 98.4 F [facility] [place] Heart Rate 2016-05-18 17:09:00 [facility] [place] Systolic (mm Hg) 2016-05-18 17:09:00 Xiang rial [place] Diastolic (mm Hg) 2016-05-18 17:09:00 Mem orial [place] Respitory Rate 2016-05-18 17:09:00 [facility] al [place] Temperature Oral (F) 2016-05-18 14:45:00 98.2 F [facility] [place] Respitory Rate 2016-05-18 14:45:00 [facility] al [place] Heart Rate 2016-05-18 14:45:00 [facility] [place] Systolic (mm Hg) 2016-05-18 14:45:00 Xiang rial [place] Diastolic (mm Hg) 2016-05-18 14:45:00 Mem orial [place] Height 2016-05-18 01:33:00 182.88 cm [facility] [place] BMI Calculated 2016-05-18 01:33:00 [facility] al [place] Weight 2016-05-18 01:33:00 [facility] [place] BMI Calculated 2016-05-17 17:50:00 [facility] al [place] Height 2016-05-17 17:50:00 182.88 cm [facility] [place] Weight 2016-05-17 17:50:00 [facility] [place] Systolic (mm Hg) 2015-07-20 16:05:00 Xiang rial [place] Diastolic (mm Hg) 2015-07-20 16:05:00 Mem orial [place] Respitory Rate 2015-07-20 16:05:00 [facility] al [place] Heart Rate 2015-07-20 16:05:00 [facility] [place] Temperature Oral (F) 2015-07-20 16:05:00 98.4 F [facility] [place] Temperature Oral (F) 2015-07-20 12:26:00 98.3 F [facility] [place] Respitory Rate 2015-07-20 12:26:00 [facility] al [place] Systolic (mm Hg) 2015-07-20 12:26:00 Xiang rial [place] Diastolic (mm Hg) 2015-07-20 12:26:00 Mem orial [place] Heart Rate 2015-07-20 12:26:00 [facility] [place] Respitory Rate 2015-07-20 09:30:00 [facility] al [place] Heart Rate 2015-07-20 09:30:00 [facility] [place] Systolic (mm Hg) 2015-07-20 09:30:00 Xiang rial [place] Diastolic (mm Hg) 2015-07-20 09:30:00 Mem orial [place] Temperature Oral (F) 2015-07-20 09:30:00 97.4 F [facility] [place] Height 2015-07-16 02:36:00 203.2 cm [facility] [place] BMI Calculated 2015-07-15 23:02:00 [facility] al [place] Height 2015-07-15 23:02:00 175.26 cm [facility] [place] Weight 2015-07-15 23:02:00 [facility] [place] Respitory Rate 2015-07-14 17:47:00 [facility] [place] Heart Rate 2015-07-14 17:47:00 [facility] [place] Systolic (mm Hg) 2015-07-14 17:47:00 Xiang rial [place] Diastolic (mm Hg) 2015-07-14 17:47:00 Mem orial [place] Temperature Oral (F) 2015-07-14 17:47:00 98.6 F [facility] [place] Respitory Rate 2015-07-14 13:00:00 [facility] al [place] Systolic (mm Hg) 2015-07-14 13:00:00 Xiang rial [place] Diastolic (mm Hg) 2015-07-14 13:00:00 Mem orial [place] Heart Rate 2015-07-14 13:00:00 [facility] [place] Temperature Oral (F) 2015-07-14 13:00:00 98 F [facility] [place] Temperature Oral (F) 2015-07-14 09:15:00 98.2 F [facility] [place] Heart Rate 2015-07-14 09:15:00 [facility] [place] Systolic (mm Hg) 2015-07-14 09:15:00 Xiang rial [place] Diastolic (mm Hg) 2015-07-14 09:15:00 Mem orial [place] Respitory Rate 2015-07-14 09:15:00 [facility] al [place] Height 2015-07-14 02:19:00 182.88 cm [facility] [place] Height 2015-07-14 02:13:00 182.88 cm [facility] [place] BMI Calculated 2015-07-13 18:47:00 [facility] [place] Weight 2015-07-13 18:47:00 [facility] [place] Height 2015-07-13 18:47:00 182.88 cm [facility] [place] Heart Rate 2015-05-07 18:43:00 [facility] [place] Temperature Oral (F) 2015-05-07 18:43:00 98 F [facility] [place] Systolic (mm Hg) 2015-05-07 18:43:00 Xiang rial [place] Diastolic (mm Hg) 2015-05-07 18:43:00 Mem orial [place] Respitory Rate 2015-05-07 18:43:00 [facility] al [place] Temperature Oral (F) 2015-05-07 14:07:00 98.1 F [facility] [place] Respitory Rate 2015-05-07 14:07:00 [facility] al [place] Systolic (mm Hg) 2015-05-07 14:07:00 Xiang rial [place] Diastolic (mm Hg) 2015-05-07 14:07:00 Mem orial [place] Heart Rate 2015-05-07 14:07:00 [facility] [place] Heart Rate 2015-05-07 09:20:00 [facility] [place] Systolic (mm Hg) 2015-05-07 09:20:00 Xiang rial [place] Diastolic (mm Hg) 2015-05-07 09:20:00 Mem o[facility] [place] Respitory Rate 2015-05-07 09:20:00 [facility] al [place] Temperature Oral (F) 2015-05-07 09:20:00 97.9 F [facility] [place] Weight 2015-05-04 21:15:00 [facility] [place] BMI Calculated 2015-05-04 21:15:00 [facility] [place] Height 2015-05-04 21:15:00 182.88 cm [facility] [place] Height 2015-05-04 21:07:00 182.88 cm [facility] [place] Weight 2015-05-04 21:07:00 [facility] [place] BMI Calculated 2015-05-04 21:07:00 [facility] [place] Temperature Oral (F) 2014-07-23 12:58:30 98.5 F [facility] [place] Respitory Rate 2014-07-23 12:58:30 [facility] [place] Heart Rate 2014-07-23 12:58:30 [facility] [place] Height 2014-07-23 12:58:30 [facility] [place] Weight 2014-07-23 12:58:30 [facility] [place] Systolic (mm Hg) 2014-07-23 12:58:30 Xiang rial [place] Diastolic (mm Hg) 2014-07-23 12:58:30 Mem orial [place] Height 2014-03-14 14:04:42 [facility] [place] Temperature Oral (F) 2014-03-14 14:04:42 97 F [facility] [place] Respitory Rate 2014-03-14 14:04:42 [facility] [place] Heart Rate 2014-03-14 14:04:42 [facility] [place] Systolic (mm Hg) 2014-03-14 14:04:42 Xiang rial [place] Diastolic (mm Hg) 2014-03-14 14:04:42 Mem orial [place] Height 2014-02-20 14:03:41 [facility] [place] Weight 2014-02-20 14:03:41 [facility] [place] Temperature Oral (F) 2014-02-20 14:03:41 98.3 F [facility] [place] Respitory Rate 2014-02-20 14:03:41 [facility] [place] Heart Rate 2014-02-20 14:03:41 [facility] [place] Systolic (mm Hg) 2014-02-20 14:03:41 Xiang rial [place] Diastolic (mm Hg) 2014-02-20 14:03:41 [facility] o[facility] [place] Height 2014-02-18 17:25:11 [facility] [place] Weight 2014-02-18 17:25:11 [facility] [place] Temperature Oral (F) 2014-02-18 17:25:11 98.3 F [facility] [place] Respitory Rate 2014-02-18 17:25:11 [facility] [place] Heart Rate 2014-02-18 17:25:11 [facility] [place] Systolic (mm Hg) 2014-02-18 17:25:11 Xiang rial [place] Diastolic (mm Hg) 2014-02-18 17:25:11 [facility] o[facility] [place] Height 2013-12-03 18:05:02 [facility] [place] Weight 2013-12-03 18:05:02 [facility] [place] Temperature Oral (F) 2013-12-03 18:05:02 98.3 F [facility] [place] Respitory Rate 2013-12-03 18:05:02 [facility] [place] Heart Rate 2013-12-03 18:05:02 [facility] [place] Systolic (mm Hg) 2013-12-03 18:05:02 Xiang rial [place] Diastolic (mm Hg) 2013-12-03 18:05:02 Mem orial [place] Systolic (mm Hg) 2013-11-26 18:55:21 Xiang rial [place] Diastolic (mm Hg) 2013-11-26 18:55:21 [facility] o[facility] [place] Weight 2013-11-26 18:55:21 [facility] [place] Temperature Oral (F) 2013-11-26 18:55:21 98.4 F [facility] [place] Respitory Rate 2013-11-26 18:55:21 [facility] [place] Heart Rate 2013-11-26 18:55:21 [facility] [place] Height 2013-11-26 18:55:21 [facility] [place] Temperature Oral (F) 2013-05-18 13:27:00 98.1 F [facility] [place] Respitory Rate 2013-05-18 13:27:00 [facility] [place] Heart Rate 2013-05-18 13:27:00 [facility] [place] Systolic (mm Hg) 2013-05-18 13:27:00 Xiang rial [place] Diastolic (mm Hg) 2013-05-18 13:27:00 Mem orial [place] Systolic (mm Hg) 2013-05-18 10:00:00 Xiang rial [place] Diastolic (mm Hg) 2013-05-18 10:00:00 Mem o[facility] [place] Temperature Oral (F) 2013-05-18 10:00:00 96.8 F [facility] [place] Respitory Rate 2013-05-18 10:00:00 [facility] [place] Heart Rate 2013-05-18 10:00:00 [facility] [place] Diastolic (mm Hg) 2013-05-18 05:35:00 Mem orial [place] Temperature Oral (F) 2013-05-18 05:35:00 96.5 F [facility] [place] Respitory Rate 2013-05-18 05:35:00 [facility] [place] Systolic (mm Hg) 2013-05-18 05:35:00 Xiang rial [place] Heart Rate 2013-05-18 05:35:00 [facility] [place] BMI Calculated 2013-05-16 17:59:00 [facility] [place] Weight 2013-05-16 17:59:00 [facility] [place] Height 2013-05-16 17:59:00 182.88 cm [facility] [place] Respitory Rate 2012-09-12 17:09:00 [facility] [place] Systolic (mm Hg) 2012-09-12 17:09:00 Xiang rial [place] Diastolic (mm Hg) 2012-09-12 17:09:00 [facility] o[facility] [place] Temperature Oral (F) 2012-09-12 17:09:00 96.9 F [facility] [place] Heart Rate 2012-09-12 17:09:00 [facility] [place] Diastolic (mm Hg) 2012-09-12 12:55:00 Mem o[facility] [place] Systolic (mm Hg) 2012-09-12 12:55:00 Xiang rial [place] Respitory Rate 2012-09-12 12:55:00 [facility] [place] Heart Rate 2012-09-12 12:55:00 [facility] [place] Temperature Oral (F) 2012-09-12 12:55:00 96.3 F [facility] [place] Systolic (mm Hg) 2012-09-12 09:36:00 Xiang rial [place] Diastolic (mm Hg) 2012-09-12 09:36:00 Mem orial [place] Heart Rate 2012-09-12 09:36:00 [facility] [place] Respitory Rate 2012-09-12 09:36:00 [facility] [place] Temperature Oral (F) 2012-09-12 09:36:00 96.9 F [facility] [place] Weight 2012-09-11 16:16:00 [facility] [place] Height 2012-09-11 16:16:00 182.88 cm [facility] Procedures Procedure Date / Time Performed Performing Clinician [facility] e smoking/tobacco 2013-11-26 18:55:21 [facility] cessation, patient education and counseling Appendectomy; [facility] [place] ORIF - Open reduction and [facility] internal fixation of fracture ORIF - Open reduction and Memori al [place] internal fixation of fracture Encounters Start End Encounter Admission Attending Care Care Encounter Source Date/Time Date/Time Type Type Clinicians Facility Department ID 2020-09-01 Inpatient MARCO DE DIOS MDA [id number] 14:28:05 David franks 2020-07-28 Outpatient [facility] MDA [id number] 08:16:37 PROVIDER Joel franks 2020-09-10 2020-09-10 Outpatient RK LOPEZ MDA, MDA [id number] 15:56:40 23:59:00 Joel o golden 2020-09-10 2020-09-10 Outpatient MARCO YOST MDA MDA [id number] 12:16:05 12:16:05 KENDAL franks 2020-09-03 2020-09-03 Outpatient MARCO ALVAREZ MDA MDA [id number] 14:10:00 23:59:00 HAILEE Maldonado o golden 2020-09-03 2020-09-03 Outpatient RK LOPEZ MDA, MDA [id number] 13:30:00 14:09:00 Joel o n 2020-09-03 2020-09-03 Outpatient MARCO ALVAREZ MDA MDA [id number] 12:30:00 13:29:00 HAILEE Joel franks 2020-09-01 2020-09-01 Outpatient RK LOPEZ MDA MDA [id number] MD 09:54:18 23:59:00 Joel franks 2020-08-29 2020-09-01 Inpatient BONNIE LAWRENCE MDA [facility] Surgery [id number] MD 09:13:00 14:18:00 RAMOSPRATIBHA franks 2020-08-04 2020-08-04 Outpatient MARCO MCCLELLAN MDA MDA [id number] MD 14:27:54 14:38:27 LUCIO franks 2017-11-29 2017-11-29 Outpatient Wyatt, MHMISCHER MHMISCHER [id number] 13:30:00 13:30:00 Roddy [facility] 2017-06-05 2017-06-05 Outpatient Wyatt, MHMISCHER MHMISCHER [id number] 13:15:00 23:59:59 [facility] 2017-04-24 2017-04-24 Outpatient Wyatt, MHMISCHER MHMISCHER [id number] 14:15:00 23:59:59 Roddy [facility] 2017-04-24 2017-04-24 Outpatient Wyatt, MHMISCHER MHMISCHER [id number] 14:15:00 23:59:59 [facility] 2017-04-12 2017-04-13 Outpatient MHMISCHER MHMISCHER [id number] 11:38:00 23:59:59 2016-05-30 2016-06-28 Outpatient Tsinopoulos [id number] 09:00:00 23:59:00 , Ebba [id number] Ning [id number] 5.15 Best 2016-06-21 2016-06-28 Outpatient Ishfaq, MH9 MH9 [id number] 13:24:00 19:30:00 Jose F 2016-05-31 2016-05-31 Outpatient Sahil Judd [id number] [facility] 14:30:00 14:30:00 Binta Crespo ks 2016-05-17 2016-05-18 Outpatient Crow Calzada MH9 [id number] 11:39:00 18:19:00 Ali 2015-07-15 2015-07-20 Outpatient , MH9 [id number] 18:00:00 12:31:00 Alicia Jefe 2015-07-13 2015-07-14 Outpatient , MH9 [id number] 13:41:00 15:50:00 Alicia 04 Jefe 2015-05-06 2015-05-07 Outpatient BrunnerPascual [place] [id number] 12:00:00 16:00:00 53 2014-07-31 2014-07-31 Outpatient DeFriece, [facility] [id number] 13:53:00 23:59:00 Ifeanyi Mu 2014-07-28 2014-07-28 Outpatient DeFriece, [facility] [id number] 16:00:00 23:59:00 Ifeanyi Mu 2013-11-27 2013-11-27 Outpatient DeFriece, [facility] [id number] 18:11:00 23:59:00 Ifeanyi Mu 2013-10-09 2013-10-09 Outpatient Lele, [facility] [id number] 08:55:00 23:59:00 Sriram 00 2013-05-17 2013-05-18 Outpatient Pascual Brunner [facility] [id number] 11:45:00 12:45:00 65 Results Test Description Test Time Test Comments Results Result Comments Source ACT-ISTAT 2020-04-25 09:23:00 Test Item Value Reference Range Interpretation Comme nts ACT-ISTAT (test code = ACTI) 246 SEC 74-137 H BASIC METABOLIC [id number] 09:14:00 Test Item Value Reference Range Interpretation [...] RECOLLECTION NEEDED ON 04/25/20 AT 0817 BY [email or web address]: POSSIBLE CONTAMINTION.NOTIFIED PATIENT CARE STAFF: AMYLIPID PROFILE [...] RECOLLECTION NEEDED ON 04/25/20 AT 0817 BY [email or web address]: POSSIBLE CONTAMINTION.NOTIFIED PATIENT CARE STAFF: [id number] 09:14:00 Test Item Value Reference Range Interpretation Comments MAGNESIUM (test code = MAG) 2.0 MG/DL 1.6-2.3 N RECOLLECTION NEEDED ON 04/25/20 AT 0817 BY [email or web address]: POSSIBLE CONTAMINTION.NOTIFIED PATIENT CARE STAFF: AMYBASIC METABOLIC [id number] 09:02:00 Test Item Value Reference Range Interpretation [...] RECOLLECTION NEEDED ON 04/25/20 AT 0817 BY [email or web address]: POSSIBLE CONTAMINTION.NOTIFIED PATIENT CARE STAFF: AMYLIPID PROFILE [...] RECOLLECTION NEEDED ON 04/25/20 AT 0817 BY [email or web address]: POSSIBLE CONTAMINTION.NOTIFIED PATIENT CARE STAFF: [id number] 09:02:00 Test Item Value Reference Range Interpretation Comments MAGNESIUM (test code = MAG) MG/DL 1.6-2.3 RECOLLECTION NEEDED ON 04/25/20 AT 0817 BY Z.LAB.CK9UHPYEQ: POSSIBLE CONTAMINTION.NOTIFIED PATIENT CARE STAFF: [facility]OLIC [id number] 08:52:00 Test Item Value Reference Range Interpretation [...] RECOLLECTION NEEDED ON 04/25/20 AT 0817 BY Z.LAB.NC5MVHORU: POSSIBLE CONTAMINTION.NOTIFIED PATIENT CARE STAFF: AMYLIPID PROFILE [...] RECOLLECTION NEEDED ON 04/25/20 AT 0817 BY Z.LAB.HD7NXYLTU: POSSIBLE CONTAMINTION.NOTIFIED PATIENT CARE STAFF: DIJAYJPSDNLLXUK0504-10-32 08:52:00 Test Item Value Reference Range Interpretation Comments MAGNESIUM (test code = MAG) MG/DL 1.6-2.3 RECOLLECTION NEEDED ON 04/25/20 AT 0817 BY JESSECF8IGCXBU: POSSIBLE CONTAMINTION.NOTIFIED PATIENT CARE STAFF: LESLIE [id number] 06:44:00 Test Item Value Reference Range Interpretation [...] syste manish embolism. 3.0 - 4.5 PTT [id number] 06:44:00 Test Item Value Reference Range Interpretation Comments PTT ACTIVATED (test code = APTT) 23.6 SECONDS 25.1-36.5 L CBC W/AUTO [id number] 06:33:00 Test Item Value Reference Range Interpretation [...] 0.0-0.1 N NRBC#) COVID 19 Asymptomatic IH [id number] 05:24:00 Test Item Value Reference Range Interpretation [...] in the sample." - INS GASTRO TUBE [id number] 15:10:00 [facility] 1945 Sex: M Name: SHIRLENE NICHOLAS [facility] : 1945ge/S: 74 / M [address] [address] Unit #: [id number] Loc: [place] [address] Phys: Sapna Rosas MD Acct: [id number] Dis Date: [id number] Status: DIS IN PHONE#: [phone] Exam Date: 01/02/2020 1200 FAX #: Reason: THROAT CA EXAMS: CPT: [id number] INS GASTRO TUBE PERC 57059 Fluoro Time:00:24 DAP (Gy m2): 1 Air Kerma (mGy): 0.27 C3 Procedure: A borted gastrostomy tube Indication: Dysphagia. Head and neck cancer. Date: 01/02/2020 Operators: Jason Rosa M.D. Medications: 1 mg IV glucagon IV Versed, and IV fentanyl Khgq-ll-xhua time: Approximately 30 minutes. Complications: None immediate [...] left. IV glucagon was administered. Through a 5-Taiwanese Kumpe catheter which was placed in the [...] 1 Signed Report (CONTINUED) Name: SHIRLENE NICHOLAS [place] : 1945 Age/S: 74 / M [address] [facility] Unit #: [id number] Loc: [place] [address] Phys: Sapna Rosas MD Acct: [id number] Dis Date: [id number] Status: DIS IN PHONE #: [phone] Exam Date: 01/02/2020 1200 FAX #: Reason: THROAT CA EXAMS: CPT: [id number] INS GASTRO TUBE PERC 71425 Fluoro Time: 00:24 DAP (Gy m2): 1 Air Kerma (mGy): 0.27 <Continued> at 1510 Reported and signed by: Jason Rosa M.D. CC: Sapna Rosas MD; Morteza Arriaza MD PAGE 2 Signed Report Name: SHIRLENE NICHOLAS [place] : 1945 Age/S: 74 / M [address] [facility] Unit #: [id number] Loc: [place] [address] Phys: Sapna Rosas MD Acct: [id number] Dis Date: [id number] Status: DIS IN PHONE #: [phone] Exam Date: 01/02/2020 1200 FAX #: Reason: THROAT CA EXAMS: CPT: [id number] INS GASTRO TUBE PERC 76077 Fluoro Time: 00:24 DAP (Gy m2): 1 Air Kerma (mGy): 0.27 <Continued> Technologist: Kanika Garcia Trnmob Date/Time: 01/23/2020 (151 0) tVERENAR.[email or web address] Orig Print D/T: S: 01/23/2020 (3061) PAGE 3 Signed ReportGLUCOSE BEDSIDE TESTING 2020-01-08 11:44:00 Test Item Value Reference Range Interpretation Comments GLUCOSE BEDSIDE TESTING (test code 131 mg/dL 70-110 H = GLUBED) GLUCOSE BEDSIDE [id number] 07:59:00 Test Item Value Reference Range Interpretation Comments GLUCOSE BEDSIDE TESTING (test code = 79 mg/dL 70-110 N GLUBED) GLUCOSE BEDSIDE [id number] 06:23:00 Test Item Value Reference Range Interpretation Comments GLUCOSE BEDSIDE TESTING (test code = 87 mg/dL 70-110 N GLUBED) GLUCOSE BEDSIDE [id number] 11:37:00 Test Item Value Reference Range Interpretation Comments GLUCOSE BEDSIDE TESTING (test code 101 mg/dL 70-110 N = GLUBED) GLUCOSE BEDSIDE [id number] 08:43:00 Test Item Value Reference Range Interpretation Comments GLUCOSE BEDSIDE TESTING (test code 114 mg/dL 70-110 H = GLUBED) GLUCOSE BEDSIDE [id number] 20:55:00 Test Item Value Reference Range Interpretation Comments GLUCOSE BEDSIDE TESTING (test code = 86 mg/dL 70-110 N GLUBED) - XR SWLW FUNC W/C [id number] 12:12:00 [facility] : 1945 Sex: M Name: SHIRLENE NICHOLAS [facility] : 1945ge/S: 74 / M [address] [address] Unit #: [id number] Loc: [place] [address] Phys: Sapna Rosas MD Acct: [id number] Dis Date: Status: ADM IN PHONE#: [phone] Exam Date: 01/06/2020 1000 FAX #: Reason: MBS EXAMS: CPT: [id number] XR SWLW FUNC W/C V 51526 Fluoro Time:132 DAP (Gy m2): Air Kerma [...] MD PAGE 1 Signed Report Name: [place] : 1945 Age/S: 74 / M [address] [address] Unit #: [id number] Loc: [place] [address] Phys: Sapna Rosas MD Acct: [id number] Dis Date: Status: ADMIN PHONE #: [phone] Exam Date: 01/06/2020 1000 FAX #: Reason: [facility] [place] EXAMS: CPT: [id number] XR SWLW FUNC W/C V 17211 Fluoro Time: 132 DAP (Gy m2): Air Kerma (mGy): 8.79 <Continued> Technologist: Wayne Cleary, RT(R)(CT) Trnscb Date/Time: 01/06/2020 (1212) t.ANS4 Orig Print D/T: S: 01/06/2020 (8856) PAGE 2 Signed ReportGLUCOSE BEDSIDE [id number] 11:57:00 Test Item Value Reference Range Interpretation Comments GLUCOSE BEDSIDE TESTING (test code 136 mg/dL 70-110 H = GLUBED) GLUCOSE BEDSIDE [id number] 10:25:00 Test Item Value Reference Range Interpretation Comments GLUCOSE BEDSIDE TESTING (test code 105 mg/dL 70-110 N = GLUBED) - XR CHEST 1 [id number] 07:39:00 [facility] : 1945 Sex: M Name: SHIRLENE NICHOLAS [place] : 1945ge/S: 74 / M [address] [address] Unit #: [id number] Loc: [place] [address] Phys: Magen Hammond MD Acct: [id number] Dis Date: Status: ADM IN PHONE#: [phone] Exam Date: 01/06/2020 0605 FAX #: Reason: pneumnonia EXAMS: CPT: [id number] XR CHEST 1 V 17078 Fluoro Time: DAP (Gy m2): Air Kerma [...] PAGE 1 Signed Report Name: [facility] [place] : 1945 Age/S: 74 / M [address] [address] Unit #: [id number] Loc: [place] [address] Phys: Magen Hammond MD Acct: [id number] Dis Date: Status: ADM IN PHONE #: [phone] ExamDate: 01/06/2020604 FAX #: Reason: pneumnonia EXAMS: CPT: [id number] XR CHEST 1 V 23073 Fluoro Time: DAP (Gy m2): Air Kerma (mGy): <Continued> Technologist: Tati Buchanan, RT(R)(CT) Trnscb Date/Time: 01/06/2020 (0739) t.ISISRJimyHV2 Orig Print D/T: S: 01/06/2020 (0742) PAGE 2 Signed ReportGLUCOSE BEDSIDE [id number] 04:31:00 Test Item Value Reference Range Interpretation Comments GLUCOSE BEDSIDE TESTING (test code = 89 mg/dL 70-110 N GLUBED) GLUCOSE BEDSIDE [id number] 20:49:00 Test Item Value Reference Range Interpretation Comments GLUCOSE BEDSIDE TESTING (test code 109 mg/dL 70-110 N = GLUBED) GLUCOSE BEDSIDE [id number] 12:37:00 Test Item Value Reference Range Interpretation Comments GLUCOSE BEDSIDE TESTING (test code 160 mg/dL 70-110 H = GLUBED) - CT CHEST W/O [id number] 10:09:00 [facility] : 1945 Sex: M Name: SHIRLENE NICHOLAS [facility] : 1945ge/S: 74 / M [address] [address] Unit #: [id number] Loc: [place] [address] Phys: Sapna Rosas MD Acct: [id number] Dis Date: Status: ADM IN PHONE#: [phone] Exam Date: 01/05/202058 FAX #: Reason:TANIKA CONGESTION EXAMS: CPT: [id number] CT CHEST W/O CONTRAST 09062 EXAM: - CT CHEST W/O CONTRAST INDICATION: [...] 1 Signed Report (CONTINUED) Name: SHIRLENE NICHOLAS [facility] [place] : 1945 Age/S: 74 / M [address] [facility] [address] [place] Unit #: [id number] Loc: [place] [address] Phys: Sapna Rosas MD Acct: [id number] Dis Date: Status: ADM IN PHONE #: [phone] ExamDate: 01/05/202058 FAX #: Reason: TANIKA CONGESTION EXAMS: CPT: [id number] CT CHEST W/O CONTRAST 67220 <Continued> at 1009 Reported and signed by: Lalo Lao M.D. CC: Sapna Rosas MD; Morteza Arriaza MD Tech nologist:Anne-Marie Cuevas, RT(R)(CT) CTDI: DLP: Trnscb Date/Time: 01/05/2020 (1001) t.ISISR.AH26 Orig Print D/T: S: 01/05/2020 (1018) PAGE 2 Signed ReportGLUCOSE BEDSIDE [id number] 07:56:00 Test Item Value Reference Range Interpretation Comments GLUCOSE BEDSIDE TESTING (test code 137 mg/dL 70-110 H = GLUBED) GLUCOSE BEDSIDE [id number] 00:33:00 Test Item Value Reference Range Interpretation Comments GLUCOSE BEDSIDE TESTING (test code 162 mg/dL 70-110 H = GLUBED) - CT ABD PELVIS W/EVEZ3231-07-94 13:06:00 [facility] : 1945 Sex: M Name: SHIRLENE NICHOLAS [facility] : 1945ge/S: 74 [facility] [address] [facility] Unit #: [id number] Loc: [place] [address] Phys: Sapna Rosas MD Acct: [id number] Dis Date: Status: ADM IN PHONE#: [phone] Exam Date: 01/04/2020 1230 FAX #: Reason:abd pain EXAMS: CPT: [id number] CT ABD PELVIS W/CONT 02348 CT abdomen and pelvis with IV contrast. [...] 1 Signed Report (CONTINUED) Name: SHIRLENE NICHOLAS [place] : 1945 Age/S: 74 / M [address] [facility] Unit #: [id number] Loc: [place] [address] Phys: Sapna Rosas MD Acct: [id number] Date: Status: ADM IN PHONE #: [phone] Exam Date: 01/04/2020 1234 FAX #: Reason: abd pain EXAMS: CPT: [id number] CT ABD PELVIS W/CONT 35480 <Continued> Interval development of upper abdominal foci [...] Abbasi, RT(R) CTDI: DLP: Trnscb Date/Time: 01/04/2020 (5866) t.SDR.RH16 Orig Print D/T: S: 01/04/2020 (6190) PAGE 2 Signed Report- XR ABDOMEN 1 [id number] 08:50:00 [facility] : 1945 Sex: M Name: SHIRLENE NICHOLAS [facility] : 1945ge/S: 74 / M [address] [address] Unit #: [id number] Loc: [place] [address] Phys: Sapna oRsas MD Acct: [id number] Dis Date: Status: ADM IN PHONE#: [phone] Exam Date: 01/04/2020 0837 FAX #: Reason: abd pain EXAMS: CPT: [id number] XR ABDOMEN 1 V 26892 Fluoro Time: DAP (Gy m2): Air Kerma [...] 1 Signed Report Name:SHIRLENE NICHOLAS [facility] : 1945 Age/S: 74 / M [address] [address] Unit #: [id number] Loc: [place] [address] Phys: Sapna Rosas MD Acct: [id number] Dis Date: Status: ADM IN PHONE #: [phone] Exam Date: 01/04/2020 0837 FAX #: Reason: abd pain EXAMS: CPT: [id number] XR ABDOMEN 1 V 14708 Fluoro Time: DAP(Gy m2): Air Kerma (mGy): <Continued> Technologist: Anne-Marie Cuevas RT(R)(CT) Trnscb Date/Time: 01/04/2020 (0850) tTIMMY.RH16 Orig Print D/T: S: 01/04/2020 (0853) PAGE 2 Signed Report- XR CHEST 1 [id number] 08:50:00 [facility] : 1945 Sex: M Name: SHIRLENE NICHOLAS [place] : 1945ge/S: 74 / M [address] [address] Unit #: [id number] Loc: [place] [address] Phys: Sapna Rosas MD Acct: [id number] Dis Date: Status: ADM IN PHONE#: [phone] Exam Date: 01/04/2020 0837 FAX #: Reason: cough EXAMS: CPT: [id number] XR CHEST 1 V 57505 Fluoro Time: DAP (Gy m2): Air Kerma [...] MD PAGE 1 Signed Report Name:SHIRLENE NICHOLAS [place] : 1945 Age/S: 74 / M [address] [address] Unit #: [id number] Loc: [place] [address] Phys: Sapna Rosas MD Acct: [id number] Dis Date: Status: ADM IN PHONE #: [phone] Exam Date: 01/04/2020 0837 FAX #: Reason: cough EXAMS: CPT: [id number] XR CHEST 1 V 33852 Fluoro Time: DAP(Gy m2): Air Kerma (mGy): <Continued> Technologist: Anne-Marie Cuevas RT(R)(CT) Trnscb Date/Time: 01/04/2020 (1850) tVERENAR.RH16 Orig Print D/T: S: 01/04/2020 (6509) PAGE 2 Signed ReportBASIC METABOLIC [id number] 10:05:00 Test Item Value Reference Range Interpretation [...] code = CA) 7.4 MG/DL 8.5-10.1 L [id number] 10:05:00 Test Item Value Reference Range Interpretation Comments MAGNESIUM (test code = MAG) 1.7 MG/DL 1.8-2.4 L PROTHROMBIN [id number] 09:57:00 Test Item Value Reference Range Interpretation Comments PT PATIENT (test code = PTP) 11.5 SECONDS 9.3-12.9 N INTERNATIONAL NORMAL RATIO 1.02 INR Unit 0.8-1.2 N (test code = INR) CBC W/AUTO [id number] 09:50:00 Test Item Value Reference Range Interpretation [...] = MDIFF) - CT ABD PELVIS W/O [id number] 10:46:00 [facility] : 1945 Sex: M Name: SHIRLENE NICHOLAS [facility] : 1945ge/S: 74 / M [address] [address] Unit #: [id number] Loc: [place] [address] Phys: Jason Rosa MD Acct: [id number] Dis Date: Status: ADM IN PHONE#: [phone] Exam Date: 01/02/2020 1008 FAX #: Reason:PEG placement planning EXAMS: CPT: [id number] CT ABD PELVIS W/O CONT 75522 EXAM: CT pelvis abdomen and without contrast [...] NICHOLAS : 1945 Age/S: 74 / M [address] [address] Unit #: [id number] Loc: [place] [address] Phys: Jason Rosa MD Acct: [id number] Dis Date: Status: ADM IN PHONE #: [phone] Exam Date: 01/02/2020 1003 FAX #: Reason: PEG placement planning EXAMS: CPT: [id number] CT ABD PELVIS W/O CONT 36208 <Continued> Evaluation of the bladder is limited, [...] 2 Signed Report (CONTINUED) Name: SHIRLENE NICHOLAS [place] : 1945 Age/S: 74 / M [address] [address] Unit #: [id number] Loc: [place] [id number] Phys: Jason Rosa MD Acct: [id number] Dis Date: Status: ADM IN PHONE #: [phone] Exam Date: 01/02/2020 1007 FAX #:Reason: PEG placement planning EXAMS: CPT: [id number] CT ABD PELVIS W/O CONT 39341 <Continued> at 1046 Reported and signed by: French Vazquez M.D. CC: Sapna Rosas MD; Jason Rosa MD; Morteza Arriaza MD Technologist:Viola Leger, RT(R) CTDI: DLP: Trnscb Date/Time: 01/02/2020 (3431) t.SDR.HPD Orig Print D/T: S: 01/02/2020 (0029) PAGE 3 Signed ReportCOVID 19 INHOUSE [id number] 13:50:00 Test Item Value Reference Range Interpretation Comments COVID 19 INHOUSE AG NEGATIVE Negative Per manu facturer, (test code = negative result s should [id number]) be treated aspr esumptive and, if inconsi [...] symptoms co nsistent with COVID-19. CBC W/AUTO [id number] 12:12:00 Test Item Value Reference Range Interpretation [...] NO DIFF/SCN CRITERIA = MDIFF) BASIC METABOLIC [id number] 12:12:00 Test Item Value Reference Range Interpretation [...] code = CA) 8.5 MG/DL 8.5-10.1 N BGNRHWTYFDHD6343-73-37 10:27:83259Jkapssih FpcqiihQLSQCAIBSCQK7941-74-60 10:27:000.51[facility] GegakrdYTHNSQEISBQI8972-34-67 10:27:0026[facility] FDILRQVDCUXZ0255-57-59 10:27:0097[facility] HyiryijHNXCYSFXGBJD7668-29-31 10:27:00 3.7[facility] DqlofivWVARQQFQQEWH6071-62-36 10:27:007.8[facility] OCXOAQQFJSUY4786-25-66 10:27:35683Rpmjuyeh VplmvfjWZFYKNDRTQWY3022-70-53 10:27:0012.7[facility] BjtymgrCOCNZDYSIFVS8212-65-72 10:27:007[facility] RBSMUATELXCV9971-71-61 10:27:08375Mtsspamk HermannBACTERIAL - LRFYUNZR4676-06-07 15:36:00Negative (06/23/16 10:36 AM)[facility] HermannBODY FMGLKN3248-36-86 15:36:0050[facility] HermannBODY IJUPPP8829-48-71 15:36:12495Pspnbwlu HermannBODY DMYAGD0518-92-63 15:36:00Colorless (06/23/16 10:36 AM)[facility] HermannBODY FLUIDS 2016-06-23 15:36:00 Test Item Value Reference Range Interpretation Comments Tube Num CSF (test code = Tube Num CSF) 4 1 [facility] HermannBODY HFILQH3222-63-66 15:36:67092Rewwhvbt HermannBODY FLUIDS 2016-06-23 15:36:00Clear (06/23/16 10:36 AM)[facility] HermannBODY ZPRSTV4231-11-06 15:36:0073[facility] HermannBODY ANPHLB8401-77-06 15:36:00Colorless (06/23/16 10:36 AM)[facility] HermannBODY CUBKZG4078-81-37 15:36:0082[facility] HermannBODY LSQMEY1370-38-63 15:36:005[facility] HermannBODY NMUBBY2516-81-13 15:36:0012 [facility] HermannBODY BVHQIE2515-88-72 15:36:001[facility] HermannIMMUNOLOGY 2016-06-23 15:36:00Non Reactive (06/23/16 10:36 AM)[facility] HermannVIRAL - GNIABWHI4621-35-45 15:36:00Negative (06/23/16 10:36 AM)[facility] HermannTOXICOLOGY 2016-06-23 14:34:014667Sdhbraoo AbqhoenZGVZWWVWDF5475-08-57 14:34:0011.2[facility] HermannBACTERIAL - MXIPDHDB4776-87-12 09:34:00Urine *NA*(06/23/16 4:34 AM) [facility] HermannBACTERIAL - TWJUEDNY1268-94-81 09:34:00Negative (06/23/16 4:34 AM)[facility] DazcuheYFSVVDJYZLKV9055-99-61 09:20:55551Esomaahb Damien SBOQKDCQFBUB1142-60-99 09:20:0010[facility] WrfjxwpBCBKWDZXIIFA2242-62-81 09:20:00 98[facility] EhzwsjjHRNAUOFTQFHS3565-45-14 09:20:000.68[facility] NNDJIRMJJJVS3300-76-87 09:20:004.1[facility] LbckrpaOSFVLPIXLLFO3748-36-13 09:20:0097[facility] GuvflfgHNOGAGMLWPET0815-36-23 09:20:0017.1[facility] PNLXKVFBBXKI6138-22-40 09:20:007.9[facility] UcclochLLBSBFZBWZFF8475-16-65 09:20:0019[facility] DpnqzcyICXCNGRPKBGG3591-02-34 09:20:0098[facility] HermannCHEM LGSUS3490-19-62 09:19:0082[facility] HermannCHEM GSDIK0494-49-81 09:19:0012 [facility] HermannCHEM DMHUY3076-86-90 09:19:52442Jqeetzea HermannCHEM PANEL 2016-06-22 09:19:000.67[facility] HermannCHEM JZWVQ6241-12-27 09:19:003.7[facility] HermannCHEM YKNAF6209-11-38 09:19:0098[facility] HermannCHEM EARNR3075-30-16 09:19:0023[facility] HermannCHEM EEWSG2349-55-12 09:19:008.0[facility] HermannCHEM TZMNG2464-78-29 09:19:0097[facility] HermannCHEM TCWTU2269-42-33 09:19:0015.7 [facility] KrvhdnyZCAANYVJIB0217-94-70 09:19:009.6[facility] HermannHEMATOLOGY 2016-06-22 09:19:0097[facility] DeopdxvVWBJASLVGE5148-94-54 09:19:008.3[facility] FwsjevnWNZRVWUJOJ0788-40-78 09:19:004.78[facility] XzvhypdVPZQZYYJOH6502-28-15 09:19:0016.3[facility] EnerlrxSPNDWZLIWP1764-62-18 09:19:0034.0[facility] WKTTLLOTFX9808-96-63 09:19:0013.7[facility] ZuljnbuBEVPPMVEIV8052-04-64 09:19:00 48.0[facility] YgxdhegEWVEUPASMJ2001-89-57 09:19:27086.4[facility] HermannHEMATOLOGY 2016-06-22 09:19:00 Test Item Value Reference Range Interpretation Comments MCH (test code = MCH) 34.2 pg 27.0-31.0 [facility] EyankcnJJJXDSKEUL6099-33-31 09:19:001+ *ABN*(06/22/16 4:19 AM)[facility] MwybsbxYGMAYGNGBG2864-65-57 09:19:001.0[facility] YkqzovzGXCALCFLUB7492-00-60 09:19:000.2[facility] UcxodeqAONRVFDKNJ7672-04-94 09:19:0012.1[facility] IQTCMHPOWB5003-56-73 09:19:005.5[facility] LkmibwkJMIVEJSSQX9519-68-92 09:19:00 81.7[facility] JntxzplVWKOQTXFRD7379-33-09 09:19:000.5[facility] HermannHEMATOLOGY 2016-06-22 09:19:000.5[facility] VhdtqjlUGBOVPAVFV6458-81-59 09:19:006.8[facility] YfwekghDNRTNVNUWR5404-17-10 08:24:0057.8[facility] HermannCHEM ZWWKU6130-61-34 00:57:001.6[facility] HermannURINE AND OVPCX0714-39-35 22:17:00Negative *NA*(06/21/16 5:17 PM)[facility] HermannURINE AND HMDSJ1041-76-01 22:17:00Slight *ABN*(06/21/16 5:17 PM)[facility] HermannURINE AND ZSIYA5252-38-12 22:17:005.0 [facility] HermannURINE AND HTUMW8493-21-41 22:17:001.023[facility] HermannURINE AND PJULG3152-08-08 22:17:00Yellow *NA*(06/21/16 5:17 PM)[facility] HermannURINE AND YQFRU4652-38-45 22:17:00Small *ABN*(06/21/16 5:17 PM)[facility] HermannURINE AND PQIMY7813-62-56 22:17:00Negative (06/21/16 5:17 PM)[facility] HermannURINE AND MHOSP5577-65-91 22:17:00Negative (06/21/16 5:17 PM)[facility] HermannCARDIAC IKFKBPG8290-92-59 21:15:000.02[facility] HermannCARDIAC IQMGPXW3343-91-91 21:15:00 <0.5[facility] HermannCARDIAC NBUKKKG8193-83-39 21:15:0049[facility] CARDIAC TNERDZQ0511-07-73 21:15:00<1.0[facility] HermannCHEM VWFSO6561-77-99 21:15:0025[facility] HermannCHEM JUYVC7854-35-56 21:15:003.6[facility] HermannCHEM TGECO0102-48-53 21:15:000.9[facility] HermannCHEM DETHL1476-06-15 21:15:0056 [facility] HermannCHEM NXGMV0733-35-45 21:15:0024[facility] HermannCHEM PANEL 2016-06-21 21:15:000.7[facility] HermannCHEM TLSNW6701-39-07 21:15:003.2[facility] HermannCHEM AQHLN2639-82-11 21:15:0031[facility] HermannCHEM RMTZB1292-09-39 21:15:006.8[facility] NpvjvjfMLRNPLYRAW5422-17-51 21:15:00 Test Item Value Reference Range Interpretation Comments PT (test code = PT) 12.4 s 12.0-14.7 [facility] UlnevifRXJGLVNCUT6839-11-64 21:15:000.91[facility] HermannHEMATOLOGY 2016-06-21 21:15:009.2[facility] KawreroDASAMSYZPV9468-46-23 21:15:0013.6[facility] CdtesglLNGGGQPGRM7221-26-48 21:15:0016.4[facility] UhuiyciLKFSZOYJHI2381-73-25 21:15:0034.3[facility] NmfudmtTNJJKQXIZZ6565-09-28 21:15:0099[facility] HEIWREKXCV7129-52-84 21:15:0099.1[facility] FcdaoipDDOQXBCRKX1339-87-68 21:15:00 Test Item Value Reference Range Interpretation Comments MCH (test code = MCH) 34.0 pg 27.0-31.0 [facility] QvvykkyWXMVTYZGRU2642-54-52 21:15:0047.9[facility] HermannHEMATOLOGY 2016-06-21 21:15:0010.1[facility] FloqsqdULONTLGIKH6571-79-36 21:15:004.83[facility] XynzublPBDIJRCEMM6218-78-27 21:15:00 Test Item Value Reference Range Interpretation Comments PTT (test code = PTT) 28.2 s 22.9-35.8 [facility] XoidgpmSOKLKHLQFH7253-58-41 21:15:001.0[facility] HermannHEMATOLOGY 2016-06-21 21:15:0085.4[facility] XpukbisIYFVNAWWZD6146-62-10 21:15:000.3[facility] XzslnncUBACQGESAD5419-57-15 21:15:000.2[facility] VmvoxlyQWFKTDSBFU1604-37-78 21:15:0010.2[facility] LifwxqlTBNSSSFAWX1537-06-79 21:15:003.9[facility] OKMMAESRJI7609-63-80 21:15:000.4[facility] WndsmtnYYFLOKTSZL3414-28-17 21:15:008.6 [facility] AofqrckLUUAINEHCC2647-19-34 21:15:00Normal (06/21/16 4:15 PM)[facility] PhxnoelBTFRJMKTYU7090-78-62 21:15:00Normal (06/21/16 4:15 PM)[facility] APVUJ5010-10-29 21:15:00Negative (06/21/16 4:15 PM)[facility] HermannVIRAL - EZWEDOUW5508-84-85 21:15:00Negative (06/21/16 4:15 PM)[facility] HermannVIRAL - EALBQOUS4467-70-47 21:15:00Negative (06/21/16 4:15 PM)[facility]annCHEM PANEL 2016-05-18 11:43:0092[facility] HermannCHEM KBCNT0678-16-54 11:43:0049[facility]annCHEM NYRSY2334-02-69 11:43:000.6[facility]annCHEM DSHVJ7545-66-57 11:43:005.0[facility]annCHEM JVVRT8092-12-21 11:43:0023[facility]annCHEM QWQBJ3874-79-47 11:43:0023[facility]annCHEM BFOBD1883-99-84 11:43:002.5 [facility]annCHEM JRKQF9339-28-90 11:43:002.5[facility] HermannCHEM PANEL 2016-05-18 11:43:001.0[facility]annCHEM FHJSE9536-94-52 11:43:0021[facility]annCHEM VJSRK1529-56-32 11:43:0011[facility]annCHEM RCHGE3750-89-62 11:43:000.76[facility]annCHEM OGNDI8958-06-24 11:43:0014.6[facility] CHEM ZIWOK1797-30-58 11:43:008.0[facility] HermannCHEM MDARF6754-97-80 11:43:003.6 [facility]annCHEM PDGPK1456-89-18 11:43:83057Lgwahigd HermannCHEM PANEL 2016-05-18 11:43:0095[facility]annCHEM LJAHC7809-70-27 11:43:97461Mkunvrve HermannCHEM MVPOM7690-89-00 11:43:008[facility] XoanwpeXGMCIGMLTM5255-71-73 11:43:003.1[facility] BvjunxaWBCJBEKFRZ7939-47-98 11:43:001.4[facility] GLZFKYPBIK7590-64-44 11:43:003.2[facility] YrahpneKUIJEUKDUU2333-51-06 11:43:00 11.9[facility] LwiisxbSBCOQPQZKI2630-31-07 11:43:000.4[facility] HermannHEMATOLOGY 2016-05-18 11:43:001+ *ABN*(05/18/16 5:43 AM)[facility] PqdpyrgFXKIZERFMT4454-89-68 11:43:000.2[facility] LissumoZNVWFUJIWY9821-73-83 11:43:000.6[facility] PBBCSIOLZC4016-52-24 11:43:0025.2[facility] BukmuiuRBAUXTFYBZ9955-22-71 11:43:00 59.4[facility] WbcfdtpJGFVFVZAJM8624-12-94 11:43:003.95[facility]annHEMATOLOGY 2016-05-18 11:43:005.4[facility] HdopexqKQYNSAQCFJ2874-90-78 11:43:46869Xcsrkkbn LcmscdzSPTYFDPZUJ8982-38-12 11:43:0014.1[facility] WbmhjceORHBZKMLOU4576-72-44 11:43:009.1[facility] HecwojeTVYCPRFUGV5864-13-40 11:43:30798.8[facility] MMOYSIYSBU1141-24-22 11:43:0033.5[facility] DtplnzoBJWJRXISUR6975-86-60 11:43:00 Test Item Value Reference Range Interpretation Comments MCH (test code = MCH) 35.1 pg 27.0-31.0 [facility] SysdkwvKOZNNNOORF3517-73-29 11:43:0041.3[facility] HermannHEMATOLOGY 2016-05-18 11:43:0013.9[facility] HermannCHEM IECFK9091-67-65 00:40:001.2[facility] UiegbqwPDSVUHPWMY4322-87-07 00:40:00<2.9[facility] BhdbiohLCTMEPCQBI3977-73-15 19:08:009.3[facility] IannouqYYEPJICNCS4093-41-54 19:08:74400Dlursmax [facility] XEWTEVNPHC9093-81-53 19:08:0014.3[facility] IgghogxHSQMCQQEJT3556-51-81 19:08:00 34.4[facility] BbqrdhgKUUDEDDRLL0031-01-77 19:08:0017.1[facility] HermannHEMATOLOGY 2016-05-17 19:08:004.78[facility] HnjfpufMJLRIDFCVM7392-87-90 19:08:008.4[facility] VdhfpinFPBLVPHPKO6653-58-49 19:08:00 Test Item Value Reference Range Interpretation Comments MCH (test code = MCH) 35.7 pg 27.0-31.0 [facility] GxwfaehPZMGIYBLJI8236-26-48 19:08:48738.6[facility] HermannHEMATOLOGY 2016-05-17 19:08:0049.6[facility] ZjdwgtvEAPJKELXZQ7244-28-85 19:08:001+ *ABN*(05/17/16 1:08 PM)[facility] UeurxgiXTRBOTJWLS1092-90-96 19:08:000.9[facility] VczcelwFNDUQGMNSD9835-87-57 19:08:000.1[facility] AspcnadSWWUMHBOVW1195-32-20 19:08:006.0[facility] LlfyhkeXYLRWBJGBH4138-48-24 19:08:001.1[facility] AHWPDIXJWH9295-73-03 19:08:001.3[facility] PzzibmmYWWWRAEXCG3718-81-60 19:08:000.5 [facility] QpilcfvUVKATNMESQ7583-27-60 19:08:0010.9[facility]MATOLOGY 2016-[facility]-17 19:08:0015.9[facility] TtfrpvcTTHIPVIOWB2931-60-82 19:08:0071.6[facility]annCHEM LRGJW7190-00-12 19:03:001.7[facility] QtrapyzPFVXCOZDIZRA3052-72-27 19:03:0018.3[facility] HuedgqoGFNIQJTBZYPS5641-06-53 19:03:006[facility] ASPIOOAIJDIO5744-08-47 19:03:003.7[facility] PglzzkwWKFGMMMNAXLX9346-32-09 19:03:001.0[facility] LzremfqVTSGAENDDKIM6409-73-86 19:03:0032[facility] ZCIFNJJJFRVG5156-14-48 19:03:003.7[facility] XayrrxgZRAACRLRDBNJ7251-81-23 19:03:0033[facility] VzdluviDDRIUQTQYLZB0441-20-69 19:03:0068[facility] EHWXWOICKICN2858-22-09 19:03:000.5[facility] ObuplfuIWPIFHMUHUEN9690-00-16 19:03:92959Qzajvcoy RbhtpqkLKZIUZPZAYVE7131-72-64 19:03:72429Rjotwpta [facility] YLWPWTXRTZYF1395-93-74 19:03:003.3[facility] EdmemlwYSZJNMCFWWWM3579-60-13 19:03:008.8[facility] YztrycuDGFRUBOAQZWY8043-88-40 19:03:0024[facility] XZRIUHUABUNU6294-93-10 19:03:007.4[facility] EeukewzQSCIESPNSRSR3011-33-92 19:03:000.89[facility] JvtaxbdMJIWNLLIBKOC2175-59-81 19:03:005[facility] XSZXGETCTXKP1983-49-44 19:03:0089[facility] BlacvatTYIDRUTBQXIW9160-50-39 19:03:00 87[facility]annCHEM DXUPN8934-93-57 19:27:0092[facility]annCHEM PANEL 2015-07-19 19:27:008.8[facility]annCHEM FZJPV9285-43-94 19:27:000.78[facility]annCHEM WHYHT6300-08-46 19:27:08872Qnrzbfvd HermannCHEM HHCSV4448-24-14 19:27:01112Fvvxprbz [facility]annCHEM IRGFK9897-89-98 19:27:0019[facility]annCHEM LRKSB8196-09-53 19:27:02049Wzinswcl HermannCHEM KCKUW8722-04-62 19:27:004.5 [facility]annCHE[facility] YUMTZ2310-12-26 19:27:0028[facility]annCHEM PANEL 2015-07-19 19:27:0011.5[facility] CuvmxigQGEBVKJTPO1762-30-14 19:27:001+ *ABN*(07/19/15 2:27 PM)[facility] XrpktygGCRJDCYXLS8116-76-00 19:27:000.2[facility] MdhqobjLBSRYWSJEF1797-74-89 19:27:0011.8[facility] RqrzmkpZLZJALNTUB4948-29-50 19:27:000.0[facility] PqfgxesYEDMEYJLLO5920-54-56 19:27:000.4[facility] PVDWXPRFRZ0014-77-01 19:27:001.4[facility] KsfoljhKYTWTPKNVY6538-84-93 19:27:000.3 [facility] FlwxzyyPWOTEAQPZS0848-68-34 19:27:002.0[facility]annHEMATOLOGY 2015-07-19 19:27:0093.2[facility] MrppbccTHGIZWXXCB8296-01-64 19:27:00Normal (07/19/15 2:27 PM)[facility] NomexzdOUFPZQCSJZ4099-62-93 19:27:00Normal (07/19/15 2:27 PM)[facility] GgqboilNXGEGIKZIF0054-68-18 19:27:000.0[facility]annHEMATOLOGY 2015-07-19 19:27:003.4[facility] JhnesohYLSHUFDOEQ4241-53-00 19:27:00 Test Item Value Reference Range Interpretation Comments MCH (test code = MCH) 32.9 pg 27.0-31.0 [facility] PobiifkIIUNCWYTAU0568-92-63 19:27:29823.1[facility]annHEMATOLOGY 2015-07-19 19:27:0032.6[facility] GzojkugHGGPPBZRDV2897-83-02 19:27:0012.6[facility] WrdppqtVFCULETMVI0307-81-29 19:27:004.21[facility] DbbkcgqTPBKYXINCI1691-77-10 19:27:0013.9[facility] EqdiwvnVTGNSUFQXG3512-80-43 19:27:0042.6[facility] TGZFWYITFO6962-51-99 19:27:008.4[facility] MnnwzdvDTWALUBXUR4816-00-50 19:27:70609 [facility] SaeydhuMINCGTNFDM0973-08-23 19:27:0014.6[facility] HermannELECTROLYTES 2015-07-16 10:10:009.3[facility] AlxxvbvHNBSHXMUKAYF2342-52-12 10:10:0014[facility] TxjeiyrOXEIDSPGKKJQ7486-37-36 10:10:003.2[facility] PhacdqcRRJUBJTURUKF0510-99-35 10:10:000.9[facility] LheddkaGZVZYVEBWGJI4258-05-53 10:10:004.3[facility] BGGDEYDNYEUP8692-46-31 10:10:84347Sjlpwewh UgdwrgdJKZCLEXSGXQV8195-67-81 10:10:99933Sbzpuwtg CuncfnyUNVFSFFMNFJN7641-31-69 10:10:0076[facility] WDANZHCSPWBF0578-52-65 10:10:45947Uhdzrxvi PwmnxrbUVEAVWEZQJRZ7567-43-20 10:10:0014[facility] UpgvmgwEXDOFUYEXUVW2267-22-22 10:10:001.01[facility] XNVVBMPDHEYQ8003-57-55 10:10:008.2[facility] VdwzmzmTLQPIGRVXDIB1114-45-71 10:10:0028[facility] RckeoxhXVTAIPYVKCNK3632-40-06 10:10:003.0[facility] CXDDPIJNICSM3941-29-27 10:10:0029[facility] XpfubhzUGUVIXBLYATE0029-21-32 10:10:00 6.2[facility] GllzgnvOLXFCDKHHEWQ8416-10-82 10:10:000.4[facility] RPBSOSWTLJJL3494-54-64 10:10:0036[facility] DxpyjahEFSSAXMECRUM2924-00-22 10:10:00 56[facility] VsreslcAMCSXYEXFU2717-24-33 10:10:002.3[facility]annHEMATOLOGY 2015-07-16 10:10:0010.4[facility] NugnpljBJMFYVQDZO8233-41-18 10:10:000.0[facility] ArvrrxqPTVMEJPLMA9154-75-23 10:10:003.2[facility] GxgrqwvIHHXOTPTJH9909-57-77 10:10:0094.5[facility] SndxyexRMTFPBZTYU0864-07-48 10:10:000.0[facility] JPACNTXYQG0045-30-04 10:10:000.0[facility] TrhphfbYAYEEGKVPV8768-83-11 10:10:000.0 [facility] EpwddneZTVHYEKYAJ5575-51-07 10:10:000.3[facility]annHEMATOLOGY 2015-07-16 10:10:000.3[facility] VplxcohAEUSYYQUTP0645-36-79 10:10:0033.3[facility] BmkwfcaEBMZJPDMTZ3328-03-10 10:10:008.4[facility] IzlyvprFZWXPSCYUR1394-66-09 10:10:44530Xokhpcbj FfcqenmCHEOQJQNNG1888-12-99 10:10:00 Test Item Value Reference Range Interpretation Comments MCH (test code = MCH) 33.6 pg 27.0-31.0 [facility] PsjlnmpBOZEYYVQUM6616-66-09 10:10:0015.5[facility]annHEMATOLOGY 2015-07-16 10:10:0013.6[facility] FnqealfEZPDOWAPCW0630-31-64 10:10:004.05[facility] WtbqyhnWSTGAHCIPG4139-31-17 10:10:32831.9[facility] LvjfgebOAZWLNUCHM2176-93-36 10:10:0040.9[facility] QulkvkiIJRKCVVTTP3675-26-57 10:10:0011.0[facility] CHEM VFDWF9501-56-34 23:15:0014[facility]annCHEM KJUOI7191-57-24 23:15:25018 [facility]annCHEM XEVAV8471-88-86 23:15:44455Wxxjsdie HermannCHEM PANEL 2015-07-15 23:15:96290Rrdpfhpp HermannCHEM EOFBL4588-88-97 23:15:004.1[facility]annCHEM GGEYI0069-75-23 23:15:0025[facility]annCHEM VMWZP4101-55-45 23:15:003.5[facility]annCHEM HTMLT2544-24-47 23:15:008.9[facility]annCHEM HAECY4374-26-69 23:15:0063[facility]annCHEM EQBQW2434-91-20 23:15:0035 [facility]annCHEM ADMHC6447-47-90 23:15:001.17[facility]annCHEM PANEL 2015-07-15 23:15:0040[facility]annCHEM ZQRBH5402-09-01 23:15:007.0[facility]annCHEM BRJZL8341-75-15 23:15:0066[facility]annCHEM VJRNY9751-97-54 23:15:000.4[facility]annCHEM FGIGJ7780-61-73 23:15:0015.1[facility]annCHEM SBBVI5446-72-59 23:15:003.5[facility]annCHEM DMWSR2000-52-62 23:15:001.0 [facility]annCHEM OOGAW0090-56-53 23:15:0012[facility]annHEMATOLOGY 2015-07-15 23:15:000.98[facility] BvdypveFUKFOCQRRO0467-65-50 23:15:00 Test Item Value Reference Range Interpretation Comments PT (test code = PT) 13.3 s 12.0-14.7 [facility] TcrweprXPIZONZKUR7082-11-85 23:15:57104Xpqcmjpp HermannHEMATOLOGY 2015-07-15 23:15:008.1[facility] UflstmqFMFXJZSRXO1772-10-59 23:15:0045.9[facility] PxkaojbZNVUXDTXHS4141-14-57 23:15:0032.4[facility] DxljbojHTLSYPUXVF0487-46-68 23:15:0015.2[facility] TzdhossZITJJYNODT4386-96-94 23:15:18935.9[facility] EIVUEKWRTO7894-15-24 23:15:00 Test Item Value Reference Range Interpretation Comments MCH (test code = MCH) 33.0 pg 27.0-31.0 [facility] FutanepTUYOOCTOEW4884-56-69 23:15:0017.8[facility]annHEMATOLOGY 2015-07-15 23:15:004.51[facility] RkqssghLGDJHSDIFC1593-71-10 23:15:0014.9[facility] HbvnswhUHDAZYMXNB5712-49-09 23:15:001.1[facility] BibvjxnWXVBLDHIZK9082-80-48 23:15:000.0[facility] TyjzmdjBICUNXTPBO9745-08-43 23:15:0015.4[facility] WBHTQXWJJU3540-82-56 23:15:001.4[facility] VgevtgoESIUKPKBCA0129-09-46 23:15:000.0 [facility] JlelikbRWPISMMNXH7548-22-53 23:15:000.0[facility]annHEMATOLOGY 2015-07-15 23:15:000.1[facility] OlknxqxVZXSURXWYN2263-64-50 23:15:001+ *ABN*(07/15/15 6:15 PM)[facility] QzvirymFKAIKCIQZV9455-19-34 23:15:006.0[facility] DrjwvjsHHDTISYHTM9334-55-15 23:15:00Normal (07/15/15 6:15 PM)[facility] LAWQRIFLWI2757-16-14 23:15:00Normal (07/15/15 6:15 PM)[facility]annHEMATOLOGY 2015-07-15 23:15:007.7[facility] KbpehqsMOBTWEWSZF4840-33-66 23:15:0086.2[facility]annCHEM CCUDS7373-05-81 10:30:0088[facility] HermannCHEM NSWXY0668-36-92 10:30:0011.4[facility]annCHEM FPNMD6413-55-43 10:30:008.9[facility]annCHEM WTCWL9209-19-83 10:30:0028[facility]annCHEM SIZOD4115-53-06 10:30:0010 [facility]annCHEM ESYDD5876-14-83 10:30:000.87[facility]annCHEM PANEL 2015-07-14 10:30:61951Cbjjlgor HermannCHEM TVUDQ1009-23-06 10:30:62251Qxkktqzy HermannCHEM GVJHZ4020-39-18 10:30:004.4[facility]annCHEM LJJCF5729-24-23 10:30:27343Nsvjnquz ZvogpwiTVHLUTHRBH9237-33-15 10:30:000.0[facility] UKSBVRMJEZ9501-59-95 10:30:000.0[facility] RvamffhDZYWLCFKVM6795-45-74 10:30:000.1 [facility] SdbogsyQJZTPDBYIQ9786-90-79 10:30:001.9[facility]annHEMATOLOGY 2015-07-14 10:30:0092.6[facility] DbroicmQEBTYSFEFE0599-62-34 10:30:005.5[facility] ArntajlQNOKLQTKWW3701-75-19 10:30:000.0[facility] TjbuttfETNLSMPQRA2797-67-37 10:30:000.0[facility] AdwvinmTHXRUPJTPH1000-38-89 10:30:005.1[facility] SMJPUKEZQW2808-38-63 10:30:000.3[facility] YvnedviYRXHXMWCYT4064-84-80 10:30:00 100.8[facility] GdedjvvCGBYSOFIOD8187-47-64 10:30:17925Zduqaqaq HermannHEMATOLOGY 2015-07-14 10:30:008.1[facility] HiwibjiRNLWBILVNE3581-57-44 10:30:0014.9[facility] McmmlihPETBTXBZGA9069-40-36 10:30:0013.6[facility] AvtvuerQIUKAAADWJ9415-66-72 10:30:004.11[facility] GczjaozOQRFXPGXHZ3302-47-25 10:30:0041.5[facility] TPAXDDTYQV1113-08-78 10:30:005.5[facility] JgmlwqvDILXRLOFCA3908-69-90 10:30:00 Test Item Value Reference Range Interpretation Comments MCH (test code = MCH) 33.0 pg 27.0-31.0 [facility] QaxqzvoIDNNWKDPBB3319-15-87 10:30:0032.7[facility] HermannCHEM PANEL 2015-07-14 01:11:0093[facility] HermannCHEM POBAO8570-33-47 01:11:000.76[facility] WuwpogbWBFOLYEUFT7209-10-73 01:11:37035Msjisxzw NwqcnhvJIJQJWWBZC4704-61-52 01:11:00 Test Item Value Reference Range Interpretation Comments PTT (test code = PTT) 26.6 s 22.9-35.8 [facility]annCARDIAC ATFVFPC0413-00-35 21:04:0070[facility] HermannCARDIAC KYHWINN6913-10-97 21:04:00<0.02[facility] HermannCARDIAC OAIJZWO3702-35-61 21:04:001.7[facility] HermannCARDIAC YPVGZMS0968-13-35 21:04:002.4[facility] CHEM ILLJG9104-36-94 21:04:0028[facility]annCHEM URBHT6420-12-98 21:04:0030 [facility]annCHEM LKBAE7929-02-09 21:04:003.0[facility]annCHEM PANEL 2015-07-13 21:04:006.6[facility]annCHEM FOJUZ8135-05-32 21:04:008.8[facility]annCHEM SNTLW4755-07-70 21:04:003.6[facility] HermannCHEM IRWKI9285-14-79 21:04:006[facility] HermannCHEM UIANA1541-74-17 21:04:0011.8[facility] HermannCHEM HXILK0169-05-08 21:04:000.4[facility] HermannCHEM LDHNF8107-22-94 21:04:0065 [facility]annCHEM UGMYA8779-07-47 21:04:005[facility]annCHEM PANEL 2015-07-13 21:04:70196Aziyrads HermannCHEM NFMPC2860-24-01 21:04:0029[facility] HermannCHEM LIXTM9228-34-38 21:04:26936Vsjzzilu HermannCHEM YOVNK5296-37-53 21:04:003.8[facility] HermannCHEM KIVBX5815-50-36 21:04:77578Olkdbeyc HermannCHEM VBOGJ1783-73-64 21:04:000.80[facility]annCHEM YPAAX6827-85-89 21:04:000.8 [facility]annCHEM NPRNH5596-83-24 21:04:0091[facility]annHEMATOLOGY 2015-07-13 21:04:008.5[facility] LcpcjaaUQCOMFKCRS1597-83-59 21:04:0015.2[facility] VufsolxSJEBAVWJWQ2593-98-87 21:04:13335Lvdhnmxh DoehhkkDNRSMFDRUU1004-33-59 21:04:0033.1[facility] FwgpqvxAXTBYPXBHS0982-70-37 21:04:005.8[facility] APGWVIYQCB8459-58-76 21:04:0099.9[facility] ScrislzPAAXEEGECS1591-20-85 21:04:00 Test Item Value Reference Range Interpretation Comments MCH (test code = MCH) 33.0 pg 27.0-31.0 [facility] BrzzaryPJXMSFGSSA5058-95-58 21:04:0042.8[facility]annHEMATOLOGY 2015-07-13 21:04:004.28[facility] DuqqghkXGXAAABSLW8657-47-81 21:04:0014.2[facility] SzbfbbsICBIIZROEX3717-66-09 21:04:005.8[facility] LdztzkqABQXLNZPGQ6994-78-60 21:04:000.0[facility] OoehhxyCENYWRCOGD6426-14-84 21:04:0010.7[facility] HITYVTGQMD8322-82-75 21:04:000.3[facility] FqanguwWFMZRNRTAX6320-12-15 21:04:000.6 [facility] NytjkacRYPLDBTIUX1791-55-07 21:04:000.0[facility]annHEMATOLOGY 2015-07-13 21:04:0083.4[facility] JqpicmaVSIROZEBGQ3758-29-37 21:04:004.8[facility] WhyjiowZTGOZYXXCX0680-13-46 21:04:000.1[facility] MowutnzAQYFWMHEVA9749-03-25 21:04:000.0[facility]annCHEM GZDKJ3598-63-57 10:54:002.2[facility]annCHEM SUESB9037-80-38 10:54:0091[facility]annCHEM MCIOI7381-28-38 10:54:003.1 [facility]annCHEM ECHWQ8006-19-02 10:54:000.9[facility]annCHEM PANEL 2015-05-06 10:54:54440Fpgraxjk HermannCHEM JXCTJ0304-09-92 10:54:000.3[facility]annCHEM IJISH5287-17-98 10:54:0014.1[facility]annCHEM ZSGRM8201-17-56 10:54:0025[facility]annCHEM UENOR8646-25-91 10:54:000.79[facility]annCHEM YTIMZ4128-02-16 10:54:0020[facility]annCHEM YNJIL3534-59-77 10:54:0025 [facility]annCHEM ZNQRI9506-89-07 10:54:008.4[facility]annCHEM PANEL 2015-05-06 10:54:006.0[facility]annCHEM VAESB8593-46-36 10:54:002.9[facility]annCHEM VSUGT6922-49-29 10:54:0074[facility]annCHEM WHROL5133-49-32 10:54:0022[facility]annCHEM SQTMX0663-90-42 10:54:0046[facility]annCHEM RMROG4154-81-87 10:54:004.1[facility]annCHEM YOCMW4304-32-39 10:54:62834 [facility]annCHEM LHNHM1901-76-53 10:54:62412Nipbwwaq HermannHEMATOLOGY 2015-05-06 10:54:0014.1[facility] UkehcasIXLCESHSII2140-01-89 10:54:004.17[facility] YtglvhkPOHPLXUIQQ7105-79-88 10:54:0013.8[facility] XkynfirXHFUDDAUGO6790-91-36 10:54:0033.5[facility] BwuhjyoQKWWWFHHAV4791-71-72 10:54:008.9[facility] XGGJUVTMQS4329-78-54 10:54:73538Oshdpgfu ZvbbuknREFHCSUMVS9704-78-53 10:54:00 13.0[facility] SttmkjiSHYKQCWQRR3119-17-49 10:54:0042.0[facility]annHEMATOLOGY 2015-05-06 10:54:00 Test Item Value Reference Range Interpretation Comments MCH (test code = MCH) 33.8 pg 27.0-31.0 [facility] NekeiptXQWJJOJHSA0607-11-30 10:54:44834.7[facility]annHEMATOLOGY 2015-05-04 23:48:0033.5[facility] ShpdkoaXLYMEKSOMT1100-97-92 23:48:0015.2[facility] FtjimfgCSYXPITZAA2483-75-66 23:48:004.50[facility] AcxydomXXCONGIOOX4043-08-47 23:48:0012.5[facility] LkelnqiFZGHNRPPVY8408-88-35 23:48:54987Fqwxlpmj [facility] VUNXEAJQKS9105-44-87 23:48:0014.0[facility]annCHEM MADFJ3270-01-60 23:48:0072 [facility]annCHEM LCJBY0752-72-48 23:48:001.05[facility]annCHEM PANEL 2015-05-04 23:48:99301Pbhnuzbu HermannCHEM OHQHJ1827-61-06 23:48:0022[facility]annCHEM RZNMP4885-35-31 23:48:96274Kfysbrnf HermannCHEM KBBOF6476-71-12 23:48:008.7[facility]annCHEM ASFLN6359-92-73 23:48:0029[facility]annCHEM KZCCJ6296-16-13 23:48:004.3[facility] HermannCHEM XGBZP4965-49-82 23:48:30617 [facility]annCHEM UAEXY5068-63-14 23:48:0011.3[facility]annHEMATOLOGY 2015-05-04 23:48:0045.4[facility] CuhigkdGMMFSJJEIE9464-54-61 23:48:00 Test Item Value Reference Range Interpretation Comments MCH (test code = MCH) 33.8 pg 27.0-31.0 [facility] PyyburiRAIPKSBNFY3733-58-06 23:48:97937.0[facility]annHEMATOLOGY 2015-05-04 23:48:008.7[facility] UyevptzROQNIJDYVRCL9339-81-88 19:10:0011.8 [facility] WmeaysyPUBKCKDNNFCM7852-26-20 19:10:39548Yzkedivl HermannELECTROLYTES 2013-05-16 19:10:54490Lpslficp JqmewktQRADATDBIHCG8060-77-57 19:10:003.8[facility] YovywmrBXENLJWOKMAF3335-92-34 19:10:0088[facility] BhnjxvfHIKOGFHUITON7837-68-51 19:10:57983Ctiyekmq ZhcoldcYOEOQDONKDYF5650-57-61 19:10:0027[facility] MCSHTGZPTJFJ0100-44-69 19:10:008.9[facility] FovackdWPIQTYFHSFWP5863-80-56 19:10:0010[facility] HcqllenMRZRZLNDRCSR8252-95-31 19:10:000.9[facility] OTYISYWHPE6449-08-51 19:10:000.6[facility] SpollxsYPUPINIQFR6808-10-72 19:10:000.1 [facility] NsyslkkPPCQYIOLKA1378-91-50 19:10:000.0[facility] HermannHEMATOLOGY 2013-05-16 19:10:001.6[facility] AwqmvlaMJAOSPOQZF9353-87-26 19:10:007.2[facility] CjgjfxvMESTWZHHII6601-91-55 19:10:006.2[facility] YrqcknhRXKKQOXINE0153-84-52 19:10:000.2[facility] LadeojcBDYKVOTRSK8052-76-59 19:10:001.1[facility] RCJFOWLTZP3431-84-39 19:10:0014.2[facility] NpvfnyjAVHXKIAKEH5869-81-32 19:10:00 76.8[facility] NzyajbtQDQZBUTXAK6883-35-04 19:10:0098.1[facility]annHEMATOLOGY 2013-05-16 19:10:0013.9[facility] XwahuqjOYNOGCMABT7505-95-57 19:10:00 Test Item Value Reference Range Interpretation Comments MCH (test code = MCH) 33.3 pg 27.0-31.0 [facility] BrkbzwaLQROTMCHRX8894-79-33 19:10:0040.9[facility] HermannHEMATOLOGY 2013-05-16 19:10:0034.0[facility] VfzbybqPXIFSFMJQN4991-57-08 19:10:66026Jfdpzfcs OqxiodwIHGNVDJYSK3651-94-44 19:10:0013.7[facility] DlxgjptANLPCWSVGY8325-79-90 19:10:008.9[facility] LynntqtPIKTAINIVT1696-33-74 19:10:004.17[facility] OPUAHWVHCQ8569-93-17 19:10:008.0[facility] YcksuiuFDXUEWZRQI7416-98-56 08:55:40 Slight *ABN*(09/12/2012 03:55:40)[facility] QnskadkBTVJXTNCOY8248-57-49 08:55:40 Slight *ABN*(09/12/2012 03:55:40)[facility] FeqxtdfCZJCNQKJFB3467-14-29 08:55:40 Slight *ABN*(09/12/2012 03:55:40)[facility] RudkujgCCCLVTGTIJ7511-71-08 08:55:40 0.0[facility] YfaupnqCOGEGVEYYG7238-02-09 08:55:401+ *ABN*(09/12/2012 03:55:40) [facility] JicxvvuDHTHCRRPLL3272-50-18 08:55:400.5[facility] HermannHEMATOLOGY 2012-09-12 08:55:400.0[facility] ZkdjfyjRSILQEFFLY9605-04-74 08:55:400.8[facility] HdzttkmPQDALUCCYO0493-15-72 08:55:404.6[facility] KjxqgmeEKLKUVARAB6025-10-93 08:55:403.1[facility] RmoyidwVITLXUNNTX7848-88-97 08:55:4015.4[facility] URSEYCSYYJ7758-32-33 08:55:400.0[facility] EjliwakWOUCPTBTXY8467-68-11 08:55:400.0 [facility] XvwyfwuZWHDCYCWXC3532-78-37 08:55:40Normal (09/12/2012 03:55:40) [facility] LjzuiisLIVMUUDUIO1041-78-59 08:55:4092.3[facility] HermannHEMATOLOGY 2012-09-12 08:55:400.0[facility] SvmyjfiWXJURVHBUB4006-51-73 08:55:409.3[facility] JuljnxvTPSNRITGUT7716-73-47 08:55:4040.0[facility] NlzkixvVWSMVZEHPL4451-34-41 08:55:4097.4[facility] UoerdunDUYEHACSJJ5936-63-94 08:55:40 Test Item Value Reference Range Interpretation Comments MCH (test code = MCH) 32.4 pg 27.0-31.0 H [facility] PnsmrcwIYPYZIDHCT2914-56-68 08:55:4013.3[facility] HermannHEMATOLOGY 2012-09-12 08:55:4016.7[facility] KdnibebMGYOVLADYB7186-69-89 08:55:404.11[facility] JaaqickQYJDDSDOBP1436-17-36 08:55:4033.3[facility] SptmjozFKAGAFDPRO7700-61-59 08:55:4015.0[facility] OhiszecTHJIFBVDSN0364-59-71 08:55:70989Fbzxgppj Damien KILGIBNXI8022-99-31 17:30:0078[facility] SknaruqQNNBLOHQA9063-02-53 17:30:45210 [facility] BqkmspfLHKBCQXWM4397-73-94 17:30:0027[facility]annCHEMISTRY 2012-09-11 17:30:001.0[facility] SrgrzqfOCTLIHABG7163-99-43 17:30:009.0[facility] MohgcvuFCHVXWNAN3075-60-35 17:30:48033Ffuuuxgx XxweyfpEHBSPOFNH5015-41-14 17:30:004.4[facility] IboukfvHJQAJJSYA5762-37-31 17:30:0015[facility] Damien SYPGEMRIK6213-83-57 17:30:08901Owjmfokx YcrzjyhYJLPCEGCT9117-52-27 17:30:0014.4 [facility] IiibsnaWLASZJYKRR8270-90-79 17:30:0014.7[facility]annHEMATOLOGY 2012-09-11 17:30:0096.9[facility] YopckfsDBLIXNSNIX3826-13-59 17:30:0043.9[facility] GlauplyEWMCEGKRRC5421-30-02 17:30:0033.4[facility] XuiedmjUBAVLSDVEM4299-51-48 17:30:00 Test Item Value Reference Range Interpretation Comments MCH (test code = MCH) 32.4 pg 27.0-31.0 H [facility] JdlrtizYYATETAWMV2144-78-29 17:30:0015.1[facility]annHEMATOLOGY 2012-09-11 17:30:34936Nuoorffi WjarljoXIUNWUWNWI7603-10-82 17:30:009.5[facility] OmuuquzPEIXVABOSJ3209-19-02 17:30:0018.4[facility] OhxqnkpIBWIGKTGLU9318-44-42 17:30:004.53[facility] KhvsodzNJAZSEULCR6592-40-96 17:30:000.0[facility] Damien PFTRQNOWDB8929-55-31 17:30:000.0[facility] VcgcrorYTKQHXHNXR7675-43-95 17:30:000.6 [facility] CqqvcavYVDNUOIQSW6765-12-65 17:30:003.2[facility] HermannHEMATOLOGY 2012-09-11 17:30:0017.1[facility] CiovxhnWFXMRWYCKT9938-82-23 17:30:000.7[facility] XzgrjtbOLAFQHJMIK8870-52-94 17:30:000.0[facility] MhjpedgZAMGWGLMYA1269-25-96 17:30:000.0[facility] TnkxmojJRIRRNHRFO0450-31-76 17:30:0092.9[facility] SBWUUNRMFV7733-39-55 17:30:00Normal (09/11/2012 12:30:00)[facility] ZGKPUWMJZR0743-32-25 17:30:003.9[facility] WegdyqhOFNGSKLXII3999-10-75 17:30:00 Normal (09/11/2012 12:30:00)[facility]
[2020-09-11 16:43] LABS: Absolute Lymphocytes (CBC) 0.2 K/uL (0.7-4.9); Basophils % 0.1 % (0-1.3); Hematocrit 33.6 % (39.6-49.0); Lymphocytes % 1.8 % (15.3-44.8); MPV 8.7 fL (7.6-11.3); RBC Red Blood Cell Count 3.49 M/uL (4.33-5.43)
[2020-09-11 16:45] LABS: Protime INR 1.03
[2020-09-11] MEDS ORDERED: METHYLPREDNISOLONE 125 MG INJ ONE (16:47)
[2020-09-11 17:02] LABS: Blood Morphology Comment NOT SEEN (NOT SEEN); Platelet Estimate ADEQ; White Blood Cell Scan OK (OK)
[2020-09-11 17:04] LABS: ALT/SGPT 21 U/L (12-78); AST/SGOT 21 U/L (15-37); Albumin 2.9 g/dL (3.4-5.0); Alkaline Phosphatase 69 U/L (45-117); BUN Blood Urea Nitrogen 15 mg/dL (7-18); Bicarbonate 31 mmol/L (21-32); Bilirubin Direct 0.1 mg/dL (0-0.2); Bilirubin Total 0.4 mg/dL (0.2-1.0); Glucose Level 114 mg/dL (74-106); Magnesium 2.2 mg/dL (1.8-2.4); NT PRO-BNP 142 pg/mL (<125); Potassium 4.6 mmol/L (3.5-5.1); Protein, Total 7.2 g/dL (6.4-8.2); Sodium Level 132 mmol/L (136-145); Troponin (Emerg Dept Use Only) < 0.02 ng/mL (0.0-0.045)
--- NOTE | 2020-09-11 17:41 | RAD REPORT ---
EXAM DESCRIPTION: CT - Soft Tissue Neck W/Contr - 09/11/2020 5:22 pm CLINICAL HISTORY: Neck pain/difficulty breathing/airway obstruction COMPARISON: April 2022 TECHNIQUE: Computed axial tomography of the neck was obtained. 50 cc Isovue 300 was administered in travenously. Coronal and sagittal reconstruction was performed. All CT scans are performed using dose optimization technique as appropriate and may include automated exposure control or mA/KV adjustment according to patient size. FINDINGS: Mild asymmetric soft tissue left lateral oropharyngeal wall. Remainder of the pharynx, la rynx and subglottic trachea appear unremarkable The parotid, submandibular and thyroid glands appear unremarkable. Previously described a lymph node adjacent to angle of the left mandible has markedly decreased in si ze measuring 5 millimeter short axis. No worrisome lymphadenopathy seen. Fluid within the sinuses/mastoids is not noted IMPRESSION: Mild asymmetric soft tissue left lateral oropharyngeal wall equivocal for a subtle mass. Direct visualization recommended
--- NOTE | 2020-09-11 17:41 | RAD REPORT ---
EXAM DESCRIPTION: Kamran Single View09/11/2020 4:27 pm CLINICAL HISTORY: Shortness of breath COMPARISON: July 2020 FINDINGS: Lungs are moderately hyperaerated. The lungs appear clear of acute infiltrate. The heart is normal size IMPRESSION: COPD without visualization of an abnormality
--- NOTE | 2020-09-11 18:06 | ER ---
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 + SOB, sent in by his doctor in [place]. No fever. Coronavirus screen: Client denies travel out of the [place] in the last 14 days. At this time, the client does not indicate any symptoms associated with coronavirus-19. Ebola Screen: Patient denies travel to an Ebola-affected area in the 21 days before illness onset. Initial Sepsis Screen: Does the patient meet any 2 criteria? RR > 20 per min. HR > 90 bpm. Does the patient have a suspected source of infection? Yes: Other: throat swelling. Risk Assessment: Do you want to hurt yourself or someone else? Patient reports no desire to harm self or others. Onset of symptoms was September 10, 2020. 16:00 Method Of Arrival: Wheelchair ll1 16:00 Acuity: GUANACO 2 ll1 Historical: - Allergies: 16:03 Keflex; ll1 16:03 Sulfa (Sulfonamide Antibiotics); ll1 - PMHx: 16:03 Emphysema; ESSENTIAL TREMORS; Hypertension; Hypertension; High Cholesterol; esophageal ll1 cancer; COPD; COPD; EDEMA; meningitis; CAD; Pneumonia; Asthma; - PSHx: 16:03 stent in leg; ll1 - Immunization history:: Flu vaccine is up to date. - Social history:: Smoking status: Patient reports the use of cigarette tobacco products, smokes one pack cigarettes per day. Screenin:39 Abuse screen: Denies threats or abuse. Denies injuries from another. Nutritional tr6 screening: No deficits noted. Tuberculosis screening: No symptoms or risk factors identified. Fall Risk None identified. Assessment: 17:28 General: Appears uncomfortable, slender, well groomed, Behavior is calm, cooperative, tr6 appropriate for age. Pain: Denies pain. Neuro: No deficits noted. Cardiovascular: Rhythm is regular. Respiratory: Airway is patent Respiratory effort is labored, Breath sounds are coarse Breath sounds with rales bilaterally. GI: Abdomen is peg tube present. : No deficits noted. EENT: No deficits noted. Derm: No deficits noted. Musculoskeletal: No deficits noted. 20:27 Reassessment: Patient and/or family updated on plan of care and expected duration. Pain ea level reassessed. Patient is alert, oriented x 3, equal unlabored respirations, skin warm/dry/pink. [facility] EMS at facility for transfer pt left ED via stretcher per EMS. Pt tolerating well. Vital Signs: 16:00 BP 127 / 69; Pulse 94; Resp 24; Temp 99.3; Pulse Ox 100% ; Weight 64.41 kg; Height 6 ll1 ft. 0 in. (182.88 cm); Pain 0/10; 17:00 BP 124 / 70; Pulse 86; Resp 24; Pulse Ox 97% ; sv 20:29 BP 128 / 60; Pulse 80; Resp 22; Pulse Ox 97% ; ea 16:00 Body Mass Index 19.26 (64.41 kg, 182.88 cm) ll1 ED Course: 15:40 Patient arrived in ED. wm 16:02 Triage completed. ll1 16:02 Arm band placed on Patient placed in an exam room, on a stretcher. ll1 16:13 Yoni García MD is Attending Physician. kdr 16:16 Betsy Gonzalez, YULISA is Primary Nurse. tr6 16:27 XRAY Chest (1 view) In Process Unspecified. EDMS 16:38 attempted to initiate a transfer with Niki from the [facility] transfer center/ per yakov Prince they are at capacity and are not taking any transfers at this time. 16:39 Resting quietly. transfer Awaiting lab results. tr6 16:39 Patient has correct armband on for positive identification. Bed in low position. Call tr6 light in reach. Side rails up X2. personnel monitor on. Pulse ox on. NIBP on. Door closed. Noise minimized. Visitors limited. Lights dimmed. Moved to private room. Warm blanket given. 16:39 Inserted saline lock: 20 gauge in right wrist, using aseptic technique. Blood collected.tr6 16:39 No provider procedures requiring assistance completed. tr6 16:[address] Henry at [phone]/. eb 16:58 connected the Head and Neck Doctor precast concrete ironworker for Dr. Henry with Dr. García. for eb patient consultation. 17:[address] Albright the head of Head and Neck Surgery for dr. García at [phone]. eb 17:[address] tr6 17:22 CT Soft Tissue Neck W/contr In Process Unspecified. EDMS 17:55 initiated a transfer with Marianne Sheldon Rn from the [facility]. eb 18:17 connected the ENT Doctor precast concrete ironworker for [facility] with Dr. García for eb patient transfer consultation. 18:20 Dr. Albright called back from [facility] to speak with Dr. García regarding the pt tt3 transfer request. 18:34 Called [facility] and was connected with Niki. Was informed that their tt3 ER was at saturation and could not accept any new pts. Informed Niki that Dr. Albright has spoken with Dr. García regarding the transfer request and instructed us to call and initiate the request. Niki stated she would call Dr. Albright to inform her of the saturation status and the denial of the transfer request. 18:40 Marianne from [facility] called back with their ED physician to speak with Dr. García tt3 regarding the transfer request. 18:47 Marianne Friend from [facility] called to give admin approval. The pt is going to tt3 [facility] ER. The accepting physician is Dr. Hurley. Nurse to call report to . Face sheet to be faxed to [phone]. 18:48 IV discontinued, intact, bleeding controlled, No redness/swelling at site. Pressure tr6 dressing applied. Administered Medications: 16:39 Drug: SOLU-Medrol (methylPrednisoLONE) 125 mg Route: IVP; Site: right wrist; tr6 20:01 Follow up: Response: No adverse reaction ea Outcome: 17:30 Transferred tr6 18:05 ER care complete, transfer ordered by . kdr 18:47 Condition: stable tr6 18:47 Instructed on the need for transfer, Demonstrated understanding of instructions, follow-up care, medications. 20:29 Patient left the ED. jm8 Signatures: Dispatcher [employer] Ester Colón, RN RN Yoni García MD MD [facility] Jovita Pena RN RN Kate Abebe Lynsay RN RN 1 Anuj Hernandez tt3 Noah Carvajal RN RN jm8 Betsy Gonzalez RN RN 6 Jonelle Pavon
--- NOTE | 2020-09-11 18:06 | EDPHYS ---
Physician Documentation [facility] Name: Bossman Gooden Age: 75 yrs Sex: Male : 1945 Arrival Date: 09/11/2020 Time: 15:40 Bed 7 Private MD: ED Physician Yoni García HPI: 09/11 17:55 This 75 yrs old Male presents to ER via Wheelchair with complaints of kdr Breathing Difficulty. 17:55 The patient has shortness of breath at rest, With neck flexion. Onset: The kdr symptoms/episode began/occurred gradually, 24 hour(s) ago. Duration: The symptoms are intermittent, With neck flexion. The patient's shortness of breath is aggravated by Neck flexion. Associated signs and symptoms: The patient has no apparent associated signs or symptoms. Severity of symptoms: At their worst the symptoms were incapacitating in the emergency department the symptoms are unchanged. The patient has not experienced similar symptoms in the past. The patient has been recently seen by a physician: The patient was being prepped for surgical intervention when he was offered an alternative intervention and treatment plan which he accepted. Subsequently the alternative treatment plan was not available and he was directed back to the original plan for surgical intervention. He was to get two more rounds of chemo prior to surgery but over the last 24 hours, he has had increasing difficulty with his airway especially when he flexes his neck which results in occlusion of his airway. Historical: - Allergies: 16:03 Keflex; ll1 16:03 Sulfa (Sulfonamide Antibiotics); ll1 - PMHx: 16:03 Emphysema; ESSENTIAL TREMORS; Hypertension; Hypertension; High Cholesterol; esophageal ll1 cancer; COPD; COPD; EDEMA; meningitis; CAD; Pneumonia; Asthma; - PSHx: 16:03 stent in leg; ll1 - Immunization history:: Flu vaccine is up to date. - Social history:: Smoking status: Patient reports the use of cigarette tobacco products, smokes one pack cigarettes per day. ROS: 17:55 Constitutional: Negative for fever, chills, and weight loss, Eyes: Negative for injury, kdr pain, redness, and discharge, ENT: Negative for injury, pain, and discharge, Cardiovascular: Negative for chest pain, palpitations, and edema, Respiratory: Negative for shortness of breath, cough, wheezing, and pleuritic chest pain, Abdomen/GI: Negative for abdominal pain, nausea, vomiting, diarrhea, and constipation, Back: Negative for injury and pain, : Negative for injury, bleeding, discharge, and swelling, MS/Extremity: Negative for injury and deformity, Skin: Negative for injury, rash, and discoloration, Neuro: Negative for headache, weakness, numbness, tingling, and seizure activity. Psych: Negative for depression, anxiety, suicide ideation, homicidal ideation, and hallucinations, Allergy/Immunology: Negative for hives, rash, and allergies, Endocrine: Negative for neck swelling, polydipsia, polyuria, polyphagia, and marked weight changes, Hematologic/Lymphatic: Negative for swollen nodes, abnormal bleeding, and unusual bruising. 17:55 Neck: Positive for No stridor - just occlusion of his airway when neck flexion. Exam: 17:55 Constitutional: This is a well developed, well nourished patient who is awake, alert, kdr and in no acute distress. Head/Face: Normocephalic, atraumatic. Chest/axilla: Normal chest wall appearance and motion. Nontender with no deformity. No lesions are appreciated. Cardiovascular: Regular rate and rhythm with a normal S1 and S2. No gallops, murmurs, or rubs. Normal PMI, no JVD. No pulse deficits. 17:55 Neck: External neck: is normal, ROM/movement: limited range of motion, that is mild, with flexion, His airway becomes occluded when flexed. He then has mild difficulty clearing secretions for a short period of time. Meningeal signs: are not present, nuchal rigidity, is not appreciated. Vital Signs: 16:00 BP 127 / 69; Pulse 94; Resp 24; Temp 99.3; Pulse Ox 100% ; Weight 64.41 kg; Height 6 ll1 ft. 0 in. (182.88 cm); Pain 0/10; 17:00 BP 124 / 70; Pulse 86; Resp 24; Pulse Ox 97% ; sv 20:29 BP 128 / 60; Pulse 80; Resp 22; Pulse Ox 97% ; ea 16:00 Body Mass Index 19.26 (64.41 kg, 182.88 cm) ll1 MDM: 17:55 Data reviewed: vital signs, nurses notes, lab test result(s), radiologic studies. kdr Counseling: I had a detailed discussion with the patient and/or guardian regarding: the historical points, exam findings, and any diagnostic results supporting the discharge/admit diagnosis, lab results, radiology results, the need to transfer to another facility. 18:05 Patient medically screened. kdr 09/11 16:13 Order name: Basic Metabolic Panel; Complete Time: 17:52 kdr 09/11 16:13 Order name: CBC with Diff; Complete Time: 17:52 kdr 09/11 16:13 Order name: LFT's; Complete Time: 17:52 kdr 09/11 16:13 Order name: Magnesium; Complete Time: 17:52 kdr 09/11 16:13 Order name: NT PRO-BNP; Complete Time: 17:52 kdr 09/11 16:13 Order name: PT-INR; Complete Time: 17:52 kdr 09/11 16:13 Order name: Troponin (emerg Dept Use Only); Complete Time: 17:52 kdr 09/11 16:13 Order name: XRAY Chest (1 view); Complete Time: 17:52 kdr 09/11 16:13 Order name: EKG; Complete Time: 16:14 kdr 09/11 16:13 Order name: Cardiac monitoring; Complete Time: 16:35 kdr 09/11 16:13 Order name: EKG - Nurse/Tech; Complete Time: 16:35 kdr 09/11 16:23 Order name: CT Soft Tissue Neck W/contr; Complete Time: 17:52 kdr 09/11 17:02 Order name: CBC Smear Scan; Complete Time: 17:52 EDMS 09/11 16:13 Order name: IV Saline Lock; Complete Time: 16:35 kdr 09/11 16:13 Order name: Labs collected and sent; Complete Time: 16:35 kdr 09/11 16:13 Order name: O2 Per Protocol; Complete Time: 16:16 kdr 09/11 16:13 Order name: O2 Sat Monitoring; Complete Time: 16:16 kdr Administered Medications: 16:39 Drug: SOLU-Medrol (methylPrednisoLONE) 125 mg Route: IVP; Site: right wrist; tr6 20:01 Follow up: Response: No adverse reaction ea Disposition Summary: 09/11/20 18:05 Transfer Ordered Transfer Location: Other Acute Care Facility kdr Reason: Higher level of care kdr Condition: Fair kdr Problem: an acute exacerbation kdr Symptoms: are unchanged kdr Accepting Physician: 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: kdr kdr 20:29 18:21 [facility]: ENT kdr jm8
[2020-09-11 21:23] VITALS: TEMP 99.3
[2020-09-11 21:24] VITALS: O2SAT 97
[2020-09-11 21:26] VITALS: BP 128/60
--- NOTE | 2020-09-12 10:27 | EKG ---
Test Date: 2020-09-11 Test Time: 16:30:51 [employer] Wafer: ANDREA MEASUREMENT RESULTS: Intervals: Rate: 93 MI: 142 QRSD: 72 QT: 366 QTc: 455 [place]: P: 106 MI: 142 QRS: 77 T: 88 INTERPRETIVE STATEMENTS: Normal sinus rhythm Nonspecific ST abnormality Abnormal ECG Compared to ECG 08/01/2020 19:13:10 ST (T wave) deviation now present Electronically Signed On 09-12-20 10:25:37 CDT by Flaco Guallpa
== END 2020-09-11 20:29 ==
LOC: ER 15:37
DX: C76.0 Malignant neoplasm of head, face and neck (principal); I10 Essential (primary) hypertension; F17.210 Nicotine dependence, cigarettes, uncomplicated; Z88.1 Allergy status to other antibiotic agents; Z88.2 Allergy status to sulfonamides
CPT/HCPCS: 93005; 85025; 80048; 36415; 83735; 85610; 80076; 84484; 83880; 70491; 71045; 96374; 99285; Q9967; J2930